=== PATIENT | male | born 1940 | race Caucasian/White ===

== ENCOUNTER 2017-06-03 01:58 | Inpatient (IN) | payer MEDICAID ==
[2017-06-03] VITALS (7 sets, daily range): BP systolic 97–121; BP diastolic 54–89
[~2017-06-03] VITALS: Ht 177.8 cm; Wt 81.6 kg
[2017-06-03] MEDS ORDERED: Albuterol/Ipratropium 3ml neb HHN ONE (02:30)
[2017-06-03] MEDS ORDERED: Acetaminophen 650 MG SUPP RECTAL ONE (02:30)
[2017-06-03 02:33] LABS: HEMATOCRIT 52.6 % (42.0-52.0); HEMOGLOBIN 17.4 G/DL (14.2-18.0); MEAN CORPUSCULAR VOLUME 92 FL (80-99); PLATELET COUNT 257 K/UL (150-450); RED BLOOD COUNT 5.71 M/UL (4.70-6.10); RED CELL DISTRIBUTION WIDTH 12.4 % (11.6-14.8); WHITE BLOOD COUNT 10.4 K/UL (4.8-10.8)
[2017-06-03 02:41] LABS: INR 1.1 (0.9-1.1)
[2017-06-03 02:44] LABS: APPEARANCE,URINE VERY CLOUDY; BILIRUBIN, URINE NEGATIVE (NEGATIVE); COLOR,URINE YELLOW; GLUCOSE, URINE (UA) NEGATIVE (NEGATIVE); KETONES,URINE NEGATIVE (NEGATIVE); LEUKOCYTE ESTERASE ,URINE 3+ (NEGATIVE); NITRITE,URINE POSITIVE (NEGATIVE); PH,URINE 6 (4.5-8.0); PROTEIN,URINE 3+ (NEGATIVE); UROBILINOGEN,URINE NORMAL MG/DL (0.0-1.0)
[2017-06-03] MEDS ORDERED: ATORVASTATIN CA40 MG ORAL (03:08)
[2017-06-03] MEDS ORDERED: VITAMIN C250 MG ORAL (03:08)
[2017-06-03] MEDS ORDERED: COREG6.25 MG ORAL (03:08)
[2017-06-03] MEDS ORDERED: ALTACE5 MG ORAL (03:08)
[2017-06-03] MEDS ORDERED: MULTIVITAMINS1 EAC2 ORAL (03:08)
[2017-06-03] MEDS ORDERED: PLAVIX75 MG ORAL (03:08)
[2017-06-03] MEDS ORDERED: LOVENOX10 MG SUBQ (03:08)
[2017-06-03] MEDS ORDERED: VITAMIN B COMP1 EAC2 ORAL (03:08)
[2017-06-03] MEDS ORDERED: VITAMIN D400 INTLU ORAL (03:08)
[2017-06-03] MEDS ORDERED: ISOSORBIDE MONO30 M1 PO (03:08)
[2017-06-03] MEDS ORDERED: NITROGLYCERIN0.4 MG SL (03:08)
[2017-06-03] MEDS ORDERED: Cefepime HCl 1 GM in D5W 55 ML IVPB ONE (03:15)
[2017-06-03 03:29] LABS: ANION GAP 12 mmol/L (5-15); BLOOD UREA NITROGEN 18 mg/dL (7-18); CALCIUM 7.3 MG/DL (8.5-10.1); CARBON DIOXIDE 27 MMOL/L (21-32); CHLORIDE 105 MMOL/L (98-107); CREATININE 1.1 MG/DL (0.55-1.30); POTASSIUM 3.5 MMOL/L (3.5-5.1); SODIUM 144 MMOL/L (136-145)
[2017-06-03 03:43] LABS: ALANINE AMINOTRANSFERASE 112 U/L (12-78); ALBUMIN 2.8 G/DL (3.4-5.0); ALBUMIN/GLOBULIN RATIO 0.9 (1.0-2.7); ALKALINE PHOSPHATASE 168 U/L (46-116); ASPARTATE AMINO TRANSFERASE 115 U/L (15-37); BILIRUBIN,TOTAL 1.3 MG/DL (0.2-1.0); CKMB 1.8 NG/ML (0.0-3.6); CREATINE KINASE 59 U/L (26-308)
[2017-06-03 03:46] LABS: BILIRUBIN,DIRECT 0.8 MG/DL (0.0-0.3)
[2017-06-03] MEDS ORDERED: Cefepime 1gm vial ONE (03:47)
--- NOTE | 2017-06-03 04:28 | Emergency Room Report ---
History of Present Illness General Chief Complaint: Dyspnea/Respdistress Source: Medical Record, EMS Present Illness HPI This is a 76-year-old male who lives in a retirement. Has history of COPD and PE in the past. He present with chief complaint of altered mental status and fever. Onset today. No nausea vomiting. He is weaker his usual baseline. No cough or congestion. Allergies: Coded Allergies: No Known Allergies (Unverified , 06/03/17) Patient History Past Medical History: see triage record, old chart reviewed Past Surgical History: other Pertinent Family History: none Social History: Denies: drug use Immunizations: other Reviewed Nursing Documentation: PMH: Agreed, PSxH: Agreed Review of Systems Constitutional: Reports: fever, weakness Eye: Denies: eye pain, blurred vision ENT: Denies: ear pain, nose congestion, throat swelling Respiratory: Denies: cough, shortness of breath Cardiovascular: Denies: chest pain, palpitations Gastrointestinal: Denies: abdominal pain, diarrhea, nausea, vomiting Musculoskeletal: Denies: back pain, joint pain Skin: Denies: rash Neurological: Denies: headache, numbness Endocrine: Denies: increased thirst, increased urine Hematologic/Lymphatic: Denies: easy bruising All Other Systems: negative except mentioned in HPI Physical Exam Vital Signs Date Time Temp Pulse Resp B/P (MAP) Pulse Ox O2 Delivery O2 Flow Rate FiO2 06/03/17 01:58 101.5 150 28 114/81 94 Nasal Cannula 4.0 06/03/17 02:25 36 vitals with fever and tachycardia Sp02 EP Interpretation: abnormal General Appearance: moderate distress, lethargic Head: normocephalic, atraumatic Eyes: bilateral eye PERRL, bilateral eye EOMI ENT: hearing grossly normal, dry mucus membranes Neck: full range of motion, supple, no meningismus Respiratory: chest non-tender, rhonchi, wheezing Cardiovascular #1: regular rate, rhythm, no murmur, tachycardia Gastrointestinal: normal bowel sounds, non tender, no mass, no organomegaly, no bruit, non-distended Musculoskeletal: back normal, normal range of motion Neurologic: grossly normal Skin: warm/dry Procedures Critical Care Time Critical Care Time Critical care is mandated in this patient who presented with sepsis from UTI. Patient require my urgent intervention to attenuate the risks of lobar collapse which may lead to cardiovascular collapse and . Critical care time is 35 minutes excluding any reportable procedure. Critical care time included evaluation, multiple reevaluation, looking at old charts, interpreting laboratory and diagnostic data, discussing case with patient and family and consultants, and charting. Medical Decision Making Diagnostic Impression: Primary Impression: Sepsis Qualified Codes: A41.9 - Sepsis, unspecified organism Additional Impressions: UTI (urinary tract infection) Qualified Codes: N30.00 - Acute cystitis without hematuria COPD exacerbation ACS (acute coronary syndrome) Proteinuria Qualified Codes: R80.9 - Proteinuria, unspecified Abnormal LFTs ER Course Patient presents with severe sepsis secondary to UTI. Antibiotics and IV fluid given. He is feeling better. Mental status improved. Sepsis reevaluation: Time: 4:39 AM Vitals: Temperature 98, heart rate 103, respiration 18, blood pressure 136/69, pulse ox 96% Mental status: Improved Cardiovascular: Regular Rhythm Lungs: Good air movement Abdomen: Soft Skin: Not mottled Laboratory Tests Test 06/03/17 02:20 06/03/17 04:31 White Blood Count 10.4 K/UL (4.8-10.8) Red Blood Count 5.71 M/UL (4.70-6.10) Hemoglobin 17.4 G/DL (14.2-18.0) Hematocrit 52.6 % (42.0-52.0) H Mean Corpuscular Volume 92 FL (80-99) Mean Corpuscular Hemoglobin 30.6 PG (27.0-31.0) Mean Corpuscular Hemoglobin Concent 33.2 G/DL (32.0-36.0) Red Cell Distribution Width 12.4 % (11.6-14.8) Platelet Count 257 K/UL (150-450) Mean Platelet Volume 5.8 FL (6.5-10.1) L Neutrophils (%) (Auto) % (45.0-75.0) Lymphocytes (%) (Auto) % (20.0-45.0) Monocytes (%) (Auto) % (1.0-10.0) Eosinophils (%) (Auto) % (0.0-3.0) Basophils (%) (Auto) % (0.0-2.0) Neutrophils % (Manual) Pending Lymphocytes % (Manual) Pending Platelet Estimate Pending Platelet Morphology Pending Prothrombin Time 11.1 SEC (9.30-11.50) Prothromb Time International Ratio 1.1 (0.9-1.1) Activated Partial Thromboplast Time 25 SEC (23-33) Urine Color Yellow Urine Appearance Very cloudy Urine pH 6 (4.5-8.0) Urine Specific [place] 1.010 (1.005-1.035) Urine Protein 3+ (NEGATIVE) H Urine Glucose (UA) Negative (NEGATIVE) Urine Ketones Negative (NEGATIVE) Urine Occult Blood 5+ (NEGATIVE) H Urine Nitrite Positive (NEGATIVE) H Urine Bilirubin Negative (NEGATIVE) Urine Urobilinogen Normal MG/DL (0.0-1.0) Urine Leukocyte Esterase 3+ (NEGATIVE) H Urine RBC 15-20 /HPF (0 - 0) H Urine WBC Tntc /HPF (0 - 0) H Urine Squamous Epithelial Cells Few /LPF (NONE/OCC) Urine Bacteria Many /HPF (NONE) H Sodium Level 144 MMOL/L (136-145) Potassium Level 3.5 MMOL/L (3.5-5.1) Chloride Level 105 MMOL/L (98-107) Carbon Dioxide Level 27 MMOL/L (21-32) Anion Gap 12 mmol/L (5-15) Blood Urea Nitrogen 18 mg/dL (7-18) Creatinine 1.1 MG/DL (0.55-1.30) Estimat Glomerular Filtration Rate mL/min (>60) Glucose Level 106 MG/DL (74-106) Lactic Acid Level 3.20 mmol/L (0.66-2.22) H Pending Calcium Level 7.3 MG/DL (8.5-10.1) L Total Bilirubin 1.3 MG/DL (0.2-1.0) H Direct Bilirubin 0.8 MG/DL (0.0-0.3) H Aspartate Amino Transf (AST/SGOT) 115 U/L (15-37) H Alanine Aminotransferase (ALT/SGPT) 112 U/L (12-78) H Alkaline Phosphatase 168 U/L (46-116) H Total Creatine Kinase 59 U/L (26-308) Creatine Kinase MB 1.8 NG/ML (0.0-3.6) Creatine Kinase MB Relative Index 3.0 Troponin I 0.858 ng/mL (0.000-0.056) Total Protein 6.0 G/DL (6.4-8.2) L Albumin 2.8 G/DL (3.4-5.0) L Globulin 3.2 g/dL Albumin/Globulin Ratio 0.9 (1.0-2.7) L Lab Results Impression labs with elevated lactate EKG Diagnostic Results Rate: tachycardiac Rhythm: NSR ST Segments: no acute changes ASA given to the pt in ED: Yes Rhythm Strip Diag. Results Rhythm Strip Time: 04:41 EP Interpretation: yes Rate: 105 Rhythm: NSR, no PVC's, no ectopy Chest X-Ray Diagnostic Results Chest X-Ray Diagnostic Results : Chest X-Ray Ordered: Yes # of Views/Limited/Complete: 1 View Indication: Chest Pain EP Interpretation: Yes Interpretation: no consolidation, no effusion, no pneumothorax, no acute cardiopulmonary disease Impression: No acute disease Electronically Signed by: Yves Mendoza MD Last Vital Signs Date Time Temp Pulse Resp B/P (MAP) Pulse Ox O2 Delivery O2 Flow Rate FiO2 06/03/17 04:07 98.9 103 20 119/67 95 Nasal Cannula 4.0 06/03/17 02:40 36 Status: improved Disposition: ADMITTED INPATIENT Condition: Serious YVES MENDOZA M.D. Jun 03, 2017 04:28
--- NOTE | 2017-06-03 10:26 | Diagnostic Imaging Report ---
Indication: Chest pain, dyspnea Technique: XRAY Chest 1v Comparison: 03/21/2011 Findings: Patient rotated and leaning to the right. Heart size and mediastinal contours are stable allowing for differences in patient positioning. Heart again noted to be within the upper limits for normal size. There is no focal consolidation, pneumothorax or pleural effusion. Osseous structures demonstrate no acute abnormality. Impression: No radiographic evidence of acute cardiopulmonary disease. No significant interval change compared to the prior exam.
[2017-06-03 10:52] LABS: HEMATOCRIT 44.3 % (42.0-52.0); HEMOGLOBIN 14.8 G/DL (14.2-18.0); MEAN CORPUSCULAR VOLUME 94 FL (80-99); PLATELET COUNT 270 K/UL (150-450); RED BLOOD COUNT 4.73 M/UL (4.70-6.10); RED CELL DISTRIBUTION WIDTH 12.4 % (11.6-14.8)
[2017-06-03 10:56] LABS: WHITE BLOOD COUNT 27.7 K/UL (4.8-10.8)
[2017-06-03 11:19] LABS: ALANINE AMINOTRANSFERASE 101 U/L (12-78)
[2017-06-03] MEDS: Cefepime 1gm/D5W 55ml IVPB SCH ×2 (16:51)
[2017-06-03 17:53] LABS: HEMATOCRIT 42.1 % (42.0-52.0); HEMOGLOBIN 14.1 G/DL (14.2-18.0); MEAN CORPUSCULAR VOLUME 93 FL (80-99); PLATELET COUNT 254 K/UL (150-450); RED BLOOD COUNT 4.51 M/UL (4.70-6.10); RED CELL DISTRIBUTION WIDTH 12.4 % (11.6-14.8)
[2017-06-03 17:54] LABS: WHITE BLOOD COUNT 24.7 K/UL (4.8-10.8)
[2017-06-03] MEDS: Enoxaparin 80mg Inj SUBQ SCH (18:04)
[2017-06-03] MEDS ORDERED: Cefepime 1gm vial IVPB SCH (21:00)
[2017-06-03] MEDS: Carvedilol 6.25mg Tab ORAL SCH (21:06)
[2017-06-03] MEDS: Atorvastatin 80mg tab ORAL SCH (21:06)
[2017-06-04] VITALS (7 sets, daily range): BP systolic 112–155; BP diastolic 62–88
[2017-06-04] MEDS: Cefepime 1gm/D5W 55ml IVPB SCH ×4 (03:30→16:58)
--- NOTE | 2017-06-04 04:45 | History and Physical Report ---
DATE OF ADMISSION: 06/03/2017 REASON FOR ADMISSION: This is one of several admissions to [facility] of this 76-year-old patient because of sepsis and elevated troponin. HISTORY OF PRESENT ILLNESS: The patient is a resident of an extended care facility where he has been in stable condition over the last several months. He is known to have several chronic medical syndromes that will be detailed in the following paragraph, but has been stable on his current medication. One week prior to the present admission, he developed hypotension and fell. He was seen in the facility. Medication for his blood pressure was changed and the patient remained on ramipril 5 mg daily and he remained stable until the day of admission. He developed fever, tachycardia, hypotension, and was transferred by wellness guide to [facility] ER where he was found to have WBC of 27,000 and pyuria as well as elevated troponin and elevated proBNP and the patient was admitted. PAST MEDICAL HISTORY: He denied any surgical antecedent. Medically, he is known to have acute gallstone pancreatitis more than 10 years ago that resolved without cholecystectomy and without recurrence of his pancreatitis or cholecystitis. 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 He has COPD. 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 He has morbid obesity. ALLERGIES: No known drug allergies. MEDICATIONS: In addition to ramipril, the patient is on albuterol sulfate and ipratropium bromide inhalation therapy every 4 hour. He is on ramipril 5 mg daily, clopidogrel 75 mg daily, aspirin 300 mg daily, Lovenox 70 mg subcutaneous daily. Since admission, he has been on cefepime 1 g q.12 h. and Levaquin 750 mg IV piggyback q.24 h. FAMILY HISTORY: Noncontributory. SOCIAL HISTORY: He is single, born in [place], and has been on SSI for many years. 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 HABITS: The patient had a long history of smoking and alcoholism. He had discontinued when he was admitted to the [facility] care facility nearly 17 years ago. REVIEW OF SYSTEMS: The patient currently is unable to give any information regarding his state of health. He answers by head nod, and developed symptoms that may consider early dementia during the last year. PHYSICAL EXAMINATION: VITAL SIGNS: Blood pressure is 121/66, his pulse is 92, respirations 22, and temperature is 98.9. HEENT: Eyes were normal. Pupils were round, equal, and reacting to light. Sclerae were white. Conjunctivae were pink. Extraocular movements were normal. Temporal arteries were palpable bilaterally. There was no bilateral temporal wasting. Visual kang full to confrontation. Neglect sign could not be assessed because of lack of the patient's cooperation. ENT, mucous membranes were not dehydrated. Auditory canals were clear and tympanic membranes could not be visualized. Nasal cavity was not congested. Nasal septum was intact. Soft palate was free of ulcerations. Pharynx was clear from exudate or tonsillar hypertrophy. Uvula reed to phonation. Tongue was moist, midline, and normally papillated. NECK: Supple. There was no goiter. No mass. No lymphadenopathy. JVD was 6 cm from supraclavicular fossa at 90 degrees. Carotid upstroke was 1+. LUNGS: Clear with some crackles at left lower lobe posteriorly only. HEART: PMI was in fifth left intercostal space in midclavicular line and difficult to locate. There was soft S1 and soft S2. There was no murmur. No arrhythmia. There was No S3. There was possible S4 at pulmonary sulcus. There was no pericardial rub. ABDOMEN: Soft, obese, and nontender without organomegaly. There were no masses palpable. There were normal bowel sounds without bruits. There was no guarding. No rebound tenderness. No ascites. No hernia. No CVA tenderness. Liver span was 8 cm, mostly nontender. EXTREMITIES: No cyanosis, no clubbing, and no edema. Extremities were warm. NEUROLOGICAL EXAMINATION: Reflexes in biceps, triceps, and brachioradialis were symmetric and equal. Patellar retinacula were present. Plantars were in flexion. Cranial nerves from II through XII were symmetric and equal. Cerebellar function, gait, [id number] and rapid alternating movements were not performed by the patient. There was no tremor. No nystagmus. No extrapyramidal rigidity. Sensory exam to pinprick, cotton touch, position, and motor strength could not be assessed because of lack of patient's cooperation, but presumed normal. LABORATORY DATA: Hemoglobin is 14.8, hematocrit was 44.3 with MCV of 94, WBC of 27.7, and platelets are 270,000. His BUN and creatinine is 18 and 1.1 respectively. His sodium is 144, potassium 3.5, chloride 105 and CO2 is 27. His calcium is 7.3. SGOT, SGPT, and alkaline phosphatase are all elevated. Troponin is 0.858. ProBNP is 24,186. His lactic acid in the ER was 3.2 and on admission was 2.4. His current troponin is 0.490. His chest x-ray could not be seen. His chest exam revealed no evidence of cardiopulmonary disease. The previous exam was in March 2011. Urinalysis showed too numerous to count WBCs, 15 to 20 RBCs, urine occult blood positive 5+, ketones negative, glucose negative, nitrite positive, and leukocyte esterase 3+ positive. IMPRESSION: 1. The patient has urosepsis. Abdominal and pelvic ultrasound will be requested. The patient will be started on cefepime 1 g IV piggyback q.12 h. and Levaquin 750 mg IV piggyback q.24 h. Infectious Disease human capital consultant will be called to assist in the management of this case. 2. The patient has congestive heart failure. His ELDER inhibitor has been increased. Loop diuretic Bumex will be given q.12 h. The patient is on long-term nitrate, and a 2D echo will be ordered. 3. The patient has acute myocardial injury. He is now on Lovenox 1 mg/kg q.12 h., aspirin 300 mg daily, clopidogrel 75 mg daily, and Lovenox 1 mg q.12 h. 4. The patient has elevated liver function tests of unknown cause with mildly hepatic congestion secondary to right-sided failure with pelvic ultrasound. Cardiology consult and Infectious Disease consult were called to assist in management of this case. Modesta Mulligan M.D. DR: EVENS JOB#: [id number] CC:
[2017-06-04] MEDS: Bumetanide 2.5mg/10ml Inj IVP SCH (09:47)
[2017-06-04] MEDS: Carvedilol 6.25mg Tab ORAL SCH (09:48)
[2017-06-04] MEDS: Imdur 30mg tab ORAL SCH (09:48)
[2017-06-04] MEDS: Enoxaparin 80mg Inj SUBQ SCH ×2 (09:49→21:48)
[2017-06-04] MEDS: Vitamin D 1000 IU Tab ORAL SCH (10:11)
[2017-06-04 15:30] LABS: HEMATOCRIT 37.6 % (42.0-52.0); HEMOGLOBIN 12.4 G/DL (14.2-18.0); MEAN CORPUSCULAR VOLUME 95 FL (80-99); PLATELET COUNT 260 K/UL (150-450); RED BLOOD COUNT 3.97 M/UL (4.70-6.10); RED CELL DISTRIBUTION WIDTH 12.9 % (11.6-14.8); WHITE BLOOD COUNT 18.5 K/UL (4.8-10.8)
[2017-06-04 15:34] LABS: ANION GAP 6 mmol/L (5-15); BLOOD UREA NITROGEN 26 mg/dL (7-18); CARBON DIOXIDE 31 MMOL/L (21-32); CHLORIDE 107 MMOL/L (98-107); POTASSIUM 3.3 MMOL/L (3.5-5.1); SODIUM 144 MMOL/L (136-145)
[2017-06-04] MEDS: Atorvastatin 80mg tab ORAL SCH (21:46)
[2017-06-04] MEDS: Carvedilol 12.5mg tab ORAL SCH (21:46)
--- NOTE | 2017-06-05 01:30 | Progress Note ---
DATE: 06/04/2017 SUBJECTIVE: The patient is awake, alert and afebrile with intermittent cardiac arrhythmia with multiple PVCs or APCs. PHYSICAL EXAMINATION: VITAL SIGNS: Blood pressure is 155/62, his pulse is 98, respirations are 18, and temperature 97.1. HEENT: Eyes were normal. ENT, mucous membranes were moist and intact. NECK: Supple with no JVD without lymph nodes. LUNGS: Clear. HEART: Normal sounds with regular beats, however, from [id number] with an irregular heart beat with and without delay. ABDOMEN: Soft, obese, and nontender with normal bowel sounds. EXTREMITIES: Warm without cyanosis, clubbing, or edema. LABORATORY DATA: Hemoglobin is 12.4, hematocrit 37.6, MCV of 95, WBC 18.5 and platelets is 260. His BUN and creatinine are 26 and 1.0 respectively. His sodium is 144, potassium 3.3, chloride 107, and CO2 is 33. Urine culture showed no growth. positive for gram-negative rods. IMPRESSION: The patient has gram-negative septicemia, however, he does not have tachycardia, malaise, or fever. His leukocytosis declined from 27.7 to 18.5. The patient currently is on 750 mg IV piggyback q.24 hours and cefepime 1 g IV piggyback q.12 hours. He is afebrile without tachycardia, without malaise, and with normal appetite. We will await for the result of the blood culture. Repeat laboratory tests will be done in the morning, however, now he is better controlled. The patient's arrhythmia mostly is secondary to his congestive heart failure. Carvedilol will be increased from 6.25 mg to 12.5 mg q.12 hours. Repeat laboratory tests will be done in the morning. Modesta Mulligan M.D. DR: EVENS JOB#: [id number] CC:
[2017-06-05] MEDS: Cefepime 1gm/D5W 55ml IVPB SCH ×4 (03:57→16:43)
[2017-06-05 03:59] VITALS: BP_SYST 127; BP_SYST 153; BP_DIAS 67; BP_DIAS 70
[2017-06-05 08:00] VITALS: BP 132/72
[2017-06-05 08:52] LABS: HEMATOCRIT 40.1 % (42.0-52.0); MEAN CORPUSCULAR VOLUME 95 FL (80-99); PLATELET COUNT 251 K/UL (150-450); RED BLOOD COUNT 4.23 M/UL (4.70-6.10); RED CELL DISTRIBUTION WIDTH 12.7 % (11.6-14.8); WHITE BLOOD COUNT 11.5 K/UL (4.8-10.8)
[2017-06-05 09:14] LABS: ANION GAP 0 mmol/L (5-15); BLOOD UREA NITROGEN 27 mg/dL (7-18); CALCIUM 7.5 MG/DL (8.5-10.1); CARBON DIOXIDE 28 MMOL/L (21-32); CHLORIDE 109 MMOL/L (98-107); CREATININE 0.7 MG/DL (0.55-1.30); POTASSIUM 3.4 MMOL/L (3.5-5.1); SODIUM 136 MMOL/L (136-145)
[2017-06-05] MEDS: Vitamin D 1000 IU Tab ORAL SCH (10:44)
[2017-06-05] MEDS: Imdur 30mg tab ORAL SCH (10:44)
[2017-06-05] MEDS: Bumetanide 2.5mg/10ml Inj IVP SCH (10:45)
[2017-06-05] MEDS: Carvedilol 12.5mg tab ORAL SCH ×2 (10:45→21:14)
[2017-06-05] MEDS: Enoxaparin 80mg Inj SUBQ SCH ×2 (10:47→21:15)
[2017-06-05 12:00] VITALS: BP 147/78
[2017-06-05 16:00] VITALS: BP 133/77
[2017-06-05 20:00] VITALS: BP 143/65
[2017-06-05] MEDS: Atorvastatin 80mg tab ORAL SCH (21:14)
[2017-06-05] MEDS ORDERED: Tubing IV Secondary IV ONE (22:26)
[2017-06-06] VITALS: BP 117/52
[2017-06-06] MEDS ORDERED: Potassium Chloride 20 MEQ in NS 275 ML IVPB ONE (00:30)
[2017-06-06] MEDS ORDERED: Potassium Chloride 10 MEQ in NS 110 ML IVPB SCH (01:00)
[2017-06-06 04:00] VITALS: BP 122/55
[2017-06-06] MEDS: Cefepime 1gm/D5W 55ml IVPB SCH ×4 (04:49→15:09)
[2017-06-06] MEDS ORDERED: Cefepime 1gm vial ONE (05:26)
--- NOTE | 2017-06-06 05:30 | Progress Note ---
DATE: 06/05/2017 SUBJECTIVE: The patient is awake, alert, afebrile, hemodynamically stable, and properly responsive. OBJECTIVE: VITAL SIGNS: Blood pressure is 143/65, pulse is 90, respirations 19, and temperature 98.2 degrees. HEENT: Eyes were normal. ENT, mucous membranes were moist and intact. NECK: Supple with no JVD, without lymph nodes. LUNGS: Clear. HEART: Normal sounds with regular heart beats. There is no tachycardia at rest. PVC and APC . ABDOMEN: Soft and nontender with normal bowel sounds. Abdomen is obese. EXTREMITIES: Warm without cyanosis, clubbing, or edema. LABORATORY DATA: His hemoglobin is 13.0, hematocrit 40.1 with MCV of 95, WBC of 11.5, and platelet was 251. WBC was 27,700 on 06/03/2017 and was 24,000 on the same day, declined to 18.5 yesterday and today 11.5. His BUN and creatinine 27 and 0.7 respectively. His sodium was 136, potassium 3.4, chloride 109, and CO2 is 28. His glucose is 89. His calcium is 7.5. His magnesium is 2.1. His proBNP was 23,641 on 06/03/2017, it is 3155 today. IMPRESSION: The patient has ischemic cardiomyopathy associated with cardiac arrhythmia of APC and PVC, and elevated proBNP of nearly 24,000 and WBC dropped from 27 to 11 within 48 hours. The BNP dropped from 24,000 to 3000 within 48 hours. The patient hemodynamically remained stable. We will continue with the same treatment. Repeat laboratory tests will be done in the morning. The patient was found to have gram-negative bacilli in four out of four tube of blood cultures. His WBC on admission was too numerous to count. Repeat laboratory and urinalysis will be done in the morning. Modesta Mulligan M.D. DR: Valeriano JOB#: [id number] CC:
[2017-06-06 06:17] LABS: ANION GAP 3 mmol/L (5-15); BLOOD UREA NITROGEN 20 mg/dL (7-18); CALCIUM 7.1 MG/DL (8.5-10.1); CARBON DIOXIDE 31 MMOL/L (21-32); CHLORIDE 105 MMOL/L (98-107); CREATININE 0.6 MG/DL (0.55-1.30); POTASSIUM 3.4 MMOL/L (3.5-5.1); SODIUM 139 MMOL/L (136-145)
[2017-06-06 06:22] LABS: HEMATOCRIT 36.3 % (42.0-52.0); HEMOGLOBIN 11.8 G/DL (14.2-18.0); MEAN CORPUSCULAR VOLUME 94 FL (80-99); PLATELET COUNT 229 K/UL (150-450); RED BLOOD COUNT 3.86 M/UL (4.70-6.10); RED CELL DISTRIBUTION WIDTH 12.3 % (11.6-14.8); WHITE BLOOD COUNT 8.1 K/UL (4.8-10.8)
[2017-06-06 06:32] LABS: APPEARANCE,URINE CLEAR; BILIRUBIN, URINE NEGATIVE (NEGATIVE); GLUCOSE, URINE (UA) NEGATIVE (NEGATIVE); KETONES,URINE NEGATIVE (NEGATIVE); LEUKOCYTE ESTERASE ,URINE 1+ (NEGATIVE); NITRITE,URINE NEGATIVE (NEGATIVE); PH,URINE 5 (4.5-8.0); PROTEIN,URINE 1+ (NEGATIVE); UROBILINOGEN,URINE NORMAL MG/DL (0.0-1.0)
[2017-06-06 06:59] LABS: COLOR,URINE YELLOW
[2017-06-06 08:00] VITALS: BP 93/51
[2017-06-06] MEDS: Carvedilol 12.5mg tab ORAL SCH ×2 (09:00→21:01)
[2017-06-06] MEDS: Imdur 30mg tab ORAL SCH (09:00)
[2017-06-06] MEDS: Bumetanide 2.5mg/10ml Inj IVP SCH (09:00)
[2017-06-06] MEDS: Vitamin D 1000 IU Tab ORAL SCH (10:45)
[2017-06-06] MEDS: Enoxaparin 80mg Inj SUBQ SCH ×2 (10:51→21:02)
--- NOTE | 2017-06-06 10:55 | Diagnostic Imaging Report ---
Indication: Pain Technique: Giraldo-scale and duplex images of the upper abdomen were obtained Comparison: none Findings: Gallbladder demonstrates gallstones. No gallbladder wall thickening or pericholecystic fluid Sonographic Taylor's sign is negative. Common bile duct measures 5 mm in diameter. No intrahepatic biliary ductal dilatation. Liver demonstrates normal echogenicity, no focal abnormality. Portal vein and hepatic veins are patent. Pancreas is unremarkable. Spleen is unremarkable. Left kidney measures 11.3 cm in length. Right kidney measures 11 cm length. Both kidneys demonstrate normal echogenicity. There is no hydronephrosis. No focal abnormality . Non-aneurysmal abdominal aorta . Impression: Cholelithiasis. Negative for dilated ducts No other acute or significant abnormality demonstrated
--- NOTE | 2017-06-06 10:57 | Diagnostic Imaging Report ---
Indication: Pain Technique: Grayscale and duplex images of the bladder and prostate Comparison: none Findings: Bladder is nondistended, unremarkable. Bilateral ureteral jets are demonstrated. Prostate volume is 15 mL Impression: Negative
[2017-06-06 12:00] VITALS: BP 120/79
--- NOTE | 2017-06-06 18:51 | Cardiology Report ---
APPROVED REPORT EXAM: Two-dimensional and M-mode echocardiogram with Doppler and color Doppler. INDICATION Abnormal cardiac function study M-Mode DIMENSIONS IVSd1.1 (0.7-1.1cm)Left Atrium (MM)3.8 (1.6-4.0cm) LVDd5.4 (3.5-5.6cm)Aortic Root3.0 (2.0-3.7cm) PWd0.9 (0.7-1.1cm)Aortic Cusp Exc.2.0 (1.5-2.0cm) LVDs3.9 (2.5-4.0cm) PWs1.2 cm Technically difficult study due to poor acoustical windows. Normal left ventricular chamber size, systolic function and wall motion. Left ventricular ejection fraction estimated to be 60-65%. No evidence of left ventricular hypertrophy. No evidence of pericardial or pleural effusion. Right cardiac chamber sizes are within normal limits. Moderate left atrial enlargement by 2D. Focal aortic valve sclerosis with adequate cusp excursion. Thickened mitral valve leaflets with normal excursion. Normal mitral annulus and aortic root. Pulmonic valve not well visualized. Normal tricuspid valve structure. IVC is normal in size and collapsible with respiration. A color flow and spectral Doppler study was performed and revealed: Trace aortic regurgitation. No mitral regurgitation. Mitral diastolic velocities suggest reduced left ventricular relaxation c/w diastolic dysfunction grade 1. No tricuspid regurgitation. Pulmonic regurgitation present.
--- NOTE | 2017-06-06 19:25 | Cardiology Report ---
APPROVED REPORT EKG Measurement Heart [id number] NM 192P [id number] Atrial fibrillation Right bundle branch block Inferior infarct, age undetermined Anterolateral infarct, age undetermined Abnormal ECG
[2017-06-06 20:00] VITALS: BP 151/62
[2017-06-06] MEDS: Atorvastatin 80mg tab ORAL SCH (21:00)
[2017-06-07] VITALS: BP 140/71
[2017-06-07 04:00] VITALS: BP 114/68
[2017-06-07] MEDS: Cefepime 1gm/D5W 55ml IVPB SCH ×2 (04:00)
[2017-06-07] MEDS ORDERED: Cefepime 1gm vial ONE (04:36)
[2017-06-07 06:51] LABS: BASOPHILS % (AUTO) 0.2 % (0.0-2.0); EOSINOPHILS % (AUTO) 1.3 % (0.0-3.0); HEMATOCRIT 37.6 % (42.0-52.0); HEMOGLOBIN 12.8 G/DL (14.2-18.0); LYMPHOCYTES % (AUTO) 18.3 % (20.0-45.0); MEAN CORPUSCULAR VOLUME 94 FL (80-99); MONOCYTES % (AUTO) 6.3 % (1.0-10.0); NEUTROPHILS % (AUTO) 73.9 % (45.0-75.0); PLATELET COUNT 217 K/UL (150-450); RED BLOOD COUNT 4.02 M/UL (4.70-6.10); RED CELL DISTRIBUTION WIDTH 11.9 % (11.6-14.8); WHITE BLOOD COUNT 6.7 K/UL (4.8-10.8)
[2017-06-07 08:00] VITALS: BP 110/69
[2017-06-07 08:11] LABS: ANION GAP 6 mmol/L (5-15); BLOOD UREA NITROGEN 16 mg/dL (7-18); CALCIUM 7.3 MG/DL (8.5-10.1); CARBON DIOXIDE 30 MMOL/L (21-32); CHLORIDE 105 MMOL/L (98-107); CREATININE 0.6 MG/DL (0.55-1.30); POTASSIUM 3.6 MMOL/L (3.5-5.1); SODIUM 141 MMOL/L (136-145)
[2017-06-07] MEDS: Carvedilol 12.5mg tab ORAL SCH (08:17)
[2017-06-07] MEDS: Vitamin D 1000 IU Tab ORAL SCH (08:17)
[2017-06-07] MEDS: Imdur 30mg tab ORAL SCH (08:17)
[2017-06-07] MEDS: Bumetanide 2.5mg/10ml Inj IVP SCH (08:19)
[2017-06-07] MEDS: Enoxaparin 80mg Inj SUBQ SCH (09:06)
--- NOTE | 2017-06-07 10:15 | Progress Note ---
DATE: 06/06/2017 NOTE: POOR AUDIO SUBJECTIVE: The patient is awake, alert, afebrile, and hemodynamically stable. He denied any chest pain, shortness of breath, palpitations, or dizziness. PHYSICAL EXAMINATION: VITAL SIGNS: Blood pressure 161/62, his pulse is 82, respirations 16, temperature 97.9 degrees, this morning was 93/61. HEENT: Eyes were normal. ENT, mucous membranes were moist and intact. NECK: Supple with no JVD, without lymph nodes. LUNGS: Clear. HEART: Normal sounds with regular beats. There is no S3, S4, or pericardial rub. ABDOMEN: Soft and nontender with normal bowel sounds. EXTREMITIES: Warm without cyanosis, clubbing, or edema. LABORATORY DATA: Hemoglobin is 11.8, hematocrit 36.3 with MCV of 94, WBC of 8.1, and platelets of 229,000. WBC was 11.5 yesterday and 27.7 on 05/28/2017. His BUN and creatinine are 20 and 0.6, respectively. His sodium is 139, potassium 3.4, chloride 105, and CO2 is 31. His glucose is 97 and his calcium is 7.1. The patient has gram-negative bacilli and positive blood culture in 4/4 tubes. was negative. MRSA is negative influenza A and B. negative as well. Urine culture was negative. Urinalysis shows WBC, which was too numerous to count on 05/28/2017 of 5 to 10. Today, protein is only 1+, occult blood is negative, urine nitrite is negative, and urine leukocyte esterase is 1+ today. IMPRESSION AND PLAN: Nearly completely resolved gram-negative septicemia. Congestive heart failure, clinically and markedly improved. Repeat laboratory tests will be done in the morning. Modesta Mulligan M.D. DR: Mariana JOB#: [id number] CC:
[2017-06-07 12:00] VITALS: BP 102/59
[2017-06-07] MEDS ORDERED: LEVOFLOXAC750 MG/150 IVPB (13:04)
[2017-06-07] MEDS ORDERED: CEFEPIME-D1 GM/50 ML IVPB (13:06)
[2017-06-07] MEDS ORDERED: Tubing IV Secondary IV ONE (14:04)
--- NOTE | 2017-06-08 14:47 | Discharge Summary ---
Discharge Summary Hospital Course Date of Admission Jun 03, 2017 at 13:39 Date of Discharge Jun 07, 2017 at 14:05 Admitting Diagnosis sepsis, uti, copd HPI Chris Harden is a 76 year old male who was admitted on Jun 03, 2017 at 13:39 for Sepsis,Urinary Tract Infection, Hospital Course [id number] Discharge Discharge Disposition Patient was discharged to SNF/Subacute Facility(03) Discharge Diagnoses: Iveth Drew NP Jun 08, 2017 14:47
--- NOTE | 2017-06-08 21:30 | Discharge Summary 2 SIG ---
DATE OF ADMISSION: 06/03/2017 DATE OF DISCHARGE: 06/07/2017 BRIEF HOSPITAL COURSE: The patient is a 76-year-old male, who is a resident of an extended care facility where he has been in stable condition over the last several months. He is known to have several chronic medical conditions. A week prior to admission, he developed hypotension and fell. Medication for blood pressure was changed. He developed fever, tachycardia, hypotension and was transferred by paramedics to [facility] ER where he was found to have WBC of 27,000 and pyuria as well as elevated troponin and elevated ProBNP. He was then admitted for urine infection and was started on cefepime and Levaquin. ELDER inhibitor was increased and was given loop diuretic Bumex. Troponin was 0.858. The patient has acute myocardial injury and was given Lovenox, aspirin, and Plavix. Leukocytosis improved. He was continued on antibiotics. Carvedilol was increased. The patient had arrhythmia most likely secondary to his congestive heart failure and cardiomyopathy. He remained hemodynamically stable. C. diff was negative. Influenza A and B screen was negative. Urine culture did not isolate any growth. He was eventually discharged back to [facility]. FINAL DIAGNOSES: 1. Gram-negative septicemia, resolved. 2. Acute on chronic diastolic congestive heart failure. 3. Ischemic cardiomyopathy. 4. Acute myocardial injury. 5. Elevated liver transaminases. DISPOSITION: The patient was discharged back to [facility]. Modesta Mulligan M.D. I have been assigned to dictate discharge summary on this account and I was not involved in the patient's management. Iveth Drew N.P. DR: CARINE JOB#: [id number] CC:
== END 2017-06-07 14:05 | DRG 720 ==
LOC: EDBD 01:58 → EMR 03:00 → EDBEDREQ 13:17 → 2E 13:39
DX: A41.50 Gram-negative sepsis, unspecified (principal); I50.33 Acute on chronic diastolic (congestive) heart failure; I24.9 Acute ischemic heart disease, unspecified; J44.1 Chronic obstructive pulmonary disease with (acute) exacerbation; E66.01 Morbid (severe) obesity due to excess calories; N39.0 Urinary tract infection, site not specified; I25.5 Ischemic cardiomyopathy; R74.0 Nonspecific elevation of levels of transaminase and lactic acid dehydrogenase [LDH]; Z68.25 Body mass index [BMI] 25.0-25.9, adult; Z87.891 Personal history of nicotine dependence; Z79.82 Long term (current) use of aspirin; Z91.81 History of falling
CPT/HCPCS: 36415; 71010; 76700; 76856; 76857; 80048; 80053; 81001; 81003; 82248; 82550; 82553; 83605; 83735; 83880; 84450; 84460; 84484; 85007; 85025; 85610; 85730; 86710; 87040; 87081; 87086; 87181; 87324; 93005; 93306; 94640; 94664; 99291; J7620; J8499

== ENCOUNTER 2019-07-21 10:37 | Inpatient (IN) | payer MEDICAID ==
[~2019-07-21] VITALS: Ht 165.1 cm; Wt 94.3 kg
[~2019-07-21 10:37] MED LIST: ALTACE5 MG ORAL; ATORVASTATIN CA40 MG ORAL; CEFEPIME-D1 GM/50 ML IVPB; COREG6.25 MG ORAL; ISOSORBIDE MONO30 M1 PO; LEVOFLOXAC750 MG/150 IVPB; LOVENOX10 MG SUBQ; MULTIVITAMINS1 EAC2 ORAL; NITROGLYCERIN0.4 MG SL; PLAVIX75 MG ORAL; VITAMIN B COMP1 EAC2 ORAL; VITAMIN C250 MG ORAL; VITAMIN D400 INTLU ORAL
[2019-07-21 10:51] VITALS: BP 148/87
--- NOTE | 2019-07-21 11:07 | Emergency Room Report ---
History of Present Illness General Chief Complaint: Upper Respiratory Illness Source: EMS Present Illness HPI Patient presents with complaints of shortness of breath and cough Patient himself is a poor historian history is limited from his standpoint however nursing facility Reports increased cough congestion possible low-grade fever There was no reports of vomiting or diarrhea There was no reports of any recent travel as the patient had was having more congestion He was sent to the emergency room Allergies: Coded Allergies: No Known Allergies (Unverified , 06/03/17) Patient History Limited by: medical condition Past Medical History: see triage record Reviewed Nursing Documentation: PMH: Agreed; PSxH: Agreed Nursing Documentation-PMH Hx Cardiac Problems: Yes - heart failure, [place] Hx Hypertension: Yes Hx COPD: Yes Hx Cancer: No Hx Gastrointestinal Problems: No Review of Systems All Other Systems: limited - Other than the ones mentioned in the history of present illness all others are reviewed however they do stay limited due to the patient's mental status Physical Exam Vital Signs Date Time Temp Pulse Resp B/P (MAP) Pulse Ox O2 Delivery O2 Flow Rate FiO2 07/21/19 10:25 97.9 87 24 188/92 (124) 94 Room Air Sp02 EP Interpretation: reviewed, normal General Appearance: no apparent distress Head: normocephalic, atraumatic Eyes: bilateral eye PERRL, bilateral eye EOMI ENT: EOM grossly intact, normal pharynx Neck: supple Respiratory: no retraction, no accessory muscle use, crackles - bilaterally Cardiovascular #1: regular rate, rhythm Gastrointestinal: non tender, soft Musculoskeletal: normal inspection Neurologic: alert, other - Some underlying confusion Skin: no rash Lymphatic: no adenopathy Medical Decision Making Diagnostic Impression: Primary Impression: UTI (urinary tract infection) Additional Impression: Dyspnea ER Course Patient is a fairly complex patient with multiple differential to consideration including but not limited to cardiac cardiopulmonary and vascular emergencies Patient's blood work reveals mildly elevated BNP levels x-ray does not show any obvious acute process Flu symptoms also still need to be considered patient has further hydration initiated Urine sample also shows evidence of UTI and patient admitted for further care Labs Test 07/21/19 11:10 07/21/19 11:40 07/22/19 05:35 07/23/19 05:38 White Blood Count 5.9 K/UL (4.8-10.8) 6.5 K/UL (4.8-10.8) 7.3 K/UL (4.8-10.8) Red Blood Count 4.91 M/UL (4.70-6.10) 5.20 M/UL (4.70-6.10) 4.92 M/UL (4.70-6.10) Hemoglobin 15.6 G/DL (14.2-18.0) 16.3 G/DL (14.2-18.0) 15.2 G/DL (14.2-18.0) Hematocrit 45.6 % (42.0-52.0) 48.4 % (42.0-52.0) 46.7 % (42.0-52.0) Mean Corpuscular Volume 93 FL (80-99) 93 FL (80-99) 95 FL (80-99) Mean Corpuscular Hemoglobin 31.8 PG (27.0-31.0) 31.2 PG (27.0-31.0) 30.9 PG (27.0-31.0) Mean Corpuscular Hemoglobin Concent 34.3 G/DL (32.0-36.0) 33.6 G/DL (32.0-36.0) 32.5 G/DL (32.0-36.0) Red Cell Distribution Width 12.2 % (11.6-14.8) 12.2 % (11.6-14.8) 12.4 % (11.6-14.8) Platelet Count 227 K/UL (150-450) 244 K/UL (150-450) 234 K/UL (150-450) Mean Platelet Volume 6.0 FL (6.5-10.1) 5.6 FL (6.5-10.1) 5.3 FL (6.5-10.1) Neutrophils (%) (Auto) 57.7 % (45.0-75.0) 61.3 % (45.0-75.0) 75.6 % (45.0-75.0) Lymphocytes (%) (Auto) 23.5 % (20.0-45.0) 21.0 % (20.0-45.0) 15.2 % (20.0-45.0) Monocytes (%) (Auto) 11.4 % (1.0-10.0) 12.6 % (1.0-10.0) 8.2 % (1.0-10.0) Eosinophils (%) (Auto) 6.1 % (0.0-3.0) 4.3 % (0.0-3.0) 0.1 % (0.0-3.0) Basophils (%) (Auto) 1.3 % (0.0-2.0) 0.9 % (0.0-2.0) 1.0 % (0.0-2.0) Sodium Level 146 MMOL/L (136-145) 147 MMOL/L (136-145) 145 MMOL/L (136-145) Potassium Level 4.1 MMOL/L (3.5-5.1) 3.8 MMOL/L (3.5-5.1) 4.2 MMOL/L (3.5-5.1) Chloride Level 108 MMOL/L (98-107) 109 MMOL/L (98-107) 108 MMOL/L (98-107) Carbon Dioxide Level 31 MMOL/L (21-32) 28 MMOL/L (21-32) 33 MMOL/L (21-32) Anion Gap 7 mmol/L (5-15) 10 mmol/L (5-15) 4 mmol/L (5-15) Blood Urea Nitrogen 21 mg/dL (7-18) 20 mg/dL (7-18) 28 mg/dL (7-18) Creatinine 0.7 MG/DL (0.55-1.30) 0.7 MG/DL (0.55-1.30) 1.1 MG/DL (0.55-1.30) Estimat Glomerular Filtration Rate > 60 mL/min (>60) > 60 mL/min (>60) > 60 mL/min (>60) Glucose Level 122 MG/DL (74-106) 98 MG/DL (74-106) 151 MG/DL (74-106) Lactic Acid Level 1.00 mmol/L (0.4-2.0) Calcium Level 8.6 MG/DL (8.5-10.1) 9.1 MG/DL (8.5-10.1) 8.5 MG/DL (8.5-10.1) Total Bilirubin 0.6 MG/DL (0.2-1.0) 0.6 MG/DL (0.2-1.0) Aspartate Amino Transf (AST/SGOT) 25 U/L (15-37) 25 U/L (15-37) Alanine Aminotransferase (ALT/SGPT) 22 U/L (12-78) 21 U/L (12-78) Alkaline Phosphatase 65 U/L (46-116) 67 U/L (46-116) Total Creatine Kinase 149 U/L (26-308) Creatine Kinase MB 2.6 NG/ML (0.0-3.6) Creatine Kinase MB Relative Index 1.7 Troponin I 0.109 ng/mL (0.000-0.056) 0.153 ng/mL (0.000-0.056) 0.242 ng/mL (0.000-0.056) Pro-B-Type Natriuretic Peptide 2063 pg/mL (0-125) 5551 pg/mL (0-125) Total Protein 6.2 G/DL (6.4-8.2) 6.6 G/DL (6.4-8.2) Albumin 3.2 G/DL (3.4-5.0) 3.4 G/DL (3.4-5.0) Globulin 3.0 g/dL Albumin/Globulin Ratio 1.1 (1.0-2.7) Urine Color Yellow Urine Appearance Slightly cloudy Urine pH 5 (4.5-8.0) Urine Specific Todd 1.025 (1.005-1.035) Urine Protein 2+ (NEGATIVE) Urine Glucose (UA) Negative (NEGATIVE) Urine Ketones 1+ (NEGATIVE) Urine Blood 2+ (NEGATIVE) Urine Nitrite Positive (NEGATIVE) Urine Bilirubin Negative (NEGATIVE) Urine Urobilinogen Normal MG/DL (0.0-1.0) Urine Leukocyte Esterase 1+ (NEGATIVE) Urine RBC 2-4 /HPF (0 - 0) Urine WBC 15-20 /HPF (0 - 0) Urine Squamous Epithelial Cells Occasional /LPF Urine Bacteria Many /HPF (NONE) Direct Bilirubin < 0.1 MG/DL (0.0-0.3) Magnesium Level 2.1 MG/DL (1.8-2.4) Amylase Level 29 U/L (25-115) Lipase 107 U/L (73-393) Test 07/24/19 03:40 Sodium Level 142 MMOL/L (136-145) Potassium Level 5.1 MMOL/L (3.5-5.1) Chloride Level 105 MMOL/L (98-107) Carbon Dioxide Level 31 MMOL/L (21-32) Anion Gap 6 mmol/L (5-15) Blood Urea Nitrogen 36 mg/dL (7-18) Creatinine 1.1 MG/DL (0.55-1.30) Estimat Glomerular Filtration Rate > 60 mL/min (>60) Glucose Level 128 MG/DL (74-106) Calcium Level 8.7 MG/DL (8.5-10.1) Total Bilirubin 0.3 MG/DL (0.2-1.0) Aspartate Amino Transf (AST/SGOT) 22 U/L (15-37) Alanine Aminotransferase (ALT/SGPT) 27 U/L (12-78) Alkaline Phosphatase 60 U/L (46-116) Troponin I 0.133 ng/mL (0.000-0.056) Total Protein 6.5 G/DL (6.4-8.2) Albumin 3.1 G/DL (3.4-5.0) Globulin 3.4 g/dL Albumin/Globulin Ratio 0.9 (1.0-2.7) Triglycerides Level 69 MG/DL (30-150) Cholesterol Level 112 MG/DL (< 200) LDL Cholesterol 61 mg/dL (<100) HDL Cholesterol 44 MG/DL (40-60) Cholesterol/HDL Ratio 2.5 (3.3-4.4) Rhythm Strip Diag. Results EP Interpretation: yes Rate: 77 Rhythm: NSR, no PVC's, no ectopy Last Vital Signs Date Time Temp Pulse Resp B/P (MAP) Pulse Ox O2 Delivery O2 Flow Rate FiO2 07/21/19 10:51 97.9 80 24 148/87 94 Room Air Status: improved Disposition: ADMITTED INPATIENT Condition: Serious Shanthi Plascencia DO Jul 21, 2019 11:07
[2019-07-21 11:43] LABS: BASOPHILS % (AUTO) 1.3 % (0.0-2.0); EOSINOPHILS % (AUTO) 6.1 % (0.0-3.0); HEMATOCRIT 45.6 % (42.0-52.0); HEMOGLOBIN 15.6 G/DL (14.2-18.0); LYMPHOCYTES % (AUTO) 23.5 % (20.0-45.0); MEAN CORPUSCULAR VOLUME 93 FL (80-99); MONOCYTES % (AUTO) 11.4 % (1.0-10.0); NEUTROPHILS % (AUTO) 57.7 % (45.0-75.0); PLATELET COUNT 227 K/UL (150-450); RED BLOOD COUNT 4.91 M/UL (4.70-6.10); RED CELL DISTRIBUTION WIDTH 12.2 % (11.6-14.8); WHITE BLOOD COUNT 5.9 K/UL (4.8-10.8)
[2019-07-21 11:51] LABS: ANION GAP 7 mmol/L (5-15); BLOOD UREA NITROGEN 21 mg/dL (7-18); CALCIUM 8.6 MG/DL (8.5-10.1); CARBON DIOXIDE 31 MMOL/L (21-32); CHLORIDE 108 MMOL/L (98-107); CREATININE 0.7 MG/DL (0.55-1.30); POTASSIUM 4.1 MMOL/L (3.5-5.1); SODIUM 146 MMOL/L (136-145)
--- NOTE | 2019-07-21 12:02 | Diagnostic Imaging Report ---
. Indication: Chest pain, cough Technique: One view of the chest Comparison: 06/03/2017 Findings: No acute infiltrates, effusions, or congestion. Tortuous calcified aorta. Normal heart size. Upper mediastinum unremarkable. No significant interim change Impression: No acute process.
[2019-07-21 12:03] LABS: ALANINE AMINOTRANSFERASE 22 U/L (12-78); ALBUMIN 3.2 G/DL (3.4-5.0); ALBUMIN/GLOBULIN RATIO 1.1 (1.0-2.7); ALKALINE PHOSPHATASE 65 U/L (46-116); ASPARTATE AMINO TRANSFERASE 25 U/L (15-37); BILIRUBIN,TOTAL 0.6 MG/DL (0.2-1.0); CKMB 2.6 NG/ML (0.0-3.6); CREATINE KINASE 149 U/L (26-308)
[2019-07-21 12:10] VITALS: BP 145/84
[2019-07-21 13:00] LABS: APPEARANCE,URINE SLIGHTLY CLOUDY; BILIRUBIN, URINE NEGATIVE (NEGATIVE); GLUCOSE, URINE (UA) NEGATIVE (NEGATIVE); KETONES,URINE 1+ (NEGATIVE); LEUKOCYTE ESTERASE ,URINE 1+ (NEGATIVE); NITRITE,URINE POSITIVE (NEGATIVE); PH,URINE 5 (4.5-8.0); PROTEIN,URINE 2+ (NEGATIVE); UROBILINOGEN,URINE NORMAL MG/DL (0.0-1.0)
[2019-07-21 13:04] LABS: COLOR,URINE YELLOW
[2019-07-21] MEDS ORDERED: cefTRIAXone 1 GM in NS 55 ML IVPB ONE (13:15)
[2019-07-21 14:18] VITALS: BP 162/58
[2019-07-21 15:00] VITALS: BP 147/60
[2019-07-21 16:20] VITALS: BP 163/102
[2019-07-21] MEDS ORDERED: PROTONIX40 MG ORAL (16:53)
[2019-07-21] MEDS ORDERED: ALTACE1.25 MG ORAL (16:53)
[2019-07-21] MEDS ORDERED: LACTULOSE20 GM/301 ORAL (16:53)
[2019-07-21] MEDS ORDERED: VITAMIN D34000 UNIT PO (16:53)
[2019-07-21] MEDS ORDERED: VITAMIN C500 M1 ORAL ×2 (16:53→17:46)
[2019-07-21] MEDS ORDERED: ACETAMINOPHEN500 M5 ORAL (16:53)
[2019-07-21] MEDS ORDERED: HYDRALAZINE HCL25 M1 ORAL (16:53)
[2019-07-21] MEDS ORDERED: ACETAMINOPHEN325 M1 ORAL (17:46)
[2019-07-21] MEDS ORDERED: VITAMIN B-1100 MG ORAL (17:46)
[2019-07-21] MEDS ORDERED: Ramipril 2.5mg cap ORAL SCH (17:52)
[2019-07-21] MEDS ORDERED: Nitroglycerin Subl 0.4mg tab SL PRN (18:00)
[2019-07-21] MEDS ORDERED: HydrALAZINE 25mg tab ORAL SCH (18:00)
[2019-07-21] MEDS ORDERED: Acetaminophen 500mg (ES) tab ORAL PRN (18:00)
[2019-07-21] MEDS ORDERED: HydrALAZINE 25mg tab ORAL PRN (18:15)
[2019-07-21 20:00] VITALS: BP 151/94
[2019-07-21] MEDS: Lactulose 20gm/30ml UDC ORAL SCH (21:26)
[2019-07-21] MEDS: Atorvastatin 20mg tab ORAL SCH (21:27)
[2019-07-21] MEDS: Carvedilol 6.25mg Tab ORAL SCH (21:27)
[2019-07-21] MEDS: Heparin 5000 units/ml inj SUBQ SCH (21:29)
[2019-07-22] VITALS: BP 135/81
[2019-07-22 04:00] VITALS: BP 157/82
[2019-07-22 07:34] LABS: BASOPHILS % (AUTO) 0.9 % (0.0-2.0); EOSINOPHILS % (AUTO) 4.3 % (0.0-3.0); HEMATOCRIT 48.4 % (42.0-52.0); HEMOGLOBIN 16.3 G/DL (14.2-18.0); MEAN CORPUSCULAR VOLUME 93 FL (80-99); MONOCYTES % (AUTO) 12.6 % (1.0-10.0); NEUTROPHILS % (AUTO) 61.3 % (45.0-75.0); PLATELET COUNT 244 K/UL (150-450); RED CELL DISTRIBUTION WIDTH 12.2 % (11.6-14.8); WHITE BLOOD COUNT 6.5 K/UL (4.8-10.8)
[2019-07-22 08:00] VITALS: BP 140/89
[2019-07-22 08:06] LABS: ALANINE AMINOTRANSFERASE 21 U/L (12-78); ALBUMIN 3.4 G/DL (3.4-5.0); ALKALINE PHOSPHATASE 67 U/L (46-116); ANION GAP 10 mmol/L (5-15); ASPARTATE AMINO TRANSFERASE 25 U/L (15-37); BILIRUBIN,DIRECT < 0.1 MG/DL (0.0-0.3); BILIRUBIN,TOTAL 0.6 MG/DL (0.2-1.0); BLOOD UREA NITROGEN 20 mg/dL (7-18); CALCIUM 9.1 MG/DL (8.5-10.1); CARBON DIOXIDE 28 MMOL/L (21-32); CHLORIDE 109 MMOL/L (98-107); CREATININE 0.7 MG/DL (0.55-1.30); POTASSIUM 3.8 MMOL/L (3.5-5.1); SODIUM 147 MMOL/L (136-145)
[2019-07-22] MEDS: Lactulose 20gm/30ml UDC ORAL SCH ×2 (09:00→21:00)
[2019-07-22] MEDS: Vitamin D 1000 IU Tab ORAL SCH (09:31)
[2019-07-22] MEDS: Heparin 5000 units/ml inj SUBQ SCH ×2 (09:31→21:33)
[2019-07-22] MEDS: Imdur 30mg tab ORAL SCH (09:32)
[2019-07-22] MEDS: Carvedilol 6.25mg Tab ORAL SCH ×2 (09:32→21:32)
[2019-07-22] MEDS: Ascorbic Acid 500mg tab ORAL SCH (09:32)
[2019-07-22] MEDS: Thiamine 100mg tab ORAL SCH (09:32)
[2019-07-22] MEDS: Ramipril 2.5mg cap ORAL SCH (09:32)
--- NOTE | 2019-07-22 11:45 | History and Physical Report ---
DATE OF ADMISSION: 07/21/2019 This is one of several admissions to [facility] of this 79-year-old patient because of bronchitis, and generalized malaise. HISTORY OF PRESENT ILLNESS: The patient is a resident of an extended care facility where he has been in stable condition over the last 4 years. He is known to have several chronic medical syndrome, but has been stable on his current medication. Several days prior to the present admission, he was noted to be progressively weak, unable to complete his meals the patient did not complain. Today the patient complained of shortness of breath and dysuria. He was transferred to [facility] ER. bronchitis and cystitis. Because of the patient's lethargy, his sudden change in motor performance, the patient was admitted. PAST MEDICAL HISTORY: The patient is known to have high blood pressure, hyperlipidemia, COPD, . 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 ALLERGIES: No known drug allergies. MEDICATIONS: The patient is on pantoprazole 40 mg daily, ascorbic acid mg daily, 75 mg daily, mg daily, multivitamin 1 tablet daily, thiamine 1 mg daily, vitamin D 5000 units daily, mg daily, atorvastatin 40 mg daily, carvedilol 6.25 mg b.i.d., lactulose 20 g daily, 25 mg q.6 h. FAMILY HISTORY: Noncontributory. The patient is single and has no children. He was born in [place] . 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 HABITS: The patient did smoke 1 pack a day. However, over the last 10 years, the patient did not smoke, drink, or use illicit drugs. REVIEW OF SYSTEMS: CARDIOVASCULAR: The patient denied any chest pain, shortness of breath, palpitations, or dizziness. PULMONARY: The patient denied any cough, wheezing, or expectoration. GASTROINTESTINAL: Appetite is moderate. Weight is stable. He has no dysphagia or dyspepsia. No bowel movement disorder. GENITOURINARY: The patient denies any dysuria, frequency, incontinence, or nocturia. JOINTS: The patient denies any pain, swelling, stiffness, cold extremities, photosensitivity, dry eyes or alopecia. 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 He . He has no numbness, tingling, or seizure disorder, and has no headache. PHYSICAL EXAMINATION: VITAL SIGNS: His blood pressure is 163/102, his pulse is 93, his respirations are 19, and temperature is 98.4. HEENT: Eyes were normal. Pupils were round, equal, and reactive to light. Sclerae were white. Conjunctivae were pink. Extraocular movements were normal. Temporal arteries were palpable bilaterally. There was no bilateral temporal wasting. Visual kang to confrontation was normal. Neglect sign was negative. Mucous membranes were not dehydrated. Auditory canals were clear. Tympanic membranes could not be visualized. Nasal cavity was not congested. Nasal septum was intact. Soft palate was free of ulcerations. Pharynx was clear from exudate or tonsillar hypertrophy. Uvula reed to phonation. Tongue was moist, midline, and normally papillated. NECK: Supple. There was no goiter. No mass. No lymphadenopathy. There was no JVD. No bruits. Carotid upstroke was 2+. LUNGS: Clear. HEART: PMI was in the fifth left intercostal space in midclavicular line. Normal S1 and normal S2. There was no murmur. No arrhythmia. No S3. No S4. No pericardial rub. ABDOMEN: Soft and nontender without organomegaly. There are no bowel sounds without bruits. There was no guarding. No rebound tenderness. No ascites. No hernia. No CVA tenderness. EXTREMITIES: Warm without cyanosis, no clubbing, and no edema. NEUROLOGICAL: Reflexes in biceps, triceps, and brachioradialis were present. Patellar retinaculum present. Plantar were in flexion. Cranial nerves II through XII were symmetric and equal. Cerebellar function, there was no tremor. No nystagmus. No extrapyramidal rigidity. Sensory exam to pinprick, cotton touch, and position were grossly normal. Motor strength was 5/5 against resistance in upper and lower extremities in proximal and distal muscles and better than the average age. LABORATORY DATA: His hemoglobin 15.6, hematocrit 45.2 with MCV of 93, WBC of 5.9, and platelets are 227,000. His BUN and creatinine are 21 and 0.7 respectively. Sodium is 143, potassium 4.1, chloride 108, and CO2 is 32. His troponin was 0.109. His proBNP is 2063. Albumin is 3.2. Total protein is 6.2. Urinalysis shows 2+ blood, positive for nitrite. Urine contained 2 to 4 RBC per high-power field and 15-20 WBC per high-power field. PLAN: The patient will be started on ceftriaxone 1 g IV piggyback q.24 h. CBC, BMP, LFTs, UA, TSH, T4, ESR, and vitamin D will be requested. Repeat laboratory tests will be done in a.m. Abdominal pelvic ultrasound was ordered as well as 2D echo and cardiology consult. Modesta Mulligan M.D. DR: Malathi JOB#: [id number] CC:
[2019-07-22 12:00] VITALS: BP 143/57
[2019-07-22] MEDS: cefTRIAXone 1 GM in D5W 55 ML IVPB SCH (13:06)
[2019-07-22 16:00] VITALS: BP 144/67
[2019-07-22] MEDS ORDERED: D5NS 1,000 ML IV SCH (18:27)
[2019-07-22 20:00] VITALS: BP 151/70
[2019-07-22] MEDS: Atorvastatin 20mg tab ORAL SCH (21:32)
[2019-07-22] MEDS ORDERED: Metoprolol Tartrate 5mg/5ml Inj IVPB SCH (23:00)
[2019-07-23] VITALS: BP 122/73
--- NOTE | 2019-07-23 00:15 | Consultation ---
DATE OF CONSULTATION: 07/22/2019 CARDIOLOGY CONSULTATION CONSULTING PHYSICIAN: Saeed Sim M.D. REFERRING PHYSICIAN: Modesta Mluligan M.D. REASON FOR CONSULTATION: Elevated troponin level and rapid atrial fibrillation. HISTORY OF PRESENT ILLNESS: This 79-year-old male who resides at a [facility] facility and has been stable for several years. He presented to the emergency room yesterday with several days of progressive weakness, anorexia, and general malaise. He also developed dysuria and shortness of breath. He was transferred to the emergency room where cystitis and acute bronchitis was diagnosed. He has been started on antimicrobials and IV fluids. Today, he was noted to have an elevated troponin level that slightly increased today and he developed rapid atrial fibrillation. He has not had any specific complaints, however, denying any chest pain, and not being aware of any change in his heart rate. PAST MEDICAL HISTORY: Includes COPD, hyperlipidemia, hypertension, hypogammaglobulinemia, and vitamin D deficiency. ALLERGIES: None. MEDICATIONS: Reviewed and reconciled. FAMILY HISTORY: Noncontributory. SOCIAL HISTORY: One pack of cigarettes daily for 50+ years, quit about 10 years ago. No alcohol or substance abuse. REVIEW OF SYSTEMS: No fevers. He has been coughing. No diarrhea. He has had dysuria. No history of diabetes. He is on anti-lipid drugs. He does have dementia. PHYSICAL EXAMINATION: VITAL SIGNS: Blood pressure 152/73, pulse 128, respirations 18, and temperature 98.1. Room air oxygen saturation 95%. NECK: Jugular venous pressure normal. LUNGS: Clear. CARDIAC: Irregularly irregular rhythm. Normal S1, S2. A 1/6 systolic murmur at base. ABDOMEN: Soft, nontender. No CVA tenderness. EXTREMITIES: Without edema. Distal pulses palpable. LABORATORY DATA: Urinalysis, 15 to 20 white cells. White count 6.5, hemoglobin 16.3. Sodium 147, potassium 3.8, bicarb 28, BUN 20, creatinine 0.7. Troponin #1 0.109, troponin #2 0.153. Pro-natriuretic peptide yesterday was 3. Lactic acid 1. EKG on admission revealed sinus rhythm with nonspecific ST change. Chest x-ray on admission revealed no acute process. IMPRESSION: 1. Acute bronchitis. 2. Acute cystitis. 3. Dehydration. 4. Hypernatremia. 5. Acute myocardial ischemia and possible non-ST elevation myocardial infarction. 6. History of hyperlipidemia. 7. Paroxysmal atrial fibrillation with rapid ventricular response. PLAN: 1. Cardiac monitoring. 2. IV beta-todd and maintenance oral dosing to be titrated. 3. Hypotonic IV fluids. 4. Serial troponin levels. 5. No role for diuresis presently. 6. Advance anti-failure regimen based on clinical parameters. 7. We will follow closely with you during this hospital course. 8. Reassess him for anticoagulation for cardioembolic prophylaxis. Saeed Sim M.D. DR: RAUL JOB#: [id number] CC:
--- NOTE | 2019-07-23 00:45 | Progress Note ---
DATE: 07/22/2019 SUBJECTIVE: The patient developed periumbilical abdominal pain and nausea. He became restless that appeared to be associated with shortness of breath. PHYSICAL EXAMINATION: VITAL SIGNS: Blood pressure is 144/67, pulse 95, respirations 18, temperature 98.1. HEENT: Eyes were normal. ENT, mucous membranes were moist and intact. NECK: Supple with no JVD without lymph nodes. LUNGS: Clear with decreased breath sounds in both bases. HEART: Normal sounds with irregular beats. There is no tachycardia at rest. PMI was difficult to locate. ABDOMEN: Soft, obese, with mid epigastric and periumbilical tenderness. Bowel sounds are hypoactive, but there is no guarding, no rebound tenderness. EXTREMITIES: Warm without cyanosis, clubbing, or edema. LABORATORY AND DIAGNOSTIC DATA: Hemoglobin is 16.3, hematocrit 48.4 with MCV of 93, WBC of 6.5, and platelets 244. His BUN and creatinine are 20 and 0.7 respectively. Sodium 147, potassium 3.8, chloride 109, CO2 is 28. Troponin was 0.153 which increased since yesterday. His ProBNP is 2062. His urine culture grew gram-negative bacilli. . Echocardiogram was done, but report is unavailable. Chest x-ray was done yesterday, but abdomen and pelvic ultrasound was not done. IMPRESSION: The patient has congestive heart failure associated with elevated troponin. A 2D echo is pending. The patient is on clopidogrel, isosorbide, and heparin. The patient will be placed on Carvedilol 3.125 b.i.d. and Lasix 40 mg daily. network security consultant was called to assist in the management of this case. Abdomen and pelvic ultrasound is requested and repeat laboratory tests including amylase and lipase will be done in the morning as the patient has a history of pancreatitis in the past. Modesta Mulligan M.D. DR: Sravani JOB#: [id number] CC:
[2019-07-23] MEDS: D5 1/2NS w/KCl 20mEq 1,000 ML IV SCH ×2 (00:57→10:00)
[2019-07-23] MEDS: Albuterol/Ipratropium 3ml neb HHN PRN (03:05)
[2019-07-23 04:00] VITALS: BP 117/54
[2019-07-23 07:30] LABS: EOSINOPHILS % (AUTO) 0.1 % (0.0-3.0); HEMATOCRIT 46.7 % (42.0-52.0); HEMOGLOBIN 15.2 G/DL (14.2-18.0); LYMPHOCYTES % (AUTO) 15.2 % (20.0-45.0); MEAN CORPUSCULAR VOLUME 95 FL (80-99); MONOCYTES % (AUTO) 8.2 % (1.0-10.0); NEUTROPHILS % (AUTO) 75.6 % (45.0-75.0); PLATELET COUNT 234 K/UL (150-450); RED BLOOD COUNT 4.92 M/UL (4.70-6.10); RED CELL DISTRIBUTION WIDTH 12.4 % (11.6-14.8); WHITE BLOOD COUNT 7.3 K/UL (4.8-10.8)
[2019-07-23 08:00] VITALS: BP 122/69
[2019-07-23 08:08] LABS: AMYLASE 29 U/L (25-115); ANION GAP 4 mmol/L (5-15); BLOOD UREA NITROGEN 28 mg/dL (7-18); CALCIUM 8.5 MG/DL (8.5-10.1); CARBON DIOXIDE 33 MMOL/L (21-32); CHLORIDE 108 MMOL/L (98-107); CREATININE 1.1 MG/DL (0.55-1.30); POTASSIUM 4.2 MMOL/L (3.5-5.1); SODIUM 145 MMOL/L (136-145)
[2019-07-23] MEDS: Lactulose 20gm/30ml UDC ORAL SCH ×2 (09:00→21:47)
[2019-07-23] MEDS: Ramipril 2.5mg cap ORAL SCH (09:13)
[2019-07-23] MEDS: Vitamin D 1000 IU Tab ORAL SCH (09:13)
[2019-07-23] MEDS: Thiamine 100mg tab ORAL SCH (09:14)
[2019-07-23] MEDS: Imdur 30mg tab ORAL SCH (09:14)
[2019-07-23] MEDS: Ascorbic Acid 500mg tab ORAL SCH (09:14)
[2019-07-23] MEDS: Heparin 5000 units/ml inj SUBQ SCH ×2 (09:20→21:50)
--- NOTE | 2019-07-23 10:31 | Diagnostic Imaging Report ---
Indication: Abdominal pain, abnormal renal function tests Technique: Giraldo-scale and duplex images of the upper abdomen were obtained Comparison: Findings: Exam is somewhat limited by body habitus and overlying bowel gas Gallbladder demonstrates multiple gallstones. Sonographic Tyalor's sign is negative. Common bile duct measures I mm in diameter. No intrahepatic biliary ductal dilatation. Liver demonstrates normal echogenicity, no focal abnormality. Portal vein and hepatic veins are patent. Pancreas is incompletely visualized due to overlying bowel gas, visualized portions are unremarkable. Spleen is unremarkable. Left kidney measures 10.4 cm in length. Right kidney measures 9 cm length. Both kidneys demonstrate normal echogenicity. There is no hydronephrosis. No focal abnormality . Abdominal aorta is obscured by bowel gas . Impression: Cholelithiasis. Negative for dilated bile ducts Limited exam, with poor visualization of the pancreas, nonvisualization of the abdominal aorta
[2019-07-23 11:58] VITALS: BP 105/53
[2019-07-23] MEDS: cefTRIAXone 1 GM in D5W 55 ML IVPB SCH (12:52)
[2019-07-23 16:00] VITALS: BP 119/57
[2019-07-23] MEDS ORDERED: PROCHLORPERAZIN10 MG PO (17:43)
[2019-07-23] MEDS ORDERED: MULTIVITAMINS1 EAC8 ORAL (17:43)
[2019-07-23 20:00] VITALS: BP 120/64
[2019-07-23] MEDS: Atorvastatin 20mg tab ORAL SCH (21:48)
[2019-07-24] VITALS: BP 134/94
[2019-07-24 04:00] VITALS: BP 141/61
--- NOTE | 2019-07-24 04:15 | Progress Note ---
DATE: 07/23/2019 CARDIOLOGY PROGRESS NOTE SUBJECTIVE: The patient is converted to sinus rhythm with atrial ectopics. No shortness of breath or chest pain. On nasal cannula. Tolerating diet. OBJECTIVE: VITAL SIGNS: Blood pressure 120/64, pulse 83, and respiratory rate 20. LUNGS: With few rhonchi. CARDIAC: Regular rhythm and rate fourth heart sound. ABDOMEN: Soft. EXTREMITIES: No edema. LABORATORY DATA: White count 7 and hemoglobin 15. Troponin up to 0.242. Pro-natriuretic peptide 5500. Magnesium 2.1 and potassium 4.2. IMPRESSION: 1. Acute myocardial infarction. 2. Paroxysmal atrial fibrillation. 3. Acute diastolic congestive heart failure. 4. Toxic and metabolic encephalopathies. PLAN: 1. Continue and titrate beta-todd. 2. Diuresis. 3. Antimicrobials. 4. Discontinue intravenous fluids. 5. Cautious diuresis. 6. Continue anti-platelet therapy and beta blockade. Saeed Sim M.D. DR: MARCIA JOB#: [id number] CC:
[2019-07-24 05:18] LABS: ALANINE AMINOTRANSFERASE 27 U/L (12-78); ALBUMIN 3.1 G/DL (3.4-5.0); ALBUMIN/GLOBULIN RATIO 0.9 (1.0-2.7); ALKALINE PHOSPHATASE 60 U/L (46-116); ANION GAP 6 mmol/L (5-15); ASPARTATE AMINO TRANSFERASE 22 U/L (15-37); BILIRUBIN,TOTAL 0.3 MG/DL (0.2-1.0); BLOOD UREA NITROGEN 36 mg/dL (7-18); CALCIUM 8.7 MG/DL (8.5-10.1); CARBON DIOXIDE 31 MMOL/L (21-32); CHLORIDE 105 MMOL/L (98-107); CHOLESTEROL 112 MG/DL (< 200); CREATININE 1.1 MG/DL (0.55-1.30); HDL CHOLESTEROL 44 MG/DL (40-60); POTASSIUM 5.1 MMOL/L (3.5-5.1); SODIUM 142 MMOL/L (136-145); TRIGLYCERIDES 69 MG/DL (30-150)
--- NOTE | 2019-07-24 05:45 | Progress Note ---
DATE: 07/23/2019 SUBJECTIVE: The patient is awake, alert, afebrile, and hemodynamically stable. PHYSICAL EXAMINATION: VITAL SIGNS: Blood pressure 119/57, pulse is 77, respirations 21, and temperature 97.7. HEENT: Eyes were normal. ENT, mucous membranes were moist and intact. NECK: Supple with no JVD without lymph nodes. LUNGS: Clear. HEART: Normal sounds with regular beats. ABDOMEN: Soft, nontender with normal bowel sounds. . LABORATORY AND DIAGNOSTIC DATA: His hemoglobin is 15.2, hematocrit with MCV of 95, WBC of 7.3, and platelets are 234,000. BUN and creatinine are 28 and 1.1 respectively. His sodium is 145, potassium 4.2, chloride 108, CO2 33. His troponin increased from 0.15 to 0.24. His proBNP was . The patient in the ICU. He is congested. IMPRESSION AND PLAN: The patient will receive Lasix 40 mg IV push q.24 h. The patient's carvedilol will be increased to 6.25. Repeat laboratory tests will be done in a.m. Modesta Mulligan M.D. DR: Jim JOB#: [id number] CC:
[2019-07-24 08:00] VITALS: BP 148/78
[2019-07-24] MEDS: Vitamin D 1000 IU Tab ORAL SCH (09:52)
[2019-07-24] MEDS: Lactulose 20gm/30ml UDC ORAL SCH ×2 (09:52→20:52)
[2019-07-24] MEDS: Thiamine 100mg tab ORAL SCH (09:54)
[2019-07-24] MEDS: Ascorbic Acid 500mg tab ORAL SCH (09:55)
[2019-07-24] MEDS: Imdur 30mg tab ORAL SCH (09:56)
[2019-07-24] MEDS: Ramipril 2.5mg cap ORAL SCH (09:57)
[2019-07-24] MEDS: Heparin 5000 units/ml inj SUBQ SCH ×2 (09:58→20:53)
[2019-07-24 12:00] VITALS: BP 144/67
--- NOTE | 2019-07-24 15:00 | Diagnostic Imaging Report ---
Indication: Shortness of breath Technique: One view of the chest Comparison: 07/21/2019 Findings: Interim development of linear and hazy opacities in the right mid and lower lung periphery. The heart is mildly enlarged. The left lung and bilateral pleural spaces remain clear Impression: Right mid and lower lung linear and hazy opacities, suspect pneumonia. Focal pulmonary edema also possible Mild cardiomegaly
[2019-07-24 16:00] VITALS: BP 124/52
[2019-07-24] MEDS: cefTRIAXone 1 GM in D5W 55 ML IVPB SCH (17:30)
[2019-07-24 20:00] VITALS: BP 139/70
[2019-07-24] MEDS: Atorvastatin 20mg tab ORAL SCH (20:52)
[2019-07-25] VITALS: BP 128/63
--- NOTE | 2019-07-25 00:30 | Progress Note ---
DATE: 07/24/2019 CARDIOLOGY PROGRESS NOTE SUBJECTIVE: The patient has congestion but overall is less short of breath. Monitored rhythm sinus with paroxysms of atrial fibrillation that are rate controlled. OBJECTIVE: VITAL SIGNS: Blood pressure 124/52 to 144/67, heart rate 68 to 94, respiratory rate 20, afebrile. LUNGS: Diminished breath sounds. Scattered rhonchi. HEART: Irregularly irregular rhythm. Normal S1, S2. A 1/6 systolic murmur at apex. ABDOMEN: Soft. EXTREMITIES: Trace dependent edema. DIAGNOSTIC DATA: Echocardiogram with regional wall motion abnormalities and ejection fraction of 40% with mild mitral and aortic insufficiency. Chest x-ray with right mid and lower lung opacities and focal edema. Troponin down to 0.133. BUN 36, creatinine 1.1. Potassium 5.1. LDL cholesterol 61. IMPRESSION: 1. Non ST-elevation myocardial infarction. 2. Aspiration pneumonia. 3. Sepsis. 4. Ischemic cardiomyopathy. 5. Acute on chronic systolic and diastolic congestive heart failure. 6. Paroxysmal atrial fibrillation. PLAN: 1. Diuresis. 2. Aspiration precautions. 3. Antimicrobial. 4. Maximize anti-failure and antihypertensive regimen. 5. Anti-platelet therapy. 6. DVT prophylaxis. 7. No plan for anticoagulation at this time but we will consider cardioembolic prophylaxis based on risk to benefit ratio. Saeed Sim M.D. DR: Bruno JOB#: [id number] CC:
[2019-07-25 03:49] VITALS: BP 122/75
[2019-07-25 05:43] LABS: BASOPHILS % (AUTO) 0.6 % (0.0-2.0); EOSINOPHILS % (AUTO) 0.4 % (0.0-3.0); HEMATOCRIT 44.3 % (42.0-52.0); HEMOGLOBIN 14.7 G/DL (14.2-18.0); LYMPHOCYTES % (AUTO) 16.6 % (20.0-45.0); MEAN CORPUSCULAR VOLUME 96 FL (80-99); MONOCYTES % (AUTO) 10.2 % (1.0-10.0); NEUTROPHILS % (AUTO) 72.1 % (45.0-75.0); PLATELET COUNT 225 K/UL (150-450); RED BLOOD COUNT 4.62 M/UL (4.70-6.10); RED CELL DISTRIBUTION WIDTH 12.7 % (11.6-14.8); WHITE BLOOD COUNT 8.8 K/UL (4.8-10.8)
[2019-07-25 06:26] LABS: ALANINE AMINOTRANSFERASE 25 U/L (12-78); ALBUMIN 2.9 G/DL (3.4-5.0); ALBUMIN/GLOBULIN RATIO 0.9 (1.0-2.7); ALKALINE PHOSPHATASE 62 U/L (46-116); ANION GAP 6 mmol/L (5-15); ASPARTATE AMINO TRANSFERASE 21 U/L (15-37); BILIRUBIN,TOTAL 0.3 MG/DL (0.2-1.0); BLOOD UREA NITROGEN 36 mg/dL (7-18); CALCIUM 8.6 MG/DL (8.5-10.1); CARBON DIOXIDE 31 MMOL/L (21-32); CHLORIDE 107 MMOL/L (98-107); CREATININE 0.9 MG/DL (0.55-1.30); SODIUM 144 MMOL/L (136-145)
[2019-07-25 08:00] VITALS: BP 143/72
[2019-07-25] MEDS: Albuterol/Ipratropium 3ml neb HHN PRN ×2 (08:25→22:49)
[2019-07-25] MEDS: Ascorbic Acid 500mg tab ORAL SCH (09:00)
[2019-07-25] MEDS ORDERED: Amiodarone 200mg tab ORAL SCH (09:00)
[2019-07-25] MEDS: Thiamine 100mg tab ORAL SCH (09:33)
[2019-07-25] MEDS: Lactulose 20gm/30ml UDC ORAL SCH ×2 (09:33→21:11)
[2019-07-25] MEDS: Imdur 30mg tab ORAL SCH (09:33)
[2019-07-25] MEDS: Vitamin D 1000 IU Tab ORAL SCH (09:33)
[2019-07-25] MEDS: Ramipril 2.5mg cap ORAL SCH (09:35)
[2019-07-25] MEDS: Heparin 5000 units/ml inj SUBQ SCH ×2 (09:37→21:13)
[2019-07-25 12:00] VITALS: BP 113/54
[2019-07-25] MEDS: cefTRIAXone 1 GM in D5W 55 ML IVPB SCH (13:00)
[2019-07-25 16:43] VITALS: BP 148/51
[2019-07-25 20:00] VITALS: BP 166/72
[2019-07-25] MEDS: Atorvastatin 20mg tab ORAL SCH (21:12)
[2019-07-26] VITALS: BP 129/54
--- NOTE | 2019-07-26 01:15 | Progress Note ---
DATE: 07/25/2019 CARDIOLOGY PROGRESS NOTE SUBJECTIVE: The patient still with cough and congestion. Episodic agitation. No complaints of chest pain. No apparent shortness of breath. OBJECTIVE: VITAL SIGNS: Blood pressure 166/72, pulse 89, respiratory rate 20. Monitored rhythm sinus with rare atrial ectopics. LUNGS: Coarse breath sounds. Rhonchi. CARDIAC: Regular rhythm and rate. Normal S1 and S2. ABDOMEN: Soft. EXTREMITIES: Trace edema. IMPRESSION: 1. Aspiration pneumonia. 2. Sepsis. 3. Acute myocardial infarction. 4. Hypertensive heart disease. 5. Labile blood pressure. 6. Paroxysmal atrial fibrillation. PLAN: 1. Titrate antihypertensives. 2. Maintenance dose amiodarone. 3. Maintenance dose diuretic. 4. Antianginal and anti-platelet therapy. 5. Antimicrobials and respiratory hygiene. Saeed Sim M.D. DR: MARCIA JOB#: [id number] CC:
[2019-07-26 04:00] VITALS: BP 123/85
[2019-07-26 07:46] LABS: ANION GAP 9 mmol/L (5-15); BLOOD UREA NITROGEN 35 mg/dL (7-18); CALCIUM 9.3 MG/DL (8.5-10.1); CARBON DIOXIDE 28 MMOL/L (21-32); CHLORIDE 106 MMOL/L (98-107); CREATININE 0.7 MG/DL (0.55-1.30); POTASSIUM 5.5 MMOL/L (3.5-5.1); SODIUM 143 MMOL/L (136-145)
[2019-07-26] MEDS: Albuterol/Ipratropium 3ml neb HHN PRN (07:55)
[2019-07-26 08:00] VITALS: BP 186/96
[2019-07-26] MEDS: Lactulose 20gm/30ml UDC ORAL SCH ×2 (09:00→21:00)
[2019-07-26] MEDS: Ramipril 2.5mg cap ORAL SCH (09:13)
[2019-07-26] MEDS: Amiodarone 200mg tab ORAL SCH (09:13)
[2019-07-26] MEDS: Vitamin D 1000 IU Tab ORAL SCH (09:13)
[2019-07-26] MEDS: Ascorbic Acid 500mg tab ORAL SCH (09:14)
[2019-07-26] MEDS: Thiamine 100mg tab ORAL SCH (09:14)
[2019-07-26] MEDS: Imdur 30mg tab ORAL SCH (09:14)
[2019-07-26] MEDS: Furosemide 40mg tab ORAL SCH (09:14)
[2019-07-26] MEDS: Heparin 5000 units/ml inj SUBQ SCH ×2 (09:18→21:53)
[2019-07-26 10:39] LABS: HEMATOCRIT 49.8 % (42.0-52.0); HEMOGLOBIN 16.8 G/DL (14.2-18.0); MEAN CORPUSCULAR VOLUME 94 FL (80-99); PLATELET COUNT 246 K/UL (150-450); RED BLOOD COUNT 5.29 M/UL (4.70-6.10); RED CELL DISTRIBUTION WIDTH 12.3 % (11.6-14.8); WHITE BLOOD COUNT 13.3 K/UL (4.8-10.8)
--- NOTE | 2019-07-26 11:33 | Pulmonology Progress Note ---
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 resident admitted with shortness of breath , fever and cough Patient himself is a poor historian history is limited from his standpoint however nursing facility Noted to have CHF, Pneumonia, UTI There was no reports of vomiting or diarrhea There was no reports of any recent travel Allergies: No Known Allergies Past Medical History: Hypertension, Congestive Heart Failure, Chronic Obstructive Pulmonary Disease All Other Systems: limited - due to the patient's mental status Physical Exam Vital Signs Noted General Appearance: no apparent distress, obese Head: normocephalic, atraumatic Eyes: bilateral eye PERRL, bilateral eye EOMI ENT: EOM grossly intact, normal pharynx Neck: supple Respiratory: no retraction, no accessory muscle use, crackles - bilaterally Cardiovascular #1: regular rate, rhythm Gastrointestinal: non tender, soft Musculoskeletal: normal inspection Neurologic: Confusion, knows name Skin: no rash, mild edema Impression: Congestive Heart Failure Intermittent atrial flutter Elevated Troponin Pneumonia Urinary tract infection Hypertension Chronic Obstructive Pulmonary Disease Plan Diurese PRN IV AB HHN O2 PRN [facility] [employer] medications PPX Monitor labs Labs Test 07/21/19 11:10 07/21/19 11:40 07/22/19 05:35 07/23/19 05:38 White Blood Count 5.9 K/UL (4.8-10.8) 6.5 K/UL (4.8-10.8) 7.3 K/UL (4.8-10.8) Red Blood Count 4.91 M/UL (4.70-6.10) 5.20 M/UL (4.70-6.10) 4.92 M/UL (4.70-6.10) Hemoglobin 15.6 G/DL (14.2-18.0) 16.3 G/DL (14.2-18.0) 15.2 G/DL (14.2-18.0) Hematocrit 45.6 % (42.0-52.0) 48.4 % (42.0-52.0) 46.7 % (42.0-52.0) Mean Corpuscular Volume 93 FL (80-99) 93 FL (80-99) 95 FL (80-99) Mean Corpuscular Hemoglobin 31.8 PG (27.0-31.0) 31.2 PG (27.0-31.0) 30.9 PG (27.0-31.0) Mean Corpuscular Hemoglobin Concent 34.3 G/DL (32.0-36.0) 33.6 G/DL (32.0-36.0) 32.5 G/DL (32.0-36.0) Red Cell Distribution Width 12.2 % (11.6-14.8) 12.2 % (11.6-14.8) 12.4 % (11.6-14.8) Platelet Count 227 K/UL (150-450) 244 K/UL (150-450) 234 K/UL (150-450) Mean Platelet Volume 6.0 FL (6.5-10.1) 5.6 FL (6.5-10.1) 5.3 FL (6.5-10.1) Neutrophils (%) (Auto) 57.7 % (45.0-75.0) 61.3 % (45.0-75.0) 75.6 % (45.0-75.0) Lymphocytes (%) (Auto) 23.5 % (20.0-45.0) 21.0 % (20.0-45.0) 15.2 % (20.0-45.0) Monocytes (%) (Auto) 11.4 % (1.0-10.0) 12.6 % (1.0-10.0) 8.2 % (1.0-10.0) Eosinophils (%) (Auto) 6.1 % (0.0-3.0) 4.3 % (0.0-3.0) 0.1 % (0.0-3.0) Basophils (%) (Auto) 1.3 % (0.0-2.0) 0.9 % (0.0-2.0) 1.0 % (0.0-2.0) Sodium Level 146 MMOL/L (136-145) 147 MMOL/L (136-145) 145 MMOL/L (136-145) Potassium Level 4.1 MMOL/L (3.5-5.1) 3.8 MMOL/L (3.5-5.1) 4.2 MMOL/L (3.5-5.1) Chloride Level 108 MMOL/L (98-107) 109 MMOL/L (98-107) 108 MMOL/L (98-107) Carbon Dioxide Level 31 MMOL/L (21-32) 28 MMOL/L (21-32) 33 MMOL/L (21-32) Anion Gap 7 mmol/L (5-15) 10 mmol/L (5-15) 4 mmol/L (5-15) Blood Urea Nitrogen 21 mg/dL (7-18) 20 mg/dL (7-18) 28 mg/dL (7-18) Creatinine 0.7 MG/DL (0.55-1.30) 0.7 MG/DL (0.55-1.30) 1.1 MG/DL (0.55-1.30) Estimat Glomerular Filtration Rate > 60 mL/min (>60) > 60 mL/min (>60) > 60 mL/min (>60) Glucose Level 122 MG/DL (74-106) 98 MG/DL (74-106) 151 MG/DL (74-106) Lactic Acid Level 1.00 mmol/L (0.4-2.0) Calcium Level 8.6 MG/DL (8.5-10.1) 9.1 MG/DL (8.5-10.1) 8.5 MG/DL (8.5-10.1) Total Bilirubin 0.6 MG/DL (0.2-1.0) 0.6 MG/DL (0.2-1.0) Aspartate Amino Transf (AST/SGOT) 25 U/L (15-37) 25 U/L (15-37) Alanine Aminotransferase (ALT/SGPT) 22 U/L (12-78) 21 U/L (12-78) Alkaline Phosphatase 65 U/L (46-116) 67 U/L (46-116) Total Creatine Kinase 149 U/L (26-308) Creatine Kinase MB 2.6 NG/ML (0.0-3.6) Creatine Kinase MB Relative Index 1.7 Troponin I 0.109 ng/mL (0.000-0.056) 0.153 ng/mL (0.000-0.056) 0.242 ng/mL (0.000-0.056) Pro-B-Type Natriuretic Peptide 2063 pg/mL (0-125) 5551 pg/mL (0-125) Total Protein 6.2 G/DL (6.4-8.2) 6.6 G/DL (6.4-8.2) Albumin 3.2 G/DL (3.4-5.0) 3.4 G/DL (3.4-5.0) Globulin 3.0 g/dL Albumin/Globulin Ratio 1.1 (1.0-2.7) Urine Color Yellow Urine Appearance Slightly cloudy Urine pH 5 (4.5-8.0) Urine Specific [place] 1.025 (1.005-1.035) Urine Protein 2+ (NEGATIVE) Urine Glucose (UA) Negative (NEGATIVE) Urine Ketones 1+ (NEGATIVE) Urine Blood 2+ (NEGATIVE) Urine Nitrite Positive (NEGATIVE) Urine Bilirubin Negative (NEGATIVE) Urine Urobilinogen Normal MG/DL (0.0-1.0) Urine Leukocyte Esterase 1+ (NEGATIVE) Urine RBC 2-4 /HPF (0 - 0) Urine WBC 15-20 /HPF (0 - 0) Urine Squamous Epithelial Cells Occasional /LPF Urine Bacteria Many /HPF (NONE) Direct Bilirubin < 0.1 MG/DL (0.0-0.3) Magnesium Level 2.1 MG/DL (1.8-2.4) Amylase Level 29 U/L (25-115) Lipase 107 U/L (73-393) Test 07/24/19 03:40 Sodium Level 142 MMOL/L (136-145) Potassium Level 5.1 MMOL/L (3.5-5.1) Chloride Level 105 MMOL/L (98-107) Carbon Dioxide Level 31 MMOL/L (21-32) Anion Gap 6 mmol/L (5-15) Blood Urea Nitrogen 36 mg/dL (7-18) Creatinine 1.1 MG/DL (0.55-1.30) Estimat Glomerular Filtration Rate > 60 mL/min (>60) Glucose Level 128 MG/DL (74-106) Calcium Level 8.7 MG/DL (8.5-10.1) Total Bilirubin 0.3 MG/DL (0.2-1.0) Aspartate Amino Transf (AST/SGOT) 22 U/L (15-37) Alanine Aminotransferase (ALT/SGPT) 27 U/L (12-78) Alkaline Phosphatase 60 U/L (46-116) Troponin I 0.133 ng/mL (0.000-0.056) Total Protein 6.5 G/DL (6.4-8.2) Albumin 3.1 G/DL (3.4-5.0) Globulin 3.4 g/dL Albumin/Globulin Ratio 0.9 (1.0-2.7) Triglycerides Level 69 MG/DL (30-150) Cholesterol Level 112 MG/DL (< 200) LDL Cholesterol 61 mg/dL (<100) HDL Cholesterol 44 MG/DL (40-60) Cholesterol/HDL Ratio 2.5 (3.3-4.4) EKG: Rate: SR 77 Rhythm: NSR, no PVC's, no ectopy Subjective ROS Limited/Unobtainable: No Allergies: Coded Allergies: No Known Allergies (Unverified , 06/03/17) Objective Last 24 Hour Vital Signs Date Time Temp Pulse Resp B/P (MAP) Pulse Ox O2 Delivery O2 Flow Rate FiO2 07/26/19 09:14 88 186/96 07/26/19 09:14 186/96 07/26/19 09:13 186/96 07/26/19 09:00 Nasal Cannula 4.0 07/26/19 08:00 4.0 07/26/19 08:00 97.5 88 17 186/96 (126) 94 07/26/19 08:00 86 07/26/19 07:57 92 28 96 Nasal Cannula 4.0 36 91 28 93 07/26/19 07:56 94 Nasal Cannula 4.0 36 07/26/19 04:00 96.3 74 20 123/85 (98) 97 07/26/19 04:00 4.0 07/26/19 03:56 67 07/26/19 00:00 96.3 93 20 129/54 (79) 97 07/26/19 00:00 104 07/26/19 00:00 4.0 07/25/19 22:48 92 Nasal Cannula 4.0 36 07/25/19 22:40 107 24 98 Nasal Cannula 4.0 36 102 24 92 07/25/19 21:11 89 166/72 07/25/19 21:00 Nasal Cannula 4.0 07/25/19 20:00 88 07/25/19 20:00 4.0 07/25/19 20:00 97.9 89 20 166/72 (103) 97 07/25/19 16:43 98.2 62 18 148/51 (83) 97 07/25/19 16:00 2.0 07/25/19 16:00 77 07/25/19 12:00 2.0 07/25/19 12:00 63 07/25/19 12:00 99.1 65 18 113/54 (73) 99 Intake and Output 07/25/19 07/26/19 19:00 07:00 Intake Total 500 ml Balance 500 ml Other 500 ml # Voids 3 3 # Bowel Movements 4 1 Laboratory Tests 07/26/19 05:25: Sodium Level 143, Potassium Level 5.5H, Chloride Level 106, Carbon Dioxide Level 28, Anion Gap 9, Blood Urea Nitrogen 35H, Creatinine 0.7, Estimat Glomerular Filtration Rate > 60, Glucose Level 113H, Calcium Level 9.3, Magnesium Level 2.2, Thyroid Stimulating Hormone (TSH) 0.362 07/26/19 09:45: White Blood Count 13.3#H, Red Blood Count 5.29, Hemoglobin 16.8, Hematocrit 49.8 , Mean Corpuscular Volume 94, Mean Corpuscular Hemoglobin 31.7H, Mean Corpuscular Hemoglobin Concent 33.7, Red Cell Distribution Width 12.3, Platelet Count 246, Mean Platelet Volume 5.5L, Neutrophils (%) (Auto) , Lymphocytes (%) ( Auto) , Monocytes (%) (Auto) , Eosinophils (%) (Auto) , Basophils (%) (Auto) , Neutrophils % (Manual) [Pending], Lymphocytes % (Manual) [Pending], Platelet Estimate [Pending], Platelet Morphology [Pending] Current Medications Medications (Trade) Dose Ordered Sig/A[facility] Route PRN Reason Start Time Stop Time Status Last Admin Dose Admin Acetaminophen (Tylenol) 650 mg Q4H PRN ORAL Mild Pain/Temp > 100.5 07/21/19 18:00 08/20/19 17:59 Acetaminophen (Tylenol) 1,000 mg Q6H PRN ORAL Moderate Pain (Pain Scale 4-6) 07/21/19 18:00 08/20/19 17:59 Albuterol/ Ipratropium (Albuterol/ Ipratropium) 3 ml Q4HRT PRN HHN Shortness of Breath 07/23/19 02:30 2/24/20 02:29 07/26/19 07:55 Amiodarone HCl (Cordarone) 200 mg DAILY ORAL 07/26/19 09:00 08/25/19 08:59 07/26/19 09:13 Ascorbic Acid (Vitamin C) 500 mg DAILY ORAL 07/22/19 09:00 08/21/19 08:59 07/26/19 09:14 Atorvastatin Calcium (Lipitor) 40 mg BEDTIME ORAL 07/21/19 21:00 08/20/19 20:59 07/25/19 21:12 Ceftriaxone Sodium 1 gm/ Dextrose 55 ml @ 110 mls/hr Q24H IVPB 07/22/19 13:00 07/29/19 12:59 07/25/19 13:00 Clopidogrel Bisulfate (Plavix) 75 mg DAILY ORAL 07/22/19 09:00 08/21/19 08:59 07/26/19 09:13 Furosemide (Lasix) 40 mg DAILY ORAL 07/26/19 09:00 08/25/19 08:59 07/26/19 09:14 Heparin Sodium (Porcine) (Heparin 5000 units/ml) 5,000 units EVERY 12 HOURS SUBQ 07/21/19 21:00 08/20/19 20:59 07/26/19 09:18 Hydralazine HCl (Apresoline) 25 mg Q6H PRN ORAL For High Blood Pressure 07/21/19 18:15 08/20/19 18:14 Isosorbide Mononitrate (Imdur) 30 mg DAILY ORAL 07/22/19 09:00 08/21/19 08:59 07/26/19 09:14 Lactulose (Cephulac) 20 gm Q12HR ORAL 07/21/19 21:00 08/20/19 20:59 07/25/19 21:11 Metoprolol Tartrate (Lopressor) 25 mg Q12HR ORAL 07/22/19 23:00 08/21/19 22:59 07/26/19 09:14 Multivitamins (Multivitamins) 1 tab DAILY ORAL 07/22/19 09:00 08/21/19 08:59 07/26/19 09:14 Nitroglycerin (Ntg) 0.4 mg Q5M PRN SL chest pain 07/21/19 18:00 08/20/19 17:59 Ondansetron HCl (Zofran) 4 mg Q4H PRN IVP Nausea & Vomiting 07/22/19 18:30 08/21/19 18:29 07/22/19 18:36 Pantoprazole (Protonix) 40 mg DAILY ORAL 07/22/19 09:00 08/21/19 08:59 07/26/19 09:14 Ramipril (Altace) 10 mg DAILY ORAL 07/26/19 09:00 08/25/19 08:59 07/26/19 09:13 Thiamine HCl (Vitamin B1) 100 mg DAILY ORAL 07/22/19 09:00 08/21/19 08:59 07/26/19 09:14 Vitamin D (Vitamin D) 5,000 intlu DAILY ORAL 07/22/19 09:00 08/21/19 08:59 07/26/19 09:13 Saeed Pierre MD Jul 26, 2019 11:33
[2019-07-26 11:54] VITALS: BP 155/89
[2019-07-26] MEDS ORDERED: Sodium Polystyrene Sulfonate Enema RECTAL SCH (13:00)
[2019-07-26] MEDS: Doxycycline Hyclate 100 MG in D5W 110 ML IV SCH ×2 (13:22→13:23)
[2019-07-26] MEDS: cefTRIAXone 1 GM in D5W 55 ML IVPB SCH (13:53)
[2019-07-26] MEDS ORDERED: D5 1/2NS 1000ml IV ONE (15:08)
[2019-07-26 16:00] VITALS: BP 163/77
[2019-07-26] MEDS ORDERED: D5NS 1000ml IV ONE (16:41)
[2019-07-26] MEDS ORDERED: NS 275ml ONE (16:41)
[2019-07-26] MEDS ORDERED: Tubing IV Blood Pump IV ONE (16:41)
[2019-07-26 20:00] VITALS: BP 163/81
[2019-07-26] MEDS: Atorvastatin 20mg tab ORAL SCH (21:00)
--- NOTE | 2019-07-26 21:00 | Progress Note ---
DATE: 07/26/2019 CARDIOLOGY PROGRESS NOTE SUBJECTIVE: The patient still has cough and congestion. Monitored rhythm, sinus. Atrial ectopics. No recurring atrial fibrillation. PHYSICAL EXAMINATION: LUNGS: Bilateral breath sounds. Rhonchi. CARDIAC: Regular rhythm and rate. Normal S1 and S2. ABDOMEN: Soft. EXTREMITIES: Trace edema. LABORATORY DATA: White count 13 and hemoglobin 16. Potassium 5.5, BUN 35, and creatinine 0.7. Magnesium 2.2. IMPRESSION: 1. Aspiration pneumonia. 2. Klebsiella urinary tract infection. 3. Sepsis. 4. Paroxysmal atrial fibrillation. 5. Acute on chronic diastolic congestive heart failure, now compensated. 6. Non ST-elevation myocardial infarction, uncomplicated. 7. Mild hyperkalemia. PLAN: 1. Antimicrobials. 2. Respiratory hygiene. 3. Continue amiodarone for arrhythmia suppression. 4. Cautious diuresis. 5. Monitor cardiorenal function and electrolyte reassess. 6. Ramipril therapy if potassium continues to increase. Saeed Sim M.D. DR: MARCIA JOB#: [id number] CC:
[2019-07-27] VITALS (7 sets, daily range): BP systolic 153–180; BP diastolic 73–115
[2019-07-27] MEDS: Albuterol/Ipratropium 3ml neb HHN PRN ×2 (00:41→17:01)
[2019-07-27] MEDS: Doxycycline Hyclate 100 MG in D5W 110 ML IV SCH ×3 (00:44→22:55)
[2019-07-27] MEDS ORDERED: Metoprolol Tartrate 5mg/5ml Inj IVPB SCH (01:15)
[2019-07-27 06:06] LABS: BASOPHILS % (AUTO) 0.5 % (0.0-2.0); EOSINOPHILS % (AUTO) 0.1 % (0.0-3.0); HEMATOCRIT 49.9 % (42.0-52.0); HEMOGLOBIN 16.9 G/DL (14.2-18.0); LYMPHOCYTES % (AUTO) 7.7 % (20.0-45.0); MEAN CORPUSCULAR VOLUME 94 FL (80-99); MONOCYTES % (AUTO) 7.7 % (1.0-10.0); NEUTROPHILS % (AUTO) 84.1 % (45.0-75.0); PLATELET COUNT 283 K/UL (150-450); RED BLOOD COUNT 5.33 M/UL (4.70-6.10); RED CELL DISTRIBUTION WIDTH 12.1 % (11.6-14.8); WHITE BLOOD COUNT 11.9 K/UL (4.8-10.8)
[2019-07-27 07:35] LABS: ALANINE AMINOTRANSFERASE 29 U/L (12-78); ALBUMIN/GLOBULIN RATIO 0.8 (1.0-2.7); ALKALINE PHOSPHATASE 74 U/L (46-116); ANION GAP 6 mmol/L (5-15); ASPARTATE AMINO TRANSFERASE 24 U/L (15-37); BILIRUBIN,TOTAL 0.5 MG/DL (0.2-1.0); BLOOD UREA NITROGEN 32 mg/dL (7-18); CALCIUM 9.6 MG/DL (8.5-10.1); CARBON DIOXIDE 38 MMOL/L (21-32); CHLORIDE 106 MMOL/L (98-107); CREATININE 0.6 MG/DL (0.55-1.30); POTASSIUM 3.8 MMOL/L (3.5-5.1); SODIUM 150 MMOL/L (136-145)
[2019-07-27] MEDS: Lactulose 20gm/30ml UDC ORAL SCH ×2 (09:00→19:58)
[2019-07-27] MEDS: Imdur 30mg tab ORAL SCH (09:06)
[2019-07-27] MEDS: Ascorbic Acid 500mg tab ORAL SCH (09:06)
[2019-07-27] MEDS: Metoprolol Tartrate 50mg tab ORAL SCH ×2 (09:07→19:58)
[2019-07-27] MEDS: Amiodarone 200mg tab ORAL SCH (09:07)
[2019-07-27] MEDS: Furosemide 40mg tab ORAL SCH (09:07)
[2019-07-27] MEDS: Thiamine 100mg tab ORAL SCH (09:08)
[2019-07-27] MEDS: Ramipril 2.5mg cap ORAL SCH (09:08)
[2019-07-27] MEDS: Vitamin D 1000 IU Tab ORAL SCH (09:09)
[2019-07-27] MEDS: Heparin 5000 units/ml inj SUBQ SCH ×2 (09:10→19:57)
[2019-07-27] MEDS: cefTRIAXone 1 GM in D5W 55 ML IVPB SCH (13:30)
[2019-07-27] MEDS ORDERED: NS 500ML ONE (14:29)
--- NOTE | 2019-07-27 15:05 | Pulmonology Progress Note ---
Assessment/Plan Assessment/Plan Pulmonary Progress Note HPI Patient is a 79 year old [facility] resident admitted with shortness of breath , fever and cough Patient himself is a poor historian history is limited from his standpoint however nursing facility Noted to have CHF, Pneumonia, UTI Less SOB Allergies: No Known Allergies Past Medical History: Hypertension, Congestive Heart Failure, Chronic Obstructive Pulmonary Disease All Other Systems: limited - due to the patient's mental status Physical Exam Vital Signs Noted General Appearance: no apparent distress, obese Head: normocephalic, atraumatic Eyes: bilateral eye PERRL, bilateral eye EOMI ENT: EOM grossly intact, normal pharynx Neck: supple Respiratory: no retraction, no accessory muscle use, CTA bilaterally Cardiovascular #1: regular rate, rhythm Gastrointestinal: non tender, soft Musculoskeletal: normal inspection Neurologic: Confusion, knows name Skin: no rash, mild edema Impression: Congestive Heart Failure Intermittent atrial flutter Elevated Troponin Pneumonia Urinary tract infection Hypertension Chronic Obstructive Pulmonary Disease Plan Diurese PRN IV AB HHN O2 PRN [employer] medications PPX Monitor labs Labs noted EKG: Rate: SR 77 Rhythm: NSR, no PVC's, no ectopy Subjective ROS Limited/Unobtainable: No Allergies: Coded Allergies: No Known Allergies (Unverified , 06/03/17) Objective Last 24 Hour Vital Signs Date Time Temp Pulse Resp B/P (MAP) Pulse Ox O2 Delivery O2 Flow Rate FiO2 07/27/19 12:00 97.5 76 22 170/73 (105) 94 07/27/19 12:00 3.0 07/27/19 11:43 85 07/27/19 09:08 178/101 07/27/19 09:07 106 178/101 07/27/19 09:06 178/101 07/27/19 09:00 Nasal Cannula 3.0 07/27/19 08:00 3.0 07/27/19 08:00 98.0 106 22 178/101 (126) 98 07/27/19 07:52 100 07/27/19 06:50 89 20 94 Nasal Cannula 2.0 28 07/27/19 06:50 94 Nasal Cannula 2.0 28 07/27/19 04:00 3.0 07/27/19 04:00 97.7 100 22 157/115 (129) 100 07/27/19 03:41 99 07/27/19 01:44 130 159/99 07/27/19 01:04 115 24 97 Nasal Cannula 3.0 32 110 24 94 07/27/19 00:00 97.7 100 22 156/107 (123) 100 07/27/19 00:00 4.0 07/26/19 23:49 99 07/26/19 23:49 99 07/26/19 22:05 163/81 07/26/19 21:00 Nasal Cannula 4.0 07/26/19 20:32 94 Nasal Cannula 4.0 36 07/26/19 20:00 97.5 99 22 163/81 (108) 99 07/26/19 20:00 4.0 07/26/19 19:26 86 07/26/19 16:18 163/77 07/26/19 16:00 86 07/26/19 16:00 97.5 82 19 163/77 (105) 94 07/26/19 16:00 4.0 Intake and Output 07/26/19 07/27/19 18:59 06:59 Intake Total 700 ml 110 ml Output Total 450 ml Balance 700 ml -340 ml Intake Oral 700 ml 0 ml IV Total 110 ml Output Urine Total 450 ml # Voids 5 2 # Bowel Movements 2 Laboratory Tests 07/27/19 03:50: White Blood Count 11.9H, Red Blood Count 5.33, Hemoglobin 16.9, Hematocrit 49.9 , Mean Corpuscular Volume 94, Mean Corpuscular Hemoglobin 31.7H, Mean Corpuscular Hemoglobin Concent 33.8, Red Cell Distribution Width 12.1, Platelet Count 283, Mean Platelet Volume 5.5L, Neutrophils (%) (Auto) 84.1H, Lymphocytes (%) (Auto) 7.7L, Monocytes (%) (Auto) 7.7, Eosinophils (%) (Auto) 0.1, Basophils (%) (Auto) 0.5, Sodium Level 150H, Potassium Level 3.8, Chloride Level 106, Carbon Dioxide Level 38H, Anion Gap 6, Blood Urea Nitrogen 32H, Creatinine 0.6, Estimat Glomerular Filtration Rate > 60, Glucose Level 153H, Calcium Level 9.6, Magnesium Level 2.4, Total Bilirubin 0.5, Aspartate Amino Transf (AST/SGOT) 24, Alanine Aminotransferase (ALT/SGPT) 29, Alkaline Phosphatase 74, Pro-B-Type Natriuretic Peptide 30956S, Total Protein 6.9, Albumin 3.0L, Globulin 3.9, Albumin/Globulin Ratio 0.8L Current Medications Medications (Trade) Dose Ordered Sig/Amaris Route PRN Reason Start Time Stop Time Status Last Admin Dose Admin Acetaminophen (Tylenol) 650 mg Q4H PRN ORAL Mild Pain/Temp > 100.5 07/21/19 18:00 08/20/19 17:59 Acetaminophen (Tylenol) 1,000 mg Q6H PRN ORAL Moderate Pain (Pain Scale 4-6) 07/21/19 18:00 08/20/19 17:59 Albuterol/ Ipratropium (Albuterol/ Ipratropium) 3 ml Q4HRT PRN HHN Shortness of Breath 07/23/19 02:30 07/28/19 02:29 07/27/19 00:41 Amiodarone HCl (Cordarone) 200 mg DAILY ORAL 07/26/19 09:00 08/25/19 08:59 07/27/19 09:07 Ascorbic Acid (Vitamin C) 500 mg DAILY ORAL 07/22/19 09:00 08/21/19 08:59 07/27/19 09:06 Atorvastatin Calcium (Lipitor) 40 mg BEDTIME ORAL 07/21/19 21:00 08/20/19 20:59 07/25/19 21:12 Ceftriaxone Sodium 1 gm/ Dextrose 55 ml @ 110 mls/hr Q24H IVPB 07/22/19 13:00 07/29/19 12:59 07/27/19 13:30 Clopidogrel Bisulfate (Plavix) 75 mg DAILY ORAL 07/22/19 09:00 08/21/19 08:59 07/27/19 09:07 Dextrose 1,000 ml @ 100 mls/hr Q10H IV 07/27/19 13:45 08/26/19 13:44 07/27/19 13:47 Doxycycline Hyclate 100 mg/ Dextrose 110 ml @ 110 mls/hr Q12H IV 07/26/19 12:00 08/02/19 11:59 07/27/19 11:46 Heparin Sodium (Porcine) (Heparin 5000 units/ml) 5,000 units EVERY 12 HOURS SUBQ 07/21/19 21:00 08/20/19 20:59 07/27/19 09:10 Hydralazine HCl (Apresoline) 10 mg Q6H PRN IV For High Blood Pressure 07/26/19 12:15 08/25/19 12:14 07/26/19 22:05 Hydralazine HCl (Apresoline) 25 mg Q6H PRN ORAL For High Blood Pressure 07/21/19 18:15 08/20/19 18:14 Isosorbide Mononitrate (Imdur) 30 mg DAILY ORAL 07/22/19 09:00 08/21/19 08:59 07/27/19 09:06 Lactulose (Cephulac) 20 gm Q12HR ORAL 07/21/19 21:00 08/20/19 20:59 07/25/19 21:11 Metoprolol Tartrate (Lopressor) 50 mg Q12HR ORAL 07/27/19 09:00 08/26/19 08:59 07/27/19 09:07 Multivitamins (Multivitamins) 1 tab DAILY ORAL 07/22/19 09:00 08/21/19 08:59 07/27/19 09:07 Nitroglycerin (Ntg) 0.4 mg Q5M PRN SL chest pain 07/21/19 18:00 08/20/19 17:59 Ondansetron HCl (Zofran) 4 mg Q4H PRN IVP Nausea & Vomiting 07/22/19 18:30 08/21/19 18:29 07/22/19 18:36 Pantoprazole (Protonix) 40 mg DAILY ORAL 07/22/19 09:00 08/21/19 08:59 07/27/19 09:08 Ramipril (Altace) 10 mg DAILY ORAL 07/26/19 09:00 08/25/19 08:59 07/27/19 09:08 Thiamine HCl (Vitamin B1) 100 mg DAILY ORAL 07/22/19 09:00 08/21/19 08:59 07/27/19 09:08 Vitamin D (Vitamin D) 5,000 intlu DAILY ORAL 07/22/19 09:00 08/21/19 08:59 07/27/19 09:09 Saeed Pierre MD Jul 27, 2019 15:05
[2019-07-27] MEDS: Atorvastatin 20mg tab ORAL SCH (19:58)
[2019-07-28] VITALS: BP 153/68
--- NOTE | 2019-07-28 02:15 | Progress Note ---
DATE: 07/27/2019 CARDIOLOGY PROGRESS NOTE SUBJECTIVE: The patient has difficulty eating. He needs one-to-one assist. He has congestion, but is less short of breath. Monitored rhythm, atrial fibrillation. PHYSICAL EXAMINATION: VITAL SIGNS: Blood pressure 153/80, heart rate 89, and respiratory rate 23. LUNGS: Bilateral breath sounds and rhonchi. CARDIAC: Irregularly irregular rhythm. Normal S1 and S2. ABDOMEN: Soft. EXTREMITIES: Trace edema. LABORATORY DATA: White count 11.9 and hemoglobin 16.9. Sodium 150, potassium 3.8, bicarbonate 38, BUN 32, and creatinine 0.6. Pro-natriuretic peptide 13,000. Albumin 3. IMPRESSION: 1. Dehydration. 2. Hypernatremia. 3. Prerenal azotemia. 4. Contraction alkalosis. 5. Acute and chronic diastolic congestive heart failure. 6. Acute myocardial ischemia. 7. Aspiration pneumonia. 8. Status post non-ST elevation myocardial infarction. 9. Mild to moderate protein-calorie malnutrition. PLAN: 1. Amiodarone to maintain sinus rhythm, loading dosing now. 2. Hypotonic IV fluids. 3. Aspiration precautions. 4. One-to-one feeding. 5. Hold diuretics. 6. Bronchodilators and respiratory hygiene. 7. Reassess for long-term anticoagulation based on risk to benefit ratio. Saeed Sim M.D. DR: LIZETTE JOB#: [id number] CC:
[2019-07-28 04:00] VITALS: BP 133/88
[2019-07-28 04:32] LABS: BASOPHILS % (AUTO) 0.8 % (0.0-2.0); HEMATOCRIT 47.6 % (42.0-52.0); HEMOGLOBIN 15.8 G/DL (14.2-18.0); LYMPHOCYTES % (AUTO) 9.6 % (20.0-45.0); MEAN CORPUSCULAR VOLUME 94 FL (80-99); MONOCYTES % (AUTO) 7.8 % (1.0-10.0); NEUTROPHILS % (AUTO) 81.9 % (45.0-75.0); PLATELET COUNT 260 K/UL (150-450); RED BLOOD COUNT 5.08 M/UL (4.70-6.10); RED CELL DISTRIBUTION WIDTH 12.3 % (11.6-14.8); WHITE BLOOD COUNT 10.6 K/UL (4.8-10.8)
[2019-07-28 05:01] LABS: ALANINE AMINOTRANSFERASE 24 U/L (12-78); ALBUMIN 2.7 G/DL (3.4-5.0); ALBUMIN/GLOBULIN RATIO 0.7 (1.0-2.7); ALKALINE PHOSPHATASE 60 U/L (46-116); ANION GAP -1 mmol/L (5-15); ASPARTATE AMINO TRANSFERASE 23 U/L (15-37); BILIRUBIN,TOTAL 0.4 MG/DL (0.2-1.0); BLOOD UREA NITROGEN 31 mg/dL (7-18); CHLORIDE 105 MMOL/L (98-107); CREATININE 0.6 MG/DL (0.55-1.30); POTASSIUM 3.7 MMOL/L (3.5-5.1); SODIUM 146 MMOL/L (136-145)
[2019-07-28 05:04] LABS: CARBON DIOXIDE 43 MMOL/L (21-32)
[2019-07-28 08:00] VITALS: BP 157/83
[2019-07-28] MEDS: Ascorbic Acid 500mg tab ORAL SCH (09:13)
[2019-07-28] MEDS: Lactulose 20gm/30ml UDC ORAL SCH ×2 (09:13→21:53)
[2019-07-28] MEDS: Imdur 30mg tab ORAL SCH (09:14)
[2019-07-28] MEDS: Vitamin D 1000 IU Tab ORAL SCH (09:14)
[2019-07-28] MEDS: Amiodarone 200mg tab ORAL SCH ×2 (09:16→17:20)
[2019-07-28] MEDS: Ramipril 2.5mg cap ORAL SCH (09:21)
[2019-07-28] MEDS: Thiamine 100mg tab ORAL SCH (09:21)
[2019-07-28] MEDS: Metoprolol Tartrate 50mg tab ORAL SCH ×2 (09:24→21:54)
[2019-07-28] MEDS: Heparin 5000 units/ml inj SUBQ SCH ×2 (09:24→21:58)
[2019-07-28] MEDS: Doxycycline Hyclate 100 MG in D5W 110 ML IV SCH (11:13)
[2019-07-28 12:00] VITALS: BP 147/77
[2019-07-28] MEDS: cefTRIAXone 1 GM in D5W 55 ML IVPB SCH (12:41)
[2019-07-28 16:00] VITALS: BP 160/78
[2019-07-28 20:00] VITALS: BP 160/78
[2019-07-28] MEDS: Atorvastatin 20mg tab ORAL SCH (21:56)
--- NOTE | 2019-07-28 23:00 | Progress Note ---
DATE: 07/28/2019 SUBJECTIVE: The patient still has some congestion, episodes of shortness of breath. He remains on free water replacement. Diuretics on hold. Monitored sinus with paroxysmal atrial fibrillation. Remains on amiodarone loading. OBJECTIVE: LUNGS: Bilateral breath sounds. Few rhonchi. CARDIAC: Irregularly irregular rhythm. Normal S1 and S2. ABDOMEN: Soft. EXTREMITIES: Trace edema. LABORATORY DATA: Sodium 146, potassium 3.7, bicarb 23, BUN 31, and creatinine 0.6. Pro-natriuretic peptide 15,000. ABG - 7.34, 81, 76. White count 10, hemoglobin 16. IMPRESSION: 1. Acute non-ST elevation myocardial infarction. 2. Chronic obstructive pulmonary disease exacerbation. 3. Acute on chronic respiratory acidosis. 4. Compensatory metabolic alkalosis. 5. Dehydration. 6. Hypernatremia. 7. Moderate protein-calorie malnutrition. 8. Aspiration with pneumonia. PLAN: 1. Antimicrobials. 2. Bronchodilators. 3. Respiratory hygiene. 4. Free water replacement. 5. Monitor acid-base parameters. 6. DVT prophylaxis. 7. Continue amiodarone loading. 8. Hold all diuretics for now. 9. Aspiration precaution. Saeed Sim M.D. DR: RAUL JOB#: [id number] CC:
[2019-07-29] VITALS: BP 137/72
[2019-07-29] MEDS: Doxycycline Hyclate 100 MG in D5W 110 ML IV SCH ×2 (00:20→12:40)
[2019-07-29 04:00] VITALS: BP 126/61
[2019-07-29 04:46] LABS: BASOPHILS % (AUTO) 0.6 % (0.0-2.0); EOSINOPHILS % (AUTO) 0.6 % (0.0-3.0); HEMATOCRIT 47.7 % (42.0-52.0); HEMOGLOBIN 15.1 G/DL (14.2-18.0); LYMPHOCYTES % (AUTO) 12.2 % (20.0-45.0); MEAN CORPUSCULAR VOLUME 95 FL (80-99); MONOCYTES % (AUTO) 7.1 % (1.0-10.0); NEUTROPHILS % (AUTO) 79.5 % (45.0-75.0); PLATELET COUNT 267 K/UL (150-450); RED BLOOD COUNT 5.05 M/UL (4.70-6.10); RED CELL DISTRIBUTION WIDTH 13.9 % (11.6-14.8); WHITE BLOOD COUNT 8.5 K/UL (4.8-10.8)
[2019-07-29 05:21] LABS: ALANINE AMINOTRANSFERASE 25 U/L (12-78); ALBUMIN 2.5 G/DL (3.4-5.0); ALBUMIN/GLOBULIN RATIO 0.8 (1.0-2.7); ALKALINE PHOSPHATASE 56 U/L (46-116); ANION GAP 3 mmol/L (5-15); ASPARTATE AMINO TRANSFERASE 17 U/L (15-37); BILIRUBIN,TOTAL 0.5 MG/DL (0.2-1.0); BLOOD UREA NITROGEN 26 mg/dL (7-18); CALCIUM 8.4 MG/DL (8.5-10.1); CARBON DIOXIDE 33 MMOL/L (21-32); CHLORIDE 101 MMOL/L (98-107); CHOLESTEROL 104 MG/DL (< 200); CREATINE KINASE 32 U/L (26-308); CREATININE 0.8 MG/DL (0.55-1.30); HDL CHOLESTEROL 37 MG/DL (40-60); POTASSIUM 3.3 MMOL/L (3.5-5.1); SODIUM 144 MMOL/L (136-145); TRIGLYCERIDES 65 MG/DL (30-150)
[2019-07-29 08:00] VITALS: BP 148/71
[2019-07-29] MEDS ORDERED: NS 275ml ONE (08:55)
[2019-07-29] MEDS: Vitamin D 1000 IU Tab ORAL SCH ×2 (09:00→09:27)
[2019-07-29] MEDS: Amiodarone 200mg tab ORAL SCH ×3 (09:00→17:13)
[2019-07-29] MEDS: Ramipril 2.5mg cap ORAL SCH ×2 (09:00→09:26)
[2019-07-29] MEDS: Ascorbic Acid 500mg tab ORAL SCH ×2 (09:00→09:25)
[2019-07-29] MEDS: Thiamine 100mg tab ORAL SCH ×2 (09:00→09:26)
[2019-07-29] MEDS: Metoprolol Tartrate 50mg tab ORAL SCH ×3 (09:00→21:57)
[2019-07-29] MEDS: Imdur 30mg tab ORAL SCH ×2 (09:00→09:25)
[2019-07-29] MEDS: Heparin 5000 units/ml inj SUBQ SCH ×2 (09:27→21:55)
--- NOTE | 2019-07-29 11:25 | Pulmonology Progress Note ---
Assessment/Plan Problems: (1) Nosocomial pneumonia (2) Acute respiratory failure (3) COPD (chronic obstructive pulmonary disease) (4) Atrial fibrillation (5) UTI (urinary tract infection) (6) CAD (coronary artery disease) (7) History of hypertension (8) Dementia with behavioral disturbance Assessment/Plan respiratory treatment titrate fio2 Echo reviewed, EF of 40% continue abx, ID will see the patient heart rate is controlled repeat CXR dc iv fluids, Na is better speech note reviewed, Agree with video swallow, since pts sometimes and hypoxemia don't correlate with minimal findings on CXr. repeat CXR today. BNP noticed, repeat BNP in am again chronic anticoagulation as per cardiology Subjective ROS Limited/Unobtainable: No Interval Events: awake, on face mask Allergies: Coded Allergies: No Known Allergies (Unverified , 06/03/17) Objective Last 24 Hour Vital Signs Date Time Temp Pulse Resp B/P (MAP) Pulse Ox O2 Delivery O2 Flow Rate FiO2 07/29/19 09:00 Bi-pap 07/29/19 08:51 63 14 95 30 07/29/19 08:00 78 07/29/19 08:00 30 07/29/19 08:00 97.6 78 24 148/71 (96) 99 07/29/19 07:00 71 26 96 30 07/29/19 07:00 96 Bi-Pap 30 07/29/19 05:15 77 17 98 30 07/29/19 04:00 97.5 60 18 126/61 (82) 95 07/29/19 04:00 30 07/29/19 03:00 80 19 98 30 07/29/19 01:06 80 21 97 30 07/29/19 00:00 98.6 77 21 137/72 (93) 97 07/29/19 00:00 30 07/28/19 23:27 67 07/28/19 23:22 82 21 96 30 07/28/19 21:54 87 160/78 07/28/19 21:05 80 22 97 30 07/28/19 21:00 Bi-pap 07/28/19 20:00 97.8 87 16 160/78 (105) 96 07/28/19 20:00 30 07/28/19 19:15 99 07/28/19 19:00 95 Bi-Pap 30 07/28/19 19:00 89 22 95 30 07/28/19 17:06 90 24 96 30 07/28/19 16:00 97.4 92 24 160/78 (105) 95 07/28/19 16:00 30 07/28/19 16:00 85 07/28/19 14:59 60 16 95 30 07/28/19 13:30 63 22 96 30 07/28/19 12:00 30 07/28/19 12:00 74 07/28/19 12:00 97.6 82 24 147/77 (100) 95 Intake and Output 07/28/19 07/29/19 19:00 07:00 Intake Total 920 ml 600 ml Output Total 200 ml Balance 920 ml 400 ml Intake Oral 0 ml IV Total 920 ml 600 ml Output Urine Total 200 ml # Voids 2 2 General Appearance: WD/WN HEENT: normocephalic, atraumatic Respiratory/Chest: crackles/rales Cardiovascular: normal peripheral pulses, normal rate Abdomen: normal bowel sounds, soft, non tender Genitourinary: normal external genitalia Extremities: no clubbing 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/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 II-XII grossly normal Lymphatic: no neck adenopathy Laboratory Tests 07/29/19 02:40: White Blood Count 8.5, Red Blood Count 5.05, Hemoglobin 15.1, Hematocrit 47.7, Mean Corpuscular Volume 95, Mean Corpuscular Hemoglobin 29.9, Mean Corpuscular Hemoglobin Concent 31.6L, Red Cell Distribution Width 13.9, Platelet Count 267, Mean Platelet Volume 7.4, Neutrophils (%) (Auto) 79.5H, Lymphocytes (%) (Auto) 12.2L, Monocytes (%) (Auto) 7.1, Eosinophils (%) (Auto) 0.6, Basophils (%) (Auto ) 0.6, Sodium Level 144, Potassium Level 3.3L, Chloride Level 101, Carbon Dioxide Level 33H, Anion Gap 3L, Blood Urea Nitrogen 26H, Creatinine 0.8, Estimat Glomerular Filtration Rate > 60, Glucose Level 167H, Calcium Level 8.4L , Total Bilirubin 0.5, Aspartate Amino Transf (AST/SGOT) 17, Alanine Aminotransferase (ALT/SGPT) 25, Alkaline Phosphatase 56, Total Creatine Kinase 32, Pro-B-Type Natriuretic Peptide 7713H, Total Protein 5.7L, Albumin 2.5L, Globulin 3.2, Albumin/Globulin Ratio 0.8L, Triglycerides Level 65, Cholesterol Level 104, LDL Cholesterol 54, HDL Cholesterol 37L, Cholesterol/HDL Ratio 2.8L 07/29/19 10:29: Arterial Blood pH 7.468H, Arterial Blood Partial Pressure CO2 58.7*H, Arterial Blood Partial Pressure O2 74.6L, Arterial Blood HCO3 41.6*H, Arterial Blood Oxygen Saturation 95.5, Arterial Blood Base Excess 14.6*H, Joe Test Positive Current Medications Medications (Trade) Dose Ordered Sig/Amaris Route PRN Reason Start Time Stop Time Status Last Admin Dose Admin Acetaminophen (Tylenol) 650 mg Q4H PRN ORAL Mild Pain/Temp > 100.5 07/21/19 18:00 08/20/19 17:59 Acetaminophen (Tylenol) 1,000 mg Q6H PRN ORAL Moderate Pain (Pain Scale 4-6) 07/21/19 18:00 08/20/19 17:59 Amiodarone HCl (Cordarone) 200 mg BID ORAL 07/28/19 09:00 08/27/19 08:59 07/28/19 09:16 Atorvastatin Calcium (Lipitor) 40 mg BEDTIME ORAL 07/21/19 21:00 08/20/19 20:59 07/28/19 21:56 Ceftriaxone Sodium 1 gm/ Dextrose 55 ml @ 110 mls/hr Q24H IVPB 07/22/19 13:00 07/29/19 12:59 07/28/19 12:41 Clopidogrel Bisulfate (Plavix) 75 mg DAILY ORAL 07/22/19 09:00 08/21/19 08:59 07/28/19 09:13 Doxycycline Hyclate 100 mg/ Dextrose 110 ml @ 110 mls/hr Q12H IV 07/26/19 12:00 08/02/19 11:59 07/29/19 00:20 Heparin Sodium (Porcine) (Heparin 5000 units/ml) 5,000 units EVERY 12 HOURS SUBQ 07/21/19 21:00 08/20/19 20:59 07/29/19 09:27 Hydralazine HCl (Apresoline) 10 mg Q6H PRN IV For High Blood Pressure 07/26/19 12:15 08/25/19 12:14 07/27/19 19:59 Hydralazine HCl (Apresoline) 25 mg Q6H PRN ORAL For High Blood Pressure 07/21/19 18:15 08/20/19 18:14 Isosorbide Mononitrate (Imdur) 30 mg DAILY ORAL 07/22/19 09:00 08/21/19 08:59 07/28/19 09:14 Metoprolol Tartrate (Lopressor) 50 mg Q12HR ORAL 07/27/19 09:00 08/26/19 08:59 07/28/19 21:54 Ondansetron HCl (Zofran) 4 mg Q4H PRN IVP Nausea & Vomiting 07/22/19 18:30 08/21/19 18:29 07/22/19 18:36 Pantoprazole (Protonix) 40 mg DAILY ORAL 07/22/19 09:00 08/21/19 08:59 07/28/19 09:22 Ramipril (Altace) 10 mg DAILY ORAL 07/26/19 09:00 08/25/19 08:59 07/28/19 09:21 Thiamine HCl (Vitamin B1) 100 mg DAILY ORAL 07/22/19 09:00 08/21/19 08:59 07/28/19 09:21 Vitamin D (Vitamin D) 5,000 intlu DAILY ORAL 07/22/19 09:00 08/21/19 08:59 07/28/19 09:14 Nicole Graves MD Jul 29, 2019 11:25
--- NOTE | 2019-07-29 14:44 | Diagnostic Imaging Report ---
Indication: Dyspnea Comparison: 07/24/2019 A single view chest radiograph was obtained. Findings: Patchy right basilar infiltrate may be present. Heart is enlarged. IMPRESSION: Suspected infiltrate right lung base
[2019-07-29 16:00] VITALS: BP 141/91
--- NOTE | 2019-07-29 18:03 | Infectious Diseases Prog Note ---
Subjective Allergies: Coded Allergies: No Known Allergies (Unverified , 06/03/17) Subjective # [id number] Objective Vital Signs Last 24 Hour Vital Signs Date Time Temp Pulse Resp B/P (MAP) Pulse Ox O2 Delivery O2 Flow Rate FiO2 07/29/19 16:27 83 07/29/19 16:00 97.8 99 23 141/91 (108) 94 07/29/19 16:00 30 07/29/19 12:00 30 07/29/19 09:00 Bi-pap 07/29/19 08:51 63 14 95 30 07/29/19 08:00 78 07/29/19 08:00 30 07/29/19 08:00 97.6 78 24 148/71 (96) 99 07/29/19 07:00 71 26 96 30 07/29/19 07:00 96 Bi-Pap 30 07/29/19 05:15 77 17 98 30 07/29/19 04:00 97.5 60 18 126/61 (82) 95 07/29/19 04:00 30 07/29/19 03:00 80 19 98 30 07/29/19 01:06 80 21 97 30 07/29/19 00:00 98.6 77 21 137/72 (93) 97 07/29/19 00:00 30 07/28/19 23:27 67 07/28/19 23:22 82 21 96 30 07/28/19 21:54 87 160/78 07/28/19 21:05 80 22 97 30 07/28/19 21:00 Bi-pap 07/28/19 20:00 97.8 87 16 160/78 (105) 96 07/28/19 20:00 30 07/28/19 19:15 99 07/28/19 19:00 95 Bi-Pap 30 07/28/19 19:00 89 22 95 30 Height (Feet): 5 Height (Inches): 6.00 Weight (Pounds): 206 Laboratory Tests Test 07/29/19 02:40 07/29/19 10:29 White Blood Count 8.5 K/UL (4.8-10.8) Red Blood Count 5.05 M/UL (4.70-6.10) Hemoglobin 15.1 G/DL (14.2-18.0) Hematocrit 47.7 % (42.0-52.0) Mean Corpuscular Volume 95 FL (80-99) Mean Corpuscular Hemoglobin 29.9 PG (27.0-31.0) Mean Corpuscular Hemoglobin Concent 31.6 G/DL (32.0-36.0) L Red Cell Distribution Width 13.9 % (11.6-14.8) Platelet Count 267 K/UL (150-450) Mean Platelet Volume 7.4 FL (6.5-10.1) Neutrophils (%) (Auto) 79.5 % (45.0-75.0) H Lymphocytes (%) (Auto) 12.2 % (20.0-45.0) L Monocytes (%) (Auto) 7.1 % (1.0-10.0) Eosinophils (%) (Auto) 0.6 % (0.0-3.0) Basophils (%) (Auto) 0.6 % (0.0-2.0) Sodium Level 144 MMOL/L (136-145) Potassium Level 3.3 MMOL/L (3.5-5.1) L Chloride Level 101 MMOL/L (98-107) Carbon Dioxide Level 33 MMOL/L (21-32) H Anion Gap 3 mmol/L (5-15) L Blood Urea Nitrogen 26 mg/dL (7-18) H Creatinine 0.8 MG/DL (0.55-1.30) Estimat Glomerular Filtration Rate > 60 mL/min (>60) Glucose Level 167 MG/DL (74-106) H Calcium Level 8.4 MG/DL (8.5-10.1) L Total Bilirubin 0.5 MG/DL (0.2-1.0) Aspartate Amino Transf (AST/SGOT) 17 U/L (15-37) Alanine Aminotransferase (ALT/SGPT) 25 U/L (12-78) Alkaline Phosphatase 56 U/L (46-116) Total Creatine Kinase 32 U/L (26-308) Pro-B-Type Natriuretic Peptide 7713 pg/mL (0-125) H Total Protein 5.7 G/DL (6.4-8.2) L Albumin 2.5 G/DL (3.4-5.0) L Globulin 3.2 g/dL Albumin/Globulin Ratio 0.8 (1.0-2.7) L Triglycerides Level 65 MG/DL (30-150) Cholesterol Level 104 MG/DL (< 200) LDL Cholesterol 54 mg/dL (<100) HDL Cholesterol 37 MG/DL (40-60) L Cholesterol/HDL Ratio 2.8 (3.3-4.4) L HIV (1&2) Antibody Rapid Negative (NEGATIVE) Arterial Blood pH 7.468 (7.350-7.450) Arterial Blood Partial Pressure CO2 58.7 mmHg (35.0-45.0) *H Arterial Blood Partial Pressure O2 74.6 mmHg (75.0-100.0) L Arterial Blood HCO3 41.6 mmol/L (22.0-26.0) *H Arterial Blood Oxygen Saturation 95.5 % (95-100) Arterial Blood Base Excess 14.6 (-2-2) *H Joe Test Positive Current Medications Medications (Trade) Dose Ordered Sig/Amaris Route PRN Reason Start Time Stop Time Status Last Admin Dose Admin Acetaminophen (Tylenol) 650 mg Q4H PRN ORAL Mild Pain/Temp > 100.5 07/21/19 18:00 08/20/19 17:59 Acetaminophen (Tylenol) 1,000 mg Q6H PRN ORAL Moderate Pain (Pain Scale 4-6) 07/21/19 18:00 08/20/19 17:59 Amiodarone HCl (Cordarone) 200 mg BID ORAL 07/28/19 09:00 08/27/19 08:59 07/29/19 17:13 Atorvastatin Calcium (Lipitor) 40 mg BEDTIME ORAL 07/21/19 21:00 08/20/19 20:59 07/28/19 21:56 Clopidogrel Bisulfate (Plavix) 75 mg DAILY ORAL 07/22/19 09:00 08/21/19 08:59 07/28/19 09:13 Doxycycline Hyclate 100 mg/ Dextrose 110 ml @ 110 mls/hr Q12H IV 07/26/19 12:00 08/02/19 11:59 07/29/19 12:40 Heparin Sodium (Porcine) (Heparin 5000 units/ml) 5,000 units EVERY 12 HOURS SUBQ 07/21/19 21:00 08/20/19 20:59 07/29/19 09:27 Hydralazine HCl (Apresoline) 10 mg Q6H PRN IV For High Blood Pressure 07/26/19 12:15 08/25/19 12:14 07/27/19 19:59 Hydralazine HCl (Apresoline) 25 mg Q6H PRN ORAL For High Blood Pressure 07/21/19 18:15 08/20/19 18:14 Isosorbide Mononitrate (Imdur) 30 mg DAILY ORAL 07/22/19 09:00 08/21/19 08:59 07/28/19 09:14 Metoprolol Tartrate (Lopressor) 50 mg Q12HR ORAL 07/27/19 09:00 08/26/19 08:59 07/28/19 21:54 Ondansetron HCl (Zofran) 4 mg Q4H PRN IVP Nausea & Vomiting 07/22/19 18:30 08/21/19 18:29 07/22/19 18:36 Pantoprazole (Protonix) 40 mg DAILY ORAL 07/22/19 09:00 08/21/19 08:59 07/28/19 09:22 Ramipril (Altace) 10 mg DAILY ORAL 07/26/19 09:00 08/25/19 08:59 07/28/19 09:21 Thiamine HCl (Vitamin B1) 100 mg DAILY ORAL 07/22/19 09:00 08/21/19 08:59 07/28/19 09:21 Vitamin D (Vitamin D) 5,000 intlu DAILY ORAL 07/22/19 09:00 08/21/19 08:59 07/28/19 09:14 Angel Rudolph MD Jul 29, 2019 18:03
[2019-07-29 20:00] VITALS: BP 155/99
[2019-07-29] MEDS: cefTRIAXone 2 GM in D5W 110 ML IVPB SCH (21:56)
[2019-07-29] MEDS: Atorvastatin 20mg tab ORAL SCH (21:56)
[2019-07-29] MEDS ORDERED: Haloperidol 5mg/ml Inj IM PRN (23:30)
[2019-07-30] VITALS: BP 155/74
--- NOTE | 2019-07-30 | Consultation ---
DATE OF CONSULTATION: 07/29/2019 INFECTIOUS DISEASE CONSULTATION CONSULTING PHYSICIAN: Angel Rudolph M.D REFERRING PHYSICIAN: Nicole Graves M.D. REASON FOR CONSULTATION: Evaluation of the patient for UTI, pneumonia, antibiotic management. HISTORY OF PRESENT ILLNESS: The patient is a 79-year-old male with multiple medical problems, as listed below, who was admitted to this medical center about a week ago for weakness. The patient was admitted with impression of pneumonia, urinary tract infection. Infectious Disease consultation has been requested for further evaluation of the patient's antibiotic management. The patient is a poor historian. Much of the information is gathered through the chart and speaking to staff. PAST MEDICAL HISTORY: 1. Hyperlipidemia. 2. COPD. 3. History of GERD. 4. History of encephalopathy. 5. History of CAD/NC. 6. History of cardiomyopathy. 7. Hypertension. ALLERGIES: No known drug allergies. SOCIAL HISTORY: The patient has history of alcohol abuse. FAMILY HISTORY: Noncontributory. REVIEW OF SYSTEMS: Unobtainable. MEDICATION: Rocephin day #7. PHYSICAL EXAMINATION: VITAL SIGNS: Temperature 97.8, pulse 86, respiratory rate 18, blood pressure 141/91. HEENT: No pale conjunctivae. No icterus. NECK: No lymphadenopathy. CHEST: Coarse breathing sounds. HEART: S1-S2. ABDOMEN: Soft, nontender. EXTREMITIES: No cyanosis at this time. NEUROLOGIC: Nonverbal. The patient is awake. LABORATORY AND DIAGNOSTIC DATA: White blood cells 8.5, hemoglobin 15, platelets 267. UA 15 to 20 white blood cells. HIV serology negative. BUN 26, creatinine 0.8. ALT, AST, alkaline phosphatase unremarkable. BNP 7000. Urine cultures growing Klebsiella. Chest x-ray, right lung base infiltrate. ASSESSMENT: The patient is a 79-year-old male with: 1. Status post sepsis. 2. Pneumonia. 3. Urinary tract infection. 4. Afebrile. PLAN: 1. We will continue the patient on Rocephin day #12/11/13. 2. Monitor CBC. 3. Monitor BMP. 4. Monitor chest x-ray. 5. Monitor the patient's clinical course and laboratories and based on those, we will do further recommendations. Thank you, Dr. Graves, for allowing me to participate in the care of this patient. I will follow the patient with you during this hospitalization. Angel Rudolph M.D. DR: PORFIRIO JOB#: [id number] CC:
[2019-07-30] MEDS: Doxycycline Hyclate 100 MG in D5W 110 ML IV SCH ×3 (00:28→23:42)
--- NOTE | 2019-07-30 02:15 | Progress Note ---
DATE: 07/29/2019 CARDIOLOGY PROGRESS NOTE SUBJECTIVE: Still with congestion. Difficulty with oral intake due to aspiration. Monitored rhythm, atrial fibrillation with episodes of sinus. On BiPAP support. OBJECTIVE: VITAL SIGNS: Blood pressure 141/91, pulse 99, respirations 23, afebrile. LUNGS: Coarse breath sounds. Rhonchi. CARDIAC: Irregularly irregular rhythm. Normal S1, S2. ABDOMEN: Soft. EXTREMITIES: Trace edema. IMPRESSION: 1. Sepsis. 2. Pneumonia, aspiration. 3. Acute on chronic diastolic congestive heart failure. 4. Cug-WO-cnsmpvqav myocardial infarction. 5. Hypertensive heart disease. 6. Dehydration. 7. Hypernatremia, corrected. 8. Paroxysmal atrial fibrillation. PLAN: 1. Antiplatelet therapy. 2. Reassess for full anticoagulation, however, bleeding risk remain a concern. 3. Amiodarone loading. 4. Discontinue IV fluids. 5. Antimicrobials. 6. Respiratory hygiene. 7. Aspiration precautions. 8. May need G-tube. Saeed Sim M.D. DR: ELEANOR JOB#: [id number] CC:
[2019-07-30 04:00] VITALS: BP 161/74
--- NOTE | 2019-07-30 04:15 | Consultation ---
DATE OF CONSULTATION: CONSULTING PHYSICIAN: Duarte Vizcarra M.D. HISTORY OF PRESENT ILLNESS: The patient is a 79-year-old male with a history of pneumonia, COPD, AFib, dementia, UTI, CAD, who has been admitted to the hospital for medical stabilization. The patient is alert, although is confused, not able to be engaged and answer the questions. The patient has been refusing medications and treatment. The patient is unable to understand, process, communicate rationally. The patient is having poor cognition. PAST PSYCHIATRIC HISTORY: Significant for dementia with behavior disturbance. The patient is unable to provide any history reconciliation. She was not positive for any drugs. PAST MEDICAL HISTORY: Significant for COPD, CAD, AFib, UTI. ALLERGIES: No known drug allergies. SUBSTANCE ABUSE HISTORY: No known history of illicit drug use or alcohol. MENTAL STATUS EXAMINATION: The patient is alert, confused, disoriented. Mood is neutral. Affect is flat. Thought process, there is a paucity of thought content. No suicidal or homicidal ideation. Cognition is impaired. Insight and judgment impaired. ASSESSMENT: [place] I Dementia with behavior disturbance. [place] II Deferred. [place] III As above. [place] IV Low. [place] V 20. PLAN: 1. The patient lacks capacity to make decisions. The patient's medication should be given to him against his will in food. 2. The patient's kin should make all the decision. 3. Dario borrego . Duarte Vizcarra M.D. DR: TIKI JOB#: [id number] CC:
[2019-07-30 07:48] LABS: BASOPHILS % (AUTO) 0.6 % (0.0-2.0); EOSINOPHILS % (AUTO) 0.6 % (0.0-3.0); HEMATOCRIT 47.9 % (42.0-52.0); HEMOGLOBIN 15.8 G/DL (14.2-18.0); LYMPHOCYTES % (AUTO) 15.1 % (20.0-45.0); MEAN CORPUSCULAR VOLUME 93 FL (80-99); MONOCYTES % (AUTO) 7.9 % (1.0-10.0); NEUTROPHILS % (AUTO) 75.7 % (45.0-75.0); PLATELET COUNT 284 K/UL (150-450); RED BLOOD COUNT 5.14 M/UL (4.70-6.10); RED CELL DISTRIBUTION WIDTH 12.2 % (11.6-14.8)
[2019-07-30 07:55] LABS: ALANINE AMINOTRANSFERASE 28 U/L (12-78); ALBUMIN 2.6 G/DL (3.4-5.0); ALBUMIN/GLOBULIN RATIO 0.7 (1.0-2.7); ALKALINE PHOSPHATASE 67 U/L (46-116); ANION GAP 7 mmol/L (5-15); ASPARTATE AMINO TRANSFERASE 25 U/L (15-37); BILIRUBIN,TOTAL 0.6 MG/DL (0.2-1.0); BLOOD UREA NITROGEN 20 mg/dL (7-18); CALCIUM 8.7 MG/DL (8.5-10.1); CARBON DIOXIDE 35 MMOL/L (21-32); CHLORIDE 106 MMOL/L (98-107); CREATININE 0.7 MG/DL (0.55-1.30); POTASSIUM 3.3 MMOL/L (3.5-5.1); SODIUM 148 MMOL/L (136-145)
[2019-07-30 08:00] VITALS: BP 177/96
[2019-07-30] MEDS: Thiamine 100mg tab ORAL SCH (08:25)
[2019-07-30] MEDS: Imdur 30mg tab ORAL SCH (08:25)
[2019-07-30] MEDS: Ramipril 2.5mg cap ORAL SCH (08:26)
[2019-07-30] MEDS: Metoprolol Tartrate 50mg tab ORAL SCH ×2 (08:26→21:04)
[2019-07-30] MEDS: Amiodarone 200mg tab ORAL SCH ×2 (08:27→17:22)
[2019-07-30] MEDS: Vitamin D 1000 IU Tab ORAL SCH (08:27)
[2019-07-30] MEDS: Heparin 5000 units/ml inj SUBQ SCH ×2 (08:28→21:06)
--- NOTE | 2019-07-30 09:30 | Infectious Diseases Prog Note ---
Assessment/Plan Assessment/Plan ASSESSMENT: The patient is a 79-year-old male with: Status post sepsis Pneumonia. Urinary tract infection. Afebrile. Hyperlipidemia. COPD. History of GERD. History of encephalopathy. History of CAD/ID. History of cardiomyopathy. 7. Hypertension. PLAN: continue the patient on Rocephin day # 01/11/14 , Dox # 5/5 Monitor CBC. Monitor BMP. Monitor chest x-ray. Subjective Allergies: Coded Allergies: No Known Allergies (Unverified , 06/03/17) Subjective afebrile Objective Vital Signs Last 24 Hour Vital Signs Date Time Temp Pulse Resp B/P (MAP) Pulse Ox O2 Delivery O2 Flow Rate FiO2 07/30/19 08:26 76 177/96 07/30/19 08:26 177/96 07/30/19 08:25 177/96 07/30/19 08:00 98.1 76 19 177/96 (123) 96 07/30/19 06:51 161/74 07/30/19 04:00 76 07/30/19 04:00 6.0 07/30/19 04:00 97.7 74 20 161/74 (103) 96 07/30/19 01:05 70 14 96 30 07/30/19 00:00 70 07/30/19 00:00 96.6 70 20 155/74 (101) 98 07/30/19 00:00 6.0 07/29/19 21:57 108 155/99 07/29/19 21:00 Venturi Mask 07/29/19 20:00 114 07/29/19 20:00 6.0 07/29/19 20:00 98.1 108 20 155/99 (117) 93 07/29/19 19:02 93 Venturi Mask 10.0 40 07/29/19 16:27 83 07/29/19 16:00 97.8 99 23 141/91 (108) 94 07/29/19 16:00 30 07/29/19 12:00 30 Height (Feet): 5 Height (Inches): 6.00 Weight (Pounds): 200 Respiratory/Chest: lungs clear Cardiovascular: regular rhythm Abdomen: soft, non tender Laboratory Tests Test 07/29/19 10:29 07/30/19 06:04 Arterial Blood pH 7.468 (7.350-7.450) Arterial Blood Partial Pressure CO2 58.7 mmHg (35.0-45.0) *H Arterial Blood Partial Pressure O2 74.6 mmHg (75.0-100.0) L Arterial Blood HCO3 41.6 mmol/L (22.0-26.0) *H Arterial Blood Oxygen Saturation 95.5 % (95-100) Arterial Blood Base Excess 14.6 (-2-2) *H Joe Test Positive White Blood Count 7.0 K/UL (4.8-10.8) Red Blood Count 5.14 M/UL (4.70-6.10) Hemoglobin 15.8 G/DL (14.2-18.0) Hematocrit 47.9 % (42.0-52.0) Mean Corpuscular Volume 93 FL (80-99) Mean Corpuscular Hemoglobin 30.7 PG (27.0-31.0) Mean Corpuscular Hemoglobin Concent 32.9 G/DL (32.0-36.0) Red Cell Distribution Width 12.2 % (11.6-14.8) Platelet Count 284 K/UL (150-450) Mean Platelet Volume 6.1 FL (6.5-10.1) L Neutrophils (%) (Auto) 75.7 % (45.0-75.0) H Lymphocytes (%) (Auto) 15.1 % (20.0-45.0) L Monocytes (%) (Auto) 7.9 % (1.0-10.0) Eosinophils (%) (Auto) 0.6 % (0.0-3.0) Basophils (%) (Auto) 0.6 % (0.0-2.0) Sodium Level 148 MMOL/L (136-145) H Potassium Level 3.3 MMOL/L (3.5-5.1) L Chloride Level 106 MMOL/L (98-107) Carbon Dioxide Level 35 MMOL/L (21-32) H Anion Gap 7 mmol/L (5-15) Blood Urea Nitrogen 20 mg/dL (7-18) H Creatinine 0.7 MG/DL (0.55-1.30) Estimat Glomerular Filtration Rate > 60 mL/min (>60) Glucose Level 106 MG/DL (74-106) Calcium Level 8.7 MG/DL (8.5-10.1) Total Bilirubin 0.6 MG/DL (0.2-1.0) Aspartate Amino Transf (AST/SGOT) 25 U/L (15-37) Alanine Aminotransferase (ALT/SGPT) 28 U/L (12-78) Alkaline Phosphatase 67 U/L (46-116) Pro-B-Type Natriuretic Peptide 4978 pg/mL (0-125) H Total Protein 6.1 G/DL (6.4-8.2) L Albumin 2.6 G/DL (3.4-5.0) L Globulin 3.5 g/dL Albumin/Globulin Ratio 0.7 (1.0-2.7) L Current Medications Medications (Trade) Dose Ordered Sig/Amaris Route PRN Reason Start Time Stop Time Status Last Admin Dose Admin Acetaminophen (Tylenol) 650 mg Q4H PRN ORAL Mild Pain/Temp > 100.5 07/21/19 18:00 08/20/19 17:59 Acetaminophen (Tylenol) 1,000 mg Q6H PRN ORAL Moderate Pain (Pain Scale 4-6) 07/21/19 18:00 08/20/19 17:59 Amiodarone HCl (Cordarone) 200 mg BID ORAL 07/28/19 09:00 08/27/19 08:59 07/30/19 08:27 Atorvastatin Calcium (Lipitor) 40 mg BEDTIME ORAL 07/21/19 21:00 08/20/19 20:59 07/29/19 21:56 Ceftriaxone Sodium 2 gm/ Dextrose 110 ml @ 220 mls/hr Q24H IVPB 07/29/19 21:00 08/05/19 20:59 07/29/19 21:56 Clopidogrel Bisulfate (Plavix) 75 mg DAILY ORAL 07/22/19 09:00 08/21/19 08:59 07/30/19 08:25 Doxycycline Hyclate 100 mg/ Dextrose 110 ml @ 110 mls/hr Q12H IV 07/26/19 12:00 08/02/19 11:59 07/30/19 00:28 Haloperidol Lactate (Haldol) 5 mg Q6H PRN IM Agitation 07/29/19 23:30 08/28/19 23:29 Heparin Sodium (Porcine) (Heparin 5000 units/ml) 5,000 units EVERY 12 HOURS SUBQ 07/21/19 21:00 08/20/19 20:59 07/30/19 08:28 Hydralazine HCl (Apresoline) 10 mg Q6H PRN IV For High Blood Pressure 07/26/19 12:15 08/25/19 12:14 07/30/19 06:51 Hydralazine HCl (Apresoline) 25 mg Q6H PRN ORAL For High Blood Pressure 07/21/19 18:15 08/20/19 18:14 Isosorbide Mononitrate (Imdur) 30 mg DAILY ORAL 07/22/19 09:00 08/21/19 08:59 07/30/19 08:25 Metoprolol Tartrate (Lopressor) 50 mg Q12HR ORAL 07/27/19 09:00 08/26/19 08:59 07/30/19 08:26 Ondansetron HCl (Zofran) 4 mg Q4H PRN IVP Nausea & Vomiting 07/22/19 18:30 08/21/19 18:29 07/22/19 18:36 Pantoprazole (Protonix) 40 mg DAILY ORAL 07/22/19 09:00 08/21/19 08:59 07/30/19 08:25 Potassium Chloride (K-Dur) 20 meq ONCE ORAL 07/30/19 08:00 07/30/19 10:00 07/30/19 08:27 Ramipril (Altace) 10 mg DAILY ORAL 07/26/19 09:00 08/25/19 08:59 07/30/19 08:26 Thiamine HCl (Vitamin B1) 100 mg DAILY ORAL 07/22/19 09:00 08/21/19 08:59 07/30/19 08:25 Vitamin D (Vitamin D) 5,000 intlu DAILY ORAL 07/22/19 09:00 08/21/19 08:59 07/30/19 08:27 Angel Rudolph MD Jul 30, 2019 09:30
[2019-07-30 12:00] VITALS: BP 148/74
--- NOTE | 2019-07-30 12:10 | Pulmonology Progress Note ---
Assessment/Plan Problems: (1) Nosocomial pneumonia (2) Acute respiratory failure (3) COPD (chronic obstructive pulmonary disease) (4) Atrial fibrillation (5) UTI (urinary tract infection) (6) CAD (coronary artery disease) (7) History of hypertension (8) Dementia with behavioral disturbance Assessment/Plan respiratory treatment titrate fio2 Echo reviewed, EF of 40% continue abx, ID will see the patient heart rate is controlled off iv fluids, K supplement speech note reviewed, Agree with video swallow, Repeat CXR shows new RLL infiltrate, was not present on admission. chronic anticoagulation as per cardiology, on hold because of high risk and need for Gtube Subjective Constitutional: Reports: no symptoms HEENT: Repors: no symptoms Respiratory: Reports: no symptoms Allergies: Coded Allergies: No Known Allergies (Unverified , 06/03/17) Objective Last 24 Hour Vital Signs Date Time Temp Pulse Resp B/P (MAP) Pulse Ox O2 Delivery O2 Flow Rate FiO2 07/30/19 09:00 Venturi Mask 07/30/19 08:26 76 177/96 07/30/19 08:26 177/96 07/30/19 08:25 177/96 07/30/19 08:00 3.0 07/30/19 08:00 98.1 76 19 177/96 (123) 96 07/30/19 08:00 97 07/30/19 06:51 161/74 07/30/19 04:00 76 07/30/19 04:00 6.0 07/30/19 04:00 97.7 74 20 161/74 (103) 96 07/30/19 01:05 70 14 96 30 07/30/19 00:00 70 07/30/19 00:00 96.6 70 20 155/74 (101) 98 07/30/19 00:00 6.0 07/29/19 21:57 108 155/99 07/29/19 21:00 Venturi Mask 07/29/19 20:00 114 07/29/19 20:00 6.0 07/29/19 20:00 98.1 108 20 155/99 (117) 93 07/29/19 19:02 93 Venturi Mask 10.0 40 07/29/19 16:27 83 07/29/19 16:00 97.8 99 23 141/91 (108) 94 07/29/19 16:00 30 Intake and Output 07/29/19 07/30/19 19:00 07:00 Intake Total 750 ml Output Total 220 ml Balance 530 ml Intake Oral 240 ml IV Total 510 ml Output Urine Total 220 ml # Voids 3 General Appearance: WD/WN HEENT: normocephalic, atraumatic Respiratory/Chest: chest wall non-tender, lungs clear Cardiovascular: normal peripheral pulses, normal rate Abdomen: normal bowel sounds, soft, non tender Neurologic/Psychiatric: rehabilitation coordinator II-XII grossly normal Lymphatic: no neck adenopathy Laboratory Tests 07/30/19 06:04: White Blood Count 7.0, Red Blood Count 5.14, Hemoglobin 15.8, Hematocrit 47.9, Mean Corpuscular Volume 93, Mean Corpuscular Hemoglobin 30.7, Mean Corpuscular Hemoglobin Concent 32.9, Red Cell Distribution Width 12.2, Platelet Count 284, Mean Platelet Volume 6.1L, Neutrophils (%) (Auto) 75.7H, Lymphocytes (%) (Auto) 15.1L, Monocytes (%) (Auto) 7.9, Eosinophils (%) (Auto) 0.6, Basophils (%) (Auto ) 0.6, Sodium Level 148H, Potassium Level 3.3L, Chloride Level 106, Carbon Dioxide Level 35H, Anion Gap 7, Blood Urea Nitrogen 20H, Creatinine 0.7, Estimat Glomerular Filtration Rate > 60, Glucose Level 106, Calcium Level 8.7, Total Bilirubin 0.6, Aspartate Amino Transf (AST/SGOT) 25, Alanine Aminotransferase (ALT/SGPT) 28, Alkaline Phosphatase 67, Pro-B-Type Natriuretic Peptide 4978H, Total Protein 6.1L, Albumin 2.6L, Globulin 3.5, Albumin/Globulin Ratio 0.7L, Hepatitis B Surface Antibody, Quant [Pending], Hepatitis C Antibody [Pending] Current Medications Medications (Trade) Dose Ordered Sig/Amaris Route PRN Reason Start Time Stop Time Status Last Admin Dose Admin Acetaminophen (Tylenol) 650 mg Q4H PRN ORAL Mild Pain/Temp > 100.5 07/21/19 18:00 08/20/19 17:59 Acetaminophen (Tylenol) 1,000 mg Q6H PRN ORAL Moderate Pain (Pain Scale 4-6) 07/21/19 18:00 08/20/19 17:59 Amiodarone HCl (Cordarone) 200 mg BID ORAL 07/28/19 09:00 08/27/19 08:59 07/30/19 08:27 Atorvastatin Calcium (Lipitor) 40 mg BEDTIME ORAL 07/21/19 21:00 08/20/19 20:59 07/29/19 21:56 Ceftriaxone Sodium 2 gm/ Dextrose 110 ml @ 220 mls/hr Q24H IVPB 07/29/19 21:00 08/05/19 20:59 07/29/19 21:56 Clopidogrel Bisulfate (Plavix) 75 mg DAILY ORAL 07/22/19 09:00 08/21/19 08:59 07/30/19 08:25 Doxycycline Hyclate 100 mg/ Dextrose 110 ml @ 110 mls/hr Q12H IV 07/26/19 12:00 08/02/19 11:59 07/30/19 11:08 Haloperidol Lactate (Haldol) 5 mg Q6H PRN IM Agitation 07/29/19 23:30 08/28/19 23:29 Heparin Sodium (Porcine) (Heparin 5000 units/ml) 5,000 units EVERY 12 HOURS SUBQ 07/21/19 21:00 08/20/19 20:59 07/30/19 08:28 Hydralazine HCl (Apresoline) 10 mg Q6H PRN IV For High Blood Pressure 07/26/19 12:15 08/25/19 12:14 07/30/19 06:51 Hydralazine HCl (Apresoline) 25 mg Q6H PRN ORAL For High Blood Pressure 07/21/19 18:15 08/20/19 18:14 Isosorbide Mononitrate (Imdur) 30 mg DAILY ORAL 07/22/19 09:00 08/21/19 08:59 07/30/19 08:25 Metoprolol Tartrate (Lopressor) 50 mg Q12HR ORAL 07/27/19 09:00 08/26/19 08:59 07/30/19 08:26 Ondansetron HCl (Zofran) 4 mg Q4H PRN IVP Nausea & Vomiting 07/22/19 18:30 08/21/19 18:29 07/22/19 18:36 Pantoprazole (Protonix) 40 mg DAILY ORAL 07/22/19 09:00 08/21/19 08:59 07/30/19 08:25 Ramipril (Altace) 10 mg DAILY ORAL 07/26/19 09:00 08/25/19 08:59 07/30/19 08:26 Thiamine HCl (Vitamin B1) 100 mg DAILY ORAL 07/22/19 09:00 08/21/19 08:59 07/30/19 08:25 Vitamin D (Vitamin D) 5,000 intlu DAILY ORAL 07/22/19 09:00 08/21/19 08:59 07/30/19 08:27 Nicole Graves MD Jul 30, 2019 12:10
[2019-07-30 16:00] VITALS: BP 137/79
[2019-07-30 20:00] VITALS: BP 152/68
[2019-07-30] MEDS: Atorvastatin 20mg tab ORAL SCH (21:03)
[2019-07-30] MEDS: cefTRIAXone 2 GM in D5W 110 ML IVPB SCH (21:04)
--- NOTE | 2019-07-30 23:00 | Progress Note ---
DATE: 07/30/2019 CARDIOLOGY PROGRESS NOTE SUBJECTIVE: Still with cough and congestion. Withdrawn. Occasionally lethargic. Monitor sinus with paroxysms of atrial fibrillation. OBJECTIVE: VITAL SIGNS: Blood pressure 177/96, pulse 76, and respiratory rate 19. LUNGS: Bilateral breath sounds. Rhonchi. HEART: Irregularly irregular rhythm. Normal S1, S2. ABDOMEN: Soft. EXTREMITIES: Trace edema. LABORATORY DATA: Sodium 148, potassium 3.3, bicarb 35, BUN 20, and creatinine 0.7. Pro-natriuretic peptide down to 4900. White count 7 and hemoglobin 15.8. IMPRESSION: 1. Status post acute myocardial infarction. 2. Aspiration pneumonia with sepsis. 3. Hypoxia. 4. Paroxysmal atrial fibrillation. 5. Dehydration. 6. Hypernatremia. 7. Hypokalemia. PLAN: 1. Resume hypotonic IV fluids. 2. Replace potassium. 3. Check magnesium. 4. Continue statin drug and anti-platelet therapy. 5. Amiodarone loading for arrhythmia suppression. 6. Avoid anticoagulation as may need G-tube. 7. Additional antihypertensives p.r.n. Saeed Sim M.D. DR: YESENIA JOB#: [id number] CC:
[2019-07-30] MEDS: 1/2NS w/KCl 20mEq 1000ml 1,000 ML IV SCH (23:33)
[2019-07-31] VITALS (16 sets, daily range): BP systolic 47–150; BP diastolic 23–88
--- NOTE | 2019-07-31 01:30 | Progress Note ---
DATE: 07/30/2019 SUBJECTIVE: The patient is stable, resting comfortably. No behavior issues noted. The patient was more cooperative today. No agitation. MENTAL STATUS EXAMINATION: The patient is alert, disoriented. Mood is neutral. Affect is flat. Thought process, there is a paucity of thought content. Thought content, no suicidal or homicidal ideation. Cognition is impaired. Insight and judgment impaired. ASSESSMENT: 1. Dementia. 2. Acute encephalopathy. PLAN: 1. We will continue current medications. 2. Provide the patient with reality orientation. Duarte Vizcarra M.D. DR: SILVIANO JOB#: [id number] CC:
--- NOTE | 2019-07-31 02:45 | Progress Note ---
DATE: 07/30/2019 SUBJECTIVE: The patient's chart reviewed and case has been discussed with the treatment team. The patient is awake, alert, afebrile, and short of breath. He has eye contact, but no verbal response. PHYSICAL EXAMINATION: VITAL SIGNS: Blood pressure 152/68, his pulse is 81, respirations are 19, and temperature of 98. HEENT: Eyes were normal. ENT, mucous membranes were moist and intact. NECK: Supple with JVD of 4 cm above supraclavicular fossa at 60 degrees. LUNGS: Bilateral decreased breath sounds in both lung kang and bilateral rhonchi in both bases, right more than left. HEART: Normal sounds with regular beats. There is no tachycardia at rest. ABDOMEN: Soft, obese, and nontender with normal bowel sounds. EXTREMITIES: Warm without cyanosis, clubbing, or edema. LABORATORY AND DIAGNOSTIC DATA: His hemoglobin is 15.8, hematocrit 47.9 with MCV of 93, WBC of 7.0, and platelets of 284,000. His BUN and creatinine are 20 and 0.7 respectively. His sodium is 148, potassium 3.3, chloride is 106, and CO2 is 25. His ProBNP is 4900. His albumin is 2.6. Total protein is 6.1. HIV antibody is negative. Chest x-ray showed right lower lobe pneumonia and cardiomegaly. IMPRESSION: The patient failed swallowing evaluation, currently requiring gastrostomy. His behavior today is deferred and he is able to not be handled in the last few days. Repeat laboratory tests will be done in a.m. The patient has been seen by a psychiatrist further as the patient lacks capacity to make decision. Blood toxicity was done on the patient and it was negative. Modesta Mulligan M.D. DR: SOFIA JOB#: [id number] CC:
[2019-07-31 07:28] LABS: ALANINE AMINOTRANSFERASE 31 U/L (12-78); ALBUMIN 2.7 G/DL (3.4-5.0); ALBUMIN/GLOBULIN RATIO 0.8 (1.0-2.7); ALKALINE PHOSPHATASE 66 U/L (46-116); ANION GAP 4 mmol/L (5-15); ASPARTATE AMINO TRANSFERASE 26 U/L (15-37); BILIRUBIN,TOTAL 0.4 MG/DL (0.2-1.0); BLOOD UREA NITROGEN 27 mg/dL (7-18); CALCIUM 8.9 MG/DL (8.5-10.1); CARBON DIOXIDE 37 MMOL/L (21-32); CHLORIDE 104 MMOL/L (98-107); CREATININE 0.6 MG/DL (0.55-1.30); POTASSIUM 4.1 MMOL/L (3.5-5.1); SODIUM 145 MMOL/L (136-145)
[2019-07-31 07:40] LABS: HEMATOCRIT 47.6 % (42.0-52.0); HEMOGLOBIN 15.5 G/DL (14.2-18.0); MEAN CORPUSCULAR VOLUME 95 FL (80-99); PLATELET COUNT 267 K/UL (150-450); RED BLOOD COUNT 5.03 M/UL (4.70-6.10); RED CELL DISTRIBUTION WIDTH 12.6 % (11.6-14.8); WHITE BLOOD COUNT 13.8 K/UL (4.8-10.8)
[2019-07-31] MEDS: Thiamine 100mg tab ORAL SCH (08:30)
[2019-07-31] MEDS: Imdur 30mg tab ORAL SCH (08:30)
[2019-07-31] MEDS: Amiodarone 200mg tab ORAL SCH ×2 (08:30→16:33)
[2019-07-31] MEDS: Ramipril 2.5mg cap ORAL SCH (08:30)
[2019-07-31] MEDS: Vitamin D 1000 IU Tab ORAL SCH (08:30)
[2019-07-31] MEDS: Metoprolol Tartrate 50mg tab ORAL SCH ×2 (08:31→21:00)
[2019-07-31] MEDS: Heparin 5000 units/ml inj SUBQ SCH ×2 (08:32→21:00)
--- NOTE | 2019-07-31 12:57 | Pulmonology Progress Note ---
Assessment/Plan Problems: (1) Nosocomial pneumonia (2) Acute respiratory failure (3) COPD (chronic obstructive pulmonary disease) (4) Atrial fibrillation (5) UTI (urinary tract infection) (6) CAD (coronary artery disease) (7) History of hypertension (8) Dementia with behavioral disturbance Assessment/Plan respiratory treatment titrate fio2 Echo reviewed, EF of 40% continue abx, heart rate is controlled Subjective ROS Limited/Unobtainable: No Interval Events: on face mask, sinus rhythm with PAC's and PVC's Constitutional: Reports: no symptoms HEENT: Repors: no symptoms Respiratory: Reports: no symptoms Allergies: Coded Allergies: No Known Allergies (Unverified , 06/03/17) Objective Last 24 Hour Vital Signs Date Time Temp Pulse Resp B/P (MAP) Pulse Ox O2 Delivery O2 Flow Rate FiO2 07/31/19 09:57 94 Venturi Mask 10.0 45 07/31/19 09:00 Venturi Mask 07/31/19 08:31 77 144/88 07/31/19 08:30 144/88 07/31/19 08:30 144/88 07/31/19 08:00 98.3 77 19 144/88 (106) 95 07/31/19 08:00 3.0 07/31/19 08:00 84 07/31/19 04:00 75 07/31/19 04:00 97.5 73 20 150/71 (97) 95 07/31/19 04:00 3.0 07/31/19 03:05 76 23 93 45 07/31/19 01:16 83 28 94 45 07/31/19 00:00 90 07/31/19 00:00 3.0 07/31/19 00:00 97.3 78 20 146/75 (98) 95 07/30/19 23:00 67 35 92 45 07/30/19 21:04 88 152/68 07/30/19 21:00 Venturi Mask 07/30/19 20:00 101 07/30/19 20:00 98.1 88 20 152/68 (96) 95 07/30/19 19:39 94 Venturi Mask 10.0 45 07/30/19 16:00 98.0 81 19 137/79 (98) 95 07/30/19 16:00 3.0 07/30/19 16:00 73 Intake and Output 07/30/19 07/31/19 19:00 07:00 Intake Total 800 ml Output Total 0 ml Balance 800 ml Other 800 ml Stool Total 0 ml # Voids 3 General Appearance: WD/WN HEENT: normocephalic Respiratory/Chest: chest wall non-tender, normal breath sounds Cardiovascular: normal peripheral pulses, normal rate Abdomen: soft, non tender, no organomegaly Laboratory Tests 07/31/19 05:25: White Blood Count 13.8#H, Red Blood Count 5.03, Hemoglobin 15.5, Hematocrit 47.6 , Mean Corpuscular Volume 95, Mean Corpuscular Hemoglobin 30.9, Mean Corpuscular Hemoglobin Concent 32.6, Red Cell Distribution Width 12.6, Platelet Count 267, Mean Platelet Volume 6.0L, Neutrophils (%) (Auto) , Lymphocytes (%) ( Auto) , Monocytes (%) (Auto) , Eosinophils (%) (Auto) , Basophils (%) (Auto) , Differential Total Cells Counted 100, Neutrophils % (Manual) 88H, Lymphocytes % (Manual) 6L, Monocytes % (Manual) 6, Eosinophils % (Manual) 0, Basophils % ( Manual) 0, Band Neutrophils 0, Platelet Estimate Adequate, Platelet Morphology Normal, Red Blood Cell Morphology Normal, Sodium Level 145, Potassium Level 4.1 , Chloride Level 104, Carbon Dioxide Level 37H, Anion Gap 4L, Blood Urea Nitrogen 27H, Creatinine 0.6, Estimat Glomerular Filtration Rate > 60, Glucose Level 133H, Calcium Level 8.9, Magnesium Level 2.2, Total Bilirubin 0.4, Aspartate Amino Transf (AST/SGOT) 26, Alanine Aminotransferase (ALT/SGPT) 31, Alkaline Phosphatase 66, Total Protein 6.2L, Albumin 2.7L, Globulin 3.5, Albumin /Globulin Ratio 0.8L Current Medications Medications (Trade) Dose Ordered Sig/Amarsi Route PRN Reason Start Time Stop Time Status Last Admin Dose Admin Acetaminophen (Tylenol) 650 mg Q4H PRN ORAL Mild Pain/Temp > 100.5 07/21/19 18:00 08/20/19 17:59 Acetaminophen (Tylenol) 1,000 mg Q6H PRN ORAL Moderate Pain (Pain Scale 4-6) 07/21/19 18:00 08/20/19 17:59 Amiodarone HCl (Cordarone) 200 mg BID ORAL 2/24/20 09:00 08/27/19 08:59 07/31/19 08:30 Atorvastatin Calcium (Lipitor) 40 mg BEDTIME ORAL 07/21/19 21:00 08/20/19 20:59 07/30/19 21:03 Ceftriaxone Sodium 2 gm/ Dextrose 110 ml @ 220 mls/hr Q24H IVPB 07/29/19 21:00 08/05/19 20:59 07/30/19 21:04 Clopidogrel Bisulfate (Plavix) 75 mg DAILY ORAL 07/22/19 09:00 08/21/19 08:59 07/31/19 08:30 Doxycycline Hyclate 100 mg/ Dextrose 110 ml @ 110 mls/hr Q12H IV 07/26/19 12:00 08/02/19 11:59 07/30/19 23:42 Haloperidol Lactate (Haldol) 5 mg Q6H PRN IM Agitation 07/29/19 23:30 08/28/19 23:29 Heparin Sodium (Porcine) (Heparin 5000 units/ml) 5,000 units EVERY 12 HOURS SUBQ 07/21/19 21:00 08/20/19 20:59 07/31/19 08:32 Hydralazine HCl (Apresoline) 10 mg Q6H PRN IV For High Blood Pressure 07/26/19 12:15 08/25/19 12:14 07/30/19 06:51 Hydralazine HCl (Apresoline) 25 mg Q6H PRN ORAL For High Blood Pressure 07/21/19 18:15 08/20/19 18:14 Isosorbide Mononitrate (Imdur) 30 mg DAILY ORAL 07/22/19 09:00 08/21/19 08:59 07/31/19 08:30 Metoprolol Tartrate (Lopressor) 50 mg Q12HR ORAL 07/27/19 09:00 08/26/19 08:59 07/31/19 08:31 Ondansetron HCl (Zofran) 4 mg Q4H PRN IVP Nausea & Vomiting 07/22/19 18:30 08/21/19 18:29 07/22/19 18:36 Pantoprazole (Protonix) 40 mg DAILY ORAL 07/22/19 09:00 08/21/19 08:59 07/31/19 08:30 Ramipril (Altace) 10 mg DAILY ORAL 07/26/19 09:00 08/25/19 08:59 07/31/19 08:30 Sodium 1,000 ml @ 75 mls/hr [id number] IV 07/30/19 23:00 08/29/19 22:59 07/30/19 23:33 Thiamine HCl (Vitamin B1) 100 mg DAILY ORAL 07/22/19 09:00 08/21/19 08:59 07/31/19 08:30 Vitamin D (Vitamin D) 5,000 intlu DAILY ORAL 07/22/19 09:00 08/21/19 08:59 07/31/19 08:30 Nicole Graves MD Jul 31, 2019 12:57
[2019-07-31] MEDS: Doxycycline Hyclate 100 MG in D5W 110 ML IV SCH (13:02)
[2019-07-31] MEDS: 1/2NS w/KCl 20mEq 1000ml 1,000 ML IV SCH ×2 (13:02→22:59)
--- NOTE | 2019-07-31 15:32 | Infectious Diseases Prog Note ---
Assessment/Plan Assessment/Plan ASSESSMENT: The patient is a 79-year-old male with: mild leukocytosis Status post sepsis Pneumonia. Urinary tract infection. Afebrile. Hyperlipidemia. COPD. History of GERD. History of encephalopathy. History of CAD/MN. History of cardiomyopathy. 7. Hypertension. PLAN: continue the patient on Rocephin day # 9/10- 14 , DC Dox # 6 Monitor CBC. Monitor BMP. Monitor chest x-ray. Subjective Allergies: Coded Allergies: No Known Allergies (Unverified , 06/03/17) Subjective leukocytosis afebrile Objective Vital Signs Last 24 Hour Vital Signs Date Time Temp Pulse Resp B/P (MAP) Pulse Ox O2 Delivery O2 Flow Rate FiO2 07/31/19 12:00 96.6 64 24 117/53 (74) 100 07/31/19 12:00 64 07/31/19 12:00 3.0 07/31/19 09:57 94 Venturi Mask 10.0 45 07/31/19 09:00 Venturi Mask 07/31/19 08:31 77 144/88 07/31/19 08:30 144/88 07/31/19 08:30 144/88 07/31/19 08:00 98.3 77 19 144/88 (106) 95 07/31/19 08:00 3.0 07/31/19 08:00 84 07/31/19 04:00 75 07/31/19 04:00 97.5 73 20 150/71 (97) 95 07/31/19 04:00 3.0 07/31/19 03:05 76 23 93 45 07/31/19 01:16 83 28 94 45 07/31/19 00:00 90 07/31/19 00:00 3.0 07/31/19 00:00 97.3 78 20 146/75 (98) 95 07/30/19 23:00 67 35 92 45 07/30/19 21:04 88 152/68 07/30/19 21:00 Venturi Mask 07/30/19 20:00 101 07/30/19 20:00 98.1 88 20 152/68 (96) 95 07/30/19 19:39 94 Venturi Mask 10.0 45 07/30/19 16:00 98.0 81 19 137/79 (98) 95 07/30/19 16:00 3.0 07/30/19 16:00 73 Height (Feet): 5 Height (Inches): 6.00 Weight (Pounds): 200 HEENT: anicteric Respiratory/Chest: normal breath sounds Cardiovascular: regularly irregular Abdomen: no organomegaly Laboratory Tests Test 07/31/19 05:25 White Blood Count 13.8 K/UL (4.8-10.8) #H Red Blood Count 5.03 M/UL (4.70-6.10) Hemoglobin 15.5 G/DL (14.2-18.0) Hematocrit 47.6 % (42.0-52.0) Mean Corpuscular Volume 95 FL (80-99) Mean Corpuscular Hemoglobin 30.9 PG (27.0-31.0) Mean Corpuscular Hemoglobin Concent 32.6 G/DL (32.0-36.0) Red Cell Distribution Width 12.6 % (11.6-14.8) Platelet Count 267 K/UL (150-450) Mean Platelet Volume 6.0 FL (6.5-10.1) L Neutrophils (%) (Auto) % (45.0-75.0) Lymphocytes (%) (Auto) % (20.0-45.0) Monocytes (%) (Auto) % (1.0-10.0) Eosinophils (%) (Auto) % (0.0-3.0) Basophils (%) (Auto) % (0.0-2.0) Differential Total Cells Counted 100 Neutrophils % (Manual) 88 % (45-75) H Lymphocytes % (Manual) 6 % (20-45) L Monocytes % (Manual) 6 % (1-10) Eosinophils % (Manual) 0 % (0-3) Basophils % (Manual) 0 % (0-2) Band Neutrophils 0 % (0-8) Platelet Estimate Adequate Platelet Morphology Normal Red Blood Cell Morphology Normal Sodium Level 145 MMOL/L (136-145) Potassium Level 4.1 MMOL/L (3.5-5.1) Chloride Level 104 MMOL/L (98-107) Carbon Dioxide Level 37 MMOL/L (21-32) H Anion Gap 4 mmol/L (5-15) L Blood Urea Nitrogen 27 mg/dL (7-18) H Creatinine 0.6 MG/DL (0.55-1.30) Estimat Glomerular Filtration Rate > 60 mL/min (>60) Glucose Level 133 MG/DL (74-106) H Calcium Level 8.9 MG/DL (8.5-10.1) Magnesium Level 2.2 MG/DL (1.8-2.4) Total Bilirubin 0.4 MG/DL (0.2-1.0) Aspartate Amino Transf (AST/SGOT) 26 U/L (15-37) Alanine Aminotransferase (ALT/SGPT) 31 U/L (12-78) Alkaline Phosphatase 66 U/L (46-116) Total Protein 6.2 G/DL (6.4-8.2) L Albumin 2.7 G/DL (3.4-5.0) L Globulin 3.5 g/dL Albumin/Globulin Ratio 0.8 (1.0-2.7) L Current Medications Medications (Trade) Dose Ordered Sig/Amaris Route PRN Reason Start Time Stop Time Status Last Admin Dose Admin Acetaminophen (Tylenol) 650 mg Q4H PRN ORAL Mild Pain/Temp > 100.5 07/21/19 18:00 08/20/19 17:59 Acetaminophen (Tylenol) 1,000 mg Q6H PRN ORAL Moderate Pain (Pain Scale 4-6) 07/21/19 18:00 08/20/19 17:59 Amiodarone HCl (Cordarone) 200 mg BID ORAL 07/28/19 09:00 08/27/19 08:59 07/31/19 08:30 Atorvastatin Calcium (Lipitor) 40 mg BEDTIME ORAL 07/21/19 21:00 08/20/19 20:59 07/30/19 21:03 Ceftriaxone Sodium 2 gm/ Dextrose 110 ml @ 220 mls/hr Q24H IVPB 07/29/19 21:00 08/05/19 20:59 07/30/19 21:04 Clopidogrel Bisulfate (Plavix) 75 mg DAILY ORAL 07/22/19 09:00 08/21/19 08:59 07/31/19 08:30 Doxycycline Hyclate 100 mg/ Dextrose 110 ml @ 110 mls/hr Q12H IV 07/26/19 12:00 08/02/19 11:59 07/31/19 13:02 Haloperidol Lactate (Haldol) 5 mg Q6H PRN IM Agitation 07/29/19 23:30 08/28/19 23:29 Heparin Sodium (Porcine) (Heparin 5000 units/ml) 5,000 units EVERY 12 HOURS SUBQ 07/21/19 21:00 08/20/19 20:59 07/31/19 08:32 Hydralazine HCl (Apresoline) 10 mg Q6H PRN IV For High Blood Pressure 07/26/19 12:15 08/25/19 12:14 07/30/19 06:51 Hydralazine HCl (Apresoline) 25 mg Q6H PRN ORAL For High Blood Pressure 07/21/19 18:15 08/20/19 18:14 Isosorbide Mononitrate (Imdur) 30 mg DAILY ORAL 07/22/19 09:00 08/21/19 08:59 07/31/19 08:30 Metoprolol Tartrate (Lopressor) 50 mg Q12HR ORAL 07/27/19 09:00 08/26/19 08:59 07/31/19 08:31 Olanzapine (ZyPREXA) 5 mg BID ORAL 07/31/19 14:24 08/30/19 14:23 Ondansetron HCl (Zofran) 4 mg Q4H PRN IVP Nausea & Vomiting 07/22/19 18:30 08/21/19 18:29 07/22/19 18:36 Pantoprazole (Protonix) 40 mg DAILY ORAL 07/22/19 09:00 08/21/19 08:59 07/31/19 08:30 Ramipril (Altace) 10 mg DAILY ORAL 07/26/19 09:00 08/25/19 08:59 07/31/19 08:30 Sodium 1,000 ml @ 75 mls/hr [id number] IV 07/30/19 23:00 08/29/19 22:59 07/31/19 13:02 Thiamine HCl (Vitamin B1) 100 mg DAILY ORAL 07/22/19 09:00 08/21/19 08:59 07/31/19 08:30 Vitamin D (Vitamin D) 5,000 intlu DAILY ORAL 07/22/19 09:00 08/21/19 08:59 07/31/19 08:30 Angel Rudolph MD Jul 31, 2019 15:32
--- NOTE | 2019-07-31 19:15 | Progress Note ---
DATE: 07/31/2019 SUBJECTIVE: The patient pulled out his IV access. He is still agitated, confused. The patient is delusional, unable to be engaged and answers the questions and easily agitated. MENTAL STATUS EXAMINATION: The patient is alert, oriented times self. Mood is anxious. Affect is flat. Thought process is disorganized. Thought content, no suicidal or homicidal ideation. Cognition is impaired. Insight and judgment is impaired. ASSESSMENT: Dementia with behavior disturbance. PLAN: 1. We will start the patient on Zyprexa 5 mg b.i.d. 2. Dario awadn. Duarte Vizcarra M.D. DR: AARTI JOB#: [id number] CC:
[2019-07-31] MEDS: Atorvastatin 20mg tab ORAL SCH (21:00)
--- NOTE | 2019-07-31 21:19 | Diagnostic Imaging Report ---
Indication: Shortness of breath, post intubation Technique: One view of the chest Comparison: 07/29/2019 Findings: Interim endotracheal intubation, endotracheal tube tip in good position, tip projecting approximate 4 cm above the maya infiltrate and atelectasis in the right mid to lower lung is slightly increased. No new infiltrates. Left lung and pleural space remain clear. Impression: Satisfactory endotracheal intubation Slightly increased right basilar consolidation This agrees with the preliminary interpretation provided overnight by [facility] teleradiology service.
[2019-07-31] MEDS ORDERED: Levophed 4mg/4mL Inj IV ONE (21:22)
--- NOTE | 2019-07-31 23:18 | Emergency Room Report ---
History of Present Illness General Chief Complaint: Upper Respiratory Illness Source: Patient, Medical Record, EMS Present Illness HPI A CODE BLUE was called overhead. I responded to the CODE BLUE. On arrival, I was informed this patient has had a respiratory illness and then became bradycardic and coded. CPR was in progress on my arrival and the patient was being bagged. Allergies: Coded Allergies: No Known Allergies (Unverified , 06/03/17) Patient History Past Medical History: see triage record Nursing Documentation-[facility] Hx Cardiac Problems: No - heart failure, OR, ISCHEMIC CARDIOMYOPATHY Hx Hypertension: Yes Hx COPD: Yes Hx Cancer: No Hx Gastrointestinal Problems: No Hx Dementia: Yes Hx Weakness: Yes Physical Exam Vital Signs Date Time Temp Pulse Resp B/P (MAP) Pulse Ox O2 Delivery O2 Flow Rate FiO2 07/27/19 07:52 100 07/27/19 08:00 98.0 22 178/101 (126) 98 07/27/19 08:00 3.0 07/27/19 09:00 Nasal Cannula 07/27/19 17:05 36 Procedures Intubation Intubation : Consent: Emergent Intubation Method: orotracheal Tube Size (cm): 7.5 Breath Sounds after Intubation: equal Intubation Complications: no complications Post Intubation Xray: Yes Progress/Xray Impression: Appropriate tube placement Attempts: One Patient Tolerated: Well Complications: None Medical Decision Making Diagnostic Impression: Primary Impression: Respiratory failure Additional Impression: Cardiopulmonary arrest ER Course This patient was in respiratory failure and in cardiopulmonary arrest on my arrival to the bedside. Dr. Sim was bedside and running the code. I intubated the patient by rapid sequence intubation. The patient did recover a pulse after several rounds of ACLS per standard protocol. Please see Dr. Sim 's Code note and RN code sheet. I provided the emergency intubation. Chest X-Ray Diagnostic Results Chest X-Ray Diagnostic Results : Chest X-Ray Ordered: Yes # of Views/Limited/Complete: 1 View Indication: Other EP Interpretation: Yes Interpretation: other - Appropriate tube placement Impression: Other - See above Electronically Signed by: Vy Hernandez DO Last Vital Signs Date Time Temp Pulse Resp B/P (MAP) Pulse Ox O2 Delivery O2 Flow Rate FiO2 07/31/19 22:43 74 18 90 07/31/19 22:00 83/22 07/31/19 21:09 98 Mechanical Ventilator 07/31/19 20:00 97.7 07/31/19 20:00 3.0 Disposition: ADMITTED INPATIENT Condition: Critical Referrals: Modesta Mulligan MD (PCP) Vy Hernandez DO Jul 31, 2019 23:18
[2019-07-31] MEDS ORDERED: Lidocaine 1% 10mg/ml/Epi 0.005mg/ml 30ml vial INJ ONE (23:51)
[2019-08-01] VITALS (99 sets, daily range): BP systolic 60–155; BP diastolic 32–136
[2019-08-01] MEDS ORDERED: Acetaminophen 500mg (ES) tab ORAL PRN
--- NOTE | 2019-08-01 00:07 | Emergency Room Report ---
History of Present Illness General Chief Complaint: Upper Respiratory Illness Source: Patient, Medical Record, EMS Present Illness HPI This is a 79-year-old male admitted to ICU after CODE BLUE and was intubated. Patient blood pressure became hypotensive and I was asked to place a central line. Unable to get any other history from this patient. Triple-lumen. Good blood flow. No complication. This was done under sterile condition. Allergies: Coded Allergies: No Known Allergies (Unverified , 06/03/17) Nursing Documentation-H Hx Cardiac Problems: No - heart failure, SD, ISCHEMIC CARDIOMYOPATHY Hx Hypertension: Yes Hx COPD: Yes Hx Cancer: No Hx Gastrointestinal Problems: No Hx Dementia: Yes Hx Weakness: Yes Physical Exam Vital Signs Date Time Temp Pulse Resp B/P (MAP) Pulse Ox O2 Delivery O2 Flow Rate FiO2 07/28/19 07:55 93 Nasal Cannula 3.0 32 07/28/19 08:00 66 21 07/28/19 08:00 98.0 157/83 (107) Procedures Central Line Central Line : Consent: Emergent Central Line Lumen: triple Maximal Sterile Barrier Tech: yes cap, yes mask, yes sterile gown, yes sterile gloves, yes large sterile sheet, yes hand hygiene, yes chlorhexidine prep Central Line Postion: femoral (R) Anesthesia: Lidocaine cc's of anesthesia: 10 Complications: none Central Line Post Position: sutured Attempts: One Patient Tolerated: Well Complications: None Medical Decision Making Diagnostic Impression: Primary Impression: Respiratory failure Additional Impression: Cardiopulmonary arrest Last Vital Signs Date Time Temp Pulse Resp B/P (MAP) Pulse Ox O2 Delivery O2 Flow Rate FiO2 08/01/19 00:03 Mechanical Ventilator 07/31/19 22:43 74 18 90 07/31/19 22:00 83/22 07/31/19 21:09 98 07/31/19 20:00 97.7 07/31/19 20:00 3.0 Disposition: ADMITTED INPATIENT Condition: Critical Referrals: Modesta Mulligan MD (PCP) Yves Mendoza MD Aug 01, 2019 00:07
[2019-08-01] MEDS ORDERED: HydrALAZINE 25mg tab ORAL PRN (00:15)
--- NOTE | 2019-08-01 01:01 | Progress Note ---
DATE: 07/31/2019 SUBJECTIVE: The patient is awake, alert, afebrile, hemodynamically stable impression yesterday. The patient is able to swallow pureed diet and chopped food without any difficulty and as such swallowed the breakfast, lunch, and dinner without any cough or regurgitation. PHYSICAL EXAMINATION: VITAL SIGNS: Blood pressure is 132/70, pulse is 71, respirations 18, temperature 96.4. HEENT: Eyes were normal. ENT, mucous membranes were moist and intact. NECK: Supple with no JVD without lymph nodes. LUNGS: Clear. HEART: Normal sounds with regular beats. There is no tachycardia at rest. ABDOMEN: Soft, nontender, with normal bowel sounds. Gastrostomy site is clean. EXTREMITIES: Warm without cyanosis, clubbing, or edema. LABORATORY AND DIAGNOSTIC DATA: Hemoglobin is 15.5, hematocrit 47.3 with MCV of 85, WBC of 13.8 and platelets of 267,000. His BUN and creatinine are 27 and 0.6 respectively. Sodium is 145, potassium 4.1, chloride 104, CO2 is 37. His albumin is 2.7. Total protein is 6.2. No new imaging study available at the time of this dictation. Chest x-ray from the revealed new right lower lobe pneumonia. IMPRESSION: The patient clinically appeared to be ready to be discharged new onset of right lower lobe pneumonia and sudden increase in leukocytosis. Repeat laboratory tests will be done in the a.m. and decision regarding the patient's be done after the data will be collected. Modesta Mulligan M.D. DR: Malathi JOB#: [id number] CC:
[2019-08-01] MEDS ORDERED: Lidocaine 1% Plain 30 ml INJ SCH (03:00)
[2019-08-01] MEDS ORDERED: Levophed 4mg/4mL Inj IV ONE (03:42)
[2019-08-01] MEDS: Haloperidol 5mg/ml Inj IM PRN ×2 (04:43→22:50)
--- NOTE | 2019-08-01 05:00 | Progress Note ---
DATE: 07/31/2019 CARDIOLOGY PROGRESS NOTE SUBJECTIVE: The patient's condition deteriorated. During my visit, he became bradycardic and subsequently asystolic. A Code Blue was called. Please see Code Blue detail in report sheet. The Code was run by me. Ultimately, the patient has regained heart rate and pulse. He was intubated by the emergency room physician and placed on mechanical ventilator and transferred to the intensive care unit. Blood pressure parameters dropped. OBJECTIVE: GENERAL: Orally intubated. LUNGS: Bilateral breath sounds with rhonchi. CARDIAC: Regular rhythm and rate. Normal S1, S2. ABDOMEN: Distended, but soft. EXTREMITIES: Trace dependent edema. IMPRESSION: 1. Status post arrest. 2. Respiratory failure. 3. Acute on chronic respiratory acidosis. 4. Aspiration pneumonia. 5. Status post acute myocardial infarction. 6. Critical and guarded. PLAN: 1. ICU [id number] updated. 2. Central venous access will be obtained. 3. Orders reviewed with ICU staff. Critical care time 80 minutes. Saeed Sim M.D. DR: RADHA JOB#: [id number] CC:
[2019-08-01 05:56] LABS: HEMATOCRIT 42.2 % (42.0-52.0); HEMOGLOBIN 14.1 G/DL (14.2-18.0); MEAN CORPUSCULAR VOLUME 95 FL (80-99); PLATELET COUNT 287 K/UL (150-450); RED BLOOD COUNT 4.46 M/UL (4.70-6.10); RED CELL DISTRIBUTION WIDTH 12.5 % (11.6-14.8)
[2019-08-01] MEDS ORDERED: cefTRIAXone 2 GM in D5W 110 ML IVPB SCH ×2 (06:00→21:00)
[2019-08-01 06:40] LABS: WHITE BLOOD COUNT 24.8 K/UL (4.8-10.8)
[2019-08-01 06:43] LABS: ALANINE AMINOTRANSFERASE 49 U/L (12-78); ALBUMIN 2.4 G/DL (3.4-5.0); ALBUMIN/GLOBULIN RATIO 0.8 (1.0-2.7); ALKALINE PHOSPHATASE 61 U/L (46-116); ANION GAP 9 mmol/L (5-15); ASPARTATE AMINO TRANSFERASE 35 U/L (15-37); BILIRUBIN,TOTAL 0.6 MG/DL (0.2-1.0); BLOOD UREA NITROGEN 41 mg/dL (7-18); CALCIUM 8.7 MG/DL (8.5-10.1); CARBON DIOXIDE 31 MMOL/L (21-32); CHLORIDE 106 MMOL/L (98-107); POTASSIUM 4.7 MMOL/L (3.5-5.1); SODIUM 146 MMOL/L (136-145)
--- NOTE | 2019-08-01 08:44 | Diagnostic Imaging Report ---
Indication: Dyspnea Technique: One view of the chest Comparison: 9 hours earlier Findings: Consolidation and atelectasis in the right perihilar region persists, there appeared somewhat improved. Stable satisfactory position of endotracheal tube. Interim placement of a nasogastric tube, tip well visualized, probably but not definitively in satisfactory position. The heart remains borderline enlarged. Impression: Slightly improved right perihilar consolidation and atelectasis Interim nasogastric tube placement position indeterminate on these images-see separate abdomen radiograph report
[2019-08-01] MEDS ORDERED: Ramipril 2.5mg cap ORAL SCH (09:00)
[2019-08-01] MEDS: Metoprolol Tartrate 50mg tab ORAL SCH ×2 (09:00→21:00)
[2019-08-01] MEDS: Amiodarone 200mg tab ORAL SCH ×2 (09:00→17:53)
[2019-08-01] MEDS ORDERED: Imdur 30mg tab ORAL SCH (09:00)
[2019-08-01] MEDS: Vitamin D 1000 IU Tab ORAL SCH (09:33)
[2019-08-01] MEDS: Thiamine 100mg tab ORAL SCH (09:34)
[2019-08-01] MEDS: Pantoprazole Inj IVP SCH (09:34)
[2019-08-01] MEDS: Heparin 5000 units/ml inj SUBQ SCH ×2 (09:35→21:03)
--- NOTE | 2019-08-01 09:55 | Diagnostic Imaging Report ---
Indication: Post nasogastric tube placement Technique: Supine view of the abdomen Comparison: 03/21/2011 Findings: Interim placement of nasogastric tube, tip of which projects at the level gastric fundus, proximal port difficult to visualize, suspect at the level of the gastroesophageal junction There is a right groin central venous catheter. Small bowel loops are somewhat prominent Impression: Slightly high position of nasogastric tube. Advancement recommended. Right groin central venous catheter appears satisfactory. Nonspecific prominent small bowel loops
--- NOTE | 2019-08-01 11:37 | Pulmonolgy Critical Care Note ---
Critical Care - Asmt/Plan Problems: (1) Cardiopulmonary arrest (2) Nosocomial pneumonia (3) Acute respiratory failure (4) COPD (chronic obstructive pulmonary disease) (5) Atrial fibrillation (6) Dementia with behavioral disturbance (7) CAD (coronary artery disease) Respiratory: monitor respiratory rate, adjust FIO2, CXR Cardiac: continue to monitor HR/BP Renal: F/U I&O, keep IV fluid Infectious Disease: check cultures Gastrointestinal: continue feedings/current rate Endocrine: monitor blood sugar Hematologic: monitor H/H, transfuse if hgb<8.5 Neurologic: PRN Ativan, PRN Morphine, keep patient comfortable Affect: PRN ativan Prophylaxis: Protonix, Heparin Time Spent (Minutes): 40 Notes 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, 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 Discussed with: nurses, consultants Critical Care - Objective Last 24 Hour Vital Signs Date Time Temp Pulse Resp B/P (MAP) Pulse Ox O2 Delivery O2 Flow Rate FiO2 08/01/19 10:25 59 18 40 08/01/19 10:00 140/57 08/01/19 09:00 119/54 08/01/19 09:00 64 126/53 08/01/19 09:00 126/53 08/01/19 09:00 126/53 08/01/19 08:45 66 16 144/64 (90) 97 08/01/19 08:30 64 18 126/60 (82) 98 08/01/19 08:29 64 18 50 08/01/19 08:27 50 08/01/19 08:15 60 18 136/69 (91) 97 08/01/19 08:02 60/32 08/01/19 08:00 99.8 66 19 108/55 (72) 96 08/01/19 08:00 60 08/01/19 08:00 Mechanical Ventilator 08/01/19 07:45 63 18 60/32 (41) 97 08/01/19 07:30 58 18 102/53 (69) 97 08/01/19 07:15 63 18 97/54 (68) 97 08/01/19 07:02 61 18 60 08/01/19 07:00 64 18 120/50 (73) 98 08/01/19 07:00 102/53 08/01/19 06:45 60 18 126/45 (72) 97 08/01/19 06:30 58 18 104/43 (63) 97 08/01/19 06:30 63 20 08/01/19 06:15 60 18 105/47 (66) 97 08/01/19 06:00 107/37 08/01/19 06:00 59 18 107/37 (60) 96 08/01/19 05:45 61 18 90/40 (57) 96 08/01/19 05:38 64 16 111/45 (67) 100 08/01/19 05:30 84 18 155/112 (126) 100 08/01/19 05:15 68 18 111/41 (64) 98 08/01/19 05:11 64 18 60 08/01/19 05:00 70 20 119/59 (79) 98 08/01/19 05:00 111/41 08/01/19 04:45 77 17 118/46 (70) 99 08/01/19 04:30 75 23 152/136 (141) 99 08/01/19 04:15 75 16 137/60 (85) 95 08/01/19 04:00 61 08/01/19 04:00 137/60 08/01/19 04:00 Mechanical Ventilator 08/01/19 04:00 100 08/01/19 04:00 97.8 62 18 116/58 (77) 97 08/01/19 03:53 118/50 08/01/19 03:52 118/52 08/01/19 03:45 63 18 118/50 (72) 98 08/01/19 03:34 67 18 60 08/01/19 03:30 68 17 120/50 (73) 99 08/01/19 03:15 70 19 108/48 (68) 99 08/01/19 03:00 71 18 117/58 (77) 99 08/01/19 03:00 108/48 08/01/19 02:45 73 17 123/53 (76) 99 08/01/19 02:30 65 19 95/51 (66) 99 08/01/19 02:15 63 18 102/43 (62) 99 08/01/19 02:00 102/43 08/01/19 02:00 68 17 106/77 (87) 100 08/01/19 01:45 65 18 99/53 (68) 100 08/01/19 01:30 65 18 106/46 (66) 100 08/01/19 01:25 62 18 70 08/01/19 01:15 65 18 105/53 (70) 100 08/01/19 01:00 105/53 08/01/19 01:00 64 18 99/47 (64) 100 08/01/19 00:56 66 17 112/48 (69) 100 08/01/19 00:55 79/38 08/01/19 00:45 63 18 147/51 (83) 100 08/01/19 00:36 65 15 101/64 (76) 99 08/01/19 00:30 63 18 79/38 (52) 100 08/01/19 00:10 80 08/01/19 00:03 Mechanical Ventilator 08/01/19 00:00 97.5 72 18 95/56 (69) 100 08/01/19 00:00 100 07/31/19 23:30 70 18 69/40 (50) 95 07/31/19 23:00 81/42 07/31/19 23:00 75 18 81/42 (55) 91 07/31/19 22:43 74 18 90 07/31/19 22:30 78 18 86/63 (71) 96 07/31/19 22:15 79 18 85/40 (55) 95 07/31/19 22:00 85 18 52/38 (43) 90 07/31/19 22:00 83/22 07/31/19 21:45 90 18 75/43 (54) 90 07/31/19 21:30 105 18 64/39 (47) 92 07/31/19 21:15 111 18 47/23 (31) 90 07/31/19 21:09 116 18 98 Mechanical Ventilator 100 07/31/19 21:08 98 Mechanical Ventilator 100 07/31/19 21:00 122 18 63/43 (50) 95 07/31/19 21:00 120 59/22 07/31/19 20:58 122 18 100 07/31/19 20:50 Mechanical Ventilator 07/31/19 20:45 95.2 123 18 110/61 (77) 100 07/31/19 20:45 100 07/31/19 20:45 123 07/31/19 20:00 97.7 86 17 110/53 (72) 96 07/31/19 20:00 3.0 07/31/19 16:43 96.4 71 18 132/70 (90) 98 07/31/19 16:00 84 07/31/19 16:00 3.0 07/31/19 12:00 96.6 64 24 117/53 (74) 100 07/31/19 12:00 64 07/31/19 12:00 3.0 Status: sedated Condition: critical Neck: full ROM Lungs: chest wall tender Heart: HR/BP unstable Abdomen: soft, active bowel sounds Extremities: edema Critical Care - Subjective ROS Limited/Unobtainable: Yes Interval Events: Pt had a cardiac arrest while the counter maker was in the room, who ran the code and revived him. Pt is transferred to ICU afterwards. FI02: 40 Vent Support Breath Rate: 18 Vent Support Mode: AC Vent Tidal Volume: 650 Sputum Amount: Small PEEP: 5.0 PIP: 38 I&O: Intake and Output 07/31/19 08/01/19 19:00 07:00 Intake Total 940 ml 1240.0 ml Balance 940 ml 1240.0 ml Intake Oral 940 ml IV Total 1240.0 ml # Voids 8 # Bowel Movements 1 2 CXR: ET in a good position ET-Tube: 7.5 ET Position: 23 Labs: Laboratory Tests Test 07/31/19 22:20 08/01/19 05:00 Arterial Blood pH 7.299 (7.350-7.450) Arterial Blood Partial Pressure CO2 72.6 mmHg (35.0-45.0) *H Arterial Blood Partial Pressure O2 304.2 mmHg (75.0-100.0) H Arterial Blood HCO3 34.8 mmol/L (22.0-26.0) H Arterial Blood Oxygen Saturation 99.3 % (95-100) Arterial Blood Base Excess 5.7 (-2-2) H Joe Test Positive White Blood Count 24.8 K/UL (4.8-10.8) #*H Red Blood Count 4.46 M/UL (4.70-6.10) L Hemoglobin 14.1 G/DL (14.2-18.0) L Hematocrit 42.2 % (42.0-52.0) Mean Corpuscular Volume 95 FL (80-99) Mean Corpuscular Hemoglobin 31.6 PG (27.0-31.0) H Mean Corpuscular Hemoglobin Concent 33.4 G/DL (32.0-36.0) Red Cell Distribution Width 12.5 % (11.6-14.8) Platelet Count 287 K/UL (150-450) Mean Platelet Volume 6.1 FL (6.5-10.1) L Neutrophils (%) (Auto) % (45.0-75.0) Lymphocytes (%) (Auto) % (20.0-45.0) Monocytes (%) (Auto) % (1.0-10.0) Eosinophils (%) (Auto) % (0.0-3.0) Basophils (%) (Auto) % (0.0-2.0) Differential Total Cells Counted 100 Neutrophils % (Manual) 82 % (45-75) H Lymphocytes % (Manual) 10 % (20-45) L Monocytes % (Manual) 8 % (1-10) Eosinophils % (Manual) 0 % (0-3) Basophils % (Manual) 0 % (0-2) Band Neutrophils 0 % (0-8) Platelet Estimate Adequate Platelet Morphology Normal Red Blood Cell Morphology Normal Sodium Level 146 MMOL/L (136-145) H Potassium Level 4.7 MMOL/L (3.5-5.1) Chloride Level 106 MMOL/L (98-107) Carbon Dioxide Level 31 MMOL/L (21-32) Anion Gap 9 mmol/L (5-15) Blood Urea Nitrogen 41 mg/dL (7-18) H Creatinine 2.0 MG/DL (0.55-1.30) #H Estimat Glomerular Filtration Rate 32.5 mL/min (>60) Glucose Level 183 MG/DL (74-106) H Calcium Level 8.7 MG/DL (8.5-10.1) Total Bilirubin 0.6 MG/DL (0.2-1.0) Aspartate Amino Transf (AST/SGOT) 35 U/L (15-37) Alanine Aminotransferase (ALT/SGPT) 49 U/L (12-78) Alkaline Phosphatase 61 U/L (46-116) Pro-B-Type Natriuretic Peptide 9787 pg/mL (0-125) H Total Protein 5.5 G/DL (6.4-8.2) L Albumin 2.4 G/DL (3.4-5.0) L Globulin 3.1 g/dL Albumin/Globulin Ratio 0.8 (1.0-2.7) L Nicole Graves MD Aug 01, 2019 11:37
[2019-08-01] MEDS: Norepinephrine Bitartrate 8 MG in D5W 500ml 492 ML IV SCH (12:16)
[2019-08-01] MEDS: 1/2NS w/KCl 20mEq 1000ml 1,000 ML IV SCH (12:19)
--- NOTE | 2019-08-01 15:22 | Infectious Diseases Prog Note ---
Assessment/Plan Assessment/Plan ASSESSMENT: The patient is a 79-year-old male with: Leukocytosis Status post sepsis Pneumonia ( probable asp) Urinary tract infection, SP Rx Afebrile. Ro bacteremia 07/31 Sp Code blue and intubation Hyperlipidemia. COPD. History of GERD. History of encephalopathy. History of CAD/MD. History of cardiomyopathy. 7. Hypertension. PLAN: continue the patient on Zosyn and IV Vanco # 1 and DC Rocephin day # 03/13- 14 - 07/31 sp sp Dox # 6 Monitor CBC. Monitor BMP. Monitor chest x-ray Cx ( B, U,S ) Rsp Support . Subjective Allergies: Coded Allergies: No Known Allergies (Unverified , 06/03/17) Subjective leukocytosis SP Code blue and intubation low grade fever Objective Vital Signs Last 24 Hour Vital Signs Date Time Temp Pulse Resp B/P (MAP) Pulse Ox O2 Delivery O2 Flow Rate FiO2 08/01/19 14:41 63 18 40 08/01/19 13:00 143/45 08/01/19 12:27 63 18 40 08/01/19 12:16 112/54 08/01/19 12:00 99.9 63 18 112/54 (73) 100 08/01/19 12:00 112/54 08/01/19 12:00 Mechanical Ventilator 08/01/19 11:58 68 08/01/19 11:45 65 18 113/48 (69) 100 08/01/19 11:30 73 20 127/52 (77) 97 08/01/19 11:15 133/50 08/01/19 11:15 65 18 133/50 (77) 100 08/01/19 11:00 117/57 08/01/19 11:00 68 19 117/57 (77) 100 08/01/19 10:45 146/62 08/01/19 10:45 69 21 146/62 (90) 99 08/01/19 10:30 65 18 135/60 (85) 100 08/01/19 10:25 59 18 40 08/01/19 10:15 66 18 140/57 (84) 100 08/01/19 10:00 140/57 08/01/19 10:00 65 18 134/57 (82) 100 08/01/19 09:45 63 18 130/64 (86) 100 2/28/20 09:30 65 18 132/54 (80) 08/01/19 09:15 62 126/53 (77) 98 08/01/19 09:00 61 08/01/19 09:00 63 18 124/53 (76) 96 08/01/19 09:00 119/54 08/01/19 09:00 64 126/53 08/01/19 09:00 126/53 08/01/19 09:00 126/53 08/01/19 08:45 66 16 144/64 (90) 97 08/01/19 08:30 64 18 126/60 (82) 98 08/01/19 08:29 64 18 50 08/01/19 08:27 50 08/01/19 08:15 60 18 136/69 (91) 97 08/01/19 08:02 60/32 08/01/19 08:00 99.8 66 19 108/55 (72) 96 08/01/19 08:00 60 08/01/19 08:00 Mechanical Ventilator 08/01/19 07:45 63 18 60/32 (41) 97 08/01/19 07:30 58 18 102/53 (69) 97 08/01/19 07:15 63 18 97/54 (68) 97 08/01/19 07:02 61 18 60 08/01/19 07:00 64 18 120/50 (73) 98 08/01/19 07:00 102/53 08/01/19 06:45 60 18 126/45 (72) 97 08/01/19 06:30 58 18 104/43 (63) 97 08/01/19 06:30 63 20 08/01/19 06:15 60 18 105/47 (66) 97 08/01/19 06:00 107/37 08/01/19 06:00 59 18 107/37 (60) 96 08/01/19 05:45 61 18 90/40 (57) 96 08/01/19 05:38 64 16 111/45 (67) 100 08/01/19 05:30 84 18 155/112 (126) 100 08/01/19 05:15 68 18 111/41 (64) 98 08/01/19 05:11 64 18 60 08/01/19 05:00 70 20 119/59 (79) 98 2/28/20 05:00 111/41 08/01/19 04:45 77 17 118/46 (70) 99 08/01/19 04:30 75 23 152/136 (141) 99 08/01/19 04:15 75 16 137/60 (85) 95 08/01/19 04:00 61 08/01/19 04:00 137/60 08/01/19 04:00 Mechanical Ventilator 08/01/19 04:00 100 08/01/19 04:00 97.8 62 18 116/58 (77) 97 08/01/19 03:53 118/50 08/01/19 03:52 118/52 08/01/19 03:45 63 18 118/50 (72) 98 08/01/19 03:34 67 18 60 08/01/19 03:30 68 17 120/50 (73) 99 08/01/19 03:15 70 19 108/48 (68) 99 08/01/19 03:00 71 18 117/58 (77) 99 08/01/19 03:00 108/48 08/01/19 02:45 73 17 123/53 (76) 99 08/01/19 02:30 65 19 95/51 (66) 99 08/01/19 02:15 63 18 102/43 (62) 99 08/01/19 02:00 102/43 08/01/19 02:00 68 17 106/77 (87) 100 08/01/19 01:45 65 18 99/53 (68) 100 08/01/19 01:30 65 18 106/46 (66) 100 08/01/19 01:25 62 18 70 08/01/19 01:15 65 18 105/53 (70) 100 08/01/19 01:00 105/53 08/01/19 01:00 64 18 99/47 (64) 100 08/01/19 00:56 66 17 112/48 (69) 100 08/01/19 00:55 79/38 08/01/19 00:45 63 18 147/51 (83) 100 08/01/19 00:36 65 15 101/64 (76) 99 08/01/19 00:30 63 18 79/38 (52) 100 08/01/19 00:10 80 08/01/19 00:03 Mechanical Ventilator 2/28/20 00:00 97.5 72 18 95/56 (69) 100 08/01/19 00:00 100 07/31/19 23:30 70 18 69/40 (50) 95 07/31/19 23:00 81/42 07/31/19 23:00 75 18 81/42 (55) 91 07/31/19 22:43 74 18 90 07/31/19 22:30 78 18 86/63 (71) 96 07/31/19 22:15 79 18 85/40 (55) 95 07/31/19 22:00 85 18 52/38 (43) 90 07/31/19 22:00 83/22 07/31/19 21:45 90 18 75/43 (54) 90 07/31/19 21:30 105 18 64/39 (47) 92 07/31/19 21:15 111 18 47/23 (31) 90 07/31/19 21:09 116 18 98 Mechanical Ventilator 100 07/31/19 21:08 98 Mechanical Ventilator 100 07/31/19 21:00 122 18 63/43 (50) 95 07/31/19 21:00 120 59/22 07/31/19 20:58 122 18 100 07/31/19 20:50 Mechanical Ventilator 07/31/19 20:45 95.2 123 18 110/61 (77) 100 07/31/19 20:45 100 07/31/19 20:45 123 07/31/19 20:00 97.7 86 17 110/53 (72) 96 07/31/19 20:00 3.0 07/31/19 16:43 96.4 71 18 132/70 (90) 98 07/31/19 16:00 84 07/31/19 16:00 3.0 Height (Feet): 5 Height (Inches): 6.00 Weight (Pounds): 211 HEENT: atraumatic Respiratory/Chest: decreased breath sounds, accessory muscle use Cardiovascular: normal rate Abdomen: no organomegaly Laboratory Tests Test 07/31/19 22:20 08/01/19 05:00 Arterial Blood pH 7.299 (7.350-7.450) Arterial Blood Partial Pressure CO2 72.6 mmHg (35.0-45.0) *H Arterial Blood Partial Pressure O2 304.2 mmHg (75.0-100.0) H Arterial Blood HCO3 34.8 mmol/L (22.0-26.0) H Arterial Blood Oxygen Saturation 99.3 % (95-100) Arterial Blood Base Excess 5.7 (-2-2) H Joe Test Positive White Blood Count 24.8 K/UL (4.8-10.8) #*H Red Blood Count 4.46 M/UL (4.70-6.10) L Hemoglobin 14.1 G/DL (14.2-18.0) L Hematocrit 42.2 % (42.0-52.0) Mean Corpuscular Volume 95 FL (80-99) Mean Corpuscular Hemoglobin 31.6 PG (27.0-31.0) H Mean Corpuscular Hemoglobin Concent 33.4 G/DL (32.0-36.0) Red Cell Distribution Width 12.5 % (11.6-14.8) Platelet Count 287 K/UL (150-450) Mean Platelet Volume 6.1 FL (6.5-10.1) L Neutrophils (%) (Auto) % (45.0-75.0) Lymphocytes (%) (Auto) % (20.0-45.0) Monocytes (%) (Auto) % (1.0-10.0) Eosinophils (%) (Auto) % (0.0-3.0) Basophils (%) (Auto) % (0.0-2.0) Differential Total Cells Counted 100 Neutrophils % (Manual) 82 % (45-75) H Lymphocytes % (Manual) 10 % (20-45) L Monocytes % (Manual) 8 % (1-10) Eosinophils % (Manual) 0 % (0-3) Basophils % (Manual) 0 % (0-2) Band Neutrophils 0 % (0-8) Platelet Estimate Adequate Platelet Morphology Normal Red Blood Cell Morphology Normal Sodium Level 146 MMOL/L (136-145) H Potassium Level 4.7 MMOL/L (3.5-5.1) Chloride Level 106 MMOL/L (98-107) Carbon Dioxide Level 31 MMOL/L (21-32) Anion Gap 9 mmol/L (5-15) Blood Urea Nitrogen 41 mg/dL (7-18) H Creatinine 2.0 MG/DL (0.55-1.30) #H Estimat Glomerular Filtration Rate 32.5 mL/min (>60) Glucose Level 183 MG/DL (74-106) H Calcium Level 8.7 MG/DL (8.5-10.1) Total Bilirubin 0.6 MG/DL (0.2-1.0) Aspartate Amino Transf (AST/SGOT) 35 U/L (15-37) Alanine Aminotransferase (ALT/SGPT) 49 U/L (12-78) Alkaline Phosphatase 61 U/L (46-116) Pro-B-Type Natriuretic Peptide 9787 pg/mL (0-125) H Total Protein 5.5 G/DL (6.4-8.2) L Albumin 2.4 G/DL (3.4-5.0) L Globulin 3.1 g/dL Albumin/Globulin Ratio 0.8 (1.0-2.7) L Current Medications Medications (Trade) Dose Ordered Sig/[facility] Route PRN Reason Start Time Stop Time Status Last Admin Dose Admin Acetaminophen (Tylenol) 650 mg Q4H PRN ORAL Mild Pain/Temp > 100.5 08/01/19 02:00 08/20/19 17:59 Acetaminophen (Tylenol) 1,000 mg Q6H PRN ORAL Moderate Pain (Pain Scale 4-6) 08/01/19 00:00 08/20/19 17:59 Amiodarone HCl (Cordarone) 200 mg BID ORAL 08/01/19 09:00 08/27/19 08:59 Atorvastatin Calcium (Lipitor) 40 mg BEDTIME ORAL 08/01/19 21:00 08/20/19 20:59 Ceftriaxone Sodium 2 gm/ Dextrose 110 ml @ 220 mls/hr Q24H IVPB 08/01/19 06:00 08/05/19 20:59 08/01/19 06:58 Chlorhexidine Gluconate (Kamila-Hex 2%) 1 applic DAILY@2000 TOPIC 08/01/19 20:00 08/31/19 19:59 Clopidogrel Bisulfate (Plavix) 75 mg DAILY ORAL 08/01/19 09:00 08/21/19 08:59 08/01/19 09:34 Haloperidol Lactate (Haldol) 5 mg Q6H PRN IM Agitation 07/31/19 23:30 08/28/19 23:29 08/01/19 04:43 Heparin Sodium (Porcine) (Heparin 5000 units/ml) 5,000 units EVERY 12 HOURS SUBQ 08/01/19 09:00 08/20/19 20:59 08/01/19 09:35 Hydralazine HCl (Apresoline) 10 mg Q6H PRN IV For High Blood Pressure 08/01/19 00:15 08/25/19 12:14 Hydralazine HCl (Apresoline) 25 mg Q6H PRN ORAL For High Blood Pressure 08/01/19 00:15 08/20/19 18:14 Isosorbide Mononitrate (Imdur) 30 mg DAILY ORAL 08/01/19 09:00 08/21/19 08:59 Metoprolol Tartrate (Lopressor) 50 mg Q12HR ORAL 08/01/19 09:00 08/26/19 08:59 Norepinephrine Bitartrate 8 mg/ Dextrose 500 ml @ 0 mls/hr Q24H IV 08/01/19 12:00 08/31/19 11:59 08/01/19 12:16 Olanzapine (ZyPREXA) 5 mg BID ORAL 08/01/19 09:00 08/30/19 14:23 08/01/19 09:34 Ondansetron HCl (Zofran) 4 mg Q4H PRN IVP Nausea & Vomiting 08/01/19 02:30 08/21/19 18:29 Pantoprazole (Protonix) 40 mg DAILY IVP 08/01/19 09:00 08/31/19 08:59 08/01/19 09:34 Ramipril (Altace) 10 mg DAILY ORAL 08/01/19 09:00 08/25/19 08:59 Sodium 1,000 ml @ 75 mls/hr [id number] IV 07/31/19 22:30 08/29/19 22:59 08/01/19 12:19 Thiamine HCl (Vitamin B1) 100 mg DAILY ORAL 08/01/19 09:00 08/21/19 08:59 08/01/19 09:34 Vitamin D (Vitamin D) 5,000 intlu DAILY ORAL 08/01/19 09:00 08/21/19 08:59 08/01/19 09:33 Angel Rudolph MD Aug 01, 2019 15:22
--- NOTE | 2019-08-01 15:47 | Diagnostic Imaging Report ---
Indication: Status post repositioning of orogastric tube Technique: Supine view of the upper abdomen Comparison: 08/01/2019 Findings: Interim advancement of the orogastric tube, tip now projected at the level of the gastric body. Stable mild gaseous distention of small bowel loops. Impression: Satisfactory repositioning of orogastric tube. Other findings as noted
[2019-08-01] MEDS: Piperacillin/Tazobactam 3.375 GM in NS 110 ML IVPB SCH (17:54)
[2019-08-01] MEDS ORDERED: Vancomycin 1.5gm/NS Premix q24h IVPB SCH (18:00)
[2019-08-01] MEDS ORDERED: Dyna-Hex 2% Top Sol 2oz TOPIC SCH (20:00)
[2019-08-01] MEDS: Dyna-Hex 2% Top Sol 2oz TOPIC SCH (20:05)
[2019-08-01] MEDS: Atorvastatin 20mg tab ORAL SCH (21:02)
[2019-08-02] VITALS (56 sets, daily range): BP systolic 83–143; BP diastolic 43–84
[2019-08-02] MEDS: Piperacillin/Tazobactam 3.375 GM in NS 110 ML IVPB SCH ×3 (01:03→16:54)
[2019-08-02] MEDS: LORazepam Inj 2mg/ml 1ml IV PRN ×2 (01:20→22:48)
--- NOTE | 2019-08-02 01:30 | Progress Note ---
DATE: 08/01/2019 CARDIOLOGY PROGRESS NOTE SUBJECTIVE: The patient had a Code Blue yesterday and was resuscitated by me. He remains on ventilator support. Blood pressure parameters are tenuous. He has been on pressors. PHYSICAL EXAMINATION: VITAL SIGNS: Blood pressure earlier 60/32 and now 125/47, heart rate 62, and respiratory rate 18. HEENT: Thin trach secretions. LUNGS: Bilateral breath sounds with rhonchi. CARDIAC: Regular rhythm and rate. Normal S1 and S2. ABDOMEN: Soft. EXTREMITIES: Trace edema. LABORATORY AND DIAGNOSTIC DATA: Chest x-ray reveals right perihilar consolidation. White count 24.8 and hemoglobin 14.1. Sodium 146, BUN 41, and creatinine 2. Pro-natriuretic peptide 9700. IMPRESSION: 1. Status post Code Blue arrest. 2. Acute renal failure. 3. Dehydration. 4. Hypernatremia. 5. Acute on chronic diastolic congestive heart failure. 6. Acute myocardial ischemia. 7. Respiratory failure, on ventilator support. 8. Shock due to sepsis. 9. Critical and guarded. PLAN: 1. Volume support. 2. Taper pressors. 3. Antimicrobials. 4. Ventilator support. 5. Respiratory hygiene. 6. Hold antihypertensives. 7. Free water supplementation and nutritional support by feeding tube. Saeed Sim M.D. DR: LIZETTE JOB#: [id number] CC:
[2019-08-02] MEDS: 1/2NS w/KCl 20mEq 1000ml 1,000 ML IV SCH ×2 (01:50→15:00)
--- NOTE | 2019-08-02 02:45 | Progress Note ---
DATE: 08/02/2019 SUBJECTIVE: The patient is transferred to ICU after he had cardiac arrest, status post Code Blue. The patient is severely agitated. The patient is on Zyprexa 5 mg b.i.d. as well as Haldol p.r.n. MENTAL STATUS EXAMINATION: The patient is confused and disoriented, not able to be engaged. Mood is agitated. Affect is flat. Thought process, unable to assess. ASSESSMENT: Dementia with behavior disturbance. PLAN: 1. On Zyprexa 5 mg b.i.d. 2. Haldol p.r.n. Duarte Vizcarra M.D. DR: LIBRA JOB#: [id number] CC:
[2019-08-02 05:46] LABS: BASOPHILS % (AUTO) 0.5 % (0.0-2.0); EOSINOPHILS % (AUTO) 0.9 % (0.0-3.0); HEMATOCRIT 35.8 % (42.0-52.0); HEMOGLOBIN 12.1 G/DL (14.2-18.0); LYMPHOCYTES % (AUTO) 9.6 % (20.0-45.0); MEAN CORPUSCULAR VOLUME 93 FL (80-99); MONOCYTES % (AUTO) 7.6 % (1.0-10.0); NEUTROPHILS % (AUTO) 81.5 % (45.0-75.0); PLATELET COUNT 199 K/UL (150-450); RED BLOOD COUNT 3.87 M/UL (4.70-6.10); RED CELL DISTRIBUTION WIDTH 12.2 % (11.6-14.8); WHITE BLOOD COUNT 12.6 K/UL (4.8-10.8)
[2019-08-02 06:25] LABS: ALANINE AMINOTRANSFERASE 35 U/L (12-78); ALBUMIN/GLOBULIN RATIO 0.7 (1.0-2.7); ALKALINE PHOSPHATASE 49 U/L (46-116); ANION GAP 6 mmol/L (5-15); ASPARTATE AMINO TRANSFERASE 34 U/L (15-37); BILIRUBIN,TOTAL 0.7 MG/DL (0.2-1.0); BLOOD UREA NITROGEN 56 mg/dL (7-18); CALCIUM 8.2 MG/DL (8.5-10.1); CARBON DIOXIDE 31 MMOL/L (21-32); CHLORIDE 104 MMOL/L (98-107); CREATININE 2.1 MG/DL (0.55-1.30); POTASSIUM 3.8 MMOL/L (3.5-5.1); SODIUM 141 MMOL/L (136-145)
[2019-08-02] MEDS: Pantoprazole Inj IVP SCH (09:00)
[2019-08-02] MEDS: Amiodarone 200mg tab ORAL SCH ×2 (09:00→18:00)
[2019-08-02] MEDS: Metoprolol Tartrate 50mg tab ORAL SCH ×2 (09:01→21:16)
[2019-08-02] MEDS: Vitamin D 1000 IU Tab ORAL SCH (09:01)
[2019-08-02] MEDS: Thiamine 100mg tab ORAL SCH (09:01)
[2019-08-02] MEDS: Heparin 5000 units/ml inj SUBQ SCH ×2 (09:02→21:18)
[2019-08-02] MEDS ORDERED: Vancomycin 1.5gm/NS Premix IVPB ONE (10:00)
--- NOTE | 2019-08-02 10:18 | Diagnostic Imaging Report ---
EXAM: XR Chest, 1 View CLINICAL HISTORY: DYSPNEA TECHNIQUE: Frontal view of the chest. COMPARISON: Chest radiograph on 08/01/2019 FINDINGS: Hardware: Endotracheal tube terminates in the region of the mid thoracic trachea. Enteric tube terminates in the region of the gastric antrum. Lungs/pleura: Streaky opacities in the right lower lung may represent atelectasis versus scarring. Left basilar opacity may represent atelectasis. Component of pneumonia is not excluded. Pulmonary vasculature congestion. No pleural effusion or pneumothorax. Heart/mediastinum: Mild enlargement of the cardiomediastinal silhouette. Soft tissues: Unremarkable. Bones: No acute fracture. Upper abdomen: Normal. IMPRESSION: 1. Streaky opacities in the right lower lung may represent atelectasis versus scarring. Left basilar opacity may represent atelectasis. Component of pneumonia is not excluded. Pulmonary vasculature congestion. 2. Endotracheal tube terminates in the region of the mid thoracic trachea. Enteric tube terminates in the region of the gastric antrum.
[2019-08-02] MEDS: Norepinephrine Bitartrate 8 MG in D5W 500ml 492 ML IV SCH (12:00)
[2019-08-02] MEDS ORDERED: Tubing IV Secondary IV ONE (12:18)
[2019-08-02] MEDS ORDERED: Sterile Water Irrig 1000ml IRRIG ONE (12:18)
[2019-08-02] MEDS ORDERED: NS 275ml ONE (12:18)
[2019-08-02] MEDS ORDERED: D5W 275ml ONE (12:19)
--- NOTE | 2019-08-02 13:42 | Infectious Diseases Prog Note ---
Assessment/Plan Assessment/Plan ASSESSMENT: The patient is a 79-year-old male with: Leukocytosis; improving Status post sepsis Pneumonia ( probable asp) - CXR: 1. Streaky opacities in the right lower lung may represent atelectasis versus scarring. Left basilar opacity may represent atelectasis. Component of pneumonia is not excluded. Pulmonary vasculature congestion. -08/01 ucx NTD sp cx p Bcx p Urinary tract infection, SP Rx Afebrile. Ro bacteremia 07/31 Sp Code blue and intubation Hyperlipidemia. COPD. History of GERD. History of encephalopathy. History of CAD/MS. History of cardiomyopathy. 7. Hypertension. PLAN: continue the patient on Zosyn and IV Vanco #2 -08/01 SP Rocephin day # 10 - 07/31 sp sp Dox # 6 Monitor CBC. Monitor BMP. Monitor chest x-ray f/u Cx ( B, U,S ) Rsp Support . Subjective Allergies: Coded Allergies: No Known Allergies (Unverified , 06/03/17) Subjective Tm 100.3 wbc improved off levophed Objective Vital Signs Last 24 Hour Vital Signs Date Time Temp Pulse Resp B/P (MAP) Pulse Ox O2 Delivery O2 Flow Rate FiO2 08/02/19 13:25 52 18 45 08/02/19 13:00 56 17 99/46 (63) 100 08/02/19 12:45 105/55 08/02/19 12:30 57 18 99/43 (61) 100 08/02/19 12:13 59 08/02/19 12:00 Mechanical Ventilator 08/02/19 12:00 45 08/02/19 12:00 98.7 57 17 104/52 (69) 100 08/02/19 12:00 104/52 08/02/19 11:45 141/51 08/02/19 11:30 53 18 125/49 (74) 100 08/02/19 11:00 53 18 123/56 (78) 100 08/02/19 10:40 51 18 45 08/02/19 10:30 55 18 122/52 (75) 100 08/02/19 10:00 57 17 117/55 (75) 98 08/02/19 10:00 64 18 99 Mechanical Ventilator 45 08/02/19 09:30 57 18 102/53 (69) 100 08/02/19 09:01 64 150/60 08/02/19 09:00 65 18 133/67 (89) 100 08/02/19 08:59 64 18 45 08/02/19 08:30 61 18 125/51 (75) 98 08/02/19 08:09 45 08/02/19 08:09 59 08/02/19 08:00 40 08/02/19 08:00 98.7 58 18 115/52 (73) 100 08/02/19 08:00 Mechanical Ventilator 08/02/19 07:30 60 18 133/60 (84) 100 08/02/19 07:02 59 18 60 08/02/19 07:00 125/56 08/02/19 07:00 60 18 124/56 (78) 100 08/02/19 06:45 60 18 126/52 (76) 100 08/02/19 06:30 62 18 08/02/19 06:30 62 18 118/50 (72) 99 08/02/19 06:15 65 17 122/60 (80) 100 08/02/19 06:00 64 18 119/60 (79) 100 08/02/19 06:00 119/60 08/02/19 05:45 60 08/02/19 05:45 67 18 109/70 (83) 100 08/02/19 05:30 65 20 122/56 (78) 99 08/02/19 05:15 68 19 96/55 (69) 100 08/02/19 05:10 66 18 110/52 (71) 100 08/02/19 05:05 68 18 100 08/02/19 05:00 83/47 08/02/19 05:00 67 18 83/47 (59) 100 08/02/19 04:45 67 18 107/46 (66) 100 08/02/19 04:30 65 18 123/63 (83) 100 08/02/19 04:15 110/65 08/02/19 04:15 74 23 110/65 (80) 98 08/02/19 04:00 99.1 69 20 143/52 (82) 100 08/02/19 04:00 143/52 08/02/19 04:00 40 08/02/19 04:00 64 08/02/19 04:00 Mechanical Ventilator 08/02/19 03:45 64 18 121/54 (76) 100 08/02/19 03:30 65 18 99/57 (71) 100 08/02/19 03:15 66 20 104/62 (76) 100 08/02/19 03:00 66 17 113/54 (73) 100 08/02/19 03:00 113/54 08/02/19 02:59 63 18 100 08/02/19 02:45 65 18 127/46 (73) 100 08/02/19 02:30 64 18 113/52 (72) 100 08/02/19 02:15 72 20 116/76 (89) 92 08/02/19 02:00 99/51 08/02/19 02:00 67 21 99/51 (67) 98 08/02/19 01:45 69 20 102/47 (65) 96 08/02/19 01:30 87/48 08/02/19 01:30 64 17 87/48 (61) 99 08/02/19 01:26 66 24 40 08/02/19 01:20 70 18 120/52 (74) 100 08/02/19 01:15 73 17 125/58 (80) 99 08/02/19 01:15 125/58 08/02/19 01:00 111/48 08/02/19 01:00 66 20 111/48 (69) 98 08/02/19 00:45 65 18 118/52 (74) 98 08/02/19 00:30 65 18 110/47 (68) 97 08/02/19 00:15 68 18 99/47 (64) 96 08/02/19 00:00 40 08/02/19 00:00 117/52 08/02/19 00:00 Mechanical Ventilator 08/02/19 00:00 98.9 70 17 136/59 (84) 97 08/02/19 00:00 68 08/01/19 23:30 68 20 111/50 (70) 97 08/01/19 23:15 70 18 110/44 (66) 97 08/01/19 23:00 126/100 08/01/19 23:00 74 18 126/100 (109) 96 08/01/19 22:57 74 24 40 08/01/19 22:45 75 23 111/65 (80) 97 08/01/19 22:30 64 18 117/49 (71) 100 2/28/20 22:15 62 18 110/56 (74) 100 08/01/19 22:05 64 18 114/73 (87) 100 08/01/19 22:00 67 20 114/59 (77) 100 08/01/19 22:00 114/59 08/01/19 21:45 65 18 130/48 (75) 100 08/01/19 21:30 66 18 130/50 (76) 100 08/01/19 21:15 60 18 111/61 (78) 100 08/01/19 21:00 100.0 64 17 121/58 (79) 100 08/01/19 21:00 121/58 08/01/19 21:00 68 121/58 08/01/19 20:58 67 18 40 08/01/19 20:45 63 18 113/49 (70) 100 08/01/19 20:30 63 18 125/50 (75) 100 08/01/19 20:15 62 18 113/40 (64) 100 08/01/19 20:05 63 18 117/45 (69) 100 08/01/19 20:00 Mechanical Ventilator 08/01/19 20:00 59 08/01/19 20:00 100.3 62 18 129/49 (75) 100 08/01/19 20:00 40 08/01/19 20:00 129/49 08/01/19 19:45 66 15 128/54 (78) 100 08/01/19 19:30 64 18 131/54 (79) 100 08/01/19 19:15 61 18 120/49 (72) 100 08/01/19 19:00 120/49 08/01/19 19:00 68 18 133/47 (75) 100 08/01/19 18:54 66 18 40 08/01/19 18:45 69 19 109/63 (78) 100 08/01/19 18:30 76 20 121/75 (90) 100 08/01/19 18:15 64 18 117/49 (71) 100 08/01/19 18:00 63 18 117/53 (74) 100 08/01/19 18:00 117/49 08/01/19 17:45 65 20 118/38 (64) 99 08/01/19 17:30 65 18 130/53 (78) 99 08/01/19 17:15 69 18 117/45 (69) 100 08/01/19 17:00 117/45 08/01/19 17:00 72 21 116/56 (76) 100 08/01/19 16:55 71 18 40 08/01/19 16:45 68 19 74/35 (48) 99 08/01/19 16:30 66 18 121/47 (71) 100 08/01/19 16:15 64 18 111/48 (69) 99 08/01/19 16:00 Mechanical Ventilator 08/01/19 16:00 40 08/01/19 16:00 64 08/01/19 16:00 124/48 08/01/19 16:00 99.4 65 18 124/48 (73) 99 08/01/19 15:45 64 18 134/53 (80) 100 08/01/19 15:45 134/53 08/01/19 15:30 62 18 134/49 (77) 100 08/01/19 15:15 64 18 127/52 (77) 100 08/01/19 15:00 65 18 133/51 (78) 100 08/01/19 15:00 133/51 08/01/19 14:45 73 18 143/54 (83) 100 08/01/19 14:45 143/54 08/01/19 14:41 63 18 40 08/01/19 14:30 64 18 124/49 (74) 100 08/01/19 14:15 66 18 109/43 (65) 100 08/01/19 14:00 106/49 08/01/19 14:00 65 18 106/49 (68) 100 08/01/19 13:45 71 20 145/47 (79) 100 Height (Feet): 5 Height (Inches): 6.00 Weight (Pounds): 212 Objective HEENT: Thin trach secretions. LUNGS: Bilateral breath sounds with rhonchi. CARDIAC: Regular rhythm and rate. Normal S1 and S2. ABDOMEN: Soft. EXTREMITIES: Trace edema. Microbiology Date/Time Source Procedure Growth Status 08/01/19 16:55 Sputum Gram Stain - Preliminary Resulted 08/01/19 16:55 Sputum Sputum Culture Pending Resulted 08/01/19 16:55 Urine,Clean Catch Urine Culture - Preliminary NO GROWTH Resulted Laboratory Tests Test 08/02/19 04:48 08/02/19 07:38 White Blood Count 12.6 K/UL (4.8-10.8) H Red Blood Count 3.87 M/UL (4.70-6.10) L Hemoglobin 12.1 G/DL (14.2-18.0) L Hematocrit 35.8 % (42.0-52.0) L Mean Corpuscular Volume 93 FL (80-99) Mean Corpuscular Hemoglobin 31.2 PG (27.0-31.0) H Mean Corpuscular Hemoglobin Concent 33.7 G/DL (32.0-36.0) Red Cell Distribution Width 12.2 % (11.6-14.8) Platelet Count 199 K/UL (150-450) Mean Platelet Volume 6.0 FL (6.5-10.1) L Neutrophils (%) (Auto) 81.5 % (45.0-75.0) H Lymphocytes (%) (Auto) 9.6 % (20.0-45.0) L Monocytes (%) (Auto) 7.6 % (1.0-10.0) Eosinophils (%) (Auto) 0.9 % (0.0-3.0) Basophils (%) (Auto) 0.5 % (0.0-2.0) Sodium Level 141 MMOL/L (136-145) Potassium Level 3.8 MMOL/L (3.5-5.1) Chloride Level 104 MMOL/L (98-107) Carbon Dioxide Level 31 MMOL/L (21-32) Anion Gap 6 mmol/L (5-15) Blood Urea Nitrogen 56 mg/dL (7-18) H Creatinine 2.1 MG/DL (0.55-1.30) H Estimat Glomerular Filtration Rate 30.7 mL/min (>60) Glucose Level 145 MG/DL (74-106) H Calcium Level 8.2 MG/DL (8.5-10.1) L Phosphorus Level 3.0 MG/DL (2.5-4.9) Magnesium Level 1.9 MG/DL (1.8-2.4) Total Bilirubin 0.7 MG/DL (0.2-1.0) Aspartate Amino Transf (AST/SGOT) 34 U/L (15-37) Alanine Aminotransferase (ALT/SGPT) 35 U/L (12-78) Alkaline Phosphatase 49 U/L (46-116) Troponin I 0.169 ng/mL (0.000-0.056) Total Protein 4.8 G/DL (6.4-8.2) L Albumin 2.0 G/DL (3.4-5.0) L Globulin 2.8 g/dL Albumin/Globulin Ratio 0.7 (1.0-2.7) L Random Vancomycin Level 14.5 ug/mL Arterial Blood pH 7.536 (7.350-7.450) Arterial Blood Partial Pressure CO2 33.5 mmHg (35.0-45.0) L Arterial Blood Partial Pressure O2 193.8 mmHg (75.0-100.0) H Arterial Blood HCO3 27.7 mmol/L (22.0-26.0) H Arterial Blood Oxygen Saturation 98.6 % (95-100) Arterial Blood Base Excess 5.3 (-2-2) H Joe Test Positive Current Medications Medications (Trade) Dose Ordered Sig/Amaris Route PRN Reason Start Time Stop Time Status Last Admin Dose Admin Acetaminophen (Tylenol) 650 mg Q4H PRN ORAL Mild Pain/Temp > 100.5 08/01/19 02:00 08/20/19 17:59 Acetaminophen (Tylenol) 1,000 mg Q6H PRN ORAL Moderate Pain (Pain Scale 4-6) 08/01/19 00:00 08/20/19 17:59 Amiodarone HCl (Cordarone) 200 mg BID ORAL 08/01/19 09:00 08/27/19 08:59 08/02/19 09:00 Atorvastatin Calcium (Lipitor) 40 mg BEDTIME ORAL 08/01/19 21:00 08/20/19 20:59 08/01/19 21:02 Chlorhexidine Gluconate (Kamila-Hex 2%) 1 applic DAILY@1999 TOPIC 08/01/19 20:00 08/31/19 19:59 08/01/19 20:05 Clopidogrel Bisulfate (Plavix) 75 mg DAILY ORAL 08/01/19 09:00 08/21/19 08:59 08/02/19 09:00 Haloperidol Lactate (Haldol) 5 mg Q6H PRN IM Agitation 07/31/19 23:30 08/28/19 23:29 2/28/20 22:50 Heparin Sodium (Porcine) (Heparin 5000 units/ml) 5,000 units EVERY 12 HOURS SUBQ 08/01/19 09:00 08/20/19 20:59 08/02/19 09:02 Hydralazine HCl (Apresoline) 10 mg Q6H PRN IV For High Blood Pressure 08/01/19 00:15 08/25/19 12:14 Lorazepam (Ativan 2mg/ml 1ml) 1 mg Q6H PRN IV For Anxiety 08/02/19 01:15 08/09/19 01:14 08/02/19 01:20 Metoprolol Tartrate (Lopressor) 50 mg Q12HR ORAL 08/01/19 09:00 08/26/19 08:59 08/02/19 09:01 Norepinephrine Bitartrate 8 mg/ Dextrose 500 ml @ 0 mls/hr Q24H IV 08/01/19 12:00 08/31/19 11:59 08/01/19 12:16 Olanzapine (ZyPREXA) 5 mg BID ORAL 08/01/19 09:00 08/30/19 14:23 08/02/19 09:01 Ondansetron HCl (Zofran) 4 mg Q4H PRN IVP Nausea & Vomiting 08/01/19 02:30 08/21/19 18:29 Pantoprazole (Protonix) 40 mg DAILY IVP 08/01/19 09:00 08/31/19 08:59 08/02/19 09:00 Piperacillin Sod/ Tazobactam Sod 3.375 gm/Sodium Chloride 110 ml @ 27.5 mls/hr Q8H IVPB 08/01/19 17:00 08/08/19 16:59 08/02/19 09:00 Sodium 1,000 ml @ 75 mls/hr [id number] IV 07/31/19 22:30 08/29/19 22:59 08/02/19 01:50 Thiamine HCl (Vitamin B1) 100 mg DAILY ORAL 08/01/19 09:00 08/21/19 08:59 08/02/19 09:01 Vancomycin HCl (Vanco rx to dose) 1 ea DAILY PRN MISC Per rx protocol 08/01/19 15:45 08/31/19 15:44 Vitamin D (Vitamin D) 5,000 intlu DAILY ORAL 08/01/19 09:00 08/21/19 08:59 08/02/19 09:01 Ritu Lozano M.D. Aug 02, 2019 13:42
[2019-08-02] MEDS: Dyna-Hex 2% Top Sol 2oz TOPIC SCH (21:14)
[2019-08-02] MEDS: Atorvastatin 20mg tab ORAL SCH (21:15)
[2019-08-03] VITALS (24 sets, daily range): BP systolic 61–148; BP diastolic 23–94
[2019-08-03] MEDS: Piperacillin/Tazobactam 3.375 GM in NS 110 ML IVPB SCH ×3 (01:19→16:37)
--- NOTE | 2019-08-03 01:45 | Progress Note ---
DATE: 08/02/2019 CARDIOLOGY PROGRESS NOTE SUBJECTIVE: Condition remains critical. Prognosis guarded. The patient in the intensive care unit. Orally intubated. Mechanically ventilated. Sedated, still requiring volume support. Pressors tapering off, but still required. OBJECTIVE: LUNGS: Bilateral breath sounds. Rhonchi. CARDIAC: Regular rhythm and rate. Normal S1, S2. ABDOMEN: Soft. EXTREMITIES: 1+ dependent edema. Monitor sinus with paroxysms of atrial fibrillation. VITAL SIGNS: Vitals reviewed, blood pressure 102/47, pulse 59, respirations 18, temperature 99.1. IMPRESSION: 1. Status post full arrest. 2. Respiratory failure. 3. Acute myocardial ischemia. 4. Acute on chronic diastolic congestive heart failure. 5. Possible non-ST elevation infarction. 6. Acute on chronic renal failure. 7. Severe protein-calorie malnutrition. 8. Bradycardia. 9. Paroxysmal atrial fibrillation. PLAN: 1. Continue hydration. 2. Taper pressors. 3. Ventilator support. 4. Antibiotic adjustment based on cultures. 5. Nutrition by feeding tube with protein supplement. 6. DVT prophylaxis. 7. Amiodarone loading. 8. Decrease beta-todd dosing. Saeed Sim M.D. DR: ASHLEY JOB#: [id number] CC:
[2019-08-03] MEDS: 1/2NS w/KCl 20mEq 1000ml 1,000 ML IV SCH ×2 (03:50→16:36)
--- NOTE | 2019-08-03 06:00 | Progress Note ---
DATE: 08/02/2019 SUBJECTIVE: The patient's condition progressively improved. He is awake, alert, afebrile, and hemodynamically stable. He is now off Levophed drip and his amiodarone was discontinued. PHYSICAL EXAMINATION: VITAL SIGNS: Blood pressure 134/51, his pulse is 64, respirations of 20, and temperature 98.8. HEENT: Eyes were normal. ENT, mucous membranes were moist and intact. NECK: Supple with no JVD without lymph nodes. LUNGS: Clear. HEART: Normal sounds with regular beats. There is no tachycardia at rest. ABDOMEN: Soft and nontender with normal bowel sounds. EXTREMITIES: Warm without cyanosis, clubbing, or edema. LABORATORY AND DIAGNOSTIC DATA: His hemoglobin is 12.1, hematocrit 35.8 with MCV of 93, WBC of 12.6, and platelets are 199,000. His WBC was 24.8 yesterday. His BUN and creatinine are 56 and 2.1 respectively. His sodium is 141, potassium 3.8, chloride 104, CO2 is 31, and his glucose is 145. SGOT, SGPT, and alkaline phosphatase are normal. Troponin was 0.169. ProBNP is 9787. His arterial blood gas, his pH is 7.56, pCO2 is 33, pO2 is 193, bicarb was 27, and O2 saturation of 98. His chest x-ray revealed bilateral atelectasis at both bases and left lower lobe pneumonia. IMPRESSION: The patient's condition is markedly improved. Repeat laboratory tests will be done in the a.m. be weaned in the a.m. The case will be discussed with his prestidigitator and report writer. Modesta Mulligan M.D. DR: ELIS JOB#: [id number] CC:
[2019-08-03] MEDS: Pantoprazole Inj IVP SCH ×2 (09:07→20:36)
[2019-08-03] MEDS: Vitamin D 1000 IU Tab ORAL SCH (09:08)
[2019-08-03] MEDS: Amiodarone 200mg tab ORAL SCH ×2 (09:08→18:26)
[2019-08-03] MEDS: Thiamine 100mg tab ORAL SCH (09:08)
[2019-08-03] MEDS: Heparin 5000 units/ml inj SUBQ SCH ×2 (09:09→20:37)
[2019-08-03] MEDS ORDERED: NS 275ml ONE (09:20)
--- NOTE | 2019-08-03 10:41 | Consultation ---
Consult Note Consult Note Asked to eval the patient for rising Cr Day 13 of hospitalization On July2019 admitted through ER Patient presents with complaints of shortness of breath and cough Patient himself is a poor historian history is limited from his standpoint however nursing facility Reports increased cough congestion possible low-grade fever There was no reports of vomiting or diarrhea Admitting diagnosis at that time was for UTI and dyspnea Patient had a cardiorespiratory arrest on July 31 Transferred to ICU. Intubated on ventilator. Serum creatinine has been rising for the past 2 days. Patient awake and responsive. Has been off pressors. Weaning is in process. Has a Abraham catheter. Being fed through OG tube. Examined and discussed with CARROL Ramos. . Assessment/Plan Acute Renal Failure : AUREA Most likely due to cardiorespiratory arrest and episode of hypotension. Patient also has cardiomyopathy with Ej Fx of 40 % on admission Obese : BMI 34.4 ? DM Other Dx (1) Cardiopulmonary arrest (2) Nosocomial pneumonia (3) Acute respiratory failure (4) COPD (chronic obstructive pulmonary disease) (5) Atrial fibrillation (6) Dementia with behavioral disturbance (7) CAD (coronary artery disease) Plan: Monitor renal parameters. Monitor urine output. Avoid nephrotoxics. Weaning as possible. Correct electrolyte imbalances. Yunior Sexton MD Aug 03, 2019 10:41
[2019-08-03 10:57] LABS: ALANINE AMINOTRANSFERASE 43 U/L (12-78); ALBUMIN/GLOBULIN RATIO 0.6 (1.0-2.7); ALKALINE PHOSPHATASE 51 U/L (46-116); ASPARTATE AMINO TRANSFERASE 26 U/L (15-37); BILIRUBIN,TOTAL 0.6 MG/DL (0.2-1.0); BLOOD UREA NITROGEN 44 mg/dL (7-18); CALCIUM 8.3 MG/DL (8.5-10.1); CARBON DIOXIDE 29 MMOL/L (21-32); CREATININE 1.5 MG/DL (0.55-1.30); PHOSPHORUS 3.1 MG/DL (2.5-4.9)
[2019-08-03 11:06] LABS: POTASSIUM 4.1 MMOL/L (3.5-5.1); SODIUM 146 MMOL/L (136-145)
[2019-08-03 11:07] LABS: ANION GAP 10 mmol/L (5-15); CHLORIDE 107 MMOL/L (98-107)
[2019-08-03] MEDS: Norepinephrine Bitartrate 8 MG in D5W 500ml 492 ML IV SCH (11:25)
[2019-08-03 13:38] LABS: BILIRUBIN, URINE NEGATIVE (NEGATIVE); GLUCOSE, URINE (UA) NEGATIVE (NEGATIVE); KETONES,URINE NEGATIVE (NEGATIVE); LEUKOCYTE ESTERASE ,URINE 1+ (NEGATIVE); NITRITE,URINE NEGATIVE (NEGATIVE); PH,URINE 6.5 (4.5-8.0); PROTEIN,URINE 2+ (NEGATIVE); UROBILINOGEN,URINE NORMAL MG/DL (0.0-1.0)
[2019-08-03 13:39] LABS: APPEARANCE,URINE SLIGHTLY CLOUDY; COLOR,URINE YELLOW
[2019-08-03] MEDS: Dyna-Hex 2% Top Sol 2oz TOPIC SCH (19:57)
[2019-08-03] MEDS: Atorvastatin 20mg tab ORAL SCH (20:36)
[2019-08-03] MEDS: LORazepam Inj 2mg/ml 1ml IV PRN (21:22)
--- NOTE | 2019-08-03 21:45 | Progress Note ---
DATE: 08/03/2019 CARDIOLOGY PROGRESS NOTE SUBJECTIVE: The patient's remains in the intensive care unit, condition has improved. Blood pressure parameters stable. Pressors discontinued. He remains on ventilator support. OBJECTIVE: VITAL SIGNS: Blood pressure 129/52, pulse 68, respiratory rate 18, afebrile. LUNGS: Coarse breath sounds. Rhonchi. HEART: Regular rhythm and rate. Normal S1, S2. ABDOMEN: Soft. EXTREMITIES: Trace edema. Monitored sinus with short episodes of atrial fibrillation. LABORATORY DATA: White count 12.6, hemoglobin 12.1. ABG 7.39, 50, 82. Sodium 146. Troponin 0.131. BUN 44 and creatinine 1.5. Sodium 146, potassium 4.1, bicarb 29, albumin 2. IMPRESSION: 1. Status post Code Blue. 2. Respiratory failure. 3. Paroxysmal atrial fibrillation. 4. [id number] myocardial infarction. 5. Recovered shock. 6. Healthcare-associated pneumonia. 7. Urinary tract infection. 8. Sepsis. PLAN: 1. Antimicrobials. 2. Respiratory hygiene. 3. Volume support. 4. Continue anti-arrhythmic therapy. 5. Monitor volume status. 6. Reassess for diuresis. 7. Weaning efforts. Saeed Sim M.D. DR: Bruno JOB#: [id number] CC:
[2019-08-04] VITALS (24 sets, daily range): BP systolic 111–149; BP diastolic 46–107
[2019-08-04] MEDS: Piperacillin/Tazobactam 3.375 GM in NS 110 ML IVPB SCH ×3 (00:39→18:24)
[2019-08-04] MEDS: Haloperidol 5mg/ml Inj IM PRN (01:18)
--- NOTE | 2019-08-04 03:45 | Progress Note ---
DATE: 08/03/2019 SUBJECTIVE: The patient is awake, alert, afebrile, and hemodynamically stable. Denied any chest pain, shortness of breath, palpitations, or dizziness. PHYSICAL EXAMINATION: VITAL SIGNS: Blood pressure 118/43, his pulse is 72, respirations are 16, and temperature 98.8. HEENT: Eyes were normal. ENT, mucous membranes were moist and intact. NECK: Supple. Trachea less pulsatile with no JVD without lymph nodes. LUNGS: Clear. HEART: Normal sounds with regular beats. ABDOMEN: Soft and nontender with normal bowel sounds. EXTREMITIES: Warm without cyanosis, clubbing, or edema. LABORATORY DATA: Hemoglobin is 12.9, hematocrit 35.8 with MCV of 93, WBC of 12.6, and platelets 199,000. His BUN and creatinine are 44 and 1.5 respectively. His sodium is 146, potassium 4.1, chloride 107, and CO2 is 29. His calcium is 8.3. SGOT, SGPT, and alkaline phosphatase are normal. His troponin was 1.69 and it is now 0.131. His ABG, pH was 7.39, pCO2 was 50, pO2 was 82, bicarb was 30, and O2 sat was 95%. IMPRESSION: The patient's condition has markedly improved. He is going to be decannulated. Decannulation was being done in a.m. Repeat laboratory tests will be done in a.m. Modesta Mulligan M.D. DR: JESUS JOB#: [id number] CC:
[2019-08-04 05:38] LABS: BASOPHILS % (AUTO) 0.5 % (0.0-2.0); EOSINOPHILS % (AUTO) 3.6 % (0.0-3.0); HEMATOCRIT 33.7 % (42.0-52.0); HEMOGLOBIN 11.3 G/DL (14.2-18.0); LYMPHOCYTES % (AUTO) 11.5 % (20.0-45.0); MEAN CORPUSCULAR VOLUME 93 FL (80-99); MONOCYTES % (AUTO) 9.3 % (1.0-10.0); NEUTROPHILS % (AUTO) 75.1 % (45.0-75.0); PLATELET COUNT 196 K/UL (150-450); RED BLOOD COUNT 3.62 M/UL (4.70-6.10); RED CELL DISTRIBUTION WIDTH 12.4 % (11.6-14.8); WHITE BLOOD COUNT 8.5 K/UL (4.8-10.8)
[2019-08-04 05:55] LABS: ALANINE AMINOTRANSFERASE 16 U/L (12-78); ALBUMIN/GLOBULIN RATIO 0.6 (1.0-2.7); ALKALINE PHOSPHATASE 53 U/L (46-116); ANION GAP 6 mmol/L (5-15); ASPARTATE AMINO TRANSFERASE 18 U/L (15-37); BILIRUBIN,TOTAL 0.5 MG/DL (0.2-1.0); BLOOD UREA NITROGEN 32 mg/dL (7-18); CALCIUM 8.3 MG/DL (8.5-10.1); CARBON DIOXIDE 30 MMOL/L (21-32); CHLORIDE 108 MMOL/L (98-107); CREATININE 1.1 MG/DL (0.55-1.30); POTASSIUM 4.1 MMOL/L (3.5-5.1); SODIUM 144 MMOL/L (136-145)
[2019-08-04 06:06] LABS: CREATINE KINASE 135 U/L (26-308); GAMMA GLUTAMYL TRANSPEPTIDASE 25 U/L (5-85); PHOSPHORUS 3.7 MG/DL (2.5-4.9)
[2019-08-04] MEDS: 1/2NS w/KCl 20mEq 1000ml 1,000 ML IV SCH (06:20)
--- NOTE | 2019-08-04 07:30 | Progress Note ---
DATE: 08/01/2019 SUBJECTIVE: Last night after the visit, the patient developed acute respiratory arrest and hypotension. He had to be intubated and placed on mechanical ventilation and transferred to the ICU. In the ICU, he was placed on Levophed drip was given by federal appellate clerk. Today, he is awake and alert. Afebrile and hemodynamically stable, on 2 mcg of Levophed drip. OBJECTIVE: VITAL SIGNS: Blood pressure is 114/73, his pulse is 64, respirations are 18, and temperature is 100. HEENT: Eyes were normal. ENT, mucous membranes were moist and intact. NECK: Supple with no JVD without lymph nodes. LUNGS: Clear. HEART: Normal sounds with regular beats. There is no tachycardia at rest. ABDOMEN: Soft and nontender with normal bowel sounds. Gastrostomy site is clean. EXTREMITIES: Warm without cyanosis, clubbing, or edema. LABORATORY AND DIAGNOSTIC DATA: Hemoglobin is 14.1, hematocrit 42.2 with MCV of 95, WBC of 24.8, and platelets 287,000. His BUN and creatinine are 41 and 2.0. They wee 27 and 0.8 yesterday. His sodium is 146, potassium 4.7, chloride 106, and CO2 is 31. His proBNP is 9787. His albumin is 2.4. His total protein is 5.5. Chest x-ray from today revealed improved right perihilar consolidation and atelectasis. A KUB revealed orogastric tube. In addition, there was . IMPRESSION: The patient had septic shock mostly due to myocardial injury, now on Levophed. The Levophed . participated in the care of this patient. The patient is now on piperacillin and tazobactam 3.375 g IV piggyback q.6 h. and vancomycin 250 mg G-tube. The patient is and heparin. not reviewed. We suspect aspiration pneumonia. the medication, Zosyn. Repeat laboratory tests will be done in the a.m. Modesta Mulligan M.D. DR: ELIS JOB#: [id number] CC:
[2019-08-04] MEDS: Amiodarone 200mg tab ORAL SCH ×2 (09:00→18:00)
[2019-08-04] MEDS: Vitamin D 1000 IU Tab ORAL SCH (09:35)
[2019-08-04] MEDS: Thiamine 100mg tab ORAL SCH (09:36)
[2019-08-04] MEDS: Pantoprazole Inj IVP SCH ×2 (09:36→20:44)
[2019-08-04] MEDS: Vancomycin 750mg/NS 275ml IVPB SCH ×4 (09:37→20:45)
[2019-08-04] MEDS: Heparin 5000 units/ml inj SUBQ SCH ×2 (09:38→20:46)
--- NOTE | 2019-08-04 10:11 | Nephrology Progress Note ---
Assessment/Plan Problem List: (1) AUREA (acute kidney injury) (2) Cardiopulmonary arrest (3) Respiratory failure (4) Cardiomyopathy (5) Obesity (BMI 30.0-34.9) (6) DMII (diabetes mellitus, type 2) Assessment Acute Renal Failure : AUREA Most likely due to cardiorespiratory arrest and episode of hypotension. Patient also has cardiomyopathy with Ej Fx of 40 % on admission Obese : BMI 34.4 ? DM Other Dx (1) Cardiopulmonary arrest (2) Nosocomial pneumonia (3) Acute respiratory failure (4) COPD (chronic obstructive pulmonary disease) (5) Atrial fibrillation (6) Dementia with behavioral disturbance (7) CAD (coronary artery disease) Plan Monitor renal parameters. Serum creatinine improved Monitor urine output. Urine output improved. Avoid nephrotoxics. Weaning as possible. Remains intubated at this time. Correct electrolyte imbalances. Change tube feeding to Glucerna. Subjective ROS Limited/Unobtainable: Yes Objective Objective Last 24 Hour Vital Signs Date Time Temp Pulse Resp B/P (MAP) Pulse Ox O2 Delivery O2 Flow Rate FiO2 08/04/19 09:00 59 18 119/74 (89) 99 08/04/19 09:00 59 119/74 08/04/19 09:00 59 18 45 08/04/19 08:00 60 08/04/19 08:00 40 08/04/19 08:00 98.0 58 21 125/56 (79) 99 08/04/19 07:06 100 08/04/19 07:04 71 18 45 08/04/19 07:00 70 18 114/51 (72) 98 08/04/19 06:30 71 20 08/04/19 06:00 71 16 135/61 (85) 94 08/04/19 05:00 75 21 138/78 (98) 100 08/04/19 04:51 72 19 45 08/04/19 04:00 40 08/04/19 04:00 99.0 69 19 127/57 (80) 100 08/04/19 04:00 79 08/04/19 04:00 Mechanical Ventilator 08/04/19 03:00 77 20 45 08/04/19 03:00 64 20 115/51 (72) 100 08/04/19 02:00 74 19 133/90 (104) 100 08/04/19 01:30 78 21 45 08/04/19 01:00 76 17 135/53 (80) 100 08/04/19 00:00 70 08/04/19 00:00 40 08/04/19 00:00 Mechanical Ventilator 08/04/19 00:00 99.0 66 18 139/94 (109) 98 08/03/19 23:23 80 20 45 08/03/19 23:00 72 19 118/43 (68) 98 08/03/19 22:00 72 14 130/55 (80) 97 08/03/19 21:14 76 20 45 08/03/19 21:00 75 19 130/73 (92) 100 08/03/19 20:41 89 129/52 08/03/19 20:00 70 08/03/19 20:00 40 08/03/19 20:00 98.8 68 18 129/52 (77) 98 08/03/19 20:00 Mechanical Ventilator 08/03/19 19:05 73 21 148/76 (100) 87 08/03/19 19:03 74 18 45 08/03/19 18:00 69 21 138/61 (86) 98 08/03/19 17:26 79 18 45 08/03/19 17:00 77 16 140/64 (89) 97 08/03/19 16:00 Mechanical Ventilator 08/03/19 16:00 98.9 81 21 140/61 (87) 100 08/03/19 16:00 40 08/03/19 15:56 70 19 45 08/03/19 15:56 72 08/03/19 15:29 78 18 08/03/19 15:00 79 20 140/69 (92) 100 08/03/19 15:00 79 20 100 08/03/19 14:00 77 18 133/94 (107) 99 08/03/19 13:48 100 08/03/19 13:48 70 18 08/03/19 13:05 70 18 45 08/03/19 13:00 69 17 129/56 (80) 99 08/03/19 12:00 45 08/03/19 12:00 Mechanical Ventilator 08/03/19 12:00 76 18 138/52 (80) 100 08/03/19 11:54 72 08/03/19 11:25 101/84 08/03/19 11:00 99.0 65 16 101/84 (90) 100 Intake and Output 08/03/19 08/04/19 19:00 07:00 Intake Total 1385.01885 ml 1684.46 ml Output Total 680 ml 805 ml Balance 705.46773 ml 879.46 ml Free Water 100 ml IV Total 955.34050 ml 1024.46 ml Tube Feeding 330 ml 660 ml Output Urine Total 680 ml 805 ml # Bowel Movements 2 2 Laboratory Tests 08/03/19 11:01: Urine Color Yellow, Urine Appearance Slightly cloudy, Urine pH 6.5, Urine Specific [place] 1.010, Urine Protein 2+H, Urine Glucose (UA) Negative, Urine Ketones Negative, Urine Blood 4+H, Urine Nitrite Negative, Urine Bilirubin Negative, Urine Urobilinogen Normal, Urine Leukocyte Esterase 1+H, Urine RBC 20- 30H, Urine WBC 0-2, Urine Squamous Epithelial Cells Occasional, Urine Bacteria Occasional, Urine Opiates Screen Negative, Urine Barbiturates Screen Negative, Phencyclidine (PCP) Screen Negative, Urine Amphetamines Screen Negative, Urine Benzodiazepines Screen Negative, Urine Cocaine Screen Negative, Urine Marijuana (THC) Screen Negative 08/03/19 15:04: Arterial Blood pH 7.396, Arterial Blood Partial Pressure CO2 50.5H, Arterial Blood Partial Pressure O2 82.0, Arterial Blood HCO3 30.3H, Arterial Blood Oxygen Saturation 95.0, Arterial Blood Base Excess 4.5H, Joe Test Positive 08/04/19 04:30: White Blood Count 8.5, Red Blood Count 3.62L, Hemoglobin 11.3L, Hematocrit 33.7L , Mean Corpuscular Volume 93, Mean Corpuscular Hemoglobin 31.3H, Mean Corpuscular Hemoglobin Concent 33.6, Red Cell Distribution Width 12.4, Platelet Count 196, Mean Platelet Volume 6.6, Neutrophils (%) (Auto) 75.1H, Lymphocytes ( %) (Auto) 11.5L, Monocytes (%) (Auto) 9.3, Eosinophils (%) (Auto) 3.6H, Basophils (%) (Auto) 0.5, Sodium Level 144, Potassium Level 4.1, Chloride Level 108H, Carbon Dioxide Level 30, Anion Gap 6, Blood Urea Nitrogen 32H, Creatinine 1.1, Estimat Glomerular Filtration Rate > 60, Glucose Level 101, Hemoglobin A1c 6.4H, Uric Acid 3.2, Calcium Level 8.3L, Phosphorus Level 3.7, Magnesium Level 2.0, Total Bilirubin 0.5, Gamma Glutamyl Transpeptidase 25, Aspartate Amino Transf (AST/SGOT) 18, Alanine Aminotransferase (ALT/SGPT) 16, Alkaline Phosphatase 53, Total Creatine Kinase 135, C-Reactive Protein, Quantitative 6.0H , Pro-B-Type Natriuretic Peptide 2522H, Total Protein 5.1L, Albumin 2.0L, Globulin 3.1, Albumin/Globulin Ratio 0.6L, Random Vancomycin Level 7.3 Height (Feet): 5 Height (Inches): 6.00 Weight (Pounds): 214 General Appearance: no apparent distress EENT: other - vented Cardiovascular: normal rate Respiratory/Chest: decreased breath sounds Abdomen: soft Yunior Sexton MD Aug 04, 2019 10:11
--- NOTE | 2019-08-04 10:22 | Pulmonolgy Critical Care Note ---
Critical Care - Asmt/Plan Problems: (1) Cardiopulmonary arrest (2) Nosocomial pneumonia (3) Acute respiratory failure (4) COPD (chronic obstructive pulmonary disease) (5) Atrial fibrillation (6) Dementia with behavioral disturbance (7) CAD (coronary artery disease) Respiratory: monitor respiratory rate, adjust FIO2, CXR Cardiac: continue to monitor HR/BP Renal: F/U I&O, check electrolytes Infectious Disease: check cultures, continue antibiotics Gastrointestinal: continue feedings/current rate Endocrine: monitor blood sugar Hematologic: monitor H/H, transfuse if hgb<8.5 Neurologic: PRN Ativan, PRN Morphine, keep patient comfortable Prophylaxis: Protonix, Heparin Notes 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, 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, consultants, field nurse case managershopper marketing manager - Objective Last 24 Hour Vital Signs Date Time Temp Pulse Resp B/P (MAP) Pulse Ox O2 Delivery O2 Flow Rate FiO2 08/04/19 09:00 59 18 119/74 (89) 99 08/04/19 09:00 59 119/74 08/04/19 09:00 59 18 45 08/04/19 08:00 60 08/04/19 08:00 40 08/04/19 08:00 98.0 58 21 125/56 (79) 99 08/04/19 07:06 100 08/04/19 07:04 71 18 45 08/04/19 07:00 70 18 114/51 (72) 98 08/04/19 06:30 71 20 08/04/19 06:00 71 16 135/61 (85) 94 08/04/19 05:00 75 21 138/78 (98) 100 08/04/19 04:51 72 19 45 08/04/19 04:00 40 08/04/19 04:00 99.0 69 19 127/57 (80) 100 08/04/19 04:00 79 08/04/19 04:00 Mechanical Ventilator 08/04/19 03:00 77 20 45 08/04/19 03:00 64 20 115/51 (72) 100 08/04/19 02:00 74 19 133/90 (104) 100 08/04/19 01:30 78 21 45 08/04/19 01:00 76 17 135/53 (80) 100 08/04/19 00:00 70 08/04/19 00:00 40 08/04/19 00:00 Mechanical Ventilator 08/04/19 00:00 99.0 66 18 139/94 (109) 98 08/03/19 23:23 80 20 45 08/03/19 23:00 72 19 118/43 (68) 98 08/03/19 22:00 72 14 130/55 (80) 97 08/03/19 21:14 76 20 45 08/03/19 21:00 75 19 130/73 (92) 100 08/03/19 20:41 89 129/52 08/03/19 20:00 70 08/03/19 20:00 40 08/03/19 20:00 98.8 68 18 129/52 (77) 98 08/03/19 20:00 Mechanical Ventilator 08/03/19 19:05 73 21 148/76 (100) 87 08/03/19 19:03 74 18 45 08/03/19 18:00 69 21 138/61 (86) 98 08/03/19 17:26 79 18 45 08/03/19 17:00 77 16 140/64 (89) 97 08/03/19 16:00 Mechanical Ventilator 08/03/19 16:00 98.9 81 21 140/61 (87) 100 08/03/19 16:00 40 08/03/19 15:56 70 19 45 08/03/19 15:56 72 08/03/19 15:29 78 18 08/03/19 15:00 79 20 140/69 (92) 100 08/03/19 15:00 79 20 100 08/03/19 14:00 77 18 133/94 (107) 99 08/03/19 13:48 100 08/03/19 13:48 70 18 08/03/19 13:05 70 18 45 08/03/19 13:00 69 17 129/56 (80) 99 08/03/19 12:00 45 08/03/19 12:00 Mechanical Ventilator 08/03/19 12:00 76 18 138/52 (80) 100 08/03/19 11:54 72 08/03/19 11:25 101/84 08/03/19 11:00 99.0 65 16 101/84 (90) 100 Status: awake Condition: critical Neck: full ROM Lungs: clear Heart: HR/BP stable Abdomen: soft, active bowel sounds Extremities: no C/C/E Micro: Microbiology Date/Time Source Procedure Growth Status 08/01/19 16:55 Blood Blood Culture - Preliminary NO GROWTH AFTER 48 HOURS Resulted 08/01/19 16:45 Blood Blood Culture - Preliminary NO GROWTH AFTER 48 HOURS Resulted 08/01/19 16:55 Sputum Gram Stain - Final Complete 08/01/19 16:55 Sputum Sputum Culture - Final NORMAL UPPER RESPIRATORY TOMASA PRESENT Complete 08/01/19 16:55 Urine,Clean Catch Urine Culture - Final Gram Positive Cocci Complete Critical Care - Subjective ROS Limited/Unobtainable: Yes Interval Events: didn't tolerate weaning today Condition: critical EKG Rhythm: Sinus Rhythm FI02: 45 Vent Support Breath Rate: 18 Vent Support Mode: AC Vent Tidal Volume: 650 Sputum Amount: Small PEEP: 5.0 PIP: 35 Tube Feeding Amount: 55 I&O: Intake and Output 08/03/19 08/04/19 19:00 07:00 Intake Total 1385.92442 ml 1684.46 ml Output Total 680 ml 805 ml Balance 705.89013 ml 879.46 ml Free Water 100 ml IV Total 955.87615 ml 1024.46 ml Tube Feeding 330 ml 660 ml Output Urine Total 680 ml 805 ml # Bowel Movements 2 2 ET-Tube: 7.5 ET Position: 23 Labs: Laboratory Tests Test 08/03/19 11:01 08/03/19 15:04 08/04/19 04:30 Urine Color Yellow Urine Appearance Slightly cloudy Urine pH 6.5 (4.5-8.0) Urine Specific [place] 1.010 (1.005-1.035) Urine Protein 2+ (NEGATIVE) H Urine Glucose (UA) Negative (NEGATIVE) Urine Ketones Negative (NEGATIVE) Urine Blood 4+ (NEGATIVE) H Urine Nitrite Negative (NEGATIVE) Urine Bilirubin Negative (NEGATIVE) Urine Urobilinogen Normal MG/DL (0.0-1.0) Urine Leukocyte Esterase 1+ (NEGATIVE) H Urine RBC 20-30 /HPF (0 - 0) H Urine WBC 0-2 /HPF (0 - 0) Urine Squamous Epithelial Cells Occasional /LPF Urine Bacteria Occasional /HPF (NONE) Urine Opiates Screen Negative (NEGATIVE) Urine Barbiturates Screen Negative (NEGATIVE) Phencyclidine (PCP) Screen Negative (NEGATIVE) Urine Amphetamines Screen Negative (NEGATIVE) Urine Benzodiazepines Screen Negative (NEGATIVE) Urine Cocaine Screen Negative (NEGATIVE) Urine Marijuana (THC) Screen Negative (NEGATIVE) Arterial Blood pH 7.396 (7.350-7.450) Arterial Blood Partial Pressure CO2 50.5 mmHg (35.0-45.0) H Arterial Blood Partial Pressure O2 82.0 mmHg (75.0-100.0) Arterial Blood HCO3 30.3 mmol/L (22.0-26.0) H Arterial Blood Oxygen Saturation 95.0 % (95-100) Arterial Blood Base Excess 4.5 (-2-2) H Joe Test Positive White Blood Count 8.5 K/UL (4.8-10.8) Red Blood Count 3.62 M/UL (4.70-6.10) L Hemoglobin 11.3 G/DL (14.2-18.0) L Hematocrit 33.7 % (42.0-52.0) L Mean Corpuscular Volume 93 FL (80-99) Mean Corpuscular Hemoglobin 31.3 PG (27.0-31.0) H Mean Corpuscular Hemoglobin Concent 33.6 G/DL (32.0-36.0) Red Cell Distribution Width 12.4 % (11.6-14.8) Platelet Count 196 K/UL (150-450) Mean Platelet Volume 6.6 FL (6.5-10.1) Neutrophils (%) (Auto) 75.1 % (45.0-75.0) H Lymphocytes (%) (Auto) 11.5 % (20.0-45.0) L Monocytes (%) (Auto) 9.3 % (1.0-10.0) Eosinophils (%) (Auto) 3.6 % (0.0-3.0) H Basophils (%) (Auto) 0.5 % (0.0-2.0) Sodium Level 144 MMOL/L (136-145) Potassium Level 4.1 MMOL/L (3.5-5.1) Chloride Level 108 MMOL/L (98-107) H Carbon Dioxide Level 30 MMOL/L (21-32) Anion Gap 6 mmol/L (5-15) Blood Urea Nitrogen 32 mg/dL (7-18) H Creatinine 1.1 MG/DL (0.55-1.30) Estimat Glomerular Filtration Rate > 60 mL/min (>60) Glucose Level 101 MG/DL (74-106) Hemoglobin A1c 6.4 % (4.3-6.0) H Uric Acid 3.2 MG/DL (2.6-7.2) Calcium Level 8.3 MG/DL (8.5-10.1) L Phosphorus Level 3.7 MG/DL (2.5-4.9) Magnesium Level 2.0 MG/DL (1.8-2.4) Total Bilirubin 0.5 MG/DL (0.2-1.0) Gamma Glutamyl Transpeptidase 25 U/L (5-85) Aspartate Amino Transf (AST/SGOT) 18 U/L (15-37) Alanine Aminotransferase (ALT/SGPT) 16 U/L (12-78) Alkaline Phosphatase 53 U/L (46-116) Total Creatine Kinase 135 U/L (26-308) C-Reactive Protein, Quantitative 6.0 mg/dL (0.00-0.90) H Pro-B-Type Natriuretic Peptide 2522 pg/mL (0-125) H Total Protein 5.1 G/DL (6.4-8.2) L Albumin 2.0 G/DL (3.4-5.0) L Globulin 3.1 g/dL Albumin/Globulin Ratio 0.6 (1.0-2.7) L Random Vancomycin Level 7.3 ug/mL Nicole Graves MD Aug 04, 2019 10:22
[2019-08-04] MEDS: Norepinephrine Bitartrate 8 MG in D5W 500ml 492 ML IV SCH (12:00)
--- NOTE | 2019-08-04 13:00 | Infectious Diseases Prog Note ---
Assessment/Plan Assessment/Plan ASSESSMENT: The patient is a 79-year-old male with: Leukocytosis;SP Status post sepsis Pneumonia ( probable asp) - CXR: 1. Streaky opacities in the right lower lung may represent atelectasis versus scarring. Left basilar opacity may represent atelectasis. Component of pneumonia is not excluded. Pulmonary vasculature congestion. -08/01 ucx NTD sp cx p Bcx p Urinary tract infection, SP Rx Afebrile. Ro bacteremia 07/31 Sp Code blue and intubation Hyperlipidemia. COPD. History of GERD. History of encephalopathy. History of CAD/NM. History of cardiomyopathy. 7. Hypertension. PLAN: continue the patient on Zosyn and IV Vanco # 4 -08/01 SP Rocephin day # 10 - 07/31 sp sp Dox # 6 Monitor CBC. Monitor BMP. Monitor chest x-ray f/u Cx ( B, U,S ) Rsp Support . Subjective Allergies: Coded Allergies: No Known Allergies (Unverified , 06/03/17) Subjective leukocytosis Resolved Objective Vital Signs Last 24 Hour Vital Signs Date Time Temp Pulse Resp B/P (MAP) Pulse Ox O2 Delivery O2 Flow Rate FiO2 08/04/19 12:52 86 18 45 08/04/19 12:00 130/58 08/04/19 12:00 98.1 60 18 130/56 (80) 99 08/04/19 11:20 72 18 45 08/04/19 11:00 61 18 126/70 (88) 98 08/04/19 10:00 59 18 139/64 (89) 98 08/04/19 09:00 59 18 119/74 (89) 99 08/04/19 09:00 59 119/74 08/04/19 09:00 59 18 45 08/04/19 08:00 60 08/04/19 08:00 40 08/04/19 08:00 98.0 58 21 125/56 (79) 99 08/04/19 08:00 Mechanical Ventilator 08/04/19 07:06 100 08/04/19 07:04 71 18 45 08/04/19 07:00 70 18 114/51 (72) 98 08/04/19 06:30 71 20 08/04/19 06:00 71 16 135/61 (85) 94 08/04/19 05:00 75 21 138/78 (98) 100 08/04/19 04:51 72 19 45 08/04/19 04:00 40 08/04/19 04:00 99.0 69 19 127/57 (80) 100 08/04/19 04:00 79 08/04/19 04:00 Mechanical Ventilator 08/04/19 03:00 77 20 45 08/04/19 03:00 64 20 115/51 (72) 100 08/04/19 02:00 74 19 133/90 (104) 100 08/04/19 01:30 78 21 45 08/04/19 01:00 76 17 135/53 (80) 100 08/04/19 00:00 70 08/04/19 00:00 40 08/04/19 00:00 Mechanical Ventilator 08/04/19 00:00 99.0 66 18 139/94 (109) 98 08/03/19 23:23 80 20 45 08/03/19 23:00 72 19 118/43 (68) 98 08/03/19 22:00 72 14 130/55 (80) 97 08/03/19 21:14 76 20 45 08/03/19 21:00 75 19 130/73 (92) 100 08/03/19 20:41 89 129/52 08/03/19 20:00 70 08/03/19 20:00 40 08/03/19 20:00 98.8 68 18 129/52 (77) 98 08/03/19 20:00 Mechanical Ventilator 08/03/19 19:05 73 21 148/76 (100) 87 08/03/19 19:03 74 18 45 08/03/19 18:00 69 21 138/61 (86) 98 08/03/19 17:26 79 18 45 08/03/19 17:00 77 16 140/64 (89) 97 08/03/19 16:00 Mechanical Ventilator 08/03/19 16:00 98.9 81 21 140/61 (87) 100 08/03/19 16:00 40 08/03/19 15:56 70 19 45 08/03/19 15:56 72 08/03/19 15:29 78 18 08/03/19 15:00 79 20 140/69 (92) 100 08/03/19 15:00 79 20 100 08/03/19 14:00 77 18 133/94 (107) 99 08/03/19 13:48 100 08/03/19 13:48 70 18 08/03/19 13:05 70 18 45 08/03/19 13:00 69 17 129/56 (80) 99 Height (Feet): 5 Height (Inches): 6.00 Weight (Pounds): 214 HEENT: mucous membranes moist Respiratory/Chest: no accessory muscle use Cardiovascular: no gallop/murmur Abdomen: non distended Microbiology Date/Time Source Procedure Growth Status 08/01/19 16:55 Blood Blood Culture - Preliminary NO GROWTH AFTER 48 HOURS Resulted 08/01/19 16:45 Blood Blood Culture - Preliminary NO GROWTH AFTER 48 HOURS Resulted 08/01/19 16:55 Sputum Gram Stain - Final Complete 08/01/19 16:55 Sputum Sputum Culture - Final NORMAL UPPER RESPIRATORY TOMASA PRESENT Complete 08/01/19 16:55 Urine,Clean Catch Urine Culture - Final Gram Positive Cocci Complete Laboratory Tests Test 08/03/19 15:04 08/04/19 04:30 Arterial Blood pH 7.396 (7.350-7.450) Arterial Blood Partial Pressure CO2 50.5 mmHg (35.0-45.0) H Arterial Blood Partial Pressure O2 82.0 mmHg (75.0-100.0) Arterial Blood HCO3 30.3 mmol/L (22.0-26.0) H Arterial Blood Oxygen Saturation 95.0 % (95-100) Arterial Blood Base Excess 4.5 (-2-2) H Joe Test Positive White Blood Count 8.5 K/UL (4.8-10.8) Red Blood Count 3.62 M/UL (4.70-6.10) L Hemoglobin 11.3 G/DL (14.2-18.0) L Hematocrit 33.7 % (42.0-52.0) L Mean Corpuscular Volume 93 FL (80-99) Mean Corpuscular Hemoglobin 31.3 PG (27.0-31.0) H Mean Corpuscular Hemoglobin Concent 33.6 G/DL (32.0-36.0) Red Cell Distribution Width 12.4 % (11.6-14.8) Platelet Count 196 K/UL (150-450) Mean Platelet Volume 6.6 FL (6.5-10.1) Neutrophils (%) (Auto) 75.1 % (45.0-75.0) H Lymphocytes (%) (Auto) 11.5 % (20.0-45.0) L Monocytes (%) (Auto) 9.3 % (1.0-10.0) Eosinophils (%) (Auto) 3.6 % (0.0-3.0) H Basophils (%) (Auto) 0.5 % (0.0-2.0) Sodium Level 144 MMOL/L (136-145) Potassium Level 4.1 MMOL/L (3.5-5.1) Chloride Level 108 MMOL/L (98-107) H Carbon Dioxide Level 30 MMOL/L (21-32) Anion Gap 6 mmol/L (5-15) Blood Urea Nitrogen 32 mg/dL (7-18) H Creatinine 1.1 MG/DL (0.55-1.30) Estimat Glomerular Filtration Rate > 60 mL/min (>60) Glucose Level 101 MG/DL (74-106) Hemoglobin A1c 6.4 % (4.3-6.0) H Uric Acid 3.2 MG/DL (2.6-7.2) Calcium Level 8.3 MG/DL (8.5-10.1) L Phosphorus Level 3.7 MG/DL (2.5-4.9) Magnesium Level 2.0 MG/DL (1.8-2.4) Total Bilirubin 0.5 MG/DL (0.2-1.0) Gamma Glutamyl Transpeptidase 25 U/L (5-85) Aspartate Amino Transf (AST/SGOT) 18 U/L (15-37) Alanine Aminotransferase (ALT/SGPT) 16 U/L (12-78) Alkaline Phosphatase 53 U/L (46-116) Total Creatine Kinase 135 U/L (26-308) C-Reactive Protein, Quantitative 6.0 mg/dL (0.00-0.90) H Pro-B-Type Natriuretic Peptide 2522 pg/mL (0-125) H Total Protein 5.1 G/DL (6.4-8.2) L Albumin 2.0 G/DL (3.4-5.0) L Globulin 3.1 g/dL Albumin/Globulin Ratio 0.6 (1.0-2.7) L Random Vancomycin Level 7.3 ug/mL Current Medications Medications (Trade) Dose Ordered Sig/[facility] Route PRN Reason Start Time Stop Time Status Last Admin Dose Admin Acetaminophen (Tylenol) 650 mg Q4H PRN ORAL Mild Pain/Temp > 100.5 08/01/19 02:00 08/20/19 17:59 Acetaminophen (Tylenol) 1,000 mg Q6H PRN ORAL Moderate Pain (Pain Scale 4-6) 08/01/19 00:00 08/20/19 17:59 08/03/19 10:34 Amiodarone HCl (Cordarone) 200 mg BID ORAL 08/01/19 09:00 08/27/19 08:59 08/03/19 18:26 Atorvastatin Calcium (Lipitor) 40 mg BEDTIME ORAL 08/01/19 21:00 08/20/19 20:59 08/03/19 20:36 Chlorhexidine Gluconate (Kamila-Hex 2%) 1 applic DAILY@2000 TOPIC 08/01/19 20:00 08/31/19 19:59 08/03/19 19:57 Clopidogrel Bisulfate (Plavix) 75 mg DAILY ORAL 08/01/19 09:00 08/21/19 08:59 08/04/19 09:38 Haloperidol Lactate (Haldol) 5 mg Q6H PRN IM Agitation 07/31/19 23:30 08/28/19 23:29 08/04/19 01:18 Heparin Sodium (Porcine) (Heparin 5000 units/ml) 5,000 units EVERY 12 HOURS SUBQ 08/01/19 09:00 08/20/19 20:59 08/04/19 09:38 Hydralazine HCl (Apresoline) 10 mg Q6H PRN IV For High Blood Pressure 08/01/19 00:15 08/25/19 12:14 Lorazepam (Ativan 2mg/ml 1ml) 1 mg Q6H PRN IV For Anxiety 08/02/19 01:15 08/09/19 01:14 08/03/19 21:22 Metoprolol Tartrate (Lopressor) 25 mg Q12H ORAL 08/03/19 09:00 09/02/19 08:59 08/03/19 20:41 Norepinephrine Bitartrate 8 mg/ Dextrose 500 ml @ 0 mls/hr Q24H IV 08/01/19 12:00 08/31/19 11:59 08/01/19 12:16 Olanzapine (ZyPREXA) 5 mg BID ORAL 08/01/19 09:00 08/30/19 14:23 08/04/19 09:36 Ondansetron HCl (Zofran) 4 mg Q4H PRN IVP Nausea & Vomiting 08/01/19 02:30 08/21/19 18:29 Pantoprazole (Protonix) 40 mg Q12HR IVP 08/03/19 21:00 08/31/19 08:59 08/04/19 09:36 Piperacillin Sod/ Tazobactam Sod 3.375 gm/Sodium Chloride 110 ml @ 27.5 mls/hr Q8H IVPB 08/01/19 17:00 08/08/19 16:59 08/04/19 09:36 Thiamine HCl (Vitamin B1) 100 mg DAILY ORAL 08/01/19 09:00 08/21/19 08:59 08/04/19 09:36 Vancomycin HCl (Vanco rx to dose) 1 ea DAILY PRN MISC Per rx protocol 08/01/19 15:45 08/31/19 15:44 Vancomycin HCl 750 mg/Sodium Chloride 275 ml @ 183.333 mls/hr Q12H IVPB 08/04/19 09:00 08/09/19 08:59 08/04/19 09:37 Vitamin D (Vitamin D) 5,000 intlu DAILY ORAL 08/01/19 09:00 08/21/19 08:59 08/04/19 09:35 Angel Rudolph MD Aug 04, 2019 13:00
[2019-08-04] MEDS: LORazepam Inj 2mg/ml 1ml IV PRN (13:26)
[2019-08-04] MEDS: Dyna-Hex 2% Top Sol 2oz TOPIC SCH (19:55)
[2019-08-04] MEDS: Atorvastatin 20mg tab ORAL SCH (20:45)
[2019-08-05] VITALS (24 sets, daily range): BP systolic 111–148; BP diastolic 46–84
[2019-08-05] MEDS: Piperacillin/Tazobactam 3.375 GM in NS 110 ML IVPB SCH ×3 (00:37→17:30)
--- NOTE | 2019-08-05 05:30 | Progress Note ---
DATE: 08/04/2019 SUBJECTIVE: The patient now is in ICU on . The patient is stable, confused, and agitated. Continues to require psychotropic medications. MENTAL STATUS EXAMINATION: The patient is having waxing and waning consciousness, confused, and disoriented. Mood is agitated. Affect is flat. Thought process is disorganized. Thought content, no suicidal or homicidal ideation. Cognition is impaired. Insight and judgment nonexistent. ASSESSMENT: 1. Dementia. 2. Acute encephalopathy. PLAN: We will continue current medications. Duarte Vizcarra M.D. DR: FREDERIC JOB#: [id number] CC:
--- NOTE | 2019-08-05 05:30 | Progress Note ---
DATE: 08/04/2019 CARDIOLOGY PROGRESS NOTE SUBJECTIVE: The patient remains on ventilator support, weaning is ongoing. Blood pressure parameters does remain stable, off pressors. Monitored sinus and sinus bradycardia with paroxysms of atrial fibrillation. PHYSICAL EXAMINATION: LUNGS: Bilateral breath sounds with rhonchi. CARDIAC: Irregularly irregular rhythm. Normal S1, S2. ABDOMEN: Soft. EXTREMITIES: Trace edema. LABORATORY DATA: Cultures are reviewed. White count is 8.5, hemoglobin is 11.3. Potassium 4.1, BUN 32, creatinine 1.1. Pro-natriuretic peptide 2522. IMPRESSION: 1. Acute on chronic diastolic and systolic congestive heart failure, improved. 2. Status post cardiopulmonary arrest. 3. Respiratory failure. 4. Acute non ST-elevation myocardial infarction. 5. Sepsis with shock, recovered. 6. Health-care associated pneumonia. 7. Paroxysmal atrial fibrillation. PLAN: 1. Amiodarone, slow loading. 2. Respiratory hygiene. 3. Bronchodilators. 4. Weaning off ventilator. 5. Antiplatelet therapy. 6. Diuresis based on clinical parameters. 7. DVT and stress ulcer prophylaxis. 8. Avoiding full anticoagulation due to bleeding risks in this patient. Saeed Sim M.D. DR: RADHA JOB#: [id number] CC:
[2019-08-05 05:54] LABS: EOSINOPHILS % (AUTO) 4.3 % (0.0-3.0); HEMATOCRIT 32.3 % (42.0-52.0); LYMPHOCYTES % (AUTO) 12.1 % (20.0-45.0); MEAN CORPUSCULAR VOLUME 93 FL (80-99); MONOCYTES % (AUTO) 8.9 % (1.0-10.0); NEUTROPHILS % (AUTO) 73.6 % (45.0-75.0); PLATELET COUNT 187 K/UL (150-450); RED BLOOD COUNT 3.47 M/UL (4.70-6.10); RED CELL DISTRIBUTION WIDTH 12.5 % (11.6-14.8); WHITE BLOOD COUNT 6.6 K/UL (4.8-10.8)
[2019-08-05 06:06] LABS: ALANINE AMINOTRANSFERASE 33 U/L (12-78); ALBUMIN 1.7 G/DL (3.4-5.0); ALBUMIN/GLOBULIN RATIO 0.5 (1.0-2.7); ALKALINE PHOSPHATASE 62 U/L (46-116); ANION GAP 9 mmol/L (5-15); ASPARTATE AMINO TRANSFERASE 28 U/L (15-37); BILIRUBIN,TOTAL 0.4 MG/DL (0.2-1.0); BLOOD UREA NITROGEN 30 mg/dL (7-18); CALCIUM 8.1 MG/DL (8.5-10.1); CARBON DIOXIDE 26 MMOL/L (21-32); CHLORIDE 111 MMOL/L (98-107); PHOSPHORUS 2.7 MG/DL (2.5-4.9); POTASSIUM 3.9 MMOL/L (3.5-5.1); SODIUM 146 MMOL/L (136-145)
[2019-08-05] MEDS: Pantoprazole Inj IVP SCH ×2 (09:02→21:15)
[2019-08-05] MEDS: Vitamin D 1000 IU Tab ORAL SCH (09:03)
[2019-08-05] MEDS: Amiodarone 200mg tab ORAL SCH ×2 (09:03→17:30)
[2019-08-05] MEDS: Vancomycin 750mg/NS 275ml IVPB SCH ×2 (09:03)
[2019-08-05] MEDS: Thiamine 100mg tab ORAL SCH (09:04)
[2019-08-05] MEDS: LORazepam Inj 2mg/ml 1ml IV PRN (09:04)
[2019-08-05] MEDS: Heparin 5000 units/ml inj SUBQ SCH ×2 (09:05→21:32)
[2019-08-05] MEDS ORDERED: Tubing IV Secondary IV ONE (09:06)
[2019-08-05] MEDS ORDERED: NS 275ml ONE (09:06)
--- NOTE | 2019-08-05 10:21 | Nephrology Progress Note ---
Assessment/Plan Problem List: (1) AUREA (acute kidney injury) (2) Cardiopulmonary arrest (3) Respiratory failure (4) Cardiomyopathy (5) Obesity (BMI 30.0-34.9) (6) DMII (diabetes mellitus, type 2) Assessment Acute Renal Failure : AUREA Most likely due to cardiorespiratory arrest and episode of hypotension. Patient also has cardiomyopathy with Ej Fx of 40 % on admission Obese : BMI 34.4 ? DM Other Dx (1) Cardiopulmonary arrest (2) Nosocomial pneumonia (3) Acute respiratory failure (4) COPD (chronic obstructive pulmonary disease) (5) Atrial fibrillation (6) Dementia with behavioral disturbance (7) CAD (coronary artery disease) Plan Stable from Renal stand now- Monitor renal parameters. Serum creatinine improved Monitor urine output. Urine output improved. Avoid nephrotoxics. Weaning as possible. Remains intubated at this time. Correct electrolyte imbalances. Change tube feeding to Glucerna. Subjective ROS Limited/Unobtainable: Yes Objective Objective Last 24 Hour Vital Signs Date Time Temp Pulse Resp B/P (MAP) Pulse Ox O2 Delivery O2 Flow Rate FiO2 08/05/19 10:00 61 16 113/46 (68) 100 08/05/19 09:30 35 08/05/19 09:11 83 135/56 08/05/19 09:00 69 18 135/56 (82) 98 08/05/19 08:30 67 18 35 08/05/19 08:00 Mechanical Ventilator 08/05/19 08:00 45 08/05/19 08:00 73 08/05/19 08:00 97.9 70 18 148/61 (90) 100 08/05/19 07:00 67 19 143/61 (88) 100 08/05/19 07:00 67 19 143/61 (88) 100 08/05/19 06:52 68 18 45 08/05/19 06:30 64 20 08/05/19 06:30 64 20 08/05/19 06:00 66 18 133/84 (100) 100 08/05/19 05:17 61 18 45 08/05/19 05:00 61 18 147/67 (93) 100 08/05/19 04:00 98.5 61 18 147/62 (90) 100 08/05/19 04:00 76 08/05/19 04:00 Mechanical Ventilator 08/05/19 04:00 45 08/05/19 03:26 60 18 45 08/05/19 03:00 60 18 138/58 (84) 100 08/05/19 02:00 62 18 138/65 (89) 100 08/05/19 01:38 62 18 45 08/05/19 01:00 58 18 130/54 (79) 100 08/05/19 00:00 Mechanical Ventilator 08/05/19 00:00 97.9 60 18 133/57 (82) 100 08/05/19 00:00 59 08/05/19 00:00 45 08/04/19 23:49 67 18 45 08/04/19 23:00 63 18 133/56 (81) 100 08/04/19 22:00 68 18 149/59 (89) 100 08/04/19 21:13 59 18 45 08/04/19 21:00 60 18 132/62 (85) 100 08/04/19 21:00 59 132/60 08/04/19 20:00 Mechanical Ventilator 08/04/19 20:00 98.3 63 18 134/60 (84) 100 08/04/19 20:00 62 08/04/19 20:00 45 08/04/19 19:37 61 18 45 08/04/19 19:00 67 18 128/55 (79) 95 08/04/19 18:00 58 18 134/59 (84) 95 08/04/19 17:29 56 18 45 08/04/19 17:00 60 18 122/56 (78) 94 08/04/19 16:00 Mechanical Ventilator 08/04/19 16:00 45 08/04/19 16:00 97.3 59 18 141/65 (90) 96 08/04/19 16:00 57 08/04/19 15:00 60 18 111/52 (71) 98 08/04/19 14:55 69 18 45 08/04/19 14:00 67 18 121/46 (71) 98 08/04/19 13:00 70 18 131/107 (115) 100 08/04/19 12:52 86 18 45 08/04/19 12:00 62 08/04/19 12:00 45 08/04/19 12:00 130/58 08/04/19 12:00 Mechanical Ventilator 08/04/19 12:00 98.1 60 18 130/56 (80) 99 08/04/19 11:20 72 18 45 08/04/19 11:00 61 18 126/70 (88) 98 Intake and Output 08/04/19 08/05/19 19:00 07:00 Intake Total 1325.333 ml 1155.000 ml Output Total 485 ml 415 ml Balance 840.333 ml 740.000 ml IV Total 610.333 ml 495.000 ml Tube Feeding 715 ml 660 ml Output Urine Total 485 ml 415 ml # Bowel Movements 2 2 Current Medications Medications (Trade) Dose Ordered Sig/Amaris Route PRN Reason Start Time Stop Time Status Last Admin Dose Admin Acetaminophen (Tylenol) 650 mg Q4H PRN ORAL Mild Pain/Temp > 100.5 08/01/19 02:00 08/20/19 17:59 Acetaminophen (Tylenol) 1,000 mg Q6H PRN ORAL Moderate Pain (Pain Scale 4-6) 08/01/19 00:00 08/20/19 17:59 08/03/19 10:34 Amiodarone HCl (Cordarone) 200 mg BID ORAL 08/01/19 09:00 08/27/19 08:59 08/05/19 09:03 Atorvastatin Calcium (Lipitor) 40 mg BEDTIME ORAL 08/01/19 21:00 08/20/19 20:59 08/04/19 20:45 Chlorhexidine Gluconate (Kamila-Hex 2%) 1 applic DAILY@2000 TOPIC 08/01/19 20:00 08/31/19 19:59 08/04/19 19:55 Clopidogrel Bisulfate (Plavix) 75 mg DAILY ORAL 08/01/19 09:00 08/21/19 08:59 08/05/19 09:03 Haloperidol Lactate (Haldol) 5 mg Q6H PRN IM Agitation 07/31/19 23:30 08/28/19 23:29 08/04/19 01:18 Heparin Sodium (Porcine) (Heparin 5000 units/ml) 5,000 units EVERY 12 HOURS SUBQ 08/01/19 09:00 08/20/19 20:59 08/05/19 09:05 Hydralazine HCl (Apresoline) 10 mg Q6H PRN IV For High Blood Pressure 08/01/19 00:15 08/25/19 12:14 Lorazepam (Ativan 2mg/ml 1ml) 1 mg Q6H PRN IV For Anxiety 08/02/19 01:15 08/09/19 01:14 08/05/19 09:04 Metoprolol Tartrate (Lopressor) 25 mg Q12H ORAL 08/03/19 09:00 09/02/19 08:59 08/05/19 09:11 Norepinephrine Bitartrate 8 mg/ Dextrose 500 ml @ 0 mls/hr Q24H IV 08/01/19 12:00 08/31/19 11:59 08/01/19 12:16 Olanzapine (ZyPREXA) 5 mg BID ORAL 08/01/19 09:00 08/30/19 14:23 08/05/19 09:03 Ondansetron HCl (Zofran) 4 mg Q4H PRN IVP Nausea & Vomiting 08/01/19 02:30 08/21/19 18:29 Pantoprazole (Protonix) 40 mg Q12HR IVP 08/03/19 21:00 08/31/19 08:59 08/05/19 09:02 Piperacillin Sod/ Tazobactam Sod 3.375 gm/Sodium Chloride 110 ml @ 27.5 mls/hr Q8H IVPB 08/01/19 17:00 08/08/19 16:59 08/05/19 09:03 Thiamine HCl (Vitamin B1) 100 mg DAILY ORAL 08/01/19 09:00 08/21/19 08:59 08/05/19 09:04 Vancomycin HCl (Vanco rx to dose) 1 ea DAILY PRN MISC Per rx protocol 08/01/19 15:45 08/31/19 15:44 Vancomycin HCl 750 mg/Sodium Chloride 275 ml @ 183.333 mls/hr Q12H IVPB 08/04/19 09:00 08/09/19 08:59 08/05/19 09:03 Vitamin D (Vitamin D) 5,000 intlu DAILY ORAL 08/01/19 09:00 08/21/19 08:59 08/05/19 09:03 Laboratory Tests 08/05/19 03:45: White Blood Count 6.6, Red Blood Count 3.47L, Hemoglobin 11.0L, Hematocrit 32.3L , Mean Corpuscular Volume 93, Mean Corpuscular Hemoglobin 31.6H, Mean Corpuscular Hemoglobin Concent 34.1, Red Cell Distribution Width 12.5, Platelet Count 187, Mean Platelet Volume 6.3L, Neutrophils (%) (Auto) 73.6, Lymphocytes ( %) (Auto) 12.1L, Monocytes (%) (Auto) 8.9, Eosinophils (%) (Auto) 4.3H, Basophils (%) (Auto) 1.0, Sodium Level 146H, Potassium Level 3.9, Chloride Level 111H, Carbon Dioxide Level 26, Anion Gap 9, Blood Urea Nitrogen 30H, Creatinine 1.0, Estimat Glomerular Filtration Rate > 60, Glucose Level 115H, Calcium Level 8.1L, Phosphorus Level 2.7, Magnesium Level 2.0, Total Bilirubin 0.4, Aspartate Amino Transf (AST/SGOT) 28, Alanine Aminotransferase (ALT/SGPT) 33, Alkaline Phosphatase 62, Total Protein 4.8L, Albumin 1.7L, Globulin 3.1, Albumin/Globulin Ratio 0.5L 08/05/19 08:10: Arterial Blood pH 7.358, Arterial Blood Partial Pressure CO2 50.9H, Arterial Blood Partial Pressure O2 254.6H, Arterial Blood HCO3 28.0H, Arterial Blood Oxygen Saturation 99.2, Arterial Blood Base Excess 1.8, Joe Test Positive Height (Feet): 5 Height (Inches): 6.00 Weight (Pounds): 213 EENT: other - vented Cardiovascular: normal rate Respiratory/Chest: decreased breath sounds Abdomen: distended Objective no change Yuniro Sexton MD Aug 05, 2019 10:21
--- NOTE | 2019-08-05 10:24 | Pulmonolgy Critical Care Note ---
Critical Care - Asmt/Plan Problems: (1) Cardiopulmonary arrest (2) Nosocomial pneumonia (3) Acute respiratory failure (4) COPD (chronic obstructive pulmonary disease) (5) Atrial fibrillation (6) Dementia with behavioral disturbance (7) CAD (coronary artery disease) Respiratory: monitor respiratory rate, adjust FIO2, CXR Cardiac: continue to monitor HR/BP Renal: F/U I&O, keep IV fluid, check electrolytes Infectious Disease: check cultures, continue antibiotics Gastrointestinal: continue feedings/current rate Endocrine: monitor blood sugar Hematologic: monitor H/H, transfuse if hgb<8.5 Neurologic: PRN Ativan, keep patient comfortable Affect: PRN ativan Disposition: keep in ICU Notes Reviewed: test technician, 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, consultants, disability case managerdata architect manager - Objective Last 24 Hour Vital Signs Date Time Temp Pulse Resp B/P (MAP) Pulse Ox O2 Delivery O2 Flow Rate FiO2 08/05/19 10:00 61 16 113/46 (68) 100 08/05/19 09:30 35 08/05/19 09:11 83 135/56 08/05/19 09:00 69 18 135/56 (82) 98 08/05/19 08:30 67 18 35 08/05/19 08:00 Mechanical Ventilator 08/05/19 08:00 45 08/05/19 08:00 73 08/05/19 08:00 97.9 70 18 148/61 (90) 100 08/05/19 07:00 67 19 143/61 (88) 100 08/05/19 07:00 67 19 143/61 (88) 100 08/05/19 06:52 68 18 45 08/05/19 06:30 64 20 08/05/19 06:30 64 20 08/05/19 06:00 66 18 133/84 (100) 100 08/05/19 05:17 61 18 45 08/05/19 05:00 61 18 147/67 (93) 100 08/05/19 04:00 98.5 61 18 147/62 (90) 100 08/05/19 04:00 76 08/05/19 04:00 Mechanical Ventilator 08/05/19 04:00 45 08/05/19 03:26 60 18 45 08/05/19 03:00 60 18 138/58 (84) 100 08/05/19 02:00 62 18 138/65 (89) 100 08/05/19 01:38 62 18 45 08/05/19 01:00 58 18 130/54 (79) 100 08/05/19 00:00 Mechanical Ventilator 08/05/19 00:00 97.9 60 18 133/57 (82) 100 08/05/19 00:00 59 08/05/19 00:00 45 08/04/19 23:49 67 18 45 08/04/19 23:00 63 18 133/56 (81) 100 08/04/19 22:00 68 18 149/59 (89) 100 08/04/19 21:13 59 18 45 08/04/19 21:00 60 18 132/62 (85) 100 08/04/19 21:00 59 132/60 08/04/19 20:00 Mechanical Ventilator 08/04/19 20:00 98.3 63 18 134/60 (84) 100 08/04/19 20:00 62 08/04/19 20:00 45 08/04/19 19:37 61 18 45 08/04/19 19:00 67 18 128/55 (79) 95 08/04/19 18:00 58 18 134/59 (84) 95 08/04/19 17:29 56 18 45 08/04/19 17:00 60 18 122/56 (78) 94 08/04/19 16:00 Mechanical Ventilator 08/04/19 16:00 45 08/04/19 16:00 97.3 59 18 141/65 (90) 96 08/04/19 16:00 57 08/04/19 15:00 60 18 111/52 (71) 98 08/04/19 14:55 69 18 45 08/04/19 14:00 67 18 121/46 (71) 98 08/04/19 13:00 70 18 131/107 (115) 100 08/04/19 12:52 86 18 45 08/04/19 12:00 62 08/04/19 12:00 45 08/04/19 12:00 130/58 08/04/19 12:00 Mechanical Ventilator 08/04/19 12:00 98.1 60 18 130/56 (80) 99 08/04/19 11:20 72 18 45 08/04/19 11:00 61 18 126/70 (88) 98 Status: awake Condition: critical HEENT: atraumatic, normocephalic Neck: full ROM Heart: HR/BP stable, regular Abdomen: soft, active bowel sounds Extremities: no C/C/E, edema Decubiti: location Critical Care - Subjective Interval Events: tolerated weaning for 5 minutes Condition: critical FI02: 35 Vent Support Breath Rate: 18 Vent Support Mode: AC Vent Tidal Volume: 650 Sputum Amount: Moderate PEEP: 5.0 PIP: 35 Tube Feeding Amount: 55 I&O: Intake and Output 08/04/19 08/05/19 19:00 07:00 Intake Total 1325.333 ml 1155.000 ml Output Total 485 ml 415 ml Balance 840.333 ml 740.000 ml IV Total 610.333 ml 495.000 ml Tube Feeding 715 ml 660 ml Output Urine Total 485 ml 415 ml # Bowel Movements 2 2 ET-Tube: 7.5 ET Position: 23 Labs: Laboratory Tests Test 08/05/19 03:45 08/05/19 08:10 White Blood Count 6.6 K/UL (4.8-10.8) Red Blood Count 3.47 M/UL (4.70-6.10) L Hemoglobin 11.0 G/DL (14.2-18.0) L Hematocrit 32.3 % (42.0-52.0) L Mean Corpuscular Volume 93 FL (80-99) Mean Corpuscular Hemoglobin 31.6 PG (27.0-31.0) H Mean Corpuscular Hemoglobin Concent 34.1 G/DL (32.0-36.0) Red Cell Distribution Width 12.5 % (11.6-14.8) Platelet Count 187 K/UL (150-450) Mean Platelet Volume 6.3 FL (6.5-10.1) L Neutrophils (%) (Auto) 73.6 % (45.0-75.0) Lymphocytes (%) (Auto) 12.1 % (20.0-45.0) L Monocytes (%) (Auto) 8.9 % (1.0-10.0) Eosinophils (%) (Auto) 4.3 % (0.0-3.0) H Basophils (%) (Auto) 1.0 % (0.0-2.0) Sodium Level 146 MMOL/L (136-145) H Potassium Level 3.9 MMOL/L (3.5-5.1) Chloride Level 111 MMOL/L (98-107) H Carbon Dioxide Level 26 MMOL/L (21-32) Anion Gap 9 mmol/L (5-15) Blood Urea Nitrogen 30 mg/dL (7-18) H Creatinine 1.0 MG/DL (0.55-1.30) Estimat Glomerular Filtration Rate > 60 mL/min (>60) Glucose Level 115 MG/DL (74-106) H Calcium Level 8.1 MG/DL (8.5-10.1) L Phosphorus Level 2.7 MG/DL (2.5-4.9) Magnesium Level 2.0 MG/DL (1.8-2.4) Total Bilirubin 0.4 MG/DL (0.2-1.0) Aspartate Amino Transf (AST/SGOT) 28 U/L (15-37) Alanine Aminotransferase (ALT/SGPT) 33 U/L (12-78) Alkaline Phosphatase 62 U/L (46-116) Total Protein 4.8 G/DL (6.4-8.2) L Albumin 1.7 G/DL (3.4-5.0) L Globulin 3.1 g/dL Albumin/Globulin Ratio 0.5 (1.0-2.7) L Arterial Blood pH 7.358 (7.350-7.450) Arterial Blood Partial Pressure CO2 50.9 mmHg (35.0-45.0) H Arterial Blood Partial Pressure O2 254.6 mmHg (75.0-100.0) H Arterial Blood HCO3 28.0 mmol/L (22.0-26.0) H Arterial Blood Oxygen Saturation 99.2 % (95-100) Arterial Blood Base Excess 1.8 (-2-2) Joe Test Positive Nicole Graves MD Aug 05, 2019 10:24
[2019-08-05] MEDS: Norepinephrine Bitartrate 8 MG in D5W 500ml 492 ML IV SCH (12:00)
--- NOTE | 2019-08-05 12:50 | Diagnostic Imaging Report ---
Indication: Dyspnea Comparison: 08/02/2019 A single view chest radiograph was obtained. Findings: There is soft tissue attenuation probably accounting for hazy opacity over the left side of the chest. There is suggestion of interstitial edema bilaterally. The heart is enlarged. Endotracheal tube nasogastric tubes appear in good position. IMPRESSION: Suspected mild CHF/interstitial edema. Soft tissue attenuation likely accounting for increased density over the left-sided chest.
--- NOTE | 2019-08-05 18:30 | Progress Note ---
DATE: 08/05/2019 SUBJECTIVE: The patient is awake, alert, afebrile, hemodynamically stable, but remained tachypneic. PHYSICAL EXAMINATION: VITAL SIGNS: Blood pressure is 111/69, his pulse is 63, respirations are 27, temperature 98.3. HEENT: Eyes were normal. ENT, mucous membranes were moist and intact. NECK: Supple with no JVD without lymph nodes. LUNGS: Clear with equal breath sounds. There is tachypnea at rest. HEART: Normal sounds with regular beats. There is no tachycardia at rest. ABDOMEN: Soft, nontender with normal bowel sounds. EXTREMITIES: Warm without cyanosis, clubbing, or edema. LABORATORY AND DIAGNOSTIC DATA: Hemoglobin is 11.0, hematocrit 32.3 with MCV of 93, WBC of 6.6, and platelets is 187. His BUN and creatinine is 30 and 1.0 respectively. His sodium is 146, potassium 3.9, chloride 111, CO2 is 26. SGOT, SGPT, and alkaline phosphatase are normal. His albumin is 1.7. Total protein is 4.8. Chest x-ray done today suggestive of interstitial edema bilaterally. There is cardiomegaly and no infiltrate. IMPRESSION: The patient has respiratory failure. Remained tachypneic since yesterday. Attempts to extubate the patient failed. The patient will be placed on Solu-Medrol 30 mg IV piggyback q.8 and to be assessed. CBC, BMP, and ABG will be taken in the a.m. Modesta Mulligan M.D. DR: ZACHARY JOB#: [id number] CC:
--- NOTE | 2019-08-05 18:46 | Infectious Diseases Prog Note ---
Assessment/Plan Assessment/Plan ASSESSMENT: The patient is a 79-year-old male with: Leukocytosis;SP Status post sepsis Pneumonia ( probable asp) - CXR: 1. Streaky opacities in the right lower lung may represent atelectasis versus scarring. Left basilar opacity may represent atelectasis. Component of pneumonia is not excluded. Pulmonary vasculature congestion. -08/01 ucx NTD sp cx p Bcx p Urinary tract infection, SP Rx Afebrile. Ro bacteremia 07/31 Sp Code blue and intubation Hyperlipidemia. COPD. History of GERD. History of encephalopathy. History of CAD/DC. History of cardiomyopathy. 7. Hypertension. PLAN: continue the patient on Zosyn and IV Vanco # 5 -08/01 SP Rocephin day # 10 - 07/31 sp sp Dox # 6 Monitor CBC. Monitor BMP. Monitor chest x-ray f/u Cx ( B, U,S ) Rsp Support . Subjective Allergies: Coded Allergies: No Known Allergies (Unverified , 06/03/17) Subjective pt in ICU no acute event Objective Vital Signs Last 24 Hour Vital Signs Date Time Temp Pulse Resp B/P (MAP) Pulse Ox O2 Delivery O2 Flow Rate FiO2 08/05/19 18:17 98.3 08/05/19 18:00 63 18 135/56 (82) 95 08/05/19 17:03 60 18 30 08/05/19 17:00 63 14 111/69 (83) 97 08/05/19 16:00 98.3 61 18 130/58 (82) 97 08/05/19 16:00 68 08/05/19 16:00 Mechanical Ventilator 08/05/19 16:00 30 08/05/19 15:00 59 18 124/64 (84) 10 08/05/19 14:56 60 18 30 08/05/19 14:00 60 17 122/54 (76) 100 08/05/19 13:00 58 17 119/53 (75) 100 08/05/19 12:48 58 18 30 08/05/19 12:00 58 08/05/19 12:00 Mechanical Ventilator 08/05/19 12:00 115/50 08/05/19 12:00 97.1 58 18 114/54 (74) 99 08/05/19 11:00 57 18 115/50 (71) 98 08/05/19 10:53 59 18 35 08/05/19 10:00 61 16 113/46 (68) 100 08/05/19 09:30 35 08/05/19 09:11 83 135/56 08/05/19 09:00 69 18 135/56 (82) 98 08/05/19 08:30 67 18 35 08/05/19 08:00 Mechanical Ventilator 08/05/19 08:00 45 08/05/19 08:00 73 08/05/19 08:00 97.9 70 18 148/61 (90) 100 08/05/19 07:00 67 19 143/61 (88) 100 08/05/19 07:00 67 19 143/61 (88) 100 08/05/19 06:52 68 18 45 08/05/19 06:30 64 20 08/05/19 06:30 64 20 08/05/19 06:00 66 18 133/84 (100) 100 08/05/19 05:17 61 18 45 08/05/19 05:00 61 18 147/67 (93) 100 08/05/19 04:00 98.5 61 18 147/62 (90) 100 08/05/19 04:00 76 08/05/19 04:00 Mechanical Ventilator 08/05/19 04:00 45 08/05/19 03:26 60 18 45 08/05/19 03:00 60 18 138/58 (84) 100 08/05/19 02:00 62 18 138/65 (89) 100 08/05/19 01:38 62 18 45 08/05/19 01:00 58 18 130/54 (79) 100 08/05/19 00:00 Mechanical Ventilator 08/05/19 00:00 97.9 60 18 133/57 (82) 100 08/05/19 00:00 59 08/05/19 00:00 45 08/04/19 23:49 67 18 45 08/04/19 23:00 63 18 133/56 (81) 100 08/04/19 22:00 68 18 149/59 (89) 100 08/04/19 21:13 59 18 45 08/04/19 21:00 60 18 132/62 (85) 100 08/04/19 21:00 59 132/60 08/04/19 20:00 Mechanical Ventilator 08/04/19 20:00 98.3 63 18 134/60 (84) 100 08/04/19 20:00 62 08/04/19 20:00 45 08/04/19 19:37 61 18 45 08/04/19 19:00 67 18 128/55 (79) 95 Height (Feet): 5 Height (Inches): 6.00 Weight (Pounds): 213 HEENT: mucous membranes moist Respiratory/Chest: no accessory muscle use Cardiovascular: no gallop/murmur Abdomen: no organomegaly Laboratory Tests Test 08/05/19 03:45 08/05/19 08:10 White Blood Count 6.6 K/UL (4.8-10.8) Red Blood Count 3.47 M/UL (4.70-6.10) L Hemoglobin 11.0 G/DL (14.2-18.0) L Hematocrit 32.3 % (42.0-52.0) L Mean Corpuscular Volume 93 FL (80-99) Mean Corpuscular Hemoglobin 31.6 PG (27.0-31.0) H Mean Corpuscular Hemoglobin Concent 34.1 G/DL (32.0-36.0) Red Cell Distribution Width 12.5 % (11.6-14.8) Platelet Count 187 K/UL (150-450) Mean Platelet Volume 6.3 FL (6.5-10.1) L Neutrophils (%) (Auto) 73.6 % (45.0-75.0) Lymphocytes (%) (Auto) 12.1 % (20.0-45.0) L Monocytes (%) (Auto) 8.9 % (1.0-10.0) Eosinophils (%) (Auto) 4.3 % (0.0-3.0) H Basophils (%) (Auto) 1.0 % (0.0-2.0) Sodium Level 146 MMOL/L (136-145) H Potassium Level 3.9 MMOL/L (3.5-5.1) Chloride Level 111 MMOL/L (98-107) H Carbon Dioxide Level 26 MMOL/L (21-32) Anion Gap 9 mmol/L (5-15) Blood Urea Nitrogen 30 mg/dL (7-18) H Creatinine 1.0 MG/DL (0.55-1.30) Estimat Glomerular Filtration Rate > 60 mL/min (>60) Glucose Level 115 MG/DL (74-106) H Calcium Level 8.1 MG/DL (8.5-10.1) L Phosphorus Level 2.7 MG/DL (2.5-4.9) Magnesium Level 2.0 MG/DL (1.8-2.4) Total Bilirubin 0.4 MG/DL (0.2-1.0) Aspartate Amino Transf (AST/SGOT) 28 U/L (15-37) Alanine Aminotransferase (ALT/SGPT) 33 U/L (12-78) Alkaline Phosphatase 62 U/L (46-116) Total Protein 4.8 G/DL (6.4-8.2) L Albumin 1.7 G/DL (3.4-5.0) L Globulin 3.1 g/dL Albumin/Globulin Ratio 0.5 (1.0-2.7) L Arterial Blood pH 7.358 (7.350-7.450) Arterial Blood Partial Pressure CO2 50.9 mmHg (35.0-45.0) H Arterial Blood Partial Pressure O2 254.6 mmHg (75.0-100.0) H Arterial Blood HCO3 28.0 mmol/L (22.0-26.0) H Arterial Blood Oxygen Saturation 99.2 % (95-100) Arterial Blood Base Excess 1.8 (-2-2) Joe Test Positive Current Medications Medications (Trade) Dose Ordered Sig/Amaris Route PRN Reason Start Time Stop Time Status Last Admin Dose Admin Acetaminophen (Tylenol) 650 mg Q4H PRN ORAL Mild Pain/Temp > 100.5 08/01/19 02:00 08/20/19 17:59 08/05/19 17:37 Acetaminophen (Tylenol) 1,000 mg Q6H PRN ORAL Moderate Pain (Pain Scale 4-6) 08/01/19 00:00 08/20/19 17:59 08/03/19 10:34 Amiodarone HCl (Cordarone) 200 mg BID ORAL 08/01/19 09:00 08/27/19 08:59 08/05/19 17:30 Atorvastatin Calcium (Lipitor) 40 mg BEDTIME ORAL 08/01/19 21:00 08/20/19 20:59 08/04/19 20:45 Chlorhexidine Gluconate (Kamila-Hex 2%) 1 applic DAILY@2000 TOPIC 08/01/19 20:00 08/31/19 19:59 08/04/19 19:55 Clopidogrel Bisulfate (Plavix) 75 mg DAILY ORAL 08/01/19 09:00 08/21/19 08:59 08/05/19 09:03 Haloperidol Lactate (Haldol) 5 mg Q6H PRN IM Agitation 07/31/19 23:30 08/28/19 23:29 08/04/19 01:18 Heparin Sodium (Porcine) (Heparin 5000 units/ml) 5,000 units EVERY 12 HOURS SUBQ 08/01/19 09:00 08/20/19 20:59 08/05/19 09:05 Hydralazine HCl (Apresoline) 10 mg Q6H PRN IV For High Blood Pressure 08/01/19 00:15 08/25/19 12:14 Lorazepam (Ativan 2mg/ml 1ml) 1 mg Q6H PRN IV For Anxiety 08/02/19 01:15 08/09/19 01:14 08/05/19 09:04 Methylprednisolone Sodium Succinate (Solu-MEDROL) 30 mg EVERY 8 HOURS IVP 08/05/19 22:00 09/04/19 21:59 Metoprolol Tartrate (Lopressor) 25 mg Q12H ORAL 08/03/19 09:00 09/02/19 08:59 08/05/19 09:11 Norepinephrine Bitartrate 8 mg/ Dextrose 500 ml @ 0 mls/hr Q24H IV 08/01/19 12:00 08/31/19 11:59 08/01/19 12:16 Olanzapine (ZyPREXA) 5 mg BID ORAL 08/01/19 09:00 08/30/19 14:23 08/05/19 17:30 Ondansetron HCl (Zofran) 4 mg Q4H PRN IVP Nausea & Vomiting 08/01/19 02:30 08/21/19 18:29 Pantoprazole (Protonix) 40 mg Q12HR IVP 08/03/19 21:00 08/31/19 08:59 08/05/19 09:02 Piperacillin Sod/ Tazobactam Sod 3.375 gm/Sodium Chloride 110 ml @ 27.5 mls/hr Q8H IVPB 08/01/19 17:00 08/08/19 16:59 08/05/19 17:30 Thiamine HCl (Vitamin B1) 100 mg DAILY ORAL 08/01/19 09:00 08/21/19 08:59 08/05/19 09:04 Vancomycin HCl (Vanco rx to dose) 1 ea DAILY PRN MISC Per rx protocol 08/01/19 15:45 08/31/19 15:44 Vancomycin HCl 750 mg/Sodium Chloride 275 ml @ 183.333 mls/hr Q12H IVPB 08/04/19 09:00 08/09/19 08:59 08/05/19 09:03 Vitamin D (Vitamin D) 5,000 intlu DAILY ORAL 08/01/19 09:00 08/21/19 08:59 08/05/19 09:03 Angel Rudolph MD Aug 05, 2019 18:46
[2019-08-05] MEDS: Dyna-Hex 2% Top Sol 2oz TOPIC SCH (19:52)
[2019-08-05] MEDS: Vancomycin 1gm/D5W 275ml IVPB SCH ×2 (21:16)
[2019-08-05] MEDS: Atorvastatin 20mg tab ORAL SCH (21:16)
[2019-08-05] MEDS: Solu-MEDROL 40mg Inj IVP SCH (22:10)
[2019-08-06] VITALS (24 sets, daily range): BP systolic 117–167; BP diastolic 49–101
[2019-08-06] MEDS: LORazepam Inj 2mg/ml 1ml IV PRN ×3 (00:14→15:15)
[2019-08-06] MEDS: Piperacillin/Tazobactam 3.375 GM in NS 110 ML IVPB SCH ×3 (00:31→17:24)
--- NOTE | 2019-08-06 02:00 | Progress Note ---
DATE: 08/05/2019 SUBJECTIVE: The patient is in ICU. intubator. On soft restraint. Able to understand and follow commands. MENTAL STATUS EXAMINATION: The patient is alert and oriented times self and place. Mood is neutral to anxious. Affect is flat. Thought process, there is a paucity of thought content. Thought content, no suicidal or homicidal ideation. Cognition is impaired. Insight and judgment are impaired. ASSESSMENT: Stable. PLAN: 1. Ativan p.r.n. 2. Olanzapine 5 b.i.d. Duarte Vizcarra M.D. DR: CECE JOB#: [id number] CC: IMANI
[2019-08-06 04:47] LABS: MEAN CORPUSCULAR VOLUME 93 FL (80-99); PLATELET COUNT 207 K/UL (150-450); RED BLOOD COUNT 3.87 M/UL (4.70-6.10); RED CELL DISTRIBUTION WIDTH 12.2 % (11.6-14.8); WHITE BLOOD COUNT 8.4 K/UL (4.8-10.8)
[2019-08-06 05:21] LABS: ALANINE AMINOTRANSFERASE 55 U/L (12-78); ALBUMIN 2.1 G/DL (3.4-5.0); ALBUMIN/GLOBULIN RATIO 0.6 (1.0-2.7); ALKALINE PHOSPHATASE 73 U/L (46-116); ANION GAP 6 mmol/L (5-15); ASPARTATE AMINO TRANSFERASE 37 U/L (15-37); BILIRUBIN,TOTAL 0.4 MG/DL (0.2-1.0); BLOOD UREA NITROGEN 34 mg/dL (7-18); CALCIUM 8.5 MG/DL (8.5-10.1); CARBON DIOXIDE 28 MMOL/L (21-32); CHLORIDE 109 MMOL/L (98-107); PHOSPHORUS 3.3 MG/DL (2.5-4.9); POTASSIUM 4.4 MMOL/L (3.5-5.1); SODIUM 143 MMOL/L (136-145)
--- NOTE | 2019-08-06 05:45 | Progress Note ---
DATE: 08/05/2019 CARDIOLOGY PROGRESS NOTE SUBJECTIVE: The patient is remaining on ventilator support. Weaning efforts are ongoing. Tachypnea has been an issue in the weaning trials. PHYSICAL EXAMINATION: VITAL SIGNS: Blood pressure 111/69, pulse 63, respirations 27, and no fevers. HEENT: Thin trach secretions. LUNGS: Bilateral breath sounds. Scattered rhonchi. No wheezing. CARDIAC: Regular rhythm and rate. Normal S1 and S2. Monitored sinus and paroxysmal atrial fibrillation. ABDOMEN: Soft. EXTREMITIES: No edema. LABORATORY DATA: White count is 6.6 and hemoglobin 11. ABG - 7.36, 51, and 254. Sodium 146, potassium 3.9, bicarb 26, BUN 30, and creatinine 1. Albumin 1.7. Magnesium 2. IMPRESSION: 1. Respiratory failure. 2. Acute on chronic respiratory acidosis. 3. Status post cardiopulmonary arrest. 4. Paroxysmal atrial fibrillation. 5. Status post [id number] myocardial infarction. 6. Recovered severe sepsis with shock. 7. Healthcare-associated pneumonia. 8. Severe protein-calorie malnutrition. 9. Acute on chronic diastolic congestive heart failure. 10. Dehydration. 11. Hypernatremia. PLAN: 1. Weaning efforts. 2. Diuresis. 3. Free water repletion. 4. Antimicrobials. 5. Respiratory hygiene. 6. DVT prophylaxis. Saeed Sim M.D. DR: Omid JOB#: [id number] CC:
[2019-08-06] MEDS: Solu-MEDROL 40mg Inj IVP SCH (05:46)
[2019-08-06] MEDS: Pantoprazole Inj IVP SCH ×2 (08:14→20:25)
[2019-08-06] MEDS: Amiodarone 200mg tab ORAL SCH ×2 (08:15→17:25)
[2019-08-06] MEDS: Vitamin D 1000 IU Tab ORAL SCH (08:15)
[2019-08-06] MEDS: Thiamine 100mg tab ORAL SCH (08:15)
[2019-08-06] MEDS: Heparin 5000 units/ml inj SUBQ SCH ×2 (08:17→20:24)
[2019-08-06] MEDS: Vancomycin 1gm/D5W 275ml IVPB SCH ×4 (08:18→20:25)
--- NOTE | 2019-08-06 10:29 | Pulmonolgy Critical Care Note ---
Critical Care - Asmt/Plan Problems: (1) Cardiopulmonary arrest (2) Nosocomial pneumonia (3) Acute respiratory failure (4) COPD (chronic obstructive pulmonary disease) (5) Atrial fibrillation (6) Dementia with behavioral disturbance (7) CAD (coronary artery disease) Respiratory: monitor respiratory rate, adjust FIO2, CXR Cardiac: continue pressors, continue to monitor HR/BP Renal: F/U I&O, keep IV fluid, check electrolytes Infectious Disease: check cultures, continue antibiotics Gastrointestinal: continue feedings/current rate Endocrine: monitor blood sugar, continue sliding scale insulin Hematologic: monitor H/H, transfuse if hgb<8.5 Neurologic: PRN Ativan, PRN Morphine, keep patient comfortable Affect: PRN ativan Time Spent (Minutes): 40 Notes 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, 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 Discussed with: nurses, consultants, director of caseworkprocess manager - Objective Last 24 Hour Vital Signs Date Time Temp Pulse Resp B/P (MAP) Pulse Ox O2 Delivery O2 Flow Rate FiO2 08/06/19 10:00 64 18 147/61 (89) 99 08/06/19 09:22 61 18 30 08/06/19 09:00 61 19 142/63 (89) 99 08/06/19 08:24 66 133/62 08/06/19 08:00 Mechanical Ventilator 08/06/19 08:00 30 08/06/19 08:00 98.5 64 18 133/62 (85) 98 08/06/19 07:36 66 08/06/19 07:05 66 18 30 08/06/19 07:00 70 18 141/60 (87) 100 08/06/19 06:30 66 18 08/06/19 06:30 66 18 08/06/19 06:00 65 18 151/62 (91) 98 08/06/19 05:10 66 18 30 08/06/19 05:00 71 20 152/67 (95) 95 08/06/19 04:00 62 08/06/19 04:00 98.8 66 15 143/62 (89) 97 08/06/19 04:00 Mechanical Ventilator 08/06/19 04:00 30 08/06/19 03:00 64 18 141/59 (86) 98 08/06/19 02:49 72 19 30 08/06/19 02:00 59 18 132/62 (85) 97 08/06/19 01:05 58 18 30 08/06/19 01:00 60 18 126/58 (80) 97 08/06/19 00:00 99.2 59 18 125/52 (76) 96 08/06/19 00:00 30 08/06/19 00:00 Mechanical Ventilator 08/05/19 23:15 61 19 30 08/05/19 23:00 59 17 124/56 (78) 97 08/05/19 22:00 67 13 136/53 (80) 57 08/05/19 21:23 62 132/58 08/05/19 21:11 62 20 98 Mechanical Ventilator 30 08/05/19 21:11 62 20 30 08/05/19 21:00 61 19 132/58 (82) 92 08/05/19 20:00 Mechanical Ventilator 08/05/19 20:00 30 08/05/19 20:00 59 08/05/19 20:00 99.0 60 18 137/56 (83) 95 08/05/19 19:17 62 18 30 08/05/19 19:00 62 18 124/59 (80) 95 08/05/19 18:17 98.3 08/05/19 18:00 63 18 135/56 (82) 95 08/05/19 17:03 60 18 30 08/05/19 17:00 63 14 111/69 (83) 97 08/05/19 16:00 98.3 61 18 130/58 (82) 97 08/05/19 16:00 68 08/05/19 16:00 Mechanical Ventilator 08/05/19 16:00 30 08/05/19 15:00 59 18 124/64 (84) 10 08/05/19 14:56 60 18 30 08/05/19 14:00 60 17 122/54 (76) 100 08/05/19 13:00 58 17 119/53 (75) 100 08/05/19 12:48 58 18 30 08/05/19 12:00 58 08/05/19 12:00 Mechanical Ventilator 08/05/19 12:00 115/50 08/05/19 12:00 97.1 58 18 114/54 (74) 99 08/05/19 11:00 57 18 115/50 (71) 98 08/05/19 10:53 59 18 35 Status: awake Condition: grave HEENT: atraumatic, normocephalic Neck: full ROM Lungs: clear Heart: HR/BP stable Abdomen: soft, active bowel sounds Extremities: no C/C/E, edema Critical Care - Subjective ROS Limited/Unobtainable: Yes Interval Events: not tolerating weaning Condition: critical EKG Rhythm: Sinus Bradycardia FI02: 30 Vent Support Breath Rate: 18 Vent Support Mode: AC Vent Tidal Volume: 650 Sputum Amount: Moderate PEEP: 5.0 PIP: 38 Tube Feeding Amount: 55 I&O: Intake and Output 08/05/19 08/06/19 18:59 06:59 Intake Total 1122.500 ml 1111.0 ml Output Total 260 ml 390 ml Balance 862.500 ml 721.0 ml Free Water 30 ml IV Total 412.500 ml 476.0 ml Tube Feeding 660 ml 605 ml Other 50 ml Output Urine Total 260 ml 390 ml # Bowel Movements 1 5 ET-Tube: 7.5 ET Position: 23 Labs: Laboratory Tests Test 08/05/19 19:30 08/06/19 04:00 08/06/19 09:31 Vancomycin Level Trough 13.4 ug/mL (5.0-12.0) H White Blood Count 8.4 K/UL (4.8-10.8) Red Blood Count 3.87 M/UL (4.70-6.10) L Hemoglobin 12.0 G/DL (14.2-18.0) L Hematocrit 36.0 % (42.0-52.0) L Mean Corpuscular Volume 93 FL (80-99) Mean Corpuscular Hemoglobin 31.0 PG (27.0-31.0) Mean Corpuscular Hemoglobin Concent 33.3 G/DL (32.0-36.0) Red Cell Distribution Width 12.2 % (11.6-14.8) Platelet Count 207 K/UL (150-450) Mean Platelet Volume 6.8 FL (6.5-10.1) Neutrophils (%) (Auto) % (45.0-75.0) Lymphocytes (%) (Auto) % (20.0-45.0) Monocytes (%) (Auto) % (1.0-10.0) Eosinophils (%) (Auto) % (0.0-3.0) Basophils (%) (Auto) % (0.0-2.0) Sodium Level 143 MMOL/L (136-145) Potassium Level 4.4 MMOL/L (3.5-5.1) Chloride Level 109 MMOL/L (98-107) H Carbon Dioxide Level 28 MMOL/L (21-32) Anion Gap 6 mmol/L (5-15) Blood Urea Nitrogen 34 mg/dL (7-18) H Creatinine 1.0 MG/DL (0.55-1.30) Estimat Glomerular Filtration Rate > 60 mL/min (>60) Glucose Level 164 MG/DL (74-106) H Calcium Level 8.5 MG/DL (8.5-10.1) Phosphorus Level 3.3 MG/DL (2.5-4.9) Magnesium Level 2.1 MG/DL (1.8-2.4) Total Bilirubin 0.4 MG/DL (0.2-1.0) Aspartate Amino Transf (AST/SGOT) 37 U/L (15-37) Alanine Aminotransferase (ALT/SGPT) 55 U/L (12-78) Alkaline Phosphatase 73 U/L (46-116) Total Protein 5.5 G/DL (6.4-8.2) L Albumin 2.1 G/DL (3.4-5.0) L Globulin 3.4 g/dL Albumin/Globulin Ratio 0.6 (1.0-2.7) L Arterial Blood pH 7.501 (7.350-7.450) Arterial Blood Partial Pressure CO2 33.6 mmHg (35.0-45.0) L Arterial Blood Partial Pressure O2 249.1 mmHg (75.0-100.0) H Arterial Blood HCO3 25.7 mmol/L (22.0-26.0) Arterial Blood Oxygen Saturation 99.0 % (95-100) Arterial Blood Base Excess 2.8 (-2-2) H Joe Test Positive Nicole Graves MD Aug 06, 2019 10:29
--- NOTE | 2019-08-06 11:04 | Infectious Diseases Prog Note ---
Assessment/Plan Assessment/Plan ASSESSMENT: The patient is a 79-year-old male with: Leukocytosis;SP Status post sepsis Pneumonia ( probable asp) - CXR: 1. Streaky opacities in the right lower lung may represent atelectasis versus scarring. Left basilar opacity may represent atelectasis. Component of pneumonia is not excluded. Pulmonary vasculature congestion. -08/01 ucx NTD sp cx: nl anastacio Urinary tract infection, SP Rx Afebrile. Ro bacteremia 07/31 Sp Code blue and intubation Hyperlipidemia. COPD. History of GERD. History of encephalopathy. History of CAD/DC. History of cardiomyopathy. 7. Hypertension. PLAN: continue the patient on Zosyn and IV Vanco # 6/7 -08/01 SP Rocephin day # 10 - 07/31 sp sp Dox # 6 Monitor CBC. Monitor BMP. Monitor chest x-ray f/u Cx ( B, ) Rsp Support . Subjective Allergies: Coded Allergies: No Known Allergies (Unverified , 06/03/17) Subjective on vent no acute event Objective Vital Signs Last 24 Hour Vital Signs Date Time Temp Pulse Resp B/P (MAP) Pulse Ox O2 Delivery O2 Flow Rate FiO2 08/06/19 10:00 64 18 147/61 (89) 99 08/06/19 09:22 61 18 30 08/06/19 09:00 61 19 142/63 (89) 99 08/06/19 08:24 66 133/62 08/06/19 08:00 Mechanical Ventilator 08/06/19 08:00 30 08/06/19 08:00 98.5 64 18 133/62 (85) 98 08/06/19 07:36 66 08/06/19 07:05 66 18 30 08/06/19 07:00 70 18 141/60 (87) 100 08/06/19 06:30 66 18 08/06/19 06:30 66 18 08/06/19 06:00 65 18 151/62 (91) 98 08/06/19 05:10 66 18 30 08/06/19 05:00 71 20 152/67 (95) 95 08/06/19 04:00 62 08/06/19 04:00 98.8 66 15 143/62 (89) 97 08/06/19 04:00 Mechanical Ventilator 08/06/19 04:00 30 08/06/19 03:00 64 18 141/59 (86) 98 08/06/19 02:49 72 19 30 08/06/19 02:00 59 18 132/62 (85) 97 08/06/19 01:05 58 18 30 08/06/19 01:00 60 18 126/58 (80) 97 08/06/19 00:00 99.2 59 18 125/52 (76) 96 08/06/19 00:00 30 08/06/19 00:00 Mechanical Ventilator 08/05/19 23:15 61 19 30 08/05/19 23:00 59 17 124/56 (78) 97 08/05/19 22:00 67 13 136/53 (80) 57 08/05/19 21:23 62 132/58 08/05/19 21:11 62 20 98 Mechanical Ventilator 30 08/05/19 21:11 62 20 30 08/05/19 21:00 61 19 132/58 (82) 92 08/05/19 20:00 Mechanical Ventilator 08/05/19 20:00 30 08/05/19 20:00 59 08/05/19 20:00 99.0 60 18 137/56 (83) 95 08/05/19 19:17 62 18 30 08/05/19 19:00 62 18 124/59 (80) 95 08/05/19 18:17 98.3 08/05/19 18:00 63 18 135/56 (82) 95 08/05/19 17:03 60 18 30 08/05/19 17:00 63 14 111/69 (83) 97 08/05/19 16:00 98.3 61 18 130/58 (82) 97 08/05/19 16:00 68 08/05/19 16:00 Mechanical Ventilator 08/05/19 16:00 30 08/05/19 15:00 59 18 124/64 (84) 10 08/05/19 14:56 60 18 30 08/05/19 14:00 60 17 122/54 (76) 100 08/05/19 13:00 58 17 119/53 (75) 100 08/05/19 12:48 58 18 30 08/05/19 12:00 58 08/05/19 12:00 Mechanical Ventilator 08/05/19 12:00 115/50 08/05/19 12:00 97.1 58 18 114/54 (74) 99 Height (Feet): 5 Height (Inches): 6.00 Weight (Pounds): 218 Respiratory/Chest: no accessory muscle use Cardiovascular: regularly irregular Abdomen: no organomegaly Extremities: no cyanosis Laboratory Tests Test 08/05/19 19:30 08/06/19 04:00 08/06/19 09:31 Vancomycin Level Trough 13.4 ug/mL (5.0-12.0) H White Blood Count 8.4 K/UL (4.8-10.8) Red Blood Count 3.87 M/UL (4.70-6.10) L Hemoglobin 12.0 G/DL (14.2-18.0) L Hematocrit 36.0 % (42.0-52.0) L Mean Corpuscular Volume 93 FL (80-99) Mean Corpuscular Hemoglobin 31.0 PG (27.0-31.0) Mean Corpuscular Hemoglobin Concent 33.3 G/DL (32.0-36.0) Red Cell Distribution Width 12.2 % (11.6-14.8) Platelet Count 207 K/UL (150-450) Mean Platelet Volume 6.8 FL (6.5-10.1) Neutrophils (%) (Auto) % (45.0-75.0) Lymphocytes (%) (Auto) % (20.0-45.0) Monocytes (%) (Auto) % (1.0-10.0) Eosinophils (%) (Auto) % (0.0-3.0) Basophils (%) (Auto) % (0.0-2.0) Sodium Level 143 MMOL/L (136-145) Potassium Level 4.4 MMOL/L (3.5-5.1) Chloride Level 109 MMOL/L (98-107) H Carbon Dioxide Level 28 MMOL/L (21-32) Anion Gap 6 mmol/L (5-15) Blood Urea Nitrogen 34 mg/dL (7-18) H Creatinine 1.0 MG/DL (0.55-1.30) Estimat Glomerular Filtration Rate > 60 mL/min (>60) Glucose Level 164 MG/DL (74-106) H Calcium Level 8.5 MG/DL (8.5-10.1) Phosphorus Level 3.3 MG/DL (2.5-4.9) Magnesium Level 2.1 MG/DL (1.8-2.4) Total Bilirubin 0.4 MG/DL (0.2-1.0) Aspartate Amino Transf (AST/SGOT) 37 U/L (15-37) Alanine Aminotransferase (ALT/SGPT) 55 U/L (12-78) Alkaline Phosphatase 73 U/L (46-116) Total Protein 5.5 G/DL (6.4-8.2) L Albumin 2.1 G/DL (3.4-5.0) L Globulin 3.4 g/dL Albumin/Globulin Ratio 0.6 (1.0-2.7) L Arterial Blood pH 7.501 (7.350-7.450) Arterial Blood Partial Pressure CO2 33.6 mmHg (35.0-45.0) L Arterial Blood Partial Pressure O2 249.1 mmHg (75.0-100.0) H Arterial Blood HCO3 25.7 mmol/L (22.0-26.0) Arterial Blood Oxygen Saturation 99.0 % (95-100) Arterial Blood Base Excess 2.8 (-2-2) H Joe Test Positive Current Medications Medications (Trade) Dose Ordered Sig/Amaris Route PRN Reason Start Time Stop Time Status Last Admin Dose Admin Acetaminophen (Tylenol) 650 mg Q4H PRN ORAL Mild Pain/Temp > 100.5 08/01/19 02:00 08/20/19 17:59 08/05/19 17:37 Acetaminophen (Tylenol) 1,000 mg Q6H PRN ORAL Moderate Pain (Pain Scale 4-6) 08/01/19 00:00 08/20/19 17:59 08/03/19 10:34 Amiodarone HCl (Cordarone) 200 mg BID ORAL 08/01/19 09:00 08/27/19 08:59 08/06/19 08:15 Atorvastatin Calcium (Lipitor) 40 mg BEDTIME ORAL 08/01/19 21:00 08/20/19 20:59 08/05/19 21:16 Chlorhexidine Gluconate (Kamila-Hex 2%) 1 applic DAILY@1999 TOPIC 08/01/19 20:00 08/31/19 19:59 08/05/19 19:52 Clopidogrel Bisulfate (Plavix) 75 mg DAILY ORAL 08/01/19 09:00 08/21/19 08:59 08/06/19 08:15 Haloperidol Lactate (Haldol) 5 mg Q6H PRN IM Agitation 07/31/19 23:30 08/28/19 23:29 08/04/19 01:18 Heparin Sodium (Porcine) (Heparin 5000 units/ml) 5,000 units EVERY 12 HOURS SUBQ 08/01/19 09:00 08/20/19 20:59 08/06/19 08:17 Hydralazine HCl (Apresoline) 10 mg Q6H PRN IV For High Blood Pressure 08/01/19 00:15 08/25/19 12:14 Lorazepam (Ativan 2mg/ml 1ml) 1 mg Q6H PRN IV For Anxiety 08/02/19 01:15 08/09/19 01:14 08/06/19 08:14 Methylprednisolone Sodium Succinate (Solu-MEDROL) 20 mg DAILY IVP 08/07/19 09:00 09/04/19 21:59 Metoprolol Tartrate (Lopressor) 25 mg Q12H ORAL 08/03/19 09:00 09/02/19 08:59 08/06/19 08:24 Olanzapine (ZyPREXA) 5 mg BID ORAL 08/01/19 09:00 08/30/19 14:23 08/06/19 08:15 Ondansetron HCl (Zofran) 4 mg Q4H PRN IVP Nausea & Vomiting 08/01/19 02:30 08/21/19 18:29 Pantoprazole (Protonix) 40 mg Q12HR IVP 08/03/19 21:00 08/31/19 08:59 08/06/19 08:14 Piperacillin Sod/ Tazobactam Sod 3.375 gm/Sodium Chloride 110 ml @ 27.5 mls/hr Q8H IVPB 08/01/19 17:00 08/08/19 16:59 08/06/19 08:17 Thiamine HCl (Vitamin B1) 100 mg DAILY ORAL 08/01/19 09:00 08/21/19 08:59 08/06/19 08:15 Vancomycin HCl (Vanco rx to dose) 1 ea DAILY PRN MISC Per rx protocol 08/01/19 15:45 08/31/19 15:44 Vancomycin HCl 1 gm/Dextrose 275 ml @ 183.708 mls/hr Q12H IVPB 08/05/19 21:00 08/10/19 20:59 08/06/19 08:18 Vitamin D (Vitamin D) 5,000 intlu DAILY ORAL 08/01/19 09:00 08/21/19 08:59 08/06/19 08:15 Angel Rudolph MD Aug 06, 2019 11:04
--- NOTE | 2019-08-06 14:58 | Nephrology Progress Note ---
Assessment/Plan Problem List: (1) AUREA (acute kidney injury) (2) Cardiopulmonary arrest (3) Respiratory failure (4) Cardiomyopathy (5) Obesity (BMI 30.0-34.9) (6) DMII (diabetes mellitus, type 2) Assessment Acute Renal Failure : AUREA Most likely due to cardiorespiratory arrest and episode of hypotension. Patient also has cardiomyopathy with Ej Fx of 40 % on admission Obese : BMI 34.4 ? DM Other Dx (1) Cardiopulmonary arrest (2) Nosocomial pneumonia (3) Acute respiratory failure (4) COPD (chronic obstructive pulmonary disease) (5) Atrial fibrillation (6) Dementia with behavioral disturbance (7) CAD (coronary artery disease) Plan Stable from Renal stand now- Monitor renal parameters. Serum creatinine improved Monitor urine output. Urine output improved. Avoid nephrotoxics. Weaning as possible. Remains intubated at this time. Correct electrolyte imbalances. Change tube feeding to Glucerna. Subjective ROS Limited/Unobtainable: Yes Objective Objective Last 24 Hour Vital Signs Date Time Temp Pulse Resp B/P (MAP) Pulse Ox O2 Delivery O2 Flow Rate FiO2 08/06/19 14:00 71 18 117/52 (73) 98 08/06/19 13:02 71 18 30 08/06/19 13:00 74 19 146/64 (91) 92 08/06/19 12:00 30 08/06/19 12:00 98.7 66 18 167/66 (99) 100 08/06/19 12:00 Mechanical Ventilator 08/06/19 11:45 66 08/06/19 11:07 60 18 30 08/06/19 11:00 61 18 132/57 (82) 100 08/06/19 10:00 64 18 147/61 (89) 99 08/06/19 09:22 61 18 30 08/06/19 09:00 61 19 142/63 (89) 99 08/06/19 08:24 66 133/62 08/06/19 08:00 Mechanical Ventilator 08/06/19 08:00 30 08/06/19 08:00 98.5 64 18 133/62 (85) 98 08/06/19 07:36 66 08/06/19 07:05 66 18 30 08/06/19 07:00 70 18 141/60 (87) 100 08/06/19 06:30 66 18 08/06/19 06:30 66 18 08/06/19 06:00 65 18 151/62 (91) 98 08/06/19 05:10 66 18 30 08/06/19 05:00 71 20 152/67 (95) 95 08/06/19 04:00 62 08/06/19 04:00 98.8 66 15 143/62 (89) 97 08/06/19 04:00 Mechanical Ventilator 08/06/19 04:00 30 08/06/19 03:00 64 18 141/59 (86) 98 08/06/19 02:49 72 19 30 08/06/19 02:00 59 18 132/62 (85) 97 08/06/19 01:05 58 18 30 08/06/19 01:00 60 18 126/58 (80) 97 08/06/19 00:00 99.2 59 18 125/52 (76) 96 08/06/19 00:00 30 08/06/19 00:00 Mechanical Ventilator 08/05/19 23:15 61 19 30 08/05/19 23:00 59 17 124/56 (78) 97 08/05/19 22:00 67 13 136/53 (80) 57 08/05/19 21:23 62 132/58 08/05/19 21:11 62 20 98 Mechanical Ventilator 30 08/05/19 21:11 62 20 30 08/05/19 21:00 61 19 132/58 (82) 92 08/05/19 20:00 Mechanical Ventilator 08/05/19 20:00 30 08/05/19 20:00 59 08/05/19 20:00 99.0 60 18 137/56 (83) 95 08/05/19 19:17 62 18 30 08/05/19 19:00 62 18 124/59 (80) 95 08/05/19 18:17 98.3 08/05/19 18:00 63 18 135/56 (82) 95 08/05/19 17:03 60 18 30 08/05/19 17:00 63 14 111/69 (83) 97 08/05/19 16:00 98.3 61 18 130/58 (82) 97 08/05/19 16:00 68 08/05/19 16:00 Mechanical Ventilator 08/05/19 16:00 30 08/05/19 15:00 59 18 124/64 (84) 10 Intake and Output 08/05/19 08/06/19 19:00 07:00 Intake Total 1067.500 ml 1166.0 ml Output Total 230 ml 430 ml Balance 837.500 ml 736.0 ml Free Water 30 ml IV Total 412.500 ml 476.0 ml Tube Feeding 605 ml 660 ml Other 50 ml Output Urine Total 230 ml 430 ml # Bowel Movements 1 5 Current Medications Medications (Trade) Dose Ordered Sig/Amaris Route PRN Reason Start Time Stop Time Status Last Admin Dose Admin Acetaminophen (Tylenol) 650 mg Q4H PRN ORAL Mild Pain/Temp > 100.5 08/01/19 02:00 08/20/19 17:59 08/05/19 17:37 Acetaminophen (Tylenol) 1,000 mg Q6H PRN ORAL Moderate Pain (Pain Scale 4-6) 08/01/19 00:00 08/20/19 17:59 08/03/19 10:34 Amiodarone HCl (Cordarone) 200 mg BID ORAL 08/01/19 09:00 08/27/19 08:59 08/06/19 08:15 Atorvastatin Calcium (Lipitor) 40 mg BEDTIME ORAL 08/01/19 21:00 08/20/19 20:59 08/05/19 21:16 Chlorhexidine Gluconate (Kamila-Hex 2%) 1 applic DAILY@1999 TOPIC 08/01/19 20:00 08/31/19 19:59 08/05/19 19:52 Clopidogrel Bisulfate (Plavix) 75 mg DAILY ORAL 08/01/19 09:00 08/21/19 08:59 08/06/19 08:15 Haloperidol Lactate (Haldol) 5 mg Q6H PRN IM Agitation 07/31/19 23:30 08/28/19 23:29 08/04/19 01:18 Heparin Sodium (Porcine) (Heparin 5000 units/ml) 5,000 units EVERY 12 HOURS SUBQ 08/01/19 09:00 08/20/19 20:59 08/06/19 08:17 Hydralazine HCl (Apresoline) 10 mg Q6H PRN IV For High Blood Pressure 08/01/19 00:15 08/25/19 12:14 Lorazepam (Ativan 2mg/ml 1ml) 1 mg Q6H PRN IV For Anxiety 08/02/19 01:15 08/09/19 01:14 08/06/19 08:14 Methylprednisolone Sodium Succinate (Solu-MEDROL) 20 mg DAILY IVP 08/07/19 09:00 09/04/19 21:59 Metoprolol Tartrate (Lopressor) 25 mg Q12H ORAL 08/03/19 09:00 09/02/19 08:59 08/06/19 08:24 Olanzapine (ZyPREXA) 5 mg BID ORAL 08/01/19 09:00 08/30/19 14:23 08/06/19 08:15 Ondansetron HCl (Zofran) 4 mg Q4H PRN IVP Nausea & Vomiting 08/01/19 02:30 08/21/19 18:29 Pantoprazole (Protonix) 40 mg Q12HR IVP 08/03/19 21:00 08/31/19 08:59 08/06/19 08:14 Piperacillin Sod/ Tazobactam Sod 3.375 gm/Sodium Chloride 110 ml @ 27.5 mls/hr Q8H IVPB 08/01/19 17:00 08/08/19 16:59 08/06/19 08:17 Thiamine HCl (Vitamin B1) 100 mg DAILY ORAL 08/01/19 09:00 08/21/19 08:59 08/06/19 08:15 Vancomycin HCl (Vanco rx to dose) 1 ea DAILY PRN MISC Per rx protocol 08/01/19 15:45 08/31/19 15:44 Vancomycin HCl 1 gm/Dextrose 275 ml @ 183.708 mls/hr Q12H IVPB 08/05/19 21:00 08/10/19 20:59 08/06/19 08:18 Vitamin D (Vitamin D) 5,000 intlu DAILY ORAL 08/01/19 09:00 08/21/19 08:59 08/06/19 08:15 Laboratory Tests 08/05/19 19:30: Vancomycin Level Trough 13.4H 08/06/19 04:00: White Blood Count 8.4, Red Blood Count 3.87L, Hemoglobin 12.0L, Hematocrit 36.0L , Mean Corpuscular Volume 93, Mean Corpuscular Hemoglobin 31.0, Mean Corpuscular Hemoglobin Concent 33.3, Red Cell Distribution Width 12.2, Platelet Count 207, Mean Platelet Volume 6.8, Neutrophils (%) (Auto) , Lymphocytes (%) ( Auto) , Monocytes (%) (Auto) , Eosinophils (%) (Auto) , Basophils (%) (Auto) , Sodium Level 143, Potassium Level 4.4, Chloride Level 109H, Carbon Dioxide Level 28, Anion Gap 6, Blood Urea Nitrogen 34H, Creatinine 1.0, Estimat Glomerular Filtration Rate > 60, Glucose Level 164H, Calcium Level 8.5, Phosphorus Level 3.3, Magnesium Level 2.1, Total Bilirubin 0.4, Aspartate Amino Transf (AST/SGOT) 37, Alanine Aminotransferase (ALT/SGPT) 55, Alkaline Phosphatase 73, Total Protein 5.5L, Albumin 2.1L, Globulin 3.4, Albumin/ Globulin Ratio 0.6L 08/06/19 09:31: Arterial Blood pH 7.501H, Arterial Blood Partial Pressure CO2 33.6L, Arterial Blood Partial Pressure O2 249.1H, Arterial Blood HCO3 25.7, Arterial Blood Oxygen Saturation 99.0, Arterial Blood Base Excess 2.8H, Joe Test Positive Height (Feet): 5 Height (Inches): 6.00 Weight (Pounds): 218 General Appearance: no apparent distress EENT: other - vented Cardiovascular: normal rate Respiratory/Chest: decreased breath sounds Abdomen: distended Objective no change Yunior Sexton MD Aug 06, 2019 14:57
[2019-08-06] MEDS: Haloperidol 5mg/ml Inj IM PRN (15:32)
--- NOTE | 2019-08-06 16:35 | Diagnostic Imaging Report ---
Indication: Dyspnea Comparison: 08/05/2019 A single view chest radiograph was obtained. Findings: Pulmonary vascular congestion again demonstrated. Tubes and lines are satisfactory. Cardiomegaly is again noted. IMPRESSION: No change from the prior day
[2019-08-06] MEDS: Atorvastatin 20mg tab ORAL SCH (20:26)
[2019-08-07] VITALS (24 sets, daily range): BP systolic 109–151; BP diastolic 44–94
[2019-08-07] MEDS: Piperacillin/Tazobactam 3.375 GM in NS 110 ML IVPB SCH ×3 (01:03→18:24)
--- NOTE | 2019-08-07 02:15 | Progress Note ---
DATE: 08/06/2019 INCOMPLETE DICTATION CARDIOLOGY PROGRESS NOTE SUBJECTIVE: The patient remains on ventilator support. Weaning efforts in progress. Thin secretions. Tolerating feedings by G-tube. OBJECTIVE: VITAL SIGNS: Blood pressure 147/61, pulse 64, respiratory rate 18, and afebrile. HEENT: Oral endotracheal tube. LUNGS: Bilateral rhonchi. HEART: Regular rhythm and rate. Normal S1, S2. There is a fourth heart sound. ABDOMEN: Soft. EXTREMITIES: Trace edema. LABORATORY DATA: Urine culture with gram-positive cocci. White count 8.4 and hemoglobin 12. Sodium 143, potassium 4.4, bicarb 28, BUN 34, and creatinine 1. Albumin 2.1. ABG, pH 7.50, pCO2 34, and pO2 249. IMPRESSION: 1. Respiratory failure. 2. Status post cardiopulmonary arrest. 3. Paroxysmal atrial fibrillation. 4. Respiratory alkalosis. 5. Resolving hypoxia. 6. Healthcare-associated aspiration pneumonia. 7. Severe protein-calorie malnutrition. 8. Status post non ST-elevation myocardial infarction. 9. Sepsis with recovered shock. PLAN: . Saeed Sim M.D. DR: YESENIA JOB#: [id number] CC:
--- NOTE | 2019-08-07 02:45 | Progress Note ---
DATE: 08/06/2019 SUBJECTIVE: The patient is awake, alert, afebrile, and hemodynamically stable. However, his respiratory rate is persistently between 25 to 30. PHYSICAL EXAMINATION: VITAL SIGNS: Blood pressure 118/67, pulse is 61, respirations now 27, and temperature 98.4. HEENT: Eyes were normal. ENT, mucous membranes were moist and intact. NECK: Supple with no JVD without lymph nodes. LUNGS: Clear. HEART: Normal sounds with regular beats. There is no tachycardia at rest. ABDOMEN: Soft, obese, and nontender with normal bowel sounds. EXTREMITIES: Warm without cyanosis, clubbing, or edema. LABORATORY AND DIAGNOSTIC DATA: Hemoglobin is 12.0, hematocrit 36.0 with MCV of 93, WBC of 8.4, and platelets of 207,000. His BUN and creatinine are 34 and 1.0 respectively. His sodium is 143, potassium 4.4, chloride 109, CO2 is 28. His phosphorus is 3.3 and magnesium is 2.1. His SGOT, SGPT, and alkaline phosphatase are normal. His albumin is 2.1. Total protein is 5.5. His chest x-ray done today showed no change from previous study. It showed pulmonary vascular congestion with no infiltrate. IMPRESSION: The patient was weaned today from the respirator, but could tolerate it only for a few minutes before we had to be contacted again. The patient did not have any effect. Repeat laboratory tests and ABG will be done in a.m. Modesta Mulligan M.D. DR: Malathi JOB#: [id number] CC:
[2019-08-07] MEDS ORDERED: Solu-MEDROL 40mg Inj IVP SCH (09:00)
[2019-08-07] MEDS: Vancomycin 1gm/D5W 275ml IVPB SCH ×6 (09:00→21:06)
[2019-08-07 09:21] LABS: BASOPHILS % (AUTO) 0.5 % (0.0-2.0); EOSINOPHILS % (AUTO) 1.6 % (0.0-3.0); HEMATOCRIT 34.4 % (42.0-52.0); HEMOGLOBIN 11.6 G/DL (14.2-18.0); LYMPHOCYTES % (AUTO) 12.5 % (20.0-45.0); MEAN CORPUSCULAR VOLUME 93 FL (80-99); NEUTROPHILS % (AUTO) 78.4 % (45.0-75.0); PLATELET COUNT 234 K/UL (150-450); RED CELL DISTRIBUTION WIDTH 12.4 % (11.6-14.8); WHITE BLOOD COUNT 9.1 K/UL (4.8-10.8)
[2019-08-07] MEDS: Thiamine 100mg tab ORAL SCH (09:28)
[2019-08-07] MEDS: Amiodarone 200mg tab ORAL SCH (09:28)
[2019-08-07] MEDS: Vitamin D 1000 IU Tab ORAL SCH (09:28)
[2019-08-07] MEDS: Pantoprazole Inj IVP SCH ×2 (09:29→20:50)
--- NOTE | 2019-08-07 09:30 | Progress Note ---
DATE: 08/04/2019 SUBJECTIVE: The patient is awake alert, afebrile, and hemodynamically stable. Easily irritable. This morning, the patient was extubated. The patient was disconnected from the ventilator only few minutes, but the patient began severe tachypnea and shortness of breath and had to be reconnected through the respirator. PHYSICAL EXAMINATION: VITAL SIGNS: Blood pressure 133/57, his pulse is 60, respirations are 18, temperature is 97.9. HEENT: Eyes are normal. ENT, mucous membranes were moist and intact. NECK: Supple with no JVD without lymph nodes. LUNGS: Clear. HEART: Normal sounds with irregular beats. There is no tachycardia at rest. ABDOMEN: Soft, obese, and nontender with normal bowel sounds. Gastrostomy site is clean. EXTREMITIES: Warm without cyanosis, clubbing or edema. LABORATORY AND DIAGNOSTIC DATA: Hemoglobin is 11.2, hematocrit 33.7, MCV of 93, WBC of 8.5 and platelets 196,000. His BUN and creatinine are 72 and 1.1 respectively. His sodium is 144, potassium 4.1, chloride 108, CO2 is 30. HbA1c is 6.4. His uric acid is 2.2, phosphorus is 3.7, and magnesium is 2.0. SGOT and SGPT are normal. Total CK is 135, CRP is 6, and proBNP is 2500. Urine culture grew gram-negative cocci with the count of less than 10,000 colony-forming unit. No imaging study is available at the time of this dictation. Repeat laboratory tests will be done in the a.m. Modesta Mulligan M.D. DR: Malathi JOB#: [id number] CC:
[2019-08-07] MEDS: Heparin 5000 units/ml inj SUBQ SCH ×2 (09:36→20:51)
[2019-08-07 09:42] LABS: ALANINE AMINOTRANSFERASE 80 U/L (12-78); ALBUMIN 1.9 G/DL (3.4-5.0); ALBUMIN/GLOBULIN RATIO 0.6 (1.0-2.7); ALKALINE PHOSPHATASE 67 U/L (46-116); ANION GAP 7 mmol/L (5-15); ASPARTATE AMINO TRANSFERASE 60 U/L (15-37); BILIRUBIN,TOTAL 0.3 MG/DL (0.2-1.0); BLOOD UREA NITROGEN 37 mg/dL (7-18); CALCIUM 8.6 MG/DL (8.5-10.1); CARBON DIOXIDE 26 MMOL/L (21-32); CHLORIDE 111 MMOL/L (98-107); CREATININE 1.1 MG/DL (0.55-1.30); POTASSIUM 4.1 MMOL/L (3.5-5.1); SODIUM 144 MMOL/L (136-145)
--- NOTE | 2019-08-07 10:33 | Diagnostic Imaging Report ---
Indication: Dyspnea Comparison: 08/06/2019 A single view chest radiograph was obtained. Findings: Endotracheal tube and nasogastric tubes are in good position unchanged. The heart is borderline enlarged. Mild pulmonary vascular congestion is present. IMPRESSION: No change from the prior day
--- NOTE | 2019-08-07 11:27 | Pulmonolgy Critical Care Note ---
Critical Care - Asmt/Plan Problems: (1) Cardiopulmonary arrest (2) Nosocomial pneumonia (3) Acute respiratory failure (4) COPD (chronic obstructive pulmonary disease) (5) Atrial fibrillation (6) Dementia with behavioral disturbance (7) CAD (coronary artery disease) Respiratory: monitor respiratory rate, adjust FIO2, CXR Cardiac: continue pressors, continue to monitor HR/BP Renal: F/U I&O, check electrolytes Infectious Disease: check cultures Gastrointestinal: continue feedings/current rate Endocrine: monitor blood sugar Hematologic: transfuse if hgb<8.5 Neurologic: PRN Ativan, keep patient comfortable Prophylaxis: Protonix, Heparin Notes Reviewed: cardio, renal Discussed with: consultants, housing case managerwater resource manager - Objective Last 24 Hour Vital Signs Date Time Temp Pulse Resp B/P (MAP) Pulse Ox O2 Delivery O2 Flow Rate FiO2 08/07/19 10:56 60 18 30 08/07/19 10:00 97.8 58 18 137/61 (86) 100 08/07/19 09:53 55 18 95 Mechanical Ventilator 30 08/07/19 09:19 55 18 30 08/07/19 09:00 54 08/07/19 09:00 56 18 134/63 (86) 93 08/07/19 08:00 58 08/07/19 08:00 56 18 128/53 (78) 90 08/07/19 07:05 58 18 30 08/07/19 07:00 58 18 121/50 (73) 86 08/07/19 06:30 58 27 08/07/19 06:30 58 27 08/07/19 06:00 66 18 134/60 (84) 97 08/07/19 05:28 68 18 30 08/07/19 05:00 66 20 142/59 (86) 08/07/19 04:00 30 08/07/19 04:00 Mechanical Ventilator 08/07/19 04:00 98.0 67 18 148/63 (91) 97 08/07/19 03:06 66 18 30 08/07/19 03:03 55 08/07/19 03:00 57 15 111/44 (66) 08/07/19 02:00 61 17 115/59 (77) 98 08/07/19 01:30 64 18 30 08/07/19 01:00 56 17 130/65 (86) 99 08/07/19 00:00 Mechanical Ventilator 08/07/19 00:00 30 08/07/19 00:00 97.7 59 10 126/56 (79) 100 08/06/19 23:30 60 18 30 08/06/19 23:28 55 08/06/19 23:00 60 18 118/67 (84) 08/06/19 22:00 61 18 129/58 (81) 95 08/06/19 21:00 65 19 150/60 (90) 93 08/06/19 21:00 60 18 30 08/06/19 20:12 56 08/06/19 20:11 56 122/49 08/06/19 20:00 Mechanical Ventilator 08/06/19 20:00 30 08/06/19 20:00 98.4 57 18 122/49 (73) 99 08/06/19 19:25 59 18 30 08/06/19 19:00 56 18 128/58 (81) 99 08/06/19 18:00 58 18 129/49 (75) 97 08/06/19 17:02 59 18 30 08/06/19 17:00 60 18 132/52 (78) 100 08/06/19 16:00 Mechanical Ventilator 08/06/19 16:00 30 08/06/19 16:00 98.7 64 20 135/57 (83) 99 08/06/19 15:55 62 08/06/19 15:22 67 18 30 08/06/19 15:00 72 17 157/101 (119) 100 08/06/19 14:00 71 18 117/52 (73) 98 08/06/19 13:02 71 18 30 08/06/19 13:00 74 19 146/64 (91) 92 08/06/19 12:00 30 08/06/19 12:00 98.7 66 18 167/66 (99) 100 08/06/19 12:00 Mechanical Ventilator 08/06/19 11:45 66 Status: awake Condition: grave HEENT: atraumatic Lungs: rales, rhonchi Heart: HR/BP stable Abdomen: soft, active bowel sounds Extremities: no C/C/E Critical Care - Subjective ROS Limited/Unobtainable: Yes Condition: critical EKG Rhythm: Sinus Rhythm FI02: 30 Vent Support Breath Rate: 18 Vent Support Mode: AC Vent Tidal Volume: 650 Sputum Amount: Moderate PEEP: 5.0 PIP: 40 Tube Feeding Amount: 55 I&O: Intake and Output 08/06/19 08/07/19 19:00 07:00 Intake Total 1190.00 ml 1105.000 ml Output Total 490 ml 345 ml Balance 700.00 ml 760.000 ml IV Total 385.00 ml 385.000 ml Tube Feeding 605 ml 660 ml Other 200 ml 60 ml Output Urine Total 490 ml 345 ml # Bowel Movements 2 2 CXR: ET in good position, mild congestion ET-Tube: 7.5 ET Position: 20 Labs: Laboratory Tests Test 08/07/19 08:55 08/07/19 09:22 White Blood Count 9.1 K/UL (4.8-10.8) Red Blood Count 3.70 M/UL (4.70-6.10) L Hemoglobin 11.6 G/DL (14.2-18.0) L Hematocrit 34.4 % (42.0-52.0) L Mean Corpuscular Volume 93 FL (80-99) Mean Corpuscular Hemoglobin 31.4 PG (27.0-31.0) H Mean Corpuscular Hemoglobin Concent 33.8 G/DL (32.0-36.0) Red Cell Distribution Width 12.4 % (11.6-14.8) Platelet Count 234 K/UL (150-450) Mean Platelet Volume 6.5 FL (6.5-10.1) Neutrophils (%) (Auto) 78.4 % (45.0-75.0) H Lymphocytes (%) (Auto) 12.5 % (20.0-45.0) L Monocytes (%) (Auto) 7.0 % (1.0-10.0) Eosinophils (%) (Auto) 1.6 % (0.0-3.0) Basophils (%) (Auto) 0.5 % (0.0-2.0) Sodium Level 144 MMOL/L (136-145) Potassium Level 4.1 MMOL/L (3.5-5.1) Chloride Level 111 MMOL/L (98-107) H Carbon Dioxide Level 26 MMOL/L (21-32) Anion Gap 7 mmol/L (5-15) Blood Urea Nitrogen 37 mg/dL (7-18) H Creatinine 1.1 MG/DL (0.55-1.30) Estimat Glomerular Filtration Rate > 60 mL/min (>60) Glucose Level 121 MG/DL (74-106) H Calcium Level 8.6 MG/DL (8.5-10.1) Total Bilirubin 0.3 MG/DL (0.2-1.0) Aspartate Amino Transf (AST/SGOT) 60 U/L (15-37) H Alanine Aminotransferase (ALT/SGPT) 80 U/L (12-78) H Alkaline Phosphatase 67 U/L (46-116) Total Protein 4.9 G/DL (6.4-8.2) L Albumin 1.9 G/DL (3.4-5.0) L Globulin 3.0 g/dL Albumin/Globulin Ratio 0.6 (1.0-2.7) L Vancomycin Level Trough 18.1 ug/mL (5.0-12.0) H Arterial Blood pH 7.474 (7.350-7.450) Arterial Blood Partial Pressure CO2 33.5 mmHg (35.0-45.0) L Arterial Blood Partial Pressure O2 106.8 mmHg (75.0-100.0) H Arterial Blood HCO3 24.1 mmol/L (22.0-26.0) Arterial Blood Oxygen Saturation 97.5 % (95-100) Arterial Blood Base Excess 0.9 (-2-2) Joe Test Positive Nicole Graves MD Aug 07, 2019 11:27
[2019-08-07] MEDS ORDERED: Haloperidol 5mg/ml Inj IVPB PRN (11:30)
[2019-08-07] MEDS ORDERED: Haloperidol Lactate 5 MG in D5W 55 ML IVPB PRN (12:07)
--- NOTE | 2019-08-07 12:58 | Nephrology Progress Note ---
Assessment/Plan Problem List: (1) AUREA (acute kidney injury) (2) Cardiopulmonary arrest (3) Respiratory failure (4) Cardiomyopathy (5) Obesity (BMI 30.0-34.9) (6) DMII (diabetes mellitus, type 2) Assessment Acute Renal Failure : AUREA Most likely due to cardiorespiratory arrest and episode of hypotension. Patient also has cardiomyopathy with Ej Fx of 40 % on admission Obese : BMI 34.4 ? DM Other Dx (1) Cardiopulmonary arrest (2) Nosocomial pneumonia (3) Acute respiratory failure (4) COPD (chronic obstructive pulmonary disease) (5) Atrial fibrillation (6) Dementia with behavioral disturbance (7) CAD (coronary artery disease) Plan Stable from Renal stand now- Monitor renal parameters. Serum creatinine improved Monitor urine output. Urine output improved. Avoid nephrotoxics. Weaning as possible. Remains intubated at this time. Correct electrolyte imbalances. Change tube feeding to Glucerna. Subjective ROS Limited/Unobtainable: Yes Objective Objective Last 24 Hour Vital Signs Date Time Temp Pulse Resp B/P (MAP) Pulse Ox O2 Delivery O2 Flow Rate FiO2 08/07/19 12:00 61 18 145/62 (89) 95 08/07/19 12:00 30 08/07/19 12:00 Mechanical Ventilator 08/07/19 12:00 63 08/07/19 11:00 62 18 141/63 (89) 93 08/07/19 10:56 60 18 30 08/07/19 10:00 97.8 58 18 137/61 (86) 100 08/07/19 09:53 55 18 95 Mechanical Ventilator 30 08/07/19 09:19 55 18 30 08/07/19 09:00 54 08/07/19 09:00 56 18 134/63 (86) 93 08/07/19 08:00 58 08/07/19 08:00 Mechanical Ventilator 08/07/19 08:00 56 18 128/53 (78) 90 08/07/19 08:00 30 08/07/19 07:05 58 18 30 08/07/19 07:00 58 18 121/50 (73) 86 08/07/19 06:30 58 27 08/07/19 06:30 58 27 08/07/19 06:00 66 18 134/60 (84) 97 08/07/19 05:28 68 18 30 08/07/19 05:00 66 20 142/59 (86) 08/07/19 04:00 30 08/07/19 04:00 Mechanical Ventilator 08/07/19 04:00 98.0 67 18 148/63 (91) 97 08/07/19 03:06 66 18 30 08/07/19 03:03 55 08/07/19 03:00 57 15 111/44 (66) 08/07/19 02:00 61 17 115/59 (77) 98 08/07/19 01:30 64 18 30 08/07/19 01:00 56 17 130/65 (86) 99 08/07/19 00:00 Mechanical Ventilator 08/07/19 00:00 30 08/07/19 00:00 97.7 59 10 126/56 (79) 100 08/06/19 23:30 60 18 30 08/06/19 23:28 55 08/06/19 23:00 60 18 118/67 (84) 08/06/19 22:00 61 18 129/58 (81) 95 08/06/19 21:00 65 19 150/60 (90) 93 08/06/19 21:00 60 18 30 08/06/19 20:12 56 08/06/19 20:11 56 122/49 08/06/19 20:00 Mechanical Ventilator 08/06/19 20:00 30 08/06/19 20:00 98.4 57 18 122/49 (73) 99 08/06/19 19:25 59 18 30 08/06/19 19:00 56 18 128/58 (81) 99 08/06/19 18:00 58 18 129/49 (75) 97 08/06/19 17:02 59 18 30 08/06/19 17:00 60 18 132/52 (78) 100 08/06/19 16:00 Mechanical Ventilator 08/06/19 16:00 30 08/06/19 16:00 98.7 64 20 135/57 (83) 99 08/06/19 15:55 62 08/06/19 15:22 67 18 30 08/06/19 15:00 72 17 157/101 (119) 100 08/06/19 14:00 71 18 117/52 (73) 98 08/06/19 13:02 71 18 30 08/06/19 13:00 74 19 146/64 (91) 92 Intake and Output 08/06/19 08/07/19 19:00 07:00 Intake Total 1190.00 ml 1105.000 ml Output Total 490 ml 345 ml Balance 700.00 ml 760.000 ml IV Total 385.00 ml 385.000 ml Tube Feeding 605 ml 660 ml Other 200 ml 60 ml Output Urine Total 490 ml 345 ml # Bowel Movements 2 2 Current Medications Medications (Trade) Dose Ordered Sig/Amaris Route PRN Reason Start Time Stop Time Status Last Admin Dose Admin Acetaminophen (Tylenol) 650 mg Q4H PRN ORAL Mild Pain/Temp > 100.5 08/01/19 02:00 08/20/19 17:59 08/05/19 17:37 Acetaminophen (Tylenol) 1,000 mg Q6H PRN ORAL Moderate Pain (Pain Scale 4-6) 08/01/19 00:00 08/20/19 17:59 08/03/19 10:34 Amiodarone HCl (Cordarone) 200 mg BID ORAL 08/01/19 09:00 08/27/19 08:59 08/07/19 09:28 Atorvastatin Calcium (Lipitor) 40 mg BEDTIME ORAL 08/01/19 21:00 08/20/19 20:59 08/06/19 20:26 Clopidogrel Bisulfate (Plavix) 75 mg DAILY ORAL 08/01/19 09:00 08/21/19 08:59 08/07/19 09:28 Haloperidol Lactate 5 mg/ Dextrose 56 ml @ 224 mls/hr Q2H PRN IVPB AGITATION 08/07/19 12:07 08/09/19 23:59 Heparin Sodium (Porcine) (Heparin 5000 units/ml) 5,000 units EVERY 12 HOURS SUBQ 08/01/19 09:00 08/20/19 20:59 08/07/19 09:36 Hydralazine HCl (Apresoline) 10 mg Q6H PRN IV For High Blood Pressure 08/01/19 00:15 08/25/19 12:14 Lorazepam (Ativan 2mg/ml 1ml) 0.5 mg Q2H PRN IV For Anxiety 08/07/19 11:30 08/14/19 11:29 Metoprolol Tartrate (Lopressor) 25 mg Q12H ORAL 08/03/19 09:00 09/02/19 08:59 08/06/19 08:24 Olanzapine (ZyPREXA) 5 mg BID ORAL 08/01/19 09:00 08/30/19 14:23 08/07/19 09:27 Ondansetron HCl (Zofran) 4 mg Q4H PRN IVP Nausea & Vomiting 08/01/19 02:30 08/21/19 18:29 Pantoprazole (Protonix) 40 mg Q12HR IVP 08/03/19 21:00 08/31/19 08:59 08/07/19 09:29 Piperacillin Sod/ Tazobactam Sod 3.375 gm/Sodium Chloride 110 ml @ 27.5 mls/hr Q8H IVPB 08/01/19 17:00 08/08/19 16:59 08/07/19 09:27 Thiamine HCl (Vitamin B1) 100 mg DAILY ORAL 08/01/19 09:00 08/21/19 08:59 08/07/19 09:28 Vancomycin HCl (Vanco rx to dose) 1 ea DAILY PRN MISC Per rx protocol 08/01/19 15:45 08/31/19 15:44 Vancomycin HCl 1 gm/Dextrose 275 ml @ 183.708 mls/hr Q12H IVPB 08/05/19 21:00 08/10/19 20:59 08/06/19 20:25 Vitamin D (Vitamin D) 5,000 intlu DAILY ORAL 08/01/19 09:00 08/21/19 08:59 08/07/19 09:28 Laboratory Tests 08/07/19 08:55: White Blood Count 9.1, Red Blood Count 3.70L, Hemoglobin 11.6L, Hematocrit 34.4L , Mean Corpuscular Volume 93, Mean Corpuscular Hemoglobin 31.4H, Mean Corpuscular Hemoglobin Concent 33.8, Red Cell Distribution Width 12.4, Platelet Count 234, Mean Platelet Volume 6.5, Neutrophils (%) (Auto) 78.4H, Lymphocytes ( %) (Auto) 12.5L, Monocytes (%) (Auto) 7.0, Eosinophils (%) (Auto) 1.6, Basophils (%) (Auto) 0.5, Sodium Level 144, Potassium Level 4.1, Chloride Level 111H, Carbon Dioxide Level 26, Anion Gap 7, Blood Urea Nitrogen 37H, Creatinine 1.1, Estimat Glomerular Filtration Rate > 60, Glucose Level 121H, Calcium Level 8.6, Total Bilirubin 0.3, Aspartate Amino Transf (AST/SGOT) 60H, Alanine Aminotransferase (ALT/SGPT) 80H, Alkaline Phosphatase 67, Total Protein 4.9L, Albumin 1.9L, Globulin 3.0, Albumin/Globulin Ratio 0.6L, Vancomycin Level Trough 18.1H 08/07/19 09:22: Arterial Blood pH 7.474H, Arterial Blood Partial Pressure CO2 33.5L, Arterial Blood Partial Pressure O2 106.8H, Arterial Blood HCO3 24.1, Arterial Blood Oxygen Saturation 97.5, Arterial Blood Base Excess 0.9, Joe Test Positive Height (Feet): 5 Height (Inches): 6.00 Weight (Pounds): 216 General Appearance: no apparent distress Objective no change Yunior Sexton MD Aug 07, 2019 12:58
--- NOTE | 2019-08-07 18:59 | Infectious Diseases Prog Note ---
Assessment/Plan Assessment/Plan ASSESSMENT: The patient is a 79-year-old male with: Leukocytosis;SP Status post sepsis Pneumonia ( probable asp) - CXR: 1. Streaky opacities in the right lower lung may represent atelectasis versus scarring. Left basilar opacity may represent atelectasis. Component of pneumonia is not excluded. Pulmonary vasculature congestion. -08/01 ucx NTD sp cx: nl anastacio Urinary tract infection, SP Rx Afebrile. Ro bacteremia 07/31 Sp Code blue and intubation Hyperlipidemia. COPD. History of GERD. History of encephalopathy. History of CAD/ME. History of cardiomyopathy. 7. Hypertension. PLAN: continue the patient on Zosyn and IV Vanco # 12/08 , will DC AB rx in AM -08/01 SP Rocephin day # 10 - 07/31 sp sp Dox # 6 Monitor CBC. Monitor BMP. Monitor chest x-ray f/u Cx (B) Rsp Support . Subjective Allergies: Coded Allergies: No Known Allergies (Unverified , 06/03/17) Subjective on vent t Objective Vital Signs Last 24 Hour Vital Signs Date Time Temp Pulse Resp B/P (MAP) Pulse Ox O2 Delivery O2 Flow Rate FiO2 08/07/19 18:06 53 18 122/56 (78) 100 08/07/19 17:00 67 18 145/79 (101) 100 08/07/19 16:54 56 18 30 08/07/19 16:00 97.8 61 17 132/57 (82) 100 08/07/19 16:00 30 08/07/19 16:00 58 08/07/19 16:00 Mechanical Ventilator 08/07/19 15:01 72 18 30 08/07/19 15:00 74 19 109/94 (99) 100 08/07/19 14:00 60 18 135/58 (83) 99 08/07/19 13:17 56 18 30 08/07/19 13:00 55 18 129/59 (82) 99 08/07/19 12:00 61 18 145/62 (89) 95 08/07/19 12:00 30 08/07/19 12:00 Mechanical Ventilator 08/07/19 12:00 63 08/07/19 11:00 62 18 141/63 (89) 93 08/07/19 10:56 60 18 30 08/07/19 10:00 97.8 58 18 137/61 (86) 100 08/07/19 09:53 55 18 95 Mechanical Ventilator 30 08/07/19 09:19 55 18 30 08/07/19 09:00 54 08/07/19 09:00 56 18 134/63 (86) 93 08/07/19 08:00 58 08/07/19 08:00 Mechanical Ventilator 08/07/19 08:00 56 18 128/53 (78) 90 08/07/19 08:00 30 08/07/19 07:05 58 18 30 08/07/19 07:00 58 18 121/50 (73) 86 08/07/19 06:30 58 27 08/07/19 06:30 58 27 08/07/19 06:00 66 18 134/60 (84) 97 08/07/19 05:28 68 18 30 08/07/19 05:00 66 20 142/59 (86) 08/07/19 04:00 30 08/07/19 04:00 Mechanical Ventilator 08/07/19 04:00 98.0 67 18 148/63 (91) 97 08/07/19 03:06 66 18 30 08/07/19 03:03 55 08/07/19 03:00 57 15 111/44 (66) 08/07/19 02:00 61 17 115/59 (77) 98 08/07/19 01:30 64 18 30 08/07/19 01:00 56 17 130/65 (86) 99 08/07/19 00:00 Mechanical Ventilator 08/07/19 00:00 30 08/07/19 00:00 97.7 59 10 126/56 (79) 100 08/06/19 23:30 60 18 30 08/06/19 23:28 55 08/06/19 23:00 60 18 118/67 (84) 08/06/19 22:00 61 18 129/58 (81) 95 08/06/19 21:00 65 19 150/60 (90) 93 08/06/19 21:00 60 18 30 08/06/19 20:12 56 08/06/19 20:11 56 122/49 08/06/19 20:00 Mechanical Ventilator 08/06/19 20:00 30 08/06/19 20:00 98.4 57 18 122/49 (73) 99 08/06/19 19:25 59 18 30 08/06/19 19:00 56 18 128/58 (81) 99 Height (Feet): 5 Height (Inches): 6.00 Weight (Pounds): 216 HEENT: anicteric Respiratory/Chest: normal breath sounds Cardiovascular: regularly irregular Abdomen: non distended Laboratory Tests Test 08/07/19 08:55 08/07/19 09:22 White Blood Count 9.1 K/UL (4.8-10.8) Red Blood Count 3.70 M/UL (4.70-6.10) L Hemoglobin 11.6 G/DL (14.2-18.0) L Hematocrit 34.4 % (42.0-52.0) L Mean Corpuscular Volume 93 FL (80-99) Mean Corpuscular Hemoglobin 31.4 PG (27.0-31.0) H Mean Corpuscular Hemoglobin Concent 33.8 G/DL (32.0-36.0) Red Cell Distribution Width 12.4 % (11.6-14.8) Platelet Count 234 K/UL (150-450) Mean Platelet Volume 6.5 FL (6.5-10.1) Neutrophils (%) (Auto) 78.4 % (45.0-75.0) H Lymphocytes (%) (Auto) 12.5 % (20.0-45.0) L Monocytes (%) (Auto) 7.0 % (1.0-10.0) Eosinophils (%) (Auto) 1.6 % (0.0-3.0) Basophils (%) (Auto) 0.5 % (0.0-2.0) Sodium Level 144 MMOL/L (136-145) Potassium Level 4.1 MMOL/L (3.5-5.1) Chloride Level 111 MMOL/L (98-107) H Carbon Dioxide Level 26 MMOL/L (21-32) Anion Gap 7 mmol/L (5-15) Blood Urea Nitrogen 37 mg/dL (7-18) H Creatinine 1.1 MG/DL (0.55-1.30) Estimat Glomerular Filtration Rate > 60 mL/min (>60) Glucose Level 121 MG/DL (74-106) H Calcium Level 8.6 MG/DL (8.5-10.1) Total Bilirubin 0.3 MG/DL (0.2-1.0) Aspartate Amino Transf (AST/SGOT) 60 U/L (15-37) H Alanine Aminotransferase (ALT/SGPT) 80 U/L (12-78) H Alkaline Phosphatase 67 U/L (46-116) Total Protein 4.9 G/DL (6.4-8.2) L Albumin 1.9 G/DL (3.4-5.0) L Globulin 3.0 g/dL Albumin/Globulin Ratio 0.6 (1.0-2.7) L Vancomycin Level Trough 18.1 ug/mL (5.0-12.0) H Arterial Blood pH 7.474 (7.350-7.450) Arterial Blood Partial Pressure CO2 33.5 mmHg (35.0-45.0) L Arterial Blood Partial Pressure O2 106.8 mmHg (75.0-100.0) H Arterial Blood HCO3 24.1 mmol/L (22.0-26.0) Arterial Blood Oxygen Saturation 97.5 % (95-100) Arterial Blood Base Excess 0.9 (-2-2) Joe Test Positive Current Medications Medications (Trade) Dose Ordered Sig/Amaris Route PRN Reason Start Time Stop Time Status Last Admin Dose Admin Acetaminophen (Tylenol) 650 mg Q4H PRN ORAL Mild Pain/Temp > 100.5 08/01/19 02:00 08/20/19 17:59 08/05/19 17:37 Acetaminophen (Tylenol) 1,000 mg Q6H PRN ORAL Moderate Pain (Pain Scale 4-6) 08/01/19 00:00 08/20/19 17:59 08/03/19 10:34 Amiodarone HCl (Cordarone) 200 mg DAILY ORAL 08/08/19 09:00 09/07/19 08:59 Atorvastatin Calcium (Lipitor) 40 mg BEDTIME ORAL 08/01/19 21:00 08/20/19 20:59 08/06/19 20:26 Clopidogrel Bisulfate (Plavix) 75 mg DAILY ORAL 08/01/19 09:00 08/21/19 08:59 08/07/19 09:28 Haloperidol Lactate 5 mg/ Dextrose 56 ml @ 224 mls/hr Q2H PRN IVPB AGITATION 08/07/19 12:07 08/09/19 23:59 Heparin Sodium (Porcine) (Heparin 5000 units/ml) 5,000 units EVERY 12 HOURS SUBQ 08/01/19 09:00 08/20/19 20:59 08/07/19 09:36 Hydralazine HCl (Apresoline) 10 mg Q6H PRN IV For High Blood Pressure 08/01/19 00:15 08/25/19 12:14 Lorazepam (Ativan 2mg/ml 1ml) 0.5 mg Q2H PRN IV For Anxiety 08/07/19 11:30 08/14/19 11:29 Metoprolol Tartrate (Lopressor) 12.5 mg Q12H ORAL 08/07/19 21:00 09/06/19 20:59 Olanzapine (ZyPREXA) 5 mg BID ORAL 08/01/19 09:00 08/30/19 14:23 08/07/19 18:28 Ondansetron HCl (Zofran) 4 mg Q4H PRN IVP Nausea & Vomiting 08/01/19 02:30 08/21/19 18:29 Pantoprazole (Protonix) 40 mg Q12HR IVP 08/03/19 21:00 08/31/19 08:59 08/07/19 09:29 Piperacillin Sod/ Tazobactam Sod 3.375 gm/Sodium Chloride 110 ml @ 27.5 mls/hr Q8H IVPB 08/01/19 17:00 08/08/19 16:59 08/07/19 18:24 Thiamine HCl (Vitamin B1) 100 mg DAILY ORAL 08/01/19 09:00 08/21/19 08:59 08/07/19 09:28 Vancomycin HCl (Vanco rx to dose) 1 ea DAILY PRN MISC Per rx protocol 08/01/19 15:45 08/31/19 15:44 Vancomycin HCl 1 gm/Dextrose 275 ml @ 183.708 mls/hr Q12H IVPB 08/05/19 21:00 08/10/19 20:59 08/07/19 14:33 Vitamin D (Vitamin D) 5,000 intlu DAILY ORAL 08/01/19 09:00 08/21/19 08:59 08/07/19 09:28 Angel Rudolph MD Aug 07, 2019 18:59
[2019-08-07] MEDS: Atorvastatin 20mg tab ORAL SCH (20:50)
[2019-08-07] MEDS: Metoprolol Tartrate 12.5mg TAB ORAL SCH (21:00)
--- NOTE | 2019-08-07 21:09 | Diagnostic Imaging Report ---
Indication: Post intubation Technique: One view of the chest Comparison: 11 hours earlier Findings: There is an endotracheal tube in place, tip of which projects approximately 4 cm above the maya, in good position. There is a nasogastric tube in place, tip projected beyond the edge of the image and probably in the gastric antrum. There is increasing atelectasis and possibly patchy consolidation at the right lung base. The heart is enlarged. Impression: Satisfactory endotracheal and nasogastric tube positions. Developing right basilar infiltrate This agrees with the preliminary interpretation provided overnight by [facility] teleradiology service.
[2019-08-08] VITALS (24 sets, daily range): BP systolic 112–150; BP diastolic 54–75
--- NOTE | 2019-08-08 00:15 | Progress Note ---
DATE: 08/07/2019 CARDIOLOGY PROGRESS NOTE SUBJECTIVE: The patient remains on ventilator support. Weaning efforts in progress. Monitored rhythm, sinus and sinus bradycardia. OBJECTIVE: VITAL SIGNS: Blood pressure 145/62, heart rate 61, and respiratory rate 18. NECK: Thin trach secretions. LUNGS: Bilateral rhonchi. CARDIAC: Regular rhythm and rate. Normal S1, paradoxically split S2. ABDOMEN: Soft. EXTREMITIES: Trace edema. LABORATORY DATA: White count 9.1, hemoglobin 11.6. Sodium 144, potassium 4.1, bicarb 26, BUN 37, and creatinine 1.1. Albumin 1.9. IMPRESSION: 1. Status post full arrest. 2. Acute on chronic diastolic and systolic congestive heart failure. 3. Respiratory failure. 4. Chronic obstructive pulmonary disease. 5. Healthcare-acquired pneumonia. 6. Severe protein-calorie malnutrition. 7. Paroxysmal atrial fibrillation. 8. Conduction system disease with bundle-branch block. PLAN: 1. Decrease beta-todd dose. 2. Maintenance dose amiodarone now at 200 mg daily. 3. No plans for anticoagulation due to bleeding risk. 4. Weaning efforts. 5. Nutrition by feeding tube. 6. Diuresis based on clinical parameters. Saeed Sim M.D. DR: RAUL JOB#: [id number] CC:
[2019-08-08] MEDS: Piperacillin/Tazobactam 3.375 GM in NS 110 ML IVPB SCH ×2 (00:55→10:00)
--- NOTE | 2019-08-08 02:45 | Progress Note ---
DATE: 08/07/2019 SUBJECTIVE: The patient is awake, alert, afebrile, hemodynamically stable with eye contact and attempt to talk. PHYSICAL EXAMINATION: VITAL SIGNS: Blood pressure 122/58, his pulse is 63, respirations are 18, and temperature is 97.8. HEENT: Eyes were normal. ENT, mucous membranes were moist and intact. NECK: Supple with no JVD without lymph nodes. LUNGS: Clear. HEART: Normal sounds with regular beats. There is bradycardia at rest. ABDOMEN: Soft, nontender, with normal bowel sounds. EXTREMITIES: Warm without cyanosis, clubbing, or edema. LABORATORY AND DIAGNOSTIC DATA: Hemoglobin is 11.6, hematocrit 34.4 with MCV of 93, WBC of 9.1, and platelets are 234. His BUN and creatinine are 37 and 1.1 respectively. Sodium is 144, potassium 4.1, chloride 111, CO2 was 26. His calcium is 8.6. SGOT and SGPT are 60 and 60. Albumin is 1.9 and total protein is 4.9. ABG today, pH was 7.47, pCO2 was 33, pO2 was 106, bicarb was 24, and O2 saturation was 97. In spite of the appropriate ABG attempted to wean the patient today again and the patient became rapidly short of breath and somnolent. Ativan that was given every two hours to the patient is now spaced to every 4 hours. Chest x-ray today revealed no change from previous x-rays, which is mild pulmonary vascular congestion. IMPRESSION: The patient has now achieved arterial blood gasses, but still unable to tolerate weaning. I will discuss with the dermatological surgeon of possibility to increase the tidal volume from 660 to 700 and the patient to maintain machine free. Repeat laboratory tests will be done in the morning. Modesta Mulligan M.D. DR: SOFIA JOB#: [id number] CC:
[2019-08-08 05:32] LABS: BASOPHILS % (AUTO) 0.3 % (0.0-2.0); EOSINOPHILS % (AUTO) 0.4 % (0.0-3.0); HEMATOCRIT 32.2 % (42.0-52.0); HEMOGLOBIN 11.1 G/DL (14.2-18.0); LYMPHOCYTES % (AUTO) 9.9 % (20.0-45.0); MEAN CORPUSCULAR VOLUME 92 FL (80-99); MONOCYTES % (AUTO) 5.9 % (1.0-10.0); NEUTROPHILS % (AUTO) 83.4 % (45.0-75.0); PLATELET COUNT 259 K/UL (150-450); RED BLOOD COUNT 3.49 M/UL (4.70-6.10); RED CELL DISTRIBUTION WIDTH 12.5 % (11.6-14.8); WHITE BLOOD COUNT 8.8 K/UL (4.8-10.8)
[2019-08-08 05:54] LABS: ALANINE AMINOTRANSFERASE 102 U/L (12-78); ALBUMIN 1.9 G/DL (3.4-5.0); ALBUMIN/GLOBULIN RATIO 0.6 (1.0-2.7); ALKALINE PHOSPHATASE 67 U/L (46-116); ANION GAP 11 mmol/L (5-15); ASPARTATE AMINO TRANSFERASE 52 U/L (15-37); BILIRUBIN,TOTAL 0.4 MG/DL (0.2-1.0); BLOOD UREA NITROGEN 40 mg/dL (7-18); CALCIUM 8.1 MG/DL (8.5-10.1); CARBON DIOXIDE 25 MMOL/L (21-32); CHLORIDE 109 MMOL/L (98-107); CREATININE 1.1 MG/DL (0.55-1.30); POTASSIUM 3.9 MMOL/L (3.5-5.1); SODIUM 145 MMOL/L (136-145)
--- NOTE | 2019-08-08 08:47 | Nephrology Progress Note ---
Assessment/Plan Problem List: (1) AUREA (acute kidney injury) (2) Cardiopulmonary arrest (3) Respiratory failure (4) Cardiomyopathy (5) Obesity (BMI 30.0-34.9) (6) DMII (diabetes mellitus, type 2) Assessment Acute Renal Failure : AUREA Most likely due to cardiorespiratory arrest and episode of hypotension. Patient also has cardiomyopathy with Ej Fx of 40 % on admission Obese : BMI 34.4 ? DM Other Dx (1) Cardiopulmonary arrest (2) Nosocomial pneumonia (3) Acute respiratory failure (4) COPD (chronic obstructive pulmonary disease) (5) Atrial fibrillation (6) Dementia with behavioral disturbance (7) CAD (coronary artery disease) Plan Stable from Renal stand now- Aim to wean from ventilator Monitor renal parameters. Serum creatinine improved Monitor urine output. Urine output improved. Avoid nephrotoxics. Weaning as possible. Remains intubated at this time. Correct electrolyte imbalances. Change tube feeding to Glucerna. Subjective ROS Limited/Unobtainable: Yes Interval Events/Complaints Remains intubated on ventilator Objective Objective Last 24 Hour Vital Signs Date Time Temp Pulse Resp B/P (MAP) Pulse Ox O2 Delivery O2 Flow Rate FiO2 08/08/19 08:00 30 08/08/19 08:00 98.3 57 18 127/55 (79) 95 08/08/19 07:02 60 18 30 08/08/19 07:00 57 18 135/66 (89) 98 08/08/19 06:30 62 18 08/08/19 06:30 62 18 08/08/19 06:00 63 18 136/57 (83) 98 08/08/19 05:00 65 16 137/58 (84) 99 08/08/19 04:59 64 18 30 08/08/19 04:00 97.9 62 18 135/67 (89) 98 08/08/19 04:00 30 08/08/19 04:00 Mechanical Ventilator 08/08/19 03:03 64 18 30 08/08/19 03:00 61 18 134/60 (84) 98 08/08/19 02:00 61 18 143/56 (85) 99 08/08/19 01:05 63 18 30 08/08/19 01:00 62 18 141/56 (84) 99 08/08/19 00:00 30 08/08/19 00:00 98.3 63 18 140/59 (86) 99 08/08/19 00:00 Mechanical Ventilator 08/08/19 00:00 58 08/07/19 23:00 56 18 30 08/07/19 23:00 56 18 125/55 (78) 97 08/07/19 22:00 63 19 151/65 (93) 96 08/07/19 21:00 57 18 30 08/07/19 21:00 58 143/59 08/07/19 21:00 58 18 143/59 (87) 100 08/07/19 20:00 97.9 67 17 151/63 (92) 100 08/07/19 20:00 61 08/07/19 20:00 30 08/07/19 20:00 Mechanical Ventilator 08/07/19 19:04 60 18 30 08/07/19 19:00 59 18 131/82 (98) 100 08/07/19 18:06 53 18 122/56 (78) 100 08/07/19 17:00 67 18 145/79 (101) 100 08/07/19 16:54 56 18 30 08/07/19 16:00 97.8 61 17 132/57 (82) 100 08/07/19 16:00 30 08/07/19 16:00 58 08/07/19 16:00 Mechanical Ventilator 08/07/19 15:01 72 18 30 08/07/19 15:00 74 19 109/94 (99) 100 08/07/19 14:00 60 18 135/58 (83) 99 08/07/19 13:17 56 18 30 08/07/19 13:00 55 18 129/59 (82) 99 08/07/19 12:00 61 18 145/62 (89) 95 08/07/19 12:00 30 08/07/19 12:00 Mechanical Ventilator 08/07/19 12:00 63 08/07/19 11:00 62 18 141/63 (89) 93 08/07/19 10:56 60 18 30 08/07/19 10:00 97.8 58 18 137/61 (86) 100 08/07/19 09:53 55 18 95 Mechanical Ventilator 30 08/07/19 09:19 55 18 30 08/07/19 09:00 54 08/07/19 09:00 56 18 134/63 (86) 93 Intake and Output 08/07/19 08/08/19 19:00 07:00 Intake Total 1167.416 ml 1247.416 ml Output Total 355 ml 1250 ml Balance 812.416 ml -2.584 ml IV Total 477.416 ml 587.416 ml Tube Feeding 660 ml 660 ml Other 30 ml Output Urine Total 355 ml 1250 ml # Bowel Movements 4 4 Laboratory Tests 08/07/19 08:55: White Blood Count 9.1, Red Blood Count 3.70L, Hemoglobin 11.6L, Hematocrit 34.4L , Mean Corpuscular Volume 93, Mean Corpuscular Hemoglobin 31.4H, Mean Corpuscular Hemoglobin Concent 33.8, Red Cell Distribution Width 12.4, Platelet Count 234, Mean Platelet Volume 6.5, Neutrophils (%) (Auto) 78.4H, Lymphocytes ( %) (Auto) 12.5L, Monocytes (%) (Auto) 7.0, Eosinophils (%) (Auto) 1.6, Basophils (%) (Auto) 0.5, Sodium Level 144, Potassium Level 4.1, Chloride Level 111H, Carbon Dioxide Level 26, Anion Gap 7, Blood Urea Nitrogen 37H, Creatinine 1.1, Estimat Glomerular Filtration Rate > 60, Glucose Level 121H, Calcium Level 8.6, Total Bilirubin 0.3, Aspartate Amino Transf (AST/SGOT) 60H, Alanine Aminotransferase (ALT/SGPT) 80H, Alkaline Phosphatase 67, Total Protein 4.9L, Albumin 1.9L, Globulin 3.0, Albumin/Globulin Ratio 0.6L, Vancomycin Level Trough 18.1H 08/07/19 09:22: Arterial Blood pH 7.474H, Arterial Blood Partial Pressure CO2 33.5L, Arterial Blood Partial Pressure O2 106.8H, Arterial Blood HCO3 24.1, Arterial Blood Oxygen Saturation 97.5, Arterial Blood Base Excess 0.9, Joe Test Positive 08/08/19 03:35: White Blood Count 8.8, Red Blood Count 3.49L, Hemoglobin 11.1L, Hematocrit 32.2L , Mean Corpuscular Volume 92, Mean Corpuscular Hemoglobin 31.7H, Mean Corpuscular Hemoglobin Concent 34.3, Red Cell Distribution Width 12.5, Platelet Count 259, Mean Platelet Volume 6.1L, Neutrophils (%) (Auto) 83.4H, Lymphocytes (%) (Auto) 9.9L, Monocytes (%) (Auto) 5.9, Eosinophils (%) (Auto) 0.4, Basophils (%) (Auto) 0.3, Sodium Level 145, Potassium Level 3.9, Chloride Level 109H, Carbon Dioxide Level 25, Anion Gap 11, Blood Urea Nitrogen 40H, Creatinine 1.1, Estimat Glomerular Filtration Rate > 60, Glucose Level 127H, Calcium Level 8.1L, Total Bilirubin 0.4, Aspartate Amino Transf (AST/SGOT) 52H, Alanine Aminotransferase (ALT/SGPT) 102H, Alkaline Phosphatase 67, Total Protein 4.9L, Albumin 1.9L, Globulin 3.0, Albumin/Globulin Ratio 0.6L, Pro-B- Type Natriuretic Peptide 4313H Height (Feet): 5 Height (Inches): 6.00 Weight (Pounds): 218 General Appearance: no apparent distress EENT: other - Vented Cardiovascular: normal rate Respiratory/Chest: decreased breath sounds Abdomen: distended Objective no change Yunior Sexton MD Aug 08, 2019 08:47
[2019-08-08] MEDS: Metoprolol Tartrate 12.5mg TAB ORAL SCH ×2 (09:00→21:05)
[2019-08-08] MEDS: Pantoprazole Inj IVP SCH ×2 (09:46→20:30)
[2019-08-08] MEDS: Vitamin D 1000 IU Tab ORAL SCH (09:46)
[2019-08-08] MEDS: Amiodarone 200mg tab ORAL SCH (09:47)
[2019-08-08] MEDS: Thiamine 100mg tab ORAL SCH (09:47)
[2019-08-08] MEDS: Heparin 5000 units/ml inj SUBQ SCH ×2 (09:59→20:31)
[2019-08-08] MEDS: Vancomycin 1gm/D5W 275ml IVPB SCH ×2 (10:00)
--- NOTE | 2019-08-08 10:23 | Pulmonolgy Critical Care Note ---
Critical Care - Asmt/Plan Problems: (1) Cardiopulmonary arrest (2) Nosocomial pneumonia (3) Acute respiratory failure (4) COPD (chronic obstructive pulmonary disease) (5) Atrial fibrillation (6) Dementia with behavioral disturbance (7) CAD (coronary artery disease) Respiratory: monitor respiratory rate, adjust FIO2, CXR Cardiac: continue pressors, continue to monitor HR/BP Renal: F/U I&O, keep IV fluid Infectious Disease: check cultures Gastrointestinal: continue feedings/current rate Endocrine: monitor blood sugar, check TSH Affect: PRN ativan Prophylaxis: Protonix, Heparin Notes Reviewed: reconciliation clerk, 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, consultants, field nurse case managerassistant manager bilingual - Objective Last 24 Hour Vital Signs Date Time Temp Pulse Resp B/P (MAP) Pulse Ox O2 Delivery O2 Flow Rate FiO2 08/08/19 09:00 58 08/08/19 08:47 63 18 30 30 08/08/19 08:46 100 08/08/19 08:00 Mechanical Ventilator 08/08/19 08:00 30 08/08/19 08:00 98.3 57 18 127/55 (79) 95 08/08/19 07:02 60 18 30 08/08/19 07:00 57 18 135/66 (89) 98 08/08/19 06:30 62 18 08/08/19 06:30 62 18 08/08/19 06:00 63 18 136/57 (83) 98 08/08/19 05:00 65 16 137/58 (84) 99 08/08/19 04:59 64 18 30 08/08/19 04:00 97.9 62 18 135/67 (89) 98 08/08/19 04:00 30 08/08/19 04:00 Mechanical Ventilator 08/08/19 03:03 64 18 30 08/08/19 03:00 61 18 134/60 (84) 98 08/08/19 02:00 61 18 143/56 (85) 99 08/08/19 01:05 63 18 30 08/08/19 01:00 62 18 141/56 (84) 99 08/08/19 00:00 30 08/08/19 00:00 98.3 63 18 140/59 (86) 99 08/08/19 00:00 Mechanical Ventilator 08/08/19 00:00 58 08/07/19 23:00 56 18 30 08/07/19 23:00 56 18 125/55 (78) 97 08/07/19 22:00 63 19 151/65 (93) 96 08/07/19 21:00 57 18 30 08/07/19 21:00 58 143/59 08/07/19 21:00 58 18 143/59 (87) 100 08/07/19 20:00 97.9 67 17 151/63 (92) 100 08/07/19 20:00 61 08/07/19 20:00 30 08/07/19 20:00 Mechanical Ventilator 08/07/19 19:04 60 18 30 08/07/19 19:00 59 18 131/82 (98) 100 08/07/19 18:06 53 18 122/56 (78) 100 08/07/19 17:00 67 18 145/79 (101) 100 08/07/19 16:54 56 18 30 08/07/19 16:00 97.8 61 17 132/57 (82) 100 08/07/19 16:00 30 08/07/19 16:00 58 08/07/19 16:00 Mechanical Ventilator 08/07/19 15:01 72 18 30 08/07/19 15:00 74 19 109/94 (99) 100 08/07/19 14:00 60 18 135/58 (83) 99 08/07/19 13:17 56 18 30 08/07/19 13:00 55 18 129/59 (82) 99 08/07/19 12:00 61 18 145/62 (89) 95 08/07/19 12:00 30 08/07/19 12:00 Mechanical Ventilator 08/07/19 12:00 63 08/07/19 11:00 62 18 141/63 (89) 93 08/07/19 10:56 60 18 30 Status: awake Condition: critical HEENT: atraumatic Neck: full ROM Lungs: chest wall tender Heart: HR/BP stable Abdomen: soft, non-tender Critical Care - Subjective ROS Limited/Unobtainable: Yes Condition: critical EKG Rhythm: Sinus Rhythm FI02: 30 Vent Support Breath Rate: 18 Vent Support Mode: AC Vent Tidal Volume: 650 Sputum Amount: Small PEEP: 5.0 PIP: 45 Tube Feeding Amount: 55 I&O: Intake and Output 08/07/19 08/08/19 19:00 07:00 Intake Total 1167.416 ml 1247.416 ml Output Total 355 ml 1250 ml Balance 812.416 ml -2.584 ml IV Total 477.416 ml 587.416 ml Tube Feeding 660 ml 660 ml Other 30 ml Output Urine Total 355 ml 1250 ml # Bowel Movements 4 4 CXR: no change ET-Tube: 7.5 ET Position: 23 Labs: Laboratory Tests Test 08/08/19 03:35 White Blood Count 8.8 K/UL (4.8-10.8) Red Blood Count 3.49 M/UL (4.70-6.10) L Hemoglobin 11.1 G/DL (14.2-18.0) L Hematocrit 32.2 % (42.0-52.0) L Mean Corpuscular Volume 92 FL (80-99) Mean Corpuscular Hemoglobin 31.7 PG (27.0-31.0) H Mean Corpuscular Hemoglobin Concent 34.3 G/DL (32.0-36.0) Red Cell Distribution Width 12.5 % (11.6-14.8) Platelet Count 259 K/UL (150-450) Mean Platelet Volume 6.1 FL (6.5-10.1) L Neutrophils (%) (Auto) 83.4 % (45.0-75.0) H Lymphocytes (%) (Auto) 9.9 % (20.0-45.0) L Monocytes (%) (Auto) 5.9 % (1.0-10.0) Eosinophils (%) (Auto) 0.4 % (0.0-3.0) Basophils (%) (Auto) 0.3 % (0.0-2.0) Sodium Level 145 MMOL/L (136-145) Potassium Level 3.9 MMOL/L (3.5-5.1) Chloride Level 109 MMOL/L (98-107) H Carbon Dioxide Level 25 MMOL/L (21-32) Anion Gap 11 mmol/L (5-15) Blood Urea Nitrogen 40 mg/dL (7-18) H Creatinine 1.1 MG/DL (0.55-1.30) Estimat Glomerular Filtration Rate > 60 mL/min (>60) Glucose Level 127 MG/DL (74-106) H Calcium Level 8.1 MG/DL (8.5-10.1) L Total Bilirubin 0.4 MG/DL (0.2-1.0) Aspartate Amino Transf (AST/SGOT) 52 U/L (15-37) H Alanine Aminotransferase (ALT/SGPT) 102 U/L (12-78) H Alkaline Phosphatase 67 U/L (46-116) Pro-B-Type Natriuretic Peptide 4313 pg/mL (0-125) H Total Protein 4.9 G/DL (6.4-8.2) L Albumin 1.9 G/DL (3.4-5.0) L Globulin 3.0 g/dL Albumin/Globulin Ratio 0.6 (1.0-2.7) L Nicole Graves MD Aug 08, 2019 10:23
[2019-08-08] MEDS: LORazepam Inj 2mg/ml 1ml IV PRN ×2 (14:42→21:56)
--- NOTE | 2019-08-08 14:57 | Infectious Diseases Prog Note ---
Assessment/Plan Assessment/Plan ASSESSMENT: The patient is a 79-year-old male with: Leukocytosis;SP Status post sepsis Pneumonia ( probable asp) - CXR: 1. Streaky opacities in the right lower lung may represent atelectasis versus scarring. Left basilar opacity may represent atelectasis. Component of pneumonia is not excluded. Pulmonary vasculature congestion. -08/01 ucx NTD sp cx: nl anastacio Urinary tract infection, SP Rx Afebrile. Ro bacteremia 07/31 Sp Code blue and intubation Hyperlipidemia. COPD. History of GERD. History of encephalopathy. History of CAD/VA. History of cardiomyopathy. 7. Hypertension. PLAN: DC Zosyn and IV Vanco # 7/ , -08/01 SP Rocephin day # 10 - 07/31 sp sp Dox # 6 Monitor CBC. Monitor BMP. Monitor chest x-ray f/u Cx (B) Rsp Support . Subjective Allergies: Coded Allergies: No Known Allergies (Unverified , 06/03/17) Subjective on vent afebrile Objective Vital Signs Last 24 Hour Vital Signs Date Time Temp Pulse Resp B/P (MAP) Pulse Ox O2 Delivery O2 Flow Rate FiO2 08/08/19 14:46 67 18 30 08/08/19 14:00 65 18 132/60 (84) 96 08/08/19 13:00 68 17 112/75 (87) 96 08/08/19 12:49 69 18 30 30 08/08/19 12:00 Mechanical Ventilator 08/08/19 12:00 98.9 61 18 134/56 (82) 96 08/08/19 12:00 30 08/08/19 12:00 61 08/08/19 11:18 56 18 30 30 08/08/19 11:00 54 18 125/56 (79) 96 08/08/19 10:00 59 18 136/60 (85) 85 08/08/19 09:00 60 18 134/54 (80) 93 08/08/19 09:00 58 08/08/19 08:47 63 18 30 30 08/08/19 08:46 100 08/08/19 08:00 Mechanical Ventilator 08/08/19 08:00 61 08/08/19 08:00 30 08/08/19 08:00 98.3 57 18 127/55 (79) 95 08/08/19 07:02 60 18 30 08/08/19 07:00 57 18 135/66 (89) 98 08/08/19 06:30 62 18 08/08/19 06:30 62 18 08/08/19 06:00 63 18 136/57 (83) 98 08/08/19 05:00 65 16 137/58 (84) 99 08/08/19 04:59 64 18 30 08/08/19 04:00 97.9 62 18 135/67 (89) 98 08/08/19 04:00 30 08/08/19 04:00 Mechanical Ventilator 08/08/19 03:03 64 18 30 08/08/19 03:00 61 18 134/60 (84) 98 08/08/19 02:00 61 18 143/56 (85) 99 08/08/19 01:05 63 18 30 08/08/19 01:00 62 18 141/56 (84) 99 08/08/19 00:00 30 08/08/19 00:00 98.3 63 18 140/59 (86) 99 08/08/19 00:00 Mechanical Ventilator 08/08/19 00:00 58 08/07/19 23:00 56 18 30 08/07/19 23:00 56 18 125/55 (78) 97 08/07/19 22:00 63 19 151/65 (93) 96 08/07/19 21:00 57 18 30 08/07/19 21:00 58 143/59 08/07/19 21:00 58 18 143/59 (87) 100 08/07/19 20:00 97.9 67 17 151/63 (92) 100 08/07/19 20:00 61 08/07/19 20:00 30 08/07/19 20:00 Mechanical Ventilator 08/07/19 19:04 60 18 30 08/07/19 19:00 59 18 131/82 (98) 100 08/07/19 18:06 53 18 122/56 (78) 100 08/07/19 17:00 67 18 145/79 (101) 100 08/07/19 16:54 56 18 30 08/07/19 16:00 97.8 61 17 132/57 (82) 100 08/07/19 16:00 30 08/07/19 16:00 58 3/5/20 16:00 Mechanical Ventilator 08/07/19 15:01 72 18 30 08/07/19 15:00 74 19 109/94 (99) 100 Height (Feet): 5 Height (Inches): 6.00 Weight (Pounds): 218 HEENT: anicteric Respiratory/Chest: normal breath sounds Cardiovascular: regularly irregular Abdomen: no organomegaly Laboratory Tests Test 08/08/19 03:35 White Blood Count 8.8 K/UL (4.8-10.8) Red Blood Count 3.49 M/UL (4.70-6.10) L Hemoglobin 11.1 G/DL (14.2-18.0) L Hematocrit 32.2 % (42.0-52.0) L Mean Corpuscular Volume 92 FL (80-99) Mean Corpuscular Hemoglobin 31.7 PG (27.0-31.0) H Mean Corpuscular Hemoglobin Concent 34.3 G/DL (32.0-36.0) Red Cell Distribution Width 12.5 % (11.6-14.8) Platelet Count 259 K/UL (150-450) Mean Platelet Volume 6.1 FL (6.5-10.1) L Neutrophils (%) (Auto) 83.4 % (45.0-75.0) H Lymphocytes (%) (Auto) 9.9 % (20.0-45.0) L Monocytes (%) (Auto) 5.9 % (1.0-10.0) Eosinophils (%) (Auto) 0.4 % (0.0-3.0) Basophils (%) (Auto) 0.3 % (0.0-2.0) Sodium Level 145 MMOL/L (136-145) Potassium Level 3.9 MMOL/L (3.5-5.1) Chloride Level 109 MMOL/L (98-107) H Carbon Dioxide Level 25 MMOL/L (21-32) Anion Gap 11 mmol/L (5-15) Blood Urea Nitrogen 40 mg/dL (7-18) H Creatinine 1.1 MG/DL (0.55-1.30) Estimat Glomerular Filtration Rate > 60 mL/min (>60) Glucose Level 127 MG/DL (74-106) H Calcium Level 8.1 MG/DL (8.5-10.1) L Total Bilirubin 0.4 MG/DL (0.2-1.0) Aspartate Amino Transf (AST/SGOT) 52 U/L (15-37) H Alanine Aminotransferase (ALT/SGPT) 102 U/L (12-78) H Alkaline Phosphatase 67 U/L (46-116) Pro-B-Type Natriuretic Peptide 4313 pg/mL (0-125) H Total Protein 4.9 G/DL (6.4-8.2) L Albumin 1.9 G/DL (3.4-5.0) L Globulin 3.0 g/dL Albumin/Globulin Ratio 0.6 (1.0-2.7) L Current Medications Medications (Trade) Dose Ordered Sig/[facility] Route PRN Reason Start Time Stop Time Status Last Admin Dose Admin Acetaminophen (Tylenol) 650 mg Q4H PRN ORAL Mild Pain/Temp > 100.5 08/01/19 02:00 08/20/19 17:59 08/05/19 17:37 Acetaminophen (Tylenol) 1,000 mg Q6H PRN ORAL Moderate Pain (Pain Scale 4-6) 08/01/19 00:00 08/20/19 17:59 08/03/19 10:34 Amiodarone HCl (Cordarone) 200 mg DAILY ORAL 08/08/19 09:00 09/07/19 08:59 08/08/19 09:47 Atorvastatin Calcium (Lipitor) 40 mg BEDTIME ORAL 08/01/19 21:00 08/20/19 20:59 08/07/19 20:50 Clopidogrel Bisulfate (Plavix) 75 mg DAILY ORAL 08/01/19 09:00 08/21/19 08:59 08/08/19 09:47 Haloperidol Lactate 5 mg/ Dextrose 56 ml @ 224 mls/hr Q2H PRN IVPB AGITATION 08/07/19 12:07 08/09/19 23:59 Heparin Sodium (Porcine) (Heparin 5000 units/ml) 5,000 units EVERY 12 HOURS SUBQ 08/01/19 09:00 08/20/19 20:59 08/08/19 09:59 Hydralazine HCl (Apresoline) 10 mg Q6H PRN IV For High Blood Pressure 08/01/19 00:15 08/25/19 12:14 Lorazepam (Ativan 2mg/ml 1ml) 0.5 mg Q2H PRN IV For Anxiety 08/07/19 11:30 08/14/19 11:29 08/08/19 14:42 Metoprolol Tartrate (Lopressor) 12.5 mg Q12H ORAL 08/07/19 21:00 09/06/19 20:59 Olanzapine (ZyPREXA) 5 mg BID ORAL 08/01/19 09:00 08/30/19 14:23 08/08/19 09:47 Ondansetron HCl (Zofran) 4 mg Q4H PRN IVP Nausea & Vomiting 08/01/19 02:30 08/21/19 18:29 Pantoprazole (Protonix) 40 mg Q12HR IVP 08/03/19 21:00 08/31/19 08:59 08/08/19 09:46 Piperacillin Sod/ Tazobactam Sod 3.375 gm/Sodium Chloride 110 ml @ 27.5 mls/hr Q8H IVPB 08/01/19 17:00 08/08/19 16:59 08/08/19 10:00 Thiamine HCl (Vitamin B1) 100 mg DAILY ORAL 08/01/19 09:00 08/21/19 08:59 08/08/19 09:47 Vancomycin HCl (Vanco rx to dose) 1 ea DAILY PRN MISC Per rx protocol 08/01/19 15:45 08/31/19 15:44 Vancomycin HCl 1 gm/Dextrose 275 ml @ 183.708 mls/hr Q12H IVPB 08/05/19 21:00 08/10/19 20:59 08/08/19 10:00 Vitamin D (Vitamin D) 5,000 intlu DAILY ORAL 08/01/19 09:00 08/21/19 08:59 08/08/19 09:46 Angel Rudolph MD Aug 08, 2019 14:57
[2019-08-08] MEDS ORDERED: NS 275ml ONE ×2 (15:45→15:53)
[2019-08-08] MEDS: Atorvastatin 20mg tab ORAL SCH (20:30)
--- NOTE | 2019-08-08 22:30 | Progress Note ---
DATE: 08/08/2019 SUBJECTIVE: The patient is awake, alert, afebrile, hemodynamically stable. He underwent two attempts to wean the patient that could not be and pressor support. PHYSICAL EXAMINATION: VITAL SIGNS: Blood pressure 133/57, his pulse is 67, respirations of 17, temperature 98.4. HEENT: Eyes were normal. ENT, mucous membranes were moist and intact. NECK: Supple with no JVD without lymph nodes. LUNGS: Clear. HEART: Normal sounds with irregular beats. There is bradycardia at rest. ABDOMEN: Soft, nontender, with normal bowel sounds. EXTREMITIES: Warm without cyanosis, clubbing, or edema. LABORATORY AND DIAGNOSTIC DATA: His hemoglobin is 11.1, hematocrit 32.2 with MCV of 92, WBC of 8.8, and platelets is 259,000. His BUN and creatinine is 40 and 1.1 respectively. It was 30 and 1.0 on August 05, 2019. His sodium is 145, potassium 3.9, chloride 109, and CO2 is 25. His calcium is 8.1. SGOT is 62, SGPT is 102 with alkaline phosphatase is 67. His proBNP increased to 4300. His chest x-ray showed right lower lobe infiltrate which is new and well placed tracheostomy tube. IMPRESSION AND PLAN: The patient has radiological evidence of pneumonia without fever, tachycardia, . The patient currently is on vancomycin and piperacillin discontinued and he is on metoprolol and amiodarone. The patient has been followed by program development specialist and by signaling project engineer. The case will be discussed with the signaling project engineer and medical claims examiner. Repeat laboratory tests will be done in the a.m. Modesta Mulligan M.D. DR: DARIA JOB#: [id number] CC:
[2019-08-09] VITALS (24 sets, daily range): BP systolic 120–161; BP diastolic 52–69
[2019-08-09] MEDS: LORazepam Inj 2mg/ml 1ml IV PRN (00:47)
--- NOTE | 2019-08-09 04:30 | Progress Note ---
DATE: 08/08/2019 CARDIOLOGY PROGRESS NOTE SUBJECTIVE: The patient remains in the intensive care unit. Efforts to wean off the ventilator has been unsuccessful thus far. The patient's monitored rhythm is sinus, sinus bradycardia, bundle-branch block. PHYSICAL EXAMINATION: VITAL SIGNS: Blood pressure 127/55, heart rate 57, respiratory rate 18. Afebrile. LUNGS: Coarse breath sounds, scattered rhonchi. Thin trach secretions. CARDIAC: Regular rhythm and rate. Normal S1, paradoxically split S2. ABDOMEN: Soft. EXTREMITIES: With trace edema. LABORATORY DATA: White count 8.8, hemoglobin 11.1. Sodium 145, potassium 3.9, bicarb 25, BUN 40, creatinine 1.1. Pro-natriuretic peptide 4300. Chest x-ray reveals right basilar infiltrate. IMPRESSION: 1. Status post cardiopulmonary arrest. 2. Respiratory failure. 3. Bradyarrhythmia. 4. Paroxysmal atrial fibrillation. 5. Acute myocardial infarction. 6. Acute on chronic systolic and diastolic congestive heart failure. 7. Prerenal azotemia. PLAN: 1. Maintain adequate hydration. 2. Discontinue beta-todd. 3. Protein supplements and nutrition by feeding tube. 4. Weaning efforts. 5. Antimicrobials. 6. Respiratory hygiene. 7. Continue amiodarone for suppression of atrial arrhythmias. Saeed Sim M.D. DR: Omid JOB#: [id number] CC:
[2019-08-09 06:49] LABS: BASOPHILS % (AUTO) 0.9 % (0.0-2.0); EOSINOPHILS % (AUTO) 4.6 % (0.0-3.0); HEMOGLOBIN 12.3 G/DL (14.2-18.0); LYMPHOCYTES % (AUTO) 15.1 % (20.0-45.0); MEAN CORPUSCULAR VOLUME 94 FL (80-99); MONOCYTES % (AUTO) 6.7 % (1.0-10.0); NEUTROPHILS % (AUTO) 72.8 % (45.0-75.0); PLATELET COUNT 284 K/UL (150-450); RED BLOOD COUNT 3.95 M/UL (4.70-6.10); RED CELL DISTRIBUTION WIDTH 12.7 % (11.6-14.8); WHITE BLOOD COUNT 8.6 K/UL (4.8-10.8)
[2019-08-09 07:03] LABS: ANION GAP 9 mmol/L (5-15); BLOOD UREA NITROGEN 42 mg/dL (7-18); CALCIUM 8.5 MG/DL (8.5-10.1); CARBON DIOXIDE 27 MMOL/L (21-32); CHLORIDE 110 MMOL/L (98-107); CREATININE 1.1 MG/DL (0.55-1.30); POTASSIUM 4.1 MMOL/L (3.5-5.1); SODIUM 146 MMOL/L (136-145)
[2019-08-09] MEDS: Pantoprazole Inj IVP SCH ×2 (08:14→20:36)
[2019-08-09] MEDS: Vitamin D 1000 IU Tab ORAL SCH (08:14)
[2019-08-09] MEDS: Thiamine 100mg tab ORAL SCH (08:15)
[2019-08-09] MEDS: Amiodarone 200mg tab ORAL SCH (08:15)
[2019-08-09] MEDS: Heparin 5000 units/ml inj SUBQ SCH ×2 (09:00→20:37)
--- NOTE | 2019-08-09 10:28 | Infectious Diseases Prog Note ---
Assessment/Plan Assessment/Plan ASSESSMENT: The patient is a 79-year-old male with: Leukocytosis;SP Status post sepsis Pneumonia ( probable asp) - CXR: 1. Streaky opacities in the right lower lung may represent atelectasis versus scarring. Left basilar opacity may represent atelectasis. Component of pneumonia is not excluded. Pulmonary vasculature congestion. -08/01 ucx NTD sp cx: nl anastacio Urinary tract infection, SP Rx Afebrile. Ro bacteremia 07/31 Sp Code blue and intubation Hyperlipidemia. COPD. History of GERD. History of encephalopathy. History of CAD/TX. History of cardiomyopathy. 7. Hypertension. PLAN: will monitor pt off of AB Rx 08/07 SP Zosyn and IV Vanco # 12/08 , -08/01 SP Rocephin day # 10 - 07/31 sp sp Dox # 6 Monitor CBC. Monitor BMP. Monitor chest x-ray Rsp Support . Subjective Allergies: Coded Allergies: No Known Allergies (Unverified , 06/03/17) Subjective on vent no acute event Objective Vital Signs Last 24 Hour Vital Signs Date Time Temp Pulse Resp B/P (MAP) Pulse Ox O2 Delivery O2 Flow Rate FiO2 08/09/19 09:15 59 18 30 08/09/19 09:00 61 18 126/55 (78) 96 08/09/19 08:00 30 08/09/19 08:00 Mechanical Ventilator 08/09/19 08:00 98.0 63 18 133/56 (81) 95 08/09/19 07:01 69 18 30 08/09/19 07:00 66 18 138/60 (86) 96 08/09/19 06:31 66 18 08/09/19 06:30 68 18 08/09/19 06:00 69 18 131/53 (79) 97 08/09/19 05:26 79 19 30 08/09/19 05:00 98.2 78 22 155/65 (95) 91 08/09/19 04:00 Mechanical Ventilator 08/09/19 04:00 65 18 138/62 (87) 98 08/09/19 04:00 30 08/09/19 04:00 65 08/09/19 03:26 56 18 30 08/09/19 03:00 61 18 120/52 (74) 98 08/09/19 02:00 61 18 127/62 (83) 95 08/09/19 01:51 62 18 30 08/09/19 01:00 58 17 128/64 (85) 98 08/09/19 00:00 Mechanical Ventilator 08/09/19 00:00 30 08/09/19 00:00 57 08/09/19 00:00 98.1 57 18 125/53 (77) 96 08/09/19 00:00 30 08/08/19 23:26 66 18 30 08/08/19 23:00 58 18 126/57 (80) 96 08/08/19 22:00 60 15 135/67 (89) 96 08/08/19 21:05 65 134/60 08/08/19 21:00 64 18 134/60 (84) 95 08/08/19 20:51 64 19 30 08/08/19 20:00 Mechanical Ventilator 08/08/19 20:00 98.3 59 18 134/55 (81) 95 08/08/19 20:00 59 08/08/19 20:00 30 08/08/19 19:30 57 18 30 08/08/19 19:00 55 17 124/55 (78) 95 08/08/19 18:00 57 17 133/57 (82) 96 08/08/19 17:00 59 14 132/62 (85) 97 08/08/19 16:58 56 18 30 08/08/19 16:00 Mechanical Ventilator 08/08/19 16:00 56 08/08/19 16:00 30 08/08/19 16:00 98.4 56 18 128/66 (86) 96 08/08/19 15:00 72 20 150/62 (91) 99 08/08/19 14:46 67 18 30 08/08/19 14:00 65 18 132/60 (84) 96 08/08/19 13:00 68 17 112/75 (87) 96 08/08/19 12:49 69 18 30 08/08/19 12:00 Mechanical Ventilator 08/08/19 12:00 98.9 61 18 134/56 (82) 96 08/08/19 12:00 30 08/08/19 12:00 61 08/08/19 11:18 56 18 30 08/08/19 11:00 54 18 125/56 (79) 96 Height (Feet): 5 Height (Inches): 6.00 Weight (Pounds): 206 HEENT: anicteric Respiratory/Chest: lungs clear Cardiovascular: regular rhythm Abdomen: no organomegaly Laboratory Tests Test 08/09/19 05:20 White Blood Count 8.6 K/UL (4.8-10.8) Red Blood Count 3.95 M/UL (4.70-6.10) L Hemoglobin 12.3 G/DL (14.2-18.0) L Hematocrit 37.0 % (42.0-52.0) L Mean Corpuscular Volume 94 FL (80-99) Mean Corpuscular Hemoglobin 31.1 PG (27.0-31.0) H Mean Corpuscular Hemoglobin Concent 33.2 G/DL (32.0-36.0) Red Cell Distribution Width 12.7 % (11.6-14.8) Platelet Count 284 K/UL (150-450) Mean Platelet Volume 6.1 FL (6.5-10.1) L Neutrophils (%) (Auto) 72.8 % (45.0-75.0) Lymphocytes (%) (Auto) 15.1 % (20.0-45.0) L Monocytes (%) (Auto) 6.7 % (1.0-10.0) Eosinophils (%) (Auto) 4.6 % (0.0-3.0) H Basophils (%) (Auto) 0.9 % (0.0-2.0) Sodium Level 146 MMOL/L (136-145) H Potassium Level 4.1 MMOL/L (3.5-5.1) Chloride Level 110 MMOL/L (98-107) H Carbon Dioxide Level 27 MMOL/L (21-32) Anion Gap 9 mmol/L (5-15) Blood Urea Nitrogen 42 mg/dL (7-18) H Creatinine 1.1 MG/DL (0.55-1.30) Estimat Glomerular Filtration Rate > 60 mL/min (>60) Glucose Level 90 MG/DL (74-106) Calcium Level 8.5 MG/DL (8.5-10.1) Current Medications Medications (Trade) Dose Ordered Sig/[facility] Route PRN Reason Start Time Stop Time Status Last Admin Dose Admin Acetaminophen (Tylenol) 650 mg Q4H PRN ORAL Mild Pain/Temp > 100.5 08/01/19 02:00 08/20/19 17:59 08/05/19 17:37 Acetaminophen (Tylenol) 1,000 mg Q6H PRN ORAL Moderate Pain (Pain Scale 4-6) 08/01/19 00:00 08/20/19 17:59 08/03/19 10:34 Amiodarone HCl (Cordarone) 200 mg DAILY ORAL 08/08/19 09:00 09/07/19 08:59 08/09/19 08:15 Atorvastatin Calcium (Lipitor) 40 mg BEDTIME ORAL 08/01/19 21:00 08/20/19 20:59 08/08/19 20:30 Clopidogrel Bisulfate (Plavix) 75 mg DAILY ORAL 08/01/19 09:00 08/21/19 08:59 08/09/19 08:14 Haloperidol Lactate 5 mg/ Dextrose 56 ml @ 224 mls/hr Q2H PRN IVPB AGITATION 08/07/19 12:07 08/09/19 23:59 08/09/19 00:00 Heparin Sodium (Porcine) (Heparin 5000 units/ml) 5,000 units EVERY 12 HOURS SUBQ 08/01/19 09:00 08/20/19 20:59 08/08/19 20:31 Hydralazine HCl (Apresoline) 10 mg Q6H PRN IV For High Blood Pressure 08/01/19 00:15 08/25/19 12:14 Lorazepam (Ativan 2mg/ml 1ml) 0.5 mg Q2H PRN IV For Anxiety 08/07/19 11:30 08/14/19 11:29 08/09/19 00:47 Olanzapine (ZyPREXA) 5 mg BID ORAL 08/01/19 09:00 08/30/19 14:23 08/09/19 08:14 Ondansetron HCl (Zofran) 4 mg Q4H PRN IVP Nausea & Vomiting 08/01/19 02:30 08/21/19 18:29 Pantoprazole (Protonix) 40 mg Q12HR IVP 08/03/19 21:00 08/31/19 08:59 08/09/19 08:14 Thiamine HCl (Vitamin B1) 100 mg DAILY ORAL 08/01/19 09:00 08/21/19 08:59 08/09/19 08:15 Vitamin D (Vitamin D) 5,000 intlu DAILY ORAL 08/01/19 09:00 08/21/19 08:59 08/09/19 08:14 Angel Rudolph MD Aug 09, 2019 10:28
--- NOTE | 2019-08-09 13:18 | Nephrology Progress Note ---
Assessment/Plan Problem List: (1) AUREA (acute kidney injury) (2) Cardiopulmonary arrest (3) Respiratory failure (4) Cardiomyopathy (5) Obesity (BMI 30.0-34.9) (6) DMII (diabetes mellitus, type 2) Assessment Acute Renal Failure : AUREA Most likely due to cardiorespiratory arrest and episode of hypotension. Patient also has cardiomyopathy with Ej Fx of 40 % on admission Obese : BMI 34.4 ? DM Other Dx (1) Cardiopulmonary arrest (2) Nosocomial pneumonia (3) Acute respiratory failure (4) COPD (chronic obstructive pulmonary disease) (5) Atrial fibrillation (6) Dementia with behavioral disturbance (7) CAD (coronary artery disease) Plan Stable from Renal stand now- Aim to wean from ventilator Monitor renal parameters. Serum creatinine improved Monitor urine output. Urine output improved. Avoid nephrotoxics. Weaning as possible. Remains intubated at this time. Correct electrolyte imbalances. Change tube feeding to Glucerna. Subjective ROS Limited/Unobtainable: Yes Objective Objective Last 24 Hour Vital Signs Date Time Temp Pulse Resp B/P (MAP) Pulse Ox O2 Delivery O2 Flow Rate FiO2 08/09/19 13:05 63 18 30 08/09/19 12:00 Mechanical Ventilator 08/09/19 12:00 30 08/09/19 11:47 77 08/09/19 11:10 69 18 30 08/09/19 11:00 70 18 144/67 (92) 95 08/09/19 10:00 62 18 153/69 (97) 96 08/09/19 09:15 59 18 30 08/09/19 09:00 61 18 126/55 (78) 96 08/09/19 08:00 30 08/09/19 08:00 68 08/09/19 08:00 Mechanical Ventilator 08/09/19 08:00 98.0 63 18 133/56 (81) 95 08/09/19 07:01 69 18 30 08/09/19 07:00 66 18 138/60 (86) 96 08/09/19 06:31 66 18 08/09/19 06:30 68 18 08/09/19 06:00 69 18 131/53 (79) 97 08/09/19 05:26 79 19 30 08/09/19 05:00 98.2 78 22 155/65 (95) 91 08/09/19 04:00 Mechanical Ventilator 08/09/19 04:00 65 18 138/62 (87) 98 08/09/19 04:00 30 08/09/19 04:00 65 08/09/19 03:26 56 18 30 08/09/19 03:00 61 18 120/52 (74) 98 08/09/19 02:00 61 18 127/62 (83) 95 08/09/19 01:51 62 18 30 08/09/19 01:00 58 17 128/64 (85) 98 08/09/19 00:00 Mechanical Ventilator 08/09/19 00:00 30 08/09/19 00:00 57 08/09/19 00:00 98.1 57 18 125/53 (77) 96 08/09/19 00:00 30 08/08/19 23:26 66 18 30 08/08/19 23:00 58 18 126/57 (80) 96 08/08/19 22:00 60 15 135/67 (89) 96 08/08/19 21:05 65 134/60 08/08/19 21:00 64 18 134/60 (84) 95 08/08/19 20:51 64 19 30 08/08/19 20:00 Mechanical Ventilator 08/08/19 20:00 98.3 59 18 134/55 (81) 95 08/08/19 20:00 59 08/08/19 20:00 30 08/08/19 19:30 57 18 30 08/08/19 19:00 55 17 124/55 (78) 95 08/08/19 18:00 57 17 133/57 (82) 96 08/08/19 17:00 59 14 132/62 (85) 97 08/08/19 16:58 56 18 30 08/08/19 16:00 Mechanical Ventilator 08/08/19 16:00 56 08/08/19 16:00 30 08/08/19 16:00 98.4 56 18 128/66 (86) 96 08/08/19 15:00 72 20 150/62 (91) 99 08/08/19 14:46 67 18 30 08/08/19 14:00 65 18 132/60 (84) 96 Intake and Output 08/08/19 08/09/19 19:00 07:00 Intake Total 1137.416 ml 746 ml Output Total 420 ml 440 ml Balance 717.416 ml 306 ml Free Water 30 ml IV Total 477.416 ml 56 ml Tube Feeding 660 ml 660 ml Output Urine Total 420 ml 440 ml # Bowel Movements 4 2 Laboratory Tests 08/09/19 05:20: White Blood Count 8.6, Red Blood Count 3.95L, Hemoglobin 12.3L, Hematocrit 37.0L , Mean Corpuscular Volume 94, Mean Corpuscular Hemoglobin 31.1H, Mean Corpuscular Hemoglobin Concent 33.2, Red Cell Distribution Width 12.7, Platelet Count 284, Mean Platelet Volume 6.1L, Neutrophils (%) (Auto) 72.8, Lymphocytes ( %) (Auto) 15.1L, Monocytes (%) (Auto) 6.7, Eosinophils (%) (Auto) 4.6H, Basophils (%) (Auto) 0.9, Sodium Level 146H, Potassium Level 4.1, Chloride Level 110H, Carbon Dioxide Level 27, Anion Gap 9, Blood Urea Nitrogen 42H, Creatinine 1.1, Estimat Glomerular Filtration Rate > 60, Glucose Level 90, Calcium Level 8.5 Height (Feet): 5 Height (Inches): 6.00 Weight (Pounds): 206 General Appearance: no apparent distress EENT: other - On ventilator Cardiovascular: normal rate Respiratory/Chest: decreased breath sounds Abdomen: distended Objective no change Yunior Sexton MD Aug 09, 2019 13:18
[2019-08-09] MEDS ORDERED: Tubing IV Secondary IV ONE (13:37)
[2019-08-09] MEDS ORDERED: Sterile Water Irrig 1000ml IRRIG ONE (13:37)
[2019-08-09] MEDS ORDERED: NS 275ml ONE (13:37)
--- NOTE | 2019-08-09 16:10 | Pulmonolgy Critical Care Note ---
Critical Care - Asmt/Plan Assessment/Plan: Pulmonary CCM Progress Note Critical Care - Asmt/Plan Problems: (1) Cardiopulmonary arrest (2) Nosocomial pneumonia (3) Acute respiratory failure on MV (4) COPD (chronic obstructive pulmonary disease) (5) Atrial fibrillation (6) Dementia with behavioral disturbance (7) CAD (coronary artery disease) Respiratory: monitor respiratory rate, adjust FIO2, CXR Cardiac: continue pressors, continue to monitor HR/BP Renal: F/U I&O, keep IV fluid Infectious Disease: check cultures Gastrointestinal: continue feedings/current rate Endocrine: monitor blood sugar, check TSH Affect: PRN ativan Prophylaxis: Protonix, Heparin 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, 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 Critical Care - Objective Vital Signs Noted Status: awake Condition: critical HEENT: atraumatic Neck: full ROM Lungs: chest wall tender Heart: HR/BP stable Abdomen: soft, non-tender Critical Care - Subjective ROS Limited/Unobtainable: Yes Condition: critical EKG Rhythm: Sinus Rhythm FI02: 30 Vent Support Breath Rate: 18 Vent Support Mode: AC Vent Tidal Volume: 650 Sputum Amount: Small PEEP: 5.0 PIP: 45 Tube Feeding Amount: 55 CXR: no change ET-Tube: 7.5 ET Position: 23 Labs: Laboratory Tests Test 08/08/19 03:35 White Blood Count 8.8 K/UL (4.8-10.8) Red Blood Count 3.49 M/UL (4.70-6.10) L Hemoglobin 11.1 G/DL (14.2-18.0) L Hematocrit 32.2 % (42.0-52.0) L Mean Corpuscular Volume 92 FL (80-99) Mean Corpuscular Hemoglobin 31.7 PG (27.0-31.0) H Mean Corpuscular Hemoglobin Concent 34.3 G/DL (32.0-36.0) Red Cell Distribution Width 12.5 % (11.6-14.8) Platelet Count 259 K/UL (150-450) Mean Platelet Volume 6.1 FL (6.5-10.1) L Neutrophils (%) (Auto) 83.4 % (45.0-75.0) H Lymphocytes (%) (Auto) 9.9 % (20.0-45.0) L Monocytes (%) (Auto) 5.9 % (1.0-10.0) Eosinophils (%) (Auto) 0.4 % (0.0-3.0) Basophils (%) (Auto) 0.3 % (0.0-2.0) Sodium Level 145 MMOL/L (136-145) Potassium Level 3.9 MMOL/L (3.5-5.1) Chloride Level 109 MMOL/L (98-107) H Carbon Dioxide Level 25 MMOL/L (21-32) Anion Gap 11 mmol/L (5-15) Blood Urea Nitrogen 40 mg/dL (7-18) H Creatinine 1.1 MG/DL (0.55-1.30) Estimat Glomerular Filtration Rate > 60 mL/min (>60) Glucose Level 127 MG/DL (74-106) H Calcium Level 8.1 MG/DL (8.5-10.1) L Total Bilirubin 0.4 MG/DL (0.2-1.0) Aspartate Amino Transf (AST/SGOT) 52 U/L (15-37) H Alanine Aminotransferase (ALT/SGPT) 102 U/L (12-78) H Alkaline Phosphatase 67 U/L (46-116) Pro-B-Type Natriuretic Peptide 4313 pg/mL (0-125) H Total Protein 4.9 G/DL (6.4-8.2) L Albumin 1.9 G/DL (3.4-5.0) L Globulin 3.0 g/dL Albumin/Globulin Ratio 0.6 (1.0-2.7) L Critical Care - Objective Last 24 Hour Vital Signs Date Time Temp Pulse Resp B/P (MAP) Pulse Ox O2 Delivery O2 Flow Rate FiO2 08/09/19 15:20 66 18 30 08/09/19 15:00 66 18 134/55 (81) 98 08/09/19 14:00 64 17 131/53 (79) 97 08/09/19 13:05 63 18 30 08/09/19 13:00 72 17 153/68 (96) 96 08/09/19 12:00 98.0 65 17 133/56 (81) 96 08/09/19 12:00 Mechanical Ventilator 08/09/19 12:00 30 08/09/19 11:47 77 08/09/19 11:10 69 18 30 08/09/19 11:00 70 18 144/67 (92) 95 3/7/20 10:00 62 18 153/69 (97) 96 08/09/19 09:15 59 18 30 08/09/19 09:00 61 18 126/55 (78) 96 08/09/19 08:00 30 08/09/19 08:00 68 08/09/19 08:00 Mechanical Ventilator 08/09/19 08:00 98.0 63 18 133/56 (81) 95 08/09/19 07:01 69 18 30 08/09/19 07:00 66 18 138/60 (86) 96 08/09/19 06:31 66 18 08/09/19 06:30 68 18 08/09/19 06:00 69 18 131/53 (79) 97 08/09/19 05:26 79 19 30 08/09/19 05:00 98.2 78 22 155/65 (95) 91 08/09/19 04:00 Mechanical Ventilator 08/09/19 04:00 65 18 138/62 (87) 98 08/09/19 04:00 30 08/09/19 04:00 65 08/09/19 03:26 56 18 30 08/09/19 03:00 61 18 120/52 (74) 98 08/09/19 02:00 61 18 127/62 (83) 95 08/09/19 01:51 62 18 30 08/09/19 01:00 58 17 128/64 (85) 98 08/09/19 00:00 Mechanical Ventilator 08/09/19 00:00 30 08/09/19 00:00 57 08/09/19 00:00 98.1 57 18 125/53 (77) 96 08/09/19 00:00 30 08/08/19 23:26 66 18 30 08/08/19 23:00 58 18 126/57 (80) 96 08/08/19 22:00 60 15 135/67 (89) 96 08/08/19 21:05 65 134/60 08/08/19 21:00 64 18 134/60 (84) 95 08/08/19 20:51 64 19 30 08/08/19 20:00 Mechanical Ventilator 08/08/19 20:00 98.3 59 18 134/55 (81) 95 08/08/19 20:00 59 08/08/19 20:00 30 08/08/19 19:30 57 18 30 08/08/19 19:00 55 17 124/55 (78) 95 08/08/19 18:00 57 17 133/57 (82) 96 08/08/19 17:00 59 14 132/62 (85) 97 08/08/19 16:58 56 18 30 Critical Care - Subjective ROS Limited/Unobtainable: No FI02: 30 Vent Support Breath Rate: 18 Vent Support Mode: AC Vent Tidal Volume: 650 Sputum Amount: Scant PEEP: 5.0 PIP: 31 Tube Feeding Amount: 55 I&O: Intake and Output 08/08/19 08/09/19 19:00 07:00 Intake Total 1137.416 ml 746 ml Output Total 420 ml 440 ml Balance 717.416 ml 306 ml Free Water 30 ml IV Total 477.416 ml 56 ml Tube Feeding 660 ml 660 ml Output Urine Total 420 ml 440 ml # Bowel Movements 4 2 ET-Tube: 7.5 ET Position: 23 Saeed Pierre MD Aug 09, 2019 16:10
[2019-08-09] MEDS: Atorvastatin 20mg tab ORAL SCH (20:36)
--- NOTE | 2019-08-09 23:15 | Progress Note ---
DATE: 08/09/2019 CARDIOLOGY PROGRESS NOTE SUBJECTIVE: The patient remains on ventilator support in the intensive care unit. Condition remains critical. Prognosis still guarded. Monitored rhythm sinus and sinus bradycardia with bundle-branch block. OBJECTIVE: VITAL SIGNS: Blood pressure 134/55, pulse 66, and respirations 18. HEENT: Thin secretions from endotracheal tube. LUNGS: Bilateral breath sounds. Rhonchi. HEART: Regular rhythm and rate. Normal S1, S2. ABDOMEN: Soft. EXTREMITIES: Trace edema. LABORATORY DATA: White count 8.6 and hemoglobin 12.3. Sodium 146, potassium 4.1, bicarb 27, BUN 42, and creatinine 1.1. IMPRESSION: 1. Respiratory failure, status post cardiopulmonary arrest. 2. Prerenal azotemia. 3. Dehydration. 4. Hypernatremia. 5. Acute on chronic diastolic congestive heart failure. 6. Severe protein-calorie malnutrition. 7. Sinus bradycardia improved off beta-todd. 8. Paroxysmal atrial fibrillation suppressed with amiodarone. PLAN: 1. Free water replacement. 2. No diuretic therapy for now. 3. Off beta-todd. 4. Continue maintenance dose amiodarone. 5. Continue cardiac monitoring. 6. Reassess Seroquel. 7. Follow up laboratory studies. Saeed Sim M.D. DR: YESENIA JOB#: [id number] CC:
[2019-08-10] VITALS (24 sets, daily range): BP systolic 112–166; BP diastolic 46–110
--- NOTE | 2019-08-10 00:45 | Progress Note ---
DATE: 08/09/2019 SUBJECTIVE: The patient is awake, alert, afebrile, hemodynamically stable. The patient is very anxious. According to the , she slept last night and unable to tolerate any weaning. He thought it could be precipitated by anxiety attack and could not be aborted by previous attempt of Ativan. PHYSICAL EXAMINATION: VITAL SIGNS: Blood pressure 124/55, pulse 65, respirations are 18, and temperature is 98. HEENT: Eyes were normal. ENT, mucous membranes were moist and intact. NECK: Supple with no JVD. No lymph nodes. LUNGS: Clear. HEART: Normal sounds with regular beats. There is no tachycardia at rest. ABDOMEN: Soft and nontender with normal bowel sounds. EXTREMITIES: Warm without cyanosis, clubbing, or edema. LABORATORY AND DIAGNOSTIC DATA: Hemoglobin 12.3, hematocrit 37.0 with MCV of 94, WBC of 8.6, and platelets 284,000. His BUN and creatinine is 42 and 1.1 respectively. His sodium is 143, potassium 4.1, chloride 110, CO2 27. The patient's BUN progressively increased from August 05, 2019 to August 09, 2019 from 30 to 42. Creatinine remained unchanged. PLAN: The patient received Seroquel 50 mg at bedtime today in an attempt to induce his anxiety and psychosis. The patient is known to have chronic psychosis for a long time that does not really require medication and it was not involving aggressive agitation. Repeat laboratory tests will be done in the a.m. Modesta Mulligan M.D. DR: ANKUR JOB#: [id number] CC:
[2019-08-10 07:20] LABS: BASOPHILS % (AUTO) 0.5 % (0.0-2.0); EOSINOPHILS % (AUTO) 2.8 % (0.0-3.0); HEMATOCRIT 33.6 % (42.0-52.0); HEMOGLOBIN 11.4 G/DL (14.2-18.0); LYMPHOCYTES % (AUTO) 10.2 % (20.0-45.0); MEAN CORPUSCULAR VOLUME 92 FL (80-99); MONOCYTES % (AUTO) 6.6 % (1.0-10.0); NEUTROPHILS % (AUTO) 79.9 % (45.0-75.0); PLATELET COUNT 286 K/UL (150-450); RED BLOOD COUNT 3.64 M/UL (4.70-6.10); RED CELL DISTRIBUTION WIDTH 12.4 % (11.6-14.8); WHITE BLOOD COUNT 7.2 K/UL (4.8-10.8)
[2019-08-10] MEDS: Vitamin D 1000 IU Tab ORAL SCH (08:37)
[2019-08-10] MEDS: Pantoprazole Inj IVP SCH ×2 (08:37→20:30)
[2019-08-10] MEDS: Thiamine 100mg tab ORAL SCH (08:37)
[2019-08-10] MEDS: Amiodarone 200mg tab ORAL SCH (08:38)
[2019-08-10 08:40] LABS: ALANINE AMINOTRANSFERASE 94 U/L (12-78); ALBUMIN 2.1 G/DL (3.4-5.0); ALBUMIN/GLOBULIN RATIO 0.7 (1.0-2.7); ALKALINE PHOSPHATASE 76 U/L (46-116); ANION GAP 8 mmol/L (5-15); ASPARTATE AMINO TRANSFERASE 32 U/L (15-37); BILIRUBIN,TOTAL 0.4 MG/DL (0.2-1.0); BLOOD UREA NITROGEN 33 mg/dL (7-18); CALCIUM 8.3 MG/DL (8.5-10.1); CARBON DIOXIDE 27 MMOL/L (21-32); CHLORIDE 109 MMOL/L (98-107); POTASSIUM 3.9 MMOL/L (3.5-5.1); SODIUM 144 MMOL/L (136-145)
[2019-08-10] MEDS: Heparin 5000 units/ml inj SUBQ SCH ×2 (08:41→20:32)
--- NOTE | 2019-08-10 14:54 | Nephrology Progress Note ---
Assessment/Plan Problem List: (1) AUREA (acute kidney injury) (2) Cardiopulmonary arrest (3) Respiratory failure (4) Cardiomyopathy (5) Obesity (BMI 30.0-34.9) (6) DMII (diabetes mellitus, type 2) Assessment Acute Renal Failure : AUREA Most likely due to cardiorespiratory arrest and episode of hypotension. Patient also has cardiomyopathy with Ej Fx of 40 % on admission Obese : BMI 34.4 ? DM Other Dx (1) Cardiopulmonary arrest (2) Nosocomial pneumonia (3) Acute respiratory failure (4) COPD (chronic obstructive pulmonary disease) (5) Atrial fibrillation (6) Dementia with behavioral disturbance (7) CAD (coronary artery disease) Plan Stable from Renal stand now- Aim to wean from ventilator Monitor renal parameters. Serum creatinine improved Monitor urine output. Urine output improved. Avoid nephrotoxics. Weaning as possible. Remains intubated at this time. Correct electrolyte imbalances. Change tube feeding to Glucerna. Subjective ROS Limited/Unobtainable: Yes Objective Objective Last 24 Hour Vital Signs Date Time Temp Pulse Resp B/P (MAP) Pulse Ox O2 Delivery O2 Flow Rate FiO2 08/10/19 14:38 62 18 30 08/10/19 13:00 86 18 136/57 (83) 100 08/10/19 12:58 30 08/10/19 12:47 89 23 08/10/19 12:00 90 08/10/19 12:00 Mechanical Ventilator 08/10/19 12:00 99.3 90 20 155/67 (96) 98 08/10/19 11:00 87 19 141/61 (87) 98 08/10/19 10:48 88 20 30 08/10/19 10:47 30 08/10/19 10:00 89 19 145/64 (91) 98 08/10/19 09:00 80 18 166/69 (101) 96 08/10/19 09:00 30 08/10/19 08:56 95 08/10/19 08:56 78 16 30 08/10/19 08:00 67 08/10/19 08:00 Mechanical Ventilator 08/10/19 08:00 99.2 65 18 136/71 (92) 97 08/10/19 07:00 76 18 140/95 (110) 99 08/10/19 06:56 71 18 30 08/10/19 06:33 69 18 08/10/19 06:31 68 18 08/10/19 06:00 74 18 147/60 (89) 98 08/10/19 05:21 68 18 30 08/10/19 05:00 75 18 139/57 (84) 96 08/10/19 04:00 30 08/10/19 04:00 99.7 84 22 154/65 (94) 99 08/10/19 04:00 84 08/10/19 04:00 Mechanical Ventilator 08/10/19 03:17 79 20 30 08/10/19 03:00 79 17 150/66 (94) 97 08/10/19 02:00 72 18 150/66 (94) 98 08/10/19 01:00 78 18 162/78 (106) 99 08/10/19 01:00 82 18 30 08/10/19 00:00 Mechanical Ventilator 08/10/19 00:00 98.8 66 18 135/55 (81) 96 08/10/19 00:00 30 08/10/19 00:00 73 08/09/19 23:30 70 18 30 08/09/19 23:00 76 16 161/64 (96) 98 08/09/19 22:00 64 18 148/61 (90) 98 08/09/19 21:40 62 18 30 08/09/19 21:00 64 17 142/58 (86) 98 08/09/19 20:00 Mechanical Ventilator 08/09/19 20:00 98.0 64 17 148/63 (91) 97 08/09/19 20:00 30 08/09/19 20:00 66 08/09/19 19:29 63 18 30 08/09/19 19:00 67 18 142/60 (87) 96 08/09/19 18:00 62 17 146/60 (88) 98 08/09/19 17:13 60 18 30 08/09/19 17:00 58 18 145/69 (94) 97 08/09/19 16:00 97.6 61 18 137/59 (85) 97 08/09/19 16:00 64 08/09/19 16:00 Mechanical Ventilator 08/09/19 16:00 30 08/09/19 15:20 66 18 30 08/09/19 15:00 66 18 134/55 (81) 98 Intake and Output 08/09/19 08/10/19 19:00 07:00 Intake Total 902 ml 1920 ml Output Total 775 ml 1805 ml Balance 127 ml 115 ml Free Water 150 ml 60 ml IV Total 92 ml 1200 ml Tube Feeding 660 ml 660 ml Output Urine Total 775 ml 1805 ml # Bowel Movements 2 Laboratory Tests 08/10/19 05:45: White Blood Count 7.2, Red Blood Count 3.64L, Hemoglobin 11.4L, Hematocrit 33.6L , Mean Corpuscular Volume 92, Mean Corpuscular Hemoglobin 31.4H, Mean Corpuscular Hemoglobin Concent 34.1, Red Cell Distribution Width 12.4, Platelet Count 286, Mean Platelet Volume 6.0L, Neutrophils (%) (Auto) 79.9H, Lymphocytes (%) (Auto) 10.2L, Monocytes (%) (Auto) 6.6, Eosinophils (%) (Auto) 2.8, Basophils (%) (Auto) 0.5, Sodium Level 144, Potassium Level 3.9, Chloride Level 109H, Carbon Dioxide Level 27, Anion Gap 8, Blood Urea Nitrogen 33H, Creatinine 1.0, Estimat Glomerular Filtration Rate > 60, Glucose Level 114H, Calcium Level 8.3L, Total Bilirubin 0.4, Aspartate Amino Transf (AST/SGOT) 32, Alanine Aminotransferase (ALT/SGPT) 94H, Alkaline Phosphatase 76, Total Protein 5.0L, Albumin 2.1L, Globulin 2.9, Albumin/Globulin Ratio 0.7L 08/10/19 10:40: Arterial Blood pH 7.429, Arterial Blood Partial Pressure CO2 38.4, Arterial Blood Partial Pressure O2 85.3, Arterial Blood HCO3 24.9, Arterial Blood Oxygen Saturation 95.7, Arterial Blood Base Excess 0.6, Joe Test Positive Height (Feet): 5 Height (Inches): 6.00 Weight (Pounds): 217 General Appearance: no apparent distress EENT: other - Remains intubated on ventilator Cardiovascular: normal rate Respiratory/Chest: decreased breath sounds Abdomen: soft Objective no change Yunoir Sexton MD Aug 10, 2019 14:54
--- NOTE | 2019-08-10 18:24 | Pulmonolgy Critical Care Note ---
Critical Care - Asmt/Plan Assessment/Plan: Pulmonary CCM Progress Note Critical Care - Asmt/Plan Problems: (1) Cardiopulmonary arrest (2) Nosocomial pneumonia (3) Acute respiratory failure on MV (4) COPD (chronic obstructive pulmonary disease) (5) Atrial fibrillation (6) Dementia with behavioral disturbance (7) CAD (coronary artery disease) Respiratory: monitor respiratory rate, adjust FIO2, CXR weaned fro 3 hours today Cardiac: off pressors, continue to monitor HR/BP Renal: F/U I&O, keep IV fluid Infectious Disease: check cultures Gastrointestinal: continue feedings/current rate Endocrine: monitor blood sugar, check TSH Affect: PRN ativan Prophylaxis: Protonix, Heparin Notes Reviewed: toe pounder, 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 Critical Care - Objective Vital Signs Noted Status: awake Condition: critical HEENT: atraumatic Neck: full ROM Lungs: CTAB Heart: HR/BP stable Abdomen: soft, non-tender Critical Care - Subjective ROS Limited/Unobtainable: Yes Condition: critical EKG Rhythm: Sinus Rhythm FI02: 30 Vent Support Breath Rate: 18 Vent Support Mode: AC Vent Tidal Volume: 650 Sputum Amount: Small PEEP: 5.0 PIP: 45 Tube Feeding Amount: 55 CXR: no change ET-Tube: 7.5 ET Position: 23 Labs: Laboratory Tests Test 08/08/19 03:35 White Blood Count 8.8 K/UL (4.8-10.8) Red Blood Count 3.49 M/UL (4.70-6.10) L Hemoglobin 11.1 G/DL (14.2-18.0) L Hematocrit 32.2 % (42.0-52.0) L Mean Corpuscular Volume 92 FL (80-99) Mean Corpuscular Hemoglobin 31.7 PG (27.0-31.0) H Mean Corpuscular Hemoglobin Concent 34.3 G/DL (32.0-36.0) Red Cell Distribution Width 12.5 % (11.6-14.8) Platelet Count 259 K/UL (150-450) Mean Platelet Volume 6.1 FL (6.5-10.1) L Neutrophils (%) (Auto) 83.4 % (45.0-75.0) H Lymphocytes (%) (Auto) 9.9 % (20.0-45.0) L Monocytes (%) (Auto) 5.9 % (1.0-10.0) Eosinophils (%) (Auto) 0.4 % (0.0-3.0) Basophils (%) (Auto) 0.3 % (0.0-2.0) Sodium Level 145 MMOL/L (136-145) Potassium Level 3.9 MMOL/L (3.5-5.1) Chloride Level 109 MMOL/L (98-107) H Carbon Dioxide Level 25 MMOL/L (21-32) Anion Gap 11 mmol/L (5-15) Blood Urea Nitrogen 40 mg/dL (7-18) H Creatinine 1.1 MG/DL (0.55-1.30) Estimat Glomerular Filtration Rate > 60 mL/min (>60) Glucose Level 127 MG/DL (74-106) H Calcium Level 8.1 MG/DL (8.5-10.1) L Total Bilirubin 0.4 MG/DL (0.2-1.0) Aspartate Amino Transf (AST/SGOT) 52 U/L (15-37) H Alanine Aminotransferase (ALT/SGPT) 102 U/L (12-78) H Alkaline Phosphatase 67 U/L (46-116) Pro-B-Type Natriuretic Peptide 4313 pg/mL (0-125) H Total Protein 4.9 G/DL (6.4-8.2) L Albumin 1.9 G/DL (3.4-5.0) L Globulin 3.0 g/dL Albumin/Globulin Ratio 0.6 (1.0-2.7) L Critical Care - Objective Last 24 Hour Vital Signs Date Time Temp Pulse Resp B/P (MAP) Pulse Ox O2 Delivery O2 Flow Rate FiO2 08/10/19 18:00 61 18 113/50 (71) 97 08/10/19 17:00 59 18 115/53 (73) 98 08/10/19 16:50 60 18 30 08/10/19 16:00 98.9 58 18 116/54 (74) 98 08/10/19 16:00 Mechanical Ventilator 08/10/19 15:00 62 18 117/47 (70) 98 08/10/19 14:38 62 18 30 08/10/19 14:00 77 20 130/63 (85) 95 08/10/19 13:00 86 18 136/57 (83) 100 08/10/19 12:58 30 08/10/19 12:47 89 23 08/10/19 12:00 90 08/10/19 12:00 Mechanical Ventilator 08/10/19 12:00 99.3 90 20 155/67 (96) 98 08/10/19 11:00 87 19 141/61 (87) 98 08/10/19 10:48 88 20 30 08/10/19 10:47 30 08/10/19 10:00 89 19 145/64 (91) 98 08/10/19 09:00 80 18 166/69 (101) 96 08/10/19 09:00 30 08/10/19 08:56 95 08/10/19 08:56 78 16 30 08/10/19 08:00 67 08/10/19 08:00 Mechanical Ventilator 08/10/19 08:00 99.2 65 18 136/71 (92) 97 08/10/19 07:00 76 18 140/95 (110) 99 08/10/19 06:56 71 18 30 08/10/19 06:33 69 18 08/10/19 06:31 68 18 08/10/19 06:00 74 18 147/60 (89) 98 08/10/19 05:21 68 18 30 08/10/19 05:00 75 18 139/57 (84) 96 08/10/19 04:00 30 08/10/19 04:00 99.7 84 22 154/65 (94) 99 08/10/19 04:00 84 08/10/19 04:00 Mechanical Ventilator 08/10/19 03:17 79 20 30 08/10/19 03:00 79 17 150/66 (94) 97 08/10/19 02:00 72 18 150/66 (94) 98 08/10/19 01:00 78 18 162/78 (106) 99 08/10/19 01:00 82 18 30 08/10/19 00:00 Mechanical Ventilator 08/10/19 00:00 98.8 66 18 135/55 (81) 96 08/10/19 00:00 30 08/10/19 00:00 73 08/09/19 23:30 70 18 30 08/09/19 23:00 76 16 161/64 (96) 98 08/09/19 22:00 64 18 148/61 (90) 98 08/09/19 21:40 62 18 30 08/09/19 21:00 64 17 142/58 (86) 98 08/09/19 20:00 Mechanical Ventilator 08/09/19 20:00 98.0 64 17 148/63 (91) 97 08/09/19 20:00 30 08/09/19 20:00 66 08/09/19 19:29 63 18 30 08/09/19 19:00 67 18 142/60 (87) 96 Critical Care - Subjective ROS Limited/Unobtainable: No Condition: improving FI02: 30 Vent Support Breath Rate: 18 Vent Support Mode: AC Vent Tidal Volume: 650 Sputum Amount: Scant PEEP: 5.0 PIP: 38 Tube Feeding Amount: 55 I&O: Intake and Output 08/09/19 08/10/19 19:00 07:00 Intake Total 902 ml 1920 ml Output Total 775 ml 1805 ml Balance 127 ml 115 ml Free Water 150 ml 60 ml IV Total 92 ml 1200 ml Tube Feeding 660 ml 660 ml Output Urine Total 775 ml 1805 ml # Bowel Movements 2 ET-Tube: 7.5 ET Position: 23 Saeed Pierre MD Aug 10, 2019 18:24
[2019-08-10] MEDS: Atorvastatin 20mg tab ORAL SCH (20:30)
[2019-08-11] VITALS (24 sets, daily range): BP systolic 121–173; BP diastolic 54–96
[2019-08-11 05:40] LABS: BASOPHILS % (AUTO) 0.5 % (0.0-2.0); EOSINOPHILS % (AUTO) 3.6 % (0.0-3.0); HEMATOCRIT 34.2 % (42.0-52.0); HEMOGLOBIN 11.9 G/DL (14.2-18.0); LYMPHOCYTES % (AUTO) 15.6 % (20.0-45.0); MEAN CORPUSCULAR VOLUME 92 FL (80-99); MONOCYTES % (AUTO) 6.1 % (1.0-10.0); NEUTROPHILS % (AUTO) 74.2 % (45.0-75.0); PLATELET COUNT 249 K/UL (150-450); RED BLOOD COUNT 3.73 M/UL (4.70-6.10); RED CELL DISTRIBUTION WIDTH 12.6 % (11.6-14.8); WHITE BLOOD COUNT 7.1 K/UL (4.8-10.8)
[2019-08-11 06:14] LABS: ANION GAP 10 mmol/L (5-15); BLOOD UREA NITROGEN 27 mg/dL (7-18); CARBON DIOXIDE 23 MMOL/L (21-32); CHLORIDE 104 MMOL/L (98-107); POTASSIUM 3.7 MMOL/L (3.5-5.1); SODIUM 137 MMOL/L (136-145)
--- NOTE | 2019-08-11 07:30 | Progress Note ---
DATE: 08/10/2019 CARDIOLOGY PROGRESS NOTE SUBJECTIVE: Remains on ventilator support. Ongoing weaning efforts. Thin secretions. Monitored rhythm, sinus bradycardia with bundle-branch block. PHYSICAL EXAMINATION: VITAL SIGNS: Blood pressure 122/46, heart rate 62, and respiratory rate 18. LUNGS: Bilateral breath sounds. Few rhonchi. CARDIAC: Regular rhythm and rate. Normal S1 and paradoxically split S2. ABDOMEN: Soft. EXTREMITIES: No edema. LABORATORY DATA: White count 7.2 and hemoglobin 11.4. ABG - 7.42, 38, and 85. Potassium 3.9, BUN 33, and creatinine 1. Albumin 2.1. IMPRESSION: 1. Overall improved, cardiovascular parameters status post cardiopulmonary arrest. 2. Paroxysmal atrial fibrillation, now maintaining sinus rhythm. 3. Bradycardia, resolved, off beta-todd. PLAN: 1. Weaning efforts. 2. Maintain current cardiovascular regimen. 3. Diuresis to be assessed on a daily basis per cardiorenal function and volume status by clinical parameters. Saeed Sim M.D. DR: LIZETTE JOB#: [id number] CC:
--- NOTE | 2019-08-11 08:30 | Progress Note ---
DATE: 08/10/2019 SUBJECTIVE: The patient is awake, alert, afebrile, and hemodynamically stable. He has successful day today and he was able to be weaned for three hours off the respirator. PHYSICAL EXAMINATION: VITAL SIGNS: Blood pressure 121/50, his pulse is 59, respirations are 18, and temperature is 98.7. HEENT: Eyes were normal. ENT, mucous membranes were moist and intact. NECK: Supple with no JVD without lymph nodes. LUNGS: Clear. HEART: Normal sounds with regular beats. ABDOMEN: Soft and nontender with normal bowel sounds. EXTREMITIES: Warm without cyanosis, clubbing, or edema. LABORATORY AND DIAGNOSTIC DATA: His hemoglobin is 11.4, hematocrit 33.3 with MCV of 92, WBC of 7.2, and platelets are 286,000. His BUN and creatinine are 33 and 1.0 respectively. His sodium is 144, potassium 3.9, chloride 109, CO2 is 27. His proBNP was not done today. IMPRESSION: The patient is substantially less anxious than previously. Yesterday, he was given Lasix 40 mg IV push and was placed on Seroquel 50 mg daily and it was noticeable today in regard to be able anxiousness that was to be weaned. Repeat laboratory tests will be done in the a.m. Modesta Mulligan M.D. DR: ELIS JOB#: [id number] CC:
[2019-08-11] MEDS: Pantoprazole Inj IVP SCH ×2 (08:56→20:40)
[2019-08-11] MEDS: Thiamine 100mg tab ORAL SCH (08:56)
[2019-08-11] MEDS: Amiodarone 200mg tab ORAL SCH (08:56)
[2019-08-11] MEDS: Vitamin D 1000 IU Tab ORAL SCH (08:56)
[2019-08-11] MEDS: Heparin 5000 units/ml inj SUBQ SCH ×2 (08:58→20:42)
--- NOTE | 2019-08-11 10:20 | Pulmonolgy Critical Care Note ---
Critical Care - Asmt/Plan Problems: (1) Cardiopulmonary arrest (2) Nosocomial pneumonia (3) Acute respiratory failure (4) COPD (chronic obstructive pulmonary disease) (5) Atrial fibrillation (6) Dementia with behavioral disturbance (7) CAD (coronary artery disease) Respiratory: monitor respiratory rate, adjust FIO2, CXR, other - didn't tolerate weaning Cardiac: continue to monitor HR/BP Renal: F/U I&O, keep IV fluid Infectious Disease: check cultures, continue antibiotics, other Gastrointestinal: continue feedings/current rate Endocrine: monitor blood sugar Hematologic: monitor H/H, transfuse if hgb<8.5 Neurologic: PRN Morphine, keep patient comfortable Affect: PRN ativan Prophylaxis: Protonix Time Spent (Minutes): 40 Notes Reviewed: technical solutions director, 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, consultants, wrapper casermanager document - Objective Last 24 Hour Vital Signs Date Time Temp Pulse Resp B/P (MAP) Pulse Ox O2 Delivery O2 Flow Rate FiO2 08/11/19 09:00 86 27 146/96 (113) 97 08/11/19 08:51 80 27 30 08/11/19 08:00 30 08/11/19 08:00 Mechanical Ventilator 08/11/19 08:00 99.6 60 18 126/58 (80) 97 08/11/19 07:07 65 18 30 08/11/19 07:00 64 18 140/63 (88) 100 08/11/19 06:27 68 18 08/11/19 06:27 68 18 08/11/19 06:00 67 18 134/60 (84) 100 08/11/19 05:20 67 18 30 08/11/19 05:00 72 18 140/57 (84) 100 08/11/19 04:00 71 08/11/19 04:00 98.9 64 16 149/65 (93) 98 08/11/19 04:00 30 08/11/19 04:00 Mechanical Ventilator 08/11/19 03:00 60 18 121/57 (78) 98 08/11/19 02:51 59 18 30 08/11/19 02:00 61 18 128/57 (80) 99 08/11/19 01:00 65 17 141/60 (87) 97 08/11/19 00:48 63 18 30 08/11/19 00:08 59 3/9/20 00:00 98.8 59 17 123/59 (80) 96 08/11/19 00:00 30 08/11/19 00:00 Mechanical Ventilator 08/10/19 23:16 62 18 30 08/10/19 23:00 59 18 121/50 (73) 98 08/10/19 22:00 61 18 112/53 (72) 97 08/10/19 21:00 62 18 122/46 (71) 97 08/10/19 20:51 62 20 98 Mechanical Ventilator 30 08/10/19 20:51 62 18 30 08/10/19 20:00 98.7 63 18 126/110 (115) 99 08/10/19 20:00 30 08/10/19 20:00 66 08/10/19 20:00 Mechanical Ventilator 08/10/19 19:00 66 18 138/67 (90) 100 08/10/19 19:00 61 18 113/50 (71) 97 08/10/19 18:36 60 18 30 08/10/19 18:00 61 18 113/50 (71) 97 08/10/19 17:00 59 18 115/53 (73) 98 08/10/19 16:50 60 18 30 08/10/19 16:00 98.9 58 18 116/54 (74) 98 08/10/19 16:00 68 08/10/19 16:00 Mechanical Ventilator 08/10/19 15:00 62 18 117/47 (70) 98 08/10/19 14:38 62 18 30 08/10/19 14:00 77 20 130/63 (85) 95 08/10/19 13:00 86 18 136/57 (83) 100 08/10/19 12:58 30 08/10/19 12:47 89 23 08/10/19 12:00 90 08/10/19 12:00 Mechanical Ventilator 08/10/19 12:00 99.3 90 20 155/67 (96) 98 08/10/19 11:00 87 19 141/61 (87) 98 08/10/19 10:48 88 20 30 08/10/19 10:47 30 Status: awake Condition: critical HEENT: atraumatic Neck: full ROM Lungs: chest wall tender Heart: HR/BP stable, regular Abdomen: non-tender Extremities: no C/C/E Critical Care - Subjective ROS Limited/Unobtainable: Yes Interval Events: not tolerating weaning EKG Rhythm: Sinus Rhythm FI02: 30 Vent Support Breath Rate: 18 Vent Support Mode: AC Vent Tidal Volume: 650 Sputum Amount: Scant PEEP: 5.0 PIP: 42 Tube Feeding Amount: 0 I&O: Intake and Output 08/10/19 08/11/19 19:00 07:00 Intake Total 1795 ml 1600 ml Output Total 900 ml 965 ml Balance 895 ml 635 ml Free Water 100 ml 60 ml IV Total 1200 ml 1100 ml Tube Feeding 495 ml 440 ml Output Urine Total 900 ml 965 ml # Bowel Movements 2 1 ET-Tube: 7.5 ET Position: 23 Labs: Laboratory Tests Test 08/10/19 10:40 08/11/19 03:30 Arterial Blood pH 7.429 (7.350-7.450) Arterial Blood Partial Pressure CO2 38.4 mmHg (35.0-45.0) Arterial Blood Partial Pressure O2 85.3 mmHg (75.0-100.0) Arterial Blood HCO3 24.9 mmol/L (22.0-26.0) Arterial Blood Oxygen Saturation 95.7 % (95-100) Arterial Blood Base Excess 0.6 (-2-2) Joe Test Positive White Blood Count 7.1 K/UL (4.8-10.8) Red Blood Count 3.73 M/UL (4.70-6.10) L Hemoglobin 11.9 G/DL (14.2-18.0) L Hematocrit 34.2 % (42.0-52.0) L Mean Corpuscular Volume 92 FL (80-99) Mean Corpuscular Hemoglobin 31.9 PG (27.0-31.0) H Mean Corpuscular Hemoglobin Concent 34.7 G/DL (32.0-36.0) Red Cell Distribution Width 12.6 % (11.6-14.8) Platelet Count 249 K/UL (150-450) Mean Platelet Volume 5.9 FL (6.5-10.1) L Neutrophils (%) (Auto) 74.2 % (45.0-75.0) Lymphocytes (%) (Auto) 15.6 % (20.0-45.0) L Monocytes (%) (Auto) 6.1 % (1.0-10.0) Eosinophils (%) (Auto) 3.6 % (0.0-3.0) H Basophils (%) (Auto) 0.5 % (0.0-2.0) Sodium Level 137 MMOL/L (136-145) Potassium Level 3.7 MMOL/L (3.5-5.1) Chloride Level 104 MMOL/L (98-107) Carbon Dioxide Level 23 MMOL/L (21-32) Anion Gap 10 mmol/L (5-15) Blood Urea Nitrogen 27 mg/dL (7-18) H Creatinine 1.0 MG/DL (0.55-1.30) Estimat Glomerular Filtration Rate > 60 mL/min (>60) Glucose Level 116 MG/DL (74-106) H Calcium Level 8.0 MG/DL (8.5-10.1) L Phosphorus Level Pending Magnesium Level Pending Total Bilirubin Pending Direct Bilirubin Pending Aspartate Amino Transf (AST/SGOT) Pending Alanine Aminotransferase (ALT/SGPT) Pending Alkaline Phosphatase Pending Pro-B-Type Natriuretic Peptide 4047 pg/mL (0-125) H Total Protein Pending Albumin Pending Nicole Graves MD Aug 11, 2019 10:20
[2019-08-11 10:39] LABS: ALANINE AMINOTRANSFERASE 82 U/L (12-78); ALKALINE PHOSPHATASE 78 U/L (46-116); ASPARTATE AMINO TRANSFERASE 31 U/L (15-37); BILIRUBIN,TOTAL 0.4 MG/DL (0.2-1.0); PHOSPHORUS 3.3 MG/DL (2.5-4.9)
[2019-08-11 10:48] LABS: BILIRUBIN,DIRECT < 0.1 MG/DL (0.0-0.3)
--- NOTE | 2019-08-11 12:23 | Nephrology Progress Note ---
Assessment/Plan Problem List: (1) AUREA (acute kidney injury) (2) Cardiopulmonary arrest (3) Respiratory failure (4) Cardiomyopathy (5) Obesity (BMI 30.0-34.9) (6) DMII (diabetes mellitus, type 2) Assessment Acute Renal Failure : AUREA Most likely due to cardiorespiratory arrest and episode of hypotension. Patient also has cardiomyopathy with Ej Fx of 40 % on admission Obese : BMI 34.4 ? DM Other Dx (1) Cardiopulmonary arrest (2) Nosocomial pneumonia (3) Acute respiratory failure (4) COPD (chronic obstructive pulmonary disease) (5) Atrial fibrillation (6) Dementia with behavioral disturbance (7) CAD (coronary artery disease) Plan Stable from Renal stand now- Aim to wean from ventilator Monitor renal parameters. Serum creatinine improved Monitor urine output. Urine output improved. Avoid nephrotoxics. Weaning as possible. Remains intubated at this time. Correct electrolyte imbalances. Change tube feeding to Glucerna. Subjective ROS Limited/Unobtainable: No Objective Objective Last 24 Hour Vital Signs Date Time Temp Pulse Resp B/P (MAP) Pulse Ox O2 Delivery O2 Flow Rate FiO2 08/11/19 12:00 30 08/11/19 12:00 99.4 81 18 136/60 (85) 98 08/11/19 12:00 Mechanical Ventilator 08/11/19 12:00 81 18 136/60 (85) 08/11/19 11:20 100 18 30 08/11/19 11:00 98 21 132/54 (80) 96 08/11/19 10:05 107 24 30 08/11/19 10:00 110 26 173/63 (99) 99 08/11/19 09:00 86 27 146/96 (113) 97 08/11/19 08:55 98 08/11/19 08:55 84 24 30 08/11/19 08:51 80 27 30 08/11/19 08:00 30 08/11/19 08:00 Mechanical Ventilator 08/11/19 08:00 99.6 60 18 126/58 (80) 97 08/11/19 07:45 64 08/11/19 07:07 65 18 30 08/11/19 07:00 64 18 140/63 (88) 100 08/11/19 06:27 68 18 08/11/19 06:27 68 18 08/11/19 06:00 67 18 134/60 (84) 100 08/11/19 05:20 67 18 30 08/11/19 05:00 72 18 140/57 (84) 100 08/11/19 04:00 71 08/11/19 04:00 98.9 64 16 149/65 (93) 98 08/11/19 04:00 30 08/11/19 04:00 Mechanical Ventilator 08/11/19 03:00 60 18 121/57 (78) 98 08/11/19 02:51 59 18 30 08/11/19 02:00 61 18 128/57 (80) 99 08/11/19 01:00 65 17 141/60 (87) 97 08/11/19 00:48 63 18 30 08/11/19 00:08 59 08/11/19 00:00 98.8 59 17 123/59 (80) 96 08/11/19 00:00 30 08/11/19 00:00 Mechanical Ventilator 08/10/19 23:16 62 18 30 08/10/19 23:00 59 18 121/50 (73) 98 08/10/19 22:00 61 18 112/53 (72) 97 08/10/19 21:00 62 18 122/46 (71) 97 08/10/19 20:51 62 20 98 Mechanical Ventilator 30 08/10/19 20:51 62 18 30 08/10/19 20:00 98.7 63 18 126/110 (115) 99 08/10/19 20:00 30 08/10/19 20:00 66 08/10/19 20:00 Mechanical Ventilator 08/10/19 19:00 66 18 138/67 (90) 100 08/10/19 19:00 61 18 113/50 (71) 97 08/10/19 18:36 60 18 30 08/10/19 18:00 61 18 113/50 (71) 97 08/10/19 17:00 59 18 115/53 (73) 98 08/10/19 16:50 60 18 30 08/10/19 16:00 98.9 58 18 116/54 (74) 98 08/10/19 16:00 68 08/10/19 16:00 Mechanical Ventilator 08/10/19 15:00 62 18 117/47 (70) 98 08/10/19 14:38 62 18 30 08/10/19 14:00 77 20 130/63 (85) 95 08/10/19 13:00 86 18 136/57 (83) 100 08/10/19 12:58 30 08/10/19 12:47 89 23 Intake and Output 08/10/19 08/11/19 19:00 07:00 Intake Total 1795 ml 1600 ml Output Total 900 ml 965 ml Balance 895 ml 635 ml Free Water 100 ml 60 ml IV Total 1200 ml 1100 ml Tube Feeding 495 ml 440 ml Output Urine Total 900 ml 965 ml # Bowel Movements 2 1 Laboratory Tests 08/11/19 03:30: White Blood Count 7.1, Red Blood Count 3.73L, Hemoglobin 11.9L, Hematocrit 34.2L , Mean Corpuscular Volume 92, Mean Corpuscular Hemoglobin 31.9H, Mean Corpuscular Hemoglobin Concent 34.7, Red Cell Distribution Width 12.6, Platelet Count 249, Mean Platelet Volume 5.9L, Neutrophils (%) (Auto) 74.2, Lymphocytes ( %) (Auto) 15.6L, Monocytes (%) (Auto) 6.1, Eosinophils (%) (Auto) 3.6H, Basophils (%) (Auto) 0.5, Sodium Level 137, Potassium Level 3.7, Chloride Level 104, Carbon Dioxide Level 23, Anion Gap 10, Blood Urea Nitrogen 27H, Creatinine 1.0, Estimat Glomerular Filtration Rate > 60, Glucose Level 116H, Calcium Level 8.0L, Phosphorus Level 3.3, Magnesium Level 2.0, Total Bilirubin 0.4, Direct Bilirubin < 0.1, Aspartate Amino Transf (AST/SGOT) 31, Alanine Aminotransferase (ALT/SGPT) 82H, Alkaline Phosphatase 78, Pro-B-Type Natriuretic Peptide 4047H, Total Protein 4.9L, Albumin 2.0L Height (Feet): 5 Height (Inches): 6.00 Weight (Pounds): 219 General Appearance: no apparent distress EENT: other - Intubated on ventilator Cardiovascular: tachycardia Respiratory/Chest: decreased breath sounds Objective no change Yunior Sexton MD Aug 11, 2019 12:23
--- NOTE | 2019-08-11 13:09 | Diagnostic Imaging Report ---
Indication: Abdominal pain Comparison: 08/01/2019 Single view of the abdomen obtained Findings: The NG tube is projected over the stomach and is in good position. Both proximal and distal ports are within the stomach lumen. Bowel gas pattern is nonspecific. No mass, ectopic calcifications, or abnormal gas collections are identified. The bones are unremarkable. Impression: No acute findings
--- NOTE | 2019-08-11 13:39 | Diagnostic Imaging Report ---
Indication: Dyspnea Comparison: 08/07/2019 A single view chest radiograph was obtained. Findings: Mild pulmonary vascular congestion present. Endotracheal tube remains satisfactory. NG tube is in good position. IMPRESSION: No change from the previous examination. Suspected mild pulmonary vascular congestion
--- NOTE | 2019-08-11 13:58 | Infectious Diseases Prog Note ---
Assessment/Plan Assessment/Plan ASSESSMENT: The patient is a 79-year-old male with: Leukocytosis;SP sepsis, Sp Pneumonia ( probable asp), Sp RX - CXR: 1. Streaky opacities in the right lower lung may represent atelectasis versus scarring. Left basilar opacity may represent atelectasis. Component of pneumonia is not excluded. Pulmonary vasculature congestion. -08/01 ucx NTD sp cx: nl anastacio Urinary tract infection, SP Rx Afebrile. 07/31 Sp Code blue and intubation Hyperlipidemia. COPD. History of GERD. History of encephalopathy. History of CAD/NM. History of cardiomyopathy. 7. Hypertension. PLAN: will monitor pt off of AB Rx 08/07 SP Zosyn and IV Vanco # / , -08/01 SP Rocephin day # 10 - 07/31 sp sp Dox # 6 Monitor CBC. Monitor BMP. Monitor chest x-ray cont ICU Support . Subjective Allergies: Coded Allergies: No Known Allergies (Unverified , 06/03/17) Subjective no pressors Objective Vital Signs Last 24 Hour Vital Signs Date Time Temp Pulse Resp B/P (MAP) Pulse Ox O2 Delivery O2 Flow Rate FiO2 08/11/19 13:00 71 18 141/61 (87) 08/11/19 12:44 74 18 30 08/11/19 12:00 30 08/11/19 12:00 99.4 81 18 136/60 (85) 98 08/11/19 12:00 Mechanical Ventilator 08/11/19 12:00 81 18 136/60 (85) 08/11/19 11:20 100 18 30 08/11/19 11:00 98 21 132/54 (80) 96 08/11/19 10:05 107 24 30 08/11/19 10:00 110 26 173/63 (99) 99 08/11/19 09:00 86 27 146/96 (113) 97 08/11/19 08:55 98 08/11/19 08:55 84 24 30 08/11/19 08:51 80 27 30 08/11/19 08:00 30 08/11/19 08:00 Mechanical Ventilator 08/11/19 08:00 99.6 60 18 126/58 (80) 97 08/11/19 07:45 64 08/11/19 07:07 65 18 30 08/11/19 07:00 64 18 140/63 (88) 100 08/11/19 06:27 68 18 08/11/19 06:27 68 18 08/11/19 06:00 67 18 134/60 (84) 100 08/11/19 05:20 67 18 30 08/11/19 05:00 72 18 140/57 (84) 100 08/11/19 04:00 71 08/11/19 04:00 98.9 64 16 149/65 (93) 98 08/11/19 04:00 30 08/11/19 04:00 Mechanical Ventilator 08/11/19 03:00 60 18 121/57 (78) 98 08/11/19 02:51 59 18 30 08/11/19 02:00 61 18 128/57 (80) 99 08/11/19 01:00 65 17 141/60 (87) 97 08/11/19 00:48 63 18 30 08/11/19 00:08 59 08/11/19 00:00 98.8 59 17 123/59 (80) 96 08/11/19 00:00 30 08/11/19 00:00 Mechanical Ventilator 08/10/19 23:16 62 18 30 08/10/19 23:00 59 18 121/50 (73) 98 08/10/19 22:00 61 18 112/53 (72) 97 08/10/19 21:00 62 18 122/46 (71) 97 08/10/19 20:51 62 20 98 Mechanical Ventilator 30 08/10/19 20:51 62 18 30 08/10/19 20:00 98.7 63 18 126/110 (115) 99 08/10/19 20:00 30 08/10/19 20:00 66 08/10/19 20:00 Mechanical Ventilator 08/10/19 19:00 66 18 138/67 (90) 100 08/10/19 19:00 61 18 113/50 (71) 97 08/10/19 18:36 60 18 30 08/10/19 18:00 61 18 113/50 (71) 97 08/10/19 17:00 59 18 115/53 (73) 98 08/10/19 16:50 60 18 30 08/10/19 16:00 98.9 58 18 116/54 (74) 98 3/8/20 16:00 68 08/10/19 16:00 Mechanical Ventilator 08/10/19 15:00 62 18 117/47 (70) 98 08/10/19 14:38 62 18 30 08/10/19 14:00 77 20 130/63 (85) 95 Height (Feet): 5 Height (Inches): 6.00 Weight (Pounds): 219 Respiratory/Chest: lungs clear Cardiovascular: regularly irregular Abdomen: non distended Extremities: no cyanosis Laboratory Tests Test 08/11/19 03:30 White Blood Count 7.1 K/UL (4.8-10.8) Red Blood Count 3.73 M/UL (4.70-6.10) L Hemoglobin 11.9 G/DL (14.2-18.0) L Hematocrit 34.2 % (42.0-52.0) L Mean Corpuscular Volume 92 FL (80-99) Mean Corpuscular Hemoglobin 31.9 PG (27.0-31.0) H Mean Corpuscular Hemoglobin Concent 34.7 G/DL (32.0-36.0) Red Cell Distribution Width 12.6 % (11.6-14.8) Platelet Count 249 K/UL (150-450) Mean Platelet Volume 5.9 FL (6.5-10.1) L Neutrophils (%) (Auto) 74.2 % (45.0-75.0) Lymphocytes (%) (Auto) 15.6 % (20.0-45.0) L Monocytes (%) (Auto) 6.1 % (1.0-10.0) Eosinophils (%) (Auto) 3.6 % (0.0-3.0) H Basophils (%) (Auto) 0.5 % (0.0-2.0) Sodium Level 137 MMOL/L (136-145) Potassium Level 3.7 MMOL/L (3.5-5.1) Chloride Level 104 MMOL/L (98-107) Carbon Dioxide Level 23 MMOL/L (21-32) Anion Gap 10 mmol/L (5-15) Blood Urea Nitrogen 27 mg/dL (7-18) H Creatinine 1.0 MG/DL (0.55-1.30) Estimat Glomerular Filtration Rate > 60 mL/min (>60) Glucose Level 116 MG/DL (74-106) H Calcium Level 8.0 MG/DL (8.5-10.1) L Phosphorus Level 3.3 MG/DL (2.5-4.9) Magnesium Level 2.0 MG/DL (1.8-2.4) Total Bilirubin 0.4 MG/DL (0.2-1.0) Direct Bilirubin < 0.1 MG/DL (0.0-0.3) Aspartate Amino Transf (AST/SGOT) 31 U/L (15-37) Alanine Aminotransferase (ALT/SGPT) 82 U/L (12-78) H Alkaline Phosphatase 78 U/L (46-116) Pro-B-Type Natriuretic Peptide 4047 pg/mL (0-125) H Total Protein 4.9 G/DL (6.4-8.2) L Albumin 2.0 G/DL (3.4-5.0) L Current Medications Medications (Trade) Dose Ordered Sig/[facility] Route PRN Reason Start Time Stop Time Status Last Admin Dose Admin Acetaminophen (Tylenol) 650 mg Q4H PRN ORAL Mild Pain/Temp > 100.5 08/01/19 02:00 08/20/19 17:59 08/05/19 17:37 Acetaminophen (Tylenol) 1,000 mg Q6H PRN ORAL Moderate Pain (Pain Scale 4-6) 08/01/19 00:00 08/20/19 17:59 08/03/19 10:34 Amiodarone HCl (Cordarone) 200 mg DAILY ORAL 08/08/19 09:00 09/07/19 08:59 08/11/19 08:56 Atorvastatin Calcium (Lipitor) 40 mg BEDTIME ORAL 08/01/19 21:00 08/20/19 20:59 08/10/19 20:30 Clopidogrel Bisulfate (Plavix) 75 mg DAILY ORAL 08/01/19 09:00 08/21/19 08:59 08/11/19 08:56 Dextrose 1,000 ml @ 100 mls/hr Q10H IV 08/09/19 18:02 09/08/19 18:01 08/11/19 10:01 Heparin Sodium (Porcine) (Heparin 5000 units/ml) 5,000 units EVERY 12 HOURS SUBQ 08/01/19 09:00 08/20/19 20:59 08/11/19 08:58 Hydralazine HCl (Apresoline) 10 mg Q6H PRN IV For High Blood Pressure 08/01/19 00:15 08/25/19 12:14 Lorazepam (Ativan 2mg/ml 1ml) 0.5 mg Q2H PRN IV For Anxiety 08/07/19 11:30 08/14/19 11:29 08/09/19 00:47 Olanzapine (ZyPREXA) 5 mg BID ORAL 08/01/19 09:00 08/30/19 14:23 08/11/19 08:56 Ondansetron HCl (Zofran) 4 mg Q4H PRN IVP Nausea & Vomiting 08/01/19 02:30 08/21/19 18:29 Pantoprazole (Protonix) 40 mg Q12HR IVP 08/03/19 21:00 08/31/19 08:59 08/11/19 08:56 Quetiapine Fumarate (SEROqueL) 50 mg QHS ORAL 08/09/19 21:00 09/08/19 20:59 08/09/19 20:36 Thiamine HCl (Vitamin B1) 100 mg DAILY ORAL 08/01/19 09:00 08/21/19 08:59 08/11/19 08:56 Vitamin D (Vitamin D) 5,000 intlu DAILY ORAL 08/01/19 09:00 08/21/19 08:59 08/11/19 08:56 Angel Rudolph MD Aug 11, 2019 13:58
[2019-08-11] MEDS: Atorvastatin 20mg tab ORAL SCH (20:40)
--- NOTE | 2019-08-11 23:00 | Progress Note ---
DATE: 08/11/2019 SUBJECTIVE: The patient is awake, alert, afebrile, hemodynamically stable. He has been on vent. Again, we attempted weaning today; however, he was able to be ventilator free only for 1 hour. After 1 hour, he developed tachycardia to 150 and the weaning aborted. PHYSICAL EXAMINATION: VITAL SIGNS: Blood pressure is 163/78, his pulse is 80, respirations are 19, temperature 99.4. HEENT: Eyes were normal. ENT, mucous membranes were moist and intact. NECK: Supple with no JVD without lymph nodes. LUNGS: Clear. HEART: Normal sounds with regular beat. ABDOMEN: Soft and nontender with normal bowel sounds. EXTREMITIES: Warm without cyanosis, clubbing, or edema. LABORATORY AND DIAGNOSTIC DATA: His hemoglobin is 11.9, hematocrit 34.2 with MCV of 92, WBC 7.1, and platelets are 249. His BUN and creatinine is 27 and 1.0 respectively. Sodium is 137, potassium 3.7, chloride 104, CO2 is 23. His calcium is 8.0, his phosphorus is 3.0, and magnesium is 2.0. Chest x-ray verified. No acute findings. but intact. Repeat laboratory tests will be done in the a.m. Modesta Mulligan M.D. DR: ZACHARY JOB#: [id number] CC:
[2019-08-12] VITALS (25 sets, daily range): BP systolic 101–154; BP diastolic 55–87
--- NOTE | 2019-08-12 04:59 | Progress Note ---
DATE: 08/11/2019 SUBJECTIVE: The patient is doing better, more alert and engaged. He is weaning off from the ventilator. The patient is having of agitation, cognitive impairment. MENTAL STATUS EXAMINATION: The patient is alert, responsive, answering the questions. He is oriented to date. The patient still on bilateral soft restraints. Mood is anxious. Affect is flat. Thought process, there is a paucity of thought content. Thought content, no suicidal or homicidal ideation. Cognition is impaired. Insight and judgment is impaired. ASSESSMENT: Stabilizing. PLAN: 1. Zyprexa 5 mg b.i.d. 2. Discontinue the Seroquel at bedtime. 3. Ativan as needed. 4. We will continue follow and readjust the medications. Duarte Vizcarra M.D. DR: Claus JOB#: [id number] CC: IMANI
--- NOTE | 2019-08-12 05:00 | Progress Note ---
DATE: 08/11/2019 CARDIOLOGY PROGRESS NOTE SUBJECTIVE: The patient is on ventilator support. Weaning efforts in progress. PHYSICAL EXAMINATION: VITAL SIGNS: Blood pressure 146/96, heart rate 86, respiratory rate 27, and temperature 99.6. LUNGS: Coarse breath sounds and rhonchi. Thin secretions. CARDIAC: Regular rhythm and rate. Normal S1 and paradoxically split S2. No new murmur. Monitored rhythm, sinus with bundle-branch block and occasional PVCs and sinus bradycardia. ABDOMEN: Soft. G-tube intact. EXTREMITIES: Trace dependent edema. LABORATORY AND DIAGNOSTIC DATA: White count 7 and hemoglobin 11.9. Magnesium 2. Albumin 2. Pro-natriuretic peptide 4000. BUN 27, creatinine 1, and potassium 3.7. Chest x-ray, no interval change. Mild pulmonary vascular congestion. IMPRESSION: Remains critical and guarded. Condition relatively unchanged. PLAN: 1. Diuresis added. 2. Other cardiovascular regimen as is. 3. Weaning efforts. 4. We will continue with negative fluid balance. 5. Maintenance dose amiodarone for arrhythmia suppression and no need for beta-blockers. 6. Decrease neuroleptics as able. Saeed Sim M.D. DR: Eugenio JOB#: [id number] CC:
[2019-08-12 05:21] LABS: BASOPHILS % (AUTO) 0.5 % (0.0-2.0); EOSINOPHILS % (AUTO) 1.7 % (0.0-3.0); HEMOGLOBIN 12.7 G/DL (14.2-18.0); LYMPHOCYTES % (AUTO) 10.2 % (20.0-45.0); MEAN CORPUSCULAR VOLUME 92 FL (80-99); NEUTROPHILS % (AUTO) 81.7 % (45.0-75.0); PLATELET COUNT 277 K/UL (150-450); RED BLOOD COUNT 4.02 M/UL (4.70-6.10); RED CELL DISTRIBUTION WIDTH 12.6 % (11.6-14.8); WHITE BLOOD COUNT 11.4 K/UL (4.8-10.8)
[2019-08-12 05:52] LABS: ANION GAP 7 mmol/L (5-15); BLOOD UREA NITROGEN 19 mg/dL (7-18); CALCIUM 8.3 MG/DL (8.5-10.1); CARBON DIOXIDE 27 MMOL/L (21-32); CHLORIDE 102 MMOL/L (98-107); CREATININE 0.9 MG/DL (0.55-1.30); POTASSIUM 3.8 MMOL/L (3.5-5.1); SODIUM 136 MMOL/L (136-145)
[2019-08-12] MEDS: Vitamin D 1000 IU Tab ORAL SCH (10:07)
[2019-08-12] MEDS: Amiodarone 200mg tab ORAL SCH (10:08)
[2019-08-12] MEDS: Pantoprazole Inj IVP SCH ×2 (10:08→21:04)
[2019-08-12] MEDS: Thiamine 100mg tab ORAL SCH (10:10)
[2019-08-12] MEDS: Heparin 5000 units/ml inj SUBQ SCH ×2 (10:13→21:05)
--- NOTE | 2019-08-12 11:08 | Pulmonolgy Critical Care Note ---
Critical Care - Asmt/Plan Problems: (1) Acute respiratory failure (2) Cardiopulmonary arrest (3) Cardiac LV ejection fraction 40% (4) Nosocomial pneumonia (5) Atrial fibrillation (6) Pulmonary edema (7) COPD (chronic obstructive pulmonary disease) (8) CAD (coronary artery disease) (9) Dementia with behavioral disturbance Respiratory: monitor respiratory rate, adjust FIO2, CXR Cardiac: continue pressors, continue to monitor HR/BP Renal: F/U I&O Infectious Disease: continue antibiotics Gastrointestinal: continue feedings/current rate Endocrine: monitor blood sugar Hematologic: monitor H/H, transfuse if hgb<8.5 Neurologic: PRN Ativan, PRN Morphine 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, 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, consultants Critical Care - Objective Last 24 Hour Vital Signs Date Time Temp Pulse Resp B/P (MAP) Pulse Ox O2 Delivery O2 Flow Rate FiO2 08/12/19 09:25 100 08/12/19 09:24 88 18 30 08/12/19 07:10 89 26 30 08/12/19 07:00 87 18 146/65 (92) 100 08/12/19 06:30 68 18 08/12/19 06:30 92 18 08/12/19 06:00 84 18 150/87 (108) 100 08/12/19 05:20 86 21 30 08/12/19 05:00 78 18 149/66 (93) 100 08/12/19 04:00 Mechanical Ventilator 08/12/19 04:00 98.4 84 19 137/61 (86) 100 08/12/19 04:00 81 08/12/19 04:00 30 08/12/19 03:48 88 21 30 08/12/19 03:00 88 20 150/65 (93) 97 08/12/19 02:00 30 08/12/19 02:00 88 20 154/68 (96) 98 08/12/19 01:40 78 17 30 08/12/19 01:00 72 18 140/60 (86) 98 08/12/19 00:00 30 08/12/19 00:00 98.8 71 18 149/66 (93) 97 08/12/19 00:00 71 08/12/19 00:00 Mechanical Ventilator 08/11/19 23:30 74 18 30 08/11/19 23:00 70 18 142/66 (91) 99 08/11/19 22:00 74 18 150/68 (95) 99 08/11/19 21:05 77 18 30 08/11/19 21:00 72 18 155/67 (96) 100 08/11/19 20:00 Mechanical Ventilator 08/11/19 20:00 73 18 154/75 (101) 100 08/11/19 20:00 72 08/11/19 19:20 77 18 30 08/11/19 19:00 80 19 163/78 (106) 97 08/11/19 18:00 76 18 154/66 (95) 97 08/11/19 17:11 70 18 30 08/11/19 17:00 75 18 142/61 (88) 98 08/11/19 16:00 30 08/11/19 16:00 99.4 70 18 132/64 (86) 97 08/11/19 16:00 Mechanical Ventilator 08/11/19 15:42 70 08/11/19 15:00 72 19 136/78 (97) 97 08/11/19 14:41 79 19 30 08/11/19 14:00 70 19 158/75 (102) 97 08/11/19 13:00 71 18 141/61 (87) 08/11/19 12:44 74 18 30 08/11/19 12:00 30 08/11/19 12:00 99.4 81 18 136/60 (85) 98 08/11/19 12:00 Mechanical Ventilator 08/11/19 12:00 81 18 136/60 (85) 08/11/19 11:41 83 08/11/19 11:20 100 18 30 Status: awake, obtunded Condition: critical HEENT: atraumatic, normocephalic Neck: full ROM Lungs: chest wall tender Heart: HR/BP stable Abdomen: non-tender Extremities: no C/C/E Critical Care - Subjective ROS Limited/Unobtainable: No Condition: critical EKG Rhythm: Sinus Rhythm FI02: 30 Vent Support Breath Rate: 18 Vent Support Mode: AC Vent Tidal Volume: 650 Sputum Amount: Moderate PEEP: 5.0 PIP: 39 Tube Feeding Amount: 55 I&O: Intake and Output 08/11/19 08/12/19 19:00 07:00 Intake Total 1385 ml 1070 ml Output Total 1310 ml 3070 ml Balance 75 ml -2000 ml Free Water 110 ml IV Total 1000 ml 300 ml Tube Feeding 385 ml 660 ml Output Urine Total 1310 ml 3070 ml # Bowel Movements 1 2 CXR: pulmonary congestion ET-Tube: 7.5 ET Position: 23 Labs: Laboratory Tests Test 08/12/19 04:35 White Blood Count 11.4 K/UL (4.8-10.8) #H Red Blood Count 4.02 M/UL (4.70-6.10) L Hemoglobin 12.7 G/DL (14.2-18.0) L Hematocrit 37.0 % (42.0-52.0) L Mean Corpuscular Volume 92 FL (80-99) Mean Corpuscular Hemoglobin 31.5 PG (27.0-31.0) H Mean Corpuscular Hemoglobin Concent 34.2 G/DL (32.0-36.0) Red Cell Distribution Width 12.6 % (11.6-14.8) Platelet Count 277 K/UL (150-450) Mean Platelet Volume 5.8 FL (6.5-10.1) L Neutrophils (%) (Auto) 81.7 % (45.0-75.0) H Lymphocytes (%) (Auto) 10.2 % (20.0-45.0) L Monocytes (%) (Auto) 6.0 % (1.0-10.0) Eosinophils (%) (Auto) 1.7 % (0.0-3.0) Basophils (%) (Auto) 0.5 % (0.0-2.0) Sodium Level 136 MMOL/L (136-145) Potassium Level 3.8 MMOL/L (3.5-5.1) Chloride Level 102 MMOL/L (98-107) Carbon Dioxide Level 27 MMOL/L (21-32) Anion Gap 7 mmol/L (5-15) Blood Urea Nitrogen 19 mg/dL (7-18) H Creatinine 0.9 MG/DL (0.55-1.30) Estimat Glomerular Filtration Rate > 60 mL/min (>60) Glucose Level 123 MG/DL (74-106) H Calcium Level 8.3 MG/DL (8.5-10.1) L Nicole Graves MD Aug 12, 2019 11:08
--- NOTE | 2019-08-12 12:21 | Nephrology Progress Note ---
Assessment/Plan Problem List: (1) AUREA (acute kidney injury) (2) Cardiopulmonary arrest (3) Respiratory failure (4) Cardiomyopathy (5) Obesity (BMI 30.0-34.9) (6) DMII (diabetes mellitus, type 2) Assessment Acute Renal Failure : AUREA Most likely due to cardiorespiratory arrest and episode of hypotension. Patient also has cardiomyopathy with Ej Fx of 40 % on admission Obese : BMI 34.4 ? DM Other Dx (1) Cardiopulmonary arrest (2) Nosocomial pneumonia (3) Acute respiratory failure (4) COPD (chronic obstructive pulmonary disease) (5) Atrial fibrillation (6) Dementia with behavioral disturbance (7) CAD (coronary artery disease) Plan Stable from Renal stand now- Aim to wean from ventilator Monitor renal parameters. Serum creatinine improved Monitor urine output. Urine output improved. Avoid nephrotoxics. Weaning as possible. Remains intubated at this time. Correct electrolyte imbalances. Change tube feeding to Glucerna. Subjective ROS Limited/Unobtainable: Yes Objective Objective Last 24 Hour Vital Signs Date Time Temp Pulse Resp B/P (MAP) Pulse Ox O2 Delivery O2 Flow Rate FiO2 08/12/19 12:00 99.0 109 24 101/66 (78) 99 08/12/19 12:00 114 08/12/19 11:23 100.4 08/12/19 11:00 109 24 133/79 (97) 100 08/12/19 10:00 102.6 99 25 148/74 (98) 100 08/12/19 09:25 100 08/12/19 09:24 88 18 30 08/12/19 09:00 101.6 91 18 134/65 (88) 100 08/12/19 08:00 90 08/12/19 08:00 90 20 145/72 (96) 100 08/12/19 07:10 89 26 30 08/12/19 07:00 87 18 146/65 (92) 100 08/12/19 06:30 68 18 08/12/19 06:30 92 18 08/12/19 06:00 84 18 150/87 (108) 100 08/12/19 05:20 86 21 30 08/12/19 05:00 78 18 149/66 (93) 100 08/12/19 04:00 Mechanical Ventilator 08/12/19 04:00 98.4 84 19 137/61 (86) 100 08/12/19 04:00 81 3/10/20 04:00 30 08/12/19 03:48 88 21 30 08/12/19 03:00 88 20 150/65 (93) 97 08/12/19 02:00 30 08/12/19 02:00 88 20 154/68 (96) 98 08/12/19 01:40 78 17 30 08/12/19 01:00 72 18 140/60 (86) 98 08/12/19 00:00 30 08/12/19 00:00 98.8 71 18 149/66 (93) 97 08/12/19 00:00 71 08/12/19 00:00 Mechanical Ventilator 08/11/19 23:30 74 18 30 08/11/19 23:00 70 18 142/66 (91) 99 08/11/19 22:00 74 18 150/68 (95) 99 08/11/19 21:05 77 18 30 08/11/19 21:00 72 18 155/67 (96) 100 08/11/19 20:00 Mechanical Ventilator 08/11/19 20:00 73 18 154/75 (101) 100 08/11/19 20:00 72 08/11/19 19:20 77 18 30 08/11/19 19:00 80 19 163/78 (106) 97 08/11/19 18:00 76 18 154/66 (95) 97 08/11/19 17:11 70 18 30 08/11/19 17:00 75 18 142/61 (88) 98 08/11/19 16:00 30 08/11/19 16:00 99.4 70 18 132/64 (86) 97 08/11/19 16:00 Mechanical Ventilator 08/11/19 15:42 70 08/11/19 15:00 72 19 136/78 (97) 97 08/11/19 14:41 79 19 30 08/11/19 14:00 70 19 158/75 (102) 97 08/11/19 13:00 71 18 141/61 (87) 08/11/19 12:44 74 18 30 Intake and Output 08/11/19 08/12/19 19:00 07:00 Intake Total 1385 ml 1070 ml Output Total 1310 ml 3070 ml Balance 75 ml -2000 ml Free Water 110 ml IV Total 1000 ml 300 ml Tube Feeding 385 ml 660 ml Output Urine Total 1310 ml 3070 ml # Bowel Movements 1 2 Laboratory Tests 08/12/19 04:35: White Blood Count 11.4#H, Red Blood Count 4.02L, Hemoglobin 12.7L, Hematocrit 37.0L, Mean Corpuscular Volume 92, Mean Corpuscular Hemoglobin 31.5H, Mean Corpuscular Hemoglobin Concent 34.2, Red Cell Distribution Width 12.6, Platelet Count 277, Mean Platelet Volume 5.8L, Neutrophils (%) (Auto) 81.7H, Lymphocytes (%) (Auto) 10.2L, Monocytes (%) (Auto) 6.0, Eosinophils (%) (Auto) 1.7, Basophils (%) (Auto) 0.5, Sodium Level 136, Potassium Level 3.8, Chloride Level 102, Carbon Dioxide Level 27, Anion Gap 7, Blood Urea Nitrogen 19H, Creatinine 0.9, Estimat Glomerular Filtration Rate > 60, Glucose Level 123H, Calcium Level 8.3L Height (Feet): 5 Height (Inches): 6.00 Weight (Pounds): 215 General Appearance: no apparent distress Cardiovascular: tachycardia Abdomen: soft Objective no change Yunior Sexton MD Aug 12, 2019 12:21
--- NOTE | 2019-08-12 14:32 | Infectious Diseases Prog Note ---
Assessment/Plan Assessment/Plan ASSESSMENT: The patient is a 79-year-old male with: Leukocytosis; mild Fever Sepsis, Sp Pneumonia ( probable asp), Sp RX - CXR: 1. Streaky opacities in the right lower lung may represent atelectasis versus scarring. Left basilar opacity may represent atelectasis. Component of pneumonia is not excluded. Pulmonary vasculature congestion. -08/01 ucx NTD sp cx: nl anastacio Urinary tract infection, SP Rx 07/31 Sp Code blue and intubation Hyperlipidemia. COPD. History of GERD. History of encephalopathy. History of CAD/CO. History of cardiomyopathy. Hypertension. PLAN: start on Merrem and IV Vanco # ! 3/ SP Zosyn and IV Vanco # 7/7 , -08/01 SP Rocephin day # 10 - 07/31 sp sp Dox # 6 Monitor CBC. Monitor BMP. Monitor chest x-ray cont ICU Support Rpt Cx (B,U,S) . ANGELLA RN Subjective Allergies: Coded Allergies: No Known Allergies (Unverified , 06/03/17) Subjective febrile and mild increase of WBC Objective Vital Signs Last 24 Hour Vital Signs Date Time Temp Pulse Resp B/P (MAP) Pulse Ox O2 Delivery O2 Flow Rate FiO2 08/12/19 12:00 30 08/12/19 12:00 99.0 109 24 101/66 (78) 99 08/12/19 12:00 Mechanical Ventilator 08/12/19 12:00 114 08/12/19 11:23 100.4 08/12/19 11:00 109 24 133/79 (97) 100 08/12/19 10:00 102.6 99 25 148/74 (98) 100 08/12/19 09:25 100 08/12/19 09:24 88 18 30 08/12/19 09:00 101.6 91 18 134/65 (88) 100 08/12/19 08:00 30 08/12/19 08:00 90 08/12/19 08:00 Mechanical Ventilator 08/12/19 08:00 90 20 145/72 (96) 100 08/12/19 07:10 89 26 30 08/12/19 07:00 87 18 146/65 (92) 100 08/12/19 06:30 68 18 08/12/19 06:30 92 18 08/12/19 06:00 84 18 150/87 (108) 100 08/12/19 05:20 86 21 30 08/12/19 05:00 78 18 149/66 (93) 100 08/12/19 04:00 Mechanical Ventilator 08/12/19 04:00 98.4 84 19 137/61 (86) 100 08/12/19 04:00 81 08/12/19 04:00 30 08/12/19 03:48 88 21 30 08/12/19 03:00 88 20 150/65 (93) 97 08/12/19 02:00 30 08/12/19 02:00 88 20 154/68 (96) 98 08/12/19 01:40 78 17 30 08/12/19 01:00 72 18 140/60 (86) 98 08/12/19 00:00 30 08/12/19 00:00 98.8 71 18 149/66 (93) 97 08/12/19 00:00 71 08/12/19 00:00 Mechanical Ventilator 08/11/19 23:30 74 18 30 08/11/19 23:00 70 18 142/66 (91) 99 08/11/19 22:00 74 18 150/68 (95) 99 08/11/19 21:05 77 18 30 08/11/19 21:00 72 18 155/67 (96) 100 08/11/19 20:00 Mechanical Ventilator 08/11/19 20:00 73 18 154/75 (101) 100 08/11/19 20:00 72 08/11/19 19:20 77 18 30 08/11/19 19:00 80 19 163/78 (106) 97 08/11/19 18:00 76 18 154/66 (95) 97 08/11/19 17:11 70 18 30 08/11/19 17:00 75 18 142/61 (88) 98 08/11/19 16:00 30 08/11/19 16:00 99.4 70 18 132/64 (86) 97 08/11/19 16:00 Mechanical Ventilator 08/11/19 15:42 70 08/11/19 15:00 72 19 136/78 (97) 97 08/11/19 14:41 79 19 30 Height (Feet): 5 Height (Inches): 6.00 Weight (Pounds): 215 HEENT: anicteric Respiratory/Chest: no respiratory distress Cardiovascular: normal rate Abdomen: no organomegaly Laboratory Tests Test 08/12/19 04:35 White Blood Count 11.4 K/UL (4.8-10.8) #H Red Blood Count 4.02 M/UL (4.70-6.10) L Hemoglobin 12.7 G/DL (14.2-18.0) L Hematocrit 37.0 % (42.0-52.0) L Mean Corpuscular Volume 92 FL (80-99) Mean Corpuscular Hemoglobin 31.5 PG (27.0-31.0) H Mean Corpuscular Hemoglobin Concent 34.2 G/DL (32.0-36.0) Red Cell Distribution Width 12.6 % (11.6-14.8) Platelet Count 277 K/UL (150-450) Mean Platelet Volume 5.8 FL (6.5-10.1) L Neutrophils (%) (Auto) 81.7 % (45.0-75.0) H Lymphocytes (%) (Auto) 10.2 % (20.0-45.0) L Monocytes (%) (Auto) 6.0 % (1.0-10.0) Eosinophils (%) (Auto) 1.7 % (0.0-3.0) Basophils (%) (Auto) 0.5 % (0.0-2.0) Sodium Level 136 MMOL/L (136-145) Potassium Level 3.8 MMOL/L (3.5-5.1) Chloride Level 102 MMOL/L (98-107) Carbon Dioxide Level 27 MMOL/L (21-32) Anion Gap 7 mmol/L (5-15) Blood Urea Nitrogen 19 mg/dL (7-18) H Creatinine 0.9 MG/DL (0.55-1.30) Estimat Glomerular Filtration Rate > 60 mL/min (>60) Glucose Level 123 MG/DL (74-106) H Calcium Level 8.3 MG/DL (8.5-10.1) L Current Medications Medications (Trade) Dose Ordered Sig/[facility] Route PRN Reason Start Time Stop Time Status Last Admin Dose Admin Acetaminophen (Tylenol) 650 mg Q4H PRN ORAL Mild Pain/Temp > 100.5 08/01/19 02:00 08/20/19 17:59 08/12/19 10:53 Acetaminophen (Tylenol) 1,000 mg Q6H PRN ORAL Moderate Pain (Pain Scale 4-6) 08/01/19 00:00 08/20/19 17:59 08/03/19 10:34 Amiodarone HCl (Cordarone) 200 mg DAILY ORAL 08/08/19 09:00 09/07/19 08:59 08/12/19 10:08 Atorvastatin Calcium (Lipitor) 40 mg BEDTIME ORAL 08/01/19 21:00 08/20/19 20:59 08/11/19 20:40 Clopidogrel Bisulfate (Plavix) 75 mg DAILY ORAL 08/01/19 09:00 08/21/19 08:59 08/12/19 10:08 Heparin Sodium (Porcine) (Heparin 5000 units/ml) 5,000 units EVERY 12 HOURS SUBQ 08/01/19 09:00 08/20/19 20:59 08/12/19 10:13 Hydralazine HCl (Apresoline) 10 mg Q6H PRN IV For High Blood Pressure 08/01/19 00:15 08/25/19 12:14 Lorazepam (Ativan 2mg/ml 1ml) 0.5 mg Q2H PRN IV For Anxiety 08/07/19 11:30 08/14/19 11:29 08/09/19 00:47 Olanzapine (ZyPREXA) 5 mg BID ORAL 08/01/19 09:00 08/30/19 14:23 08/12/19 10:08 Ondansetron HCl (Zofran) 4 mg Q4H PRN IVP Nausea & Vomiting 08/01/19 02:30 08/21/19 18:29 Pantoprazole (Protonix) 40 mg Q12HR IVP 08/03/19 21:00 08/31/19 08:59 08/12/19 10:08 Thiamine HCl (Vitamin B1) 100 mg DAILY ORAL 08/01/19 09:00 08/21/19 08:59 08/12/19 10:10 Vitamin D (Vitamin D) 5,000 intlu DAILY ORAL 08/01/19 09:00 08/21/19 08:59 08/12/19 10:07 Angel Rudolph MD Aug 12, 2019 14:32
[2019-08-12] MEDS: Vancomycin 1 GM in NS 275 ML IVPB SCH (17:41)
[2019-08-12] MEDS: Meropenem 1 GM in NS 55 ML IVPB SCH ×2 (17:41→23:44)
--- NOTE | 2019-08-12 17:46 | Diagnostic Imaging Report ---
Indication: Post nasogastric tube placement Technique: Supine view of the upper abdomen Comparison: 08/11/2019 Findings: There is again demonstrated nasogastric tube, tip which projects at the level of the gastric antrum in good position. Considerable gas is seen within small enlarged bowel. Impression: Satisfactory nasogastric tube placement This agrees with the preliminary interpretation provided overnight by [facility] teleradiology service.
[2019-08-12] MEDS ORDERED: Enalapril 5mg tab ORAL SCH (21:00)
[2019-08-12] MEDS: Atorvastatin 20mg tab ORAL SCH (21:03)
[2019-08-12] MEDS: LORazepam Inj 2mg/ml 1ml IV PRN (21:35)
--- NOTE | 2019-08-12 22:44 | Progress Note ---
DATE: 08/12/2019 SUBJECTIVE: The patient is in no acute distress. The patient is status post extubation, doing well. The patient was confused. He was restless all over the night. During the evaluation, he was calm and in a comfortable position. MENTAL STATUS EXAMINATION: Alert and oriented times self and place. Mood is anxious. Affect is flat. Thought process, there is a paucity of thought content. Thought content, no suicidal or homicidal ideation. Cognition is impaired. Insight and judgment are impaired. ASSESSMENT: 1. Dementia. 2. Acute encephalopathy. PLAN: 1. Continue the olanzapine 10 mg b.i.d. 2. Ativan p.r.n. 3. Discussed with the staff. Duarte Vizcarra M.D. DR: RACHEL JOB#: [id number] CC:
[2019-08-13] VITALS (24 sets, daily range): BP systolic 114–170; BP diastolic 59–101
[2019-08-13] MEDS: Vancomycin 1 GM in NS 275 ML IVPB SCH ×2 (05:19→18:38)
[2019-08-13 07:10] LABS: HEMATOCRIT 39.6 % (42.0-52.0); HEMOGLOBIN 13.4 G/DL (14.2-18.0); MEAN CORPUSCULAR VOLUME 93 FL (80-99); PLATELET COUNT 291 K/UL (150-450); RED BLOOD COUNT 4.27 M/UL (4.70-6.10); RED CELL DISTRIBUTION WIDTH 12.6 % (11.6-14.8); WHITE BLOOD COUNT 13.6 K/UL (4.8-10.8)
[2019-08-13 07:18] LABS: ANION GAP 6 mmol/L (5-15); BLOOD UREA NITROGEN 17 mg/dL (7-18); CALCIUM 8.7 MG/DL (8.5-10.1); CARBON DIOXIDE 31 MMOL/L (21-32); CHLORIDE 111 MMOL/L (98-107); CREATININE 0.7 MG/DL (0.55-1.30); SODIUM 148 MMOL/L (136-145)
[2019-08-13] MEDS: LORazepam Inj 2mg/ml 1ml IV PRN ×3 (09:01→22:54)
[2019-08-13] MEDS ORDERED: Haloperidol Lactate 5 MG in D5W 55 ML IVPB PRN (09:45)
--- NOTE | 2019-08-13 09:46 | Pulmonolgy Critical Care Note ---
Critical Care - Asmt/Plan Problems: (1) Acute respiratory failure (2) Cardiopulmonary arrest (3) Cardiac LV ejection fraction 40% (4) Nosocomial pneumonia (5) Atrial fibrillation (6) Pulmonary edema (7) COPD (chronic obstructive pulmonary disease) (8) CAD (coronary artery disease) (9) Dementia with behavioral disturbance Assessment/Plan: patient pulled his NG tube 6 times. I don't want him to be sedated, since his respiratory status is very borderline. I will dc NG tube and dc all oral medications for now. We will use Haldol IV for agitation. continue Lasix IV for now. 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 - Objective Last 24 Hour Vital Signs Date Time Temp Pulse Resp B/P (MAP) Pulse Ox O2 Delivery O2 Flow Rate FiO2 08/13/19 07:20 96 Cool Aerosol 10.0 35 08/13/19 07:00 110 26 145/79 (101) 97 08/13/19 06:30 110 22 08/13/19 06:30 110 26 08/13/19 06:00 96 26 145/79 (101) 97 08/13/19 05:00 101 26 134/87 (103) 95 08/13/19 04:00 98.2 104 25 114/101 (105) 96 08/13/19 04:00 Simple Mask 10.0 08/13/19 04:00 104 08/13/19 03:00 101 23 150/76 (100) 95 08/13/19 02:00 100 24 151/76 (101) 95 08/13/19 01:02 95 Cool Aerosol 10.0 35 08/13/19 01:00 100 24 149/65 (93) 95 08/13/19 00:00 100 08/13/19 00:00 Venturi Mask 08/13/19 00:00 98.6 100 22 140/65 (90) 93 08/12/19 23:00 94 22 135/61 (85) 93 08/12/19 22:00 101 24 118/76 (90) 92 08/12/19 21:30 107 22 128/80 (96) 91 08/12/19 21:03 130/84 08/12/19 21:00 107 24 130/84 (99) 94 08/12/19 20:00 98.8 107 25 113/79 (90) 96 08/12/19 20:00 107 08/12/19 20:00 Venturi Mask 08/12/19 19:45 100 Cool Aerosol 10.0 35 08/12/19 19:00 103 25 104/55 (71) 99 08/12/19 18:00 114 25 142/85 (104) 97 08/12/19 17:00 112 26 143/87 (105) 96 08/12/19 16:00 Mechanical Ventilator 08/12/19 16:00 10.0 30 08/12/19 16:00 99.0 112 25 129/80 (96) 92 08/12/19 16:00 113 27 129/80 (96) 98 08/12/19 16:00 113 08/12/19 15:00 109 23 122/83 (96) 99 08/12/19 14:00 106 23 111/59 (76) 96 08/12/19 13:50 98 Cool Aerosol 8.0 30 08/12/19 13:50 Simple Mask 10.0 30 08/12/19 13:00 103 23 137/81 (99) 100 08/12/19 12:00 30 08/12/19 12:00 99.0 109 24 101/66 (78) 99 08/12/19 12:00 Mechanical Ventilator 08/12/19 12:00 114 08/12/19 11:23 100.4 08/12/19 11:00 109 24 133/79 (97) 100 08/12/19 10:00 102.6 99 25 148/74 (98) 100 08/12/19 09:43 88 18 100 Mechanical Ventilator 30 Status: awake Condition: critical HEENT: atraumatic, normocephalic Neck: full ROM Lungs: chest wall tender Heart: HR/BP stable Abdomen: soft Extremities: no C/C/E, edema Micro: Microbiology Date/Time Source Procedure Growth Status 08/12/19 20:30 Urine,Clean Catch Urine Culture - Preliminary NO GROWTH Resulted Critical Care - Subjective ROS Limited/Unobtainable: Yes FI02: 35 Vent Support Breath Rate: 18 Vent Support Mode: CPAP Vent Tidal Volume: 650 Sputum Amount: None PEEP: 5.0 PIP: 39 Tube Feeding Amount: 55 I&O: Intake and Output 08/12/19 08/13/19 19:00 07:00 Intake Total 745.000 ml 440 ml Output Total 3700 ml 2280 ml Balance -2955.000 ml -1840 ml Free Water 30 ml IV Total 330.000 ml Tube Feeding 385 ml 440 ml Output Urine Total 3700 ml 2280 ml # Bowel Movements 2 3 ET-Tube: 7.5 ET Position: 23 Labs: Laboratory Tests Test 08/12/19 19:13 08/13/19 06:20 Arterial Blood pH 7.397 (7.350-7.450) Arterial Blood Partial Pressure CO2 49.4 mmHg (35.0-45.0) H Arterial Blood Partial Pressure O2 72.8 mmHg (75.0-100.0) L Arterial Blood HCO3 29.7 mmol/L (22.0-26.0) H Arterial Blood Oxygen Saturation 94.5 % (95-100) L Arterial Blood Base Excess 3.9 (-2-2) H Joe Test Positive White Blood Count 13.6 K/UL (4.8-10.8) H Red Blood Count 4.27 M/UL (4.70-6.10) L Hemoglobin 13.4 G/DL (14.2-18.0) L Hematocrit 39.6 % (42.0-52.0) L Mean Corpuscular Volume 93 FL (80-99) Mean Corpuscular Hemoglobin 31.5 PG (27.0-31.0) H Mean Corpuscular Hemoglobin Concent 33.9 G/DL (32.0-36.0) Red Cell Distribution Width 12.6 % (11.6-14.8) Platelet Count 291 K/UL (150-450) Mean Platelet Volume 5.8 FL (6.5-10.1) L Neutrophils (%) (Auto) % (45.0-75.0) Lymphocytes (%) (Auto) % (20.0-45.0) Monocytes (%) (Auto) % (1.0-10.0) Eosinophils (%) (Auto) % (0.0-3.0) Basophils (%) (Auto) % (0.0-2.0) Neutrophils % (Manual) Pending Lymphocytes % (Manual) Pending Platelet Estimate Pending Platelet Morphology Pending Sodium Level 148 MMOL/L (136-145) H Potassium Level 4.0 MMOL/L (3.5-5.1) Chloride Level 111 MMOL/L (98-107) H Carbon Dioxide Level 31 MMOL/L (21-32) Anion Gap 6 mmol/L (5-15) Blood Urea Nitrogen 17 mg/dL (7-18) Creatinine 0.7 MG/DL (0.55-1.30) Estimat Glomerular Filtration Rate > 60 mL/min (>60) Glucose Level 118 MG/DL (74-106) H Calcium Level 8.7 MG/DL (8.5-10.1) Magnesium Level 2.2 MG/DL (1.8-2.4) Pro-B-Type Natriuretic Peptide Pending Nicole Graves MD Aug 13, 2019 09:46
[2019-08-13] MEDS: Pantoprazole Inj IVP SCH ×2 (09:54→20:48)
[2019-08-13] MEDS: Heparin 5000 units/ml inj SUBQ SCH ×2 (09:55→20:45)
--- NOTE | 2019-08-13 09:59 | Diagnostic Imaging Report ---
Indication: Status post nasogastric tube repositioning Technique: One view of the upper abdomen Comparison: 08/12/2019 Findings: Nasogastric tube tip now projects at or just beyond the level of the gastroesophageal junction, may be slightly further in that it appears as the tip appears to be seen end on. Bowel gas appears less prominent than previously. Impression: Somewhat high position of nasogastric tube. Further advancement recommended Findings discussed by phone with charge nurse Abbi in the ICU previously
[2019-08-13] MEDS: Meropenem 1 GM in NS 55 ML IVPB SCH ×2 (10:04→18:38)
[2019-08-13] MEDS: Haloperidol 5mg/ml Inj IM PRN ×2 (10:24→20:46)
--- NOTE | 2019-08-13 10:47 | Infectious Diseases Prog Note ---
Assessment/Plan Assessment/Plan ASSESSMENT: The patient is a 79-year-old male with: Leukocytosis; mild Fever Sepsis, Sp Pneumonia ( probable asp), Sp RX - CXR: 1. Streaky opacities in the right lower lung may represent atelectasis versus scarring. Left basilar opacity may represent atelectasis. Component of pneumonia is not excluded. Pulmonary vasculature congestion. -08/01 ucx NTD sp cx: nl anastacio Urinary tract infection, SP Rx 07/31 Sp Code blue and intubation , sp extubation 08/12 Hyperlipidemia. COPD. History of GERD. History of encephalopathy. History of CAD/MD. History of cardiomyopathy. Hypertension. PLAN: cont on Merrem and IV Vanco # 2 3/ SP Zosyn and IV Vanco # 7/7 , -08/01 SP Rocephin day # 10 - 07/31 sp sp Dox # 6 Monitor CBC. Monitor BMP. Monitor chest x-ray cont ICU Support Rpt Cx (B,U,S) . ANGELLA RN Subjective Allergies: Coded Allergies: No Known Allergies (Unverified , 06/03/17) Subjective extubated Objective Vital Signs Last 24 Hour Vital Signs Date Time Temp Pulse Resp B/P (MAP) Pulse Ox O2 Delivery O2 Flow Rate FiO2 08/13/19 10:00 94 25 142/78 (99) 93 08/13/19 09:00 94 23 144/70 (94) 95 08/13/19 08:00 98.7 102 26 120/64 (82) 95 08/13/19 08:00 Simple Mask 10.0 08/13/19 07:20 96 Cool Aerosol 10.0 35 08/13/19 07:00 110 26 145/79 (101) 97 08/13/19 06:30 110 22 08/13/19 06:30 110 26 08/13/19 06:00 96 26 145/79 (101) 97 08/13/19 05:00 101 26 134/87 (103) 95 08/13/19 04:00 98.2 104 25 114/101 (105) 96 08/13/19 04:00 Simple Mask 10.0 08/13/19 04:00 104 08/13/19 03:00 101 23 150/76 (100) 95 08/13/19 02:00 100 24 151/76 (101) 95 08/13/19 01:02 95 Cool Aerosol 10.0 35 08/13/19 01:00 100 24 149/65 (93) 95 08/13/19 00:00 100 08/13/19 00:00 Venturi Mask 08/13/19 00:00 98.6 100 22 140/65 (90) 93 08/12/19 23:00 94 22 135/61 (85) 93 08/12/19 22:00 101 24 118/76 (90) 92 08/12/19 21:30 107 22 128/80 (96) 91 08/12/19 21:03 130/84 08/12/19 21:00 107 24 130/84 (99) 94 08/12/19 20:00 98.8 107 25 113/79 (90) 96 08/12/19 20:00 107 08/12/19 20:00 Venturi Mask 08/12/19 19:45 100 Cool Aerosol 10.0 35 08/12/19 19:00 103 25 104/55 (71) 99 08/12/19 18:00 114 25 142/85 (104) 97 08/12/19 17:00 112 26 143/87 (105) 96 08/12/19 16:00 Mechanical Ventilator 08/12/19 16:00 10.0 30 08/12/19 16:00 99.0 112 25 129/80 (96) 92 08/12/19 16:00 113 27 129/80 (96) 98 08/12/19 16:00 113 08/12/19 15:00 109 23 122/83 (96) 99 08/12/19 14:00 106 23 111/59 (76) 96 08/12/19 13:50 98 Cool Aerosol 8.0 30 08/12/19 13:50 Simple Mask 10.0 30 08/12/19 13:00 103 23 137/81 (99) 100 08/12/19 12:00 30 08/12/19 12:00 99.0 109 24 101/66 (78) 99 08/12/19 12:00 Mechanical Ventilator 08/12/19 12:00 114 08/12/19 11:23 100.4 08/12/19 11:00 109 24 133/79 (97) 100 Height (Feet): 5 Height (Inches): 6.00 Weight (Pounds): 212 HEENT: anicteric Respiratory/Chest: no respiratory distress Cardiovascular: regular rhythm Abdomen: soft, non tender Microbiology Date/Time Source Procedure Growth Status 08/12/19 20:30 Urine,Clean Catch Urine Culture - Preliminary NO GROWTH Resulted Laboratory Tests Test 08/12/19 19:13 08/13/19 06:20 Arterial Blood pH 7.397 (7.350-7.450) Arterial Blood Partial Pressure CO2 49.4 mmHg (35.0-45.0) H Arterial Blood Partial Pressure O2 72.8 mmHg (75.0-100.0) L Arterial Blood HCO3 29.7 mmol/L (22.0-26.0) H Arterial Blood Oxygen Saturation 94.5 % (95-100) L Arterial Blood Base Excess 3.9 (-2-2) H Joe Test Positive White Blood Count 13.6 K/UL (4.8-10.8) H Red Blood Count 4.27 M/UL (4.70-6.10) L Hemoglobin 13.4 G/DL (14.2-18.0) L Hematocrit 39.6 % (42.0-52.0) L Mean Corpuscular Volume 93 FL (80-99) Mean Corpuscular Hemoglobin 31.5 PG (27.0-31.0) H Mean Corpuscular Hemoglobin Concent 33.9 G/DL (32.0-36.0) Red Cell Distribution Width 12.6 % (11.6-14.8) Platelet Count 291 K/UL (150-450) Mean Platelet Volume 5.8 FL (6.5-10.1) L Neutrophils (%) (Auto) % (45.0-75.0) Lymphocytes (%) (Auto) % (20.0-45.0) Monocytes (%) (Auto) % (1.0-10.0) Eosinophils (%) (Auto) % (0.0-3.0) Basophils (%) (Auto) % (0.0-2.0) Differential Total Cells Counted 100 Neutrophils % (Manual) 90 % (45-75) H Lymphocytes % (Manual) 5 % (20-45) L Monocytes % (Manual) 4 % (1-10) Eosinophils % (Manual) 1 % (0-3) Basophils % (Manual) 0 % (0-2) Band Neutrophils 0 % (0-8) Platelet Estimate Adequate Platelet Morphology Normal Red Blood Cell Morphology Normal Sodium Level 148 MMOL/L (136-145) H Potassium Level 4.0 MMOL/L (3.5-5.1) Chloride Level 111 MMOL/L (98-107) H Carbon Dioxide Level 31 MMOL/L (21-32) Anion Gap 6 mmol/L (5-15) Blood Urea Nitrogen 17 mg/dL (7-18) Creatinine 0.7 MG/DL (0.55-1.30) Estimat Glomerular Filtration Rate > 60 mL/min (>60) Glucose Level 118 MG/DL (74-106) H Calcium Level 8.7 MG/DL (8.5-10.1) Magnesium Level 2.2 MG/DL (1.8-2.4) Pro-B-Type Natriuretic Peptide Pending Current Medications Medications (Trade) Dose Ordered Sig/Amaris Route PRN Reason Start Time Stop Time Status Last Admin Dose Admin Amiodarone HCl 100 ml @ 600 mls/hr ONCE IV 08/13/19 09:42 08/13/19 11:00 08/13/19 10:24 Furosemide (Lasix) 20 mg EVERY 12 HOURS IV 08/12/19 21:00 09/11/19 20:59 08/13/19 09:54 Haloperidol Lactate (Haldol) 5 mg Q6H PRN IM Agitation 08/13/19 10:15 09/27/19 10:14 08/13/19 10:24 Heparin Sodium (Porcine) (Heparin 5000 units/ml) 5,000 units EVERY 12 HOURS SUBQ 08/01/19 09:00 08/20/19 20:59 08/13/19 09:55 Hydralazine HCl (Apresoline) 10 mg Q6H PRN IV For High Blood Pressure 08/01/19 00:15 08/25/19 12:14 Lorazepam (Ativan 2mg/ml 1ml) 0.5 mg Q2H PRN IV For Anxiety 08/07/19 11:30 08/14/19 11:29 08/13/19 09:01 Meropenem 1 gm/ Sodium Chloride 55 ml @ 110 mls/hr Q8H IVPB 08/12/19 16:00 08/17/19 15:59 08/13/19 10:04 Ondansetron HCl (Zofran) 4 mg Q4H PRN IVP Nausea & Vomiting 08/01/19 02:30 08/21/19 18:29 Pantoprazole (Protonix) 40 mg Q12HR IVP 08/03/19 21:00 08/31/19 08:59 08/13/19 09:54 Vancomycin HCl (Vanco rx to dose) 1 ea DAILY PRN MISC Per rx protocol 08/12/19 14:45 09/11/19 14:44 Vancomycin HCl 1 gm/Sodium Chloride 275 ml @ 183.708 mls/hr Q12HR@0500,1700 IVPB 08/12/19 17:00 08/17/19 16:59 08/13/19 05:19 Angel Rudolph MD Aug 13, 2019 10:47
--- NOTE | 2019-08-13 11:55 | Nephrology Progress Note ---
Assessment/Plan Problem List: (1) AUREA (acute kidney injury) (2) Cardiopulmonary arrest (3) Respiratory failure (4) Cardiomyopathy (5) Obesity (BMI 30.0-34.9) (6) DMII (diabetes mellitus, type 2) Assessment Acute Renal Failure : AUREA Most likely due to cardiorespiratory arrest and episode of hypotension. Patient also has cardiomyopathy with Ej Fx of 40 % on admission Obese : BMI 34.4 ? DM Other Dx (1) Cardiopulmonary arrest (2) Nosocomial pneumonia (3) Acute respiratory failure (4) COPD (chronic obstructive pulmonary disease) (5) Atrial fibrillation (6) Dementia with behavioral disturbance (7) CAD (coronary artery disease) Plan Patient was extubated yesterday Stable from Renal stand now- Continue pulmonary toilet Monitor renal parameters. Serum creatinine improved Monitor urine output. Urine output improved. Avoid nephrotoxics. Weaning as possible. Remains intubated at this time. Correct electrolyte imbalances. Change tube feeding to Glucerna. Subjective ROS Limited/Unobtainable: No Constitutional: Reports: malaise, weakness Objective Objective Last 24 Hour Vital Signs Date Time Temp Pulse Resp B/P (MAP) Pulse Ox O2 Delivery O2 Flow Rate FiO2 08/13/19 10:00 94 25 142/78 (99) 93 08/13/19 09:00 94 23 144/70 (94) 95 08/13/19 08:00 98.7 102 26 120/64 (82) 95 08/13/19 08:00 Simple Mask 10.0 08/13/19 07:20 96 Cool Aerosol 10.0 35 08/13/19 07:00 110 26 145/79 (101) 97 08/13/19 06:30 110 22 08/13/19 06:30 110 26 08/13/19 06:00 96 26 145/79 (101) 97 08/13/19 05:00 101 26 134/87 (103) 95 08/13/19 04:00 98.2 104 25 114/101 (105) 96 08/13/19 04:00 Simple Mask 10.0 08/13/19 04:00 104 08/13/19 03:00 101 23 150/76 (100) 95 08/13/19 02:00 100 24 151/76 (101) 95 08/13/19 01:02 95 Cool Aerosol 10.0 35 08/13/19 01:00 100 24 149/65 (93) 95 08/13/19 00:00 100 08/13/19 00:00 Venturi Mask 08/13/19 00:00 98.6 100 22 140/65 (90) 93 08/12/19 23:00 94 22 135/61 (85) 93 08/12/19 22:00 101 24 118/76 (90) 92 08/12/19 21:30 107 22 128/80 (96) 91 08/12/19 21:03 130/84 08/12/19 21:00 107 24 130/84 (99) 94 08/12/19 20:00 98.8 107 25 113/79 (90) 96 08/12/19 20:00 107 08/12/19 20:00 Venturi Mask 08/12/19 19:45 100 Cool Aerosol 10.0 35 08/12/19 19:00 103 25 104/55 (71) 99 08/12/19 18:00 114 25 142/85 (104) 97 08/12/19 17:00 112 26 143/87 (105) 96 08/12/19 16:00 Mechanical Ventilator 08/12/19 16:00 10.0 30 08/12/19 16:00 99.0 112 25 129/80 (96) 92 08/12/19 16:00 113 27 129/80 (96) 98 08/12/19 16:00 113 08/12/19 15:00 109 23 122/83 (96) 99 08/12/19 14:00 106 23 111/59 (76) 96 08/12/19 13:50 98 Cool Aerosol 8.0 30 08/12/19 13:50 Simple Mask 10.0 30 08/12/19 13:00 103 23 137/81 (99) 100 08/12/19 12:00 30 08/12/19 12:00 99.0 109 24 101/66 (78) 99 08/12/19 12:00 Mechanical Ventilator 08/12/19 12:00 114 Intake and Output 08/12/19 08/13/19 19:00 07:00 Intake Total 745.000 ml 440 ml Output Total 3700 ml 2280 ml Balance -2955.000 ml -1840 ml Free Water 30 ml IV Total 330.000 ml Tube Feeding 385 ml 440 ml Output Urine Total 3700 ml 2280 ml # Bowel Movements 2 3 Laboratory Tests 08/12/19 19:13: Arterial Blood pH 7.397, Arterial Blood Partial Pressure CO2 49.4H, Arterial Blood Partial Pressure O2 72.8L, Arterial Blood HCO3 29.7H, Arterial Blood Oxygen Saturation 94.5L, Arterial Blood Base Excess 3.9H, Joe Test Positive 08/13/19 06:20: White Blood Count 13.6H, Red Blood Count 4.27L, Hemoglobin 13.4L, Hematocrit 39.6L, Mean Corpuscular Volume 93, Mean Corpuscular Hemoglobin 31.5H, Mean Corpuscular Hemoglobin Concent 33.9, Red Cell Distribution Width 12.6, Platelet Count 291, Mean Platelet Volume 5.8L, Neutrophils (%) (Auto) , Lymphocytes (%) ( Auto) , Monocytes (%) (Auto) , Eosinophils (%) (Auto) , Basophils (%) (Auto) , Differential Total Cells Counted 100, Neutrophils % (Manual) 90H, Lymphocytes % (Manual) 5L, Monocytes % (Manual) 4, Eosinophils % (Manual) 1, Basophils % ( Manual) 0, Band Neutrophils 0, Platelet Estimate Adequate, Platelet Morphology Normal, Red Blood Cell Morphology Normal, Sodium Level 148H, Potassium Level 4.0 , Chloride Level 111H, Carbon Dioxide Level 31, Anion Gap 6, Blood Urea Nitrogen 17, Creatinine 0.7, Estimat Glomerular Filtration Rate > 60, Glucose Level 118H, Calcium Level 8.7, Magnesium Level 2.2, Pro-B-Type Natriuretic Peptide [Pending] Height (Feet): 5 Height (Inches): 6.00 Weight (Pounds): 212 General Appearance: mild distress EENT: other - On oxygen mask Cardiovascular: tachycardia Respiratory/Chest: decreased breath sounds Abdomen: soft Objective no change Yunior Sexton MD Aug 13, 2019 11:55
--- NOTE | 2019-08-13 14:56 | Diagnostic Imaging Report ---
Indication: Shortness of breath Technique: One view of the chest Comparison: 08/11/2019 Findings: Again demonstrated is bilateral interstitial congestion. Again demonstrated is bilateral hazy parenchymal opacity, with patchy parenchymal opacities increasing in the right mid and lower lung. There is also pleural fluid on the left. The heart size is upper limits normal. Previously demonstrated endotracheal tube is been removed. Nasogastric tube is in place, tip position obscured Impression: Bilateral interstitial and airspace disease, with increasing patchy parenchymal opacities on the right. Persistent left pleural effusion Interim endotracheal extubation
[2019-08-14] VITALS (26 sets, daily range): BP systolic 92–176; BP diastolic 57–103
--- NOTE | 2019-08-14 00:45 | Progress Note ---
DATE: 08/13/2019 CARDIOLOGY PROGRESS NOTE SUBJECTIVE: The patient remains in the critical care [facility]. He was extubated yesterday. He remains on aggressive respiratory hygiene. He continues to need aggressive suctioning. Monitored rhythm is sinus with bundle-branch block and paroxysms of atrial fibrillation. OBJECTIVE: VITAL SIGNS: Blood pressure 142/78, pulse 94, and respirations 25. LUNGS: Coarse breath sounds, rhonchi. CARDIAC: Irregularly irregular rhythm. Normal S1, paradoxically split S2. ABDOMEN: Soft. EXTREMITIES: Trace dependent edema. LABORATORY DATA: White count is 13.6, hemoglobin 13.4. Sodium 148, potassium 4, bicarb 31, BUN 17, creatinine 0.7. ABG 7.40, 49, 73. IMPRESSION: 1. Status post cardiopulmonary arrest. 2. Yaz-JC-kbijydjgd myocardial infarction. 3. Status post respiratory failure. 4. Healthcare-associated pneumonia. 5. Paroxysmal atrial fibrillation. 6. Recovering sepsis with shock. 7. Dehydration and hypernatremia. PLAN: 1. Hypotonic IV fluids. 2. Continue amiodarone for arrhythmia suppression. 3. Hold diuretic therapy. 4. Limit sedation with psych drugs. 5. Titrate anti-failure and antihypertensive regimen. 6. Respiratory hygiene. Saeed Sim M.D. DR: RAUL JOB#: [id number] CC:
[2019-08-14] MEDS: Meropenem 1 GM in NS 55 ML IVPB SCH ×3 (01:51→15:32)
--- NOTE | 2019-08-14 05:30 | Progress Note ---
DATE: 08/13/2019 SUBJECTIVE: The patient remains afebrile. Hemodynamically stable, but became more agitated and tachypneic. PHYSICAL EXAMINATION: VITAL SIGNS: Blood pressure 127/74, his pulse is 99, respirations of 26, and temperature 98.6. HEENT: Eyes were normal. ENT, mucous membranes were moist and intact. NECK: Supple with no JVD without lymph nodes. LUNGS: Clear. HEART: Normal sounds with regular beats. ABDOMEN: Soft and nontender with normal bowel sounds. EXTREMITIES: Warm without cyanosis, clubbing, or edema. LABORATORY AND DIAGNOSTIC DATA: His hemoglobin is 13.4, hematocrit 39.3 with MCV of 93, WBC of 13.6, and platelets 291. His BUN and creatinine are 17 and 0.7 respectively. His sodium is 148, potassium 4.0, chloride 111, CO2 is 31. His calcium is 8.7 and magnesium is 2.2. His proBNP is pending. His arterial blood gases, pH is 7.39, his pCO2 is 49, his O2 saturation is 72, it was 85 yesterday, and his bicarb is 29.7. Chest x-ray today showed bilateral interstitial congestion hazy parenchymal opacities that increase in both lungs and left pleural effusion and cardiomegaly. KUB was done as well. KUB revealed that nasogastric tube should be placed forward into gastric cavity patient received multiple injections without any clinical effect. He did receive Haldol effect 05:17 the patient is now on IV medication only. Repeat laboratory tests will be done in a.m. Modesta Mulligan M.D. DR: ZACHARY JOB#: [id number] CC:
[2019-08-14] MEDS: Vancomycin 1 GM in NS 275 ML IVPB SCH (05:33)
[2019-08-14] MEDS: LORazepam Inj 2mg/ml 1ml IV PRN ×3 (07:45→20:20)
[2019-08-14] MEDS: Amiodarone 200mg tab NG SCH (08:39)
[2019-08-14] MEDS: Pantoprazole Inj IVP SCH ×2 (08:39→20:17)
--- NOTE | 2019-08-14 08:45 | Progress Note ---
DATE: 08/12/2019 SUBJECTIVE: This is a followup from August 12, 2019. The patient was successfully extubated today and maintained O2 saturation above 92 following the extubation. He is alert, afebrile, but remained in tachycardia. PHYSICAL EXAMINATION: VITAL SIGNS: Blood pressure 122/83, pulse is 109, respirations 23, temperature is 99. EYES: Normal. ENT: Mucous membranes were moist and intact. NECK: Supple. JVD 4 cm at 45 degrees. LUNGS: Clear with decreased breath sounds in the left lower lobe. HEART: Normal sounds with irregular beats. There is tachycardia at rest. Sinus tachycardia on monitor. ABDOMEN: Soft, obese, and nontender with normal bowel sounds. EXTREMITIES: Warm without cyanosis, clubbing, or edema. LABORATORY AND DIAGNOSTIC DATA: His hemoglobin is 12.7, hematocrit 37 with MCV of 92, WBC of 11.4, and platelets are 277. His BUN and creatinine is 19 and 0.9 respectively. Sodium is 136, potassium 3.8, chloride 102, CO2 is 27. His glucose is 123. His calcium is 8.3. His abdomen today NG tube is in the right place. In addition, a prominent was identified and as before elevated right diaphragm. IMPRESSION: The patient is with congestive heart failure and cardiac arrhythmia, managed by amiodarone 200 mg daily. He is still on clopidogrel 75 mg daily. Enalapril 5 mg b.i.d. will be added. will be increased to 20 mg q.12 h. CBC, BMP, BNP will be done in the a.m. Modesta Mulligan M.D. DR: EVENS JOB#: [id number] CC:
[2019-08-14] MEDS: Enalapril 5mg tab NG SCH ×2 (08:49→20:18)
[2019-08-14] MEDS: Heparin 5000 units/ml inj SUBQ SCH ×2 (08:50→20:43)
--- NOTE | 2019-08-14 11:18 | Pulmonolgy Critical Care Note ---
Critical Care - Asmt/Plan Problems: (1) Acute respiratory failure (2) Cardiopulmonary arrest (3) Cardiac LV ejection fraction 40% (4) Nosocomial pneumonia (5) Atrial fibrillation (6) Pulmonary edema (7) COPD (chronic obstructive pulmonary disease) (8) CAD (coronary artery disease) (9) Dementia with behavioral disturbance Respiratory: monitor respiratory rate, adjust FIO2, CXR Cardiac: continue to monitor HR/BP Renal: F/U I&O, check electrolytes Infectious Disease: check cultures Gastrointestinal: continue feedings/current rate Hematologic: monitor H/H, transfuse if hgb<8.5 Neurologic: PRN Ativan, keep patient comfortable Prophylaxis: Protonix Time Spent (Minutes): 40 Notes Reviewed: cardio, renal Discussed with: consultants, high risk case managerrd manager - Objective Last 24 Hour Vital Signs Date Time Temp Pulse Resp B/P (MAP) Pulse Ox O2 Delivery O2 Flow Rate FiO2 08/14/19 10:00 111 23 160/65 (96) 97 08/14/19 09:00 105 26 166/79 (108) 97 08/14/19 08:49 166/79 08/14/19 08:00 98.2 107 27 92/61 (71) 97 08/14/19 08:00 108 08/14/19 08:00 Simple Mask 10.0 08/14/19 07:44 97 Cool Aerosol 10.0 35 08/14/19 07:00 102 23 153/75 (101) 98 08/14/19 06:00 102 23 153/75 (101) 98 08/14/19 05:00 98 25 143/76 (98) 98 08/14/19 04:00 98.6 98 24 150/84 (106) 97 08/14/19 04:00 Simple Mask 10.0 08/14/19 04:00 99 08/14/19 03:00 100 25 149/72 (97) 98 08/14/19 02:00 99 28 138/90 (106) 98 08/14/19 01:00 97 25 133/59 (83) 98 08/14/19 00:51 98 Cool Aerosol 10.0 35 08/14/19 00:00 98.8 98 24 146/70 (95) 94 08/14/19 00:00 Simple Mask 10.0 08/14/19 00:00 98 08/13/19 23:00 99 26 130/86 (101) 97 08/13/19 22:00 99 26 127/74 (91) 97 08/13/19 21:00 99 26 140/88 (105) 97 08/13/19 20:00 88 08/13/19 20:00 Simple Mask 10.0 08/13/19 20:00 98.6 88 23 132/77 (95) 96 08/13/19 20:00 97 Cool Aerosol 10.0 35 08/13/19 19:00 98.7 82 22 160/64 (96) 96 08/13/19 18:00 88 21 124/95 (105) 95 08/13/19 17:00 85 21 135/71 (92) 95 08/13/19 16:00 89 08/13/19 16:00 89 24 170/92 (118) 95 08/13/19 16:00 Simple Mask 10.0 08/13/19 15:00 83 26 147/75 (99) 95 08/13/19 14:00 83 26 136/89 (105) 95 08/13/19 13:00 82 27 132/59 (83) 96 08/13/19 12:33 96 Cool Aerosol 10.0 35 08/13/19 12:00 88 08/13/19 12:00 98.6 88 22 131/63 (85) 98 08/13/19 12:00 Simple Mask 10.0 Status: sedated Condition: critical HEENT: normocephalic Lungs: wheezing Heart: HR/BP stable Abdomen: soft, non-tender, feeding tube Micro: Microbiology Date/Time Source Procedure Growth Status 08/12/19 16:50 Blood Blood Culture - Preliminary NO GROWTH AFTER 24 HOURS Resulted 08/12/19 16:35 Blood Blood Culture - Preliminary NO GROWTH AFTER 24 HOURS Resulted 08/12/19 20:30 Sputum Gram Stain - Final Resulted 08/12/19 20:30 Sputum Culture - Preliminary Gram Negative Bacillus 1 Resulted 08/12/19 20:30 Urine,Clean Catch Urine Culture - Final NO GROWTH AFTER 48 HOURS Complete Critical Care - Subjective ROS Limited/Unobtainable: Yes Condition: critical EKG Rhythm: Sinus Rhythm FI02: 35 Vent Support Breath Rate: 18 Vent Support Mode: CPAP Vent Tidal Volume: 650 Sputum Amount: None PEEP: 5.0 PIP: 39 Tube Feeding Amount: 55 I&O: Intake and Output 08/13/19 08/14/19 19:00 07:00 Intake Total 1076.124 ml 951.292 ml Output Total 1350 ml 1890 ml Balance -273.876 ml -938.708 ml Free Water 30 ml 90 ml IV Total 771.124 ml 201.292 ml Tube Feeding 275 ml 660 ml Output Urine Total 1350 ml 1890 ml # Bowel Movements 3 3 ET-Tube: 7.5 ET Position: 23 Labs: Laboratory Tests Test 08/14/19 03:50 Vancomycin Level Trough 12.6 ug/mL (5.0-12.0) H Nicole Graves MD Aug 14, 2019 11:18
--- NOTE | 2019-08-14 14:27 | Infectious Diseases Prog Note ---
Assessment/Plan Assessment/Plan ASSESSMENT: The patient is a 79-year-old male with: Leukocytosis; mild Fever , sp Sepsis, Sp Pneumonia ( probable asp), Sp RX -08/13 Scx: GNR - CXR: 1. Streaky opacities in the right lower lung may represent atelectasis versus scarring. Left basilar opacity may represent atelectasis. Component of pneumonia is not excluded. Pulmonary vasculature congestion. -08/01 ucx NTD - sp cx: nl anastacio Urinary tract infection, SP Rx 07/31 Sp Code blue and intubation , sp extubation 08/12 Hyperlipidemia. COPD. History of GERD. History of encephalopathy. History of CAD/[place]. History of cardiomyopathy. Hypertension. PLAN: cont on Merrem and IV Vanco # 3 3/ SP Zosyn and IV Vanco # 7/7 , -08/01 SP Rocephin day # 10 - 07/31 sp sp Dox # 6 Monitor CBC. Monitor BMP. Monitor chest x-ray cont ICU Support Rpt Cx (B,U,S) . ANGELLA RN Subjective Allergies: Coded Allergies: No Known Allergies (Unverified , 06/03/17) Subjective afebrile Objective Vital Signs Last 24 Hour Vital Signs Date Time Temp Pulse Resp B/P (MAP) Pulse Ox O2 Delivery O2 Flow Rate FiO2 08/14/19 12:55 97 Cool Aerosol 10.0 35 08/14/19 12:00 98.2 102 26 146/72 (96) 97 08/14/19 12:00 101 08/14/19 12:00 Simple Mask 10.0 08/14/19 11:00 102 24 142/65 (90) 98 08/14/19 10:00 111 23 160/65 (96) 97 08/14/19 09:00 105 26 166/79 (108) 97 08/14/19 08:49 166/79 08/14/19 08:00 98.2 107 27 92/61 (71) 97 08/14/19 08:00 108 08/14/19 08:00 Simple Mask 10.0 08/14/19 07:44 97 Cool Aerosol 10.0 35 08/14/19 07:00 102 23 153/75 (101) 98 08/14/19 06:00 102 23 153/75 (101) 98 08/14/19 05:00 98 25 143/76 (98) 98 08/14/19 04:00 98.6 98 24 150/84 (106) 97 08/14/19 04:00 Simple Mask 10.0 08/14/19 04:00 99 08/14/19 03:00 100 25 149/72 (97) 98 08/14/19 02:00 99 28 138/90 (106) 98 08/14/19 01:00 97 25 133/59 (83) 98 08/14/19 00:51 98 Cool Aerosol 10.0 35 08/14/19 00:00 98.8 98 24 146/70 (95) 94 08/14/19 00:00 Simple Mask 10.0 08/14/19 00:00 98 08/13/19 23:00 99 26 130/86 (101) 97 08/13/19 22:00 99 26 127/74 (91) 97 08/13/19 21:00 99 26 140/88 (105) 97 08/13/19 20:00 88 08/13/19 20:00 Simple Mask 10.0 08/13/19 20:00 98.6 88 23 132/77 (95) 96 08/13/19 20:00 97 Cool Aerosol 10.0 35 08/13/19 19:00 98.7 82 22 160/64 (96) 96 08/13/19 18:00 88 21 124/95 (105) 95 08/13/19 17:00 85 21 135/71 (92) 95 08/13/19 16:00 89 08/13/19 16:00 89 24 170/92 (118) 95 08/13/19 16:00 Simple Mask 10.0 08/13/19 15:00 83 26 147/75 (99) 95 Height (Feet): 5 Height (Inches): 6.00 Weight (Pounds): 200 HEENT: mucous membranes moist Respiratory/Chest: no respiratory distress Cardiovascular: regularly irregular Abdomen: no organomegaly Microbiology Date/Time Source Procedure Growth Status 08/12/19 16:50 Blood Blood Culture - Preliminary NO GROWTH AFTER 24 HOURS Resulted 08/12/19 16:35 Blood Blood Culture - Preliminary NO GROWTH AFTER 24 HOURS Resulted 08/12/19 20:30 Sputum Gram Stain - Final Resulted 08/12/19 20:30 Sputum Culture - Preliminary Gram Negative Bacillus 1 Resulted 08/12/19 20:30 Urine,Clean Catch Urine Culture - Final NO GROWTH AFTER 48 HOURS Complete Laboratory Tests Test 08/14/19 03:50 Vancomycin Level Trough 12.6 ug/mL (5.0-12.0) H Current Medications Medications (Trade) Dose Ordered Sig/Amaris Route PRN Reason Start Time Stop Time Status Last Admin Dose Admin Acetaminophen (Tylenol) 650 mg Q4H PRN ORAL Mild Pain/Temp > 100.5 08/14/19 00:15 09/13/19 00:14 Amiodarone HCl (Cordarone) 200 mg DAILY NG 08/14/19 09:00 09/13/19 08:59 08/14/19 08:39 Atorvastatin Calcium (Lipitor) 40 mg BEDTIME NG 08/14/19 21:00 09/13/19 20:59 Clopidogrel Bisulfate (Plavix) 75 mg DAILY NG 08/14/19 09:00 09/13/19 08:59 08/14/19 08:39 Enalapril Maleate (Vasotec) 5 mg EVERY 12 HOURS NG 08/14/19 09:00 09/13/19 08:59 08/14/19 08:49 Furosemide (Lasix) 20 mg EVERY 12 HOURS IV 08/12/19 21:00 09/11/19 20:59 08/14/19 08:49 Haloperidol Lactate (Haldol) 5 mg Q6H PRN IM Agitation 08/13/19 10:15 09/27/19 10:14 08/13/19 20:46 Heparin Sodium (Porcine) (Heparin 5000 units/ml) 5,000 units EVERY 12 HOURS SUBQ 08/01/19 09:00 08/20/19 20:59 08/14/19 08:50 Hydralazine HCl (Apresoline) 10 mg Q6H PRN IV For High Blood Pressure 08/01/19 00:15 08/25/19 12:14 Meropenem 1 gm/ Sodium Chloride 55 ml @ 110 mls/hr Q8H IVPB 08/12/19 16:00 08/17/19 15:59 08/14/19 08:39 Ondansetron HCl (Zofran) 4 mg Q4H PRN IVP Nausea & Vomiting 08/01/19 02:30 08/21/19 18:29 Pantoprazole (Protonix) 40 mg Q12HR IVP 08/03/19 21:00 08/31/19 08:59 08/14/19 08:39 Vancomycin HCl (Vanco rx to dose) 1 ea DAILY PRN MISC Per rx protocol 08/12/19 14:45 09/11/19 14:44 Vancomycin/Sodium Chloride 275 ml @ 183.333 mls/hr Q12H IVPB 08/14/19 17:00 08/19/19 16:59 Angel Rudolph MD Aug 14, 2019 14:27
[2019-08-14] MEDS: Haloperidol 5mg/ml Inj IM PRN (14:37)
--- NOTE | 2019-08-14 14:42 | Nephrology Progress Note ---
Assessment/Plan Problem List: (1) AUREA (acute kidney injury) (2) Cardiopulmonary arrest (3) Respiratory failure (4) Cardiomyopathy (5) Obesity (BMI 30.0-34.9) (6) DMII (diabetes mellitus, type 2) Assessment Acute Renal Failure : AUREA Most likely due to cardiorespiratory arrest and episode of hypotension. Patient also has cardiomyopathy with Ej Fx of 40 % on admission Obese : BMI 34.4 ? DM Other Dx (1) Cardiopulmonary arrest (2) Nosocomial pneumonia (3) Acute respiratory failure (4) COPD (chronic obstructive pulmonary disease) (5) Atrial fibrillation (6) Dementia with behavioral disturbance (7) CAD (coronary artery disease) Plan We will order chemistries for tomorrow Patient was extubated yesterday Stable from Renal stand now- Continue pulmonary toilet Monitor renal parameters. Serum creatinine improved Monitor urine output. Urine output improved. Avoid nephrotoxics. Weaning as possible. Remains intubated at this time. Correct electrolyte imbalances. Change tube feeding to Glucerna. Subjective ROS Limited/Unobtainable: No Constitutional: Reports: malaise, weakness Objective Objective Last 24 Hour Vital Signs Date Time Temp Pulse Resp B/P (MAP) Pulse Ox O2 Delivery O2 Flow Rate FiO2 08/14/19 12:55 97 Cool Aerosol 10.0 35 08/14/19 12:00 98.2 102 26 146/72 (96) 97 08/14/19 12:00 101 08/14/19 12:00 Simple Mask 10.0 08/14/19 11:00 102 24 142/65 (90) 98 08/14/19 10:00 111 23 160/65 (96) 97 08/14/19 09:00 105 26 166/79 (108) 97 08/14/19 08:49 166/79 08/14/19 08:00 98.2 107 27 92/61 (71) 97 08/14/19 08:00 108 08/14/19 08:00 Simple Mask 10.0 08/14/19 07:44 97 Cool Aerosol 10.0 35 08/14/19 07:00 102 23 153/75 (101) 98 08/14/19 06:00 102 23 153/75 (101) 98 08/14/19 05:00 98 25 143/76 (98) 98 08/14/19 04:00 98.6 98 24 150/84 (106) 97 08/14/19 04:00 Simple Mask 10.0 08/14/19 04:00 99 08/14/19 03:00 100 25 149/72 (97) 98 08/14/19 02:00 99 28 138/90 (106) 98 08/14/19 01:00 97 25 133/59 (83) 98 08/14/19 00:51 98 Cool Aerosol 10.0 35 08/14/19 00:00 98.8 98 24 146/70 (95) 94 08/14/19 00:00 Simple Mask 10.0 08/14/19 00:00 98 08/13/19 23:00 99 26 130/86 (101) 97 08/13/19 22:00 99 26 127/74 (91) 97 08/13/19 21:00 99 26 140/88 (105) 97 08/13/19 20:00 88 08/13/19 20:00 Simple Mask 10.0 08/13/19 20:00 98.6 88 23 132/77 (95) 96 08/13/19 20:00 97 Cool Aerosol 10.0 35 08/13/19 19:00 98.7 82 22 160/64 (96) 96 08/13/19 18:00 88 21 124/95 (105) 95 08/13/19 17:00 85 21 135/71 (92) 95 08/13/19 16:00 89 08/13/19 16:00 89 24 170/92 (118) 95 08/13/19 16:00 Simple Mask 10.0 08/13/19 15:00 83 26 147/75 (99) 95 Intake and Output 08/13/19 08/14/19 19:00 07:00 Intake Total 1076.124 ml 951.292 ml Output Total 1350 ml 1890 ml Balance -273.876 ml -938.708 ml Free Water 30 ml 90 ml IV Total 771.124 ml 201.292 ml Tube Feeding 275 ml 660 ml Output Urine Total 1350 ml 1890 ml # Bowel Movements 3 3 Laboratory Tests 08/14/19 03:50: Vancomycin Level Trough 12.6H Height (Feet): 5 Height (Inches): 6.00 Weight (Pounds): 200 General Appearance: lethargic EENT: other - Remains extubated on O2 mask Cardiovascular: tachycardia Respiratory/Chest: decreased breath sounds Abdomen: distended Objective no change Yunior Sexton MD Aug 14, 2019 14:42
[2019-08-14] MEDS ORDERED: NS 275ml ONE ×2 (15:37)
[2019-08-14] MEDS ORDERED: Tubing IV Secondary IV ONE (15:37)
[2019-08-14] MEDS: Vancomycin 1.25gm/NS Premix q24h IVPB SCH (16:25)
--- NOTE | 2019-08-14 22:45 | Progress Note ---
DATE: 08/14/2019 SUBJECTIVE: Condition remains critical. Prognosis guarded. The patient remains in the intensive care unit. She is off ventilator support. Monitored rhythm, sinus with bundle-branch block. Frequent atrial ectopy and short runs of atrial fibrillation. OBJECTIVE: VITAL SIGNS: Blood pressure up to 165/69 earlier, now 146/65, heart rate 94, respiratory rate 24. LUNGS: Bilateral breath sounds. Few rhonchi. HEART: Regular rhythm and rate. Normal S1, paradoxically split S2. ABDOMEN: Soft. EXTREMITIES: No edema. LABORATORY DATA: No new laboratories today. IMPRESSION: 1. Status post cardiopulmonary arrest. 2. Status post respiratory failure. 3. Acute on chronic diastolic and systolic congestive heart failure. 4. Status post acute myocardial infarction. 5. Sepsis with shock. 6. Dehydration. 7. Hypernatremia. 8. Hyperchloremia. PLAN: 1. Antimicrobials. 2. Respiratory hygiene. 3. Hypotonic IV fluids. 4. Maintenance dose amiodarone. 5. Cautious diuresis. 6. Recheck laboratory studies. 7. May need to adjust diuretic dosing and increase free water supplementation. Saeed Sim M.D. DR: YESENIA JOB#: [id number] CC:
--- NOTE | 2019-08-14 23:37 | Psych Consult Progress Note ---
Psychiatry Progress Note Psychiatry Progress Note Medications Current Medications Medications (Trade) Dose Ordered Sig/Amaris Route PRN Reason Start Time Stop Time Status Last Admin Dose Admin Acetaminophen (Tylenol) 650 mg Q4H PRN ORAL Mild Pain/Temp > 100.5 08/14/19 00:15 09/13/19 00:14 Amiodarone HCl (Cordarone) 200 mg DAILY NG 08/14/19 09:00 09/13/19 08:59 08/14/19 08:39 Atorvastatin Calcium (Lipitor) 40 mg BEDTIME NG 08/14/19 21:00 09/13/19 20:59 08/14/19 20:18 Clopidogrel Bisulfate (Plavix) 75 mg DAILY NG 08/14/19 09:00 09/13/19 08:59 08/14/19 08:39 Enalapril Maleate (Vasotec) 5 mg EVERY 12 HOURS NG 08/14/19 09:00 09/13/19 08:59 08/14/19 20:18 Furosemide (Lasix) 20 mg EVERY 12 HOURS IV 08/12/19 21:00 09/11/19 20:59 08/14/19 20:25 Haloperidol Lactate (Haldol) 5 mg Q6H PRN IM Agitation 08/13/19 10:15 09/27/19 10:14 08/14/19 14:37 Heparin Sodium (Porcine) (Heparin 5000 units/ml) 5,000 units EVERY 12 HOURS SUBQ 08/01/19 09:00 08/20/19 20:59 08/14/19 20:43 Hydralazine HCl (Apresoline) 10 mg Q6H PRN IV For High Blood Pressure 08/01/19 00:15 08/25/19 12:14 08/14/19 21:44 Lorazepam (Ativan 2mg/ml 1ml) 0.5 mg Q2H PRN IV For Anxiety 08/14/19 15:41 08/21/19 15:40 08/14/19 20:20 Meropenem 1 gm/ Sodium Chloride 55 ml @ 110 mls/hr Q8H IVPB 08/12/19 16:00 08/17/19 15:59 08/14/19 15:32 Ondansetron HCl (Zofran) 4 mg Q4H PRN IVP Nausea & Vomiting 08/01/19 02:30 08/21/19 18:29 Pantoprazole (Protonix) 40 mg Q12HR IVP 08/03/19 21:00 08/31/19 08:59 08/14/19 20:17 Vancomycin HCl (Vanco rx to dose) 1 ea DAILY PRN MISC Per rx protocol 08/12/19 14:45 09/11/19 14:44 Vancomycin/Sodium Chloride 275 ml @ 183.333 mls/hr Q12H IVPB 08/14/19 17:00 08/19/19 16:59 08/14/19 16:25 Neurological/Psychiatric: Reports: anxiety Allergies: Coded Allergies: No Known Allergies (Unverified , 06/03/17) Objective Data Height (Feet): 5 Height (Inches): 6.00 Weight (Pounds): 200 General Appearance: no apparent distress, alert, confused, agitated Behavior Mannerisms: poor eye contact Speech: slurred Mental Status Exam - Suicidal: not present Additional Comments: Alert and oriented times self and place. Mood is anxious. Affect is flat. Thought process, there is a paucity of thought content. Thought content, no suicidal or homicidal ideation. Cognition is impaired. Insight and judgment are impaired. ASSESSMENT: 1. Dementia. 2. Acute encephalopathy. PLAN: 1. Continue the olanzapine 10 mg b.i.d. 2. Ativan p.r.n. 3. Discussed with the staff. Duarte Vizcarra MD Aug 14, 2019 23:37
[2019-08-15] VITALS (27 sets, daily range): BP systolic 101–197; BP diastolic 54–104
[2019-08-15] MEDS: Meropenem 1 GM in NS 55 ML IVPB SCH ×3 (00:50→16:33)
[2019-08-15] MEDS: Vancomycin 1.25gm/NS Premix q24h IVPB SCH (05:43)
[2019-08-15 07:26] LABS: BASOPHILS % (AUTO) 0.6 % (0.0-2.0); EOSINOPHILS % (AUTO) 4.8 % (0.0-3.0); HEMATOCRIT 43.8 % (42.0-52.0); HEMOGLOBIN 14.6 G/DL (14.2-18.0); LYMPHOCYTES % (AUTO) 15.4 % (20.0-45.0); MEAN CORPUSCULAR VOLUME 95 FL (80-99); MONOCYTES % (AUTO) 9.2 % (1.0-10.0); NEUTROPHILS % (AUTO) 70.1 % (45.0-75.0); PLATELET COUNT 344 K/UL (150-450); RED CELL DISTRIBUTION WIDTH 12.8 % (11.6-14.8); WHITE BLOOD COUNT 10.1 K/UL (4.8-10.8)
--- NOTE | 2019-08-15 07:55 | Nephrology Progress Note ---
Assessment/Plan Problem List: (1) AUREA (acute kidney injury) (2) Cardiopulmonary arrest (3) Respiratory failure (4) Cardiomyopathy (5) Obesity (BMI 30.0-34.9) (6) DMII (diabetes mellitus, type 2) Assessment Acute Renal Failure : AUREA Most likely due to cardiorespiratory arrest and episode of hypotension. Patient also has cardiomyopathy with Ej Fx of 40 % on admission Obese : BMI 34.4 ? DM Other Dx (1) Cardiopulmonary arrest (2) Nosocomial pneumonia (3) Acute respiratory failure (4) COPD (chronic obstructive pulmonary disease) (5) Atrial fibrillation (6) Dementia with behavioral disturbance (7) CAD (coronary artery disease) Plan Today's labs pending Patient was extubated yesterday Stable from Renal stand now- Continue pulmonary toilet Monitor renal parameters. Serum creatinine improved Monitor urine output. Urine output improved. Avoid nephrotoxics. Weaning as possible. Remains intubated at this time. Correct electrolyte imbalances. Change tube feeding to Glucerna. Subjective ROS Limited/Unobtainable: No Constitutional: Reports: malaise, weakness Objective Objective Last 24 Hour Vital Signs Date Time Temp Pulse Resp B/P (MAP) Pulse Ox O2 Delivery O2 Flow Rate FiO2 08/15/19 07:00 95 18 147/104 (118) 97 08/15/19 06:58 96 Nasal Cannula 3.0 32 08/15/19 06:00 100 18 130/101 (111) 98 08/15/19 05:20 84 13 100 30 08/15/19 05:00 88 18 101/54 (70) 98 08/15/19 04:27 Bi-pap 08/15/19 04:00 86 08/15/19 04:00 98.9 86 22 116/59 (78) 98 08/15/19 03:00 90 18 114/54 (74) 96 08/15/19 03:00 83 16 97 30 08/15/19 02:00 88 20 110/57 (74) 96 08/15/19 01:26 92 16 99 30 08/15/19 01:00 84 18 120/64 (82) 98 08/15/19 00:00 Nasal Cannula 4.0 08/15/19 00:00 100 08/15/19 00:00 98.2 90 22 120/66 (84) 97 08/14/19 23:32 102 20 96 30 08/14/19 23:00 95 24 134/69 (90) 99 08/14/19 22:00 98 24 135/61 (85) 99 08/14/19 21:44 165/82 08/14/19 21:36 99 22 165/82 (109) 95 08/14/19 21:08 97 25 168/70 (102) 96 08/14/19 21:00 96 23 170/68 (102) 95 08/14/19 20:59 108 21 95 30 08/14/19 20:57 Bi-Pap 30 08/14/19 20:18 132/103 08/14/19 20:00 Nasal Cannula 4.0 08/14/19 20:00 102 08/14/19 20:00 98.4 105 25 132/103 (113) 91 08/14/19 19:00 98 23 154/57 (89) 98 08/14/19 18:00 104 24 162/94 (116) 98 08/14/19 17:00 99 23 176/78 (110) 99 08/14/19 16:00 94 24 146/65 (92) 92 08/14/19 16:00 99 08/14/19 16:00 Nasal Cannula 4.0 08/14/19 16:00 98.2 94 24 146/65 (92) 92 08/14/19 15:00 95 24 150/65 (93) 97 08/14/19 14:00 98 25 163/70 (101) 98 08/14/19 13:00 105 23 165/69 (101) 97 08/14/19 12:55 97 Cool Aerosol 10.0 35 08/14/19 12:00 98.2 102 26 146/72 (96) 97 08/14/19 12:00 101 08/14/19 12:00 Simple Mask 10.0 08/14/19 11:00 102 24 142/65 (90) 98 08/14/19 10:00 111 23 160/65 (96) 97 08/14/19 09:00 105 26 166/79 (108) 97 08/14/19 08:49 166/79 08/14/19 08:00 98.2 107 27 92/61 (71) 97 08/14/19 08:00 108 08/14/19 08:00 Simple Mask 10.0 Intake and Output 08/14/19 08/15/19 19:00 07:00 Intake Total 820 ml 1250 ml Output Total 1090 ml 810 ml Balance -270 ml 440 ml Free Water 50 ml 200 ml IV Total 110 ml 330 ml Tube Feeding 660 ml 660 ml Other 60 ml Output Urine Total 1090 ml 810 ml Laboratory Tests 08/15/19 06:38: White Blood Count 10.1, Red Blood Count 4.60L, Hemoglobin 14.6, Hematocrit 43.8 , Mean Corpuscular Volume 95, Mean Corpuscular Hemoglobin 31.7H, Mean Corpuscular Hemoglobin Concent 33.3, Red Cell Distribution Width 12.8, Platelet Count 344, Mean Platelet Volume 5.3L, Neutrophils (%) (Auto) 70.1, Lymphocytes ( %) (Auto) 15.4L, Monocytes (%) (Auto) 9.2, Eosinophils (%) (Auto) 4.8H, Basophils (%) (Auto) 0.6, Sodium Level [Pending], Potassium Level [Pending], Chloride Level [Pending], Carbon Dioxide Level [Pending], Blood Urea Nitrogen [ Pending], Creatinine [Pending], Estimat Glomerular Filtration Rate [Pending], Glucose Level [Pending], Uric Acid [Pending], Calcium Level [Pending], Phosphorus Level [Pending], Magnesium Level [Pending], Total Bilirubin [Pending] , Aspartate Amino Transf (AST/SGOT) [Pending], Alanine Aminotransferase (ALT/ SGPT) [Pending], Alkaline Phosphatase [Pending], Pro-B-Type Natriuretic Peptide [Pending], Total Protein [Pending], Albumin [Pending], Globulin [Pending] Height (Feet): 5 Height (Inches): 6.00 Weight (Pounds): 209 General Appearance: lethargic, confused Cardiovascular: tachycardia Respiratory/Chest: decreased breath sounds Abdomen: distended Objective no change Yunior Sexton MD Aug 15, 2019 07:55
[2019-08-15 08:09] LABS: ALANINE AMINOTRANSFERASE 51 U/L (12-78); ALBUMIN 2.5 G/DL (3.4-5.0); ALBUMIN/GLOBULIN RATIO 0.7 (1.0-2.7); ALKALINE PHOSPHATASE 133 U/L (46-116); ANION GAP 4 mmol/L (5-15); ASPARTATE AMINO TRANSFERASE 28 U/L (15-37); BILIRUBIN,TOTAL 0.4 MG/DL (0.2-1.0); BLOOD UREA NITROGEN 29 mg/dL (7-18); CALCIUM 8.8 MG/DL (8.5-10.1); CARBON DIOXIDE 35 MMOL/L (21-32); CHLORIDE 110 MMOL/L (98-107); CREATININE 0.9 MG/DL (0.55-1.30); POTASSIUM 4.1 MMOL/L (3.5-5.1); SODIUM 149 MMOL/L (136-145)
[2019-08-15] MEDS: Enalapril 5mg tab NG SCH (08:25)
[2019-08-15] MEDS: Pantoprazole Inj IVP SCH ×2 (08:25→20:30)
[2019-08-15] MEDS: Amiodarone 200mg tab NG SCH (08:26)
[2019-08-15] MEDS: Heparin 5000 units/ml inj SUBQ SCH ×2 (08:27→20:30)
[2019-08-15 08:28] LABS: PHOSPHORUS 2.1 MG/DL (2.5-4.9)
--- NOTE | 2019-08-15 10:06 | Infectious Diseases Prog Note ---
Assessment/Plan Assessment/Plan ASSESSMENT: The patient is a 79-year-old male with: Leukocytosis; mild Fever , sp Sepsis, Sp Pneumonia ( probable asp), Sp RX -08/13 Scx: MDR-ACB (Tygacil LANI: 4) - CXR: 1. Streaky opacities in the right lower lung may represent atelectasis versus scarring. Left basilar opacity may represent atelectasis. Component of pneumonia is not excluded. Pulmonary vasculature congestion. -08/01 ucx NTD - sp cx: nl anastacio Urinary tract infection, SP Rx 07/31 Sp Code blue and intubation , sp extubation 08/12 Hyperlipidemia. COPD. History of GERD. History of encephalopathy. History of CAD/[place]. History of cardiomyopathy. Hypertension. PLAN: cont on Merrem 09/08 ( will cont as pt fever and WBC improved), add Colsitn INH (MDR-ACB) , DC IV Vanco # 4 3/ SP Zosyn and IV Vanco # 7/7 , -08/01 SP Rocephin day # 10 - 07/31 sp sp Dox # 6 Monitor CBC. Monitor BMP. Monitor chest x-ray cont ICU Support Rpt Cx (B,U,S) DW micro , Colistin and Doxy :P for ACB Subjective Allergies: Coded Allergies: No Known Allergies (Unverified , 06/03/17) Subjective Comfortable Objective Vital Signs Last 24 Hour Vital Signs Date Time Temp Pulse Resp B/P (MAP) Pulse Ox O2 Delivery O2 Flow Rate FiO2 08/15/19 08:25 163/85 08/15/19 08:00 98.7 106 27 163/85 (111) 96 08/15/19 08:00 Nasal Cannula 4.0 08/15/19 07:00 95 18 147/104 (118) 97 08/15/19 06:58 96 Nasal Cannula 3.0 32 08/15/19 06:00 100 18 130/101 (111) 98 08/15/19 05:20 84 13 100 30 08/15/19 05:00 88 18 101/54 (70) 98 08/15/19 04:27 Bi-pap 08/15/19 04:00 86 08/15/19 04:00 98.9 86 22 116/59 (78) 98 08/15/19 03:00 90 18 114/54 (74) 96 08/15/19 03:00 83 16 97 30 08/15/19 02:00 88 20 110/57 (74) 96 08/15/19 01:26 92 16 99 30 08/15/19 01:00 84 18 120/64 (82) 98 08/15/19 00:00 Nasal Cannula 4.0 08/15/19 00:00 100 08/15/19 00:00 98.2 90 22 120/66 (84) 97 08/14/19 23:32 102 20 96 30 08/14/19 23:00 95 24 134/69 (90) 99 08/14/19 22:00 98 24 135/61 (85) 99 08/14/19 21:44 165/82 08/14/19 21:36 99 22 165/82 (109) 95 08/14/19 21:08 97 25 168/70 (102) 96 08/14/19 21:00 96 23 170/68 (102) 95 08/14/19 20:59 108 21 95 30 08/14/19 20:57 Bi-Pap 30 08/14/19 20:18 132/103 08/14/19 20:00 Nasal Cannula 4.0 08/14/19 20:00 102 08/14/19 20:00 98.4 105 25 132/103 (113) 91 08/14/19 19:00 98 23 154/57 (89) 98 08/14/19 18:00 104 24 162/94 (116) 98 08/14/19 17:00 99 23 176/78 (110) 99 08/14/19 16:00 94 24 146/65 (92) 92 08/14/19 16:00 99 08/14/19 16:00 Nasal Cannula 4.0 08/14/19 16:00 98.2 94 24 146/65 (92) 92 08/14/19 15:00 95 24 150/65 (93) 97 08/14/19 14:00 98 25 163/70 (101) 98 08/14/19 13:00 105 23 165/69 (101) 97 08/14/19 12:55 97 Cool Aerosol 10.0 35 08/14/19 12:00 98.2 102 26 146/72 (96) 97 08/14/19 12:00 101 08/14/19 12:00 Simple Mask 10.0 08/14/19 11:00 102 24 142/65 (90) 98 Height (Feet): 5 Height (Inches): 6.00 Weight (Pounds): 209 HEENT: anicteric Respiratory/Chest: no respiratory distress Cardiovascular: regularly irregular Abdomen: no organomegaly Microbiology Date/Time Source Procedure Growth Status 08/12/19 16:50 Blood Blood Culture - Preliminary NO GROWTH AFTER 48 HOURS Resulted 08/12/19 16:35 Blood Blood Culture - Preliminary NO GROWTH AFTER 48 HOURS Resulted 08/12/19 20:30 Sputum Gram Stain - Final Resulted 08/12/19 20:30 Sputum Culture - Preliminary A.baumanii Complx - Mdr Resulted 08/12/19 20:30 Urine,Clean Catch Urine Culture - Final NO GROWTH AFTER 48 HOURS Complete Laboratory Tests Test 08/15/19 06:38 White Blood Count 10.1 K/UL (4.8-10.8) Red Blood Count 4.60 M/UL (4.70-6.10) L Hemoglobin 14.6 G/DL (14.2-18.0) Hematocrit 43.8 % (42.0-52.0) Mean Corpuscular Volume 95 FL (80-99) Mean Corpuscular Hemoglobin 31.7 PG (27.0-31.0) H Mean Corpuscular Hemoglobin Concent 33.3 G/DL (32.0-36.0) Red Cell Distribution Width 12.8 % (11.6-14.8) Platelet Count 344 K/UL (150-450) Mean Platelet Volume 5.3 FL (6.5-10.1) L Neutrophils (%) (Auto) 70.1 % (45.0-75.0) Lymphocytes (%) (Auto) 15.4 % (20.0-45.0) L Monocytes (%) (Auto) 9.2 % (1.0-10.0) Eosinophils (%) (Auto) 4.8 % (0.0-3.0) H Basophils (%) (Auto) 0.6 % (0.0-2.0) Sodium Level 149 MMOL/L (136-145) H Potassium Level 4.1 MMOL/L (3.5-5.1) Chloride Level 110 MMOL/L (98-107) H Carbon Dioxide Level 35 MMOL/L (21-32) H Anion Gap 4 mmol/L (5-15) L Blood Urea Nitrogen 29 mg/dL (7-18) H Creatinine 0.9 MG/DL (0.55-1.30) Estimat Glomerular Filtration Rate > 60 mL/min (>60) Glucose Level 132 MG/DL (74-106) H Uric Acid 3.6 MG/DL (2.6-7.2) Calcium Level 8.8 MG/DL (8.5-10.1) Phosphorus Level 2.1 MG/DL (2.5-4.9) L Magnesium Level 2.4 MG/DL (1.8-2.4) Total Bilirubin 0.4 MG/DL (0.2-1.0) Aspartate Amino Transf (AST/SGOT) 28 U/L (15-37) Alanine Aminotransferase (ALT/SGPT) 51 U/L (12-78) Alkaline Phosphatase 133 U/L (46-116) H Pro-B-Type Natriuretic Peptide 7742 pg/mL (0-125) H Total Protein 6.3 G/DL (6.4-8.2) L Albumin 2.5 G/DL (3.4-5.0) L Globulin 3.8 g/dL Albumin/Globulin Ratio 0.7 (1.0-2.7) L Current Medications Medications (Trade) Dose Ordered Sig/Amaris Route PRN Reason Start Time Stop Time Status Last Admin Dose Admin Acetaminophen (Tylenol) 650 mg Q4H PRN ORAL Mild Pain/Temp > 100.5 08/14/19 00:15 09/13/19 00:14 Amiodarone HCl (Cordarone) 200 mg DAILY NG 08/14/19 09:00 09/13/19 08:59 08/15/19 08:26 Atorvastatin Calcium (Lipitor) 40 mg BEDTIME NG 08/14/19 21:00 09/13/19 20:59 08/14/19 20:18 Clopidogrel Bisulfate (Plavix) 75 mg DAILY NG 08/14/19 09:00 09/13/19 08:59 08/15/19 08:25 Enalapril Maleate (Vasotec) 5 mg EVERY 12 HOURS NG 08/14/19 09:00 09/13/19 08:59 08/15/19 08:25 Furosemide (Lasix) 20 mg EVERY 12 HOURS IV 08/12/19 21:00 09/11/19 20:59 08/15/19 08:25 Haloperidol Lactate (Haldol) 5 mg Q6H PRN IM Agitation 08/13/19 10:15 09/27/19 10:14 08/14/19 14:37 Heparin Sodium (Porcine) (Heparin 5000 units/ml) 5,000 units EVERY 12 HOURS SUBQ 08/01/19 09:00 08/20/19 20:59 08/15/19 08:27 Hydralazine HCl (Apresoline) 10 mg Q6H PRN IV For High Blood Pressure 08/01/19 00:15 08/25/19 12:14 08/14/19 21:44 Lorazepam (Ativan 2mg/ml 1ml) 0.5 mg Q2H PRN IV For Anxiety 08/14/19 15:41 08/21/19 15:40 08/14/19 20:20 Meropenem 1 gm/ Sodium Chloride 55 ml @ 110 mls/hr Q8H IVPB 08/12/19 16:00 08/17/19 15:59 08/15/19 07:53 Ondansetron HCl (Zofran) 4 mg Q4H PRN IVP Nausea & Vomiting 08/01/19 02:30 08/21/19 18:29 Pantoprazole (Protonix) 40 mg Q12HR IVP 08/03/19 21:00 08/31/19 08:59 08/15/19 08:25 Vancomycin HCl (Vanco rx to dose) 1 ea DAILY PRN MISC Per rx protocol 08/12/19 14:45 09/11/19 14:44 Vancomycin/Sodium Chloride 275 ml @ 183.333 mls/hr Q12H IVPB 08/14/19 17:00 08/19/19 16:59 08/15/19 05:43 Angel Rudolph MD Aug 15, 2019 10:06
--- NOTE | 2019-08-15 10:27 | Pulmonolgy Critical Care Note ---
Critical Care - Asmt/Plan Problems: (1) Acute respiratory failure Assessment & Plan: resolving (2) Cardiopulmonary arrest (3) Cardiac LV ejection fraction 40% (4) Nosocomial pneumonia (5) Atrial fibrillation Assessment & Plan: controlled (6) Pulmonary edema Assessment & Plan: unchanged on CXR (7) COPD (chronic obstructive pulmonary disease) (8) CAD (coronary artery disease) (9) Dementia with behavioral disturbance Respiratory: monitor respiratory rate, adjust FIO2, CXR Cardiac: continue to monitor HR/BP Renal: F/U I&O, check electrolytes Infectious Disease: check cultures Gastrointestinal: continue feedings/current rate, abdominal imaging Endocrine: monitor blood sugar, check HgA1C Hematologic: monitor H/H Neurologic: PRN Ativan Notes Reviewed: cone [place], 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, consultants, insurance case managersupermarket manager - Objective Last 24 Hour Vital Signs Date Time Temp Pulse Resp B/P (MAP) Pulse Ox O2 Delivery O2 Flow Rate FiO2 08/15/19 08:25 163/85 08/15/19 08:00 98.7 106 27 163/85 (111) 96 08/15/19 08:00 Nasal Cannula 4.0 08/15/19 07:00 95 18 147/104 (118) 97 08/15/19 06:58 96 Nasal Cannula 3.0 32 08/15/19 06:00 100 18 130/101 (111) 98 08/15/19 05:20 84 13 100 30 08/15/19 05:00 88 18 101/54 (70) 98 08/15/19 04:27 Bi-pap 08/15/19 04:00 86 08/15/19 04:00 98.9 86 22 116/59 (78) 98 08/15/19 03:00 90 18 114/54 (74) 96 08/15/19 03:00 83 16 97 30 08/15/19 02:00 88 20 110/57 (74) 96 08/15/19 01:26 92 16 99 30 08/15/19 01:00 84 18 120/64 (82) 98 08/15/19 00:00 Nasal Cannula 4.0 08/15/19 00:00 100 08/15/19 00:00 98.2 90 22 120/66 (84) 97 08/14/19 23:32 102 20 96 30 08/14/19 23:00 95 24 134/69 (90) 99 3/12/20 22:00 98 24 135/61 (85) 99 08/14/19 21:44 165/82 08/14/19 21:36 99 22 165/82 (109) 95 08/14/19 21:08 97 25 168/70 (102) 96 08/14/19 21:00 96 23 170/68 (102) 95 08/14/19 20:59 108 21 95 30 08/14/19 20:57 Bi-Pap 30 08/14/19 20:18 132/103 08/14/19 20:00 Nasal Cannula 4.0 08/14/19 20:00 102 08/14/19 20:00 98.4 105 25 132/103 (113) 91 08/14/19 19:00 98 23 154/57 (89) 98 08/14/19 18:00 104 24 162/94 (116) 98 08/14/19 17:00 99 23 176/78 (110) 99 08/14/19 16:00 94 24 146/65 (92) 92 08/14/19 16:00 99 08/14/19 16:00 Nasal Cannula 4.0 08/14/19 16:00 98.2 94 24 146/65 (92) 92 08/14/19 15:00 95 24 150/65 (93) 97 08/14/19 14:00 98 25 163/70 (101) 98 08/14/19 13:00 105 23 165/69 (101) 97 08/14/19 12:55 97 Cool Aerosol 10.0 35 08/14/19 12:00 98.2 102 26 146/72 (96) 97 08/14/19 12:00 101 08/14/19 12:00 Simple Mask 10.0 08/14/19 11:00 102 24 142/65 (90) 98 Status: sedated HEENT: atraumatic Neck: full ROM Heart: HR/BP stable Abdomen: soft Extremities: no C/C/E Decubiti: location Micro: Microbiology Date/Time Source Procedure Growth Status 08/12/19 16:50 Blood Blood Culture - Preliminary NO GROWTH AFTER 48 HOURS Resulted 08/12/19 16:35 Blood Blood Culture - Preliminary NO GROWTH AFTER 48 HOURS Resulted 08/12/19 20:30 Sputum Gram Stain - Final Resulted 08/12/19 20:30 Sputum Culture - Preliminary A.baumanii Complx - Mdr Resulted 08/12/19 20:30 Urine,Clean Catch Urine Culture - Final NO GROWTH AFTER 48 HOURS Complete Critical Care - Subjective ROS Limited/Unobtainable: Yes Condition: critical EKG Rhythm: Sinus Rhythm FI02: 32 Vent Support Breath Rate: 18 Vent Support Mode: CPAP Vent Tidal Volume: 650 Sputum Amount: None PEEP: 5.0 PIP: 39 Tube Feeding Amount: 55 I&O: Intake and Output 08/14/19 08/15/19 19:00 07:00 Intake Total 820 ml 1250 ml Output Total 1090 ml 810 ml Balance -270 ml 440 ml Free Water 50 ml 200 ml IV Total 110 ml 330 ml Tube Feeding 660 ml 660 ml Other 60 ml Output Urine Total 1090 ml 810 ml CXR: no change ET-Tube: 7.5 ET Position: 23 Labs: Laboratory Tests Test 08/15/19 06:38 White Blood Count 10.1 K/UL (4.8-10.8) Red Blood Count 4.60 M/UL (4.70-6.10) L Hemoglobin 14.6 G/DL (14.2-18.0) Hematocrit 43.8 % (42.0-52.0) Mean Corpuscular Volume 95 FL (80-99) Mean Corpuscular Hemoglobin 31.7 PG (27.0-31.0) H Mean Corpuscular Hemoglobin Concent 33.3 G/DL (32.0-36.0) Red Cell Distribution Width 12.8 % (11.6-14.8) Platelet Count 344 K/UL (150-450) Mean Platelet Volume 5.3 FL (6.5-10.1) L Neutrophils (%) (Auto) 70.1 % (45.0-75.0) Lymphocytes (%) (Auto) 15.4 % (20.0-45.0) L Monocytes (%) (Auto) 9.2 % (1.0-10.0) Eosinophils (%) (Auto) 4.8 % (0.0-3.0) H Basophils (%) (Auto) 0.6 % (0.0-2.0) Sodium Level 149 MMOL/L (136-145) H Potassium Level 4.1 MMOL/L (3.5-5.1) Chloride Level 110 MMOL/L (98-107) H Carbon Dioxide Level 35 MMOL/L (21-32) H Anion Gap 4 mmol/L (5-15) L Blood Urea Nitrogen 29 mg/dL (7-18) H Creatinine 0.9 MG/DL (0.55-1.30) Estimat Glomerular Filtration Rate > 60 mL/min (>60) Glucose Level 132 MG/DL (74-106) H Uric Acid 3.6 MG/DL (2.6-7.2) Calcium Level 8.8 MG/DL (8.5-10.1) Phosphorus Level 2.1 MG/DL (2.5-4.9) L Magnesium Level 2.4 MG/DL (1.8-2.4) Total Bilirubin 0.4 MG/DL (0.2-1.0) Aspartate Amino Transf (AST/SGOT) 28 U/L (15-37) Alanine Aminotransferase (ALT/SGPT) 51 U/L (12-78) Alkaline Phosphatase 133 U/L (46-116) H Pro-B-Type Natriuretic Peptide 7742 pg/mL (0-125) H Total Protein 6.3 G/DL (6.4-8.2) L Albumin 2.5 G/DL (3.4-5.0) L Globulin 3.8 g/dL Albumin/Globulin Ratio 0.7 (1.0-2.7) L Nicole Graves MD Aug 15, 2019 10:27
--- NOTE | 2019-08-15 10:30 | Progress Note ---
DATE: 08/14/2019 SUBJECTIVE: The patient has spiked fever, tachycardia, but remained relatively stable. PHYSICAL EXAMINATION: VITAL SIGNS: Blood pressure 134/69, his pulse 95, respirations 24, and temperature is 98.4. HEENT: Eyes were normal. ENT, mucous membranes were moist and intact. NECK: Tracheostomy site is clean. The patient's neck was supple with no JVD without lymph node enlargement. LUNGS: Clear. HEART: Normal sounds with regular beats. There is tachycardia at rest. Sinus tachycardia on monitor. ABDOMEN: Soft, nontender, with normal bowel sounds. Gastrostomy site is clean. EXTREMITIES: Warm without cyanosis, clubbing, or edema. LABORATORY AND DIAGNOSTIC DATA: Hemoglobin is 13.4, hematocrit 39.3 with MCV of 93, WBC of 13.6, and platelets 291,000. BUN and creatinine 17 and 0.7 respectively. His sodium is 148, potassium 4.0, chloride 111, and CO2 is 31. IMPRESSION: The patient is in stable condition. . Repeat laboratory tests will be done in a.m.. Modesta Mulligan M.D. DR: Chaparro JOB#: [id number] CC:
--- NOTE | 2019-08-15 12:26 | Diagnostic Imaging Report ---
Indication: Dyspnea Comparison: 08/13/2019 A single view chest radiograph was obtained. Findings: Interstitial edema is present. Heart is enlarged. NG tube is in good position. Bones are osteopenic. IMPRESSION: No change from the prior study. Suspected mild CHF
[2019-08-15] MEDS: ZyPREXA Zydis 5mg tab ORAL SCH (12:55)
--- NOTE | 2019-08-15 15:45 | Progress Note ---
DATE: 08/15/2019 SUBJECTIVE: The patient is awake, alert, afebrile, hemodynamically stable. He does not use anymore CPAP. He is lying flat on his back. Appeared comfortable, but his respiratory rate is 26 to 30. PHYSICAL EXAMINATION: VITAL SIGNS: Blood pressure is 172/82, his pulse is 109, respirations are 27, temperature is 98.7. HEENT: Eyes were normal. ENT, mucous membranes were moist and intact. NECK: Supple with no JVD without lymph nodes. LUNGS: Clear. HEART: Normal sounds with regular beats. There is mild tachycardia at rest. ABDOMEN: Soft, nontender with normal bowel sounds. EXTREMITIES: Warm without cyanosis, clubbing, or edema. The patient is clearly irritated because of his NG tube. LABORATORY DATA: Hemoglobin is 14.6, hematocrit 43.8 with MCV of 95, WBC of 10.1, and platelets is 344. His BUN and creatinine is 29 and 0.9 respectively. His sodium is 149, potassium 4.1, chloride 110, CO2 is 35. His BNP increased to 7742. IMPRESSION: The patient has congestive heart failure. We will add carvedilol 3.25 mg via NG tube b.i.d. and we will increase enalapril to 10 mg b.i.d. Repeat laboratory tests will be done in the a.m. The patient was receiving Zyprexa orally to reduce his agitation. Modesta Mulligan M.D. DR: ZACHARY JOB#: [id number] CC:
[2019-08-15] MEDS: Haloperidol 5mg/ml Inj IM PRN ×2 (16:45→23:01)
--- NOTE | 2019-08-15 16:45 | Progress Note ---
DATE: 08/15/2019 CARDIOLOGY PROGRESS NOTE SUBJECTIVE: The patient remains on respiratory treatments, suctioning around the clock on nasal cannula with no distress. Low-grade temperature. PHYSICAL EXAMINATION: VITAL SIGNS: Blood pressure rising up to 193/87, heart rate 115, respiratory rate 26. LUNGS: Bilateral breath sounds. Rhonchi. Regular rhythm. Rapid rate. Normal S1, S2. ABDOMEN: Soft. EXTREMITIES: Trace edema. Monitored sinus with paroxysms of atrial fibrillation. LABORATORY AND DIAGNOSTIC DATA: Chest x-ray reveals interstitial edema. White count 10, hemoglobin 14.6. Sodium 149, potassium 4.1, chloride 110, bicarb 35, BUN 29, creatinine 0.9. Phosphorus 2.1. Pro-natriuretic peptide 7700. IMPRESSION: 1. Status post cardiopulmonary arrest. 2. Status post respiratory failure. 3. Paroxysmal atrial fibrillation. 4. Dehydration. 5. Hypernatremia. 6. Labile hypertension/hypertensive urgency. 7. Contraction alkalosis. PLAN: 1. Check ABG. 2. Cautious use of beta-todd. 3. Free water replacement. 4. Hold diuresis for now, pending correction of free water deficits. Saeed Sim M.D. DR: Bruno JOB#: [id number] CC:
[2019-08-15] MEDS: D5W IV SCH (16:46)
[2019-08-15] MEDS: POTASSIUM PHOSPHATE IV SCH (16:46)
[2019-08-15] MEDS: Atorvastatin 20mg tab NG SCH (20:30)
[2019-08-15] MEDS: Colistin for inhalation INH SCH (22:00)
[2019-08-16] VITALS (22 sets, daily range): BP systolic 113–175; BP diastolic 47–83
[2019-08-16] MEDS: Meropenem 1 GM in NS 55 ML IVPB SCH ×4 (00:57→23:34)
--- NOTE | 2019-08-16 01:45 | Progress Note ---
DATE: 08/15/2019 SUBJECTIVE: The patient is still in ICU. Continues to be restless and episodes of agitation. Needs frequent redirection. The patient has IM Haldol and Ativan on board. The patient has cognitive impairment. MENTAL STATUS EXAMINATION: Alert and oriented times self and place. Mood is anxious. Affect is flat. Thought process, there is a paucity of thought content. Thought content, no suicidal or homicidal ideation. Cognition is impaired. Insight and judgment are impaired. ASSESSMENT: Acute toxic encephalopathy. PLAN: 1. We will continue current medications. 2. Provide the patient with reality orientation. Duarte Vizcarra M.D. DR: CECE JOB#: [id number] CC:
[2019-08-16] MEDS: POTASSIUM PHOSPHATE IV SCH ×3 (03:30→22:48)
[2019-08-16] MEDS: D5W IV SCH ×3 (03:30→22:48)
[2019-08-16 06:46] LABS: BASOPHILS % (AUTO) 0.6 % (0.0-2.0); EOSINOPHILS % (AUTO) 3.6 % (0.0-3.0); HEMATOCRIT 41.4 % (42.0-52.0); HEMOGLOBIN 13.9 G/DL (14.2-18.0); LYMPHOCYTES % (AUTO) 12.5 % (20.0-45.0); MEAN CORPUSCULAR VOLUME 94 FL (80-99); MONOCYTES % (AUTO) 8.6 % (1.0-10.0); NEUTROPHILS % (AUTO) 74.7 % (45.0-75.0); PLATELET COUNT 321 K/UL (150-450); RED CELL DISTRIBUTION WIDTH 12.6 % (11.6-14.8)
[2019-08-16 07:11] LABS: ANION GAP 3 mmol/L (5-15); BLOOD UREA NITROGEN 29 mg/dL (7-18); CALCIUM 8.9 MG/DL (8.5-10.1); CARBON DIOXIDE 34 MMOL/L (21-32); CHLORIDE 109 MMOL/L (98-107); CREATININE 0.6 MG/DL (0.55-1.30); POTASSIUM 3.7 MMOL/L (3.5-5.1); SODIUM 146 MMOL/L (136-145)
--- NOTE | 2019-08-16 07:38 | Infectious Diseases Prog Note ---
Assessment/Plan Assessment/Plan ASSESSMENT: The patient is a 79-year-old male with: Leukocytosis; mild Fever , sp Sepsis, Sp Pneumonia ( probable asp), Sp RX -08/13 Scx: MDR-ACB (Tygacil LANI: 4) - CXR: 1. Streaky opacities in the right lower lung may represent atelectasis versus scarring. Left basilar opacity may represent atelectasis. Component of pneumonia is not excluded. Pulmonary vasculature congestion. -08/01 ucx NTD - sp cx: nl anastacio Urinary tract infection, SP Rx 07/31 Sp Code blue and intubation , sp extubation 08/12 Hyperlipidemia. COPD. History of GERD. History of encephalopathy. History of CAD/NE. History of cardiomyopathy. Hypertension. PLAN: cont on Merrem 10/08 ( will cont as pt fever and WBC improved), add Colsitn INH (MDR-ACB) #2 08/14 SP IV Vanco # 4 3/ SP Zosyn and IV Vanco # 12/08 , -08/01 SP Rocephin day # 10 - 07/31 sp sp Dox # 6 Monitor CBC. Monitor BMP. Monitor chest x-ray cont ICU Support Rpt Cx (B,U,S) discussed with RN Subjective Allergies: Coded Allergies: No Known Allergies (Unverified , 06/03/17) Subjective Afebrile. No leukocytosis. FiO2 30% pt removed naasl canula overnight so back on bipap and restraints agitated Objective Vital Signs Last 24 Hour Vital Signs Date Time Temp Pulse Resp B/P (MAP) Pulse Ox O2 Delivery O2 Flow Rate FiO2 08/16/19 07:00 87 25 157/73 (101) 96 08/16/19 06:00 81 21 166/75 (105) 98 08/16/19 05:14 88 15 100 30 08/16/19 05:00 80 20 144/67 (92) 96 08/16/19 04:00 98.4 80 17 158/73 (101) 95 08/16/19 04:00 Bi-pap 08/16/19 04:00 80 08/16/19 03:19 91 16 99 30 08/16/19 03:00 74 20 113/47 (69) 94 08/16/19 02:00 84 13 128/61 (83) 92 08/16/19 01:00 70 13 138/74 (95) 94 08/16/19 00:53 84 23 142/52 (82) 94 08/16/19 00:00 Bi-pap 08/16/19 00:00 98.0 93 24 164/74 (104) 95 08/16/19 00:00 95 08/15/19 23:51 95 22 169/73 (105) 97 08/15/19 23:21 92 28 98 Nasal Cannula 3.0 32 08/15/19 23:18 94 24 98 Nasal Cannula 3.0 32 83 28 95 08/15/19 23:11 87 28 171/71 (104) 96 08/15/19 23:01 180/92 08/15/19 23:00 90 28 194/102 (132) 93 08/15/19 22:00 85 34 170/97 (121) 08/15/19 21:29 82 20 100 Mechanical Ventilator 3.0 32 08/15/19 21:00 94 23 157/64 (95) 93 08/15/19 20:30 170/85 08/15/19 20:29 110 170/85 08/15/19 20:00 Nasal Cannula 4.0 08/15/19 20:00 111 08/15/19 20:00 98.8 115 29 170/85 (113) 99 08/15/19 19:09 96 Nasal Cannula 3.0 32 08/15/19 19:00 108 24 155/72 (99) 100 08/15/19 18:00 102 22 174/92 (119) 100 08/15/19 17:14 115 27 158/89 (112) 98 08/15/19 17:00 116 30 186/94 (124) 99 08/15/19 16:00 98.5 118 29 191/86 (121) 97 08/15/19 16:00 117 08/15/19 16:00 Nasal Cannula 4.0 08/15/19 15:24 196/94 08/15/19 15:00 115 26 193/87 (122) 97 08/15/19 14:00 105 29 178/63 (101) 95 08/15/19 13:00 110 32 197/95 (129) 95 08/15/19 12:01 102 08/15/19 12:00 Nasal Cannula 4.0 08/15/19 12:00 98.8 105 25 168/68 (101) 98 08/15/19 11:00 99 27 180/71 (107) 98 08/15/19 10:00 109 27 172/82 (112) 97 08/15/19 09:00 114 31 159/78 (105) 94 08/15/19 08:25 163/85 08/15/19 08:00 98.7 106 27 163/85 (111) 96 08/15/19 08:00 Nasal Cannula 4.0 Height (Feet): 5 Height (Inches): 6.00 Weight (Pounds): 210 General Appearance: no acute distress HEENT: normocephalic Respiratory/Chest: no respiratory distress, no accessory muscle use Cardiovascular: normal rate, regular rhythm Abdomen: soft, non tender, no mass Laboratory Tests Test 08/15/19 15:42 08/16/19 05:51 Arterial Blood pH 7.468 (7.350-7.450) Arterial Blood Partial Pressure CO2 48.2 mmHg (35.0-45.0) H Arterial Blood Partial Pressure O2 85.5 mmHg (75.0-100.0) Arterial Blood HCO3 34.1 mmol/L (22.0-26.0) H Arterial Blood Oxygen Saturation 96.9 % (95-100) Arterial Blood Base Excess 9 (-2-2) H Joe Test Positive White Blood Count 8.0 K/UL (4.8-10.8) Red Blood Count 4.40 M/UL (4.70-6.10) L Hemoglobin 13.9 G/DL (14.2-18.0) L Hematocrit 41.4 % (42.0-52.0) L Mean Corpuscular Volume 94 FL (80-99) Mean Corpuscular Hemoglobin 31.6 PG (27.0-31.0) H Mean Corpuscular Hemoglobin Concent 33.6 G/DL (32.0-36.0) Red Cell Distribution Width 12.6 % (11.6-14.8) Platelet Count 321 K/UL (150-450) Mean Platelet Volume 5.3 FL (6.5-10.1) L Neutrophils (%) (Auto) 74.7 % (45.0-75.0) Lymphocytes (%) (Auto) 12.5 % (20.0-45.0) L Monocytes (%) (Auto) 8.6 % (1.0-10.0) Eosinophils (%) (Auto) 3.6 % (0.0-3.0) H Basophils (%) (Auto) 0.6 % (0.0-2.0) Sodium Level 146 MMOL/L (136-145) H Potassium Level 3.7 MMOL/L (3.5-5.1) Chloride Level 109 MMOL/L (98-107) H Carbon Dioxide Level 34 MMOL/L (21-32) H Anion Gap 3 mmol/L (5-15) L Blood Urea Nitrogen 29 mg/dL (7-18) H Creatinine 0.6 MG/DL (0.55-1.30) Estimat Glomerular Filtration Rate > 60 mL/min (>60) Glucose Level 150 MG/DL (74-106) H Calcium Level 8.9 MG/DL (8.5-10.1) Magnesium Level 2.2 MG/DL (1.8-2.4) Pro-B-Type Natriuretic Peptide 7535 pg/mL (0-125) H Current Medications Medications (Trade) Dose Ordered Sig/Amaris Route PRN Reason Start Time Stop Time Status Last Admin Dose Admin Acetaminophen (Tylenol) 650 mg Q4H PRN ORAL Mild Pain/Temp > 100.5 08/14/19 00:15 09/13/19 00:14 Amiodarone HCl (Cordarone) 200 mg DAILY NG 08/14/19 09:00 09/13/19 08:59 08/15/19 08:26 Atorvastatin Calcium (Lipitor) 40 mg BEDTIME NG 08/15/19 21:00 09/13/19 20:59 08/15/19 20:30 Carvedilol (Coreg) 3.125 mg EVERY 12 HOURS ORAL 08/15/19 21:00 09/14/19 20:59 08/15/19 20:29 Clopidogrel Bisulfate (Plavix) 75 mg DAILY NG 08/14/19 09:00 09/13/19 08:59 08/15/19 08:25 Colistimethate Sodium (Colistin *inhalation use only*) 75 mg Q12HR@10,22 INH 08/15/19 22:00 08/22/19 21:59 08/15/19 22:00 Enalapril Maleate (Vasotec) 10 mg EVERY 12 HOURS ORAL 08/15/19 21:00 09/14/19 20:59 08/15/19 20:30 Haloperidol Lactate (Haldol) 5 mg Q6H PRN IM Agitation 08/13/19 10:15 09/27/19 10:14 08/15/19 23:01 Heparin Sodium (Porcine) (Heparin 5000 units/ml) 5,000 units EVERY 12 HOURS SUBQ 08/01/19 09:00 08/20/19 20:59 08/15/19 08:27 Hydralazine HCl (Apresoline) 10 mg Q6H PRN IV For High Blood Pressure 08/01/19 00:15 08/25/19 12:14 08/15/19 23:01 Meropenem 1 gm/ Sodium Chloride 55 ml @ 110 mls/hr Q8H IVPB 08/12/19 16:00 08/17/19 15:59 08/16/19 00:57 Olanzapine (ZyPREXA Zydis) 5 mg DAILY ORAL 08/15/19 12:00 09/29/19 11:59 08/15/19 12:55 Ondansetron HCl (Zofran) 4 mg Q4H PRN IVP Nausea & Vomiting 08/01/19 02:30 08/21/19 18:29 Pantoprazole (Protonix) 40 mg Q12HR IVP 08/03/19 21:00 08/31/19 08:59 08/15/19 20:30 Potassium Phosphate 20 meq/ Dextrose 1,004.5455 ml @ 100 mls/hr Q10H3M IV 08/15/19 17:00 09/14/19 16:59 08/16/19 03:30 Prednisone (predniSONE) 20 mg DAILY NG 08/16/19 09:00 09/15/19 08:59 Rafy Page MD Aug 16, 2019 07:38
[2019-08-16 08:33] LABS: ALANINE AMINOTRANSFERASE 36 U/L (12-78); ALBUMIN 2.2 G/DL (3.4-5.0); ALKALINE PHOSPHATASE 126 U/L (46-116); ASPARTATE AMINO TRANSFERASE 28 U/L (15-37); BILIRUBIN,TOTAL 0.4 MG/DL (0.2-1.0); PHOSPHORUS 2.6 MG/DL (2.5-4.9)
[2019-08-16] MEDS: Amiodarone 200mg tab NG SCH (08:49)
[2019-08-16] MEDS: Pantoprazole Inj IVP SCH ×2 (08:49→20:47)
[2019-08-16] MEDS: Heparin 5000 units/ml inj SUBQ SCH ×2 (08:56→20:47)
[2019-08-16 08:58] LABS: BILIRUBIN,DIRECT < 0.1 MG/DL (0.0-0.3)
[2019-08-16] MEDS: ZyPREXA Zydis 5mg tab ORAL SCH (08:58)
[2019-08-16] MEDS ORDERED: Tubing IV Secondary IV ONE (09:40)
[2019-08-16] MEDS ORDERED: NS 275ml ONE ×2 (09:40→09:50)
--- NOTE | 2019-08-16 09:46 | Nephrology Progress Note ---
Assessment/Plan Problem List: (1) AUREA (acute kidney injury) (2) Cardiopulmonary arrest (3) Respiratory failure (4) Cardiomyopathy (5) Obesity (BMI 30.0-34.9) (6) DMII (diabetes mellitus, type 2) Assessment Acute Renal Failure : AUREA Most likely due to cardiorespiratory arrest and episode of hypotension. Patient also has cardiomyopathy with Ej Fx of 40 % on admission Obese : BMI 34.4 ? DM Other Dx (1) Cardiopulmonary arrest (2) Nosocomial pneumonia (3) Acute respiratory failure (4) COPD (chronic obstructive pulmonary disease) (5) Atrial fibrillation (6) Dementia with behavioral disturbance (7) CAD (coronary artery disease) Plan Patient is extubated now Stable from Renal stand now- Continue pulmonary toilet Monitor renal parameters. Serum creatinine improved Monitor urine output. Urine output improved. Avoid nephrotoxics. Weaning as possible. Remains intubated at this time. Correct electrolyte imbalances. Change tube feeding to Glucerna. Subjective ROS Limited/Unobtainable: No Constitutional: Reports: malaise, weakness Objective Objective Last 24 Hour Vital Signs Date Time Temp Pulse Resp B/P (MAP) Pulse Ox O2 Delivery O2 Flow Rate FiO2 08/16/19 08:51 174/80 08/16/19 08:50 97 174/80 08/16/19 07:54 98 Bi-Pap 30 08/16/19 07:54 92 25 96 30 08/16/19 07:00 87 25 157/73 (101) 96 08/16/19 06:00 81 21 166/75 (105) 98 08/16/19 05:14 88 15 100 30 08/16/19 05:00 80 20 144/67 (92) 96 08/16/19 04:00 98.4 80 17 158/73 (101) 95 08/16/19 04:00 Bi-pap 08/16/19 04:00 80 08/16/19 03:19 91 16 99 30 08/16/19 03:00 74 20 113/47 (69) 94 08/16/19 02:00 84 13 128/61 (83) 92 08/16/19 01:00 70 13 138/74 (95) 94 08/16/19 00:53 84 23 142/52 (82) 94 08/16/19 00:00 Bi-pap 08/16/19 00:00 98.0 93 24 164/74 (104) 95 08/16/19 00:00 95 08/15/19 23:51 95 22 169/73 (105) 97 08/15/19 23:21 92 28 98 Nasal Cannula 3.0 32 08/15/19 23:18 94 24 98 Nasal Cannula 3.0 32 83 28 95 08/15/19 23:11 87 28 171/71 (104) 96 08/15/19 23:01 180/92 08/15/19 23:00 90 28 194/102 (132) 93 08/15/19 22:00 85 34 170/97 (121) 08/15/19 21:29 82 20 100 Mechanical Ventilator 3.0 32 08/15/19 21:00 94 23 157/64 (95) 93 08/15/19 20:30 170/85 08/15/19 20:29 110 170/85 08/15/19 20:00 Nasal Cannula 4.0 08/15/19 20:00 111 08/15/19 20:00 98.8 115 29 170/85 (113) 99 08/15/19 19:09 96 Nasal Cannula 3.0 32 08/15/19 19:00 108 24 155/72 (99) 100 08/15/19 18:00 102 22 174/92 (119) 100 08/15/19 17:14 115 27 158/89 (112) 98 08/15/19 17:00 116 30 186/94 (124) 99 08/15/19 16:00 98.5 118 29 191/86 (121) 97 08/15/19 16:00 117 08/15/19 16:00 Nasal Cannula 4.0 08/15/19 15:24 196/94 08/15/19 15:00 115 26 193/87 (122) 97 08/15/19 14:00 105 29 178/63 (101) 95 08/15/19 13:00 110 32 197/95 (129) 95 08/15/19 12:01 102 08/15/19 12:00 Nasal Cannula 4.0 08/15/19 12:00 98.8 105 25 168/68 (101) 98 08/15/19 11:00 99 27 180/71 (107) 98 08/15/19 10:00 109 27 172/82 (112) 97 Intake and Output 08/15/19 08/16/19 19:00 07:00 Intake Total 1093.09846 ml 2125 ml Output Total 875 ml 535 ml Balance 218.98597 ml 1590 ml Free Water 100 ml 200 ml IV Total 333.52091 ml 1205 ml Tube Feeding 660 ml 660 ml Other 60 ml Output Urine Total 875 ml 535 ml # Bowel Movements 3 2 Laboratory Tests 08/15/19 15:42: Arterial Blood pH 7.468H, Arterial Blood Partial Pressure CO2 48.2H, Arterial Blood Partial Pressure O2 85.5, Arterial Blood HCO3 34.1H, Arterial Blood Oxygen Saturation 96.9, Arterial Blood Base Excess 9H, Joe Test Positive 08/16/19 05:51: White Blood Count 8.0, Red Blood Count 4.40L, Hemoglobin 13.9L, Hematocrit 41.4L , Mean Corpuscular Volume 94, Mean Corpuscular Hemoglobin 31.6H, Mean Corpuscular Hemoglobin Concent 33.6, Red Cell Distribution Width 12.6, Platelet Count 321, Mean Platelet Volume 5.3L, Neutrophils (%) (Auto) 74.7, Lymphocytes ( %) (Auto) 12.5L, Monocytes (%) (Auto) 8.6, Eosinophils (%) (Auto) 3.6H, Basophils (%) (Auto) 0.6, Sodium Level 146H, Potassium Level 3.7, Chloride Level 109H, Carbon Dioxide Level 34H, Anion Gap 3L, Blood Urea Nitrogen 29H, Creatinine 0.6, Estimat Glomerular Filtration Rate > 60, Glucose Level 150H, Calcium Level 8.9, Phosphorus Level 2.6, Magnesium Level 2.2, Total Bilirubin 0.4, Direct Bilirubin < 0.1, Aspartate Amino Transf (AST/SGOT) 28, Alanine Aminotransferase (ALT/SGPT) 36, Alkaline Phosphatase 126H, Pro-B-Type Natriuretic Peptide 7535H, Total Protein 5.6L, Albumin 2.2L Height (Feet): 5 Height (Inches): 6.00 Weight (Pounds): 210 General Appearance: no apparent distress EENT: other - On BiPAP alternate with oxygen by cannula Cardiovascular: tachycardia Respiratory/Chest: decreased breath sounds Abdomen: distended Objective no change Yunior Sexton MD Aug 16, 2019 09:46
[2019-08-16] MEDS: Colistin for inhalation INH SCH ×2 (10:14→22:24)
--- NOTE | 2019-08-16 11:31 | Diagnostic Imaging Report ---
EXAM: XR Chest, 1 View CLINICAL HISTORY: S/P INTUB TECHNIQUE: Frontal view of the chest. COMPARISON: Chest radiograph on 08/15/2019 FINDINGS: Hardware: Enteric tube terminates in the region of the gastric antrum. Lungs/pleura: Bilateral pleural effusions with associated atelectasis versus pneumonia. Pulmonary vasculature congestion. Heart/mediastinum: Mild enlargement of the cardiac silhouette. Soft tissues: Unremarkable. Bones: No acute fracture. Upper abdomen: Normal. IMPRESSION: Bilateral pleural effusions with associated atelectasis versus pneumonia. Pulmonary vasculature congestion.
[2019-08-16] MEDS ORDERED: Albuterol/Ipratropium 3ml neb HHN PRN ×2 (13:45→22:00)
--- NOTE | 2019-08-16 13:54 | Pulmonolgy Critical Care Note ---
Critical Care - Asmt/Plan Assessment/Plan: ASSESSMENT s/p cardiopulmonary arrest Acute hypoxemic respiratory failure requiring intubation, status post extubation 08/12 Sepsis Pneumonia , likely aspiration pneumonia, with ACB-MDR UTI with Klebsiella, status post treatment Elevated troponin, likely NSTEMI Shock- resolved Acute kidney injury -resolved Cardiomyopathy with EF 40% Paroxysmal atrial fibrillation CAD COPD Pulmonary edema Hypertensive urgency Dehydration Hypernatremia Dementia with behavioral disturbances PLAN OF CARE s/p extubation 08/12 was on BiPAP 15/5/ FiO2 30%, was able to wean to 4L O2 via NC this am pulm toilet fup with CXR po steroids and taper DVT and GI prophylaxis ECHO woth EF 40% elevated troponin, likely NSTEMI a/PLT therapy, BB, statin cardio on board s/p diuresis , monitor volumes BP management and optimize further as needed - as per cardio continue Amiodarone, remains in SR with BBB AUREA resolved per nephro likely due to shock and sepsis avoid nephrotoxics, replace lytes as needed received some fluids, consider dc soon supportive care transfer to tele case discussed and evaluated by supervising physician Critical Care - Objective Last 24 Hour Vital Signs Date Time Temp Pulse Resp B/P (MAP) Pulse Ox O2 Delivery O2 Flow Rate FiO2 08/16/19 13:18 171/75 08/16/19 12:00 98.5 88 20 163/79 (107) 96 08/16/19 12:00 Nasal Cannula 4.0 08/16/19 11:00 84 20 155/59 (91) 98 08/16/19 10:14 94 24 98 Nasal Cannula 4.0 36 82 21 98 08/16/19 10:00 85 20 175/58 (97) 98 08/16/19 09:00 86 22 157/83 (107) 98 08/16/19 08:51 174/80 08/16/19 08:50 97 174/80 08/16/19 08:00 98.0 87 20 166/73 (104) 96 08/16/19 08:00 Bi-pap 08/16/19 08:00 84 08/16/19 07:54 98 Bi-Pap 30 08/16/19 07:54 92 25 96 30 08/16/19 07:00 87 25 157/73 (101) 96 08/16/19 06:00 81 21 166/75 (105) 98 08/16/19 05:14 88 15 100 30 08/16/19 05:00 80 20 144/67 (92) 96 08/16/19 04:00 98.4 80 17 158/73 (101) 95 08/16/19 04:00 Bi-pap 08/16/19 04:00 80 08/16/19 03:19 91 16 99 30 08/16/19 03:00 74 20 113/47 (69) 94 08/16/19 02:00 84 13 128/61 (83) 92 08/16/19 01:00 70 13 138/74 (95) 94 08/16/19 00:53 84 23 142/52 (82) 94 08/16/19 00:00 Bi-pap 08/16/19 00:00 98.0 93 24 164/74 (104) 95 08/16/19 00:00 95 08/15/19 23:51 95 22 169/73 (105) 97 08/15/19 23:21 92 28 98 Nasal Cannula 3.0 32 08/15/19 23:18 94 24 98 Nasal Cannula 3.0 32 83 28 95 08/15/19 23:11 87 28 171/71 (104) 96 08/15/19 23:01 180/92 08/15/19 23:00 90 28 194/102 (132) 93 08/15/19 22:00 85 34 170/97 (121) 08/15/19 21:29 82 20 100 Mechanical Ventilator 3.0 32 08/15/19 21:00 94 23 157/64 (95) 93 08/15/19 20:30 170/85 08/15/19 20:29 110 170/85 08/15/19 20:00 Nasal Cannula 4.0 08/15/19 20:00 111 08/15/19 20:00 98.8 115 29 170/85 (113) 99 08/15/19 19:09 96 Nasal Cannula 3.0 32 08/15/19 19:00 108 24 155/72 (99) 100 08/15/19 18:00 102 22 174/92 (119) 100 08/15/19 17:14 115 27 158/89 (112) 98 08/15/19 17:00 116 30 186/94 (124) 99 08/15/19 16:00 98.5 118 29 191/86 (121) 97 08/15/19 16:00 117 08/15/19 16:00 Nasal Cannula 4.0 08/15/19 15:24 196/94 08/15/19 15:00 115 26 193/87 (122) 97 08/15/19 14:00 105 29 178/63 (101) 95 Status: awake Condition: improving HEENT: atraumatic, normocephalic, other - on O2 via NC Neck: full ROM, other Lungs: rhonchi - few isolated rhonchi, Heart: HR/BP stable Abdomen: soft, non-tender, active bowel sounds Extremities: no C/C/E Critical Care - Subjective Interval Events: leuk resolved no fevers since 08/11 weaned from BiPAP to NC Condition: improving EKG Rhythm: Sinus Rhythm - with BBB Vent Support Mode: CPAP Sputum Amount: Small Tube Feeding Amount: 55 I&O: Intake and Output 08/15/19 08/16/19 19:00 07:00 Intake Total 1093.67224 ml 2125 ml Output Total 875 ml 535 ml Balance 218.50564 ml 1590 ml Free Water 100 ml 200 ml IV Total 333.02131 ml 1205 ml Tube Feeding 660 ml 660 ml Other 60 ml Output Urine Total 875 ml 535 ml # Bowel Movements 3 2 CXR: \CXR 08/15 Bilateral pleural effusions with associated atelectasis versus pneumonia. Pulmonary vasculature congestion. Laura Cantu NP Aug 16, 2019 13:54
[2019-08-16] MEDS ORDERED: Spironolactone 25mg tab NG SCH (18:00)
[2019-08-16] MEDS: Atorvastatin 20mg tab NG SCH (20:47)
--- NOTE | 2019-08-16 21:15 | Progress Note ---
DATE: 08/16/2019 HISTORY OF PRESENT ILLNESS: The patient is afebrile, hemodynamically stable. He remained tachypneic, but maintained his saturations without need to intubate him. PHYSICAL EXAMINATION: VITAL SIGNS: Blood pressure is 135/61, his pulse is 75, respirations of 24, and temperature 98.3. HEENT: Eyes were normal. ENT, mucous membranes were moist and intact. NECK: Supple with no JVD. LUNGS: Clear. HEART: Normal sounds with regular beats. ABDOMEN: Soft and nontender with normal bowel sounds. EXTREMITIES: Warm without cyanosis, clubbing, or edema. LABORATORY AND DIAGNOSTIC DATA: Hemoglobin is 13.9, hematocrit 41.4 with MCV of 94, WBC of 8, and platelet is 321,000. His BUN and creatinine is 29 and 0.6 respectively. Sodium is 136, potassium 3.7, chloride 99, CO2 is 34. His calcium is 8.9. His phosphorus is 2.6. His uric acid is 3.6. SGOT, SGPT, and alkaline phosphatase are normal. Albumin is 2.2 and total protein is 5.6. BNP was not done as yet. His chest x-ray showed bilateral pleural effusion with associated atelectasis with pulmonary vascular congestion and moderate cardiomegaly. IMPRESSION: The patient has bilateral atelectasis. In addition, the patient has diastolic congestive heart failure for which he is on enalapril 10 mg b.i.d., carvedilol 3.125 b.i.d., from 100-110 yesterday to 80-90 today. We will add spironolactone 25 mg daily. Repeat laboratory tests will be done in the morning. Modesta Mulligan M.D. DR: Curtis JOB#: [id number] CC:
[2019-08-16] MEDS ORDERED: Haloperidol 5mg/ml Inj IM PRN (22:15)
--- NOTE | 2019-08-16 23:15 | Progress Note ---
DATE: 08/16/2019 CARDIOLOGY PROGRESS NOTE SUBJECTIVE: This patient's condition is slightly improved. Still with congestion. On low flow oxygen, saturating 91% to 98%. Episodes of sinus tachycardia noted. PHYSICAL EXAMINATION: VITAL SIGNS: Blood pressure 159/62, heart rate 70, respiratory rate 20, and afebrile. LUNGS: Diminished breath sounds with rhonchi. CARDIAC: Regular rhythm and rate. Normal S1 and S2. Monitored sinus with paroxysmal atrial fibrillation. ABDOMEN: Soft. EXTREMITIES: No edema. LABORATORY DATA: White count 8 and hemoglobin 13.9. Sodium 146, potassium 3.7, bicarb 34, BUN 29, and creatinine 0.6. Pro-natriuretic peptide 7500. Albumin 2.2. ABG - 7.47, 48, and 85. IMPRESSION: 1. Dehydration. 2. Hypernatremia and free water deficit, improved with hypotonic IV fluids. 3. Hypertensive heart disease. 4. Acute on chronic diastolic and systolic congestive heart failure. 5. Paroxysmal atrial fibrillation. 6. Ischemic cardiomyopathy, status post non-ST elevation myocardial infarction. 7. Pleural effusions. PLAN: 1. Resume diuresis. 2. Continue free water replacement. 3. Titrate anti-failure drugs. 4. Maintain amiodarone for suppression of atrial arrhythmias. 5. Respiratory hygiene. Saeed Sim M.D. DR: LIZETTE JOB#: [id number] CC:
[2019-08-17] VITALS (7 sets, daily range): BP systolic 138–163; BP diastolic 64–83
[2019-08-17 06:28] LABS: BASOPHILS % (AUTO) 0.6 % (0.0-2.0); EOSINOPHILS % (AUTO) 2.4 % (0.0-3.0); HEMATOCRIT 43.3 % (42.0-52.0); HEMOGLOBIN 14.4 G/DL (14.2-18.0); MEAN CORPUSCULAR VOLUME 94 FL (80-99); MONOCYTES % (AUTO) 9.5 % (1.0-10.0); NEUTROPHILS % (AUTO) 72.5 % (45.0-75.0); PLATELET COUNT 316 K/UL (150-450); RED BLOOD COUNT 4.63 M/UL (4.70-6.10); RED CELL DISTRIBUTION WIDTH 12.7 % (11.6-14.8); WHITE BLOOD COUNT 9.4 K/UL (4.8-10.8)
[2019-08-17 06:54] LABS: ANION GAP 5 mmol/L (5-15); BLOOD UREA NITROGEN 25 mg/dL (7-18); CARBON DIOXIDE 34 MMOL/L (21-32); CHLORIDE 105 MMOL/L (98-107); CREATININE 0.7 MG/DL (0.55-1.30); POTASSIUM 4.3 MMOL/L (3.5-5.1); SODIUM 144 MMOL/L (136-145)
--- NOTE | 2019-08-17 08:15 | Pulmonology Progress Note ---
Assessment/Plan Assessment/Plan ASSESSMENT s/p cardiopulmonary arrest Acute hypoxemic respiratory failure requiring intubation, status post extubation 08/12 Sepsis Pneumonia , likely aspiration pneumonia, with ACB-MDR UTI with Klebsiella, status post treatment Elevated troponin, likely NSTEMI Shock- resolved Acute kidney injury -resolved Cardiomyopathy with EF 40% Paroxysmal atrial fibrillation CAD COPD Pulmonary edema Hypertensive urgency Dehydration Hypernatremia Dementia with behavioral disturbances PLAN OF CARE in [facility] s/p extubation 08/12 was on BiPAP 15/5/ FiO2 30%, was able to wean to 4L O2 via NC this am pulm toilet fup with CXR po steroids and taper DVT and GI prophylaxis ECHO with EF 40% elevated troponin, likely NSTEMI a/PLT therapy, BB, statin cardio on board s/p diuresis , monitor volumes BP management and optimize further as needed - as per cardio continue Amiodarone, remains in SR with BBB AUREA resolved per nephro likely due to shock and sepsis avoid nephrotoxics, replace lytes as needed received some fluids, consider dc soon supportive care case discussed and evaluated by supervising physician Subjective Allergies: Coded Allergies: No Known Allergies (Unverified , 06/03/17) Subjective transferred to [facility] no fevers no signs of res distress on O2 via NC ( weaned from BiPAP) Objective Last 24 Hour Vital Signs Date Time Temp Pulse Resp B/P (MAP) Pulse Ox O2 Delivery O2 Flow Rate FiO2 08/17/19 04:28 161/82 08/17/19 04:00 97.7 79 18 161/82 (108) 96 08/17/19 04:00 Bi-pap 08/17/19 04:00 79 08/17/19 01:02 88 24 98 30 08/17/19 00:12 30 08/17/19 00:00 69 08/17/19 00:00 97.3 98 18 144/83 (103) 96 08/17/19 00:00 Bi-pap 08/16/19 23:33 87 16 97 30 08/16/19 22:26 82 17 98 Nasal Cannula 3.0 32 80 18 96 08/16/19 20:46 107 147/66 08/16/19 20:45 147/66 08/16/19 20:00 94 Nasal Cannula 3.0 32 08/16/19 20:00 97.0 103 20 147/66 (93) 91 08/16/19 19:00 70 20 159/62 (94) 98 08/16/19 18:00 81 20 152/61 (91) 97 08/16/19 17:00 86 20 151/62 (91) 98 08/16/19 16:00 85 08/16/19 16:00 Nasal Cannula 4.0 08/16/19 16:00 98.3 75 20 135/61 (85) 96 08/16/19 15:00 95 20 158/57 (90) 98 08/16/19 14:00 85 20 168/71 (103) 98 08/16/19 13:54 08/16/19 13:18 171/75 08/16/19 13:00 75 20 171/75 (107) 97 08/16/19 12:00 98.5 88 20 163/79 (107) 96 08/16/19 12:00 90 08/16/19 12:00 Nasal Cannula 4.0 08/16/19 11:00 84 20 155/59 (91) 98 08/16/19 10:14 94 24 98 Nasal Cannula 4.0 36 82 21 98 08/16/19 10:00 85 20 175/58 (97) 98 08/16/19 09:00 86 22 157/83 (107) 98 08/16/19 08:51 174/80 08/16/19 08:50 97 174/80 Intake and Output 08/16/19 08/17/19 19:00 07:00 Intake Total 650 ml 1305 ml Output Total 375 ml 1950 ml Balance 275 ml -645 ml Free Water 100 ml 100 ml IV Total 875 ml Tube Feeding 550 ml 330 ml Output Urine Total 375 ml 1950 ml # Bowel Movements 1 4 Objective Gen: obese, in NAD male HEENT: atraumatic, normocephalic, on O2 via NC Neck: full ROM, other Lungs: few isolated rhonchi, Heart: HR/BP stable Abdomen: soft, non-tender, active bowel sounds Extremities: no C/C/E Laboratory Tests 08/17/19 03:51: White Blood Count 9.4, Red Blood Count 4.63L, Hemoglobin 14.4, Hematocrit 43.3, Mean Corpuscular Volume 94, Mean Corpuscular Hemoglobin 31.2H, Mean Corpuscular Hemoglobin Concent 33.3, Red Cell Distribution Width 12.7, Platelet Count 316, Mean Platelet Volume 5.3L, Neutrophils (%) (Auto) 72.5, Lymphocytes (%) (Auto) 15.0L, Monocytes (%) (Auto) 9.5, Eosinophils (%) (Auto) 2.4, Basophils (%) (Auto ) 0.6, Sodium Level 144, Potassium Level 4.3, Chloride Level 105, Carbon Dioxide Level 34H, Anion Gap 5, Blood Urea Nitrogen 25H, Creatinine 0.7, Estimat Glomerular Filtration Rate > 60, Glucose Level 117H, Calcium Level 9.0, Pro-B-Type Natriuretic Peptide 5459H Current Medications Medications (Trade) Dose Ordered Sig/[facility] Route PRN Reason Start Time Stop Time Status Last Admin Dose Admin Acetaminophen (Tylenol) 650 mg Q4H PRN ORAL Mild Pain/Temp > 100.5 08/16/19 22:00 09/15/19 21:59 Albuterol/ Ipratropium (Albuterol/ Ipratropium) 3 ml Q4H PRN HHN Shortness of Breath 08/16/19 22:00 08/21/19 21:59 Amiodarone HCl (Cordarone) 200 mg DAILY NG 08/17/19 09:00 09/13/19 08:59 Atorvastatin Calcium (Lipitor) 40 mg BEDTIME NG 08/17/19 21:00 09/13/19 20:59 Carvedilol (Coreg) 3.125 mg EVERY 12 HOURS ORAL 08/17/19 09:00 09/14/19 20:59 Clopidogrel Bisulfate (Plavix) 75 mg DAILY NG 08/17/19 09:00 09/13/19 08:59 Colistimethate Sodium (Colistin *inhalation use only*) 75 mg Q12HR@10,22 INH 08/16/19 22:00 08/22/19 21:59 08/16/19 22:24 Enalapril Maleate (Vasotec) 10 mg EVERY 12 HOURS ORAL 08/17/19 09:00 09/14/19 20:59 Furosemide (Lasix) 40 mg DAILY IV 08/17/19 09:00 09/16/19 08:59 Haloperidol Lactate (Haldol) 5 mg Q6H PRN IM Agitation 08/16/19 22:15 09/27/19 10:14 Heparin Sodium (Porcine) (Heparin 5000 units/ml) 5,000 units EVERY 12 HOURS SUBQ 08/17/19 09:00 08/20/19 20:59 Hydralazine HCl (Apresoline) 10 mg Q6H PRN IV For High Blood Pressure 08/16/19 22:00 09/15/19 21:59 08/17/19 04:28 Meropenem 1 gm/ Sodium Chloride 55 ml @ 110 mls/hr Q8H IVPB 08/17/19 00:00 08/18/19 23:59 08/16/19 23:34 Olanzapine (ZyPREXA Zydis) 5 mg DAILY ORAL 08/17/19 09:00 09/29/19 11:59 Ondansetron HCl (Zofran) 4 mg Q4H PRN IVP Nausea & Vomiting 08/16/19 22:00 08/21/19 21:59 Pantoprazole (Protonix) 40 mg Q12HR IVP 08/17/19 09:00 08/31/19 08:59 Potassium Phosphate 20 meq/ Dextrose 1,004.5455 ml @ 100 mls/hr Q10H3M IV 08/16/19 23:00 09/14/19 22:59 08/16/19 22:48 Prednisone (predniSONE) 20 mg DAILY NG 08/17/19 09:00 09/15/19 08:59 Spironolactone (Aldactone) 25 mg DAILY NG 08/17/19 09:00 09/15/19 17:59 Laura Cantu [employer] Aug 17, 2019 08:15
[2019-08-17] MEDS: Meropenem 1 GM in NS 55 ML IVPB SCH ×3 (08:42→23:46)
[2019-08-17] MEDS: Pantoprazole Inj IVP SCH ×2 (08:43→20:25)
[2019-08-17] MEDS: Heparin 5000 units/ml inj SUBQ SCH ×2 (08:48→20:25)
[2019-08-17] MEDS ORDERED: ZyPREXA Zydis 5mg tab ORAL SCH (09:00)
[2019-08-17] MEDS ORDERED: Spironolactone 25mg tab NG SCH (09:00)
[2019-08-17] MEDS ORDERED: Amiodarone 200mg tab NG SCH (09:00)
[2019-08-17] MEDS: POTASSIUM PHOSPHATE IV SCH ×2 (09:23→20:24)
[2019-08-17] MEDS: D5W IV SCH ×2 (09:23→20:24)
[2019-08-17] MEDS: Colistin for inhalation INH SCH ×2 (09:54→22:53)
--- NOTE | 2019-08-17 10:14 | Nephrology Progress Note ---
Assessment/Plan Problem List: (1) AUREA (acute kidney injury) (2) Cardiopulmonary arrest (3) Respiratory failure (4) Cardiomyopathy (5) Obesity (BMI 30.0-34.9) (6) DMII (diabetes mellitus, type 2) Assessment Acute Renal Failure : AUREA Most likely due to cardiorespiratory arrest and episode of hypotension. Patient also has cardiomyopathy with Ej Fx of 40 % on admission Obese : BMI 34.4 ? DM Other Dx (1) Cardiopulmonary arrest (2) Nosocomial pneumonia (3) Acute respiratory failure (4) COPD (chronic obstructive pulmonary disease) (5) Atrial fibrillation (6) Dementia with behavioral disturbance (7) CAD (coronary artery disease) Plan Patient is extubated now Stable from Renal stand now- Continue pulmonary toilet Monitor renal parameters. Serum creatinine improved Monitor urine output. Urine output improved. Avoid nephrotoxics. Weaning as possible. Remains intubated at this time. Correct electrolyte imbalances. Change tube feeding to Glucerna. Subjective ROS Limited/Unobtainable: No Constitutional: Reports: malaise, weakness Objective Objective Last 24 Hour Vital Signs Date Time Temp Pulse Resp B/P (MAP) Pulse Ox O2 Delivery O2 Flow Rate FiO2 08/17/19 10:04 90 18 100 Nasal Cannula 4.0 36 86 18 98 08/17/19 09:54 86 18 98 Nasal Cannula 4.0 36 08/17/19 09:54 98 Nasal Cannula 4.0 36 08/17/19 08:44 102 138/70 08/17/19 08:43 138/70 08/17/19 08:00 98.1 102 18 138/70 (92) 97 08/17/19 08:00 Nasal Cannula 4.0 08/17/19 08:00 97 08/17/19 04:28 161/82 08/17/19 04:00 97.7 79 18 161/82 (108) 96 08/17/19 04:00 Bi-pap 08/17/19 04:00 79 08/17/19 01:02 88 24 98 30 08/17/19 00:12 30 08/17/19 00:00 69 08/17/19 00:00 97.3 98 18 144/83 (103) 96 08/17/19 00:00 Bi-pap 08/16/19 23:33 87 16 97 30 08/16/19 22:26 82 17 98 Nasal Cannula 3.0 32 80 18 96 08/16/19 20:46 107 147/66 08/16/19 20:45 147/66 08/16/19 20:00 94 Nasal Cannula 3.0 32 08/16/19 20:00 97.0 103 20 147/66 (93) 91 08/16/19 19:00 70 20 159/62 (94) 98 08/16/19 18:00 81 20 152/61 (91) 97 08/16/19 17:00 86 20 151/62 (91) 98 08/16/19 16:00 85 08/16/19 16:00 Nasal Cannula 4.0 08/16/19 16:00 98.3 75 20 135/61 (85) 96 08/16/19 15:00 95 20 158/57 (90) 98 08/16/19 14:00 85 20 168/71 (103) 98 08/16/19 13:54 08/16/19 13:18 171/75 08/16/19 13:00 75 20 171/75 (107) 97 08/16/19 12:00 98.5 88 20 163/79 (107) 96 08/16/19 12:00 90 08/16/19 12:00 Nasal Cannula 4.0 08/16/19 11:00 84 20 155/59 (91) 98 Intake and Output 08/16/19 08/17/19 19:00 07:00 Intake Total 650 ml 1305 ml Output Total 375 ml 1950 ml Balance 275 ml -645 ml Free Water 100 ml 100 ml IV Total 875 ml Tube Feeding 550 ml 330 ml Output Urine Total 375 ml 1950 ml # Bowel Movements 1 4 Laboratory Tests 08/17/19 03:51: White Blood Count 9.4, Red Blood Count 4.63L, Hemoglobin 14.4, Hematocrit 43.3, Mean Corpuscular Volume 94, Mean Corpuscular Hemoglobin 31.2H, Mean Corpuscular Hemoglobin Concent 33.3, Red Cell Distribution Width 12.7, Platelet Count 316, Mean Platelet Volume 5.3L, Neutrophils (%) (Auto) 72.5, Lymphocytes (%) (Auto) 15.0L, Monocytes (%) (Auto) 9.5, Eosinophils (%) (Auto) 2.4, Basophils (%) (Auto ) 0.6, Sodium Level 144, Potassium Level 4.3, Chloride Level 105, Carbon Dioxide Level 34H, Anion Gap 5, Blood Urea Nitrogen 25H, Creatinine 0.7, Estimat Glomerular Filtration Rate > 60, Glucose Level 117H, Calcium Level 9.0, Pro-B-Type Natriuretic Peptide 5459H Height (Feet): 5 Height (Inches): 6.00 Weight (Pounds): 214 General Appearance: confused, mild distress Cardiovascular: tachycardia Respiratory/Chest: decreased breath sounds Abdomen: distended Objective no change Yunior Sexton MD Aug 17, 2019 10:14
[2019-08-17 10:41] LABS: ALANINE AMINOTRANSFERASE 44 U/L (12-78); ALBUMIN 2.2 G/DL (3.4-5.0); ALKALINE PHOSPHATASE 149 U/L (46-116); ASPARTATE AMINO TRANSFERASE 43 U/L (15-37); BILIRUBIN,DIRECT < 0.1 MG/DL (0.0-0.3); BILIRUBIN,TOTAL 0.3 MG/DL (0.2-1.0); PHOSPHORUS 3.4 MG/DL (2.5-4.9)
[2019-08-17] MEDS ORDERED: NS 275ml ONE (13:57)
[2019-08-17] MEDS ORDERED: Carvedilol 6.25mg Tab ORAL SCH (21:00)
[2019-08-17] MEDS ORDERED: Atorvastatin 20mg tab NG SCH (21:00)
--- NOTE | 2019-08-17 21:00 | Progress Note ---
DATE: 08/17/2019 SUBJECTIVE: The patient is awake alert, afebrile, hemodynamically stable. He is substantially more calm than yesterday and his respiratory rate is substantially lower. PHYSICAL EXAMINATION: VITAL SIGNS: Blood pressure is 138/70, his pulse is 102, respirations 20 to 22, and temperature is 98.1. HEENT: Eyes were normal. ENT, mucous membranes are moist. NECK: Supple with no JVD without lymph nodes. LUNGS: Clear. HEART: Normal sounds with irregular beats. ABDOMEN: Soft and nontender with normal bowel sounds. EXTREMITIES: Warm without cyanosis, clubbing, or edema. LABORATORY AND DIAGNOSTIC DATA: Hemoglobin is 14.4, hematocrit 43.3 with MCV of 94, WBC of 9.4, and platelets of 316. His BUN and creatinine is 25 and 0.7 respectively. Sodium is 144, potassium 4.3, chloride 105, CO2 is 34, his phosphorus is 3.4, his magnesium is 2. His proBNP declined from 7500 to 5400. IMPRESSION AND PLAN: The patient's respiratory rate and congestive heart failure are improving. Repeat laboratory tests will be done in the a.m. Carvedilol will be raised from 3.125 to 6.25 mg. Modesta Mulligan M.D. DR: MELY JOB#: [id number] CC:
[2019-08-18] VITALS (63 sets, daily range): BP systolic 51–137; BP diastolic 19–96
--- NOTE | 2019-08-18 03:00 | Progress Note ---
DATE: 08/17/2019 CARDIOLOGY PROGRESS NOTE SUBJECTIVE: The patient is status post cardiopulmonary arrest. He was extubated several days ago. He continues to require aggressive respiratory hygiene. Monitored rhythm, sinus with paroxysms of atrial fibrillation and nonsustained ventricular tachycardia. OBJECTIVE: LUNGS: Bilateral breath sounds. Rhonchi. HEART: Regular rhythm and rate. Normal S1, paradoxically split S2. ABDOMEN: Soft. EXTREMITIES: Trace edema. LABORATORY DATA: White count 8.4 and hemoglobin 14. Sodium 144, potassium 4.3, bicarbonate 34, BUN 25, and creatinine 0.7. Pro-natriuretic peptide down to 5459. Albumin 2.2. IMPRESSIONS: 1. Paroxysmal atrial and ventricular arrhythmias. 2. Acute on chronic diastolic and systolic congestive heart failure. 3. Status post cardiopulmonary arrest. 4. Status post non ST-elevation myocardial infarction. 5. Ischemic cardiomyopathy. 6. Status post respiratory failure. 7. Severe protein-calorie malnutrition. 8. Dehydration and hypernatremia, corrected. PLANS: 1. Additional diuresis. 2. Discontinue IV fluids. 3. Titrate anti-failure regimen. 4. Maintain amiodarone for suppression of atrial and ventricular arrhythmias. 5. Steroid taper per enginehouse brakeman. Saeed Sim M.D. DR: MARCIA JOB#: [id number] CC:
--- NOTE | 2019-08-18 05:06 | Diagnostic Imaging Report ---
Indication: Post gastric tube placement Technique: Supine view of the abdomen Comparison: 08/13/2019 Findings: Enteric tube tip projects at the level gastric fundus or body, proximal port beyond the gastroesophageal junction. Nonspecific prominent gas-filled small bowel loops are noted. Impression: Satisfactory position of enteric tube This agrees with the preliminary interpretation provided overnight by [facility] teleradiology service.
[2019-08-18 05:54] LABS: ANION GAP 6 mmol/L (5-15); BLOOD UREA NITROGEN 28 mg/dL (7-18); CALCIUM 8.7 MG/DL (8.5-10.1); CARBON DIOXIDE 32 MMOL/L (21-32); CHLORIDE 104 MMOL/L (98-107); CREATININE 0.7 MG/DL (0.55-1.30); POTASSIUM 4.6 MMOL/L (3.5-5.1); SODIUM 142 MMOL/L (136-145)
[2019-08-18 06:07] LABS: BASOPHILS % (AUTO) 0.5 % (0.0-2.0); EOSINOPHILS % (AUTO) 1.4 % (0.0-3.0); HEMATOCRIT 43.4 % (42.0-52.0); HEMOGLOBIN 14.3 G/DL (14.2-18.0); MEAN CORPUSCULAR VOLUME 95 FL (80-99); NEUTROPHILS % (AUTO) 78.1 % (45.0-75.0); PLATELET COUNT 380 K/UL (150-450); RED BLOOD COUNT 4.57 M/UL (4.70-6.10); RED CELL DISTRIBUTION WIDTH 12.9 % (11.6-14.8); WHITE BLOOD COUNT 10.2 K/UL (4.8-10.8)
--- NOTE | 2019-08-18 08:16 | Diagnostic Imaging Report ---
Indication: Shortness of breath Technique: One view of the chest Comparison: 08/16/2019 Findings: There is again demonstrated pleural fluid at the left lung base. There is increasing basilar consolidation and/or pleural fluid on the right. There is background interstitial congestion, stable or slightly increased. Impression: Stable or slightly increased bilateral interstitial congestion and right pleural effusion. Persistent left pleural effusion, over 2 days
--- NOTE | 2019-08-18 09:28 | Emergency Room Report ---
Physical Exam Vital Signs Date Time Temp Pulse Resp B/P (MAP) Pulse Ox O2 Delivery O2 Flow Rate FiO2 08/14/19 07:00 102 23 153/75 (101) 98 08/14/19 07:44 Cool Aerosol 10.0 35 08/14/19 08:00 98.2 Sp02 EP Interpretation: reviewed, abnormal General Appearance: Stupor Head: normocephalic, atraumatic Eyes: bilateral eye normal inspection, bilateral eye PERRL ENT: normal pharynx, no angioedema Neck: full range of motion, supple/symm/no masses Respiratory: decreased breath sounds, other - Slow respirations about 6 to 8/ min Cardiovascular #1: regular rate, rhythm, no edema Gastrointestinal: normal bowel sounds, non tender, soft, non-distended, no guarding, no rebound Rectal: deferred Neurologic: other - Patient nonverbal GCS of 3 Psychiatric: other - Will to assess Lymphatic: no adenopathy Medical Decision Making Diagnostic Impression: Primary Impression: Respiratory failure Additional Impression: Cardiopulmonary arrest ER Course I was called to a CODE BLUE for patient who had agonal breathing was hypoxic, hypotensive and altered code was initiated at 8:06 AM when I arrived to the room patient had assisted ventilations with an Ambu bag patient remained in sinus rhythm throughout the code before intubation I was notified the patient's pH was 6.95 with a PCO2 of 182 and a PaO2 of 82 patient was given 2 A of sodium bicarbonate. Patient's pulses were thready and patient was hypotensive I gave 1 amp of epi. Afterwards patient's blood pressure 186/77 with a heart rate of 103. Patient was also given 500 cc normal saline bolus. Patient was intubated for respiratory failure patient was premedicated with 40 mg of etomidate and preoxygenated. This was a oral airway 7.5 ET tube 2 attempts 24 at the lip. Verification of placement with direct visualization, misting in the tube, CO2 and breath sounds were auscultated. NG tube had previously been placed. Patient remains in critical condition and was being moved to the ICU Last Vital Signs Date Time Temp Pulse Resp B/P (MAP) Pulse Ox O2 Delivery O2 Flow Rate FiO2 08/18/19 08:35 107 30 100 08/18/19 07:42 96 08/18/19 07:41 Bi-Pap 08/18/19 04:00 4.0 08/18/19 04:00 97.3 119/69 (86) Disposition: ADMITTED INPATIENT Condition: Critical Referrals: Modesta Mulligan MD (PCP) Charlene Parker M.D. Aug 18, 2019 09:28
[2019-08-18] MEDS ORDERED: Acetaminophen 650mg/20.3ml ORAL PRN (09:30)
[2019-08-18] MEDS: Colistin for inhalation INH SCH ×2 (09:31→21:16)
[2019-08-18] MEDS ORDERED: Albuterol/Ipratropium 3ml neb HHN PRN (10:00)
--- NOTE | 2019-08-18 12:57 | Pulmonolgy Critical Care Note ---
Critical Care - Asmt/Plan Problems: (1) Acute respiratory failure (2) Cardiopulmonary arrest (3) Cardiac LV ejection fraction 40% (4) Nosocomial pneumonia (5) Atrial fibrillation Assessment & Plan: controlled (6) Pulmonary edema (7) COPD (chronic obstructive pulmonary disease) (8) CAD (coronary artery disease) (9) Dementia with behavioral disturbance Respiratory: monitor respiratory rate, adjust FIO2, CXR Cardiac: continue to monitor HR/BP Renal: F/U I&O, keep IV fluid Infectious Disease: check cultures, continue antibiotics Gastrointestinal: continue feedings/current rate Endocrine: continue sliding scale insulin Hematologic: monitor H/H, transfuse if hgb<8.5 Affect: PRN ativan Disposition: keep in ICU Notes Reviewed: renal Discussed with: nurses, consultants, pillowcase cutterglobal regulatory affairs manager - Objective Last 24 Hour Vital Signs Date Time Temp Pulse Resp B/P (MAP) Pulse Ox O2 Delivery O2 Flow Rate FiO2 08/18/19 12:48 74 30 100 08/18/19 10:36 86 30 100 08/18/19 08:35 107 30 100 08/18/19 08:00 102 22 85 08/18/19 08:00 Bi-pap 08/18/19 07:55 105 24 80/50 (60) 85 08/18/19 07:50 97.0 66 22 105/47 (66) 93 08/18/19 07:45 116 08/18/19 07:42 66 14 96 70 08/18/19 07:41 96 Bi-Pap 70 08/18/19 04:52 90 16 92 100 08/18/19 04:49 100 08/18/19 04:00 89 08/18/19 04:00 Nasal Cannula 4.0 08/18/19 04:00 97.3 84 20 119/69 (86) 95 08/18/19 00:00 97.8 79 20 137/67 (90) 97 08/18/19 00:00 4.0 08/18/19 00:00 Nasal Cannula 4.0 08/17/19 23:28 91 08/17/19 23:08 83 18 99 Nasal Cannula 4.0 36 08/17/19 22:53 78 18 99 Nasal Cannula 4.0 36 08/17/19 21:30 83 141/69 (93) 08/17/19 20:27 163/77 08/17/19 20:26 83 163/77 08/17/19 20:00 Nasal Cannula 4.0 08/17/19 20:00 98.2 87 20 163/77 (105) 98 08/17/19 20:00 4.0 08/17/19 19:24 94 08/17/19 19:13 95 Nasal Cannula 4.0 36 08/17/19 16:20 99 18 98 Nasal Cannula 4.0 36 91 18 90 08/17/19 16:00 97.9 87 22 147/64 (91) 97 08/17/19 16:00 Nasal Cannula 4.0 08/17/19 16:00 87 Status: obtunded Condition: critical HEENT: atraumatic Lungs: rales, rhonchi Heart: HR/BP stable Abdomen: soft, active bowel sounds Accucheck: 153 Critical Care - Subjective Interval Events: was hypotensive and dyspnic earlier today. Got intubated and transferred to ICU. FI02: 100 Vent Support Breath Rate: 30 Vent Support Mode: AC Vent Tidal Volume: 600 Sputum Amount: Scant PEEP: 5.0 PIP: 43 Tube Feeding Amount: 45 I&O: Intake and Output 08/17/19 08/18/19 19:00 07:00 Intake Total 1854.5455 ml 1121 ml Output Total 2000 ml 450 ml Balance -145.4545 ml 671 ml Free Water 200 ml 50 ml IV Total 1039.5455 ml 711 ml Tube Feeding 615 ml 360 ml Output Urine Total 2000 ml 450 ml # Bowel Movements 1 2 CXR: mildly increased congestin. Labs: Laboratory Tests Test 08/18/19 03:15 08/18/19 07:56 White Blood Count 10.2 K/UL (4.8-10.8) Red Blood Count 4.57 M/UL (4.70-6.10) L Hemoglobin 14.3 G/DL (14.2-18.0) Hematocrit 43.4 % (42.0-52.0) Mean Corpuscular Volume 95 FL (80-99) Mean Corpuscular Hemoglobin 31.2 PG (27.0-31.0) H Mean Corpuscular Hemoglobin Concent 32.9 G/DL (32.0-36.0) Red Cell Distribution Width 12.9 % (11.6-14.8) Platelet Count 380 K/UL (150-450) Mean Platelet Volume 5.1 FL (6.5-10.1) L Neutrophils (%) (Auto) 78.1 % (45.0-75.0) H Lymphocytes (%) (Auto) 11.0 % (20.0-45.0) L Monocytes (%) (Auto) 9.0 % (1.0-10.0) Eosinophils (%) (Auto) 1.4 % (0.0-3.0) Basophils (%) (Auto) 0.5 % (0.0-2.0) Sodium Level 142 MMOL/L (136-145) Potassium Level 4.6 MMOL/L (3.5-5.1) Chloride Level 104 MMOL/L (98-107) Carbon Dioxide Level 32 MMOL/L (21-32) Anion Gap 6 mmol/L (5-15) Blood Urea Nitrogen 28 mg/dL (7-18) H Creatinine 0.7 MG/DL (0.55-1.30) Estimat Glomerular Filtration Rate > 60 mL/min (>60) Glucose Level 132 MG/DL (74-106) H Calcium Level 8.7 MG/DL (8.5-10.1) Arterial Blood pH Pending Arterial Blood Partial Pressure CO2 Pending Arterial Blood Partial Pressure O2 Pending Arterial Blood HCO3 Pending Arterial Blood Oxygen Saturation Pending Arterial Blood Base Excess Pending Joe Test Pending Nicole Graves MD Aug 18, 2019 12:57
--- NOTE | 2019-08-18 13:36 | Nephrology Progress Note ---
Assessment/Plan Problem List: (1) AUREA (acute kidney injury) (2) Cardiopulmonary arrest (3) Respiratory failure (4) Cardiomyopathy (5) Obesity (BMI 30.0-34.9) (6) DMII (diabetes mellitus, type 2) Assessment Acute Renal Failure : AUREA Most likely due to cardiorespiratory arrest and episode of hypotension. Patient also has cardiomyopathy with Ej Fx of 40 % on admission Obese : BMI 34.4 ? DM Other Dx (1) Cardiopulmonary arrest (2) Nosocomial pneumonia (3) Acute respiratory failure (4) COPD (chronic obstructive pulmonary disease) (5) Atrial fibrillation (6) Dementia with behavioral disturbance (7) CAD (coronary artery disease) Plan Patient's condition deteriorated He is back in ICU He is intubated ventilator He is hypotensive Doing poorly Waiting for a central line .Pressure support with pressors Hold blood pressure medications Stress dose of steroids Previously Monitor renal parameters. Serum creatinine improved Monitor urine output. Urine output improved. Avoid nephrotoxics. Weaning as possible. Remains intubated at this time. Correct electrolyte imbalances. Change tube feeding to Glucerna. Subjective ROS Limited/Unobtainable: Yes Objective Objective Last 24 Hour Vital Signs Date Time Temp Pulse Resp B/P (MAP) Pulse Ox O2 Delivery O2 Flow Rate FiO2 08/18/19 13:28 101/47 08/18/19 12:48 74 30 100 08/18/19 10:36 86 30 100 08/18/19 08:35 107 30 100 08/18/19 08:00 102 22 85 08/18/19 08:00 Bi-pap 08/18/19 07:55 105 24 80/50 (60) 85 08/18/19 07:50 97.0 66 22 105/47 (66) 93 08/18/19 07:45 116 08/18/19 07:42 66 14 96 70 08/18/19 07:41 96 Bi-Pap 70 08/18/19 04:52 90 16 92 100 08/18/19 04:49 100 08/18/19 04:00 89 08/18/19 04:00 Nasal Cannula 4.0 08/18/19 04:00 97.3 84 20 119/69 (86) 95 08/18/19 00:00 97.8 79 20 137/67 (90) 97 08/18/19 00:00 4.0 3/16/20 00:00 Nasal Cannula 4.0 08/17/19 23:28 91 08/17/19 23:08 83 18 99 Nasal Cannula 4.0 36 08/17/19 22:53 78 18 99 Nasal Cannula 4.0 36 08/17/19 21:30 83 141/69 (93) 08/17/19 20:27 163/77 08/17/19 20:26 83 163/77 08/17/19 20:00 Nasal Cannula 4.0 08/17/19 20:00 98.2 87 20 163/77 (105) 98 08/17/19 20:00 4.0 08/17/19 19:24 94 08/17/19 19:13 95 Nasal Cannula 4.0 36 08/17/19 16:20 99 18 98 Nasal Cannula 4.0 36 91 18 90 08/17/19 16:00 97.9 87 22 147/64 (91) 97 08/17/19 16:00 Nasal Cannula 4.0 08/17/19 16:00 87 Intake and Output 08/17/19 08/18/19 19:00 07:00 Intake Total 1854.5455 ml 1121 ml Output Total 2000 ml 450 ml Balance -145.4545 ml 671 ml Free Water 200 ml 50 ml IV Total 1039.5455 ml 711 ml Tube Feeding 615 ml 360 ml Output Urine Total 2000 ml 450 ml # Bowel Movements 1 2 Laboratory Tests 08/18/19 03:15: White Blood Count 10.2, Red Blood Count 4.57L, Hemoglobin 14.3, Hematocrit 43.4 , Mean Corpuscular Volume 95, Mean Corpuscular Hemoglobin 31.2H, Mean Corpuscular Hemoglobin Concent 32.9, Red Cell Distribution Width 12.9, Platelet Count 380, Mean Platelet Volume 5.1L, Neutrophils (%) (Auto) 78.1H, Lymphocytes (%) (Auto) 11.0L, Monocytes (%) (Auto) 9.0, Eosinophils (%) (Auto) 1.4, Basophils (%) (Auto) 0.5, Sodium Level 142, Potassium Level 4.6, Chloride Level 104, Carbon Dioxide Level 32, Anion Gap 6, Blood Urea Nitrogen 28H, Creatinine 0.7, Estimat Glomerular Filtration Rate > 60, Glucose Level 132H, Calcium Level 8.7 08/18/19 07:56: Arterial Blood pH [Pending], Arterial Blood Partial Pressure CO2 [Pending], Arterial Blood Partial Pressure O2 [Pending], Arterial Blood HCO3 [Pending], Arterial Blood Oxygen Saturation [Pending], Arterial Blood Base Excess [Pending] , Joe Test [Pending] Height (Feet): 5 Height (Inches): 6.00 Weight (Pounds): 213 General Appearance: lethargic EENT: other Cardiovascular: tachycardia Respiratory/Chest: decreased breath sounds Abdomen: distended Objective no change Yunior Sexton MD Aug 18, 2019 13:36
--- NOTE | 2019-08-18 13:44 | Infectious Diseases Prog Note ---
Assessment/Plan Assessment/Plan ASSESSMENT: The patient is a 79-year-old male with: Leukocytosis; mild Fever , sp Sepsis, Sp Pneumonia ( probable asp), Sp RX -08/13 Scx: MDR-ACB (Tygacil LANI: 4) - CXR: 1. Streaky opacities in the right lower lung may represent atelectasis versus scarring. Left basilar opacity may represent atelectasis. Component of pneumonia is not excluded. Pulmonary vasculature congestion. -08/01 ucx NTD - sp cx: nl anastacio Urinary tract infection, SP Rx 08/17 Sp code blue and intubation 07/31 Sp Code blue and intubation , sp extubation 08/12 , Hyperlipidemia. COPD. History of GERD. History of encephalopathy. History of CAD/VT. History of cardiomyopathy. Hypertension. PLAN: cont on Merrem 12/08-10 ( will cont as pt fever and WBC improved), add Colsitn INH (MDR-ACB) #4 08/14 SP IV Vanco # 4 3/ SP Zosyn and IV Vanco # 12/08 , -08/01 SP Rocephin day # 10 - 07/31 sp sp Dox # 6 Monitor CBC. Monitor BMP. Monitor chest x-ray cont ICU Support Rpt Cx (B,U,S) discussed with RN Subjective Allergies: Coded Allergies: No Known Allergies (Unverified , 06/03/17) Subjective coded today and intubated and transferred to ICU afebrile Objective Vital Signs Last 24 Hour Vital Signs Date Time Temp Pulse Resp B/P (MAP) Pulse Ox O2 Delivery O2 Flow Rate FiO2 08/18/19 13:28 101/47 08/18/19 12:48 74 30 100 08/18/19 10:36 86 30 100 08/18/19 08:35 107 30 100 08/18/19 08:00 102 22 85 08/18/19 08:00 Bi-pap 08/18/19 07:55 105 24 80/50 (60) 85 08/18/19 07:50 97.0 66 22 105/47 (66) 93 08/18/19 07:45 116 08/18/19 07:42 66 14 96 70 08/18/19 07:41 96 Bi-Pap 70 08/18/19 04:52 90 16 92 100 08/18/19 04:49 100 08/18/19 04:00 89 08/18/19 04:00 Nasal Cannula 4.0 08/18/19 04:00 97.3 84 20 119/69 (86) 95 08/18/19 00:00 97.8 79 20 137/67 (90) 97 08/18/19 00:00 4.0 08/18/19 00:00 Nasal Cannula 4.0 08/17/19 23:28 91 08/17/19 23:08 83 18 99 Nasal Cannula 4.0 36 08/17/19 22:53 78 18 99 Nasal Cannula 4.0 36 08/17/19 21:30 83 141/69 (93) 08/17/19 20:27 163/77 08/17/19 20:26 83 163/77 08/17/19 20:00 Nasal Cannula 4.0 08/17/19 20:00 98.2 87 20 163/77 (105) 98 08/17/19 20:00 4.0 08/17/19 19:24 94 08/17/19 19:13 95 Nasal Cannula 4.0 36 08/17/19 16:20 99 18 98 Nasal Cannula 4.0 36 91 18 90 08/17/19 16:00 97.9 87 22 147/64 (91) 97 08/17/19 16:00 Nasal Cannula 4.0 08/17/19 16:00 87 Height (Feet): 5 Height (Inches): 6.00 Weight (Pounds): 213 HEENT: mucous membranes moist Respiratory/Chest: no respiratory distress Cardiovascular: regular rhythm Abdomen: no organomegaly Laboratory Tests Test 08/18/19 03:15 08/18/19 07:56 White Blood Count 10.2 K/UL (4.8-10.8) Red Blood Count 4.57 M/UL (4.70-6.10) L Hemoglobin 14.3 G/DL (14.2-18.0) Hematocrit 43.4 % (42.0-52.0) Mean Corpuscular Volume 95 FL (80-99) Mean Corpuscular Hemoglobin 31.2 PG (27.0-31.0) H Mean Corpuscular Hemoglobin Concent 32.9 G/DL (32.0-36.0) Red Cell Distribution Width 12.9 % (11.6-14.8) Platelet Count 380 K/UL (150-450) Mean Platelet Volume 5.1 FL (6.5-10.1) L Neutrophils (%) (Auto) 78.1 % (45.0-75.0) H Lymphocytes (%) (Auto) 11.0 % (20.0-45.0) L Monocytes (%) (Auto) 9.0 % (1.0-10.0) Eosinophils (%) (Auto) 1.4 % (0.0-3.0) Basophils (%) (Auto) 0.5 % (0.0-2.0) Sodium Level 142 MMOL/L (136-145) Potassium Level 4.6 MMOL/L (3.5-5.1) Chloride Level 104 MMOL/L (98-107) Carbon Dioxide Level 32 MMOL/L (21-32) Anion Gap 6 mmol/L (5-15) Blood Urea Nitrogen 28 mg/dL (7-18) H Creatinine 0.7 MG/DL (0.55-1.30) Estimat Glomerular Filtration Rate > 60 mL/min (>60) Glucose Level 132 MG/DL (74-106) H Calcium Level 8.7 MG/DL (8.5-10.1) Arterial Blood pH Pending Arterial Blood Partial Pressure CO2 Pending Arterial Blood Partial Pressure O2 Pending Arterial Blood HCO3 Pending Arterial Blood Oxygen Saturation Pending Arterial Blood Base Excess Pending Joe Test Pending Current Medications Medications (Trade) Dose Ordered Sig/Amaris Route PRN Reason Start Time Stop Time Status Last Admin Dose Admin Acetaminophen (Tylenol) 650 mg Q4H PRN NG Mild Pain/Temp > 100.5 08/18/19 09:30 09/15/19 09:29 Albuterol/ Ipratropium (Albuterol/ Ipratropium) 3 ml Q4H PRN HHN Shortness of Breath 08/18/19 10:00 08/21/19 21:59 Atorvastatin Calcium (Lipitor) 40 mg BEDTIME NG 08/18/19 21:00 09/13/19 20:59 Clopidogrel Bisulfate (Plavix) 75 mg DAILY NG 08/19/19 09:00 09/13/19 08:59 Colistimethate Sodium (Colistin *inhalation use only*) 75 mg Q12HR@10,22 INH 08/18/19 10:00 08/22/19 21:59 Dextrose/Sodium Chloride 1,000 ml @ 50 mls/hr Q20H IV 08/18/19 13:45 09/17/19 13:44 UNV Heparin Sodium (Porcine) (Heparin 5000 units/ml) 5,000 units EVERY 12 HOURS SUBQ 08/18/19 21:00 08/20/19 20:59 Hydralazine HCl (Apresoline) 10 mg Q6H PRN IV For High Blood Pressure 08/18/19 10:00 09/15/19 21:59 Hydrocortisone (Solu-CORTEF) 100 mg EVERY 8 HOURS IV 08/18/19 14:00 09/17/19 13:59 UNV Meropenem 1 gm/ Sodium Chloride 55 ml @ 110 mls/hr Q8H IVPB 08/18/19 16:00 08/18/19 23:59 Norepinephrine Bitartrate 4 mg/ Dextrose 250 ml @ 0 mls/hr Q24H IV 08/18/19 13:00 09/17/19 12:59 08/18/19 13:28 Olanzapine (ZyPREXA Zydis) 5 mg DAILY NG 08/19/19 09:00 09/29/19 11:59 Angel Rudolph MD Aug 18, 2019 13:44
[2019-08-18] MEDS: Hydrocortisone 100mg Inj IV SCH ×2 (14:30→22:32)
[2019-08-18] MEDS: D5 1/2NS 1,000 ML IV SCH (14:31)
--- NOTE | 2019-08-18 15:54 | Operative Note - PDOC ---
Operative Note Operative Note Date of Operation/Procedure: Aug 18, 2019 Pre-op Diagnosis: Sepsis, hypotension, tachycardia, critically ill Procedure: Right femoral triple-lumen central venous catheter insertion Post-op Diagnosis: same as pre-op Surgeon: Prosper Hummel MD Anesthesia: other Specimen: none Complications: none Condition: unstable Estimated Blood Loss: minimal Drains: none Implant(s) used?: No Indications for Procedure 79 male septic critically ill intubated intensive care unit hypotensive systolics in the 60s tachycardic emergency central venous catheter insertion recommend indicated for fluid challenges as well as vasopressors and cardiogenic medications Description of Procedure Patient currently intubated unresponsive in intensive care unit hypotensive tachycardic and ill-appearing. Emergency line placement necessary indicated and medically appropriate. Patient made supine. Right femoral region prepped in the same surgical fashion. On first stick the right femoral vein was cannulated without complication. Good venous blood noted. Guidewire present needle removed. Small skin incision was made and dilator was used. Triple- lumen catheter inserted without complication. Guidewire removed and discarded. Line sutured in place. All 3 ports functional. Dressings applied. Patient tolerated well. Immediately start pressors and fluid challenge. Thank you Prosper Hummel Aug 18, 2019 15:54
--- NOTE | 2019-08-18 15:57 | Consultation ---
History of Present Illness General Date patient seen: Aug 18, 2019 Chief Complaint: Upper Respiratory Illness Present Illness HPI 79-year-old male currently in the intensive care unit critically ill and septic respiratory distress intubated hypotensive requiring pressors. Surgery called to evaluate and assist with care. Patient was present in the hospital for near 28 days now and has initially improved but now deteriorated rapidly intensive care unit requiring intubation. Given extreme extremitas urgent line indicated and recommended. Further evaluation for possible surgical etiology necessary and full examination performed. Patient unresponsive in the intensive care unit on ventilator support. Allergies: Coded Allergies: No Known Allergies (Unverified , 06/03/17) Medication History Scheduled Ascorbic Acid* (Vitamin C*), 500 MG ORAL DAILY, (Reported) Atorvastatin Calcium* (Atorvastatin Calcium*), 40 MG ORAL BEDTIME, (Reported) Carvedilol (Coreg), 6.25 MG ORAL BID, (Reported) Clopidogrel Bisulfate* (Plavix*), 75 MG ORAL DAILY, (Reported) Isosorbide Mononitrate (Isosorbide Mononitrate Er), 30 MG PO DAILY, (Reported) Lactulose (Lactulose*), 30 ML ORAL BID, (Reported) Multivitamin With Minerals (Multivitamins With Minerals*), 1 TAB ORAL DAILY, ( Reported) Pantoprazole* (Protonix*), 40 MG ORAL ACBREAKFAST, (Reported) Ramipril* (Altace*), 5 MG ORAL DAILY, (Reported) Thiamine Hcl* (Vitamin B-1*), Unknown Dose ORAL DAILY, (Reported) Vitamin D (Vitamin D3), 5,000 UNITS ORAL DAILY, (Reported) Scheduled PRN Acetaminophen (Acetaminophen), 1,000 MG ORAL Q6HR PRN for Moderate Pain (Pain Scale 4-6), (Reported) Acetaminophen* (Acetaminophen 325MG Tablet*), 650 MG ORAL Q4H PRN for Mild Pain/ Temp > 100.5, (Reported) Hydralazine Hcl* (Hydralazine Hcl*), 25 MG ORAL Q6HR PRN for SBP>140, (Reported) Nitroglycerin (Nitroglycerin), 0.4 MG SL EVERY 5 MINUTES PRN for CHEST PAIN, ( Reported) Prochlorperazine Maleate (Prochlorperazine Maleate), 10 MG PO Q8HR PRN for Nausea & Vomiting, (Reported) Patient History Limited by: medical condition History Provided By: EMS, PMD Healthcare decision maker Resuscitation status Full Code Advanced Directive on File Past Medical/Surgical History Past Medical/Surgical History: (1) Nosocomial pneumonia (2) AUREA (acute kidney injury) (3) Cardiomyopathy (4) Obesity (BMI 30.0-34.9) (5) DMII (diabetes mellitus, type 2) (6) Cardiac LV ejection fraction 40% (7) Pulmonary edema (8) Cardiopulmonary arrest (9) Respiratory failure (10) History of hypertension (11) COPD (chronic obstructive pulmonary disease) (12) CAD (coronary artery disease) (13) Atrial fibrillation (14) Dementia with behavioral disturbance (15) Upper respiratory infection (16) Acute respiratory failure (17) Dyspnea (18) UTI (urinary tract infection) Review of Systems ROS Narrative Cannot obtain given patient's current medical condition Physical Exam General Appearance: severe distress Lines, tubes and drains: peripheral, central line HEENT: mucous membranes moist Neck: normal inspection Respiratory/Chest: decreased breath sounds Cardiovascular/Chest: tachycardia Abdomen: soft, absent bowel sounds, distended Genitourinary/Rectal: other Extremities: inflammation, slow capillary refill, pitting Skin Exam: warm/dry Neurologic: unresponsiveness Last 24 Hour Vital Signs Date Time Temp Pulse Resp B/P (MAP) Pulse Ox O2 Delivery O2 Flow Rate FiO2 08/18/19 15:15 73 28 101/49 (66) 100 08/18/19 15:00 80 08/18/19 15:00 102/46 08/18/19 15:00 79 25 102/46 (64) 99 08/18/19 14:58 68 30 80 08/18/19 14:40 71 30 89/42 (58) 100 08/18/19 14:40 89/42 08/18/19 14:35 88/41 08/18/19 14:35 69 29 88/41 (57) 100 08/18/19 14:30 68 30 89/47 (61) 100 08/18/19 14:30 89/47 08/18/19 14:15 73 30 96/41 (59) 100 08/18/19 14:00 100/43 08/18/19 14:00 71 30 100/43 (62) 100 08/18/19 13:45 68 30 116/50 (72) 99 08/18/19 13:30 73 29 117/63 (81) 96 08/18/19 13:28 101/47 08/18/19 13:20 78 29 101/47 (65) 89 08/18/19 13:15 75 24 93/45 (61) 84 08/18/19 13:08 85 28 51/30 (37) 97 08/18/19 13:06 75 30 52/30 (37) 97 08/18/19 13:00 73 30 60/35 (43) 93 08/18/19 12:48 74 30 100 08/18/19 12:00 81 08/18/19 12:00 Mechanical Ventilator Mechanical Ventilator 08/18/19 12:00 100 08/18/19 12:00 97.8 83 30 103/50 (67) 97 08/18/19 11:30 82 28 93/45 (61) 99 08/18/19 11:00 91 29 112/49 (70) 89 08/18/19 10:50 91 29 90/53 (65) 92 08/18/19 10:40 88 28 77/57 (64) 92 08/18/19 10:36 86 30 100 08/18/19 10:30 88 28 65/44 (51) 97 08/18/19 10:20 100 19 75/47 (56) 83 08/18/19 10:10 93 19 86/19 (41) 83 08/18/19 10:00 93 20 72/47 (55) 93 08/18/19 09:20 106 20 107/95 (99) 93 08/18/19 09:00 106 13 113/96 (102) 81 08/18/19 08:35 107 30 100 08/18/19 08:00 102 22 85 08/18/19 08:00 97.2 98 27 120/65 (83) 90 08/18/19 08:00 Bi-pap 08/18/19 08:00 Mechanical Ventilator Mechanical Ventilator 08/18/19 08:00 100 08/18/19 07:55 105 24 80/50 (60) 85 08/18/19 07:50 97.0 66 22 105/47 (66) 93 08/18/19 07:45 116 08/18/19 07:42 66 14 96 70 08/18/19 07:41 96 Bi-Pap 70 08/18/19 04:52 90 16 92 100 08/18/19 04:49 100 08/18/19 04:00 89 08/18/19 04:00 Nasal Cannula 4.0 08/18/19 04:00 97.3 84 20 119/69 (86) 95 08/18/19 00:00 97.8 79 20 137/67 (90) 97 08/18/19 00:00 4.0 08/18/19 00:00 Nasal Cannula 4.0 08/17/19 23:28 91 08/17/19 23:08 83 18 99 Nasal Cannula 4.0 36 08/17/19 22:53 78 18 99 Nasal Cannula 4.0 36 08/17/19 21:30 83 141/69 (93) 08/17/19 20:27 163/77 08/17/19 20:26 83 163/77 08/17/19 20:00 Nasal Cannula 4.0 08/17/19 20:00 98.2 87 20 163/77 (105) 98 08/17/19 20:00 4.0 08/17/19 19:24 94 08/17/19 19:13 95 Nasal Cannula 4.0 36 08/17/19 16:20 99 18 98 Nasal Cannula 4.0 36 91 18 90 08/17/19 16:00 97.9 87 22 147/64 (91) 97 08/17/19 16:00 Nasal Cannula 4.0 08/17/19 16:00 87 Intake and Output 08/17/19 08/18/19 19:00 07:00 Intake Total 1854.5455 ml 1121 ml Output Total 2000 ml 450 ml Balance -145.4545 ml 671 ml Free Water 200 ml 50 ml IV Total 1039.5455 ml 711 ml Tube Feeding 615 ml 360 ml Output Urine Total 2000 ml 450 ml # Bowel Movements 1 2 Laboratory Tests Test 08/18/19 03:15 08/18/19 07:56 White Blood Count 10.2 K/UL (4.8-10.8) Red Blood Count 4.57 M/UL (4.70-6.10) L Hemoglobin 14.3 G/DL (14.2-18.0) Hematocrit 43.4 % (42.0-52.0) Mean Corpuscular Volume 95 FL (80-99) Mean Corpuscular Hemoglobin 31.2 PG (27.0-31.0) H Mean Corpuscular Hemoglobin Concent 32.9 G/DL (32.0-36.0) Red Cell Distribution Width 12.9 % (11.6-14.8) Platelet Count 380 K/UL (150-450) Mean Platelet Volume 5.1 FL (6.5-10.1) L Neutrophils (%) (Auto) 78.1 % (45.0-75.0) H Lymphocytes (%) (Auto) 11.0 % (20.0-45.0) L Monocytes (%) (Auto) 9.0 % (1.0-10.0) Eosinophils (%) (Auto) 1.4 % (0.0-3.0) Basophils (%) (Auto) 0.5 % (0.0-2.0) Sodium Level 142 MMOL/L (136-145) Potassium Level 4.6 MMOL/L (3.5-5.1) Chloride Level 104 MMOL/L (98-107) Carbon Dioxide Level 32 MMOL/L (21-32) Anion Gap 6 mmol/L (5-15) Blood Urea Nitrogen 28 mg/dL (7-18) H Creatinine 0.7 MG/DL (0.55-1.30) Estimat Glomerular Filtration Rate > 60 mL/min (>60) Glucose Level 132 MG/DL (74-106) H Calcium Level 8.7 MG/DL (8.5-10.1) Arterial Blood pH Pending Arterial Blood Partial Pressure CO2 Pending Arterial Blood Partial Pressure O2 Pending Arterial Blood HCO3 Pending Arterial Blood Oxygen Saturation Pending Arterial Blood Base Excess Pending Joe Test Pending Height (Feet): 5 Height (Inches): 6.00 Weight (Pounds): 213 Medications Current Medications Medications (Trade) Dose Ordered Sig/Amaris Route PRN Reason Start Time Stop Time Status Last Admin Dose Admin Acetaminophen (Tylenol) 650 mg Q4H PRN NG Mild Pain/Temp > 100.5 08/18/19 09:30 09/15/19 09:29 Albuterol/ Ipratropium (Albuterol/ Ipratropium) 3 ml Q4H PRN HHN Shortness of Breath 08/18/19 10:00 08/21/19 21:59 Atorvastatin Calcium (Lipitor) 40 mg BEDTIME NG 08/18/19 21:00 09/13/19 20:59 Chlorhexidine Gluconate (Kamila-Hex 2%) 1 applic DAILY@2000 TOPIC 08/18/19 20:00 09/17/19 19:59 Clopidogrel Bisulfate (Plavix) 75 mg DAILY NG 08/19/19 09:00 09/13/19 08:59 Colistimethate Sodium (Colistin *inhalation use only*) 75 mg Q12HR@10,22 INH 08/18/19 10:00 08/22/19 21:59 Dextrose/Sodium Chloride 1,000 ml @ 50 mls/hr Q20H IV 08/18/19 14:00 09/17/19 13:59 08/18/19 14:31 Heparin Sodium (Porcine) (Heparin 5000 units/ml) 5,000 units EVERY 12 HOURS SUBQ 08/18/19 21:00 08/20/19 20:59 Hydralazine HCl (Apresoline) 10 mg Q6H PRN IV For High Blood Pressure 08/18/19 10:00 09/15/19 21:59 Hydrocortisone (Solu-CORTEF) 100 mg EVERY 8 HOURS IV 08/18/19 14:00 09/17/19 13:59 08/18/19 14:30 Meropenem 1 gm/ Sodium Chloride 55 ml @ 110 mls/hr Q8H IVPB 08/18/19 16:00 08/22/19 15:59 Norepinephrine Bitartrate 4 mg/ Dextrose 250 ml @ 0 mls/hr Q24H IV 08/18/19 13:00 09/17/19 12:59 08/18/19 13:28 Olanzapine (ZyPREXA Zydis) 5 mg DAILY NG 08/19/19 09:00 09/29/19 11:59 Assessment/Plan Problem List: (1) Nosocomial pneumonia ICD Codes: J18.9 - Pneumonia, unspecified organism; Y95 - Nosocomial condition SNOMED: 937105009 (2) AUREA (acute kidney injury) ICD Codes: N17.9 - Acute kidney failure, unspecified SNOMED: 3805933, 73620667 (3) Cardiomyopathy ICD Codes: I42.9 - Cardiomyopathy, unspecified SNOMED: 69523977 (4) Obesity (BMI 30.0-34.9) ICD Codes: E66.9 - Obesity, unspecified SNOMED: 978717404153584 (5) DMII (diabetes mellitus, type 2) ICD Codes: E11.9 - Type 2 diabetes mellitus without complications SNOMED: 22525289 (6) Cardiac LV ejection fraction 40% (7) Pulmonary edema ICD Codes: J81.1 - Chronic pulmonary edema SNOMED: 74981492 (8) Cardiopulmonary arrest Assessment & Plan: Cardiopulmonary arrest septic requiring urgent emergency line placement for pressors and fluids and meds Please see procedure report Full examination performed no other surgical issues found at this time etiology unknown likely surgical in nature Antibiotics fluids Pressors Vent ICD Codes: I46.9 - Cardiac arrest, cause unspecified SNOMED: 598512666 (9) Respiratory failure ICD Codes: J96.90 - Respiratory failure, unspecified, unspecified whether with hypoxia or hypercapnia SNOMED: 260865376 (10) History of hypertension ICD Codes: Z86.79 - Personal history of other diseases of the circulatory system SNOMED: 670378390 (11) COPD (chronic obstructive pulmonary disease) ICD Codes: J44.9 - Chronic obstructive pulmonary disease, unspecified SNOMED: 68590012 (12) CAD (coronary artery disease) ICD Codes: I25.10 - Atherosclerotic heart disease of [place] coronary artery without angina pectoris SNOMED: 06791469 (13) Atrial fibrillation ICD Codes: I48.91 - Unspecified atrial fibrillation SNOMED: 49350804 (14) Dementia with behavioral disturbance ICD Codes: F03.91 - Unspecified dementia with behavioral disturbance SNOMED: 9352210874577 (15) Upper respiratory infection ICD Codes: J06.9 - Acute upper respiratory infection, unspecified SNOMED: 86538875 (16) Acute respiratory failure ICD Codes: J96.00 - Acute respiratory failure, unspecified whether with hypoxia or hypercapnia SNOMED: 02253052 (17) Dyspnea ICD Codes: R06.00 - Dyspnea, unspecified SNOMED: 880207725 (18) UTI (urinary tract infection) ICD Codes: N39.0 - Urinary tract infection, site not specified SNOMED: 70624994 Prosper Hummel Aug 18, 2019 15:57
[2019-08-18] MEDS: Meropenem 1 GM in NS 55 ML IVPB SCH (16:27)
[2019-08-18] MEDS: Dyna-Hex 2% Top Sol 2oz TOPIC SCH (19:58)
[2019-08-18] MEDS: Atorvastatin 20mg tab NG SCH (20:43)
[2019-08-18] MEDS: Heparin 5000 units/ml inj SUBQ SCH (20:45)
[2019-08-18] MEDS ORDERED: Carvedilol 6.25mg Tab NG SCH (21:00)
--- NOTE | 2019-08-18 23:00 | Progress Note ---
DATE: 08/18/2019 SUBJECTIVE: The patient today and developed severe shortness of breath with blood gases of pH 6.9, pCO2 was 182, PO2 82, bicarb 39, O2 saturation 91. He was transferred to the intensive care unit and was intubated. PHYSICAL EXAMINATION: VITAL SIGNS: His blood pressure on admission was severely hypotensive. The patient was placed on Levophed drip. He is currently on 4 mcg per minute. Blood pressure is low at 132/45 with pulse 72, respirations of 30, and temperature is 98.7. HEENT: Eyes were normal. ENT, mucous membranes were moist and intact. NECK: Supple with no JVD without lymph nodes. LUNGS: Clear. HEART: Normal sounds with regular beats. ABDOMEN: Soft and nontender with normal bowel sounds. EXTREMITIES: Warm without cyanosis, clubbing, or edema. LABORATORY AND DIAGNOSTIC DATA: Hemoglobin is 14.3, hematocrit 43.4 with MCV of 95, WBC of 10.2, and platelets is 280. His BUN and creatinine is 28 and 0.7 respectively. His sodium is 142, potassium 4.3, chloride 104, CO2 is 37. His calcium is 8.7. Chest x-ray done today, increased congestive heart failure and right pleural effusion as well as left pleural effusion. The abdominal ultrasound revealed in the gastric fundus and beyond the gastroesophageal junction. The patient has been seen today by Infectious Diseases specialist, endodontics dentist, customer acquisition specialist. The patient is now hemodynamically stable, intubated. His respiratory rate was 25 to 30. Repeat laboratory tests will be done in the a.m. The patient will be reassessed today by the client server programmer as well. Modesta Mulligan M.D. DR: ZACHARY JOB#: [id number] CC:
[2019-08-19] VITALS (35 sets, daily range): BP systolic 90–140; BP diastolic 41–68
[2019-08-19] MEDS: Meropenem 1 GM in NS 55 ML IVPB SCH ×2 (00:57→09:22)
--- NOTE | 2019-08-19 04:00 | Progress Note ---
DATE: 08/18/2019 CARDIOLOGY PROGRESS NOTE Critical care, one hour. SUBJECTIVE: Condition has deteriorated. Once again, the patient was found to be bradycardic with acute respiratory failure and subsequent hypotension. He has required reintubation and placed back on mechanical ventilation. Volume resuscitation was inadequate and pressor support resumed. ABG was 6.95, 182, and 82. PHYSICAL EXAMINATION: GENERAL: Obtunded. LUNGS: Bilateral breath sounds and rhonchi. CARDIAC: Regular rhythm and rate. Normal S1 and S2. ABDOMEN: Soft. EXTREMITIES: No edema. LABORATORY DATA: Sodium 142, potassium 4.6, bicarb 32, BUN 28, and creatinine 0.7. White count 10 and hemoglobin 14. IMPRESSION: 1. Bradyarrhythmia due to severe respiratory acidosis and acute respiratory failure. 2. Shock due to above. 3. COPD. 4. Acute on chronic respiratory acidosis. 5. Remains critical and guarded. PLAN: 1. Ventilator support. 2. Central venous access. 3. Volume support. 4. Pressors as needed, taper as able. 5. Monitor volume status and cardiorenal function. 6. Acid-base parameters. 7. DVT and stress ulcer prophylaxis. 8. Hold amiodarone and beta-blockers until hemodynamically stabilized. Saeed Sim M.D. DR: LIZETTE JOB#: [id number] CC:
[2019-08-19 05:28] LABS: HEMATOCRIT 35.1 % (42.0-52.0); HEMOGLOBIN 11.8 G/DL (14.2-18.0); MEAN CORPUSCULAR VOLUME 93 FL (80-99); PLATELET COUNT 336 K/UL (150-450); RED BLOOD COUNT 3.76 M/UL (4.70-6.10); RED CELL DISTRIBUTION WIDTH 12.7 % (11.6-14.8); WHITE BLOOD COUNT 12.4 K/UL (4.8-10.8)
[2019-08-19 05:47] LABS: ALANINE AMINOTRANSFERASE 49 U/L (12-78); ALBUMIN 2.3 G/DL (3.4-5.0); ALBUMIN/GLOBULIN RATIO 0.9 (1.0-2.7); ALKALINE PHOSPHATASE 127 U/L (46-116); ASPARTATE AMINO TRANSFERASE 28 U/L (15-37); BILIRUBIN,TOTAL 0.5 MG/DL (0.2-1.0); BLOOD UREA NITROGEN 43 mg/dL (7-18); CALCIUM 7.7 MG/DL (8.5-10.1); CARBON DIOXIDE 29 MMOL/L (21-32); CREATININE 1.6 MG/DL (0.55-1.30); PHOSPHORUS 2.4 MG/DL (2.5-4.9)
[2019-08-19] MEDS: Hydrocortisone 100mg Inj IV SCH ×3 (05:53→22:30)
[2019-08-19 05:57] LABS: CHLORIDE 109 MMOL/L (98-107); SODIUM 145 MMOL/L (136-145)
[2019-08-19 06:05] LABS: ANION GAP 7 mmol/L (5-15)
[2019-08-19] MEDS: D5 1/2NS 1,000 ML IV SCH (06:11)
[2019-08-19] MEDS: ZyPREXA Zydis 5mg tab NG SCH (08:21)
[2019-08-19] MEDS: Heparin 5000 units/ml inj SUBQ SCH ×2 (08:22→20:50)
[2019-08-19] MEDS ORDERED: Spironolactone 25mg tab NG SCH (09:00)
[2019-08-19] MEDS: Colistin for inhalation INH SCH ×2 (09:17→21:24)
--- NOTE | 2019-08-19 09:56 | Diagnostic Imaging Report ---
. Indication: Dyspnea Technique: One view of the chest Comparison: none Findings: Stable satisfactory position of endotracheal tube. Nasogastric tube is obscured. Bilateral interstitial and airspace infiltrates versus edema appears somewhat improved. There appears to be decreased or resolved left pleural effusion The heart size is upper limits of normal. Impression: Improving bilateral parenchymal disease, over one day. Decreased left pleural fluid
--- NOTE | 2019-08-19 12:30 | Pulmonolgy Critical Care Note ---
Critical Care - Asmt/Plan Problems: (1) Acute respiratory failure (2) Cardiopulmonary arrest (3) Cardiac LV ejection fraction 40% (4) Nosocomial pneumonia (5) Atrial fibrillation Assessment & Plan: controlled (6) Pulmonary edema (7) COPD (chronic obstructive pulmonary disease) (8) CAD (coronary artery disease) (9) Dementia with behavioral disturbance Respiratory: monitor respiratory rate - decrease to 16, abg too alkalotic, adjust FIO2 Cardiac: stop pressors, continue to monitor HR/BP Renal: F/U I&O Infectious Disease: check cultures, continue antibiotics Gastrointestinal: continue feedings/current rate Endocrine: monitor blood sugar, continue sliding scale insulin Hematologic: transfuse if hgb<8.5 Neurologic: PRN Ativan, keep patient comfortable Prophylaxis: Protonix, Heparin Disposition: keep in ICU Notes Reviewed: congregational care pastor, renal Discussed with: nurses, consultants, disease case managerretention manager - Objective Last 24 Hour Vital Signs Date Time Temp Pulse Resp B/P (MAP) Pulse Ox O2 Delivery O2 Flow Rate FiO2 08/19/19 12:00 Mechanical Ventilator Mechanical Ventilator 08/19/19 10:46 83 30 40 08/19/19 09:13 71 30 100 Mechanical Ventilator 40 75 30 40 08/19/19 09:00 76 29 130/54 (79) 100 08/19/19 08:30 76 25 137/58 (84) 100 08/19/19 08:00 Mechanical Ventilator Mechanical Ventilator 08/19/19 08:00 40 08/19/19 08:00 99.8 69 29 124/41 (68) 100 08/19/19 07:30 77 27 127/51 (76) 100 08/19/19 07:00 73 18 115/56 (75) 100 08/19/19 06:50 72 30 40 08/19/19 06:24 116/56 (76) 08/19/19 06:00 76 18 115/48 (70) 99 08/19/19 05:30 74 18 126/50 (75) 99 08/19/19 05:08 81 30 40 08/19/19 05:00 72 12 136/56 (82) 99 08/19/19 04:30 103 13 122/53 (76) 99 08/19/19 04:00 74 08/19/19 04:00 Mechanical Ventilator Mechanical Ventilator 08/19/19 04:00 40 08/19/19 04:00 99.1 79 18 126/52 (76) 99 08/19/19 03:30 75 24 108/47 (67) 100 08/19/19 03:13 76 30 40 08/19/19 03:00 78 16 112/68 (83) 94 08/19/19 02:30 73 30 118/54 (75) 99 08/19/19 02:00 74 27 114/45 (68) 98 08/19/19 01:30 75 15 90/44 (59) 98 08/19/19 01:11 78 30 40 08/19/19 01:00 77 3 99/43 (61) 100 08/19/19 00:58 118/61 08/19/19 00:30 76 9 114/51 (72) 100 08/19/19 00:15 73 0 114/52 (72) 100 08/19/19 00:00 98.4 74 0 115/43 (67) 99 08/19/19 00:00 72 08/19/19 00:00 Mechanical Ventilator Mechanical Ventilator 08/19/19 00:00 50 08/18/19 23:30 74 20 101/42 (61) 100 08/18/19 23:00 71 18 90/35 (53) 100 73 08/18/19 23:00 78 30 50 08/18/19 22:30 74 17 103/42 (62) 100 72 08/18/19 22:00 73 28 110/49 (69) 100 71 08/18/19 21:31 73 30 100 Mechanical Ventilator 50 08/18/19 21:30 72 30 105/45 (65) 100 76 08/18/19 21:16 74 30 Mechanical Ventilator 50 50 08/18/19 21:00 72 30 101/42 (61) 100 73 08/18/19 21:00 99/41 08/18/19 20:30 70 30 102/40 (60) 100 08/18/19 20:15 72 30 105/42 (63) 99 08/18/19 20:00 50 08/18/19 20:00 145/70 08/18/19 20:00 Mechanical Ventilator Mechanical Ventilator 08/18/19 20:00 98.0 76 30 111/49 (69) 99 08/18/19 20:00 73 08/18/19 19:30 72 30 132/45 (74) 100 3/16/20 19:05 69 30 50 08/18/19 19:05 100 Mechanical Ventilator 50 08/18/19 19:00 65 30 103/43 (63) 100 08/18/19 19:00 103/43 08/18/19 18:45 66 29 104/45 (64) 100 08/18/19 18:30 81 21 100/43 (62) 100 08/18/19 18:15 73 28 104/43 (63) 100 08/18/19 18:00 106/44 08/18/19 18:00 72 29 106/44 (64) 100 08/18/19 17:30 72 19 137/56 (83) 100 08/18/19 17:15 73 23 104/46 (65) 100 08/18/19 17:00 101/51 08/18/19 17:00 73 21 130/52 (78) 100 08/18/19 17:00 78 23 101/51 (68) 99 08/18/19 16:58 72 30 60 08/18/19 16:45 72 29 122/45 (70) 100 08/18/19 16:30 74 21 129/50 (76) 100 08/18/19 16:15 73 27 118/48 (71) 100 08/18/19 16:00 Mechanical Ventilator Mechanical Ventilator 08/18/19 16:00 73 08/18/19 16:00 98.7 71 22 96/52 (67) 99 08/18/19 16:00 96/52 08/18/19 15:45 76 30 118/51 (73) 100 08/18/19 15:30 72 30 106/44 (64) 100 08/18/19 15:15 73 28 101/49 (66) 100 08/18/19 15:00 80 08/18/19 15:00 102/46 08/18/19 15:00 79 25 102/46 (64) 99 08/18/19 14:58 68 30 80 08/18/19 14:40 71 30 89/42 (58) 100 08/18/19 14:40 89/42 08/18/19 14:35 88/41 08/18/19 14:35 69 29 88/41 (57) 100 08/18/19 14:30 68 30 89/47 (61) 100 08/18/19 14:30 89/47 08/18/19 14:15 73 30 96/41 (59) 100 08/18/19 14:00 100/43 08/18/19 14:00 71 30 100/43 (62) 100 08/18/19 13:45 68 30 116/50 (72) 99 08/18/19 13:30 73 29 117/63 (81) 96 08/18/19 13:28 101/47 08/18/19 13:20 78 29 101/47 (65) 89 08/18/19 13:15 75 24 93/45 (61) 84 08/18/19 13:08 85 28 51/30 (37) 97 08/18/19 13:06 75 30 52/30 (37) 97 08/18/19 13:00 73 30 60/35 (43) 93 08/18/19 12:49 78 27 62/36 (45) 97 08/18/19 12:48 74 30 100 Status: sedated Condition: critical Neck: full ROM Heart: HR/BP stable Abdomen: soft, active bowel sounds Extremities: edema Accucheck: 153 Critical Care - Subjective ROS Limited/Unobtainable: Yes Condition: critical FI02: 40 Vent Support Breath Rate: 30 Vent Support Mode: AC Vent Tidal Volume: 600 Sputum Amount: Scant PEEP: 5.0 PIP: 44 Tube Feeding Amount: 45 I&O: Intake and Output 08/18/19 08/19/19 19:00 07:00 Intake Total 2633.375 ml 805.0 ml Output Total 65 ml 70 ml Balance 2568.375 ml 735.0 ml IV Total 2633.375 ml 805.0 ml Output Urine Total 65 ml 70 ml # Bowel Movements 2 5 CXR: ET in good position ET-Tube: 8.0 ET Position: 26 Labs: Laboratory Tests Test 08/18/19 17:00 08/19/19 03:20 08/19/19 12:10 Arterial Blood pH 7.542 (7.350-7.450) 7.632 (7.350-7.450) Arterial Blood Partial Pressure CO2 37.1 mmHg (35.0-45.0) 27.1 mmHg (35.0-45.0) L Arterial Blood Partial Pressure O2 141.8 mmHg (75.0-100.0) H 83.8 mmHg (75.0-100.0) Arterial Blood HCO3 31.2 mmol/L (22.0-26.0) H 28.0 mmol/L (22.0-26.0) H Arterial Blood Oxygen Saturation 98.8 % (95-100) 96.9 % (95-100) Arterial Blood Base Excess 8.2 (-2-2) H 7.3 (-2-2) H Joe Test Positive Positive White Blood Count 12.4 K/UL (4.8-10.8) H Red Blood Count 3.76 M/UL (4.70-6.10) L Hemoglobin 11.8 G/DL (14.2-18.0) L Hematocrit 35.1 % (42.0-52.0) L Mean Corpuscular Volume 93 FL (80-99) Mean Corpuscular Hemoglobin 31.4 PG (27.0-31.0) H Mean Corpuscular Hemoglobin Concent 33.7 G/DL (32.0-36.0) Red Cell Distribution Width 12.7 % (11.6-14.8) Platelet Count 336 K/UL (150-450) Mean Platelet Volume 5.1 FL (6.5-10.1) L Neutrophils (%) (Auto) % (45.0-75.0) Lymphocytes (%) (Auto) % (20.0-45.0) Monocytes (%) (Auto) % (1.0-10.0) Eosinophils (%) (Auto) % (0.0-3.0) Basophils (%) (Auto) % (0.0-2.0) Sodium Level 145 MMOL/L (136-145) Potassium Level 4.0 MMOL/L (3.5-5.1) Chloride Level 109 MMOL/L (98-107) H Carbon Dioxide Level 29 MMOL/L (21-32) Anion Gap 7 mmol/L (5-15) Blood Urea Nitrogen 43 mg/dL (7-18) H Creatinine 1.6 MG/DL (0.55-1.30) #H Estimat Glomerular Filtration Rate 42.0 mL/min (>60) Glucose Level 171 MG/DL (74-106) H Calcium Level 7.7 MG/DL (8.5-10.1) L Phosphorus Level 2.4 MG/DL (2.5-4.9) L Magnesium Level 2.1 MG/DL (1.8-2.4) Total Bilirubin 0.5 MG/DL (0.2-1.0) Aspartate Amino Transf (AST/SGOT) 28 U/L (15-37) Alanine Aminotransferase (ALT/SGPT) 49 U/L (12-78) Alkaline Phosphatase 127 U/L (46-116) H Troponin I 0.088 ng/mL (0.000-0.056) C-Reactive Protein, Quantitative 5.7 mg/dL (0.00-0.90) H Pro-B-Type Natriuretic Peptide 3383 pg/mL (0-125) H Total Protein 5.0 G/DL (6.4-8.2) L Albumin 2.3 G/DL (3.4-5.0) L Globulin 2.7 g/dL Albumin/Globulin Ratio 0.9 (1.0-2.7) L Nicole Graves MD Aug 19, 2019 12:30
--- NOTE | 2019-08-19 12:34 | Surgery Progress Note ---
Surgery Progress Note Subjective Procedure Performed Right femoral triple-lumen central venous catheter insertion Additional Comments HD improved off pressors now Objective Last 24 Hour Vital Signs Date Time Temp Pulse Resp B/P (MAP) Pulse Ox O2 Delivery O2 Flow Rate FiO2 08/19/19 12:29 40 08/19/19 12:00 Mechanical Ventilator Mechanical Ventilator 08/19/19 10:46 83 30 40 08/19/19 09:13 71 30 100 Mechanical Ventilator 40 75 30 40 08/19/19 09:00 76 29 130/54 (79) 100 08/19/19 08:30 76 25 137/58 (84) 100 08/19/19 08:00 Mechanical Ventilator Mechanical Ventilator 08/19/19 08:00 40 08/19/19 08:00 99.8 69 29 124/41 (68) 100 08/19/19 07:30 77 27 127/51 (76) 100 08/19/19 07:00 73 18 115/56 (75) 100 08/19/19 06:50 72 30 40 08/19/19 06:24 116/56 (76) 08/19/19 06:00 76 18 115/48 (70) 99 08/19/19 05:30 74 18 126/50 (75) 99 08/19/19 05:08 81 30 40 08/19/19 05:00 72 12 136/56 (82) 99 08/19/19 04:30 103 13 122/53 (76) 99 08/19/19 04:00 74 08/19/19 04:00 Mechanical Ventilator Mechanical Ventilator 08/19/19 04:00 40 08/19/19 04:00 99.1 79 18 126/52 (76) 99 08/19/19 03:30 75 24 108/47 (67) 100 08/19/19 03:13 76 30 40 08/19/19 03:00 78 16 112/68 (83) 94 08/19/19 02:30 73 30 118/54 (75) 99 08/19/19 02:00 74 27 114/45 (68) 98 08/19/19 01:30 75 15 90/44 (59) 98 08/19/19 01:11 78 30 40 08/19/19 01:00 77 3 99/43 (61) 100 08/19/19 00:58 118/61 3/17/20 00:30 76 9 114/51 (72) 100 08/19/19 00:15 73 0 114/52 (72) 100 08/19/19 00:00 98.4 74 0 115/43 (67) 99 08/19/19 00:00 72 08/19/19 00:00 Mechanical Ventilator Mechanical Ventilator 08/19/19 00:00 50 08/18/19 23:30 74 20 101/42 (61) 100 08/18/19 23:00 71 18 90/35 (53) 100 73 08/18/19 23:00 78 30 50 08/18/19 22:30 74 17 103/42 (62) 100 72 08/18/19 22:00 73 28 110/49 (69) 100 71 08/18/19 21:31 73 30 100 Mechanical Ventilator 50 08/18/19 21:30 72 30 105/45 (65) 100 76 08/18/19 21:16 74 30 Mechanical Ventilator 50 50 08/18/19 21:00 72 30 101/42 (61) 100 73 08/18/19 21:00 99/41 08/18/19 20:30 70 30 102/40 (60) 100 08/18/19 20:15 72 30 105/42 (63) 99 08/18/19 20:00 50 08/18/19 20:00 145/70 08/18/19 20:00 Mechanical Ventilator Mechanical Ventilator 08/18/19 20:00 98.0 76 30 111/49 (69) 99 08/18/19 20:00 73 08/18/19 19:30 72 30 132/45 (74) 100 08/18/19 19:05 69 30 50 08/18/19 19:05 100 Mechanical Ventilator 50 08/18/19 19:00 65 30 103/43 (63) 100 08/18/19 19:00 103/43 08/18/19 18:45 66 29 104/45 (64) 100 08/18/19 18:30 81 21 100/43 (62) 100 08/18/19 18:15 73 28 104/43 (63) 100 08/18/19 18:00 106/44 08/18/19 18:00 72 29 106/44 (64) 100 08/18/19 17:30 72 19 137/56 (83) 100 3/16/20 17:15 73 23 104/46 (65) 100 08/18/19 17:00 101/51 08/18/19 17:00 73 21 130/52 (78) 100 08/18/19 17:00 78 23 101/51 (68) 99 08/18/19 16:58 72 30 60 08/18/19 16:45 72 29 122/45 (70) 100 08/18/19 16:30 74 21 129/50 (76) 100 08/18/19 16:15 73 27 118/48 (71) 100 08/18/19 16:00 Mechanical Ventilator Mechanical Ventilator 08/18/19 16:00 73 08/18/19 16:00 98.7 71 22 96/52 (67) 99 08/18/19 16:00 96/52 08/18/19 15:45 76 30 118/51 (73) 100 08/18/19 15:30 72 30 106/44 (64) 100 08/18/19 15:15 73 28 101/49 (66) 100 08/18/19 15:00 80 08/18/19 15:00 102/46 08/18/19 15:00 79 25 102/46 (64) 99 08/18/19 14:58 68 30 80 08/18/19 14:40 71 30 89/42 (58) 100 08/18/19 14:40 89/42 08/18/19 14:35 88/41 08/18/19 14:35 69 29 88/41 (57) 100 08/18/19 14:30 68 30 89/47 (61) 100 08/18/19 14:30 89/47 08/18/19 14:15 73 30 96/41 (59) 100 08/18/19 14:00 100/43 08/18/19 14:00 71 30 100/43 (62) 100 08/18/19 13:45 68 30 116/50 (72) 99 08/18/19 13:30 73 29 117/63 (81) 96 08/18/19 13:28 101/47 08/18/19 13:20 78 29 101/47 (65) 89 08/18/19 13:15 75 24 93/45 (61) 84 08/18/19 13:08 85 28 51/30 (37) 97 3/16/20 13:06 75 30 52/30 (37) 97 08/18/19 13:00 73 30 60/35 (43) 93 08/18/19 12:49 78 27 62/36 (45) 97 08/18/19 12:48 74 30 100 I&O Intake and Output 08/18/19 08/19/19 19:00 07:00 Intake Total 2633.375 ml 805.0 ml Output Total 65 ml 70 ml Balance 2568.375 ml 735.0 ml IV Total 2633.375 ml 805.0 ml Output Urine Total 65 ml 70 ml # Bowel Movements 2 5 Dressing: other Wound: other Cardiovascular: RSR Respiratory: decreased breath sounds Abdomen: soft, non-tender, present bowel sounds Extremities: no cyanosis Laboratory Tests Test 08/18/19 17:00 08/19/19 03:20 08/19/19 12:10 Arterial Blood pH 7.542 (7.350-7.450) 7.632 (7.350-7.450) Arterial Blood Partial Pressure CO2 37.1 mmHg (35.0-45.0) 27.1 mmHg (35.0-45.0) L Arterial Blood Partial Pressure O2 141.8 mmHg (75.0-100.0) H 83.8 mmHg (75.0-100.0) Arterial Blood HCO3 31.2 mmol/L (22.0-26.0) H 28.0 mmol/L (22.0-26.0) H Arterial Blood Oxygen Saturation 98.8 % (95-100) 96.9 % (95-100) Arterial Blood Base Excess 8.2 (-2-2) H 7.3 (-2-2) H Joe Test Positive Positive White Blood Count 12.4 K/UL (4.8-10.8) H Red Blood Count 3.76 M/UL (4.70-6.10) L Hemoglobin 11.8 G/DL (14.2-18.0) L Hematocrit 35.1 % (42.0-52.0) L Mean Corpuscular Volume 93 FL (80-99) Mean Corpuscular Hemoglobin 31.4 PG (27.0-31.0) H Mean Corpuscular Hemoglobin Concent 33.7 G/DL (32.0-36.0) Red Cell Distribution Width 12.7 % (11.6-14.8) Platelet Count 336 K/UL (150-450) Mean Platelet Volume 5.1 FL (6.5-10.1) L Neutrophils (%) (Auto) % (45.0-75.0) Lymphocytes (%) (Auto) % (20.0-45.0) Monocytes (%) (Auto) % (1.0-10.0) Eosinophils (%) (Auto) % (0.0-3.0) Basophils (%) (Auto) % (0.0-2.0) Sodium Level 145 MMOL/L (136-145) Potassium Level 4.0 MMOL/L (3.5-5.1) Chloride Level 109 MMOL/L (98-107) H Carbon Dioxide Level 29 MMOL/L (21-32) Anion Gap 7 mmol/L (5-15) Blood Urea Nitrogen 43 mg/dL (7-18) H Creatinine 1.6 MG/DL (0.55-1.30) #H Estimat Glomerular Filtration Rate 42.0 mL/min (>60) Glucose Level 171 MG/DL (74-106) H Calcium Level 7.7 MG/DL (8.5-10.1) L Phosphorus Level 2.4 MG/DL (2.5-4.9) L Magnesium Level 2.1 MG/DL (1.8-2.4) Total Bilirubin 0.5 MG/DL (0.2-1.0) Aspartate Amino Transf (AST/SGOT) 28 U/L (15-37) Alanine Aminotransferase (ALT/SGPT) 49 U/L (12-78) Alkaline Phosphatase 127 U/L (46-116) H Troponin I 0.088 ng/mL (0.000-0.056) C-Reactive Protein, Quantitative 5.7 mg/dL (0.00-0.90) H Pro-B-Type Natriuretic Peptide 3383 pg/mL (0-125) H Total Protein 5.0 G/DL (6.4-8.2) L Albumin 2.3 G/DL (3.4-5.0) L Globulin 2.7 g/dL Albumin/Globulin Ratio 0.9 (1.0-2.7) L Plan Problems: (1) Nosocomial pneumonia (2) AUREA (acute kidney injury) (3) Cardiomyopathy (4) Obesity (BMI 30.0-34.9) (5) DMII (diabetes mellitus, type 2) (6) Cardiac LV ejection fraction 40% (7) Pulmonary edema (8) Cardiopulmonary arrest Assessment & Plan: Cardiopulmonary arrest septic requiring urgent emergency line placement for pressors and fluids and meds Please see procedure report Full examination performed no other surgical issues found at this time etiology unknown likely surgical in nature Antibiotics fluids Pressors Vent off pressors line okay labs reviewed (9) Respiratory failure (10) History of hypertension (11) COPD (chronic obstructive pulmonary disease) (12) CAD (coronary artery disease) (13) Atrial fibrillation (14) Dementia with behavioral disturbance (15) Upper respiratory infection (16) Acute respiratory failure (17) Dyspnea (18) UTI (urinary tract infection) Prosper Hummel Aug 19, 2019 12:34
--- NOTE | 2019-08-19 15:18 | Infectious Diseases Prog Note ---
Assessment/Plan Assessment/Plan ASSESSMENT: The patient is a 79-year-old male with: Leukocytosis; mild Fever , sp Sepsis, Sp Pneumonia ( probable asp), Sp RX -08/13 Scx: MDR-ACB (Tygacil LANI: 4) - CXR: 1. Streaky opacities in the right lower lung may represent atelectasis versus scarring. Left basilar opacity may represent atelectasis. Component of pneumonia is not excluded. Pulmonary vasculature congestion. -08/01 ucx NTD - sp cx: nl anastacio Urinary tract infection, SP Rx 08/17 Sp code blue and intubation 07/31 Sp Code blue and intubation , sp extubation 08/12 , Hyperlipidemia. COPD. History of GERD. History of encephalopathy. History of CAD/[place]. History of cardiomyopathy. Hypertension. PLAN: cont on Merrem 01/08- ( will cont as pt fever and WBC improved), add Colsitn INH (MDR-ACB) #5 08/14 SP IV Vanco # 4 3/ SP Zosyn and IV Vanco # / , -08/01 SP Rocephin day # 10 - 07/31 sp sp Dox # 6 Monitor CBC. Monitor BMP. Monitor chest x-ray cont ICU Support Rpt Cx (B,U,S) discussed with RN Subjective Allergies: Coded Allergies: No Known Allergies (Unverified , 06/03/17) Subjective oin vent in ICU off of pressorsafebrile Objective Vital Signs Last 24 Hour Vital Signs Date Time Temp Pulse Resp B/P (MAP) Pulse Ox O2 Delivery O2 Flow Rate FiO2 08/19/19 12:31 69 16 40 08/19/19 12:30 70 11 121/49 (73) 99 08/19/19 12:29 40 08/19/19 12:00 Mechanical Ventilator Mechanical Ventilator 08/19/19 12:00 99.6 73 30 104/47 (66) 98 08/19/19 12:00 71 08/19/19 11:00 83 24 104/57 (73) 98 08/19/19 11:00 105/46 08/19/19 10:46 83 30 40 08/19/19 10:30 84 28 95/51 (66) 98 08/19/19 10:00 100/42 08/19/19 10:00 81 30 140/51 (80) 99 08/19/19 09:13 71 30 100 Mechanical Ventilator 40 75 30 40 08/19/19 09:00 140/57 08/19/19 09:00 76 29 130/54 (79) 100 08/19/19 08:30 76 25 137/58 (84) 100 08/19/19 08:00 Mechanical Ventilator Mechanical Ventilator 08/19/19 08:00 40 08/19/19 08:00 73 08/19/19 08:00 130/57 08/19/19 08:00 99.8 69 29 124/41 (68) 100 08/19/19 07:30 77 27 127/51 (76) 100 08/19/19 07:00 73 18 115/56 (75) 100 08/19/19 07:00 115/46 08/19/19 06:50 72 30 40 08/19/19 06:24 116/56 (76) 08/19/19 06:00 76 18 115/48 (70) 99 08/19/19 05:30 74 18 126/50 (75) 99 08/19/19 05:08 81 30 40 08/19/19 05:00 72 12 136/56 (82) 99 08/19/19 04:30 103 13 122/53 (76) 99 08/19/19 04:00 74 08/19/19 04:00 Mechanical Ventilator Mechanical Ventilator 08/19/19 04:00 40 08/19/19 04:00 99.1 79 18 126/52 (76) 99 08/19/19 03:30 75 24 108/47 (67) 100 08/19/19 03:13 76 30 40 08/19/19 03:00 78 16 112/68 (83) 94 08/19/19 02:30 73 30 118/54 (75) 99 08/19/19 02:00 74 27 114/45 (68) 98 08/19/19 01:30 75 15 90/44 (59) 98 08/19/19 01:11 78 30 40 08/19/19 01:00 77 3 99/43 (61) 100 08/19/19 00:58 118/61 08/19/19 00:30 76 9 114/51 (72) 100 08/19/19 00:15 73 0 114/52 (72) 100 08/19/19 00:00 98.4 74 0 115/43 (67) 99 08/19/19 00:00 72 08/19/19 00:00 Mechanical Ventilator Mechanical Ventilator 08/19/19 00:00 50 08/18/19 23:30 74 20 101/42 (61) 100 08/18/19 23:00 71 18 90/35 (53) 100 73 08/18/19 23:00 78 30 50 08/18/19 22:30 74 17 103/42 (62) 100 72 08/18/19 22:00 73 28 110/49 (69) 100 71 08/18/19 21:31 73 30 100 Mechanical Ventilator 50 08/18/19 21:30 72 30 105/45 (65) 100 76 08/18/19 21:16 74 30 Mechanical Ventilator 50 50 08/18/19 21:00 72 30 101/42 (61) 100 73 08/18/19 21:00 99/41 08/18/19 20:30 70 30 102/40 (60) 100 08/18/19 20:15 72 30 105/42 (63) 99 08/18/19 20:00 50 08/18/19 20:00 145/70 08/18/19 20:00 Mechanical Ventilator Mechanical Ventilator 08/18/19 20:00 98.0 76 30 111/49 (69) 99 08/18/19 20:00 73 08/18/19 19:30 72 30 132/45 (74) 100 08/18/19 19:05 69 30 50 08/18/19 19:05 100 Mechanical Ventilator 50 08/18/19 19:00 65 30 103/43 (63) 100 08/18/19 19:00 103/43 08/18/19 18:45 66 29 104/45 (64) 100 08/18/19 18:30 81 21 100/43 (62) 100 08/18/19 18:15 73 28 104/43 (63) 100 08/18/19 18:00 106/44 08/18/19 18:00 72 29 106/44 (64) 100 08/18/19 17:30 72 19 137/56 (83) 100 08/18/19 17:15 73 23 104/46 (65) 100 08/18/19 17:00 101/51 08/18/19 17:00 73 21 130/52 (78) 100 08/18/19 17:00 78 23 101/51 (68) 99 08/18/19 16:58 72 30 60 08/18/19 16:45 72 29 122/45 (70) 100 08/18/19 16:30 74 21 129/50 (76) 100 08/18/19 16:15 73 27 118/48 (71) 100 08/18/19 16:00 Mechanical Ventilator Mechanical Ventilator 08/18/19 16:00 73 08/18/19 16:00 98.7 71 22 96/52 (67) 99 08/18/19 16:00 96/52 08/18/19 15:45 76 30 118/51 (73) 100 08/18/19 15:30 72 30 106/44 (64) 100 Height (Feet): 5 Height (Inches): 6.00 Weight (Pounds): 206 HEENT: mucous membranes moist Respiratory/Chest: normal breath sounds Cardiovascular: regular rhythm Abdomen: no organomegaly Laboratory Tests Test 08/18/19 17:00 08/19/19 03:20 08/19/19 12:10 Arterial Blood pH 7.542 (7.350-7.450) 7.632 (7.350-7.450) Arterial Blood Partial Pressure CO2 37.1 mmHg (35.0-45.0) 27.1 mmHg (35.0-45.0) L Arterial Blood Partial Pressure O2 141.8 mmHg (75.0-100.0) H 83.8 mmHg (75.0-100.0) Arterial Blood HCO3 31.2 mmol/L (22.0-26.0) H 28.0 mmol/L (22.0-26.0) H Arterial Blood Oxygen Saturation 98.8 % (95-100) 96.9 % (95-100) Arterial Blood Base Excess 8.2 (-2-2) H 7.3 (-2-2) H Joe Test Positive Positive White Blood Count 12.4 K/UL (4.8-10.8) H Red Blood Count 3.76 M/UL (4.70-6.10) L Hemoglobin 11.8 G/DL (14.2-18.0) L Hematocrit 35.1 % (42.0-52.0) L Mean Corpuscular Volume 93 FL (80-99) Mean Corpuscular Hemoglobin 31.4 PG (27.0-31.0) H Mean Corpuscular Hemoglobin Concent 33.7 G/DL (32.0-36.0) Red Cell Distribution Width 12.7 % (11.6-14.8) Platelet Count 336 K/UL (150-450) Mean Platelet Volume 5.1 FL (6.5-10.1) L Neutrophils (%) (Auto) % (45.0-75.0) Lymphocytes (%) (Auto) % (20.0-45.0) Monocytes (%) (Auto) % (1.0-10.0) Eosinophils (%) (Auto) % (0.0-3.0) Basophils (%) (Auto) % (0.0-2.0) Sodium Level 145 MMOL/L (136-145) Potassium Level 4.0 MMOL/L (3.5-5.1) Chloride Level 109 MMOL/L (98-107) H Carbon Dioxide Level 29 MMOL/L (21-32) Anion Gap 7 mmol/L (5-15) Blood Urea Nitrogen 43 mg/dL (7-18) H Creatinine 1.6 MG/DL (0.55-1.30) #H Estimat Glomerular Filtration Rate 42.0 mL/min (>60) Glucose Level 171 MG/DL (74-106) H Calcium Level 7.7 MG/DL (8.5-10.1) L Phosphorus Level 2.4 MG/DL (2.5-4.9) L Magnesium Level 2.1 MG/DL (1.8-2.4) Total Bilirubin 0.5 MG/DL (0.2-1.0) Aspartate Amino Transf (AST/SGOT) 28 U/L (15-37) Alanine Aminotransferase (ALT/SGPT) 49 U/L (12-78) Alkaline Phosphatase 127 U/L (46-116) H Troponin I 0.088 ng/mL (0.000-0.056) C-Reactive Protein, Quantitative 5.7 mg/dL (0.00-0.90) H Pro-B-Type Natriuretic Peptide 3383 pg/mL (0-125) H Total Protein 5.0 G/DL (6.4-8.2) L Albumin 2.3 G/DL (3.4-5.0) L Globulin 2.7 g/dL Albumin/Globulin Ratio 0.9 (1.0-2.7) L Current Medications Medications (Trade) Dose Ordered Sig/Amaris Route PRN Reason Start Time Stop Time Status Last Admin Dose Admin Acetaminophen (Tylenol) 650 mg Q4H PRN NG Mild Pain/Temp > 100.5 08/18/19 09:30 09/15/19 09:29 Albuterol/ Ipratropium (Albuterol/ Ipratropium) 3 ml Q4H PRN HHN Shortness of Breath 08/18/19 10:00 08/21/19 21:59 Atorvastatin Calcium (Lipitor) 40 mg BEDTIME NG 08/18/19 21:00 09/13/19 20:59 08/18/19 20:43 Chlorhexidine Gluconate (Kamila-Hex 2%) 1 applic DAILY@2000 TOPIC 08/18/19 20:00 09/17/19 19:59 08/18/19 19:58 Clopidogrel Bisulfate (Plavix) 75 mg DAILY NG 08/19/19 09:00 09/13/19 08:59 08/19/19 08:21 Colistimethate Sodium (Colistin *inhalation use only*) 75 mg Q12HR@10,22 INH 08/18/19 10:00 08/22/19 21:59 08/19/19 09:17 Dextrose/Sodium Chloride 1,000 ml @ 50 mls/hr Q20H IV 08/18/19 14:00 09/17/19 13:59 08/19/19 06:11 Heparin Sodium (Porcine) (Heparin 5000 units/ml) 5,000 units EVERY 12 HOURS SUBQ 08/18/19 21:00 08/20/19 20:59 08/19/19 08:22 Hydralazine HCl (Apresoline) 10 mg Q6H PRN IV For High Blood Pressure 08/18/19 10:00 09/15/19 21:59 Hydrocortisone (Solu-CORTEF) 100 mg EVERY 8 HOURS IV 08/18/19 14:00 09/17/19 13:59 08/19/19 13:23 Meropenem 1 gm/ Sodium Chloride 55 ml @ 110 mls/hr Q12HR IVPB 08/19/19 21:00 08/22/19 23:59 Norepinephrine Bitartrate 4 mg/ Dextrose 250 ml @ 0 mls/hr Q24H IV 08/18/19 13:00 09/17/19 12:59 08/19/19 00:58 Olanzapine (ZyPREXA Zydis) 5 mg DAILY NG 08/19/19 09:00 09/29/19 11:59 08/19/19 08:21 Angel Rudolph MD Aug 19, 2019 15:18
--- NOTE | 2019-08-19 17:34 | Nephrology Progress Note ---
Assessment/Plan Problem List: (1) AUREA (acute kidney injury) Assessment: Serum creatinine rising (2) Cardiopulmonary arrest (3) Respiratory failure (4) Cardiomyopathy (5) Obesity (BMI 30.0-34.9) (6) DMII (diabetes mellitus, type 2) Assessment Acute Renal Failure : AUREA Most likely due to cardiorespiratory arrest and episode of hypotension. Patient also has cardiomyopathy with Ej Fx of 40 % on admission Obese : BMI 34.4 ? DM Other Dx (1) Cardiopulmonary arrest (2) Nosocomial pneumonia (3) Acute respiratory failure (4) COPD (chronic obstructive pulmonary disease) (5) Atrial fibrillation (6) Dementia with behavioral disturbance (7) CAD (coronary artery disease) Plan Pressors are off now patient's condition somewhat more stable In ICU He is intubated ventilator His blood pressure is more stable Overall he is still doing poorly Adjust blood pressure medications Stress dose of steroids Previously Monitor renal parameters. Serum creatinine improved Monitor urine output. Urine output improved. Avoid nephrotoxics. Weaning as possible. Remains intubated at this time. Correct electrolyte imbalances. Change tube feeding to Glucerna. Subjective ROS Limited/Unobtainable: Yes Objective Objective Last 24 Hour Vital Signs Date Time Temp Pulse Resp B/P (MAP) Pulse Ox O2 Delivery O2 Flow Rate FiO2 08/19/19 17:00 73 16 136/53 (80) 96 08/19/19 16:00 99.5 73 16 114/48 (70) 96 08/19/19 16:00 86 08/19/19 16:00 Mechanical Ventilator Mechanical Ventilator 08/19/19 15:13 84 17 40 08/19/19 15:00 86 21 138/53 (81) 99 08/19/19 14:00 74 16 119/45 (69) 97 08/19/19 13:00 75 15 137/50 (79) 98 08/19/19 12:31 69 16 40 08/19/19 12:30 70 11 121/49 (73) 99 08/19/19 12:29 40 08/19/19 12:00 Mechanical Ventilator Mechanical Ventilator 08/19/19 12:00 99.6 73 30 104/47 (66) 98 08/19/19 12:00 71 08/19/19 11:00 83 24 104/57 (73) 98 08/19/19 11:00 105/46 08/19/19 10:46 83 30 40 08/19/19 10:30 84 28 95/51 (66) 98 08/19/19 10:00 100/42 08/19/19 10:00 81 30 140/51 (80) 99 08/19/19 09:13 71 30 100 Mechanical Ventilator 40 75 30 40 08/19/19 09:00 140/57 08/19/19 09:00 76 29 130/54 (79) 100 08/19/19 08:30 76 25 137/58 (84) 100 08/19/19 08:00 Mechanical Ventilator Mechanical Ventilator 08/19/19 08:00 40 08/19/19 08:00 73 08/19/19 08:00 130/57 08/19/19 08:00 99.8 69 29 124/41 (68) 100 08/19/19 07:30 77 27 127/51 (76) 100 08/19/19 07:00 73 18 115/56 (75) 100 08/19/19 07:00 115/46 08/19/19 06:50 72 30 40 08/19/19 06:24 116/56 (76) 08/19/19 06:00 76 18 115/48 (70) 99 08/19/19 05:30 74 18 126/50 (75) 99 08/19/19 05:08 81 30 40 08/19/19 05:00 72 12 136/56 (82) 99 08/19/19 04:30 103 13 122/53 (76) 99 08/19/19 04:00 74 08/19/19 04:00 Mechanical Ventilator Mechanical Ventilator 08/19/19 04:00 40 08/19/19 04:00 99.1 79 18 126/52 (76) 99 08/19/19 03:30 75 24 108/47 (67) 100 08/19/19 03:13 76 30 40 08/19/19 03:00 78 16 112/68 (83) 94 08/19/19 02:30 73 30 118/54 (75) 99 08/19/19 02:00 74 27 114/45 (68) 98 08/19/19 01:30 75 15 90/44 (59) 98 08/19/19 01:11 78 30 40 08/19/19 01:00 77 3 99/43 (61) 100 3/17/20 00:58 118/61 3/17/20 00:30 76 9 114/51 (72) 100 08/19/19 00:15 73 0 114/52 (72) 100 08/19/19 00:00 98.4 74 0 115/43 (67) 99 08/19/19 00:00 72 08/19/19 00:00 Mechanical Ventilator Mechanical Ventilator 08/19/19 00:00 50 08/18/19 23:30 74 20 101/42 (61) 100 08/18/19 23:00 71 18 90/35 (53) 100 73 08/18/19 23:00 78 30 50 08/18/19 22:30 74 17 103/42 (62) 100 72 08/18/19 22:00 73 28 110/49 (69) 100 71 08/18/19 21:31 73 30 100 Mechanical Ventilator 50 08/18/19 21:30 72 30 105/45 (65) 100 76 08/18/19 21:16 74 30 Mechanical Ventilator 50 50 08/18/19 21:00 72 30 101/42 (61) 100 73 08/18/19 21:00 99/41 08/18/19 20:30 70 30 102/40 (60) 100 08/18/19 20:15 72 30 105/42 (63) 99 08/18/19 20:00 50 08/18/19 20:00 145/70 08/18/19 20:00 Mechanical Ventilator Mechanical Ventilator 08/18/19 20:00 98.0 76 30 111/49 (69) 99 08/18/19 20:00 73 08/18/19 19:30 72 30 132/45 (74) 100 08/18/19 19:05 69 30 50 08/18/19 19:05 100 Mechanical Ventilator 50 08/18/19 19:00 65 30 103/43 (63) 100 08/18/19 19:00 103/43 08/18/19 18:45 66 29 104/45 (64) 100 08/18/19 18:30 81 21 100/43 (62) 100 08/18/19 18:15 73 28 104/43 (63) 100 08/18/19 18:00 106/44 08/18/19 18:00 72 29 106/44 (64) 100 Intake and Output 08/18/19 08/19/19 19:00 07:00 Intake Total 2633.375 ml 862.5 ml Output Total 65 ml 70 ml Balance 2568.375 ml 792.5 ml IV Total 2633.375 ml 862.5 ml Output Urine Total 65 ml 70 ml # Bowel Movements 2 5 Current Medications Medications (Trade) Dose Ordered Sig/Amaris Route PRN Reason Start Time Stop Time Status Last Admin Dose Admin Acetaminophen (Tylenol) 650 mg Q4H PRN NG Mild Pain/Temp > 100.5 08/18/19 09:30 09/15/19 09:29 Albuterol/ Ipratropium (Albuterol/ Ipratropium) 3 ml Q4H PRN HHN Shortness of Breath 08/18/19 10:00 08/21/19 21:59 Atorvastatin Calcium (Lipitor) 40 mg BEDTIME NG 08/18/19 21:00 09/13/19 20:59 08/18/19 20:43 Chlorhexidine Gluconate (Kamila-Hex 2%) 1 applic DAILY@2000 TOPIC 08/18/19 20:00 09/17/19 19:59 08/18/19 19:58 Clopidogrel Bisulfate (Plavix) 75 mg DAILY NG 08/19/19 09:00 09/13/19 08:59 08/19/19 08:21 Colistimethate Sodium (Colistin *inhalation use only*) 75 mg Q12HR@10,22 INH 08/18/19 10:00 08/22/19 21:59 08/19/19 09:17 Dextrose/Sodium Chloride 1,000 ml @ 50 mls/hr Q20H IV 08/18/19 14:00 09/17/19 13:59 08/19/19 06:11 Heparin Sodium (Porcine) (Heparin 5000 units/ml) 5,000 units EVERY 12 HOURS SUBQ 08/18/19 21:00 08/20/19 20:59 08/19/19 08:22 Hydralazine HCl (Apresoline) 10 mg Q6H PRN IV For High Blood Pressure 08/18/19 10:00 09/15/19 21:59 Hydrocortisone (Solu-CORTEF) 100 mg EVERY 8 HOURS IV 08/18/19 14:00 09/17/19 13:59 08/19/19 13:23 Meropenem 1 gm/ Sodium Chloride 55 ml @ 110 mls/hr Q12HR IVPB 08/19/19 21:00 08/22/19 23:59 Norepinephrine Bitartrate 4 mg/ Dextrose 250 ml @ 0 mls/hr Q24H IV 08/18/19 13:00 09/17/19 12:59 08/19/19 00:58 Olanzapine (ZyPREXA Zydis) 5 mg DAILY NG 08/19/19 09:00 09/29/19 11:59 08/19/19 08:21 Laboratory Tests 08/19/19 03:20: White Blood Count 12.4H, Red Blood Count 3.76L, Hemoglobin 11.8L, Hematocrit 35.1L, Mean Corpuscular Volume 93, Mean Corpuscular Hemoglobin 31.4H, Mean Corpuscular Hemoglobin Concent 33.7, Red Cell Distribution Width 12.7, Platelet Count 336, Mean Platelet Volume 5.1L, Neutrophils (%) (Auto) , Lymphocytes (%) ( Auto) , Monocytes (%) (Auto) , Eosinophils (%) (Auto) , Basophils (%) (Auto) , Sodium Level 145, Potassium Level 4.0, Chloride Level 109H, Carbon Dioxide Level 29, Anion Gap 7, Blood Urea Nitrogen 43H, Creatinine 1.6#H, Estimat Glomerular Filtration Rate 42.0, Glucose Level 171H, Calcium Level 7.7L, Phosphorus Level 2.4L, Magnesium Level 2.1, Total Bilirubin 0.5, Aspartate Amino Transf (AST/SGOT) 28, Alanine Aminotransferase (ALT/SGPT) 49, Alkaline Phosphatase 127H, Troponin I 0.088H, C-Reactive Protein, Quantitative 5.7H, Pro- B-Type Natriuretic Peptide 3383H, Total Protein 5.0L, Albumin 2.3L, Globulin 2.7 , Albumin/Globulin Ratio 0.9L 08/19/19 12:10: Arterial Blood pH 7.632*H, Arterial Blood Partial Pressure CO2 27.1L, Arterial Blood Partial Pressure O2 83.8, Arterial Blood HCO3 28.0H, Arterial Blood Oxygen Saturation 96.9, Arterial Blood Base Excess 7.3H, Joe Test Positive Height (Feet): 5 Height (Inches): 6.00 Weight (Pounds): 206 General Appearance: no apparent distress, lethargic EENT: other - Intubated on ventilator Cardiovascular: tachycardia Respiratory/Chest: decreased breath sounds Abdomen: distended Objective no change Yunior Sexton MD Aug 19, 2019 17:34
[2019-08-19] MEDS: Dyna-Hex 2% Top Sol 2oz TOPIC SCH (20:46)
[2019-08-19] MEDS: Atorvastatin 20mg tab NG SCH (20:48)
[2019-08-19] MEDS ORDERED: Meropenem 1 GM in NS 55 ML IVPB SCH (21:00)
[2019-08-20] VITALS (25 sets, daily range): BP systolic 126–156; BP diastolic 45–68
--- NOTE | 2019-08-20 04:30 | Progress Note ---
DATE: 08/19/2019 CARDIOLOGY PROGRESS NOTE SUBJECTIVE: Remains critical and guarded. Remains on pressor support. Remains on ventilator support. Blood pressure parameters improving. Respiratory parameters tenuous. Continues to have respiratory failure due to development of respiratory acidosis. PHYSICAL EXAMINATION: VITAL SIGNS: Blood pressure 114/48, heart rate 73, respirations 16, temperature 99.5. LUNGS: Bilateral breath sounds. Rhonchi. Few wheezes. CARDIAC: Regular rhythm and rate. Normal S1, S2 with no new murmur. ABDOMEN: Soft. EXTREMITIES: There is no edema. IMPRESSION: 1. Status post respiratory failure. 2. Prior cardiopulmonary arrest. 3. Bradyarrhythmia due to above. 4. Acute kidney injury. 5. Respiratory failure. 6. Acute on chronic respiratory acidosis. 7. Acute myocardial infarction. 8. Ischemic cardiomyopathy. 9. Acute on chronic diastolic and systolic congestive heart failure. 10. Remains critical and guarded. PLAN: 1. Weaning efforts. 2. Antimicrobials. 3. Respiratory hygiene. 4. Taper off pressors. 5. Adjust IV fluids. 6. Hold beta-todd. 7. Continue amiodarone. 8. Replace electrolytes as needed. Saeed Sim M.D. DR: DARYA JOB#: [id number] CC:
--- NOTE | 2019-08-20 04:30 | Progress Note ---
DATE: 08/19/2019 SUBJECTIVE: The patient was successfully weaned from the Levophed drip today. He remained intubated with tachypnea with normal blood pressure and normal heart rate. PHYSICAL EXAMINATION: VITAL SIGNS: Blood pressure 134/47, his pulse is 78, respirations 20 to 25, and temperature 98.6. HEENT: Eyes were normal. ENT, mucous membranes were moist and intact. NECK: Supple with no JVD without lymph nodes. Tracheostomy site is clean. LUNGS: Clear without rhonchi, rales, or wheezing. HEART: Normal sounds with regular beats. There is no tachycardia at rest. ABDOMEN: Soft, nontender, with normal bowel sounds. EXTREMITIES: Warm without cyanosis, clubbing, or edema. LABORATORY AND DIAGNOSTIC DATA: Hemoglobin 11.8, hematocrit 35.9 with MCV of 93, WBC of 12.4, and platelets of 336,000. His BUN and creatinine are 43 and 1.6 respectively. It was 20 and 0.7 yesterday. His sodium is 145, potassium 4.0, chloride 109, and CO2 is 29. His troponin was positive with 0.088. His CRP is 5.7. His proBNP is . His albumin is 2.3. His total protein is 5.0. Urine culture from August 12, 2019, was negative. His last blood culture grew Acinetobacter baumannii on August 12, 2019. Chest x-ray shows bilateral improvement in infiltrate and decreased left pleural effusion. IMPRESSION: The patient from pressor support. He is now intubated and ventilator-dependent. His heart rate is normal. Respiratory rate is high. Repeat laboratory tests will be done in a.m. Further advice in weaning will be started in a.m. as well. Modesta Mulligan M.D. DR: ANKUR JOB#: [id number] CC:
[2019-08-20 05:41] LABS: BASOPHILS % (AUTO) 0.1 % (0.0-2.0); EOSINOPHILS % (AUTO) 0.1 % (0.0-3.0); HEMATOCRIT 31.8 % (42.0-52.0); HEMOGLOBIN 10.9 G/DL (14.2-18.0); LYMPHOCYTES % (AUTO) 10.3 % (20.0-45.0); MEAN CORPUSCULAR VOLUME 92 FL (80-99); NEUTROPHILS % (AUTO) 83.5 % (45.0-75.0); PLATELET COUNT 260 K/UL (150-450); RED BLOOD COUNT 3.45 M/UL (4.70-6.10); RED CELL DISTRIBUTION WIDTH 12.6 % (11.6-14.8); WHITE BLOOD COUNT 8.5 K/UL (4.8-10.8)
[2019-08-20 05:59] LABS: ALANINE AMINOTRANSFERASE 36 U/L (12-78); ALBUMIN 2.2 G/DL (3.4-5.0); ALBUMIN/GLOBULIN RATIO 0.8 (1.0-2.7); ALKALINE PHOSPHATASE 119 U/L (46-116); ANION GAP 7 mmol/L (5-15); ASPARTATE AMINO TRANSFERASE 31 U/L (15-37); BILIRUBIN,TOTAL 0.3 MG/DL (0.2-1.0); BLOOD UREA NITROGEN 56 mg/dL (7-18); CALCIUM 8.8 MG/DL (8.5-10.1); CARBON DIOXIDE 32 MMOL/L (21-32); CHLORIDE 114 MMOL/L (98-107); CHOLESTEROL 84 MG/DL (< 200); CREATININE 1.1 MG/DL (0.55-1.30); HDL CHOLESTEROL 32 MG/DL (40-60); PHOSPHORUS 3.2 MG/DL (2.5-4.9); SODIUM 153 MMOL/L (136-145); TRIGLYCERIDES 76 MG/DL (30-150)
[2019-08-20] MEDS: Hydrocortisone 100mg Inj IV SCH ×3 (06:11→21:08)
[2019-08-20] MEDS: D5 1/2NS 1,000 ML IV SCH (06:11)
[2019-08-20] MEDS: Meropenem 1 GM in NS 55 ML IVPB SCH ×2 (08:48→16:56)
[2019-08-20] MEDS: Amiodarone 200mg tab NG SCH (08:48)
[2019-08-20] MEDS: Spironolactone 25mg tab ORAL SCH (08:48)
[2019-08-20] MEDS: ZyPREXA Zydis 5mg tab NG SCH (08:48)
[2019-08-20] MEDS: Heparin 5000 units/ml inj SUBQ SCH (08:49)
[2019-08-20] MEDS: Colistin for inhalation INH SCH ×2 (10:15→20:55)
--- NOTE | 2019-08-20 12:28 | Pulmonolgy Critical Care Note ---
Critical Care - Asmt/Plan Problems: (1) Acute respiratory failure (2) Cardiopulmonary arrest (3) Cardiac LV ejection fraction 40% (4) Nosocomial pneumonia (5) Atrial fibrillation Assessment & Plan: controlled (6) Pulmonary edema (7) COPD (chronic obstructive pulmonary disease) (8) CAD (coronary artery disease) (9) Dementia with behavioral disturbance Respiratory: monitor respiratory rate, adjust FIO2, CXR Cardiac: continue to monitor HR/BP Renal: F/U I&O Infectious Disease: check cultures, continue antibiotics Gastrointestinal: continue feedings/current rate Endocrine: monitor blood sugar Hematologic: monitor H/H Neurologic: PRN Ativan, PRN Morphine Time Spent (Minutes): 40 Notes Reviewed: cardio, renal Discussed with: nurses, consultants, 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 - Objective Last 24 Hour Vital Signs Date Time Temp Pulse Resp B/P (MAP) Pulse Ox O2 Delivery O2 Flow Rate FiO2 08/20/19 12:00 98.4 65 16 142/65 (90) 99 08/20/19 12:00 Mechanical Ventilator Mechanical Ventilator 08/20/19 11:00 62 16 132/61 (84) 100 08/20/19 10:53 60 16 100 Mechanical Ventilator 40 65 16 08/20/19 10:00 70 18 147/57 (87) 97 08/20/19 09:25 69 16 40 08/20/19 09:00 71 14 133/55 (81) 98 08/20/19 08:00 72 08/20/19 08:00 98.5 75 16 138/53 (81) 97 08/20/19 08:00 40 08/20/19 08:00 Mechanical Ventilator Mechanical Ventilator 08/20/19 07:30 76 18 139/55 (83) 98 08/20/19 07:10 74 16 40 08/20/19 07:00 70 16 146/55 (85) 97 08/20/19 06:00 98.6 71 17 135/58 (83) 97 08/20/19 05:17 74 16 40 08/20/19 05:00 69 16 139/53 (81) 95 08/20/19 04:00 Mechanical Ventilator Mechanical Ventilator 08/20/19 04:00 77 16 133/58 (83) 96 08/20/19 04:00 76 08/20/19 04:00 40 08/20/19 03:13 72 16 40 08/20/19 03:00 73 21 128/54 (78) 96 08/20/19 02:00 75 13 135/51 (79) 94 08/20/19 01:17 86 16 40 08/20/19 01:00 83 14 127/51 (76) 94 08/20/19 00:00 98.4 86 16 130/56 (80) 96 08/20/19 00:00 40 08/20/19 00:00 85 08/20/19 00:00 Mechanical Ventilator Mechanical Ventilator 08/19/19 23:00 85 17 142/53 (82) 100 08/19/19 22:45 84 18 40 08/19/19 22:00 68 16 120/48 (72) 99 08/19/19 22:00 73 16 134/47 (76) 97 08/19/19 21:25 78 17 99 Mechanical Ventilator 40 78 18 40 08/19/19 21:00 73 16 134/47 (76) 97 08/19/19 20:00 40 08/19/19 20:00 Mechanical Ventilator Mechanical Ventilator 08/19/19 20:00 98.6 87 20 127/58 (81) 99 08/19/19 20:00 70 08/19/19 19:33 82 20 40 08/19/19 19:00 70 16 127/48 (74) 95 08/19/19 18:00 71 16 124/48 (73) 96 08/19/19 17:29 70 16 40 08/19/19 17:00 73 16 136/53 (80) 96 08/19/19 16:00 99.5 73 16 114/48 (70) 96 08/19/19 16:00 40 08/19/19 16:00 86 08/19/19 16:00 Mechanical Ventilator Mechanical Ventilator 08/19/19 15:13 84 17 40 08/19/19 15:00 86 21 138/53 (81) 99 08/19/19 14:00 74 16 119/45 (69) 97 08/19/19 13:00 75 15 137/50 (79) 98 08/19/19 12:31 69 16 40 08/19/19 12:30 70 11 121/49 (73) 99 08/19/19 12:29 40 Status: sedated Condition: critical HEENT: atraumatic Neck: full ROM Heart: HR/BP stable, HR/BP unstable Abdomen: soft, non-tender Extremities: no C/C/E, edema Accucheck: 153 Critical Care - Subjective ROS Limited/Unobtainable: Yes Condition: critical EKG Rhythm: Sinus Rhythm FI02: 40 Vent Support Breath Rate: 16 Vent Support Mode: AC Vent Tidal Volume: 600 Sputum Amount: Small PEEP: 5.0 PIP: 31 Tube Feeding Amount: 55 I&O: Intake and Output 08/19/19 08/20/19 19:00 07:00 Intake Total 920.0 ml 1030 ml Output Total 255 ml 345 ml Balance 665.0 ml 685 ml Free Water 50 ml 20 ml IV Total 630.0 ml 455 ml Tube Feeding 240 ml 465 ml Blood Product 90 ml Output Urine Total 255 ml 345 ml # Bowel Movements 1 ET-Tube: 8.0 ET Position: 26 Labs: Laboratory Tests Test 08/20/19 04:00 08/20/19 10:14 White Blood Count 8.5 K/UL (4.8-10.8) Red Blood Count 3.45 M/UL (4.70-6.10) L Hemoglobin 10.9 G/DL (14.2-18.0) L Hematocrit 31.8 % (42.0-52.0) L Mean Corpuscular Volume 92 FL (80-99) Mean Corpuscular Hemoglobin 31.4 PG (27.0-31.0) H Mean Corpuscular Hemoglobin Concent 34.1 G/DL (32.0-36.0) Red Cell Distribution Width 12.6 % (11.6-14.8) Platelet Count 260 K/UL (150-450) Mean Platelet Volume 5.2 FL (6.5-10.1) L Neutrophils (%) (Auto) 83.5 % (45.0-75.0) H Lymphocytes (%) (Auto) 10.3 % (20.0-45.0) L Monocytes (%) (Auto) 6.0 % (1.0-10.0) Eosinophils (%) (Auto) 0.1 % (0.0-3.0) Basophils (%) (Auto) 0.1 % (0.0-2.0) Sodium Level 153 MMOL/L (136-145) H Potassium Level 4.0 MMOL/L (3.5-5.1) Chloride Level 114 MMOL/L (98-107) H Carbon Dioxide Level 32 MMOL/L (21-32) Anion Gap 7 mmol/L (5-15) Blood Urea Nitrogen 56 mg/dL (7-18) H Creatinine 1.1 MG/DL (0.55-1.30) Estimat Glomerular Filtration Rate > 60 mL/min (>60) Glucose Level 188 MG/DL (74-106) H Lactic Acid Level 1.50 mmol/L (0.4-2.0) Uric Acid 4.5 MG/DL (2.6-7.2) Calcium Level 8.8 MG/DL (8.5-10.1) Phosphorus Level 3.2 MG/DL (2.5-4.9) Magnesium Level 2.3 MG/DL (1.8-2.4) Total Bilirubin 0.3 MG/DL (0.2-1.0) Gamma Glutamyl Transpeptidase 27 U/L (5-85) Aspartate Amino Transf (AST/SGOT) 31 U/L (15-37) Alanine Aminotransferase (ALT/SGPT) 36 U/L (12-78) Alkaline Phosphatase 119 U/L (46-116) H Troponin I 0.105 ng/mL (0.000-0.056) C-Reactive Protein, Quantitative 3.9 mg/dL (0.00-0.90) H Pro-B-Type Natriuretic Peptide 3057 pg/mL (0-125) H Total Protein 5.0 G/DL (6.4-8.2) L Albumin 2.2 G/DL (3.4-5.0) L Globulin 2.8 g/dL Albumin/Globulin Ratio 0.8 (1.0-2.7) L Triglycerides Level 76 MG/DL (30-150) Cholesterol Level 84 MG/DL (< 200) LDL Cholesterol 42 mg/dL (<100) HDL Cholesterol 32 MG/DL (40-60) L Cholesterol/HDL Ratio 2.6 (3.3-4.4) L Arterial Blood pH 7.462 (7.350-7.450) Arterial Blood Partial Pressure CO2 43.2 mmHg (35.0-45.0) Arterial Blood Partial Pressure O2 96.8 mmHg (75.0-100.0) Arterial Blood HCO3 30.2 mmol/L (22.0-26.0) H Arterial Blood Oxygen Saturation 97.1 % (95-100) Arterial Blood Base Excess 5.8 (-2-2) H Joe Test Positive Nicole Graves MD Aug 20, 2019 12:28
--- NOTE | 2019-08-20 12:41 | Diagnostic Imaging Report ---
Indication: Abdominal pain Comparison: 08/18/2019 Single view of the abdomen obtained Findings: Image of the upper abdomen demonstrating the NG tube in good position within the stomach. IMPRESSION: NG tube in good position
--- NOTE | 2019-08-20 12:46 | Infectious Diseases Prog Note ---
Assessment/Plan Assessment/Plan ASSESSMENT: The patient is a 79-year-old male with: Leukocytosis; Sp Fever , sp Sepsis, Sp Pneumonia ( probable asp), Sp RX -08/13 Scx: MDR-ACB (Tygacil LANI: 4) - CXR: 1. Streaky opacities in the right lower lung may represent atelectasis versus scarring. Left basilar opacity may represent atelectasis. Component of pneumonia is not excluded. Pulmonary vasculature congestion. -08/01 ucx NTD - sp cx: nl anastacio Urinary tract infection, SP Rx 08/17 Sp code blue and intubation 07/31 Sp Code blue and intubation , sp extubation 08/12 , Hyperlipidemia. COPD. History of GERD. History of encephalopathy. History of CAD/AL. History of cardiomyopathy. Hypertension. PLAN: cont on Merrem 02/08- ( will cont as pt fever and WBC improved), add Colsitn INH (MDR-ACB) #6 08/14 SP IV Vanco # 4 3 SP Zosyn and IV Vanco # / , -08/01 SP Rocephin day # 10 - 07/31 sp sp Dox # 6 Monitor CBC. Monitor BMP. Monitor chest x-ray cont ICU Support Rpt Cx (B,U,S) discussed with RN Subjective Allergies: Coded Allergies: No Known Allergies (Unverified , 06/03/17) Subjective afebrile in ICU Objective Vital Signs Last 24 Hour Vital Signs Date Time Temp Pulse Resp B/P (MAP) Pulse Ox O2 Delivery O2 Flow Rate FiO2 08/20/19 12:00 98.4 65 16 142/65 (90) 99 08/20/19 12:00 40 08/20/19 12:00 Mechanical Ventilator Mechanical Ventilator 08/20/19 11:00 62 16 132/61 (84) 100 08/20/19 10:53 60 16 100 Mechanical Ventilator 40 65 16 08/20/19 10:00 70 18 147/57 (87) 97 08/20/19 09:25 69 16 40 08/20/19 09:00 71 14 133/55 (81) 98 08/20/19 08:00 72 08/20/19 08:00 98.5 75 16 138/53 (81) 97 08/20/19 08:00 40 08/20/19 08:00 Mechanical Ventilator Mechanical Ventilator 08/20/19 07:30 76 18 139/55 (83) 98 08/20/19 07:10 74 16 40 08/20/19 07:00 70 16 146/55 (85) 97 08/20/19 06:00 98.6 71 17 135/58 (83) 97 08/20/19 05:17 74 16 40 08/20/19 05:00 69 16 139/53 (81) 95 08/20/19 04:00 Mechanical Ventilator Mechanical Ventilator 08/20/19 04:00 77 16 133/58 (83) 96 08/20/19 04:00 76 08/20/19 04:00 40 08/20/19 03:13 72 16 40 08/20/19 03:00 73 21 128/54 (78) 96 08/20/19 02:00 75 13 135/51 (79) 94 08/20/19 01:17 86 16 40 08/20/19 01:00 83 14 127/51 (76) 94 08/20/19 00:00 98.4 86 16 130/56 (80) 96 08/20/19 00:00 40 08/20/19 00:00 85 08/20/19 00:00 Mechanical Ventilator Mechanical Ventilator 08/19/19 23:00 85 17 142/53 (82) 100 08/19/19 22:45 84 18 40 08/19/19 22:00 68 16 120/48 (72) 99 08/19/19 22:00 73 16 134/47 (76) 97 08/19/19 21:25 78 17 99 Mechanical Ventilator 40 78 18 40 08/19/19 21:00 73 16 134/47 (76) 97 08/19/19 20:00 40 08/19/19 20:00 Mechanical Ventilator Mechanical Ventilator 08/19/19 20:00 98.6 87 20 127/58 (81) 99 08/19/19 20:00 70 08/19/19 19:33 82 20 40 08/19/19 19:00 70 16 127/48 (74) 95 08/19/19 18:00 71 16 124/48 (73) 96 08/19/19 17:29 70 16 40 08/19/19 17:00 73 16 136/53 (80) 96 08/19/19 16:00 99.5 73 16 114/48 (70) 96 08/19/19 16:00 40 08/19/19 16:00 86 08/19/19 16:00 Mechanical Ventilator Mechanical Ventilator 08/19/19 15:13 84 17 40 08/19/19 15:00 86 21 138/53 (81) 99 08/19/19 14:00 74 16 119/45 (69) 97 08/19/19 13:00 75 15 137/50 (79) 98 Height (Feet): 5 Height (Inches): 6.00 Weight (Pounds): 200 HEENT: anicteric Respiratory/Chest: normal breath sounds Cardiovascular: regularly irregular Abdomen: no organomegaly Extremities: no clubbing Laboratory Tests Test 08/20/19 04:00 08/20/19 10:14 White Blood Count 8.5 K/UL (4.8-10.8) Red Blood Count 3.45 M/UL (4.70-6.10) L Hemoglobin 10.9 G/DL (14.2-18.0) L Hematocrit 31.8 % (42.0-52.0) L Mean Corpuscular Volume 92 FL (80-99) Mean Corpuscular Hemoglobin 31.4 PG (27.0-31.0) H Mean Corpuscular Hemoglobin Concent 34.1 G/DL (32.0-36.0) Red Cell Distribution Width 12.6 % (11.6-14.8) Platelet Count 260 K/UL (150-450) Mean Platelet Volume 5.2 FL (6.5-10.1) L Neutrophils (%) (Auto) 83.5 % (45.0-75.0) H Lymphocytes (%) (Auto) 10.3 % (20.0-45.0) L Monocytes (%) (Auto) 6.0 % (1.0-10.0) Eosinophils (%) (Auto) 0.1 % (0.0-3.0) Basophils (%) (Auto) 0.1 % (0.0-2.0) Sodium Level 153 MMOL/L (136-145) H Potassium Level 4.0 MMOL/L (3.5-5.1) Chloride Level 114 MMOL/L (98-107) H Carbon Dioxide Level 32 MMOL/L (21-32) Anion Gap 7 mmol/L (5-15) Blood Urea Nitrogen 56 mg/dL (7-18) H Creatinine 1.1 MG/DL (0.55-1.30) Estimat Glomerular Filtration Rate > 60 mL/min (>60) Glucose Level 188 MG/DL (74-106) H Lactic Acid Level 1.50 mmol/L (0.4-2.0) Uric Acid 4.5 MG/DL (2.6-7.2) Calcium Level 8.8 MG/DL (8.5-10.1) Phosphorus Level 3.2 MG/DL (2.5-4.9) Magnesium Level 2.3 MG/DL (1.8-2.4) Total Bilirubin 0.3 MG/DL (0.2-1.0) Gamma Glutamyl Transpeptidase 27 U/L (5-85) Aspartate Amino Transf (AST/SGOT) 31 U/L (15-37) Alanine Aminotransferase (ALT/SGPT) 36 U/L (12-78) Alkaline Phosphatase 119 U/L (46-116) H Troponin I 0.105 ng/mL (0.000-0.056) C-Reactive Protein, Quantitative 3.9 mg/dL (0.00-0.90) H Pro-B-Type Natriuretic Peptide 3057 pg/mL (0-125) H Total Protein 5.0 G/DL (6.4-8.2) L Albumin 2.2 G/DL (3.4-5.0) L Globulin 2.8 g/dL Albumin/Globulin Ratio 0.8 (1.0-2.7) L Triglycerides Level 76 MG/DL (30-150) Cholesterol Level 84 MG/DL (< 200) LDL Cholesterol 42 mg/dL (<100) HDL Cholesterol 32 MG/DL (40-60) L Cholesterol/HDL Ratio 2.6 (3.3-4.4) L Arterial Blood pH 7.462 (7.350-7.450) Arterial Blood Partial Pressure CO2 43.2 mmHg (35.0-45.0) Arterial Blood Partial Pressure O2 96.8 mmHg (75.0-100.0) Arterial Blood HCO3 30.2 mmol/L (22.0-26.0) H Arterial Blood Oxygen Saturation 97.1 % (95-100) Arterial Blood Base Excess 5.8 (-2-2) H Joe Test Positive Current Medications Medications (Trade) Dose Ordered Sig/Amaris Route PRN Reason Start Time Stop Time Status Last Admin Dose Admin Acetaminophen (Tylenol) 650 mg Q4H PRN NG Mild Pain/Temp > 100.5 08/18/19 09:30 09/15/19 09:29 Albuterol/ Ipratropium (Albuterol/ Ipratropium) 3 ml Q4H PRN HHN Shortness of Breath 08/18/19 10:00 08/21/19 21:59 Amiodarone HCl (Cordarone) 200 mg DAILY NG 08/20/19 09:00 11/18/19 08:59 08/20/19 08:48 Atorvastatin Calcium (Lipitor) 40 mg BEDTIME NG 08/18/19 21:00 09/13/19 20:59 08/19/19 20:48 Chlorhexidine Gluconate (Kamila-Hex 2%) 1 applic DAILY@2000 TOPIC 08/18/19 20:00 09/17/19 19:59 08/19/19 20:46 Clopidogrel Bisulfate (Plavix) 75 mg DAILY NG 08/19/19 09:00 09/13/19 08:59 08/20/19 08:48 Colistimethate Sodium (Colistin *inhalation use only*) 75 mg Q12HR@10,22 INH 08/18/19 10:00 08/22/19 21:59 08/20/19 10:15 Dextrose 1,000 ml @ 75 mls/hr [id number] IV 08/20/19 08:08 09/19/19 08:07 08/20/19 08:47 Heparin Sodium (Porcine) (Heparin 5000 units/ml) 5,000 units EVERY 12 HOURS SUBQ 08/18/19 21:00 08/20/19 20:59 08/20/19 08:49 Hydralazine HCl (Apresoline) 10 mg Q6H PRN IV For High Blood Pressure 08/18/19 10:00 09/15/19 21:59 Hydrocortisone (Solu-CORTEF) 100 mg EVERY 8 HOURS IV 08/18/19 14:00 09/17/19 13:59 08/20/19 06:11 Meropenem 1 gm/ Sodium Chloride 55 ml @ 110 mls/hr Q8H IVPB 08/20/19 09:00 08/22/19 08:59 08/20/19 08:48 Olanzapine (ZyPREXA Zydis) 5 mg DAILY NG 08/19/19 09:00 09/29/19 11:59 08/20/19 08:48 Spironolactone (Aldactone) 25 mg DAILY ORAL 08/20/19 09:00 09/19/19 08:59 08/20/19 08:48 Angel Rudolph MD Aug 20, 2019 12:46
[2019-08-20] MEDS ORDERED: NS 275ml ONE (12:48)
[2019-08-20] MEDS ORDERED: Sterile Water Irrig 1000ml IRRIG ONE (12:48)
--- NOTE | 2019-08-20 12:54 | Surgery Progress Note ---
Surgery Progress Note Subjective Procedure Performed Right femoral triple-lumen central venous catheter insertion Additional Comments tolerating tube feeds on vent support min responsive off pressors ivf Objective Last 24 Hour Vital Signs Date Time Temp Pulse Resp B/P (MAP) Pulse Ox O2 Delivery O2 Flow Rate FiO2 08/20/19 12:00 62 08/20/19 12:00 98.4 65 16 142/65 (90) 99 08/20/19 12:00 40 08/20/19 12:00 Mechanical Ventilator Mechanical Ventilator 08/20/19 11:00 62 16 132/61 (84) 100 08/20/19 10:53 60 16 100 Mechanical Ventilator 40 65 16 08/20/19 10:00 70 18 147/57 (87) 97 08/20/19 09:25 69 16 40 08/20/19 09:00 71 14 133/55 (81) 98 08/20/19 08:00 72 08/20/19 08:00 98.5 75 16 138/53 (81) 97 08/20/19 08:00 40 08/20/19 08:00 Mechanical Ventilator Mechanical Ventilator 08/20/19 07:30 76 18 139/55 (83) 98 08/20/19 07:10 74 16 40 08/20/19 07:00 70 16 146/55 (85) 97 08/20/19 06:00 98.6 71 17 135/58 (83) 97 08/20/19 05:17 74 16 40 08/20/19 05:00 69 16 139/53 (81) 95 08/20/19 04:00 Mechanical Ventilator Mechanical Ventilator 08/20/19 04:00 77 16 133/58 (83) 96 08/20/19 04:00 76 08/20/19 04:00 40 08/20/19 03:13 72 16 40 08/20/19 03:00 73 21 128/54 (78) 96 08/20/19 02:00 75 13 135/51 (79) 94 08/20/19 01:17 86 16 40 08/20/19 01:00 83 14 127/51 (76) 94 08/20/19 00:00 98.4 86 16 130/56 (80) 96 08/20/19 00:00 40 08/20/19 00:00 85 08/20/19 00:00 Mechanical Ventilator Mechanical Ventilator 08/19/19 23:00 85 17 142/53 (82) 100 08/19/19 22:45 84 18 40 08/19/19 22:00 68 16 120/48 (72) 99 08/19/19 22:00 73 16 134/47 (76) 97 08/19/19 21:25 78 17 99 Mechanical Ventilator 40 78 18 40 08/19/19 21:00 73 16 134/47 (76) 97 08/19/19 20:00 40 08/19/19 20:00 Mechanical Ventilator Mechanical Ventilator 08/19/19 20:00 98.6 87 20 127/58 (81) 99 08/19/19 20:00 70 08/19/19 19:33 82 20 40 08/19/19 19:00 70 16 127/48 (74) 95 08/19/19 18:00 71 16 124/48 (73) 96 08/19/19 17:29 70 16 40 08/19/19 17:00 73 16 136/53 (80) 96 08/19/19 16:00 99.5 73 16 114/48 (70) 96 08/19/19 16:00 40 08/19/19 16:00 86 08/19/19 16:00 Mechanical Ventilator Mechanical Ventilator 08/19/19 15:13 84 17 40 08/19/19 15:00 86 21 138/53 (81) 99 08/19/19 14:00 74 16 119/45 (69) 97 08/19/19 13:00 75 15 137/50 (79) 98 I&O Intake and Output 08/19/19 08/20/19 19:00 07:00 Intake Total 920.0 ml 1030 ml Output Total 255 ml 345 ml Balance 665.0 ml 685 ml Free Water 50 ml 20 ml IV Total 630.0 ml 455 ml Tube Feeding 240 ml 465 ml Blood Product 90 ml Output Urine Total 255 ml 345 ml # Bowel Movements 1 Dressing: other Wound: other Drains: other Cardiovascular: RSR Respiratory: decreased breath sounds Abdomen: soft, non-tender, present bowel sounds Extremities: no tenderness, no cyanosis, other Laboratory Tests Test 08/20/19 04:00 08/20/19 10:14 White Blood Count 8.5 K/UL (4.8-10.8) Red Blood Count 3.45 M/UL (4.70-6.10) L Hemoglobin 10.9 G/DL (14.2-18.0) L Hematocrit 31.8 % (42.0-52.0) L Mean Corpuscular Volume 92 FL (80-99) Mean Corpuscular Hemoglobin 31.4 PG (27.0-31.0) H Mean Corpuscular Hemoglobin Concent 34.1 G/DL (32.0-36.0) Red Cell Distribution Width 12.6 % (11.6-14.8) Platelet Count 260 K/UL (150-450) Mean Platelet Volume 5.2 FL (6.5-10.1) L Neutrophils (%) (Auto) 83.5 % (45.0-75.0) H Lymphocytes (%) (Auto) 10.3 % (20.0-45.0) L Monocytes (%) (Auto) 6.0 % (1.0-10.0) Eosinophils (%) (Auto) 0.1 % (0.0-3.0) Basophils (%) (Auto) 0.1 % (0.0-2.0) Sodium Level 153 MMOL/L (136-145) H Potassium Level 4.0 MMOL/L (3.5-5.1) Chloride Level 114 MMOL/L (98-107) H Carbon Dioxide Level 32 MMOL/L (21-32) Anion Gap 7 mmol/L (5-15) Blood Urea Nitrogen 56 mg/dL (7-18) H Creatinine 1.1 MG/DL (0.55-1.30) Estimat Glomerular Filtration Rate > 60 mL/min (>60) Glucose Level 188 MG/DL (74-106) H Lactic Acid Level 1.50 mmol/L (0.4-2.0) Uric Acid 4.5 MG/DL (2.6-7.2) Calcium Level 8.8 MG/DL (8.5-10.1) Phosphorus Level 3.2 MG/DL (2.5-4.9) Magnesium Level 2.3 MG/DL (1.8-2.4) Total Bilirubin 0.3 MG/DL (0.2-1.0) Gamma Glutamyl Transpeptidase 27 U/L (5-85) Aspartate Amino Transf (AST/SGOT) 31 U/L (15-37) Alanine Aminotransferase (ALT/SGPT) 36 U/L (12-78) Alkaline Phosphatase 119 U/L (46-116) H Troponin I 0.105 ng/mL (0.000-0.056) C-Reactive Protein, Quantitative 3.9 mg/dL (0.00-0.90) H Pro-B-Type Natriuretic Peptide 3057 pg/mL (0-125) H Total Protein 5.0 G/DL (6.4-8.2) L Albumin 2.2 G/DL (3.4-5.0) L Globulin 2.8 g/dL Albumin/Globulin Ratio 0.8 (1.0-2.7) L Triglycerides Level 76 MG/DL (30-150) Cholesterol Level 84 MG/DL (< 200) LDL Cholesterol 42 mg/dL (<100) HDL Cholesterol 32 MG/DL (40-60) L Cholesterol/HDL Ratio 2.6 (3.3-4.4) L Arterial Blood pH 7.462 (7.350-7.450) Arterial Blood Partial Pressure CO2 43.2 mmHg (35.0-45.0) Arterial Blood Partial Pressure O2 96.8 mmHg (75.0-100.0) Arterial Blood HCO3 30.2 mmol/L (22.0-26.0) H Arterial Blood Oxygen Saturation 97.1 % (95-100) Arterial Blood Base Excess 5.8 (-2-2) H Joe Test Positive Plan Problems: (1) Nosocomial pneumonia (2) AUREA (acute kidney injury) (3) Cardiomyopathy (4) Obesity (BMI 30.0-34.9) (5) DMII (diabetes mellitus, type 2) (6) Cardiac LV ejection fraction 40% (7) Pulmonary edema (8) Cardiopulmonary arrest Assessment & Plan: Cardiopulmonary arrest septic requiring urgent emergency line placement for pressors and fluids and meds Please see procedure report Full examination performed no other surgical issues found at this time etiology unknown likely surgical in nature Antibiotics fluids Pressors Vent off pressors line okay labs reviewed cont tube feeds wean ivf leave line obtain peripheral and will plan d/c line soon (9) Respiratory failure (10) History of hypertension (11) COPD (chronic obstructive pulmonary disease) (12) CAD (coronary artery disease) (13) Atrial fibrillation (14) Dementia with behavioral disturbance (15) Upper respiratory infection (16) Acute respiratory failure (17) Dyspnea (18) UTI (urinary tract infection) Prosper Hummel Aug 20, 2019 12:54
--- NOTE | 2019-08-20 13:02 | Nephrology Progress Note ---
Assessment/Plan Problem List: (1) AUREA (acute kidney injury) Assessment: Serum creatinine rising (2) Cardiopulmonary arrest (3) Respiratory failure (4) Cardiomyopathy (5) Obesity (BMI 30.0-34.9) (6) DMII (diabetes mellitus, type 2) Assessment Acute Renal Failure : AUREA Most likely due to cardiorespiratory arrest and episode of hypotension. Patient also has cardiomyopathy with Ej Fx of 40 % on admission Obese : BMI 34.4 ? DM Other Dx (1) Cardiopulmonary arrest (2) Nosocomial pneumonia (3) Acute respiratory failure (4) COPD (chronic obstructive pulmonary disease) (5) Atrial fibrillation (6) Dementia with behavioral disturbance (7) CAD (coronary artery disease) Plan Pressors are off now patient's condition somewhat more stable In ICU He is intubated ventilator His blood pressure is more stable Overall he is still doing poorly Adjust blood pressure medications Stress dose of steroids which we will start tapering today Previously Monitor renal parameters. Serum creatinine improved Monitor urine output. Urine output improved. Avoid nephrotoxics. Weaning as possible. Remains intubated at this time. Correct electrolyte imbalances. Change tube feeding to Glucerna. Subjective ROS Limited/Unobtainable: Yes Objective Objective Last 24 Hour Vital Signs Date Time Temp Pulse Resp B/P (MAP) Pulse Ox O2 Delivery O2 Flow Rate FiO2 08/20/19 12:00 62 08/20/19 12:00 98.4 65 16 142/65 (90) 99 08/20/19 12:00 40 08/20/19 12:00 Mechanical Ventilator Mechanical Ventilator 08/20/19 11:00 62 16 132/61 (84) 100 08/20/19 10:53 60 16 100 Mechanical Ventilator 40 65 16 08/20/19 10:00 70 18 147/57 (87) 97 08/20/19 09:25 69 16 40 08/20/19 09:00 71 14 133/55 (81) 98 08/20/19 08:00 72 08/20/19 08:00 98.5 75 16 138/53 (81) 97 08/20/19 08:00 40 08/20/19 08:00 Mechanical Ventilator Mechanical Ventilator 08/20/19 07:30 76 18 139/55 (83) 98 08/20/19 07:10 74 16 40 08/20/19 07:00 70 16 146/55 (85) 97 08/20/19 06:00 98.6 71 17 135/58 (83) 97 08/20/19 05:17 74 16 40 08/20/19 05:00 69 16 139/53 (81) 95 08/20/19 04:00 Mechanical Ventilator Mechanical Ventilator 08/20/19 04:00 77 16 133/58 (83) 96 08/20/19 04:00 76 08/20/19 04:00 40 08/20/19 03:13 72 16 40 08/20/19 03:00 73 21 128/54 (78) 96 08/20/19 02:00 75 13 135/51 (79) 94 08/20/19 01:17 86 16 40 08/20/19 01:00 83 14 127/51 (76) 94 08/20/19 00:00 98.4 86 16 130/56 (80) 96 08/20/19 00:00 40 08/20/19 00:00 85 08/20/19 00:00 Mechanical Ventilator Mechanical Ventilator 08/19/19 23:00 85 17 142/53 (82) 100 08/19/19 22:45 84 18 40 08/19/19 22:00 68 16 120/48 (72) 99 08/19/19 22:00 73 16 134/47 (76) 97 08/19/19 21:25 78 17 99 Mechanical Ventilator 40 78 18 40 08/19/19 21:00 73 16 134/47 (76) 97 08/19/19 20:00 40 08/19/19 20:00 Mechanical Ventilator Mechanical Ventilator 08/19/19 20:00 98.6 87 20 127/58 (81) 99 08/19/19 20:00 70 08/19/19 19:33 82 20 40 08/19/19 19:00 70 16 127/48 (74) 95 08/19/19 18:00 71 16 124/48 (73) 96 08/19/19 17:29 70 16 40 08/19/19 17:00 73 16 136/53 (80) 96 08/19/19 16:00 99.5 73 16 114/48 (70) 96 08/19/19 16:00 40 08/19/19 16:00 86 08/19/19 16:00 Mechanical Ventilator Mechanical Ventilator 08/19/19 15:13 84 17 40 08/19/19 15:00 86 21 138/53 (81) 99 08/19/19 14:00 74 16 119/45 (69) 97 Intake and Output 08/19/19 08/20/19 19:00 07:00 Intake Total 920.0 ml 1030 ml Output Total 255 ml 345 ml Balance 665.0 ml 685 ml Free Water 50 ml 20 ml IV Total 630.0 ml 455 ml Tube Feeding 240 ml 465 ml Blood Product 90 ml Output Urine Total 255 ml 345 ml # Bowel Movements 1 Laboratory Tests 08/20/19 04:00: White Blood Count 8.5, Red Blood Count 3.45L, Hemoglobin 10.9L, Hematocrit 31.8L , Mean Corpuscular Volume 92, Mean Corpuscular Hemoglobin 31.4H, Mean Corpuscular Hemoglobin Concent 34.1, Red Cell Distribution Width 12.6, Platelet Count 260, Mean Platelet Volume 5.2L, Neutrophils (%) (Auto) 83.5H, Lymphocytes (%) (Auto) 10.3L, Monocytes (%) (Auto) 6.0, Eosinophils (%) (Auto) 0.1, Basophils (%) (Auto) 0.1, Sodium Level 153H, Potassium Level 4.0, Chloride Level 114H, Carbon Dioxide Level 32, Anion Gap 7, Blood Urea Nitrogen 56H, Creatinine 1.1, Estimat Glomerular Filtration Rate > 60, Glucose Level 188H, Lactic Acid Level 1.50, Uric Acid 4.5, Calcium Level 8.8, Phosphorus Level 3.2, Magnesium Level 2.3, Total Bilirubin 0.3, Gamma Glutamyl Transpeptidase 27, Aspartate Amino Transf (AST/SGOT) 31, Alanine Aminotransferase (ALT/SGPT) 36, Alkaline Phosphatase 119H, Troponin I 0.105H, C-Reactive Protein, Quantitative 3.9H, Pro-B-Type Natriuretic Peptide 3057H, Total Protein 5.0L, Albumin 2.2L, Globulin 2.8, Albumin/Globulin Ratio 0.8L, Triglycerides Level 76, Cholesterol Level 84, LDL Cholesterol 42, HDL Cholesterol 32L, Cholesterol/HDL Ratio 2.6L 08/20/19 10:14: Arterial Blood pH 7.462H, Arterial Blood Partial Pressure CO2 43.2, Arterial Blood Partial Pressure O2 96.8, Arterial Blood HCO3 30.2H, Arterial Blood Oxygen Saturation 97.1, Arterial Blood Base Excess 5.8H, Joe Test Positive Height (Feet): 5 Height (Inches): 6.00 Weight (Pounds): 200 General Appearance: no apparent distress EENT: other - Remains intubated Cardiovascular: normal rate Respiratory/Chest: decreased breath sounds Abdomen: distended Objective no change Yunior Sexton MD Aug 20, 2019 13:02
--- NOTE | 2019-08-20 15:10 | Diagnostic Imaging Report ---
Indication: Dyspnea Comparison: 08/19/2019 A single view chest radiograph was obtained. Findings: Interstitial edema demonstrated with cardiomegaly. Endotracheal tube is in good position. There is an apparent NG tube projected over the upper esophagus. Correlate clinically. This should be removed if the tube is in the esophagus. IMPRESSION: CHF. Query position of the nasogastric tube which is projected over the upper part of the chest.
[2019-08-20] MEDS: Atorvastatin 20mg tab NG SCH (21:08)
[2019-08-20] MEDS: Dyna-Hex 2% Top Sol 2oz TOPIC SCH (21:08)
[2019-08-21] VITALS (24 sets, daily range): BP systolic 123–163; BP diastolic 47–67
--- NOTE | 2019-08-21 | Progress Note ---
DATE: 08/20/2019 SUBJECTIVE: The patient is having waxing and waning consciousness. The patient is on bilateral soft restraints. Continues to have episodes of agitation. MENTAL STATUS EXAMINATION: The patient opens eyes with verbal stimuli and cooperative. Mood is less anxious. Affect is flat. Thought process is unable to assess. Cognition is impaired. ASSESSMENT: 1. Acute encephalopathy. 2. Agitation. PLAN: 1. Olanzapine 5 mg by mouth at bedtime. 2. Continue to follow and readjust the medications. Duarte Vizcarra M.D. DR: SILVIANO JOB#: [id number] CC: IMANI
[2019-08-21] MEDS: Meropenem 1 GM in NS 55 ML IVPB SCH ×2 (00:52→09:33)
--- NOTE | 2019-08-21 01:15 | Progress Note ---
DATE: 08/20/2019 SUBJECTIVE: The patient is afebrile and hemodynamically stable; however, his respiratory rate is 20 to 30. PHYSICAL EXAMINATION: VITAL SIGNS: Blood pressure 141/55, his pulse is 72, respirations of 20, temperature is 98.6. HEENT: Eyes were normal. ENT, mucous membranes were moist and intact. NECK: Supple with JVD, 4 to 5 cm at 30 degrees. LUNGS: Clear in upper lobes with bilateral rhonchi in both bases. HEART: Normal sounds with irregular beats. There is no tachycardia at rest. ABDOMEN: Soft, obese, and nontender with normal bowel sounds. EXTREMITIES: Warm without cyanosis, clubbing, or edema. LABORATORY AND DIAGNOSTIC DATA: His hemoglobin is 10.9, hematocrit 31.8 with MCV of 92, WBC of 8.5, and platelets are 260,000. BUN and creatinine are 56 and 1.1 respectively. His sodium is 153, potassium 4.0, chloride 114, CO2 is 32. His troponin is low at 0.105. His ProBNP declined only by 10% from 3383 to 1757. His chest x-ray show cardiomegaly and interstitial edema. His endotracheal tube and NG tube were in good position. The patient is still intubated and tachypneic. He is doing well on vent. His ABG is acceptable. His pH was 7.46, pCO2 43, pO2 196.8, bicarb is 30, and O2 saturation is 92%. IMPRESSION AND PLAN: The patient has respiratory failure congestive heart failure. We will need to fix his congestive heart failure prior to extubation. Currently, the patient is on spironolactone and other medications and improved heart function. The case will be discussed with the fruit loader machine operator. Repeat laboratory tests will be done in the a.m. Modesta Mulligan M.D. DR: ELIS JOB#: [id number] CC:
--- NOTE | 2019-08-21 03:00 | Progress Note ---
DATE: 08/20/2019 CARDIOLOGY PROGRESS NOTE SUBJECTIVE: The patient remains on ventilator support. ICU logs reviewed. Discussed with ICU staff. Monitored rhythm, sinus with paroxysms of atrial fibrillation and bundle-branch block. OBJECTIVE: VITAL SIGNS: Blood pressure 142/65, pulse 66, and respiratory rate 18. LUNGS: Thin secretions. Coarse breath sounds. Rhonchi. CARDIAC: Regular rhythm and rate. Normal S1, paradoxically split S2. ABDOMEN: Soft. EXTREMITIES: She has trace edema. IMAGING DATA: Chest x-ray reveals congestive heart failure. LABORATORY DATA: White count 8.5 and hemoglobin 10.9. ABG, 7.46, 43, and 97. Lactic acid is normal. Sodium 153, potassium 4, bicarb 32, BUN 56, and creatinine 1.1. Pro-natriuretic peptide 3000. IMPRESSION: 1. Remains critically ill. 2. Status post respiratory arrest. 3. Prior cardiopulmonary arrest. 4. Acute myocardial infarction. 5. Acute on chronic systolic and diastolic congestive heart failure. 6. Dehydration. 7. Hyponatremia. 8. Prerenal azotemia. 9. Severe protein-calorie malnutrition. 10. Acute on chronic respiratory acidosis, recovering. 11. Paroxysmal atrial fibrillation. PLAN: 1. ICU care. 2. Central venous access. 3. Limited use of anxiolytics. 4. Steroids with the stress dose steroids. 5. Free water replacement. 6. Amiodarone for arrhythmia suppression. 7. Hold diuresis for now. Saeed Sim M.D. DR: SELENA JOB#: [id number] CC:
[2019-08-21 05:13] LABS: BASOPHILS % (AUTO) 0.2 % (0.0-2.0); EOSINOPHILS % (AUTO) 0.5 % (0.0-3.0); HEMATOCRIT 30.5 % (42.0-52.0); HEMOGLOBIN 10.3 G/DL (14.2-18.0); LYMPHOCYTES % (AUTO) 10.6 % (20.0-45.0); MEAN CORPUSCULAR VOLUME 93 FL (80-99); MONOCYTES % (AUTO) 5.1 % (1.0-10.0); NEUTROPHILS % (AUTO) 83.5 % (45.0-75.0); PLATELET COUNT 260 K/UL (150-450); RED CELL DISTRIBUTION WIDTH 12.6 % (11.6-14.8); WHITE BLOOD COUNT 6.5 K/UL (4.8-10.8)
[2019-08-21] MEDS: Hydrocortisone 100mg Inj IV SCH ×3 (05:16→21:09)
[2019-08-21 06:05] LABS: ALANINE AMINOTRANSFERASE 40 U/L (12-78); ALBUMIN/GLOBULIN RATIO 0.7 (1.0-2.7); ALKALINE PHOSPHATASE 111 U/L (46-116); ANION GAP 5 mmol/L (5-15); ASPARTATE AMINO TRANSFERASE 26 U/L (15-37); BILIRUBIN,TOTAL 0.3 MG/DL (0.2-1.0); BLOOD UREA NITROGEN 46 mg/dL (7-18); CALCIUM 8.2 MG/DL (8.5-10.1); CARBON DIOXIDE 33 MMOL/L (21-32); CHLORIDE 112 MMOL/L (98-107); CREATININE 0.9 MG/DL (0.55-1.30); POTASSIUM 4.2 MMOL/L (3.5-5.1); SODIUM 150 MMOL/L (136-145)
[2019-08-21] MEDS: Pantoprazole Inj IVP SCH ×2 (09:30→20:41)
[2019-08-21] MEDS: Spironolactone 25mg tab ORAL SCH (09:30)
[2019-08-21] MEDS: Amiodarone 200mg tab NG SCH (09:30)
[2019-08-21] MEDS: Heparin 5000 units/ml inj SUBQ SCH ×2 (09:33→20:42)
--- NOTE | 2019-08-21 10:09 | Pulmonolgy Critical Care Note ---
Critical Care - Asmt/Plan Problems: (1) Acute respiratory failure (2) Cardiopulmonary arrest (3) Cardiac LV ejection fraction 40% (4) Nosocomial pneumonia (5) Atrial fibrillation Assessment & Plan: controlled (6) Pulmonary edema (7) COPD (chronic obstructive pulmonary disease) (8) CAD (coronary artery disease) (9) Dementia with behavioral disturbance Respiratory: monitor respiratory rate, adjust FIO2, CXR Cardiac: continue to monitor HR/BP Renal: F/U I&O, check electrolytes Infectious Disease: check cultures, continue antibiotics Gastrointestinal: continue feedings/current rate Endocrine: monitor blood sugar Hematologic: monitor H/H, transfuse if hgb<8.5 Neurologic: PRN Ativan, keep patient comfortable Prophylaxis: Protonix, Heparin Time Spent (Minutes): 40 Notes 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, 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, 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 Discussed with: nurses, consultants, 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 crisis - Objective Last 24 Hour Vital Signs Date Time Temp Pulse Resp B/P (MAP) Pulse Ox O2 Delivery O2 Flow Rate FiO2 08/21/19 08:32 73 18 40 08/21/19 07:30 72 18 40 08/21/19 07:00 76 19 163/64 (97) 98 08/21/19 06:00 64 15 142/51 (81) 97 08/21/19 05:00 74 18 153/56 (88) 99 08/21/19 04:44 79 18 40 08/21/19 04:00 Mechanical Ventilator Mechanical Ventilator 08/21/19 04:00 99.2 72 18 160/64 (96) 99 08/21/19 04:00 40 08/21/19 03:15 67 08/21/19 03:00 62 16 138/57 (84) 97 08/21/19 02:31 72 16 40 08/21/19 02:00 70 17 148/67 (94) 97 08/21/19 01:00 66 16 148/55 (86) 97 08/21/19 00:43 77 17 40 08/21/19 00:00 Mechanical Ventilator Mechanical Ventilator 08/21/19 00:00 98.4 65 16 136/66 (89) 97 08/20/19 23:03 79 08/20/19 23:00 79 21 156/64 (94) 98 08/20/19 22:40 68 16 40 08/20/19 22:00 64 16 140/52 (81) 97 08/20/19 21:00 68 21 135/55 (81) 99 08/20/19 20:55 70 18 100 Mechanical Ventilator 40 71 18 08/20/19 20:00 40 08/20/19 20:00 Mechanical Ventilator Mechanical Ventilator 08/20/19 20:00 98.5 70 16 140/59 (86) 99 08/20/19 19:29 66 08/20/19 19:11 71 16 40 08/20/19 19:00 72 16 141/55 (83) 97 08/20/19 18:00 74 16 149/53 (85) 97 08/20/19 17:05 65 16 40 08/20/19 17:00 73 12 135/51 (79) 99 08/20/19 16:00 Mechanical Ventilator Mechanical Ventilator 08/20/19 16:00 66 08/20/19 16:00 40 08/20/19 16:00 98.6 66 25 127/53 (77) 97 08/20/19 15:02 64 16 40 08/20/19 15:00 68 10 154/53 (86) 99 08/20/19 14:00 63 16 151/45 (80) 98 08/20/19 13:05 62 16 40 08/20/19 13:00 67 15 126/68 (87) 97 08/20/19 12:00 62 08/20/19 12:00 98.4 65 16 142/65 (90) 99 08/20/19 12:00 40 08/20/19 12:00 Mechanical Ventilator Mechanical Ventilator 08/20/19 11:00 62 16 132/61 (84) 100 08/20/19 10:53 60 16 100 Mechanical Ventilator 40 65 16 Status: sedated Condition: critical Neck: full ROM Heart: HR/BP stable Abdomen: soft Extremities: no C/C/E Accucheck: 153 Critical Care - Subjective ROS Limited/Unobtainable: No Condition: critical EKG Rhythm: Sinus Rhythm FI02: 40 Vent Support Breath Rate: 16 Vent Support Mode: AC Vent Tidal Volume: 600 Sputum Amount: Small PEEP: 5.0 PIP: 39 Tube Feeding Amount: 55 I&O: Intake and Output 08/20/19 08/21/19 19:00 07:00 Intake Total 1561.25 ml 1665 ml Output Total 510 ml 705 ml Balance 1051.25 ml 960 ml Free Water 50 ml IV Total 1016.25 ml 945 ml Tube Feeding 495 ml 660 ml Other 60 ml Output Urine Total 510 ml 705 ml # Bowel Movements 1 2 CXR: ET in good position, bibasilar edema and congestion ET-Tube: 8.0 ET Position: 26 Labs: Laboratory Tests Test 08/20/19 10:14 08/21/19 04:00 Arterial Blood pH 7.462 (7.350-7.450) Arterial Blood Partial Pressure CO2 43.2 mmHg (35.0-45.0) Arterial Blood Partial Pressure O2 96.8 mmHg (75.0-100.0) Arterial Blood HCO3 30.2 mmol/L (22.0-26.0) H Arterial Blood Oxygen Saturation 97.1 % (95-100) Arterial Blood Base Excess 5.8 (-2-2) H Joe Test Positive White Blood Count 6.5 K/UL (4.8-10.8) Red Blood Count 3.30 M/UL (4.70-6.10) L Hemoglobin 10.3 G/DL (14.2-18.0) L Hematocrit 30.5 % (42.0-52.0) L Mean Corpuscular Volume 93 FL (80-99) Mean Corpuscular Hemoglobin 31.2 PG (27.0-31.0) H Mean Corpuscular Hemoglobin Concent 33.6 G/DL (32.0-36.0) Red Cell Distribution Width 12.6 % (11.6-14.8) Platelet Count 260 K/UL (150-450) Mean Platelet Volume 5.2 FL (6.5-10.1) L Neutrophils (%) (Auto) 83.5 % (45.0-75.0) H Lymphocytes (%) (Auto) 10.6 % (20.0-45.0) L Monocytes (%) (Auto) 5.1 % (1.0-10.0) Eosinophils (%) (Auto) 0.5 % (0.0-3.0) Basophils (%) (Auto) 0.2 % (0.0-2.0) Sodium Level 150 MMOL/L (136-145) H Potassium Level 4.2 MMOL/L (3.5-5.1) Chloride Level 112 MMOL/L (98-107) H Carbon Dioxide Level 33 MMOL/L (21-32) H Anion Gap 5 mmol/L (5-15) Blood Urea Nitrogen 46 mg/dL (7-18) H Creatinine 0.9 MG/DL (0.55-1.30) Estimat Glomerular Filtration Rate > 60 mL/min (>60) Glucose Level 196 MG/DL (74-106) H Calcium Level 8.2 MG/DL (8.5-10.1) L Total Bilirubin 0.3 MG/DL (0.2-1.0) Aspartate Amino Transf (AST/SGOT) 26 U/L (15-37) Alanine Aminotransferase (ALT/SGPT) 40 U/L (12-78) Alkaline Phosphatase 111 U/L (46-116) Pro-B-Type Natriuretic Peptide 4206 pg/mL (0-125) H Total Protein 4.7 G/DL (6.4-8.2) L Albumin 2.0 G/DL (3.4-5.0) L Globulin 2.7 g/dL Albumin/Globulin Ratio 0.7 (1.0-2.7) L Nicole Graves MD Aug 21, 2019 10:09
[2019-08-21] MEDS: Colistin for inhalation INH SCH ×2 (10:44→22:59)
--- NOTE | 2019-08-21 10:47 | Surgery Progress Note ---
Surgery Progress Note Subjective Procedure Performed Right femoral triple-lumen central venous catheter insertion Additional Comments ill appearing on vent support responsive to verbal stimulus. opens eyes tolerating tube feeds Objective Last 24 Hour Vital Signs Date Time Temp Pulse Resp B/P (MAP) Pulse Ox O2 Delivery O2 Flow Rate FiO2 08/21/19 08:32 73 18 40 08/21/19 07:30 72 18 40 08/21/19 07:00 76 19 163/64 (97) 98 08/21/19 06:00 64 15 142/51 (81) 97 08/21/19 05:00 74 18 153/56 (88) 99 08/21/19 04:44 79 18 40 08/21/19 04:00 Mechanical Ventilator Mechanical Ventilator 08/21/19 04:00 99.2 72 18 160/64 (96) 99 08/21/19 04:00 40 08/21/19 03:15 67 08/21/19 03:00 62 16 138/57 (84) 97 08/21/19 02:31 72 16 40 08/21/19 02:00 70 17 148/67 (94) 97 08/21/19 01:00 66 16 148/55 (86) 97 08/21/19 00:43 77 17 40 08/21/19 00:00 Mechanical Ventilator Mechanical Ventilator 08/21/19 00:00 98.4 65 16 136/66 (89) 97 08/20/19 23:03 79 08/20/19 23:00 79 21 156/64 (94) 98 08/20/19 22:40 68 16 40 08/20/19 22:00 64 16 140/52 (81) 97 08/20/19 21:00 68 21 135/55 (81) 99 08/20/19 20:55 70 18 100 Mechanical Ventilator 40 71 18 08/20/19 20:00 40 08/20/19 20:00 Mechanical Ventilator Mechanical Ventilator 08/20/19 20:00 98.5 70 16 140/59 (86) 99 08/20/19 19:29 66 08/20/19 19:11 71 16 40 08/20/19 19:00 72 16 141/55 (83) 97 08/20/19 18:00 74 16 149/53 (85) 97 08/20/19 17:05 65 16 40 08/20/19 17:00 73 12 135/51 (79) 99 08/20/19 16:00 Mechanical Ventilator Mechanical Ventilator 08/20/19 16:00 66 08/20/19 16:00 40 08/20/19 16:00 98.6 66 25 127/53 (77) 97 08/20/19 15:02 64 16 40 08/20/19 15:00 68 10 154/53 (86) 99 08/20/19 14:00 63 16 151/45 (80) 98 08/20/19 13:05 62 16 40 08/20/19 13:00 67 15 126/68 (87) 97 08/20/19 12:00 62 08/20/19 12:00 98.4 65 16 142/65 (90) 99 08/20/19 12:00 40 08/20/19 12:00 Mechanical Ventilator Mechanical Ventilator 08/20/19 11:00 62 16 132/61 (84) 100 08/20/19 10:53 60 16 100 Mechanical Ventilator 40 65 16 I&O Intake and Output 08/20/19 08/21/19 19:00 07:00 Intake Total 1561.25 ml 1665 ml Output Total 510 ml 705 ml Balance 1051.25 ml 960 ml Free Water 50 ml IV Total 1016.25 ml 945 ml Tube Feeding 495 ml 660 ml Other 60 ml Output Urine Total 510 ml 705 ml # Bowel Movements 1 2 Dressing: other Wound: other Drains: other Cardiovascular: RSR Respiratory: decreased breath sounds Abdomen: soft, present bowel sounds, non-distended Extremities: no tenderness, no cyanosis, other Laboratory Tests Test 08/21/19 04:00 White Blood Count 6.5 K/UL (4.8-10.8) Red Blood Count 3.30 M/UL (4.70-6.10) L Hemoglobin 10.3 G/DL (14.2-18.0) L Hematocrit 30.5 % (42.0-52.0) L Mean Corpuscular Volume 93 FL (80-99) Mean Corpuscular Hemoglobin 31.2 PG (27.0-31.0) H Mean Corpuscular Hemoglobin Concent 33.6 G/DL (32.0-36.0) Red Cell Distribution Width 12.6 % (11.6-14.8) Platelet Count 260 K/UL (150-450) Mean Platelet Volume 5.2 FL (6.5-10.1) L Neutrophils (%) (Auto) 83.5 % (45.0-75.0) H Lymphocytes (%) (Auto) 10.6 % (20.0-45.0) L Monocytes (%) (Auto) 5.1 % (1.0-10.0) Eosinophils (%) (Auto) 0.5 % (0.0-3.0) Basophils (%) (Auto) 0.2 % (0.0-2.0) Sodium Level 150 MMOL/L (136-145) H Potassium Level 4.2 MMOL/L (3.5-5.1) Chloride Level 112 MMOL/L (98-107) H Carbon Dioxide Level 33 MMOL/L (21-32) H Anion Gap 5 mmol/L (5-15) Blood Urea Nitrogen 46 mg/dL (7-18) H Creatinine 0.9 MG/DL (0.55-1.30) Estimat Glomerular Filtration Rate > 60 mL/min (>60) Glucose Level 196 MG/DL (74-106) H Calcium Level 8.2 MG/DL (8.5-10.1) L Total Bilirubin 0.3 MG/DL (0.2-1.0) Aspartate Amino Transf (AST/SGOT) 26 U/L (15-37) Alanine Aminotransferase (ALT/SGPT) 40 U/L (12-78) Alkaline Phosphatase 111 U/L (46-116) Pro-B-Type Natriuretic Peptide 4206 pg/mL (0-125) H Total Protein 4.7 G/DL (6.4-8.2) L Albumin 2.0 G/DL (3.4-5.0) L Globulin 2.7 g/dL Albumin/Globulin Ratio 0.7 (1.0-2.7) L Plan Problems: (1) Nosocomial pneumonia (2) AUREA (acute kidney injury) (3) Cardiomyopathy (4) Obesity (BMI 30.0-34.9) (5) DMII (diabetes mellitus, type 2) (6) Cardiac LV ejection fraction 40% (7) Pulmonary edema (8) Cardiopulmonary arrest Assessment & Plan: Cardiopulmonary arrest septic requiring urgent emergency line placement for pressors and fluids and meds Please see procedure report Full examination performed no other surgical issues found at this time etiology unknown likely surgical in nature Antibiotics fluids Pressors Vent off pressors line okay labs reviewed cont tube feeds wean ivf leave line obtain peripheral and will plan d/c line soon (9) Respiratory failure (10) History of hypertension (11) COPD (chronic obstructive pulmonary disease) (12) CAD (coronary artery disease) (13) Atrial fibrillation (14) Dementia with behavioral disturbance (15) Upper respiratory infection (16) Acute respiratory failure (17) Dyspnea (18) UTI (urinary tract infection) Prosper Hummel Aug 21, 2019 10:47
--- NOTE | 2019-08-21 10:47 | Nephrology Progress Note ---
Assessment/Plan Problem List: (1) AUREA (acute kidney injury) Assessment: Serum creatinine rising (2) Cardiopulmonary arrest (3) Respiratory failure (4) Cardiomyopathy (5) Obesity (BMI 30.0-34.9) (6) DMII (diabetes mellitus, type 2) Assessment Acute Renal Failure : AUREA Most likely due to cardiorespiratory arrest and episode of hypotension. Patient also has cardiomyopathy with Ej Fx of 40 % on admission Obese : BMI 34.4 ? DM Other Dx (1) Cardiopulmonary arrest (2) Nosocomial pneumonia (3) Acute respiratory failure (4) COPD (chronic obstructive pulmonary disease) (5) Atrial fibrillation (6) Dementia with behavioral disturbance (7) CAD (coronary artery disease) Plan On D5 W IV fluids for hypernatremia pressors are off now patient's condition somewhat more stable In ICU He is intubated ventilator His blood pressure is more stable Overall he is still doing poorly Adjust blood pressure medications Stress dose of steroids which we will start tapering today Previously Monitor renal parameters. Serum creatinine improved Monitor urine output. Urine output improved. Avoid nephrotoxics. Weaning as possible. Remains intubated at this time. Correct electrolyte imbalances. Change tube feeding to Glucerna. Subjective ROS Limited/Unobtainable: Yes Objective Objective Last 24 Hour Vital Signs Date Time Temp Pulse Resp B/P (MAP) Pulse Ox O2 Delivery O2 Flow Rate FiO2 08/21/19 08:32 73 18 40 08/21/19 07:30 72 18 40 08/21/19 07:00 76 19 163/64 (97) 98 08/21/19 06:00 64 15 142/51 (81) 97 08/21/19 05:00 74 18 153/56 (88) 99 08/21/19 04:44 79 18 40 08/21/19 04:00 Mechanical Ventilator Mechanical Ventilator 08/21/19 04:00 99.2 72 18 160/64 (96) 99 08/21/19 04:00 40 08/21/19 03:15 67 08/21/19 03:00 62 16 138/57 (84) 97 08/21/19 02:31 72 16 40 08/21/19 02:00 70 17 148/67 (94) 97 08/21/19 01:00 66 16 148/55 (86) 97 08/21/19 00:43 77 17 40 08/21/19 00:00 Mechanical Ventilator Mechanical Ventilator 08/21/19 00:00 98.4 65 16 136/66 (89) 97 08/20/19 23:03 79 08/20/19 23:00 79 21 156/64 (94) 98 08/20/19 22:40 68 16 40 08/20/19 22:00 64 16 140/52 (81) 97 08/20/19 21:00 68 21 135/55 (81) 99 08/20/19 20:55 70 18 100 Mechanical Ventilator 40 71 18 08/20/19 20:00 40 08/20/19 20:00 Mechanical Ventilator Mechanical Ventilator 08/20/19 20:00 98.5 70 16 140/59 (86) 99 08/20/19 19:29 66 08/20/19 19:11 71 16 40 08/20/19 19:00 72 16 141/55 (83) 97 08/20/19 18:00 74 16 149/53 (85) 97 08/20/19 17:05 65 16 40 08/20/19 17:00 73 12 135/51 (79) 99 08/20/19 16:00 Mechanical Ventilator Mechanical Ventilator 08/20/19 16:00 66 08/20/19 16:00 40 08/20/19 16:00 98.6 66 25 127/53 (77) 97 08/20/19 15:02 64 16 40 08/20/19 15:00 68 10 154/53 (86) 99 08/20/19 14:00 63 16 151/45 (80) 98 08/20/19 13:05 62 16 40 08/20/19 13:00 67 15 126/68 (87) 97 08/20/19 12:00 62 08/20/19 12:00 98.4 65 16 142/65 (90) 99 08/20/19 12:00 40 08/20/19 12:00 Mechanical Ventilator Mechanical Ventilator 08/20/19 11:00 62 16 132/61 (84) 100 08/20/19 10:53 60 16 100 Mechanical Ventilator 40 65 16 Intake and Output 08/20/19 08/21/19 19:00 07:00 Intake Total 1561.25 ml 1665 ml Output Total 510 ml 705 ml Balance 1051.25 ml 960 ml Free Water 50 ml IV Total 1016.25 ml 945 ml Tube Feeding 495 ml 660 ml Other 60 ml Output Urine Total 510 ml 705 ml # Bowel Movements 1 2 Laboratory Tests 08/21/19 04:00: White Blood Count 6.5, Red Blood Count 3.30L, Hemoglobin 10.3L, Hematocrit 30.5L , Mean Corpuscular Volume 93, Mean Corpuscular Hemoglobin 31.2H, Mean Corpuscular Hemoglobin Concent 33.6, Red Cell Distribution Width 12.6, Platelet Count 260, Mean Platelet Volume 5.2L, Neutrophils (%) (Auto) 83.5H, Lymphocytes (%) (Auto) 10.6L, Monocytes (%) (Auto) 5.1, Eosinophils (%) (Auto) 0.5, Basophils (%) (Auto) 0.2, Sodium Level 150H, Potassium Level 4.2, Chloride Level 112H, Carbon Dioxide Level 33H, Anion Gap 5, Blood Urea Nitrogen 46H, Creatinine 0.9, Estimat Glomerular Filtration Rate > 60, Glucose Level 196H, Calcium Level 8.2L, Total Bilirubin 0.3, Aspartate Amino Transf (AST/SGOT) 26, Alanine Aminotransferase (ALT/SGPT) 40, Alkaline Phosphatase 111, Pro-B-Type Natriuretic Peptide 4206H, Total Protein 4.7L, Albumin 2.0L, Globulin 2.7, Albumin/Globulin Ratio 0.7L Height (Feet): 5 Height (Inches): 6.00 Weight (Pounds): 205 General Appearance: no apparent distress EENT: other - On ventilator Cardiovascular: normal rate Respiratory/Chest: decreased breath sounds Abdomen: distended Objective no change Yunior Sexton MD Aug 21, 2019 10:47
--- NOTE | 2019-08-21 14:37 | Infectious Diseases Prog Note ---
Assessment/Plan Assessment/Plan ASSESSMENT: The patient is a 79-year-old male with: Leukocytosis; Sp Fever , sp Sepsis, Sp Pneumonia ( probable asp), Sp RX -08/13 Scx: MDR-ACB (Tygacil LANI: 4) - CXR: 1. Streaky opacities in the right lower lung may represent atelectasis versus scarring. Left basilar opacity may represent atelectasis. Component of pneumonia is not excluded. Pulmonary vasculature congestion. -08/01 ucx NTD - sp cx: nl anastacio Urinary tract infection, SP Rx 08/17 Sp code blue and intubation 07/31 Sp Code blue and intubation , sp extubation 08/12 , Hyperlipidemia. COPD. History of GERD. History of encephalopathy. History of CAD/CO. History of cardiomyopathy. Hypertension. PLAN: C Merrem 03/10- ( will cont as pt fever and WBC improved), cont Colsitn INH (MDR-ACB) #/-14 08/14 SP IV Vanco # 4 3 SP Zosyn and IV Vanco # 12/08 , -08/01 SP Rocephin day # 10 - 07/31 sp sp Dox # 6 Monitor CBC. Monitor BMP. Monitor chest x-ray cont ICU Support Rpt Cx (B,U,S) discussed with RN Subjective Allergies: Coded Allergies: No Known Allergies (Unverified , 06/03/17) Subjective no acute event on vent in ICU Objective Vital Signs Last 24 Hour Vital Signs Date Time Temp Pulse Resp B/P (MAP) Pulse Ox O2 Delivery O2 Flow Rate FiO2 08/21/19 14:00 59 19 125/59 (81) 97 08/21/19 13:00 79 21 150/66 (94) 98 08/21/19 12:40 74 18 40 08/21/19 12:00 Mechanical Ventilator Mechanical Ventilator 08/21/19 12:00 40 08/21/19 12:00 61 16 130/55 (80) 96 08/21/19 11:19 61 08/21/19 11:00 64 16 123/54 (77) 98 08/21/19 10:47 75 16 100 Mechanical Ventilator 40 77 19 08/21/19 10:00 73 18 162/56 (91) 98 08/21/19 09:00 61 16 143/57 (85) 98 08/21/19 08:32 73 18 40 08/21/19 08:00 40 08/21/19 08:00 79 08/21/19 08:00 99.1 62 18 138/55 (82) 96 08/21/19 08:00 Mechanical Ventilator Mechanical Ventilator 08/21/19 07:30 72 18 40 08/21/19 07:00 76 19 163/64 (97) 98 08/21/19 06:00 64 15 142/51 (81) 97 08/21/19 05:00 74 18 153/56 (88) 99 08/21/19 04:44 79 18 40 08/21/19 04:00 Mechanical Ventilator Mechanical Ventilator 08/21/19 04:00 99.2 72 18 160/64 (96) 99 08/21/19 04:00 40 08/21/19 03:15 67 08/21/19 03:00 62 16 138/57 (84) 97 08/21/19 02:31 72 16 40 08/21/19 02:00 70 17 148/67 (94) 97 08/21/19 01:00 66 16 148/55 (86) 97 08/21/19 00:43 77 17 40 08/21/19 00:00 Mechanical Ventilator Mechanical Ventilator 08/21/19 00:00 98.4 65 16 136/66 (89) 97 08/20/19 23:03 79 08/20/19 23:00 79 21 156/64 (94) 98 08/20/19 22:40 68 16 40 08/20/19 22:00 64 16 140/52 (81) 97 08/20/19 21:00 68 21 135/55 (81) 99 08/20/19 20:55 70 18 100 Mechanical Ventilator 40 71 18 08/20/19 20:00 40 08/20/19 20:00 Mechanical Ventilator Mechanical Ventilator 08/20/19 20:00 98.5 70 16 140/59 (86) 99 08/20/19 19:29 66 08/20/19 19:11 71 16 40 08/20/19 19:00 72 16 141/55 (83) 97 08/20/19 18:00 74 16 149/53 (85) 97 08/20/19 17:05 65 16 40 08/20/19 17:00 73 12 135/51 (79) 99 08/20/19 16:00 Mechanical Ventilator Mechanical Ventilator 08/20/19 16:00 66 08/20/19 16:00 40 08/20/19 16:00 98.6 66 25 127/53 (77) 97 08/20/19 15:02 64 16 40 08/20/19 15:00 68 10 154/53 (86) 99 Height (Feet): 5 Height (Inches): 6.00 Weight (Pounds): 205 HEENT: anicteric Respiratory/Chest: normal breath sounds Cardiovascular: normal rate Abdomen: no organomegaly Laboratory Tests Test 08/21/19 04:00 White Blood Count 6.5 K/UL (4.8-10.8) Red Blood Count 3.30 M/UL (4.70-6.10) L Hemoglobin 10.3 G/DL (14.2-18.0) L Hematocrit 30.5 % (42.0-52.0) L Mean Corpuscular Volume 93 FL (80-99) Mean Corpuscular Hemoglobin 31.2 PG (27.0-31.0) H Mean Corpuscular Hemoglobin Concent 33.6 G/DL (32.0-36.0) Red Cell Distribution Width 12.6 % (11.6-14.8) Platelet Count 260 K/UL (150-450) Mean Platelet Volume 5.2 FL (6.5-10.1) L Neutrophils (%) (Auto) 83.5 % (45.0-75.0) H Lymphocytes (%) (Auto) 10.6 % (20.0-45.0) L Monocytes (%) (Auto) 5.1 % (1.0-10.0) Eosinophils (%) (Auto) 0.5 % (0.0-3.0) Basophils (%) (Auto) 0.2 % (0.0-2.0) Sodium Level 150 MMOL/L (136-145) H Potassium Level 4.2 MMOL/L (3.5-5.1) Chloride Level 112 MMOL/L (98-107) H Carbon Dioxide Level 33 MMOL/L (21-32) H Anion Gap 5 mmol/L (5-15) Blood Urea Nitrogen 46 mg/dL (7-18) H Creatinine 0.9 MG/DL (0.55-1.30) Estimat Glomerular Filtration Rate > 60 mL/min (>60) Glucose Level 196 MG/DL (74-106) H Calcium Level 8.2 MG/DL (8.5-10.1) L Total Bilirubin 0.3 MG/DL (0.2-1.0) Aspartate Amino Transf (AST/SGOT) 26 U/L (15-37) Alanine Aminotransferase (ALT/SGPT) 40 U/L (12-78) Alkaline Phosphatase 111 U/L (46-116) Pro-B-Type Natriuretic Peptide 4206 pg/mL (0-125) H Total Protein 4.7 G/DL (6.4-8.2) L Albumin 2.0 G/DL (3.4-5.0) L Globulin 2.7 g/dL Albumin/Globulin Ratio 0.7 (1.0-2.7) L Current Medications Medications (Trade) Dose Ordered Sig/Amaris Route PRN Reason Start Time Stop Time Status Last Admin Dose Admin Acetaminophen (Tylenol) 650 mg Q4H PRN NG Mild Pain/Temp > 100.5 08/18/19 09:30 09/15/19 09:29 Albuterol/ Ipratropium (Albuterol/ Ipratropium) 3 ml Q4H PRN HHN Shortness of Breath 08/18/19 10:00 08/21/19 21:59 Amiodarone HCl (Cordarone) 200 mg DAILY NG 08/20/19 09:00 11/18/19 08:59 08/21/19 09:30 Atorvastatin Calcium (Lipitor) 40 mg BEDTIME NG 08/18/19 21:00 09/13/19 20:59 08/20/19 21:08 Chlorhexidine Gluconate (Kamila-Hex 2%) 1 applic DAILY@1999 TOPIC 08/18/19 20:00 09/17/19 19:59 08/20/19 21:08 Clopidogrel Bisulfate (Plavix) 75 mg DAILY NG 08/19/19 09:00 09/13/19 08:59 08/21/19 09:30 Colistimethate Sodium (Colistin *inhalation use only*) 75 mg Q12HR@10,22 INH 08/18/19 10:00 08/22/19 21:59 08/21/19 10:44 Dextrose 1,000 ml @ 75 mls/hr [id number] IV 08/20/19 08:08 09/19/19 08:07 08/21/19 09:33 Furosemide (Lasix) 40 mg DAILY IV 08/21/19 09:00 09/20/19 08:59 08/21/19 09:30 Heparin Sodium (Porcine) (Heparin 5000 units/ml) 5,000 units EVERY 12 HOURS SUBQ 08/21/19 09:00 10/05/19 08:59 08/21/19 09:33 Hydralazine HCl (Apresoline) 10 mg Q4H PRN IV For High Blood Pressure 08/21/19 10:50 11/19/19 10:49 Hydrocortisone (Solu-CORTEF) 50 mg EVERY 8 HOURS IV 08/20/19 14:00 09/17/19 13:59 08/21/19 05:16 Meropenem 1 gm/ Sodium Chloride 55 ml @ 110 mls/hr Q8H IVPB 08/20/19 09:00 08/22/19 08:59 08/21/19 09:33 Olanzapine (ZyPREXA Zydis) 5 mg BEDTIME NG 08/21/19 21:00 10/05/19 20:59 Pantoprazole (Protonix) 40 mg EVERY 12 HOURS IVP 08/21/19 09:00 09/20/19 08:59 08/21/19 09:30 Spironolactone (Aldactone) 25 mg DAILY ORAL 08/20/19 09:00 09/19/19 08:59 08/21/19 09:30 Angel Rudolph MD Aug 21, 2019 14:37
[2019-08-21] MEDS ORDERED: Sodium Bicarbonate 50ml Carp ONE (14:59)
[2019-08-21] MEDS: Dyna-Hex 2% Top Sol 2oz TOPIC SCH (20:40)
[2019-08-21] MEDS: Atorvastatin 20mg tab NG SCH (20:41)
[2019-08-21] MEDS: ZyPREXA Zydis 5mg tab NG SCH (20:41)
--- NOTE | 2019-08-21 21:45 | Progress Note ---
DATE: 08/21/2019 SUBJECTIVE: The patient is still in ICU. The patient is intubated, NG tube feeding. Because of anxiety and agitation, continues to be on PRNs. MENTAL STATUS EXAMINATION: The patient is alert, restless. Mood is anxious. Affect is flat. Thought process is disorganized. Thought content, no suicidal or homicidal ideation. Cognition is impaired. Insight and judgment impaired. ASSESSMENT: Acute encephalopathy. PLAN: 1. Olanzapine 5 mg at bedtime. 2. Continue to follow and readjust the medications. Duarte Vizcarra M.D. DR: AARTI JOB#: [id number] CC:
[2019-08-22] VITALS (24 sets, daily range): BP systolic 114–156; BP diastolic 46–65
--- NOTE | 2019-08-22 02:30 | Progress Note ---
DATE: 08/21/2019 CARDIOLOGY PROGRESS NOTE SUBJECTIVE: The patient remains on ventilator support. He is status post respiratory arrest that manifested with severe bradycardia several days ago due to acute on chronic respiratory acidosis. Previously, he had a full cardiopulmonary arrest and was eventually weaned off the ventilator. OBJECTIVE: VITAL SIGNS: Blood pressure 163/64, pulse 76, and respirations 19. Monitor, sinus with bundle-branch block and few episodes of paroxysmal atrial fibrillation. Orally intubated. LUNGS: Bilateral breath sounds with rhonchi. HEART: Regular rhythm and rate. Normal S1, paradoxically split S2. ABDOMEN: Soft. Slightly distended. Nontender. EXTREMITIES: Trace dependent edema. LABORATORY DATA: White count 6.5 and hemoglobin 10.3. Sodium 150, potassium 4.2, bicarb 33, BUN 46, and creatinine 0.9. Pro-natriuretic peptide is 4200. Albumin is 2. IMPRESSION: 1. Acute on chronic respiratory acidosis. 2. Paroxysmal atrial fibrillation. 3. Dehydration. 4. Hypernatremia. 5. Free water deficit. 6. Severe protein-calorie malnutrition. 7. Ischemic cardiomyopathy. 8. Acute on chronic systolic and diastolic congestive heart failure. 9. Sepsis. 10. Recovered shock. 11. Hypertensive heart disease with rising blood pressure. 12. Status post acute myocardial infarction. PLAN: 1. Antimicrobials. 2. Ventilator support with weaning efforts. 3. Free water replacement. 4. Hold diuresis pending correction of free water deficit. 5. Anti-platelet therapy. 6. Continue amiodarone for arrhythmia suppression. 7. Taper off steroids. Saeed Sim M.D. DR: YESENIA JOB#: [id number] CC:
--- NOTE | 2019-08-22 04:00 | Progress Note ---
DATE: 08/21/2019 SUBJECTIVE: The patient is awake, probably alert, afebrile, and hemodynamically stable. He does respond sometime appropriately to questions or gestures sent to him, but remained defiant to others. PHYSICAL EXAMINATION: VITAL SIGNS: Blood pressure 134/78, his pulse is 60, respirations of 16, and temperature 98.8. HEENT: Eyes were normal. ENT, mucous membranes are moist and intact. NECK: Supple with no JVD without lymph nodes. LUNGS: Clear. HEART: Normal sounds with regular beats. There is no tachycardia at rest. ABDOMEN: Soft and nontender with normal bowel sounds. EXTREMITIES: Warm without cyanosis, clubbing, or edema. LABORATORY AND DIAGNOSTIC DATA: Hemoglobin is 10.3, hematocrit 30.5 with MCV of 93, WBC of 6.5, and platelets of 260,000. His BUN and creatinine are 26 and 0.9 respectively. It was 56 and 1.1 yesterday. His sodium is 150, potassium 4.2, chloride 112, CO2 23. His sodium was 153 yesterday. His increased from 3000 to 4000. SGOT, SGPT, and alkaline phosphatase are normal. IMPRESSION: The patient failed again weaning attempt today and the animal care specialist does not think that the patient can be weaned anymore and therefore attempt was done to contact the family in regard to tracheostomy; however, the record does not contain any name of any family and was signed by the patient itself. Further attempt to get information from the alf from which the patient will be done in the a.m. Repeat laboratory tests will be done in the a.m. as well. Modesta Mulligan M.D. DR: ANKUR JOB#: [id number] CC:
[2019-08-22 05:14] LABS: BASOPHILS % (AUTO) 0.2 % (0.0-2.0); EOSINOPHILS % (AUTO) 0.1 % (0.0-3.0); HEMATOCRIT 30.2 % (42.0-52.0); HEMOGLOBIN 10.4 G/DL (14.2-18.0); LYMPHOCYTES % (AUTO) 10.4 % (20.0-45.0); MEAN CORPUSCULAR VOLUME 92 FL (80-99); MONOCYTES % (AUTO) 4.9 % (1.0-10.0); NEUTROPHILS % (AUTO) 84.4 % (45.0-75.0); PLATELET COUNT 235 K/UL (150-450); RED BLOOD COUNT 3.28 M/UL (4.70-6.10); RED CELL DISTRIBUTION WIDTH 12.5 % (11.6-14.8); WHITE BLOOD COUNT 6.5 K/UL (4.8-10.8)
[2019-08-22 05:32] LABS: ALANINE AMINOTRANSFERASE 38 U/L (12-78); ALBUMIN/GLOBULIN RATIO 0.8 (1.0-2.7); ALKALINE PHOSPHATASE 108 U/L (46-116); ANION GAP 6 mmol/L (5-15); ASPARTATE AMINO TRANSFERASE 22 U/L (15-37); BILIRUBIN,TOTAL 0.3 MG/DL (0.2-1.0); BLOOD UREA NITROGEN 38 mg/dL (7-18); CALCIUM 8.3 MG/DL (8.5-10.1); CARBON DIOXIDE 33 MMOL/L (21-32); CHLORIDE 108 MMOL/L (98-107); CREATININE 0.7 MG/DL (0.55-1.30); PHOSPHORUS 2.5 MG/DL (2.5-4.9); POTASSIUM 3.9 MMOL/L (3.5-5.1); SODIUM 147 MMOL/L (136-145)
[2019-08-22] MEDS: Pantoprazole Inj IVP SCH ×2 (08:23→21:11)
[2019-08-22] MEDS: Amiodarone 200mg tab NG SCH (08:23)
[2019-08-22] MEDS: Heparin 5000 units/ml inj SUBQ SCH ×2 (08:24→21:13)
[2019-08-22] MEDS ORDERED: Amiodarone 200mg tab NG SCH (09:00)
[2019-08-22] MEDS: Colistin for inhalation INH SCH ×2 (10:15→23:08)
--- NOTE | 2019-08-22 11:13 | Infectious Diseases Prog Note ---
Assessment/Plan Assessment/Plan ASSESSMENT: The patient is a 79-year-old male with: Leukocytosis; Sp Fever , sp Sepsis, Sp Pneumonia ( probable asp), Sp RX -08/13 Scx: MDR-ACB (Tygacil LANI: 4) - CXR: 1. Streaky opacities in the right lower lung may represent atelectasis versus scarring. Left basilar opacity may represent atelectasis. Component of pneumonia is not excluded. Pulmonary vasculature congestion. -08/01 ucx NTD - sp cx: nl anastacio Urinary tract infection, SP Rx 08/17 Sp code blue and intubation 07/31 Sp Code blue and intubation , sp extubation 08/12 , Hyperlipidemia. COPD. History of GERD. History of encephalopathy. History of CAD/GA. History of cardiomyopathy. Hypertension. PLAN: Cont Merrem 03/10- ( will cont as pt fever and WBC improved), cont Colistin INH (MDR-ACB) #12/11-14 - 08/14 SP IV Vanco # 4 -08/07 SP Zosyn and IV Vanco # 12/08 , -08/01 SP Rocephin day # 10 - 07/31 sp sp Dox # 6 Monitor CBC. Monitor BMP. Monitor chest x-ray cont ICU Support Rpt Cx (B,U,S) discussed with RN Subjective Allergies: Coded Allergies: No Known Allergies (Unverified , 06/03/17) Subjective no acute event on vent in ICU Objective Vital Signs Last 24 Hour Vital Signs Date Time Temp Pulse Resp B/P (MAP) Pulse Ox O2 Delivery O2 Flow Rate FiO2 08/22/19 10:30 61 16 97 Mechanical Ventilator 40 61 16 40 08/22/19 10:00 58 16 127/53 (77) 97 08/22/19 09:20 57 16 40 08/22/19 09:20 97 08/22/19 09:20 57 16 97 Mechanical Ventilator 40 08/22/19 09:00 60 17 126/58 (80) 97 08/22/19 08:00 40 08/22/19 08:00 Mechanical Ventilator Mechanical Ventilator 08/22/19 08:00 65 08/22/19 08:00 99.0 65 16 145/61 (89) 96 08/22/19 07:00 59 16 132/46 (74) 98 08/22/19 06:58 60 16 40 08/22/19 06:00 62 16 128/52 (77) 97 08/22/19 05:29 81 21 40 08/22/19 05:00 66 17 137/60 (85) 97 08/22/19 04:08 72 19 40 08/22/19 04:00 40 08/22/19 04:00 Mechanical Ventilator Mechanical Ventilator 08/22/19 04:00 98.0 70 17 141/58 (85) 97 08/22/19 03:04 63 08/22/19 03:00 61 16 135/58 (83) 95 08/22/19 02:00 63 15 136/52 (80) 94 08/22/19 01:05 81 20 40 08/22/19 01:00 69 16 156/65 (95) 97 08/22/19 00:00 98.8 60 16 129/52 (77) 97 08/22/19 00:00 Mechanical Ventilator Mechanical Ventilator 08/21/19 23:54 59 08/21/19 23:00 73 17 135/51 (79) 97 08/21/19 22:59 62 16 100 Mechanical Ventilator 40 69 16 40 08/21/19 22:00 61 16 126/51 (76) 97 08/21/19 21:19 67 17 40 08/21/19 21:00 60 16 133/50 (77) 97 08/21/19 20:00 40 08/21/19 20:00 Mechanical Ventilator Mechanical Ventilator 08/21/19 20:00 98.8 60 16 134/51 (78) 97 08/21/19 19:37 60 08/21/19 19:00 60 16 136/58 (84) 97 08/21/19 19:00 69 16 40 08/21/19 18:00 59 16 131/49 (76) 97 08/21/19 17:00 59 16 137/54 (81) 99 08/21/19 16:55 68 17 40 08/21/19 16:00 40 08/21/19 16:00 98.7 58 14 124/47 (72) 97 08/21/19 16:00 59 08/21/19 16:00 Mechanical Ventilator Mechanical Ventilator 08/21/19 15:17 59 16 40 08/21/19 15:00 70 16 136/47 (76) 95 08/21/19 14:00 59 19 125/59 (81) 97 08/21/19 13:00 79 21 150/66 (94) 98 08/21/19 12:40 74 18 40 08/21/19 12:00 Mechanical Ventilator Mechanical Ventilator 08/21/19 12:00 40 08/21/19 12:00 61 16 130/55 (80) 96 08/21/19 11:19 61 Height (Feet): 5 Height (Inches): 6.00 Weight (Pounds): 205 HEENT: anicteric Respiratory/Chest: no respiratory distress Cardiovascular: regular rhythm Abdomen: soft, non tender Laboratory Tests Test 08/22/19 04:00 08/22/19 10:16 White Blood Count 6.5 K/UL (4.8-10.8) Red Blood Count 3.28 M/UL (4.70-6.10) L Hemoglobin 10.4 G/DL (14.2-18.0) L Hematocrit 30.2 % (42.0-52.0) L Mean Corpuscular Volume 92 FL (80-99) Mean Corpuscular Hemoglobin 31.9 PG (27.0-31.0) H Mean Corpuscular Hemoglobin Concent 34.5 G/DL (32.0-36.0) Red Cell Distribution Width 12.5 % (11.6-14.8) Platelet Count 235 K/UL (150-450) Mean Platelet Volume 5.5 FL (6.5-10.1) L Neutrophils (%) (Auto) 84.4 % (45.0-75.0) H Lymphocytes (%) (Auto) 10.4 % (20.0-45.0) L Monocytes (%) (Auto) 4.9 % (1.0-10.0) Eosinophils (%) (Auto) 0.1 % (0.0-3.0) Basophils (%) (Auto) 0.2 % (0.0-2.0) Sodium Level 147 MMOL/L (136-145) H Potassium Level 3.9 MMOL/L (3.5-5.1) Chloride Level 108 MMOL/L (98-107) H Carbon Dioxide Level 33 MMOL/L (21-32) H Anion Gap 6 mmol/L (5-15) Blood Urea Nitrogen 38 mg/dL (7-18) H Creatinine 0.7 MG/DL (0.55-1.30) Estimat Glomerular Filtration Rate > 60 mL/min (>60) Glucose Level 235 MG/DL (74-106) H Calcium Level 8.3 MG/DL (8.5-10.1) L Phosphorus Level 2.5 MG/DL (2.5-4.9) Magnesium Level 2.1 MG/DL (1.8-2.4) Total Bilirubin 0.3 MG/DL (0.2-1.0) Aspartate Amino Transf (AST/SGOT) 22 U/L (15-37) Alanine Aminotransferase (ALT/SGPT) 38 U/L (12-78) Alkaline Phosphatase 108 U/L (46-116) Total Protein 4.6 G/DL (6.4-8.2) L Albumin 2.0 G/DL (3.4-5.0) L Globulin 2.6 g/dL Albumin/Globulin Ratio 0.8 (1.0-2.7) L Arterial Blood pH 7.513 (7.350-7.450) Arterial Blood Partial Pressure CO2 37.9 mmHg (35.0-45.0) Arterial Blood Partial Pressure O2 190.6 mmHg (75.0-100.0) H Arterial Blood HCO3 29.8 mmol/L (22.0-26.0) H Arterial Blood Oxygen Saturation 97.9 % (95-100) Arterial Blood Base Excess 6.4 (-2-2) H Joe Test Positive Current Medications Medications (Trade) Dose Ordered Sig/Amaris Route PRN Reason Start Time Stop Time Status Last Admin Dose Admin Acetaminophen (Tylenol) 650 mg Q4H PRN NG Mild Pain/Temp > 100.5 08/18/19 09:30 09/15/19 09:29 Amiodarone HCl (Cordarone) 200 mg DAILY NG 08/20/19 09:00 11/18/19 08:59 08/22/19 08:23 Atorvastatin Calcium (Lipitor) 40 mg BEDTIME NG 08/18/19 21:00 09/13/19 20:59 08/21/19 20:41 Chlorhexidine Gluconate (Kamila-Hex 2%) 1 applic DAILY@1999 TOPIC 08/18/19 20:00 09/17/19 19:59 08/21/19 20:40 Clopidogrel Bisulfate (Plavix) 75 mg DAILY NG 08/19/19 09:00 09/13/19 08:59 08/22/19 08:23 Colistimethate Sodium (Colistin *inhalation use only*) 75 mg Q12HR@10,22 INH 08/18/19 10:00 08/28/19 09:59 08/22/19 10:15 Dextrose 1,000 ml @ 75 mls/hr [id number] IV 08/20/19 08:08 09/19/19 08:07 08/21/19 23:10 Heparin Sodium (Porcine) (Heparin 5000 units/ml) 5,000 units EVERY 12 HOURS SUBQ 08/21/19 09:00 10/05/19 08:59 08/22/19 08:24 Hydralazine HCl (Apresoline) 10 mg Q4H PRN IV For High Blood Pressure 08/21/19 10:50 11/19/19 10:49 Hydrocortisone (Solu-CORTEF) 50 mg Q24H IV 08/22/19 22:00 11/20/19 21:59 Olanzapine (ZyPREXA Zydis) 5 mg BEDTIME NG 08/21/19 21:00 10/05/19 20:59 08/21/19 20:41 Pantoprazole (Protonix) 40 mg EVERY 12 HOURS IVP 08/21/19 09:00 09/20/19 08:59 08/22/19 08:23 Angel Rudolph MD Aug 22, 2019 11:13
--- NOTE | 2019-08-22 11:14 | Diagnostic Imaging Report ---
Indication: Reason For Exam: DYSPNEA Technique: One view of the chest Comparison: 08/20/2019 Findings: Interim placement of orogastric tube, tip which projects at the level of the gastric antrum. Stable satisfactory position of endotracheal tube. Mild interstitial edema is unchanged. Atelectatic changes in the right mid and lower lung are unchanged. There appears to be decreased pleural fluid on the left. Impression: Improved left pleural effusion, over 2 days. Stable interstitial congestion Interim orogastric tube placement
--- NOTE | 2019-08-22 11:54 | Pulmonolgy Critical Care Note ---
Critical Care - Asmt/Plan Problems: (1) Acute respiratory failure (2) Cardiopulmonary arrest (3) Cardiac LV ejection fraction 40% (4) Nosocomial pneumonia (5) Atrial fibrillation Assessment & Plan: controlled (6) Pulmonary edema (7) COPD (chronic obstructive pulmonary disease) (8) CAD (coronary artery disease) (9) Dementia with behavioral disturbance Respiratory: monitor respiratory rate, adjust FIO2, CXR Cardiac: continue pressors, continue to monitor HR/BP Renal: F/U I&O Infectious Disease: check cultures Gastrointestinal: continue feedings/current rate Endocrine: check TSH Hematologic: monitor H/H Neurologic: PRN Ativan, PRN Morphine, keep patient comfortable Prophylaxis: Protonix Disposition: keep in ICU Time Spent (Minutes): 40 Notes Reviewed: cardio, renal Discussed with: nurses, consultants, casey saw operatormanager hair - Objective Last 24 Hour Vital Signs Date Time Temp Pulse Resp B/P (MAP) Pulse Ox O2 Delivery O2 Flow Rate FiO2 08/22/19 11:00 59 16 130/50 (76) 96 08/22/19 10:30 61 16 97 Mechanical Ventilator 40 61 16 40 08/22/19 10:00 58 16 127/53 (77) 97 08/22/19 09:20 57 16 40 08/22/19 09:20 97 08/22/19 09:20 57 16 97 Mechanical Ventilator 40 08/22/19 09:00 60 17 126/58 (80) 97 08/22/19 08:00 40 08/22/19 08:00 Mechanical Ventilator Mechanical Ventilator 08/22/19 08:00 65 08/22/19 08:00 99.0 65 16 145/61 (89) 96 08/22/19 07:00 59 16 132/46 (74) 98 08/22/19 06:58 60 16 40 08/22/19 06:00 62 16 128/52 (77) 97 08/22/19 05:29 81 21 40 08/22/19 05:00 66 17 137/60 (85) 97 08/22/19 04:08 72 19 40 08/22/19 04:00 40 08/22/19 04:00 Mechanical Ventilator Mechanical Ventilator 08/22/19 04:00 98.0 70 17 141/58 (85) 97 08/22/19 03:04 63 08/22/19 03:00 61 16 135/58 (83) 95 08/22/19 02:00 63 15 136/52 (80) 94 08/22/19 01:05 81 20 40 08/22/19 01:00 69 16 156/65 (95) 97 08/22/19 00:00 98.8 60 16 129/52 (77) 97 08/22/19 00:00 Mechanical Ventilator Mechanical Ventilator 08/21/19 23:54 59 08/21/19 23:00 73 17 135/51 (79) 97 08/21/19 22:59 62 16 100 Mechanical Ventilator 40 69 16 40 08/21/19 22:00 61 16 126/51 (76) 97 08/21/19 21:19 67 17 40 08/21/19 21:00 60 16 133/50 (77) 97 08/21/19 20:00 40 08/21/19 20:00 Mechanical Ventilator Mechanical Ventilator 08/21/19 20:00 98.8 60 16 134/51 (78) 97 08/21/19 19:37 60 08/21/19 19:00 60 16 136/58 (84) 97 08/21/19 19:00 69 16 40 08/21/19 18:00 59 16 131/49 (76) 97 08/21/19 17:00 59 16 137/54 (81) 99 08/21/19 16:55 68 17 40 08/21/19 16:00 40 08/21/19 16:00 98.7 58 14 124/47 (72) 97 08/21/19 16:00 59 08/21/19 16:00 Mechanical Ventilator Mechanical Ventilator 08/21/19 15:17 59 16 40 08/21/19 15:00 70 16 136/47 (76) 95 08/21/19 14:00 59 19 125/59 (81) 97 08/21/19 13:00 79 21 150/66 (94) 98 08/21/19 12:40 74 18 40 08/21/19 12:00 Mechanical Ventilator Mechanical Ventilator 08/21/19 12:00 40 08/21/19 12:00 61 16 130/55 (80) 96 Status: awake Condition: grave HEENT: atraumatic Abdomen: soft Accucheck: 153 Critical Care - Subjective ROS Limited/Unobtainable: No Condition: critical EKG Rhythm: Sinus Rhythm FI02: 40 Vent Support Breath Rate: 16 Vent Support Mode: AC Vent Tidal Volume: 600 Sputum Amount: Small PEEP: 5.0 PIP: 36 Tube Feeding Amount: 55 I&O: Intake and Output 08/21/19 08/22/19 19:00 07:00 Intake Total 1722.5 ml 1625.0 ml Output Total 430 ml 825 ml Balance 1292.5 ml 800.0 ml Free Water 90 ml 30 ml IV Total 972.5 ml 875.0 ml Tube Feeding 660 ml 660 ml Other 60 ml Output Urine Total 430 ml 825 ml # Bowel Movements 2 1 ET-Tube: 8.0 ET Position: 24 Labs: Laboratory Tests Test 08/22/19 04:00 08/22/19 10:16 White Blood Count 6.5 K/UL (4.8-10.8) Red Blood Count 3.28 M/UL (4.70-6.10) L Hemoglobin 10.4 G/DL (14.2-18.0) L Hematocrit 30.2 % (42.0-52.0) L Mean Corpuscular Volume 92 FL (80-99) Mean Corpuscular Hemoglobin 31.9 PG (27.0-31.0) H Mean Corpuscular Hemoglobin Concent 34.5 G/DL (32.0-36.0) Red Cell Distribution Width 12.5 % (11.6-14.8) Platelet Count 235 K/UL (150-450) Mean Platelet Volume 5.5 FL (6.5-10.1) L Neutrophils (%) (Auto) 84.4 % (45.0-75.0) H Lymphocytes (%) (Auto) 10.4 % (20.0-45.0) L Monocytes (%) (Auto) 4.9 % (1.0-10.0) Eosinophils (%) (Auto) 0.1 % (0.0-3.0) Basophils (%) (Auto) 0.2 % (0.0-2.0) Sodium Level 147 MMOL/L (136-145) H Potassium Level 3.9 MMOL/L (3.5-5.1) Chloride Level 108 MMOL/L (98-107) H Carbon Dioxide Level 33 MMOL/L (21-32) H Anion Gap 6 mmol/L (5-15) Blood Urea Nitrogen 38 mg/dL (7-18) H Creatinine 0.7 MG/DL (0.55-1.30) Estimat Glomerular Filtration Rate > 60 mL/min (>60) Glucose Level 235 MG/DL (74-106) H Calcium Level 8.3 MG/DL (8.5-10.1) L Phosphorus Level 2.5 MG/DL (2.5-4.9) Magnesium Level 2.1 MG/DL (1.8-2.4) Total Bilirubin 0.3 MG/DL (0.2-1.0) Aspartate Amino Transf (AST/SGOT) 22 U/L (15-37) Alanine Aminotransferase (ALT/SGPT) 38 U/L (12-78) Alkaline Phosphatase 108 U/L (46-116) Total Protein 4.6 G/DL (6.4-8.2) L Albumin 2.0 G/DL (3.4-5.0) L Globulin 2.6 g/dL Albumin/Globulin Ratio 0.8 (1.0-2.7) L Arterial Blood pH 7.513 (7.350-7.450) Arterial Blood Partial Pressure CO2 37.9 mmHg (35.0-45.0) Arterial Blood Partial Pressure O2 190.6 mmHg (75.0-100.0) H Arterial Blood HCO3 29.8 mmol/L (22.0-26.0) H Arterial Blood Oxygen Saturation 97.9 % (95-100) Arterial Blood Base Excess 6.4 (-2-2) H Joe Test Positive Nicole Graves MD Aug 22, 2019 11:54
--- NOTE | 2019-08-22 16:08 | Surgery Progress Note ---
Surgery Progress Note Subjective Procedure Performed Right femoral triple-lumen central venous catheter insertion Additional Comments ill appearing exam unchanged labs noted Objective Last 24 Hour Vital Signs Date Time Temp Pulse Resp B/P (MAP) Pulse Ox O2 Delivery O2 Flow Rate FiO2 08/22/19 16:00 Mechanical Ventilator Mechanical Ventilator 08/22/19 16:00 63 08/22/19 16:00 98.3 62 17 130/53 (78) 97 08/22/19 16:00 40 08/22/19 15:00 63 18 135/59 (84) 96 08/22/19 14:59 60 16 40 08/22/19 14:00 57 16 120/50 (73) 96 08/22/19 13:09 61 16 40 08/22/19 13:00 58 16 126/61 (82) 97 08/22/19 12:00 98.5 68 21 151/60 (90) 97 08/22/19 12:00 40 08/22/19 12:00 Mechanical Ventilator Mechanical Ventilator 08/22/19 12:00 68 08/22/19 11:00 59 16 130/50 (76) 96 08/22/19 10:30 61 16 97 Mechanical Ventilator 40 61 16 40 08/22/19 10:00 58 16 127/53 (77) 97 08/22/19 09:20 57 16 40 08/22/19 09:20 97 08/22/19 09:20 57 16 97 Mechanical Ventilator 40 08/22/19 09:00 60 17 126/58 (80) 97 08/22/19 08:00 40 08/22/19 08:00 Mechanical Ventilator Mechanical Ventilator 08/22/19 08:00 65 08/22/19 08:00 99.0 65 16 145/61 (89) 96 08/22/19 07:00 59 16 132/46 (74) 98 08/22/19 06:58 60 16 40 08/22/19 06:00 62 16 128/52 (77) 97 08/22/19 05:29 81 21 40 08/22/19 05:00 66 17 137/60 (85) 97 08/22/19 04:08 72 19 40 08/22/19 04:00 40 08/22/19 04:00 Mechanical Ventilator Mechanical Ventilator 08/22/19 04:00 98.0 70 17 141/58 (85) 97 08/22/19 03:04 63 08/22/19 03:00 61 16 135/58 (83) 95 08/22/19 02:00 63 15 136/52 (80) 94 08/22/19 01:05 81 20 40 08/22/19 01:00 69 16 156/65 (95) 97 08/22/19 00:00 98.8 60 16 129/52 (77) 97 08/22/19 00:00 Mechanical Ventilator Mechanical Ventilator 08/21/19 23:54 59 08/21/19 23:00 73 17 135/51 (79) 97 08/21/19 22:59 62 16 100 Mechanical Ventilator 40 69 16 40 08/21/19 22:00 61 16 126/51 (76) 97 08/21/19 21:19 67 17 40 08/21/19 21:00 60 16 133/50 (77) 97 08/21/19 20:00 40 08/21/19 20:00 Mechanical Ventilator Mechanical Ventilator 08/21/19 20:00 98.8 60 16 134/51 (78) 97 08/21/19 19:37 60 08/21/19 19:00 60 16 136/58 (84) 97 08/21/19 19:00 69 16 40 08/21/19 18:00 59 16 131/49 (76) 97 08/21/19 17:00 59 16 137/54 (81) 99 08/21/19 16:55 68 17 40 I&O Intake and Output 08/21/19 08/22/19 19:00 07:00 Intake Total 1722.5 ml 1625.0 ml Output Total 430 ml 825 ml Balance 1292.5 ml 800.0 ml Free Water 90 ml 30 ml IV Total 972.5 ml 875.0 ml Tube Feeding 660 ml 660 ml Other 60 ml Output Urine Total 430 ml 825 ml # Bowel Movements 2 1 Dressing: other Wound: other Drains: other Cardiovascular: RSR Respiratory: decreased breath sounds Abdomen: soft, non-tender, present bowel sounds Extremities: no cyanosis Laboratory Tests Test 08/22/19 04:00 08/22/19 10:16 White Blood Count 6.5 K/UL (4.8-10.8) Red Blood Count 3.28 M/UL (4.70-6.10) L Hemoglobin 10.4 G/DL (14.2-18.0) L Hematocrit 30.2 % (42.0-52.0) L Mean Corpuscular Volume 92 FL (80-99) Mean Corpuscular Hemoglobin 31.9 PG (27.0-31.0) H Mean Corpuscular Hemoglobin Concent 34.5 G/DL (32.0-36.0) Red Cell Distribution Width 12.5 % (11.6-14.8) Platelet Count 235 K/UL (150-450) Mean Platelet Volume 5.5 FL (6.5-10.1) L Neutrophils (%) (Auto) 84.4 % (45.0-75.0) H Lymphocytes (%) (Auto) 10.4 % (20.0-45.0) L Monocytes (%) (Auto) 4.9 % (1.0-10.0) Eosinophils (%) (Auto) 0.1 % (0.0-3.0) Basophils (%) (Auto) 0.2 % (0.0-2.0) Sodium Level 147 MMOL/L (136-145) H Potassium Level 3.9 MMOL/L (3.5-5.1) Chloride Level 108 MMOL/L (98-107) H Carbon Dioxide Level 33 MMOL/L (21-32) H Anion Gap 6 mmol/L (5-15) Blood Urea Nitrogen 38 mg/dL (7-18) H Creatinine 0.7 MG/DL (0.55-1.30) Estimat Glomerular Filtration Rate > 60 mL/min (>60) Glucose Level 235 MG/DL (74-106) H Calcium Level 8.3 MG/DL (8.5-10.1) L Phosphorus Level 2.5 MG/DL (2.5-4.9) Magnesium Level 2.1 MG/DL (1.8-2.4) Total Bilirubin 0.3 MG/DL (0.2-1.0) Aspartate Amino Transf (AST/SGOT) 22 U/L (15-37) Alanine Aminotransferase (ALT/SGPT) 38 U/L (12-78) Alkaline Phosphatase 108 U/L (46-116) Total Protein 4.6 G/DL (6.4-8.2) L Albumin 2.0 G/DL (3.4-5.0) L Globulin 2.6 g/dL Albumin/Globulin Ratio 0.8 (1.0-2.7) L Arterial Blood pH 7.513 (7.350-7.450) Arterial Blood Partial Pressure CO2 37.9 mmHg (35.0-45.0) Arterial Blood Partial Pressure O2 190.6 mmHg (75.0-100.0) H Arterial Blood HCO3 29.8 mmol/L (22.0-26.0) H Arterial Blood Oxygen Saturation 97.9 % (95-100) Arterial Blood Base Excess 6.4 (-2-2) H Joe Test Positive Plan Problems: (1) Nosocomial pneumonia (2) AUREA (acute kidney injury) (3) Cardiomyopathy (4) Obesity (BMI 30.0-34.9) (5) DMII (diabetes mellitus, type 2) (6) Cardiac LV ejection fraction 40% (7) Pulmonary edema (8) Cardiopulmonary arrest Assessment & Plan: Cardiopulmonary arrest septic requiring urgent emergency line placement for pressors and fluids and meds Please see procedure report Full examination performed no other surgical issues found at this time etiology unknown likely surgical in nature Antibiotics fluids Pressors Vent off pressors line okay labs reviewed cont tube feeds wean ivf leave line obtain peripheral and will plan d/c line soon (9) Respiratory failure (10) History of hypertension (11) COPD (chronic obstructive pulmonary disease) (12) CAD (coronary artery disease) (13) Atrial fibrillation (14) Dementia with behavioral disturbance (15) Upper respiratory infection (16) Acute respiratory failure (17) Dyspnea (18) UTI (urinary tract infection) Prosper Hummel Aug 22, 2019 16:08
[2019-08-22] MEDS: Dyna-Hex 2% Top Sol 2oz TOPIC SCH (21:10)
[2019-08-22] MEDS: ZyPREXA Zydis 5mg tab NG SCH (21:11)
[2019-08-22] MEDS: Atorvastatin 20mg tab NG SCH (21:11)
[2019-08-22] MEDS ORDERED: Hydrocortisone 100mg Inj IV SCH (22:00)
--- NOTE | 2019-08-22 22:00 | Progress Note ---
DATE: 08/22/2019 SUBJECTIVE: The patient is in bilateral soft restraints, has episodes of agitation. He continues to be confused. His O2 saturation has improved. No behavior issues noted. Compliant with medication. MENTAL STATUS EXAMINATION: The patient is alert and oriented to self. Mood is anxious. Affect is flat. Thought process is concrete. Thought content, no suicidal or homicidal ideation. Cognition is impaired. Insight and judgment impaired. ASSESSMENT: Acute encephalopathy. PLAN: 1. Continue Zyprexa. 2. Provide the patient with reality orientation. Duarte Vizcarra M.D. DR: GLORIA JOB#: [id number] CC: IMANI
--- NOTE | 2019-08-22 23:45 | Progress Note ---
DATE: 08/22/2019 CARDIOLOGY PROGRESS NOTE SUBJECTIVE: The patient's condition remains critical. Prognosis guarded. He has not responded well to weaning efforts due to apnea. He continues to have sinus rhythm with bradycardic episodes more frequent and bundle-branch block. PHYSICAL EXAMINATION: VITAL SIGNS: Blood pressure 127/51, heart rate 54, respiratory rate 11. GENERAL: Orally intubated. Mechanically ventilated. LUNGS: Bilateral breath sounds. Thin secretions. Rhonchi bilaterally. CARDIAC: Regular rhythm and rate. Normal S1, S2. ABDOMEN: Soft. EXTREMITIES: Trace edema. LABORATORY AND DIAGNOSTIC DATA: Chest x-ray reveals left pleural effusion decreased with interstitial congestion, unchanged. Sodium 147, potassium 3.9, bicarb 33, BUN 38, creatinine 0.7. Magnesium 2.1. Phosphorus 2.5. Albumin 2.0. ABG 7.51, 38, 190. White count 6.5, hemoglobin 10.4. IMPRESSION: 1. Respiratory failure, status post cardiopulmonary arrest and subsequent respiratory arrest. 2. Acute on chronic respiratory acidosis. 3. COPD. 4. Acute myocardial infarction. 5. Dehydration. 6. Hypernatremia. 7. Bradyarrhythmias. 8. Paroxysmal atrial fibrillation. 9. Severe protein-calorie malnutrition. PLAN: 1. May need trach. 2. Discontinue amiodarone for now. 3. Free water replacement. 4. Hold diuresis. 5. Antimicrobials. 6. Taper off stress dose steroids. 7. DVT prophylaxis. Saeed Sim M.D. DR: OMID/JERMAN JOB#: [id number] CC: IMANI
[2019-08-23] VITALS (24 sets, daily range): BP systolic 114–163; BP diastolic 46–106
[2019-08-23 05:15] LABS: BASOPHILS % (AUTO) 0.1 % (0.0-2.0); EOSINOPHILS % (AUTO) 1.7 % (0.0-3.0); HEMATOCRIT 33.8 % (42.0-52.0); HEMOGLOBIN 11.5 G/DL (14.2-18.0); LYMPHOCYTES % (AUTO) 10.5 % (20.0-45.0); MEAN CORPUSCULAR VOLUME 93 FL (80-99); MONOCYTES % (AUTO) 4.4 % (1.0-10.0); NEUTROPHILS % (AUTO) 83.3 % (45.0-75.0); PLATELET COUNT 238 K/UL (150-450); RED BLOOD COUNT 3.64 M/UL (4.70-6.10); WHITE BLOOD COUNT 9.7 K/UL (4.8-10.8)
[2019-08-23 05:34] LABS: ALANINE AMINOTRANSFERASE 47 U/L (12-78); ALBUMIN 2.1 G/DL (3.4-5.0); ALBUMIN/GLOBULIN RATIO 0.7 (1.0-2.7); ALKALINE PHOSPHATASE 123 U/L (46-116); ANION GAP 5 mmol/L (5-15); ASPARTATE AMINO TRANSFERASE 28 U/L (15-37); BILIRUBIN,TOTAL 0.4 MG/DL (0.2-1.0); BLOOD UREA NITROGEN 39 mg/dL (7-18); CALCIUM 9.1 MG/DL (8.5-10.1); CARBON DIOXIDE 33 MMOL/L (21-32); CHLORIDE 108 MMOL/L (98-107); CREATININE 0.7 MG/DL (0.55-1.30); PHOSPHORUS 2.8 MG/DL (2.5-4.9); POTASSIUM 4.1 MMOL/L (3.5-5.1); SODIUM 146 MMOL/L (136-145)
[2019-08-23] MEDS: Pantoprazole Inj IVP SCH ×2 (08:14→20:37)
[2019-08-23] MEDS: Amiodarone 200mg tab NG SCH (08:14)
[2019-08-23] MEDS: Heparin 5000 units/ml inj SUBQ SCH ×2 (08:16→20:39)
--- NOTE | 2019-08-23 08:24 | Diagnostic Imaging Report ---
EXAM: XR Chest, 1 View CLINICAL HISTORY: DYSPNEA TECHNIQUE: Frontal view of the chest. COMPARISON: 1 day prior FINDINGS: Lungs: There is been slight worsening of mild perihilar and lower lobe pulmonary edema. Pleural space: There is an unchanged small right pleural effusion and increasing mild left pleural effusion. No pneumothorax. Heart: Mildly enlarged Mediastinum: Unremarkable. Bones/joints: Unremarkable. Tubes, lines and devices: There is an endotracheal tube and NG tube in unchanged position. IMPRESSION: Slight interval worsening mild perihilar and lower lobe pulmonary edema as well as small left pleural effusion with unchanged small right pleural effusion
[2019-08-23] MEDS ORDERED: D5NS 1000ml IV ONE (09:39)
[2019-08-23] MEDS ORDERED: NS 275ml ONE ×2 (10:08→10:15)
--- NOTE | 2019-08-23 10:35 | Infectious Diseases Prog Note ---
Assessment/Plan Assessment/Plan ASSESSMENT: The patient is a 79-year-old male with: Leukocytosis; Sp Fever , sp Sepsis, Sp Pneumonia ( probable asp), Sp RX -08/13 Scx: MDR-ACB (Tygacil LAIN: 4) - CXR: 1. Streaky opacities in the right lower lung may represent atelectasis versus scarring. Left basilar opacity may represent atelectasis. Component of pneumonia is not excluded. Pulmonary vasculature congestion. -08/01 ucx NTD - sp cx: nl anastacio Urinary tract infection, SP Rx 08/17 Sp code blue and intubation 07/31 Sp Code blue and intubation , sp extubation 08/12 , Hyperlipidemia. COPD. History of GERD. History of encephalopathy. History of CAD/DC. History of cardiomyopathy. Hypertension. PLAN: cont Colistin INH (MDR-ACB) #8/-14 - 08/22/19 SP Merrem 10 - 08/14 SP IV Vanco # 4 -08/07 SP Zosyn and IV Vanco # 7/ , -08/01 SP Rocephin day # 10 - 07/31 sp sp Dox # 6 Monitor CBC. Monitor BMP. Monitor chest x-ray cont ICU Support Rpt Cx (B,U,S) discussed with RN Subjective Allergies: Coded Allergies: No Known Allergies (Unverified , 06/03/17) Subjective Afebrile No Leukocytosis On vent 40% O2 Objective Vital Signs Last 24 Hour Vital Signs Date Time Temp Pulse Resp B/P (MAP) Pulse Ox O2 Delivery O2 Flow Rate FiO2 08/23/19 10:00 70 20 159/66 (97) 96 08/23/19 09:21 65 16 40 08/23/19 09:20 98 08/23/19 09:00 63 12 157/68 (97) 95 08/23/19 08:00 66 08/23/19 08:00 Mechanical Ventilator Mechanical Ventilator 08/23/19 08:00 98.2 63 13 156/69 (98) 95 08/23/19 08:00 40 08/23/19 07:00 62 7 146/63 (90) 75 08/23/19 06:57 63 17 40 08/23/19 06:00 62 5 144/63 (90) 94 08/23/19 05:26 68 16 40 08/23/19 05:00 63 9 142/73 (96) 95 08/23/19 04:00 98.0 65 18 126/100 (109) 93 08/23/19 04:00 40 08/23/19 04:00 Mechanical Ventilator Mechanical Ventilator 08/23/19 03:46 64 17 40 08/23/19 03:14 56 08/23/19 03:00 59 13 134/63 (86) 95 08/23/19 02:00 82 21 146/106 (119) 93 08/23/19 01:39 60 16 40 08/23/19 01:00 64 20 119/58 (78) 95 08/23/19 00:00 Mechanical Ventilator Mechanical Ventilator 08/23/19 00:00 98.1 56 12 114/55 (74) 95 08/22/19 23:10 59 08/22/19 23:08 58 16 98 Mechanical Ventilator 40 60 16 40 08/22/19 23:00 56 12 114/48 (70) 95 08/22/19 22:00 57 18 116/50 (72) 93 08/22/19 21:00 54 11 127/51 (76) 97 08/22/19 20:00 Mechanical Ventilator Mechanical Ventilator 08/22/19 20:00 98.3 58 14 114/48 (70) 95 08/22/19 20:00 40 08/22/19 19:18 62 08/22/19 19:16 58 16 40 08/22/19 19:00 60 16 130/54 (79) 94 08/22/19 18:00 57 16 118/48 (71) 96 08/22/19 17:01 53 16 40 08/22/19 17:00 56 16 118/48 (71) 96 08/22/19 16:00 Mechanical Ventilator Mechanical Ventilator 08/22/19 16:00 63 08/22/19 16:00 98.3 62 17 130/53 (78) 97 08/22/19 16:00 40 08/22/19 15:00 63 18 135/59 (84) 96 08/22/19 14:59 60 16 40 08/22/19 14:00 57 16 120/50 (73) 96 08/22/19 13:09 61 16 40 08/22/19 13:00 58 16 126/61 (82) 97 08/22/19 12:00 98.5 68 21 151/60 (90) 97 08/22/19 12:00 40 08/22/19 12:00 Mechanical Ventilator Mechanical Ventilator 08/22/19 12:00 68 08/22/19 11:00 59 16 130/50 (76) 96 Height (Feet): 5 Height (Inches): 6.00 Weight (Pounds): 205 HEENT: normocephalic, atraumatic Respiratory/Chest: normal breath sounds, no respiratory distress Cardiovascular: normal rate, regular rhythm Abdomen: soft, non tender Laboratory Tests Test 08/22/19 23:00 08/23/19 04:00 08/23/19 07:26 Urine Osmolality 964 mOsm/kg (429-449) H Urine Random Sodium < 20 mmol/L (20-110) L White Blood Count 9.7 K/UL (4.8-10.8) Red Blood Count 3.64 M/UL (4.70-6.10) L Hemoglobin 11.5 G/DL (14.2-18.0) L Hematocrit 33.8 % (42.0-52.0) L Mean Corpuscular Volume 93 FL (80-99) Mean Corpuscular Hemoglobin 31.6 PG (27.0-31.0) H Mean Corpuscular Hemoglobin Concent 34.0 G/DL (32.0-36.0) Red Cell Distribution Width 13.0 % (11.6-14.8) Platelet Count 238 K/UL (150-450) Mean Platelet Volume 5.8 FL (6.5-10.1) L Neutrophils (%) (Auto) 83.3 % (45.0-75.0) H Lymphocytes (%) (Auto) 10.5 % (20.0-45.0) L Monocytes (%) (Auto) 4.4 % (1.0-10.0) Eosinophils (%) (Auto) 1.7 % (0.0-3.0) Basophils (%) (Auto) 0.1 % (0.0-2.0) Sodium Level 146 MMOL/L (136-145) H Potassium Level 4.1 MMOL/L (3.5-5.1) Chloride Level 108 MMOL/L (98-107) H Carbon Dioxide Level 33 MMOL/L (21-32) H Anion Gap 5 mmol/L (5-15) Blood Urea Nitrogen 39 mg/dL (7-18) H Creatinine 0.7 MG/DL (0.55-1.30) Estimat Glomerular Filtration Rate > 60 mL/min (>60) Glucose Level 185 MG/DL (74-106) H Calcium Level 9.1 MG/DL (8.5-10.1) Phosphorus Level 2.8 MG/DL (2.5-4.9) Magnesium Level 2.1 MG/DL (1.8-2.4) Total Bilirubin 0.4 MG/DL (0.2-1.0) Aspartate Amino Transf (AST/SGOT) 28 U/L (15-37) Alanine Aminotransferase (ALT/SGPT) 47 U/L (12-78) Alkaline Phosphatase 123 U/L (46-116) H Pro-B-Type Natriuretic Peptide 4405 pg/mL (0-125) H Total Protein 4.9 G/DL (6.4-8.2) L Albumin 2.1 G/DL (3.4-5.0) L Globulin 2.8 g/dL Albumin/Globulin Ratio 0.7 (1.0-2.7) L Arterial Blood pH 7.475 (7.350-7.450) Arterial Blood Partial Pressure CO2 43.2 mmHg (35.0-45.0) Arterial Blood Partial Pressure O2 105.2 mmHg (75.0-100.0) H Arterial Blood HCO3 31.1 mmol/L (22.0-26.0) H Arterial Blood Oxygen Saturation 97.4 % (95-100) Arterial Blood Base Excess 6.8 (-2-2) H Joe Test Positive Current Medications Medications (Trade) Dose Ordered Sig/Amaris Route PRN Reason Start Time Stop Time Status Last Admin Dose Admin Acetaminophen (Tylenol) 650 mg Q4H PRN NG Mild Pain/Temp > 100.5 08/18/19 09:30 09/15/19 09:29 Amiodarone HCl (Cordarone) 200 mg DAILY NG 08/20/19 09:00 11/18/19 08:59 08/23/19 08:14 Atorvastatin Calcium (Lipitor) 40 mg BEDTIME NG 08/18/19 21:00 09/13/19 20:59 08/22/19 21:11 Chlorhexidine Gluconate (Kamila-Hex 2%) 1 applic DAILY@1999 TOPIC 08/18/19 20:00 09/17/19 19:59 08/22/19 21:10 Clopidogrel Bisulfate (Plavix) 75 mg DAILY NG 08/19/19 09:00 09/13/19 08:59 08/23/19 08:14 Colistimethate Sodium (Colistin *inhalation use only*) 75 mg Q12HR@10,22 INH 08/18/19 10:00 08/28/19 09:59 08/22/19 23:08 Heparin Sodium (Porcine) (Heparin 5000 units/ml) 5,000 units EVERY 12 HOURS SUBQ 08/21/19 09:00 10/05/19 08:59 08/23/19 08:16 Hydralazine HCl (Apresoline) 10 mg Q4H PRN IV For High Blood Pressure 08/21/19 10:50 11/19/19 10:49 Hydrocortisone (Solu-CORTEF) 50 mg Q24H IV 08/22/19 22:00 11/20/19 21:59 08/22/19 21:11 Olanzapine (ZyPREXA Zydis) 5 mg BEDTIME NG 08/21/19 21:00 10/05/19 20:59 08/22/19 21:11 Pantoprazole (Protonix) 40 mg EVERY 12 HOURS IVP 08/21/19 09:00 09/20/19 08:59 08/23/19 08:14 Saeed Goyal MD Aug 23, 2019 10:35
[2019-08-23] MEDS: Colistin for inhalation INH SCH ×2 (11:04→21:23)
--- NOTE | 2019-08-23 11:24 | Nephrology Progress Note ---
Assessment/Plan Problem List: (1) AUREA (acute kidney injury) Assessment: Serum creatinine rising (2) Cardiopulmonary arrest (3) Respiratory failure (4) Cardiomyopathy (5) Obesity (BMI 30.0-34.9) (6) DMII (diabetes mellitus, type 2) Assessment Acute Renal Failure : AUREA Most likely due to cardiorespiratory arrest and episode of hypotension. Patient also has cardiomyopathy with Ej Fx of 40 % on admission Obese : BMI 34.4 ? DM Other Dx (1) Cardiopulmonary arrest (2) Nosocomial pneumonia (3) Acute respiratory failure (4) COPD (chronic obstructive pulmonary disease) (5) Atrial fibrillation (6) Dementia with behavioral disturbance (7) CAD (coronary artery disease) Plan On D5 W IV fluids for hypernatremia pressors are off now patient's condition somewhat more stable In ICU He is intubated ventilator His blood pressure is more stable Overall he is still doing poorly Adjust blood pressure medications Stress dose of steroids which we will start tapering today Previously Monitor renal parameters. Serum creatinine improved Monitor urine output. Urine output improved. Avoid nephrotoxics. Weaning as possible. Remains intubated at this time. Correct electrolyte imbalances. Change tube feeding to Glucerna. Subjective ROS Limited/Unobtainable: No Objective Objective Last 24 Hour Vital Signs Date Time Temp Pulse Resp B/P (MAP) Pulse Ox O2 Delivery O2 Flow Rate FiO2 08/23/19 11:00 64 17 148/64 (92) 94 08/23/19 10:00 70 20 159/66 (97) 96 08/23/19 09:21 65 16 98 Mechanical Ventilator 40 70 16 40 08/23/19 09:20 98 08/23/19 09:00 63 12 157/68 (97) 95 08/23/19 08:00 66 08/23/19 08:00 Mechanical Ventilator Mechanical Ventilator 08/23/19 08:00 98.2 63 13 156/69 (98) 95 08/23/19 08:00 40 08/23/19 07:00 62 7 146/63 (90) 75 08/23/19 06:57 63 17 40 08/23/19 06:00 62 5 144/63 (90) 94 08/23/19 05:26 68 16 40 08/23/19 05:00 63 9 142/73 (96) 95 08/23/19 04:00 98.0 65 18 126/100 (109) 93 08/23/19 04:00 40 08/23/19 04:00 Mechanical Ventilator Mechanical Ventilator 08/23/19 03:46 64 17 40 08/23/19 03:14 56 08/23/19 03:00 59 13 134/63 (86) 95 08/23/19 02:00 82 21 146/106 (119) 93 08/23/19 01:39 60 16 40 08/23/19 01:00 64 20 119/58 (78) 95 08/23/19 00:00 Mechanical Ventilator Mechanical Ventilator 08/23/19 00:00 98.1 56 12 114/55 (74) 95 08/22/19 23:10 59 08/22/19 23:08 58 16 98 Mechanical Ventilator 40 60 16 40 08/22/19 23:00 56 12 114/48 (70) 95 08/22/19 22:00 57 18 116/50 (72) 93 08/22/19 21:00 54 11 127/51 (76) 97 08/22/19 20:00 Mechanical Ventilator Mechanical Ventilator 08/22/19 20:00 98.3 58 14 114/48 (70) 95 08/22/19 20:00 40 08/22/19 19:18 62 08/22/19 19:16 58 16 40 08/22/19 19:00 60 16 130/54 (79) 94 08/22/19 18:00 57 16 118/48 (71) 96 08/22/19 17:01 53 16 40 08/22/19 17:00 56 16 118/48 (71) 96 08/22/19 16:00 Mechanical Ventilator Mechanical Ventilator 08/22/19 16:00 63 08/22/19 16:00 98.3 62 17 130/53 (78) 97 08/22/19 16:00 40 08/22/19 15:00 63 18 135/59 (84) 96 08/22/19 14:59 60 16 40 08/22/19 14:00 57 16 120/50 (73) 96 08/22/19 13:09 61 16 40 08/22/19 13:00 58 16 126/61 (82) 97 08/22/19 12:00 98.5 68 21 151/60 (90) 97 08/22/19 12:00 40 08/22/19 12:00 Mechanical Ventilator Mechanical Ventilator 08/22/19 12:00 68 Intake and Output 08/22/19 08/23/19 19:00 07:00 Intake Total 1217.5 ml 695 ml Output Total 430 ml 505 ml Balance 787.5 ml 190 ml Free Water 30 ml IV Total 437.5 ml Tube Feeding 660 ml 605 ml Other 120 ml 60 ml Output Urine Total 430 ml 505 ml # Bowel Movements 2 Current Medications Medications (Trade) Dose Ordered Sig/Amaris Route PRN Reason Start Time Stop Time Status Last Admin Dose Admin Acetaminophen (Tylenol) 650 mg Q4H PRN NG Mild Pain/Temp > 100.5 08/18/19 09:30 09/15/19 09:29 Amiodarone HCl (Cordarone) 200 mg DAILY NG 08/20/19 09:00 11/18/19 08:59 08/23/19 08:14 Atorvastatin Calcium (Lipitor) 40 mg BEDTIME NG 08/18/19 21:00 09/13/19 20:59 08/22/19 21:11 Chlorhexidine Gluconate (Kamila-Hex 2%) 1 applic DAILY@1999 TOPIC 08/18/19 20:00 09/17/19 19:59 08/22/19 21:10 Clopidogrel Bisulfate (Plavix) 75 mg DAILY NG 08/19/19 09:00 09/13/19 08:59 08/23/19 08:14 Colistimethate Sodium (Colistin *inhalation use only*) 75 mg Q12HR@, INH 08/18/19 10:00 08/28/19 09:59 08/23/19 11:04 Heparin Sodium (Porcine) (Heparin 5000 units/ml) 5,000 units EVERY 12 HOURS SUBQ 08/21/19 09:00 10/05/19 08:59 08/23/19 08:16 Hydralazine HCl (Apresoline) 10 mg Q4H PRN IV For High Blood Pressure 08/21/19 10:50 11/19/19 10:49 Hydrocortisone (Solu-CORTEF) 50 mg Q24H IV 08/22/19 22:00 11/20/19 21:59 08/22/19 21:11 Olanzapine (ZyPREXA Zydis) 5 mg BEDTIME NG 08/21/19 21:00 10/05/19 20:59 08/22/19 21:11 Pantoprazole (Protonix) 40 mg EVERY 12 HOURS IVP 08/21/19 09:00 09/20/19 08:59 08/23/19 08:14 Laboratory Tests 08/22/19 23:00: Urine Osmolality 964H, Urine Random Sodium < 20L 08/23/19 04:00: White Blood Count 9.7, Red Blood Count 3.64L, Hemoglobin 11.5L, Hematocrit 33.8L , Mean Corpuscular Volume 93, Mean Corpuscular Hemoglobin 31.6H, Mean Corpuscular Hemoglobin Concent 34.0, Red Cell Distribution Width 13.0, Platelet Count 238, Mean Platelet Volume 5.8L, Neutrophils (%) (Auto) 83.3H, Lymphocytes (%) (Auto) 10.5L, Monocytes (%) (Auto) 4.4, Eosinophils (%) (Auto) 1.7, Basophils (%) (Auto) 0.1, Sodium Level 146H, Potassium Level 4.1, Chloride Level 108H, Carbon Dioxide Level 33H, Anion Gap 5, Blood Urea Nitrogen 39H, Creatinine 0.7, Estimat Glomerular Filtration Rate > 60, Glucose Level 185H, Calcium Level 9.1, Phosphorus Level 2.8, Magnesium Level 2.1, Total Bilirubin 0.4, Aspartate Amino Transf (AST/SGOT) 28, Alanine Aminotransferase (ALT/SGPT) 47, Alkaline Phosphatase 123H, Pro-B-Type Natriuretic Peptide 4405H, Total Protein 4.9L, Albumin 2.1L, Globulin 2.8, Albumin/Globulin Ratio 0.7L 08/23/19 07:26: Arterial Blood pH 7.475H, Arterial Blood Partial Pressure CO2 43.2, Arterial Blood Partial Pressure O2 105.2H, Arterial Blood HCO3 31.1H, Arterial Blood Oxygen Saturation 97.4, Arterial Blood Base Excess 6.8H, Joe Test Positive Height (Feet): 5 Height (Inches): 6.00 Weight (Pounds): 205 General Appearance: no apparent distress EENT: other - Remains intubated and vented Respiratory/Chest: decreased breath sounds Abdomen: distended Objective no change Yunior Sexton MD Aug 23, 2019 11:24
--- NOTE | 2019-08-23 18:59 | Progress Note ---
DATE: 08/23/2019 CARDIOLOGY PROGRESS NOTE SUBJECTIVE: The patient remains on ventilator support. Status post new respiratory failure several days ago due to acute on chronic respiratory acidosis and secondary bradycardia. Blood pressure parameters have stabilized. He continues to be unweanable due to apnea. He is off pressors, but requires intravenous fluids due to multiple electrolyte disturbances. He remains in the intensive care unit. Condition remains critical and prognosis guarded. OBJECTIVE: VITAL SIGNS: Blood pressure 148/64, pulse 64, and respirations 17. Afebrile. Monitor, sinus bradyarrhythmia with bundle-branch block. No pauses. LUNGS: Coarse breath sounds. Thin secretions from endotracheal tube. CARDIAC: Regular rhythm and rate. Normal S1, paradoxically split S2. No audible murmur. ABDOMEN: Soft, slightly distended. EXTREMITIES: Trace edema. LABORATORY DATA: White count 9.7 and hemoglobin 11.5. Pro-natriuretic peptide around 4400, unchanged. BUN 39 and creatinine 0.7. Potassium 4.1, sodium 146, and bicarb 33. ABG, 7.47, pCO2 43, and pO2 105. Urine osmolality is high. Urine sodium is less than 20. IMPRESSION AND PLAN: 1. Needs additional hydration. 2. No role for diuresis at this moment. 3. Continue weaning efforts. 4. Antimicrobials. 5. Off amiodarone due to bradyarrhythmias. 6. P.r.n. antihypertensives for now using hydralazine. 7. Continue intensive care unit care. Saeed Sim M.D. DR: YESENIA JOB#: [id number] CC:
--- NOTE | 2019-08-23 20:04 | Surgery Progress Note ---
Surgery Progress Note Subjective Procedure Performed Right femoral triple-lumen central venous catheter insertion Additional Comments Patient seen examined bedside. More alert and awake. Opens eyes to command. Does not follow any other commands. Labs noted. Exam stable. Line okay. Tolerating tube feeds at goal. Objective Last 24 Hour Vital Signs Date Time Temp Pulse Resp B/P (MAP) Pulse Ox O2 Delivery O2 Flow Rate FiO2 08/23/19 19:00 61 16 40 08/23/19 19:00 62 16 131/64 (86) 96 08/23/19 18:00 64 15 145/68 (93) 97 08/23/19 17:29 63 16 40 08/23/19 17:00 98.2 63 16 138/57 (84) 96 08/23/19 16:00 64 08/23/19 16:00 64 16 144/61 (88) 95 08/23/19 16:00 Mechanical Ventilator Mechanical Ventilator 08/23/19 16:00 40 08/23/19 15:00 65 16 139/56 (83) 95 08/23/19 14:58 65 18 40 08/23/19 14:00 77 20 163/95 (117) 96 08/23/19 13:16 68 18 40 08/23/19 13:00 65 21 147/67 (93) 95 08/23/19 12:00 65 08/23/19 12:00 Mechanical Ventilator Mechanical Ventilator 08/23/19 12:00 40 08/23/19 12:00 98.1 65 17 149/64 (92) 95 08/23/19 11:26 63 16 40 08/23/19 11:00 64 17 148/64 (92) 94 08/23/19 10:00 70 20 159/66 (97) 96 08/23/19 09:21 65 16 98 Mechanical Ventilator 40 70 16 40 08/23/19 09:20 98 08/23/19 09:00 63 12 157/68 (97) 95 08/23/19 08:00 66 08/23/19 08:00 Mechanical Ventilator Mechanical Ventilator 08/23/19 08:00 98.2 63 13 156/69 (98) 95 08/23/19 08:00 40 08/23/19 07:00 62 7 146/63 (90) 75 08/23/19 06:57 63 17 40 08/23/19 06:00 62 5 144/63 (90) 94 08/23/19 05:26 68 16 40 08/23/19 05:00 63 9 142/73 (96) 95 08/23/19 04:00 98.0 65 18 126/100 (109) 93 08/23/19 04:00 40 08/23/19 04:00 Mechanical Ventilator Mechanical Ventilator 08/23/19 03:46 64 17 40 08/23/19 03:14 56 08/23/19 03:00 59 13 134/63 (86) 95 08/23/19 02:00 82 21 146/106 (119) 93 08/23/19 01:39 60 16 40 08/23/19 01:00 64 20 119/58 (78) 95 08/23/19 00:00 Mechanical Ventilator Mechanical Ventilator 08/23/19 00:00 98.1 56 12 114/55 (74) 95 08/22/19 23:10 59 08/22/19 23:08 58 16 98 Mechanical Ventilator 40 60 16 40 08/22/19 23:00 56 12 114/48 (70) 95 08/22/19 22:00 57 18 116/50 (72) 93 08/22/19 21:00 54 11 127/51 (76) 97 I&O Intake and Output 08/22/19 08/23/19 19:00 07:00 Intake Total 1217.5 ml 695 ml Output Total 430 ml 505 ml Balance 787.5 ml 190 ml Free Water 30 ml IV Total 437.5 ml Tube Feeding 660 ml 605 ml Other 120 ml 60 ml Output Urine Total 430 ml 505 ml # Bowel Movements 2 Dressing: dry Wound: clean Cardiovascular: RSR Respiratory: clear, decreased breath sounds Abdomen: soft, flat, non-tender, present bowel sounds Extremities: no tenderness, no cyanosis Laboratory Tests Test 08/22/19 23:00 08/23/19 04:00 08/23/19 07:26 Urine Osmolality 964 mOsm/kg (429-449) H Urine Random Sodium < 20 mmol/L (20-110) L White Blood Count 9.7 K/UL (4.8-10.8) Red Blood Count 3.64 M/UL (4.70-6.10) L Hemoglobin 11.5 G/DL (14.2-18.0) L Hematocrit 33.8 % (42.0-52.0) L Mean Corpuscular Volume 93 FL (80-99) Mean Corpuscular Hemoglobin 31.6 PG (27.0-31.0) H Mean Corpuscular Hemoglobin Concent 34.0 G/DL (32.0-36.0) Red Cell Distribution Width 13.0 % (11.6-14.8) Platelet Count 238 K/UL (150-450) Mean Platelet Volume 5.8 FL (6.5-10.1) L Neutrophils (%) (Auto) 83.3 % (45.0-75.0) H Lymphocytes (%) (Auto) 10.5 % (20.0-45.0) L Monocytes (%) (Auto) 4.4 % (1.0-10.0) Eosinophils (%) (Auto) 1.7 % (0.0-3.0) Basophils (%) (Auto) 0.1 % (0.0-2.0) Sodium Level 146 MMOL/L (136-145) H Potassium Level 4.1 MMOL/L (3.5-5.1) Chloride Level 108 MMOL/L (98-107) H Carbon Dioxide Level 33 MMOL/L (21-32) H Anion Gap 5 mmol/L (5-15) Blood Urea Nitrogen 39 mg/dL (7-18) H Creatinine 0.7 MG/DL (0.55-1.30) Estimat Glomerular Filtration Rate > 60 mL/min (>60) Glucose Level 185 MG/DL (74-106) H Calcium Level 9.1 MG/DL (8.5-10.1) Phosphorus Level 2.8 MG/DL (2.5-4.9) Magnesium Level 2.1 MG/DL (1.8-2.4) Total Bilirubin 0.4 MG/DL (0.2-1.0) Aspartate Amino Transf (AST/SGOT) 28 U/L (15-37) Alanine Aminotransferase (ALT/SGPT) 47 U/L (12-78) Alkaline Phosphatase 123 U/L (46-116) H Pro-B-Type Natriuretic Peptide 4405 pg/mL (0-125) H Total Protein 4.9 G/DL (6.4-8.2) L Albumin 2.1 G/DL (3.4-5.0) L Globulin 2.8 g/dL Albumin/Globulin Ratio 0.7 (1.0-2.7) L Arterial Blood pH 7.475 (7.350-7.450) Arterial Blood Partial Pressure CO2 43.2 mmHg (35.0-45.0) Arterial Blood Partial Pressure O2 105.2 mmHg (75.0-100.0) H Arterial Blood HCO3 31.1 mmol/L (22.0-26.0) H Arterial Blood Oxygen Saturation 97.4 % (95-100) Arterial Blood Base Excess 6.8 (-2-2) H Joe Test Positive Plan Problems: (1) Nosocomial pneumonia (2) AUREA (acute kidney injury) (3) Cardiomyopathy (4) Obesity (BMI 30.0-34.9) (5) DMII (diabetes mellitus, type 2) (6) Cardiac LV ejection fraction 40% (7) Pulmonary edema (8) Cardiopulmonary arrest Assessment & Plan: Cardiopulmonary arrest septic requiring urgent emergency line placement for pressors and fluids and meds Please see procedure report Full examination performed no other surgical issues found at this time etiology unknown likely surgical in nature Antibiotics fluids Pressors Vent off pressors line okay labs reviewed cont tube feeds wean ivf leave line obtain peripheral and will plan d/c line soon (9) Respiratory failure (10) History of hypertension (11) COPD (chronic obstructive pulmonary disease) (12) CAD (coronary artery disease) (13) Atrial fibrillation (14) Dementia with behavioral disturbance (15) Upper respiratory infection (16) Acute respiratory failure (17) Dyspnea (18) UTI (urinary tract infection) Prosper Hummel Aug 23, 2019 20:04
[2019-08-23] MEDS: Dyna-Hex 2% Top Sol 2oz TOPIC SCH (20:37)
[2019-08-23] MEDS: ZyPREXA Zydis 5mg tab NG SCH (20:38)
[2019-08-23] MEDS: Atorvastatin 20mg tab NG SCH (20:38)
[2019-08-24] VITALS (24 sets, daily range): BP systolic 107–153; BP diastolic 42–85
[2019-08-24 06:09] LABS: BASOPHILS % (AUTO) 0.4 % (0.0-2.0); EOSINOPHILS % (AUTO) 5.4 % (0.0-3.0); HEMATOCRIT 30.8 % (42.0-52.0); HEMOGLOBIN 10.4 G/DL (14.2-18.0); LYMPHOCYTES % (AUTO) 11.1 % (20.0-45.0); MEAN CORPUSCULAR VOLUME 92 FL (80-99); NEUTROPHILS % (AUTO) 76.1 % (45.0-75.0); PLATELET COUNT 193 K/UL (150-450); RED BLOOD COUNT 3.34 M/UL (4.70-6.10); RED CELL DISTRIBUTION WIDTH 12.8 % (11.6-14.8); WHITE BLOOD COUNT 7.8 K/UL (4.8-10.8)
[2019-08-24 06:44] LABS: ANION GAP 5 mmol/L (5-15); BLOOD UREA NITROGEN 38 mg/dL (7-18); CALCIUM 8.2 MG/DL (8.5-10.1); CARBON DIOXIDE 32 MMOL/L (21-32); CHLORIDE 106 MMOL/L (98-107); CREATININE 0.7 MG/DL (0.55-1.30); POTASSIUM 3.4 MMOL/L (3.5-5.1); SODIUM 143 MMOL/L (136-145)
[2019-08-24] MEDS: Amiodarone 200mg tab NG SCH (09:02)
[2019-08-24] MEDS: Pantoprazole Inj IVP SCH ×2 (09:02→20:41)
[2019-08-24] MEDS: Heparin 5000 units/ml inj SUBQ SCH ×2 (09:04→20:42)
[2019-08-24] MEDS ORDERED: Sterile Water Irrig 2000ml IRRIG ONE (09:50)
[2019-08-24] MEDS ORDERED: NS 275ml ONE (09:51)
[2019-08-24] MEDS ORDERED: Tubing IV Secondary IV ONE (09:51)
[2019-08-24] MEDS: Colistin for inhalation INH SCH ×2 (10:19→21:08)
--- NOTE | 2019-08-24 10:33 | Nephrology Progress Note ---
Assessment/Plan Problem List: (1) AUREA (acute kidney injury) Assessment: Serum creatinine rising (2) Cardiopulmonary arrest (3) Respiratory failure (4) Cardiomyopathy (5) Obesity (BMI 30.0-34.9) (6) DMII (diabetes mellitus, type 2) Assessment Acute Renal Failure : AUREA Most likely due to cardiorespiratory arrest and episode of hypotension. Patient also has cardiomyopathy with Ej Fx of 40 % on admission Obese : BMI 34.4 ? DM Other Dx (1) Cardiopulmonary arrest (2) Nosocomial pneumonia (3) Acute respiratory failure (4) COPD (chronic obstructive pulmonary disease) (5) Atrial fibrillation (6) Dementia with behavioral disturbance (7) CAD (coronary artery disease) Plan On D5 W IV fluids for hypernatremia pressors are off now patient's condition somewhat more stable In ICU He is intubated ventilator His blood pressure is more stable Overall he is still doing poorly Adjust blood pressure medications Stress dose of steroids which we will start tapering today Previously Monitor renal parameters. Serum creatinine improved Monitor urine output. Urine output improved. Avoid nephrotoxics. Weaning as possible. Remains intubated at this time. Correct electrolyte imbalances. Change tube feeding to Glucerna. Subjective ROS Limited/Unobtainable: Yes Objective Objective Last 24 Hour Vital Signs Date Time Temp Pulse Resp B/P (MAP) Pulse Ox O2 Delivery O2 Flow Rate FiO2 08/24/19 08:30 98 08/24/19 08:30 67 16 40 40 08/24/19 07:00 71 15 108/50 (69) 97 08/24/19 06:43 71 16 40 08/24/19 06:11 83 18 08/24/19 06:00 72 15 109/42 (64) 98 08/24/19 05:06 67 16 40 08/24/19 05:00 79 22 131/69 (89) 95 08/24/19 04:00 40 08/24/19 04:00 98.3 63 15 119/59 (79) 97 08/24/19 04:00 Mechanical Ventilator Mechanical Ventilator 08/24/19 04:00 67 08/24/19 03:00 79 13 112/60 (77) 99 08/24/19 02:55 78 16 40 08/24/19 02:00 94 20 122/48 (72) 98 08/24/19 01:21 81 16 40 3/22/20 01:00 84 0 109/55 (73) 97 08/24/19 00:00 66 08/24/19 00:00 Mechanical Ventilator Mechanical Ventilator 08/24/19 00:00 40 08/24/19 00:00 98.5 73 20 137/58 (84) 98 08/23/19 23:18 70 16 40 08/23/19 23:00 61 15 127/58 (81) 95 08/23/19 22:00 59 16 118/51 (73) 96 08/23/19 21:38 60 16 97 Mechanical Ventilator 40 08/23/19 21:23 57 16 Mechanical Ventilator 40 40 08/23/19 21:00 59 17 126/46 (72) 97 08/23/19 20:00 Mechanical Ventilator Mechanical Ventilator 08/23/19 20:00 58 08/23/19 20:00 40 08/23/19 20:00 98.2 59 16 129/55 (79) 96 08/23/19 19:00 61 16 40 08/23/19 19:00 62 16 131/64 (86) 96 08/23/19 18:00 64 15 145/68 (93) 97 08/23/19 17:29 63 16 40 08/23/19 17:00 98.2 63 16 138/57 (84) 96 08/23/19 16:00 64 08/23/19 16:00 64 16 144/61 (88) 95 08/23/19 16:00 Mechanical Ventilator Mechanical Ventilator 08/23/19 16:00 40 08/23/19 15:00 65 16 139/56 (83) 95 08/23/19 14:58 65 18 40 08/23/19 14:00 77 20 163/95 (117) 96 08/23/19 13:16 68 18 40 08/23/19 13:00 65 21 147/67 (93) 95 08/23/19 12:00 65 08/23/19 12:00 Mechanical Ventilator Mechanical Ventilator 08/23/19 12:00 40 08/23/19 12:00 98.1 65 17 149/64 (92) 95 08/23/19 11:26 63 16 40 08/23/19 11:00 64 17 148/64 (92) 94 Intake and Output 08/23/19 08/24/19 19:00 07:00 Intake Total 760 ml 1920 ml Output Total 405 ml 245 ml Balance 355 ml 1675 ml IV Total 1200 ml Tube Feeding 660 ml 660 ml Other 100 ml 60 ml Output Urine Total 405 ml 245 ml # Bowel Movements 2 Laboratory Tests 08/24/19 05:00: White Blood Count 7.8, Red Blood Count 3.34L, Hemoglobin 10.4L, Hematocrit 30.8L , Mean Corpuscular Volume 92, Mean Corpuscular Hemoglobin 31.2H, Mean Corpuscular Hemoglobin Concent 33.7, Red Cell Distribution Width 12.8, Platelet Count 193, Mean Platelet Volume 5.7L, Neutrophils (%) (Auto) 76.1H, Lymphocytes (%) (Auto) 11.1L, Monocytes (%) (Auto) 7.0, Eosinophils (%) (Auto) 5.4H, Basophils (%) (Auto) 0.4, Sodium Level 143, Potassium Level 3.4L, Chloride Level 106, Carbon Dioxide Level 32, Anion Gap 5, Blood Urea Nitrogen 38H, Creatinine 0.7, Estimat Glomerular Filtration Rate > 60, Glucose Level 154H, Calcium Level 8.2L 08/24/19 10:00: Arterial Blood pH 7.409, Arterial Blood Partial Pressure CO2 53.0H, Arterial Blood Partial Pressure O2 211.5H, Arterial Blood HCO3 32.8H, Arterial Blood Oxygen Saturation 98.7, Arterial Blood Base Excess 6.9H, Joe Test Positive Height (Feet): 5 Height (Inches): 6.00 Weight (Pounds): 205 General Appearance: no apparent distress Cardiovascular: normal rate Respiratory/Chest: decreased breath sounds Abdomen: distended Objective no change Yunior Sexton MD Aug 24, 2019 10:32
--- NOTE | 2019-08-24 15:06 | Surgery Progress Note ---
Surgery Progress Note Subjective Procedure Performed Right femoral triple-lumen central venous catheter insertion Additional Comments Still ill appearing in the ICU on ventilator support. Labs noted. Imaging reviewed. We will plan for tracheostomy this week. Objective Last 24 Hour Vital Signs Date Time Temp Pulse Resp B/P (MAP) Pulse Ox O2 Delivery O2 Flow Rate FiO2 08/24/19 15:01 74 16 30 08/24/19 12:54 66 16 30 08/24/19 12:00 67 08/24/19 10:30 66 17 100 Mechanical Ventilator 36.0 30 70 18 30 08/24/19 10:00 69 17 146/52 (83) 100 08/24/19 09:00 67 15 132/59 (83) 89 08/24/19 08:30 98 08/24/19 08:30 67 16 40 40 08/24/19 08:00 40 08/24/19 08:00 98.5 74 15 107/47 (67) 97 08/24/19 08:00 67 08/24/19 08:00 Mechanical Ventilator Mechanical Ventilator 08/24/19 07:00 71 15 108/50 (69) 97 08/24/19 06:43 71 16 40 08/24/19 06:11 83 18 08/24/19 06:00 72 15 109/42 (64) 98 08/24/19 05:06 67 16 40 08/24/19 05:00 79 22 131/69 (89) 95 08/24/19 04:00 40 08/24/19 04:00 98.3 63 15 119/59 (79) 97 08/24/19 04:00 Mechanical Ventilator Mechanical Ventilator 08/24/19 04:00 67 08/24/19 03:00 79 13 112/60 (77) 99 08/24/19 02:55 78 16 40 08/24/19 02:00 94 20 122/48 (72) 98 08/24/19 01:21 81 16 40 08/24/19 01:00 84 0 109/55 (73) 97 08/24/19 00:00 66 08/24/19 00:00 Mechanical Ventilator Mechanical Ventilator 08/24/19 00:00 40 08/24/19 00:00 98.5 73 20 137/58 (84) 98 08/23/19 23:18 70 16 40 08/23/19 23:00 61 15 127/58 (81) 95 08/23/19 22:00 59 16 118/51 (73) 96 08/23/19 21:38 60 16 97 Mechanical Ventilator 40 08/23/19 21:23 57 16 Mechanical Ventilator 40 40 08/23/19 21:00 59 17 126/46 (72) 97 08/23/19 20:00 Mechanical Ventilator Mechanical Ventilator 08/23/19 20:00 58 08/23/19 20:00 40 08/23/19 20:00 98.2 59 16 129/55 (79) 96 08/23/19 19:00 61 16 40 08/23/19 19:00 62 16 131/64 (86) 96 08/23/19 18:00 64 15 145/68 (93) 97 08/23/19 17:29 63 16 40 08/23/19 17:00 98.2 63 16 138/57 (84) 96 08/23/19 16:00 64 08/23/19 16:00 64 16 144/61 (88) 95 08/23/19 16:00 Mechanical Ventilator Mechanical Ventilator 08/23/19 16:00 40 I&O Intake and Output 08/23/19 08/24/19 19:00 07:00 Intake Total 760 ml 1920 ml Output Total 405 ml 245 ml Balance 355 ml 1675 ml IV Total 1200 ml Tube Feeding 660 ml 660 ml Other 100 ml 60 ml Output Urine Total 405 ml 245 ml # Bowel Movements 2 Dressing: other Wound: other Drains: other Cardiovascular: RSR Respiratory: decreased breath sounds Abdomen: soft, non-tender, present bowel sounds Extremities: no cyanosis Laboratory Tests Test 08/24/19 05:00 08/24/19 10:00 White Blood Count 7.8 K/UL (4.8-10.8) Red Blood Count 3.34 M/UL (4.70-6.10) L Hemoglobin 10.4 G/DL (14.2-18.0) L Hematocrit 30.8 % (42.0-52.0) L Mean Corpuscular Volume 92 FL (80-99) Mean Corpuscular Hemoglobin 31.2 PG (27.0-31.0) H Mean Corpuscular Hemoglobin Concent 33.7 G/DL (32.0-36.0) Red Cell Distribution Width 12.8 % (11.6-14.8) Platelet Count 193 K/UL (150-450) Mean Platelet Volume 5.7 FL (6.5-10.1) L Neutrophils (%) (Auto) 76.1 % (45.0-75.0) H Lymphocytes (%) (Auto) 11.1 % (20.0-45.0) L Monocytes (%) (Auto) 7.0 % (1.0-10.0) Eosinophils (%) (Auto) 5.4 % (0.0-3.0) H Basophils (%) (Auto) 0.4 % (0.0-2.0) Sodium Level 143 MMOL/L (136-145) Potassium Level 3.4 MMOL/L (3.5-5.1) L Chloride Level 106 MMOL/L (98-107) Carbon Dioxide Level 32 MMOL/L (21-32) Anion Gap 5 mmol/L (5-15) Blood Urea Nitrogen 38 mg/dL (7-18) H Creatinine 0.7 MG/DL (0.55-1.30) Estimat Glomerular Filtration Rate > 60 mL/min (>60) Glucose Level 154 MG/DL (74-106) H Calcium Level 8.2 MG/DL (8.5-10.1) L Arterial Blood pH 7.409 (7.350-7.450) Arterial Blood Partial Pressure CO2 53.0 mmHg (35.0-45.0) H Arterial Blood Partial Pressure O2 211.5 mmHg (75.0-100.0) H Arterial Blood HCO3 32.8 mmol/L (22.0-26.0) H Arterial Blood Oxygen Saturation 98.7 % (95-100) Arterial Blood Base Excess 6.9 (-2-2) H Joe Test Positive Plan Problems: (1) Nosocomial pneumonia (2) AUREA (acute kidney injury) (3) Cardiomyopathy (4) Obesity (BMI 30.0-34.9) (5) DMII (diabetes mellitus, type 2) (6) Cardiac LV ejection fraction 40% (7) Pulmonary edema (8) Cardiopulmonary arrest Assessment & Plan: Cardiopulmonary arrest septic requiring urgent emergency line placement for pressors and fluids and meds Please see procedure report Full examination performed no other surgical issues found at this time etiology unknown likely surgical in nature Antibiotics fluids Pressors Vent off pressors line okay labs reviewed cont tube feeds wean ivf Unable to wean from ventilator. Labs noted ABG noted imaging reviewed We will plan for tracheostomy this week (9) Respiratory failure (10) History of hypertension (11) COPD (chronic obstructive pulmonary disease) (12) CAD (coronary artery disease) (13) Atrial fibrillation (14) Dementia with behavioral disturbance (15) Upper respiratory infection (16) Acute respiratory failure (17) Dyspnea (18) UTI (urinary tract infection) Prosper Hummel Aug 24, 2019 15:06
--- NOTE | 2019-08-24 19:29 | Progress Note ---
DATE: 08/24/2019 SUBJECTIVE: The patient remains on ventilator support. Weaning efforts ongoing. Apnea remains a problem. Monitored rhythm sinus is sinus and bradycardia with bundle-branch block. OBJECTIVE: VITAL SIGNS: Blood pressure 108/50, heart rate 71, respiratory 15. LUNGS: A few rhonchi. CARDIAC: Regular rhythm, rate. Normal S1, paradoxically split S2. No new murmur. ABDOMEN: Soft and nontender. EXTREMITIES: With trace edema. LABORATORY DATA: White count 7.8, hemoglobin to 10.4. ABG, 7.41, 53, 211. Sodium 143, potassium 3.4, bicarbonate 32, BUN 38, creatinine 0.7. IMPRESSION: 1. Respiratory failure. 2. COPD. 3. Status post cardiopulmonary arrest. 4. Hypokalemia. 5. Paroxysmal atrial fibrillation. 6. Sinus bradycardia. 7. Ischemic cardiomyopathy. 8. Acute on chronic systolic and diastolic congestive heart failure. PLAN: 1. Replace potassium. 2. Weaning efforts. 3. Keep on dry side "with and diuretics." 4. Off amiodarone for now because of bradycardia. 5. Consider anticoagulation for sustained recurring atrial fibrillation. Saeed Sim M.D. DR: GIN JOB#: [id number] CC:
[2019-08-24] MEDS ORDERED: Lidocaine 1% Plain 30 ml INJ PRN (19:45)
[2019-08-24] MEDS ORDERED: Heparin1,000 units/500ml Premix(Conc:2 units/ml) IV PRN (19:45)
[2019-08-24] MEDS ORDERED: Dyna-Hex 2% Top Sol 2oz TOPIC SCH (20:00)
[2019-08-24] MEDS: Atorvastatin 20mg tab NG SCH (20:41)
[2019-08-24] MEDS: Dyna-Hex 2% Top Sol 2oz TOPIC SCH (20:41)
[2019-08-24] MEDS: ZyPREXA Zydis 5mg tab NG SCH (20:41)
[2019-08-25] VITALS (24 sets, daily range): BP systolic 120–182; BP diastolic 44–83
--- NOTE | 2019-08-25 00:15 | Progress Note ---
DATE: 08/24/2019 SUBJECTIVE: The patient is afebrile and hemodynamically stable. PHYSICAL EXAMINATION: VITAL SIGNS: Blood pressure 153/54, his pulse is 70, respirations 17, and temperature is 98.5. HEENT: Eyes were normal. ENT, mucous membranes were moist and intact. NECK: Supple with no JVD without lymph nodes. LUNGS: Clear. HEART: Normal sounds with regular beats. ABDOMEN: Soft and nontender with normal bowel sounds. EXTREMITIES: Warm without cyanosis, clubbing, or edema. LABORATORY AND DIAGNOSTIC DATA: His hemoglobin is 10.4, hematocrit is 30.8 with MCV of 92, WBC of 7.8 and platelets are 193,000. His BUN and creatinine are 38 and 0.7 respectively. His sodium is 143, potassium 3.4, chloride 108, CO2 is 32, and his calcium is 8.2. His chest x-ray from yesterday shows worsening of congestive heart failure. IMPRESSION: The patient is hemodynamically stable. Decision regarding his tracheostomy yet. The patient will need central line, which is being now approved. Repeat laboratory tests will be done in the a.m. Modesta Mulligan M.D. DR: ELIS JOB#: [id number] CC:
[2019-08-25 06:10] LABS: BASOPHILS % (AUTO) 0.5 % (0.0-2.0); EOSINOPHILS % (AUTO) 3.8 % (0.0-3.0); HEMATOCRIT 31.3 % (42.0-52.0); HEMOGLOBIN 10.8 G/DL (14.2-18.0); LYMPHOCYTES % (AUTO) 12.6 % (20.0-45.0); MEAN CORPUSCULAR VOLUME 92 FL (80-99); MONOCYTES % (AUTO) 6.5 % (1.0-10.0); NEUTROPHILS % (AUTO) 76.6 % (45.0-75.0); PLATELET COUNT 201 K/UL (150-450); RED BLOOD COUNT 3.39 M/UL (4.70-6.10); RED CELL DISTRIBUTION WIDTH 13.2 % (11.6-14.8); WHITE BLOOD COUNT 10.3 K/UL (4.8-10.8)
[2019-08-25 06:32] LABS: ANION GAP 5 mmol/L (5-15); BLOOD UREA NITROGEN 30 mg/dL (7-18); CALCIUM 8.3 MG/DL (8.5-10.1); CARBON DIOXIDE 33 MMOL/L (21-32); CHLORIDE 103 MMOL/L (98-107); CREATININE 0.7 MG/DL (0.55-1.30); POTASSIUM 3.9 MMOL/L (3.5-5.1); SODIUM 140 MMOL/L (136-145)
[2019-08-25] MEDS: Pantoprazole Inj IVP SCH ×2 (08:13→20:57)
[2019-08-25] MEDS: Amiodarone 200mg tab NG SCH (08:13)
[2019-08-25] MEDS: Heparin 5000 units/ml inj SUBQ SCH ×2 (09:00→21:01)
--- NOTE | 2019-08-25 09:35 | Infectious Diseases Prog Note ---
Assessment/Plan Assessment/Plan ASSESSMENT: The patient is a 79-year-old male with: Leukocytosis; Sp Fever , sp Sepsis, Sp Pneumonia ( probable asp), Sp RX -08/13 Scx: MDR-ACB (Tygacil LANI: 4) - CXR: 1. Streaky opacities in the right lower lung may represent atelectasis versus scarring. Left basilar opacity may represent atelectasis. Component of pneumonia is not excluded. Pulmonary vasculature congestion. -08/01 ucx NTD - sp cx: nl anastacio Urinary tract infection, SP Rx 08/17 Sp code blue and intubation 07/31 Sp Code blue and intubation , sp extubation 08/12 , Hyperlipidemia. COPD. History of GERD. History of encephalopathy. History of CAD/PR. History of cardiomyopathy. Hypertension. PLAN: cont Colistin INH (MDR-ACB) # 03/13-14 - 08/22/19 SP Merrem - 08/14 SP IV Vanco # 4 -08/07 SP Zosyn and IV Vanco # 7/ , -08/01 SP Rocephin day # 10 - 07/31 sp sp Dox # 6 Monitor CBC. Monitor BMP. Monitor chest x-ray cont ICU Support discussed with RN Subjective Allergies: Coded Allergies: No Known Allergies (Unverified , 06/03/17) Subjective afebrile on vent in ICU Objective Vital Signs Last 24 Hour Vital Signs Date Time Temp Pulse Resp B/P (MAP) Pulse Ox O2 Delivery O2 Flow Rate FiO2 08/25/19 09:00 90 23 170/70 (103) 95 08/25/19 08:00 98.8 71 19 172/83 (112) 98 08/25/19 08:00 30 08/25/19 08:00 Mechanical Ventilator Mechanical Ventilator 08/25/19 07:58 98 08/25/19 07:29 69 16 30 30 08/25/19 07:18 68 08/25/19 07:00 70 22 148/57 (87) 98 08/25/19 06:30 72 20 08/25/19 06:00 70 18 139/53 (81) 96 08/25/19 05:10 72 17 30 08/25/19 05:00 66 16 144/55 (84) 97 08/25/19 04:00 Mechanical Ventilator Mechanical Ventilator 08/25/19 04:00 98.5 63 15 120/51 (74) 96 08/25/19 04:00 62 08/25/19 04:00 30 08/25/19 03:20 65 16 30 08/25/19 03:00 63 16 121/47 (71) 95 08/25/19 02:00 70 19 148/60 (89) 96 08/25/19 01:12 70 16 30 08/25/19 01:00 71 15 125/55 (78) 96 08/25/19 00:00 98.3 69 16 132/48 (76) 96 08/25/19 00:00 Mechanical Ventilator Mechanical Ventilator 08/25/19 00:00 70 08/25/19 00:00 30 08/24/19 23:00 70 20 134/52 (79) 96 08/24/19 22:58 70 16 30 08/24/19 22:00 70 17 153/54 (87) 98 08/24/19 21:23 68 19 99 Mechanical Ventilator 30 08/24/19 21:08 68 16 Mechanical Ventilator 30 30 08/24/19 21:00 68 17 135/53 (80) 91 08/24/19 20:00 98.5 67 14 134/46 (75) 96 08/24/19 20:00 73 08/24/19 20:00 Mechanical Ventilator Mechanical Ventilator 08/24/19 20:00 30 08/24/19 19:00 69 16 136/85 (102) 95 08/24/19 18:57 71 16 30 08/24/19 18:00 62 14 144/47 (79) 96 08/24/19 17:00 68 15 126/44 (71) 95 08/24/19 16:49 67 16 30 08/24/19 16:00 30 08/24/19 16:00 98.6 63 16 121/49 (73) 95 08/24/19 16:00 68 08/24/19 16:00 Mechanical Ventilator Mechanical Ventilator 08/24/19 15:01 74 16 30 08/24/19 15:00 71 14 123/47 (72) 96 08/24/19 14:00 60 15 121/47 (71) 97 08/24/19 14:00 30 08/24/19 13:00 65 12 128/57 (80) 96 08/24/19 12:54 66 16 30 08/24/19 12:00 Mechanical Ventilator Mechanical Ventilator 08/24/19 12:00 30 08/24/19 12:00 67 08/24/19 12:00 98.4 65 14 121/55 (77) 97 08/24/19 11:00 66 22 131/57 (81) 97 08/24/19 10:30 66 17 100 Mechanical Ventilator 36.0 30 70 18 30 08/24/19 10:00 69 17 146/52 (83) 100 Height (Feet): 5 Height (Inches): 6.00 Weight (Pounds): 205 HEENT: anicteric Respiratory/Chest: normal breath sounds Cardiovascular: regular rhythm Abdomen: no organomegaly Laboratory Tests Test 08/24/19 10:00 08/25/19 04:00 Arterial Blood pH 7.409 (7.350-7.450) Arterial Blood Partial Pressure CO2 53.0 mmHg (35.0-45.0) H Arterial Blood Partial Pressure O2 211.5 mmHg (75.0-100.0) H Arterial Blood HCO3 32.8 mmol/L (22.0-26.0) H Arterial Blood Oxygen Saturation 98.7 % (95-100) Arterial Blood Base Excess 6.9 (-2-2) H Joe Test Positive White Blood Count 10.3 K/UL (4.8-10.8) Red Blood Count 3.39 M/UL (4.70-6.10) L Hemoglobin 10.8 G/DL (14.2-18.0) L Hematocrit 31.3 % (42.0-52.0) L Mean Corpuscular Volume 92 FL (80-99) Mean Corpuscular Hemoglobin 32.0 PG (27.0-31.0) H Mean Corpuscular Hemoglobin Concent 34.6 G/DL (32.0-36.0) Red Cell Distribution Width 13.2 % (11.6-14.8) Platelet Count 201 K/UL (150-450) Mean Platelet Volume 5.6 FL (6.5-10.1) L Neutrophils (%) (Auto) 76.6 % (45.0-75.0) H Lymphocytes (%) (Auto) 12.6 % (20.0-45.0) L Monocytes (%) (Auto) 6.5 % (1.0-10.0) Eosinophils (%) (Auto) 3.8 % (0.0-3.0) H Basophils (%) (Auto) 0.5 % (0.0-2.0) Sodium Level 140 MMOL/L (136-145) Potassium Level 3.9 MMOL/L (3.5-5.1) Chloride Level 103 MMOL/L (98-107) Carbon Dioxide Level 33 MMOL/L (21-32) H Anion Gap 5 mmol/L (5-15) Blood Urea Nitrogen 30 mg/dL (7-18) H Creatinine 0.7 MG/DL (0.55-1.30) Estimat Glomerular Filtration Rate > 60 mL/min (>60) Glucose Level 124 MG/DL (74-106) H Calcium Level 8.3 MG/DL (8.5-10.1) L Pro-B-Type Natriuretic Peptide 2669 pg/mL (0-125) H Current Medications Medications (Trade) Dose Ordered Sig/Amaris Route PRN Reason Start Time Stop Time Status Last Admin Dose Admin Acetaminophen (Tylenol) 650 mg Q4H PRN NG Mild Pain/Temp > 100.5 08/18/19 09:30 09/15/19 09:29 Amiodarone HCl (Cordarone) 200 mg DAILY NG 08/20/19 09:00 11/18/19 08:59 08/25/19 08:13 Atorvastatin Calcium (Lipitor) 40 mg BEDTIME NG 08/18/19 21:00 09/13/19 20:59 08/24/19 20:41 Chlorhexidine Gluconate (Kamila-Hex 2%) 1 applic DAILY@1999 TOPIC 08/18/19 20:00 09/17/19 19:59 08/24/19 20:41 Clopidogrel Bisulfate (Plavix) 75 mg DAILY NG 08/19/19 09:00 09/13/19 08:59 08/25/19 08:13 Colistimethate Sodium (Colistin *inhalation use only*) 75 mg Q12HR@ INH 08/18/19 10:00 08/28/19 09:59 08/24/19 21:08 Heparin Sodium (Porcine) (Heparin 5000 units/ml) 5,000 units EVERY 12 HOURS SUBQ 08/21/19 09:00 10/05/19 08:59 08/24/19 20:42 Heparin Sodium/ Sodium Chloride (Heparin 1000 units/500ml Premix) 1,000 unit PRN PRN IV Per rx protocol 08/24/19 19:45 08/26/19 19:44 Hydralazine HCl (Apresoline) 10 mg Q4H PRN IV For High Blood Pressure 08/21/19 10:50 11/19/19 10:49 Lidocaine HCl (Xylocaine 1% 30ml) 30 ml NEEDED PRN INJ PICC LINE 08/24/19 19:45 08/26/19 19:44 Olanzapine (ZyPREXA Zydis) 5 mg BEDTIME NG 08/21/19 21:00 10/05/19 20:59 08/24/19 20:41 Pantoprazole (Protonix) 40 mg EVERY 12 HOURS IVP 08/21/19 09:00 09/20/19 08:59 08/25/19 08:13 Angel Rudolph MD Aug 25, 2019 09:35
--- NOTE | 2019-08-25 11:23 | Pulmonolgy Critical Care Note ---
Critical Care - Asmt/Plan Problems: (1) Acute respiratory failure (2) Cardiopulmonary arrest (3) Cardiac LV ejection fraction 40% (4) Nosocomial pneumonia (5) Atrial fibrillation Assessment & Plan: controlled (6) Pulmonary edema (7) COPD (chronic obstructive pulmonary disease) (8) CAD (coronary artery disease) (9) Dementia with behavioral disturbance Respiratory: monitor respiratory rate, adjust FIO2, CXR Cardiac: continue to monitor HR/BP Renal: F/U I&O Infectious Disease: check cultures, continue antibiotics Gastrointestinal: continue feedings/current rate Endocrine: monitor blood sugar Hematologic: monitor H/H, transfuse if hgb<8.5 Neurologic: keep patient comfortable Prophylaxis: Protonix Time Spent (Minutes): 40 Notes Reviewed: art historian, 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, consultants, binder casermanager asset management - Objective Last 24 Hour Vital Signs Date Time Temp Pulse Resp B/P (MAP) Pulse Ox O2 Delivery O2 Flow Rate FiO2 08/25/19 11:00 96 20 160/64 (96) 94 08/25/19 10:00 96 24 168/62 (97) 94 08/25/19 09:28 102 28 30 30 08/25/19 09:00 90 23 170/70 (103) 95 08/25/19 08:00 98.8 71 19 172/83 (112) 98 08/25/19 08:00 30 08/25/19 08:00 Mechanical Ventilator Mechanical Ventilator 08/25/19 07:58 98 08/25/19 07:29 69 16 30 30 08/25/19 07:18 68 08/25/19 07:00 70 22 148/57 (87) 98 08/25/19 06:30 72 20 08/25/19 06:00 70 18 139/53 (81) 96 08/25/19 05:10 72 17 30 08/25/19 05:00 66 16 144/55 (84) 97 08/25/19 04:00 Mechanical Ventilator Mechanical Ventilator 08/25/19 04:00 98.5 63 15 120/51 (74) 96 08/25/19 04:00 62 08/25/19 04:00 30 08/25/19 03:20 65 16 30 08/25/19 03:00 63 16 121/47 (71) 95 08/25/19 02:00 70 19 148/60 (89) 96 08/25/19 01:12 70 16 30 08/25/19 01:00 71 15 125/55 (78) 96 08/25/19 00:00 98.3 69 16 132/48 (76) 96 08/25/19 00:00 Mechanical Ventilator Mechanical Ventilator 08/25/19 00:00 70 08/25/19 00:00 30 08/24/19 23:00 70 20 134/52 (79) 96 08/24/19 22:58 70 16 30 08/24/19 22:00 70 17 153/54 (87) 98 08/24/19 21:23 68 19 99 Mechanical Ventilator 30 08/24/19 21:08 68 16 Mechanical Ventilator 30 30 08/24/19 21:00 68 17 135/53 (80) 91 08/24/19 20:00 98.5 67 14 134/46 (75) 96 08/24/19 20:00 73 08/24/19 20:00 Mechanical Ventilator Mechanical Ventilator 08/24/19 20:00 30 08/24/19 19:00 69 16 136/85 (102) 95 08/24/19 18:57 71 16 30 08/24/19 18:00 62 14 144/47 (79) 96 08/24/19 17:00 68 15 126/44 (71) 95 08/24/19 16:49 67 16 30 08/24/19 16:00 30 08/24/19 16:00 98.6 63 16 121/49 (73) 95 08/24/19 16:00 68 08/24/19 16:00 Mechanical Ventilator Mechanical Ventilator 08/24/19 15:01 74 16 30 08/24/19 15:00 71 14 123/47 (72) 96 08/24/19 14:00 60 15 121/47 (71) 97 08/24/19 14:00 30 08/24/19 13:00 65 12 128/57 (80) 96 08/24/19 12:54 66 16 30 08/24/19 12:00 Mechanical Ventilator Mechanical Ventilator 08/24/19 12:00 30 08/24/19 12:00 67 08/24/19 12:00 98.4 65 14 121/55 (77) 97 Status: awake Condition: improving HEENT: atraumatic Neck: full ROM Heart: HR/BP stable, HR/BP unstable Abdomen: soft, non-tender Extremities: no C/C/E Accucheck: 153 Critical Care - Subjective ROS Limited/Unobtainable: No Interval Events: awake, doing well on BIPAP FI02: 30 Vent Support Breath Rate: 16 Vent Support Mode: CPAP Vent Tidal Volume: 600 Sputum Amount: Small PEEP: 5.0 PIP: 15 Tube Feeding Amount: 55 I&O: Intake and Output 08/24/19 08/25/19 19:00 07:00 Intake Total 1853 ml 775 ml Output Total 460 ml 420 ml Balance 1393 ml 355 ml Free Water 50 ml IV Total 1253 ml Tube Feeding 550 ml 715 ml Other 60 ml Output Urine Total 460 ml 420 ml # Bowel Movements 2 2 ET-Tube: 8.0 ET Position: 24 Labs: Laboratory Tests Test 08/25/19 04:00 White Blood Count 10.3 K/UL (4.8-10.8) Red Blood Count 3.39 M/UL (4.70-6.10) L Hemoglobin 10.8 G/DL (14.2-18.0) L Hematocrit 31.3 % (42.0-52.0) L Mean Corpuscular Volume 92 FL (80-99) Mean Corpuscular Hemoglobin 32.0 PG (27.0-31.0) H Mean Corpuscular Hemoglobin Concent 34.6 G/DL (32.0-36.0) Red Cell Distribution Width 13.2 % (11.6-14.8) Platelet Count 201 K/UL (150-450) Mean Platelet Volume 5.6 FL (6.5-10.1) L Neutrophils (%) (Auto) 76.6 % (45.0-75.0) H Lymphocytes (%) (Auto) 12.6 % (20.0-45.0) L Monocytes (%) (Auto) 6.5 % (1.0-10.0) Eosinophils (%) (Auto) 3.8 % (0.0-3.0) H Basophils (%) (Auto) 0.5 % (0.0-2.0) Sodium Level 140 MMOL/L (136-145) Potassium Level 3.9 MMOL/L (3.5-5.1) Chloride Level 103 MMOL/L (98-107) Carbon Dioxide Level 33 MMOL/L (21-32) H Anion Gap 5 mmol/L (5-15) Blood Urea Nitrogen 30 mg/dL (7-18) H Creatinine 0.7 MG/DL (0.55-1.30) Estimat Glomerular Filtration Rate > 60 mL/min (>60) Glucose Level 124 MG/DL (74-106) H Calcium Level 8.3 MG/DL (8.5-10.1) L Pro-B-Type Natriuretic Peptide 2669 pg/mL (0-125) H Nicole Graves MD Aug 25, 2019 11:23
--- NOTE | 2019-08-25 11:31 | General Progress Note ---
Progress Note Progress Note This note is for Radiology: Pt really needs a PICC line. He doesn't have any family members. He is in ICU and needs lots of meds and fluids etc. Nicole Graves MD Aug 25, 2019 11:31
[2019-08-25] MEDS: Colistin for inhalation INH SCH ×2 (11:46→21:57)
--- NOTE | 2019-08-25 11:48 | Nephrology Progress Note ---
Assessment/Plan Problem List: (1) AUREA (acute kidney injury) Assessment: Serum creatinine rising (2) Cardiopulmonary arrest (3) Respiratory failure (4) Cardiomyopathy (5) Obesity (BMI 30.0-34.9) (6) DMII (diabetes mellitus, type 2) Assessment Acute Renal Failure : AUREA Most likely due to cardiorespiratory arrest and episode of hypotension. Patient also has cardiomyopathy with Ej Fx of 40 % on admission Obese : BMI 34.4 ? DM Other Dx (1) Cardiopulmonary arrest (2) Nosocomial pneumonia (3) Acute respiratory failure (4) COPD (chronic obstructive pulmonary disease) (5) Atrial fibrillation (6) Dementia with behavioral disturbance (7) CAD (coronary artery disease) Plan On D5 W IV fluids for hypernatremia pressors are off now patient's condition somewhat more stable In ICU He is intubated ventilator His blood pressure is more stable Overall he is still doing poorly Adjust blood pressure medications Stress dose of steroids which we will start tapering today Previously Monitor renal parameters. Serum creatinine improved Monitor urine output. Urine output improved. Avoid nephrotoxics. Weaning as possible. Remains intubated at this time. Correct electrolyte imbalances. Change tube feeding to Glucerna. Subjective ROS Limited/Unobtainable: Yes Objective Objective Last 24 Hour Vital Signs Date Time Temp Pulse Resp B/P (MAP) Pulse Ox O2 Delivery O2 Flow Rate FiO2 08/25/19 11:00 96 20 160/64 (96) 94 08/25/19 10:00 96 24 168/62 (97) 94 08/25/19 09:28 102 28 30 30 08/25/19 09:00 90 23 170/70 (103) 95 08/25/19 08:00 98.8 71 19 172/83 (112) 98 08/25/19 08:00 30 08/25/19 08:00 Mechanical Ventilator Mechanical Ventilator 08/25/19 07:58 98 08/25/19 07:29 69 16 30 30 08/25/19 07:18 68 08/25/19 07:00 70 22 148/57 (87) 98 08/25/19 06:30 72 20 08/25/19 06:00 70 18 139/53 (81) 96 08/25/19 05:10 72 17 30 08/25/19 05:00 66 16 144/55 (84) 97 08/25/19 04:00 Mechanical Ventilator Mechanical Ventilator 08/25/19 04:00 98.5 63 15 120/51 (74) 96 08/25/19 04:00 62 08/25/19 04:00 30 08/25/19 03:20 65 16 30 08/25/19 03:00 63 16 121/47 (71) 95 08/25/19 02:00 70 19 148/60 (89) 96 08/25/19 01:12 70 16 30 08/25/19 01:00 71 15 125/55 (78) 96 08/25/19 00:00 98.3 69 16 132/48 (76) 96 08/25/19 00:00 Mechanical Ventilator Mechanical Ventilator 08/25/19 00:00 70 08/25/19 00:00 30 08/24/19 23:00 70 20 134/52 (79) 96 08/24/19 22:58 70 16 30 08/24/19 22:00 70 17 153/54 (87) 98 08/24/19 21:23 68 19 99 Mechanical Ventilator 30 08/24/19 21:08 68 16 Mechanical Ventilator 30 30 08/24/19 21:00 68 17 135/53 (80) 91 08/24/19 20:00 98.5 67 14 134/46 (75) 96 08/24/19 20:00 73 08/24/19 20:00 Mechanical Ventilator Mechanical Ventilator 08/24/19 20:00 30 08/24/19 19:00 69 16 136/85 (102) 95 08/24/19 18:57 71 16 30 08/24/19 18:00 62 14 144/47 (79) 96 08/24/19 17:00 68 15 126/44 (71) 95 08/24/19 16:49 67 16 30 08/24/19 16:00 30 08/24/19 16:00 98.6 63 16 121/49 (73) 95 08/24/19 16:00 68 08/24/19 16:00 Mechanical Ventilator Mechanical Ventilator 08/24/19 15:01 74 16 30 08/24/19 15:00 71 14 123/47 (72) 96 08/24/19 14:00 60 15 121/47 (71) 97 08/24/19 14:00 30 08/24/19 13:00 65 12 128/57 (80) 96 08/24/19 12:54 66 16 30 08/24/19 12:00 Mechanical Ventilator Mechanical Ventilator 08/24/19 12:00 30 08/24/19 12:00 67 08/24/19 12:00 98.4 65 14 121/55 (77) 97 Intake and Output 08/24/19 08/25/19 19:00 07:00 Intake Total 1853 ml 775 ml Output Total 460 ml 420 ml Balance 1393 ml 355 ml Free Water 50 ml IV Total 1253 ml Tube Feeding 550 ml 715 ml Other 60 ml Output Urine Total 460 ml 420 ml # Bowel Movements 2 2 Laboratory Tests 08/25/19 04:00: White Blood Count 10.3, Red Blood Count 3.39L, Hemoglobin 10.8L, Hematocrit 31.3L, Mean Corpuscular Volume 92, Mean Corpuscular Hemoglobin 32.0H, Mean Corpuscular Hemoglobin Concent 34.6, Red Cell Distribution Width 13.2, Platelet Count 201, Mean Platelet Volume 5.6L, Neutrophils (%) (Auto) 76.6H, Lymphocytes (%) (Auto) 12.6L, Monocytes (%) (Auto) 6.5, Eosinophils (%) (Auto) 3.8H, Basophils (%) (Auto) 0.5, Sodium Level 140, Potassium Level 3.9, Chloride Level 103, Carbon Dioxide Level 33H, Anion Gap 5, Blood Urea Nitrogen 30H, Creatinine 0.7, Estimat Glomerular Filtration Rate > 60, Glucose Level 124H, Calcium Level 8.3L, Pro-B-Type Natriuretic Peptide 2669H Height (Feet): 5 Height (Inches): 6.00 Weight (Pounds): 205 General Appearance: no apparent distress EENT: other - Remains intubated on ventilator Cardiovascular: tachycardia Respiratory/Chest: decreased breath sounds Abdomen: distended Objective no change Yunior Sexton MD Aug 25, 2019 11:48
--- NOTE | 2019-08-25 13:00 | Progress Note ---
DATE: 08/22/2019 SUBJECTIVE: The patient is afebrile and hemodynamically stable with persistent bradycardia. PHYSICAL EXAMINATION: VITAL SIGNS: Blood pressure 118/48, his pulse is 57, respirations 18, and temperature 98.3. HEENT: Eyes were normal. ENT, mucous membranes were moist and intact. NECK: Supple with no JVD. LUNGS: Clear. HEART: Normal sounds with irregular beats. There is bradycardia at rest. ABDOMEN: Soft and nontender with normal bowel sounds. EXTREMITIES: Warm without cyanosis, clubbing, or edema. LABORATORY AND DIAGNOSTIC DATA: Hemoglobin is 10.4, hematocrit 30.2, with MCV of 92, WBC 6.5, and platelets are 225,000. His BUN and creatinine are 38 and 0.7 respectively. His sodium is 147, potassium 3.9, chloride 108, CO2 is 32. His calcium is 8.3. His albumin is 2 and total protein is 4.6. His chest x-ray left pleural effusion and congestion. on the left is improved. IMPRESSION: The patient is still awaiting decision regarding tracheostomy and search for family member is taking place. The patient is on colistin 75 mg IV piggyback q.12 h. Repeat laboratory tests will be performed in the a.m. Modesta Mulligan M.D. DR: Malathi JOB#: [id number] CC:
--- NOTE | 2019-08-25 13:15 | Progress Note ---
DATE: 08/24/2019 ADDENDUM Review of yesterday's dictation revealed again that my dictation was not dictated. So, there are dictations I can find from the . Therefore, the 19, 20, and 21 are missing even though they were recorded systematically, and since yesterday it is mentioned in the recording that the dictations are missing. Modesta Mulligan M.D. DR: ELIS JOB#: [id number] CC:
--- NOTE | 2019-08-25 15:51 | Surgery Progress Note ---
Surgery Progress Note Subjective Procedure Performed Right femoral triple-lumen central venous catheter insertion Additional Comments was tolerating weaning well today over 2 hrs possible extubation labs noted eaxm stable cont to wean for extubation Objective Last 24 Hour Vital Signs Date Time Temp Pulse Resp B/P (MAP) Pulse Ox O2 Delivery O2 Flow Rate FiO2 08/25/19 15:14 88 20 30 08/25/19 15:00 89 18 162/61 (94) 94 08/25/19 14:00 90 21 159/55 (89) 92 08/25/19 13:24 104 24 30 30 08/25/19 13:00 97 20 162/60 (94) 94 08/25/19 12:32 182/76 08/25/19 12:00 30 08/25/19 12:00 Mechanical Ventilator Mechanical Ventilator 08/25/19 12:00 98.6 98 24 182/76 (111) 100 08/25/19 11:44 68 08/25/19 11:28 93 21 96 Mechanical Ventilator 30 99 24 30 30 08/25/19 11:00 96 20 160/64 (96) 94 08/25/19 10:00 96 24 168/62 (97) 94 08/25/19 09:28 102 28 30 30 08/25/19 09:00 90 23 170/70 (103) 95 08/25/19 08:00 98.8 71 19 172/83 (112) 98 08/25/19 08:00 30 08/25/19 08:00 Mechanical Ventilator Mechanical Ventilator 08/25/19 07:58 98 08/25/19 07:29 69 16 30 30 08/25/19 07:18 68 08/25/19 07:00 70 22 148/57 (87) 98 08/25/19 06:30 72 20 08/25/19 06:00 70 18 139/53 (81) 96 08/25/19 05:10 72 17 30 08/25/19 05:00 66 16 144/55 (84) 97 08/25/19 04:00 Mechanical Ventilator Mechanical Ventilator 08/25/19 04:00 98.5 63 15 120/51 (74) 96 08/25/19 04:00 62 08/25/19 04:00 30 08/25/19 03:20 65 16 30 08/25/19 03:00 63 16 121/47 (71) 95 08/25/19 02:00 70 19 148/60 (89) 96 08/25/19 01:12 70 16 30 08/25/19 01:00 71 15 125/55 (78) 96 08/25/19 00:00 98.3 69 16 132/48 (76) 96 08/25/19 00:00 Mechanical Ventilator Mechanical Ventilator 08/25/19 00:00 70 08/25/19 00:00 30 08/24/19 23:00 70 20 134/52 (79) 96 08/24/19 22:58 70 16 30 08/24/19 22:00 70 17 153/54 (87) 98 08/24/19 21:23 68 19 99 Mechanical Ventilator 30 08/24/19 21:08 68 16 Mechanical Ventilator 30 30 08/24/19 21:00 68 17 135/53 (80) 91 08/24/19 20:00 98.5 67 14 134/46 (75) 96 08/24/19 20:00 73 08/24/19 20:00 Mechanical Ventilator Mechanical Ventilator 08/24/19 20:00 30 08/24/19 19:00 69 16 136/85 (102) 95 08/24/19 18:57 71 16 30 08/24/19 18:00 62 14 144/47 (79) 96 08/24/19 17:00 68 15 126/44 (71) 95 08/24/19 16:49 67 16 30 08/24/19 16:00 30 08/24/19 16:00 98.6 63 16 121/49 (73) 95 08/24/19 16:00 68 08/24/19 16:00 Mechanical Ventilator Mechanical Ventilator I&O Intake and Output 08/24/19 08/25/19 19:00 07:00 Intake Total 1853 ml 775 ml Output Total 460 ml 420 ml Balance 1393 ml 355 ml Free Water 50 ml IV Total 1253 ml Tube Feeding 550 ml 715 ml Other 60 ml Output Urine Total 460 ml 420 ml # Bowel Movements 2 2 Dressing: dry Wound: clean Cardiovascular: RSR Respiratory: clear Abdomen: soft, non-tender, present bowel sounds Extremities: no tenderness, no cyanosis Laboratory Tests Test 08/25/19 04:00 08/25/19 11:52 White Blood Count 10.3 K/UL (4.8-10.8) Red Blood Count 3.39 M/UL (4.70-6.10) L Hemoglobin 10.8 G/DL (14.2-18.0) L Hematocrit 31.3 % (42.0-52.0) L Mean Corpuscular Volume 92 FL (80-99) Mean Corpuscular Hemoglobin 32.0 PG (27.0-31.0) H Mean Corpuscular Hemoglobin Concent 34.6 G/DL (32.0-36.0) Red Cell Distribution Width 13.2 % (11.6-14.8) Platelet Count 201 K/UL (150-450) Mean Platelet Volume 5.6 FL (6.5-10.1) L Neutrophils (%) (Auto) 76.6 % (45.0-75.0) H Lymphocytes (%) (Auto) 12.6 % (20.0-45.0) L Monocytes (%) (Auto) 6.5 % (1.0-10.0) Eosinophils (%) (Auto) 3.8 % (0.0-3.0) H Basophils (%) (Auto) 0.5 % (0.0-2.0) Sodium Level 140 MMOL/L (136-145) Potassium Level 3.9 MMOL/L (3.5-5.1) Chloride Level 103 MMOL/L (98-107) Carbon Dioxide Level 33 MMOL/L (21-32) H Anion Gap 5 mmol/L (5-15) Blood Urea Nitrogen 30 mg/dL (7-18) H Creatinine 0.7 MG/DL (0.55-1.30) Estimat Glomerular Filtration Rate > 60 mL/min (>60) Glucose Level 124 MG/DL (74-106) H Calcium Level 8.3 MG/DL (8.5-10.1) L Pro-B-Type Natriuretic Peptide 2669 pg/mL (0-125) H Arterial Blood pH 7.434 (7.350-7.450) Arterial Blood Partial Pressure CO2 45.6 mmHg (35.0-45.0) H Arterial Blood Partial Pressure O2 154.5 mmHg (75.0-100.0) H Arterial Blood HCO3 29.9 mmol/L (22.0-26.0) H Arterial Blood Oxygen Saturation 98.3 % (95-100) Arterial Blood Base Excess 4.9 (-2-2) H Joe Test Positive Plan Problems: (1) Nosocomial pneumonia (2) AUREA (acute kidney injury) (3) Cardiomyopathy (4) Obesity (BMI 30.0-34.9) (5) DMII (diabetes mellitus, type 2) (6) Cardiac LV ejection fraction 40% (7) Pulmonary edema (8) Cardiopulmonary arrest Assessment & Plan: Cardiopulmonary arrest septic requiring urgent emergency line placement for pressors and fluids and meds Please see procedure report Full examination performed no other surgical issues found at this time etiology unknown likely surgical in nature Antibiotics fluids Pressors Vent off pressors line okay labs reviewed cont tube feeds wean ivf Unable to wean from ventilator. Labs noted ABG noted imaging reviewed We will plan for tracheostomy this week (9) Respiratory failure (10) History of hypertension (11) COPD (chronic obstructive pulmonary disease) (12) CAD (coronary artery disease) (13) Atrial fibrillation (14) Dementia with behavioral disturbance (15) Upper respiratory infection (16) Acute respiratory failure (17) Dyspnea (18) UTI (urinary tract infection) Prosper Hummel Aug 25, 2019 15:51
[2019-08-25] MEDS: Atorvastatin 20mg tab NG SCH (20:57)
[2019-08-25] MEDS: Dyna-Hex 2% Top Sol 2oz TOPIC SCH (20:57)
[2019-08-25] MEDS: ZyPREXA Zydis 5mg tab NG SCH (20:59)
[2019-08-26] VITALS (24 sets, daily range): BP systolic 114–186; BP diastolic 49–73
--- NOTE | 2019-08-26 02:30 | Progress Note ---
DATE: 08/25/2019 CARDIOLOGY PROGRESS NOTE SUBJECTIVE: The patient is without distress. On ventilator support. Still with weaning efforts unsuccessful. OBJECTIVE: VITAL SIGNS: Blood pressure 160/64, heart rate 96, and respiratory rate 20. Monitor sinus. LUNGS: Bilateral breath sounds. CARDIAC: Regular rhythm and rate. Normal S1 and S2. ABDOMEN: Soft. EXTREMITIES: Trace edema. LABORATORY DATA: White count 10 and hemoglobin 10.8. Sodium 140, potassium 3.9, bicarb 33, BUN 30, and creatinine 0.7. Pro-natriuretic peptide has decreased to 2669. ABG - 7.43, 45, and 154. IMPRESSION: 1. Acute on chronic diastolic congestive heart failure, improved. 2. Paroxysmal atrial fibrillation. 3. Sinus node disease. 4. Calos arrhythmias, requiring discontinuation of amiodarone for now. 5. Respiratory failure. 6. Severe protein-calorie malnutrition. PLAN: 1. Weaning efforts. 2. Periodic diuresis. 3. Consider resumption of amiodarone. 4. Monitor electrolytes, replace accordingly. Saeed Sim M.D. DR: LIZETTE JOB#: [id number] CC:
--- NOTE | 2019-08-26 02:45 | Progress Note ---
DATE: 08/25/2019 SUBJECTIVE: The patient is awake, alert, afebrile, and hemodynamically stable. PHYSICAL EXAMINATION: VITAL SIGNS: Blood pressure is 138/46, pulse is 42, respirations are 16, and temperature is 98.8. HEENT: Eyes were normal. ENT, mucous membranes were moist and intact. NECK: Supple with no JVD without lymph nodes. LUNGS: Clear. HEART: Normal sounds with regular beats. ABDOMEN: Soft and nontender with normal bowel sounds. EXTREMITIES: Warm without cyanosis, clubbing, or edema. The patient required restraints in both arms. He was trying to remove his tracheostomy tube. At the same time, the patient was able to tolerate 6 hours a day of weaning from the respirator. Weaning will continue in a.m. LABORATORY DATA: His hemoglobin is 10.8, hematocrit 31.3 with MCV of 92, WBC of 10.3, and platelets are 201,000. BUN and creatinine are 30 and 0.7 respectively. Sodium is 140, potassium 3.9, chloride 103, CO2 is 33, and calcium is 8.3. His BNP is 2669 from 4400. His ABG at this point pH is 7.43, pCO2 is 45, pO2 is , and bicarb is 29.9 and O2 saturation is 98.3. IMPRESSION: The patient's condition has markedly improved over the last 24 hours. I guess tracheostomy is not a consideration now because the patient has no family to assist in this kind of decision. Repeat laboratory tests will be done in the a.m. Modesta Mulligan M.D. DR: ELIS JOB#: [id number] CC:
[2019-08-26 05:40] LABS: ALANINE AMINOTRANSFERASE 36 U/L (12-78); ALBUMIN 1.8 G/DL (3.4-5.0); ALBUMIN/GLOBULIN RATIO 0.7 (1.0-2.7); ALKALINE PHOSPHATASE 110 U/L (46-116); ANION GAP 6 mmol/L (5-15); ASPARTATE AMINO TRANSFERASE 16 U/L (15-37); BILIRUBIN,TOTAL 0.5 MG/DL (0.2-1.0); BLOOD UREA NITROGEN 27 mg/dL (7-18); CALCIUM 7.8 MG/DL (8.5-10.1); CARBON DIOXIDE 30 MMOL/L (21-32); CHLORIDE 110 MMOL/L (98-107); CREATININE 0.7 MG/DL (0.55-1.30); PHOSPHORUS 3.1 MG/DL (2.5-4.9); POTASSIUM 3.7 MMOL/L (3.5-5.1); SODIUM 146 MMOL/L (136-145)
[2019-08-26 05:44] LABS: BASOPHILS % (AUTO) 0.4 % (0.0-2.0); EOSINOPHILS % (AUTO) 3.2 % (0.0-3.0); HEMATOCRIT 30.7 % (42.0-52.0); HEMOGLOBIN 10.7 G/DL (14.2-18.0); LYMPHOCYTES % (AUTO) 13.5 % (20.0-45.0); MEAN CORPUSCULAR VOLUME 92 FL (80-99); MONOCYTES % (AUTO) 8.7 % (1.0-10.0); NEUTROPHILS % (AUTO) 74.2 % (45.0-75.0); PLATELET COUNT 221 K/UL (150-450); RED BLOOD COUNT 3.33 M/UL (4.70-6.10); RED CELL DISTRIBUTION WIDTH 13.6 % (11.6-14.8); WHITE BLOOD COUNT 7.5 K/UL (4.8-10.8)
[2019-08-26] MEDS: Colistin for inhalation INH SCH ×2 (08:40→22:14)
[2019-08-26] MEDS: Amiodarone 200mg tab NG SCH (09:42)
[2019-08-26] MEDS: Pantoprazole Inj IVP SCH ×2 (09:42→20:57)
[2019-08-26] MEDS: Heparin 5000 units/ml inj SUBQ SCH ×2 (09:48→20:59)
[2019-08-26] MEDS ORDERED: LORazepam Inj 2mg/ml 1ml IV PRN (11:45)
[2019-08-26] MEDS ORDERED: Morphine Sulfate 2mg/ml Inj(IV/IM USE ONLY) IVP PRN (11:45)
--- NOTE | 2019-08-26 11:54 | Surgery Progress Note ---
Surgery Progress Note Subjective Additional Comments eyes open to command tracking tolerated few hours of weaning yesterday Objective Last 24 Hour Vital Signs Date Time Temp Pulse Resp B/P (MAP) Pulse Ox O2 Delivery O2 Flow Rate FiO2 08/26/19 11:10 71 17 30 08/26/19 11:00 75 16 126/55 (78) 96 08/26/19 10:00 74 16 130/52 (78) 94 08/26/19 09:00 84 16 151/67 (95) 96 08/26/19 08:38 89 19 95 Mechanical Ventilator 30 85 16 08/26/19 08:00 99.0 78 16 154/57 (89) 97 08/26/19 08:00 Mechanical Ventilator Mechanical Ventilator 08/26/19 08:00 30 08/26/19 07:10 91 17 30 08/26/19 07:00 68 15 134/57 (82) 97 08/26/19 06:30 71 20 08/26/19 06:00 73 16 143/54 (83) 97 08/26/19 05:14 72 16 30 08/26/19 05:00 79 15 142/55 (84) 93 08/26/19 04:00 98.2 86 22 186/73 (110) 98 08/26/19 04:00 Mechanical Ventilator Mechanical Ventilator 08/26/19 04:00 30 08/26/19 04:00 82 08/26/19 03:05 62 16 30 08/26/19 03:00 64 16 129/49 (75) 96 08/26/19 02:00 66 16 140/59 (86) 99 08/26/19 01:00 98.6 65 16 132/51 (78) 98 08/26/19 00:55 68 20 30 08/26/19 00:00 30 08/26/19 00:00 Mechanical Ventilator Mechanical Ventilator 08/26/19 00:00 62 20 116/51 (72) 97 08/26/19 00:00 65 08/25/19 23:00 70 20 132/59 (83) 96 08/25/19 22:37 64 20 30 08/25/19 22:00 61 16 131/74 (93) 98 08/25/19 21:57 66 16 99 Mechanical Ventilator 30 66 16 08/25/19 21:00 66 16 127/47 (73) 97 08/25/19 20:00 99.5 67 16 122/49 (73) 96 08/25/19 20:00 30 08/25/19 20:00 Mechanical Ventilator Mechanical Ventilator 08/25/19 20:00 71 08/25/19 19:16 70 16 30 08/25/19 19:00 70 16 134/44 (74) 95 08/25/19 18:00 72 16 138/48 (78) 96 08/25/19 17:25 74 17 30 08/25/19 17:00 85 21 143/55 (84) 95 08/25/19 16:45 84 08/25/19 16:00 98.8 84 18 135/54 (81) 95 08/25/19 16:00 30 08/25/19 16:00 Mechanical Ventilator Mechanical Ventilator 08/25/19 15:14 88 20 30 08/25/19 15:00 89 18 162/61 (94) 94 08/25/19 14:00 90 21 159/55 (89) 92 08/25/19 13:24 104 24 30 30 08/25/19 13:00 97 20 162/60 (94) 94 08/25/19 12:32 182/76 08/25/19 12:00 30 08/25/19 12:00 Mechanical Ventilator Mechanical Ventilator 08/25/19 12:00 98.6 98 24 182/76 (111) 100 I&O Intake and Output 08/25/19 08/26/19 19:00 07:00 Intake Total 760 ml 660 ml Output Total 1325 ml 555 ml Balance -565 ml 105 ml Tube Feeding 660 ml 660 ml Other 100 ml Output Urine Total 1325 ml 555 ml # Bowel Movements 2 Dressing: other Wound: other Drains: other Cardiovascular: RSR Respiratory: decreased breath sounds Abdomen: soft, non-tender, present bowel sounds, non-distended Extremities: no cyanosis, other Laboratory Tests Test 08/26/19 04:00 08/26/19 08:57 White Blood Count 7.5 K/UL (4.8-10.8) Red Blood Count 3.33 M/UL (4.70-6.10) L Hemoglobin 10.7 G/DL (14.2-18.0) L Hematocrit 30.7 % (42.0-52.0) L Mean Corpuscular Volume 92 FL (80-99) Mean Corpuscular Hemoglobin 32.1 PG (27.0-31.0) H Mean Corpuscular Hemoglobin Concent 34.8 G/DL (32.0-36.0) Red Cell Distribution Width 13.6 % (11.6-14.8) Platelet Count 221 K/UL (150-450) Mean Platelet Volume 6.1 FL (6.5-10.1) L Neutrophils (%) (Auto) 74.2 % (45.0-75.0) Lymphocytes (%) (Auto) 13.5 % (20.0-45.0) L Monocytes (%) (Auto) 8.7 % (1.0-10.0) Eosinophils (%) (Auto) 3.2 % (0.0-3.0) H Basophils (%) (Auto) 0.4 % (0.0-2.0) Sodium Level 146 MMOL/L (136-145) H Potassium Level 3.7 MMOL/L (3.5-5.1) Chloride Level 110 MMOL/L (98-107) H Carbon Dioxide Level 30 MMOL/L (21-32) Anion Gap 6 mmol/L (5-15) Blood Urea Nitrogen 27 mg/dL (7-18) H Creatinine 0.7 MG/DL (0.55-1.30) Estimat Glomerular Filtration Rate > 60 mL/min (>60) Glucose Level 135 MG/DL (74-106) H Uric Acid 2.7 MG/DL (2.6-7.2) Calcium Level 7.8 MG/DL (8.5-10.1) L Phosphorus Level 3.1 MG/DL (2.5-4.9) Magnesium Level 1.8 MG/DL (1.8-2.4) Total Bilirubin 0.5 MG/DL (0.2-1.0) Aspartate Amino Transf (AST/SGOT) 16 U/L (15-37) Alanine Aminotransferase (ALT/SGPT) 36 U/L (12-78) Alkaline Phosphatase 110 U/L (46-116) C-Reactive Protein, Quantitative 4.2 mg/dL (0.00-0.90) H Pro-B-Type Natriuretic Peptide 5534 pg/mL (0-125) H Total Protein 4.5 G/DL (6.4-8.2) L Albumin 1.8 G/DL (3.4-5.0) L Globulin 2.7 g/dL Albumin/Globulin Ratio 0.7 (1.0-2.7) L Arterial Blood pH 7.444 (7.350-7.450) Arterial Blood Partial Pressure CO2 43.1 mmHg (35.0-45.0) Arterial Blood Partial Pressure O2 75.5 mmHg (75.0-100.0) Arterial Blood HCO3 28.9 mmol/L (22.0-26.0) H Arterial Blood Oxygen Saturation 94.5 % (95-100) L Arterial Blood Base Excess 4.3 (-2-2) H Joe Test Positive Plan Problems: (1) Nosocomial pneumonia (2) AUREA (acute kidney injury) (3) Cardiomyopathy (4) Obesity (BMI 30.0-34.9) (5) DMII (diabetes mellitus, type 2) (6) Cardiac LV ejection fraction 40% (7) Pulmonary edema (8) Cardiopulmonary arrest Assessment & Plan: Cardiopulmonary arrest septic requiring urgent emergency line placement for pressors and fluids and meds Please see procedure report Full examination performed no other surgical issues found at this time etiology unknown likely surgical in nature Antibiotics fluids Pressors Vent weaning trials right groin site okay. no hematoma. no bleeding left arm picc okay off pressors labs reviewed cont tube feeds Unable to wean from ventilator. Labs noted ABG noted imaging reviewed cont weaning. if possible extubate otherwise will consider trach (9) Respiratory failure (10) History of hypertension (11) COPD (chronic obstructive pulmonary disease) (12) CAD (coronary artery disease) (13) Atrial fibrillation (14) Dementia with behavioral disturbance (15) Upper respiratory infection (16) Acute respiratory failure (17) Dyspnea (18) UTI (urinary tract infection) Prosper Hummel Aug 26, 2019 11:54
--- NOTE | 2019-08-26 12:45 | Nephrology Progress Note ---
Assessment/Plan Problem List: (1) AUREA (acute kidney injury) Assessment: Serum creatinine rising (2) Cardiopulmonary arrest (3) Respiratory failure (4) Cardiomyopathy (5) Obesity (BMI 30.0-34.9) (6) DMII (diabetes mellitus, type 2) Assessment Acute Renal Failure : AUREA Most likely due to cardiorespiratory arrest and episode of hypotension. Patient also has cardiomyopathy with Ej Fx of 40 % on admission Obese : BMI 34.4 ? DM Other Dx (1) Cardiopulmonary arrest (2) Nosocomial pneumonia (3) Acute respiratory failure (4) COPD (chronic obstructive pulmonary disease) (5) Atrial fibrillation (6) Dementia with behavioral disturbance (7) CAD (coronary artery disease) Plan On D5 W IV fluids for hypernatremia pressors are off now patient's condition somewhat more stable In ICU He is intubated ventilator His blood pressure is more stable Overall he is still doing poorly Adjust blood pressure medications Stress dose of steroids which we will start tapering today Previously Monitor renal parameters. Serum creatinine improved Monitor urine output. Urine output improved. Avoid nephrotoxics. Weaning as possible. Remains intubated at this time. Correct electrolyte imbalances. Change tube feeding to Glucerna. Subjective ROS Limited/Unobtainable: Yes Objective Objective Last 24 Hour Vital Signs Date Time Temp Pulse Resp B/P (MAP) Pulse Ox O2 Delivery O2 Flow Rate FiO2 08/26/19 12:00 72 08/26/19 11:10 71 17 30 08/26/19 11:00 75 16 126/55 (78) 96 08/26/19 10:00 74 16 130/52 (78) 94 08/26/19 09:00 84 16 151/67 (95) 96 08/26/19 08:38 89 19 95 Mechanical Ventilator 30 85 16 08/26/19 08:00 99.0 78 16 154/57 (89) 97 08/26/19 08:00 91 08/26/19 08:00 Mechanical Ventilator Mechanical Ventilator 08/26/19 08:00 30 08/26/19 07:10 91 17 30 08/26/19 07:00 68 15 134/57 (82) 97 08/26/19 06:30 71 20 08/26/19 06:00 73 16 143/54 (83) 97 08/26/19 05:14 72 16 30 08/26/19 05:00 79 15 142/55 (84) 93 08/26/19 04:00 98.2 86 22 186/73 (110) 98 08/26/19 04:00 Mechanical Ventilator Mechanical Ventilator 08/26/19 04:00 30 08/26/19 04:00 82 08/26/19 03:05 62 16 30 08/26/19 03:00 64 16 129/49 (75) 96 08/26/19 02:00 66 16 140/59 (86) 99 08/26/19 01:00 98.6 65 16 132/51 (78) 98 08/26/19 00:55 68 20 30 08/26/19 00:00 30 08/26/19 00:00 Mechanical Ventilator Mechanical Ventilator 08/26/19 00:00 62 20 116/51 (72) 97 08/26/19 00:00 65 08/25/19 23:00 70 20 132/59 (83) 96 08/25/19 22:37 64 20 30 08/25/19 22:00 61 16 131/74 (93) 98 08/25/19 21:57 66 16 99 Mechanical Ventilator 30 66 16 08/25/19 21:00 66 16 127/47 (73) 97 08/25/19 20:00 99.5 67 16 122/49 (73) 96 08/25/19 20:00 30 08/25/19 20:00 Mechanical Ventilator Mechanical Ventilator 08/25/19 20:00 71 08/25/19 19:16 70 16 30 08/25/19 19:00 70 16 134/44 (74) 95 08/25/19 18:00 72 16 138/48 (78) 96 08/25/19 17:25 74 17 30 08/25/19 17:00 85 21 143/55 (84) 95 08/25/19 16:45 84 08/25/19 16:00 98.8 84 18 135/54 (81) 95 08/25/19 16:00 30 08/25/19 16:00 Mechanical Ventilator Mechanical Ventilator 08/25/19 15:14 88 20 30 08/25/19 15:00 89 18 162/61 (94) 94 08/25/19 14:00 90 21 159/55 (89) 92 08/25/19 13:24 104 24 30 30 08/25/19 13:00 97 20 162/60 (94) 94 Intake and Output 08/25/19 08/26/19 19:00 07:00 Intake Total 760 ml 660 ml Output Total 1325 ml 555 ml Balance -565 ml 105 ml Tube Feeding 660 ml 660 ml Other 100 ml Output Urine Total 1325 ml 555 ml # Bowel Movements 2 Current Medications Medications (Trade) Dose Ordered Sig/Amaris Route PRN Reason Start Time Stop Time Status Last Admin Dose Admin Acetaminophen (Tylenol) 650 mg Q4H PRN NG Mild Pain/Temp > 100.5 08/18/19 09:30 09/15/19 09:29 Amiodarone HCl (Cordarone) 200 mg DAILY NG 08/20/19 09:00 11/18/19 08:59 08/26/19 09:42 Atorvastatin Calcium (Lipitor) 40 mg BEDTIME NG 08/18/19 21:00 09/13/19 20:59 08/25/19 20:57 Chlorhexidine Gluconate (Kamila-Hex 2%) 1 applic DAILY@1999 TOPIC 08/18/19 20:00 09/17/19 19:59 08/25/19 20:57 Clopidogrel Bisulfate (Plavix) 75 mg DAILY NG 08/19/19 09:00 09/13/19 08:59 08/26/19 09:42 Colistimethate Sodium (Colistin *inhalation use only*) 75 mg Q12HR@, INH 08/18/19 10:00 08/29/19 23:59 08/26/19 08:40 Heparin Sodium (Porcine) (Heparin 5000 units/ml) 5,000 units EVERY 12 HOURS SUBQ 08/21/19 09:00 10/05/19 08:59 08/26/19 09:48 Heparin Sodium/ Sodium Chloride (Heparin 1000 units/500ml Premix) 1,000 unit PRN PRN IV Per rx protocol 08/24/19 19:45 08/26/19 19:44 Hydralazine HCl (Apresoline) 10 mg Q4H PRN IV For High Blood Pressure 08/21/19 10:50 11/19/19 10:49 08/25/19 12:32 Lidocaine HCl (Xylocaine 1% 30ml) 30 ml NEEDED PRN INJ PICC LINE 08/24/19 19:45 08/26/19 19:44 Lorazepam (Ativan 2mg/ml 1ml) 2 mg Q4H PRN IV For Anxiety 08/26/19 11:45 09/02/19 11:44 Morphine Sulfate (Morphine Sulfate) 2 mg Q4H PRN IVP For Pain 08/26/19 11:45 09/02/19 11:44 Olanzapine (ZyPREXA Zydis) 5 mg BEDTIME NG 08/21/19 21:00 10/05/19 20:59 08/25/19 20:59 Pantoprazole (Protonix) 40 mg EVERY 12 HOURS IVP 08/21/19 09:00 09/20/19 08:59 08/26/19 09:42 Laboratory Tests 08/26/19 04:00: White Blood Count 7.5, Red Blood Count 3.33L, Hemoglobin 10.7L, Hematocrit 30.7L , Mean Corpuscular Volume 92, Mean Corpuscular Hemoglobin 32.1H, Mean Corpuscular Hemoglobin Concent 34.8, Red Cell Distribution Width 13.6, Platelet Count 221, Mean Platelet Volume 6.1L, Neutrophils (%) (Auto) 74.2, Lymphocytes ( %) (Auto) 13.5L, Monocytes (%) (Auto) 8.7, Eosinophils (%) (Auto) 3.2H, Basophils (%) (Auto) 0.4, Sodium Level 146H, Potassium Level 3.7, Chloride Level 110H, Carbon Dioxide Level 30, Anion Gap 6, Blood Urea Nitrogen 27H, Creatinine 0.7, Estimat Glomerular Filtration Rate > 60, Glucose Level 135H, Uric Acid 2.7, Calcium Level 7.8L, Phosphorus Level 3.1, Magnesium Level 1.8, Total Bilirubin 0.5, Aspartate Amino Transf (AST/SGOT) 16, Alanine Aminotransferase (ALT/SGPT) 36, Alkaline Phosphatase 110, C-Reactive Protein, Quantitative 4.2H, Pro-B-Type Natriuretic Peptide 5534H, Total Protein 4.5L, Albumin 1.8L, Globulin 2.7, Albumin/Globulin Ratio 0.7L 08/26/19 08:57: Arterial Blood pH 7.444, Arterial Blood Partial Pressure CO2 43.1, Arterial Blood Partial Pressure O2 75.5, Arterial Blood HCO3 28.9H, Arterial Blood Oxygen Saturation 94.5L, Arterial Blood Base Excess 4.3H, Joe Test Positive Height (Feet): 5 Height (Inches): 6.00 Weight (Pounds): 205 EENT: other - Remains intubated on ventilator Cardiovascular: normal rate Respiratory/Chest: decreased breath sounds Abdomen: distended Objective no change Yunior Sexton MD Aug 26, 2019 12:44
--- NOTE | 2019-08-26 14:06 | Diagnostic Imaging Report ---
Indication: Abdominal pain Comparison: None Single view of the abdomen obtained Findings: NG tube is present in good position. A partial left lateral decubitus view of the abdomen performed as well as a supine view. The left lateral decubitus view is not adequate as the area of interest which would be the nondependent right side of the abdomen, which is the area of interest was not imaged and is beyond the [id number] of the x-ray. Bowel gas pattern appears nonobstructive on the basis of the partial images obtained. IMPRESSION: Technically suboptimal study. Requires repeat
--- NOTE | 2019-08-26 14:07 | Diagnostic Imaging Report ---
Indication: Dyspnea Comparison: None A single view chest radiograph was obtained. Findings: There is a hazy opacity at the left lung base obscuring the diaphragm. Mild pulmonary vascular congestion present with cardiomegaly. Tubes and lines are stable. IMPRESSION: No change from the prior exam. Suspect a small left pleural effusion CHF
--- NOTE | 2019-08-26 14:11 | Diagnostic Imaging Report ---
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 The left upper extremity was prepped with alcohol. All elements of maximal sterile barrier technique were followed including usage of a cap, mask, sterile gown, sterile gloves, hand hygiene and a large sterile sheet. Sonographic evaluation of the upper extremity was performed demonstrating a patent and compressible basilic vein. Access was obtained under real-time ultrasound guidance (with utilization of sterile gel and sterile probe cover) and digital image was saved and archived. An .018 wire was introduced. Needle exchanged for a 5 Khmer peel-away sheath. Measurements were obtained. A 5 Khmer dual-lumen Power PICC line catheter was cut to 40 cm and introduced over the wire. Peel-away sheath and wire were removed.Catheter was secured to the skin using 2-0 Prolene suture. Both ports aspirate and flush easily. Post procedure chest x-ray demonstrates good position of the PICC line catheter within the SVC. Impression: Successful placement of an upper extremity PICC line catheter
--- NOTE | 2019-08-26 16:00 | Progress Note ---
DATE: 08/22/2019 SUBJECTIVE: The patient is awake, alert, afebrile, and hemodynamically stable. He is alert I discussed with him the issue of tracheostomy. I did explain to him his choices and he notes that he understood the choices. He understands that he does not have to give me any answer now, but I will ask him again on the following day. The of tracheostomy has been discussed with the patient two days ago, but it appeared the patient was under distress and it is unclear whether he understood his option and tonight the patient is still time to think. PHYSICAL EXAMINATION: VITAL SIGNS: Blood pressure is 126/46, pulse is 59, respirations 17, and temperature 98.2. HEENT: Eyes were normal. ENT, mucous membranes were moist and intact. NECK: Supple with no JVD without lymph nodes. Tracheostomy site is clean. LUNGS: Clear without rhonchi, rales, or wheezing. HEART: Normal sounds with regular beats. There is bradycardia at rest. Sinus bradycardia on monitor. ABDOMEN: Soft and nontender with normal bowel sounds. EXTREMITIES: Warm without cyanosis, clubbing, or edema. LABORATORY AND DIAGNOSTIC DATA: Hemoglobin is 11.5, hematocrit 33.8 with MCV of 93, WBC of 9.7, and platelets of 235,000. His BUN and creatinine are 39 and 0.7 respectively. His sodium is 136, potassium 4.1, chloride 108, CO2 is 33. His calcium is 9.1. His phosphorus is 2.8. His magnesium is 2.1. His proBNP is 4405. He is spironolactone and ELDER inhibitor. His renal function improved with ELDER inhibitor. Chest x-ray today revealed that he was in congestive heart failure pulmonary edema. There is an increase in the left pleural effusion with unchanged right pleural effusion. IMPRESSION: Slight interval worsening of the congestive heart failure. He has left lower lobe infiltrate. was discontinued because of bradycardia and ELDER inhibitor discontinued because of hypertension and . The patient appears to be in no current distress today. Repeat laboratory tests will be done in the morning. Modesta Mulligan M.D. DR: ANKUR JOB#: [id number] CC:
--- NOTE | 2019-08-26 16:02 | Infectious Diseases Prog Note ---
Assessment/Plan Assessment/Plan ASSESSMENT: The patient is a 79-year-old male with: Leukocytosis; Sp Fever , sp Sepsis, Sp Pneumonia ( probable asp), Sp RX -08/13 Scx: MDR-ACB (Tygacil LANI: 4) - CXR: 1. Streaky opacities in the right lower lung may represent atelectasis versus scarring. Left basilar opacity may represent atelectasis. Component of pneumonia is not excluded. Pulmonary vasculature congestion. -08/01 ucx NTD - sp cx: nl anastacio Urinary tract infection, SP Rx 08/17 Sp code blue and intubation 07/31 Sp Code blue and intubation , sp extubation 08/12 , Hyperlipidemia. COPD. History of GERD. History of encephalopathy. History of CAD/TX. History of cardiomyopathy. Hypertension. PLAN: cont Colistin INH (MDR-ACB) # 11/-14 - 08/22/19 SP Merrem 10 - 08/14 SP IV Vanco # 4 -08/07 SP Zosyn and IV Vanco # 7/ , -08/01 SP Rocephin day # 10 - 07/31 sp sp Dox # 6 Monitor CBC. Monitor BMP. Monitor chest x-ray cont ICU Support discussed with RN Subjective Allergies: Coded Allergies: No Known Allergies (Unverified , 06/03/17) Subjective afebrile on vent in ICU Objective Vital Signs Last 24 Hour Vital Signs Date Time Temp Pulse Resp B/P (MAP) Pulse Ox O2 Delivery O2 Flow Rate FiO2 08/26/19 15:00 79 17 138/54 (82) 97 08/26/19 14:00 82 20 138/56 (83) 97 08/26/19 13:30 75 18 30 08/26/19 13:00 73 16 126/54 (78) 97 08/26/19 12:00 72 08/26/19 12:00 Mechanical Ventilator Mechanical Ventilator 08/26/19 12:00 30 08/26/19 12:00 80 16 142/58 (86) 97 08/26/19 11:10 71 17 30 08/26/19 11:00 75 16 126/55 (78) 96 08/26/19 10:00 74 16 130/52 (78) 94 08/26/19 09:00 84 16 151/67 (95) 96 08/26/19 08:38 89 19 95 Mechanical Ventilator 30 85 16 3/24/20 08:00 99.0 78 16 154/57 (89) 97 08/26/19 08:00 91 08/26/19 08:00 Mechanical Ventilator Mechanical Ventilator 08/26/19 08:00 30 08/26/19 07:10 91 17 30 08/26/19 07:00 68 15 134/57 (82) 97 08/26/19 06:30 71 20 08/26/19 06:00 73 16 143/54 (83) 97 08/26/19 05:14 72 16 30 08/26/19 05:00 79 15 142/55 (84) 93 08/26/19 04:00 98.2 86 22 186/73 (110) 98 08/26/19 04:00 Mechanical Ventilator Mechanical Ventilator 08/26/19 04:00 30 08/26/19 04:00 82 08/26/19 03:05 62 16 30 08/26/19 03:00 64 16 129/49 (75) 96 08/26/19 02:00 66 16 140/59 (86) 99 08/26/19 01:00 98.6 65 16 132/51 (78) 98 08/26/19 00:55 68 20 30 08/26/19 00:00 30 08/26/19 00:00 Mechanical Ventilator Mechanical Ventilator 08/26/19 00:00 62 20 116/51 (72) 97 08/26/19 00:00 65 08/25/19 23:00 70 20 132/59 (83) 96 08/25/19 22:37 64 20 30 08/25/19 22:00 61 16 131/74 (93) 98 08/25/19 21:57 66 16 99 Mechanical Ventilator 30 66 16 08/25/19 21:00 66 16 127/47 (73) 97 08/25/19 20:00 99.5 67 16 122/49 (73) 96 08/25/19 20:00 30 08/25/19 20:00 Mechanical Ventilator Mechanical Ventilator 08/25/19 20:00 71 08/25/19 19:16 70 16 30 08/25/19 19:00 70 16 134/44 (74) 95 08/25/19 18:00 72 16 138/48 (78) 96 08/25/19 17:25 74 17 30 08/25/19 17:00 85 21 143/55 (84) 95 08/25/19 16:45 84 Height (Feet): 5 Height (Inches): 6.00 Weight (Pounds): 205 HEENT: anicteric Respiratory/Chest: no respiratory distress Cardiovascular: no gallop/murmur Abdomen: non distended Laboratory Tests Test 08/26/19 04:00 08/26/19 08:57 White Blood Count 7.5 K/UL (4.8-10.8) Red Blood Count 3.33 M/UL (4.70-6.10) L Hemoglobin 10.7 G/DL (14.2-18.0) L Hematocrit 30.7 % (42.0-52.0) L Mean Corpuscular Volume 92 FL (80-99) Mean Corpuscular Hemoglobin 32.1 PG (27.0-31.0) H Mean Corpuscular Hemoglobin Concent 34.8 G/DL (32.0-36.0) Red Cell Distribution Width 13.6 % (11.6-14.8) Platelet Count 221 K/UL (150-450) Mean Platelet Volume 6.1 FL (6.5-10.1) L Neutrophils (%) (Auto) 74.2 % (45.0-75.0) Lymphocytes (%) (Auto) 13.5 % (20.0-45.0) L Monocytes (%) (Auto) 8.7 % (1.0-10.0) Eosinophils (%) (Auto) 3.2 % (0.0-3.0) H Basophils (%) (Auto) 0.4 % (0.0-2.0) Sodium Level 146 MMOL/L (136-145) H Potassium Level 3.7 MMOL/L (3.5-5.1) Chloride Level 110 MMOL/L (98-107) H Carbon Dioxide Level 30 MMOL/L (21-32) Anion Gap 6 mmol/L (5-15) Blood Urea Nitrogen 27 mg/dL (7-18) H Creatinine 0.7 MG/DL (0.55-1.30) Estimat Glomerular Filtration Rate > 60 mL/min (>60) Glucose Level 135 MG/DL (74-106) H Uric Acid 2.7 MG/DL (2.6-7.2) Calcium Level 7.8 MG/DL (8.5-10.1) L Phosphorus Level 3.1 MG/DL (2.5-4.9) Magnesium Level 1.8 MG/DL (1.8-2.4) Total Bilirubin 0.5 MG/DL (0.2-1.0) Aspartate Amino Transf (AST/SGOT) 16 U/L (15-37) Alanine Aminotransferase (ALT/SGPT) 36 U/L (12-78) Alkaline Phosphatase 110 U/L (46-116) C-Reactive Protein, Quantitative 4.2 mg/dL (0.00-0.90) H Pro-B-Type Natriuretic Peptide 5534 pg/mL (0-125) H Total Protein 4.5 G/DL (6.4-8.2) L Albumin 1.8 G/DL (3.4-5.0) L Globulin 2.7 g/dL Albumin/Globulin Ratio 0.7 (1.0-2.7) L Arterial Blood pH 7.444 (7.350-7.450) Arterial Blood Partial Pressure CO2 43.1 mmHg (35.0-45.0) Arterial Blood Partial Pressure O2 75.5 mmHg (75.0-100.0) Arterial Blood HCO3 28.9 mmol/L (22.0-26.0) H Arterial Blood Oxygen Saturation 94.5 % (95-100) L Arterial Blood Base Excess 4.3 (-2-2) H Joe Test Positive Current Medications Medications (Trade) Dose Ordered Sig/Amaris Route PRN Reason Start Time Stop Time Status Last Admin Dose Admin Acetaminophen (Tylenol) 650 mg Q4H PRN NG Mild Pain/Temp > 100.5 08/18/19 09:30 09/15/19 09:29 Amiodarone HCl (Cordarone) 200 mg DAILY NG 08/20/19 09:00 11/18/19 08:59 08/26/19 09:42 Atorvastatin Calcium (Lipitor) 40 mg BEDTIME NG 08/18/19 21:00 09/13/19 20:59 08/25/19 20:57 Chlorhexidine Gluconate (Kamila-Hex 2%) 1 applic DAILY@2000 TOPIC 08/18/19 20:00 09/17/19 19:59 08/25/19 20:57 Clopidogrel Bisulfate (Plavix) 75 mg DAILY NG 08/19/19 09:00 09/13/19 08:59 08/26/19 09:42 Colistimethate Sodium (Colistin *inhalation use only*) 75 mg Q12HR@10,22 INH 08/18/19 10:00 08/29/19 23:59 08/26/19 08:40 Heparin Sodium (Porcine) (Heparin 5000 units/ml) 5,000 units EVERY 12 HOURS SUBQ 08/21/19 09:00 10/05/19 08:59 08/26/19 09:48 Heparin Sodium/ Sodium Chloride (Heparin 1000 units/500ml Premix) 1,000 unit PRN PRN IV Per rx protocol 08/24/19 19:45 08/26/19 19:44 Hydralazine HCl (Apresoline) 10 mg Q4H PRN IV For High Blood Pressure 08/21/19 10:50 11/19/19 10:49 08/25/19 12:32 Lidocaine HCl (Xylocaine 1% 30ml) 30 ml NEEDED PRN INJ PICC LINE 08/24/19 19:45 08/26/19 19:44 Lorazepam (Ativan 2mg/ml 1ml) 2 mg Q4H PRN IV For Anxiety 08/26/19 11:45 09/02/19 11:44 Morphine Sulfate (Morphine Sulfate) 2 mg Q4H PRN IVP For Pain 08/26/19 11:45 09/02/19 11:44 Olanzapine (ZyPREXA Zydis) 5 mg BEDTIME NG 08/21/19 21:00 10/05/19 20:59 08/25/19 20:59 Pantoprazole (Protonix) 40 mg EVERY 12 HOURS IVP 08/21/19 09:00 09/20/19 08:59 08/26/19 09:42 Angel Rudolph MD Aug 26, 2019 16:02
[2019-08-26] MEDS: Dyna-Hex 2% Top Sol 2oz TOPIC SCH (19:46)
[2019-08-26] MEDS: Atorvastatin 20mg tab NG SCH (20:58)
[2019-08-26] MEDS: ZyPREXA Zydis 5mg tab NG SCH (20:58)
[2019-08-27] VITALS (24 sets, daily range): BP systolic 104–152; BP diastolic 47–69
--- NOTE | 2019-08-27 03:30 | Progress Note ---
DATE: 08/26/2019 CARDIOLOGY PROGRESS NOTE SUBJECTIVE: Weaning trials ongoing. The patient remains on ventilator support. Monitored rhythm sinus with bundle-branch block. No bradycardic episodes noted. OBJECTIVE: VITAL SIGNS: Blood pressure 123/52, heart rate 72, and respiratory rate 16. LUNGS: Thin secretions. Bilateral rhonchi. CARDIAC: Regular rhythm and rate. Normal S1 and S2. ABDOMEN: Soft. EXTREMITIES: Trace edema. LABORATORY DATA: Chest x-ray reveals small left pleural effusion, left basilar opacity, mild pulmonary venous congestion. White count 7.5 and hemoglobin 10.7. Sodium 146, potassium 3.7, BUN 27, and creatinine 0.7. Pro-natriuretic peptide 5500. ABG 7.44, 43, 75. IMPRESSION: 1. Respiratory failure. 2. Acute on chronic systolic and diastolic congestive heart failure. 3. Acute myocardial infarction, status post cardiopulmonary arrest with subsequent respiratory failure and associated bradyarrhythmia. 4. Paroxysmal atrial fibrillation. 5. Ischemic cardiomyopathy. 6. Dehydration. 7. Hypernatremia. PLAN: 1. Free water replacement. 2. Cautious diuresis. 3. Ventilator support with weaning. 4. Titrate anti-failure regimen. 5. Off amiodarone for now due to secondary bradyarrhythmias. We will need to reassess arrhythmia management long-term. 6. anti-platelet therapy. Saeed Sim M.D. DR: MARCIA JOB#: [id number] CC:
[2019-08-27] MEDS: Amiodarone 200mg tab NG SCH (08:04)
[2019-08-27] MEDS: Pantoprazole Inj IVP SCH ×2 (08:04→20:51)
[2019-08-27] MEDS: Heparin 5000 units/ml inj SUBQ SCH ×2 (08:05→20:52)
[2019-08-27] MEDS: Colistin for inhalation INH SCH ×2 (09:29→21:31)
--- NOTE | 2019-08-27 10:45 | Progress Note ---
DATE: 08/26/2019 SUBJECTIVE: The patient is afebrile and hemodynamically stable. PHYSICAL EXAMINATION: VITAL SIGNS: Blood pressure 125/56, pulse is 67, respirations are 16, and temperature 98.8 degrees. HEENT: Eyes were normal. ENT, mucous membranes were moist and intact. NECK: Supple with no JVD without lymph nodes. Tracheostomy site is clean. LUNGS: Clear without rhonchi, rales, or wheezing. HEART: Normal sounds with regular beat. ABDOMEN: Soft and nontender with normal bowel sounds. EXTREMITIES: Warm without cyanosis, clubbing, or edema. LABORATORY AND DIAGNOSTIC DATA: Hemoglobin is 10.7, hematocrit is 30.7, MCV of 92, WBC of 7.5, and platelets are 221,000. His BUN and creatinine are 37 and 0.7 respectively. His sodium is 143, potassium 3.7, chloride 110, and CO2 is 30. His CRP is 4.2. His proBNP is 5500. His abdominal x-ray of the previous or present study of KUB and chest x-ray noted from present exam showed presence of small left pleural fluid. IMPRESSION: The patient is afebrile and hemodynamically stable than previously. Repeat laboratory tests will be done in a.m. Modesta Mulligan M.D. DR: IRMA JOB#: [id number] CC:
--- NOTE | 2019-08-27 10:51 | Pulmonolgy Critical Care Note ---
Critical Care - Asmt/Plan Problems: (1) Acute respiratory failure (2) Cardiopulmonary arrest (3) Cardiac LV ejection fraction 40% (4) Nosocomial pneumonia (5) Atrial fibrillation Assessment & Plan: controlled (6) Pulmonary edema (7) COPD (chronic obstructive pulmonary disease) (8) CAD (coronary artery disease) (9) Dementia with behavioral disturbance Respiratory: monitor respiratory rate, adjust FIO2, CXR Cardiac: continue to monitor HR/BP Renal: F/U I&O Infectious Disease: check cultures Gastrointestinal: continue feedings/current rate Endocrine: monitor blood sugar Hematologic: monitor H/H, transfuse if hgb<8.5 Neurologic: PRN Ativan, keep patient comfortable Disposition: keep in ICU Notes Reviewed: cardio, renal Discussed with: nurses, 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, 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 - Objective Last 24 Hour Vital Signs Date Time Temp Pulse Resp B/P (MAP) Pulse Ox O2 Delivery O2 Flow Rate FiO2 08/27/19 10:00 86 19 149/69 (95) 99 08/27/19 09:29 75 19 30 30 08/27/19 09:22 95 08/27/19 09:00 68 16 120/53 (75) 96 08/27/19 08:00 Mechanical Ventilator Mechanical Ventilator 08/27/19 08:00 74 08/27/19 08:00 30 08/27/19 08:00 99.3 74 16 137/63 (87) 96 08/27/19 07:00 73 16 30 08/27/19 07:00 73 16 136/65 (88) 97 08/27/19 06:24 73 16 08/27/19 06:00 73 16 127/53 (77) 94 08/27/19 05:00 97.5 71 17 122/52 (75) 96 08/27/19 04:48 71 18 30 08/27/19 04:00 Mechanical Ventilator Mechanical Ventilator 08/27/19 04:00 30 08/27/19 04:00 78 20 151/56 (87) 97 08/27/19 03:12 71 08/27/19 03:00 77 21 140/52 (81) 100 08/27/19 02:30 73 16 30 08/27/19 02:00 75 16 121/52 (75) 98 08/27/19 01:00 74 16 125/54 (77) 99 3/25/20 00:31 76 17 30 08/27/19 00:00 30 08/27/19 00:00 98.8 78 17 128/60 (82) 99 08/27/19 00:00 Mechanical Ventilator Mechanical Ventilator 08/26/19 23:08 70 08/26/19 23:00 72 16 123/52 (75) 98 08/26/19 22:16 74 16 100 Mechanical Ventilator 30 77 18 30 08/26/19 22:00 69 16 125/53 (77) 100 08/26/19 21:29 67 16 30 08/26/19 21:00 98.8 72 16 131/57 (81) 100 08/26/19 20:00 30 08/26/19 20:00 73 16 114/50 (71) 99 08/26/19 20:00 Mechanical Ventilator Mechanical Ventilator 08/26/19 19:53 88 08/26/19 19:01 88 16 30 08/26/19 19:00 87 16 123/54 (77) 99 08/26/19 18:00 94 16 150/66 (94) 100 08/26/19 17:51 98 08/26/19 17:44 106 20 30 08/26/19 17:07 77 19 30 30 08/26/19 17:00 98.2 77 18 176/66 (102) 96 08/26/19 16:56 77 18 30 08/26/19 16:00 82 08/26/19 16:00 80 16 151/62 (91) 97 08/26/19 16:00 Mechanical Ventilator Mechanical Ventilator 08/26/19 16:00 30 08/26/19 15:16 85 19 30 08/26/19 15:00 79 17 138/54 (82) 97 08/26/19 14:00 82 20 138/56 (83) 97 08/26/19 13:30 75 18 30 08/26/19 13:00 73 16 126/54 (78) 97 08/26/19 12:00 72 08/26/19 12:00 Mechanical Ventilator Mechanical Ventilator 08/26/19 12:00 30 08/26/19 12:00 80 16 142/58 (86) 97 08/26/19 11:10 71 17 30 08/26/19 11:00 75 16 126/55 (78) 96 Status: awake Condition: critical HEENT: atraumatic Neck: full ROM Lungs: clear Heart: HR/BP stable Abdomen: soft Extremities: no C/C/E Accucheck: 153 Critical Care - Subjective ROS Limited/Unobtainable: No Condition: critical EKG Rhythm: Sinus Rhythm FI02: 30 Vent Support Breath Rate: 16 Vent Support Mode: CPAP Vent Tidal Volume: 600 Sputum Amount: Small PEEP: 5.0 PIP: 14 Tube Feeding Amount: 0 I&O: Intake and Output 08/26/19 08/27/19 19:00 07:00 Intake Total 790 ml 755 ml Output Total 750 ml 1650 ml Balance 40 ml -895 ml Free Water 100 ml Tube Feeding 660 ml 605 ml Other 30 ml 150 ml Output Urine Total 750 ml 1650 ml # Bowel Movements 2 ET-Tube: 8.0 ET Position: 24 Nicole Graves MD Aug 27, 2019 10:51
--- NOTE | 2019-08-27 11:35 | Nephrology Progress Note ---
Assessment/Plan Problem List: (1) AUREA (acute kidney injury) Assessment: Serum creatinine rising (2) Cardiopulmonary arrest (3) Respiratory failure (4) Cardiomyopathy (5) Obesity (BMI 30.0-34.9) (6) DMII (diabetes mellitus, type 2) Assessment Acute Renal Failure : AUREA Most likely due to cardiorespiratory arrest and episode of hypotension. Patient also has cardiomyopathy with Ej Fx of 40 % on admission Obese : BMI 34.4 ? DM Other Dx (1) Cardiopulmonary arrest (2) Nosocomial pneumonia (3) Acute respiratory failure (4) COPD (chronic obstructive pulmonary disease) (5) Atrial fibrillation (6) Dementia with behavioral disturbance (7) CAD (coronary artery disease) Plan No lab work for today, will check labs for tomorrow D5 W IV fluids for hypernatremia as needed pressors are off now patient's condition somewhat more stable In ICU He is intubated ventilator, weaning is being tried His blood pressure is more stable Overall he is still doing poorly Adjust blood pressure medications Stress dose of steroids which we will start tapering today Previously Monitor renal parameters. Serum creatinine improved Monitor urine output. Urine output improved. Avoid nephrotoxics. Weaning as possible. Remains intubated at this time. Correct electrolyte imbalances. Change tube feeding to Glucerna. Subjective ROS Limited/Unobtainable: Yes Objective Objective Last 24 Hour Vital Signs Date Time Temp Pulse Resp B/P (MAP) Pulse Ox O2 Delivery O2 Flow Rate FiO2 08/27/19 11:14 100 20 30 08/27/19 11:13 101 21 94 Mechanical Ventilator 40 08/27/19 11:00 106 23 152/55 (87) 95 08/27/19 10:00 86 19 149/69 (95) 99 08/27/19 09:29 75 19 30 30 08/27/19 09:22 95 08/27/19 09:00 68 16 120/53 (75) 96 08/27/19 08:00 Mechanical Ventilator Mechanical Ventilator 08/27/19 08:00 74 08/27/19 08:00 30 08/27/19 08:00 99.3 74 16 137/63 (87) 96 08/27/19 07:00 73 16 30 08/27/19 07:00 73 16 136/65 (88) 97 08/27/19 06:24 73 16 08/27/19 06:00 73 16 127/53 (77) 94 08/27/19 05:00 97.5 71 17 122/52 (75) 96 08/27/19 04:48 71 18 30 08/27/19 04:00 Mechanical Ventilator Mechanical Ventilator 08/27/19 04:00 30 08/27/19 04:00 78 20 151/56 (87) 97 08/27/19 03:12 71 08/27/19 03:00 77 21 140/52 (81) 100 08/27/19 02:30 73 16 30 08/27/19 02:00 75 16 121/52 (75) 98 08/27/19 01:00 74 16 125/54 (77) 99 08/27/19 00:31 76 17 30 08/27/19 00:00 30 08/27/19 00:00 98.8 78 17 128/60 (82) 99 08/27/19 00:00 Mechanical Ventilator Mechanical Ventilator 08/26/19 23:08 70 08/26/19 23:00 72 16 123/52 (75) 98 08/26/19 22:16 74 16 100 Mechanical Ventilator 30 77 18 30 08/26/19 22:00 69 16 125/53 (77) 100 08/26/19 21:29 67 16 30 08/26/19 21:00 98.8 72 16 131/57 (81) 100 08/26/19 20:00 30 08/26/19 20:00 73 16 114/50 (71) 99 08/26/19 20:00 Mechanical Ventilator Mechanical Ventilator 08/26/19 19:53 88 08/26/19 19:01 88 16 30 08/26/19 19:00 87 16 123/54 (77) 99 08/26/19 18:00 94 16 150/66 (94) 100 08/26/19 17:51 98 08/26/19 17:44 106 20 30 08/26/19 17:07 77 19 30 30 08/26/19 17:00 98.2 77 18 176/66 (102) 96 08/26/19 16:56 77 18 30 08/26/19 16:00 82 08/26/19 16:00 80 16 151/62 (91) 97 08/26/19 16:00 Mechanical Ventilator Mechanical Ventilator 08/26/19 16:00 30 08/26/19 15:16 85 19 30 08/26/19 15:00 79 17 138/54 (82) 97 08/26/19 14:00 82 20 138/56 (83) 97 08/26/19 13:30 75 18 30 08/26/19 13:00 73 16 126/54 (78) 97 08/26/19 12:00 72 08/26/19 12:00 Mechanical Ventilator Mechanical Ventilator 08/26/19 12:00 30 08/26/19 12:00 80 16 142/58 (86) 97 Intake and Output 08/26/19 08/27/19 19:00 07:00 Intake Total 790 ml 755 ml Output Total 750 ml 1650 ml Balance 40 ml -895 ml Free Water 100 ml Tube Feeding 660 ml 605 ml Other 30 ml 150 ml Output Urine Total 750 ml 1650 ml # Bowel Movements 2 Height (Feet): 5 Height (Inches): 6.00 Weight (Pounds): 218 General Appearance: no apparent distress EENT: other - Remains intubated on ventilator Cardiovascular: tachycardia, other - Variable rate Respiratory/Chest: decreased breath sounds Abdomen: distended Objective no change Yunior Sexton MD Aug 27, 2019 11:35
--- NOTE | 2019-08-27 12:17 | Surgery Progress Note ---
Surgery Progress Note Subjective Additional Comments weaning again today tolerating so far some responsiveness but not appropriate fully kub noted Objective Last 24 Hour Vital Signs Date Time Temp Pulse Resp B/P (MAP) Pulse Ox O2 Delivery O2 Flow Rate FiO2 08/27/19 12:00 30 08/27/19 11:14 100 20 30 08/27/19 11:13 101 21 94 Mechanical Ventilator 40 08/27/19 11:00 106 23 152/55 (87) 95 08/27/19 10:00 86 19 149/69 (95) 99 08/27/19 09:29 75 19 30 30 08/27/19 09:22 95 08/27/19 09:00 68 16 120/53 (75) 96 08/27/19 08:00 Mechanical Ventilator Mechanical Ventilator 08/27/19 08:00 74 08/27/19 08:00 30 08/27/19 08:00 99.3 74 16 137/63 (87) 96 08/27/19 07:00 73 16 30 08/27/19 07:00 73 16 136/65 (88) 97 08/27/19 06:24 73 16 08/27/19 06:00 73 16 127/53 (77) 94 08/27/19 05:00 97.5 71 17 122/52 (75) 96 08/27/19 04:48 71 18 30 08/27/19 04:00 Mechanical Ventilator Mechanical Ventilator 08/27/19 04:00 30 08/27/19 04:00 78 20 151/56 (87) 97 08/27/19 03:12 71 08/27/19 03:00 77 21 140/52 (81) 100 08/27/19 02:30 73 16 30 08/27/19 02:00 75 16 121/52 (75) 98 08/27/19 01:00 74 16 125/54 (77) 99 08/27/19 00:31 76 17 30 08/27/19 00:00 30 08/27/19 00:00 98.8 78 17 128/60 (82) 99 08/27/19 00:00 Mechanical Ventilator Mechanical Ventilator 08/26/19 23:08 70 08/26/19 23:00 72 16 123/52 (75) 98 08/26/19 22:16 74 16 100 Mechanical Ventilator 30 77 18 30 08/26/19 22:00 69 16 125/53 (77) 100 08/26/19 21:29 67 16 30 08/26/19 21:00 98.8 72 16 131/57 (81) 100 08/26/19 20:00 30 08/26/19 20:00 73 16 114/50 (71) 99 08/26/19 20:00 Mechanical Ventilator Mechanical Ventilator 08/26/19 19:53 88 08/26/19 19:01 88 16 30 08/26/19 19:00 87 16 123/54 (77) 99 08/26/19 18:00 94 16 150/66 (94) 100 08/26/19 17:51 98 08/26/19 17:44 106 20 30 08/26/19 17:07 77 19 30 30 08/26/19 17:00 98.2 77 18 176/66 (102) 96 08/26/19 16:56 77 18 30 08/26/19 16:00 82 08/26/19 16:00 80 16 151/62 (91) 97 08/26/19 16:00 Mechanical Ventilator Mechanical Ventilator 08/26/19 16:00 30 08/26/19 15:16 85 19 30 08/26/19 15:00 79 17 138/54 (82) 97 08/26/19 14:00 82 20 138/56 (83) 97 08/26/19 13:30 75 18 30 08/26/19 13:00 73 16 126/54 (78) 97 I&O Intake and Output 08/26/19 08/27/19 19:00 07:00 Intake Total 790 ml 755 ml Output Total 750 ml 1650 ml Balance 40 ml -895 ml Free Water 100 ml Tube Feeding 660 ml 605 ml Other 30 ml 150 ml Output Urine Total 750 ml 1650 ml # Bowel Movements 2 Dressing: other Wound: other Drains: other Cardiovascular: RSR Respiratory: decreased breath sounds Abdomen: soft, non-tender, present bowel sounds Extremities: no edema, no cyanosis Plan Problems: (1) Nosocomial pneumonia (2) AUREA (acute kidney injury) (3) Cardiomyopathy (4) Obesity (BMI 30.0-34.9) (5) DMII (diabetes mellitus, type 2) (6) Cardiac LV ejection fraction 40% (7) Pulmonary edema (8) Cardiopulmonary arrest Assessment & Plan: Cardiopulmonary arrest septic requiring urgent emergency line placement for pressors and fluids and meds Please see procedure report Full examination performed no other surgical issues found at this time etiology unknown likely surgical in nature Antibiotics fluids Pressors Vent weaning trials right groin site okay. no hematoma. no bleeding left arm picc okay NG tube is present in good position. A partial left lateral decubitus view of the abdomen performed as well as a supine view. The left lateral decubitus view is not adequate as the area of interest which would be the nondependent right side of the abdomen, which is the area of interest was not imaged and is beyond the field-of -view of the x-ray. Bowel gas pattern appears nonobstructive on the basis of the partial images obtained. off pressors labs reviewed cont tube feeds Unable to wean from ventilator. Labs noted ABG noted imaging reviewed cont weaning. if possible extubate otherwise will consider trach (9) Respiratory failure (10) History of hypertension (11) COPD (chronic obstructive pulmonary disease) (12) CAD (coronary artery disease) (13) Atrial fibrillation (14) Dementia with behavioral disturbance (15) Upper respiratory infection (16) Acute respiratory failure (17) Dyspnea (18) UTI (urinary tract infection) Prosper Hummel Aug 27, 2019 12:17
[2019-08-27] MEDS: Dyna-Hex 2% Top Sol 2oz TOPIC SCH (19:40)
[2019-08-27] MEDS: Atorvastatin 20mg tab NG SCH (20:51)
[2019-08-27] MEDS: ZyPREXA Zydis 5mg tab NG SCH (20:51)
[2019-08-28] VITALS (24 sets, daily range): BP systolic 111–181; BP diastolic 53–74
--- NOTE | 2019-08-28 01:45 | Progress Note ---
DATE: 08/27/2019 SUBJECTIVE: The patient is arousable. Afebrile and hemodynamically stable. PHYSICAL EXAMINATION: VITAL SIGNS: Blood pressure is 120/54, his pulse is 65, respirations of 16, and temperature is 98.3. HEENT: Eyes were normal. ENT, mucous membranes were moist and intact. NECK: Supple with no JVD. LUNGS: Clear. HEART: Normal sounds with regular beats. ABDOMEN: Soft and nontender with normal bowel sounds. EXTREMITIES: Warm without cyanosis, clubbing, or edema. LABORATORY AND DIAGNOSTIC DATA: Hemoglobin is 10.7, hematocrit 30.7, MCV of 92, WBC of 7.5, and platelets are 221,000. His BUN and creatinine are 27 and 0.7 respectively. His sodium is 146, potassium 3.7, chloride 110, and CO2 is 30. His last chest x-ray from 08/26/2019 revealed suboptimal studies. IMPRESSION: The patient was taken off today from the ventilator assistance and was able to remain machine independent for 1 hour and 15 minutes. It was the impression of the records management technician that the patient can be extubated in a.m. In addition, yesterday the patient has low urine output. Lasix IV was given, and 1300 mL of urine was obtained as a result of this medication. Today's urine output was 550. The patient is in stable condition. He is expected to be weaned in a.m. from the ventilator. Modesta Mulligan M.D. DR: ELIS JOB#: [id number] CC:
--- NOTE | 2019-08-28 01:45 | Progress Note ---
DATE: 08/27/2019 CARDIOLOGY PROGRESS NOTE SUBJECTIVE: The patient is on ventilator support. Weaning efforts are ongoing. Trach is being considered. PHYSICAL EXAMINATION: VITAL SIGNS: Blood pressure 120/54, heart rate 65, respiratory rate 16, and afebrile. LUNGS: Coarse breath sounds. Rhonchi. CARDIAC: Regular rhythm and rate. Normal S1 and S2. Monitor reveals sinus rhythm and sinus bradycardia with bundle-branch block. ABDOMEN: Soft. EXTREMITIES: No edema. IMPRESSION: 1. Acute on chronic systolic and diastolic congestive heart failure. 2. Dehydration and hypernatremia. 3. Respiratory failure. 4. Severe protein-calorie malnutrition. 5. Acute non-ST elevation myocardial infarction. 6. Status post cardiopulmonary arrest. 7. Bradyarrhythmia associated with acute respiratory failure. 8. Underlying conduction system disease of the heart. PLAN: 1. . 2. Recheck lab studies. 3. Trend natriuretic peptide assay. 4. Diuresis based on clinical parameters. 5. Weaning efforts. 6. Consideration for trach. 7. Free water replacement as needed. 8. Maximize anti-failure regimen. 9. Off amiodarone due to bradycardic potential. Saeed Sim M.D. DR: LIZETTE JOB#: [id number] CC:
[2019-08-28 04:35] LABS: BASOPHILS % (AUTO) 0.5 % (0.0-2.0); EOSINOPHILS % (AUTO) 2.8 % (0.0-3.0); HEMATOCRIT 29.4 % (42.0-52.0); LYMPHOCYTES % (AUTO) 11.1 % (20.0-45.0); MEAN CORPUSCULAR VOLUME 93 FL (80-99); MONOCYTES % (AUTO) 8.4 % (1.0-10.0); NEUTROPHILS % (AUTO) 77.2 % (45.0-75.0); PLATELET COUNT 240 K/UL (150-450); RED BLOOD COUNT 3.15 M/UL (4.70-6.10); RED CELL DISTRIBUTION WIDTH 13.5 % (11.6-14.8); WHITE BLOOD COUNT 8.6 K/UL (4.8-10.8)
[2019-08-28 05:14] LABS: ALANINE AMINOTRANSFERASE 20 U/L (12-78); ALBUMIN 1.9 G/DL (3.4-5.0); ALBUMIN/GLOBULIN RATIO 0.7 (1.0-2.7); ALKALINE PHOSPHATASE 89 U/L (46-116); ANION GAP 3 mmol/L (5-15); ASPARTATE AMINO TRANSFERASE 15 U/L (15-37); BILIRUBIN,TOTAL 0.7 MG/DL (0.2-1.0); BLOOD UREA NITROGEN 39 mg/dL (7-18); CALCIUM 8.7 MG/DL (8.5-10.1); CARBON DIOXIDE 32 MMOL/L (21-32); CHLORIDE 108 MMOL/L (98-107); CREATININE 0.7 MG/DL (0.55-1.30); PHOSPHORUS 3.3 MG/DL (2.5-4.9); POTASSIUM 3.8 MMOL/L (3.5-5.1); SODIUM 143 MMOL/L (136-145)
[2019-08-28] MEDS: Amiodarone 200mg tab NG SCH (08:49)
[2019-08-28] MEDS: Pantoprazole Inj IVP SCH ×2 (08:49→20:40)
[2019-08-28] MEDS: Heparin 5000 units/ml inj SUBQ SCH ×2 (08:50→20:41)
--- NOTE | 2019-08-28 10:27 | Diagnostic Imaging Report ---
Indication: Dyspnea Comparison: 08/26/2019 A single view chest radiograph was obtained. Findings: The heart is mildly enlarged. There is suggestion of basilar atelectasis versus scarring. No infiltrate is seen. NG tube and endotracheal tube appear in good position. The bones are osteopenic. IMPRESSION: Basilar scarring versus atelectasis.
--- NOTE | 2019-08-28 11:12 | Pulmonolgy Critical Care Note ---
Critical Care - Asmt/Plan Problems: (1) Acute respiratory failure (2) Cardiopulmonary arrest (3) Cardiac LV ejection fraction 40% (4) Nosocomial pneumonia (5) Atrial fibrillation Assessment & Plan: controlled (6) Pulmonary edema (7) COPD (chronic obstructive pulmonary disease) (8) CAD (coronary artery disease) (9) Dementia with behavioral disturbance Respiratory: monitor respiratory rate, adjust FIO2, CXR, weaning trial, other - extubate now, cxr is the best has been and pt has tolerated weaning very well. Cardiac: continue to monitor HR/BP Renal: F/U I&O, keep IV fluid Infectious Disease: check cultures, continue antibiotics Gastrointestinal: continue feedings/current rate Endocrine: check TSH Hematologic: monitor H/H, transfuse if hgb<8.5 Neurologic: PRN Ativan, keep patient comfortable Affect: PRN ativan Prophylaxis: Protonix Notes Reviewed: assembler flexible leads, renal Discussed with: consultants Critical Care - Objective Last 24 Hour Vital Signs Date Time Temp Pulse Resp B/P (MAP) Pulse Ox O2 Delivery O2 Flow Rate FiO2 08/28/19 10:00 30 08/28/19 10:00 86 20 147/71 (96) 95 08/28/19 09:02 97 08/28/19 09:00 30 08/28/19 09:00 86 19 181/71 (107) 94 08/28/19 08:40 67 18 30 08/28/19 08:00 62 08/28/19 08:00 Mechanical Ventilator Mechanical Ventilator 08/28/19 08:00 30 08/28/19 08:00 98.6 63 16 132/56 (81) 97 08/28/19 07:29 64 16 30 08/28/19 07:00 64 16 134/53 (80) 98 08/28/19 06:33 65 16 08/28/19 06:00 65 16 128/57 (80) 97 08/28/19 05:05 65 16 30 08/28/19 05:00 65 16 118/56 (76) 98 08/28/19 04:00 Mechanical Ventilator Mechanical Ventilator 08/28/19 04:00 98.7 74 16 149/57 (87) 99 08/28/19 04:00 30 08/28/19 03:05 74 16 30 08/28/19 03:02 80 08/28/19 03:00 70 16 111/70 (84) 97 08/28/19 02:00 82 16 152/63 (92) 98 08/28/19 01:13 75 16 30 08/28/19 01:00 67 16 126/53 (77) 98 08/28/19 00:00 Mechanical Ventilator Mechanical Ventilator 08/28/19 00:00 75 08/28/19 00:00 97.8 75 21 135/55 (81) 97 08/28/19 00:00 30 08/27/19 23:05 67 16 30 08/27/19 23:00 65 16 120/54 (76) 96 08/27/19 22:00 65 16 107/50 (69) 95 08/27/19 21:45 69 16 99 Mechanical Ventilator 30 08/27/19 21:30 68 16 Mechanical Ventilator 30 30 08/27/19 21:00 69 16 123/51 (75) 96 08/27/19 20:00 Mechanical Ventilator Mechanical Ventilator 08/27/19 20:00 30 08/27/19 20:00 98.3 67 16 119/49 (72) 95 08/27/19 19:38 71 08/27/19 19:08 72 16 30 08/27/19 19:00 66 16 118/53 (74) 97 08/27/19 18:00 74 16 121/56 (77) 96 08/27/19 17:00 73 16 136/53 (80) 98 08/27/19 16:57 72 16 30 08/27/19 16:00 98.6 74 17 118/47 (70) 97 08/27/19 16:00 30 08/27/19 16:00 72 08/27/19 16:00 Mechanical Ventilator Mechanical Ventilator 08/27/19 15:00 81 18 134/53 (80) 97 08/27/19 14:31 71 16 30 08/27/19 14:00 98.1 72 16 107/47 (67) 97 08/27/19 13:05 70 16 30 08/27/19 13:00 77 17 127/59 (81) 98 08/27/19 12:00 Mechanical Ventilator Mechanical Ventilator 08/27/19 12:00 100.0 83 16 104/56 (72) 94 08/27/19 12:00 73 08/27/19 12:00 30 3/25/20 11:14 100 20 30 08/27/19 11:13 101 21 94 Mechanical Ventilator 40 Condition: improving HEENT: atraumatic Neck: full ROM Lungs: clear Heart: HR/BP stable Abdomen: soft Extremities: no C/C/E Accucheck: 153 Critical Care - Subjective ROS Limited/Unobtainable: Yes Condition: critical EKG Rhythm: Sinus Rhythm FI02: 30 Vent Support Breath Rate: 16 Vent Support Mode: AC Vent Tidal Volume: 600 Sputum Amount: Small PEEP: 5.0 PIP: 42 Tube Feeding Amount: 0 I&O: Intake and Output 08/27/19 08/28/19 19:00 07:00 Intake Total 540 ml 595 ml Output Total 515 ml 185 ml Balance 25 ml 410 ml Tube Feeding 440 ml 495 ml Other 100 ml 100 ml Output Urine Total 515 ml 185 ml # Bowel Movements 2 2 ET-Tube: 8.0 ET Position: 24 Labs: Laboratory Tests Test 08/28/19 03:30 08/28/19 08:38 White Blood Count 8.6 K/UL (4.8-10.8) Red Blood Count 3.15 M/UL (4.70-6.10) L Hemoglobin 10.0 G/DL (14.2-18.0) L Hematocrit 29.4 % (42.0-52.0) L Mean Corpuscular Volume 93 FL (80-99) Mean Corpuscular Hemoglobin 31.7 PG (27.0-31.0) H Mean Corpuscular Hemoglobin Concent 34.0 G/DL (32.0-36.0) Red Cell Distribution Width 13.5 % (11.6-14.8) Platelet Count 240 K/UL (150-450) Mean Platelet Volume 5.6 FL (6.5-10.1) L Neutrophils (%) (Auto) 77.2 % (45.0-75.0) H Lymphocytes (%) (Auto) 11.1 % (20.0-45.0) L Monocytes (%) (Auto) 8.4 % (1.0-10.0) Eosinophils (%) (Auto) 2.8 % (0.0-3.0) Basophils (%) (Auto) 0.5 % (0.0-2.0) Prothrombin Time 10.9 SEC (9.30-11.50) Prothromb Time International Ratio 1.0 (0.9-1.1) Activated Partial Thromboplast Time 31 SEC (23-33) Sodium Level 143 MMOL/L (136-145) Potassium Level 3.8 MMOL/L (3.5-5.1) Chloride Level 108 MMOL/L (98-107) H Carbon Dioxide Level 32 MMOL/L (21-32) Anion Gap 3 mmol/L (5-15) L Blood Urea Nitrogen 39 mg/dL (7-18) H Creatinine 0.7 MG/DL (0.55-1.30) Estimat Glomerular Filtration Rate > 60 mL/min (>60) Glucose Level 132 MG/DL (74-106) H Uric Acid 2.9 MG/DL (2.6-7.2) Calcium Level 8.7 MG/DL (8.5-10.1) Phosphorus Level 3.3 MG/DL (2.5-4.9) Magnesium Level 2.0 MG/DL (1.8-2.4) Total Bilirubin 0.7 MG/DL (0.2-1.0) Aspartate Amino Transf (AST/SGOT) 15 U/L (15-37) Alanine Aminotransferase (ALT/SGPT) 20 U/L (12-78) Alkaline Phosphatase 89 U/L (46-116) C-Reactive Protein, Quantitative 8.7 mg/dL (0.00-0.90) H Pro-B-Type Natriuretic Peptide 2541 pg/mL (0-125) H Total Protein 4.7 G/DL (6.4-8.2) L Albumin 1.9 G/DL (3.4-5.0) L Globulin 2.8 g/dL Albumin/Globulin Ratio 0.7 (1.0-2.7) L Arterial Blood pH 7.454 (7.350-7.450) Arterial Blood Partial Pressure CO2 43.2 mmHg (35.0-45.0) Arterial Blood Partial Pressure O2 101.6 mmHg (75.0-100.0) H Arterial Blood HCO3 29.6 mmol/L (22.0-26.0) H Arterial Blood Oxygen Saturation 97.1 % (95-100) Arterial Blood Base Excess 5.2 (-2-2) H Joe Test Positive Nicole Graves MD Aug 28, 2019 11:12
[2019-08-28] MEDS: Colistin for inhalation INH SCH ×2 (11:23→21:44)
--- NOTE | 2019-08-28 12:30 | Surgery Progress Note ---
Surgery Progress Note Subjective Additional Comments continue to wean as tolerating labs noted cxr reviewed exam stable some meaningful movements Objective Last 24 Hour Vital Signs Date Time Temp Pulse Resp B/P (MAP) Pulse Ox O2 Delivery O2 Flow Rate FiO2 08/28/19 12:00 91 08/28/19 11:10 72 18 100 Mechanical Ventilator 6.0 30 75 18 30 08/28/19 11:00 82 18 153/74 (100) 99 08/28/19 10:00 30 08/28/19 10:00 86 20 147/71 (96) 95 08/28/19 09:02 97 08/28/19 09:00 30 08/28/19 09:00 86 19 181/71 (107) 94 08/28/19 08:40 67 18 30 08/28/19 08:00 62 08/28/19 08:00 Mechanical Ventilator Mechanical Ventilator 08/28/19 08:00 30 08/28/19 08:00 98.6 63 16 132/56 (81) 97 08/28/19 07:29 64 16 30 08/28/19 07:00 64 16 134/53 (80) 98 08/28/19 06:33 65 16 08/28/19 06:00 65 16 128/57 (80) 97 08/28/19 05:05 65 16 30 08/28/19 05:00 65 16 118/56 (76) 98 08/28/19 04:00 Mechanical Ventilator Mechanical Ventilator 08/28/19 04:00 98.7 74 16 149/57 (87) 99 08/28/19 04:00 30 08/28/19 03:05 74 16 30 08/28/19 03:02 80 08/28/19 03:00 70 16 111/70 (84) 97 08/28/19 02:00 82 16 152/63 (92) 98 08/28/19 01:13 75 16 30 08/28/19 01:00 67 16 126/53 (77) 98 08/28/19 00:00 Mechanical Ventilator Mechanical Ventilator 08/28/19 00:00 75 08/28/19 00:00 97.8 75 21 135/55 (81) 97 08/28/19 00:00 30 08/27/19 23:05 67 16 30 08/27/19 23:00 65 16 120/54 (76) 96 08/27/19 22:00 65 16 107/50 (69) 95 08/27/19 21:45 69 16 99 Mechanical Ventilator 30 08/27/19 21:30 68 16 Mechanical Ventilator 30 30 08/27/19 21:00 69 16 123/51 (75) 96 08/27/19 20:00 Mechanical Ventilator Mechanical Ventilator 08/27/19 20:00 30 08/27/19 20:00 98.3 67 16 119/49 (72) 95 08/27/19 19:38 71 08/27/19 19:08 72 16 30 08/27/19 19:00 66 16 118/53 (74) 97 08/27/19 18:00 74 16 121/56 (77) 96 08/27/19 17:00 73 16 136/53 (80) 98 08/27/19 16:57 72 16 30 08/27/19 16:00 98.6 74 17 118/47 (70) 97 08/27/19 16:00 30 08/27/19 16:00 72 08/27/19 16:00 Mechanical Ventilator Mechanical Ventilator 08/27/19 15:00 81 18 134/53 (80) 97 08/27/19 14:31 71 16 30 08/27/19 14:00 98.1 72 16 107/47 (67) 97 08/27/19 13:05 70 16 30 08/27/19 13:00 77 17 127/59 (81) 98 I&O Intake and Output 08/27/19 08/28/19 19:00 07:00 Intake Total 540 ml 595 ml Output Total 515 ml 185 ml Balance 25 ml 410 ml Tube Feeding 440 ml 495 ml Other 100 ml 100 ml Output Urine Total 515 ml 185 ml # Bowel Movements 2 2 Dressing: dry Wound: clean Cardiovascular: RSR Respiratory: clear, decreased breath sounds Abdomen: soft, non-tender, present bowel sounds Extremities: no tenderness, no cyanosis Laboratory Tests Test 08/28/19 03:30 08/28/19 08:38 White Blood Count 8.6 K/UL (4.8-10.8) Red Blood Count 3.15 M/UL (4.70-6.10) L Hemoglobin 10.0 G/DL (14.2-18.0) L Hematocrit 29.4 % (42.0-52.0) L Mean Corpuscular Volume 93 FL (80-99) Mean Corpuscular Hemoglobin 31.7 PG (27.0-31.0) H Mean Corpuscular Hemoglobin Concent 34.0 G/DL (32.0-36.0) Red Cell Distribution Width 13.5 % (11.6-14.8) Platelet Count 240 K/UL (150-450) Mean Platelet Volume 5.6 FL (6.5-10.1) L Neutrophils (%) (Auto) 77.2 % (45.0-75.0) H Lymphocytes (%) (Auto) 11.1 % (20.0-45.0) L Monocytes (%) (Auto) 8.4 % (1.0-10.0) Eosinophils (%) (Auto) 2.8 % (0.0-3.0) Basophils (%) (Auto) 0.5 % (0.0-2.0) Prothrombin Time 10.9 SEC (9.30-11.50) Prothromb Time International Ratio 1.0 (0.9-1.1) Activated Partial Thromboplast Time 31 SEC (23-33) Sodium Level 143 MMOL/L (136-145) Potassium Level 3.8 MMOL/L (3.5-5.1) Chloride Level 108 MMOL/L (98-107) H Carbon Dioxide Level 32 MMOL/L (21-32) Anion Gap 3 mmol/L (5-15) L Blood Urea Nitrogen 39 mg/dL (7-18) H Creatinine 0.7 MG/DL (0.55-1.30) Estimat Glomerular Filtration Rate > 60 mL/min (>60) Glucose Level 132 MG/DL (74-106) H Uric Acid 2.9 MG/DL (2.6-7.2) Calcium Level 8.7 MG/DL (8.5-10.1) Phosphorus Level 3.3 MG/DL (2.5-4.9) Magnesium Level 2.0 MG/DL (1.8-2.4) Total Bilirubin 0.7 MG/DL (0.2-1.0) Aspartate Amino Transf (AST/SGOT) 15 U/L (15-37) Alanine Aminotransferase (ALT/SGPT) 20 U/L (12-78) Alkaline Phosphatase 89 U/L (46-116) C-Reactive Protein, Quantitative 8.7 mg/dL (0.00-0.90) H Pro-B-Type Natriuretic Peptide 2541 pg/mL (0-125) H Total Protein 4.7 G/DL (6.4-8.2) L Albumin 1.9 G/DL (3.4-5.0) L Globulin 2.8 g/dL Albumin/Globulin Ratio 0.7 (1.0-2.7) L Arterial Blood pH 7.454 (7.350-7.450) Arterial Blood Partial Pressure CO2 43.2 mmHg (35.0-45.0) Arterial Blood Partial Pressure O2 101.6 mmHg (75.0-100.0) H Arterial Blood HCO3 29.6 mmol/L (22.0-26.0) H Arterial Blood Oxygen Saturation 97.1 % (95-100) Arterial Blood Base Excess 5.2 (-2-2) H Joe Test Positive Plan Problems: (1) Nosocomial pneumonia (2) AUREA (acute kidney injury) (3) Cardiomyopathy (4) Obesity (BMI 30.0-34.9) (5) DMII (diabetes mellitus, type 2) (6) Cardiac LV ejection fraction 40% (7) Pulmonary edema (8) Cardiopulmonary arrest Assessment & Plan: Cardiopulmonary arrest septic requiring urgent emergency line placement for pressors and fluids and meds Please see procedure report Full examination performed no other surgical issues found at this time etiology unknown likely surgical in nature Antibiotics fluids Pressors Vent weaning trials right groin site okay. no hematoma. no bleeding left arm picc okay NG tube is present in good position. A partial left lateral decubitus view of the abdomen performed as well as a supine view. The left lateral decubitus view is not adequate as the area of interest which would be the nondependent right side of the abdomen, which is the area of interest was not imaged and is beyond the field-of -view of the x-ray. Bowel gas pattern appears nonobstructive on the basis of the partial images obtained. off pressors labs reviewed cont tube feeds Unable to wean from ventilator. Labs noted ABG noted imaging reviewed cont weaning. if possible extubate otherwise will consider trach (9) Respiratory failure (10) History of hypertension (11) COPD (chronic obstructive pulmonary disease) (12) CAD (coronary artery disease) (13) Atrial fibrillation (14) Dementia with behavioral disturbance (15) Upper respiratory infection (16) Acute respiratory failure (17) Dyspnea (18) UTI (urinary tract infection) Prosper Hummel Aug 28, 2019 12:30
--- NOTE | 2019-08-28 13:34 | Nephrology Progress Note ---
Assessment/Plan Problem List: (1) AUREA (acute kidney injury) Assessment: Serum creatinine rising (2) Cardiopulmonary arrest (3) Respiratory failure (4) Cardiomyopathy (5) Obesity (BMI 30.0-34.9) (6) DMII (diabetes mellitus, type 2) Assessment Acute Renal Failure : AUREA Most likely due to cardiorespiratory arrest and episode of hypotension. Patient also has cardiomyopathy with Ej Fx of 40 % on admission Obese : BMI 34.4 ? DM Other Dx (1) Cardiopulmonary arrest (2) Nosocomial pneumonia (3) Acute respiratory failure (4) COPD (chronic obstructive pulmonary disease) (5) Atrial fibrillation (6) Dementia with behavioral disturbance (7) CAD (coronary artery disease) Plan Today's labs reviewed D5 W IV fluids for hypernatremia as needed pressors are off now patient's condition somewhat more stable In ICU He is intubated ventilator, weaning is being tried His blood pressure is more stable Overall he is still doing poorly Adjust blood pressure medications Stress dose of steroids which we will start tapering today Previously Monitor renal parameters. Serum creatinine improved Monitor urine output. Urine output improved. Avoid nephrotoxics. Weaning as possible. Remains intubated at this time. Correct electrolyte imbalances. Change tube feeding to Glucerna. Subjective ROS Limited/Unobtainable: Yes Objective Objective Last 24 Hour Vital Signs Date Time Temp Pulse Resp B/P (MAP) Pulse Ox O2 Delivery O2 Flow Rate FiO2 08/28/19 12:00 98.7 88 20 159/64 (95) 100 08/28/19 12:00 Mechanical Ventilator Mechanical Ventilator 08/28/19 12:00 91 08/28/19 11:10 72 18 100 Mechanical Ventilator 6.0 30 75 18 30 08/28/19 11:00 82 18 153/74 (100) 99 08/28/19 10:00 30 08/28/19 10:00 86 20 147/71 (96) 95 08/28/19 09:02 97 08/28/19 09:00 30 08/28/19 09:00 86 19 181/71 (107) 94 08/28/19 08:40 67 18 30 08/28/19 08:00 62 08/28/19 08:00 Mechanical Ventilator Mechanical Ventilator 08/28/19 08:00 30 08/28/19 08:00 98.6 63 16 132/56 (81) 97 08/28/19 07:29 64 16 30 08/28/19 07:00 64 16 134/53 (80) 98 08/28/19 06:33 65 16 08/28/19 06:00 65 16 128/57 (80) 97 08/28/19 05:05 65 16 30 08/28/19 05:00 65 16 118/56 (76) 98 08/28/19 04:00 Mechanical Ventilator Mechanical Ventilator 08/28/19 04:00 98.7 74 16 149/57 (87) 99 08/28/19 04:00 30 08/28/19 03:05 74 16 30 08/28/19 03:02 80 08/28/19 03:00 70 16 111/70 (84) 97 08/28/19 02:00 82 16 152/63 (92) 98 08/28/19 01:13 75 16 30 08/28/19 01:00 67 16 126/53 (77) 98 08/28/19 00:00 Mechanical Ventilator Mechanical Ventilator 08/28/19 00:00 75 08/28/19 00:00 97.8 75 21 135/55 (81) 97 08/28/19 00:00 30 08/27/19 23:05 67 16 30 08/27/19 23:00 65 16 120/54 (76) 96 08/27/19 22:00 65 16 107/50 (69) 95 08/27/19 21:45 69 16 99 Mechanical Ventilator 30 08/27/19 21:30 68 16 Mechanical Ventilator 30 30 08/27/19 21:00 69 16 123/51 (75) 96 08/27/19 20:00 Mechanical Ventilator Mechanical Ventilator 08/27/19 20:00 30 08/27/19 20:00 98.3 67 16 119/49 (72) 95 08/27/19 19:38 71 08/27/19 19:08 72 16 30 08/27/19 19:00 66 16 118/53 (74) 97 08/27/19 18:00 74 16 121/56 (77) 96 08/27/19 17:00 73 16 136/53 (80) 98 08/27/19 16:57 72 16 30 08/27/19 16:00 98.6 74 17 118/47 (70) 97 08/27/19 16:00 30 08/27/19 16:00 72 08/27/19 16:00 Mechanical Ventilator Mechanical Ventilator 08/27/19 15:00 81 18 134/53 (80) 97 08/27/19 14:31 71 16 30 08/27/19 14:00 98.1 72 16 107/47 (67) 97 Intake and Output 08/27/19 08/28/19 19:00 07:00 Intake Total 540 ml 595 ml Output Total 515 ml 185 ml Balance 25 ml 410 ml Tube Feeding 440 ml 495 ml Other 100 ml 100 ml Output Urine Total 515 ml 185 ml # Bowel Movements 2 2 Laboratory Tests 08/28/19 03:30: White Blood Count 8.6, Red Blood Count 3.15L, Hemoglobin 10.0L, Hematocrit 29.4L , Mean Corpuscular Volume 93, Mean Corpuscular Hemoglobin 31.7H, Mean Corpuscular Hemoglobin Concent 34.0, Red Cell Distribution Width 13.5, Platelet Count 240, Mean Platelet Volume 5.6L, Neutrophils (%) (Auto) 77.2H, Lymphocytes (%) (Auto) 11.1L, Monocytes (%) (Auto) 8.4, Eosinophils (%) (Auto) 2.8, Basophils (%) (Auto) 0.5, Prothrombin Time 10.9, Prothromb Time International Ratio 1.0, Activated Partial Thromboplast Time 31, Sodium Level 143, Potassium Level 3.8, Chloride Level 108H, Carbon Dioxide Level 32, Anion Gap 3L, Blood Urea Nitrogen 39H, Creatinine 0.7, Estimat Glomerular Filtration Rate > 60, Glucose Level 132H, Uric Acid 2.9, Calcium Level 8.7, Phosphorus Level 3.3, Magnesium Level 2.0, Total Bilirubin 0.7, Aspartate Amino Transf (AST/SGOT) 15, Alanine Aminotransferase (ALT/SGPT) 20, Alkaline Phosphatase 89, C-Reactive Protein, Quantitative 8.7H, Pro-B-Type Natriuretic Peptide 2541H, Total Protein 4.7L, Albumin 1.9L, Globulin 2.8, Albumin/Globulin Ratio 0.7L 08/28/19 08:38: Arterial Blood pH 7.454H, Arterial Blood Partial Pressure CO2 43.2, Arterial Blood Partial Pressure O2 101.6H, Arterial Blood HCO3 29.6H, Arterial Blood Oxygen Saturation 97.1, Arterial Blood Base Excess 5.2H, Joe Test Positive Height (Feet): 5 Height (Inches): 6.00 Weight (Pounds): 218 General Appearance: no apparent distress EENT: other Cardiovascular: normal rate - Heart rate between 80-90 Respiratory/Chest: decreased breath sounds Abdomen: distended Objective no change Yunior Sexton MD Aug 28, 2019 13:34
--- NOTE | 2019-08-28 14:38 | Infectious Diseases Prog Note ---
Assessment/Plan Assessment/Plan ASSESSMENT: The patient is a 79-year-old male with: Leukocytosis; Sp Fever , sp Sepsis, Sp Pneumonia ( probable asp), Sp RX -08/13 Scx: MDR-ACB (Tygacil LANI: 4) - CXR: 1. Streaky opacities in the right lower lung may represent atelectasis versus scarring. Left basilar opacity may represent atelectasis. Component of pneumonia is not excluded. Pulmonary vasculature congestion. -08/01 ucx NTD - sp cx: nl anastacio Urinary tract infection, SP Rx 08/17 Sp code blue and intubation , extubated 08/27 07/31 Sp Code blue and intubation , sp extubation 08/12 , Hyperlipidemia. COPD. History of GERD. History of encephalopathy. History of CAD/SC. History of cardiomyopathy. Hypertension. PLAN: cont Colistin INH (MDR-ACB) # 13/-14 - 08/22/19 SP Merrem 10 - 08/14 SP IV Vanco # 4 -08/07 SP Zosyn and IV Vanco # 7/ , -08/01 SP Rocephin day # 10 - 07/31 sp sp Dox # 6 Monitor CBC. Monitor BMP. Monitor chest x-ray cont ICU Support Subjective Allergies: Coded Allergies: No Known Allergies (Unverified , 06/03/17) Subjective SP Fever extubated in ICU Objective Vital Signs Last 24 Hour Vital Signs Date Time Temp Pulse Resp B/P (MAP) Pulse Ox O2 Delivery O2 Flow Rate FiO2 08/28/19 14:18 Simple Mask 10.0 35 08/28/19 14:00 10.0 35 08/28/19 14:00 92 19 160/71 (100) 95 08/28/19 13:00 89 23 158/74 (102) 97 08/28/19 13:00 80 18 30 08/28/19 13:00 95 21 158/73 (101) 94 08/28/19 12:00 98.7 88 20 159/64 (95) 100 08/28/19 12:00 Mechanical Ventilator Mechanical Ventilator 08/28/19 12:00 91 08/28/19 11:10 72 18 100 Mechanical Ventilator 6.0 30 75 18 30 08/28/19 11:00 82 18 153/74 (100) 99 08/28/19 10:00 30 08/28/19 10:00 86 20 147/71 (96) 95 08/28/19 09:02 97 08/28/19 09:00 30 08/28/19 09:00 86 19 181/71 (107) 94 08/28/19 08:40 67 18 30 08/28/19 08:00 62 08/28/19 08:00 Mechanical Ventilator Mechanical Ventilator 08/28/19 08:00 30 08/28/19 08:00 98.6 63 16 132/56 (81) 97 08/28/19 07:29 64 16 30 08/28/19 07:00 64 16 134/53 (80) 98 08/28/19 06:33 65 16 08/28/19 06:00 65 16 128/57 (80) 97 08/28/19 05:05 65 16 30 08/28/19 05:00 65 16 118/56 (76) 98 08/28/19 04:00 Mechanical Ventilator Mechanical Ventilator 08/28/19 04:00 98.7 74 16 149/57 (87) 99 08/28/19 04:00 30 08/28/19 03:05 74 16 30 08/28/19 03:02 80 08/28/19 03:00 70 16 111/70 (84) 97 08/28/19 02:00 82 16 152/63 (92) 98 08/28/19 01:13 75 16 30 08/28/19 01:00 67 16 126/53 (77) 98 08/28/19 00:00 Mechanical Ventilator Mechanical Ventilator 08/28/19 00:00 75 08/28/19 00:00 97.8 75 21 135/55 (81) 97 08/28/19 00:00 30 08/27/19 23:05 67 16 30 08/27/19 23:00 65 16 120/54 (76) 96 08/27/19 22:00 65 16 107/50 (69) 95 08/27/19 21:45 69 16 99 Mechanical Ventilator 30 08/27/19 21:30 68 16 Mechanical Ventilator 30 30 08/27/19 21:00 69 16 123/51 (75) 96 08/27/19 20:00 Mechanical Ventilator Mechanical Ventilator 08/27/19 20:00 30 08/27/19 20:00 98.3 67 16 119/49 (72) 95 08/27/19 19:38 71 08/27/19 19:08 72 16 30 08/27/19 19:00 66 16 118/53 (74) 97 08/27/19 18:00 74 16 121/56 (77) 96 08/27/19 17:00 73 16 136/53 (80) 98 08/27/19 16:57 72 16 30 08/27/19 16:00 98.6 74 17 118/47 (70) 97 08/27/19 16:00 30 08/27/19 16:00 72 08/27/19 16:00 Mechanical Ventilator Mechanical Ventilator 08/27/19 15:00 81 18 134/53 (80) 97 Height (Feet): 5 Height (Inches): 6.00 Weight (Pounds): 218 HEENT: anicteric Respiratory/Chest: normal breath sounds Cardiovascular: regular rhythm Abdomen: no organomegaly Laboratory Tests Test 08/28/19 03:30 08/28/19 08:38 White Blood Count 8.6 K/UL (4.8-10.8) Red Blood Count 3.15 M/UL (4.70-6.10) L Hemoglobin 10.0 G/DL (14.2-18.0) L Hematocrit 29.4 % (42.0-52.0) L Mean Corpuscular Volume 93 FL (80-99) Mean Corpuscular Hemoglobin 31.7 PG (27.0-31.0) H Mean Corpuscular Hemoglobin Concent 34.0 G/DL (32.0-36.0) Red Cell Distribution Width 13.5 % (11.6-14.8) Platelet Count 240 K/UL (150-450) Mean Platelet Volume 5.6 FL (6.5-10.1) L Neutrophils (%) (Auto) 77.2 % (45.0-75.0) H Lymphocytes (%) (Auto) 11.1 % (20.0-45.0) L Monocytes (%) (Auto) 8.4 % (1.0-10.0) Eosinophils (%) (Auto) 2.8 % (0.0-3.0) Basophils (%) (Auto) 0.5 % (0.0-2.0) Prothrombin Time 10.9 SEC (9.30-11.50) Prothromb Time International Ratio 1.0 (0.9-1.1) Activated Partial Thromboplast Time 31 SEC (23-33) Sodium Level 143 MMOL/L (136-145) Potassium Level 3.8 MMOL/L (3.5-5.1) Chloride Level 108 MMOL/L (98-107) H Carbon Dioxide Level 32 MMOL/L (21-32) Anion Gap 3 mmol/L (5-15) L Blood Urea Nitrogen 39 mg/dL (7-18) H Creatinine 0.7 MG/DL (0.55-1.30) Estimat Glomerular Filtration Rate > 60 mL/min (>60) Glucose Level 132 MG/DL (74-106) H Uric Acid 2.9 MG/DL (2.6-7.2) Calcium Level 8.7 MG/DL (8.5-10.1) Phosphorus Level 3.3 MG/DL (2.5-4.9) Magnesium Level 2.0 MG/DL (1.8-2.4) Total Bilirubin 0.7 MG/DL (0.2-1.0) Aspartate Amino Transf (AST/SGOT) 15 U/L (15-37) Alanine Aminotransferase (ALT/SGPT) 20 U/L (12-78) Alkaline Phosphatase 89 U/L (46-116) C-Reactive Protein, Quantitative 8.7 mg/dL (0.00-0.90) H Pro-B-Type Natriuretic Peptide 2541 pg/mL (0-125) H Total Protein 4.7 G/DL (6.4-8.2) L Albumin 1.9 G/DL (3.4-5.0) L Globulin 2.8 g/dL Albumin/Globulin Ratio 0.7 (1.0-2.7) L Arterial Blood pH 7.454 (7.350-7.450) Arterial Blood Partial Pressure CO2 43.2 mmHg (35.0-45.0) Arterial Blood Partial Pressure O2 101.6 mmHg (75.0-100.0) H Arterial Blood HCO3 29.6 mmol/L (22.0-26.0) H Arterial Blood Oxygen Saturation 97.1 % (95-100) Arterial Blood Base Excess 5.2 (-2-2) H Joe Test Positive Current Medications Medications (Trade) Dose Ordered Sig/Amaris Route PRN Reason Start Time Stop Time Status Last Admin Dose Admin Acetaminophen (Tylenol) 650 mg Q4H PRN NG Mild Pain/Temp > 100.5 08/18/19 09:30 09/15/19 09:29 Amiodarone HCl (Cordarone) 200 mg DAILY NG 08/20/19 09:00 11/18/19 08:59 08/28/19 08:49 Atorvastatin Calcium (Lipitor) 40 mg BEDTIME NG 08/18/19 21:00 09/13/19 20:59 08/27/19 20:51 Chlorhexidine Gluconate (Kamila-Hex 2%) 1 applic DAILY@1999 TOPIC 08/18/19 20:00 09/17/19 19:59 08/27/19 19:40 Clopidogrel Bisulfate (Plavix) 75 mg DAILY NG 08/19/19 09:00 09/13/19 08:59 08/28/19 08:49 Colistimethate Sodium (Colistin *inhalation use only*) 75 mg Q12HR@ INH 08/18/19 10:00 08/30/19 23:59 08/28/19 11:23 Heparin Sodium (Porcine) (Heparin 5000 units/ml) 5,000 units EVERY 12 HOURS SUBQ 08/21/19 09:00 10/05/19 08:59 08/28/19 08:50 Hydralazine HCl (Apresoline) 10 mg Q4H PRN IV For High Blood Pressure 08/21/19 10:50 11/19/19 10:49 08/25/19 12:32 Lorazepam (Ativan 2mg/ml 1ml) 2 mg Q4H PRN IV For Anxiety 08/26/19 11:45 09/02/19 11:44 08/26/19 17:45 Morphine Sulfate (Morphine Sulfate) 2 mg Q4H PRN IVP For Pain 08/26/19 11:45 09/02/19 11:44 Olanzapine (ZyPREXA Zydis) 5 mg BEDTIME NG 08/21/19 21:00 10/05/19 20:59 08/27/19 20:51 Pantoprazole (Protonix) 40 mg EVERY 12 HOURS IVP 08/21/19 09:00 09/20/19 08:59 08/28/19 08:49 Angel Rudolph MD Aug 28, 2019 14:38
[2019-08-28] MEDS: Dyna-Hex 2% Top Sol 2oz TOPIC SCH (19:59)
[2019-08-28] MEDS: Atorvastatin 20mg tab NG SCH (20:40)
[2019-08-28] MEDS: ZyPREXA Zydis 5mg tab NG SCH (20:41)
[2019-08-28] MEDS ORDERED: NS 275ml ONE (20:42)
--- NOTE | 2019-08-28 22:30 | Progress Note ---
DATE: 08/28/2019 CARDIOLOGY PROGRESS NOTE SUBJECTIVE: The patient has been extubated. He is now on a face mask. No respiratory distress noted. PHYSICAL EXAMINATION: VITAL SIGNS: Blood pressure 131/56, heart rate 90, respirations 24. Monitored rhythm is sinus arrhythmia with bundle-branch block. HEENT: Thin secretions. LUNGS: Bilateral rhonchi. CARDIAC: Regular rhythm and rate. Normal S1. Paradoxically split S2. ABDOMEN: Soft. EXTREMITIES: Trace edema. LABORATORY DATA: White count 8.6, hemoglobin 10. ABG 7.45, 43, 101. Sodium 143, potassium 3.8, bicarb 32, BUN 39, creatinine 0.7, glucose 132. Pro-natriuretic peptide has decreased to 2500. IMPRESSION: 1. Status post respiratory failure, now extubated. 2. Acute on chronic respiratory acidosis, status post cardiopulmonary arrest. 3. Eoq-[id number] myocardial infarction. 4. Aspiration pneumonia. 5. Healthcare-acquired pneumonia. 6. Very high risk for re-intubation. 7. Acute on chronic diastolic congestive heart failure, improved. 8. Severe protein-calorie malnutrition. 9. Paroxysmal atrial fibrillation. PLAN: 1. Monitor acid-base parameters closely. 2. Monitor respiratory parameters closely. 3. Periodic diuresis based on clinical parameters. 4. Respiratory hygiene. 5. Protein supplement. 6. Aspiration precautions. 7. DVT prophylaxis. 8. Off amiodarone due to secondary bradycardia. 9. Observe for recurring atrial arrhythmias. 10. No anticoagulation recommended at this time. Saeed Sim M.D. DR: DARYA JOB#: [id number] CC:
[2019-08-29] VITALS (25 sets, daily range): BP systolic 116–177; BP diastolic 50–99
[2019-08-29 06:44] LABS: BASOPHILS % (AUTO) 0.4 % (0.0-2.0); EOSINOPHILS % (AUTO) 2.2 % (0.0-3.0); HEMATOCRIT 31.9 % (42.0-52.0); HEMOGLOBIN 10.9 G/DL (14.2-18.0); MEAN CORPUSCULAR VOLUME 93 FL (80-99); MONOCYTES % (AUTO) 8.1 % (1.0-10.0); NEUTROPHILS % (AUTO) 80.3 % (45.0-75.0); PLATELET COUNT 275 K/UL (150-450); RED BLOOD COUNT 3.42 M/UL (4.70-6.10); RED CELL DISTRIBUTION WIDTH 13.1 % (11.6-14.8); WHITE BLOOD COUNT 7.9 K/UL (4.8-10.8)
[2019-08-29 06:56] LABS: ANION GAP 4 mmol/L (5-15); BLOOD UREA NITROGEN 34 mg/dL (7-18); CALCIUM 8.3 MG/DL (8.5-10.1); CARBON DIOXIDE 33 MMOL/L (21-32); CHLORIDE 107 MMOL/L (98-107); CREATININE 0.7 MG/DL (0.55-1.30); POTASSIUM 3.8 MMOL/L (3.5-5.1); SODIUM 144 MMOL/L (136-145)
[2019-08-29] MEDS: Pantoprazole Inj IVP SCH ×2 (08:07→20:43)
[2019-08-29] MEDS: Amiodarone 200mg tab NG SCH (08:08)
[2019-08-29] MEDS: Heparin 5000 units/ml inj SUBQ SCH ×2 (08:09→20:44)
--- NOTE | 2019-08-29 08:15 | Progress Note ---
DATE: 08/28/2019 SUBJECTIVE: The computer is down and data is not available; however, a brief summary can be dictated. The patient was extubated today successfully. He is now several hours following the extubation. PHYSICAL EXAMINATION: VITAL SIGNS: His blood pressure is 98/64, his pulse is 104, respirations are 23, and temperature 98.7. HEENT: Eyes were normal. ENT, mucous membranes were moist and intact. NECK: Supple with no JVD without lymph nodes. LUNGS: Clear. HEART: Normal sounds with regular beats. ABDOMEN: Soft and nontender with normal bowel sounds. EXTREMITIES: Warm without cyanosis, clubbing, or edema. LABORATORY DATA: His hemoglobin is 10.4, hematocrit is 29.4 with MCV of 93, WBC of 8.6, and platelets are 240. His BUN and creatinine are 24 and 0.7 respectively. Sodium is 143, potassium 3.9, chloride 108, and CO2 is 20. IMPRESSION: The patient is status post extubation and tolerated extubation well. Repeat laboratory tests that include CBC, BMP, ABG, chest x-ray, will be taken in the a.m. Modesta Mulligan M.D. DR: SOFIA JOB#: [id number] CC:
[2019-08-29] MEDS: Colistin for inhalation INH SCH (10:02)
--- NOTE | 2019-08-29 11:49 | Pulmonolgy Critical Care Note ---
Critical Care - Asmt/Plan Problems: (1) Acute respiratory failure Assessment & Plan: extubated again, tolerating well. (2) Cardiac LV ejection fraction 40% (3) Cardiopulmonary arrest (4) Nosocomial pneumonia (5) Atrial fibrillation Assessment & Plan: controlled (6) Pulmonary edema Assessment & Plan: prn lasix. (7) COPD (chronic obstructive pulmonary disease) (8) CAD (coronary artery disease) (9) Dementia with behavioral disturbance Respiratory: monitor respiratory rate, adjust FIO2 Cardiac: continue to monitor HR/BP Renal: F/U I&O Infectious Disease: check cultures Endocrine: monitor blood sugar Hematologic: monitor H/H Prophylaxis: Protonix Disposition: keep in ICU Time Spent (Minutes): 40 Notes Reviewed: facilities management executive, cardio, ID Discussed with: nurses, consultants, classification case managercondominium association manager - Objective Last 24 Hour Vital Signs Date Time Temp Pulse Resp B/P (MAP) Pulse Ox O2 Delivery O2 Flow Rate FiO2 08/29/19 11:00 91 22 159/64 (95) 94 08/29/19 10:13 97 19 100 Cool Aerosol 10.0 35 96 19 98 08/29/19 10:00 97 22 166/71 (102) 97 08/29/19 09:00 98 21 174/68 (103) 97 08/29/19 08:00 10.0 35 08/29/19 08:00 98.9 99 25 165/66 (99) 96 08/29/19 08:00 86 08/29/19 08:00 Venturi Mask 10.0 Venturi Mask 10.0 Venturi Mask 10.0 08/29/19 07:31 96 Cool Aerosol 10.0 35 08/29/19 07:00 95 22 160/99 (119) 96 08/29/19 06:00 102 22 165/62 (96) 97 08/29/19 05:00 98 22 160/67 (98) 97 08/29/19 04:00 10.0 35 08/29/19 04:00 Simple Mask 10.0 Simple Mask 10.0 Simple Mask 10.0 08/29/19 04:00 86 08/29/19 04:00 87 22 161/67 (98) 97 08/29/19 03:50 172/65 08/29/19 03:45 85 22 172/65 (100) 97 08/29/19 03:00 92 22 159/68 (98) 98 08/29/19 02:00 88 22 148/70 (96) 96 08/29/19 01:00 84 24 140/65 (90) 96 08/29/19 00:42 95 Cool Aerosol 10.0 35 08/29/19 00:00 Simple Mask 10.0 Simple Mask 10.0 Simple Mask 10.0 08/29/19 00:00 10.0 35 08/29/19 00:00 98.9 100 25 146/67 (93) 95 08/29/19 00:00 95 08/28/19 23:00 97 24 149/67 (94) 96 08/28/19 22:00 95 22 139/66 (90) 97 08/28/19 21:44 101 18 100 Cool Aerosol 10.0 30 97 18 97 08/28/19 21:00 90 24 131/56 (81) 98 08/28/19 20:00 Simple Mask 10.0 Simple Mask 10.0 Simple Mask 10.0 08/28/19 20:00 10.0 35 08/28/19 20:00 98.9 91 23 139/59 (85) 98 08/28/19 20:00 94 08/28/19 19:36 99 Cool Aerosol 10.0 35 08/28/19 19:00 92 24 132/57 (82) 97 08/28/19 18:00 92 25 157/72 (100) 97 08/28/19 17:00 95 23 136/60 (85) 95 08/28/19 16:00 Simple Mask 10.0 Simple Mask 10.0 Simple Mask 10.0 08/28/19 16:00 10.0 35 08/28/19 16:00 98.6 96 20 147/61 (89) 95 08/28/19 16:00 94 08/28/19 15:00 98 23 140/62 (88) 95 08/28/19 14:18 Simple Mask 10.0 35 08/28/19 14:00 10.0 35 08/28/19 14:00 92 19 160/71 (100) 95 08/28/19 13:00 89 23 158/74 (102) 97 08/28/19 13:00 80 18 30 08/28/19 13:00 95 21 158/73 (101) 94 08/28/19 12:00 98.7 88 20 159/64 (95) 100 08/28/19 12:00 Mechanical Ventilator Mechanical Ventilator 08/28/19 12:00 91 Status: awake Condition: critical, improving HEENT: atraumatic Heart: HR/BP stable Abdomen: soft Extremities: no C/C/E Accucheck: 153 Critical Care - Subjective Interval Events: tolerating extubation FI02: 35 Vent Support Breath Rate: 16 Vent Support Mode: AC Vent Tidal Volume: 600 Sputum Amount: None PEEP: 5.0 PIP: 30 Tube Feeding Amount: 55 I&O: Intake and Output 08/28/19 08/29/19 19:00 07:00 Intake Total 595 ml 760 ml Output Total 480 ml 3825 ml Balance 115 ml -3065 ml Free Water 100 ml 100 ml Tube Feeding 495 ml 660 ml Output Urine Total 480 ml 3825 ml # Bowel Movements 2 2 ET-Tube: 8.0 ET Position: 24 Labs: Laboratory Tests Test 08/29/19 04:00 08/29/19 08:12 White Blood Count 7.9 K/UL (4.8-10.8) Red Blood Count 3.42 M/UL (4.70-6.10) L Hemoglobin 10.9 G/DL (14.2-18.0) L Hematocrit 31.9 % (42.0-52.0) L Mean Corpuscular Volume 93 FL (80-99) Mean Corpuscular Hemoglobin 31.8 PG (27.0-31.0) H Mean Corpuscular Hemoglobin Concent 34.1 G/DL (32.0-36.0) Red Cell Distribution Width 13.1 % (11.6-14.8) Platelet Count 275 K/UL (150-450) Mean Platelet Volume 5.0 FL (6.5-10.1) L Neutrophils (%) (Auto) 80.3 % (45.0-75.0) H Lymphocytes (%) (Auto) 9.0 % (20.0-45.0) L Monocytes (%) (Auto) 8.1 % (1.0-10.0) Eosinophils (%) (Auto) 2.2 % (0.0-3.0) Basophils (%) (Auto) 0.4 % (0.0-2.0) Sodium Level 144 MMOL/L (136-145) Potassium Level 3.8 MMOL/L (3.5-5.1) Chloride Level 107 MMOL/L (98-107) Carbon Dioxide Level 33 MMOL/L (21-32) H Anion Gap 4 mmol/L (5-15) L Blood Urea Nitrogen 34 mg/dL (7-18) H Creatinine 0.7 MG/DL (0.55-1.30) Estimat Glomerular Filtration Rate > 60 mL/min (>60) Glucose Level 127 MG/DL (74-106) H Calcium Level 8.3 MG/DL (8.5-10.1) L Arterial Blood pH 7.439 (7.350-7.450) Arterial Blood Partial Pressure CO2 49.7 mmHg (35.0-45.0) H Arterial Blood Partial Pressure O2 85.7 mmHg (75.0-100.0) Arterial Blood HCO3 32.7 mmol/L (22.0-26.0) H Arterial Blood Oxygen Saturation 95.7 % (95-100) Arterial Blood Base Excess 7.4 (-2-2) H Joe Test Positive Nicole Graves MD Aug 29, 2019 11:49
--- NOTE | 2019-08-29 12:10 | Nephrology Progress Note ---
Assessment/Plan Problem List: (1) AUREA (acute kidney injury) Assessment: Serum creatinine rising (2) Cardiopulmonary arrest (3) Respiratory failure (4) Cardiomyopathy (5) Obesity (BMI 30.0-34.9) (6) DMII (diabetes mellitus, type 2) Assessment Acute Renal Failure : AUREA Most likely due to cardiorespiratory arrest and episode of hypotension. Patient also has cardiomyopathy with Ej Fx of 40 % on admission Obese : BMI 34.4 ? DM Other Dx (1) Cardiopulmonary arrest (2) Nosocomial pneumonia (3) Acute respiratory failure (4) COPD (chronic obstructive pulmonary disease) (5) Atrial fibrillation (6) Dementia with behavioral disturbance (7) CAD (coronary artery disease) Plan Patient was extubated yesterday on oxygen mask today Today's labs reviewed D5 W IV fluids for hypernatremia as needed pressors are off now patient's condition somewhat more stable In ICU He is intubated ventilator, weaning is being tried His blood pressure is more stable Overall he is still doing poorly Adjust blood pressure medications Stress dose of steroids which we will start tapering today Previously Monitor renal parameters. Serum creatinine improved Monitor urine output. Urine output improved. Avoid nephrotoxics. Weaning as possible. Remains intubated at this time. Correct electrolyte imbalances. Change tube feeding to Glucerna. Subjective ROS Limited/Unobtainable: No Interval Events/Complaints Patient was extubated yesterday Constitutional: Reports: malaise Objective Objective Last 24 Hour Vital Signs Date Time Temp Pulse Resp B/P (MAP) Pulse Ox O2 Delivery O2 Flow Rate FiO2 08/29/19 11:00 91 22 159/64 (95) 94 08/29/19 10:13 97 19 100 Cool Aerosol 10.0 35 96 19 98 08/29/19 10:00 97 22 166/71 (102) 97 08/29/19 09:00 98 21 174/68 (103) 97 08/29/19 08:00 10.0 35 08/29/19 08:00 98.9 99 25 165/66 (99) 96 08/29/19 08:00 86 08/29/19 08:00 Venturi Mask 10.0 Venturi Mask 10.0 Venturi Mask 10.0 08/29/19 07:31 96 Cool Aerosol 10.0 35 08/29/19 07:00 95 22 160/99 (119) 96 08/29/19 06:00 102 22 165/62 (96) 97 08/29/19 05:00 98 22 160/67 (98) 97 08/29/19 04:00 10.0 35 08/29/19 04:00 Simple Mask 10.0 Simple Mask 10.0 Simple Mask 10.0 08/29/19 04:00 86 08/29/19 04:00 87 22 161/67 (98) 97 08/29/19 03:50 172/65 08/29/19 03:45 85 22 172/65 (100) 97 08/29/19 03:00 92 22 159/68 (98) 98 08/29/19 02:00 88 22 148/70 (96) 96 08/29/19 01:00 84 24 140/65 (90) 96 08/29/19 00:42 95 Cool Aerosol 10.0 35 08/29/19 00:00 Simple Mask 10.0 Simple Mask 10.0 Simple Mask 10.0 08/29/19 00:00 10.0 35 08/29/19 00:00 98.9 100 25 146/67 (93) 95 08/29/19 00:00 95 08/28/19 23:00 97 24 149/67 (94) 96 08/28/19 22:00 95 22 139/66 (90) 97 08/28/19 21:44 101 18 100 Cool Aerosol 10.0 30 97 18 97 08/28/19 21:00 90 24 131/56 (81) 98 08/28/19 20:00 Simple Mask 10.0 Simple Mask 10.0 Simple Mask 10.0 08/28/19 20:00 10.0 35 08/28/19 20:00 98.9 91 23 139/59 (85) 98 08/28/19 20:00 94 08/28/19 19:36 99 Cool Aerosol 10.0 35 08/28/19 19:00 92 24 132/57 (82) 97 08/28/19 18:00 92 25 157/72 (100) 97 08/28/19 17:00 95 23 136/60 (85) 95 08/28/19 16:00 Simple Mask 10.0 Simple Mask 10.0 Simple Mask 10.0 08/28/19 16:00 10.0 35 08/28/19 16:00 98.6 96 20 147/61 (89) 95 08/28/19 16:00 94 08/28/19 15:00 98 23 140/62 (88) 95 08/28/19 14:18 Simple Mask 10.0 35 08/28/19 14:00 10.0 35 08/28/19 14:00 92 19 160/71 (100) 95 08/28/19 13:00 89 23 158/74 (102) 97 08/28/19 13:00 80 18 30 08/28/19 13:00 95 21 158/73 (101) 94 Intake and Output 08/28/19 08/29/19 19:00 07:00 Intake Total 595 ml 760 ml Output Total 480 ml 3825 ml Balance 115 ml -3065 ml Free Water 100 ml 100 ml Tube Feeding 495 ml 660 ml Output Urine Total 480 ml 3825 ml # Bowel Movements 2 2 Laboratory Tests 08/29/19 04:00: White Blood Count 7.9, Red Blood Count 3.42L, Hemoglobin 10.9L, Hematocrit 31.9L , Mean Corpuscular Volume 93, Mean Corpuscular Hemoglobin 31.8H, Mean Corpuscular Hemoglobin Concent 34.1, Red Cell Distribution Width 13.1, Platelet Count 275, Mean Platelet Volume 5.0L, Neutrophils (%) (Auto) 80.3H, Lymphocytes (%) (Auto) 9.0L, Monocytes (%) (Auto) 8.1, Eosinophils (%) (Auto) 2.2, Basophils (%) (Auto) 0.4, Sodium Level 144, Potassium Level 3.8, Chloride Level 107, Carbon Dioxide Level 33H, Anion Gap 4L, Blood Urea Nitrogen 34H, Creatinine 0.7, Estimat Glomerular Filtration Rate > 60, Glucose Level 127H, Calcium Level 8.3L 08/29/19 08:12: Arterial Blood pH 7.439, Arterial Blood Partial Pressure CO2 49.7H, Arterial Blood Partial Pressure O2 85.7, Arterial Blood HCO3 32.7H, Arterial Blood Oxygen Saturation 95.7, Arterial Blood Base Excess 7.4H, Joe Test Positive Height (Feet): 5 Height (Inches): 6.00 Weight (Pounds): 219 General Appearance: no apparent distress Cardiovascular: tachycardia Respiratory/Chest: decreased breath sounds Abdomen: soft Objective no change Yunior Sexton MD Aug 29, 2019 12:10
--- NOTE | 2019-08-29 13:09 | Surgery Progress Note ---
Surgery Progress Note Subjective Additional Comments extubated blood gas noted stable monitor with face mask labs stable Objective Last 24 Hour Vital Signs Date Time Temp Pulse Resp B/P (MAP) Pulse Ox O2 Delivery O2 Flow Rate FiO2 08/29/19 12:48 96 Cool Aerosol 10.0 35 08/29/19 12:00 98.6 95 25 177/73 (107) 95 08/29/19 12:00 Venturi Mask 10.0 Venturi Mask 10.0 Venturi Mask 10.0 08/29/19 12:00 95 08/29/19 12:00 10.0 35 08/29/19 11:00 91 22 159/64 (95) 94 08/29/19 10:13 97 19 100 Cool Aerosol 10.0 35 96 19 98 08/29/19 10:00 97 22 166/71 (102) 97 08/29/19 09:00 98 21 174/68 (103) 97 08/29/19 08:00 10.0 35 08/29/19 08:00 98.9 99 25 165/66 (99) 96 08/29/19 08:00 86 08/29/19 08:00 Venturi Mask 10.0 Venturi Mask 10.0 Venturi Mask 10.0 08/29/19 07:31 96 Cool Aerosol 10.0 35 08/29/19 07:00 95 22 160/99 (119) 96 08/29/19 06:00 102 22 165/62 (96) 97 08/29/19 05:00 98 22 160/67 (98) 97 08/29/19 04:00 10.0 35 08/29/19 04:00 Simple Mask 10.0 Simple Mask 10.0 Simple Mask 10.0 08/29/19 04:00 86 08/29/19 04:00 87 22 161/67 (98) 97 08/29/19 03:50 172/65 08/29/19 03:45 85 22 172/65 (100) 97 08/29/19 03:00 92 22 159/68 (98) 98 08/29/19 02:00 88 22 148/70 (96) 96 08/29/19 01:00 84 24 140/65 (90) 96 08/29/19 00:42 95 Cool Aerosol 10.0 35 08/29/19 00:00 Simple Mask 10.0 Simple Mask 10.0 Simple Mask 10.0 08/29/19 00:00 10.0 35 08/29/19 00:00 98.9 100 25 146/67 (93) 95 08/29/19 00:00 95 08/28/19 23:00 97 24 149/67 (94) 96 08/28/19 22:00 95 22 139/66 (90) 97 08/28/19 21:44 101 18 100 Cool Aerosol 10.0 30 97 18 97 08/28/19 21:00 90 24 131/56 (81) 98 08/28/19 20:00 Simple Mask 10.0 Simple Mask 10.0 Simple Mask 10.0 08/28/19 20:00 10.0 35 08/28/19 20:00 98.9 91 23 139/59 (85) 98 08/28/19 20:00 94 08/28/19 19:36 99 Cool Aerosol 10.0 35 08/28/19 19:00 92 24 132/57 (82) 97 08/28/19 18:00 92 25 157/72 (100) 97 08/28/19 17:00 95 23 136/60 (85) 95 08/28/19 16:00 Simple Mask 10.0 Simple Mask 10.0 Simple Mask 10.0 08/28/19 16:00 10.0 35 08/28/19 16:00 98.6 96 20 147/61 (89) 95 08/28/19 16:00 94 08/28/19 15:00 98 23 140/62 (88) 95 08/28/19 14:18 Simple Mask 10.0 35 08/28/19 14:00 10.0 35 08/28/19 14:00 92 19 160/71 (100) 95 I&O Intake and Output 08/28/19 08/29/19 19:00 07:00 Intake Total 595 ml 760 ml Output Total 480 ml 3825 ml Balance 115 ml -3065 ml Free Water 100 ml 100 ml Tube Feeding 495 ml 660 ml Output Urine Total 480 ml 3825 ml # Bowel Movements 2 2 Dressing: other Wound: other Drains: other Cardiovascular: RSR Respiratory: decreased breath sounds Abdomen: soft, non-tender, present bowel sounds Extremities: no cyanosis Laboratory Tests Test 08/29/19 04:00 08/29/19 08:12 White Blood Count 7.9 K/UL (4.8-10.8) Red Blood Count 3.42 M/UL (4.70-6.10) L Hemoglobin 10.9 G/DL (14.2-18.0) L Hematocrit 31.9 % (42.0-52.0) L Mean Corpuscular Volume 93 FL (80-99) Mean Corpuscular Hemoglobin 31.8 PG (27.0-31.0) H Mean Corpuscular Hemoglobin Concent 34.1 G/DL (32.0-36.0) Red Cell Distribution Width 13.1 % (11.6-14.8) Platelet Count 275 K/UL (150-450) Mean Platelet Volume 5.0 FL (6.5-10.1) L Neutrophils (%) (Auto) 80.3 % (45.0-75.0) H Lymphocytes (%) (Auto) 9.0 % (20.0-45.0) L Monocytes (%) (Auto) 8.1 % (1.0-10.0) Eosinophils (%) (Auto) 2.2 % (0.0-3.0) Basophils (%) (Auto) 0.4 % (0.0-2.0) Sodium Level 144 MMOL/L (136-145) Potassium Level 3.8 MMOL/L (3.5-5.1) Chloride Level 107 MMOL/L (98-107) Carbon Dioxide Level 33 MMOL/L (21-32) H Anion Gap 4 mmol/L (5-15) L Blood Urea Nitrogen 34 mg/dL (7-18) H Creatinine 0.7 MG/DL (0.55-1.30) Estimat Glomerular Filtration Rate > 60 mL/min (>60) Glucose Level 127 MG/DL (74-106) H Calcium Level 8.3 MG/DL (8.5-10.1) L Arterial Blood pH 7.439 (7.350-7.450) Arterial Blood Partial Pressure CO2 49.7 mmHg (35.0-45.0) H Arterial Blood Partial Pressure O2 85.7 mmHg (75.0-100.0) Arterial Blood HCO3 32.7 mmol/L (22.0-26.0) H Arterial Blood Oxygen Saturation 95.7 % (95-100) Arterial Blood Base Excess 7.4 (-2-2) H Joe Test Positive Plan Problems: (1) Nosocomial pneumonia (2) AUREA (acute kidney injury) (3) Cardiomyopathy (4) Obesity (BMI 30.0-34.9) (5) DMII (diabetes mellitus, type 2) (6) Cardiac LV ejection fraction 40% (7) Pulmonary edema (8) Cardiopulmonary arrest Assessment & Plan: Cardiopulmonary arrest septic requiring urgent emergency line placement for pressors and fluids and meds Please see procedure report Full examination performed no other surgical issues found at this time etiology unknown likely surgical in nature Antibiotics fluids Pressors Vent weaning trials right groin site okay. no hematoma. no bleeding left arm picc okay NG tube is present in good position. A partial left lateral decubitus view of the abdomen performed as well as a supine view. The left lateral decubitus view is not adequate as the area of interest which would be the nondependent right side of the abdomen, which is the area of interest was not imaged and is beyond the field-of -view of the x-ray. Bowel gas pattern appears nonobstructive on the basis of the partial images obtained. off pressors labs reviewed cont tube feeds Unable to wean from ventilator. Labs noted ABG noted imaging reviewed cont weaning. if possible extubate otherwise will consider trach extubated improving monitor in ICU for now (9) Respiratory failure (10) History of hypertension (11) COPD (chronic obstructive pulmonary disease) (12) CAD (coronary artery disease) (13) Atrial fibrillation (14) Dementia with behavioral disturbance (15) Upper respiratory infection (16) Acute respiratory failure (17) Dyspnea (18) UTI (urinary tract infection) Prosper Hummel Aug 29, 2019 13:09
--- NOTE | 2019-08-29 13:52 | Infectious Diseases Prog Note ---
Assessment/Plan Assessment/Plan ASSESSMENT: The patient is a 79-year-old male with: Leukocytosis; Sp Fever , sp Sepsis, Sp Pneumonia ( probable asp), Sp RX -08/13 Scx: MDR-ACB (Tygacil LANI: 4) - CXR: 1. Streaky opacities in the right lower lung may represent atelectasis versus scarring. Left basilar opacity may represent atelectasis. Component of pneumonia is not excluded. Pulmonary vasculature congestion. -08/01 ucx NTD - sp cx: nl anastacio Urinary tract infection, SP Rx 08/17 Sp code blue and intubation , extubated 08/27 07/31 Sp Code blue and intubation , sp extubation 08/12 , Hyperlipidemia. COPD. History of GERD. History of encephalopathy. History of CAD/SC. History of cardiomyopathy. Hypertension. PLAN: DC Colistin INH (MDR-ACB) # 14/-14 - 08/22/19 SP Merrem 10 - 08/14 SP IV Vanco # 4 -08/07 SP Zosyn and IV Vanco # 7/7 , -08/01 SP Rocephin day # 10 - 07/31 sp sp Dox # 6 Monitor CBC. Monitor BMP. Monitor chest x-ray cont ICU Support Subjective Allergies: Coded Allergies: No Known Allergies (Unverified , 06/03/17) Subjective no acute event in ICU Objective Vital Signs Last 24 Hour Vital Signs Date Time Temp Pulse Resp B/P (MAP) Pulse Ox O2 Delivery O2 Flow Rate FiO2 08/29/19 13:12 170/73 08/29/19 13:00 97 22 170/73 (105) 96 08/29/19 12:48 96 Cool Aerosol 10.0 35 08/29/19 12:00 98.6 95 25 177/73 (107) 95 08/29/19 12:00 Venturi Mask 10.0 Venturi Mask 10.0 Venturi Mask 10.0 08/29/19 12:00 95 08/29/19 12:00 10.0 35 08/29/19 11:00 91 22 159/64 (95) 94 08/29/19 10:13 97 19 100 Cool Aerosol 10.0 35 96 19 98 08/29/19 10:00 97 22 166/71 (102) 97 08/29/19 09:00 98 21 174/68 (103) 97 08/29/19 08:00 10.0 35 08/29/19 08:00 98.9 99 25 165/66 (99) 96 08/29/19 08:00 86 08/29/19 08:00 Venturi Mask 10.0 Venturi Mask 10.0 Venturi Mask 10.0 08/29/19 07:31 96 Cool Aerosol 10.0 35 08/29/19 07:00 95 22 160/99 (119) 96 08/29/19 06:00 102 22 165/62 (96) 97 08/29/19 05:00 98 22 160/67 (98) 97 08/29/19 04:00 10.0 35 08/29/19 04:00 Simple Mask 10.0 Simple Mask 10.0 Simple Mask 10.0 08/29/19 04:00 86 08/29/19 04:00 87 22 161/67 (98) 97 08/29/19 03:50 172/65 08/29/19 03:45 85 22 172/65 (100) 97 08/29/19 03:00 92 22 159/68 (98) 98 08/29/19 02:00 88 22 148/70 (96) 96 08/29/19 01:00 84 24 140/65 (90) 96 08/29/19 00:42 95 Cool Aerosol 10.0 35 08/29/19 00:00 Simple Mask 10.0 Simple Mask 10.0 Simple Mask 10.0 08/29/19 00:00 10.0 35 08/29/19 00:00 98.9 100 25 146/67 (93) 95 08/29/19 00:00 95 08/28/19 23:00 97 24 149/67 (94) 96 08/28/19 22:00 95 22 139/66 (90) 97 08/28/19 21:44 101 18 100 Cool Aerosol 10.0 30 97 18 97 08/28/19 21:00 90 24 131/56 (81) 98 08/28/19 20:00 Simple Mask 10.0 Simple Mask 10.0 Simple Mask 10.0 08/28/19 20:00 10.0 35 08/28/19 20:00 98.9 91 23 139/59 (85) 98 08/28/19 20:00 94 08/28/19 19:36 99 Cool Aerosol 10.0 35 08/28/19 19:00 92 24 132/57 (82) 97 08/28/19 18:00 92 25 157/72 (100) 97 08/28/19 17:00 95 23 136/60 (85) 95 08/28/19 16:00 Simple Mask 10.0 Simple Mask 10.0 Simple Mask 10.0 08/28/19 16:00 10.0 35 08/28/19 16:00 98.6 96 20 147/61 (89) 95 08/28/19 16:00 94 08/28/19 15:00 98 23 140/62 (88) 95 08/28/19 14:18 Simple Mask 10.0 35 08/28/19 14:00 10.0 35 08/28/19 14:00 92 19 160/71 (100) 95 Height (Feet): 5 Height (Inches): 6.00 Weight (Pounds): 219 HEENT: anicteric Respiratory/Chest: no accessory muscle use Cardiovascular: regularly irregular Abdomen: non distended Laboratory Tests Test 08/29/19 04:00 08/29/19 08:12 White Blood Count 7.9 K/UL (4.8-10.8) Red Blood Count 3.42 M/UL (4.70-6.10) L Hemoglobin 10.9 G/DL (14.2-18.0) L Hematocrit 31.9 % (42.0-52.0) L Mean Corpuscular Volume 93 FL (80-99) Mean Corpuscular Hemoglobin 31.8 PG (27.0-31.0) H Mean Corpuscular Hemoglobin Concent 34.1 G/DL (32.0-36.0) Red Cell Distribution Width 13.1 % (11.6-14.8) Platelet Count 275 K/UL (150-450) Mean Platelet Volume 5.0 FL (6.5-10.1) L Neutrophils (%) (Auto) 80.3 % (45.0-75.0) H Lymphocytes (%) (Auto) 9.0 % (20.0-45.0) L Monocytes (%) (Auto) 8.1 % (1.0-10.0) Eosinophils (%) (Auto) 2.2 % (0.0-3.0) Basophils (%) (Auto) 0.4 % (0.0-2.0) Sodium Level 144 MMOL/L (136-145) Potassium Level 3.8 MMOL/L (3.5-5.1) Chloride Level 107 MMOL/L (98-107) Carbon Dioxide Level 33 MMOL/L (21-32) H Anion Gap 4 mmol/L (5-15) L Blood Urea Nitrogen 34 mg/dL (7-18) H Creatinine 0.7 MG/DL (0.55-1.30) Estimat Glomerular Filtration Rate > 60 mL/min (>60) Glucose Level 127 MG/DL (74-106) H Calcium Level 8.3 MG/DL (8.5-10.1) L Arterial Blood pH 7.439 (7.350-7.450) Arterial Blood Partial Pressure CO2 49.7 mmHg (35.0-45.0) H Arterial Blood Partial Pressure O2 85.7 mmHg (75.0-100.0) Arterial Blood HCO3 32.7 mmol/L (22.0-26.0) H Arterial Blood Oxygen Saturation 95.7 % (95-100) Arterial Blood Base Excess 7.4 (-2-2) H Joe Test Positive Current Medications Medications (Trade) Dose Ordered Sig/Amaris Route PRN Reason Start Time Stop Time Status Last Admin Dose Admin Acetaminophen (Tylenol) 650 mg Q4H PRN NG Mild Pain/Temp > 100.5 08/18/19 09:30 09/15/19 09:29 Amiodarone HCl (Cordarone) 200 mg DAILY NG 08/20/19 09:00 11/18/19 08:59 08/29/19 08:08 Atorvastatin Calcium (Lipitor) 40 mg BEDTIME NG 08/18/19 21:00 09/13/19 20:59 08/28/19 20:40 Chlorhexidine Gluconate (Kamila-Hex 2%) 1 applic DAILY@1999 TOPIC 08/18/19 20:00 09/17/19 19:59 08/28/19 19:59 Clopidogrel Bisulfate (Plavix) 75 mg DAILY NG 08/19/19 09:00 09/13/19 08:59 08/29/19 08:08 Colistimethate Sodium (Colistin *inhalation use only*) 75 mg Q12HR@,22 INH 08/18/19 10:00 08/29/19 23:59 08/29/19 10:02 Heparin Sodium (Porcine) (Heparin 5000 units/ml) 5,000 units EVERY 12 HOURS SUBQ 08/21/19 09:00 10/05/19 08:59 08/29/19 08:09 Hydralazine HCl (Apresoline) 10 mg Q4H PRN IV For High Blood Pressure 08/21/19 10:50 11/19/19 10:49 08/29/19 13:12 Lorazepam (Ativan 2mg/ml 1ml) 2 mg Q4H PRN IV For Anxiety 08/26/19 11:45 09/02/19 11:44 08/26/19 17:45 Morphine Sulfate (Morphine Sulfate) 2 mg Q4H PRN IVP For Pain 08/26/19 11:45 09/02/19 11:44 Olanzapine (ZyPREXA Zydis) 5 mg BEDTIME NG 08/21/19 21:00 10/05/19 20:59 08/28/19 20:41 Pantoprazole (Protonix) 40 mg EVERY 12 HOURS IVP 08/21/19 09:00 09/20/19 08:59 08/29/19 08:07 Angel Rudolph MD Aug 29, 2019 13:52
--- NOTE | 2019-08-29 15:14 | Diagnostic Imaging Report ---
Indication: Shortness of breath Technique: XRAY Chest 1v Comparison: 08/28/2019 Findings: Endotracheal tube has been removed. Enteric tube remains in place. Left arm PICC line also remains in place. Heart size and mediastinal contours are stable. There is worsening aeration with increasing hazy opacities of the bilateral lung bases. No evidence of pneumothorax. Pulmonary vascularity is also more hazy and indistinct. Osseous structures are stable. Impression: * Interval removal of endotracheal tube. NG tube and left arm PICC line remain in place. * Apparent worsening of aeration with increasing hazy opacities in the bilateral lower lungs which may in part be related to artifact from patient positioning however layering bilateral pleural effusions and bilateral airspace disease not excluded. Follow-up recommended.
[2019-08-29] MEDS: Acetaminophen 650mg/20.3ml NG PRN (17:35)
[2019-08-29] MEDS: Dyna-Hex 2% Top Sol 2oz TOPIC SCH (20:00)
[2019-08-29] MEDS: ZyPREXA Zydis 5mg tab NG SCH (20:43)
[2019-08-29] MEDS: Atorvastatin 20mg tab NG SCH (20:43)
--- NOTE | 2019-08-29 22:00 | Progress Note ---
DATE: 08/29/2019 CARDIOLOGY PROGRESS NOTE SUBJECTIVE: The patient was extubated yesterday, remains with stable respiratory parameters. No distress. PHYSICAL EXAMINATION: VITAL SIGNS: Blood pressure 147/66, pulse 104, respirations 21. Afebrile. Oxygen saturation 95% on a Venturi mask. LUNGS: Bilateral breath sounds. CARDIAC: Regular rhythm and rate. Normal S1, S2. ABDOMEN: Soft. EXTREMITIES: No edema. LABORATORY AND DIAGNOSTIC DATA: Chest x-ray reveals worsening aeration, increasing bilateral opacities in the lower lobes, layering pleural effusion. White count 7.9, hemoglobin 10.9. Sodium 144, potassium 3.8, bicarb 33, BUN 34, and creatinine 0.7. ABG, 7.43, 49, and 85. IMPRESSION: 1. Respiratory failure, status post cardiopulmonary arrest. 2. Status post respiratory arrest. 3. Paroxysmal atrial fibrillation. 4. Hypertensive heart disease. 5. Acute on chronic systolic and diastolic congestive heart failure. PLAN: 1. Additional diuresis. 2. Titrate anti-failure regimen. 3. Restart amiodarone. 4. Monitor acid-base parameters closely. 5. Consider thoracentesis. Saeed Sim M.D. DR: RAUL JOB#: [id number] CC:
[2019-08-30] VITALS (24 sets, daily range): BP systolic 137–170; BP diastolic 56–82
[2019-08-30 04:24] LABS: BASOPHILS % (AUTO) 0.8 % (0.0-2.0); EOSINOPHILS % (AUTO) 1.1 % (0.0-3.0); HEMATOCRIT 36.8 % (42.0-52.0); HEMOGLOBIN 12.4 G/DL (14.2-18.0); LYMPHOCYTES % (AUTO) 9.5 % (20.0-45.0); MEAN CORPUSCULAR VOLUME 92 FL (80-99); MONOCYTES % (AUTO) 7.6 % (1.0-10.0); NEUTROPHILS % (AUTO) 81.2 % (45.0-75.0); PLATELET COUNT 330 K/UL (150-450); RED BLOOD COUNT 3.98 M/UL (4.70-6.10); RED CELL DISTRIBUTION WIDTH 13.1 % (11.6-14.8); WHITE BLOOD COUNT 8.8 K/UL (4.8-10.8)
[2019-08-30 04:46] LABS: ALANINE AMINOTRANSFERASE 24 U/L (12-78); ALBUMIN 2.2 G/DL (3.4-5.0); ALBUMIN/GLOBULIN RATIO 0.6 (1.0-2.7); ALKALINE PHOSPHATASE 111 U/L (46-116); ANION GAP 5 mmol/L (5-15); ASPARTATE AMINO TRANSFERASE 22 U/L (15-37); BILIRUBIN,TOTAL 0.8 MG/DL (0.2-1.0); BLOOD UREA NITROGEN 24 mg/dL (7-18); CALCIUM 8.4 MG/DL (8.5-10.1); CARBON DIOXIDE 33 MMOL/L (21-32); CHLORIDE 105 MMOL/L (98-107); CREATININE 0.6 MG/DL (0.55-1.30); PHOSPHORUS 3.2 MG/DL (2.5-4.9); POTASSIUM 3.6 MMOL/L (3.5-5.1); SODIUM 143 MMOL/L (136-145)
[2019-08-30] MEDS: Acetaminophen 650mg/20.3ml NG PRN (04:52)
--- NOTE | 2019-08-30 08:27 | Pulmonolgy Critical Care Note ---
Critical Care - Asmt/Plan Problems: (1) Acute respiratory failure Assessment & Plan: extubated again, tolerating well. (2) Cardiac LV ejection fraction 40% (3) Cardiopulmonary arrest (4) Nosocomial pneumonia (5) Atrial fibrillation Assessment & Plan: controlled (6) Pulmonary edema Assessment & Plan: prn lasix. (7) COPD (chronic obstructive pulmonary disease) (8) CAD (coronary artery disease) (9) Dementia with behavioral disturbance Respiratory: monitor respiratory rate, adjust FIO2, CXR Cardiac: continue to monitor HR/BP Renal: F/U I&O, keep IV fluid Infectious Disease: check cultures Gastrointestinal: continue feedings/current rate Endocrine: monitor blood sugar Hematologic: monitor H/H, transfuse if hgb<8.5 Neurologic: PRN Morphine, keep patient comfortable Affect: PRN ativan Prophylaxis: Heparin Time Spent (Minutes): 40 Notes Reviewed: cardio, renal Discussed with: nurses, consultants, case assemblermanager of administration - Objective Last 24 Hour Vital Signs Date Time Temp Pulse Resp B/P (MAP) Pulse Ox O2 Delivery O2 Flow Rate FiO2 08/30/19 08:00 98.8 95 23 150/65 (93) 94 08/30/19 07:30 96 Cool Aerosol 10.0 35 08/30/19 07:00 101 20 164/71 (102) 96 08/30/19 06:00 108 20 154/63 (93) 95 08/30/19 05:00 108 20 159/73 (101) 96 08/30/19 04:00 Venturi Mask 10.0 Venturi Mask 10.0 Venturi Mask 10.0 08/30/19 04:00 10.0 35 08/30/19 04:00 99 08/30/19 04:00 98.0 107 20 162/82 (108) 96 08/30/19 03:00 104 20 164/74 (104) 95 08/30/19 02:20 161/64 08/30/19 02:00 99 22 161/64 (96) 95 08/30/19 01:08 94 Cool Aerosol 10.0 35 08/30/19 01:00 96 20 157/66 (96) 95 08/30/19 00:00 10.0 35 08/30/19 00:00 Venturi Mask 10.0 Venturi Mask 10.0 Venturi Mask 10.0 08/30/19 00:00 94 08/30/19 00:00 98.6 94 22 149/61 (90) 96 08/29/19 23:00 93 22 158/62 (94) 95 08/29/19 22:00 91 20 136/61 (86) 97 08/29/19 21:00 99 19 143/64 (90) 95 08/29/19 20:00 10.0 35 08/29/19 20:00 97 08/29/19 20:00 98.9 98 25 159/61 (93) 95 08/29/19 20:00 Venturi Mask 10.0 Venturi Mask 10.0 Venturi Mask 10.0 08/29/19 19:14 94 Cool Aerosol 10.0 35 08/29/19 19:00 93 21 143/58 (86) 94 08/29/19 18:00 104 21 147/66 (93) 95 08/29/19 17:00 108 20 171/68 (102) 95 08/29/19 16:00 Venturi Mask 10.0 Venturi Mask 10.0 Venturi Mask 10.0 08/29/19 16:00 10.0 35 08/29/19 16:00 98.9 110 22 125/53 (77) 95 08/29/19 16:00 106 08/29/19 15:00 106 25 116/50 (72) 94 08/29/19 14:00 112 25 151/65 (93) 94 08/29/19 13:12 170/73 08/29/19 13:00 97 22 170/73 (105) 96 08/29/19 12:48 96 Cool Aerosol 10.0 35 08/29/19 12:00 98.6 95 25 177/73 (107) 95 08/29/19 12:00 Venturi Mask 10.0 Venturi Mask 10.0 Venturi Mask 10.0 08/29/19 12:00 95 08/29/19 12:00 10.0 35 08/29/19 11:00 91 22 159/64 (95) 94 08/29/19 10:13 97 19 100 Cool Aerosol 10.0 35 96 19 98 08/29/19 10:00 97 22 166/71 (102) 97 08/29/19 09:00 98 21 174/68 (103) 97 Status: sedated Condition: critical HEENT: atraumatic, normocephalic Lungs: clear Heart: HR/BP stable Abdomen: soft, non-tender, feeding tube Extremities: no C/C/E Accucheck: 153 Critical Care - Subjective ROS Limited/Unobtainable: No Condition: critical EKG Rhythm: Sinus Rhythm FI02: 35 Vent Support Breath Rate: 16 Vent Support Mode: AC Vent Tidal Volume: 600 Sputum Amount: Moderate PEEP: 5.0 PIP: 30 Tube Feeding Amount: 55 I&O: Intake and Output 08/29/19 08/30/19 19:00 07:00 Intake Total 760 ml 710 ml Output Total 2890 ml 1475 ml Balance -2130 ml -765 ml Free Water 100 ml 50 ml Tube Feeding 660 ml 660 ml Output Urine Total 2890 ml 1475 ml # Bowel Movements 1 ET-Tube: 8.0 ET Position: 24 Labs: Laboratory Tests Test 08/30/19 02:50 White Blood Count 8.8 K/UL (4.8-10.8) Red Blood Count 3.98 M/UL (4.70-6.10) L Hemoglobin 12.4 G/DL (14.2-18.0) L Hematocrit 36.8 % (42.0-52.0) L Mean Corpuscular Volume 92 FL (80-99) Mean Corpuscular Hemoglobin 31.1 PG (27.0-31.0) H Mean Corpuscular Hemoglobin Concent 33.6 G/DL (32.0-36.0) Red Cell Distribution Width 13.1 % (11.6-14.8) Platelet Count 330 K/UL (150-450) Mean Platelet Volume 4.9 FL (6.5-10.1) L Neutrophils (%) (Auto) 81.2 % (45.0-75.0) H Lymphocytes (%) (Auto) 9.5 % (20.0-45.0) L Monocytes (%) (Auto) 7.6 % (1.0-10.0) Eosinophils (%) (Auto) 1.1 % (0.0-3.0) Basophils (%) (Auto) 0.8 % (0.0-2.0) Sodium Level 143 MMOL/L (136-145) Potassium Level 3.6 MMOL/L (3.5-5.1) Chloride Level 105 MMOL/L (98-107) Carbon Dioxide Level 33 MMOL/L (21-32) H Anion Gap 5 mmol/L (5-15) Blood Urea Nitrogen 24 mg/dL (7-18) H Creatinine 0.6 MG/DL (0.55-1.30) Estimat Glomerular Filtration Rate > 60 mL/min (>60) Glucose Level 138 MG/DL (74-106) H Calcium Level 8.4 MG/DL (8.5-10.1) L Phosphorus Level 3.2 MG/DL (2.5-4.9) Magnesium Level 1.8 MG/DL (1.8-2.4) Total Bilirubin 0.8 MG/DL (0.2-1.0) Aspartate Amino Transf (AST/SGOT) 22 U/L (15-37) Alanine Aminotransferase (ALT/SGPT) 24 U/L (12-78) Alkaline Phosphatase 111 U/L (46-116) C-Reactive Protein, Quantitative 8.4 mg/dL (0.00-0.90) H Pro-B-Type Natriuretic Peptide 39321 pg/mL (0-125) H Total Protein 5.7 G/DL (6.4-8.2) L Albumin 2.2 G/DL (3.4-5.0) L Globulin 3.5 g/dL Albumin/Globulin Ratio 0.6 (1.0-2.7) L Nicole Graves MD Aug 30, 2019 08:27
[2019-08-30] MEDS: Amiodarone 200mg tab NG SCH (09:05)
[2019-08-30] MEDS: Pantoprazole Inj IVP SCH ×2 (09:05→20:53)
[2019-08-30] MEDS: Heparin 5000 units/ml inj SUBQ SCH ×2 (09:07→20:55)
--- NOTE | 2019-08-30 11:43 | Nephrology Progress Note ---
Assessment/Plan Problem List: (1) AUREA (acute kidney injury) Assessment: Serum creatinine rising (2) Cardiopulmonary arrest (3) Respiratory failure (4) Cardiomyopathy (5) Obesity (BMI 30.0-34.9) (6) DMII (diabetes mellitus, type 2) Assessment Acute Renal Failure : AUREA Most likely due to cardiorespiratory arrest and episode of hypotension. Patient also has cardiomyopathy with Ej Fx of 40 % on admission Obese : BMI 34.4 ? DM Other Dx (1) Cardiopulmonary arrest (2) Nosocomial pneumonia (3) Acute respiratory failure (4) COPD (chronic obstructive pulmonary disease) (5) Atrial fibrillation (6) Dementia with behavioral disturbance (7) CAD (coronary artery disease) Plan Patient was extubated August 27 remains on oxygen mask Today's labs reviewed D5 W IV fluids for hypernatremia as needed pressors are off now patient's condition somewhat more stable In ICU He is intubated ventilator, weaning is being tried His blood pressure is more stable Overall he is still doing poorly Adjust blood pressure medications Stress dose of steroids which we will start tapering today Previously Monitor renal parameters. Serum creatinine improved Monitor urine output. Urine output improved. Avoid nephrotoxics. Weaning as possible. Remains intubated at this time. Correct electrolyte imbalances. Change tube feeding to Glucerna. Subjective ROS Limited/Unobtainable: No Constitutional: Reports: malaise, weakness Objective Objective Last 24 Hour Vital Signs Date Time Temp Pulse Resp B/P (MAP) Pulse Ox O2 Delivery O2 Flow Rate FiO2 08/30/19 10:00 95 22 160/69 (99) 96 08/30/19 09:00 96 22 153/63 (93) 96 08/30/19 08:00 Venturi Mask 10.0 Venturi Mask 10.0 Venturi Mask 10.0 08/30/19 08:00 98.8 95 23 150/65 (93) 94 08/30/19 08:00 10.0 35 08/30/19 08:00 96 08/30/19 07:30 96 Cool Aerosol 10.0 35 08/30/19 07:00 101 20 164/71 (102) 96 08/30/19 06:00 108 20 154/63 (93) 95 08/30/19 05:00 108 20 159/73 (101) 96 08/30/19 04:00 Venturi Mask 10.0 Venturi Mask 10.0 Venturi Mask 10.0 08/30/19 04:00 10.0 35 08/30/19 04:00 99 08/30/19 04:00 98.0 107 20 162/82 (108) 96 08/30/19 03:00 104 20 164/74 (104) 95 08/30/19 02:20 161/64 08/30/19 02:00 99 22 161/64 (96) 95 08/30/19 01:08 94 Cool Aerosol 10.0 35 08/30/19 01:00 96 20 157/66 (96) 95 08/30/19 00:00 10.0 35 08/30/19 00:00 Venturi Mask 10.0 Venturi Mask 10.0 Venturi Mask 10.0 08/30/19 00:00 94 08/30/19 00:00 98.6 94 22 149/61 (90) 96 08/29/19 23:00 93 22 158/62 (94) 95 08/29/19 22:00 91 20 136/61 (86) 97 08/29/19 21:00 99 19 143/64 (90) 95 08/29/19 20:00 10.0 35 08/29/19 20:00 97 08/29/19 20:00 98.9 98 25 159/61 (93) 95 08/29/19 20:00 Venturi Mask 10.0 Venturi Mask 10.0 Venturi Mask 10.0 08/29/19 19:14 94 Cool Aerosol 10.0 35 08/29/19 19:00 93 21 143/58 (86) 94 08/29/19 18:00 104 21 147/66 (93) 95 08/29/19 17:00 108 20 171/68 (102) 95 08/29/19 16:00 Venturi Mask 10.0 Venturi Mask 10.0 Venturi Mask 10.0 08/29/19 16:00 10.0 35 08/29/19 16:00 98.9 110 22 125/53 (77) 95 08/29/19 16:00 106 08/29/19 15:00 106 25 116/50 (72) 94 08/29/19 14:00 112 25 151/65 (93) 94 08/29/19 13:12 170/73 08/29/19 13:00 97 22 170/73 (105) 96 08/29/19 12:48 96 Cool Aerosol 10.0 35 08/29/19 12:00 98.6 95 25 177/73 (107) 95 08/29/19 12:00 Venturi Mask 10.0 Venturi Mask 10.0 Venturi Mask 10.0 08/29/19 12:00 95 08/29/19 12:00 10.0 35 Intake and Output 08/29/19 08/30/19 19:00 07:00 Intake Total 760 ml 710 ml Output Total 2890 ml 1475 ml Balance -2130 ml -765 ml Free Water 100 ml 50 ml Tube Feeding 660 ml 660 ml Output Urine Total 2890 ml 1475 ml # Bowel Movements 1 Current Medications Medications (Trade) Dose Ordered Sig/Amaris Route PRN Reason Start Time Stop Time Status Last Admin Dose Admin Acetaminophen (Tylenol) 650 mg Q4H PRN NG Mild Pain/Temp > 100.5 08/18/19 09:30 09/15/19 09:29 08/30/19 04:52 Amiodarone HCl (Cordarone) 200 mg DAILY NG 08/30/19 09:00 11/28/19 08:59 08/30/19 09:05 Atorvastatin Calcium (Lipitor) 40 mg BEDTIME NG 08/18/19 21:00 09/13/19 20:59 08/29/19 20:43 Chlorhexidine Gluconate (Kamila-Hex 2%) 1 applic DAILY@1999 TOPIC 08/18/19 20:00 09/17/19 19:59 08/29/19 20:00 Clopidogrel Bisulfate (Plavix) 75 mg DAILY NG 08/19/19 09:00 09/13/19 08:59 08/30/19 09:05 Heparin Sodium (Porcine) (Heparin 5000 units/ml) 5,000 units EVERY 12 HOURS SUBQ 08/21/19 09:00 10/05/19 08:59 08/30/19 09:07 Hydralazine HCl (Apresoline) 10 mg Q4H PRN IV For High Blood Pressure 08/21/19 10:50 11/19/19 10:49 08/30/19 02:20 Lorazepam (Ativan 2mg/ml 1ml) 2 mg Q4H PRN IV For Anxiety 08/26/19 11:45 09/02/19 11:44 08/26/19 17:45 Morphine Sulfate (Morphine Sulfate) 2 mg Q4H PRN IVP For Pain 08/26/19 11:45 09/02/19 11:44 Olanzapine (ZyPREXA Zydis) 5 mg BEDTIME NG 08/21/19 21:00 10/05/19 20:59 08/29/19 20:43 Pantoprazole (Protonix) 40 mg EVERY 12 HOURS IVP 08/21/19 09:00 09/20/19 08:59 08/30/19 09:05 Laboratory Tests 08/30/19 02:50: White Blood Count 8.8, Red Blood Count 3.98L, Hemoglobin 12.4L, Hematocrit 36.8L , Mean Corpuscular Volume 92, Mean Corpuscular Hemoglobin 31.1H, Mean Corpuscular Hemoglobin Concent 33.6, Red Cell Distribution Width 13.1, Platelet Count 330, Mean Platelet Volume 4.9L, Neutrophils (%) (Auto) 81.2H, Lymphocytes (%) (Auto) 9.5L, Monocytes (%) (Auto) 7.6, Eosinophils (%) (Auto) 1.1, Basophils (%) (Auto) 0.8, Sodium Level 143, Potassium Level 3.6, Chloride Level 105, Carbon Dioxide Level 33H, Anion Gap 5, Blood Urea Nitrogen 24H, Creatinine 0.6, Estimat Glomerular Filtration Rate > 60, Glucose Level 138H, Calcium Level 8.4L, Phosphorus Level 3.2, Magnesium Level 1.8, Total Bilirubin 0.8, Aspartate Amino Transf (AST/SGOT) 22, Alanine Aminotransferase (ALT/SGPT) 24, Alkaline Phosphatase 111, C-Reactive Protein, Quantitative 8.4H, Pro-B-Type Natriuretic Peptide 06935U, Total Protein 5.7L, Albumin 2.2L, Globulin 3.5, Albumin/ Globulin Ratio 0.6L Height (Feet): 5 Height (Inches): 6.00 Weight (Pounds): 220 General Appearance: no apparent distress EENT: other - Remains extubated on oxygen mask Cardiovascular: tachycardia Respiratory/Chest: decreased breath sounds Abdomen: distended Objective no change Yunior Sexton MD Aug 30, 2019 11:43
--- NOTE | 2019-08-30 14:19 | Surgery Progress Note ---
Surgery Progress Note Subjective Additional Comments Doing well since extubation. On facemask doing well. More alert awake Objective Last 24 Hour Vital Signs Date Time Temp Pulse Resp B/P (MAP) Pulse Ox O2 Delivery O2 Flow Rate FiO2 08/30/19 14:00 95 24 143/68 (93) 96 08/30/19 13:39 95 Cool Aerosol 10.0 35 08/30/19 13:00 94 23 170/62 (98) 96 08/30/19 12:00 98.3 95 24 160/68 (98) 95 08/30/19 12:00 10.0 35 08/30/19 12:00 Venturi Mask 10.0 Venturi Mask 10.0 Venturi Mask 10.0 08/30/19 11:00 94 23 147/56 (86) 96 08/30/19 10:00 95 22 160/69 (99) 96 08/30/19 09:00 96 22 153/63 (93) 96 08/30/19 08:00 Venturi Mask 10.0 Venturi Mask 10.0 Venturi Mask 10.0 08/30/19 08:00 98.8 95 23 150/65 (93) 94 08/30/19 08:00 10.0 35 08/30/19 08:00 96 08/30/19 07:30 96 Cool Aerosol 10.0 35 08/30/19 07:00 101 20 164/71 (102) 96 08/30/19 06:00 108 20 154/63 (93) 95 08/30/19 05:00 108 20 159/73 (101) 96 08/30/19 04:00 Venturi Mask 10.0 Venturi Mask 10.0 Venturi Mask 10.0 08/30/19 04:00 10.0 35 08/30/19 04:00 99 08/30/19 04:00 98.0 107 20 162/82 (108) 96 08/30/19 03:00 104 20 164/74 (104) 95 08/30/19 02:20 161/64 08/30/19 02:00 99 22 161/64 (96) 95 08/30/19 01:08 94 Cool Aerosol 10.0 35 08/30/19 01:00 96 20 157/66 (96) 95 08/30/19 00:00 10.0 35 08/30/19 00:00 Venturi Mask 10.0 Venturi Mask 10.0 Venturi Mask 10.0 08/30/19 00:00 94 08/30/19 00:00 98.6 94 22 149/61 (90) 96 08/29/19 23:00 93 22 158/62 (94) 95 08/29/19 22:00 91 20 136/61 (86) 97 08/29/19 21:00 99 19 143/64 (90) 95 08/29/19 20:00 10.0 35 08/29/19 20:00 97 08/29/19 20:00 98.9 98 25 159/61 (93) 95 08/29/19 20:00 Venturi Mask 10.0 Venturi Mask 10.0 Venturi Mask 10.0 08/29/19 19:14 94 Cool Aerosol 10.0 35 08/29/19 19:00 93 21 143/58 (86) 94 08/29/19 18:00 104 21 147/66 (93) 95 08/29/19 17:00 108 20 171/68 (102) 95 08/29/19 16:00 Venturi Mask 10.0 Venturi Mask 10.0 Venturi Mask 10.0 08/29/19 16:00 10.0 35 08/29/19 16:00 98.9 110 22 125/53 (77) 95 08/29/19 16:00 106 08/29/19 15:00 106 25 116/50 (72) 94 I&O Intake and Output 08/29/19 08/30/19 19:00 07:00 Intake Total 760 ml 710 ml Output Total 2890 ml 1475 ml Balance -2130 ml -765 ml Free Water 100 ml 50 ml Tube Feeding 660 ml 660 ml Output Urine Total 2890 ml 1475 ml # Bowel Movements 1 Dressing: saturated Wound: other Drains: other Cardiovascular: RSR Respiratory: decreased breath sounds Abdomen: soft, non-tender, present bowel sounds Extremities: no edema Laboratory Tests Test 08/30/19 02:50 White Blood Count 8.8 K/UL (4.8-10.8) Red Blood Count 3.98 M/UL (4.70-6.10) L Hemoglobin 12.4 G/DL (14.2-18.0) L Hematocrit 36.8 % (42.0-52.0) L Mean Corpuscular Volume 92 FL (80-99) Mean Corpuscular Hemoglobin 31.1 PG (27.0-31.0) H Mean Corpuscular Hemoglobin Concent 33.6 G/DL (32.0-36.0) Red Cell Distribution Width 13.1 % (11.6-14.8) Platelet Count 330 K/UL (150-450) Mean Platelet Volume 4.9 FL (6.5-10.1) L Neutrophils (%) (Auto) 81.2 % (45.0-75.0) H Lymphocytes (%) (Auto) 9.5 % (20.0-45.0) L Monocytes (%) (Auto) 7.6 % (1.0-10.0) Eosinophils (%) (Auto) 1.1 % (0.0-3.0) Basophils (%) (Auto) 0.8 % (0.0-2.0) Sodium Level 143 MMOL/L (136-145) Potassium Level 3.6 MMOL/L (3.5-5.1) Chloride Level 105 MMOL/L (98-107) Carbon Dioxide Level 33 MMOL/L (21-32) H Anion Gap 5 mmol/L (5-15) Blood Urea Nitrogen 24 mg/dL (7-18) H Creatinine 0.6 MG/DL (0.55-1.30) Estimat Glomerular Filtration Rate > 60 mL/min (>60) Glucose Level 138 MG/DL (74-106) H Calcium Level 8.4 MG/DL (8.5-10.1) L Phosphorus Level 3.2 MG/DL (2.5-4.9) Magnesium Level 1.8 MG/DL (1.8-2.4) Total Bilirubin 0.8 MG/DL (0.2-1.0) Aspartate Amino Transf (AST/SGOT) 22 U/L (15-37) Alanine Aminotransferase (ALT/SGPT) 24 U/L (12-78) Alkaline Phosphatase 111 U/L (46-116) C-Reactive Protein, Quantitative 8.4 mg/dL (0.00-0.90) H Pro-B-Type Natriuretic Peptide 29700 pg/mL (0-125) H Total Protein 5.7 G/DL (6.4-8.2) L Albumin 2.2 G/DL (3.4-5.0) L Globulin 3.5 g/dL Albumin/Globulin Ratio 0.6 (1.0-2.7) L Plan Problems: (1) Nosocomial pneumonia (2) AUREA (acute kidney injury) (3) Cardiomyopathy (4) Obesity (BMI 30.0-34.9) (5) DMII (diabetes mellitus, type 2) (6) Cardiac LV ejection fraction 40% (7) Pulmonary edema (8) Cardiopulmonary arrest Assessment & Plan: Cardiopulmonary arrest septic requiring urgent emergency line placement for pressors and fluids and meds Please see procedure report Full examination performed no other surgical issues found at this time etiology unknown likely surgical in nature Antibiotics fluids Pressors Vent weaning trials right groin site okay. no hematoma. no bleeding left arm picc okay NG tube is present in good position. A partial left lateral decubitus view of the abdomen performed as well as a supine view. The left lateral decubitus view is not adequate as the area of interest which would be the nondependent right side of the abdomen, which is the area of interest was not imaged and is beyond the field-of -view of the x-ray. Bowel gas pattern appears nonobstructive on the basis of the partial images obtained. off pressors labs reviewed cont tube feeds Unable to wean from ventilator. Labs noted ABG noted imaging reviewed cont weaning. if possible extubate otherwise will consider trach extubated improving monitor in ICU for now (9) Respiratory failure (10) History of hypertension (11) COPD (chronic obstructive pulmonary disease) (12) CAD (coronary artery disease) (13) Atrial fibrillation (14) Dementia with behavioral disturbance (15) Upper respiratory infection (16) Acute respiratory failure (17) Dyspnea (18) UTI (urinary tract infection) Prosper Hummel Aug 30, 2019 14:19
--- NOTE | 2019-08-30 14:53 | Infectious Diseases Prog Note ---
Assessment/Plan Assessment/Plan ASSESSMENT: The patient is a 79-year-old male with: Leukocytosis; Sp Fever , sp Sepsis, Sp Pneumonia ( probable asp), Sp RX -08/28 CXR: Interval removal of endotracheal tube. NG tube and left arm PICC line remain in place. Apparent worsening of aeration with increasing hazy opacities in the bilateral lower lungs which may in part be related to artifact from patient positioning however layering bilateral pleural effusions and bilateral airspace disease not excluded. -08/13 Scx: MDR-ACB (Tygacil LANI: 4) - CXR: 1. Streaky opacities in the right lower lung may represent atelectasis versus scarring. Left basilar opacity may represent atelectasis. Component of pneumonia is not excluded. Pulmonary vasculature congestion. -08/01 ucx NTD - sp cx: nl anastacio Urinary tract infection, SP Rx 08/17 Sp code blue and intubation , extubated 08/27 07/31 Sp Code blue and intubation , sp extubation 08/12 , Hyperlipidemia. COPD. History of GERD. History of encephalopathy. History of CAD/HI. History of cardiomyopathy. Hypertension. PLAN: Continue to monitor off abx -08/28 SP Colistin INH (MDR-ACB) # 14 - 08/22/19 SP Merrem 10 - 08/14 SP IV Vanco # 4 -08/07 SP Zosyn and IV Vanco # 7/7 , -08/01 SP Rocephin day # 10 - 07/31 sp sp Dox # 6 Monitor CBC. Monitor BMP. Monitor chest x-ray cont ICU Support Subjective Allergies: Coded Allergies: No Known Allergies (Unverified , 06/03/17) Subjective afebrile >72hrs no leukocytosis on venturi mask Objective Vital Signs Last 24 Hour Vital Signs Date Time Temp Pulse Resp B/P (MAP) Pulse Ox O2 Delivery O2 Flow Rate FiO2 08/30/19 14:00 95 24 143/68 (93) 96 08/30/19 13:39 95 Cool Aerosol 10.0 35 08/30/19 13:00 94 23 170/62 (98) 96 08/30/19 12:00 98.3 95 24 160/68 (98) 95 08/30/19 12:00 93 08/30/19 12:00 10.0 35 08/30/19 12:00 Venturi Mask 10.0 Venturi Mask 10.0 Venturi Mask 10.0 08/30/19 11:00 94 23 147/56 (86) 96 08/30/19 10:00 95 22 160/69 (99) 96 08/30/19 09:00 96 22 153/63 (93) 96 08/30/19 08:00 Venturi Mask 10.0 Venturi Mask 10.0 Venturi Mask 10.0 08/30/19 08:00 98.8 95 23 150/65 (93) 94 08/30/19 08:00 10.0 35 08/30/19 08:00 96 08/30/19 07:30 96 Cool Aerosol 10.0 35 08/30/19 07:00 101 20 164/71 (102) 96 08/30/19 06:00 108 20 154/63 (93) 95 08/30/19 05:00 108 20 159/73 (101) 96 08/30/19 04:00 Venturi Mask 10.0 Venturi Mask 10.0 Venturi Mask 10.0 08/30/19 04:00 10.0 35 08/30/19 04:00 99 08/30/19 04:00 98.0 107 20 162/82 (108) 96 08/30/19 03:00 104 20 164/74 (104) 95 08/30/19 02:20 161/64 08/30/19 02:00 99 22 161/64 (96) 95 08/30/19 01:08 94 Cool Aerosol 10.0 35 08/30/19 01:00 96 20 157/66 (96) 95 08/30/19 00:00 10.0 35 08/30/19 00:00 Venturi Mask 10.0 Venturi Mask 10.0 Venturi Mask 10.0 08/30/19 00:00 94 08/30/19 00:00 98.6 94 22 149/61 (90) 96 08/29/19 23:00 93 22 158/62 (94) 95 08/29/19 22:00 91 20 136/61 (86) 97 08/29/19 21:00 99 19 143/64 (90) 95 08/29/19 20:00 10.0 35 08/29/19 20:00 97 08/29/19 20:00 98.9 98 25 159/61 (93) 95 08/29/19 20:00 Venturi Mask 10.0 Venturi Mask 10.0 Venturi Mask 10.0 08/29/19 19:14 94 Cool Aerosol 10.0 35 08/29/19 19:00 93 21 143/58 (86) 94 08/29/19 18:00 104 21 147/66 (93) 95 08/29/19 17:00 108 20 171/68 (102) 95 08/29/19 16:00 Venturi Mask 10.0 Venturi Mask 10.0 Venturi Mask 10.0 08/29/19 16:00 10.0 35 08/29/19 16:00 98.9 110 22 125/53 (77) 95 08/29/19 16:00 106 08/29/19 15:00 106 25 116/50 (72) 94 Height (Feet): 5 Height (Inches): 6.00 Weight (Pounds): 220 Objective HEENT: Thin trach secretions. LUNGS: Bilateral breath sounds with rhonchi. CARDIAC: Regular rhythm and rate. Normal S1 and S2. ABDOMEN: Soft. EXTREMITIES: Trace edema. Laboratory Tests Test 08/30/19 02:50 White Blood Count 8.8 K/UL (4.8-10.8) Red Blood Count 3.98 M/UL (4.70-6.10) L Hemoglobin 12.4 G/DL (14.2-18.0) L Hematocrit 36.8 % (42.0-52.0) L Mean Corpuscular Volume 92 FL (80-99) Mean Corpuscular Hemoglobin 31.1 PG (27.0-31.0) H Mean Corpuscular Hemoglobin Concent 33.6 G/DL (32.0-36.0) Red Cell Distribution Width 13.1 % (11.6-14.8) Platelet Count 330 K/UL (150-450) Mean Platelet Volume 4.9 FL (6.5-10.1) L Neutrophils (%) (Auto) 81.2 % (45.0-75.0) H Lymphocytes (%) (Auto) 9.5 % (20.0-45.0) L Monocytes (%) (Auto) 7.6 % (1.0-10.0) Eosinophils (%) (Auto) 1.1 % (0.0-3.0) Basophils (%) (Auto) 0.8 % (0.0-2.0) Sodium Level 143 MMOL/L (136-145) Potassium Level 3.6 MMOL/L (3.5-5.1) Chloride Level 105 MMOL/L (98-107) Carbon Dioxide Level 33 MMOL/L (21-32) H Anion Gap 5 mmol/L (5-15) Blood Urea Nitrogen 24 mg/dL (7-18) H Creatinine 0.6 MG/DL (0.55-1.30) Estimat Glomerular Filtration Rate > 60 mL/min (>60) Glucose Level 138 MG/DL (74-106) H Calcium Level 8.4 MG/DL (8.5-10.1) L Phosphorus Level 3.2 MG/DL (2.5-4.9) Magnesium Level 1.8 MG/DL (1.8-2.4) Total Bilirubin 0.8 MG/DL (0.2-1.0) Aspartate Amino Transf (AST/SGOT) 22 U/L (15-37) Alanine Aminotransferase (ALT/SGPT) 24 U/L (12-78) Alkaline Phosphatase 111 U/L (46-116) C-Reactive Protein, Quantitative 8.4 mg/dL (0.00-0.90) H Pro-B-Type Natriuretic Peptide 28770 pg/mL (0-125) H Total Protein 5.7 G/DL (6.4-8.2) L Albumin 2.2 G/DL (3.4-5.0) L Globulin 3.5 g/dL Albumin/Globulin Ratio 0.6 (1.0-2.7) L Current Medications Medications (Trade) Dose Ordered Sig/Amaris Route PRN Reason Start Time Stop Time Status Last Admin Dose Admin Acetaminophen (Tylenol) 650 mg Q4H PRN NG Mild Pain/Temp > 100.5 08/18/19 09:30 09/15/19 09:29 08/30/19 04:52 Amiodarone HCl (Cordarone) 200 mg DAILY NG 08/30/19 09:00 11/28/19 08:59 08/30/19 09:05 Atorvastatin Calcium (Lipitor) 40 mg BEDTIME NG 08/18/19 21:00 09/13/19 20:59 08/29/19 20:43 Chlorhexidine Gluconate (Kamila-Hex 2%) 1 applic DAILY@2000 TOPIC 08/18/19 20:00 09/17/19 19:59 08/29/19 20:00 Clopidogrel Bisulfate (Plavix) 75 mg DAILY NG 08/19/19 09:00 09/13/19 08:59 08/30/19 09:05 Heparin Sodium (Porcine) (Heparin 5000 units/ml) 5,000 units EVERY 12 HOURS SUBQ 08/21/19 09:00 10/05/19 08:59 08/30/19 09:07 Hydralazine HCl (Apresoline) 10 mg Q4H PRN IV For High Blood Pressure 08/21/19 10:50 11/19/19 10:49 08/30/19 02:20 Lorazepam (Ativan 2mg/ml 1ml) 2 mg Q4H PRN IV For Anxiety 08/26/19 11:45 09/02/19 11:44 08/26/19 17:45 Morphine Sulfate (Morphine Sulfate) 2 mg Q4H PRN IVP For Pain 08/26/19 11:45 09/02/19 11:44 Olanzapine (ZyPREXA Zydis) 5 mg BEDTIME NG 08/21/19 21:00 10/05/19 20:59 08/29/19 20:43 Pantoprazole (Protonix) 40 mg EVERY 12 HOURS IVP 08/21/19 09:00 09/20/19 08:59 08/30/19 09:05 Ritu Lozano M.D. Aug 30, 2019 14:53
[2019-08-30] MEDS: Dyna-Hex 2% Top Sol 2oz TOPIC SCH (19:49)
[2019-08-30] MEDS: ZyPREXA Zydis 5mg tab NG SCH (20:54)
[2019-08-30] MEDS: Atorvastatin 20mg tab NG SCH (20:54)
[2019-08-31] VITALS (20 sets, daily range): BP systolic 118–173; BP diastolic 52–81
--- NOTE | 2019-08-31 00:30 | Progress Note ---
DATE: 08/30/2019 CARDIOLOGY PROGRESS NOTE SUBJECTIVE: The patient remains on Venturi mask. Blood pressure parameters rising. Monitor, sinus tachycardia and paroxysms of atrial fibrillation. OBJECTIVE: LUNGS: Bilateral rhonchi. CARDIAC: Irregularly irregular rhythm. Normal S1, paradoxically split S2. ABDOMEN: Soft. EXTREMITIES: No edema. LABORATORY AND DIAGNOSTIC DATA: Chest x-ray reveals worsening aeration with opacities in the lower lung kang and pleural effusions. White count 8.8, hemoglobin 12.4. Potassium 3.6, BUN 24, creatinine 0.6. Pro-natriuretic peptide has increased to 11,000. IMPRESSION: 1. Acute on chronic diastolic and systolic congestive heart failure. 2. Ischemic cardiomyopathy, status post cardiopulmonary arrest. 3. Respiratory failure x2. 4. Recovered sepsis with shock. 5. Chronic respiratory acidosis. PLAN: 1. Diuresis. 2. Close monitoring of acid-base parameters. 3. Replace electrolytes as needed. 4. Respiratory hygiene. 5. DVT prophylaxis. Saeed Sim M.D. DR: ASHLEY JOB#: [id number] CC:
--- NOTE | 2019-08-31 04:14 | Progress Note ---
DATE: 08/30/2019 SUBJECTIVE: The patient is awake, alert, afebrile, hemodynamically stable, and intermittently agitated. PHYSICAL EXAMINATION: VITAL SIGNS: His respiratory rate remained between 20 to 25 which is slightly slower than yesterday. His pulse is 100, blood pressure is 155/72, and temperature is 98.3. The patient's O2 saturation 94. pCO2 is between 31 to 33. HEENT: Eyes were normal. ENT, mucous membranes were moist and intact. NECK: Supple with no JVD without lymph nodes. LUNGS: Clear. HEART: Normal sounds with regular heart beats. There is tachycardia at rest. Sinus tachycardia on monitor. ABDOMEN: Soft and nontender with normal bowel sounds. EXTREMITIES: Warm without cyanosis, clubbing, or edema. LABORATORY DATA: His hemoglobin is 12.4, hematocrit 36.8, MCV of 92, WBC of 8.8, and platelets 330. His BUN and creatinine are 24 and 0.6 respectively. His sodium is 143, potassium 3.6, chloride 105, CO2 is 33. His glucose is 138. His calcium is 8.4. Magnesium is 1.8 and phosphorus is 3.2. SGOT, SGPT, and alkaline phosphatase are normal. His proBNP is now 11,000. His latest chest x-ray from yesterday showing increasing hazy opacity in bilateral lower lungs congestive heart failure. PLAN: The patient will Lasix 40 mg IV push daily. Repeat laboratory test will be done in the a.m. Modesta Mulligan M.D. DR: Chaparro JOB#: [id number] CC:
[2019-08-31 04:56] LABS: BASOPHILS % (AUTO) 0.9 % (0.0-2.0); EOSINOPHILS % (AUTO) 1.9 % (0.0-3.0); HEMATOCRIT 36.1 % (42.0-52.0); HEMOGLOBIN 12.3 G/DL (14.2-18.0); LYMPHOCYTES % (AUTO) 12.7 % (20.0-45.0); MEAN CORPUSCULAR VOLUME 92 FL (80-99); MONOCYTES % (AUTO) 8.6 % (1.0-10.0); PLATELET COUNT 355 K/UL (150-450); RED BLOOD COUNT 3.91 M/UL (4.70-6.10); WHITE BLOOD COUNT 7.6 K/UL (4.8-10.8)
[2019-08-31 05:18] LABS: ANION GAP 3 mmol/L (5-15); BLOOD UREA NITROGEN 22 mg/dL (7-18); CALCIUM 8.6 MG/DL (8.5-10.1); CARBON DIOXIDE 34 MMOL/L (21-32); CHLORIDE 106 MMOL/L (98-107); CREATININE 0.6 MG/DL (0.55-1.30); POTASSIUM 3.7 MMOL/L (3.5-5.1); SODIUM 143 MMOL/L (136-145)
[2019-08-31] MEDS: Amiodarone 200mg tab NG SCH (08:17)
[2019-08-31] MEDS: Pantoprazole Inj IVP SCH (08:17)
[2019-08-31] MEDS: Heparin 5000 units/ml inj SUBQ SCH (08:18)
--- NOTE | 2019-08-31 10:00 | Nephrology Progress Note ---
Assessment/Plan Problem List: (1) AUREA (acute kidney injury) Assessment: Serum creatinine rising (2) Cardiopulmonary arrest (3) Respiratory failure (4) Cardiomyopathy (5) Obesity (BMI 30.0-34.9) (6) DMII (diabetes mellitus, type 2) Assessment Acute Renal Failure : AUREA Most likely due to cardiorespiratory arrest and episode of hypotension. Patient also has cardiomyopathy with Ej Fx of 40 % on admission Obese : BMI 34.4 ? DM Other Dx (1) Cardiopulmonary arrest (2) Nosocomial pneumonia (3) Acute respiratory failure (4) COPD (chronic obstructive pulmonary disease) (5) Atrial fibrillation (6) Dementia with behavioral disturbance (7) CAD (coronary artery disease) Plan Patient was extubated August 27 remains on oxygen mask Today's labs reviewed D5 W IV fluids for hypernatremia as needed pressors are off now patient's condition somewhat more stable In ICU He is intubated ventilator, weaning is being tried His blood pressure is more stable Overall he is still doing poorly Adjust blood pressure medications Stress dose of steroids which we will start tapering today Previously Monitor renal parameters. Serum creatinine improved Monitor urine output. Urine output improved. Avoid nephrotoxics. Weaning as possible. Remains intubated at this time. Correct electrolyte imbalances. Change tube feeding to Glucerna. Subjective ROS Limited/Unobtainable: No Constitutional: Reports: malaise, weakness Objective Objective Last 24 Hour Vital Signs Date Time Temp Pulse Resp B/P (MAP) Pulse Ox O2 Delivery O2 Flow Rate FiO2 08/31/19 09:00 98.2 95 24 146/73 (97) 95 08/31/19 08:00 10.0 35 08/31/19 08:00 Venturi Mask 10.0 Venturi Mask 10.0 Venturi Mask 10.0 08/31/19 08:00 93 29 158/63 (94) 96 08/31/19 07:46 99 Cool Aerosol 10.0 35 08/31/19 07:00 92 25 144/59 (87) 95 08/31/19 06:00 99 23 119/68 (85) 94 08/31/19 05:00 99 25 135/61 (85) 94 08/31/19 04:00 10.0 35 08/31/19 04:00 Venturi Mask 10.0 Venturi Mask 10.0 Venturi Mask 10.0 3/29/20 04:00 98.9 101 24 128/73 (91) 98 08/31/19 04:00 101 08/31/19 03:00 100 22 128/55 (79) 97 08/31/19 02:00 98 22 119/52 (74) 96 08/31/19 01:26 97 Cool Aerosol 10.0 35 08/31/19 01:00 96 24 120/56 (77) 96 08/31/19 00:42 96 25 100 Cool Aerosol 10.0 35 101 24 98 08/31/19 00:00 97.8 99 23 118/66 (83) 95 08/31/19 00:00 Venturi Mask 10.0 Venturi Mask 10.0 Venturi Mask 10.0 08/31/19 00:00 10.0 35 08/30/19 23:02 96 08/30/19 23:00 102 23 143/65 (91) 95 08/30/19 22:00 100 21 155/72 (99) 98 08/30/19 21:00 95 25 137/68 (91) 98 08/30/19 20:00 Venturi Mask 10.0 Venturi Mask 10.0 Venturi Mask 10.0 08/30/19 20:00 10.0 35 08/30/19 20:00 98.3 101 25 163/70 (101) 97 08/30/19 19:54 164/79 08/30/19 19:08 96 08/30/19 19:00 98 25 164/79 (107) 97 08/30/19 18:50 96 Cool Aerosol 10.0 35 08/30/19 18:00 93 23 161/66 (97) 95 08/30/19 17:00 96 23 159/61 (93) 96 08/30/19 16:00 Venturi Mask 10.0 Venturi Mask 10.0 Venturi Mask 10.0 08/30/19 16:00 104 08/30/19 16:00 10.0 35 08/30/19 16:00 98.0 96 25 151/66 (94) 95 08/30/19 15:00 97 24 160/67 (98) 96 08/30/19 14:00 95 24 143/68 (93) 96 08/30/19 13:39 95 Cool Aerosol 10.0 35 08/30/19 13:00 94 23 170/62 (98) 96 08/30/19 12:00 98.3 95 24 160/68 (98) 95 08/30/19 12:00 93 08/30/19 12:00 10.0 35 08/30/19 12:00 Venturi Mask 10.0 Venturi Mask 10.0 Venturi Mask 10.0 08/30/19 11:00 94 23 147/56 (86) 96 Intake and Output 08/30/19 08/31/19 19:00 07:00 Intake Total 980 ml 820 ml Output Total 935 ml 2320 ml Balance 45 ml -1500 ml Free Water 200 ml Tube Feeding 660 ml 660 ml Other 120 ml 160 ml Output Urine Total 935 ml 2320 ml # Voids 50 # Bowel Movements 3 Laboratory Tests 08/31/19 03:50: White Blood Count 7.6, Red Blood Count 3.91L, Hemoglobin 12.3L, Hematocrit 36.1L , Mean Corpuscular Volume 92, Mean Corpuscular Hemoglobin 31.3H, Mean Corpuscular Hemoglobin Concent 33.9, Red Cell Distribution Width 13.0, Platelet Count 355, Mean Platelet Volume 4.8L, Neutrophils (%) (Auto) 76.0H, Lymphocytes (%) (Auto) 12.7L, Monocytes (%) (Auto) 8.6, Eosinophils (%) (Auto) 1.9, Basophils (%) (Auto) 0.9, Sodium Level 143, Potassium Level 3.7, Chloride Level 106, Carbon Dioxide Level 34H, Anion Gap 3L, Blood Urea Nitrogen 22H, Creatinine 0.6, Estimat Glomerular Filtration Rate > 60, Glucose Level 141H, Calcium Level 8.6 Height (Feet): 5 Height (Inches): 6.00 Weight (Pounds): 213 General Appearance: no apparent distress, lethargic EENT: other - On Ventimask Cardiovascular: tachycardia Respiratory/Chest: decreased breath sounds Abdomen: distended Objective no change Yunior Sexton MD Aug 31, 2019 10:00
--- NOTE | 2019-08-31 17:17 | Surgery Progress Note ---
Surgery Progress Note Subjective Additional Comments no acute events cxr ntoed Objective Last 24 Hour Vital Signs Date Time Temp Pulse Resp B/P (MAP) Pulse Ox O2 Delivery O2 Flow Rate FiO2 08/31/19 16:00 Venturi Mask 10.0 Venturi Mask 10.0 Venturi Mask 10.0 08/31/19 16:00 10.0 35 08/31/19 15:00 101 24 157/77 (103) 97 08/31/19 14:00 99 23 163/59 (93) 97 08/31/19 13:00 104 24 150/69 (96) 95 08/31/19 12:40 99 Cool Aerosol 10.0 35 08/31/19 12:18 170/88 08/31/19 12:00 99.1 97 22 173/71 (105) 97 08/31/19 12:00 10.0 35 08/31/19 12:00 Venturi Mask 10.0 Venturi Mask 10.0 Venturi Mask 10.0 08/31/19 11:28 99 08/31/19 11:00 95 25 158/67 (97) 96 08/31/19 10:00 95 24 149/75 (99) 94 08/31/19 09:00 98.2 95 24 146/73 (97) 95 08/31/19 08:00 10.0 35 08/31/19 08:00 Venturi Mask 10.0 Venturi Mask 10.0 Venturi Mask 10.0 08/31/19 08:00 93 29 158/63 (94) 96 08/31/19 07:46 99 Cool Aerosol 10.0 35 08/31/19 07:21 91 08/31/19 07:00 92 25 144/59 (87) 95 08/31/19 06:00 99 23 119/68 (85) 94 08/31/19 05:00 99 25 135/61 (85) 94 08/31/19 04:00 10.0 35 08/31/19 04:00 Venturi Mask 10.0 Venturi Mask 10.0 Venturi Mask 10.0 08/31/19 04:00 98.9 101 24 128/73 (91) 98 08/31/19 04:00 101 08/31/19 03:00 100 22 128/55 (79) 97 08/31/19 02:00 98 22 119/52 (74) 96 08/31/19 01:26 97 Cool Aerosol 10.0 35 08/31/19 01:00 96 24 120/56 (77) 96 08/31/19 00:42 96 25 100 Cool Aerosol 10.0 35 101 24 98 08/31/19 00:00 97.8 99 23 118/66 (83) 95 08/31/19 00:00 Venturi Mask 10.0 Venturi Mask 10.0 Venturi Mask 10.0 08/31/19 00:00 10.0 35 08/30/19 23:02 96 08/30/19 23:00 102 23 143/65 (91) 95 08/30/19 22:00 100 21 155/72 (99) 98 08/30/19 21:00 95 25 137/68 (91) 98 08/30/19 20:00 Venturi Mask 10.0 Venturi Mask 10.0 Venturi Mask 10.0 08/30/19 20:00 10.0 35 08/30/19 20:00 98.3 101 25 163/70 (101) 97 08/30/19 19:54 164/79 08/30/19 19:08 96 08/30/19 19:00 98 25 164/79 (107) 97 08/30/19 18:50 96 Cool Aerosol 10.0 35 08/30/19 18:00 93 23 161/66 (97) 95 I&O Intake and Output 08/30/19 08/31/19 19:00 07:00 Intake Total 980 ml 820 ml Output Total 935 ml 2320 ml Balance 45 ml -1500 ml Free Water 200 ml Tube Feeding 660 ml 660 ml Other 120 ml 160 ml Output Urine Total 935 ml 2320 ml # Voids 50 # Bowel Movements 3 Dressing: other Wound: other Drains: other Cardiovascular: RSR Respiratory: decreased breath sounds Abdomen: soft, non-tender, present bowel sounds Extremities: no cyanosis Laboratory Tests Test 08/31/19 03:50 White Blood Count 7.6 K/UL (4.8-10.8) Red Blood Count 3.91 M/UL (4.70-6.10) L Hemoglobin 12.3 G/DL (14.2-18.0) L Hematocrit 36.1 % (42.0-52.0) L Mean Corpuscular Volume 92 FL (80-99) Mean Corpuscular Hemoglobin 31.3 PG (27.0-31.0) H Mean Corpuscular Hemoglobin Concent 33.9 G/DL (32.0-36.0) Red Cell Distribution Width 13.0 % (11.6-14.8) Platelet Count 355 K/UL (150-450) Mean Platelet Volume 4.8 FL (6.5-10.1) L Neutrophils (%) (Auto) 76.0 % (45.0-75.0) H Lymphocytes (%) (Auto) 12.7 % (20.0-45.0) L Monocytes (%) (Auto) 8.6 % (1.0-10.0) Eosinophils (%) (Auto) 1.9 % (0.0-3.0) Basophils (%) (Auto) 0.9 % (0.0-2.0) Sodium Level 143 MMOL/L (136-145) Potassium Level 3.7 MMOL/L (3.5-5.1) Chloride Level 106 MMOL/L (98-107) Carbon Dioxide Level 34 MMOL/L (21-32) H Anion Gap 3 mmol/L (5-15) L Blood Urea Nitrogen 22 mg/dL (7-18) H Creatinine 0.6 MG/DL (0.55-1.30) Estimat Glomerular Filtration Rate > 60 mL/min (>60) Glucose Level 141 MG/DL (74-106) H Calcium Level 8.6 MG/DL (8.5-10.1) Plan Problems: (1) Nosocomial pneumonia (2) AUREA (acute kidney injury) (3) Cardiomyopathy (4) Obesity (BMI 30.0-34.9) (5) DMII (diabetes mellitus, type 2) (6) Cardiac LV ejection fraction 40% (7) Pulmonary edema (8) Cardiopulmonary arrest Assessment & Plan: Cardiopulmonary arrest septic requiring urgent emergency line placement for pressors and fluids and meds Please see procedure report Full examination performed no other surgical issues found at this time etiology unknown likely surgical in nature Antibiotics fluids Pressors Vent weaning trials right groin site okay. no hematoma. no bleeding left arm picc okay NG tube is present in good position. A partial left lateral decubitus view of the abdomen performed as well as a supine view. The left lateral decubitus view is not adequate as the area of interest which would be the nondependent right side of the abdomen, which is the area of interest was not imaged and is beyond the field-of -view of the x-ray. Bowel gas pattern appears nonobstructive on the basis of the partial images obtained. off pressors labs reviewed cont tube feeds Unable to wean from ventilator. Labs noted ABG noted imaging reviewed cont weaning. if possible extubate otherwise will consider trach extubated improving monitor in ICU for now downgrade * Interval removal of endotracheal tube. NG tube and left arm PICC line remain in place. * Apparent worsening of aeration with increasing hazy opacities in the bilateral lower lungs which may in part be related to artifact from patient positioning however layering bilateral pleural effusions and bilateral airspace disease not excluded. Follow-up recommended. (9) Respiratory failure (10) History of hypertension (11) COPD (chronic obstructive pulmonary disease) (12) CAD (coronary artery disease) (13) Atrial fibrillation (14) Dementia with behavioral disturbance (15) Upper respiratory infection (16) Acute respiratory failure (17) Dyspnea (18) UTI (urinary tract infection) Prosper Hummel Aug 31, 2019 17:17
[2019-08-31] MEDS ORDERED: Acetaminophen 650mg/20.3ml NG PRN (19:30)
[2019-08-31] MEDS ORDERED: LORazepam Inj 2mg/ml 1ml IV PRN (19:45)
[2019-08-31] MEDS ORDERED: Morphine Sulfate 2mg/ml Inj(IV/IM USE ONLY) IVP PRN (19:45)
[2019-08-31] MEDS ORDERED: Albuterol/Ipratropium 3ml neb HHN PRN ×2 (20:00)
[2019-08-31] MEDS ORDERED: Dyna-Hex 2% Top Sol 2oz TOPIC SCH (20:00)
[2019-08-31] MEDS ORDERED: Heparin 5000 units/ml inj SUBQ SCH (21:00)
[2019-08-31] MEDS ORDERED: Atorvastatin 20mg tab NG SCH (21:00)
[2019-08-31] MEDS ORDERED: Pantoprazole Inj IVP SCH (21:00)
[2019-08-31] MEDS ORDERED: ZyPREXA Zydis 5mg tab NG SCH (21:00)
--- NOTE | 2019-08-31 23:30 | Progress Note ---
DATE: 08/31/2019 CARDIOLOGY PROGRESS NOTE SUBJECTIVE: The patient remains off ventilator support. No respiratory distress. Heart rate elevations at times. Monitored rhythm, sinus with paroxysms of AFib. PHYSICAL EXAMINATION: HEENT: Thin secretions. CARDIAC: Regular rhythm and rate. Normal S1, S2. ABDOMEN: Soft. EXTREMITIES: No edema. LABORATORY DATA: White count 7.6, hemoglobin 12.3. Sodium 143, potassium 3.7, bicarb 34, BUN 22, creatinine 0.6. IMPRESSION: 1. Status post respiratory failure, status post cardiopulmonary arrest. 2. Acute on chronic diastolic and systolic congestive heart failure. 3. COPD. 4. Paroxysmal atrial fibrillation. 5. Chronic respiratory acidosis. PLAN: 1. Maintenance amiodarone dosing. 2. Diuresis with caution. 3. Close monitoring of acid-base parameters. Saeed Sim M.D. DR: DARYA JOB#: [id number] CC:
[2019-09-01] VITALS (39 sets, daily range): BP systolic 68–150; BP diastolic 37–76
[2019-09-01] MEDS ORDERED: dilTIAZem HCl 90mg tab NG SCH (00:15)
[2019-09-01] MEDS ORDERED: dilTIAZem HCl 90mg tab ORAL SCH (01:00)
--- NOTE | 2019-09-01 02:00 | Progress Note ---
DATE: 08/31/2019 SUBJECTIVE: The patient was from the ICU to the [facility] unit. He is awake, alert, afebrile, but has tachycardia with arrhythmia insufficiently controlled without pressure. In addition, he attempted to move his right hand to remove his oxygen mask. PHYSICAL EXAMINATION: VITAL SIGNS: Blood pressure is 166/70, his pulse is 110, respirations 22, and temperature is 98.5. HEENT: Eyes were normal. ENT, mucous membranes were moist and intact. NECK: Supple with no JVD without lymph nodes. LUNGS: Clear. HEART: Has normal sounds with irregular beats. There is tachycardia at rest. There is sinus arrhythmia with first and second-degree end AV block intermittently. ABDOMEN: Soft, nontender, with normal bowel sounds. EXTREMITIES: Warm without cyanosis or clubbing with 1+ edema. LABORATORY AND DIAGNOSTIC DATA: Hemoglobin is 12.3, hematocrit 36.1 with MCV of 92, WBC of 7.6, and platelets is 355,000. His BUN and creatinine is 22 and 0.6 respectively. His sodium is 143, potassium 3.7, chloride 106. CO2 is 34. His calcium is 8.6. ProBNP was not done today. Yesterday, it was 11,388. No chest x-ray was done today. IMPRESSION: The patient is successfully extubated from the ventilator now for more than 3 days, is now in [facility]. He does have cardiac arrhythmia and uncontrolled high blood pressure. PLAN: The patient is on amiodarone 200 mg daily, he is also on clopidogrel 75 mg daily. He is on 10 mg p.r.n. and furosemide has been discontinued, diltiazem 90 mg b.i.d. will be given. Repeat laboratory tests will be done in the a.m. Modesta Mulligan M.D. DR: ANJEL JOB#: [id number] CC:
[2019-09-01 05:09] LABS: HEMATOCRIT 38.4 % (42.0-52.0); MEAN CORPUSCULAR VOLUME 93 FL (80-99); PLATELET COUNT 374 K/UL (150-450); RED BLOOD COUNT 4.13 M/UL (4.70-6.10); RED CELL DISTRIBUTION WIDTH 13.2 % (11.6-14.8); WHITE BLOOD COUNT 9.5 K/UL (4.8-10.8)
[2019-09-01 05:21] LABS: ALANINE AMINOTRANSFERASE 50 U/L (12-78); ALBUMIN 2.3 G/DL (3.4-5.0); ALBUMIN/GLOBULIN RATIO 0.7 (1.0-2.7); ALKALINE PHOSPHATASE 101 U/L (46-116); ANION GAP 10 mmol/L (5-15); ASPARTATE AMINO TRANSFERASE 42 U/L (15-37); BILIRUBIN,TOTAL 0.6 MG/DL (0.2-1.0); BLOOD UREA NITROGEN 28 mg/dL (7-18); CALCIUM 8.8 MG/DL (8.5-10.1); CARBON DIOXIDE 29 MMOL/L (21-32); CHLORIDE 108 MMOL/L (98-107); CREATININE 0.7 MG/DL (0.55-1.30); POTASSIUM 3.8 MMOL/L (3.5-5.1); SODIUM 147 MMOL/L (136-145)
--- NOTE | 2019-09-01 08:25 | Emergency Room Report ---
Physical Exam Vital Signs Date Time Temp Pulse Resp B/P (MAP) Pulse Ox O2 Delivery O2 Flow Rate FiO2 08/28/19 07:00 64 16 134/53 (80) 98 08/28/19 07:29 30 08/28/19 08:00 98.6 08/28/19 08:00 Mechanical Ventilator Mechanical Ventilator 08/28/19 11:10 6.0 Medical Decision Making Diagnostic Impression: Primary Impression: Respiratory failure Additional Impression: Cardiopulmonary arrest ER Course Called to the patient's room after a rapid response for intubation. Patient admitted for COPD with multiple intubations recently extubated. Worsening blood gas desaturations and labored breathing. Patient was intubated using 7.5 endotracheal tube under glide scope visualization on first attempt with no complications. Bilateral breath sounds after the procedure. Chest x-ray shows endotracheal tube is projecting slightly over the right mainstem bronchus and will be retracted 2 cm. Remainder of care per ICU team. Recall as needed. Chest X-Ray Diagnostic Results Chest X-Ray Diagnostic Results : Chest X-Ray Ordered: Yes # of Views/Limited/Complete: 1 View Indication: Other - Intubation EP Interpretation: Yes Interpretation: other - Possible left lower lobe infiltrate. Endotracheal tube in trachea at level of maya Impression: Other - Endotracheal tube at the maya Electronically Signed by: Electronically signed by Dr. Sergio Aburto Last Vital Signs Date Time Temp Pulse Resp B/P (MAP) Pulse Ox O2 Delivery O2 Flow Rate FiO2 09/01/19 07:16 93 Cool Aerosol 10.0 35 09/01/19 04:00 98.0 109 24 131/60 (83) Disposition: ADMITTED INPATIENT Condition: Critical Referrals: Modesta Mulligan MD (PCP) Procedures Intubation Intubation : Consent: Emergent Intubation Method: orotracheal Tube Size (cm): 7.5 Medications: Etomidate - 20 mg, Rocuronium - 100 mg Breath Sounds after Intubation: equal Intubation Complications: no complications Post Intubation Xray: Yes Attempts: One Patient Tolerated: Well Complications: None Sergio Aburto MD Sep 01, 2019 08:25
--- NOTE | 2019-09-01 08:45 | Progress Note ---
DATE: 08/29/2019 SUBJECTIVE: Patient is awake, alert, afebrile, hemodynamically stable. He is extubated now for more than 36 hours. Repeat 00:26 28 hours. PHYSICAL EXAMINATION: VITAL SIGNS: Blood pressure 125/57, his pulse is 110, respirations 22, temperature 98.9. HEENT: Eyes were normal. ENT, mucous membranes were moist and intact. NECK: Supple with no JVD without lymph nodes. LUNGS: Clear. HEART: Normal sounds with regular heart beats. There is tachycardia at rest. ABDOMEN: Soft and nontender with normal bowel sounds. EXTREMITIES: Warm without cyanosis, clubbing, or edema. LABORATORY DATA: Hemoglobin is 10.9, hematocrit 31.9 with MCV of 93, WBC of 7.9, and platelets of 275,000. His BUN and creatinine are 34 and 0.7 respectively. His sodium is 144, potassium 3.8, chloride 107, and CO2 is 33. His calcium is 8.3. His BNP declined from 5500 to 2900. His chest x-ray 02:12 with increased haziness in bilateral lower lobes 02:29 position dependent and bilateral pleural effusions. IMPRESSION: The patient 02:49 at a rate between 25 to 30 often and 20 to 25 intermittently. In both cases, oxygen saturation remained 94 indicating the developing tachypnea 03:17 rather than 03:22 respiratory needs. PLAN: We will continue to observe the patient in the ICU for the next 18 to 24 hours. Repeat laboratory tests will be done in a.m. Modesta Mulligan M.D. DR: Valeriano JOB#: [id number] CC:
[2019-09-01] MEDS ORDERED: Amiodarone 200mg tab NG SCH (09:00)
--- NOTE | 2019-09-01 09:42 | Pulmonolgy Critical Care Note ---
Critical Care - Asmt/Plan Problems: (1) Acute respiratory failure Assessment & Plan: got reintubated (2) Cardiac LV ejection fraction 40% (3) Cardiopulmonary arrest (4) Nosocomial pneumonia (5) Atrial fibrillation Assessment & Plan: controlled (6) Pulmonary edema (7) COPD (chronic obstructive pulmonary disease) (8) CAD (coronary artery disease) (9) Dementia with behavioral disturbance Respiratory: monitor respiratory rate, adjust FIO2, CXR, other Cardiac: start pressors, continue pressors Infectious Disease: continue antibiotics Gastrointestinal: continue feedings/current rate Hematologic: transfuse if hgb<8.5 Neurologic: PRN Ativan, PRN Morphine, keep patient comfortable Affect: PRN ativan Time Spent (Minutes): 40 Notes Reviewed: cardio, renal Discussed with: nurses, consultants, pillowcase cleaner, other - Pt doesn't have any family member to conset to tracheostomy. We are between a rock and a hard place. Tracheostomy is not really an emergent, life saving procedure. Therefore we can't do by conset of two physicians. Critical Care - Objective Last 24 Hour Vital Signs Date Time Temp Pulse Resp B/P (MAP) Pulse Ox O2 Delivery O2 Flow Rate FiO2 09/01/19 08:46 84 09/01/19 08:30 111 14 100 09/01/19 08:00 98.0 79 119/55 (76) 84 09/01/19 08:00 Bi-pap Bi-pap Bi-pap 09/01/19 07:16 93 Cool Aerosol 10.0 35 09/01/19 04:00 98.0 109 24 131/60 (83) 97 09/01/19 04:00 10.0 35 09/01/19 04:00 Venturi Mask 10.0 Venturi Mask 10.0 Venturi Mask 10.0 09/01/19 03:38 71 09/01/19 01:53 98 Cool Aerosol 10.0 35 09/01/19 00:54 110 155/74 09/01/19 00:00 97.9 110 22 150/65 (93) 97 08/31/19 23:31 109 08/31/19 22:51 166/70 08/31/19 20:00 Venturi Mask 10.0 Venturi Mask 10.0 Venturi Mask 10.0 08/31/19 20:00 10.0 35 3/29/20 20:00 98.5 110 22 166/70 (102) 95 08/31/19 19:34 105 08/31/19 18:45 99 Cool Aerosol 10.0 35 08/31/19 18:00 102 23 158/65 (96) 97 08/31/19 17:00 102 22 155/61 (92) 96 08/31/19 16:00 Venturi Mask 10.0 Venturi Mask 10.0 Venturi Mask 10.0 08/31/19 16:00 99.1 103 24 156/81 (106) 95 08/31/19 16:00 10.0 35 08/31/19 15:17 98 08/31/19 15:00 101 24 157/77 (103) 97 08/31/19 14:00 99 23 163/59 (93) 97 08/31/19 13:00 104 24 150/69 (96) 95 08/31/19 12:40 99 Cool Aerosol 10.0 35 08/31/19 12:18 170/88 08/31/19 12:00 99.1 97 22 173/71 (105) 97 08/31/19 12:00 10.0 35 08/31/19 12:00 Venturi Mask 10.0 Venturi Mask 10.0 Venturi Mask 10.0 08/31/19 11:28 99 08/31/19 11:00 95 25 158/67 (97) 96 08/31/19 10:00 95 24 149/75 (99) 94 Status: awake Condition: grave HEENT: atraumatic Lungs: clear Heart: HR/BP stable Extremities: no C/C/E Decubiti: location Accucheck: 150 Critical Care - Subjective ROS Limited/Unobtainable: No Condition: critical EKG Rhythm: Sinus Rhythm FI02: 100 Vent Support Breath Rate: 14 Vent Support Mode: AC Vent Tidal Volume: 500 Sputum Amount: Small PEEP: 5.0 PIP: 28 Tube Feeding Amount: 55 I&O: Intake and Output 08/31/19 09/01/19 19:00 07:00 Intake Total 660 ml 705 ml Output Total 2045 ml 450 ml Balance -1385 ml 255 ml Free Water 100 ml Tube Feeding 660 ml 605 ml Output Urine Total 2045 ml 450 ml # Bowel Movements 2 1 CXR: cxr post intubation is clear ET-Tube: 8.0 ET Position: 24 Labs: Laboratory Tests Test 09/01/19 03:40 09/01/19 04:00 White Blood Count 9.5 K/UL (4.8-10.8) Red Blood Count 4.13 M/UL (4.70-6.10) L Hemoglobin 13.0 G/DL (14.2-18.0) L Hematocrit 38.4 % (42.0-52.0) L Mean Corpuscular Volume 93 FL (80-99) Mean Corpuscular Hemoglobin 31.4 PG (27.0-31.0) H Mean Corpuscular Hemoglobin Concent 33.9 G/DL (32.0-36.0) Red Cell Distribution Width 13.2 % (11.6-14.8) Platelet Count 374 K/UL (150-450) Mean Platelet Volume 4.8 FL (6.5-10.1) L Neutrophils (%) (Auto) % (45.0-75.0) Lymphocytes (%) (Auto) % (20.0-45.0) Monocytes (%) (Auto) % (1.0-10.0) Eosinophils (%) (Auto) % (0.0-3.0) Basophils (%) (Auto) % (0.0-2.0) Sodium Level 147 MMOL/L (136-145) H Potassium Level 3.8 MMOL/L (3.5-5.1) Chloride Level 108 MMOL/L (98-107) H Carbon Dioxide Level 29 MMOL/L (21-32) Anion Gap 10 mmol/L (5-15) Blood Urea Nitrogen 28 mg/dL (7-18) H Creatinine 0.7 MG/DL (0.55-1.30) Estimat Glomerular Filtration Rate > 60 mL/min (>60) Glucose Level 152 MG/DL (74-106) H Calcium Level 8.8 MG/DL (8.5-10.1) Total Bilirubin 0.6 MG/DL (0.2-1.0) Aspartate Amino Transf (AST/SGOT) 42 U/L (15-37) H Alanine Aminotransferase (ALT/SGPT) 50 U/L (12-78) Alkaline Phosphatase 101 U/L (46-116) Pro-B-Type Natriuretic Peptide 7176 pg/mL (0-125) H Total Protein 5.8 G/DL (6.4-8.2) L Albumin 2.3 G/DL (3.4-5.0) L Globulin 3.5 g/dL Albumin/Globulin Ratio 0.7 (1.0-2.7) L Arterial Blood pH 7.225 (7.350-7.450) Arterial Blood Partial Pressure CO2 95.5 mmHg (35.0-45.0) *H Arterial Blood Partial Pressure O2 91.0 mmHg (75.0-100.0) Arterial Blood HCO3 38.6 mmol/L (22.0-26.0) H Arterial Blood Oxygen Saturation 95.0 % (95-100) Arterial Blood Base Excess 7.3 (-2-2) H Joe Test Positive Nicloe Graves MD Sep 01, 2019 09:42
[2019-09-01] MEDS ORDERED: Acetaminophen 650mg/20.3ml NG PRN (10:20)
[2019-09-01] MEDS ORDERED: LORazepam Inj 2mg/ml 1ml IV PRN (10:20)
[2019-09-01] MEDS ORDERED: Albuterol/Ipratropium 3ml neb HHN PRN (10:20)
[2019-09-01] MEDS ORDERED: Morphine Sulfate 2mg/ml Inj(IV/IM USE ONLY) IVP PRN (10:21)
[2019-09-01] MEDS: dilTIAZem HCl 90mg tab NG SCH ×2 (10:23→20:31)
[2019-09-01] MEDS: Pantoprazole Inj IVP SCH ×2 (10:28→20:31)
[2019-09-01] MEDS: Heparin 5000 units/ml inj SUBQ SCH ×2 (10:30→20:33)
[2019-09-01] MEDS: Amiodarone 200mg tab NG SCH (10:37)
--- NOTE | 2019-09-01 10:51 | Nephrology Progress Note ---
Assessment/Plan Problem List: (1) AUREA (acute kidney injury) Assessment: Serum creatinine rising (2) Cardiopulmonary arrest (3) Respiratory failure (4) Cardiomyopathy (5) Obesity (BMI 30.0-34.9) (6) DMII (diabetes mellitus, type 2) Assessment Acute Renal Failure : AUREA Most likely due to cardiorespiratory arrest and episode of hypotension. Patient also has cardiomyopathy with Ej Fx of 40 % on admission Obese : BMI 34.4 ? DM Other Dx (1) Cardiopulmonary arrest (2) Nosocomial pneumonia (3) Acute respiratory failure (4) COPD (chronic obstructive pulmonary disease) (5) Atrial fibrillation (6) Dementia with behavioral disturbance (7) CAD (coronary artery disease) Plan Patient is now reintubated and back in ICU Today's labs reviewed D5 W IV fluids for hypernatremia as needed pressors are off now patient's condition somewhat more stable In ICU He is intubated ventilator, weaning is being tried His blood pressure is more stable Overall he is still doing poorly Adjust blood pressure medications Stress dose of steroids which we will start tapering today Previously Monitor renal parameters. Serum creatinine improved Monitor urine output. Urine output improved. Avoid nephrotoxics. Weaning as possible. Remains intubated at this time. Correct electrolyte imbalances. Change tube feeding to Glucerna. Subjective ROS Limited/Unobtainable: Yes Objective Objective Last 24 Hour Vital Signs Date Time Temp Pulse Resp B/P (MAP) Pulse Ox O2 Delivery O2 Flow Rate FiO2 09/01/19 09:36 100 09/01/19 08:46 84 09/01/19 08:30 111 14 100 09/01/19 08:00 98.0 79 119/55 (76) 84 09/01/19 08:00 Bi-pap Bi-pap Bi-pap 09/01/19 07:51 87 09/01/19 07:16 93 Cool Aerosol 10.0 35 09/01/19 04:00 98.0 109 24 131/60 (83) 97 09/01/19 04:00 10.0 35 09/01/19 04:00 Venturi Mask 10.0 Venturi Mask 10.0 Venturi Mask 10.0 09/01/19 03:38 71 09/01/19 01:53 98 Cool Aerosol 10.0 35 09/01/19 00:54 110 155/74 09/01/19 00:00 97.9 110 22 150/65 (93) 97 3/29/20 23:31 109 08/31/19 22:51 166/70 08/31/19 20:00 Venturi Mask 10.0 Venturi Mask 10.0 Venturi Mask 10.0 08/31/19 20:00 10.0 35 08/31/19 20:00 98.5 110 22 166/70 (102) 95 08/31/19 19:34 105 08/31/19 18:45 99 Cool Aerosol 10.0 35 08/31/19 18:00 102 23 158/65 (96) 97 08/31/19 17:00 102 22 155/61 (92) 96 08/31/19 16:00 Venturi Mask 10.0 Venturi Mask 10.0 Venturi Mask 10.0 08/31/19 16:00 99.1 103 24 156/81 (106) 95 08/31/19 16:00 10.0 35 08/31/19 15:17 98 08/31/19 15:00 101 24 157/77 (103) 97 08/31/19 14:00 99 23 163/59 (93) 97 08/31/19 13:00 104 24 150/69 (96) 95 08/31/19 12:40 99 Cool Aerosol 10.0 35 08/31/19 12:18 170/88 08/31/19 12:00 99.1 97 22 173/71 (105) 97 08/31/19 12:00 10.0 35 08/31/19 12:00 Venturi Mask 10.0 Venturi Mask 10.0 Venturi Mask 10.0 08/31/19 11:28 99 08/31/19 11:00 95 25 158/67 (97) 96 Intake and Output 08/31/19 09/01/19 19:00 07:00 Intake Total 660 ml 705 ml Output Total 2045 ml 450 ml Balance -1385 ml 255 ml Free Water 100 ml Tube Feeding 660 ml 605 ml Output Urine Total 2045 ml 450 ml # Bowel Movements 2 1 Laboratory Tests 09/01/19 03:40: White Blood Count 9.5, Red Blood Count 4.13L, Hemoglobin 13.0L, Hematocrit 38.4L , Mean Corpuscular Volume 93, Mean Corpuscular Hemoglobin 31.4H, Mean Corpuscular Hemoglobin Concent 33.9, Red Cell Distribution Width 13.2, Platelet Count 374, Mean Platelet Volume 4.8L, Neutrophils (%) (Auto) , Lymphocytes (%) ( Auto) , Monocytes (%) (Auto) , Eosinophils (%) (Auto) , Basophils (%) (Auto) , Sodium Level 147H, Potassium Level 3.8, Chloride Level 108H, Carbon Dioxide Level 29, Anion Gap 10, Blood Urea Nitrogen 28H, Creatinine 0.7, Estimat Glomerular Filtration Rate > 60, Glucose Level 152H, Calcium Level 8.8, Total Bilirubin 0.6, Aspartate Amino Transf (AST/SGOT) 42H, Alanine Aminotransferase ( ALT/SGPT) 50, Alkaline Phosphatase 101, Pro-B-Type Natriuretic Peptide 7176H, Total Protein 5.8L, Albumin 2.3L, Globulin 3.5, Albumin/Globulin Ratio 0.7L 09/01/19 04:00: Arterial Blood pH 7.225*L, Arterial Blood Partial Pressure CO2 95.5*H, Arterial Blood Partial Pressure O2 91.0, Arterial Blood HCO3 38.6H, Arterial Blood Oxygen Saturation 95.0, Arterial Blood Base Excess 7.3H, Joe Test Positive Height (Feet): 5 Height (Inches): 6.00 Weight (Pounds): 215 General Appearance: no apparent distress EENT: other Cardiovascular: tachycardia - Patient was reintubated and is back in ICU Respiratory/Chest: decreased breath sounds Abdomen: distended Objective no change Yunior Sexton MD Sep 01, 2019 10:51
--- NOTE | 2019-09-01 11:01 | Diagnostic Imaging Report ---
Indication: Dyspnea Comparison: 09/01/2019 at 8:57 A single view chest radiograph was obtained. Findings: Endotracheal tube and nasogastric tubes are in good position. There is a hazy opacity at the left lung base again noted unchanged. Mild linear densities are seen in the right midlung which may be atelectasis or scarring. Bones are osteopenic. IMPRESSION: No change compared to the earlier film. Small left pleural effusion. Atelectasis versus scarring in the right midlung
[2019-09-01] MEDS ORDERED: Levophed 4mg/4mL Inj IV ONE (11:53)
--- NOTE | 2019-09-01 11:55 | Diagnostic Imaging Report ---
Indication: Intubation Comparison: 08/29/2019 A single view chest radiograph was obtained. Findings: Endotracheal tube is in the right mainstem bronchus. Heart size is stable. Left pleural effusion suspected. IMPRESSION: Right mainstem intubation
--- NOTE | 2019-09-01 13:13 | Surgery Progress Note ---
Surgery Progress Note Subjective Additional Comments respiratory distress intubated in ICU on vent support pressors Objective Last 24 Hour Vital Signs Date Time Temp Pulse Resp B/P (MAP) Pulse Ox O2 Delivery O2 Flow Rate FiO2 09/01/19 13:00 75 14 95/43 (60) 98 09/01/19 13:00 75 14 95/43 (60) 98 09/01/19 12:50 35 09/01/19 12:49 68 14 35 09/01/19 12:45 69 14 87/43 (58) 100 09/01/19 12:30 66 14 87/43 (58) 100 09/01/19 12:08 69/44 09/01/19 12:00 100 09/01/19 12:00 69 14 69/44 (52) 100 09/01/19 11:08 72 15 100 09/01/19 11:07 72 14 100 Mechanical Ventilator 100 09/01/19 11:00 97.5 72 15 68/39 (49) 100 09/01/19 10:46 74 14 71/39 (50) 100 09/01/19 10:30 75 13 72/37 (49) 100 09/01/19 10:15 78 15 70/45 (53) 100 09/01/19 10:00 75 14 100/47 (64) 100 09/01/19 09:36 100 09/01/19 09:30 82 14 98/61 (73) 100 09/01/19 09:00 97.4 91 12 84/56 (65) 100 09/01/19 08:46 84 09/01/19 08:30 111 14 100 09/01/19 08:00 98.0 79 119/55 (76) 84 09/01/19 08:00 Bi-pap Bi-pap Bi-pap 09/01/19 07:51 87 09/01/19 07:16 93 Cool Aerosol 10.0 35 09/01/19 04:00 98.0 109 24 131/60 (83) 97 09/01/19 04:00 10.0 35 09/01/19 04:00 Venturi Mask 10.0 Venturi Mask 10.0 Venturi Mask 10.0 09/01/19 03:38 71 09/01/19 01:53 98 Cool Aerosol 10.0 35 09/01/19 00:54 110 155/74 09/01/19 00:00 97.9 110 22 150/65 (93) 97 08/31/19 23:31 109 08/31/19 22:51 166/70 08/31/19 20:00 Venturi Mask 10.0 Venturi Mask 10.0 Venturi Mask 10.0 08/31/19 20:00 10.0 35 08/31/19 20:00 98.5 110 22 166/70 (102) 95 08/31/19 19:34 105 08/31/19 18:45 99 Cool Aerosol 10.0 35 08/31/19 18:00 102 23 158/65 (96) 97 08/31/19 17:00 102 22 155/61 (92) 96 08/31/19 16:00 Venturi Mask 10.0 Venturi Mask 10.0 Venturi Mask 10.0 08/31/19 16:00 99.1 103 24 156/81 (106) 95 08/31/19 16:00 10.0 35 08/31/19 15:17 98 08/31/19 15:00 101 24 157/77 (103) 97 08/31/19 14:00 99 23 163/59 (93) 97 I&O Intake and Output 08/31/19 09/01/19 19:00 07:00 Intake Total 660 ml 705 ml Output Total 2045 ml 450 ml Balance -1385 ml 255 ml Free Water 100 ml Tube Feeding 660 ml 605 ml Output Urine Total 2045 ml 450 ml # Bowel Movements 2 1 Dressing: other Wound: other Drains: other Cardiovascular: RSR Respiratory: decreased breath sounds Abdomen: soft, non-tender, present bowel sounds Extremities: no cyanosis Laboratory Tests Test 09/01/19 03:40 09/01/19 04:00 09/01/19 11:00 White Blood Count 9.5 K/UL (4.8-10.8) Red Blood Count 4.13 M/UL (4.70-6.10) L Hemoglobin 13.0 G/DL (14.2-18.0) L Hematocrit 38.4 % (42.0-52.0) L Mean Corpuscular Volume 93 FL (80-99) Mean Corpuscular Hemoglobin 31.4 PG (27.0-31.0) H Mean Corpuscular Hemoglobin Concent 33.9 G/DL (32.0-36.0) Red Cell Distribution Width 13.2 % (11.6-14.8) Platelet Count 374 K/UL (150-450) Mean Platelet Volume 4.8 FL (6.5-10.1) L Neutrophils (%) (Auto) % (45.0-75.0) Lymphocytes (%) (Auto) % (20.0-45.0) Monocytes (%) (Auto) % (1.0-10.0) Eosinophils (%) (Auto) % (0.0-3.0) Basophils (%) (Auto) % (0.0-2.0) Sodium Level 147 MMOL/L (136-145) H Potassium Level 3.8 MMOL/L (3.5-5.1) Chloride Level 108 MMOL/L (98-107) H Carbon Dioxide Level 29 MMOL/L (21-32) Anion Gap 10 mmol/L (5-15) Blood Urea Nitrogen 28 mg/dL (7-18) H Creatinine 0.7 MG/DL (0.55-1.30) Estimat Glomerular Filtration Rate > 60 mL/min (>60) Glucose Level 152 MG/DL (74-106) H Calcium Level 8.8 MG/DL (8.5-10.1) Total Bilirubin 0.6 MG/DL (0.2-1.0) Aspartate Amino Transf (AST/SGOT) 42 U/L (15-37) H Alanine Aminotransferase (ALT/SGPT) 50 U/L (12-78) Alkaline Phosphatase 101 U/L (46-116) Pro-B-Type Natriuretic Peptide 7176 pg/mL (0-125) H Total Protein 5.8 G/DL (6.4-8.2) L Albumin 2.3 G/DL (3.4-5.0) L Globulin 3.5 g/dL Albumin/Globulin Ratio 0.7 (1.0-2.7) L Arterial Blood pH 7.225 (7.350-7.450) 7.416 (7.350-7.450) Arterial Blood Partial Pressure CO2 95.5 mmHg (35.0-45.0) *H 53.3 mmHg (35.0-45.0) H Arterial Blood Partial Pressure O2 91.0 mmHg (75.0-100.0) 436.2 mmHg (75.0-100.0) H Arterial Blood HCO3 38.6 mmol/L (22.0-26.0) H 33.5 mmol/L (22.0-26.0) H Arterial Blood Oxygen Saturation 95.0 % (95-100) 99.4 % (95-100) Arterial Blood Base Excess 7.3 (-2-2) H 7.6 (-2-2) H Joe Test Positive Positive Plan Problems: (1) Nosocomial pneumonia (2) AUREA (acute kidney injury) (3) Cardiomyopathy (4) Obesity (BMI 30.0-34.9) (5) DMII (diabetes mellitus, type 2) (6) Cardiac LV ejection fraction 40% (7) Pulmonary edema (8) Cardiopulmonary arrest Assessment & Plan: Cardiopulmonary arrest septic requiring urgent emergency line placement for pressors and fluids and meds Please see procedure report Full examination performed no other surgical issues found at this time etiology unknown likely surgical in nature Antibiotics fluids Pressors Vent weaning trials right groin site okay. no hematoma. no bleeding left arm picc okay NG tube is present in good position. A partial left lateral decubitus view of the abdomen performed as well as a supine view. The left lateral decubitus view is not adequate as the area of interest which would be the nondependent right side of the abdomen, which is the area of interest was not imaged and is beyond the field-of -view of the x-ray. Bowel gas pattern appears nonobstructive on the basis of the partial images obtained. off pressors labs reviewed cont tube feeds Unable to wean from ventilator. Labs noted ABG noted imaging reviewed cont weaning. if possible extubate otherwise will consider trach extubated improving monitor in ICU for now downgrade re-intubated on vent support on pressors wean pressors no family to consent for trach as will likely be needed vs comfort care / change of code status trach not emergency at this time will monitor * Interval removal of endotracheal tube. NG tube and left arm PICC line remain in place. * Apparent worsening of aeration with increasing hazy opacities in the bilateral lower lungs which may in part be related to artifact from patient positioning however layering bilateral pleural effusions and bilateral airspace disease not excluded. Follow-up recommended. (9) Respiratory failure (10) History of hypertension (11) COPD (chronic obstructive pulmonary disease) (12) CAD (coronary artery disease) (13) Atrial fibrillation (14) Dementia with behavioral disturbance (15) Upper respiratory infection (16) Acute respiratory failure (17) Dyspnea (18) UTI (urinary tract infection) Prosper Hummel Sep 01, 2019 13:13
--- NOTE | 2019-09-01 15:04 | Infectious Diseases Prog Note ---
Assessment/Plan Assessment/Plan ASSESSMENT: The patient is a 79-year-old male with: Leukocytosis; Sp Fever , sp Sepsis, Sp Pneumonia ( probable asp), Sp RX -08/28 CXR: Interval removal of endotracheal tube. NG tube and left arm PICC line remain in place. Apparent worsening of aeration with increasing hazy opacities in the bilateral lower lungs which may in part be related to artifact from patient positioning however layering bilateral pleural effusions and bilateral airspace disease not excluded. -08/13 Scx: MDR-ACB (Tygacil LANI: 4) - CXR: 1. Streaky opacities in the right lower lung may represent atelectasis versus scarring. Left basilar opacity may represent atelectasis. Component of pneumonia is not excluded. Pulmonary vasculature congestion. -08/01 ucx NTD - sp cx: nl anastacio Urinary tract infection, SP Rx 08/31 SP rapid response and reintubation 08/17 Sp code blue and intubation , extubated 08/27 07/31 Sp Code blue and intubation , sp extubation 08/12 , Hyperlipidemia. COPD. History of GERD. History of encephalopathy. History of CAD/CO. History of cardiomyopathy. Hypertension. PLAN: Continue to monitor off abx -08/28 SP Colistin INH (MDR-ACB) # 14 - 08/22/19 SP Merrem 10 - 08/14 SP IV Vanco # 4 -3 SP Zosyn and IV Vanco # 7/7 , -08/01 SP Rocephin day # 10 - 07/31 sp sp Dox # 6 Monitor CBC. Monitor BMP. Monitor chest x-ray cont ICU Support ANGELLA RN Subjective Allergies: Coded Allergies: No Known Allergies (Unverified , 06/03/17) Subjective Afebrile. rapid response for desaturation. Reintubated. No leukocytosis. Levohed @4 Fio2 35% Objective Vital Signs Last 24 Hour Vital Signs Date Time Temp Pulse Resp B/P (MAP) Pulse Ox O2 Delivery O2 Flow Rate FiO2 09/01/19 14:45 74 14 35 09/01/19 14:36 97 Mechanical Ventilator 35 09/01/19 14:00 114/50 09/01/19 14:00 76 14 114/50 (71) 98 09/01/19 13:30 74 14 108/49 (68) 99 09/01/19 13:15 72 14 107/50 (69) 98 09/01/19 13:00 75 14 95/43 (60) 98 09/01/19 13:00 75 14 95/43 (60) 98 09/01/19 13:00 107/50 09/01/19 12:50 35 09/01/19 12:49 68 14 35 09/01/19 12:45 69 14 87/43 (58) 100 09/01/19 12:30 66 14 87/43 (58) 100 09/01/19 12:08 69/44 09/01/19 12:00 100 09/01/19 12:00 69 14 69/44 (52) 100 09/01/19 11:08 72 15 100 09/01/19 11:07 72 14 100 Mechanical Ventilator 100 09/01/19 11:00 97.5 72 15 68/39 (49) 100 09/01/19 10:46 74 14 71/39 (50) 100 09/01/19 10:30 75 13 72/37 (49) 100 09/01/19 10:15 78 15 70/45 (53) 100 09/01/19 10:00 75 14 100/47 (64) 100 09/01/19 09:36 100 09/01/19 09:30 82 14 98/61 (73) 100 09/01/19 09:00 97.4 91 12 84/56 (65) 100 09/01/19 08:46 84 09/01/19 08:30 Mechanical Ventilator Mechanical Ventilator Mechanical Ventilator 09/01/19 08:30 111 14 100 09/01/19 08:00 98.0 79 119/55 (76) 84 09/01/19 08:00 Bi-pap Bi-pap Bi-pap 09/01/19 07:51 87 09/01/19 07:16 93 Cool Aerosol 10.0 35 09/01/19 04:00 98.0 109 24 131/60 (83) 97 09/01/19 04:00 10.0 35 09/01/19 04:00 Venturi Mask 10.0 Venturi Mask 10.0 Venturi Mask 10.0 09/01/19 03:38 71 09/01/19 01:53 98 Cool Aerosol 10.0 35 09/01/19 00:54 110 155/74 09/01/19 00:00 97.9 110 22 150/65 (93) 97 08/31/19 23:31 109 08/31/19 22:51 166/70 08/31/19 20:00 Venturi Mask 10.0 Venturi Mask 10.0 Venturi Mask 10.0 08/31/19 20:00 10.0 35 08/31/19 20:00 98.5 110 22 166/70 (102) 95 08/31/19 19:34 105 08/31/19 18:45 99 Cool Aerosol 10.0 35 08/31/19 18:00 102 23 158/65 (96) 97 08/31/19 17:00 102 22 155/61 (92) 96 08/31/19 16:00 Venturi Mask 10.0 Venturi Mask 10.0 Venturi Mask 10.0 08/31/19 16:00 99.1 103 24 156/81 (106) 95 08/31/19 16:00 10.0 35 08/31/19 15:17 98 Height (Feet): 5 Height (Inches): 6.00 Weight (Pounds): 215 Objective Gen: NAD HEENT: ETT CV: RRR. no rubs Resp: RRR. equal chest rise. unlabored. coarse Abd: nondistended. no palpable masses Neuro: not following commands Laboratory Tests Test 09/01/19 03:40 09/01/19 04:00 09/01/19 11:00 White Blood Count 9.5 K/UL (4.8-10.8) Red Blood Count 4.13 M/UL (4.70-6.10) L Hemoglobin 13.0 G/DL (14.2-18.0) L Hematocrit 38.4 % (42.0-52.0) L Mean Corpuscular Volume 93 FL (80-99) Mean Corpuscular Hemoglobin 31.4 PG (27.0-31.0) H Mean Corpuscular Hemoglobin Concent 33.9 G/DL (32.0-36.0) Red Cell Distribution Width 13.2 % (11.6-14.8) Platelet Count 374 K/UL (150-450) Mean Platelet Volume 4.8 FL (6.5-10.1) L Neutrophils (%) (Auto) % (45.0-75.0) Lymphocytes (%) (Auto) % (20.0-45.0) Monocytes (%) (Auto) % (1.0-10.0) Eosinophils (%) (Auto) % (0.0-3.0) Basophils (%) (Auto) % (0.0-2.0) Sodium Level 147 MMOL/L (136-145) H Potassium Level 3.8 MMOL/L (3.5-5.1) Chloride Level 108 MMOL/L (98-107) H Carbon Dioxide Level 29 MMOL/L (21-32) Anion Gap 10 mmol/L (5-15) Blood Urea Nitrogen 28 mg/dL (7-18) H Creatinine 0.7 MG/DL (0.55-1.30) Estimat Glomerular Filtration Rate > 60 mL/min (>60) Glucose Level 152 MG/DL (74-106) H Calcium Level 8.8 MG/DL (8.5-10.1) Total Bilirubin 0.6 MG/DL (0.2-1.0) Aspartate Amino Transf (AST/SGOT) 42 U/L (15-37) H Alanine Aminotransferase (ALT/SGPT) 50 U/L (12-78) Alkaline Phosphatase 101 U/L (46-116) Pro-B-Type Natriuretic Peptide 7176 pg/mL (0-125) H Total Protein 5.8 G/DL (6.4-8.2) L Albumin 2.3 G/DL (3.4-5.0) L Globulin 3.5 g/dL Albumin/Globulin Ratio 0.7 (1.0-2.7) L Arterial Blood pH 7.225 (7.350-7.450) 7.416 (7.350-7.450) Arterial Blood Partial Pressure CO2 95.5 mmHg (35.0-45.0) *H 53.3 mmHg (35.0-45.0) H Arterial Blood Partial Pressure O2 91.0 mmHg (75.0-100.0) 436.2 mmHg (75.0-100.0) H Arterial Blood HCO3 38.6 mmol/L (22.0-26.0) H 33.5 mmol/L (22.0-26.0) H Arterial Blood Oxygen Saturation 95.0 % (95-100) 99.4 % (95-100) Arterial Blood Base Excess 7.3 (-2-2) H 7.6 (-2-2) H Joe Test Positive Positive Current Medications Medications (Trade) Dose Ordered Sig/Amaris Route PRN Reason Start Time Stop Time Status Last Admin Dose Admin Acetaminophen (Tylenol) 650 mg Q4H PRN NG Mild Pain/Temp > 100.5 09/01/19 10:20 10/01/19 10:19 Albuterol/ Ipratropium (Albuterol/ Ipratropium) 3 ml Q4H PRN HHN Shortness of Breath 09/01/19 10:20 09/06/19 10:19 Amiodarone HCl (Cordarone) 200 mg DAILY NG 09/01/19 10:22 11/30/19 10:21 09/01/19 10:37 Atorvastatin Calcium (Lipitor) 40 mg BEDTIME NG 09/01/19 21:00 09/13/19 20:59 Chlorhexidine Gluconate (Kamila-Hex 2%) 1 applic DAILY@2000 TOPIC 09/01/19 20:00 09/17/19 19:59 Clopidogrel Bisulfate (Plavix) 75 mg DAILY NG 09/01/19 10:22 10/01/19 10:21 09/01/19 10:31 Diltiazem HCl (Cardizem) 90 mg Q12HR NG 09/01/19 10:23 10/01/19 10:22 Heparin Sodium (Porcine) (Heparin 5000 units/ml) 5,000 units EVERY 12 HOURS SUBQ 09/01/19 10:23 10/16/19 10:22 09/01/19 10:30 Hydralazine HCl (Apresoline) 10 mg Q4H PRN IV For High Blood Pressure 09/01/19 10:20 11/30/19 10:19 Lorazepam (Ativan 2mg/ml 1ml) 2 mg Q4H PRN IV For Anxiety 09/01/19 10:20 09/08/19 10:19 Morphine Sulfate (Morphine Sulfate) 2 mg Q4H PRN IVP For Pain 09/01/19 10:21 09/08/19 10:20 Norepinephrine Bitartrate 4 mg/ Dextrose 250 ml @ 0 mls/hr Q24H IV 09/01/19 11:48 10/01/19 11:47 09/01/19 12:08 Olanzapine (ZyPREXA Zydis) 5 mg BEDTIME NG 09/01/19 21:00 10/05/19 20:59 Pantoprazole (Protonix) 40 mg EVERY 12 HOURS IVP 09/01/19 10:23 10/01/19 10:22 09/01/19 10:28 Rafy Page MD Sep 01, 2019 15:04
[2019-09-01] MEDS: Dyna-Hex 2% Top Sol 2oz TOPIC SCH (20:31)
[2019-09-01] MEDS: Atorvastatin 20mg tab NG SCH (20:32)
[2019-09-01] MEDS ORDERED: ZyPREXA Zydis 5mg tab NG SCH (21:00)
[2019-09-02] VITALS (37 sets, daily range): BP systolic 111–161; BP diastolic 36–96
--- NOTE | 2019-09-02 00:14 | Progress Note ---
DATE: 09/01/2019 SUBJECTIVE: This morning the patient went again into respiratory failure. A code was called and the patient had to be intubated again as he developed hypotension, respiratory failure, bradycardia, and cardiac arrest. Following intubation, he required Levophed 4 mcg/min to maintain stable hemodynamics. PHYSICAL EXAMINATION: VITAL SIGNS: Now his blood pressure 123/52, his pulse is 74, respirations 14, and temperature is 97.5. HEENT: Eyes were normal. ENT, mucous membranes were moist and intact. NECK: Supple with no JVD without lymph nodes. Tracheostomy site is clean. LUNGS: Clear without rhonchi, rales, or wheezing. HEART: Normal sounds with beat. There is no tachycardia at rest. Sinus rhythm on monitor. ABDOMEN: Soft and nontender with normal bowel sounds. EXTREMITIES: Warm without cyanosis, clubbing, or edema. LABORATORY AND DIAGNOSTIC DATA: Hemoglobin is 13.0, hematocrit 38.4 with MCV of 93, WBC of 9.5, and platelets is 374. His BUN and creatinine is 28 and 0.7 respectively. Sodium 147, potassium 3.8, chloride 108, CO2 is 29. His calcium is 8.8. SGOT, SGPT, and alkaline phosphatase are normal. His ProBNP is 7176. The patient received two doses of Lasix, one last night and one today. His albumin is 2.3 and his total protein is 5.8. Chest x-ray today revealed endotracheal tube and nasogastric tube in the right position, there is haziness in the left lung and pleural effusion. There is evidence of scar in the right lower lobe. Blood gases prior to intubation, pH was 7.22, pCO2 was 95, pO2 was 91, bicarbonate was 38, O2 sat was 95, and base excess was 7.3. Following intubation, pH 7.4, pCO2 was 63, pO2 was 436, bicarb was 33, and saturation was 99. IMPRESSION: The patient re-intubated now time. He definitely will need tracheostomy now. creative consultant will be called to assist in the management of this case. Modesta Mulligan M.D. DR: Sravani JOB#: [id number] CC:
[2019-09-02] MEDS ORDERED: HydrALAZINE 25mg tab NG PRN (01:45)
--- NOTE | 2019-09-02 02:30 | Progress Note ---
DATE: 09/01/2019 CARDIOLOGY PROGRESS NOTE SUBJECTIVE: The patient is back on ventilator support following re-intubation. OBJECTIVE: VITAL SIGNS: Blood pressure 119/55, pulse 79, respirations 14, afebrile. Monitored rhythm sinus and sinus tachycardia with episodes of atrial fibrillation. LUNGS: Bilateral breath sounds. Rhonchi. CARDIAC: Irregularly irregular rhythm. Normal S1 and S2. ABDOMEN: Soft. EXTREMITIES: Trace edema. LABORATORY DATA: Chest x-ray reveals small left pleural effusion with atelectasis. White count 9.5 and hemoglobin 13. Sodium 147, potassium 3.8, bicarbonate 29, BUN 28, and creatinine 0.7. ABG prior to intubation 7.22, 95, 91. IMPRESSION: 1. Acute on chronic respiratory acidosis. 2. Recurring respiratory failure. 3. Severe chronic obstructive pulmonary disease. 4. Ischemic cardiomyopathy, status post cardiopulmonary arrest. 5. Paroxysmal atrial fibrillation. 6. Acute on chronic systolic and diastolic congestive heart failure. 7. Dehydration. 8. Hypernatremia. PLAN: 1. Will need trach. 2. Cannot remain on endotracheal tube indefinitely due to risk of infection and abscess. 3. Continue hypotonic IV fluids. 4. Hold diuretics. 5. Maintain amiodarone for arrhythmia suppression. Saeed Sim M.D. DR: MARCIA JOB#: [id number] CC:
--- NOTE | 2019-09-02 08:47 | Infectious Diseases Prog Note ---
Assessment/Plan Assessment/Plan ASSESSMENT: The patient is a 79-year-old male with: Multiple reintubations, likely cannot maintain airway 08/31 CXR: There is a hazy opacity at the left lung base again noted unchanged. Mild linear densities are seen in the right midlung which may be atelectasis or scarring. Leukocytosis; Sp Fever , sp Sepsis, Sp Pneumonia ( probable asp), Sp RX -08/28 CXR: Interval removal of endotracheal tube. NG tube and left arm PICC line remain in place. Apparent worsening of aeration with increasing hazy opacities in the bilateral lower lungs which may in part be related to artifact from patient positioning however layering bilateral pleural effusions and bilateral airspace disease not excluded. -08/13 Scx: MDR-ACB (Tygacil LANI: 4) - CXR: 1. Streaky opacities in the right lower lung may represent atelectasis versus scarring. Left basilar opacity may represent atelectasis. Component of pneumonia is not excluded. Pulmonary vasculature congestion. -08/01 ucx NTD - sp cx: nl anastacio Urinary tract infection, SP Rx 08/31 SP rapid response and reintubation 08/17 Sp code blue and intubation , extubated 08/27 07/31 Sp Code blue and intubation , sp extubation 08/12 , Hyperlipidemia. COPD. History of GERD. History of encephalopathy. History of CAD/AL. History of cardiomyopathy. Hypertension. PLAN: Continue to monitor off abx -08/28 SP Colistin INH (MDR-ACB) # 14 - 08/22/19 SP Merrem 10 - 08/14 SP IV Vanco # 4 -08/07 SP Zosyn and IV Vanco # 7/7 , -08/01 SP Rocephin day # 10 - 07/31 sp sp Dox # 6 Monitor CBC. Monitor BMP. Monitor chest x-ray cont ICU Support DW RN Subjective Allergies: Coded Allergies: No Known Allergies (Unverified , 06/03/17) Subjective Afebrile. SP reintubation yesterday FiO2 35% minimal secretion no pressors Objective Vital Signs Last 24 Hour Vital Signs Date Time Temp Pulse Resp B/P (MAP) Pulse Ox O2 Delivery O2 Flow Rate FiO2 09/02/19 07:12 100 21 35 09/02/19 07:00 101 23 136/90 (105) 93 09/02/19 06:30 125/76 09/02/19 06:30 97 18 125/76 (92) 94 09/02/19 06:00 138/60 09/02/19 06:00 95 18 138/60 (86) 94 09/02/19 05:30 84 18 141/69 (93) 92 09/02/19 05:22 86 15 35 09/02/19 05:00 90 18 132/62 (85) 91 09/02/19 05:00 132/62 09/02/19 04:45 92 15 148/96 (113) 96 09/02/19 04:30 89 15 140/61 (87) 97 09/02/19 04:15 93 15 130/57 (81) 93 09/02/19 04:00 99.1 89 19 139/62 (87) 92 09/02/19 04:00 Mechanical Ventilator Mechanical Ventilator 09/02/19 04:00 94 09/02/19 04:00 139/62 09/02/19 04:00 35 09/02/19 03:38 93 17 35 09/02/19 03:30 92 19 129/62 (84) 92 09/02/19 03:00 141/60 09/02/19 03:00 88 14 141/60 (87) 98 09/02/19 02:30 94 23 130/52 (78) 94 09/02/19 02:00 83 18 128/56 (80) 93 09/02/19 02:00 128/56 09/02/19 01:34 87 15 35 09/02/19 01:30 81 17 122/36 (64) 92 09/02/19 01:00 92 24 149/61 (90) 95 09/02/19 01:00 149/61 09/02/19 00:45 84 17 130/52 (78) 96 09/02/19 00:30 80 14 132/53 (79) 97 09/02/19 00:15 80 17 117/46 (69) 93 09/02/19 00:00 Mechanical Ventilator Mechanical Ventilator 09/02/19 00:00 35 09/02/19 00:00 130/46 09/02/19 00:00 99.4 80 18 111/49 (69) 95 09/02/19 00:00 78 09/01/19 23:52 85 17 35 09/01/19 23:30 76 19 138/56 (83) 95 09/01/19 23:00 125/44 09/01/19 23:00 67 14 125/44 (71) 97 09/01/19 22:30 68 17 115/50 (71) 97 09/01/19 22:00 65 16 105/45 (65) 96 09/01/19 21:44 66 15 35 09/01/19 21:30 66 16 105/41 (62) 95 09/01/19 21:00 119/43 09/01/19 21:00 70 14 119/43 (68) 97 09/01/19 20:31 75 116/48 09/01/19 20:30 76 15 120/48 (72) 97 09/01/19 20:00 Mechanical Ventilator Mechanical Ventilator 09/01/19 20:00 99.2 76 14 125/53 (77) 97 09/01/19 20:00 76 09/01/19 20:00 125/53 09/01/19 20:00 35 09/01/19 19:48 75 14 35 09/01/19 19:30 75 14 139/49 (79) 99 09/01/19 19:00 122/49 09/01/19 19:00 78 15 122/49 (73) 97 09/01/19 18:30 75 15 108/49 (68) 98 09/01/19 18:00 123/76 09/01/19 18:00 82 16 123/76 (92) 98 09/01/19 17:30 76 14 113/54 (73) 98 09/01/19 17:00 76 14 127/46 (73) 98 09/01/19 17:00 127/46 09/01/19 16:33 73 14 35 09/01/19 16:30 74 14 132/52 (78) 98 09/01/19 16:00 98.2 75 14 117/49 (71) 98 09/01/19 16:00 117/49 09/01/19 16:00 Mechanical Ventilator Mechanical Ventilator 09/01/19 15:30 77 15 123/52 (75) 98 09/01/19 15:00 74 14 132/57 (82) 97 09/01/19 15:00 131/55 09/01/19 14:45 74 14 35 09/01/19 14:36 97 Mechanical Ventilator 35 09/01/19 14:30 74 14 110/50 (70) 98 09/01/19 14:00 114/50 09/01/19 14:00 76 14 114/50 (71) 98 09/01/19 13:30 74 14 108/49 (68) 99 09/01/19 13:15 72 14 107/50 (69) 98 09/01/19 13:00 75 14 95/43 (60) 98 09/01/19 13:00 75 14 95/43 (60) 98 09/01/19 13:00 107/50 09/01/19 12:50 35 09/01/19 12:49 68 14 35 09/01/19 12:45 69 14 87/43 (58) 100 09/01/19 12:30 66 14 87/43 (58) 100 09/01/19 12:11 68 09/01/19 12:08 69/44 09/01/19 12:00 Mechanical Ventilator Mechanical Ventilator 09/01/19 12:00 100 09/01/19 12:00 69 14 69/44 (52) 100 09/01/19 11:08 72 15 100 09/01/19 11:07 72 14 100 Mechanical Ventilator 100 09/01/19 11:00 97.5 72 15 68/39 (49) 100 09/01/19 10:46 74 14 71/39 (50) 100 09/01/19 10:30 75 13 72/37 (49) 100 09/01/19 10:15 78 15 70/45 (53) 100 09/01/19 10:00 75 14 100/47 (64) 100 09/01/19 09:36 100 09/01/19 09:30 82 14 98/61 (73) 100 09/01/19 09:00 97.4 91 12 84/56 (65) 100 09/01/19 08:46 84 Height (Feet): 5 Height (Inches): 6.00 Weight (Pounds): 213 Objective Gen: NAD HEENT: ETT CV: RRR. no rubs Resp: RRR. equal chest rise. unlabored. coarse Abd: nondistended. no palpable masses Neuro: not following commands Laboratory Tests Test 09/01/19 11:00 Arterial Blood pH 7.416 (7.350-7.450) Arterial Blood Partial Pressure CO2 53.3 mmHg (35.0-45.0) H Arterial Blood Partial Pressure O2 436.2 mmHg (75.0-100.0) H Arterial Blood HCO3 33.5 mmol/L (22.0-26.0) H Arterial Blood Oxygen Saturation 99.4 % (95-100) Arterial Blood Base Excess 7.6 (-2-2) H Joe Test Positive Current Medications Medications (Trade) Dose Ordered Sig/Amaris Route PRN Reason Start Time Stop Time Status Last Admin Dose Admin Acetaminophen (Tylenol) 650 mg Q4H PRN NG Mild Pain/Temp > 100.5 09/01/19 10:20 10/01/19 10:19 Albuterol/ Ipratropium (Albuterol/ Ipratropium) 3 ml Q4H PRN HHN Shortness of Breath 09/01/19 10:20 09/06/19 10:19 Amiodarone HCl (Cordarone) 200 mg DAILY NG 09/01/19 10:22 11/30/19 10:21 09/01/19 10:37 Atorvastatin Calcium (Lipitor) 40 mg BEDTIME NG 09/01/19 21:00 09/13/19 20:59 09/01/19 20:32 Chlorhexidine Gluconate (Kamila-Hex 2%) 1 applic DAILY@1999 TOPIC 09/01/19 20:00 09/17/19 19:59 09/01/19 20:31 Clopidogrel Bisulfate (Plavix) 75 mg DAILY NG 09/01/19 10:22 10/01/19 10:21 09/01/19 10:31 Heparin Sodium (Porcine) (Heparin 5000 units/ml) 5,000 units EVERY 12 HOURS SUBQ 09/01/19 10:23 10/16/19 10:22 09/01/19 20:33 Hydralazine HCl (Apresoline) 25 mg Q6HR PRN NG SBP above 160 09/02/19 01:45 12/01/19 01:44 Lorazepam (Ativan 2mg/ml 1ml) 2 mg Q4H PRN IV For Anxiety 09/01/19 10:20 09/08/19 10:19 09/02/19 03:18 Morphine Sulfate (Morphine Sulfate) 2 mg Q4H PRN IVP For Pain 09/01/19 10:21 09/08/19 10:20 Norepinephrine Bitartrate 4 mg/ Dextrose 250 ml @ 0 mls/hr Q24H IV 09/01/19 11:48 10/01/19 11:47 09/01/19 12:08 Pantoprazole (Protonix) 40 mg EVERY 12 HOURS IVP 09/01/19 10:23 10/01/19 10:22 09/01/19 20:31 Rafy Page MD Sep 02, 2019 08:47
[2019-09-02] MEDS: Pantoprazole Inj IVP SCH ×2 (09:14→21:00)
[2019-09-02] MEDS: Heparin 5000 units/ml inj SUBQ SCH ×2 (09:14→21:00)
[2019-09-02] MEDS: Amiodarone 200mg tab NG SCH (09:14)
--- NOTE | 2019-09-02 09:58 | Pulmonolgy Critical Care Note ---
Critical Care - Asmt/Plan Problems: (1) Acute respiratory failure Assessment & Plan: got reintubated (2) Cardiac LV ejection fraction 40% (3) Cardiopulmonary arrest (4) Nosocomial pneumonia (5) Atrial fibrillation Assessment & Plan: controlled (6) Pulmonary edema (7) COPD (chronic obstructive pulmonary disease) (8) CAD (coronary artery disease) (9) Dementia with behavioral disturbance Respiratory: monitor respiratory rate, adjust FIO2, CXR, weaning trial Cardiac: continue pressors Renal: F/U I&O, keep IV fluid Infectious Disease: check cultures Gastrointestinal: continue feedings/current rate Endocrine: monitor blood sugar Hematologic: monitor H/H Neurologic: PRN Morphine Prophylaxis: Protonix, Heparin Notes Reviewed: campus dean, 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, consultants, 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 case 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 system 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 - Objective Last 24 Hour Vital Signs Date Time Temp Pulse Resp B/P (MAP) Pulse Ox O2 Delivery O2 Flow Rate FiO2 09/02/19 09:00 90 17 134/61 (85) 93 09/02/19 08:46 87 17 35 09/02/19 08:00 97 20 137/79 (98) 94 09/02/19 07:30 99.5 102 20 134/60 (84) 97 09/02/19 07:12 100 21 35 09/02/19 07:00 101 23 136/90 (105) 93 09/02/19 06:30 125/76 09/02/19 06:30 97 18 125/76 (92) 94 09/02/19 06:00 138/60 09/02/19 06:00 95 18 138/60 (86) 94 09/02/19 05:30 84 18 141/69 (93) 92 09/02/19 05:22 86 15 35 09/02/19 05:00 90 18 132/62 (85) 91 09/02/19 05:00 132/62 09/02/19 04:45 92 15 148/96 (113) 96 09/02/19 04:30 89 15 140/61 (87) 97 09/02/19 04:15 93 15 130/57 (81) 93 09/02/19 04:00 99.1 89 19 139/62 (87) 92 09/02/19 04:00 Mechanical Ventilator Mechanical Ventilator 09/02/19 04:00 94 09/02/19 04:00 139/62 09/02/19 04:00 35 09/02/19 03:38 93 17 35 09/02/19 03:30 92 19 129/62 (84) 92 09/02/19 03:00 141/60 09/02/19 03:00 88 14 141/60 (87) 98 09/02/19 02:30 94 23 130/52 (78) 94 09/02/19 02:00 83 18 128/56 (80) 93 09/02/19 02:00 128/56 09/02/19 01:34 87 15 35 09/02/19 01:30 81 17 122/36 (64) 92 09/02/19 01:00 92 24 149/61 (90) 95 09/02/19 01:00 149/61 09/02/19 00:45 84 17 130/52 (78) 96 09/02/19 00:30 80 14 132/53 (79) 97 09/02/19 00:15 80 17 117/46 (69) 93 09/02/19 00:00 Mechanical Ventilator Mechanical Ventilator 09/02/19 00:00 35 09/02/19 00:00 130/46 09/02/19 00:00 99.4 80 18 111/49 (69) 95 09/02/19 00:00 78 09/01/19 23:52 85 17 35 09/01/19 23:30 76 19 138/56 (83) 95 09/01/19 23:00 125/44 09/01/19 23:00 67 14 125/44 (71) 97 09/01/19 22:30 68 17 115/50 (71) 97 09/01/19 22:00 65 16 105/45 (65) 96 09/01/19 21:44 66 15 35 09/01/19 21:30 66 16 105/41 (62) 95 09/01/19 21:00 119/43 09/01/19 21:00 70 14 119/43 (68) 97 09/01/19 20:31 75 116/48 09/01/19 20:30 76 15 120/48 (72) 97 09/01/19 20:00 Mechanical Ventilator Mechanical Ventilator 09/01/19 20:00 99.2 76 14 125/53 (77) 97 09/01/19 20:00 76 3/30/20 20:00 125/53 09/01/19 20:00 35 09/01/19 19:48 75 14 35 09/01/19 19:30 75 14 139/49 (79) 99 09/01/19 19:00 122/49 09/01/19 19:00 78 15 122/49 (73) 97 09/01/19 18:30 75 15 108/49 (68) 98 09/01/19 18:00 123/76 09/01/19 18:00 82 16 123/76 (92) 98 09/01/19 17:30 76 14 113/54 (73) 98 09/01/19 17:00 76 14 127/46 (73) 98 09/01/19 17:00 127/46 09/01/19 16:33 73 14 35 09/01/19 16:30 74 14 132/52 (78) 98 09/01/19 16:00 98.2 75 14 117/49 (71) 98 09/01/19 16:00 117/49 09/01/19 16:00 Mechanical Ventilator Mechanical Ventilator 09/01/19 15:30 77 15 123/52 (75) 98 09/01/19 15:00 74 14 132/57 (82) 97 09/01/19 15:00 131/55 09/01/19 14:45 74 14 35 09/01/19 14:36 97 Mechanical Ventilator 35 09/01/19 14:30 74 14 110/50 (70) 98 09/01/19 14:00 114/50 09/01/19 14:00 76 14 114/50 (71) 98 09/01/19 13:30 74 14 108/49 (68) 99 09/01/19 13:15 72 14 107/50 (69) 98 09/01/19 13:00 75 14 95/43 (60) 98 09/01/19 13:00 75 14 95/43 (60) 98 09/01/19 13:00 107/50 09/01/19 12:50 35 09/01/19 12:49 68 14 35 09/01/19 12:45 69 14 87/43 (58) 100 09/01/19 12:30 66 14 87/43 (58) 100 09/01/19 12:11 68 09/01/19 12:08 69/44 09/01/19 12:00 Mechanical Ventilator Mechanical Ventilator 09/01/19 12:00 100 09/01/19 12:00 69 14 69/44 (52) 100 09/01/19 11:08 72 15 100 09/01/19 11:07 72 14 100 Mechanical Ventilator 100 09/01/19 11:00 97.5 72 15 68/39 (49) 100 09/01/19 10:46 74 14 71/39 (50) 100 09/01/19 10:30 75 13 72/37 (49) 100 09/01/19 10:15 78 15 70/45 (53) 100 09/01/19 10:00 75 14 100/47 (64) 100 Status: sedated Condition: critical Neck: full ROM Heart: HR/BP stable Abdomen: soft, active bowel sounds Extremities: no C/C/E Accucheck: 150 Critical Care - Subjective ROS Limited/Unobtainable: Yes Condition: critical EKG Rhythm: Sinus Rhythm FI02: 35 Vent Support Breath Rate: 14 Vent Support Mode: AC Vent Tidal Volume: 500 Sputum Amount: Small PEEP: 5.0 PIP: 24 Tube Feeding Amount: 25 I&O: Intake and Output 09/01/19 09/02/19 19:00 07:00 Intake Total 45.5 ml 112.625 ml Output Total 90 ml 105 ml Balance -44.5 ml 7.625 ml IV Total 45.5 ml 62.625 ml Tube Feeding 50 ml Output Urine Total 90 ml 105 ml ET-Tube: 7.5 ET Position: 23 Labs: Laboratory Tests Test 09/01/19 11:00 Arterial Blood pH 7.416 (7.350-7.450) Arterial Blood Partial Pressure CO2 53.3 mmHg (35.0-45.0) H Arterial Blood Partial Pressure O2 436.2 mmHg (75.0-100.0) H Arterial Blood HCO3 33.5 mmol/L (22.0-26.0) H Arterial Blood Oxygen Saturation 99.4 % (95-100) Arterial Blood Base Excess 7.6 (-2-2) H Joe Test Positive Nicole Graves MD Sep 02, 2019 09:58
--- NOTE | 2019-09-02 10:30 | Nephrology Progress Note ---
Assessment/Plan Problem List: (1) AUREA (acute kidney injury) Assessment: Serum creatinine rising (2) Cardiopulmonary arrest (3) Respiratory failure (4) Cardiomyopathy (5) Obesity (BMI 30.0-34.9) (6) DMII (diabetes mellitus, type 2) Assessment Acute Renal Failure : AUREA Most likely due to cardiorespiratory arrest and episode of hypotension. Patient also has cardiomyopathy with Ej Fx of 40 % on admission Obese : BMI 34.4 ? DM Other Dx (1) Cardiopulmonary arrest (2) Nosocomial pneumonia (3) Acute respiratory failure (4) COPD (chronic obstructive pulmonary disease) (5) Atrial fibrillation (6) Dementia with behavioral disturbance (7) CAD (coronary artery disease) Plan Patient is now reintubated and back in ICU Today's labs reviewed D5 W IV fluids for hypernatremia as needed pressors are off now patient's condition somewhat more stable In ICU He is intubated ventilator, weaning is being tried His blood pressure is more stable Overall he is still doing poorly Adjust blood pressure medications Stress dose of steroids which we will start tapering today Previously Monitor renal parameters. Serum creatinine improved Monitor urine output. Urine output improved. Avoid nephrotoxics. Weaning as possible. Remains intubated at this time. Correct electrolyte imbalances. Change tube feeding to Glucerna. Subjective ROS Limited/Unobtainable: Yes Objective Objective Last 24 Hour Vital Signs Date Time Temp Pulse Resp B/P (MAP) Pulse Ox O2 Delivery O2 Flow Rate FiO2 09/02/19 09:00 90 17 134/61 (85) 93 09/02/19 08:46 87 17 35 09/02/19 08:00 97 20 137/79 (98) 94 09/02/19 07:30 99.5 102 20 134/60 (84) 97 09/02/19 07:12 100 21 35 09/02/19 07:00 101 23 136/90 (105) 93 09/02/19 06:30 125/76 09/02/19 06:30 97 18 125/76 (92) 94 09/02/19 06:00 138/60 09/02/19 06:00 95 18 138/60 (86) 94 09/02/19 05:30 84 18 141/69 (93) 92 09/02/19 05:22 86 15 35 09/02/19 05:00 90 18 132/62 (85) 91 09/02/19 05:00 132/62 09/02/19 04:45 92 15 148/96 (113) 96 09/02/19 04:30 89 15 140/61 (87) 97 09/02/19 04:15 93 15 130/57 (81) 93 09/02/19 04:00 99.1 89 19 139/62 (87) 92 09/02/19 04:00 Mechanical Ventilator Mechanical Ventilator 09/02/19 04:00 94 09/02/19 04:00 139/62 09/02/19 04:00 35 09/02/19 03:38 93 17 35 09/02/19 03:30 92 19 129/62 (84) 92 09/02/19 03:00 141/60 09/02/19 03:00 88 14 141/60 (87) 98 09/02/19 02:30 94 23 130/52 (78) 94 09/02/19 02:00 83 18 128/56 (80) 93 09/02/19 02:00 128/56 09/02/19 01:34 87 15 35 09/02/19 01:30 81 17 122/36 (64) 92 09/02/19 01:00 92 24 149/61 (90) 95 09/02/19 01:00 149/61 09/02/19 00:45 84 17 130/52 (78) 96 09/02/19 00:30 80 14 132/53 (79) 97 09/02/19 00:15 80 17 117/46 (69) 93 09/02/19 00:00 Mechanical Ventilator Mechanical Ventilator 09/02/19 00:00 35 09/02/19 00:00 130/46 09/02/19 00:00 99.4 80 18 111/49 (69) 95 09/02/19 00:00 78 09/01/19 23:52 85 17 35 09/01/19 23:30 76 19 138/56 (83) 95 09/01/19 23:00 125/44 09/01/19 23:00 67 14 125/44 (71) 97 09/01/19 22:30 68 17 115/50 (71) 97 09/01/19 22:00 65 16 105/45 (65) 96 09/01/19 21:44 66 15 35 09/01/19 21:30 66 16 105/41 (62) 95 09/01/19 21:00 119/43 09/01/19 21:00 70 14 119/43 (68) 97 09/01/19 20:31 75 116/48 09/01/19 20:30 76 15 120/48 (72) 97 09/01/19 20:00 Mechanical Ventilator Mechanical Ventilator 09/01/19 20:00 99.2 76 14 125/53 (77) 97 09/01/19 20:00 76 09/01/19 20:00 125/53 09/01/19 20:00 35 09/01/19 19:48 75 14 35 09/01/19 19:30 75 14 139/49 (79) 99 09/01/19 19:00 122/49 09/01/19 19:00 78 15 122/49 (73) 97 09/01/19 18:30 75 15 108/49 (68) 98 09/01/19 18:00 123/76 09/01/19 18:00 82 16 123/76 (92) 98 09/01/19 17:30 76 14 113/54 (73) 98 09/01/19 17:00 76 14 127/46 (73) 98 09/01/19 17:00 127/46 09/01/19 16:33 73 14 35 09/01/19 16:30 74 14 132/52 (78) 98 09/01/19 16:00 98.2 75 14 117/49 (71) 98 09/01/19 16:00 117/49 09/01/19 16:00 Mechanical Ventilator Mechanical Ventilator 09/01/19 15:30 77 15 123/52 (75) 98 09/01/19 15:00 74 14 132/57 (82) 97 09/01/19 15:00 131/55 09/01/19 14:45 74 14 35 09/01/19 14:36 97 Mechanical Ventilator 35 09/01/19 14:30 74 14 110/50 (70) 98 09/01/19 14:00 114/50 09/01/19 14:00 76 14 114/50 (71) 98 09/01/19 13:30 74 14 108/49 (68) 99 09/01/19 13:15 72 14 107/50 (69) 98 09/01/19 13:00 75 14 95/43 (60) 98 3/30/20 13:00 75 14 95/43 (60) 98 09/01/19 13:00 107/50 09/01/19 12:50 35 09/01/19 12:49 68 14 35 09/01/19 12:45 69 14 87/43 (58) 100 09/01/19 12:30 66 14 87/43 (58) 100 09/01/19 12:11 68 09/01/19 12:08 69/44 09/01/19 12:00 Mechanical Ventilator Mechanical Ventilator 09/01/19 12:00 100 09/01/19 12:00 69 14 69/44 (52) 100 09/01/19 11:08 72 15 100 09/01/19 11:07 72 14 100 Mechanical Ventilator 100 09/01/19 11:00 97.5 72 15 68/39 (49) 100 09/01/19 10:46 74 14 71/39 (50) 100 09/01/19 10:30 75 13 72/37 (49) 100 Intake and Output 09/01/19 09/02/19 19:00 07:00 Intake Total 45.5 ml 112.625 ml Output Total 90 ml 105 ml Balance -44.5 ml 7.625 ml IV Total 45.5 ml 62.625 ml Tube Feeding 50 ml Output Urine Total 90 ml 105 ml Laboratory Tests 09/01/19 11:00: Arterial Blood pH 7.416, Arterial Blood Partial Pressure CO2 53.3H, Arterial Blood Partial Pressure O2 436.2H, Arterial Blood HCO3 33.5H, Arterial Blood Oxygen Saturation 99.4, Arterial Blood Base Excess 7.6H, Joe Test Positive Height (Feet): 5 Height (Inches): 6.00 Weight (Pounds): 213 General Appearance: no apparent distress EENT: other - Intubated and vented Cardiovascular: tachycardia Respiratory/Chest: decreased breath sounds Abdomen: distended Objective no change Yunior Sexton MD Sep 02, 2019 10:30
--- NOTE | 2019-09-02 17:09 | Surgery Progress Note ---
Surgery Progress Note Subjective Additional Comments ill appearing does open eyes and some movements Objective Last 24 Hour Vital Signs Date Time Temp Pulse Resp B/P (MAP) Pulse Ox O2 Delivery O2 Flow Rate FiO2 09/02/19 16:00 Mechanical Ventilator Mechanical Ventilator Mechanical Ventilator 09/02/19 16:00 90 09/02/19 16:00 35 09/02/19 16:00 86 17 155/58 (90) 96 09/02/19 15:11 87 20 35 09/02/19 15:00 99.3 83 17 161/58 (92) 98 09/02/19 14:00 83 18 139/63 (88) 95 09/02/19 13:00 92 18 156/67 (96) 93 09/02/19 12:37 88 21 35 09/02/19 12:00 94 17 156/64 (94) 95 09/02/19 12:00 Mechanical Ventilator Mechanical Ventilator Mechanical Ventilator 09/02/19 12:00 35 09/02/19 11:02 97 09/02/19 11:00 95 17 154/65 (94) 94 09/02/19 10:51 90 21 35 09/02/19 10:00 89 17 145/83 (103) 96 09/02/19 09:00 90 17 134/61 (85) 93 09/02/19 08:46 87 17 35 09/02/19 08:00 Mechanical Ventilator Mechanical Ventilator Mechanical Ventilator 09/02/19 08:00 93 09/02/19 08:00 35 09/02/19 08:00 97 20 137/79 (98) 94 09/02/19 07:30 99.5 102 20 134/60 (84) 97 09/02/19 07:12 100 21 35 09/02/19 07:00 101 23 136/90 (105) 93 09/02/19 06:30 125/76 09/02/19 06:30 97 18 125/76 (92) 94 09/02/19 06:00 138/60 09/02/19 06:00 95 18 138/60 (86) 94 09/02/19 05:30 84 18 141/69 (93) 92 09/02/19 05:22 86 15 35 09/02/19 05:00 90 18 132/62 (85) 91 09/02/19 05:00 132/62 3/31/20 04:45 92 15 148/96 (113) 96 09/02/19 04:30 89 15 140/61 (87) 97 09/02/19 04:15 93 15 130/57 (81) 93 09/02/19 04:00 99.1 89 19 139/62 (87) 92 09/02/19 04:00 Mechanical Ventilator Mechanical Ventilator 09/02/19 04:00 94 09/02/19 04:00 139/62 09/02/19 04:00 35 09/02/19 03:38 93 17 35 09/02/19 03:30 92 19 129/62 (84) 92 09/02/19 03:00 141/60 09/02/19 03:00 88 14 141/60 (87) 98 09/02/19 02:30 94 23 130/52 (78) 94 09/02/19 02:00 83 18 128/56 (80) 93 09/02/19 02:00 128/56 09/02/19 01:34 87 15 35 09/02/19 01:30 81 17 122/36 (64) 92 09/02/19 01:00 92 24 149/61 (90) 95 09/02/19 01:00 149/61 09/02/19 00:45 84 17 130/52 (78) 96 09/02/19 00:30 80 14 132/53 (79) 97 09/02/19 00:15 80 17 117/46 (69) 93 09/02/19 00:00 Mechanical Ventilator Mechanical Ventilator 09/02/19 00:00 35 09/02/19 00:00 130/46 09/02/19 00:00 99.4 80 18 111/49 (69) 95 09/02/19 00:00 78 09/01/19 23:52 85 17 35 09/01/19 23:30 76 19 138/56 (83) 95 09/01/19 23:00 125/44 09/01/19 23:00 67 14 125/44 (71) 97 09/01/19 22:30 68 17 115/50 (71) 97 09/01/19 22:00 65 16 105/45 (65) 96 09/01/19 21:44 66 15 35 09/01/19 21:30 66 16 105/41 (62) 95 09/01/19 21:00 119/43 09/01/19 21:00 70 14 119/43 (68) 97 09/01/19 20:31 75 116/48 09/01/19 20:30 76 15 120/48 (72) 97 09/01/19 20:00 Mechanical Ventilator Mechanical Ventilator 09/01/19 20:00 99.2 76 14 125/53 (77) 97 09/01/19 20:00 76 09/01/19 20:00 125/53 09/01/19 20:00 35 09/01/19 19:48 75 14 35 09/01/19 19:30 75 14 139/49 (79) 99 09/01/19 19:00 122/49 09/01/19 19:00 78 15 122/49 (73) 97 09/01/19 18:30 75 15 108/49 (68) 98 09/01/19 18:00 123/76 09/01/19 18:00 82 16 123/76 (92) 98 09/01/19 17:30 76 14 113/54 (73) 98 I&O Intake and Output 09/01/19 09/02/19 19:00 07:00 Intake Total 45.5 ml 112.625 ml Output Total 90 ml 105 ml Balance -44.5 ml 7.625 ml IV Total 45.5 ml 62.625 ml Tube Feeding 50 ml Output Urine Total 90 ml 105 ml Dressing: other Wound: other Drains: other Cardiovascular: RSR Respiratory: decreased breath sounds Abdomen: soft, non-tender, present bowel sounds Extremities: no cyanosis Plan Problems: (1) Nosocomial pneumonia (2) AUREA (acute kidney injury) (3) Cardiomyopathy (4) Obesity (BMI 30.0-34.9) (5) DMII (diabetes mellitus, type 2) (6) Cardiac LV ejection fraction 40% (7) Pulmonary edema (8) Cardiopulmonary arrest Assessment & Plan: Cardiopulmonary arrest septic requiring urgent emergency line placement for pressors and fluids and meds Please see procedure report Full examination performed no other surgical issues found at this time etiology unknown likely surgical in nature Antibiotics fluids Pressors Vent weaning trials right groin site okay. no hematoma. no bleeding left arm picc okay NG tube is present in good position. A partial left lateral decubitus view of the abdomen performed as well as a supine view. The left lateral decubitus view is not adequate as the area of interest which would be the nondependent right side of the abdomen, which is the area of interest was not imaged and is beyond the field-of -view of the x-ray. Bowel gas pattern appears nonobstructive on the basis of the partial images obtained. off pressors labs reviewed cont tube feeds Unable to wean from ventilator. Labs noted ABG noted imaging reviewed cont weaning. if possible extubate otherwise will consider trach extubated improving monitor in ICU for now downgrade re-intubated on vent support on pressors wean pressors no family to consent for trach as will likely be needed vs comfort care / change of code status trach not emergency at this time will monitor * Interval removal of endotracheal tube. NG tube and left arm PICC line remain in place. * Apparent worsening of aeration with increasing hazy opacities in the bilateral lower lungs which may in part be related to artifact from patient positioning however layering bilateral pleural effusions and bilateral airspace disease not excluded. Follow-up recommended. (9) Respiratory failure (10) History of hypertension (11) COPD (chronic obstructive pulmonary disease) (12) CAD (coronary artery disease) (13) Atrial fibrillation (14) Dementia with behavioral disturbance (15) Upper respiratory infection (16) Acute respiratory failure (17) Dyspnea (18) UTI (urinary tract infection) Prosper Hummel Sep 02, 2019 17:09
[2019-09-02] MEDS: Dyna-Hex 2% Top Sol 2oz TOPIC SCH (20:00)
[2019-09-02] MEDS: Atorvastatin 20mg tab NG SCH (21:00)
[2019-09-03] VITALS (27 sets, daily range): BP systolic 103–172; BP diastolic 43–66
--- NOTE | 2019-09-03 01:00 | Progress Note ---
DATE: 09/02/2019 CARDIOLOGY PROGRESS NOTE SUBJECTIVE: The patient remains on ventilator support via endotracheal tube. Blood pressure trend increased. Monitored rhythm, sinus with paroxysmal atrial fibrillation, now better rate controlled. OBJECTIVE: VITAL SIGNS: T-max 99.5, blood pressure 161/58, heart rate 82, and respiratory rate 17. HEENT: Thin trach secretions. LUNGS: Bilateral breath sounds. CARDIAC: . Normal S1 and paradoxically split S2. ABDOMEN: Soft. EXTREMITIES: No edema. LABORATORY DATA: No new labs today. IMPRESSION: 1. Recurring respiratory failure, status post cardiopulmonary arrest. 2. COPD. 3. Acute on chronic respiratory acidosis. 4. Acute myocardial infarction. 5. Acute on chronic systolic and diastolic congestive heart failure. 6. Paroxysmal atrial fibrillation. 7. Conduction system disease of the heart. PLAN: 1. The patient needs tracheostomy for life-sustaining measures. 2. Cardiovascular regimen should continue without change. 3. Free water replacement ongoing. 4. Recheck lab studies. 5. Avoid diuretic right now, but titration of anti-failure and antianginal regimen should be addressed on a daily basis. 6. Nutrition by feeding tube. Saeed Sim M.D. DR: LIZETTE JOB#: [id number] CC:
--- NOTE | 2019-09-03 02:14 | Progress Note ---
DATE: 09/02/2019 SUBJECTIVE: The patient has low-grade fever without tachycardia. PHYSICAL EXAMINATION: VITAL SIGNS: Blood pressure 118/66, pulse is 76, respirations are 15, and temperature 99.5. HEENT: Eyes were normal. ENT, mucous membranes were moist and intact. NECK: Supple with no JVD without lymph nodes. LUNGS: Clear. HEART: Normal sounds with regular beats. There is no tachycardia at rest. ABDOMEN: Soft and nontender with normal bowel sounds. EXTREMITIES: Warm without cyanosis, clubbing, or edema. LABORATORY AND DIAGNOSTIC DATA: His hemoglobin is 13.0, hematocrit 38.4 with MCV of 93, WBC of 9.5, and platelets are 374. His BUN and creatinine is 28 and 0.7 respectively. His sodium is 147, potassium 3.8, chloride 108, CO2 is 29. SGOT, SGPT, and alkaline phosphatase are normal. Calcium is 8.8. Albumin is 2.3. Total protein is 5.8. ProBNP 7100. Chest x-ray obtained today shows atelectasis in the right mid lung and a small left pleural effusion. IMPRESSION: The patient has been three times weaned and every time required re-intubation. The case has been discussed with the assurance specialist. However, final decision regarding the management has not been yet. Repeat laboratory tests will be done in morning. Modesta Mulligan M.D. DR: Sravani JOB#: [id number] CC:
[2019-09-03 05:34] LABS: BASOPHILS % (AUTO) 0.5 % (0.0-2.0); EOSINOPHILS % (AUTO) 0.8 % (0.0-3.0); HEMOGLOBIN 10.8 G/DL (14.2-18.0); LYMPHOCYTES % (AUTO) 14.3 % (20.0-45.0); MEAN CORPUSCULAR VOLUME 92 FL (80-99); MONOCYTES % (AUTO) 6.8 % (1.0-10.0); NEUTROPHILS % (AUTO) 77.6 % (45.0-75.0); PLATELET COUNT 300 K/UL (150-450); RED BLOOD COUNT 3.46 M/UL (4.70-6.10); RED CELL DISTRIBUTION WIDTH 13.2 % (11.6-14.8); WHITE BLOOD COUNT 9.7 K/UL (4.8-10.8)
[2019-09-03 06:00] LABS: ALANINE AMINOTRANSFERASE 100 U/L (12-78); ALBUMIN 2.1 G/DL (3.4-5.0); ALBUMIN/GLOBULIN RATIO 0.7 (1.0-2.7); ALKALINE PHOSPHATASE 84 U/L (46-116); ANION GAP 6 mmol/L (5-15); ASPARTATE AMINO TRANSFERASE 63 U/L (15-37); BILIRUBIN,TOTAL 0.6 MG/DL (0.2-1.0); BLOOD UREA NITROGEN 50 mg/dL (7-18); CALCIUM 8.7 MG/DL (8.5-10.1); CARBON DIOXIDE 32 MMOL/L (21-32); CHLORIDE 109 MMOL/L (98-107); CREATININE 0.8 MG/DL (0.55-1.30); PHOSPHORUS 3.2 MG/DL (2.5-4.9); POTASSIUM 3.5 MMOL/L (3.5-5.1); SODIUM 147 MMOL/L (136-145)
[2019-09-03] MEDS: Amiodarone 200mg tab NG SCH (08:41)
[2019-09-03] MEDS: Pantoprazole Inj IVP SCH ×2 (08:42→20:49)
[2019-09-03] MEDS: Heparin 5000 units/ml inj SUBQ SCH ×2 (08:43→20:51)
--- NOTE | 2019-09-03 09:46 | Diagnostic Imaging Report ---
Indication: Dyspnea Technique: One view of the chest Comparison: 09/01/2019 Findings: Stable satisfactory positions of endotracheal and nasogastric tubes. Symmetric hazy basilar opacities most likely represent overlying soft tissue, but component of infiltrate also possible. Appearance probably unchanged allowing for differences in degree of rotation. The heart size is upper limits of normal. Impression: Hazy basilar opacities, most likely due to overlying soft tissue shadows but hazy infiltrates also possible. If the latter, stable on the left, new or increased on the right Stable and satisfactory tube positions
--- NOTE | 2019-09-03 10:16 | Pulmonolgy Critical Care Note ---
Critical Care - Asmt/Plan Problems: (1) Acute respiratory failure Assessment & Plan: got reintubated (2) Cardiac LV ejection fraction 40% (3) Cardiopulmonary arrest (4) Nosocomial pneumonia (5) Atrial fibrillation Assessment & Plan: controlled (6) Pulmonary edema (7) COPD (chronic obstructive pulmonary disease) (8) CAD (coronary artery disease) (9) Dementia with behavioral disturbance Respiratory: monitor respiratory rate, adjust FIO2, CXR Cardiac: continue pressors, continue to monitor HR/BP Renal: F/U I&O, check electrolytes Infectious Disease: check cultures Gastrointestinal: continue feedings/current rate Endocrine: monitor blood sugar Hematologic: transfuse if hgb<8.5 Neurologic: PRN Ativan, keep patient comfortable Prophylaxis: Protonix Time Spent (Minutes): 40 Notes Reviewed: cardio, renal Discussed with: nurses, consultants, human services case managerpatient accounts manager - Objective Last 24 Hour Vital Signs Date Time Temp Pulse Resp B/P (MAP) Pulse Ox O2 Delivery O2 Flow Rate FiO2 09/03/19 07:47 96 09/03/19 07:20 80 20 35 35 09/03/19 06:00 80 16 156/52 (86) 92 09/03/19 05:30 85 21 35 09/03/19 05:00 82 16 92 09/03/19 04:00 82 09/03/19 04:00 35 09/03/19 04:00 79 16 145/48 (80) 96 09/03/19 04:00 81 09/03/19 04:00 Mechanical Ventilator Mechanical Ventilator Mechanical Ventilator 09/03/19 03:30 84 20 35 09/03/19 03:00 79 15 127/46 (73) 96 09/03/19 02:00 79 16 103/60 (74) 96 09/03/19 01:00 81 17 131/43 (72) 96 09/03/19 00:44 86 20 35 09/03/19 00:00 99.0 77 14 116/45 (68) 96 09/03/19 00:00 Mechanical Ventilator Mechanical Ventilator Mechanical Ventilator 09/03/19 00:00 35 09/03/19 00:00 80 09/02/19 23:30 81 17 35 09/02/19 23:00 85 16 140/46 (77) 97 09/02/19 22:00 82 17 128/45 (72) 95 09/02/19 21:30 87 20 35 09/02/19 21:00 99.5 76 15 118/41 (66) 95 09/02/19 20:00 Mechanical Ventilator Mechanical Ventilator Mechanical Ventilator 09/02/19 20:00 82 17 138/45 (76) 94 09/02/19 20:00 35 09/02/19 20:00 87 09/02/19 19:30 83 17 35 09/02/19 19:00 80 17 138/48 (78) 95 09/02/19 18:00 86 20 128/57 (80) 95 09/02/19 17:00 99.8 86 18 132/73 (92) 97 09/02/19 16:36 84 16 35 09/02/19 16:00 Mechanical Ventilator Mechanical Ventilator Mechanical Ventilator 09/02/19 16:00 90 09/02/19 16:00 35 09/02/19 16:00 86 17 155/58 (90) 96 09/02/19 15:11 87 20 35 09/02/19 15:00 99.3 83 17 161/58 (92) 98 09/02/19 14:00 83 18 139/63 (88) 95 09/02/19 13:00 92 18 156/67 (96) 93 09/02/19 12:37 88 21 35 09/02/19 12:00 94 17 156/64 (94) 95 09/02/19 12:00 Mechanical Ventilator Mechanical Ventilator Mechanical Ventilator 09/02/19 12:00 35 09/02/19 11:02 97 09/02/19 11:00 95 17 154/65 (94) 94 09/02/19 10:51 90 21 35 Status: sedated Condition: grave HEENT: atraumatic Neck: full ROM Lungs: clear Heart: HR/BP stable Abdomen: soft, active bowel sounds Extremities: no C/C/E Accucheck: 150 Critical Care - Subjective ROS Limited/Unobtainable: Yes Condition: critical FI02: 35 Vent Support Breath Rate: 14 Vent Support Mode: AC Vent Tidal Volume: 500 Sputum Amount: Moderate PEEP: 5.0 PIP: 26 Tube Feeding Amount: 55 I&O: Intake and Output 09/02/19 09/03/19 18:59 06:59 Intake Total 490 ml 710 ml Output Total 280 ml 450 ml Balance 210 ml 260 ml Free Water 90 ml 90 ml Tube Feeding 370 ml 620 ml Other 30 ml Output Urine Total 280 ml 450 ml # Bowel Movements 1 ET-Tube: 7.5 ET Position: 23 Labs: Laboratory Tests Test 09/03/19 04:20 White Blood Count 9.7 K/UL (4.8-10.8) Red Blood Count 3.46 M/UL (4.70-6.10) L Hemoglobin 10.8 G/DL (14.2-18.0) L Hematocrit 32.0 % (42.0-52.0) L Mean Corpuscular Volume 92 FL (80-99) Mean Corpuscular Hemoglobin 31.3 PG (27.0-31.0) H Mean Corpuscular Hemoglobin Concent 33.9 G/DL (32.0-36.0) Red Cell Distribution Width 13.2 % (11.6-14.8) Platelet Count 300 K/UL (150-450) Mean Platelet Volume 4.8 FL (6.5-10.1) L Neutrophils (%) (Auto) 77.6 % (45.0-75.0) H Lymphocytes (%) (Auto) 14.3 % (20.0-45.0) L Monocytes (%) (Auto) 6.8 % (1.0-10.0) Eosinophils (%) (Auto) 0.8 % (0.0-3.0) Basophils (%) (Auto) 0.5 % (0.0-2.0) Sodium Level 147 MMOL/L (136-145) H Potassium Level 3.5 MMOL/L (3.5-5.1) Chloride Level 109 MMOL/L (98-107) H Carbon Dioxide Level 32 MMOL/L (21-32) Anion Gap 6 mmol/L (5-15) Blood Urea Nitrogen 50 mg/dL (7-18) H Creatinine 0.8 MG/DL (0.55-1.30) Estimat Glomerular Filtration Rate > 60 mL/min (>60) Glucose Level 132 MG/DL (74-106) H Calcium Level 8.7 MG/DL (8.5-10.1) Phosphorus Level 3.2 MG/DL (2.5-4.9) Magnesium Level 2.2 MG/DL (1.8-2.4) Total Bilirubin 0.6 MG/DL (0.2-1.0) Aspartate Amino Transf (AST/SGOT) 63 U/L (15-37) H Alanine Aminotransferase (ALT/SGPT) 100 U/L (12-78) H Alkaline Phosphatase 84 U/L (46-116) Total Protein 5.2 G/DL (6.4-8.2) L Albumin 2.1 G/DL (3.4-5.0) L Globulin 3.1 g/dL Albumin/Globulin Ratio 0.7 (1.0-2.7) L Nicole Graves MD Sep 03, 2019 10:16
--- NOTE | 2019-09-03 11:33 | Surgery Progress Note ---
Surgery Progress Note Subjective Additional Comments weaning vent more responsive tody Objective Last 24 Hour Vital Signs Date Time Temp Pulse Resp B/P (MAP) Pulse Ox O2 Delivery O2 Flow Rate FiO2 09/03/19 11:18 187/95 09/03/19 10:30 83 20 35 35 09/03/19 09:02 82 18 35 35 09/03/19 07:47 96 09/03/19 07:20 80 20 35 35 09/03/19 06:00 80 16 156/52 (86) 92 09/03/19 05:30 85 21 35 09/03/19 05:00 82 16 92 09/03/19 04:00 82 09/03/19 04:00 35 09/03/19 04:00 79 16 145/48 (80) 96 09/03/19 04:00 81 09/03/19 04:00 Mechanical Ventilator Mechanical Ventilator Mechanical Ventilator 09/03/19 03:30 84 20 35 09/03/19 03:00 79 15 127/46 (73) 96 09/03/19 02:00 79 16 103/60 (74) 96 09/03/19 01:00 81 17 131/43 (72) 96 09/03/19 00:44 86 20 35 09/03/19 00:00 99.0 77 14 116/45 (68) 96 09/03/19 00:00 Mechanical Ventilator Mechanical Ventilator Mechanical Ventilator 09/03/19 00:00 35 09/03/19 00:00 80 09/02/19 23:30 81 17 35 09/02/19 23:00 85 16 140/46 (77) 97 09/02/19 22:00 82 17 128/45 (72) 95 09/02/19 21:30 87 20 35 09/02/19 21:00 99.5 76 15 118/41 (66) 95 09/02/19 20:00 Mechanical Ventilator Mechanical Ventilator Mechanical Ventilator 09/02/19 20:00 82 17 138/45 (76) 94 09/02/19 20:00 35 09/02/19 20:00 87 09/02/19 19:30 83 17 35 09/02/19 19:00 80 17 138/48 (78) 95 09/02/19 18:00 86 20 128/57 (80) 95 09/02/19 17:00 99.8 86 18 132/73 (92) 97 09/02/19 16:36 84 16 35 09/02/19 16:00 Mechanical Ventilator Mechanical Ventilator Mechanical Ventilator 09/02/19 16:00 90 09/02/19 16:00 35 09/02/19 16:00 86 17 155/58 (90) 96 09/02/19 15:11 87 20 35 09/02/19 15:00 99.3 83 17 161/58 (92) 98 09/02/19 14:00 83 18 139/63 (88) 95 09/02/19 13:00 92 18 156/67 (96) 93 09/02/19 12:37 88 21 35 09/02/19 12:00 94 17 156/64 (94) 95 09/02/19 12:00 Mechanical Ventilator Mechanical Ventilator Mechanical Ventilator 09/02/19 12:00 35 I&O Intake and Output 09/02/19 09/03/19 19:00 07:00 Intake Total 510 ml 665 ml Output Total 285 ml 440 ml Balance 225 ml 225 ml Free Water 90 ml 90 ml Tube Feeding 390 ml 575 ml Other 30 ml Output Urine Total 285 ml 440 ml # Bowel Movements 1 Dressing: other Wound: other Drains: other Cardiovascular: RSR Respiratory: decreased breath sounds Abdomen: soft, non-tender, present bowel sounds Extremities: no cyanosis Laboratory Tests Test 09/03/19 04:20 White Blood Count 9.7 K/UL (4.8-10.8) Red Blood Count 3.46 M/UL (4.70-6.10) L Hemoglobin 10.8 G/DL (14.2-18.0) L Hematocrit 32.0 % (42.0-52.0) L Mean Corpuscular Volume 92 FL (80-99) Mean Corpuscular Hemoglobin 31.3 PG (27.0-31.0) H Mean Corpuscular Hemoglobin Concent 33.9 G/DL (32.0-36.0) Red Cell Distribution Width 13.2 % (11.6-14.8) Platelet Count 300 K/UL (150-450) Mean Platelet Volume 4.8 FL (6.5-10.1) L Neutrophils (%) (Auto) 77.6 % (45.0-75.0) H Lymphocytes (%) (Auto) 14.3 % (20.0-45.0) L Monocytes (%) (Auto) 6.8 % (1.0-10.0) Eosinophils (%) (Auto) 0.8 % (0.0-3.0) Basophils (%) (Auto) 0.5 % (0.0-2.0) Sodium Level 147 MMOL/L (136-145) H Potassium Level 3.5 MMOL/L (3.5-5.1) Chloride Level 109 MMOL/L (98-107) H Carbon Dioxide Level 32 MMOL/L (21-32) Anion Gap 6 mmol/L (5-15) Blood Urea Nitrogen 50 mg/dL (7-18) H Creatinine 0.8 MG/DL (0.55-1.30) Estimat Glomerular Filtration Rate > 60 mL/min (>60) Glucose Level 132 MG/DL (74-106) H Calcium Level 8.7 MG/DL (8.5-10.1) Phosphorus Level 3.2 MG/DL (2.5-4.9) Magnesium Level 2.2 MG/DL (1.8-2.4) Total Bilirubin 0.6 MG/DL (0.2-1.0) Aspartate Amino Transf (AST/SGOT) 63 U/L (15-37) H Alanine Aminotransferase (ALT/SGPT) 100 U/L (12-78) H Alkaline Phosphatase 84 U/L (46-116) Total Protein 5.2 G/DL (6.4-8.2) L Albumin 2.1 G/DL (3.4-5.0) L Globulin 3.1 g/dL Albumin/Globulin Ratio 0.7 (1.0-2.7) L Plan Problems: (1) Nosocomial pneumonia (2) AUREA (acute kidney injury) (3) Cardiomyopathy (4) Obesity (BMI 30.0-34.9) (5) DMII (diabetes mellitus, type 2) (6) Cardiac LV ejection fraction 40% (7) Pulmonary edema (8) Cardiopulmonary arrest Assessment & Plan: Cardiopulmonary arrest septic requiring urgent emergency line placement for pressors and fluids and meds Please see procedure report Full examination performed no other surgical issues found at this time etiology unknown likely surgical in nature Antibiotics fluids Pressors Vent weaning trials right groin site okay. no hematoma. no bleeding left arm picc okay NG tube is present in good position. A partial left lateral decubitus view of the abdomen performed as well as a supine view. The left lateral decubitus view is not adequate as the area of interest which would be the nondependent right side of the abdomen, which is the area of interest was not imaged and is beyond the field-of -view of the x-ray. Bowel gas pattern appears nonobstructive on the basis of the partial images obtained. off pressors labs reviewed cont tube feeds Unable to wean from ventilator. Labs noted ABG noted imaging reviewed cont weaning. if possible extubate otherwise will consider trach extubated improving monitor in ICU for now downgrade re-intubated on vent support on pressors wean pressors no family to consent for trach as will likely be needed vs comfort care / change of code status trach not emergency at this time will monitor * Interval removal of endotracheal tube. NG tube and left arm PICC line remain in place. * Apparent worsening of aeration with increasing hazy opacities in the bilateral lower lungs which may in part be related to artifact from patient positioning however layering bilateral pleural effusions and bilateral airspace disease not excluded. Follow-up recommended. (9) Respiratory failure (10) History of hypertension (11) COPD (chronic obstructive pulmonary disease) (12) CAD (coronary artery disease) (13) Atrial fibrillation (14) Dementia with behavioral disturbance (15) Upper respiratory infection (16) Acute respiratory failure (17) Dyspnea (18) UTI (urinary tract infection) Prosper Hummel Sep 03, 2019 11:33
--- NOTE | 2019-09-03 12:43 | Nephrology Progress Note ---
Assessment/Plan Problem List: (1) AUREA (acute kidney injury) Assessment: Serum creatinine rising (2) Cardiopulmonary arrest (3) Respiratory failure (4) Cardiomyopathy (5) Obesity (BMI 30.0-34.9) (6) DMII (diabetes mellitus, type 2) Assessment Acute Renal Failure : AUREA Most likely due to cardiorespiratory arrest and episode of hypotension. Patient also has cardiomyopathy with Ej Fx of 40 % on admission Obese : BMI 34.4 ? DM Other Dx (1) Cardiopulmonary arrest (2) Nosocomial pneumonia (3) Acute respiratory failure (4) COPD (chronic obstructive pulmonary disease) (5) Atrial fibrillation (6) Dementia with behavioral disturbance (7) CAD (coronary artery disease) Plan Patient is now reintubated and back in ICU Today's labs reviewed D5 W IV fluids for hypernatremia as needed pressors are off now patient's condition somewhat more stable In ICU He is intubated ventilator, weaning is being tried His blood pressure is more stable Overall he is still doing poorly Adjust blood pressure medications Stress dose of steroids which we will start tapering today Previously Monitor renal parameters. Serum creatinine improved Monitor urine output. Urine output improved. Avoid nephrotoxics. Weaning as possible. Remains intubated at this time. Correct electrolyte imbalances. Change tube feeding to Glucerna. Subjective ROS Limited/Unobtainable: Yes Objective Objective Last 24 Hour Vital Signs Date Time Temp Pulse Resp B/P (MAP) Pulse Ox O2 Delivery O2 Flow Rate FiO2 09/03/19 11:18 187/95 09/03/19 10:30 83 20 35 35 09/03/19 09:02 82 18 35 35 09/03/19 07:47 96 09/03/19 07:20 80 20 35 35 09/03/19 06:00 80 16 156/52 (86) 92 09/03/19 05:30 85 21 35 09/03/19 05:00 82 16 92 09/03/19 04:00 82 09/03/19 04:00 35 09/03/19 04:00 79 16 145/48 (80) 96 09/03/19 04:00 81 09/03/19 04:00 Mechanical Ventilator Mechanical Ventilator Mechanical Ventilator 09/03/19 03:30 84 20 35 09/03/19 03:00 79 15 127/46 (73) 96 09/03/19 02:00 79 16 103/60 (74) 96 09/03/19 01:00 81 17 131/43 (72) 96 09/03/19 00:44 86 20 35 09/03/19 00:00 99.0 77 14 116/45 (68) 96 09/03/19 00:00 Mechanical Ventilator Mechanical Ventilator Mechanical Ventilator 09/03/19 00:00 35 09/03/19 00:00 80 09/02/19 23:30 81 17 35 09/02/19 23:00 85 16 140/46 (77) 97 09/02/19 22:00 82 17 128/45 (72) 95 09/02/19 21:30 87 20 35 09/02/19 21:00 99.5 76 15 118/41 (66) 95 09/02/19 20:00 Mechanical Ventilator Mechanical Ventilator Mechanical Ventilator 09/02/19 20:00 82 17 138/45 (76) 94 09/02/19 20:00 35 09/02/19 20:00 87 09/02/19 19:30 83 17 35 09/02/19 19:00 80 17 138/48 (78) 95 09/02/19 18:00 86 20 128/57 (80) 95 09/02/19 17:00 99.8 86 18 132/73 (92) 97 09/02/19 16:36 84 16 35 09/02/19 16:00 Mechanical Ventilator Mechanical Ventilator Mechanical Ventilator 09/02/19 16:00 90 09/02/19 16:00 35 09/02/19 16:00 86 17 155/58 (90) 96 09/02/19 15:11 87 20 35 09/02/19 15:00 99.3 83 17 161/58 (92) 98 09/02/19 14:00 83 18 139/63 (88) 95 09/02/19 13:00 92 18 156/67 (96) 93 Intake and Output 09/02/19 09/03/19 18:59 06:59 Intake Total 490 ml 710 ml Output Total 280 ml 450 ml Balance 210 ml 260 ml Free Water 90 ml 90 ml Tube Feeding 370 ml 620 ml Other 30 ml Output Urine Total 280 ml 450 ml # Bowel Movements 1 Laboratory Tests 09/03/19 04:20: White Blood Count 9.7, Red Blood Count 3.46L, Hemoglobin 10.8L, Hematocrit 32.0L , Mean Corpuscular Volume 92, Mean Corpuscular Hemoglobin 31.3H, Mean Corpuscular Hemoglobin Concent 33.9, Red Cell Distribution Width 13.2, Platelet Count 300, Mean Platelet Volume 4.8L, Neutrophils (%) (Auto) 77.6H, Lymphocytes (%) (Auto) 14.3L, Monocytes (%) (Auto) 6.8, Eosinophils (%) (Auto) 0.8, Basophils (%) (Auto) 0.5, Sodium Level 147H, Potassium Level 3.5, Chloride Level 109H, Carbon Dioxide Level 32, Anion Gap 6, Blood Urea Nitrogen 50H, Creatinine 0.8, Estimat Glomerular Filtration Rate > 60, Glucose Level 132H, Calcium Level 8.7, Phosphorus Level 3.2, Magnesium Level 2.2, Total Bilirubin 0.6, Aspartate Amino Transf (AST/SGOT) 63H, Alanine Aminotransferase (ALT/SGPT) 100H, Alkaline Phosphatase 84, Total Protein 5.2L, Albumin 2.1L, Globulin 3.1, Albumin/Globulin Ratio 0.7L Height (Feet): 5 Height (Inches): 6.00 Weight (Pounds): 210 General Appearance: no apparent distress EENT: other - Intubated and vented Cardiovascular: normal rate Respiratory/Chest: decreased breath sounds Abdomen: soft Objective no change Yunior Sexton MD Sep 03, 2019 12:43
--- NOTE | 2019-09-03 14:16 | Infectious Diseases Prog Note ---
Assessment/Plan Assessment/Plan ASSESSMENT: The patient is a 79-year-old male with: Multiple reintubations, likely cannot maintain airway Afebrile No leukocytosis Less likely pneumonia 08/31 CXR: There is a hazy opacity at the left lung base again noted unchanged. Mild linear densities are seen in the right midlung which may be atelectasis or scarring. 09/02 CXR: Hazy basilar opacities, most likely due to overlying soft tissue shadows but hazy infiltrates also possible. If the latter, stable on the left, new or increased on the right. Stable and satisfactory tube positions Leukocytosis; Sp Fever , sp Sepsis, Sp Pneumonia ( probable asp), Sp RX -08/28 CXR: Interval removal of endotracheal tube. NG tube and left arm PICC line remain in place. Apparent worsening of aeration with increasing hazy opacities in the bilateral lower lungs which may in part be related to artifact from patient positioning however layering bilateral pleural effusions and bilateral airspace disease not excluded. -08/13 Scx: MDR-ACB (Tygacil LANI: 4) - CXR: 1. Streaky opacities in the right lower lung may represent atelectasis versus scarring. Left basilar opacity may represent atelectasis. Component of pneumonia is not excluded. Pulmonary vasculature congestion. -08/01 ucx NTD - sp cx: nl anastacio Urinary tract infection, SP Rx 08/31 SP rapid response and reintubation 08/17 Sp code blue and intubation , extubated 08/27 07/31 Sp Code blue and intubation , sp extubation 08/12 , Hyperlipidemia. COPD. History of GERD. History of encephalopathy. History of CAD/OK. History of cardiomyopathy. Hypertension. PLAN: Continue to monitor off abx -08/28 SP Colistin INH (MDR-ACB) # 14 - 08/22/19 SP Merrem 10 - 08/14 SP IV Vanco # 4 -3 SP Zosyn and IV Vanco # 7/ , -08/01 SP Rocephin day # 10 - 07/31 sp sp Dox # 6 Monitor CBC. Monitor BMP. Monitor chest x-ray cont ICU Support ANGELLA RN Subjective Allergies: Coded Allergies: No Known Allergies (Unverified , 06/03/17) Subjective Afebrile. FiO2 35% Minimal secretion opens eyes slightly to voice Objective Vital Signs Last 24 Hour Vital Signs Date Time Temp Pulse Resp B/P (MAP) Pulse Ox O2 Delivery O2 Flow Rate FiO2 09/03/19 13:29 70 14 35 35 09/03/19 11:18 187/95 09/03/19 10:30 83 20 35 35 09/03/19 09:02 82 18 35 35 09/03/19 07:47 96 09/03/19 07:20 80 20 35 35 09/03/19 06:00 80 16 156/52 (86) 92 09/03/19 05:30 85 21 35 09/03/19 05:00 82 16 92 09/03/19 04:00 82 09/03/19 04:00 35 09/03/19 04:00 79 16 145/48 (80) 96 09/03/19 04:00 81 09/03/19 04:00 Mechanical Ventilator Mechanical Ventilator Mechanical Ventilator 09/03/19 03:30 84 20 35 09/03/19 03:00 79 15 127/46 (73) 96 09/03/19 02:00 79 16 103/60 (74) 96 09/03/19 01:00 81 17 131/43 (72) 96 09/03/19 00:44 86 20 35 09/03/19 00:00 99.0 77 14 116/45 (68) 96 09/03/19 00:00 Mechanical Ventilator Mechanical Ventilator Mechanical Ventilator 09/03/19 00:00 35 09/03/19 00:00 80 09/02/19 23:30 81 17 35 09/02/19 23:00 85 16 140/46 (77) 97 09/02/19 22:00 82 17 128/45 (72) 95 09/02/19 21:30 87 20 35 09/02/19 21:00 99.5 76 15 118/41 (66) 95 09/02/19 20:00 Mechanical Ventilator Mechanical Ventilator Mechanical Ventilator 09/02/19 20:00 82 17 138/45 (76) 94 09/02/19 20:00 35 09/02/19 20:00 87 09/02/19 19:30 83 17 35 09/02/19 19:00 80 17 138/48 (78) 95 09/02/19 18:00 86 20 128/57 (80) 95 09/02/19 17:00 99.8 86 18 132/73 (92) 97 09/02/19 16:36 84 16 35 09/02/19 16:00 Mechanical Ventilator Mechanical Ventilator Mechanical Ventilator 09/02/19 16:00 90 09/02/19 16:00 35 09/02/19 16:00 86 17 155/58 (90) 96 09/02/19 15:11 87 20 35 09/02/19 15:00 99.3 83 17 161/58 (92) 98 Height (Feet): 5 Height (Inches): 6.00 Weight (Pounds): 210 Objective Gen: NAD HEENT: ETT CV: RRR. no rubs Resp: RRR. equal chest rise. no wheezes. Abd: nondistended. no palpable masses Neuro: not following commands Laboratory Tests Test 09/03/19 04:20 White Blood Count 9.7 K/UL (4.8-10.8) Red Blood Count 3.46 M/UL (4.70-6.10) L Hemoglobin 10.8 G/DL (14.2-18.0) L Hematocrit 32.0 % (42.0-52.0) L Mean Corpuscular Volume 92 FL (80-99) Mean Corpuscular Hemoglobin 31.3 PG (27.0-31.0) H Mean Corpuscular Hemoglobin Concent 33.9 G/DL (32.0-36.0) Red Cell Distribution Width 13.2 % (11.6-14.8) Platelet Count 300 K/UL (150-450) Mean Platelet Volume 4.8 FL (6.5-10.1) L Neutrophils (%) (Auto) 77.6 % (45.0-75.0) H Lymphocytes (%) (Auto) 14.3 % (20.0-45.0) L Monocytes (%) (Auto) 6.8 % (1.0-10.0) Eosinophils (%) (Auto) 0.8 % (0.0-3.0) Basophils (%) (Auto) 0.5 % (0.0-2.0) Sodium Level 147 MMOL/L (136-145) H Potassium Level 3.5 MMOL/L (3.5-5.1) Chloride Level 109 MMOL/L (98-107) H Carbon Dioxide Level 32 MMOL/L (21-32) Anion Gap 6 mmol/L (5-15) Blood Urea Nitrogen 50 mg/dL (7-18) H Creatinine 0.8 MG/DL (0.55-1.30) Estimat Glomerular Filtration Rate > 60 mL/min (>60) Glucose Level 132 MG/DL (74-106) H Calcium Level 8.7 MG/DL (8.5-10.1) Phosphorus Level 3.2 MG/DL (2.5-4.9) Magnesium Level 2.2 MG/DL (1.8-2.4) Total Bilirubin 0.6 MG/DL (0.2-1.0) Aspartate Amino Transf (AST/SGOT) 63 U/L (15-37) H Alanine Aminotransferase (ALT/SGPT) 100 U/L (12-78) H Alkaline Phosphatase 84 U/L (46-116) Total Protein 5.2 G/DL (6.4-8.2) L Albumin 2.1 G/DL (3.4-5.0) L Globulin 3.1 g/dL Albumin/Globulin Ratio 0.7 (1.0-2.7) L Current Medications Medications (Trade) Dose Ordered Sig/Amaris Route PRN Reason Start Time Stop Time Status Last Admin Dose Admin Acetaminophen (Tylenol) 650 mg Q4H PRN NG Mild Pain/Temp > 100.5 09/01/19 10:20 10/01/19 10:19 Albuterol/ Ipratropium (Albuterol/ Ipratropium) 3 ml Q4H PRN HHN Shortness of Breath 09/01/19 10:20 09/06/19 10:19 Amiodarone HCl (Cordarone) 200 mg DAILY NG 09/01/19 10:22 11/30/19 10:21 09/03/19 08:41 Atorvastatin Calcium (Lipitor) 40 mg BEDTIME NG 09/01/19 21:00 09/13/19 20:59 09/02/19 21:00 Chlorhexidine Gluconate (Kamila-Hex 2%) 1 applic DAILY@1999 TOPIC 09/01/19 20:00 09/17/19 19:59 09/02/19 20:00 Clopidogrel Bisulfate (Plavix) 75 mg DAILY NG 09/01/19 10:22 10/01/19 10:21 09/03/19 08:42 Heparin Sodium (Porcine) (Heparin 5000 units/ml) 5,000 units EVERY 12 HOURS SUBQ 09/01/19 10:23 10/16/19 10:22 09/03/19 08:43 Hydralazine HCl (Apresoline) 25 mg Q6HR PRN NG SBP above 160 09/02/19 01:45 12/01/19 01:44 Lorazepam (Ativan 2mg/ml 1ml) 2 mg Q4H PRN IV For Anxiety 09/01/19 10:20 09/08/19 10:19 09/02/19 03:18 Morphine Sulfate (Morphine Sulfate) 2 mg Q4H PRN IVP For Pain 09/01/19 10:21 09/08/19 10:20 Norepinephrine Bitartrate 4 mg/ Dextrose 250 ml @ 0 mls/hr Q24H IV 09/01/19 11:48 10/01/19 11:47 09/01/19 12:08 Pantoprazole (Protonix) 40 mg EVERY 12 HOURS IVP 09/01/19 10:23 10/01/19 10:22 09/03/19 08:42 Rafy Page MD Sep 03, 2019 14:16
[2019-09-03] MEDS: Dyna-Hex 2% Top Sol 2oz TOPIC SCH (20:48)
[2019-09-03] MEDS: Atorvastatin 20mg tab NG SCH (20:50)
--- NOTE | 2019-09-03 22:15 | Progress Note ---
DATE: 09/03/2019 CARDIOLOGY PROGRESS NOTE SUBJECTIVE: The patient remains on ventilator support. He has had three episodes of respiratory failure during this hospital stay. Blood pressure parameters labile. Monitored rhythm sinus with paroxysms of atrial fibrillation. PHYSICAL EXAMINATION: VITAL SIGNS: Blood pressure ranging from 145/48 to 187/95. LUNGS: Coarse breath sounds and rhonchi. HEART: Regular rhythm and rate. Normal S1, S2. ABDOMEN: Soft. EXTREMITIES: Trace edema. LABORATORY AND DIAGNOSTIC DATA: White count 9.7, hemoglobin 10.8. Sodium 147, potassium 3.5, bicarb 32, BUN , creatinine 0.8. IMPRESSION: 1. Respiratory failure recurrent status post cardiopulmonary arrest. 2. Paroxysmal atrial fibrillation. 3. Ischemic cardiomyopathy. 4. Non ST-elevation myocardial infarction. 5. Severe protein-calorie malnutrition. 6. Acute on chronic respiratory acidosis. 7. Dehydration. 8. Hypernatremia. 9. Prerenal azotemia. PLAN: 1. The patient will need trach. I feel this is a life-sustaining measure at this time. 2. Free water replacement is indicated. 3. Additional diuresis should be held and will be maintained on amiodarone for arrhythmia suppression as well as anti-lipid therapy, p.r.n. hydralazine has been ordered for blood pressure spikes. Saeed Sim M.D. DR: Bruno JOB#: [id number] CC:
[2019-09-04] VITALS (26 sets, daily range): BP systolic 111–165; BP diastolic 44–76
[2019-09-04 05:44] LABS: BASOPHILS % (AUTO) 0.6 % (0.0-2.0); EOSINOPHILS % (AUTO) 3.5 % (0.0-3.0); HEMATOCRIT 28.8 % (42.0-52.0); HEMOGLOBIN 9.6 G/DL (14.2-18.0); LYMPHOCYTES % (AUTO) 17.8 % (20.0-45.0); MEAN CORPUSCULAR VOLUME 93 FL (80-99); MONOCYTES % (AUTO) 6.2 % (1.0-10.0); NEUTROPHILS % (AUTO) 71.9 % (45.0-75.0); PLATELET COUNT 271 K/UL (150-450); RED CELL DISTRIBUTION WIDTH 13.6 % (11.6-14.8); WHITE BLOOD COUNT 6.1 K/UL (4.8-10.8)
[2019-09-04 06:14] LABS: ANION GAP 3 mmol/L (5-15); BLOOD UREA NITROGEN 44 mg/dL (7-18); CALCIUM 8.4 MG/DL (8.5-10.1); CARBON DIOXIDE 33 MMOL/L (21-32); CHLORIDE 111 MMOL/L (98-107); CREATININE 0.6 MG/DL (0.55-1.30); POTASSIUM 3.3 MMOL/L (3.5-5.1); SODIUM 147 MMOL/L (136-145)
[2019-09-04] MEDS: Amiodarone 200mg tab NG SCH (09:24)
[2019-09-04] MEDS: Pantoprazole Inj IVP SCH ×2 (09:24→21:08)
[2019-09-04] MEDS: Heparin 5000 units/ml inj SUBQ SCH ×2 (09:25→21:11)
--- NOTE | 2019-09-04 10:28 | Pulmonolgy Critical Care Note ---
Critical Care - Asmt/Plan Problems: (1) Acute respiratory failure Assessment & Plan: got reintubated (2) Cardiac LV ejection fraction 40% (3) Cardiopulmonary arrest (4) Nosocomial pneumonia (5) Atrial fibrillation Assessment & Plan: controlled (6) Pulmonary edema (7) COPD (chronic obstructive pulmonary disease) (8) CAD (coronary artery disease) (9) Dementia with behavioral disturbance Respiratory: monitor respiratory rate, adjust FIO2, CXR Cardiac: continue to monitor HR/BP Renal: F/U I&O, keep IV fluid, check electrolytes Infectious Disease: check cultures, continue antibiotics Gastrointestinal: continue feedings/current rate Endocrine: monitor blood sugar Neurologic: PRN Morphine Disposition: keep in ICU Notes Reviewed: guest experience representative, cardio, ID, GI Discussed with: nurses, consultants, porter sample caseportfolio manager - Objective Last 24 Hour Vital Signs Date Time Temp Pulse Resp B/P (MAP) Pulse Ox O2 Delivery O2 Flow Rate FiO2 09/04/19 09:16 81 23 35 35 09/04/19 09:13 81 17 35 09/04/19 09:00 80 20 152/55 (87) 96 09/04/19 08:00 35 09/04/19 08:00 63 09/04/19 08:00 99.4 75 15 149/50 (83) 96 09/04/19 07:05 79 19 35 09/04/19 07:00 72 14 140/50 (80) 95 09/04/19 06:00 81 21 157/76 (103) 09/04/19 05:25 72 15 35 09/04/19 05:00 73 14 150/52 (84) 96 09/04/19 04:00 98.5 78 20 144/57 (86) 96 09/04/19 04:00 74 09/04/19 04:00 35 09/04/19 04:00 Mechanical Ventilator Mechanical Ventilator Mechanical Ventilator 09/04/19 03:20 77 17 35 09/04/19 03:00 72 15 139/50 (79) 96 09/04/19 02:00 71 15 141/45 (77) 96 09/04/19 01:30 74 18 152/52 (85) 99 09/04/19 01:28 76 16 35 09/04/19 01:00 76 17 150/56 (87) 97 09/04/19 00:30 71 15 135/50 (78) 96 09/04/19 00:00 73 15 138/53 (81) 95 09/04/19 00:00 98.8 73 15 138/53 (81) 95 09/04/19 00:00 Mechanical Ventilator Mechanical Ventilator Mechanical Ventilator 09/04/19 00:00 35 09/04/19 00:00 70 09/03/19 23:30 76 09/03/19 23:04 73 15 35 09/03/19 23:00 72 16 138/52 (80) 96 09/03/19 22:30 71 15 140/50 (80) 96 09/03/19 22:00 71 16 137/50 (79) 96 09/03/19 21:30 71 16 143/62 (89) 96 09/03/19 21:30 72 15 35 09/03/19 21:00 75 18 152/53 (86) 97 09/03/19 20:30 70 15 136/50 (78) 96 09/03/19 20:00 35 09/03/19 20:00 70 09/03/19 20:00 Mechanical Ventilator Mechanical Ventilator Mechanical Ventilator 09/03/19 20:00 98.6 73 18 138/52 (80) 97 09/03/19 19:38 73 19 35 09/03/19 19:30 70 14 141/47 (78) 96 09/03/19 19:00 73 18 143/52 (82) 09/03/19 18:00 70 17 135/52 (79) 09/03/19 17:00 74 19 35 09/03/19 17:00 76 15 149/51 (83) 96 09/03/19 16:00 Mechanical Ventilator Mechanical Ventilator Mechanical Ventilator 09/03/19 16:00 65 09/03/19 16:00 98.5 69 15 151/50 (83) 97 09/03/19 16:00 35 09/03/19 15:20 76 19 35 09/03/19 15:00 70 15 148/56 (86) 96 09/03/19 14:00 73 16 165/54 (91) 95 09/03/19 13:29 70 14 35 09/03/19 13:00 75 17 152/54 (86) 95 09/03/19 12:00 98.2 72 15 150/54 (86) 95 09/03/19 12:00 35 09/03/19 12:00 75 09/03/19 12:00 Mechanical Ventilator Mechanical Ventilator Mechanical Ventilator 09/03/19 11:18 187/95 09/03/19 11:00 76 14 151/56 (87) 97 09/03/19 10:30 83 20 35 35 Status: sedated Condition: critical HEENT: atraumatic Neck: full ROM Lungs: chest wall tender Heart: HR/BP unstable Abdomen: non-tender, feeding tube Extremities: edema Decubiti: location Accucheck: 150 Critical Care - Subjective ROS Limited/Unobtainable: Yes FI02: 35 Vent Support Breath Rate: 14 Vent Support Mode: CPAP Vent Tidal Volume: 500 Sputum Amount: Moderate PEEP: 5.0 PIP: 14 Tube Feeding Amount: 55 I&O: Intake and Output 09/03/19 09/04/19 19:00 07:00 Intake Total 690 ml 690 ml Output Total 470 ml 420 ml Balance 220 ml 270 ml Free Water 30 ml 30 ml Tube Feeding 660 ml 660 ml Output Urine Total 470 ml 420 ml ET-Tube: 7.5 ET Position: 23 Labs: Laboratory Tests Test 09/04/19 05:00 White Blood Count 6.1 K/UL (4.8-10.8) Red Blood Count 3.10 M/UL (4.70-6.10) L Hemoglobin 9.6 G/DL (14.2-18.0) L Hematocrit 28.8 % (42.0-52.0) L Mean Corpuscular Volume 93 FL (80-99) Mean Corpuscular Hemoglobin 31.1 PG (27.0-31.0) H Mean Corpuscular Hemoglobin Concent 33.4 G/DL (32.0-36.0) Red Cell Distribution Width 13.6 % (11.6-14.8) Platelet Count 271 K/UL (150-450) Mean Platelet Volume 4.9 FL (6.5-10.1) L Neutrophils (%) (Auto) 71.9 % (45.0-75.0) Lymphocytes (%) (Auto) 17.8 % (20.0-45.0) L Monocytes (%) (Auto) 6.2 % (1.0-10.0) Eosinophils (%) (Auto) 3.5 % (0.0-3.0) H Basophils (%) (Auto) 0.6 % (0.0-2.0) Sodium Level 147 MMOL/L (136-145) H Potassium Level 3.3 MMOL/L (3.5-5.1) L Chloride Level 111 MMOL/L (98-107) H Carbon Dioxide Level 33 MMOL/L (21-32) H Anion Gap 3 mmol/L (5-15) L Blood Urea Nitrogen 44 mg/dL (7-18) H Creatinine 0.6 MG/DL (0.55-1.30) Estimat Glomerular Filtration Rate > 60 mL/min (>60) Glucose Level 122 MG/DL (74-106) H Calcium Level 8.4 MG/DL (8.5-10.1) L Pro-B-Type Natriuretic Peptide 1838 pg/mL (0-125) H Nicole Graves MD Sep 04, 2019 10:28
--- NOTE | 2019-09-04 10:30 | Progress Note ---
DATE: 09/03/2019 SUBJECTIVE: The patient is afebrile and hemodynamically stable. PHYSICAL EXAMINATION: VITAL SIGNS: Blood pressure is 148/56, his pulse is 70, respirations at 15, temperature 98.5. HEENT: Eyes were normal. ENT, mucous membranes were moist and intact. NECK: Supple with no JVD without lymph nodes. LUNGS: Clear. HEART: Normal sounds with irregular beats. There is no tachycardia at rest. ABDOMEN: Soft, nontender, with normal bowel sounds. EXTREMITIES: Warm without cyanosis, clubbing, or edema. LABORATORY AND DIAGNOSTIC DATA: His hemoglobin is 10.8, hematocrit is 32 with MCV of 92, WBC 9.7, and platelets are 300. His BUN and creatinine are 15 and 0.8 respectively. His sodium is 137, potassium 3.5, chloride 109, CO2 is 32. Calcium is 8.7, phosphorus is 3.2, magnesium is 2.2. SGOT and SGPT are elevated. Alkaline phosphatase is normal. Albumin is 2.1 and total protein is 5.2. Chest x-ray showing bilateral pleural effusions, unchanged on the left and increased on the right. 02:39 infiltration is of low probability, but not completely excluded. IMPRESSION: The patient underwent weaning trial today. He was able to maintain three hours without difficulty. This patient has 03:18 congestive heart failure. The patient 03:33 furosemide diuretic. However, until yesterday the patient's BNP was still in the 7000. Repeat laboratory tests will be done in a.m. Modesta Mulligan M.D. DR: Sravani JOB#: [id number] CC:
--- NOTE | 2019-09-04 12:57 | Nephrology Progress Note ---
Assessment/Plan Problem List: (1) AUREA (acute kidney injury) Assessment: Serum creatinine rising (2) Cardiopulmonary arrest (3) Respiratory failure (4) Cardiomyopathy (5) Obesity (BMI 30.0-34.9) (6) DMII (diabetes mellitus, type 2) Assessment Acute Renal Failure : AUREA Most likely due to cardiorespiratory arrest and episode of hypotension. Patient also has cardiomyopathy with Ej Fx of 40 % on admission Obese : BMI 34.4 ? DM Other Dx (1) Cardiopulmonary arrest (2) Nosocomial pneumonia (3) Acute respiratory failure (4) COPD (chronic obstructive pulmonary disease) (5) Atrial fibrillation (6) Dementia with behavioral disturbance (7) CAD (coronary artery disease) Plan Patient is now reintubated and back in ICU Today's labs reviewed D5 W IV fluids for hypernatremia as needed pressors are off now patient's condition somewhat more stable In ICU He is intubated ventilator, weaning is being tried His blood pressure is more stable Overall he is still doing poorly Adjust blood pressure medications Stress dose of steroids which we will start tapering today Previously Monitor renal parameters. Serum creatinine improved Monitor urine output. Urine output improved. Avoid nephrotoxics. Weaning as possible. Remains intubated at this time. Correct electrolyte imbalances. Change tube feeding to Glucerna. Subjective ROS Limited/Unobtainable: Yes Objective Objective Last 24 Hour Vital Signs Date Time Temp Pulse Resp B/P (MAP) Pulse Ox O2 Delivery O2 Flow Rate FiO2 09/04/19 12:00 72 09/04/19 11:00 76 20 141/71 (94) 96 09/04/19 10:51 72 15 35 09/04/19 10:00 76 18 129/55 (79) 97 09/04/19 09:19 98 09/04/19 09:16 81 23 35 35 09/04/19 09:13 81 17 35 09/04/19 09:00 80 20 152/55 (87) 96 09/04/19 08:00 35 09/04/19 08:00 63 09/04/19 08:00 99.4 75 15 149/50 (83) 96 09/04/19 08:00 Mechanical Ventilator Mechanical Ventilator 09/04/19 07:05 79 19 35 09/04/19 07:00 72 14 140/50 (80) 95 09/04/19 06:00 81 21 157/76 (103) 09/04/19 05:25 72 15 35 09/04/19 05:00 73 14 150/52 (84) 96 09/04/19 04:00 98.5 78 20 144/57 (86) 96 09/04/19 04:00 74 09/04/19 04:00 35 09/04/19 04:00 Mechanical Ventilator Mechanical Ventilator Mechanical Ventilator 09/04/19 03:20 77 17 35 09/04/19 03:00 72 15 139/50 (79) 96 09/04/19 02:00 71 15 141/45 (77) 96 09/04/19 01:30 74 18 152/52 (85) 99 09/04/19 01:28 76 16 35 09/04/19 01:00 76 17 150/56 (87) 97 09/04/19 00:30 71 15 135/50 (78) 96 09/04/19 00:00 73 15 138/53 (81) 95 09/04/19 00:00 98.8 73 15 138/53 (81) 95 09/04/19 00:00 Mechanical Ventilator Mechanical Ventilator Mechanical Ventilator 09/04/19 00:00 35 09/04/19 00:00 70 09/03/19 23:30 76 09/03/19 23:04 73 15 35 09/03/19 23:00 72 16 138/52 (80) 96 09/03/19 22:30 71 15 140/50 (80) 96 09/03/19 22:00 71 16 137/50 (79) 96 09/03/19 21:30 71 16 143/62 (89) 96 09/03/19 21:30 72 15 35 09/03/19 21:00 75 18 152/53 (86) 97 09/03/19 20:30 70 15 136/50 (78) 96 09/03/19 20:00 35 09/03/19 20:00 70 09/03/19 20:00 Mechanical Ventilator Mechanical Ventilator Mechanical Ventilator 09/03/19 20:00 98.6 73 18 138/52 (80) 97 09/03/19 19:38 73 19 35 09/03/19 19:30 70 14 141/47 (78) 96 09/03/19 19:00 73 18 143/52 (82) 09/03/19 18:00 70 17 135/52 (79) 09/03/19 17:00 74 19 35 09/03/19 17:00 76 15 149/51 (83) 96 09/03/19 16:00 Mechanical Ventilator Mechanical Ventilator Mechanical Ventilator 09/03/19 16:00 65 09/03/19 16:00 98.5 69 15 151/50 (83) 97 09/03/19 16:00 35 09/03/19 15:20 76 19 35 09/03/19 15:00 70 15 148/56 (86) 96 09/03/19 14:00 73 16 165/54 (91) 95 09/03/19 13:29 70 14 35 09/03/19 13:00 75 17 152/54 (86) 95 Intake and Output 09/03/19 09/04/19 19:00 07:00 Intake Total 690 ml 690 ml Output Total 470 ml 420 ml Balance 220 ml 270 ml Free Water 30 ml 30 ml Tube Feeding 660 ml 660 ml Output Urine Total 470 ml 420 ml Laboratory Tests 09/04/19 05:00: White Blood Count 6.1, Red Blood Count 3.10L, Hemoglobin 9.6L, Hematocrit 28.8L , Mean Corpuscular Volume 93, Mean Corpuscular Hemoglobin 31.1H, Mean Corpuscular Hemoglobin Concent 33.4, Red Cell Distribution Width 13.6, Platelet Count 271, Mean Platelet Volume 4.9L, Neutrophils (%) (Auto) 71.9, Lymphocytes ( %) (Auto) 17.8L, Monocytes (%) (Auto) 6.2, Eosinophils (%) (Auto) 3.5H, Basophils (%) (Auto) 0.6, Sodium Level 147H, Potassium Level 3.3L, Chloride Level 111H, Carbon Dioxide Level 33H, Anion Gap 3L, Blood Urea Nitrogen 44H, Creatinine 0.6, Estimat Glomerular Filtration Rate > 60, Glucose Level 122H, Calcium Level 8.4L, Pro-B-Type Natriuretic Peptide 1838H Height (Feet): 5 Height (Inches): 6.00 Weight (Pounds): 200 EENT: other - Intubated and vented Cardiovascular: normal rate Respiratory/Chest: decreased breath sounds Abdomen: distended Objective no change Yunior Sexton MD Sep 04, 2019 12:57
--- NOTE | 2019-09-04 14:29 | Surgery Progress Note ---
Surgery Progress Note Subjective Additional Comments ill appearing on support labs noted Objective Last 24 Hour Vital Signs Date Time Temp Pulse Resp B/P (MAP) Pulse Ox O2 Delivery O2 Flow Rate FiO2 09/04/19 14:00 71 18 135/57 (83) 96 09/04/19 13:00 74 18 146/51 (82) 94 09/04/19 12:00 72 09/04/19 12:00 35 09/04/19 12:00 98.9 72 16 127/50 (75) 95 09/04/19 11:00 76 20 141/71 (94) 96 09/04/19 10:51 72 15 35 09/04/19 10:00 76 18 129/55 (79) 97 09/04/19 09:19 98 09/04/19 09:16 81 23 35 35 09/04/19 09:13 81 17 35 09/04/19 09:00 80 20 152/55 (87) 96 09/04/19 08:00 35 09/04/19 08:00 63 09/04/19 08:00 99.4 75 15 149/50 (83) 96 09/04/19 08:00 Mechanical Ventilator Mechanical Ventilator 09/04/19 07:05 79 19 35 09/04/19 07:00 72 14 140/50 (80) 95 09/04/19 06:00 81 21 157/76 (103) 09/04/19 05:25 72 15 35 09/04/19 05:00 73 14 150/52 (84) 96 09/04/19 04:00 98.5 78 20 144/57 (86) 96 09/04/19 04:00 74 09/04/19 04:00 35 09/04/19 04:00 Mechanical Ventilator Mechanical Ventilator Mechanical Ventilator 09/04/19 03:20 77 17 35 09/04/19 03:00 72 15 139/50 (79) 96 09/04/19 02:00 71 15 141/45 (77) 96 09/04/19 01:30 74 18 152/52 (85) 99 09/04/19 01:28 76 16 35 09/04/19 01:00 76 17 150/56 (87) 97 09/04/19 00:30 71 15 135/50 (78) 96 09/04/19 00:00 73 15 138/53 (81) 95 09/04/19 00:00 98.8 73 15 138/53 (81) 95 09/04/19 00:00 Mechanical Ventilator Mechanical Ventilator Mechanical Ventilator 09/04/19 00:00 35 09/04/19 00:00 70 09/03/19 23:30 76 09/03/19 23:04 73 15 35 09/03/19 23:00 72 16 138/52 (80) 96 09/03/19 22:30 71 15 140/50 (80) 96 09/03/19 22:00 71 16 137/50 (79) 96 09/03/19 21:30 71 16 143/62 (89) 96 09/03/19 21:30 72 15 35 09/03/19 21:00 75 18 152/53 (86) 97 09/03/19 20:30 70 15 136/50 (78) 96 09/03/19 20:00 35 09/03/19 20:00 70 09/03/19 20:00 Mechanical Ventilator Mechanical Ventilator Mechanical Ventilator 09/03/19 20:00 98.6 73 18 138/52 (80) 97 09/03/19 19:38 73 19 35 09/03/19 19:30 70 14 141/47 (78) 96 09/03/19 19:00 73 18 143/52 (82) 09/03/19 18:00 70 17 135/52 (79) 09/03/19 17:00 74 19 35 09/03/19 17:00 76 15 149/51 (83) 96 09/03/19 16:00 Mechanical Ventilator Mechanical Ventilator Mechanical Ventilator 09/03/19 16:00 65 09/03/19 16:00 98.5 69 15 151/50 (83) 97 09/03/19 16:00 35 09/03/19 15:20 76 19 35 09/03/19 15:00 70 15 148/56 (86) 96 I&O Intake and Output 09/03/19 09/04/19 19:00 07:00 Intake Total 690 ml 690 ml Output Total 470 ml 420 ml Balance 220 ml 270 ml Free Water 30 ml 30 ml Tube Feeding 660 ml 660 ml Output Urine Total 470 ml 420 ml Dressing: other Wound: other Drains: other Cardiovascular: RSR Respiratory: decreased breath sounds Abdomen: soft, non-tender, present bowel sounds Extremities: no cyanosis Laboratory Tests Test 09/04/19 05:00 White Blood Count 6.1 K/UL (4.8-10.8) Red Blood Count 3.10 M/UL (4.70-6.10) L Hemoglobin 9.6 G/DL (14.2-18.0) L Hematocrit 28.8 % (42.0-52.0) L Mean Corpuscular Volume 93 FL (80-99) Mean Corpuscular Hemoglobin 31.1 PG (27.0-31.0) H Mean Corpuscular Hemoglobin Concent 33.4 G/DL (32.0-36.0) Red Cell Distribution Width 13.6 % (11.6-14.8) Platelet Count 271 K/UL (150-450) Mean Platelet Volume 4.9 FL (6.5-10.1) L Neutrophils (%) (Auto) 71.9 % (45.0-75.0) Lymphocytes (%) (Auto) 17.8 % (20.0-45.0) L Monocytes (%) (Auto) 6.2 % (1.0-10.0) Eosinophils (%) (Auto) 3.5 % (0.0-3.0) H Basophils (%) (Auto) 0.6 % (0.0-2.0) Sodium Level 147 MMOL/L (136-145) H Potassium Level 3.3 MMOL/L (3.5-5.1) L Chloride Level 111 MMOL/L (98-107) H Carbon Dioxide Level 33 MMOL/L (21-32) H Anion Gap 3 mmol/L (5-15) L Blood Urea Nitrogen 44 mg/dL (7-18) H Creatinine 0.6 MG/DL (0.55-1.30) Estimat Glomerular Filtration Rate > 60 mL/min (>60) Glucose Level 122 MG/DL (74-106) H Calcium Level 8.4 MG/DL (8.5-10.1) L Pro-B-Type Natriuretic Peptide 1838 pg/mL (0-125) H Plan Problems: (1) Nosocomial pneumonia (2) AUREA (acute kidney injury) (3) Cardiomyopathy (4) Obesity (BMI 30.0-34.9) (5) DMII (diabetes mellitus, type 2) (6) Cardiac LV ejection fraction 40% (7) Pulmonary edema (8) Cardiopulmonary arrest Assessment & Plan: Cardiopulmonary arrest septic requiring urgent emergency line placement for pressors and fluids and meds Please see procedure report Full examination performed no other surgical issues found at this time etiology unknown likely surgical in nature Antibiotics fluids Pressors Vent weaning trials right groin site okay. no hematoma. no bleeding left arm picc okay NG tube is present in good position. A partial left lateral decubitus view of the abdomen performed as well as a supine view. The left lateral decubitus view is not adequate as the area of interest which would be the nondependent right side of the abdomen, which is the area of interest was not imaged and is beyond the field-of -view of the x-ray. Bowel gas pattern appears nonobstructive on the basis of the partial images obtained. off pressors labs reviewed cont tube feeds Unable to wean from ventilator. Labs noted ABG noted imaging reviewed cont weaning. if possible extubate otherwise will consider trach extubated improving monitor in ICU for now downgrade re-intubated on vent support on pressors wean pressors no family to consent for trach as will likely be needed vs comfort care / change of code status trach not emergency at this time will monitor * Interval removal of endotracheal tube. NG tube and left arm PICC line remain in place. * Apparent worsening of aeration with increasing hazy opacities in the bilateral lower lungs which may in part be related to artifact from patient positioning however layering bilateral pleural effusions and bilateral airspace disease not excluded. Follow-up recommended. (9) Respiratory failure (10) History of hypertension (11) COPD (chronic obstructive pulmonary disease) (12) CAD (coronary artery disease) (13) Atrial fibrillation (14) Dementia with behavioral disturbance (15) Upper respiratory infection (16) Acute respiratory failure (17) Dyspnea (18) UTI (urinary tract infection) Prosper Hummel Sep 04, 2019 14:29
[2019-09-04] MEDS ORDERED: NS 275ml ONE ×2 (14:33→14:57)
[2019-09-04] MEDS ORDERED: Tubing IV Secondary IV ONE (14:33)
[2019-09-04] MEDS ORDERED: D5W 275ml ONE (14:57)
[2019-09-04] MEDS ORDERED: Sterile Water Irrig 1000ml IRRIG ONE (14:57)
--- NOTE | 2019-09-04 15:16 | Infectious Diseases Prog Note ---
Assessment/Plan Assessment/Plan ASSESSMENT: The patient is a 79-year-old male with: Multiple reintubations, likely cannot maintain airway Afebrile No leukocytosis Less likely pneumonia 08/31 CXR: There is a hazy opacity at the left lung base again noted unchanged. Mild linear densities are seen in the right midlung which may be atelectasis or scarring. 09/02 CXR: Hazy basilar opacities, most likely due to overlying soft tissue shadows but hazy infiltrates also possible. If the latter, stable on the left, new or increased on the right. Stable and satisfactory tube positions Leukocytosis; Sp Fever , sp Sepsis, Sp Pneumonia ( probable asp), Sp RX -08/28 CXR: Interval removal of endotracheal tube. NG tube and left arm PICC line remain in place. Apparent worsening of aeration with increasing hazy opacities in the bilateral lower lungs which may in part be related to artifact from patient positioning however layering bilateral pleural effusions and bilateral airspace disease not excluded. -08/13 Scx: MDR-ACB (Tygacil LANI: 4) - CXR: 1. Streaky opacities in the right lower lung may represent atelectasis versus scarring. Left basilar opacity may represent atelectasis. Component of pneumonia is not excluded. Pulmonary vasculature congestion. -08/01 ucx NTD - sp cx: nl anastacio Urinary tract infection, SP Rx 08/31 SP rapid response and reintubation 08/17 Sp code blue and intubation , extubated 08/27 07/31 Sp Code blue and intubation , sp extubation 08/12 , Hyperlipidemia. COPD. History of GERD. History of encephalopathy. History of CAD/WA. History of cardiomyopathy. Hypertension. PLAN: Continue to monitor off abx -08/28 SP Colistin INH (MDR-ACB) # 14 - 08/22/19 SP Merrem 10 - 08/14 SP IV Vanco # 4 -3 SP Zosyn and IV Vanco # 7/ , -08/01 SP Rocephin day # 10 - 07/31 sp sp Dox # 6 Monitor CBC. Monitor BMP. monitor temp and VS Monitor chest x-ray cont ICU Support DW RN Subjective Allergies: Coded Allergies: No Known Allergies (Unverified , 06/03/17) Subjective Afebrile. FiO2 35% frothy oral secretions Objective Vital Signs Last 24 Hour Vital Signs Date Time Temp Pulse Resp B/P (MAP) Pulse Ox O2 Delivery O2 Flow Rate FiO2 09/04/19 14:00 71 18 135/57 (83) 96 09/04/19 13:00 74 18 146/51 (82) 94 09/04/19 12:00 72 09/04/19 12:00 35 09/04/19 12:00 98.9 72 16 127/50 (75) 95 09/04/19 12:00 Mechanical Ventilator Mechanical Ventilator 09/04/19 11:00 76 20 141/71 (94) 96 09/04/19 10:51 72 15 35 09/04/19 10:00 76 18 129/55 (79) 97 09/04/19 09:19 98 09/04/19 09:16 81 23 35 35 09/04/19 09:13 81 17 35 09/04/19 09:00 80 20 152/55 (87) 96 09/04/19 08:00 35 09/04/19 08:00 63 09/04/19 08:00 99.4 75 15 149/50 (83) 96 09/04/19 08:00 Mechanical Ventilator Mechanical Ventilator 09/04/19 07:05 79 19 35 09/04/19 07:00 72 14 140/50 (80) 95 09/04/19 06:00 81 21 157/76 (103) 09/04/19 05:25 72 15 35 09/04/19 05:00 73 14 150/52 (84) 96 09/04/19 04:00 98.5 78 20 144/57 (86) 96 09/04/19 04:00 74 09/04/19 04:00 35 09/04/19 04:00 Mechanical Ventilator Mechanical Ventilator Mechanical Ventilator 09/04/19 03:20 77 17 35 09/04/19 03:00 72 15 139/50 (79) 96 09/04/19 02:00 71 15 141/45 (77) 96 09/04/19 01:30 74 18 152/52 (85) 99 09/04/19 01:28 76 16 35 09/04/19 01:00 76 17 150/56 (87) 97 09/04/19 00:30 71 15 135/50 (78) 96 09/04/19 00:00 73 15 138/53 (81) 95 09/04/19 00:00 98.8 73 15 138/53 (81) 95 09/04/19 00:00 Mechanical Ventilator Mechanical Ventilator Mechanical Ventilator 09/04/19 00:00 35 09/04/19 00:00 70 09/03/19 23:30 76 09/03/19 23:04 73 15 35 09/03/19 23:00 72 16 138/52 (80) 96 09/03/19 22:30 71 15 140/50 (80) 96 09/03/19 22:00 71 16 137/50 (79) 96 09/03/19 21:30 71 16 143/62 (89) 96 09/03/19 21:30 72 15 35 09/03/19 21:00 75 18 152/53 (86) 97 09/03/19 20:30 70 15 136/50 (78) 96 09/03/19 20:00 35 09/03/19 20:00 70 09/03/19 20:00 Mechanical Ventilator Mechanical Ventilator Mechanical Ventilator 09/03/19 20:00 98.6 73 18 138/52 (80) 97 09/03/19 19:38 73 19 35 09/03/19 19:30 70 14 141/47 (78) 96 09/03/19 19:00 73 18 143/52 (82) 09/03/19 18:00 70 17 135/52 (79) 09/03/19 17:00 74 19 35 09/03/19 17:00 76 15 149/51 (83) 96 09/03/19 16:00 Mechanical Ventilator Mechanical Ventilator Mechanical Ventilator 09/03/19 16:00 65 09/03/19 16:00 98.5 69 15 151/50 (83) 97 09/03/19 16:00 35 09/03/19 15:20 76 19 35 Height (Feet): 5 Height (Inches): 6.00 Weight (Pounds): 200 Objective Gen: NAD HEENT: ETT CV: RRR. no rubs Resp: RRR. equal chest rise. no wheezes. Abd: nondistended. no palpable masses Neuro: not following commands Laboratory Tests Test 09/04/19 05:00 White Blood Count 6.1 K/UL (4.8-10.8) Red Blood Count 3.10 M/UL (4.70-6.10) L Hemoglobin 9.6 G/DL (14.2-18.0) L Hematocrit 28.8 % (42.0-52.0) L Mean Corpuscular Volume 93 FL (80-99) Mean Corpuscular Hemoglobin 31.1 PG (27.0-31.0) H Mean Corpuscular Hemoglobin Concent 33.4 G/DL (32.0-36.0) Red Cell Distribution Width 13.6 % (11.6-14.8) Platelet Count 271 K/UL (150-450) Mean Platelet Volume 4.9 FL (6.5-10.1) L Neutrophils (%) (Auto) 71.9 % (45.0-75.0) Lymphocytes (%) (Auto) 17.8 % (20.0-45.0) L Monocytes (%) (Auto) 6.2 % (1.0-10.0) Eosinophils (%) (Auto) 3.5 % (0.0-3.0) H Basophils (%) (Auto) 0.6 % (0.0-2.0) Sodium Level 147 MMOL/L (136-145) H Potassium Level 3.3 MMOL/L (3.5-5.1) L Chloride Level 111 MMOL/L (98-107) H Carbon Dioxide Level 33 MMOL/L (21-32) H Anion Gap 3 mmol/L (5-15) L Blood Urea Nitrogen 44 mg/dL (7-18) H Creatinine 0.6 MG/DL (0.55-1.30) Estimat Glomerular Filtration Rate > 60 mL/min (>60) Glucose Level 122 MG/DL (74-106) H Calcium Level 8.4 MG/DL (8.5-10.1) L Pro-B-Type Natriuretic Peptide 1838 pg/mL (0-125) H Current Medications Medications (Trade) Dose Ordered Sig/Amaris Route PRN Reason Start Time Stop Time Status Last Admin Dose Admin Acetaminophen (Tylenol) 650 mg Q4H PRN NG Mild Pain/Temp > 100.5 09/01/19 10:20 10/01/19 10:19 Albuterol/ Ipratropium (Albuterol/ Ipratropium) 3 ml Q4H PRN HHN Shortness of Breath 09/01/19 10:20 09/06/19 10:19 Amiodarone HCl (Cordarone) 200 mg DAILY NG 09/01/19 10:22 11/30/19 10:21 09/04/19 09:24 Atorvastatin Calcium (Lipitor) 40 mg BEDTIME NG 09/01/19 21:00 09/13/19 20:59 09/03/19 20:50 Chlorhexidine Gluconate (Kamila-Hex 2%) 1 applic DAILY@2000 TOPIC 09/01/19 20:00 09/17/19 19:59 09/03/19 20:48 Clopidogrel Bisulfate (Plavix) 75 mg DAILY NG 09/01/19 10:22 10/01/19 10:21 09/04/19 09:25 Heparin Sodium (Porcine) (Heparin 5000 units/ml) 5,000 units EVERY 12 HOURS SUBQ 09/01/19 10:23 10/16/19 10:22 09/04/19 09:25 Hydralazine HCl (Apresoline) 25 mg Q6HR PRN NG SBP above 160 09/02/19 01:45 12/01/19 01:44 Lorazepam (Ativan 2mg/ml 1ml) 2 mg Q4H PRN IV For Anxiety 09/01/19 10:20 09/08/19 10:19 09/02/19 03:18 Morphine Sulfate (Morphine Sulfate) 2 mg Q4H PRN IVP For Pain 09/01/19 10:21 09/08/19 10:20 Pantoprazole (Protonix) 40 mg EVERY 12 HOURS IVP 09/01/19 10:23 10/01/19 10:22 09/04/19 09:24 Rafy Page MD Sep 04, 2019 15:16
--- NOTE | 2019-09-04 17:59 | Progress Note ---
DATE: 09/04/2019 CARDIOLOGY PROGRESS NOTE SUBJECTIVE: The patient remains on ventilator support via endotracheal tube. He has an NG tube in place. There is a PICC line in the left upper extremity. Blood pressure parameters remained stable. Monitor reveals sinus rhythm with paroxysms of atrial fibrillation. PHYSICAL EXAMINATION: LUNGS: Bilateral breath sounds. HEART: Regular rhythm and rate. Normal S1, paradoxically split S2. ABDOMEN: Soft and nontender. EXTREMITIES: Trace edema. LABORATORY AND DIAGNOSTIC DATA: White count 6, hemoglobin 9.6. Sodium 147, potassium 3.3, bicarb 33, BUN 44, creatinine 0.6. Pro-natriuretic peptide 1838. IMPRESSION: 1. Respiratory failure, recurrent. 2. Prerenal azotemia. 3. Dehydration. 4. Hypernatremia. 5. Hypokalemia. 6. Contraction alkalosis. 7. Acute on chronic systolic and diastolic congestive heart failure significantly improved. 8. Severe protein-calorie malnutrition. 9. Paroxysmal atrial fibrillation. 10. Ischemic cardiomyopathy status post non ST-elevation myocardial infarction. PLAN: 1. Free water replacement. 2. Hold diuretics for now. 3. We will need tracheostomy. 4. Titrate antihypertensive. 5. Amiodarone for arrhythmia suppression. Saeed Sim M.D. DR: Bruno JOB#: [id number] CC:
[2019-09-04] MEDS: Dyna-Hex 2% Top Sol 2oz TOPIC SCH (21:08)
[2019-09-04] MEDS: Atorvastatin 20mg tab NG SCH (21:09)
[2019-09-05] VITALS (38 sets, daily range): BP systolic 112–167; BP diastolic 36–95
--- NOTE | 2019-09-05 01:15 | Progress Note ---
DATE: 09/04/2019 SUBJECTIVE: Patient is afebrile and hemodynamically stable. PHYSICAL EXAMINATION: VITAL SIGNS: Blood pressure 147/60, his pulse is 73, respirations are 16, temperature was 98.6. HEENT: Eyes were normal. ENT, mucous membranes were moist and intact. NECK: Supple with no JVD without lymph nodes. LUNGS: Clear HEART: Normal sounds with regular beat. ABDOMEN: Soft and nontender with normal bowel sounds. EXTREMITIES: Warm without cyanosis, clubbing, or edema. LABORATORY AND DIAGNOSTIC DATA: Hemoglobin is 9.6, hematocrit 28.8 with MCV of 93, WBC of 6.1 and platelets 271. His BUN and creatinine are 44 and 0.6 respectively. His sodium is 147, potassium 3.3, chloride 99, and CO2 is 33. His pro-BNP is 1838, it was 7100 on August 31. His chest x-ray from yesterday revealed hazy infiltrate with was stable on the left and increased on the right. Patient could not tolerate weaning today. Repeat laboratory tests will be done in a.m. The patient is on antibiotic. He is not tachycardic and his WBCs are normal. IMPRESSION: He is afebrile. . Repeat laboratory tests will be done in the a.m. Modesta Mulligan M.D. DR: SOFIA JOB#: [id number] CC:
[2019-09-05 05:25] LABS: BASOPHILS % (AUTO) 0.6 % (0.0-2.0); EOSINOPHILS % (AUTO) 3.7 % (0.0-3.0); HEMOGLOBIN 10.3 G/DL (14.2-18.0); LYMPHOCYTES % (AUTO) 17.6 % (20.0-45.0); MEAN CORPUSCULAR VOLUME 93 FL (80-99); MONOCYTES % (AUTO) 6.6 % (1.0-10.0); NEUTROPHILS % (AUTO) 71.4 % (45.0-75.0); PLATELET COUNT 227 K/UL (150-450); RED BLOOD COUNT 3.32 M/UL (4.70-6.10); RED CELL DISTRIBUTION WIDTH 13.5 % (11.6-14.8)
[2019-09-05 05:59] LABS: ALANINE AMINOTRANSFERASE 65 U/L (12-78); ALBUMIN 2.1 G/DL (3.4-5.0); ALBUMIN/GLOBULIN RATIO 0.7 (1.0-2.7); ALKALINE PHOSPHATASE 79 U/L (46-116); ANION GAP 5 mmol/L (5-15); ASPARTATE AMINO TRANSFERASE 28 U/L (15-37); BILIRUBIN,TOTAL 0.6 MG/DL (0.2-1.0); BLOOD UREA NITROGEN 39 mg/dL (7-18); CALCIUM 8.5 MG/DL (8.5-10.1); CARBON DIOXIDE 31 MMOL/L (21-32); CHLORIDE 110 MMOL/L (98-107); CREATININE 0.6 MG/DL (0.55-1.30); PHOSPHORUS 3.5 MG/DL (2.5-4.9); POTASSIUM 3.7 MMOL/L (3.5-5.1); SODIUM 146 MMOL/L (136-145)
[2019-09-05] MEDS: Amiodarone 200mg tab NG SCH (08:46)
[2019-09-05] MEDS: Pantoprazole Inj IVP SCH ×2 (08:48→21:03)
[2019-09-05] MEDS: Heparin 5000 units/ml inj SUBQ SCH ×2 (08:50→21:04)
--- NOTE | 2019-09-05 09:55 | Nephrology Progress Note ---
Assessment/Plan Problem List: (1) AUREA (acute kidney injury) Assessment: Serum creatinine rising (2) Cardiopulmonary arrest (3) Respiratory failure (4) Cardiomyopathy (5) Obesity (BMI 30.0-34.9) (6) DMII (diabetes mellitus, type 2) Assessment Acute Renal Failure : AUREA Most likely due to cardiorespiratory arrest and episode of hypotension. Patient also has cardiomyopathy with Ej Fx of 40 % on admission Obese : BMI 34.4 ? DM Other Dx (1) Cardiopulmonary arrest (2) Nosocomial pneumonia (3) Acute respiratory failure (4) COPD (chronic obstructive pulmonary disease) (5) Atrial fibrillation (6) Dementia with behavioral disturbance (7) CAD (coronary artery disease) Plan Today's labs reviewed D5 W IV fluids for hypernatremia as needed pressors are off now patient's condition somewhat more stable In ICU He is intubated ventilator, weaning is being tried His blood pressure is more stable Overall he is still doing poorly Adjust blood pressure medications Stress dose of steroids which we will start tapering today Previously Monitor renal parameters. Serum creatinine improved Monitor urine output. Urine output improved. Avoid nephrotoxics. Weaning as possible. Remains intubated at this time. Correct electrolyte imbalances. Change tube feeding to Glucerna. Subjective ROS Limited/Unobtainable: Yes Objective Objective Last 24 Hour Vital Signs Date Time Temp Pulse Resp B/P (MAP) Pulse Ox O2 Delivery O2 Flow Rate FiO2 09/05/19 09:30 72 18 35 09/05/19 07:31 69 14 35 09/05/19 06:00 71 14 124/53 (76) 98 09/05/19 06:00 72 16 152/61 (91) 99 09/05/19 05:14 77 18 35 09/05/19 05:00 71 16 130/44 (72) 99 09/05/19 04:30 73 17 121/47 (71) 99 09/05/19 04:15 71 15 115/47 (69) 99 09/05/19 04:00 76 09/05/19 04:00 74 20 123/51 (75) 09/05/19 04:00 35 09/05/19 04:00 98.6 74 20 123/51 (75) 09/05/19 04:00 Mechanical Ventilator Mechanical Ventilator 09/05/19 03:45 70 14 123/50 (74) 98 09/05/19 03:30 69 14 112/36 (61) 98 09/05/19 03:15 75 17 129/59 (82) 09/05/19 03:00 73 16 157/67 (97) 99 09/05/19 03:00 73 16 157/67 (97) 99 09/05/19 02:45 74 17 157/61 (93) 98 09/05/19 02:37 74 18 35 09/05/19 02:30 72 16 155/65 (95) 97 09/05/19 02:15 69 16 139/60 (86) 97 09/05/19 02:00 70 15 151/59 (89) 96 09/05/19 02:00 70 15 151/59 (89) 96 09/05/19 01:45 71 20 143/67 (92) 99 09/05/19 01:30 64 14 113/95 (101) 97 09/05/19 01:15 69 14 133/55 (81) 95 09/05/19 01:00 72 16 130/53 (78) 95 09/05/19 01:00 72 16 130/53 (78) 95 09/05/19 01:00 72 16 130/53 (78) 95 09/05/19 00:45 73 16 128/63 (84) 95 09/05/19 00:36 74 18 35 09/05/19 00:30 74 15 135/54 (81) 96 09/05/19 00:15 72 14 133/52 (79) 95 09/05/19 00:00 72 14 133/56 (81) 96 09/05/19 00:00 Mechanical Ventilator Mechanical Ventilator 09/05/19 00:00 73 09/05/19 00:00 35 09/05/19 00:00 98.4 72 14 133/56 (81) 96 09/04/19 23:15 68 25 35 09/04/19 23:00 77 18 158/63 (94) 98 09/04/19 22:00 73 16 147/60 (89) 95 09/04/19 21:15 73 17 35 09/04/19 21:00 73 14 145/56 (85) 96 09/04/19 20:00 98.6 77 19 165/59 (94) 98 09/04/19 20:00 76 09/04/19 20:00 Mechanical Ventilator Mechanical Ventilator 09/04/19 20:00 35 09/04/19 19:00 72 14 149/56 (87) 95 09/04/19 19:00 72 15 149/56 (87) 96 09/04/19 19:00 71 14 35 09/04/19 18:00 76 18 146/52 (83) 96 09/04/19 17:00 72 18 160/64 (96) 98 09/04/19 16:56 73 16 35 09/04/19 16:00 73 09/04/19 16:00 99.5 76 18 111/44 (66) 98 09/04/19 16:00 35 09/04/19 16:00 Mechanical Ventilator Mechanical Ventilator 09/04/19 15:00 77 18 129/57 (81) 97 09/04/19 14:45 75 14 35 09/04/19 14:00 71 18 135/57 (83) 96 09/04/19 13:00 74 18 146/51 (82) 94 09/04/19 12:52 74 14 35 09/04/19 12:00 72 09/04/19 12:00 35 09/04/19 12:00 98.9 72 16 127/50 (75) 95 09/04/19 12:00 Mechanical Ventilator Mechanical Ventilator 09/04/19 11:00 76 20 141/71 (94) 96 09/04/19 10:51 72 15 35 09/04/19 10:00 76 18 129/55 (79) 97 Intake and Output 09/04/19 09/05/19 19:00 07:00 Intake Total 970 ml 685 ml Output Total 490 ml 500 ml Balance 480 ml 185 ml Free Water 90 ml 80 ml IV Total 200 ml Tube Feeding 660 ml 605 ml Other 20 ml Output Urine Total 490 ml 500 ml # Bowel Movements 1 Laboratory Tests 09/05/19 04:58: White Blood Count 6.0, Red Blood Count 3.32L, Hemoglobin 10.3L, Hematocrit 31.0L , Mean Corpuscular Volume 93, Mean Corpuscular Hemoglobin 31.0, Mean Corpuscular Hemoglobin Concent 33.3, Red Cell Distribution Width 13.5, Platelet Count 227, Mean Platelet Volume 5.3L, Neutrophils (%) (Auto) 71.4, Lymphocytes ( %) (Auto) 17.6L, Monocytes (%) (Auto) 6.6, Eosinophils (%) (Auto) 3.7H, Basophils (%) (Auto) 0.6, Sodium Level 146H, Potassium Level 3.7, Chloride Level 110H, Carbon Dioxide Level 31, Anion Gap 5, Blood Urea Nitrogen 39H, Creatinine 0.6, Estimat Glomerular Filtration Rate > 60, Glucose Level 138H, Calcium Level 8.5, Phosphorus Level 3.5, Magnesium Level 1.9, Total Bilirubin 0.6, Aspartate Amino Transf (AST/SGOT) 28, Alanine Aminotransferase (ALT/SGPT) 65, Alkaline Phosphatase 79, Total Protein 5.0L, Albumin 2.1L, Globulin 2.9, Albumin/Globulin Ratio 0.7L 09/05/19 07:30: Arterial Blood pH 7.437, Arterial Blood Partial Pressure CO2 46.2H, Arterial Blood Partial Pressure O2 86.2, Arterial Blood HCO3 30.5H, Arterial Blood Oxygen Saturation 95.9, Arterial Blood Base Excess 5.5H, Joe Test Positive Height (Feet): 5 Height (Inches): 6.00 Weight (Pounds): 205 General Appearance: no apparent distress EENT: other - Intubated and on ventilator Cardiovascular: normal rate Respiratory/Chest: decreased breath sounds Abdomen: distended Objective no change Yunior Sexton MD Sep 05, 2019 09:55
--- NOTE | 2019-09-05 11:53 | Pulmonolgy Critical Care Note ---
Critical Care - Asmt/Plan Problems: (1) Acute respiratory failure Assessment & Plan: got reintubated (2) Cardiac LV ejection fraction 40% (3) Cardiopulmonary arrest (4) Nosocomial pneumonia (5) Atrial fibrillation Assessment & Plan: controlled (6) Pulmonary edema (7) COPD (chronic obstructive pulmonary disease) (8) CAD (coronary artery disease) (9) Dementia with behavioral disturbance Respiratory: monitor respiratory rate, adjust FIO2, CXR Cardiac: continue pressors, continue to monitor HR/BP Renal: F/U I&O, keep IV fluid, check electrolytes Infectious Disease: check cultures Gastrointestinal: continue feedings/current rate Endocrine: monitor blood sugar Neurologic: PRN Ativan Affect: PRN ativan Disposition: keep in ICU Notes Reviewed: 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, 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, 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 Discussed with: nurses, 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 - Objective Last 24 Hour Vital Signs Date Time Temp Pulse Resp B/P (MAP) Pulse Ox O2 Delivery O2 Flow Rate FiO2 09/05/19 10:22 76 18 35 09/05/19 10:17 96 09/05/19 09:30 72 18 35 09/05/19 08:00 35 09/05/19 07:31 69 14 35 09/05/19 06:00 71 14 124/53 (76) 98 09/05/19 06:00 72 16 152/61 (91) 99 09/05/19 05:14 77 18 35 09/05/19 05:00 71 16 130/44 (72) 99 09/05/19 04:30 73 17 121/47 (71) 99 09/05/19 04:15 71 15 115/47 (69) 99 09/05/19 04:00 76 09/05/19 04:00 74 20 123/51 (75) 09/05/19 04:00 35 09/05/19 04:00 98.6 74 20 123/51 (75) 09/05/19 04:00 Mechanical Ventilator Mechanical Ventilator 09/05/19 03:45 70 14 123/50 (74) 98 09/05/19 03:30 69 14 112/36 (61) 98 09/05/19 03:15 75 17 129/59 (82) 09/05/19 03:00 73 16 157/67 (97) 99 09/05/19 03:00 73 16 157/67 (97) 99 09/05/19 02:45 74 17 157/61 (93) 98 09/05/19 02:37 74 18 35 09/05/19 02:30 72 16 155/65 (95) 97 09/05/19 02:15 69 16 139/60 (86) 97 09/05/19 02:00 70 15 151/59 (89) 96 09/05/19 02:00 70 15 151/59 (89) 96 09/05/19 01:45 71 20 143/67 (92) 99 09/05/19 01:30 64 14 113/95 (101) 97 09/05/19 01:15 69 14 133/55 (81) 95 09/05/19 01:00 72 16 130/53 (78) 95 09/05/19 01:00 72 16 130/53 (78) 95 09/05/19 01:00 72 16 130/53 (78) 95 09/05/19 00:45 73 16 128/63 (84) 95 09/05/19 00:36 74 18 35 09/05/19 00:30 74 15 135/54 (81) 96 09/05/19 00:15 72 14 133/52 (79) 95 09/05/19 00:00 72 14 133/56 (81) 96 09/05/19 00:00 Mechanical Ventilator Mechanical Ventilator 09/05/19 00:00 73 09/05/19 00:00 35 09/05/19 00:00 98.4 72 14 133/56 (81) 96 09/04/19 23:15 68 25 35 09/04/19 23:00 77 18 158/63 (94) 98 09/04/19 22:00 73 16 147/60 (89) 95 09/04/19 21:15 73 17 35 09/04/19 21:00 73 14 145/56 (85) 96 09/04/19 20:00 98.6 77 19 165/59 (94) 98 09/04/19 20:00 76 09/04/19 20:00 Mechanical Ventilator Mechanical Ventilator 09/04/19 20:00 35 09/04/19 19:00 72 14 149/56 (87) 95 09/04/19 19:00 72 15 149/56 (87) 96 09/04/19 19:00 71 14 35 09/04/19 18:00 76 18 146/52 (83) 96 09/04/19 17:00 72 18 160/64 (96) 98 09/04/19 16:56 73 16 35 09/04/19 16:00 73 09/04/19 16:00 99.5 76 18 111/44 (66) 98 09/04/19 16:00 35 09/04/19 16:00 Mechanical Ventilator Mechanical Ventilator 09/04/19 15:00 77 18 129/57 (81) 97 09/04/19 14:45 75 14 35 09/04/19 14:00 71 18 135/57 (83) 96 09/04/19 13:00 74 18 146/51 (82) 94 09/04/19 12:52 74 14 35 09/04/19 12:00 72 09/04/19 12:00 35 09/04/19 12:00 98.9 72 16 127/50 (75) 95 09/04/19 12:00 Mechanical Ventilator Mechanical Ventilator Status: awake Condition: critical HEENT: atraumatic Neck: full ROM Lungs: rales, rhonchi Heart: HR/BP stable Abdomen: soft, non-tender Extremities: no C/C/E Accucheck: 150 Critical Care - Subjective ROS Limited/Unobtainable: No Condition: critical EKG Rhythm: Sinus Rhythm FI02: 35 Vent Support Breath Rate: 14 Vent Support Mode: CPAP Vent Tidal Volume: 500 Sputum Amount: Small PEEP: 5.0 PIP: 14 Tube Feeding Amount: 55 I&O: Intake and Output 09/04/19 09/05/19 19:00 07:00 Intake Total 970 ml 740 ml Output Total 490 ml 535 ml Balance 480 ml 205 ml Free Water 90 ml 80 ml IV Total 200 ml Tube Feeding 660 ml 660 ml Other 20 ml Output Urine Total 490 ml 535 ml # Bowel Movements 1 ET-Tube: 7.5 ET Position: 23 Labs: Laboratory Tests Test 09/05/19 04:58 09/05/19 07:30 White Blood Count 6.0 K/UL (4.8-10.8) Red Blood Count 3.32 M/UL (4.70-6.10) L Hemoglobin 10.3 G/DL (14.2-18.0) L Hematocrit 31.0 % (42.0-52.0) L Mean Corpuscular Volume 93 FL (80-99) Mean Corpuscular Hemoglobin 31.0 PG (27.0-31.0) Mean Corpuscular Hemoglobin Concent 33.3 G/DL (32.0-36.0) Red Cell Distribution Width 13.5 % (11.6-14.8) Platelet Count 227 K/UL (150-450) Mean Platelet Volume 5.3 FL (6.5-10.1) L Neutrophils (%) (Auto) 71.4 % (45.0-75.0) Lymphocytes (%) (Auto) 17.6 % (20.0-45.0) L Monocytes (%) (Auto) 6.6 % (1.0-10.0) Eosinophils (%) (Auto) 3.7 % (0.0-3.0) H Basophils (%) (Auto) 0.6 % (0.0-2.0) Sodium Level 146 MMOL/L (136-145) H Potassium Level 3.7 MMOL/L (3.5-5.1) Chloride Level 110 MMOL/L (98-107) H Carbon Dioxide Level 31 MMOL/L (21-32) Anion Gap 5 mmol/L (5-15) Blood Urea Nitrogen 39 mg/dL (7-18) H Creatinine 0.6 MG/DL (0.55-1.30) Estimat Glomerular Filtration Rate > 60 mL/min (>60) Glucose Level 138 MG/DL (74-106) H Calcium Level 8.5 MG/DL (8.5-10.1) Phosphorus Level 3.5 MG/DL (2.5-4.9) Magnesium Level 1.9 MG/DL (1.8-2.4) Total Bilirubin 0.6 MG/DL (0.2-1.0) Aspartate Amino Transf (AST/SGOT) 28 U/L (15-37) Alanine Aminotransferase (ALT/SGPT) 65 U/L (12-78) Alkaline Phosphatase 79 U/L (46-116) Total Protein 5.0 G/DL (6.4-8.2) L Albumin 2.1 G/DL (3.4-5.0) L Globulin 2.9 g/dL Albumin/Globulin Ratio 0.7 (1.0-2.7) L Arterial Blood pH 7.437 (7.350-7.450) Arterial Blood Partial Pressure CO2 46.2 mmHg (35.0-45.0) H Arterial Blood Partial Pressure O2 86.2 mmHg (75.0-100.0) Arterial Blood HCO3 30.5 mmol/L (22.0-26.0) H Arterial Blood Oxygen Saturation 95.9 % (95-100) Arterial Blood Base Excess 5.5 (-2-2) H Joe Test Positive Nicole Graves MD Sep 05, 2019 11:53
--- NOTE | 2019-09-05 15:10 | Diagnostic Imaging Report ---
Indication: Dyspnea Comparison: 09/03/2019 A single view chest radiograph was obtained. Findings: There is a left basal infiltrate suspected. Heart is borderline enlarged. Endotracheal tube and nasogastric tubes are in good position. Bones are osteopenic. IMPRESSION: Suspected pneumonia at the left lung base
--- NOTE | 2019-09-05 19:40 | Surgery Progress Note ---
Surgery Progress Note Subjective Additional Comments ill appearing no n/v/f/c on vent support weaning Objective Last 24 Hour Vital Signs Date Time Temp Pulse Resp B/P (MAP) Pulse Ox O2 Delivery O2 Flow Rate FiO2 09/05/19 19:28 75 18 30 09/05/19 19:00 71 15 141/59 (86) 95 09/05/19 18:00 72 18 159/61 (93) 96 09/05/19 17:00 75 18 159/67 (97) 96 09/05/19 16:49 72 14 30 09/05/19 16:00 Mechanical Ventilator Mechanical Ventilator 09/05/19 16:00 76 09/05/19 16:00 30 09/05/19 16:00 99.9 74 17 156/58 (90) 97 09/05/19 15:00 73 18 151/59 (89) 97 09/05/19 14:38 71 15 35 09/05/19 14:00 66 14 134/49 (77) 96 09/05/19 13:14 72 16 35 09/05/19 13:00 72 15 141/52 (81) 96 09/05/19 12:00 79 09/05/19 12:00 Mechanical Ventilator Mechanical Ventilator 09/05/19 12:00 99.8 79 21 148/56 (86) 97 09/05/19 11:00 77 20 148/61 (90) 97 09/05/19 10:22 76 18 35 09/05/19 10:17 96 09/05/19 10:00 69 14 145/53 (83) 98 09/05/19 09:30 72 18 35 09/05/19 09:00 71 17 135/52 (79) 96 09/05/19 08:00 35 09/05/19 08:00 70 09/05/19 08:00 98.8 69 14 145/55 (85) 98 09/05/19 08:00 Mechanical Ventilator Mechanical Ventilator 09/05/19 07:31 69 14 35 09/05/19 07:00 77 20 167/58 (94) 97 09/05/19 06:00 71 14 124/53 (76) 98 09/05/19 06:00 72 16 152/61 (91) 99 09/05/19 05:14 77 18 35 09/05/19 05:00 71 16 130/44 (72) 99 09/05/19 04:30 73 17 121/47 (71) 99 09/05/19 04:15 71 15 115/47 (69) 99 09/05/19 04:00 76 09/05/19 04:00 74 20 123/51 (75) 09/05/19 04:00 35 09/05/19 04:00 98.6 74 20 123/51 (75) 09/05/19 04:00 Mechanical Ventilator Mechanical Ventilator 09/05/19 03:45 70 14 123/50 (74) 98 09/05/19 03:30 69 14 112/36 (61) 98 09/05/19 03:15 75 17 129/59 (82) 09/05/19 03:00 73 16 157/67 (97) 99 09/05/19 03:00 73 16 157/67 (97) 99 09/05/19 02:45 74 17 157/61 (93) 98 09/05/19 02:37 74 18 35 09/05/19 02:30 72 16 155/65 (95) 97 09/05/19 02:15 69 16 139/60 (86) 97 09/05/19 02:00 70 15 151/59 (89) 96 09/05/19 02:00 70 15 151/59 (89) 96 09/05/19 01:45 71 20 143/67 (92) 99 09/05/19 01:30 64 14 113/95 (101) 97 09/05/19 01:15 69 14 133/55 (81) 95 09/05/19 01:00 72 16 130/53 (78) 95 09/05/19 01:00 72 16 130/53 (78) 95 09/05/19 01:00 72 16 130/53 (78) 95 09/05/19 00:45 73 16 128/63 (84) 95 09/05/19 00:36 74 18 35 09/05/19 00:30 74 15 135/54 (81) 96 09/05/19 00:15 72 14 133/52 (79) 95 09/05/19 00:00 72 14 133/56 (81) 96 09/05/19 00:00 Mechanical Ventilator Mechanical Ventilator 09/05/19 00:00 73 09/05/19 00:00 35 09/05/19 00:00 98.4 72 14 133/56 (81) 96 09/04/19 23:15 68 25 35 09/04/19 23:00 77 18 158/63 (94) 98 09/04/19 22:00 73 16 147/60 (89) 95 09/04/19 21:15 73 17 35 09/04/19 21:00 73 14 145/56 (85) 96 09/04/19 20:00 98.6 77 19 165/59 (94) 98 09/04/19 20:00 76 09/04/19 20:00 Mechanical Ventilator Mechanical Ventilator 09/04/19 20:00 35 I&O Intake and Output 09/04/19 09/05/19 19:00 07:00 Intake Total 970 ml 740 ml Output Total 490 ml 535 ml Balance 480 ml 205 ml Free Water 90 ml 80 ml IV Total 200 ml Tube Feeding 660 ml 660 ml Other 20 ml Output Urine Total 490 ml 535 ml # Bowel Movements 1 Dressing: other Wound: other Drains: other Cardiovascular: RSR Respiratory: decreased breath sounds Abdomen: soft, non-tender, present bowel sounds Extremities: edema, no cyanosis, other Laboratory Tests Test 09/05/19 04:58 09/05/19 07:30 White Blood Count 6.0 K/UL (4.8-10.8) Red Blood Count 3.32 M/UL (4.70-6.10) L Hemoglobin 10.3 G/DL (14.2-18.0) L Hematocrit 31.0 % (42.0-52.0) L Mean Corpuscular Volume 93 FL (80-99) Mean Corpuscular Hemoglobin 31.0 PG (27.0-31.0) Mean Corpuscular Hemoglobin Concent 33.3 G/DL (32.0-36.0) Red Cell Distribution Width 13.5 % (11.6-14.8) Platelet Count 227 K/UL (150-450) Mean Platelet Volume 5.3 FL (6.5-10.1) L Neutrophils (%) (Auto) 71.4 % (45.0-75.0) Lymphocytes (%) (Auto) 17.6 % (20.0-45.0) L Monocytes (%) (Auto) 6.6 % (1.0-10.0) Eosinophils (%) (Auto) 3.7 % (0.0-3.0) H Basophils (%) (Auto) 0.6 % (0.0-2.0) Sodium Level 146 MMOL/L (136-145) H Potassium Level 3.7 MMOL/L (3.5-5.1) Chloride Level 110 MMOL/L (98-107) H Carbon Dioxide Level 31 MMOL/L (21-32) Anion Gap 5 mmol/L (5-15) Blood Urea Nitrogen 39 mg/dL (7-18) H Creatinine 0.6 MG/DL (0.55-1.30) Estimat Glomerular Filtration Rate > 60 mL/min (>60) Glucose Level 138 MG/DL (74-106) H Calcium Level 8.5 MG/DL (8.5-10.1) Phosphorus Level 3.5 MG/DL (2.5-4.9) Magnesium Level 1.9 MG/DL (1.8-2.4) Total Bilirubin 0.6 MG/DL (0.2-1.0) Aspartate Amino Transf (AST/SGOT) 28 U/L (15-37) Alanine Aminotransferase (ALT/SGPT) 65 U/L (12-78) Alkaline Phosphatase 79 U/L (46-116) Total Protein 5.0 G/DL (6.4-8.2) L Albumin 2.1 G/DL (3.4-5.0) L Globulin 2.9 g/dL Albumin/Globulin Ratio 0.7 (1.0-2.7) L Arterial Blood pH 7.437 (7.350-7.450) Arterial Blood Partial Pressure CO2 46.2 mmHg (35.0-45.0) H Arterial Blood Partial Pressure O2 86.2 mmHg (75.0-100.0) Arterial Blood HCO3 30.5 mmol/L (22.0-26.0) H Arterial Blood Oxygen Saturation 95.9 % (95-100) Arterial Blood Base Excess 5.5 (-2-2) H Joe Test Positive Plan Problems: (1) Nosocomial pneumonia (2) AUREA (acute kidney injury) (3) Cardiomyopathy (4) Obesity (BMI 30.0-34.9) (5) DMII (diabetes mellitus, type 2) (6) Cardiac LV ejection fraction 40% (7) Pulmonary edema (8) Cardiopulmonary arrest Assessment & Plan: Cardiopulmonary arrest septic requiring urgent emergency line placement for pressors and fluids and meds Please see procedure report Full examination performed no other surgical issues found at this time etiology unknown likely surgical in nature Antibiotics fluids Pressors Vent weaning trials right groin site okay. no hematoma. no bleeding left arm picc okay NG tube is present in good position. A partial left lateral decubitus view of the abdomen performed as well as a supine view. The left lateral decubitus view is not adequate as the area of interest which would be the nondependent right side of the abdomen, which is the area of interest was not imaged and is beyond the field-of -view of the x-ray. Bowel gas pattern appears nonobstructive on the basis of the partial images obtained. off pressors labs reviewed cont tube feeds Unable to wean from ventilator. Labs noted ABG noted imaging reviewed cont weaning. if possible extubate otherwise will consider trach extubated improving monitor in ICU for now downgrade re-intubated on vent support on pressors wean pressors no family to consent for trach as will likely be needed vs comfort care / change of code status trach not emergency at this time will monitor * Interval removal of endotracheal tube. NG tube and left arm PICC line remain in place. * Apparent worsening of aeration with increasing hazy opacities in the bilateral lower lungs which may in part be related to artifact from patient positioning however layering bilateral pleural effusions and bilateral airspace disease not excluded. Follow-up recommended. (9) Respiratory failure (10) History of hypertension (11) COPD (chronic obstructive pulmonary disease) (12) CAD (coronary artery disease) (13) Atrial fibrillation (14) Dementia with behavioral disturbance (15) Upper respiratory infection (16) Acute respiratory failure (17) Dyspnea (18) UTI (urinary tract infection) Prosper Hummel Sep 05, 2019 19:40
--- NOTE | 2019-09-05 20:41 | Infectious Diseases Prog Note ---
Assessment/Plan Assessment/Plan ASSESSMENT: The patient is a 79-year-old male with: Multiple reintubations, likely cannot maintain airway Afebrile No leukocytosis Developing PNA 08/31 CXR: There is a hazy opacity at the left lung base again noted unchanged. Mild linear densities are seen in the right midlung which may be atelectasis or scarring. 09/02 CXR: Hazy basilar opacities, most likely due to overlying soft tissue shadows but hazy infiltrates also possible. If the latter, stable on the left, new or increased on the right. Stable and satisfactory tube positions 09/04: Suspected pneumonia at the left lung base Leukocytosis; Sp Fever , sp Sepsis, Sp Pneumonia ( probable asp), Sp RX -08/28 CXR: Interval removal of endotracheal tube. NG tube and left arm PICC line remain in place. Apparent worsening of aeration with increasing hazy opacities in the bilateral lower lungs which may in part be related to artifact from patient positioning however layering bilateral pleural effusions and bilateral airspace disease not excluded. -08/13 Scx: MDR-ACB (Tygacil LANI: 4) - CXR: 1. Streaky opacities in the right lower lung may represent atelectasis versus scarring. Left basilar opacity may represent atelectasis. Component of pneumonia is not excluded. Pulmonary vasculature congestion. -08/01 ucx NTD - sp cx: nl anastacio Urinary tract infection, SP Rx 08/31 SP rapid response and reintubation 08/17 Sp code blue and intubation , extubated 08/27 07/31 Sp Code blue and intubation , sp extubation 08/12 , Hyperlipidemia. COPD. History of GERD. History of encephalopathy. History of CAD/CA. History of cardiomyopathy. Hypertension. PLAN: Restart colistin #1. obtain sp cx -08/28 SP Colistin INH (MDR-ACB) # 14 - 08/21/ SP Merrem 10 - 08/14 SP IV Vanco # 4 -3 SP Zosyn and IV Vanco # 7/ , -08/01 SP Rocephin day # 10 - 07/31 sp sp Dox # 6 Monitor CBC. Monitor BMP. monitor temp and VS Monitor chest x-ray cont ICU Support ANGELLA RN Subjective Allergies: Coded Allergies: No Known Allergies (Unverified , 06/03/17) Subjective Afebrile. FiO2 35% still with frothy oral secretions Objective Vital Signs Last 24 Hour Vital Signs Date Time Temp Pulse Resp B/P (MAP) Pulse Ox O2 Delivery O2 Flow Rate FiO2 09/05/19 19:28 75 18 30 09/05/19 19:00 71 15 141/59 (86) 95 09/05/19 18:00 72 18 159/61 (93) 96 09/05/19 17:00 75 18 159/67 (97) 96 09/05/19 16:49 72 14 30 09/05/19 16:00 Mechanical Ventilator Mechanical Ventilator 09/05/19 16:00 76 09/05/19 16:00 30 09/05/19 16:00 99.9 74 17 156/58 (90) 97 09/05/19 15:00 73 18 151/59 (89) 97 09/05/19 14:38 71 15 35 09/05/19 14:00 66 14 134/49 (77) 96 09/05/19 13:14 72 16 35 09/05/19 13:00 72 15 141/52 (81) 96 09/05/19 12:00 79 09/05/19 12:00 Mechanical Ventilator Mechanical Ventilator 09/05/19 12:00 99.8 79 21 148/56 (86) 97 09/05/19 11:00 77 20 148/61 (90) 97 09/05/19 10:22 76 18 35 09/05/19 10:17 96 09/05/19 10:00 69 14 145/53 (83) 98 09/05/19 09:30 72 18 35 09/05/19 09:00 71 17 135/52 (79) 96 09/05/19 08:00 35 09/05/19 08:00 70 09/05/19 08:00 98.8 69 14 145/55 (85) 98 09/05/19 08:00 Mechanical Ventilator Mechanical Ventilator 09/05/19 07:31 69 14 35 09/05/19 07:00 77 20 167/58 (94) 97 09/05/19 06:00 71 14 124/53 (76) 98 09/05/19 06:00 72 16 152/61 (91) 99 09/05/19 05:14 77 18 35 09/05/19 05:00 71 16 130/44 (72) 99 09/05/19 04:30 73 17 121/47 (71) 99 09/05/19 04:15 71 15 115/47 (69) 99 09/05/19 04:00 76 09/05/19 04:00 74 20 123/51 (75) 09/05/19 04:00 35 09/05/19 04:00 98.6 74 20 123/51 (75) 09/05/19 04:00 Mechanical Ventilator Mechanical Ventilator 09/05/19 03:45 70 14 123/50 (74) 98 09/05/19 03:30 69 14 112/36 (61) 98 09/05/19 03:15 75 17 129/59 (82) 09/05/19 03:00 73 16 157/67 (97) 99 09/05/19 03:00 73 16 157/67 (97) 99 09/05/19 02:45 74 17 157/61 (93) 98 09/05/19 02:37 74 18 35 09/05/19 02:30 72 16 155/65 (95) 97 09/05/19 02:15 69 16 139/60 (86) 97 09/05/19 02:00 70 15 151/59 (89) 96 09/05/19 02:00 70 15 151/59 (89) 96 09/05/19 01:45 71 20 143/67 (92) 99 09/05/19 01:30 64 14 113/95 (101) 97 09/05/19 01:15 69 14 133/55 (81) 95 09/05/19 01:00 72 16 130/53 (78) 95 09/05/19 01:00 72 16 130/53 (78) 95 09/05/19 01:00 72 16 130/53 (78) 95 09/05/19 00:45 73 16 128/63 (84) 95 09/05/19 00:36 74 18 35 09/05/19 00:30 74 15 135/54 (81) 96 09/05/19 00:15 72 14 133/52 (79) 95 09/05/19 00:00 72 14 133/56 (81) 96 09/05/19 00:00 Mechanical Ventilator Mechanical Ventilator 09/05/19 00:00 73 09/05/19 00:00 35 09/05/19 00:00 98.4 72 14 133/56 (81) 96 09/04/19 23:15 68 25 35 09/04/19 23:00 77 18 158/63 (94) 98 09/04/19 22:00 73 16 147/60 (89) 95 09/04/19 21:15 73 17 35 09/04/19 21:00 73 14 145/56 (85) 96 Height (Feet): 5 Height (Inches): 6.00 Weight (Pounds): 205 Objective Gen: NAD HEENT: ETT CV: RRR. no rubs Resp: RRR. equal chest rise. no wheezes. Abd: nondistended. no palpable masses Neuro: not following commands Laboratory Tests Test 09/05/19 04:58 09/05/19 07:30 White Blood Count 6.0 K/UL (4.8-10.8) Red Blood Count 3.32 M/UL (4.70-6.10) L Hemoglobin 10.3 G/DL (14.2-18.0) L Hematocrit 31.0 % (42.0-52.0) L Mean Corpuscular Volume 93 FL (80-99) Mean Corpuscular Hemoglobin 31.0 PG (27.0-31.0) Mean Corpuscular Hemoglobin Concent 33.3 G/DL (32.0-36.0) Red Cell Distribution Width 13.5 % (11.6-14.8) Platelet Count 227 K/UL (150-450) Mean Platelet Volume 5.3 FL (6.5-10.1) L Neutrophils (%) (Auto) 71.4 % (45.0-75.0) Lymphocytes (%) (Auto) 17.6 % (20.0-45.0) L Monocytes (%) (Auto) 6.6 % (1.0-10.0) Eosinophils (%) (Auto) 3.7 % (0.0-3.0) H Basophils (%) (Auto) 0.6 % (0.0-2.0) Sodium Level 146 MMOL/L (136-145) H Potassium Level 3.7 MMOL/L (3.5-5.1) Chloride Level 110 MMOL/L (98-107) H Carbon Dioxide Level 31 MMOL/L (21-32) Anion Gap 5 mmol/L (5-15) Blood Urea Nitrogen 39 mg/dL (7-18) H Creatinine 0.6 MG/DL (0.55-1.30) Estimat Glomerular Filtration Rate > 60 mL/min (>60) Glucose Level 138 MG/DL (74-106) H Calcium Level 8.5 MG/DL (8.5-10.1) Phosphorus Level 3.5 MG/DL (2.5-4.9) Magnesium Level 1.9 MG/DL (1.8-2.4) Total Bilirubin 0.6 MG/DL (0.2-1.0) Aspartate Amino Transf (AST/SGOT) 28 U/L (15-37) Alanine Aminotransferase (ALT/SGPT) 65 U/L (12-78) Alkaline Phosphatase 79 U/L (46-116) Total Protein 5.0 G/DL (6.4-8.2) L Albumin 2.1 G/DL (3.4-5.0) L Globulin 2.9 g/dL Albumin/Globulin Ratio 0.7 (1.0-2.7) L Arterial Blood pH 7.437 (7.350-7.450) Arterial Blood Partial Pressure CO2 46.2 mmHg (35.0-45.0) H Arterial Blood Partial Pressure O2 86.2 mmHg (75.0-100.0) Arterial Blood HCO3 30.5 mmol/L (22.0-26.0) H Arterial Blood Oxygen Saturation 95.9 % (95-100) Arterial Blood Base Excess 5.5 (-2-2) H Joe Test Positive Current Medications Medications (Trade) Dose Ordered Sig/Amaris Route PRN Reason Start Time Stop Time Status Last Admin Dose Admin Acetaminophen (Tylenol) 650 mg Q4H PRN NG Mild Pain/Temp > 100.5 09/01/19 10:20 10/01/19 10:19 Albuterol/ Ipratropium (Albuterol/ Ipratropium) 3 ml Q4H PRN HHN Shortness of Breath 09/01/19 10:20 09/06/19 10:19 Amiodarone HCl (Cordarone) 200 mg DAILY NG 09/01/19 10:22 11/30/19 10:21 09/05/19 08:46 Atorvastatin Calcium (Lipitor) 40 mg BEDTIME NG 09/01/19 21:00 09/13/19 20:59 4/2/20 21:09 Chlorhexidine Gluconate (Kamila-Hex 2%) 1 applic DAILY@1999 TOPIC 09/01/19 20:00 09/17/19 19:59 09/04/19 21:08 Clopidogrel Bisulfate (Plavix) 75 mg DAILY NG 09/01/19 10:22 10/01/19 10:21 09/05/19 08:47 Heparin Sodium (Porcine) (Heparin 5000 units/ml) 5,000 units EVERY 12 HOURS SUBQ 09/01/19 10:23 10/16/19 10:22 09/05/19 08:50 Hydralazine HCl (Apresoline) 25 mg Q6HR PRN NG SBP above 160 09/02/19 01:45 12/01/19 01:44 Lorazepam (Ativan 2mg/ml 1ml) 2 mg Q4H PRN IV For Anxiety 09/01/19 10:20 09/08/19 10:19 09/02/19 03:18 Morphine Sulfate (Morphine Sulfate) 2 mg Q4H PRN IVP For Pain 09/01/19 10:21 09/08/19 10:20 Pantoprazole (Protonix) 40 mg EVERY 12 HOURS IVP 09/01/19 10:23 10/01/19 10:22 09/05/19 08:48 Rafy Page MD Sep 05, 2019 20:41
[2019-09-05] MEDS: Dyna-Hex 2% Top Sol 2oz TOPIC SCH (21:03)
[2019-09-05] MEDS: Atorvastatin 20mg tab NG SCH (21:10)
[2019-09-05] MEDS: Colistin 150mg vial IVP SCH (22:23)
[2019-09-06] VITALS (24 sets, daily range): BP systolic 116–155; BP diastolic 44–65
--- NOTE | 2019-09-06 02:14 | Progress Note ---
DATE: 09/05/2019 CARDIOLOGY PROGRESS NOTE SUBJECTIVE: The patient remains on ventilator support. OBJECTIVE: VITAL SIGNS: Blood pressure 124/53, pulse 71, respirations 14, and afebrile. Monitored rhythm sinus, atrial ectopics, bundle-branch block. LUNGS: Coarse breath sounds. CARDIAC: Regular rate and rhythm. Normal S1 and S2. ABDOMEN: Soft. EXTREMITIES: Trace edema. LABORATORY DATA: White count 6 and hemoglobin 10. Sodium 146, potassium 3.7, bicarb 31, BUN 39, creatinine 0.6, and albumin 3.1. IMPRESSION: 1. Recurring respiratory failure and cardiopulmonary arrest. 2. Chronic obstructive pulmonary disease. 3. Acute on chronic respiratory acidosis 4. Acute on chronic systolic and diastolic congestive heart failure. 5. Ischemic cardiomyopathy. 6. Paroxysmal atrial fibrillation. 7. Aspiration pneumonia, healthcare associated pneumonia. 8. Shock recovered. PLAN: 1. Need trach for long-term care, life-sustaining measures. 2. Continue ventilator support at this time. 3. Free water replacement. 4. Monitor cardiorenal parameters and volume status. 5. Hold diuretics. 6. Amiodarone for suppression of sustained atrial arrhythmias. 7. Remains high risk. Saeed Sim M.D. DR: MARCIA JOB#: [id number] CC:
--- NOTE | 2019-09-06 03:30 | Progress Note ---
DATE: 09/05/2019 SUBJECTIVE: The patient has low-grade fever without tachycardia. PHYSICAL EXAMINATION: VITAL SIGNS: Blood pressure 127/66, pulse is 72, respirations are 16, and temperature 98.4. HEENT: Eyes were normal. ENT, mucous membranes were moist and intact. NECK: Supple with no JVD without lymph nodes. LUNGS: Clear. HEART: Normal sounds with regular beats. ABDOMEN: Soft and nontender with normal bowel sounds. EXTREMITIES: Warm without cyanosis, clubbing, or edema. LABORATORY AND DIAGNOSTIC DATA: Hemoglobin is 10.3, hematocrit 31.2 with MCV of 93, WBC of 6.0 and platelets are 227. His BUN and creatinine are 39 and 0.6. His sodium is 146, potassium 3.7, chloride 110, CO2 is 31, phosphorus is 3.5, calcium is 8.5, and magnesium is 1.9. SGOT and SGPT are normal. Albumin is 2.9 and total protein is 5.0. Chest x-ray taken today revealed pneumonia in the left lower lobe. IMPRESSION: The patient with low-grade fever without tachycardia and without leukocytosis. He is currently on colistin 75 mg IV piggyback q.12h. Pulmonary publicity consultant considered possible. Repeat laboratory tests will be done in a.m. Modesta Mulligan M.D. DR: JENNIFER JOB#: [id number] CC:
--- NOTE | 2019-09-06 06:32 | Pulmonolgy Critical Care Note ---
Critical Care - Asmt/Plan Problems: (1) Acute respiratory failure Assessment & Plan: s/p terminal extubation (2) Cardiopulmonary arrest (3) Cardiac LV ejection fraction 40% (4) Nosocomial pneumonia (5) Atrial fibrillation (6) Pulmonary edema (7) COPD (chronic obstructive pulmonary disease) (8) CAD (coronary artery disease) (9) Dementia with behavioral disturbance Respiratory: adjust FIO2 Cardiac: continue to monitor HR/BP Gastrointestinal: hold feedings Neurologic: PRN Ativan, PRN Morphine - for tachypnea, keep patient comfortable Disposition: transfer to Notes Reviewed: cardio, renal Discussed with: nurses, consultants - Comfortcare, corrections caseworkerdevelopment system efficiency manager - Objective Last 24 Hour Vital Signs Date Time Temp Pulse Resp B/P (MAP) Pulse Ox O2 Delivery O2 Flow Rate FiO2 09/06/19 05:50 74 17 09/06/19 05:06 77 18 30 09/06/19 05:00 74 14 128/55 (79) 96 09/06/19 04:00 98.0 72 14 145/60 (88) 96 09/06/19 04:00 72 09/06/19 04:00 Mechanical Ventilator Mechanical Ventilator 09/06/19 04:00 30 09/06/19 04:00 30 09/06/19 03:27 76 14 30 09/06/19 03:00 74 16 155/65 (95) 96 09/06/19 02:00 71 14 142/59 (86) 95 09/06/19 01:43 70 14 30 09/06/19 01:00 70 14 141/63 (89) 95 09/06/19 00:00 30 09/06/19 00:00 Mechanical Ventilator Mechanical Ventilator 09/06/19 00:00 71 09/06/19 00:00 98.1 71 15 144/62 (89) 95 09/05/19 23:31 72 18 30 09/05/19 23:00 77 19 139/67 (91) 96 09/05/19 22:00 75 19 161/67 (98) 95 09/05/19 21:37 71 16 30 09/05/19 21:00 72 16 147/66 (93) 97 09/05/19 20:00 Mechanical Ventilator Mechanical Ventilator 09/05/19 20:00 72 09/05/19 20:00 30 09/05/19 20:00 98.4 74 17 159/59 (92) 97 09/05/19 19:28 75 18 30 09/05/19 19:00 71 15 141/59 (86) 95 09/05/19 18:00 72 18 159/61 (93) 96 09/05/19 17:00 75 18 159/67 (97) 96 09/05/19 16:49 72 14 30 09/05/19 16:00 Mechanical Ventilator Mechanical Ventilator 09/05/19 16:00 76 09/05/19 16:00 30 09/05/19 16:00 99.9 74 17 156/58 (90) 97 09/05/19 15:00 73 18 151/59 (89) 97 09/05/19 14:38 71 15 35 09/05/19 14:00 66 14 134/49 (77) 96 09/05/19 13:14 72 16 35 09/05/19 13:00 72 15 141/52 (81) 96 09/05/19 12:00 79 09/05/19 12:00 Mechanical Ventilator Mechanical Ventilator 09/05/19 12:00 99.8 79 21 148/56 (86) 97 09/05/19 11:00 77 20 148/61 (90) 97 09/05/19 10:22 76 18 35 09/05/19 10:17 96 09/05/19 10:00 69 14 145/53 (83) 98 09/05/19 09:30 72 18 35 09/05/19 09:00 71 17 135/52 (79) 96 09/05/19 08:00 35 09/05/19 08:00 70 09/05/19 08:00 98.8 69 14 145/55 (85) 98 09/05/19 08:00 Mechanical Ventilator Mechanical Ventilator 09/05/19 07:31 69 14 35 09/05/19 07:00 77 20 167/58 (94) 97 Status: obtunded Condition: critical HEENT: atraumatic, normocephalic Lungs: rales, rhonchi Heart: HR/BP stable Abdomen: soft Extremities: no C/C/E Micro: Microbiology Date/Time Source Procedure Growth Status 09/05/19 17:00 Sputum Gram Stain - Final Resulted 09/05/19 17:00 Sputum Sputum Culture Pending Resulted Accucheck: 150 Critical Care - Subjective ROS Limited/Unobtainable: Yes Condition: critical FI02: 30 Vent Support Breath Rate: 14 Vent Support Mode: AC Vent Tidal Volume: 500 Sputum Amount: Small PEEP: 5.0 PIP: 28 Tube Feeding Amount: 55 I&O: Intake and Output 09/05/19 09/06/19 19:00 07:00 Intake Total 635 ml 610 ml Output Total 425 ml 460 ml Balance 210 ml 150 ml Tube Feeding 605 ml 550 ml Other 30 ml 60 ml Output Urine Total 425 ml 460 ml # Bowel Movements 1 1 ET-Tube: 7.5 ET Position: 23 Labs: Laboratory Tests Test 09/05/19 07:30 Arterial Blood pH 7.437 (7.350-7.450) Arterial Blood Partial Pressure CO2 46.2 mmHg (35.0-45.0) H Arterial Blood Partial Pressure O2 86.2 mmHg (75.0-100.0) Arterial Blood HCO3 30.5 mmol/L (22.0-26.0) H Arterial Blood Oxygen Saturation 95.9 % (95-100) Arterial Blood Base Excess 5.5 (-2-2) H Joe Test Positive Nicole Graves MD Sep 06, 2019 06:32
--- NOTE | 2019-09-06 06:34 | Pulmonolgy Critical Care Note ---
Critical Care - Asmt/Plan Problems: (1) Acute respiratory failure (2) Cardiopulmonary arrest (3) Cardiac LV ejection fraction 40% (4) Nosocomial pneumonia (5) Atrial fibrillation (6) Pulmonary edema (7) COPD (chronic obstructive pulmonary disease) (8) CAD (coronary artery disease) (9) Dementia with behavioral disturbance Respiratory: monitor respiratory rate, adjust FIO2, CXR Cardiac: continue to monitor HR/BP Renal: F/U I&O, keep IV fluid Infectious Disease: check cultures Gastrointestinal: continue feedings/current rate Endocrine: monitor blood sugar Hematologic: monitor H/H, transfuse if hgb<8.5 Neurologic: keep patient comfortable Notes Reviewed: appraiser land, renal Discussed with: nurses, consultants, case fitterclinical statistics manager - Objective Last 24 Hour Vital Signs Date Time Temp Pulse Resp B/P (MAP) Pulse Ox O2 Delivery O2 Flow Rate FiO2 09/06/19 05:50 74 17 09/06/19 05:06 77 18 30 09/06/19 05:00 74 14 128/55 (79) 96 09/06/19 04:00 98.0 72 14 145/60 (88) 96 09/06/19 04:00 72 09/06/19 04:00 Mechanical Ventilator Mechanical Ventilator 09/06/19 04:00 30 09/06/19 04:00 30 09/06/19 03:27 76 14 30 09/06/19 03:00 74 16 155/65 (95) 96 09/06/19 02:00 71 14 142/59 (86) 95 09/06/19 01:43 70 14 30 09/06/19 01:00 70 14 141/63 (89) 95 09/06/19 00:00 30 09/06/19 00:00 Mechanical Ventilator Mechanical Ventilator 09/06/19 00:00 71 09/06/19 00:00 98.1 71 15 144/62 (89) 95 09/05/19 23:31 72 18 30 09/05/19 23:00 77 19 139/67 (91) 96 09/05/19 22:00 75 19 161/67 (98) 95 09/05/19 21:37 71 16 30 09/05/19 21:00 72 16 147/66 (93) 97 09/05/19 20:00 Mechanical Ventilator Mechanical Ventilator 09/05/19 20:00 72 09/05/19 20:00 30 09/05/19 20:00 98.4 74 17 159/59 (92) 97 09/05/19 19:28 75 18 30 09/05/19 19:00 71 15 141/59 (86) 95 09/05/19 18:00 72 18 159/61 (93) 96 09/05/19 17:00 75 18 159/67 (97) 96 09/05/19 16:49 72 14 30 09/05/19 16:00 Mechanical Ventilator Mechanical Ventilator 09/05/19 16:00 76 09/05/19 16:00 30 09/05/19 16:00 99.9 74 17 156/58 (90) 97 09/05/19 15:00 73 18 151/59 (89) 97 09/05/19 14:38 71 15 35 09/05/19 14:00 66 14 134/49 (77) 96 09/05/19 13:14 72 16 35 09/05/19 13:00 72 15 141/52 (81) 96 09/05/19 12:00 79 09/05/19 12:00 Mechanical Ventilator Mechanical Ventilator 09/05/19 12:00 99.8 79 21 148/56 (86) 97 09/05/19 11:00 77 20 148/61 (90) 97 09/05/19 10:22 76 18 35 09/05/19 10:17 96 09/05/19 10:00 69 14 145/53 (83) 98 09/05/19 09:30 72 18 35 09/05/19 09:00 71 17 135/52 (79) 96 09/05/19 08:00 35 09/05/19 08:00 70 09/05/19 08:00 98.8 69 14 145/55 (85) 98 09/05/19 08:00 Mechanical Ventilator Mechanical Ventilator 09/05/19 07:31 69 14 35 09/05/19 07:00 77 20 167/58 (94) 97 Status: awake Condition: critical, improving HEENT: atraumatic Neck: full ROM Lungs: clear Heart: HR/BP stable Abdomen: soft, active bowel sounds Extremities: no C/C/E Micro: Microbiology Date/Time Source Procedure Growth Status 09/05/19 17:00 Sputum Gram Stain - Final Resulted 09/05/19 17:00 Sputum Sputum Culture Pending Resulted Accucheck: 150 Critical Care - Subjective Condition: critical EKG Rhythm: Sinus Rhythm FI02: 30 Vent Support Breath Rate: 14 Vent Support Mode: AC Vent Tidal Volume: 500 Sputum Amount: Small PEEP: 5.0 PIP: 28 Tube Feeding Amount: 55 I&O: Intake and Output 09/05/19 09/06/19 19:00 07:00 Intake Total 635 ml 610 ml Output Total 425 ml 460 ml Balance 210 ml 150 ml Tube Feeding 605 ml 550 ml Other 30 ml 60 ml Output Urine Total 425 ml 460 ml # Bowel Movements 1 1 ET-Tube: 7.5 ET Position: 23 Labs: Laboratory Tests Test 09/05/19 07:30 Arterial Blood pH 7.437 (7.350-7.450) Arterial Blood Partial Pressure CO2 46.2 mmHg (35.0-45.0) H Arterial Blood Partial Pressure O2 86.2 mmHg (75.0-100.0) Arterial Blood HCO3 30.5 mmol/L (22.0-26.0) H Arterial Blood Oxygen Saturation 95.9 % (95-100) Arterial Blood Base Excess 5.5 (-2-2) H Joe Test Positive Nicole Graves MD Sep 06, 2019 06:34
[2019-09-06 07:31] LABS: BASOPHILS % (AUTO) 0.5 % (0.0-2.0); EOSINOPHILS % (AUTO) 4.5 % (0.0-3.0); HEMATOCRIT 29.4 % (42.0-52.0); LYMPHOCYTES % (AUTO) 19.2 % (20.0-45.0); MEAN CORPUSCULAR VOLUME 92 FL (80-99); NEUTROPHILS % (AUTO) 69.7 % (45.0-75.0); PLATELET COUNT 234 K/UL (150-450); RED BLOOD COUNT 3.18 M/UL (4.70-6.10); RED CELL DISTRIBUTION WIDTH 13.2 % (11.6-14.8); WHITE BLOOD COUNT 7.1 K/UL (4.8-10.8)
[2019-09-06 07:40] LABS: ALANINE AMINOTRANSFERASE 53 U/L (12-78); ALBUMIN/GLOBULIN RATIO 0.6 (1.0-2.7); ALKALINE PHOSPHATASE 82 U/L (46-116); ANION GAP 5 mmol/L (5-15); ASPARTATE AMINO TRANSFERASE 26 U/L (15-37); BILIRUBIN,TOTAL 0.6 MG/DL (0.2-1.0); BLOOD UREA NITROGEN 39 mg/dL (7-18); CALCIUM 8.6 MG/DL (8.5-10.1); CARBON DIOXIDE 33 MMOL/L (21-32); CHLORIDE 110 MMOL/L (98-107); CREATININE 0.6 MG/DL (0.55-1.30); POTASSIUM 3.8 MMOL/L (3.5-5.1); SODIUM 147 MMOL/L (136-145)
--- NOTE | 2019-09-06 10:02 | Nephrology Progress Note ---
Assessment/Plan Problem List: (1) AUREA (acute kidney injury) Assessment: Serum creatinine rising (2) Cardiopulmonary arrest (3) Respiratory failure (4) Cardiomyopathy (5) Obesity (BMI 30.0-34.9) (6) DMII (diabetes mellitus, type 2) Assessment Acute Renal Failure : AUREA Most likely due to cardiorespiratory arrest and episode of hypotension. Patient also has cardiomyopathy with Ej Fx of 40 % on admission Obese : BMI 34.4 ? DM Other Dx (1) Cardiopulmonary arrest (2) Nosocomial pneumonia (3) Acute respiratory failure (4) COPD (chronic obstructive pulmonary disease) (5) Atrial fibrillation (6) Dementia with behavioral disturbance (7) CAD (coronary artery disease) Plan Today's labs reviewed D5 W IV fluids for hypernatremia as needed pressors are off now patient's condition somewhat more stable In ICU He is intubated ventilator, weaning is being tried His blood pressure is more stable Overall he is still doing poorly Adjust blood pressure medications Stress dose of steroids which we will start tapering today Previously Monitor renal parameters. Serum creatinine improved Monitor urine output. Urine output improved. Avoid nephrotoxics. Weaning as possible. Remains intubated at this time. Correct electrolyte imbalances. Change tube feeding to Glucerna. Subjective ROS Limited/Unobtainable: Yes Objective Objective Last 24 Hour Vital Signs Date Time Temp Pulse Resp B/P (MAP) Pulse Ox O2 Delivery O2 Flow Rate FiO2 09/06/19 08:51 88 18 30 09/06/19 07:20 76 14 30 09/06/19 06:00 81 14 148/65 (92) 96 09/06/19 05:50 74 17 09/06/19 05:06 77 18 30 09/06/19 05:00 74 14 128/55 (79) 96 09/06/19 04:00 98.0 72 14 145/60 (88) 96 09/06/19 04:00 72 09/06/19 04:00 Mechanical Ventilator Mechanical Ventilator 09/06/19 04:00 30 09/06/19 04:00 30 09/06/19 03:27 76 14 30 09/06/19 03:00 74 16 155/65 (95) 96 09/06/19 02:00 71 14 142/59 (86) 95 09/06/19 01:43 70 14 30 09/06/19 01:00 70 14 141/63 (89) 95 09/06/19 00:00 30 09/06/19 00:00 Mechanical Ventilator Mechanical Ventilator 09/06/19 00:00 71 09/06/19 00:00 98.1 71 15 144/62 (89) 95 09/05/19 23:31 72 18 30 09/05/19 23:00 77 19 139/67 (91) 96 09/05/19 22:00 75 19 161/67 (98) 95 09/05/19 21:37 71 16 30 09/05/19 21:00 72 16 147/66 (93) 97 09/05/19 20:00 Mechanical Ventilator Mechanical Ventilator 09/05/19 20:00 72 09/05/19 20:00 30 09/05/19 20:00 98.4 74 17 159/59 (92) 97 09/05/19 19:28 75 18 30 09/05/19 19:00 71 15 141/59 (86) 95 09/05/19 18:00 72 18 159/61 (93) 96 09/05/19 17:00 75 18 159/67 (97) 96 09/05/19 16:49 72 14 30 09/05/19 16:00 Mechanical Ventilator Mechanical Ventilator 09/05/19 16:00 76 09/05/19 16:00 30 09/05/19 16:00 99.9 74 17 156/58 (90) 97 09/05/19 15:00 73 18 151/59 (89) 97 09/05/19 14:38 71 15 35 09/05/19 14:00 66 14 134/49 (77) 96 09/05/19 13:14 72 16 35 09/05/19 13:00 72 15 141/52 (81) 96 09/05/19 12:00 79 09/05/19 12:00 Mechanical Ventilator Mechanical Ventilator 09/05/19 12:00 99.8 79 21 148/56 (86) 97 09/05/19 11:00 77 20 148/61 (90) 97 09/05/19 10:22 76 18 35 09/05/19 10:17 96 Intake and Output 09/05/19 09/06/19 19:00 07:00 Intake Total 635 ml 665 ml Output Total 425 ml 495 ml Balance 210 ml 170 ml Tube Feeding 605 ml 605 ml Other 30 ml 60 ml Output Urine Total 425 ml 495 ml # Bowel Movements 1 1 Laboratory Tests 09/06/19 06:00: White Blood Count 7.1, Red Blood Count 3.18L, Hemoglobin 10.0L, Hematocrit 29.4L , Mean Corpuscular Volume 92, Mean Corpuscular Hemoglobin 31.3H, Mean Corpuscular Hemoglobin Concent 33.9, Red Cell Distribution Width 13.2, Platelet Count 234, Mean Platelet Volume 5.0L, Neutrophils (%) (Auto) 69.7, Lymphocytes ( %) (Auto) 19.2L, Monocytes (%) (Auto) 6.0, Eosinophils (%) (Auto) 4.5H, Basophils (%) (Auto) 0.5, Sodium Level 147H, Potassium Level 3.8, Chloride Level 110H, Carbon Dioxide Level 33H, Anion Gap 5, Blood Urea Nitrogen 39H, Creatinine 0.6, Estimat Glomerular Filtration Rate > 60, Glucose Level 124H, Calcium Level 8.6, Total Bilirubin 0.6, Aspartate Amino Transf (AST/SGOT) 26, Alanine Aminotransferase (ALT/SGPT) 53, Alkaline Phosphatase 82, Pro-B-Type Natriuretic Peptide 3009H, Total Protein 5.1L, Albumin 2.0L, Globulin 3.1, Albumin/Globulin Ratio 0.6L Height (Feet): 5 Height (Inches): 6.00 Weight (Pounds): 210 General Appearance: no apparent distress EENT: other Cardiovascular: normal rate Respiratory/Chest: decreased breath sounds Abdomen: soft Objective no change Yunior Sexton MD Sep 06, 2019 10:02
--- NOTE | 2019-09-06 10:09 | Diagnostic Imaging Report ---
EXAM: XR Chest, 1 View CLINICAL HISTORY: DYSPNEA TECHNIQUE: Frontal view of the chest. COMPARISON: September 05, 2019 FINDINGS: Distal tip of ET tube is above maya. Distal tip of enteric tube is in the proximal stomach. Cardiac silhouette is within normal limits allowing for portable technique. Central vascular congestion. Low lung volumes. Bilateral lower lobe atelectasis/infiltrates, similar to prior. No large pleural effusions. Osseous structures are unremarkable. Senescent changes. IMPRESSION: Bilateral lower lobe infiltrates/atelectasis, similar to prior.
[2019-09-06] MEDS: Pantoprazole Inj IVP SCH ×2 (11:22→20:18)
[2019-09-06] MEDS: Amiodarone 200mg tab NG SCH (11:22)
[2019-09-06] MEDS: Heparin 5000 units/ml inj SUBQ SCH ×2 (11:24→20:19)
[2019-09-06] MEDS: Colistin 150mg vial IVP SCH ×2 (12:28→21:14)
[2019-09-06] MEDS ORDERED: NS 275ml ONE (12:39)
[2019-09-06] MEDS ORDERED: Tubing IV Secondary IV ONE (12:39)
--- NOTE | 2019-09-06 13:16 | Infectious Diseases Prog Note ---
Assessment/Plan Assessment/Plan ASSESSMENT: The patient is a 79-year-old male with: Multiple reintubations, likely cannot maintain airway Afebrile No leukocytosis Developing PNA 08/31 CXR: There is a hazy opacity at the left lung base again noted unchanged. Mild linear densities are seen in the right midlung which may be atelectasis or scarring. 09/02 CXR: Hazy basilar opacities, most likely due to overlying soft tissue shadows but hazy infiltrates also possible. If the latter, stable on the left, new or increased on the right. Stable and satisfactory tube positions 09/04: Suspected pneumonia at the left lung base Leukocytosis; Sp Fever , sp Sepsis, Sp Pneumonia ( probable asp), Sp RX -08/28 CXR: Interval removal of endotracheal tube. NG tube and left arm PICC line remain in place. Apparent worsening of aeration with increasing hazy opacities in the bilateral lower lungs which may in part be related to artifact from patient positioning however layering bilateral pleural effusions and bilateral airspace disease not excluded. -08/13 Scx: MDR-ACB (Tygacil LANI: 4) - CXR: 1. Streaky opacities in the right lower lung may represent atelectasis versus scarring. Left basilar opacity may represent atelectasis. Component of pneumonia is not excluded. Pulmonary vasculature congestion. -08/01 ucx NTD - sp cx: nl anastacio Urinary tract infection, SP Rx 08/31 SP rapid response and reintubation 08/17 Sp code blue and intubation , extubated 08/27 07/31 Sp Code blue and intubation , sp extubation 08/12 , Hyperlipidemia. COPD. History of GERD. History of encephalopathy. History of CAD/SD. History of cardiomyopathy. Hypertension. PLAN: Restart colistin # 2. obtain sp cx -08/28 SP Colistin INH (MDR-ACB) # 14 - 08/21/ SP Merrem 10 - 08/14 SP IV Vanco # 4 -3 SP Zosyn and IV Vanco # 7/ , -08/01 SP Rocephin day # 10 - 07/31 sp sp Dox # 6 Monitor CBC. Monitor BMP. monitor temp and VS Monitor chest x-ray cont ICU Support ANGELLA RN Subjective Allergies: Coded Allergies: No Known Allergies (Unverified , 06/03/17) Subjective no acute event in ICU Objective Vital Signs Last 24 Hour Vital Signs Date Time Temp Pulse Resp B/P (MAP) Pulse Ox O2 Delivery O2 Flow Rate FiO2 09/06/19 11:22 83 16 30 09/06/19 08:51 88 18 30 09/06/19 07:20 76 14 30 09/06/19 06:00 81 14 148/65 (92) 96 09/06/19 05:50 74 17 09/06/19 05:06 77 18 30 09/06/19 05:00 74 14 128/55 (79) 96 09/06/19 04:00 98.0 72 14 145/60 (88) 96 09/06/19 04:00 72 09/06/19 04:00 Mechanical Ventilator Mechanical Ventilator 09/06/19 04:00 30 09/06/19 04:00 30 09/06/19 03:27 76 14 30 09/06/19 03:00 74 16 155/65 (95) 96 09/06/19 02:00 71 14 142/59 (86) 95 09/06/19 01:43 70 14 30 09/06/19 01:00 70 14 141/63 (89) 95 09/06/19 00:00 30 09/06/19 00:00 Mechanical Ventilator Mechanical Ventilator 09/06/19 00:00 71 09/06/19 00:00 98.1 71 15 144/62 (89) 95 09/05/19 23:31 72 18 30 09/05/19 23:00 77 19 139/67 (91) 96 09/05/19 22:00 75 19 161/67 (98) 95 09/05/19 21:37 71 16 30 09/05/19 21:00 72 16 147/66 (93) 97 09/05/19 20:00 Mechanical Ventilator Mechanical Ventilator 09/05/19 20:00 72 09/05/19 20:00 30 09/05/19 20:00 98.4 74 17 159/59 (92) 97 09/05/19 19:28 75 18 30 09/05/19 19:00 71 15 141/59 (86) 95 09/05/19 18:00 72 18 159/61 (93) 96 09/05/19 17:00 75 18 159/67 (97) 96 09/05/19 16:49 72 14 30 09/05/19 16:00 Mechanical Ventilator Mechanical Ventilator 09/05/19 16:00 76 09/05/19 16:00 30 09/05/19 16:00 99.9 74 17 156/58 (90) 97 09/05/19 15:00 73 18 151/59 (89) 97 09/05/19 14:38 71 15 35 09/05/19 14:00 66 14 134/49 (77) 96 Height (Feet): 5 Height (Inches): 6.00 Weight (Pounds): 210 HEENT: atraumatic Respiratory/Chest: lungs clear Cardiovascular: regular rhythm Abdomen: no organomegaly Microbiology Date/Time Source Procedure Growth Status 09/05/19 17:00 Sputum Gram Stain - Final Resulted 09/05/19 17:00 Sputum Sputum Culture Pending Resulted Laboratory Tests Test 09/06/19 06:00 White Blood Count 7.1 K/UL (4.8-10.8) Red Blood Count 3.18 M/UL (4.70-6.10) L Hemoglobin 10.0 G/DL (14.2-18.0) L Hematocrit 29.4 % (42.0-52.0) L Mean Corpuscular Volume 92 FL (80-99) Mean Corpuscular Hemoglobin 31.3 PG (27.0-31.0) H Mean Corpuscular Hemoglobin Concent 33.9 G/DL (32.0-36.0) Red Cell Distribution Width 13.2 % (11.6-14.8) Platelet Count 234 K/UL (150-450) Mean Platelet Volume 5.0 FL (6.5-10.1) L Neutrophils (%) (Auto) 69.7 % (45.0-75.0) Lymphocytes (%) (Auto) 19.2 % (20.0-45.0) L Monocytes (%) (Auto) 6.0 % (1.0-10.0) Eosinophils (%) (Auto) 4.5 % (0.0-3.0) H Basophils (%) (Auto) 0.5 % (0.0-2.0) Sodium Level 147 MMOL/L (136-145) H Potassium Level 3.8 MMOL/L (3.5-5.1) Chloride Level 110 MMOL/L (98-107) H Carbon Dioxide Level 33 MMOL/L (21-32) H Anion Gap 5 mmol/L (5-15) Blood Urea Nitrogen 39 mg/dL (7-18) H Creatinine 0.6 MG/DL (0.55-1.30) Estimat Glomerular Filtration Rate > 60 mL/min (>60) Glucose Level 124 MG/DL (74-106) H Calcium Level 8.6 MG/DL (8.5-10.1) Total Bilirubin 0.6 MG/DL (0.2-1.0) Aspartate Amino Transf (AST/SGOT) 26 U/L (15-37) Alanine Aminotransferase (ALT/SGPT) 53 U/L (12-78) Alkaline Phosphatase 82 U/L (46-116) Pro-B-Type Natriuretic Peptide 3009 pg/mL (0-125) H Total Protein 5.1 G/DL (6.4-8.2) L Albumin 2.0 G/DL (3.4-5.0) L Globulin 3.1 g/dL Albumin/Globulin Ratio 0.6 (1.0-2.7) L Current Medications Medications (Trade) Dose Ordered Sig/[facility] Route PRN Reason Start Time Stop Time Status Last Admin Dose Admin Acetaminophen (Tylenol) 650 mg Q4H PRN NG Mild Pain/Temp > 100.5 09/01/19 10:20 10/01/19 10:19 Amiodarone HCl (Cordarone) 200 mg DAILY NG 09/01/19 10:22 11/30/19 10:21 09/06/19 11:22 Atorvastatin Calcium (Lipitor) 40 mg BEDTIME NG 09/01/19 21:00 09/13/19 20:59 09/05/19 21:10 Chlorhexidine Gluconate (Kamila-Hex 2%) 1 applic DAILY@1999 TOPIC 09/01/19 20:00 09/17/19 19:59 09/05/19 21:03 Clopidogrel Bisulfate (Plavix) 75 mg DAILY NG 09/01/19 10:22 10/01/19 10:21 09/06/19 11:22 Colistimethate Sodium (Colistin) 75 mg EVERY 12 HOURS IVP 09/05/19 22:00 09/12/19 21:59 09/06/19 12:28 Heparin Sodium (Porcine) (Heparin 5000 units/ml) 5,000 units EVERY 12 HOURS SUBQ 3/30/20 10:23 10/16/19 10:22 09/06/19 11:24 Hydralazine HCl (Apresoline) 25 mg Q6HR PRN NG SBP above 160 09/02/19 01:45 12/01/19 01:44 Lorazepam (Ativan 2mg/ml 1ml) 2 mg Q4H PRN IV For Anxiety 09/01/19 10:20 09/08/19 10:19 09/02/19 03:18 Morphine Sulfate (Morphine Sulfate) 2 mg Q4H PRN IVP For Pain 09/01/19 10:21 09/08/19 10:20 Pantoprazole (Protonix) 40 mg EVERY 12 HOURS IVP 09/01/19 10:23 10/01/19 10:22 09/06/19 11:22 Angel Rudolph MD Sep 06, 2019 13:16
--- NOTE | 2019-09-06 14:41 | Surgery Progress Note ---
Surgery Progress Note Subjective Additional Comments ill appearing pending r/o COVID exam unchanged on vent support Objective Last 24 Hour Vital Signs Date Time Temp Pulse Resp B/P (MAP) Pulse Ox O2 Delivery O2 Flow Rate FiO2 09/06/19 13:20 80 18 30 09/06/19 11:22 83 16 30 09/06/19 08:51 88 18 30 09/06/19 07:20 76 14 30 09/06/19 06:00 81 14 148/65 (92) 96 09/06/19 05:50 74 17 09/06/19 05:06 77 18 30 09/06/19 05:00 74 14 128/55 (79) 96 09/06/19 04:00 98.0 72 14 145/60 (88) 96 09/06/19 04:00 72 09/06/19 04:00 Mechanical Ventilator Mechanical Ventilator 09/06/19 04:00 30 09/06/19 04:00 30 09/06/19 03:27 76 14 30 09/06/19 03:00 74 16 155/65 (95) 96 09/06/19 02:00 71 14 142/59 (86) 95 09/06/19 01:43 70 14 30 09/06/19 01:00 70 14 141/63 (89) 95 09/06/19 00:00 30 09/06/19 00:00 Mechanical Ventilator Mechanical Ventilator 09/06/19 00:00 71 09/06/19 00:00 98.1 71 15 144/62 (89) 95 09/05/19 23:31 72 18 30 09/05/19 23:00 77 19 139/67 (91) 96 09/05/19 22:00 75 19 161/67 (98) 95 09/05/19 21:37 71 16 30 09/05/19 21:00 72 16 147/66 (93) 97 09/05/19 20:00 Mechanical Ventilator Mechanical Ventilator 09/05/19 20:00 72 09/05/19 20:00 30 09/05/19 20:00 98.4 74 17 159/59 (92) 97 09/05/19 19:28 75 18 30 09/05/19 19:00 71 15 141/59 (86) 95 09/05/19 18:00 72 18 159/61 (93) 96 09/05/19 17:00 75 18 159/67 (97) 96 09/05/19 16:49 72 14 30 09/05/19 16:00 Mechanical Ventilator Mechanical Ventilator 09/05/19 16:00 76 09/05/19 16:00 30 09/05/19 16:00 99.9 74 17 156/58 (90) 97 09/05/19 15:00 73 18 151/59 (89) 97 I&O Intake and Output 09/05/19 09/06/19 19:00 07:00 Intake Total 635 ml 665 ml Output Total 425 ml 495 ml Balance 210 ml 170 ml Tube Feeding 605 ml 605 ml Other 30 ml 60 ml Output Urine Total 425 ml 495 ml # Bowel Movements 1 1 Dressing: saturated Wound: other Drains: other Cardiovascular: RSR Respiratory: decreased breath sounds Abdomen: soft, non-tender, present bowel sounds Extremities: no cyanosis Laboratory Tests Test 09/06/19 06:00 White Blood Count 7.1 K/UL (4.8-10.8) Red Blood Count 3.18 M/UL (4.70-6.10) L Hemoglobin 10.0 G/DL (14.2-18.0) L Hematocrit 29.4 % (42.0-52.0) L Mean Corpuscular Volume 92 FL (80-99) Mean Corpuscular Hemoglobin 31.3 PG (27.0-31.0) H Mean Corpuscular Hemoglobin Concent 33.9 G/DL (32.0-36.0) Red Cell Distribution Width 13.2 % (11.6-14.8) Platelet Count 234 K/UL (150-450) Mean Platelet Volume 5.0 FL (6.5-10.1) L Neutrophils (%) (Auto) 69.7 % (45.0-75.0) Lymphocytes (%) (Auto) 19.2 % (20.0-45.0) L Monocytes (%) (Auto) 6.0 % (1.0-10.0) Eosinophils (%) (Auto) 4.5 % (0.0-3.0) H Basophils (%) (Auto) 0.5 % (0.0-2.0) Sodium Level 147 MMOL/L (136-145) H Potassium Level 3.8 MMOL/L (3.5-5.1) Chloride Level 110 MMOL/L (98-107) H Carbon Dioxide Level 33 MMOL/L (21-32) H Anion Gap 5 mmol/L (5-15) Blood Urea Nitrogen 39 mg/dL (7-18) H Creatinine 0.6 MG/DL (0.55-1.30) Estimat Glomerular Filtration Rate > 60 mL/min (>60) Glucose Level 124 MG/DL (74-106) H Calcium Level 8.6 MG/DL (8.5-10.1) Total Bilirubin 0.6 MG/DL (0.2-1.0) Aspartate Amino Transf (AST/SGOT) 26 U/L (15-37) Alanine Aminotransferase (ALT/SGPT) 53 U/L (12-78) Alkaline Phosphatase 82 U/L (46-116) Pro-B-Type Natriuretic Peptide 3009 pg/mL (0-125) H Total Protein 5.1 G/DL (6.4-8.2) L Albumin 2.0 G/DL (3.4-5.0) L Globulin 3.1 g/dL Albumin/Globulin Ratio 0.6 (1.0-2.7) L Plan Problems: (1) Nosocomial pneumonia (2) AUREA (acute kidney injury) (3) Cardiomyopathy (4) Obesity (BMI 30.0-34.9) (5) DMII (diabetes mellitus, type 2) (6) Cardiac LV ejection fraction 40% (7) Pulmonary edema (8) Cardiopulmonary arrest Assessment & Plan: Cardiopulmonary arrest septic requiring urgent emergency line placement for pressors and fluids and meds Please see procedure report Full examination performed no other surgical issues found at this time etiology unknown likely surgical in nature Antibiotics fluids Pressors Vent weaning trials right groin site okay. no hematoma. no bleeding left arm picc okay NG tube is present in good position. A partial left lateral decubitus view of the abdomen performed as well as a supine view. The left lateral decubitus view is not adequate as the area of interest which would be the nondependent right side of the abdomen, which is the area of interest was not imaged and is beyond the field-of -view of the x-ray. Bowel gas pattern appears nonobstructive on the basis of the partial images obtained. off pressors labs reviewed cont tube feeds Unable to wean from ventilator. Labs noted ABG noted imaging reviewed cont weaning. if possible extubate otherwise will consider trach extubated improving monitor in ICU for now downgrade re-intubated on vent support on pressors wean pressors no family to consent for trach as will likely be needed vs comfort care / change of code status trach not emergency at this time will monitor * Interval removal of endotracheal tube. NG tube and left arm PICC line remain in place. * Apparent worsening of aeration with increasing hazy opacities in the bilateral lower lungs which may in part be related to artifact from patient positioning however layering bilateral pleural effusions and bilateral airspace disease not excluded. Follow-up recommended. (9) Respiratory failure (10) History of hypertension (11) COPD (chronic obstructive pulmonary disease) (12) CAD (coronary artery disease) (13) Atrial fibrillation (14) Dementia with behavioral disturbance (15) Upper respiratory infection (16) Acute respiratory failure (17) Dyspnea (18) UTI (urinary tract infection) Prosper Hummel Sep 06, 2019 14:41
--- NOTE | 2019-09-06 20:15 | Progress Note ---
DATE: 09/06/2019 CARDIOLOGY PROGRESS NOTE SUBJECTIVE: The patient remains on ventilator support. Re-intubated x3. OBJECTIVE: VITAL SIGNS: Blood pressure 148/65, heart rate 81, respiratory rate 14. LUNGS: Bilateral breath sounds. CARDIAC: Regular rhythm and rate. Normal S1, S2. ABDOMEN: Soft. EXTREMITIES: Trace edema. LABORATORY DATA: White count 7, hemoglobin 10. Sodium 147, potassium 3.8, bicarb 33, BUN 39, creatinine 0.6. Pro-natriuretic peptide 3000. IMPRESSION: 1. Hypernatremia. 2. Dehydration. 3. Recurring respiratory failure. 4. Acute myocardial infarction. 5. Acute and chronic respiratory acidosis. 6. Paroxysmal atrial fibrillation. 7. Acute on chronic systolic and diastolic congestive heart failure. PLAN: 1. Hold diuresis. 2. Free water replacement. 3. Ventilator support. 4. The patient will need tracheotomy for life-sustaining measures. 5. Continue maintenance-dose amiodarone for suppression of atrial arrhythmia. Saeed Sim M.D. DR: Alexa JOB#: [id number] CC:
[2019-09-06] MEDS: Dyna-Hex 2% Top Sol 2oz TOPIC SCH (20:17)
[2019-09-06] MEDS: Atorvastatin 20mg tab NG SCH (20:18)
[2019-09-07] VITALS (24 sets, daily range): BP systolic 119–152; BP diastolic 48–65
--- NOTE | 2019-09-07 02:30 | Progress Note ---
DATE: 09/06/2019 SUBJECTIVE: The patient is afebrile and hemodynamically stable. He did not undergo any weaning procedure today. PHYSICAL EXAMINATION: VITAL SIGNS: Blood pressure 142/56, pulse is 72, respirations are 16, and temperature is 100. HEENT: Eyes were normal. ENT, mucous membranes moist and intact. NECK: Supple with no JVD without lymph nodes. LUNGS: Clear. HEART: Normal sounds with regular beat. ABDOMEN: Soft and nontender with normal bowel sounds. EXTREMITIES: Warm without cyanosis, clubbing, or edema. LABORATORY AND DIAGNOSTIC DATA: His hemoglobin is 10.0, hematocrit 29.4 with MCV of 92, WBC of 11.1, and platelets 234. His BUN and creatinine are 39 and 0.6 respectively, unchanged since yesterday. His sodium is 147, potassium 3.8, chloride , and CO2 is 39. His magnesium is 1.5. His albumin is 2.0. His total protein is 5.1. His pro-BNP reed from 1800 to 3000. IMPRESSION: The patient has been relatively stable on repeat chest x-ray today, bilateral lower lobe atelectasis, central vascular congestion, and low lung volume. The bilateral atelectasis is unchanged. No pleural effusion. The patient is hemodynamically stable. He does not have tachycardia. some elevation in temperature. Repeat laboratory tests will be done in the a.m. Modesta Mulligan M.D. DR: Sarah JOB#: [id number] CC:
--- NOTE | 2019-09-07 06:29 | Pulmonolgy Critical Care Note ---
Critical Care - Asmt/Plan Problems: (1) Acute respiratory failure (2) Cardiopulmonary arrest (3) Cardiac LV ejection fraction 40% (4) Nosocomial pneumonia (5) Atrial fibrillation (6) Pulmonary edema (7) COPD (chronic obstructive pulmonary disease) (8) CAD (coronary artery disease) (9) Dementia with behavioral disturbance Respiratory: monitor respiratory rate, adjust FIO2, CXR Cardiac: continue pressors, continue to monitor HR/BP Renal: F/U I&O, check electrolytes Infectious Disease: check cultures Gastrointestinal: continue feedings/current rate Endocrine: monitor blood sugar Hematologic: monitor H/H, transfuse if hgb<8.5 Neurologic: PRN Ativan, PRN Morphine, keep patient comfortable Disposition: keep in ICU Notes Reviewed: last puller, 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, consultants Critical Care - Objective Last 24 Hour Vital Signs Date Time Temp Pulse Resp B/P (MAP) Pulse Ox O2 Delivery O2 Flow Rate FiO2 09/07/19 06:00 74 18 128/53 (78) 96 09/07/19 05:18 74 15 09/07/19 05:00 74 17 152/65 (94) 98 09/07/19 04:58 69 14 30 09/07/19 04:00 30 09/07/19 04:00 72 09/07/19 04:00 Mechanical Ventilator Mechanical Ventilator 09/07/19 04:00 99.1 72 14 126/58 (80) 96 09/07/19 03:13 79 18 30 09/07/19 03:00 72 14 133/56 (81) 94 09/07/19 02:00 70 14 125/53 (77) 93 09/07/19 01:00 74 16 134/55 (81) 94 09/07/19 00:55 73 14 30 09/07/19 00:00 Mechanical Ventilator Mechanical Ventilator 09/07/19 00:00 30 09/07/19 00:00 99.3 75 17 145/56 (85) 95 09/07/19 00:00 75 09/06/19 23:00 72 16 142/56 (84) 99 09/06/19 22:53 72 14 30 09/06/19 22:00 78 18 150/63 (92) 98 09/06/19 21:00 72 15 129/51 (77) 96 09/06/19 20:52 84 15 30 09/06/19 20:00 Mechanical Ventilator Mechanical Ventilator 09/06/19 20:00 70 09/06/19 20:00 30 09/06/19 20:00 73 15 116/46 (69) 95 09/06/19 19:12 77 19 30 09/06/19 19:00 100.0 73 15 116/48 (70) 97 09/06/19 18:00 73 15 135/53 (80) 96 09/06/19 17:15 74 16 30 09/06/19 17:00 77 17 116/44 (68) 96 09/06/19 16:43 77 09/06/19 16:00 30 09/06/19 16:00 Mechanical Ventilator Mechanical Ventilator 09/06/19 16:00 97.6 76 17 128/51 (76) 96 09/06/19 15:19 78 18 30 09/06/19 15:00 77 17 124/50 (74) 96 09/06/19 14:00 75 15 126/53 (77) 96 09/06/19 13:20 80 18 30 09/06/19 13:00 74 15 139/63 (88) 96 09/06/19 12:00 82 19 139/63 (88) 96 09/06/19 12:00 Mechanical Ventilator Mechanical Ventilator 09/06/19 12:00 78 09/06/19 12:00 30 09/06/19 11:22 83 16 30 09/06/19 11:00 81 18 117/51 (73) 94 09/06/19 10:00 75 17 130/55 (80) 95 09/06/19 09:00 82 18 150/60 (90) 96 09/06/19 08:51 88 18 30 09/06/19 08:00 Mechanical Ventilator Mechanical Ventilator 09/06/19 08:00 30 09/06/19 08:00 78 17 134/51 (78) 96 09/06/19 08:00 82 09/06/19 07:20 76 14 30 09/06/19 07:00 78 17 148/65 (92) 96 Status: awake Condition: critical HEENT: normocephalic Neck: full ROM Lungs: clear Heart: HR/BP stable Abdomen: soft, non-tender Extremities: no C/C/E Micro: Microbiology Date/Time Source Procedure Growth Status 09/05/19 17:00 Sputum Gram Stain - Final Resulted 09/05/19 17:00 Sputum Culture - Preliminary Gram Negative Abel Resulted Accucheck: 150 Critical Care - Subjective ROS Limited/Unobtainable: No Condition: critical FI02: 30 Vent Support Breath Rate: 14 Vent Support Mode: AC Vent Tidal Volume: 500 Sputum Amount: Small PEEP: 5.0 PIP: 27 Tube Feeding Amount: 55 I&O: Intake and Output 09/06/19 09/07/19 19:00 07:00 Intake Total 710 ml 655 ml Output Total 480 ml 490 ml Balance 230 ml 165 ml Free Water 50 ml Tube Feeding 660 ml 605 ml Other 50 ml Output Urine Total 480 ml 490 ml # Bowel Movements 1 ET-Tube: 7.5 ET Position: 23 Nicole Graves MD Sep 07, 2019 06:29
[2019-09-07 07:11] LABS: BASOPHILS % (AUTO) 0.8 % (0.0-2.0); HEMOGLOBIN 9.9 G/DL (14.2-18.0); LYMPHOCYTES % (AUTO) 28.8 % (20.0-45.0); MEAN CORPUSCULAR VOLUME 93 FL (80-99); MONOCYTES % (AUTO) 6.4 % (1.0-10.0); NEUTROPHILS % (AUTO) 60.1 % (45.0-75.0); PLATELET COUNT 209 K/UL (150-450); RED BLOOD COUNT 3.22 M/UL (4.70-6.10); RED CELL DISTRIBUTION WIDTH 13.2 % (11.6-14.8); WHITE BLOOD COUNT 6.8 K/UL (4.8-10.8)
[2019-09-07 07:31] LABS: ANION GAP 5 mmol/L (5-15); BLOOD UREA NITROGEN 40 mg/dL (7-18); CALCIUM 8.6 MG/DL (8.5-10.1); CARBON DIOXIDE 31 MMOL/L (21-32); CHLORIDE 111 MMOL/L (98-107); CREATININE 0.6 MG/DL (0.55-1.30); POTASSIUM 3.9 MMOL/L (3.5-5.1); SODIUM 147 MMOL/L (136-145)
[2019-09-07] MEDS: Colistin 150mg vial IVP SCH ×2 (09:37→20:54)
[2019-09-07] MEDS: Amiodarone 200mg tab NG SCH (09:37)
[2019-09-07] MEDS: Pantoprazole Inj IVP SCH ×2 (09:37→20:55)
[2019-09-07] MEDS: Heparin 5000 units/ml inj SUBQ SCH ×2 (09:39→21:00)
--- NOTE | 2019-09-07 10:06 | Nephrology Progress Note ---
Assessment/Plan Problem List: (1) AUREA (acute kidney injury) Assessment: Serum creatinine rising (2) Cardiopulmonary arrest (3) Respiratory failure (4) Cardiomyopathy (5) Obesity (BMI 30.0-34.9) (6) DMII (diabetes mellitus, type 2) Assessment Acute Renal Failure : AUREA Most likely due to cardiorespiratory arrest and episode of hypotension. Patient also has cardiomyopathy with Ej Fx of 40 % on admission Obese : BMI 34.4 ? DM Other Dx (1) Cardiopulmonary arrest (2) Nosocomial pneumonia (3) Acute respiratory failure (4) COPD (chronic obstructive pulmonary disease) (5) Atrial fibrillation (6) Dementia with behavioral disturbance (7) CAD (coronary artery disease) Plan Today's labs reviewed D5 W IV fluids for hypernatremia as needed pressors are off now patient's condition somewhat more stable In ICU He is intubated ventilator, weaning is being tried His blood pressure is more stable Overall he is still doing poorly Adjust blood pressure medications Stress dose of steroids which we will start tapering today Previously Monitor renal parameters. Serum creatinine improved Monitor urine output. Urine output improved. Avoid nephrotoxics. Weaning as possible. Remains intubated at this time. Correct electrolyte imbalances. Change tube feeding to Glucerna. Subjective ROS Limited/Unobtainable: Yes Objective Objective Last 24 Hour Vital Signs Date Time Temp Pulse Resp B/P (MAP) Pulse Ox O2 Delivery O2 Flow Rate FiO2 09/07/19 09:00 80 20 30 30 09/07/19 06:57 73 18 30 09/07/19 06:00 74 18 128/53 (78) 96 09/07/19 05:18 74 15 09/07/19 05:00 74 17 152/65 (94) 98 09/07/19 04:58 69 14 30 09/07/19 04:00 30 09/07/19 04:00 72 09/07/19 04:00 Mechanical Ventilator Mechanical Ventilator 09/07/19 04:00 99.1 72 14 126/58 (80) 96 09/07/19 03:13 79 18 30 09/07/19 03:00 72 14 133/56 (81) 94 09/07/19 02:00 70 14 125/53 (77) 93 09/07/19 01:00 74 16 134/55 (81) 94 09/07/19 00:55 73 14 30 09/07/19 00:00 Mechanical Ventilator Mechanical Ventilator 09/07/19 00:00 30 09/07/19 00:00 99.3 75 17 145/56 (85) 95 09/07/19 00:00 75 09/06/19 23:00 72 16 142/56 (84) 99 09/06/19 22:53 72 14 30 09/06/19 22:00 78 18 150/63 (92) 98 09/06/19 21:00 72 15 129/51 (77) 96 09/06/19 20:52 84 15 30 09/06/19 20:00 Mechanical Ventilator Mechanical Ventilator 09/06/19 20:00 70 09/06/19 20:00 30 09/06/19 20:00 73 15 116/46 (69) 95 09/06/19 19:12 77 19 30 09/06/19 19:00 100.0 73 15 116/48 (70) 97 09/06/19 18:00 73 15 135/53 (80) 96 09/06/19 17:15 74 16 30 09/06/19 17:00 77 17 116/44 (68) 96 09/06/19 16:43 77 09/06/19 16:00 30 09/06/19 16:00 Mechanical Ventilator Mechanical Ventilator 09/06/19 16:00 97.6 76 17 128/51 (76) 96 09/06/19 15:19 78 18 30 09/06/19 15:00 77 17 124/50 (74) 96 09/06/19 14:00 75 15 126/53 (77) 96 09/06/19 13:20 80 18 30 09/06/19 13:00 74 15 139/63 (88) 96 09/06/19 12:00 82 19 139/63 (88) 96 09/06/19 12:00 Mechanical Ventilator Mechanical Ventilator 09/06/19 12:00 78 09/06/19 12:00 30 09/06/19 11:22 83 16 30 09/06/19 11:00 81 18 117/51 (73) 94 Intake and Output 09/06/19 09/07/19 19:00 07:00 Intake Total 710 ml 655 ml Output Total 480 ml 490 ml Balance 230 ml 165 ml Free Water 50 ml Tube Feeding 660 ml 605 ml Other 50 ml Output Urine Total 480 ml 490 ml # Bowel Movements 1 Laboratory Tests 09/07/19 05:50: White Blood Count 6.8, Red Blood Count 3.22L, Hemoglobin 9.9L, Hematocrit 30.0L , Mean Corpuscular Volume 93, Mean Corpuscular Hemoglobin 30.8, Mean Corpuscular Hemoglobin Concent 33.0, Red Cell Distribution Width 13.2, Platelet Count 209, Mean Platelet Volume 5.3L, Neutrophils (%) (Auto) 60.1, Lymphocytes ( %) (Auto) 28.8, Monocytes (%) (Auto) 6.4, Eosinophils (%) (Auto) 4.0H, Basophils (%) (Auto) 0.8, Sodium Level 147H, Potassium Level 3.9, Chloride Level 111H, Carbon Dioxide Level 31, Anion Gap 5, Blood Urea Nitrogen 40H, Creatinine 0.6, Estimat Glomerular Filtration Rate > 60, Glucose Level 125H, Calcium Level 8.6, Magnesium Level 1.9 Height (Feet): 5 Height (Inches): 6.00 Weight (Pounds): 209 General Appearance: no apparent distress EENT: other - Intubated and vented Respiratory/Chest: decreased breath sounds Abdomen: soft Objective no change Yunior Sexton MD Sep 07, 2019 10:06
--- NOTE | 2019-09-07 17:15 | Progress Note ---
DATE: 09/07/2019 SUBJECTIVE: The patient remains on ventilator support. Weaning efforts have been unsuccessful. He has had three failures with re-intubation. He has had two cardiopulmonary arrest. Monitored rhythm now sinus with bundle-branch block. PHYSICAL EXAMINATION: VITAL SIGNS: Blood pressure 128/53, pulse 74, respiratory rate 18, temperature T-max 100. LUNGS: Bilateral breath sounds, rhonchi. HEART: Regular rhythm and rate. Normal S1, paradoxically split S2. ABDOMEN: Soft. EXTREMITIES: There is trace dependent edema noted. LABORATORY DATA: White count is 6.8, hemoglobin 9.9. ABG 7.38, 51, 92. Sodium 147, potassium 3.9, bicarb 31, BUN 40, creatinine 0.6. Magnesium 1.9. IMPRESSION: 1. Recurring respiratory failure. 2. Dehydration. 3. Hypernatremia. 4. Ischemic cardiomyopathy. 5. Acute on chronic diastolic and systolic congestive heart failure. 6. Paroxysmal atrial fibrillation. 7. Severe protein-calorie malnutrition. 8. Acute on chronic respiratory acidosis. 9. COPD. PLAN: 1. Continue free water replacement. 2. Hold diuretics. 3. Ventilator support. The patient will need tracheostomy for prolonged weaning. 4. Nutrition by feeding tube. Saeed Sim M.D. DR: Bruno JOB#: [id number] CC:
--- NOTE | 2019-09-07 18:28 | Surgery Progress Note ---
Surgery Progress Note Subjective Symptoms: improved Objective Last 24 Hour Vital Signs Date Time Temp Pulse Resp B/P (MAP) Pulse Ox O2 Delivery O2 Flow Rate FiO2 09/07/19 18:00 98.1 73 16 130/49 (76) 95 09/07/19 17:00 30 09/07/19 17:00 69 15 146/56 (86) 95 09/07/19 16:48 81 18 30 09/07/19 16:00 74 16 134/55 (81) 96 09/07/19 16:00 74 09/07/19 16:00 Mechanical Ventilator Mechanical Ventilator 09/07/19 15:05 76 15 30 30 09/07/19 15:00 76 16 135/55 (81) 96 09/07/19 14:00 80 20 142/59 (86) 97 09/07/19 13:10 82 20 30 30 09/07/19 13:00 81 19 145/65 (91) 96 09/07/19 12:00 82 09/07/19 12:00 98.0 80 16 141/64 (89) 96 09/07/19 12:00 30 09/07/19 12:00 Mechanical Ventilator Mechanical Ventilator 09/07/19 11:23 88 18 30 30 09/07/19 11:00 87 18 132/64 (86) 96 09/07/19 10:00 88 19 134/59 (84) 95 09/07/19 09:00 30 09/07/19 09:00 80 18 147/57 (87) 97 09/07/19 09:00 80 20 30 30 09/07/19 08:00 98.2 78 18 140/57 (84) 97 09/07/19 08:00 30 09/07/19 08:00 78 09/07/19 08:00 Mechanical Ventilator Mechanical Ventilator 09/07/19 07:00 74 15 146/61 (89) 96 09/07/19 06:57 73 18 30 09/07/19 06:00 74 18 128/53 (78) 96 09/07/19 05:18 74 15 09/07/19 05:00 74 17 152/65 (94) 98 09/07/19 04:58 69 14 30 09/07/19 04:00 30 09/07/19 04:00 72 09/07/19 04:00 Mechanical Ventilator Mechanical Ventilator 09/07/19 04:00 99.1 72 14 126/58 (80) 96 09/07/19 03:13 79 18 30 09/07/19 03:00 72 14 133/56 (81) 94 09/07/19 02:00 70 14 125/53 (77) 93 09/07/19 01:00 74 16 134/55 (81) 94 09/07/19 00:55 73 14 30 09/07/19 00:00 Mechanical Ventilator Mechanical Ventilator 09/07/19 00:00 30 09/07/19 00:00 99.3 75 17 145/56 (85) 95 09/07/19 00:00 75 09/06/19 23:00 72 16 142/56 (84) 99 09/06/19 22:53 72 14 30 09/06/19 22:00 78 18 150/63 (92) 98 09/06/19 21:00 72 15 129/51 (77) 96 09/06/19 20:52 84 15 30 09/06/19 20:00 Mechanical Ventilator Mechanical Ventilator 09/06/19 20:00 70 09/06/19 20:00 30 09/06/19 20:00 73 15 116/46 (69) 95 09/06/19 19:12 77 19 30 09/06/19 19:00 100.0 73 15 116/48 (70) 97 I&O Intake and Output 09/06/19 09/07/19 19:00 07:00 Intake Total 710 ml 710 ml Output Total 480 ml 550 ml Balance 230 ml 160 ml Free Water 50 ml Tube Feeding 660 ml 660 ml Other 50 ml Output Urine Total 480 ml 550 ml # Bowel Movements 1 Dressing: other Wound: other Drains: other Cardiovascular: RSR Respiratory: decreased breath sounds Abdomen: soft, non-tender, present bowel sounds Extremities: no tenderness, no cyanosis Laboratory Tests Test 09/07/19 05:50 09/07/19 15:05 White Blood Count 6.8 K/UL (4.8-10.8) Red Blood Count 3.22 M/UL (4.70-6.10) L Hemoglobin 9.9 G/DL (14.2-18.0) L Hematocrit 30.0 % (42.0-52.0) L Mean Corpuscular Volume 93 FL (80-99) Mean Corpuscular Hemoglobin 30.8 PG (27.0-31.0) Mean Corpuscular Hemoglobin Concent 33.0 G/DL (32.0-36.0) Red Cell Distribution Width 13.2 % (11.6-14.8) Platelet Count 209 K/UL (150-450) Mean Platelet Volume 5.3 FL (6.5-10.1) L Neutrophils (%) (Auto) 60.1 % (45.0-75.0) Lymphocytes (%) (Auto) 28.8 % (20.0-45.0) Monocytes (%) (Auto) 6.4 % (1.0-10.0) Eosinophils (%) (Auto) 4.0 % (0.0-3.0) H Basophils (%) (Auto) 0.8 % (0.0-2.0) Sodium Level 147 MMOL/L (136-145) H Potassium Level 3.9 MMOL/L (3.5-5.1) Chloride Level 111 MMOL/L (98-107) H Carbon Dioxide Level 31 MMOL/L (21-32) Anion Gap 5 mmol/L (5-15) Blood Urea Nitrogen 40 mg/dL (7-18) H Creatinine 0.6 MG/DL (0.55-1.30) Estimat Glomerular Filtration Rate > 60 mL/min (>60) Glucose Level 125 MG/DL (74-106) H Calcium Level 8.6 MG/DL (8.5-10.1) Magnesium Level 1.9 MG/DL (1.8-2.4) Arterial Blood pH 7.384 (7.350-7.450) Arterial Blood Partial Pressure CO2 51.4 mmHg (35.0-45.0) H Arterial Blood Partial Pressure O2 91.9 mmHg (75.0-100.0) Arterial Blood HCO3 30.0 mmol/L (22.0-26.0) H Arterial Blood Oxygen Saturation 96.3 % (95-100) Arterial Blood Base Excess 4.1 (-2-2) H Joe Test Positive Plan Problems: (1) Nosocomial pneumonia (2) AUREA (acute kidney injury) (3) Cardiomyopathy (4) Obesity (BMI 30.0-34.9) (5) DMII (diabetes mellitus, type 2) (6) Cardiac LV ejection fraction 40% (7) Pulmonary edema (8) Cardiopulmonary arrest Assessment & Plan: Cardiopulmonary arrest septic requiring urgent emergency line placement for pressors and fluids and meds Please see procedure report Full examination performed no other surgical issues found at this time etiology unknown likely surgical in nature Antibiotics fluids Pressors Vent weaning trials right groin site okay. no hematoma. no bleeding left arm picc okay NG tube is present in good position. A partial left lateral decubitus view of the abdomen performed as well as a supine view. The left lateral decubitus view is not adequate as the area of interest which would be the nondependent right side of the abdomen, which is the area of interest was not imaged and is beyond the field-of -view of the x-ray. Bowel gas pattern appears nonobstructive on the basis of the partial images obtained. off pressors labs reviewed cont tube feeds Unable to wean from ventilator. Labs noted ABG noted imaging reviewed cont weaning. if possible extubate otherwise will consider trach extubated improving monitor in ICU for now downgrade re-intubated on vent support on pressors wean pressors will monitor * Interval removal of endotracheal tube. NG tube and left arm PICC line remain in place. * Apparent worsening of aeration with increasing hazy opacities in the bilateral lower lungs which may in part be related to artifact from patient positioning however layering bilateral pleural effusions and bilateral airspace disease not excluded. Follow-up recommended. will need trach does not seem to be able to wean (9) Respiratory failure (10) History of hypertension (11) COPD (chronic obstructive pulmonary disease) (12) CAD (coronary artery disease) (13) Atrial fibrillation (14) Dementia with behavioral disturbance (15) Upper respiratory infection (16) Acute respiratory failure (17) Dyspnea (18) UTI (urinary tract infection) Prosper Hummel Sep 07, 2019 18:27
[2019-09-07] MEDS: Dyna-Hex 2% Top Sol 2oz TOPIC SCH (20:54)
[2019-09-07] MEDS: Atorvastatin 20mg tab NG SCH (20:55)
[2019-09-08] VITALS (24 sets, daily range): BP systolic 100–145; BP diastolic 45–70
--- NOTE | 2019-09-08 04:14 | Progress Note ---
DATE: 09/07/2019 SUBJECTIVE: Patient is awake, alert, afebrile, hemodynamically stable. He was able to be weaned today for 8 hours. PHYSICAL EXAMINATION: VITAL SIGNS: Blood pressure 119/48, his pulse is 70, respirations are 14, temperature 98.5. HEENT: Eyes were normal. ENT, mucous membranes were moist and intact. NECK: Supple with no JVD without lymph nodes. LUNGS: Clear. HEART: Normal sounds with regular beats. ABDOMEN: Soft and nontender with normal bowel sounds. EXTREMITIES: Warm without cyanosis, clubbing, or edema. LABORATORY AND DIAGNOSTIC DATA: Hemoglobin is 9.9, hematocrit 30.0 with MCV of 93, WBC of 6.8, and platelets of 209. His BUN and creatinine is 40 and 0.6 respectively. Sodium is 137, potassium 3.9, chloride 111, CO2 is 31. Calcium is 8.6. Magnesium is 1.9. IMPRESSION: Patient was able to be weaned for 8 hours today in spite of time of the visit, patient's respiratory rate was between 30 to 35. Repeat laboratory tests will be done in the a.m. Modesta Mulligan M.D. DR: ZACHARY JOB#: [id number] CC:
[2019-09-08 05:49] LABS: BASOPHILS % (AUTO) 0.7 % (0.0-2.0); EOSINOPHILS % (AUTO) 5.7 % (0.0-3.0); HEMATOCRIT 28.8 % (42.0-52.0); HEMOGLOBIN 9.6 G/DL (14.2-18.0); LYMPHOCYTES % (AUTO) 24.3 % (20.0-45.0); MEAN CORPUSCULAR VOLUME 93 FL (80-99); MONOCYTES % (AUTO) 6.7 % (1.0-10.0); NEUTROPHILS % (AUTO) 62.6 % (45.0-75.0); PLATELET COUNT 203 K/UL (150-450); RED BLOOD COUNT 3.11 M/UL (4.70-6.10); RED CELL DISTRIBUTION WIDTH 13.5 % (11.6-14.8); WHITE BLOOD COUNT 6.3 K/UL (4.8-10.8)
[2019-09-08 06:18] LABS: ALANINE AMINOTRANSFERASE 48 U/L (12-78); ALBUMIN/GLOBULIN RATIO 0.7 (1.0-2.7); ALKALINE PHOSPHATASE 82 U/L (46-116); ANION GAP 9 mmol/L (5-15); ASPARTATE AMINO TRANSFERASE 23 U/L (15-37); BILIRUBIN,TOTAL 0.7 MG/DL (0.2-1.0); BLOOD UREA NITROGEN 36 mg/dL (7-18); CALCIUM 8.6 MG/DL (8.5-10.1); CARBON DIOXIDE 26 MMOL/L (21-32); CHLORIDE 108 MMOL/L (98-107); CREATININE 0.6 MG/DL (0.55-1.30); PHOSPHORUS 3.6 MG/DL (2.5-4.9); POTASSIUM 3.9 MMOL/L (3.5-5.1); SODIUM 143 MMOL/L (136-145)
[2019-09-08] MEDS: Pantoprazole Inj IVP SCH ×2 (08:42→21:12)
[2019-09-08] MEDS: Heparin 5000 units/ml inj SUBQ SCH ×2 (08:44→21:15)
[2019-09-08] MEDS: Amiodarone 200mg tab NG SCH (08:45)
--- NOTE | 2019-09-08 10:11 | Pulmonolgy Critical Care Note ---
Critical Care - Asmt/Plan Problems: (1) Acute respiratory failure (2) Cardiopulmonary arrest (3) Cardiac LV ejection fraction 40% (4) Nosocomial pneumonia (5) Atrial fibrillation (6) Pulmonary edema (7) COPD (chronic obstructive pulmonary disease) (8) CAD (coronary artery disease) (9) Dementia with behavioral disturbance Respiratory: monitor respiratory rate, adjust FIO2, CXR Cardiac: continue to monitor HR/BP Renal: F/U I&O, keep IV fluid, check electrolytes Gastrointestinal: continue feedings/current rate Endocrine: monitor blood sugar, continue sliding scale insulin Hematologic: transfuse if hgb<8.5 Neurologic: PRN Morphine, keep patient comfortable Prophylaxis: Protonix Disposition: keep in ICU Time Spent (Minutes): 40 Notes Reviewed: capability lead, cardio, renal Discussed with: nurses, consultants, [facility] enc[employer]erman[employer] local - Objective Last 24 Hour Vital Signs Date Time Temp Pulse Resp B/P (MAP) Pulse Ox O2 Delivery O2 Flow Rate FiO2 09/08/19 08:00 30 09/08/19 07:52 97 09/08/19 07:45 68 21 30 30 09/08/19 06:00 74 16 107/52 (70) 96 09/08/19 05:11 70 15 30 09/08/19 05:00 65 18 137/63 (87) 96 09/08/19 04:00 98.3 68 14 123/56 (78) 94 09/08/19 04:00 68 09/08/19 04:00 30 09/08/19 04:00 Mechanical Ventilator Mechanical Ventilator 09/08/19 03:00 69 16 132/54 (80) 92 09/08/19 02:42 67 15 30 09/08/19 02:06 66 20 100/45 (63) 94 09/08/19 01:00 70 16 123/65 (84) 93 09/08/19 00:38 79 23 30 09/08/19 00:00 65 09/08/19 00:00 Mechanical Ventilator Mechanical Ventilator 09/08/19 00:00 98.1 65 18 132/60 (84) 94 09/08/19 00:00 30 09/07/19 23:07 73 19 30 09/07/19 23:02 70 14 119/48 (71) 95 09/07/19 22:00 72 16 125/59 (81) 95 09/07/19 21:02 75 16 30 09/07/19 21:00 72 16 130/59 (82) 95 09/07/19 20:00 30 09/07/19 20:00 98.5 74 16 139/58 (85) 96 09/07/19 20:00 Mechanical Ventilator Mechanical Ventilator 09/07/19 20:00 74 09/07/19 19:10 72 19 30 09/07/19 19:00 70 14 138/49 (78) 96 09/07/19 18:00 98.1 73 16 130/49 (76) 95 09/07/19 17:00 30 09/07/19 17:00 69 15 146/56 (86) 95 09/07/19 16:48 81 18 30 09/07/19 16:00 74 16 134/55 (81) 96 09/07/19 16:00 74 09/07/19 16:00 Mechanical Ventilator Mechanical Ventilator 09/07/19 15:05 76 15 30 30 09/07/19 15:00 76 16 135/55 (81) 96 09/07/19 14:00 80 20 142/59 (86) 97 09/07/19 13:10 82 20 30 30 09/07/19 13:00 81 19 145/65 (91) 96 09/07/19 12:00 82 09/07/19 12:00 98.0 80 16 141/64 (89) 96 09/07/19 12:00 30 09/07/19 12:00 Mechanical Ventilator Mechanical Ventilator 09/07/19 11:23 88 18 30 30 09/07/19 11:00 87 18 132/64 (86) 96 Status: awake Condition: critical HEENT: atraumatic Neck: full ROM Lungs: rales, rhonchi Heart: HR/BP stable Abdomen: soft, active bowel sounds Extremities: no C/C/E Micro: Microbiology Date/Time Source Procedure Growth Status 09/05/19 17:00 Sputum Gram Stain - Final Resulted 09/05/19 17:00 Sputum Culture - Preliminary Proteus Mirabilis Resulted Accucheck: 150 Critical Care - Subjective ROS Limited/Unobtainable: No Condition: critical EKG Rhythm: Sinus Rhythm FI02: 30 Vent Support Breath Rate: 14 Vent Support Mode: CPAP Vent Tidal Volume: 500 Sputum Amount: Moderate PEEP: 5.0 PIP: 32 Tube Feeding Amount: 55 I&O: Intake and Output 09/07/19 09/08/19 19:00 07:00 Intake Total 660 ml 665 ml Output Total 560 ml 390 ml Balance 100 ml 275 ml Free Water 60 ml Tube Feeding 660 ml 605 ml Output Urine Total 560 ml 390 ml # Bowel Movements 1 CXR: last CXR from 09/05, will get one for tomorrow ET-Tube: 7.5 ET Position: 24 Labs: Laboratory Tests Test 09/07/19 15:05 09/08/19 03:30 Arterial Blood pH 7.384 (7.350-7.450) Arterial Blood Partial Pressure CO2 51.4 mmHg (35.0-45.0) H Arterial Blood Partial Pressure O2 91.9 mmHg (75.0-100.0) Arterial Blood HCO3 30.0 mmol/L (22.0-26.0) H Arterial Blood Oxygen Saturation 96.3 % (95-100) Arterial Blood Base Excess 4.1 (-2-2) H Joe Test Positive White Blood Count 6.3 K/UL (4.8-10.8) Red Blood Count 3.11 M/UL (4.70-6.10) L Hemoglobin 9.6 G/DL (14.2-18.0) L Hematocrit 28.8 % (42.0-52.0) L Mean Corpuscular Volume 93 FL (80-99) Mean Corpuscular Hemoglobin 31.0 PG (27.0-31.0) Mean Corpuscular Hemoglobin Concent 33.5 G/DL (32.0-36.0) Red Cell Distribution Width 13.5 % (11.6-14.8) Platelet Count 203 K/UL (150-450) Mean Platelet Volume 5.3 FL (6.5-10.1) L Neutrophils (%) (Auto) 62.6 % (45.0-75.0) Lymphocytes (%) (Auto) 24.3 % (20.0-45.0) Monocytes (%) (Auto) 6.7 % (1.0-10.0) Eosinophils (%) (Auto) 5.7 % (0.0-3.0) H Basophils (%) (Auto) 0.7 % (0.0-2.0) Sodium Level 143 MMOL/L (136-145) Potassium Level 3.9 MMOL/L (3.5-5.1) Chloride Level 108 MMOL/L (98-107) H Carbon Dioxide Level 26 MMOL/L (21-32) Anion Gap 9 mmol/L (5-15) Blood Urea Nitrogen 36 mg/dL (7-18) H Creatinine 0.6 MG/DL (0.55-1.30) Estimat Glomerular Filtration Rate > 60 mL/min (>60) Glucose Level 107 MG/DL (74-106) H Calcium Level 8.6 MG/DL (8.5-10.1) Phosphorus Level 3.6 MG/DL (2.5-4.9) Magnesium Level 1.8 MG/DL (1.8-2.4) Total Bilirubin 0.7 MG/DL (0.2-1.0) Aspartate Amino Transf (AST/SGOT) 23 U/L (15-37) Alanine Aminotransferase (ALT/SGPT) 48 U/L (12-78) Alkaline Phosphatase 82 U/L (46-116) Total Protein 5.0 G/DL (6.4-8.2) L Albumin 2.0 G/DL (3.4-5.0) L Globulin 3.0 g/dL Albumin/Globulin Ratio 0.7 (1.0-2.7) L Nicole Graves MD Sep 08, 2019 10:11
--- NOTE | 2019-09-08 10:19 | Infectious Diseases Prog Note ---
Assessment/Plan Assessment/Plan ASSESSMENT: The patient is a 79-year-old male with: Multiple reintubations, likely cannot maintain airway Afebrile No leukocytosis Developing PNA 08/31 CXR: There is a hazy opacity at the left lung base again noted unchanged. Mild linear densities are seen in the right midlung which may be atelectasis or scarring. 09/02 CXR: Hazy basilar opacities, most likely due to overlying soft tissue shadows but hazy infiltrates also possible. If the latter, stable on the left, new or increased on the right. Stable and satisfactory tube positions 09/04: Suspected pneumonia at the left lung base 09/05 CXR: Bilateral lower lobe infiltrates/atelectasis, similar to prior. Leukocytosis; Sp Fever , sp Sepsis, Sp Pneumonia ( probable asp), Sp RX -08/28 CXR: Interval removal of endotracheal tube. NG tube and left arm PICC line remain in place. Apparent worsening of aeration with increasing hazy opacities in the bilateral lower lungs which may in part be related to artifact from patient positioning however layering bilateral pleural effusions and bilateral airspace disease not excluded. -08/13 Scx: MDR-ACB (Tygacil LANI: 4) - CXR: 1. Streaky opacities in the right lower lung may represent atelectasis versus scarring. Left basilar opacity may represent atelectasis. Component of pneumonia is not excluded. Pulmonary vasculature congestion. -08/01 ucx NTD - sp cx: nl anastacio Urinary tract infection, SP Rx 08/31 SP rapid response and reintubation 08/17 Sp code blue and intubation , extubated 08/27 07/31 Sp Code blue and intubation , sp extubation 08/12 , Hyperlipidemia. COPD. History of GERD. History of encephalopathy. History of CAD/WV. History of cardiomyopathy. Hypertension. PLAN: DC colistin IV # 4...start cefepime #1 -08/28 SP Colistin INH (MDR-ACB) # 14 - 08/21/ SP Merrem 10 - 08/14 SP IV Vanco # 4 -3/ SP Zosyn and IV Vanco # 7/ , -08/01 SP Rocephin day # 10 - 07/31 sp sp Dox # 6 Monitor CBC. Monitor BMP. monitor temp and VS Monitor chest x-ray cont ICU Support DW RN Subjective Allergies: Coded Allergies: No Known Allergies (Unverified , 06/03/17) Subjective Afebrile. less frothy secretions pending bioethics Objective Vital Signs Last 24 Hour Vital Signs Date Time Temp Pulse Resp B/P (MAP) Pulse Ox O2 Delivery O2 Flow Rate FiO2 09/08/19 08:00 30 09/08/19 07:52 97 09/08/19 07:45 68 21 30 30 09/08/19 06:00 74 16 107/52 (70) 96 09/08/19 05:11 70 15 30 09/08/19 05:00 65 18 137/63 (87) 96 09/08/19 04:00 98.3 68 14 123/56 (78) 94 09/08/19 04:00 68 09/08/19 04:00 30 09/08/19 04:00 Mechanical Ventilator Mechanical Ventilator 09/08/19 03:00 69 16 132/54 (80) 92 09/08/19 02:42 67 15 30 09/08/19 02:06 66 20 100/45 (63) 94 09/08/19 01:00 70 16 123/65 (84) 93 09/08/19 00:38 79 23 30 09/08/19 00:00 65 09/08/19 00:00 Mechanical Ventilator Mechanical Ventilator 09/08/19 00:00 98.1 65 18 132/60 (84) 94 09/08/19 00:00 30 09/07/19 23:07 73 19 30 09/07/19 23:02 70 14 119/48 (71) 95 09/07/19 22:00 72 16 125/59 (81) 95 09/07/19 21:02 75 16 30 09/07/19 21:00 72 16 130/59 (82) 95 09/07/19 20:00 30 09/07/19 20:00 98.5 74 16 139/58 (85) 96 09/07/19 20:00 Mechanical Ventilator Mechanical Ventilator 09/07/19 20:00 74 09/07/19 19:10 72 19 30 09/07/19 19:00 70 14 138/49 (78) 96 09/07/19 18:00 98.1 73 16 130/49 (76) 95 09/07/19 17:00 30 09/07/19 17:00 69 15 146/56 (86) 95 09/07/19 16:48 81 18 30 09/07/19 16:00 74 16 134/55 (81) 96 09/07/19 16:00 74 09/07/19 16:00 Mechanical Ventilator Mechanical Ventilator 09/07/19 15:05 76 15 30 30 09/07/19 15:00 76 16 135/55 (81) 96 09/07/19 14:00 80 20 142/59 (86) 97 09/07/19 13:10 82 20 30 30 09/07/19 13:00 81 19 145/65 (91) 96 09/07/19 12:00 82 09/07/19 12:00 98.0 80 16 141/64 (89) 96 09/07/19 12:00 30 09/07/19 12:00 Mechanical Ventilator Mechanical Ventilator 09/07/19 11:23 88 18 30 30 09/07/19 11:00 87 18 132/64 (86) 96 Height (Feet): 5 Height (Inches): 6.00 Weight (Pounds): 220 Objective Gen: NAD HEENT: ETT CV: RRR. no rubs Resp: RRR. equal chest rise. no wheezes. Abd: nondistended. no palpable masses Neuro: not following commands Microbiology Date/Time Source Procedure Growth Status 09/05/19 17:00 Sputum Gram Stain - Final Resulted 09/05/19 17:00 Sputum Culture - Preliminary Proteus Mirabilis Resulted Laboratory Tests Test 09/07/19 15:05 09/08/19 03:30 Arterial Blood pH 7.384 (7.350-7.450) Arterial Blood Partial Pressure CO2 51.4 mmHg (35.0-45.0) H Arterial Blood Partial Pressure O2 91.9 mmHg (75.0-100.0) Arterial Blood HCO3 30.0 mmol/L (22.0-26.0) H Arterial Blood Oxygen Saturation 96.3 % (95-100) Arterial Blood Base Excess 4.1 (-2-2) H Joe Test Positive White Blood Count 6.3 K/UL (4.8-10.8) Red Blood Count 3.11 M/UL (4.70-6.10) L Hemoglobin 9.6 G/DL (14.2-18.0) L Hematocrit 28.8 % (42.0-52.0) L Mean Corpuscular Volume 93 FL (80-99) Mean Corpuscular Hemoglobin 31.0 PG (27.0-31.0) Mean Corpuscular Hemoglobin Concent 33.5 G/DL (32.0-36.0) Red Cell Distribution Width 13.5 % (11.6-14.8) Platelet Count 203 K/UL (150-450) Mean Platelet Volume 5.3 FL (6.5-10.1) L Neutrophils (%) (Auto) 62.6 % (45.0-75.0) Lymphocytes (%) (Auto) 24.3 % (20.0-45.0) Monocytes (%) (Auto) 6.7 % (1.0-10.0) Eosinophils (%) (Auto) 5.7 % (0.0-3.0) H Basophils (%) (Auto) 0.7 % (0.0-2.0) Sodium Level 143 MMOL/L (136-145) Potassium Level 3.9 MMOL/L (3.5-5.1) Chloride Level 108 MMOL/L (98-107) H Carbon Dioxide Level 26 MMOL/L (21-32) Anion Gap 9 mmol/L (5-15) Blood Urea Nitrogen 36 mg/dL (7-18) H Creatinine 0.6 MG/DL (0.55-1.30) Estimat Glomerular Filtration Rate > 60 mL/min (>60) Glucose Level 107 MG/DL (74-106) H Calcium Level 8.6 MG/DL (8.5-10.1) Phosphorus Level 3.6 MG/DL (2.5-4.9) Magnesium Level 1.8 MG/DL (1.8-2.4) Total Bilirubin 0.7 MG/DL (0.2-1.0) Aspartate Amino Transf (AST/SGOT) 23 U/L (15-37) Alanine Aminotransferase (ALT/SGPT) 48 U/L (12-78) Alkaline Phosphatase 82 U/L (46-116) Total Protein 5.0 G/DL (6.4-8.2) L Albumin 2.0 G/DL (3.4-5.0) L Globulin 3.0 g/dL Albumin/Globulin Ratio 0.7 (1.0-2.7) L Current Medications Medications (Trade) Dose Ordered Sig/Amaris Route PRN Reason Start Time Stop Time Status Last Admin Dose Admin Acetaminophen (Tylenol) 650 mg Q4H PRN NG Mild Pain/Temp > 100.5 09/01/19 10:20 10/01/19 10:19 Amiodarone HCl (Cordarone) 200 mg DAILY NG 09/01/19 10:22 11/30/19 10:21 09/08/19 08:45 Atorvastatin Calcium (Lipitor) 40 mg BEDTIME NG 09/01/19 21:00 09/13/19 20:59 09/07/19 20:55 Chlorhexidine Gluconate (Kamila-Hex 2%) 1 applic DAILY@1999 TOPIC 09/01/19 20:00 09/17/19 19:59 09/07/19 20:54 Clopidogrel Bisulfate (Plavix) 75 mg DAILY NG 09/01/19 10:22 10/01/19 10:21 09/08/19 08:45 Colistimethate Sodium (Colistin) 75 mg EVERY 12 HOURS IVP 09/05/19 22:00 09/12/19 21:59 09/07/19 20:54 Heparin Sodium (Porcine) (Heparin 5000 units/ml) 5,000 units EVERY 12 HOURS SUBQ 09/01/19 10:23 10/16/19 10:22 09/08/19 08:44 Hydralazine HCl (Apresoline) 25 mg Q6HR PRN NG SBP above 160 09/02/19 01:45 12/01/19 01:44 Lorazepam (Ativan 2mg/ml 1ml) 2 mg Q4H PRN IV For Anxiety 09/01/19 10:20 09/08/19 10:19 09/02/19 03:18 Morphine Sulfate (Morphine Sulfate) 2 mg Q4H PRN IVP For Pain 09/01/19 10:21 09/08/19 10:20 Pantoprazole (Protonix) 40 mg EVERY 12 HOURS IVP 09/01/19 10:23 10/01/19 10:22 09/08/19 08:42 Rafy Page MD Sep 08, 2019 10:19
[2019-09-08] MEDS: Colistin 150mg vial IVP SCH ×2 (11:21→22:06)
--- NOTE | 2019-09-08 11:23 | Nephrology Progress Note ---
Assessment/Plan Problem List: (1) AUREA (acute kidney injury) Assessment: Serum creatinine rising (2) Cardiopulmonary arrest (3) Respiratory failure (4) Cardiomyopathy (5) Obesity (BMI 30.0-34.9) (6) DMII (diabetes mellitus, type 2) Assessment Acute Renal Failure : AUREA Most likely due to cardiorespiratory arrest and episode of hypotension. Patient also has cardiomyopathy with Ej Fx of 40 % on admission Obese : BMI 34.4 ? DM Other Dx (1) Cardiopulmonary arrest (2) Nosocomial pneumonia (3) Acute respiratory failure (4) COPD (chronic obstructive pulmonary disease) (5) Atrial fibrillation (6) Dementia with behavioral disturbance (7) CAD (coronary artery disease) Plan Today's labs reviewed D5 W IV fluids for hypernatremia as needed pressors are off now patient's condition somewhat more stable In ICU He is intubated ventilator, weaning is being tried His blood pressure is more stable Overall he is still doing poorly Adjust blood pressure medications Stress dose of steroids which we will start tapering today Previously Monitor renal parameters. Serum creatinine improved Monitor urine output. Urine output improved. Avoid nephrotoxics. Weaning as possible. Remains intubated at this time. Correct electrolyte imbalances. Change tube feeding to Glucerna. Subjective ROS Limited/Unobtainable: Yes Objective Objective Last 24 Hour Vital Signs Date Time Temp Pulse Resp B/P (MAP) Pulse Ox O2 Delivery O2 Flow Rate FiO2 09/08/19 10:00 72 15 125/56 (79) 93 09/08/19 09:00 78 19 118/61 (80) 96 09/08/19 08:00 Mechanical Ventilator Mechanical Ventilator 09/08/19 08:00 30 09/08/19 08:00 74 14 133/58 (83) 95 09/08/19 07:52 97 09/08/19 07:45 68 21 30 30 09/08/19 07:00 98.6 66 16 107/70 (82) 96 09/08/19 06:00 74 16 107/52 (70) 96 09/08/19 05:11 70 15 30 09/08/19 05:00 65 18 137/63 (87) 96 09/08/19 04:00 98.3 68 14 123/56 (78) 94 09/08/19 04:00 68 09/08/19 04:00 30 09/08/19 04:00 Mechanical Ventilator Mechanical Ventilator 09/08/19 03:00 69 16 132/54 (80) 92 09/08/19 02:42 67 15 30 09/08/19 02:06 66 20 100/45 (63) 94 09/08/19 01:00 70 16 123/65 (84) 93 09/08/19 00:38 79 23 30 09/08/19 00:00 65 09/08/19 00:00 Mechanical Ventilator Mechanical Ventilator 09/08/19 00:00 98.1 65 18 132/60 (84) 94 09/08/19 00:00 30 09/07/19 23:07 73 19 30 09/07/19 23:02 70 14 119/48 (71) 95 09/07/19 22:00 72 16 125/59 (81) 95 09/07/19 21:02 75 16 30 09/07/19 21:00 72 16 130/59 (82) 95 09/07/19 20:00 30 09/07/19 20:00 98.5 74 16 139/58 (85) 96 09/07/19 20:00 Mechanical Ventilator Mechanical Ventilator 09/07/19 20:00 74 09/07/19 19:10 72 19 30 09/07/19 19:00 70 14 138/49 (78) 96 09/07/19 18:00 98.1 73 16 130/49 (76) 95 09/07/19 17:00 30 09/07/19 17:00 69 15 146/56 (86) 95 09/07/19 16:48 81 18 30 09/07/19 16:00 74 16 134/55 (81) 96 09/07/19 16:00 74 09/07/19 16:00 Mechanical Ventilator Mechanical Ventilator 09/07/19 15:05 76 15 30 30 09/07/19 15:00 76 16 135/55 (81) 96 09/07/19 14:00 80 20 142/59 (86) 97 09/07/19 13:10 82 20 30 30 09/07/19 13:00 81 19 145/65 (91) 96 09/07/19 12:00 82 09/07/19 12:00 98.0 80 16 141/64 (89) 96 09/07/19 12:00 30 09/07/19 12:00 Mechanical Ventilator Mechanical Ventilator 09/07/19 11:23 88 18 30 30 Intake and Output 09/07/19 09/08/19 19:00 07:00 Intake Total 660 ml 665 ml Output Total 560 ml 425 ml Balance 100 ml 240 ml Free Water 60 ml Tube Feeding 660 ml 605 ml Output Urine Total 560 ml 425 ml # Bowel Movements 1 Laboratory Tests 09/07/19 15:05: Arterial Blood pH 7.384, Arterial Blood Partial Pressure CO2 51.4H, Arterial Blood Partial Pressure O2 91.9, Arterial Blood HCO3 30.0H, Arterial Blood Oxygen Saturation 96.3, Arterial Blood Base Excess 4.1H, Joe Test Positive 09/08/19 03:30: White Blood Count 6.3, Red Blood Count 3.11L, Hemoglobin 9.6L, Hematocrit 28.8L , Mean Corpuscular Volume 93, Mean Corpuscular Hemoglobin 31.0, Mean Corpuscular Hemoglobin Concent 33.5, Red Cell Distribution Width 13.5, Platelet Count 203, Mean Platelet Volume 5.3L, Neutrophils (%) (Auto) 62.6, Lymphocytes ( %) (Auto) 24.3, Monocytes (%) (Auto) 6.7, Eosinophils (%) (Auto) 5.7H, Basophils (%) (Auto) 0.7, Sodium Level 143, Potassium Level 3.9, Chloride Level 108H, Carbon Dioxide Level 26, Anion Gap 9, Blood Urea Nitrogen 36H, Creatinine 0.6, Estimat Glomerular Filtration Rate > 60, Glucose Level 107H, Calcium Level 8.6, Phosphorus Level 3.6, Magnesium Level 1.8, Total Bilirubin 0.7, Aspartate Amino Transf (AST/SGOT) 23, Alanine Aminotransferase (ALT/SGPT) 48, Alkaline Phosphatase 82, Total Protein 5.0L, Albumin 2.0L, Globulin 3.0, Albumin/ Globulin Ratio 0.7L Height (Feet): 5 Height (Inches): 6.00 Weight (Pounds): 220 General Appearance: no apparent distress EENT: other - Remains intubated on vent Cardiovascular: normal rate Respiratory/Chest: decreased breath sounds Abdomen: distended Objective no change Yunior Sexton MD Sep 08, 2019 11:23
[2019-09-08] MEDS ORDERED: NS 275ml ONE ×2 (13:16→14:06)
[2019-09-08] MEDS ORDERED: Tubing IV Secondary IV ONE (13:16)
[2019-09-08] MEDS ORDERED: Sterile Water Irrig 1000ml IRRIG ONE (14:06)
--- NOTE | 2019-09-08 17:50 | Surgery Progress Note ---
Surgery Progress Note Subjective Additional Comments not weaning off vent cxr planned for tomorrow will discuss with pulm for trach consideration now thank you Objective Last 24 Hour Vital Signs Date Time Temp Pulse Resp B/P (MAP) Pulse Ox O2 Delivery O2 Flow Rate FiO2 09/08/19 17:44 Mechanical Ventilator Mechanical Ventilator 09/08/19 17:24 70 17 30 30 09/08/19 17:00 66 14 103/48 (66) 94 09/08/19 16:00 30 09/08/19 16:00 Mechanical Ventilator Mechanical Ventilator 09/08/19 16:00 75 09/08/19 16:00 98.5 75 17 131/55 (80) 98 09/08/19 15:23 75 17 30 30 09/08/19 15:00 73 17 140/55 (83) 98 09/08/19 14:00 68 14 111/51 (71) 95 09/08/19 13:00 68 14 104/55 (71) 96 09/08/19 12:00 99.0 73 15 124/56 (78) 99 09/08/19 12:00 Mechanical Ventilator Mechanical Ventilator 09/08/19 12:00 75 09/08/19 12:00 30 09/08/19 11:55 75 21 30 30 09/08/19 11:00 72 15 131/59 (83) 97 09/08/19 10:00 72 15 125/56 (79) 93 09/08/19 09:00 78 19 118/61 (80) 96 09/08/19 08:00 Mechanical Ventilator Mechanical Ventilator 09/08/19 08:00 67 09/08/19 08:00 30 09/08/19 08:00 74 14 133/58 (83) 95 09/08/19 07:52 97 09/08/19 07:45 68 21 30 30 09/08/19 07:00 98.6 66 16 107/70 (82) 96 09/08/19 06:00 74 16 107/52 (70) 96 09/08/19 05:11 70 15 30 09/08/19 05:00 65 18 137/63 (87) 96 09/08/19 04:00 98.3 68 14 123/56 (78) 94 09/08/19 04:00 68 09/08/19 04:00 30 09/08/19 04:00 Mechanical Ventilator Mechanical Ventilator 09/08/19 03:00 69 16 132/54 (80) 92 09/08/19 02:42 67 15 30 09/08/19 02:06 66 20 100/45 (63) 94 09/08/19 01:00 70 16 123/65 (84) 93 09/08/19 00:38 79 23 30 09/08/19 00:00 65 09/08/19 00:00 Mechanical Ventilator Mechanical Ventilator 09/08/19 00:00 98.1 65 18 132/60 (84) 94 09/08/19 00:00 30 09/07/19 23:07 73 19 30 09/07/19 23:02 70 14 119/48 (71) 95 09/07/19 22:00 72 16 125/59 (81) 95 09/07/19 21:02 75 16 30 09/07/19 21:00 72 16 130/59 (82) 95 09/07/19 20:00 30 09/07/19 20:00 98.5 74 16 139/58 (85) 96 09/07/19 20:00 Mechanical Ventilator Mechanical Ventilator 09/07/19 20:00 74 09/07/19 19:10 72 19 30 09/07/19 19:00 70 14 138/49 (78) 96 09/07/19 18:00 98.1 73 16 130/49 (76) 95 I&O Intake and Output 09/07/19 09/08/19 19:00 07:00 Intake Total 660 ml 665 ml Output Total 560 ml 425 ml Balance 100 ml 240 ml Free Water 60 ml Tube Feeding 660 ml 605 ml Output Urine Total 560 ml 425 ml # Bowel Movements 1 Dressing: saturated Wound: clean Cardiovascular: RSR Respiratory: clear, decreased breath sounds Abdomen: soft, non-tender, present bowel sounds Extremities: no tenderness, no cyanosis Laboratory Tests Test 09/08/19 03:30 White Blood Count 6.3 K/UL (4.8-10.8) Red Blood Count 3.11 M/UL (4.70-6.10) L Hemoglobin 9.6 G/DL (14.2-18.0) L Hematocrit 28.8 % (42.0-52.0) L Mean Corpuscular Volume 93 FL (80-99) Mean Corpuscular Hemoglobin 31.0 PG (27.0-31.0) Mean Corpuscular Hemoglobin Concent 33.5 G/DL (32.0-36.0) Red Cell Distribution Width 13.5 % (11.6-14.8) Platelet Count 203 K/UL (150-450) Mean Platelet Volume 5.3 FL (6.5-10.1) L Neutrophils (%) (Auto) 62.6 % (45.0-75.0) Lymphocytes (%) (Auto) 24.3 % (20.0-45.0) Monocytes (%) (Auto) 6.7 % (1.0-10.0) Eosinophils (%) (Auto) 5.7 % (0.0-3.0) H Basophils (%) (Auto) 0.7 % (0.0-2.0) Sodium Level 143 MMOL/L (136-145) Potassium Level 3.9 MMOL/L (3.5-5.1) Chloride Level 108 MMOL/L (98-107) H Carbon Dioxide Level 26 MMOL/L (21-32) Anion Gap 9 mmol/L (5-15) Blood Urea Nitrogen 36 mg/dL (7-18) H Creatinine 0.6 MG/DL (0.55-1.30) Estimat Glomerular Filtration Rate > 60 mL/min (>60) Glucose Level 107 MG/DL (74-106) H Calcium Level 8.6 MG/DL (8.5-10.1) Phosphorus Level 3.6 MG/DL (2.5-4.9) Magnesium Level 1.8 MG/DL (1.8-2.4) Total Bilirubin 0.7 MG/DL (0.2-1.0) Aspartate Amino Transf (AST/SGOT) 23 U/L (15-37) Alanine Aminotransferase (ALT/SGPT) 48 U/L (12-78) Alkaline Phosphatase 82 U/L (46-116) Total Protein 5.0 G/DL (6.4-8.2) L Albumin 2.0 G/DL (3.4-5.0) L Globulin 3.0 g/dL Albumin/Globulin Ratio 0.7 (1.0-2.7) L Plan Problems: (1) Nosocomial pneumonia (2) AUREA (acute kidney injury) (3) Cardiomyopathy (4) Obesity (BMI 30.0-34.9) (5) DMII (diabetes mellitus, type 2) (6) Cardiac LV ejection fraction 40% (7) Pulmonary edema (8) Cardiopulmonary arrest Assessment & Plan: Cardiopulmonary arrest septic requiring urgent emergency line placement for pressors and fluids and meds Please see procedure report Full examination performed no other surgical issues found at this time etiology unknown likely surgical in nature Antibiotics fluids Pressors Vent weaning trials right groin site okay. no hematoma. no bleeding left arm picc okay NG tube is present in good position. A partial left lateral decubitus view of the abdomen performed as well as a supine view. The left lateral decubitus view is not adequate as the area of interest which would be the nondependent right side of the abdomen, which is the area of interest was not imaged and is beyond the field-of -view of the x-ray. Bowel gas pattern appears nonobstructive on the basis of the partial images obtained. off pressors labs reviewed cont tube feeds Unable to wean from ventilator. Labs noted ABG noted imaging reviewed cont weaning. if possible extubate otherwise will consider trach extubated improving monitor in ICU for now downgrade re-intubated on vent support on pressors wean pressors will monitor * Interval removal of endotracheal tube. NG tube and left arm PICC line remain in place. * Apparent worsening of aeration with increasing hazy opacities in the bilateral lower lungs which may in part be related to artifact from patient positioning however layering bilateral pleural effusions and bilateral airspace disease not excluded. Follow-up recommended. will need trach does not seem to be able to wean (9) Respiratory failure (10) History of hypertension (11) COPD (chronic obstructive pulmonary disease) (12) CAD (coronary artery disease) (13) Atrial fibrillation (14) Dementia with behavioral disturbance (15) Upper respiratory infection (16) Acute respiratory failure (17) Dyspnea (18) UTI (urinary tract infection) Prosper Hummel Sep 08, 2019 17:50
[2019-09-08] MEDS: Dyna-Hex 2% Top Sol 2oz TOPIC SCH (21:11)
[2019-09-08] MEDS: Atorvastatin 20mg tab NG SCH (21:13)
[2019-09-09] VITALS (24 sets, daily range): BP systolic 105–157; BP diastolic 43–70
--- NOTE | 2019-09-09 01:30 | Progress Note ---
DATE: 09/08/2019 CARDIOLOGY PROGRESS NOTE SUBJECTIVE: Patient remains on ventilator support. Weaning off the ventilator remains an issue. Patient continues to fail weaning efforts and has had repeated intubations due to respiratory failure as previously described in my notes. PHYSICAL EXAMINATION: VITAL SIGNS: Blood pressure 131/55, heart rate 75, respirations 17, afebrile. T-max 99. Monitor, AFib with bundle-branch block. LUNGS: Bilateral breath sounds. Rhonchi. CARDIAC: Irregularly irregular rhythm. Normal S1, S2. A 1/6 systolic murmur at apex. ABDOMEN: Soft. NG tube in place. EXTREMITIES: Trace edema. LABORATORY DATA: White count 6, hemoglobin 9.6. Sodium 143, potassium 3.9, bicarb 26, BUN 36, creatinine 0.6. Magnesium 1.8. IMPRESSION: 1. Respiratory failure. 2. Paroxysmal atrial fibrillation. 3. Acute on chronic diastolic congestive heart failure. 4. Ischemic cardiomyopathy. 5. Acute on chronic respiratory acidosis. PLAN: Patient needs tracheostomy for life-sustaining measures. Even if he is weaned off the ventilator, he has demonstrated rapid recurring re-intubations during this hospital stay. Discussions undertaken with consulting staff. Cardiovascular regimen updated. Patient to remain on amiodarone at this time with close monitoring of heart rate. Saeed Sim M.D. DR: DARYA JOB#: [id number] CC:
[2019-09-09 04:15] LABS: BASOPHILS % (AUTO) 0.8 % (0.0-2.0); EOSINOPHILS % (AUTO) 6.8 % (0.0-3.0); HEMATOCRIT 29.2 % (42.0-52.0); HEMOGLOBIN 9.9 G/DL (14.2-18.0); LYMPHOCYTES % (AUTO) 24.4 % (20.0-45.0); MEAN CORPUSCULAR VOLUME 92 FL (80-99); MONOCYTES % (AUTO) 6.7 % (1.0-10.0); NEUTROPHILS % (AUTO) 61.3 % (45.0-75.0); PLATELET COUNT 188 K/UL (150-450); RED BLOOD COUNT 3.17 M/UL (4.70-6.10); RED CELL DISTRIBUTION WIDTH 13.3 % (11.6-14.8); WHITE BLOOD COUNT 5.8 K/UL (4.8-10.8)
[2019-09-09 04:52] LABS: ALANINE AMINOTRANSFERASE 48 U/L (12-78); ALBUMIN 2.1 G/DL (3.4-5.0); ALBUMIN/GLOBULIN RATIO 0.7 (1.0-2.7); ALKALINE PHOSPHATASE 84 U/L (46-116); ANION GAP 9 mmol/L (5-15); ASPARTATE AMINO TRANSFERASE 24 U/L (15-37); BILIRUBIN,TOTAL 0.6 MG/DL (0.2-1.0); BLOOD UREA NITROGEN 38 mg/dL (7-18); CALCIUM 8.7 MG/DL (8.5-10.1); CARBON DIOXIDE 28 MMOL/L (21-32); CHLORIDE 107 MMOL/L (98-107); CREATININE 0.7 MG/DL (0.55-1.30); POTASSIUM 3.8 MMOL/L (3.5-5.1); SODIUM 144 MMOL/L (136-145)
[2019-09-09] MEDS: Pantoprazole Inj IVP SCH ×2 (08:53→21:17)
[2019-09-09] MEDS: Amiodarone 200mg tab NG SCH (08:53)
[2019-09-09] MEDS: Colistin 150mg vial IVP SCH ×2 (08:53→21:24)
[2019-09-09] MEDS: Heparin 5000 units/ml inj SUBQ SCH ×2 (08:54→21:20)
--- NOTE | 2019-09-09 09:31 | Diagnostic Imaging Report ---
Indication: Dyspnea Technique: One view of the chest Comparison: 09/09/2019 Findings: Stable satisfactory positions of endotracheal and nasogastric tubes. Hazy left greater than right basilar opacity and borderline interstitial congestive changes persist. The heart size is upper limits of normal. Left arm PICC is again demonstrated Impression: Unchanged, over 3 days, findings as above.
--- NOTE | 2019-09-09 10:18 | Infectious Diseases Prog Note ---
Assessment/Plan Assessment/Plan ASSESSMENT: The patient is a 79-year-old male with: Multiple reintubations, likely cannot maintain airway Low grade temp, SP No leukocytosis Developing PNA 08/31 CXR: There is a hazy opacity at the left lung base again noted unchanged. Mild linear densities are seen in the right midlung which may be atelectasis or scarring. 09/02 CXR: Hazy basilar opacities, most likely due to overlying soft tissue shadows but hazy infiltrates also possible. If the latter, stable on the left, new or increased on the right. 09/04: Suspected pneumonia at the left lung base 09/05 CXR: Bilateral lower lobe infiltrates/atelectasis, similar to prior. 09/08 CXR: Hazy left greater than right basilar opacity and borderline interstitial congestive changes persist. Leukocytosis; Sp Fever , sp Sepsis, Sp Pneumonia ( probable asp), Sp RX -08/28 CXR: Interval removal of endotracheal tube. NG tube and left arm PICC line remain in place. Apparent worsening of aeration with increasing hazy opacities in the bilateral lower lungs which may in part be related to artifact from patient positioning however layering bilateral pleural effusions and bilateral airspace disease not excluded. -08/13 Scx: MDR-ACB (Tygacil LANI: 4) - CXR: 1. Streaky opacities in the right lower lung may represent atelectasis versus scarring. Left basilar opacity may represent atelectasis. Component of pneumonia is not excluded. Pulmonary vasculature congestion. -08/01 ucx NTD - sp cx: nl anastacio Urinary tract infection, SP Rx 08/31 SP rapid response and reintubation 08/17 Sp code blue and intubation , extubated 08/27 07/31 Sp Code blue and intubation , sp extubation 08/12 , Hyperlipidemia. COPD. History of GERD. History of encephalopathy. History of CAD/MA. History of cardiomyopathy. Hypertension. PLAN: Colistin #5. f/u sp cx -08/28 SP Colistin INH (MDR-ACB) # 14 - 08/22/19 SP Merrem 10 - 08/14 SP IV Vanco # 4 -3/ SP Zosyn and IV Vanco # 7/ , -08/01 SP Rocephin day # - 07/31 sp sp Dox # 6 Monitor CBC. Monitor BMP. monitor temp and VS Monitor chest x-ray cont ICU Support DW RN Subjective Allergies: Coded Allergies: No Known Allergies (Unverified , 06/03/17) Subjective Afebrile. No leukocytosis possible trach tomorrow Objective Vital Signs Last 24 Hour Vital Signs Date Time Temp Pulse Resp B/P (MAP) Pulse Ox O2 Delivery O2 Flow Rate FiO2 09/09/19 09:21 77 19 30 30 09/09/19 08:00 Mechanical Ventilator Mechanical Ventilator 09/09/19 08:00 30 09/09/19 07:00 77 18 118/47 (70) 96 09/09/19 06:51 77 20 30 30 09/09/19 06:29 74 15 09/09/19 06:00 72 16 117/51 (73) 96 09/09/19 05:09 71 15 30 09/09/19 05:00 67 14 114/51 (72) 95 09/09/19 04:00 Mechanical Ventilator Mechanical Ventilator 09/09/19 04:00 72 09/09/19 04:00 30 09/09/19 04:00 98.6 76 24 121/49 (73) 09/09/19 03:05 78 16 30 09/09/19 03:00 76 17 138/70 (92) 96 09/09/19 02:00 74 18 132/60 (84) 96 09/09/19 01:30 73 19 30 09/09/19 01:00 73 15 139/53 (81) 96 09/09/19 00:00 80 09/09/19 00:00 Mechanical Ventilator Mechanical Ventilator 09/09/19 00:00 98.7 76 18 133/59 (83) 95 09/09/19 00:00 30 09/08/19 23:25 71 15 30 09/08/19 23:00 75 17 141/69 (93) 96 09/08/19 22:00 71 19 123/54 (77) 95 09/08/19 21:20 71 18 30 09/08/19 21:00 75 17 145/58 (87) 97 09/08/19 20:00 30 09/08/19 20:00 98.5 73 16 131/62 (85) 96 09/08/19 20:00 Mechanical Ventilator Mechanical Ventilator 09/08/19 20:00 84 09/08/19 19:36 77 16 30 09/08/19 19:00 74 20 134/54 (80) 96 09/08/19 18:00 71 16 136/58 (84) 96 09/08/19 17:44 Mechanical Ventilator Mechanical Ventilator 09/08/19 17:24 70 17 30 30 09/08/19 17:00 66 14 103/48 (66) 94 09/08/19 16:00 30 09/08/19 16:00 Mechanical Ventilator Mechanical Ventilator 09/08/19 16:00 75 09/08/19 16:00 98.5 75 17 131/55 (80) 98 09/08/19 15:23 75 17 30 30 09/08/19 15:00 73 17 140/55 (83) 98 09/08/19 14:00 68 14 111/51 (71) 95 09/08/19 13:00 68 14 104/55 (71) 96 09/08/19 12:00 99.0 73 15 124/56 (78) 99 09/08/19 12:00 Mechanical Ventilator Mechanical Ventilator 09/08/19 12:00 75 09/08/19 12:00 30 09/08/19 11:55 75 21 30 30 09/08/19 11:00 72 15 131/59 (83) 97 Height (Feet): 5 Height (Inches): 6.00 Weight (Pounds): 210 Objective Gen: NAD HEENT: ETT CV: RRR. no rubs Resp: RRR. equal chest rise. no wheezes. Abd: nondistended. no palpable masses Neuro: not following commands Laboratory Tests Test 09/09/19 03:45 White Blood Count 5.8 K/UL (4.8-10.8) Red Blood Count 3.17 M/UL (4.70-6.10) L Hemoglobin 9.9 G/DL (14.2-18.0) L Hematocrit 29.2 % (42.0-52.0) L Mean Corpuscular Volume 92 FL (80-99) Mean Corpuscular Hemoglobin 31.2 PG (27.0-31.0) H Mean Corpuscular Hemoglobin Concent 33.8 G/DL (32.0-36.0) Red Cell Distribution Width 13.3 % (11.6-14.8) Platelet Count 188 K/UL (150-450) Mean Platelet Volume 5.6 FL (6.5-10.1) L Neutrophils (%) (Auto) 61.3 % (45.0-75.0) Lymphocytes (%) (Auto) 24.4 % (20.0-45.0) Monocytes (%) (Auto) 6.7 % (1.0-10.0) Eosinophils (%) (Auto) 6.8 % (0.0-3.0) H Basophils (%) (Auto) 0.8 % (0.0-2.0) Sodium Level 144 MMOL/L (136-145) Potassium Level 3.8 MMOL/L (3.5-5.1) Chloride Level 107 MMOL/L (98-107) Carbon Dioxide Level 28 MMOL/L (21-32) Anion Gap 9 mmol/L (5-15) Blood Urea Nitrogen 38 mg/dL (7-18) H Creatinine 0.7 MG/DL (0.55-1.30) Estimat Glomerular Filtration Rate > 60 mL/min (>60) Glucose Level 119 MG/DL (74-106) H Calcium Level 8.7 MG/DL (8.5-10.1) Total Bilirubin 0.6 MG/DL (0.2-1.0) Aspartate Amino Transf (AST/SGOT) 24 U/L (15-37) Alanine Aminotransferase (ALT/SGPT) 48 U/L (12-78) Alkaline Phosphatase 84 U/L (46-116) Pro-B-Type Natriuretic Peptide 1376 pg/mL (0-125) H Total Protein 5.1 G/DL (6.4-8.2) L Albumin 2.1 G/DL (3.4-5.0) L Globulin 3.0 g/dL Albumin/Globulin Ratio 0.7 (1.0-2.7) L Current Medications Medications (Trade) Dose Ordered Sig/Amaris Route PRN Reason Start Time Stop Time Status Last Admin Dose Admin Acetaminophen (Tylenol) 650 mg Q4H PRN NG Mild Pain/Temp > 100.5 09/01/19 10:20 10/01/19 10:19 Amiodarone HCl (Cordarone) 200 mg DAILY NG 09/01/19 10:22 11/30/19 10:21 09/09/19 08:53 Atorvastatin Calcium (Lipitor) 40 mg BEDTIME NG 09/01/19 21:00 09/13/19 20:59 09/08/19 21:13 Chlorhexidine Gluconate (Kamila-Hex 2%) 1 applic DAILY@1999 TOPIC 09/01/19 20:00 09/17/19 19:59 09/08/19 21:11 Clopidogrel Bisulfate (Plavix) 75 mg DAILY NG 09/01/19 10:22 10/01/19 10:21 09/09/19 08:53 Colistimethate Sodium (Colistin) 75 mg EVERY 12 HOURS IVP 09/05/19 22:00 09/12/19 21:59 09/09/19 08:53 Heparin Sodium (Porcine) (Heparin 5000 units/ml) 5,000 units EVERY 12 HOURS SUBQ 09/01/19 10:23 10/16/19 10:22 09/09/19 08:54 Hydralazine HCl (Apresoline) 25 mg Q6HR PRN NG SBP above 160 09/02/19 01:45 12/01/19 01:44 Pantoprazole (Protonix) 40 mg EVERY 12 HOURS IVP 09/01/19 10:23 10/01/19 10:22 09/09/19 08:53 Rafy Page MD Sep 09, 2019 10:18
--- NOTE | 2019-09-09 11:00 | Pulmonolgy Critical Care Note ---
Critical Care - Asmt/Plan Problems: (1) Acute respiratory failure (2) Cardiopulmonary arrest (3) Cardiac LV ejection fraction 40% (4) Nosocomial pneumonia (5) Atrial fibrillation (6) Pulmonary edema (7) COPD (chronic obstructive pulmonary disease) (8) CAD (coronary artery disease) (9) Dementia with behavioral disturbance Respiratory: monitor respiratory rate, adjust FIO2 Cardiac: continue to monitor HR/BP Renal: F/U I&O, check electrolytes Infectious Disease: check cultures, continue antibiotics Gastrointestinal: continue feedings/current rate Endocrine: monitor blood sugar Hematologic: monitor H/H, transfuse if hgb<8.5 Neurologic: PRN Ativan, keep patient comfortable Prophylaxis: Protonix Time Spent (Minutes): 40 Notes Reviewed: assistant hairstylist Discussed with: nurses Critical Care - Objective Last 24 Hour Vital Signs Date Time Temp Pulse Resp B/P (MAP) Pulse Ox O2 Delivery O2 Flow Rate FiO2 09/09/19 09:21 77 19 30 30 09/09/19 08:00 Mechanical Ventilator Mechanical Ventilator 09/09/19 08:00 30 09/09/19 07:00 77 18 118/47 (70) 96 09/09/19 06:51 77 20 30 30 09/09/19 06:29 74 15 09/09/19 06:00 72 16 117/51 (73) 96 09/09/19 05:09 71 15 30 09/09/19 05:00 67 14 114/51 (72) 95 09/09/19 04:00 Mechanical Ventilator Mechanical Ventilator 09/09/19 04:00 72 09/09/19 04:00 30 09/09/19 04:00 98.6 76 24 121/49 (73) 09/09/19 03:05 78 16 30 09/09/19 03:00 76 17 138/70 (92) 96 09/09/19 02:00 74 18 132/60 (84) 96 09/09/19 01:30 73 19 30 09/09/19 01:00 73 15 139/53 (81) 96 09/09/19 00:00 80 09/09/19 00:00 Mechanical Ventilator Mechanical Ventilator 09/09/19 00:00 98.7 76 18 133/59 (83) 95 09/09/19 00:00 30 09/08/19 23:25 71 15 30 09/08/19 23:00 75 17 141/69 (93) 96 09/08/19 22:00 71 19 123/54 (77) 95 09/08/19 21:20 71 18 30 09/08/19 21:00 75 17 145/58 (87) 97 09/08/19 20:00 30 09/08/19 20:00 98.5 73 16 131/62 (85) 96 09/08/19 20:00 Mechanical Ventilator Mechanical Ventilator 09/08/19 20:00 84 09/08/19 19:36 77 16 30 09/08/19 19:00 74 20 134/54 (80) 96 09/08/19 18:00 71 16 136/58 (84) 96 09/08/19 17:44 Mechanical Ventilator Mechanical Ventilator 09/08/19 17:24 70 17 30 30 09/08/19 17:00 66 14 103/48 (66) 94 09/08/19 16:00 30 09/08/19 16:00 Mechanical Ventilator Mechanical Ventilator 09/08/19 16:00 75 09/08/19 16:00 98.5 75 17 131/55 (80) 98 09/08/19 15:23 75 17 30 30 09/08/19 15:00 73 17 140/55 (83) 98 09/08/19 14:00 68 14 111/51 (71) 95 09/08/19 13:00 68 14 104/55 (71) 96 09/08/19 12:00 99.0 73 15 124/56 (78) 99 09/08/19 12:00 Mechanical Ventilator Mechanical Ventilator 09/08/19 12:00 75 09/08/19 12:00 30 09/08/19 11:55 75 21 30 30 09/08/19 11:00 72 15 131/59 (83) 97 Status: awake Condition: improving HEENT: atraumatic Neck: full ROM Lungs: rales, rhonchi Heart: HR/BP stable Abdomen: soft Extremities: no C/C/E Accucheck: 150 Critical Care - Subjective ROS Limited/Unobtainable: No Condition: critical EKG Rhythm: Sinus Rhythm FI02: 30 Vent Support Breath Rate: 14 Vent Support Mode: CPAP Vent Tidal Volume: 500 Sputum Amount: Small PEEP: 5.0 PIP: 14 Tube Feeding Amount: 55 I&O: Intake and Output 09/08/19 09/09/19 19:00 07:00 Intake Total 495 ml 690 ml Output Total 390 ml 460 ml Balance 105 ml 230 ml Free Water 30 ml Tube Feeding 495 ml 660 ml Output Urine Total 390 ml 460 ml # Bowel Movements 3 4 ET-Tube: 7.5 ET Position: 24 Labs: Laboratory Tests Test 09/09/19 03:45 White Blood Count 5.8 K/UL (4.8-10.8) Red Blood Count 3.17 M/UL (4.70-6.10) L Hemoglobin 9.9 G/DL (14.2-18.0) L Hematocrit 29.2 % (42.0-52.0) L Mean Corpuscular Volume 92 FL (80-99) Mean Corpuscular Hemoglobin 31.2 PG (27.0-31.0) H Mean Corpuscular Hemoglobin Concent 33.8 G/DL (32.0-36.0) Red Cell Distribution Width 13.3 % (11.6-14.8) Platelet Count 188 K/UL (150-450) Mean Platelet Volume 5.6 FL (6.5-10.1) L Neutrophils (%) (Auto) 61.3 % (45.0-75.0) Lymphocytes (%) (Auto) 24.4 % (20.0-45.0) Monocytes (%) (Auto) 6.7 % (1.0-10.0) Eosinophils (%) (Auto) 6.8 % (0.0-3.0) H Basophils (%) (Auto) 0.8 % (0.0-2.0) Sodium Level 144 MMOL/L (136-145) Potassium Level 3.8 MMOL/L (3.5-5.1) Chloride Level 107 MMOL/L (98-107) Carbon Dioxide Level 28 MMOL/L (21-32) Anion Gap 9 mmol/L (5-15) Blood Urea Nitrogen 38 mg/dL (7-18) H Creatinine 0.7 MG/DL (0.55-1.30) Estimat Glomerular Filtration Rate > 60 mL/min (>60) Glucose Level 119 MG/DL (74-106) H Calcium Level 8.7 MG/DL (8.5-10.1) Total Bilirubin 0.6 MG/DL (0.2-1.0) Aspartate Amino Transf (AST/SGOT) 24 U/L (15-37) Alanine Aminotransferase (ALT/SGPT) 48 U/L (12-78) Alkaline Phosphatase 84 U/L (46-116) Pro-B-Type Natriuretic Peptide 1376 pg/mL (0-125) H Total Protein 5.1 G/DL (6.4-8.2) L Albumin 2.1 G/DL (3.4-5.0) L Globulin 3.0 g/dL Albumin/Globulin Ratio 0.7 (1.0-2.7) L Nicole Graves MD Sep 09, 2019 11:00
--- NOTE | 2019-09-09 13:07 | Surgery Progress Note ---
Surgery Progress Note Subjective Additional Comments plan trach tomorrow now following commands now weaning vent well Objective Last 24 Hour Vital Signs Date Time Temp Pulse Resp B/P (MAP) Pulse Ox O2 Delivery O2 Flow Rate FiO2 09/09/19 12:00 30 09/09/19 12:00 Mechanical Ventilator Mechanical Ventilator 09/09/19 12:00 72 09/09/19 11:00 76 17 114/55 (74) 94 09/09/19 10:00 81 21 132/56 (81) 97 09/09/19 09:21 77 19 30 30 09/09/19 09:00 77 19 125/54 (77) 94 09/09/19 08:00 Mechanical Ventilator Mechanical Ventilator 09/09/19 08:00 97.6 74 14 115/51 (72) 95 09/09/19 08:00 30 09/09/19 08:00 74 09/09/19 07:00 77 18 118/47 (70) 96 09/09/19 06:51 77 20 30 30 09/09/19 06:29 74 15 09/09/19 06:00 72 16 117/51 (73) 96 09/09/19 05:09 71 15 30 09/09/19 05:00 67 14 114/51 (72) 95 09/09/19 04:00 Mechanical Ventilator Mechanical Ventilator 09/09/19 04:00 72 09/09/19 04:00 30 09/09/19 04:00 98.6 76 24 121/49 (73) 09/09/19 03:05 78 16 30 09/09/19 03:00 76 17 138/70 (92) 96 09/09/19 02:00 74 18 132/60 (84) 96 09/09/19 01:30 73 19 30 09/09/19 01:00 73 15 139/53 (81) 96 09/09/19 00:00 80 09/09/19 00:00 Mechanical Ventilator Mechanical Ventilator 09/09/19 00:00 98.7 76 18 133/59 (83) 95 09/09/19 00:00 30 09/08/19 23:25 71 15 30 09/08/19 23:00 75 17 141/69 (93) 96 09/08/19 22:00 71 19 123/54 (77) 95 09/08/19 21:20 71 18 30 09/08/19 21:00 75 17 145/58 (87) 97 09/08/19 20:00 30 09/08/19 20:00 98.5 73 16 131/62 (85) 96 09/08/19 20:00 Mechanical Ventilator Mechanical Ventilator 09/08/19 20:00 84 09/08/19 19:36 77 16 30 09/08/19 19:00 74 20 134/54 (80) 96 09/08/19 18:00 71 16 136/58 (84) 96 09/08/19 17:44 Mechanical Ventilator Mechanical Ventilator 09/08/19 17:24 70 17 30 30 09/08/19 17:00 66 14 103/48 (66) 94 09/08/19 16:00 30 09/08/19 16:00 Mechanical Ventilator Mechanical Ventilator 09/08/19 16:00 75 09/08/19 16:00 98.5 75 17 131/55 (80) 98 09/08/19 15:23 75 17 30 30 09/08/19 15:00 73 17 140/55 (83) 98 09/08/19 14:00 68 14 111/51 (71) 95 I&O Intake and Output 09/08/19 09/09/19 19:00 07:00 Intake Total 495 ml 690 ml Output Total 390 ml 460 ml Balance 105 ml 230 ml Free Water 30 ml Tube Feeding 495 ml 660 ml Output Urine Total 390 ml 460 ml # Bowel Movements 3 4 Cardiovascular: RSR Respiratory: decreased breath sounds Abdomen: soft, non-tender, present bowel sounds Extremities: no edema, no cyanosis Laboratory Tests Test 09/09/19 03:45 White Blood Count 5.8 K/UL (4.8-10.8) Red Blood Count 3.17 M/UL (4.70-6.10) L Hemoglobin 9.9 G/DL (14.2-18.0) L Hematocrit 29.2 % (42.0-52.0) L Mean Corpuscular Volume 92 FL (80-99) Mean Corpuscular Hemoglobin 31.2 PG (27.0-31.0) H Mean Corpuscular Hemoglobin Concent 33.8 G/DL (32.0-36.0) Red Cell Distribution Width 13.3 % (11.6-14.8) Platelet Count 188 K/UL (150-450) Mean Platelet Volume 5.6 FL (6.5-10.1) L Neutrophils (%) (Auto) 61.3 % (45.0-75.0) Lymphocytes (%) (Auto) 24.4 % (20.0-45.0) Monocytes (%) (Auto) 6.7 % (1.0-10.0) Eosinophils (%) (Auto) 6.8 % (0.0-3.0) H Basophils (%) (Auto) 0.8 % (0.0-2.0) Sodium Level 144 MMOL/L (136-145) Potassium Level 3.8 MMOL/L (3.5-5.1) Chloride Level 107 MMOL/L (98-107) Carbon Dioxide Level 28 MMOL/L (21-32) Anion Gap 9 mmol/L (5-15) Blood Urea Nitrogen 38 mg/dL (7-18) H Creatinine 0.7 MG/DL (0.55-1.30) Estimat Glomerular Filtration Rate > 60 mL/min (>60) Glucose Level 119 MG/DL (74-106) H Calcium Level 8.7 MG/DL (8.5-10.1) Total Bilirubin 0.6 MG/DL (0.2-1.0) Aspartate Amino Transf (AST/SGOT) 24 U/L (15-37) Alanine Aminotransferase (ALT/SGPT) 48 U/L (12-78) Alkaline Phosphatase 84 U/L (46-116) Pro-B-Type Natriuretic Peptide 1376 pg/mL (0-125) H Total Protein 5.1 G/DL (6.4-8.2) L Albumin 2.1 G/DL (3.4-5.0) L Globulin 3.0 g/dL Albumin/Globulin Ratio 0.7 (1.0-2.7) L Plan Problems: (1) Nosocomial pneumonia (2) AUREA (acute kidney injury) (3) Cardiomyopathy (4) Obesity (BMI 30.0-34.9) (5) DMII (diabetes mellitus, type 2) (6) Cardiac LV ejection fraction 40% (7) Pulmonary edema (8) Cardiopulmonary arrest Assessment & Plan: Cardiopulmonary arrest septic requiring urgent emergency line placement for pressors and fluids and meds Please see procedure report Full examination performed no other surgical issues found at this time etiology unknown likely surgical in nature Antibiotics fluids Pressors Vent weaning trials right groin site okay. no hematoma. no bleeding left arm picc okay NG tube is present in good position. A partial left lateral decubitus view of the abdomen performed as well as a supine view. The left lateral decubitus view is not adequate as the area of interest which would be the nondependent right side of the abdomen, which is the area of interest was not imaged and is beyond the field-of -view of the x-ray. Bowel gas pattern appears nonobstructive on the basis of the partial images obtained. off pressors labs reviewed cont tube feeds Unable to wean from ventilator. Labs noted ABG noted imaging reviewed cont weaning. if possible extubate otherwise will consider trach extubated improving monitor in ICU for now downgrade re-intubated on vent support on pressors wean pressors will monitor * Interval removal of endotracheal tube. NG tube and left arm PICC line remain in place. * Apparent worsening of aeration with increasing hazy opacities in the bilateral lower lungs which may in part be related to artifact from patient positioning however layering bilateral pleural effusions and bilateral airspace disease not excluded. Follow-up recommended. will need trach does not seem to be able to wean (9) Respiratory failure (10) History of hypertension (11) COPD (chronic obstructive pulmonary disease) (12) CAD (coronary artery disease) (13) Atrial fibrillation (14) Dementia with behavioral disturbance (15) Upper respiratory infection (16) Acute respiratory failure (17) Dyspnea (18) UTI (urinary tract infection) Prosper Hummel Sep 09, 2019 13:07
--- NOTE | 2019-09-09 13:22 | Nephrology Progress Note ---
Assessment/Plan Problem List: (1) AUREA (acute kidney injury) Assessment: Serum creatinine rising (2) Cardiopulmonary arrest (3) Respiratory failure (4) Cardiomyopathy (5) Obesity (BMI 30.0-34.9) (6) DMII (diabetes mellitus, type 2) Assessment Acute Renal Failure : AUREA Most likely due to cardiorespiratory arrest and episode of hypotension. Patient also has cardiomyopathy with Ej Fx of 40 % on admission Obese : BMI 34.4 ? DM Other Dx (1) Cardiopulmonary arrest (2) Nosocomial pneumonia (3) Acute respiratory failure (4) COPD (chronic obstructive pulmonary disease) (5) Atrial fibrillation (6) Dementia with behavioral disturbance (7) CAD (coronary artery disease) Plan Today's labs reviewed D5 W IV fluids for hypernatremia as needed pressors are off now patient's condition somewhat more stable In ICU He is intubated ventilator, weaning is being tried His blood pressure is more stable Overall he is still doing poorly Adjust blood pressure medications Stress dose of steroids which we will start tapering today Previously Monitor renal parameters. Serum creatinine improved Monitor urine output. Urine output improved. Avoid nephrotoxics. Weaning as possible. Remains intubated at this time. Correct electrolyte imbalances. Change tube feeding to Glucerna. Subjective ROS Limited/Unobtainable: Yes Objective Objective Last 24 Hour Vital Signs Date Time Temp Pulse Resp B/P (MAP) Pulse Ox O2 Delivery O2 Flow Rate FiO2 09/09/19 12:00 30 09/09/19 12:00 Mechanical Ventilator Mechanical Ventilator 09/09/19 12:00 72 09/09/19 11:00 76 17 114/55 (74) 94 09/09/19 10:00 81 21 132/56 (81) 97 09/09/19 09:21 77 19 30 30 09/09/19 09:00 77 19 125/54 (77) 94 09/09/19 08:00 Mechanical Ventilator Mechanical Ventilator 09/09/19 08:00 97.6 74 14 115/51 (72) 95 09/09/19 08:00 30 09/09/19 08:00 74 09/09/19 07:00 77 18 118/47 (70) 96 09/09/19 06:51 77 20 30 30 09/09/19 06:29 74 15 09/09/19 06:00 72 16 117/51 (73) 96 4/7/20 05:09 71 15 30 09/09/19 05:00 67 14 114/51 (72) 95 09/09/19 04:00 Mechanical Ventilator Mechanical Ventilator 09/09/19 04:00 72 09/09/19 04:00 30 09/09/19 04:00 98.6 76 24 121/49 (73) 09/09/19 03:05 78 16 30 09/09/19 03:00 76 17 138/70 (92) 96 09/09/19 02:00 74 18 132/60 (84) 96 09/09/19 01:30 73 19 30 09/09/19 01:00 73 15 139/53 (81) 96 09/09/19 00:00 80 09/09/19 00:00 Mechanical Ventilator Mechanical Ventilator 09/09/19 00:00 98.7 76 18 133/59 (83) 95 09/09/19 00:00 30 09/08/19 23:25 71 15 30 09/08/19 23:00 75 17 141/69 (93) 96 09/08/19 22:00 71 19 123/54 (77) 95 09/08/19 21:20 71 18 30 09/08/19 21:00 75 17 145/58 (87) 97 09/08/19 20:00 30 09/08/19 20:00 98.5 73 16 131/62 (85) 96 09/08/19 20:00 Mechanical Ventilator Mechanical Ventilator 09/08/19 20:00 84 09/08/19 19:36 77 16 30 09/08/19 19:00 74 20 134/54 (80) 96 09/08/19 18:00 71 16 136/58 (84) 96 09/08/19 17:44 Mechanical Ventilator Mechanical Ventilator 09/08/19 17:24 70 17 30 30 09/08/19 17:00 66 14 103/48 (66) 94 09/08/19 16:00 30 09/08/19 16:00 Mechanical Ventilator Mechanical Ventilator 09/08/19 16:00 75 09/08/19 16:00 98.5 75 17 131/55 (80) 98 09/08/19 15:23 75 17 30 30 09/08/19 15:00 73 17 140/55 (83) 98 09/08/19 14:00 68 14 111/51 (71) 95 Intake and Output 09/08/19 09/09/19 19:00 07:00 Intake Total 495 ml 690 ml Output Total 390 ml 460 ml Balance 105 ml 230 ml Free Water 30 ml Tube Feeding 495 ml 660 ml Output Urine Total 390 ml 460 ml # Bowel Movements 3 4 Current Medications Medications (Trade) Dose Ordered Sig/Amaris Route PRN Reason Start Time Stop Time Status Last Admin Dose Admin Acetaminophen (Tylenol) 650 mg Q4H PRN NG Mild Pain/Temp > 100.5 09/01/19 10:20 10/01/19 10:19 Amiodarone HCl (Cordarone) 200 mg DAILY NG 09/01/19 10:22 11/30/19 10:21 09/09/19 08:53 Atorvastatin Calcium (Lipitor) 40 mg BEDTIME NG 09/01/19 21:00 09/13/19 20:59 09/08/19 21:13 Chlorhexidine Gluconate (Kamila-Hex 2%) 1 applic DAILY@1999 TOPIC 09/01/19 20:00 09/17/19 19:59 09/08/19 21:11 Clopidogrel Bisulfate (Plavix) 75 mg DAILY NG 09/01/19 10:22 10/01/19 10:21 09/09/19 08:53 Colistimethate Sodium (Colistin) 75 mg EVERY 12 HOURS IVP 09/05/19 22:00 09/12/19 21:59 09/09/19 08:53 Heparin Sodium (Porcine) (Heparin 5000 units/ml) 5,000 units EVERY 12 HOURS SUBQ 09/01/19 10:23 10/16/19 10:22 09/09/19 08:54 Hydralazine HCl (Apresoline) 25 mg Q6HR PRN NG SBP above 160 09/02/19 01:45 12/01/19 01:44 Pantoprazole (Protonix) 40 mg EVERY 12 HOURS IVP 09/01/19 10:23 10/01/19 10:22 09/09/19 08:53 Laboratory Tests 09/09/19 03:45: White Blood Count 5.8, Red Blood Count 3.17L, Hemoglobin 9.9L, Hematocrit 29.2L , Mean Corpuscular Volume 92, Mean Corpuscular Hemoglobin 31.2H, Mean Corpuscular Hemoglobin Concent 33.8, Red Cell Distribution Width 13.3, Platelet Count 188, Mean Platelet Volume 5.6L, Neutrophils (%) (Auto) 61.3, Lymphocytes ( %) (Auto) 24.4, Monocytes (%) (Auto) 6.7, Eosinophils (%) (Auto) 6.8H, Basophils (%) (Auto) 0.8, Sodium Level 144, Potassium Level 3.8, Chloride Level 107, Carbon Dioxide Level 28, Anion Gap 9, Blood Urea Nitrogen 38H, Creatinine 0.7, Estimat Glomerular Filtration Rate > 60, Glucose Level 119H, Calcium Level 8.7, Total Bilirubin 0.6, Aspartate Amino Transf (AST/SGOT) 24, Alanine Aminotransferase (ALT/SGPT) 48, Alkaline Phosphatase 84, Pro-B-Type Natriuretic Peptide 1376H, Total Protein 5.1L, Albumin 2.1L, Globulin 3.0, Albumin/Globulin Ratio 0.7L Height (Feet): 5 Height (Inches): 6.00 Weight (Pounds): 210 General Appearance: no apparent distress Cardiovascular: normal rate Respiratory/Chest: decreased breath sounds Abdomen: distended Objective no change Yunior Sexton MD Sep 09, 2019 13:22
--- NOTE | 2019-09-09 19:30 | Progress Note ---
DATE: 09/09/2019 SUBJECTIVE: Patient is afebrile and hemodynamically stable. PHYSICAL EXAMINATION: VITAL SIGNS: Blood pressure 131/52, his pulse is 74, respirations of 20, temperature was 98. HEENT: Eyes were normal. ENT, mucous membranes were moist and intact. NECK: Supple with no JVD without lymph nodes. LUNGS: Clear. HEART: Normal sounds with regular beats. There is no tachycardia at rest. ABDOMEN: Soft, nontender with normal bowel sounds. EXTREMITIES: Warm without cyanosis, clubbing, or edema. LABORATORY AND DIAGNOSTIC DATA: Hemoglobin is 9.9, hematocrit 29.2 with MCV of 92, WBC of 6.8, and platelets is 188. His BUN and creatinine 38 and 0.7 respectively. Sodium is 144, potassium 3.8, chloride 107, CO2 28. SGOT, SGPT, and alkaline phosphatase are normal. His calcium is 8.7. Albumin is 2.1. Total protein is 5.1. Pro-BNP is 1300. Chest x-ray today showed borderline interstitial congestive heart failure. IMPRESSION AND PLAN: Patient appeared to be in stable condition. Whether the patient should be extubated or undergo tracheostomy will now be . Modesta Mulligan M.D. DR: ZACHARY JOB#: [id number] CC:
[2019-09-09] MEDS: Dyna-Hex 2% Top Sol 2oz TOPIC SCH (21:17)
[2019-09-09] MEDS: Atorvastatin 20mg tab NG SCH (21:18)
[2019-09-10] VITALS (24 sets, daily range): BP systolic 102–158; BP diastolic 45–90
--- NOTE | 2019-09-10 01:00 | Progress Note ---
DATE: 09/09/2019 CARDIOLOGY PROGRESS NOTE SUBJECTIVE: The patient remains on ventilator support. Trach is planned. Monitor, atrial fibrillation. OBJECTIVE: VITAL SIGNS: Blood pressure is 114/52 to 157/53, heart rate 72, respiratory rate 18, afebrile. LUNGS: Bilateral breath sounds. CARDIAC: Irregularly irregular rhythm. Normal S1. Paradoxically split S2. ABDOMEN: Soft. EXTREMITIES: No edema. LABORATORY DATA: White count 5.8, hemoglobin 9.9. Potassium 3.8, BUN 38, creatinine 0.7. Pro-natriuretic peptide 1376. IMPRESSION: 1. Acute on chronic diastolic congestive heart failure, mostly compensated. 2. Paroxysmal atrial fibrillation, remaining on amiodarone now. Anticoagulation on hold due to bleeding risk. 3. Ventilator-dependent respiratory failure. Awaiting trach. PLAN: 1. No interim change in cardiovascular medications. 2. Stable for tracheostomy from cardiovascular standpoint. 3. Adjustment of therapy to follow procedure. Saeed Sim M.D. DR: DARYA JOB#: [id number] CC:
[2019-09-10 05:33] LABS: BASOPHILS % (AUTO) 0.8 % (0.0-2.0); EOSINOPHILS % (AUTO) 5.7 % (0.0-3.0); HEMATOCRIT 29.1 % (42.0-52.0); HEMOGLOBIN 9.9 G/DL (14.2-18.0); LYMPHOCYTES % (AUTO) 28.5 % (20.0-45.0); MEAN CORPUSCULAR VOLUME 92 FL (80-99); MONOCYTES % (AUTO) 7.3 % (1.0-10.0); NEUTROPHILS % (AUTO) 57.7 % (45.0-75.0); PLATELET COUNT 211 K/UL (150-450); RED BLOOD COUNT 3.17 M/UL (4.70-6.10); RED CELL DISTRIBUTION WIDTH 13.3 % (11.6-14.8); WHITE BLOOD COUNT 5.6 K/UL (4.8-10.8)
[2019-09-10 06:08] LABS: ALANINE AMINOTRANSFERASE 39 U/L (12-78); ALBUMIN 2.1 G/DL (3.4-5.0); ALBUMIN/GLOBULIN RATIO 0.7 (1.0-2.7); ALKALINE PHOSPHATASE 77 U/L (46-116); ANION GAP 3 mmol/L (5-15); ASPARTATE AMINO TRANSFERASE 26 U/L (15-37); BILIRUBIN,TOTAL 0.7 MG/DL (0.2-1.0); BLOOD UREA NITROGEN 41 mg/dL (7-18); CALCIUM 8.5 MG/DL (8.5-10.1); CARBON DIOXIDE 31 MMOL/L (21-32); CHLORIDE 108 MMOL/L (98-107); CREATININE 0.5 MG/DL (0.55-1.30); PHOSPHORUS 3.5 MG/DL (2.5-4.9); SODIUM 142 MMOL/L (136-145)
[2019-09-10] MEDS: Heparin 5000 units/ml inj SUBQ SCH ×2 (08:37→20:24)
[2019-09-10] MEDS: Colistin 150mg vial IVP SCH (09:00)
--- NOTE | 2019-09-10 09:01 | Infectious Diseases Prog Note ---
Assessment/Plan Assessment/Plan ASSESSMENT: The patient is a 79-year-old male with: Multiple reintubations, likely cannot maintain airway Low grade temp, SP No leukocytosis Developing PNA 08/31 CXR: There is a hazy opacity at the left lung base again noted unchanged. Mild linear densities are seen in the right midlung which may be atelectasis or scarring. 09/02 CXR: Hazy basilar opacities, most likely due to overlying soft tissue shadows but hazy infiltrates also possible. If the latter, stable on the left, new or increased on the right. 09/04: Suspected pneumonia at the left lung base 09/05 CXR: Bilateral lower lobe infiltrates/atelectasis, similar to prior. 09/08 CXR: Hazy left greater than right basilar opacity and borderline interstitial congestive changes persist. Leukocytosis; Sp Fever , sp Sepsis, Sp Pneumonia (probable asp), Sp RX -08/28 CXR: Interval removal of endotracheal tube. NG tube and left arm PICC line remain in place. Apparent worsening of aeration with increasing hazy opacities in the bilateral lower lungs which may in part be related to artifact from patient positioning however layering bilateral pleural effusions and bilateral airspace disease not excluded. -08/13 Scx: MDR-ACB (Tygacil LANI: 4) - CXR: 1. Streaky opacities in the right lower lung may represent atelectasis versus scarring. Left basilar opacity may represent atelectasis. Component of pneumonia is not excluded. Pulmonary vasculature congestion. -08/01 ucx NTD -sp cx: nl anastacio Urinary tract infection, SP Rx 08/31 SP rapid response and reintubation 08/17 Sp code blue and intubation , extubated 08/27 07/31 Sp Code blue and intubation , sp extubation 08/12 , Hyperlipidemia. COPD. History of GERD. History of encephalopathy. History of CAD/NM. History of cardiomyopathy. Hypertension. PLAN: change Colistin IV #6 to INH colistin #1 and add bactrim #1 -08/28 SP Colistin INH (MDR-ACB) # 14 - 08/22/19 SP Merrem 10 - 08/14 SP IV Vanco # 4 -08/07 SP Zosyn and IV Vanco # 12/08 , -08/01 SP Rocephin day # - 07/31 sp sp Dox # 6 Monitor CBC. Monitor BMP. monitor temp and VS Monitor chest x-ray cont ICU Support DW RN Subjective Allergies: Coded Allergies: No Known Allergies (Unverified , 06/03/17) Subjective Afebrile. No leukocytosis trach planned for today opens eyes to voice Objective Vital Signs Last 24 Hour Vital Signs Date Time Temp Pulse Resp B/P (MAP) Pulse Ox O2 Delivery O2 Flow Rate FiO2 09/10/19 08:00 30 09/10/19 07:00 65 15 116/49 (71) 96 09/10/19 06:30 74 15 09/10/19 06:00 68 16 122/56 (78) 94 09/10/19 05:00 68 16 123/61 (81) 94 09/10/19 04:55 79 20 30 09/10/19 04:00 98.4 67 16 108/48 (68) 95 09/10/19 04:00 66 09/10/19 04:00 30 09/10/19 04:00 Mechanical Ventilator Mechanical Ventilator 09/10/19 03:00 66 14 126/61 (82) 09/10/19 02:31 74 18 30 09/10/19 02:00 69 16 117/57 (77) 09/10/19 01:05 72 19 30 09/10/19 01:00 68 15 120/53 (75) 09/10/19 00:00 Mechanical Ventilator Mechanical Ventilator 09/10/19 00:00 69 09/10/19 00:00 98.5 66 16 115/45 (68) 09/10/19 00:00 30 09/09/19 23:02 77 18 30 09/09/19 23:00 68 14 105/50 (68) 09/09/19 22:00 72 18 128/53 (78) 09/09/19 21:00 66 14 111/53 (72) 09/09/19 20:35 72 20 30 09/09/19 20:00 70 09/09/19 20:00 Mechanical Ventilator Mechanical Ventilator 09/09/19 20:00 72 15 135/53 (80) 96 09/09/19 20:00 98.5 74 19 119/43 (68) 09/09/19 20:00 30 09/09/19 19:25 73 15 30 09/09/19 19:00 74 15 135/53 (80) 96 09/09/19 18:00 73 15 157/53 (87) 94 09/09/19 17:00 73 16 114/52 (72) 95 09/09/19 16:42 76 22 30 09/09/19 16:00 98.1 69 21 124/55 (78) 97 09/09/19 16:00 Mechanical Ventilator Mechanical Ventilator 09/09/19 16:00 75 09/09/19 16:00 30 09/09/19 15:00 75 20 149/66 (93) 97 09/09/19 14:00 76 20 131/52 (78) 94 09/09/19 13:24 75 21 30 30 09/09/19 13:00 74 20 129/53 (78) 94 09/09/19 12:00 30 09/09/19 12:00 Mechanical Ventilator Mechanical Ventilator 09/09/19 12:00 98.0 76 20 156/53 (87) 94 09/09/19 12:00 72 09/09/19 11:00 76 17 114/55 (74) 94 09/09/19 10:00 81 21 132/56 (81) 97 09/09/19 09:21 77 19 30 30 09/09/19 09:00 77 19 125/54 (77) 94 Height (Feet): 5 Height (Inches): 6.00 Weight (Pounds): 200 Objective Gen: NAD HEENT: ETT CV: RRR. no rubs Resp: RRR. equal chest rise. no wheezes. Abd: nondistended. no palpable masses Neuro: opens eyes to voice Laboratory Tests Test 09/10/19 03:45 White Blood Count 5.6 K/UL (4.8-10.8) Red Blood Count 3.17 M/UL (4.70-6.10) L Hemoglobin 9.9 G/DL (14.2-18.0) L Hematocrit 29.1 % (42.0-52.0) L Mean Corpuscular Volume 92 FL (80-99) Mean Corpuscular Hemoglobin 31.2 PG (27.0-31.0) H Mean Corpuscular Hemoglobin Concent 33.9 G/DL (32.0-36.0) Red Cell Distribution Width 13.3 % (11.6-14.8) Platelet Count 211 K/UL (150-450) Mean Platelet Volume 5.5 FL (6.5-10.1) L Neutrophils (%) (Auto) 57.7 % (45.0-75.0) Lymphocytes (%) (Auto) 28.5 % (20.0-45.0) Monocytes (%) (Auto) 7.3 % (1.0-10.0) Eosinophils (%) (Auto) 5.7 % (0.0-3.0) H Basophils (%) (Auto) 0.8 % (0.0-2.0) Sodium Level 142 MMOL/L (136-145) Potassium Level 4.0 MMOL/L (3.5-5.1) Chloride Level 108 MMOL/L (98-107) H Carbon Dioxide Level 31 MMOL/L (21-32) Anion Gap 3 mmol/L (5-15) L Blood Urea Nitrogen 41 mg/dL (7-18) H Creatinine 0.5 MG/DL (0.55-1.30) L Estimat Glomerular Filtration Rate > 60 mL/min (>60) Glucose Level 83 MG/DL (74-106) Calcium Level 8.5 MG/DL (8.5-10.1) Phosphorus Level 3.5 MG/DL (2.5-4.9) Magnesium Level 1.7 MG/DL (1.8-2.4) L Total Bilirubin 0.7 MG/DL (0.2-1.0) Aspartate Amino Transf (AST/SGOT) 26 U/L (15-37) Alanine Aminotransferase (ALT/SGPT) 39 U/L (12-78) Alkaline Phosphatase 77 U/L (46-116) Total Protein 5.0 G/DL (6.4-8.2) L Albumin 2.1 G/DL (3.4-5.0) L Globulin 2.9 g/dL Albumin/Globulin Ratio 0.7 (1.0-2.7) L Current Medications Medications (Trade) Dose Ordered Sig/Amaris Route PRN Reason Start Time Stop Time Status Last Admin Dose Admin Acetaminophen (Tylenol) 650 mg Q4H PRN NG Mild Pain/Temp > 100.5 09/01/19 10:20 10/01/19 10:19 Amiodarone HCl (Cordarone) 200 mg DAILY NG 09/01/19 10:22 11/30/19 10:21 09/09/19 08:53 Atorvastatin Calcium (Lipitor) 40 mg BEDTIME NG 09/01/19 21:00 09/13/19 20:59 09/09/19 21:18 Chlorhexidine Gluconate (Kamila-Hex 2%) 1 applic DAILY@1999 TOPIC 09/01/19 20:00 09/17/19 19:59 09/09/19 21:17 Clopidogrel Bisulfate (Plavix) 75 mg DAILY NG 09/01/19 10:22 10/01/19 10:21 09/09/19 08:53 Colistimethate Sodium (Colistin) 75 mg EVERY 12 HOURS IVP 09/05/19 22:00 09/12/19 21:59 09/09/19 21:24 Heparin Sodium (Porcine) (Heparin 5000 units/ml) 5,000 units EVERY 12 HOURS SUBQ 09/01/19 10:23 10/16/19 10:22 09/09/19 21:20 Hydralazine HCl (Apresoline) 25 mg Q6HR PRN NG SBP above 160 09/02/19 01:45 12/01/19 01:44 Magnesium Sulfate 100 ml @ 100 mls/hr Q1H IVPB 09/10/19 09:00 09/10/19 10:59 Pantoprazole (Protonix) 40 mg EVERY 12 HOURS IVP 09/01/19 10:23 10/01/19 10:22 09/09/19 21:17 Rafy Page MD Sep 10, 2019 09:01
[2019-09-10] MEDS: Amiodarone 200mg tab NG SCH (09:08)
[2019-09-10] MEDS: Pantoprazole Inj IVP SCH ×2 (09:09→20:24)
--- NOTE | 2019-09-10 10:12 | Pulmonolgy Critical Care Note ---
Critical Care - Asmt/Plan Problems: (1) Acute respiratory failure (2) Cardiopulmonary arrest (3) Cardiac LV ejection fraction 40% (4) Nosocomial pneumonia (5) Atrial fibrillation (6) Pulmonary edema (7) COPD (chronic obstructive pulmonary disease) (8) CAD (coronary artery disease) (9) Dementia with behavioral disturbance Respiratory: monitor respiratory rate, adjust FIO2, CXR Cardiac: stop pressors, continue to monitor HR/BP Renal: F/U I&O, keep IV fluid Infectious Disease: check cultures, continue antibiotics Gastrointestinal: continue feedings/current rate Endocrine: monitor blood sugar Hematologic: monitor H/H, transfuse if hgb<8.5 Neurologic: PRN Ativan, keep patient comfortable Affect: PRN ativan Prophylaxis: Heparin Time Spent (Minutes): 40 Notes Reviewed: cardio, renal Discussed with: nurses, consultants, case management social workereye clinic manager - Objective Last 24 Hour Vital Signs Date Time Temp Pulse Resp B/P (MAP) Pulse Ox O2 Delivery O2 Flow Rate FiO2 09/10/19 09:30 65 14 30 09/10/19 08:00 30 09/10/19 07:00 65 15 116/49 (71) 96 09/10/19 06:30 74 15 09/10/19 06:00 68 16 122/56 (78) 94 09/10/19 05:00 68 16 123/61 (81) 94 09/10/19 04:55 79 20 30 09/10/19 04:00 98.4 67 16 108/48 (68) 95 09/10/19 04:00 66 09/10/19 04:00 30 09/10/19 04:00 Mechanical Ventilator Mechanical Ventilator 09/10/19 03:00 66 14 126/61 (82) 09/10/19 02:31 74 18 30 09/10/19 02:00 69 16 117/57 (77) 09/10/19 01:05 72 19 30 09/10/19 01:00 68 15 120/53 (75) 09/10/19 00:00 Mechanical Ventilator Mechanical Ventilator 09/10/19 00:00 69 09/10/19 00:00 98.5 66 16 115/45 (68) 09/10/19 00:00 30 09/09/19 23:02 77 18 30 09/09/19 23:00 68 14 105/50 (68) 09/09/19 22:00 72 18 128/53 (78) 09/09/19 21:00 66 14 111/53 (72) 09/09/19 20:35 72 20 30 09/09/19 20:00 70 09/09/19 20:00 Mechanical Ventilator Mechanical Ventilator 09/09/19 20:00 72 15 135/53 (80) 96 09/09/19 20:00 98.5 74 19 119/43 (68) 09/09/19 20:00 30 09/09/19 19:25 73 15 30 09/09/19 19:00 74 15 135/53 (80) 96 09/09/19 18:00 73 15 157/53 (87) 94 09/09/19 17:00 73 16 114/52 (72) 95 09/09/19 16:42 76 22 30 09/09/19 16:00 98.1 69 21 124/55 (78) 97 09/09/19 16:00 Mechanical Ventilator Mechanical Ventilator 09/09/19 16:00 75 09/09/19 16:00 30 09/09/19 15:00 75 20 149/66 (93) 97 09/09/19 14:00 76 20 131/52 (78) 94 09/09/19 13:24 75 21 30 30 09/09/19 13:00 74 20 129/53 (78) 94 09/09/19 12:00 30 09/09/19 12:00 Mechanical Ventilator Mechanical Ventilator 09/09/19 12:00 98.0 76 20 156/53 (87) 94 09/09/19 12:00 72 09/09/19 11:00 76 17 114/55 (74) 94 Status: awake Condition: critical HEENT: atraumatic Neck: full ROM Lungs: clear Heart: HR/BP stable Abdomen: soft, active bowel sounds Extremities: edema Accucheck: 150 Critical Care - Subjective ROS Limited/Unobtainable: Yes Condition: critical EKG Rhythm: Sinus Rhythm FI02: 30 Vent Support Breath Rate: 14 Vent Support Mode: AC Vent Tidal Volume: 500 Sputum Amount: Small PEEP: 5.0 PIP: 28 Tube Feeding Amount: 0 I&O: Intake and Output 09/09/19 09/10/19 19:00 07:00 Intake Total 660 ml 220 ml Output Total 530 ml 505 ml Balance 130 ml -285 ml Tube Feeding 660 ml 220 ml Output Urine Total 530 ml 505 ml # Bowel Movements 1 ET-Tube: 7.5 ET Position: 24 Labs: Laboratory Tests Test 09/10/19 03:45 White Blood Count 5.6 K/UL (4.8-10.8) Red Blood Count 3.17 M/UL (4.70-6.10) L Hemoglobin 9.9 G/DL (14.2-18.0) L Hematocrit 29.1 % (42.0-52.0) L Mean Corpuscular Volume 92 FL (80-99) Mean Corpuscular Hemoglobin 31.2 PG (27.0-31.0) H Mean Corpuscular Hemoglobin Concent 33.9 G/DL (32.0-36.0) Red Cell Distribution Width 13.3 % (11.6-14.8) Platelet Count 211 K/UL (150-450) Mean Platelet Volume 5.5 FL (6.5-10.1) L Neutrophils (%) (Auto) 57.7 % (45.0-75.0) Lymphocytes (%) (Auto) 28.5 % (20.0-45.0) Monocytes (%) (Auto) 7.3 % (1.0-10.0) Eosinophils (%) (Auto) 5.7 % (0.0-3.0) H Basophils (%) (Auto) 0.8 % (0.0-2.0) Sodium Level 142 MMOL/L (136-145) Potassium Level 4.0 MMOL/L (3.5-5.1) Chloride Level 108 MMOL/L (98-107) H Carbon Dioxide Level 31 MMOL/L (21-32) Anion Gap 3 mmol/L (5-15) L Blood Urea Nitrogen 41 mg/dL (7-18) H Creatinine 0.5 MG/DL (0.55-1.30) L Estimat Glomerular Filtration Rate > 60 mL/min (>60) Glucose Level 83 MG/DL (74-106) Calcium Level 8.5 MG/DL (8.5-10.1) Phosphorus Level 3.5 MG/DL (2.5-4.9) Magnesium Level 1.7 MG/DL (1.8-2.4) L Total Bilirubin 0.7 MG/DL (0.2-1.0) Aspartate Amino Transf (AST/SGOT) 26 U/L (15-37) Alanine Aminotransferase (ALT/SGPT) 39 U/L (12-78) Alkaline Phosphatase 77 U/L (46-116) Total Protein 5.0 G/DL (6.4-8.2) L Albumin 2.1 G/DL (3.4-5.0) L Globulin 2.9 g/dL Albumin/Globulin Ratio 0.7 (1.0-2.7) L Nicole Graves MD Sep 10, 2019 10:12
--- NOTE | 2019-09-10 10:15 | General Progress Note ---
Progress Note Progress Note Patient doesn't have any family or next of kin to sign for consents. Pt himself is critically ill and on ventilator, unable either. Pt can't breath on his own any more. He needs to get tracheostomy to keep him alive. Nicole Graves MD Sep 10, 2019 10:15
--- NOTE | 2019-09-10 10:16 | Nephrology Progress Note ---
Assessment/Plan Problem List: (1) AUREA (acute kidney injury) Assessment: Serum creatinine rising (2) Cardiopulmonary arrest (3) Respiratory failure (4) Cardiomyopathy (5) Obesity (BMI 30.0-34.9) (6) DMII (diabetes mellitus, type 2) Assessment Acute Renal Failure : AUREA Most likely due to cardiorespiratory arrest and episode of hypotension. Patient also has cardiomyopathy with Ej Fx of 40 % on admission Obese : BMI 34.4 ? DM Other Dx (1) Cardiopulmonary arrest (2) Nosocomial pneumonia (3) Acute respiratory failure (4) COPD (chronic obstructive pulmonary disease) (5) Atrial fibrillation (6) Dementia with behavioral disturbance (7) CAD (coronary artery disease) Plan Due to tracheostomy today Today's labs reviewed D5 W IV fluids for hypernatremia as needed pressors are off now patient's condition somewhat more stable In ICU He is intubated ventilator, weaning is being tried His blood pressure is more stable Overall he is still doing poorly Adjust blood pressure medications Stress dose of steroids which we will start tapering today Previously Monitor renal parameters. Serum creatinine improved Monitor urine output. Urine output improved. Avoid nephrotoxics. Weaning as possible. Remains intubated at this time. Correct electrolyte imbalances. Change tube feeding to Glucerna. Subjective ROS Limited/Unobtainable: Yes Objective Objective Last 24 Hour Vital Signs Date Time Temp Pulse Resp B/P (MAP) Pulse Ox O2 Delivery O2 Flow Rate FiO2 09/10/19 09:30 65 14 30 09/10/19 08:00 30 09/10/19 07:00 65 15 116/49 (71) 96 09/10/19 06:30 74 15 09/10/19 06:00 68 16 122/56 (78) 94 09/10/19 05:00 68 16 123/61 (81) 94 09/10/19 04:55 79 20 30 09/10/19 04:00 98.4 67 16 108/48 (68) 95 09/10/19 04:00 66 09/10/19 04:00 30 09/10/19 04:00 Mechanical Ventilator Mechanical Ventilator 09/10/19 03:00 66 14 126/61 (82) 09/10/19 02:31 74 18 30 09/10/19 02:00 69 16 117/57 (77) 09/10/19 01:05 72 19 30 09/10/19 01:00 68 15 120/53 (75) 09/10/19 00:00 Mechanical Ventilator Mechanical Ventilator 09/10/19 00:00 69 09/10/19 00:00 98.5 66 16 115/45 (68) 09/10/19 00:00 30 09/09/19 23:02 77 18 30 09/09/19 23:00 68 14 105/50 (68) 09/09/19 22:00 72 18 128/53 (78) 09/09/19 21:00 66 14 111/53 (72) 09/09/19 20:35 72 20 30 09/09/19 20:00 70 09/09/19 20:00 Mechanical Ventilator Mechanical Ventilator 09/09/19 20:00 72 15 135/53 (80) 96 09/09/19 20:00 98.5 74 19 119/43 (68) 09/09/19 20:00 30 09/09/19 19:25 73 15 30 09/09/19 19:00 74 15 135/53 (80) 96 09/09/19 18:00 73 15 157/53 (87) 94 09/09/19 17:00 73 16 114/52 (72) 95 09/09/19 16:42 76 22 30 09/09/19 16:00 98.1 69 21 124/55 (78) 97 09/09/19 16:00 Mechanical Ventilator Mechanical Ventilator 09/09/19 16:00 75 09/09/19 16:00 30 09/09/19 15:00 75 20 149/66 (93) 97 09/09/19 14:00 76 20 131/52 (78) 94 09/09/19 13:24 75 21 30 30 09/09/19 13:00 74 20 129/53 (78) 94 09/09/19 12:00 30 09/09/19 12:00 Mechanical Ventilator Mechanical Ventilator 09/09/19 12:00 98.0 76 20 156/53 (87) 94 09/09/19 12:00 72 09/09/19 11:00 76 17 114/55 (74) 94 Intake and Output 09/09/19 09/10/19 19:00 07:00 Intake Total 660 ml 220 ml Output Total 530 ml 505 ml Balance 130 ml -285 ml Tube Feeding 660 ml 220 ml Output Urine Total 530 ml 505 ml # Bowel Movements 1 Laboratory Tests 09/10/19 03:45: White Blood Count 5.6, Red Blood Count 3.17L, Hemoglobin 9.9L, Hematocrit 29.1L , Mean Corpuscular Volume 92, Mean Corpuscular Hemoglobin 31.2H, Mean Corpuscular Hemoglobin Concent 33.9, Red Cell Distribution Width 13.3, Platelet Count 211, Mean Platelet Volume 5.5L, Neutrophils (%) (Auto) 57.7, Lymphocytes ( %) (Auto) 28.5, Monocytes (%) (Auto) 7.3, Eosinophils (%) (Auto) 5.7H, Basophils (%) (Auto) 0.8, Sodium Level 142, Potassium Level 4.0, Chloride Level 108H, Carbon Dioxide Level 31, Anion Gap 3L, Blood Urea Nitrogen 41H, Creatinine 0.5L, Estimat Glomerular Filtration Rate > 60, Glucose Level 83, Calcium Level 8.5, Phosphorus Level 3.5, Magnesium Level 1.7L, Total Bilirubin 0.7, Aspartate Amino Transf (AST/SGOT) 26, Alanine Aminotransferase (ALT/SGPT) 39, Alkaline Phosphatase 77, Total Protein 5.0L, Albumin 2.1L, Globulin 2.9, Albumin/Globulin Ratio 0.7L Height (Feet): 5 Height (Inches): 6.00 Weight (Pounds): 200 General Appearance: no apparent distress EENT: other - Remains intubated and on ventilator Cardiovascular: normal rate Respiratory/Chest: decreased breath sounds Abdomen: soft Objective no change Yunior Sexton MD Sep 10, 2019 10:16
[2019-09-10] MEDS: Bactrim-DS 1 tab ORAL SCH ×2 (10:25→18:43)
[2019-09-10] MEDS: Colistin for inhalation INH SCH ×2 (10:51→21:40)
[2019-09-10] MEDS ORDERED: Lidocaine 1% 10mg/ml/Epi 0.005mg/ml 30ml vial INJ ONE (12:37)
[2019-09-10] MEDS ORDERED: Rocuronium Bromide 50mg/5ml Inj IV ONE (13:49)
[2019-09-10] MEDS ORDERED: NS Irrig 1000ml ONE (14:00)
[2019-09-10] MEDS ORDERED: Sterile Water Irrig 1000ml IRRIG ONE (14:00)
[2019-09-10] MEDS ORDERED: LR 1000ml ONE (14:00)
--- NOTE | 2019-09-10 14:27 | Anethesia Preoperative Eval ---
Anesthesia Pre-op PMH/ROS General Date of Evaluation: Sep 10, 2019 Time of Evaluation: 13:59 Anesthesiologist: Bong ASA Score: ASA 4 Mallampati Score Class I : Soft palate, uvula, fauces, pillars visible Class II: Soft palate, uvula, fauces visible Class III: Soft palate, base of uvula visible Class IV: Only hard plate visible Mallampati Classification: Class III Surgeon: Shaheed Diagnosis: Ventilatory Failure Surgical Procedure: Tracheostomy Anesthesia History: none Family History: no anesthesia problems Allergies: Coded Allergies: No Known Allergies (Unverified , 06/03/17) Medications: see eMAR Patient NPO?: Yes NPO Date: Sep 10, 2019 NPO Time: 0000 Past Medical History Cardiovascular: Reports: HTN, arrhythmia - Pacemaker, other - CHF Pulmonary: Reports: asthma, COPD Neurologic/Psychiatric: Reports: dementia, CVA Hematology/Immune: Reports: anemia Anesthesia Pre-op Phys. Exam Physician Exam Last Vital Signs Date Time Temp Pulse Resp B/P (MAP) Pulse Ox O2 Delivery O2 Flow Rate FiO2 09/10/19 12:00 Mechanical Ventilator Mechanical Ventilator 09/10/19 12:00 30 09/10/19 12:00 97.6 68 13 124/64 (84) 95 09/01/19 07:16 10.0 Constitutional: NAD Neurologic: CN 2-12 intact Cardiovascular: RRR Respiratory: CTA Gastrointestinal: S/NT/ND Airway Exam Mallampati Score: Class III MO: limited ROM: limited Teeth: missing Anesthesia Pre-op A/P Labs Hematology Test 09/10/19 03:45 White Blood Count 5.6 K/UL (4.8-10.8) Red Blood Count 3.17 M/UL (4.70-6.10) L Hemoglobin 9.9 G/DL (14.2-18.0) L Hematocrit 29.1 % (42.0-52.0) L Mean Corpuscular Volume 92 FL (80-99) Mean Corpuscular Hemoglobin 31.2 PG (27.0-31.0) H Mean Corpuscular Hemoglobin Concent 33.9 G/DL (32.0-36.0) Red Cell Distribution Width 13.3 % (11.6-14.8) Platelet Count 211 K/UL (150-450) Mean Platelet Volume 5.5 FL (6.5-10.1) L Neutrophils (%) (Auto) 57.7 % (45.0-75.0) Lymphocytes (%) (Auto) 28.5 % (20.0-45.0) Monocytes (%) (Auto) 7.3 % (1.0-10.0) Eosinophils (%) (Auto) 5.7 % (0.0-3.0) H Basophils (%) (Auto) 0.8 % (0.0-2.0) Chemistry Test 09/10/19 03:45 Sodium Level 142 MMOL/L (136-145) Potassium Level 4.0 MMOL/L (3.5-5.1) Chloride Level 108 MMOL/L (98-107) H Carbon Dioxide Level 31 MMOL/L (21-32) Anion Gap 3 mmol/L (5-15) L Blood Urea Nitrogen 41 mg/dL (7-18) H Creatinine 0.5 MG/DL (0.55-1.30) L Estimat Glomerular Filtration Rate > 60 mL/min (>60) Glucose Level 83 MG/DL (74-106) Calcium Level 8.5 MG/DL (8.5-10.1) Phosphorus Level 3.5 MG/DL (2.5-4.9) Magnesium Level 1.7 MG/DL (1.8-2.4) L Total Bilirubin 0.7 MG/DL (0.2-1.0) Aspartate Amino Transf (AST/SGOT) 26 U/L (15-37) Alanine Aminotransferase (ALT/SGPT) 39 U/L (12-78) Alkaline Phosphatase 77 U/L (46-116) Total Protein 5.0 G/DL (6.4-8.2) L Albumin 2.1 G/DL (3.4-5.0) L Globulin 2.9 g/dL Albumin/Globulin Ratio 0.7 (1.0-2.7) L Risk Assessment & Plan Assessment: ASA 4 Plan: GA Status Change Before Surgery: No Pre-Antibiotics Drug: on Floor Russell Woody MD Sep 10, 2019 14:26
--- NOTE | 2019-09-10 14:28 | Immediate Post-Op Evaluation ---
Immediate Post-Op Evalulation Immediate Post-Op Evalulation Procedure: Tracheostomy Date of Evaluation: Sep 10, 2019 Time of Evaluation: 15:00 IV Fluids: 100 NS Blood Products: 0 Estimated Blood Loss: 10 Urinary Output: 0 Blood Pressure Systolic: 135 Blood Pressure Diastolic: 69 Pulse Rate: 70 Respiratory Rate: 20 - Mech Vent O2 Sat by Pulse Oximetry: 98 Temperature (Fahrenheit): 98.6 Pain Score (1-10): 0 Nausea: No Vomiting: No Complications 0 Patient Status: no response, patent, ventilated, none Hydration Status: adequate Russell Woody MD Sep 10, 2019 14:28
--- NOTE | 2019-09-10 15:38 | Surgery Progress Note ---
Surgery Progress Note Subjective Additional Comments trach today Objective Last 24 Hour Vital Signs Date Time Temp Pulse Resp B/P (MAP) Pulse Ox O2 Delivery O2 Flow Rate FiO2 09/10/19 15:00 80 15 158/68 (98) 92 09/10/19 14:44 70 20 98 09/10/19 14:40 80 14 120/66 (84) 94 09/10/19 13:00 66 14 117/46 (69) 94 09/10/19 12:00 70 09/10/19 12:00 Mechanical Ventilator Mechanical Ventilator 09/10/19 12:00 30 09/10/19 12:00 97.6 68 13 124/64 (84) 95 09/10/19 11:00 62 13 102/50 (67) 99 09/10/19 10:51 67 19 98 Mechanical Ventilator 30 68 15 30 09/10/19 10:00 68 18 130/58 (82) 100 09/10/19 09:30 65 14 30 09/10/19 09:00 63 15 122/55 (77) 96 09/10/19 08:00 97.5 66 14 117/52 (73) 96 09/10/19 08:00 30 09/10/19 08:00 Mechanical Ventilator Mechanical Ventilator 09/10/19 08:00 66 09/10/19 07:10 63 14 30 09/10/19 07:00 65 15 116/49 (71) 96 09/10/19 06:30 74 15 09/10/19 06:00 68 16 122/56 (78) 94 09/10/19 05:00 68 16 123/61 (81) 94 09/10/19 04:55 79 20 30 09/10/19 04:00 98.4 67 16 108/48 (68) 95 09/10/19 04:00 66 09/10/19 04:00 30 09/10/19 04:00 Mechanical Ventilator Mechanical Ventilator 09/10/19 03:00 66 14 126/61 (82) 09/10/19 02:31 74 18 30 09/10/19 02:00 69 16 117/57 (77) 09/10/19 01:05 72 19 30 09/10/19 01:00 68 15 120/53 (75) 09/10/19 00:00 Mechanical Ventilator Mechanical Ventilator 09/10/19 00:00 69 09/10/19 00:00 98.5 66 16 115/45 (68) 09/10/19 00:00 30 09/09/19 23:02 77 18 30 09/09/19 23:00 68 14 105/50 (68) 09/09/19 22:00 72 18 128/53 (78) 09/09/19 21:00 66 14 111/53 (72) 09/09/19 20:35 72 20 30 09/09/19 20:00 70 09/09/19 20:00 Mechanical Ventilator Mechanical Ventilator 09/09/19 20:00 72 15 135/53 (80) 96 09/09/19 20:00 98.5 74 19 119/43 (68) 09/09/19 20:00 30 09/09/19 19:25 73 15 30 09/09/19 19:00 74 15 135/53 (80) 96 09/09/19 18:00 73 15 157/53 (87) 94 09/09/19 17:00 73 16 114/52 (72) 95 09/09/19 16:42 76 22 30 09/09/19 16:00 98.1 69 21 124/55 (78) 97 09/09/19 16:00 Mechanical Ventilator Mechanical Ventilator 09/09/19 16:00 75 09/09/19 16:00 30 I&O Intake and Output 09/09/19 09/10/19 19:00 07:00 Intake Total 660 ml 220 ml Output Total 530 ml 505 ml Balance 130 ml -285 ml Tube Feeding 660 ml 220 ml Output Urine Total 530 ml 505 ml # Bowel Movements 1 Dressing: other Wound: other Drains: other Cardiovascular: RSR Respiratory: decreased breath sounds Abdomen: soft, present bowel sounds Extremities: no cyanosis Laboratory Tests Test 09/10/19 03:45 White Blood Count 5.6 K/UL (4.8-10.8) Red Blood Count 3.17 M/UL (4.70-6.10) L Hemoglobin 9.9 G/DL (14.2-18.0) L Hematocrit 29.1 % (42.0-52.0) L Mean Corpuscular Volume 92 FL (80-99) Mean Corpuscular Hemoglobin 31.2 PG (27.0-31.0) H Mean Corpuscular Hemoglobin Concent 33.9 G/DL (32.0-36.0) Red Cell Distribution Width 13.3 % (11.6-14.8) Platelet Count 211 K/UL (150-450) Mean Platelet Volume 5.5 FL (6.5-10.1) L Neutrophils (%) (Auto) 57.7 % (45.0-75.0) Lymphocytes (%) (Auto) 28.5 % (20.0-45.0) Monocytes (%) (Auto) 7.3 % (1.0-10.0) Eosinophils (%) (Auto) 5.7 % (0.0-3.0) H Basophils (%) (Auto) 0.8 % (0.0-2.0) Sodium Level 142 MMOL/L (136-145) Potassium Level 4.0 MMOL/L (3.5-5.1) Chloride Level 108 MMOL/L (98-107) H Carbon Dioxide Level 31 MMOL/L (21-32) Anion Gap 3 mmol/L (5-15) L Blood Urea Nitrogen 41 mg/dL (7-18) H Creatinine 0.5 MG/DL (0.55-1.30) L Estimat Glomerular Filtration Rate > 60 mL/min (>60) Glucose Level 83 MG/DL (74-106) Calcium Level 8.5 MG/DL (8.5-10.1) Phosphorus Level 3.5 MG/DL (2.5-4.9) Magnesium Level 1.7 MG/DL (1.8-2.4) L Total Bilirubin 0.7 MG/DL (0.2-1.0) Aspartate Amino Transf (AST/SGOT) 26 U/L (15-37) Alanine Aminotransferase (ALT/SGPT) 39 U/L (12-78) Alkaline Phosphatase 77 U/L (46-116) Total Protein 5.0 G/DL (6.4-8.2) L Albumin 2.1 G/DL (3.4-5.0) L Globulin 2.9 g/dL Albumin/Globulin Ratio 0.7 (1.0-2.7) L Plan Problems: (1) Nosocomial pneumonia (2) AUREA (acute kidney injury) (3) Cardiomyopathy (4) Obesity (BMI 30.0-34.9) (5) DMII (diabetes mellitus, type 2) (6) Cardiac LV ejection fraction 40% (7) Pulmonary edema (8) Cardiopulmonary arrest Assessment & Plan: Cardiopulmonary arrest septic requiring urgent emergency line placement for pressors and fluids and meds Please see procedure report Full examination performed no other surgical issues found at this time etiology unknown likely surgical in nature Antibiotics fluids Pressors Vent weaning trials right groin site okay. no hematoma. no bleeding left arm picc okay NG tube is present in good position. A partial left lateral decubitus view of the abdomen performed as well as a supine view. The left lateral decubitus view is not adequate as the area of interest which would be the nondependent right side of the abdomen, which is the area of interest was not imaged and is beyond the field-of -view of the x-ray. Bowel gas pattern appears nonobstructive on the basis of the partial images obtained. off pressors labs reviewed cont tube feeds Unable to wean from ventilator. Labs noted ABG noted imaging reviewed cont weaning. if possible extubate otherwise will consider trach extubated improving monitor in ICU for now downgrade re-intubated on vent support on pressors wean pressors will monitor * Interval removal of endotracheal tube. NG tube and left arm PICC line remain in place. * Apparent worsening of aeration with increasing hazy opacities in the bilateral lower lungs which may in part be related to artifact from patient positioning however layering bilateral pleural effusions and bilateral airspace disease not excluded. Follow-up recommended. trach today does not seem to be able to wean (9) Respiratory failure (10) History of hypertension (11) COPD (chronic obstructive pulmonary disease) (12) CAD (coronary artery disease) (13) Atrial fibrillation (14) Dementia with behavioral disturbance (15) Upper respiratory infection (16) Acute respiratory failure (17) Dyspnea (18) UTI (urinary tract infection) Prosper Hummel Sep 10, 2019 15:38
--- NOTE | 2019-09-10 15:39 | Brief Operative Note ---
Immediate Post Operative Note Operative Note Pre-op Diagnosis: Sepsis, hypotension, tachycardia, critically ill Respiratory insufficiency requiring prolonged ventilatory support Procedure: Tracheostomy Post-op Diagnosis: same as pre-op Surgeon: Prosper Hummel MD Anesthesia: general, local Specimen: none Complications: none Condition: stable Fluids: See anesthesia records Estimated Blood Loss: minimal Drains: none Implant(s) used?: Prosper Ruiz Sep 10, 2019 15:39
[2019-09-10] MEDS: Dyna-Hex 2% Top Sol 2oz TOPIC SCH (20:23)
[2019-09-10] MEDS: Atorvastatin 20mg tab NG SCH (20:24)
--- NOTE | 2019-09-10 21:30 | Operative Note - Dictated ---
DATE OF OPERATION: 09/10/2019 PREOPERATIVE DIAGNOSIS: Respiratory insufficiency requiring prolonged ventilatory support. POSTOPERATIVE DIAGNOSIS: Respiratory insufficiency requiring prolonged ventilatory support. OPERATION PERFORMED: Tracheostomy. ATTENDING SURGEON: Prosper Hummel M.D. DRYWALL SANDER: None. ANESTHESIOLOGIST: Russell Woody M.D. ANESTHESIA: General PRE K TEACHER plus local. ESTIMATED BLOOD LOSS: Minimal. IV FLUIDS: Please see anesthesia records. COMPLICATIONS: None. DRAINS: None. COUNTS: Sponge and needle count correct x2. IMPLANTS: 8-Japanese Shiley tracheostomy tube. ANTIBIOTICS: The patient on scheduled antibiotics. WOUND CLASSIFICATION: Class 1. INDICATIONS FOR PROCEDURE: This is a 79-year-old male, critically ill in the intensive care unit, who has been extubated twice and required re-intubation given the respiratory insufficiency and failure. Patient is unable to be weaned from the ventilator support safely for appropriate extubation. Given prolonged period of intubation with ventilator support and likely a prolonged period of requiring ventilator support, surgery is indicated and recommended of tracheostomy. I discussed the case in detail with patient's primary care physician, consultants as well as the patient's head mixer. Patient unfortunately unable to consent for himself. No next of kin or power of supervisor spring up at this time. Given his condition, goals of care and plan with good potential recovery indicated, tracheostomy is indicated and recommended and medically necessary. OPERATIVE NOTE: Patient was taken to the operating room and placed on the operating room in supine position with bilateral arms down. All bony prominences were well padded. SCDs placed. Preoperative time-out taken identifying patient, procedure, operative staff, and surgical staff. Prior to entering the operating room, patient was already on scheduled antibiotics. Had a Abraham catheter, G-tube as well as ET tube in place. A shoulder roll was placed. Neck was hyperextended. The neck was prepped and draped in the standard surgical fashion. Anatomical landmarks were identified. Local anesthetic was infiltrated. Skin incision was made 2 fingerbreadths above the sternal notch. Incision was carried down through the subcutaneous tissue, platysma, and down to the trachea. The tracheal notch was identified, palpated, and tracheal hook was placed. The first and second tracheal rings were dissected out until clear. Good hemostasis noted. No complications at this time. An incision was made between the first and second tracheal ring and the trachea was entered. A small window was made and the ET tube was identified. With the assistance of anesthesiologist, the ET tube was slowly withdrawn until above the level of the tracheal window. An 8-Japanese Shiley tracheostomy was inserted under direct visualization without complication. The balloon was insufflated and the patient was ventilated through the tracheostomy with good end-tidal CO2 and volumes. Patient was suctioned clear and 2-0 Monocryl sutures were used to reapproximate the skin incision followed by tracheal tie placement and dressing placement. Patient tolerated the procedure well, was taken directly to the intensive care unit in stable condition. Prosper Hummel M.D. DR: DANIEL JOB#: [id number] CC:
[2019-09-11] VITALS (19 sets, daily range): BP systolic 126–153; BP diastolic 54–70
--- NOTE | 2019-09-11 01:00 | Progress Note ---
DATE: 09/10/2019 SUBJECTIVE: The patient is status post tracheostomy today. No complications noted. Site without any active bleeding on ventilator support. Thin secretions. PHYSICAL EXAMINATION: VITAL SIGNS: Blood pressure 143/67, pulse 71, respiratory rate 15, afebrile. LUNGS: Coarse breath sounds. HEART: Regular rhythm and rate. Normal S1, S2. ABDOMEN: Soft. EXTREMITIES: No edema. LABORATORY DATA: White count 5.6, hemoglobin 10. Potassium 4, BUN 41, creatinine 0.5. Magnesium 1.7. IMPRESSION: 1. Respiratory failure. 2. Recurring respiratory arrest status post tracheostomy. 3. Hypomagnesemia. 4. Paroxysmal atrial fibrillation. 5. Acute on chronic diastolic congestive heart failure mostly clinically compensated. 6. Severe protein-calorie malnutrition. 7. Bundle-branch block and conduction system disease with bradyarrhythmias presently stable and of no hemodynamic significant. PLAN: 1. Trach care. 2. Respiratory hygiene. 3. Weaning efforts. 4. Continue amiodarone. 5. Monitor for clinically significant bradyarrhythmia. 6. Antiplatelet therapy. 7. IV magnesium. 8. Discharge planning to follow. Saeed Sim M.D. DR: Bruno JOB#: [id number] CC:
[2019-09-11 05:51] LABS: BASOPHILS % (AUTO) 0.8 % (0.0-2.0); EOSINOPHILS % (AUTO) 4.4 % (0.0-3.0); HEMATOCRIT 29.8 % (42.0-52.0); HEMOGLOBIN 10.1 G/DL (14.2-18.0); MEAN CORPUSCULAR VOLUME 91 FL (80-99); MONOCYTES % (AUTO) 7.5 % (1.0-10.0); NEUTROPHILS % (AUTO) 67.4 % (45.0-75.0); PLATELET COUNT 250 K/UL (150-450); RED BLOOD COUNT 3.27 M/UL (4.70-6.10); RED CELL DISTRIBUTION WIDTH 13.5 % (11.6-14.8); WHITE BLOOD COUNT 6.4 K/UL (4.8-10.8)
[2019-09-11 06:16] LABS: ALANINE AMINOTRANSFERASE 49 U/L (12-78); ALBUMIN 2.1 G/DL (3.4-5.0); ALBUMIN/GLOBULIN RATIO 0.7 (1.0-2.7); ALKALINE PHOSPHATASE 82 U/L (46-116); ANION GAP 9 mmol/L (5-15); ASPARTATE AMINO TRANSFERASE 34 U/L (15-37); BILIRUBIN,TOTAL 0.6 MG/DL (0.2-1.0); BLOOD UREA NITROGEN 35 mg/dL (7-18); CALCIUM 8.5 MG/DL (8.5-10.1); CARBON DIOXIDE 27 MMOL/L (21-32); CHLORIDE 105 MMOL/L (98-107); CREATININE 0.6 MG/DL (0.55-1.30); PHOSPHORUS 3.7 MG/DL (2.5-4.9); POTASSIUM 3.9 MMOL/L (3.5-5.1); SODIUM 141 MMOL/L (136-145)
--- NOTE | 2019-09-11 08:39 | Infectious Diseases Prog Note ---
Assessment/Plan Assessment/Plan ASSESSMENT: The patient is a 79-year-old male with: Multiple reintubations, likely cannot maintain airway Low grade temp, SP No leukocytosis Developing PNA 08/31 CXR: There is a hazy opacity at the left lung base again noted unchanged. Mild linear densities are seen in the right midlung which may be atelectasis or scarring. 09/02 CXR: Hazy basilar opacities, most likely due to overlying soft tissue shadows but hazy infiltrates also possible. If the latter, stable on the left, new or increased on the right. 09/04: Suspected pneumonia at the left lung base 09/05 CXR: Bilateral lower lobe infiltrates/atelectasis, similar to prior. 09/08 CXR: Hazy left greater than right basilar opacity and borderline interstitial congestive changes persist. Leukocytosis; Sp Fever , sp Sepsis, Sp Pneumonia (probable asp), Sp RX -08/28 CXR: Interval removal of endotracheal tube. NG tube and left arm PICC line remain in place. Apparent worsening of aeration with increasing hazy opacities in the bilateral lower lungs which may in part be related to artifact from patient positioning however layering bilateral pleural effusions and bilateral airspace disease not excluded. -08/13 Scx: MDR-ACB (Tygacil LANI: 4) - CXR: 1. Streaky opacities in the right lower lung may represent atelectasis versus scarring. Left basilar opacity may represent atelectasis. Component of pneumonia is not excluded. Pulmonary vasculature congestion. -08/01 ucx NTD -sp cx: nl anastacio Urinary tract infection, SP Rx 08/31 SP rapid response and reintubation 08/17 Sp code blue and intubation , extubated 08/27 07/31 Sp Code blue and intubation , sp extubation 08/12 , Hyperlipidemia. COPD. History of GERD. History of encephalopathy. History of CAD/MS. History of cardiomyopathy. Hypertension. PLAN: INH colistin #2 and add bactrim #2 09/09 SP colistin IV #6 -08/28 SP Colistin INH (MDR-ACB) # 14 - 08/22/19 SP Merrem 10 - 08/14 SP IV Vanco # 4 -08/07 SP Zosyn and IV Vanco # 7/ , -08/01 SP Rocephin day # 10 - 07/31 sp sp Dox # 6 Monitor CBC. Monitor BMP. monitor temp and VS Monitor chest x-ray cont ICU Support DW RN Subjective Allergies: Coded Allergies: No Known Allergies (Unverified , 06/03/17) Subjective Afebrile. FiO2 30% No leukocytosis SP Trach yesterday Objective Vital Signs Last 24 Hour Vital Signs Date Time Temp Pulse Resp B/P (MAP) Pulse Ox O2 Delivery O2 Flow Rate FiO2 09/11/19 07:30 80 21 30 09/11/19 06:00 74 18 148/63 (91) 97 09/11/19 05:00 74 18 148/63 (91) 97 09/11/19 04:53 73 15 30 09/11/19 04:00 30 09/11/19 04:00 Mechanical Ventilator Mechanical Ventilator 09/11/19 04:00 75 17 138/59 (85) 94 09/11/19 04:00 76 09/11/19 03:00 74 12 150/62 (91) 99 09/11/19 02:57 75 17 30 09/11/19 02:00 74 17 140/68 (92) 95 09/11/19 01:00 74 17 148/68 (94) 95 09/11/19 01:00 74 20 30 09/11/19 00:00 98.0 75 17 137/70 (92) 94 09/11/19 00:00 Mechanical Ventilator Mechanical Ventilator 09/11/19 00:00 73 09/11/19 00:00 30 09/10/19 23:00 74 18 139/65 (89) 94 09/10/19 22:46 74 18 30 09/10/19 22:00 75 17 152/70 (97) 96 09/10/19 21:55 73 16 100 Mechanical Ventilator 30 09/10/19 21:40 74 16 Mechanical Ventilator 30 30 09/10/19 21:00 74 17 154/68 (96) 92 09/10/19 20:00 70 14 153/65 (94) 96 09/10/19 20:00 71 09/10/19 20:00 30 09/10/19 20:00 Mechanical Ventilator Mechanical Ventilator 09/10/19 19:20 79 16 30 09/10/19 19:00 71 15 143/67 (92) 94 09/10/19 18:00 75 16 145/90 (108) 95 09/10/19 17:55 65 20 30 09/10/19 17:00 67 14 140/64 (89) 94 09/10/19 16:16 67 19 30 09/10/19 16:00 30 09/10/19 16:00 Mechanical Ventilator Mechanical Ventilator 09/10/19 16:00 97.5 76 14 151/76 (101) 93 09/10/19 16:00 74 09/10/19 15:00 80 15 158/68 (98) 92 09/10/19 14:44 70 20 98 09/10/19 14:40 80 14 120/66 (84) 94 09/10/19 13:00 66 14 117/46 (69) 94 09/10/19 12:00 70 09/10/19 12:00 Mechanical Ventilator Mechanical Ventilator 09/10/19 12:00 30 09/10/19 12:00 97.6 68 13 124/64 (84) 95 09/10/19 11:00 62 13 102/50 (67) 99 09/10/19 10:51 67 19 98 Mechanical Ventilator 30 68 15 30 09/10/19 10:00 68 18 130/58 (82) 100 09/10/19 09:30 65 14 30 09/10/19 09:00 63 15 122/55 (77) 96 Height (Feet): 5 Height (Inches): 5.00 Weight (Pounds): 190 Objective Gen: NAD. calm. comfortable HEENT: ETT CV: RRR. no rubs Resp: RRR. equal chest rise. no wheezes. Abd: nondistended. no palpable masses Laboratory Tests Test 09/11/19 03:45 White Blood Count 6.4 K/UL (4.8-10.8) Red Blood Count 3.27 M/UL (4.70-6.10) L Hemoglobin 10.1 G/DL (14.2-18.0) L Hematocrit 29.8 % (42.0-52.0) L Mean Corpuscular Volume 91 FL (80-99) Mean Corpuscular Hemoglobin 30.9 PG (27.0-31.0) Mean Corpuscular Hemoglobin Concent 33.9 G/DL (32.0-36.0) Red Cell Distribution Width 13.5 % (11.6-14.8) Platelet Count 250 K/UL (150-450) Mean Platelet Volume 5.2 FL (6.5-10.1) L Neutrophils (%) (Auto) 67.4 % (45.0-75.0) Lymphocytes (%) (Auto) 20.0 % (20.0-45.0) Monocytes (%) (Auto) 7.5 % (1.0-10.0) Eosinophils (%) (Auto) 4.4 % (0.0-3.0) H Basophils (%) (Auto) 0.8 % (0.0-2.0) Sodium Level 141 MMOL/L (136-145) Potassium Level 3.9 MMOL/L (3.5-5.1) Chloride Level 105 MMOL/L (98-107) Carbon Dioxide Level 27 MMOL/L (21-32) Anion Gap 9 mmol/L (5-15) Blood Urea Nitrogen 35 mg/dL (7-18) H Creatinine 0.6 MG/DL (0.55-1.30) Estimat Glomerular Filtration Rate > 60 mL/min (>60) Glucose Level 108 MG/DL (74-106) H Calcium Level 8.5 MG/DL (8.5-10.1) Phosphorus Level 3.7 MG/DL (2.5-4.9) Magnesium Level 2.1 MG/DL (1.8-2.4) Total Bilirubin 0.6 MG/DL (0.2-1.0) Aspartate Amino Transf (AST/SGOT) 34 U/L (15-37) Alanine Aminotransferase (ALT/SGPT) 49 U/L (12-78) Alkaline Phosphatase 82 U/L (46-116) Total Protein 5.2 G/DL (6.4-8.2) L Albumin 2.1 G/DL (3.4-5.0) L Globulin 3.1 g/dL Albumin/Globulin Ratio 0.7 (1.0-2.7) L Current Medications Medications (Trade) Dose Ordered Sig/Amaris Route PRN Reason Start Time Stop Time Status Last Admin Dose Admin Acetaminophen (Tylenol) 650 mg Q4H PRN NG Mild Pain/Temp > 100.5 09/01/19 10:20 10/01/19 10:19 Amiodarone HCl (Cordarone) 200 mg DAILY NG 09/01/19 10:22 11/30/19 10:21 09/10/19 09:08 Atorvastatin Calcium (Lipitor) 40 mg BEDTIME NG 09/01/19 21:00 09/13/19 20:59 09/10/19 20:24 Chlorhexidine Gluconate (Kamila-Hex 2%) 1 applic DAILY@1999 TOPIC 09/01/19 20:00 09/17/19 19:59 09/10/19 20:23 Clopidogrel Bisulfate (Plavix) 75 mg DAILY NG 09/01/19 10:22 10/01/19 10:21 09/10/19 09:08 Colistimethate Sodium (Colistin *inhalation use only*) 75 mg Q12HR@ INH 09/10/19 10:00 09/17/19 09:59 09/10/19 21:40 Heparin Sodium (Porcine) (Heparin 5000 units/ml) 5,000 units EVERY 12 HOURS SUBQ 09/01/19 10:23 10/16/19 10:22 09/09/19 21:20 Hydralazine HCl (Apresoline) 25 mg Q6HR PRN NG SBP above 160 09/02/19 01:45 12/01/19 01:44 Pantoprazole (Protonix) 40 mg EVERY 12 HOURS IVP 09/01/19 10:23 10/01/19 10:22 09/10/19 20:24 Trimethoprim/ Sulfamethoxazole (Bactrim-DS) 1 tab TWICE A DAY ORAL 09/10/19 10:00 09/17/19 09:59 09/10/19 18:43 Rafy Page MD Sep 11, 2019 08:39
[2019-09-11] MEDS: Pantoprazole Inj IVP SCH ×2 (08:43→20:54)
[2019-09-11] MEDS: Bactrim-DS 1 tab ORAL SCH ×2 (08:43→17:48)
[2019-09-11] MEDS: Heparin 5000 units/ml inj SUBQ SCH ×2 (08:43→20:55)
[2019-09-11] MEDS: Amiodarone 200mg tab NG SCH (08:43)
[2019-09-11] MEDS: Colistin for inhalation INH SCH ×2 (09:11→21:56)
--- NOTE | 2019-09-11 09:20 | Diagnostic Imaging Report ---
Indication: Dyspnea Technique: One view of the chest Comparison: 09/09/2019 Findings: Interim replacement of endotracheal tube with a tracheostomy. Left pleural effusion, bilateral interstitial congestion and hazy airspace disease persist, probably unchanged. Impression: Endotracheal tube has been exchanged for tracheostomy Otherwise, essentially unchanged over 2 days, findings as described
--- NOTE | 2019-09-11 10:23 | General Progress Note ---
Assessment/Plan Assessment/Plan: Covering Dr. Mulligan # Anemia of chronic disease due to underlying chronic medical issues, multifactorial v Gi bleed --> Anemia workup has been ordered, rule out gi bleed --> No evidence of hemolysis is noted, peripheral smear has been reviewed. --> Hgb goal >7. Transfuse prn. --> Epogen or iron at this time is not particularly indicated --> Medications have been reviewed --> low threshold for gi evaluation in case has occult + # Respiratory failure is now s/p trach placed 09/10 --> s/p multple intubations and extubations --> as per surg recs # Developing PNA --> s/p rx, on abx colisitn and bactrim # Sepsis s/p Pneumonia (probable asp), Sp RX # Hypomagnesemia. --> replete with mg as per nenal # paroxysmal atrial fibrillation. --> hold off on anticoag # Acute on chronic diastolic congestive heart failure mostly clinically compensated. --> as per cards recs # Severe protein-calorie malnutrition. 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 Subjective Constitutional: Denies: no symptoms, chills, diaphoresis, fever, malaise, weakness, other HEENT: Denies: no symptoms, eye pain, blurred vision, tearing, double vision, ear pain, ear discharge, nose pain, nose congestion, throat pain, throat swelling, mouth pain, mouth swelling, other Cardiovascular: Denies: no symptoms, chest pain, edema, irregular heart rate, lightheadedness, palpitations, syncope, other Respiratory: Denies: no symptoms, cough, orthopnea, shortness of breath, SOB with excertion, SOB at rest, sputum, stridor, wheezing, other Gastrointestinal/Abdominal: Denies: no symptoms, abdomen distended, abdominal pain, black stools, tarry stools, blood in stool, constipated, diarrhea, difficulty swallowing, nausea, poor appetite, poor fluid intake, rectal bleeding , vomiting, other Genitourinary: Denies: no symptoms, burning, discharge, frequency, flank pain, hematuria, incontinence, pain, urgency, other Allergies: Coded Allergies: No Known Allergies (Unverified , 06/03/17) All Systems: reviewed and negative except above Subjective 09/10 no events, is tolerating trach well, labs noted Objective Last 24 Hour Vital Signs Date Time Temp Pulse Resp B/P (MAP) Pulse Ox O2 Delivery O2 Flow Rate FiO2 09/11/19 09:07 79 19 99 Mechanical Ventilator 30 78 19 30 09/11/19 09:00 76 17 138/57 (84) 99 09/11/19 08:00 30 09/11/19 08:00 Mechanical Ventilator Mechanical Ventilator 09/11/19 08:00 97.7 73 15 139/60 (86) 96 09/11/19 07:30 80 21 30 09/11/19 07:00 76 18 141/59 (86) 96 09/11/19 06:00 74 18 148/63 (91) 97 09/11/19 05:00 74 18 148/63 (91) 97 09/11/19 04:53 73 15 30 09/11/19 04:00 30 09/11/19 04:00 Mechanical Ventilator Mechanical Ventilator 09/11/19 04:00 75 17 138/59 (85) 94 09/11/19 04:00 76 09/11/19 03:00 74 12 150/62 (91) 99 09/11/19 02:57 75 17 30 09/11/19 02:00 74 17 140/68 (92) 95 09/11/19 01:00 74 17 148/68 (94) 95 09/11/19 01:00 74 20 30 09/11/19 00:00 98.0 75 17 137/70 (92) 94 09/11/19 00:00 Mechanical Ventilator Mechanical Ventilator 09/11/19 00:00 73 09/11/19 00:00 30 09/10/19 23:00 74 18 139/65 (89) 94 09/10/19 22:46 74 18 30 09/10/19 22:00 75 17 152/70 (97) 96 09/10/19 21:55 73 16 100 Mechanical Ventilator 30 09/10/19 21:40 74 16 Mechanical Ventilator 30 30 09/10/19 21:00 74 17 154/68 (96) 92 09/10/19 20:00 70 14 153/65 (94) 96 09/10/19 20:00 71 09/10/19 20:00 30 09/10/19 20:00 Mechanical Ventilator Mechanical Ventilator 09/10/19 19:20 79 16 30 09/10/19 19:00 71 15 143/67 (92) 94 09/10/19 18:00 75 16 145/90 (108) 95 09/10/19 17:55 65 20 30 09/10/19 17:00 67 14 140/64 (89) 94 09/10/19 16:16 67 19 30 09/10/19 16:00 30 09/10/19 16:00 Mechanical Ventilator Mechanical Ventilator 09/10/19 16:00 97.5 76 14 151/76 (101) 93 09/10/19 16:00 74 09/10/19 15:00 80 15 158/68 (98) 92 09/10/19 14:44 70 20 98 09/10/19 14:40 80 14 120/66 (84) 94 09/10/19 13:00 66 14 117/46 (69) 94 09/10/19 12:00 70 09/10/19 12:00 Mechanical Ventilator Mechanical Ventilator 09/10/19 12:00 30 09/10/19 12:00 97.6 68 13 124/64 (84) 95 09/10/19 11:00 62 13 102/50 (67) 99 09/10/19 10:51 67 19 98 Mechanical Ventilator 30 68 15 30 Intake and Output 09/10/19 09/11/19 19:00 07:00 Intake Total 350 ml 370 ml Output Total 410 ml 250 ml Balance -60 ml 120 ml Free Water 30 ml IV Total 100 ml Tube Feeding 50 ml 340 ml Other 200 ml Output Urine Total 410 ml 250 ml # Bowel Movements 1 3 Laboratory Tests 09/11/19 03:45: White Blood Count 6.4, Red Blood Count 3.27L, Hemoglobin 10.1L, Hematocrit 29.8L , Mean Corpuscular Volume 91, Mean Corpuscular Hemoglobin 30.9, Mean Corpuscular Hemoglobin Concent 33.9, Red Cell Distribution Width 13.5, Platelet Count 250, Mean Platelet Volume 5.2L, Neutrophils (%) (Auto) 67.4, Lymphocytes ( %) (Auto) 20.0, Monocytes (%) (Auto) 7.5, Eosinophils (%) (Auto) 4.4H, Basophils (%) (Auto) 0.8, Sodium Level 141, Potassium Level 3.9, Chloride Level 105, Carbon Dioxide Level 27, Anion Gap 9, Blood Urea Nitrogen 35H, Creatinine 0.6, Estimat Glomerular Filtration Rate > 60, Glucose Level 108H, Calcium Level 8.5, Phosphorus Level 3.7, Magnesium Level 2.1, Total Bilirubin 0.6, Aspartate Amino Transf (AST/SGOT) 34, Alanine Aminotransferase (ALT/SGPT) 49, Alkaline Phosphatase 82, Total Protein 5.2L, Albumin 2.1L, Globulin 3.1, Albumin/ Globulin Ratio 0.7L 09/11/19 08:45: Arterial Blood pH 7.427, Arterial Blood Partial Pressure CO2 43.8, Arterial Blood Partial Pressure O2 82.1, Arterial Blood HCO3 28.2H, Arterial Blood Oxygen Saturation 95.6, Arterial Blood Base Excess 3.4H, Joe Test Positive Height (Feet): 5 Height (Inches): 5.00 Weight (Pounds): 190 Objective General Appearance: no apparent distress EENT: other - Remains intubated and on ventilator ++ trach Cardiovascular: normal rate Respiratory/Chest: decreased breath sounds Abdomen: soft Objective no change [place] Bailey MD Sep 11, 2019 10:23
--- NOTE | 2019-09-11 10:45 | Progress Note ---
DATE: 09/08/2019 SUBJECTIVE: The patient is afebrile and hemodynamically stable. PHYSICAL EXAMINATION: VITAL SIGNS: Blood pressure 123/64, pulse 71, respirations 19, temperature 98.5. HEENT: Eyes were normal. ENT, mucous membranes moist and intact. NECK: Supple with no JVD. LUNGS: Clear. HEART: Normal sounds with regular beat. There is no tachycardia at rest. ABDOMEN: Soft and nontender with normal bowel sounds. EXTREMITIES: Warm without cyanosis, clubbing, or edema. LABORATORY AND DIAGNOSTIC DATA: Hemoglobin is 9.6, hematocrit 28.8 with MCV of 93, WBC of 6.3, and platelets of 203. BUN and creatinine is 36 and 0.6 respectively. His sodium is 143, potassium 3.9, chloride 108, CO2 is 26, calcium is 8.6, phosphorus 3.6, magnesium is 1.8, albumin 2.0, and total protein is 5. IMPRESSION: The patient failed to be extubated now several times and it appears that his case will be decided by been a physician for more than 20 years since he was in in 1997 the time that I know this patient, he wanted to stay several times over the last 20 years. The patient was an alcoholic. 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 Over the last year, he developed dementia and the patient was not hospitalized and the issue had to be brought up. Modesta Mulligan M.D. DR: Sravani JOB#: [id number] CC:
[2019-09-11 10:46] LABS: % IRON SATURATION 21 % (15-50); IRON 37 ug/dL (50-175); TOTAL IRON BINDING CAPACITY 178 ug/dL (250-450)
--- NOTE | 2019-09-11 10:54 | Pulmonolgy Critical Care Note ---
Critical Care - Asmt/Plan Problems: (1) Acute respiratory failure (2) Cardiopulmonary arrest (3) Cardiac LV ejection fraction 40% (4) Nosocomial pneumonia (5) Atrial fibrillation (6) Pulmonary edema (7) COPD (chronic obstructive pulmonary disease) (8) CAD (coronary artery disease) (9) Dementia with behavioral disturbance Respiratory: monitor respiratory rate, adjust FIO2, CXR Cardiac: continue pressors, stop pressors, continue to monitor HR/BP Renal: F/U I&O Infectious Disease: check cultures, continue antibiotics Gastrointestinal: continue feedings/current rate Endocrine: monitor blood sugar Hematologic: monitor H/H, transfuse if hgb<8.5 Neurologic: PRN Ativan, keep patient comfortable Notes Reviewed: cardio, renal Discussed with: nurses, consultants, 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 - Objective Last 24 Hour Vital Signs Date Time Temp Pulse Resp B/P (MAP) Pulse Ox O2 Delivery O2 Flow Rate FiO2 09/11/19 09:07 79 19 99 Mechanical Ventilator 30 78 19 30 09/11/19 09:00 76 17 138/57 (84) 99 09/11/19 08:00 30 09/11/19 08:00 Mechanical Ventilator Mechanical Ventilator 09/11/19 08:00 97.7 73 15 139/60 (86) 96 09/11/19 07:30 80 21 30 09/11/19 07:00 76 18 141/59 (86) 96 09/11/19 06:00 74 18 148/63 (91) 97 09/11/19 05:00 74 18 148/63 (91) 97 09/11/19 04:53 73 15 30 09/11/19 04:00 30 09/11/19 04:00 Mechanical Ventilator Mechanical Ventilator 09/11/19 04:00 75 17 138/59 (85) 94 09/11/19 04:00 76 09/11/19 03:00 74 12 150/62 (91) 99 09/11/19 02:57 75 17 30 09/11/19 02:00 74 17 140/68 (92) 95 09/11/19 01:00 74 17 148/68 (94) 95 09/11/19 01:00 74 20 30 09/11/19 00:00 98.0 75 17 137/70 (92) 94 09/11/19 00:00 Mechanical Ventilator Mechanical Ventilator 09/11/19 00:00 73 09/11/19 00:00 30 09/10/19 23:00 74 18 139/65 (89) 94 09/10/19 22:46 74 18 30 09/10/19 22:00 75 17 152/70 (97) 96 09/10/19 21:55 73 16 100 Mechanical Ventilator 30 09/10/19 21:40 74 16 Mechanical Ventilator 30 30 09/10/19 21:00 74 17 154/68 (96) 92 09/10/19 20:00 70 14 153/65 (94) 96 09/10/19 20:00 71 09/10/19 20:00 30 09/10/19 20:00 Mechanical Ventilator Mechanical Ventilator 09/10/19 19:20 79 16 30 09/10/19 19:00 71 15 143/67 (92) 94 09/10/19 18:00 75 16 145/90 (108) 95 09/10/19 17:55 65 20 30 09/10/19 17:00 67 14 140/64 (89) 94 09/10/19 16:16 67 19 30 09/10/19 16:00 30 09/10/19 16:00 Mechanical Ventilator Mechanical Ventilator 09/10/19 16:00 97.5 76 14 151/76 (101) 93 09/10/19 16:00 74 09/10/19 15:00 80 15 158/68 (98) 92 09/10/19 14:44 70 20 98 09/10/19 14:40 80 14 120/66 (84) 94 09/10/19 13:00 66 14 117/46 (69) 94 09/10/19 12:00 70 09/10/19 12:00 Mechanical Ventilator Mechanical Ventilator 09/10/19 12:00 30 09/10/19 12:00 97.6 68 13 124/64 (84) 95 09/10/19 11:00 62 13 102/50 (67) 99 09/10/19 10:51 67 19 98 Mechanical Ventilator 30 68 15 30 Status: awake Condition: critical HEENT: atraumatic, normocephalic Lungs: rales, rhonchi Heart: HR/BP stable Abdomen: soft, feeding tube Extremities: no C/C/E Accucheck: 150 Critical Care - Subjective ROS Limited/Unobtainable: Yes EKG Rhythm: Sinus Rhythm FI02: 30 Vent Support Breath Rate: 14 Vent Support Mode: AC Vent Tidal Volume: 500 Sputum Amount: Moderate PEEP: 5.0 PIP: 21 Tube Feeding Amount: 40 I&O: Intake and Output 09/10/19 09/11/19 19:00 07:00 Intake Total 350 ml 370 ml Output Total 410 ml 250 ml Balance -60 ml 120 ml Free Water 30 ml IV Total 100 ml Tube Feeding 50 ml 340 ml Other 200 ml Output Urine Total 410 ml 250 ml # Bowel Movements 1 3 CXR: trach in place ET-Tube: 7.5 ET Position: 24 Labs: Laboratory Tests Test 09/11/19 03:45 09/11/19 08:45 White Blood Count 6.4 K/UL (4.8-10.8) Red Blood Count 3.27 M/UL (4.70-6.10) L Hemoglobin 10.1 G/DL (14.2-18.0) L Hematocrit 29.8 % (42.0-52.0) L Mean Corpuscular Volume 91 FL (80-99) Mean Corpuscular Hemoglobin 30.9 PG (27.0-31.0) Mean Corpuscular Hemoglobin Concent 33.9 G/DL (32.0-36.0) Red Cell Distribution Width 13.5 % (11.6-14.8) Platelet Count 250 K/UL (150-450) Mean Platelet Volume 5.2 FL (6.5-10.1) L Neutrophils (%) (Auto) 67.4 % (45.0-75.0) Lymphocytes (%) (Auto) 20.0 % (20.0-45.0) Monocytes (%) (Auto) 7.5 % (1.0-10.0) Eosinophils (%) (Auto) 4.4 % (0.0-3.0) H Basophils (%) (Auto) 0.8 % (0.0-2.0) Sodium Level 141 MMOL/L (136-145) Potassium Level 3.9 MMOL/L (3.5-5.1) Chloride Level 105 MMOL/L (98-107) Carbon Dioxide Level 27 MMOL/L (21-32) Anion Gap 9 mmol/L (5-15) Blood Urea Nitrogen 35 mg/dL (7-18) H Creatinine 0.6 MG/DL (0.55-1.30) Estimat Glomerular Filtration Rate > 60 mL/min (>60) Glucose Level 108 MG/DL (74-106) H Calcium Level 8.5 MG/DL (8.5-10.1) Phosphorus Level 3.7 MG/DL (2.5-4.9) Magnesium Level 2.1 MG/DL (1.8-2.4) Iron Level Pending Unsaturated Iron Binding Pending Ferritin Pending Total Bilirubin 0.6 MG/DL (0.2-1.0) Aspartate Amino Transf (AST/SGOT) 34 U/L (15-37) Alanine Aminotransferase (ALT/SGPT) 49 U/L (12-78) Alkaline Phosphatase 82 U/L (46-116) Total Protein 5.2 G/DL (6.4-8.2) L Albumin 2.1 G/DL (3.4-5.0) L Globulin 3.1 g/dL Albumin/Globulin Ratio 0.7 (1.0-2.7) L Arterial Blood pH 7.427 (7.350-7.450) Arterial Blood Partial Pressure CO2 43.8 mmHg (35.0-45.0) Arterial Blood Partial Pressure O2 82.1 mmHg (75.0-100.0) Arterial Blood HCO3 28.2 mmol/L (22.0-26.0) H Arterial Blood Oxygen Saturation 95.6 % (95-100) Arterial Blood Base Excess 3.4 (-2-2) H Joe Test Positive Nicole Graves MD Sep 11, 2019 10:54
[2019-09-11 11:07] LABS: FERRITIN 922 NG/ML (8-388)
--- NOTE | 2019-09-11 13:05 | Nephrology Progress Note ---
Assessment/Plan Problem List: (1) AUREA (acute kidney injury) Assessment: Serum creatinine rising (2) Cardiopulmonary arrest (3) Respiratory failure (4) Cardiomyopathy (5) Obesity (BMI 30.0-34.9) (6) DMII (diabetes mellitus, type 2) Assessment Acute Renal Failure : AUREA Most likely due to cardiorespiratory arrest and episode of hypotension. Patient also has cardiomyopathy with Ej Fx of 40 % on admission Obese : BMI 34.4 ? DM Other Dx (1) Cardiopulmonary arrest (2) Nosocomial pneumonia (3) Acute respiratory failure (4) COPD (chronic obstructive pulmonary disease) (5) Atrial fibrillation (6) Dementia with behavioral disturbance (7) CAD (coronary artery disease) Plan Had tracheostomy September 09 Today's labs reviewed D5 W IV fluids for hypernatremia as needed pressors are off now patient's condition somewhat more stable In ICU He is intubated ventilator, weaning is being tried His blood pressure is more stable Overall he is still doing poorly Adjust blood pressure medications Stress dose of steroids which we will start tapering today Previously Monitor renal parameters. Serum creatinine improved Monitor urine output. Urine output improved. Avoid nephrotoxics. Weaning as possible. Remains intubated at this time. Correct electrolyte imbalances. Change tube feeding to Glucerna. Subjective ROS Limited/Unobtainable: Yes Objective Objective Last 24 Hour Vital Signs Date Time Temp Pulse Resp B/P (MAP) Pulse Ox O2 Delivery O2 Flow Rate FiO2 09/11/19 12:54 78 20 30 09/11/19 12:00 78 09/11/19 12:00 Mechanical Ventilator Mechanical Ventilator 09/11/19 12:00 30 09/11/19 12:00 97.5 79 19 144/57 (86) 96 09/11/19 11:09 79 21 30 09/11/19 11:00 75 17 140/63 (88) 97 09/11/19 10:00 79 18 143/63 (89) 95 09/11/19 09:07 79 19 99 Mechanical Ventilator 30 78 19 30 09/11/19 09:00 76 17 138/57 (84) 99 09/11/19 08:00 30 09/11/19 08:00 Mechanical Ventilator Mechanical Ventilator 09/11/19 08:00 97.7 73 15 139/60 (86) 96 09/11/19 08:00 78 09/11/19 07:30 80 21 30 09/11/19 07:00 76 18 141/59 (86) 96 09/11/19 06:00 74 18 148/63 (91) 97 09/11/19 05:00 74 18 148/63 (91) 97 09/11/19 04:53 73 15 30 09/11/19 04:00 30 09/11/19 04:00 Mechanical Ventilator Mechanical Ventilator 09/11/19 04:00 75 17 138/59 (85) 94 09/11/19 04:00 76 09/11/19 03:00 74 12 150/62 (91) 99 09/11/19 02:57 75 17 30 09/11/19 02:00 74 17 140/68 (92) 95 09/11/19 01:00 74 17 148/68 (94) 95 09/11/19 01:00 74 20 30 09/11/19 00:00 98.0 75 17 137/70 (92) 94 09/11/19 00:00 Mechanical Ventilator Mechanical Ventilator 09/11/19 00:00 73 09/11/19 00:00 30 09/10/19 23:00 74 18 139/65 (89) 94 09/10/19 22:46 74 18 30 09/10/19 22:00 75 17 152/70 (97) 96 09/10/19 21:55 73 16 100 Mechanical Ventilator 30 09/10/19 21:40 74 16 Mechanical Ventilator 30 30 09/10/19 21:00 74 17 154/68 (96) 92 09/10/19 20:00 70 14 153/65 (94) 96 09/10/19 20:00 71 09/10/19 20:00 30 09/10/19 20:00 Mechanical Ventilator Mechanical Ventilator 09/10/19 19:20 79 16 30 09/10/19 19:00 71 15 143/67 (92) 94 09/10/19 18:00 75 16 145/90 (108) 95 09/10/19 17:55 65 20 30 09/10/19 17:00 67 14 140/64 (89) 94 09/10/19 16:16 67 19 30 09/10/19 16:00 30 09/10/19 16:00 Mechanical Ventilator Mechanical Ventilator 09/10/19 16:00 97.5 76 14 151/76 (101) 93 09/10/19 16:00 74 09/10/19 15:00 80 15 158/68 (98) 92 09/10/19 14:44 70 20 98 09/10/19 14:40 80 14 120/66 (84) 94 Intake and Output 09/10/19 09/11/19 19:00 07:00 Intake Total 350 ml 370 ml Output Total 410 ml 250 ml Balance -60 ml 120 ml Free Water 30 ml IV Total 100 ml Tube Feeding 50 ml 340 ml Other 200 ml Output Urine Total 410 ml 250 ml # Bowel Movements 1 3 Current Medications Medications (Trade) Dose Ordered Sig/Amaris Route PRN Reason Start Time Stop Time Status Last Admin Dose Admin Acetaminophen (Tylenol) 650 mg Q4H PRN NG Mild Pain/Temp > 100.5 09/01/19 10:20 10/01/19 10:19 Amiodarone HCl (Cordarone) 200 mg DAILY NG 09/01/19 10:22 11/30/19 10:21 09/11/19 08:43 Atorvastatin Calcium (Lipitor) 40 mg BEDTIME NG 09/01/19 21:00 09/13/19 20:59 09/10/19 20:24 Chlorhexidine Gluconate (Kamila-Hex 2%) 1 applic DAILY@1999 TOPIC 09/01/19 20:00 09/17/19 19:59 09/10/19 20:23 Clopidogrel Bisulfate (Plavix) 75 mg DAILY NG 09/01/19 10:22 10/01/19 10:21 09/10/19 09:08 Colistimethate Sodium (Colistin *inhalation use only*) 75 mg Q12HR@ INH 09/10/19 10:00 09/17/19 09:59 09/11/19 09:11 Heparin Sodium (Porcine) (Heparin 5000 units/ml) 5,000 units EVERY 12 HOURS SUBQ 09/01/19 10:23 10/16/19 10:22 09/09/19 21:20 Hydralazine HCl (Apresoline) 25 mg Q6HR PRN NG SBP above 160 09/02/19 01:45 12/01/19 01:44 Pantoprazole (Protonix) 40 mg EVERY 12 HOURS IVP 09/01/19 10:23 10/01/19 10:22 09/11/19 08:43 Trimethoprim/ Sulfamethoxazole (Bactrim-DS) 1 tab TWICE A DAY ORAL 09/10/19 10:00 09/17/19 09:59 09/11/19 08:43 Laboratory Tests 09/11/19 03:45: White Blood Count 6.4, Red Blood Count 3.27L, Hemoglobin 10.1L, Hematocrit 29.8L , Mean Corpuscular Volume 91, Mean Corpuscular Hemoglobin 30.9, Mean Corpuscular Hemoglobin Concent 33.9, Red Cell Distribution Width 13.5, Platelet Count 250, Mean Platelet Volume 5.2L, Neutrophils (%) (Auto) 67.4, Lymphocytes ( %) (Auto) 20.0, Monocytes (%) (Auto) 7.5, Eosinophils (%) (Auto) 4.4H, Basophils (%) (Auto) 0.8, Sodium Level 141, Potassium Level 3.9, Chloride Level 105, Carbon Dioxide Level 27, Anion Gap 9, Blood Urea Nitrogen 35H, Creatinine 0.6, Estimat Glomerular Filtration Rate > 60, Glucose Level 108H, Calcium Level 8.5, Phosphorus Level 3.7, Magnesium Level 2.1, Iron Level 37L, Total Iron Binding Capacity 178L, Percent Iron Saturation 21, Unsaturated Iron Binding 141 , Ferritin 922H, Total Bilirubin 0.6, Aspartate Amino Transf (AST/SGOT) 34, Alanine Aminotransferase (ALT/SGPT) 49, Alkaline Phosphatase 82, Total Protein 5.2L, Albumin 2.1L, Globulin 3.1, Albumin/Globulin Ratio 0.7L 09/11/19 08:45: Arterial Blood pH 7.427, Arterial Blood Partial Pressure CO2 43.8, Arterial Blood Partial Pressure O2 82.1, Arterial Blood HCO3 28.2H, Arterial Blood Oxygen Saturation 95.6, Arterial Blood Base Excess 3.4H, Joe Test Positive Height (Feet): 5 Height (Inches): 5.00 Weight (Pounds): 190 General Appearance: no apparent distress EENT: other - Trached yesterday Cardiovascular: normal rate Respiratory/Chest: decreased breath sounds Abdomen: soft Objective no change Yunior Sexton MD Sep 11, 2019 13:05
--- NOTE | 2019-09-11 14:53 | Surgery Progress Note ---
Surgery Progress Note Subjective Procedure Performed Tracheostomy Symptoms: improved Additional Comments tolerating tf more awake more comfortable trach stable Objective Last 24 Hour Vital Signs Date Time Temp Pulse Resp B/P (MAP) Pulse Ox O2 Delivery O2 Flow Rate FiO2 09/11/19 14:00 78 20 131/54 (79) 95 09/11/19 13:00 77 20 146/60 (88) 97 09/11/19 12:54 78 20 30 09/11/19 12:00 78 09/11/19 12:00 Mechanical Ventilator Mechanical Ventilator 09/11/19 12:00 30 09/11/19 12:00 97.5 79 19 144/57 (86) 96 09/11/19 11:09 79 21 30 09/11/19 11:00 75 17 140/63 (88) 97 09/11/19 10:00 79 18 143/63 (89) 95 09/11/19 09:07 79 19 99 Mechanical Ventilator 30 78 19 30 09/11/19 09:00 76 17 138/57 (84) 99 09/11/19 08:00 30 09/11/19 08:00 Mechanical Ventilator Mechanical Ventilator 09/11/19 08:00 97.7 73 15 139/60 (86) 96 09/11/19 08:00 78 09/11/19 07:30 80 21 30 09/11/19 07:00 76 18 141/59 (86) 96 09/11/19 06:00 74 18 148/63 (91) 97 09/11/19 05:00 74 18 148/63 (91) 97 09/11/19 04:53 73 15 30 09/11/19 04:00 30 09/11/19 04:00 Mechanical Ventilator Mechanical Ventilator 09/11/19 04:00 75 17 138/59 (85) 94 09/11/19 04:00 76 09/11/19 03:00 74 12 150/62 (91) 99 09/11/19 02:57 75 17 30 09/11/19 02:00 74 17 140/68 (92) 95 09/11/19 01:00 74 17 148/68 (94) 95 09/11/19 01:00 74 20 30 09/11/19 00:00 98.0 75 17 137/70 (92) 94 09/11/19 00:00 Mechanical Ventilator Mechanical Ventilator 09/11/19 00:00 73 09/11/19 00:00 30 09/10/19 23:00 74 18 139/65 (89) 94 09/10/19 22:46 74 18 30 09/10/19 22:00 75 17 152/70 (97) 96 09/10/19 21:55 73 16 100 Mechanical Ventilator 30 09/10/19 21:40 74 16 Mechanical Ventilator 30 30 09/10/19 21:00 74 17 154/68 (96) 92 09/10/19 20:00 70 14 153/65 (94) 96 09/10/19 20:00 71 09/10/19 20:00 30 09/10/19 20:00 Mechanical Ventilator Mechanical Ventilator 09/10/19 19:20 79 16 30 09/10/19 19:00 71 15 143/67 (92) 94 09/10/19 18:00 75 16 145/90 (108) 95 09/10/19 17:55 65 20 30 09/10/19 17:00 67 14 140/64 (89) 94 09/10/19 16:16 67 19 30 09/10/19 16:00 30 09/10/19 16:00 Mechanical Ventilator Mechanical Ventilator 09/10/19 16:00 97.5 76 14 151/76 (101) 93 09/10/19 16:00 74 09/10/19 15:00 80 15 158/68 (98) 92 I&O Intake and Output 09/10/19 09/11/19 19:00 07:00 Intake Total 350 ml 370 ml Output Total 410 ml 250 ml Balance -60 ml 120 ml Free Water 30 ml IV Total 100 ml Tube Feeding 50 ml 340 ml Other 200 ml Output Urine Total 410 ml 250 ml # Bowel Movements 1 3 Dressing: dry Wound: clean Cardiovascular: RSR Respiratory: decreased breath sounds Abdomen: soft, non-tender, present bowel sounds Extremities: no tenderness, no cyanosis Laboratory Tests Test 09/11/19 03:45 09/11/19 08:45 White Blood Count 6.4 K/UL (4.8-10.8) Red Blood Count 3.27 M/UL (4.70-6.10) L Hemoglobin 10.1 G/DL (14.2-18.0) L Hematocrit 29.8 % (42.0-52.0) L Mean Corpuscular Volume 91 FL (80-99) Mean Corpuscular Hemoglobin 30.9 PG (27.0-31.0) Mean Corpuscular Hemoglobin Concent 33.9 G/DL (32.0-36.0) Red Cell Distribution Width 13.5 % (11.6-14.8) Platelet Count 250 K/UL (150-450) Mean Platelet Volume 5.2 FL (6.5-10.1) L Neutrophils (%) (Auto) 67.4 % (45.0-75.0) Lymphocytes (%) (Auto) 20.0 % (20.0-45.0) Monocytes (%) (Auto) 7.5 % (1.0-10.0) Eosinophils (%) (Auto) 4.4 % (0.0-3.0) H Basophils (%) (Auto) 0.8 % (0.0-2.0) Sodium Level 141 MMOL/L (136-145) Potassium Level 3.9 MMOL/L (3.5-5.1) Chloride Level 105 MMOL/L (98-107) Carbon Dioxide Level 27 MMOL/L (21-32) Anion Gap 9 mmol/L (5-15) Blood Urea Nitrogen 35 mg/dL (7-18) H Creatinine 0.6 MG/DL (0.55-1.30) Estimat Glomerular Filtration Rate > 60 mL/min (>60) Glucose Level 108 MG/DL (74-106) H Calcium Level 8.5 MG/DL (8.5-10.1) Phosphorus Level 3.7 MG/DL (2.5-4.9) Magnesium Level 2.1 MG/DL (1.8-2.4) Iron Level 37 ug/dL (50-175) L Total Iron Binding Capacity 178 ug/dL (250-450) L Percent Iron Saturation 21 % (15-50) Unsaturated Iron Binding 141 ug/dL (112-346) Ferritin 922 NG/ML (8-388) H Total Bilirubin 0.6 MG/DL (0.2-1.0) Aspartate Amino Transf (AST/SGOT) 34 U/L (15-37) Alanine Aminotransferase (ALT/SGPT) 49 U/L (12-78) Alkaline Phosphatase 82 U/L (46-116) Total Protein 5.2 G/DL (6.4-8.2) L Albumin 2.1 G/DL (3.4-5.0) L Globulin 3.1 g/dL Albumin/Globulin Ratio 0.7 (1.0-2.7) L Arterial Blood pH 7.427 (7.350-7.450) Arterial Blood Partial Pressure CO2 43.8 mmHg (35.0-45.0) Arterial Blood Partial Pressure O2 82.1 mmHg (75.0-100.0) Arterial Blood HCO3 28.2 mmol/L (22.0-26.0) H Arterial Blood Oxygen Saturation 95.6 % (95-100) Arterial Blood Base Excess 3.4 (-2-2) H Joe Test Positive Plan Problems: (1) Nosocomial pneumonia (2) AUREA (acute kidney injury) (3) Cardiomyopathy (4) Obesity (BMI 30.0-34.9) (5) DMII (diabetes mellitus, type 2) (6) Cardiac LV ejection fraction 40% (7) Pulmonary edema (8) Cardiopulmonary arrest Assessment & Plan: Cardiopulmonary arrest septic requiring urgent emergency line placement for pressors and fluids and meds Please see procedure report Full examination performed no other surgical issues found at this time etiology unknown likely surgical in nature Antibiotics fluids Pressors Vent weaning trials right groin site okay. no hematoma. no bleeding left arm picc okay NG tube is present in good position. A partial left lateral decubitus view of the abdomen performed as well as a supine view. The left lateral decubitus view is not adequate as the area of interest which would be the nondependent right side of the abdomen, which is the area of interest was not imaged and is beyond the field-of -view of the x-ray. Bowel gas pattern appears nonobstructive on the basis of the partial images obtained. off pressors labs reviewed cont tube feeds Unable to wean from ventilator. Labs noted ABG noted imaging reviewed cont weaning. if possible extubate otherwise will consider trach extubated improving monitor in ICU for now downgrade re-intubated on vent support on pressors wean pressors will monitor * Interval removal of endotracheal tube. NG tube and left arm PICC line remain in place. * Apparent worsening of aeration with increasing hazy opacities in the bilateral lower lungs which may in part be related to artifact from patient positioning however layering bilateral pleural effusions and bilateral airspace disease not excluded. Follow-up recommended. trach today does not seem to be able to wean s/p trach labs noted exam stable looks more comfortable now downgrade (9) Respiratory failure (10) History of hypertension (11) COPD (chronic obstructive pulmonary disease) (12) CAD (coronary artery disease) (13) Atrial fibrillation (14) Dementia with behavioral disturbance (15) Upper respiratory infection (16) Acute respiratory failure (17) Dyspnea (18) UTI (urinary tract infection) Prosper Hummel Sep 11, 2019 14:53
[2019-09-11] MEDS ORDERED: Acetaminophen 650mg/20.3ml NG PRN (17:00)
[2019-09-11] MEDS: Atorvastatin 20mg tab NG SCH (20:54)
[2019-09-11] MEDS: Dyna-Hex 2% Top Sol 2oz TOPIC SCH (20:54)
[2019-09-12] VITALS: BP 138/58
--- NOTE | 2019-09-12 01:00 | Progress Note ---
DATE: 09/11/2019 SUBJECTIVE: The patient is status post tracheostomy, no complications noted, ongoing ventilator support. PHYSICAL EXAMINATION: VITAL SIGNS: Blood pressure 144/57, pulse 79, respiratory rate 19. HEART: sinus rhythm with bundle-branch block and episodes of atrial fibrillation. LUNGS: Bilateral breath sounds, rhonchi. Trach site with no bleeding. CARDIAC: Regular rhythm and rate. Normal S1, paradoxically split S2. ABDOMEN: Soft. EXTREMITIES: No edema. LABORATORY AND DIAGNOSTIC DATA: White count is 6.4, hemoglobin 10. ABG ,7.42, 43, 81. Sodium 141, potassium 3.9, bicarb 27, BUN 35, creatinine 0.6. IMPRESSION: 1. Respiratory failure, status post trach. 2. Acute myocardial infarction. 3. Ischemic cardiomyopathy. 4. Acute on chronic systolic and diastolic congestive heart failure. 5. Severe protein-calorie malnutrition. 6. Status post cardiopulmonary arrest x2. PLAN: 1. Ventilator support with weaning efforts. 2. Continue amiodarone. 3. Monitor electrolytes. 4. Monitor volume status. 5. Diuresis based on clinical parameters. 6. Reassess anti-failure regimen. 7. No plans for anticoagulation due to bleeding risk. Saeed Sim M.D. DR: Bruno JOB#: [id number] CC:
[2019-09-12 04:00] VITALS: BP 141/70
--- NOTE | 2019-09-12 07:41 | Infectious Diseases Prog Note ---
Assessment/Plan Assessment/Plan ASSESSMENT: The patient is a 79-year-old male with: Multiple reintubations, likely cannot maintain airway now SP trach Low grade temp, SP No leukocytosis Developing PNA on rx 08/31 CXR: There is a hazy opacity at the left lung base again noted unchanged. Mild linear densities are seen in the right midlung which may be atelectasis or scarring. 09/02 CXR: Hazy basilar opacities, most likely due to overlying soft tissue shadows but hazy infiltrates also possible. If the latter, stable on the left, new or increased on the right. 09/04: Suspected pneumonia at the left lung base 09/05 CXR: Bilateral lower lobe infiltrates/atelectasis, similar to prior. 09/08 CXR: Hazy left greater than right basilar opacity and borderline interstitial congestive changes persist. Leukocytosis; Sp Fever , sp Sepsis, Sp Pneumonia (probable asp), Sp RX -08/28 CXR: Interval removal of endotracheal tube. NG tube and left arm PICC line remain in place. Apparent worsening of aeration with increasing hazy opacities in the bilateral lower lungs which may in part be related to artifact from patient positioning however layering bilateral pleural effusions and bilateral airspace disease not excluded. -08/13 Scx: MDR-ACB (Tygacil LANI: 4) - CXR: 1. Streaky opacities in the right lower lung may represent atelectasis versus scarring. Left basilar opacity may represent atelectasis. Component of pneumonia is not excluded. Pulmonary vasculature congestion. -08/01 ucx NTD -sp cx: nl anastacio Urinary tract infection, SP Rx 08/31 SP rapid response and reintubation 08/17 Sp code blue and intubation , extubated 08/27 07/31 Sp Code blue and intubation , sp extubation 08/12 , Hyperlipidemia. COPD. History of GERD. History of encephalopathy. History of CAD/ND. History of cardiomyopathy. Hypertension. PLAN: INH colistin and bactrim #08/08-10 09/09 SP colistin IV #6 -08/28 SP Colistin INH (MDR-ACB) # 14 - 08/22/19 SP Merrem 10 - 08/14 SP IV Vanco # 4 -08/07 SP Zosyn and IV Vanco # / , -08/01 SP Rocephin day # 07/31 sp sp Dox # 6 Monitor CBC. Monitor BMP. monitor temp and VS Monitor chest x-ray cont ICU Support DW RN Subjective Allergies: Coded Allergies: No Known Allergies (Unverified , 06/03/17) Subjective Afebrile. FiO2 30% Objective Vital Signs Last 24 Hour Vital Signs Date Time Temp Pulse Resp B/P (MAP) Pulse Ox O2 Delivery O2 Flow Rate FiO2 09/12/19 05:07 71 16 30 09/12/19 04:00 30 09/12/19 04:00 Mechanical Ventilator Mechanical Ventilator 09/12/19 04:00 97.9 76 18 141/70 (93) 94 09/12/19 03:32 79 09/12/19 02:57 75 18 30 09/12/19 01:12 74 17 30 09/12/19 00:00 Mechanical Ventilator Mechanical Ventilator 09/12/19 00:00 98.3 77 18 138/58 (84) 95 09/11/19 23:49 79 09/11/19 23:25 76 17 30 09/11/19 22:11 71 14 99 Mechanical Ventilator 30 09/11/19 21:56 75 17 Mechanical Ventilator 30 30 09/11/19 20:00 Mechanical Ventilator Mechanical Ventilator 09/11/19 20:00 30 09/11/19 19:51 98.8 80 21 153/70 (97) 94 09/11/19 19:29 77 09/11/19 19:05 78 19 30 09/11/19 17:11 79 18 30 09/11/19 17:00 98.8 80 21 153/70 (97) 94 09/11/19 16:00 80 09/11/19 16:00 98.8 76 21 126/55 (78) 93 09/11/19 16:00 Mechanical Ventilator Mechanical Ventilator 09/11/19 16:00 30 09/11/19 15:00 77 20 143/58 (86) 97 09/11/19 14:57 77 19 30 09/11/19 14:00 78 20 131/54 (79) 95 09/11/19 13:00 77 20 146/60 (88) 97 09/11/19 12:54 78 20 30 09/11/19 12:00 78 09/11/19 12:00 Mechanical Ventilator Mechanical Ventilator 09/11/19 12:00 30 09/11/19 12:00 97.5 79 19 144/57 (86) 96 09/11/19 11:09 79 21 30 09/11/19 11:00 75 17 140/63 (88) 97 09/11/19 10:00 79 18 143/63 (89) 95 09/11/19 09:07 79 19 99 Mechanical Ventilator 30 78 19 30 09/11/19 09:00 76 17 138/57 (84) 99 09/11/19 08:00 30 09/11/19 08:00 Mechanical Ventilator Mechanical Ventilator 09/11/19 08:00 97.7 73 15 139/60 (86) 96 09/11/19 08:00 78 Height (Feet): 5 Height (Inches): 5.00 Weight (Pounds): 193 Objective Gen: NAD. calm. comfortable HEENT: ETT CV: RRR. no rubs Resp: RRR. equal chest rise. no wheezes. Abd: nondistended. no palpable masses Laboratory Tests Test 09/11/19 08:45 Arterial Blood pH 7.427 (7.350-7.450) Arterial Blood Partial Pressure CO2 43.8 mmHg (35.0-45.0) Arterial Blood Partial Pressure O2 82.1 mmHg (75.0-100.0) Arterial Blood HCO3 28.2 mmol/L (22.0-26.0) H Arterial Blood Oxygen Saturation 95.6 % (95-100) Arterial Blood Base Excess 3.4 (-2-2) H Joe Test Positive Current Medications Medications (Trade) Dose Ordered Sig/Amaris Route PRN Reason Start Time Stop Time Status Last Admin Dose Admin Acetaminophen (Tylenol) 650 mg Q4H PRN NG MILD PAIN/T>100.4 09/11/19 17:00 10/01/19 16:59 Amiodarone HCl (Cordarone) 200 mg DAILY NG 09/12/19 09:00 11/30/19 10:21 Atorvastatin Calcium (Lipitor) 40 mg BEDTIME NG 09/11/19 21:00 09/13/19 20:59 09/11/19 20:54 Chlorhexidine Gluconate (Kamila-Hex 2%) 1 applic DAILY@2000 TOPIC 09/11/19 20:00 09/17/19 19:59 09/11/19 20:54 Clopidogrel Bisulfate (Plavix) 75 mg DAILY NG 09/12/19 09:00 10/01/19 10:21 Colistimethate Sodium (Colistin *inhalation use only*) 75 mg Q12HR@, INH 09/11/19 22:00 09/17/19 09:59 09/11/19 21:56 Heparin Sodium (Porcine) (Heparin 5000 units/ml) 5,000 units EVERY 12 HOURS SUBQ 09/11/19 21:00 10/16/19 10:22 09/11/19 20:55 Hydralazine HCl (Apresoline) 25 mg Q6H PRN NG SBP above 160 09/11/19 18:00 12/10/19 17:59 Pantoprazole (Protonix) 40 mg EVERY 12 HOURS IVP 09/11/19 21:00 10/01/19 10:22 09/11/19 20:54 Trimethoprim/ Sulfamethoxazole (Bactrim-DS) 1 tab TWICE A DAY ORAL 09/11/19 18:00 09/17/19 09:59 09/11/19 17:48 Rafy Page MD Sep 12, 2019 07:41
[2019-09-12 08:00] VITALS: BP 145/64
[2019-09-12] MEDS: Pantoprazole Inj IVP SCH ×2 (08:38→23:44)
[2019-09-12] MEDS: Heparin 5000 units/ml inj SUBQ SCH ×2 (08:40→23:47)
[2019-09-12] MEDS: Bactrim-DS 1 tab ORAL SCH ×2 (08:40→17:48)
[2019-09-12] MEDS: Amiodarone 200mg tab NG SCH (08:41)
[2019-09-12] MEDS: Colistin for inhalation INH SCH ×2 (09:44→21:35)
[2019-09-12 11:37] VITALS: BP 151/77
--- NOTE | 2019-09-12 12:04 | Nephrology Progress Note ---
Assessment/Plan Problem List: (1) AUREA (acute kidney injury) Assessment: Serum creatinine rising (2) Cardiopulmonary arrest (3) Respiratory failure (4) Cardiomyopathy (5) Obesity (BMI 30.0-34.9) (6) DMII (diabetes mellitus, type 2) Assessment Acute Renal Failure : AUREA Most likely due to cardiorespiratory arrest and episode of hypotension. Patient also has cardiomyopathy with Ej Fx of 40 % on admission Obese : BMI 34.4 ? DM Other Dx (1) Cardiopulmonary arrest (2) Nosocomial pneumonia (3) Acute respiratory failure (4) COPD (chronic obstructive pulmonary disease) (5) Atrial fibrillation (6) Dementia with behavioral disturbance (7) CAD (coronary artery disease) Plan Had tracheostomy September 09 Today's labs reviewed D5 W IV fluids for hypernatremia as needed pressors are off now patient's condition somewhat more stable In ICU He is intubated ventilator, weaning is being tried His blood pressure is more stable Overall he is still doing poorly Adjust blood pressure medications Stress dose of steroids which we will start tapering today Previously Monitor renal parameters. Serum creatinine improved Monitor urine output. Urine output improved. Avoid nephrotoxics. Weaning as possible. Remains intubated at this time. Correct electrolyte imbalances. Change tube feeding to Glucerna. Subjective ROS Limited/Unobtainable: Yes Objective Objective Last 24 Hour Vital Signs Date Time Temp Pulse Resp B/P (MAP) Pulse Ox O2 Delivery O2 Flow Rate FiO2 09/12/19 11:37 98.4 78 19 151/77 (101) 96 09/12/19 10:54 75 20 30 09/12/19 09:46 72 14 99 Mechanical Ventilator 30 71 14 30 09/12/19 08:24 77 18 30 09/12/19 08:00 Mechanical Ventilator Mechanical Ventilator 09/12/19 08:00 98.1 77 19 145/64 (91) 96 09/12/19 05:07 71 16 30 09/12/19 04:00 30 09/12/19 04:00 Mechanical Ventilator Mechanical Ventilator 09/12/19 04:00 97.9 76 18 141/70 (93) 94 09/12/19 03:32 79 09/12/19 02:57 75 18 30 09/12/19 01:12 74 17 30 09/12/19 00:00 Mechanical Ventilator Mechanical Ventilator 09/12/19 00:00 98.3 77 18 138/58 (84) 95 09/11/19 23:49 79 09/11/19 23:25 76 17 30 09/11/19 22:11 71 14 99 Mechanical Ventilator 30 09/11/19 21:56 75 17 Mechanical Ventilator 30 30 09/11/19 20:00 Mechanical Ventilator Mechanical Ventilator 09/11/19 20:00 30 09/11/19 19:51 98.8 80 21 153/70 (97) 94 09/11/19 19:29 77 09/11/19 19:05 78 19 30 09/11/19 17:11 79 18 30 09/11/19 17:00 98.8 80 21 153/70 (97) 94 09/11/19 16:00 80 09/11/19 16:00 98.8 76 21 126/55 (78) 93 09/11/19 16:00 Mechanical Ventilator Mechanical Ventilator 09/11/19 16:00 30 09/11/19 15:00 77 20 143/58 (86) 97 09/11/19 14:57 77 19 30 09/11/19 14:00 78 20 131/54 (79) 95 09/11/19 13:00 77 20 146/60 (88) 97 09/11/19 12:54 78 20 30 Intake and Output 09/11/19 09/12/19 19:00 07:00 Intake Total 560 ml 570 ml Output Total 475 ml 400 ml Balance 85 ml 170 ml Free Water 80 ml 90 ml Tube Feeding 480 ml 480 ml Output Urine Total 475 ml 400 ml No labs drawn today Height (Feet): 5 Height (Inches): 5.00 Weight (Pounds): 193 General Appearance: no apparent distress EENT: other - Trach and vent Cardiovascular: normal rate Respiratory/Chest: decreased breath sounds Abdomen: distended Objective no change Yunior Sexton MD Sep 12, 2019 12:04
--- NOTE | 2019-09-12 12:08 | Pulmonolgy Critical Care Note ---
Critical Care - Asmt/Plan Problems: (1) Acute respiratory failure (2) Cardiopulmonary arrest (3) Cardiac LV ejection fraction 40% (4) Nosocomial pneumonia (5) Atrial fibrillation (6) Pulmonary edema (7) COPD (chronic obstructive pulmonary disease) (8) CAD (coronary artery disease) (9) Dementia with behavioral disturbance Respiratory: monitor respiratory rate, adjust FIO2, CXR Cardiac: continue to monitor HR/BP Renal: F/U I&O, check electrolytes Infectious Disease: check cultures, continue antibiotics Gastrointestinal: continue feedings/current rate Endocrine: monitor blood sugar, check HgA1C Hematologic: transfuse if hgb<8.5 Neurologic: PRN Ativan, keep patient comfortable Prophylaxis: Protonix Time Spent (Minutes): 40 Notes Reviewed: stakeholder manager, 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, case mgrmanager pacu - Objective Last 24 Hour Vital Signs Date Time Temp Pulse Resp B/P (MAP) Pulse Ox O2 Delivery O2 Flow Rate FiO2 09/12/19 11:37 98.4 78 19 151/77 (101) 96 09/12/19 10:54 75 20 30 09/12/19 09:46 72 14 99 Mechanical Ventilator 30 71 14 30 09/12/19 08:24 77 18 30 09/12/19 08:00 Mechanical Ventilator Mechanical Ventilator 09/12/19 08:00 98.1 77 19 145/64 (91) 96 09/12/19 05:07 71 16 30 09/12/19 04:00 30 09/12/19 04:00 Mechanical Ventilator Mechanical Ventilator 09/12/19 04:00 97.9 76 18 141/70 (93) 94 09/12/19 03:32 79 09/12/19 02:57 75 18 30 09/12/19 01:12 74 17 30 09/12/19 00:00 Mechanical Ventilator Mechanical Ventilator 09/12/19 00:00 98.3 77 18 138/58 (84) 95 09/11/19 23:49 79 09/11/19 23:25 76 17 30 09/11/19 22:11 71 14 99 Mechanical Ventilator 30 09/11/19 21:56 75 17 Mechanical Ventilator 30 30 09/11/19 20:00 Mechanical Ventilator Mechanical Ventilator 09/11/19 20:00 30 09/11/19 19:51 98.8 80 21 153/70 (97) 94 09/11/19 19:29 77 09/11/19 19:05 78 19 30 09/11/19 17:11 79 18 30 09/11/19 17:00 98.8 80 21 153/70 (97) 94 09/11/19 16:00 80 09/11/19 16:00 98.8 76 21 126/55 (78) 93 09/11/19 16:00 Mechanical Ventilator Mechanical Ventilator 09/11/19 16:00 30 09/11/19 15:00 77 20 143/58 (86) 97 09/11/19 14:57 77 19 30 09/11/19 14:00 78 20 131/54 (79) 95 09/11/19 13:00 77 20 146/60 (88) 97 09/11/19 12:54 78 20 30 Status: awake Neck: trach Lungs: rales, rhonchi Heart: HR/BP stable Abdomen: soft, non-tender Decubiti: location Accucheck: 150 Critical Care - Subjective FI02: 30 Vent Support Breath Rate: 14 Vent Support Mode: AC Vent Tidal Volume: 500 Sputum Amount: Small PEEP: 5.0 PIP: 28 Tube Feeding Amount: 40 I&O: Intake and Output 09/11/19 09/12/19 19:00 07:00 Intake Total 560 ml 570 ml Output Total 475 ml 400 ml Balance 85 ml 170 ml Free Water 80 ml 90 ml Tube Feeding 480 ml 480 ml Output Urine Total 475 ml 400 ml ET-Tube: 7.5 ET Position: 24 Nicole Graves MD Sep 12, 2019 12:08
[2019-09-12 15:54] VITALS: BP 159/71
--- NOTE | 2019-09-12 16:10 | Surgery Progress Note ---
Surgery Progress Note Subjective Procedure Performed Tracheostomy Additional Comments no acute events exam stable comfortable Objective Last 24 Hour Vital Signs Date Time Temp Pulse Resp B/P (MAP) Pulse Ox O2 Delivery O2 Flow Rate FiO2 09/12/19 16:00 30 09/12/19 15:54 97.0 79 20 159/71 (100) 96 09/12/19 15:06 77 21 30 09/12/19 13:55 75 19 30 09/12/19 12:00 30 09/12/19 12:00 72 09/12/19 11:37 98.4 78 19 151/77 (101) 96 09/12/19 10:54 75 20 30 09/12/19 09:46 72 14 99 Mechanical Ventilator 30 71 14 30 09/12/19 08:24 77 18 30 09/12/19 08:00 76 09/12/19 08:00 Mechanical Ventilator Mechanical Ventilator 09/12/19 08:00 30 09/12/19 08:00 98.1 77 19 145/64 (91) 96 09/12/19 05:07 71 16 30 09/12/19 04:00 30 09/12/19 04:00 Mechanical Ventilator Mechanical Ventilator 09/12/19 04:00 97.9 76 18 141/70 (93) 94 09/12/19 03:32 79 09/12/19 02:57 75 18 30 09/12/19 01:12 74 17 30 09/12/19 00:00 Mechanical Ventilator Mechanical Ventilator 09/12/19 00:00 98.3 77 18 138/58 (84) 95 09/11/19 23:49 79 09/11/19 23:25 76 17 30 09/11/19 22:11 71 14 99 Mechanical Ventilator 30 09/11/19 21:56 75 17 Mechanical Ventilator 30 30 09/11/19 20:00 Mechanical Ventilator Mechanical Ventilator 09/11/19 20:00 30 09/11/19 19:51 98.8 80 21 153/70 (97) 94 09/11/19 19:29 77 09/11/19 19:05 78 19 30 09/11/19 17:11 79 18 30 09/11/19 17:00 98.8 80 21 153/70 (97) 94 I&O Intake and Output 09/11/19 09/12/19 19:00 07:00 Intake Total 560 ml 570 ml Output Total 475 ml 400 ml Balance 85 ml 170 ml Free Water 80 ml 90 ml Tube Feeding 480 ml 480 ml Output Urine Total 475 ml 400 ml Dressing: dry Wound: clean Cardiovascular: RSR Respiratory: clear, decreased breath sounds Abdomen: soft, present bowel sounds Extremities: no cyanosis Plan Problems: (1) Nosocomial pneumonia (2) AUREA (acute kidney injury) (3) Cardiomyopathy (4) Obesity (BMI 30.0-34.9) (5) DMII (diabetes mellitus, type 2) (6) Cardiac LV ejection fraction 40% (7) Pulmonary edema (8) Cardiopulmonary arrest Assessment & Plan: Cardiopulmonary arrest septic requiring urgent emergency line placement for pressors and fluids and meds Please see procedure report Full examination performed no other surgical issues found at this time etiology unknown likely surgical in nature Antibiotics fluids Pressors Vent weaning trials right groin site okay. no hematoma. no bleeding left arm picc okay NG tube is present in good position. A partial left lateral decubitus view of the abdomen performed as well as a supine view. The left lateral decubitus view is not adequate as the area of interest which would be the nondependent right side of the abdomen, which is the area of interest was not imaged and is beyond the field-of -view of the x-ray. Bowel gas pattern appears nonobstructive on the basis of the partial images obtained. off pressors labs reviewed cont tube feeds Unable to wean from ventilator. Labs noted ABG noted imaging reviewed cont weaning. if possible extubate otherwise will consider trach extubated improving monitor in ICU for now downgrade re-intubated on vent support on pressors wean pressors will monitor * Interval removal of endotracheal tube. NG tube and left arm PICC line remain in place. * Apparent worsening of aeration with increasing hazy opacities in the bilateral lower lungs which may in part be related to artifact from patient positioning however layering bilateral pleural effusions and bilateral airspace disease not excluded. Follow-up recommended. trach today does not seem to be able to wean s/p trach labs noted exam stable looks more comfortable now downgrade (9) Respiratory failure (10) History of hypertension (11) COPD (chronic obstructive pulmonary disease) (12) CAD (coronary artery disease) (13) Atrial fibrillation (14) Dementia with behavioral disturbance (15) Upper respiratory infection (16) Acute respiratory failure (17) Dyspnea (18) UTI (urinary tract infection) Prosper Hummel Sep 12, 2019 16:10
[2019-09-12 20:00] VITALS: BP 146/62
[2019-09-12] MEDS: Dyna-Hex 2% Top Sol 2oz TOPIC SCH (23:44)
[2019-09-12] MEDS: Atorvastatin 20mg tab NG SCH (23:45)
[2019-09-12] MEDS: HydrALAZINE 25mg tab NG PRN (23:46)
[2019-09-13] VITALS: BP 138/78
--- NOTE | 2019-09-13 00:30 | Progress Note ---
DATE: 09/12/2019 CARDIOLOGY PROGRESS NOTE SUBJECTIVE: The patient is postop day 2 following tracheostomy. He remains on IV fluids. Blood pressure parameters stable off pressors. He continues to require ventilator support. OBJECTIVE: VITAL SIGNS: Afebrile, blood pressure 151/77, pulse 78, respirations 19 on 30% FiO2. LUNGS: Bilateral breath sounds. Rhonchi. Thin secretions. CARDIAC: Regular rhythm and rate. Normal S1, paradoxically split S2. Monitor sinus rising with bundle-branch block and paroxysms of atrial fibrillation. ABDOMEN: Soft. EXTREMITIES: Trace edema. LABORATORY DATA: Sputum has Proteus, Acinetobacter, and E. coli. IMPRESSION: 1. Respiratory failure. 2. Polymicrobial pneumonia. 3. Respiratory failure. 4. Ischemic cardiomyopathy. 5. Paroxysmal atrial fibrillation. 6. Conduction system disease of the heart. 7. Acute on chronic systolic and diastolic congestive heart failure. 8. Status post cardiopulmonary arrest x2. 9. Intensive care unit. PLAN: 1. Plan of care reviewed, updated, and discussed with staff. 2. Orders in place. 3. Condition remains serious with guarded prognosis. 4. The patient will need prolonged weaning in a subacute facility. Saeed Sim M.D. DR: MARCIA JOB#: [id number] CC:
[2019-09-13 04:00] VITALS: BP 138/78
[2019-09-13 08:00] VITALS: BP 107/73
[2019-09-13] MEDS: Pantoprazole Inj IVP SCH ×2 (08:16→21:52)
[2019-09-13] MEDS: Bactrim-DS 1 tab ORAL SCH ×2 (08:17→18:00)
[2019-09-13] MEDS: Amiodarone 200mg tab NG SCH (08:17)
[2019-09-13] MEDS: Heparin 5000 units/ml inj SUBQ SCH ×2 (08:28→21:56)
[2019-09-13 12:00] VITALS: BP 138/69
[2019-09-13] MEDS: Colistin for inhalation INH SCH ×2 (12:02→23:05)
--- NOTE | 2019-09-13 12:10 | Nephrology Progress Note ---
Assessment/Plan Problem List: (1) AUREA (acute kidney injury) Assessment: Serum creatinine rising (2) Cardiopulmonary arrest (3) Respiratory failure (4) Cardiomyopathy (5) Obesity (BMI 30.0-34.9) (6) DMII (diabetes mellitus, type 2) Assessment Acute Renal Failure : AUREA Most likely due to cardiorespiratory arrest and episode of hypotension. Patient also has cardiomyopathy with Ej Fx of 40 % on admission Obese : BMI 34.4 ? DM Other Dx (1) Cardiopulmonary arrest (2) Nosocomial pneumonia (3) Acute respiratory failure (4) COPD (chronic obstructive pulmonary disease) (5) Atrial fibrillation (6) Dementia with behavioral disturbance (7) CAD (coronary artery disease) Plan Had tracheostomy September 09 Today's labs reviewed D5 W IV fluids for hypernatremia as needed pressors are off now patient's condition somewhat more stable In ICU He is intubated ventilator, weaning is being tried His blood pressure is more stable Overall he is still doing poorly Adjust blood pressure medications Stress dose of steroids which we will start tapering today Previously Monitor renal parameters. Serum creatinine improved Monitor urine output. Urine output improved. Avoid nephrotoxics. Weaning as possible. Remains intubated at this time. Correct electrolyte imbalances. Change tube feeding to Glucerna. Subjective ROS Limited/Unobtainable: Yes Objective Objective Last 24 Hour Vital Signs Date Time Temp Pulse Resp B/P (MAP) Pulse Ox O2 Delivery O2 Flow Rate FiO2 09/13/19 11:00 89 23 30 09/13/19 09:20 78 18 30 09/13/19 08:00 84 09/13/19 08:00 97.2 71 19 107/73 (84) 95 09/13/19 07:00 84 20 30 09/13/19 05:04 80 21 30 09/13/19 04:08 83 09/13/19 04:00 83 09/13/19 04:00 94.7 71 17 138/78 (98) 96 09/13/19 04:00 Mechanical Ventilator Mechanical Ventilator 09/13/19 04:00 30 09/13/19 02:59 80 21 30 09/13/19 00:00 30 09/13/19 00:00 Mechanical Ventilator Mechanical Ventilator 09/13/19 00:00 94.7 71 17 138/78 (98) 96 09/12/19 23:56 74 09/12/19 23:46 161/79 09/12/19 23:00 70 15 30 09/12/19 21:32 72 16 99 Mechanical Ventilator 30 71 14 30 09/12/19 20:00 Mechanical Ventilator Mechanical Ventilator 09/12/19 20:00 30 09/12/19 20:00 97.4 84 20 146/62 (90) 84 09/12/19 20:00 84 09/12/19 19:29 71 09/12/19 19:21 72 17 30 09/12/19 16:00 30 09/12/19 16:00 Mechanical Ventilator Mechanical Ventilator 09/12/19 16:00 73 09/12/19 15:54 97.0 79 20 159/71 (100) 96 09/12/19 15:06 77 21 30 09/12/19 13:55 75 19 30 Intake and Output 09/12/19 09/13/19 19:00 07:00 Intake Total 720 ml 705 ml Output Total 350 ml 300 ml Balance 370 ml 405 ml Free Water 90 ml Tube Feeding 630 ml 605 ml Other 100 ml Output Urine Total 350 ml 300 ml No labs drawn today Height (Feet): 5 Height (Inches): 5.00 Weight (Pounds): 191 General Appearance: no apparent distress EENT: other - Trached and vented Cardiovascular: normal rate Respiratory/Chest: decreased breath sounds Abdomen: soft Objective no change Yunior Sexton MD Sep 13, 2019 12:10
[2019-09-13 16:00] VITALS: BP 145/64
[2019-09-13] MEDS ORDERED: NS 275ml ONE (16:58)
--- NOTE | 2019-09-13 19:37 | Surgery Progress Note ---
Surgery Progress Note Subjective Procedure Performed Tracheostomy Additional Comments no acute events stable Objective Last 24 Hour Vital Signs Date Time Temp Pulse Resp B/P (MAP) Pulse Ox O2 Delivery O2 Flow Rate FiO2 09/13/19 17:20 80 18 30 09/13/19 16:00 Mechanical Ventilator Mechanical Ventilator 09/13/19 16:00 30 09/13/19 16:00 99.7 80 20 145/64 (91) 95 09/13/19 16:00 82 09/13/19 15:15 84 20 30 09/13/19 13:15 87 19 30 09/13/19 12:00 97.0 82 19 138/69 (92) 96 09/13/19 12:00 Mechanical Ventilator Mechanical Ventilator 09/13/19 12:00 30 09/13/19 12:00 82 09/13/19 11:00 89 23 95 Mechanical Ventilator 50.0 30 95 19 30 09/13/19 09:20 78 18 30 09/13/19 08:00 84 09/13/19 08:00 Mechanical Ventilator Mechanical Ventilator 09/13/19 08:00 30 09/13/19 08:00 97.2 71 19 107/73 (84) 95 09/13/19 07:00 84 20 30 09/13/19 05:04 80 21 30 09/13/19 04:08 83 09/13/19 04:00 83 09/13/19 04:00 94.7 71 17 138/78 (98) 96 09/13/19 04:00 Mechanical Ventilator Mechanical Ventilator 09/13/19 04:00 30 09/13/19 02:59 80 21 30 09/13/19 00:00 30 09/13/19 00:00 Mechanical Ventilator Mechanical Ventilator 09/13/19 00:00 94.7 71 17 138/78 (98) 96 09/12/19 23:56 74 09/12/19 23:46 161/79 09/12/19 23:00 70 15 30 09/12/19 21:32 72 16 99 Mechanical Ventilator 30 71 14 30 09/12/19 20:00 Mechanical Ventilator Mechanical Ventilator 09/12/19 20:00 30 09/12/19 20:00 97.4 84 20 146/62 (90) 84 09/12/19 20:00 84 I&O Intake and Output 4/10/20 4/11/20 19:00 07:00 Intake Total 720 ml 760 ml Output Total 350 ml 300 ml Balance 370 ml 460 ml Free Water 90 ml Tube Feeding 630 ml 660 ml Other 100 ml Output Urine Total 350 ml 300 ml Dressing: dry Wound: clean Cardiovascular: RSR Respiratory: decreased breath sounds Abdomen: soft, non-tender, present bowel sounds Extremities: no tenderness, no cyanosis Plan Problems: (1) Nosocomial pneumonia (2) AUREA (acute kidney injury) (3) Cardiomyopathy (4) Obesity (BMI 30.0-34.9) (5) DMII (diabetes mellitus, type 2) (6) Cardiac LV ejection fraction 40% (7) Pulmonary edema (8) Cardiopulmonary arrest Assessment & Plan: Cardiopulmonary arrest septic requiring urgent emergency line placement for pressors and fluids and meds Please see procedure report Full examination performed no other surgical issues found at this time etiology unknown likely surgical in nature Antibiotics fluids Pressors Vent weaning trials right groin site okay. no hematoma. no bleeding left arm picc okay NG tube is present in good position. A partial left lateral decubitus view of the abdomen performed as well as a supine view. The left lateral decubitus view is not adequate as the area of interest which would be the nondependent right side of the abdomen, which is the area of interest was not imaged and is beyond the field-of -view of the x-ray. Bowel gas pattern appears nonobstructive on the basis of the partial images obtained. off pressors labs reviewed cont tube feeds Unable to wean from ventilator. Labs noted ABG noted imaging reviewed cont weaning. if possible extubate otherwise will consider trach extubated improving monitor in ICU for now downgrade re-intubated on vent support on pressors wean pressors will monitor * Interval removal of endotracheal tube. NG tube and left arm PICC line remain in place. * Apparent worsening of aeration with increasing hazy opacities in the bilateral lower lungs which may in part be related to artifact from patient positioning however layering bilateral pleural effusions and bilateral airspace disease not excluded. Follow-up recommended. trach today does not seem to be able to wean s/p trach labs noted exam stable looks more comfortable now downgrade (9) Respiratory failure (10) History of hypertension (11) COPD (chronic obstructive pulmonary disease) (12) CAD (coronary artery disease) (13) Atrial fibrillation (14) Dementia with behavioral disturbance (15) Upper respiratory infection (16) Acute respiratory failure (17) Dyspnea (18) UTI (urinary tract infection) Prosper Hummel Sep 13, 2019 19:37
[2019-09-13 20:00] VITALS: BP 156/75
--- NOTE | 2019-09-13 20:32 | Infectious Diseases Prog Note ---
Assessment/Plan Assessment/Plan ASSESSMENT: The patient is a 79-year-old male with: Multiple reintubations, likely cannot maintain airway now SP trach Low grade temp, SP No leukocytosis Developing PNA on rx 08/31 CXR: There is a hazy opacity at the left lung base again noted unchanged. Mild linear densities are seen in the right midlung which may be atelectasis or scarring. 09/02 CXR: Hazy basilar opacities, most likely due to overlying soft tissue shadows but hazy infiltrates also possible. If the latter, stable on the left, new or increased on the right. 09/04: Suspected pneumonia at the left lung base 09/05 CXR: Bilateral lower lobe infiltrates/atelectasis, similar to prior. 09/08 CXR: Hazy left greater than right basilar opacity and borderline interstitial congestive changes persist. Leukocytosis; Sp Fever , sp Sepsis, Sp Pneumonia (probable asp), Sp RX -08/28 CXR: Interval removal of endotracheal tube. NG tube and left arm PICC line remain in place. Apparent worsening of aeration with increasing hazy opacities in the bilateral lower lungs which may in part be related to artifact from patient positioning however layering bilateral pleural effusions and bilateral airspace disease not excluded. -08/13 Scx: MDR-ACB (Tygacil LANI: 4) - CXR: 1. Streaky opacities in the right lower lung may represent atelectasis versus scarring. Left basilar opacity may represent atelectasis. Component of pneumonia is not excluded. Pulmonary vasculature congestion. -08/01 ucx NTD -sp cx: nl anastacio Urinary tract infection, SP Rx 08/31 SP rapid response and reintubation 08/17 Sp code blue and intubation , extubated 08/27 07/31 Sp Code blue and intubation , sp extubation 08/12 , Hyperlipidemia. COPD. History of GERD. History of encephalopathy. History of CAD/MD. History of cardiomyopathy. Hypertension. PLAN: INH colistin and bactrim #09/08-10 09/09 SP colistin IV #6 -08/28 SP Colistin INH (MDR-ACB) # 14 - 08/22/19 SP Merrem 10 - 08/14 SP IV Vanco # 4 -08/07 SP Zosyn and IV Vanco # / , -08/01 SP Rocephin day # 07/31 sp sp Dox # 6 Monitor CBC. Monitor BMP. monitor temp and VS Monitor chest x-ray cont trach care DW RN Subjective Allergies: Coded Allergies: No Known Allergies (Unverified , 06/03/17) Subjective Afebrile. Objective Vital Signs Last 24 Hour Vital Signs Date Time Temp Pulse Resp B/P (MAP) Pulse Ox O2 Delivery O2 Flow Rate FiO2 09/13/19 17:20 80 18 30 09/13/19 16:00 Mechanical Ventilator Mechanical Ventilator 09/13/19 16:00 30 09/13/19 16:00 99.7 80 20 145/64 (91) 95 09/13/19 16:00 82 09/13/19 15:15 84 20 30 09/13/19 13:15 87 19 30 09/13/19 12:00 97.0 82 19 138/69 (92) 96 09/13/19 12:00 Mechanical Ventilator Mechanical Ventilator 09/13/19 12:00 30 09/13/19 12:00 82 09/13/19 11:00 89 23 95 Mechanical Ventilator 50.0 30 95 19 30 09/13/19 09:20 78 18 30 09/13/19 08:00 84 09/13/19 08:00 Mechanical Ventilator Mechanical Ventilator 09/13/19 08:00 30 09/13/19 08:00 97.2 71 19 107/73 (84) 95 09/13/19 07:00 84 20 30 09/13/19 05:04 80 21 30 09/13/19 04:08 83 09/13/19 04:00 83 09/13/19 04:00 94.7 71 17 138/78 (98) 96 09/13/19 04:00 Mechanical Ventilator Mechanical Ventilator 09/13/19 04:00 30 09/13/19 02:59 80 21 30 09/13/19 00:00 30 09/13/19 00:00 Mechanical Ventilator Mechanical Ventilator 09/13/19 00:00 94.7 71 17 138/78 (98) 96 09/12/19 23:56 74 09/12/19 23:46 161/79 09/12/19 23:00 70 15 30 09/12/19 21:32 72 16 99 Mechanical Ventilator 30 71 14 30 Height (Feet): 5 Height (Inches): 5.00 Weight (Pounds): 191 Objective Gen: NAD. calm. comfortable HEENT: ETT CV: RRR. no rubs Resp: RRR. equal chest rise. no wheezes. Abd: nondistended. no palpable masses Current Medications Medications (Trade) Dose Ordered Sig/Amaris Route PRN Reason Start Time Stop Time Status Last Admin Dose Admin Acetaminophen (Tylenol) 650 mg Q4H PRN NG MILD PAIN/T>100.4 09/11/19 17:00 10/01/19 16:59 Amiodarone HCl (Cordarone) 200 mg DAILY NG 09/12/19 09:00 11/30/19 10:21 09/13/19 08:17 Atorvastatin Calcium (Lipitor) 40 mg BEDTIME NG 09/11/19 21:00 09/13/19 20:59 09/12/19 23:45 Chlorhexidine Gluconate (Kamila-Hex 2%) 1 applic DAILY@1999 TOPIC 09/11/19 20:00 09/17/19 19:59 09/12/19 23:44 Clopidogrel Bisulfate (Plavix) 75 mg DAILY NG 09/12/19 09:00 10/01/19 10:21 09/13/19 08:16 Colistimethate Sodium (Colistin *inhalation use only*) 75 mg Q12HR@ INH 09/11/19 22:00 09/17/19 09:59 09/13/19 12:02 Heparin Sodium (Porcine) (Heparin 5000 units/ml) 5,000 units EVERY 12 HOURS SUBQ 09/11/19 21:00 10/16/19 10:22 09/13/19 08:28 Hydralazine HCl (Apresoline) 25 mg Q6H PRN NG SBP above 160 09/11/19 18:00 12/10/19 17:59 09/12/19 23:46 Pantoprazole (Protonix) 40 mg EVERY 12 HOURS IVP 09/11/19 21:00 10/01/19 10:22 09/13/19 08:16 Trimethoprim/ Sulfamethoxazole (Bactrim-DS) 1 tab TWICE A DAY ORAL 09/11/19 18:00 09/17/19 09:59 09/13/19 08:17 Rafy Page MD Sep 13, 2019 20:32
[2019-09-13] MEDS: Dyna-Hex 2% Top Sol 2oz TOPIC SCH (21:52)
[2019-09-14] VITALS: BP 158/68
--- NOTE | 2019-09-14 00:30 | Progress Note ---
DATE: 09/13/2019 CARDIOLOGY PROGRESS NOTE SUBJECTIVE: The patient is status post tracheostomy, today is postop day #4. Secretions are thin. Weaning efforts ongoing. Blood pressure parameters overall stable. Monitored sinus rhythm. PHYSICAL EXAMINATION: VITAL SIGNS: Blood pressure 145/64, pulse 80, respiratory rate 20. LUNGS: Few rhonchi. HEART: Regular rhythm and rate. Normal S1, S2. ABDOMEN: Soft. G-tube in place. EXTREMITIES: No edema. LABORATORY AND DIAGNOSTIC DATA: Monitor reveals sinus rhythm with paroxysms of atrial fibrillation. No new lab studies today. IMPRESSION: 1. Respiratory failure, status post tracheostomy. 2. Acute on chronic diastolic congestive heart failure. 3. Paroxysmal atrial fibrillation. 4. Conduction system disease of the heart. PLAN: 1. Antimicrobials. 2. Respiratory hygiene. 3. Weaning efforts. 4. Replace electrolytes and magnesium as needed. 5. Monitor volume status. 6. Periodic diuresis based on clinical parameters. 7. Repeat laboratory studies planned. Saeed Sim M.D. DR: Bruno JOB#: [id number] CC:
--- NOTE | 2019-09-14 02:59 | Progress Note ---
DATE: 09/13/2019 SUBJECTIVE: The patient is alert, awake, afebrile, hemodynamically stable, and required restraints. PHYSICAL EXAMINATION: VITAL SIGNS: Blood pressure 156/75, his pulse is 88, respirations of 20, and temperature was 97.1. HEENT: Eyes were normal. ENT, mucous membranes were moist and intact. NECK: Supple with no JVD without lymph nodes. Tracheostomy site is clean. LUNGS: Clear without rhonchi, rales, or wheezing. HEART: Normal sounds with regular beats. There is no tachycardia at rest. ABDOMEN: Soft, nontender, with normal bowel sounds. Gastrostomy site is clean. EXTREMITIES: Warm without cyanosis, clubbing, or edema. LABORATORY DATA: No new laboratory data available at the time of this dictation. The last laboratory tests from 09/11/2019. IMPRESSION: The patient is in stable condition. He is hemodynamically stable, afebrile without tachycardia, not appear today even without distress. Repeat laboratory tests will be done in the a.m. Modesta Mulligan M.D. DR: HUANG JOB#: [id number] CC:
[2019-09-14 04:00] VITALS: BP 137/54
[2019-09-14 07:41] LABS: BASOPHILS % (AUTO) 0.6 % (0.0-2.0); EOSINOPHILS % (AUTO) 4.1 % (0.0-3.0); HEMATOCRIT 28.2 % (42.0-52.0); HEMOGLOBIN 9.4 G/DL (14.2-18.0); LYMPHOCYTES % (AUTO) 21.9 % (20.0-45.0); MEAN CORPUSCULAR VOLUME 92 FL (80-99); NEUTROPHILS % (AUTO) 65.5 % (45.0-75.0); PLATELET COUNT 304 K/UL (150-450); RED BLOOD COUNT 3.08 M/UL (4.70-6.10); RED CELL DISTRIBUTION WIDTH 13.8 % (11.6-14.8); WHITE BLOOD COUNT 7.3 K/UL (4.8-10.8)
[2019-09-14 07:57] LABS: ALANINE AMINOTRANSFERASE 52 U/L (12-78); ALBUMIN 2.1 G/DL (3.4-5.0); ALBUMIN/GLOBULIN RATIO 0.7 (1.0-2.7); ALKALINE PHOSPHATASE 80 U/L (46-116); ANION GAP 6 mmol/L (5-15); ASPARTATE AMINO TRANSFERASE 30 U/L (15-37); BILIRUBIN,TOTAL 0.4 MG/DL (0.2-1.0); BLOOD UREA NITROGEN 31 mg/dL (7-18); CALCIUM 8.6 MG/DL (8.5-10.1); CARBON DIOXIDE 30 MMOL/L (21-32); CHLORIDE 104 MMOL/L (98-107); CREATININE 0.6 MG/DL (0.55-1.30); PHOSPHORUS 3.5 MG/DL (2.5-4.9); POTASSIUM 4.3 MMOL/L (3.5-5.1); SODIUM 140 MMOL/L (136-145)
[2019-09-14 08:00] VITALS: BP 147/71
[2019-09-14] MEDS: Bactrim-DS 1 tab ORAL SCH ×2 (08:31→17:16)
[2019-09-14] MEDS: Amiodarone 200mg tab NG SCH (08:31)
[2019-09-14] MEDS: Pantoprazole Inj IVP SCH ×2 (08:32→20:32)
[2019-09-14] MEDS: Heparin 5000 units/ml inj SUBQ SCH ×2 (08:33→20:35)
[2019-09-14] MEDS: Colistin for inhalation INH SCH ×2 (09:41→21:15)
--- NOTE | 2019-09-14 10:41 | Diagnostic Imaging Report ---
EXAM: XR Chest, 2 Views CLINICAL HISTORY: COPD TECHNIQUE: Frontal and lateral views of the chest. COMPARISON: 09/11/19 FINDINGS: Redemonstrated tracheostomy. This and enteric tubes are again, appropriately positioned. Hazy basilar opacities are stable, likely reflecting a combination of small layering pleural effusions and basilar atelectasis/consolidation. The heart is not grossly enlarged. The aortic knob is calcified. Degenerative changes present. IMPRESSION: No significant interval change in hazy basilar opacities, likely combination of small pleural effusions and atelectasis/consolidation. Appropriately positioned tracheostomy and enteric tubes.
[2019-09-14 12:00] VITALS: BP 154/71
--- NOTE | 2019-09-14 13:14 | Nephrology Progress Note ---
Assessment/Plan Problem List: (1) AUREA (acute kidney injury) Assessment: Serum creatinine rising (2) Cardiopulmonary arrest (3) Respiratory failure (4) Cardiomyopathy (5) Obesity (BMI 30.0-34.9) (6) DMII (diabetes mellitus, type 2) Assessment Acute Renal Failure : AUREA Most likely due to cardiorespiratory arrest and episode of hypotension. Patient also has cardiomyopathy with Ej Fx of 40 % on admission Obese : BMI 34.4 ? DM Other Dx (1) Cardiopulmonary arrest (2) Nosocomial pneumonia (3) Acute respiratory failure (4) COPD (chronic obstructive pulmonary disease) (5) Atrial fibrillation (6) Dementia with behavioral disturbance (7) CAD (coronary artery disease) Plan Had tracheostomy September 09 Today's labs reviewed D5 W IV fluids for hypernatremia as needed pressors are off now patient's condition somewhat more stable In ICU He is intubated ventilator, weaning is being tried His blood pressure is more stable Overall he is still doing poorly Adjust blood pressure medications Stress dose of steroids which we will start tapering today Previously Monitor renal parameters. Serum creatinine improved Monitor urine output. Urine output improved. Avoid nephrotoxics. Weaning as possible. Remains intubated at this time. Correct electrolyte imbalances. Change tube feeding to Glucerna. Subjective ROS Limited/Unobtainable: Yes Objective Objective Last 24 Hour Vital Signs Date Time Temp Pulse Resp B/P (MAP) Pulse Ox O2 Delivery O2 Flow Rate FiO2 09/14/19 12:00 Mechanical Ventilator Mechanical Ventilator Mechanical Ventilator 09/14/19 12:00 97.5 75 16 154/71 (98) 96 09/14/19 12:00 30 09/14/19 11:42 77 09/14/19 09:40 90 18 30 09/14/19 08:00 Mechanical Ventilator Mechanical Ventilator Mechanical Ventilator 09/14/19 08:00 30 09/14/19 08:00 87 09/14/19 08:00 97.5 87 17 147/71 (96) 94 09/14/19 04:59 83 15 30 09/14/19 04:00 30 09/14/19 04:00 77 09/14/19 04:00 Mechanical Ventilator Mechanical Ventilator 09/14/19 04:00 97.0 77 20 137/54 (81) 97 09/14/19 03:25 82 15 30 09/14/19 00:00 89 09/14/19 00:00 96.8 89 20 158/68 (98) 97 09/14/19 00:00 30 09/14/19 00:00 Mechanical Ventilator Mechanical Ventilator 09/13/19 22:30 93 17 97 Mechanical Ventilator 30 95 19 30 09/13/19 20:00 30 09/13/19 20:00 97.1 88 20 156/75 (102) 100 09/13/19 20:00 82 09/13/19 20:00 Mechanical Ventilator Mechanical Ventilator 09/13/19 19:40 81 23 30 09/13/19 17:20 80 18 30 09/13/19 16:00 Mechanical Ventilator Mechanical Ventilator 09/13/19 16:00 30 09/13/19 16:00 99.7 80 20 145/64 (91) 95 09/13/19 16:00 82 09/13/19 15:15 84 20 30 09/13/19 13:15 87 19 30 Intake and Output 09/13/19 09/14/19 19:00 07:00 Intake Total 305 ml 750 ml Output Total 20 ml 550 ml Balance 285 ml 200 ml Free Water 30 ml 200 ml Tube Feeding 275 ml 550 ml Output Urine Total 20 ml 550 ml # Bowel Movements 2 1 Laboratory Tests 09/14/19 06:25: White Blood Count 7.3, Red Blood Count 3.08L, Hemoglobin 9.4L, Hematocrit 28.2L , Mean Corpuscular Volume 92, Mean Corpuscular Hemoglobin 30.6, Mean Corpuscular Hemoglobin Concent 33.5, Red Cell Distribution Width 13.8, Platelet Count 304, Mean Platelet Volume 5.1L, Neutrophils (%) (Auto) 65.5, Lymphocytes ( %) (Auto) 21.9, Monocytes (%) (Auto) 8.0, Eosinophils (%) (Auto) 4.1H, Basophils (%) (Auto) 0.6, Sodium Level 140, Potassium Level 4.3, Chloride Level 104, Carbon Dioxide Level 30, Anion Gap 6, Blood Urea Nitrogen 31H, Creatinine 0.6, Estimat Glomerular Filtration Rate > 60, Glucose Level 101, Uric Acid 2.1L , Calcium Level 8.6, Phosphorus Level 3.5, Magnesium Level 1.9, Total Bilirubin 0.4, Aspartate Amino Transf (AST/SGOT) 30, Alanine Aminotransferase (ALT/SGPT) 52, Alkaline Phosphatase 80, C-Reactive Protein, Quantitative 6.8H, Pro-B-Type Natriuretic Peptide 2376H, Total Protein 5.2L, Albumin 2.1L, Globulin 3.1, Albumin/Globulin Ratio 0.7L Height (Feet): 5 Height (Inches): 5.00 Weight (Pounds): 194 General Appearance: no apparent distress EENT: other - Trach and vent Respiratory/Chest: decreased breath sounds Abdomen: soft Objective no change Yunior Sexton MD Sep 14, 2019 13:14
[2019-09-14] MEDS ORDERED: NS 275ml ONE (14:15)
--- NOTE | 2019-09-14 15:04 | Surgery Progress Note ---
Surgery Progress Note Subjective Procedure Performed Tracheostomy Additional Comments labs noted exam unchanged no acute events Objective Last 24 Hour Vital Signs Date Time Temp Pulse Resp B/P (MAP) Pulse Ox O2 Delivery O2 Flow Rate FiO2 09/14/19 13:09 72 15 30 09/14/19 12:00 Mechanical Ventilator Mechanical Ventilator Mechanical Ventilator 09/14/19 12:00 97.5 75 16 154/71 (98) 96 09/14/19 12:00 30 09/14/19 11:42 77 09/14/19 11:04 70 17 30 09/14/19 09:40 90 18 30 09/14/19 08:00 Mechanical Ventilator Mechanical Ventilator Mechanical Ventilator 09/14/19 08:00 30 09/14/19 08:00 87 09/14/19 08:00 97.5 87 17 147/71 (96) 94 09/14/19 04:59 83 15 30 09/14/19 04:00 30 09/14/19 04:00 77 09/14/19 04:00 Mechanical Ventilator Mechanical Ventilator 09/14/19 04:00 97.0 77 20 137/54 (81) 97 09/14/19 03:25 82 15 30 09/14/19 00:00 89 09/14/19 00:00 96.8 89 20 158/68 (98) 97 09/14/19 00:00 30 09/14/19 00:00 Mechanical Ventilator Mechanical Ventilator 09/13/19 22:30 93 17 97 Mechanical Ventilator 30 95 19 30 09/13/19 20:00 30 09/13/19 20:00 97.1 88 20 156/75 (102) 100 09/13/19 20:00 82 09/13/19 20:00 Mechanical Ventilator Mechanical Ventilator 09/13/19 19:40 81 23 30 09/13/19 17:20 80 18 30 09/13/19 16:00 Mechanical Ventilator Mechanical Ventilator 09/13/19 16:00 30 09/13/19 16:00 99.7 80 20 145/64 (91) 95 09/13/19 16:00 82 09/13/19 15:15 84 20 30 I&O Intake and Output 09/13/19 09/14/19 19:00 07:00 Intake Total 305 ml 750 ml Output Total 20 ml 550 ml Balance 285 ml 200 ml Free Water 30 ml 200 ml Tube Feeding 275 ml 550 ml Output Urine Total 20 ml 550 ml # Bowel Movements 2 1 Dressing: other Wound: other Drains: other Cardiovascular: RSR Respiratory: decreased breath sounds Abdomen: soft, non-tender, present bowel sounds Extremities: no cyanosis Laboratory Tests Test 09/14/19 06:25 White Blood Count 7.3 K/UL (4.8-10.8) Red Blood Count 3.08 M/UL (4.70-6.10) L Hemoglobin 9.4 G/DL (14.2-18.0) L Hematocrit 28.2 % (42.0-52.0) L Mean Corpuscular Volume 92 FL (80-99) Mean Corpuscular Hemoglobin 30.6 PG (27.0-31.0) Mean Corpuscular Hemoglobin Concent 33.5 G/DL (32.0-36.0) Red Cell Distribution Width 13.8 % (11.6-14.8) Platelet Count 304 K/UL (150-450) Mean Platelet Volume 5.1 FL (6.5-10.1) L Neutrophils (%) (Auto) 65.5 % (45.0-75.0) Lymphocytes (%) (Auto) 21.9 % (20.0-45.0) Monocytes (%) (Auto) 8.0 % (1.0-10.0) Eosinophils (%) (Auto) 4.1 % (0.0-3.0) H Basophils (%) (Auto) 0.6 % (0.0-2.0) Sodium Level 140 MMOL/L (136-145) Potassium Level 4.3 MMOL/L (3.5-5.1) Chloride Level 104 MMOL/L (98-107) Carbon Dioxide Level 30 MMOL/L (21-32) Anion Gap 6 mmol/L (5-15) Blood Urea Nitrogen 31 mg/dL (7-18) H Creatinine 0.6 MG/DL (0.55-1.30) Estimat Glomerular Filtration Rate > 60 mL/min (>60) Glucose Level 101 MG/DL (74-106) Uric Acid 2.1 MG/DL (2.6-7.2) L Calcium Level 8.6 MG/DL (8.5-10.1) Phosphorus Level 3.5 MG/DL (2.5-4.9) Magnesium Level 1.9 MG/DL (1.8-2.4) Total Bilirubin 0.4 MG/DL (0.2-1.0) Aspartate Amino Transf (AST/SGOT) 30 U/L (15-37) Alanine Aminotransferase (ALT/SGPT) 52 U/L (12-78) Alkaline Phosphatase 80 U/L (46-116) C-Reactive Protein, Quantitative 6.8 mg/dL (0.00-0.90) H Pro-B-Type Natriuretic Peptide 2376 pg/mL (0-125) H Total Protein 5.2 G/DL (6.4-8.2) L Albumin 2.1 G/DL (3.4-5.0) L Globulin 3.1 g/dL Albumin/Globulin Ratio 0.7 (1.0-2.7) L Plan Problems: (1) Nosocomial pneumonia (2) AUREA (acute kidney injury) (3) Cardiomyopathy (4) Obesity (BMI 30.0-34.9) (5) DMII (diabetes mellitus, type 2) (6) Cardiac LV ejection fraction 40% (7) Pulmonary edema (8) Cardiopulmonary arrest Assessment & Plan: Cardiopulmonary arrest septic requiring urgent emergency line placement for pressors and fluids and meds Please see procedure report Full examination performed no other surgical issues found at this time etiology unknown likely surgical in nature Antibiotics fluids Pressors Vent weaning trials right groin site okay. no hematoma. no bleeding left arm picc okay NG tube is present in good position. A partial left lateral decubitus view of the abdomen performed as well as a supine view. The left lateral decubitus view is not adequate as the area of interest which would be the nondependent right side of the abdomen, which is the area of interest was not imaged and is beyond the field-of -view of the x-ray. Bowel gas pattern appears nonobstructive on the basis of the partial images obtained. off pressors labs reviewed cont tube feeds Unable to wean from ventilator. Labs noted ABG noted imaging reviewed cont weaning. if possible extubate otherwise will consider trach extubated improving monitor in ICU for now downgrade re-intubated on vent support on pressors wean pressors will monitor * Interval removal of endotracheal tube. NG tube and left arm PICC line remain in place. * Apparent worsening of aeration with increasing hazy opacities in the bilateral lower lungs which may in part be related to artifact from patient positioning however layering bilateral pleural effusions and bilateral airspace disease not excluded. Follow-up recommended. trach today does not seem to be able to wean s/p trach labs noted exam stable looks more comfortable now downgrade (9) Respiratory failure (10) History of hypertension (11) COPD (chronic obstructive pulmonary disease) (12) CAD (coronary artery disease) (13) Atrial fibrillation (14) Dementia with behavioral disturbance (15) Upper respiratory infection (16) Acute respiratory failure (17) Dyspnea (18) UTI (urinary tract infection) Prosper Hummel Sep 14, 2019 15:04
[2019-09-14 16:00] VITALS: BP 145/81
[2019-09-14 20:00] VITALS: BP 123/58
[2019-09-14] MEDS: Dyna-Hex 2% Top Sol 2oz TOPIC SCH (20:32)
[2019-09-15] VITALS: BP 104/69
--- NOTE | 2019-09-15 01:45 | Progress Note ---
DATE: 09/14/2019 SUBJECTIVE: Patient is afebrile and hemodynamically stable. PHYSICAL EXAMINATION: VITAL SIGNS: Blood pressure 123/58, his pulse is 75, respirations 16, temperature 98.3. HEENT: Eyes were normal. ENT, mucous membranes were moist and intact. NECK: Supple with no JVD without lymph nodes. Tracheostomy site is clean. LUNGS: Clear without rhonchi, rales, or wheezing. HEART: Normal sounds with regular beat. ABDOMEN: Soft and nontender with normal bowel sounds. EXTREMITIES: Warm without cyanosis, clubbing, or edema. LABORATORY AND DIAGNOSTIC DATA: His hemoglobin is 9.4, hematocrit 28.2 with MCV of 92, WBC of 7.3, and platelets of 304. His BUN and creatinine 31 and 0.6 respectively. His sodium is 140, potassium 4.3, chloride 104, CO2 is 30. His is 2.1. His calcium is 8.6, phosphorus 3.5, and magnesium is 1.9. Chest x-ray revealed no significant change small pleural effusion and atelectasis. Patient is working on swallowing eval. If patient passes, NG-tube can be taken out and patient can be fed orally. If patient fails, gastrostomy tube can being inserted and patient can be discharged. Repeat laboratory tests will be done in the a.m. Modesta Mulligan M.D. DR: ZACHARY JOB#: [id number] CC:
[2019-09-15 04:00] VITALS: BP 146/81
--- NOTE | 2019-09-15 04:00 | Progress Note ---
DATE: 09/14/2019 CARDIOLOGY PROGRESS NOTE SUBJECTIVE: The patient is postop day 4 from tracheostomy. No complications noted. Ongoing weaning efforts. OBJECTIVE: VITAL SIGNS: Blood pressure 123/58, pulse 75, respiratory rate 16, afebrile. Monitor sinus with paroxysmal atrial fibrillation. LUNGS: Coarse breath sounds, rhonchi. CARDIAC: Regular rhythm and rate. Normal S1, S2. ABDOMEN: Soft. EXTREMITIES: Trace edema. DIAGNOSTIC AND LABORATORY DATA: Chest x-ray today reveals no interval change. Bilateral opacities and consolidation with atelectasis, small pleural effusions bilaterally. White count 7, hemoglobin 9.4. Sodium 140, potassium 4.3, bicarb 30, BUN 31, creatinine 0.6, and pro-natriuretic peptide is increased to 2300. IMPRESSION: Status post acute myocardial infarction. PLAN: 1. Diuresis. 2. Weaning efforts. 3. Titrate anti-failure regimen based on clinical parameters. Saeed Sim M.D. DR: RADHA JOB#: [id number] CC:
[2019-09-15 05:40] LABS: BASOPHILS % (AUTO) 0.9 % (0.0-2.0); HEMATOCRIT 29.4 % (42.0-52.0); LYMPHOCYTES % (AUTO) 24.9 % (20.0-45.0); MEAN CORPUSCULAR VOLUME 91 FL (80-99); MONOCYTES % (AUTO) 6.5 % (1.0-10.0); NEUTROPHILS % (AUTO) 61.7 % (45.0-75.0); PLATELET COUNT 327 K/UL (150-450); RED BLOOD COUNT 3.25 M/UL (4.70-6.10); RED CELL DISTRIBUTION WIDTH 13.5 % (11.6-14.8); WHITE BLOOD COUNT 6.6 K/UL (4.8-10.8)
[2019-09-15 06:09] LABS: ANION GAP 5 mmol/L (5-15); BLOOD UREA NITROGEN 28 mg/dL (7-18); CALCIUM 8.6 MG/DL (8.5-10.1); CARBON DIOXIDE 31 MMOL/L (21-32); CHLORIDE 104 MMOL/L (98-107); CREATININE 0.7 MG/DL (0.55-1.30); SODIUM 140 MMOL/L (136-145)
[2019-09-15 08:00] VITALS: BP 158/63
[2019-09-15] MEDS: Bactrim-DS 1 tab ORAL SCH ×2 (08:21→17:00)
[2019-09-15] MEDS: Amiodarone 200mg tab NG SCH (08:23)
[2019-09-15] MEDS: Lisinopril 20mg tab NG SCH (08:23)
[2019-09-15] MEDS: Pantoprazole Inj IVP SCH ×2 (08:23→21:38)
[2019-09-15] MEDS: Heparin 5000 units/ml inj SUBQ SCH ×2 (08:25→21:39)
[2019-09-15] MEDS: Colistin for inhalation INH SCH ×2 (11:19→23:32)
[2019-09-15 12:00] VITALS: BP 136/70
--- NOTE | 2019-09-15 12:47 | Pulmonolgy Critical Care Note ---
Critical Care - Asmt/Plan Problems: (1) Acute respiratory failure (2) Cardiopulmonary arrest (3) Cardiac LV ejection fraction 40% (4) Nosocomial pneumonia (5) Atrial fibrillation (6) Pulmonary edema (7) COPD (chronic obstructive pulmonary disease) (8) CAD (coronary artery disease) (9) Dementia with behavioral disturbance Respiratory: monitor respiratory rate, adjust FIO2, CXR Cardiac: continue to monitor HR/BP Renal: F/U I&O, keep IV fluid Infectious Disease: check cultures Gastrointestinal: continue feedings/current rate Endocrine: monitor blood sugar Hematologic: monitor H/H Neurologic: PRN Ativan, PRN Morphine Affect: PRN ativan Time Spent (Minutes): 40 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, 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, 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 Critical Care - Objective Last 24 Hour Vital Signs Date Time Temp Pulse Resp B/P (MAP) Pulse Ox O2 Delivery O2 Flow Rate FiO2 09/15/19 11:18 76 15 96 Mechanical Ventilator 30 75 16 30 09/15/19 08:30 75 16 30 09/15/19 08:23 158/63 09/15/19 08:00 30 09/15/19 08:00 Mechanical Ventilator Mechanical Ventilator Mechanical Ventilator 09/15/19 08:00 98.1 71 17 158/63 (94) 96 09/15/19 07:54 69 09/15/19 07:18 71 16 30 09/15/19 05:13 77 17 30 09/15/19 04:00 77 09/15/19 04:00 30 09/15/19 04:00 98.1 77 17 146/81 (102) 96 09/15/19 04:00 Mechanical Ventilator Mechanical Ventilator Mechanical Ventilator 09/15/19 02:45 74 16 30 09/15/19 00:00 Mechanical Ventilator Mechanical Ventilator Mechanical Ventilator 09/15/19 00:00 98.0 86 19 104/69 (81) 97 09/14/19 23:01 81 15 30 09/14/19 21:15 86 14 98 Mechanical Ventilator 30 77 14 30 09/14/19 20:00 98.3 75 16 123/58 (79) 97 09/14/19 20:00 30 09/14/19 20:00 Mechanical Ventilator Mechanical Ventilator Mechanical Ventilator 09/14/19 20:00 76 09/14/19 19:26 81 19 30 09/14/19 17:30 84 18 30 09/14/19 16:39 76 09/14/19 16:00 97.5 75 18 145/81 (102) 97 09/14/19 16:00 Mechanical Ventilator Mechanical Ventilator Mechanical Ventilator 09/14/19 16:00 30 09/14/19 15:30 80 19 30 09/14/19 13:09 72 15 30 Status: awake Neck: full ROM, trach Lungs: clear Heart: HR/BP stable, regular Abdomen: non-tender, feeding tube Accucheck: 150 Critical Care - Subjective ROS Limited/Unobtainable: Yes Condition: critical FI02: 30 Vent Support Breath Rate: 14 Vent Support Mode: AC Vent Tidal Volume: 500 Sputum Amount: Small PEEP: 5.0 PIP: 28 Tube Feeding Amount: 55 I&O: Intake and Output 09/14/19 09/15/19 19:00 07:00 Intake Total 805 ml 705 ml Output Total 400 ml 2000 ml Balance 405 ml -1295 ml Free Water 90 ml 100 ml Tube Feeding 715 ml 605 ml Output Urine Total 400 ml 2000 ml # Bowel Movements 4 3 ET-Tube: 7.5 ET Position: 24 Labs: Laboratory Tests Test 09/15/19 04:00 White Blood Count 6.6 K/UL (4.8-10.8) Red Blood Count 3.25 M/UL (4.70-6.10) L Hemoglobin 10.0 G/DL (14.2-18.0) L Hematocrit 29.4 % (42.0-52.0) L Mean Corpuscular Volume 91 FL (80-99) Mean Corpuscular Hemoglobin 30.8 PG (27.0-31.0) Mean Corpuscular Hemoglobin Concent 34.0 G/DL (32.0-36.0) Red Cell Distribution Width 13.5 % (11.6-14.8) Platelet Count 327 K/UL (150-450) Mean Platelet Volume 5.0 FL (6.5-10.1) L Neutrophils (%) (Auto) 61.7 % (45.0-75.0) Lymphocytes (%) (Auto) 24.9 % (20.0-45.0) Monocytes (%) (Auto) 6.5 % (1.0-10.0) Eosinophils (%) (Auto) 6.0 % (0.0-3.0) H Basophils (%) (Auto) 0.9 % (0.0-2.0) Sodium Level 140 MMOL/L (136-145) Potassium Level 4.0 MMOL/L (3.5-5.1) Chloride Level 104 MMOL/L (98-107) Carbon Dioxide Level 31 MMOL/L (21-32) Anion Gap 5 mmol/L (5-15) Blood Urea Nitrogen 28 mg/dL (7-18) H Creatinine 0.7 MG/DL (0.55-1.30) Estimat Glomerular Filtration Rate > 60 mL/min (>60) Glucose Level 110 MG/DL (74-106) H Calcium Level 8.6 MG/DL (8.5-10.1) Nicole Graves MD Sep 15, 2019 12:47
--- NOTE | 2019-09-15 13:23 | Surgery Progress Note ---
Surgery Progress Note Subjective Procedure Performed Tracheostomy Additional Comments no acute events exam stable labs noted Objective Last 24 Hour Vital Signs Date Time Temp Pulse Resp B/P (MAP) Pulse Ox O2 Delivery O2 Flow Rate FiO2 09/15/19 12:00 Mechanical Ventilator Mechanical Ventilator Mechanical Ventilator 09/15/19 12:00 97.6 77 17 136/70 (92) 96 09/15/19 12:00 30 09/15/19 11:44 73 09/15/19 11:18 76 15 96 Mechanical Ventilator 30 75 16 30 09/15/19 08:30 75 16 30 09/15/19 08:23 158/63 09/15/19 08:00 30 09/15/19 08:00 Mechanical Ventilator Mechanical Ventilator Mechanical Ventilator 09/15/19 08:00 98.1 71 17 158/63 (94) 96 09/15/19 07:54 69 09/15/19 07:18 71 16 30 09/15/19 05:13 77 17 30 09/15/19 04:00 77 09/15/19 04:00 30 09/15/19 04:00 98.1 77 17 146/81 (102) 96 09/15/19 04:00 Mechanical Ventilator Mechanical Ventilator Mechanical Ventilator 09/15/19 02:45 74 16 30 09/15/19 00:00 Mechanical Ventilator Mechanical Ventilator Mechanical Ventilator 09/15/19 00:00 98.0 86 19 104/69 (81) 97 09/14/19 23:01 81 15 30 09/14/19 21:15 86 14 98 Mechanical Ventilator 30 77 14 30 09/14/19 20:00 98.3 75 16 123/58 (79) 97 09/14/19 20:00 30 09/14/19 20:00 Mechanical Ventilator Mechanical Ventilator Mechanical Ventilator 09/14/19 20:00 76 09/14/19 19:26 81 19 30 09/14/19 17:30 84 18 30 09/14/19 16:39 76 09/14/19 16:00 97.5 75 18 145/81 (102) 97 09/14/19 16:00 Mechanical Ventilator Mechanical Ventilator Mechanical Ventilator 09/14/19 16:00 30 09/14/19 15:30 80 19 30 I&O Intake and Output 09/14/19 09/15/19 19:00 07:00 Intake Total 805 ml 705 ml Output Total 400 ml 2000 ml Balance 405 ml -1295 ml Free Water 90 ml 100 ml Tube Feeding 715 ml 605 ml Output Urine Total 400 ml 2000 ml # Bowel Movements 4 3 Dressing: other Wound: other Drains: other Cardiovascular: RSR Respiratory: decreased breath sounds Abdomen: soft, non-tender, present bowel sounds Extremities: no cyanosis Laboratory Tests Test 09/15/19 04:00 White Blood Count 6.6 K/UL (4.8-10.8) Red Blood Count 3.25 M/UL (4.70-6.10) L Hemoglobin 10.0 G/DL (14.2-18.0) L Hematocrit 29.4 % (42.0-52.0) L Mean Corpuscular Volume 91 FL (80-99) Mean Corpuscular Hemoglobin 30.8 PG (27.0-31.0) Mean Corpuscular Hemoglobin Concent 34.0 G/DL (32.0-36.0) Red Cell Distribution Width 13.5 % (11.6-14.8) Platelet Count 327 K/UL (150-450) Mean Platelet Volume 5.0 FL (6.5-10.1) L Neutrophils (%) (Auto) 61.7 % (45.0-75.0) Lymphocytes (%) (Auto) 24.9 % (20.0-45.0) Monocytes (%) (Auto) 6.5 % (1.0-10.0) Eosinophils (%) (Auto) 6.0 % (0.0-3.0) H Basophils (%) (Auto) 0.9 % (0.0-2.0) Sodium Level 140 MMOL/L (136-145) Potassium Level 4.0 MMOL/L (3.5-5.1) Chloride Level 104 MMOL/L (98-107) Carbon Dioxide Level 31 MMOL/L (21-32) Anion Gap 5 mmol/L (5-15) Blood Urea Nitrogen 28 mg/dL (7-18) H Creatinine 0.7 MG/DL (0.55-1.30) Estimat Glomerular Filtration Rate > 60 mL/min (>60) Glucose Level 110 MG/DL (74-106) H Calcium Level 8.6 MG/DL (8.5-10.1) Plan Problems: (1) Nosocomial pneumonia (2) AUREA (acute kidney injury) (3) Cardiomyopathy (4) Obesity (BMI 30.0-34.9) (5) DMII (diabetes mellitus, type 2) (6) Cardiac LV ejection fraction 40% (7) Pulmonary edema (8) Cardiopulmonary arrest Assessment & Plan: Cardiopulmonary arrest septic requiring urgent emergency line placement for pressors and fluids and meds Please see procedure report Full examination performed no other surgical issues found at this time etiology unknown likely surgical in nature Antibiotics fluids Pressors Vent weaning trials right groin site okay. no hematoma. no bleeding left arm picc okay NG tube is present in good position. A partial left lateral decubitus view of the abdomen performed as well as a supine view. The left lateral decubitus view is not adequate as the area of interest which would be the nondependent right side of the abdomen, which is the area of interest was not imaged and is beyond the field-of -view of the x-ray. Bowel gas pattern appears nonobstructive on the basis of the partial images obtained. off pressors labs reviewed cont tube feeds Unable to wean from ventilator. Labs noted ABG noted imaging reviewed cont weaning. if possible extubate otherwise will consider trach extubated improving monitor in ICU for now downgrade re-intubated on vent support on pressors wean pressors will monitor * Interval removal of endotracheal tube. NG tube and left arm PICC line remain in place. * Apparent worsening of aeration with increasing hazy opacities in the bilateral lower lungs which may in part be related to artifact from patient positioning however layering bilateral pleural effusions and bilateral airspace disease not excluded. Follow-up recommended. trach today does not seem to be able to wean s/p trach labs noted exam stable looks more comfortable now downgrade (9) Respiratory failure (10) History of hypertension (11) COPD (chronic obstructive pulmonary disease) (12) CAD (coronary artery disease) (13) Atrial fibrillation (14) Dementia with behavioral disturbance (15) Upper respiratory infection (16) Acute respiratory failure (17) Dyspnea (18) UTI (urinary tract infection) Prosper Hummel Sep 15, 2019 13:23
--- NOTE | 2019-09-15 13:32 | General Progress Note ---
Assessment/Plan Problem List: (1) UTI (urinary tract infection) ICD Codes: N39.0 - Urinary tract infection, site not specified SNOMED: 63073866 (2) Acute respiratory failure ICD Codes: J96.00 - Acute respiratory failure, unspecified whether with hypoxia or hypercapnia SNOMED: 98174221 (3) Upper respiratory infection ICD Codes: J06.9 - Acute upper respiratory infection, unspecified SNOMED: 11760066 (4) Dementia with behavioral disturbance ICD Codes: F03.91 - Unspecified dementia with behavioral disturbance SNOMED: 6164322676378 (5) Atrial fibrillation ICD Codes: I48.91 - Unspecified atrial fibrillation SNOMED: 31904059 (6) CAD (coronary artery disease) ICD Codes: I25.10 - Atherosclerotic heart disease of [place] coronary artery without angina pectoris SNOMED: 07819369 (7) COPD (chronic obstructive pulmonary disease) ICD Codes: J44.9 - Chronic obstructive pulmonary disease, unspecified SNOMED: 15924243 (8) History of hypertension ICD Codes: Z86.79 - Personal history of other diseases of the circulatory system SNOMED: 788374510 (9) Respiratory failure ICD Codes: J96.90 - Respiratory failure, unspecified, unspecified whether with hypoxia or hypercapnia SNOMED: 254837949 (10) DMII (diabetes mellitus, type 2) ICD Codes: E11.9 - Type 2 diabetes mellitus without complications SNOMED: 30683120 (11) Obesity (BMI 30.0-34.9) ICD Codes: E66.9 - Obesity, unspecified SNOMED: 154269502190526 (12) Anemia ICD Codes: D64.9 - Anemia, unspecified SNOMED: 403650214 Assessment/Plan: needs PEG d/w cardiology will hold Plavix and plan for Sunday Subjective ROS Limited/Unobtainable: No Allergies: Coded Allergies: No Known Allergies (Unverified , 06/03/17) Objective Last 24 Hour Vital Signs Date Time Temp Pulse Resp B/P (MAP) Pulse Ox O2 Delivery O2 Flow Rate FiO2 09/15/19 12:00 Mechanical Ventilator Mechanical Ventilator Mechanical Ventilator 09/15/19 12:00 97.6 77 17 136/70 (92) 96 09/15/19 12:00 30 09/15/19 11:44 73 09/15/19 11:18 76 15 96 Mechanical Ventilator 30 75 16 30 09/15/19 08:30 75 16 30 09/15/19 08:23 158/63 09/15/19 08:00 30 09/15/19 08:00 Mechanical Ventilator Mechanical Ventilator Mechanical Ventilator 09/15/19 08:00 98.1 71 17 158/63 (94) 96 09/15/19 07:54 69 09/15/19 07:18 71 16 30 09/15/19 05:13 77 17 30 09/15/19 04:00 77 09/15/19 04:00 30 09/15/19 04:00 98.1 77 17 146/81 (102) 96 09/15/19 04:00 Mechanical Ventilator Mechanical Ventilator Mechanical Ventilator 09/15/19 02:45 74 16 30 09/15/19 00:00 Mechanical Ventilator Mechanical Ventilator Mechanical Ventilator 09/15/19 00:00 98.0 86 19 104/69 (81) 97 09/14/19 23:01 81 15 30 09/14/19 21:15 86 14 98 Mechanical Ventilator 30 77 14 30 09/14/19 20:00 98.3 75 16 123/58 (79) 97 09/14/19 20:00 30 09/14/19 20:00 Mechanical Ventilator Mechanical Ventilator Mechanical Ventilator 09/14/19 20:00 76 09/14/19 19:26 81 19 30 09/14/19 17:30 84 18 30 09/14/19 16:39 76 09/14/19 16:00 97.5 75 18 145/81 (102) 97 09/14/19 16:00 Mechanical Ventilator Mechanical Ventilator Mechanical Ventilator 09/14/19 16:00 30 09/14/19 15:30 80 19 30 Intake and Output 09/14/19 09/15/19 19:00 07:00 Intake Total 805 ml 705 ml Output Total 400 ml 2000 ml Balance 405 ml -1295 ml Free Water 90 ml 100 ml Tube Feeding 715 ml 605 ml Output Urine Total 400 ml 2000 ml # Bowel Movements 4 3 Laboratory Tests 09/15/19 04:00: White Blood Count 6.6, Red Blood Count 3.25L, Hemoglobin 10.0L, Hematocrit 29.4L , Mean Corpuscular Volume 91, Mean Corpuscular Hemoglobin 30.8, Mean Corpuscular Hemoglobin Concent 34.0, Red Cell Distribution Width 13.5, Platelet Count 327, Mean Platelet Volume 5.0L, Neutrophils (%) (Auto) 61.7, Lymphocytes ( %) (Auto) 24.9, Monocytes (%) (Auto) 6.5, Eosinophils (%) (Auto) 6.0H, Basophils (%) (Auto) 0.9, Sodium Level 140, Potassium Level 4.0, Chloride Level 104, Carbon Dioxide Level 31, Anion Gap 5, Blood Urea Nitrogen 28H, Creatinine 0.7, Estimat Glomerular Filtration Rate > 60, Glucose Level 110H, Calcium Level 8.6 Height (Feet): 5 Height (Inches): 5.00 Weight (Pounds): 192 General Appearance: lethargic EENT: normal ENT inspection Neck: supple Cardiovascular: normal rate Respiratory/Chest: decreased breath sounds Abdomen: normal bowel sounds, non tender, soft Extremities: non-tender Valente Rosado MD Sep 15, 2019 13:32
--- NOTE | 2019-09-15 13:46 | Hematology/Onc Progress Note ---
Assessment/Plan Assessment/Plan # Anemia of chronic disease due to underlying chronic medical issues, multifactorial v Gi bleed --> Anemia workup has been ordered, rule out gi bleed --> No evidence of hemolysis is noted, peripheral smear has been reviewed. --> Hgb goal >7. Transfuse prn. --> Epogen or iron at this time is not particularly indicated --> Medications have been reviewed --> low threshold for gi evaluation in case has occult + --> hgb trend 9.4-->10 # Respiratory failure is now s/p trach placed 09/10 --> s/p multple intubations and extubations --> as per surg recs # Developing PNA --> s/p rx, on abx colisitn and bactrim # Sepsis s/p Pneumonia (probable asp), Sp RX # Hypomagnesemia. --> replete with mg as per nenal # paroxysmal atrial fibrillation. --> hold off on anticoag # Acute on chronic diastolic congestive heart failure mostly clinically compensated. --> as per cards recs # Severe protein-calorie malnutrition. 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 Appreciate consultation and candida Rn Subjective Allergies: Coded Allergies: No Known Allergies (Unverified , 06/03/17) All Systems: reviewed and negative except above Subjective 09/10 no events, is tolerating trach well, labs noted 09/[address], off plavix, for peg this week/sun, hgb 10 Objective Objective Current Medications Medications (Trade) Dose Ordered Sig/Amaris Route PRN Reason Start Time Stop Time Status Last Admin Dose Admin Acetaminophen (Tylenol) 650 mg Q4H PRN NG MILD PAIN/T>100.4 09/11/19 17:00 10/01/19 16:59 Amiodarone HCl (Cordarone) 200 mg DAILY NG 09/12/19 09:00 11/30/19 10:21 09/15/19 08:23 Chlorhexidine Gluconate (Kamila-Hex 2%) 1 applic DAILY@1999 TOPIC 09/11/19 20:00 09/17/19 19:59 09/14/19 20:32 Colistimethate Sodium (Colistin *inhalation use only*) 75 mg Q12HR@, INH 09/11/19 22:00 09/17/19 09:59 09/15/19 11:19 Heparin Sodium (Porcine) (Heparin 5000 units/ml) 5,000 units EVERY 12 HOURS SUBQ 09/11/19 21:00 10/16/19 10:22 09/15/19 08:25 Hydralazine HCl (Apresoline) 25 mg Q6H PRN NG SBP above 160 09/11/19 18:00 12/10/19 17:59 09/12/19 23:46 Lisinopril (PriniviL) 20 mg DAILY NG 09/15/19 09:00 10/15/19 08:59 09/15/19 08:23 Pantoprazole (Protonix) 40 mg EVERY 12 HOURS IVP 09/11/19 21:00 10/01/19 10:22 09/15/19 08:23 Trimethoprim/ Sulfamethoxazole (Bactrim-DS) 1 tab TWICE A DAY ORAL 09/11/19 18:00 09/17/19 09:59 09/15/19 08:21 Last 24 Hour Vital Signs Date Time Temp Pulse Resp B/P (MAP) Pulse Ox O2 Delivery O2 Flow Rate FiO2 09/15/19 12:00 Mechanical Ventilator Mechanical Ventilator Mechanical Ventilator 09/15/19 12:00 97.6 77 17 136/70 (92) 96 09/15/19 12:00 30 09/15/19 11:44 73 09/15/19 11:18 76 15 96 Mechanical Ventilator 30 75 16 30 09/15/19 08:30 75 16 30 09/15/19 08:23 158/63 09/15/19 08:00 30 09/15/19 08:00 Mechanical Ventilator Mechanical Ventilator Mechanical Ventilator 09/15/19 08:00 98.1 71 17 158/63 (94) 96 09/15/19 07:54 69 09/15/19 07:18 71 16 30 09/15/19 05:13 77 17 30 09/15/19 04:00 77 09/15/19 04:00 30 09/15/19 04:00 98.1 77 17 146/81 (102) 96 09/15/19 04:00 Mechanical Ventilator Mechanical Ventilator Mechanical Ventilator 09/15/19 02:45 74 16 30 09/15/19 00:00 Mechanical Ventilator Mechanical Ventilator Mechanical Ventilator 09/15/19 00:00 98.0 86 19 104/69 (81) 97 09/14/19 23:01 81 15 30 09/14/19 21:15 86 14 98 Mechanical Ventilator 30 77 14 30 09/14/19 20:00 98.3 75 16 123/58 (79) 97 09/14/19 20:00 30 09/14/19 20:00 Mechanical Ventilator Mechanical Ventilator Mechanical Ventilator 09/14/19 20:00 76 09/14/19 19:26 81 19 30 09/14/19 17:30 84 18 30 09/14/19 16:39 76 09/14/19 16:00 97.5 75 18 145/81 (102) 97 09/14/19 16:00 Mechanical Ventilator Mechanical Ventilator Mechanical Ventilator 09/14/19 16:00 30 09/14/19 15:30 80 19 30 09/14/19 13:09 72 15 30 09/14/19 12:00 Mechanical Ventilator Mechanical Ventilator Mechanical Ventilator 09/14/19 12:00 97.5 75 16 154/71 (98) 96 09/14/19 12:00 30 09/14/19 11:42 77 09/14/19 11:04 70 17 30 09/14/19 09:40 90 18 30 09/14/19 08:00 Mechanical Ventilator Mechanical Ventilator Mechanical Ventilator 09/14/19 08:00 30 09/14/19 08:00 87 09/14/19 08:00 97.5 87 17 147/71 (96) 94 09/14/19 04:59 83 15 30 09/14/19 04:00 30 09/14/19 04:00 77 09/14/19 04:00 Mechanical Ventilator Mechanical Ventilator 09/14/19 04:00 97.0 77 20 137/54 (81) 97 09/14/19 03:25 82 15 30 09/14/19 00:00 89 09/14/19 00:00 96.8 89 20 158/68 (98) 97 09/14/19 00:00 30 09/14/19 00:00 Mechanical Ventilator Mechanical Ventilator 09/13/19 22:30 93 17 97 Mechanical Ventilator 30 95 19 30 09/13/19 20:00 30 09/13/19 20:00 97.1 88 20 156/75 (102) 100 09/13/19 20:00 82 09/13/19 20:00 Mechanical Ventilator Mechanical Ventilator 09/13/19 19:40 81 23 30 09/13/19 17:20 80 18 30 09/13/19 16:00 Mechanical Ventilator Mechanical Ventilator 09/13/19 16:00 30 09/13/19 16:00 99.7 80 20 145/64 (91) 95 09/13/19 16:00 82 09/13/19 15:15 84 20 30 Intake and Output 09/14/19 09/15/19 19:00 07:00 Intake Total 805 ml 705 ml Output Total 400 ml 2000 ml Balance 405 ml -1295 ml Free Water 90 ml 100 ml Tube Feeding 715 ml 605 ml Output Urine Total 400 ml 2000 ml # Bowel Movements 4 3 Labs Test 09/14/19 06:25 09/15/19 04:00 White Blood Count 7.3 K/UL (4.8-10.8) 6.6 K/UL (4.8-10.8) Red Blood Count 3.08 M/UL (4.70-6.10) 3.25 M/UL (4.70-6.10) Hemoglobin 9.4 G/DL (14.2-18.0) 10.0 G/DL (14.2-18.0) Hematocrit 28.2 % (42.0-52.0) 29.4 % (42.0-52.0) Mean Corpuscular Volume 92 FL (80-99) 91 FL (80-99) Mean Corpuscular Hemoglobin 30.6 PG (27.0-31.0) 30.8 PG (27.0-31.0) Mean Corpuscular Hemoglobin Concent 33.5 G/DL (32.0-36.0) 34.0 G/DL (32.0-36.0) Red Cell Distribution Width 13.8 % (11.6-14.8) 13.5 % (11.6-14.8) Platelet Count 304 K/UL (150-450) 327 K/UL (150-450) Mean Platelet Volume 5.1 FL (6.5-10.1) 5.0 FL (6.5-10.1) Neutrophils (%) (Auto) 65.5 % (45.0-75.0) 61.7 % (45.0-75.0) Lymphocytes (%) (Auto) 21.9 % (20.0-45.0) 24.9 % (20.0-45.0) Monocytes (%) (Auto) 8.0 % (1.0-10.0) 6.5 % (1.0-10.0) Eosinophils (%) (Auto) 4.1 % (0.0-3.0) 6.0 % (0.0-3.0) Basophils (%) (Auto) 0.6 % (0.0-2.0) 0.9 % (0.0-2.0) Sodium Level 140 MMOL/L (136-145) 140 MMOL/L (136-145) Potassium Level 4.3 MMOL/L (3.5-5.1) 4.0 MMOL/L (3.5-5.1) Chloride Level 104 MMOL/L (98-107) 104 MMOL/L (98-107) Carbon Dioxide Level 30 MMOL/L (21-32) 31 MMOL/L (21-32) Anion Gap 6 mmol/L (5-15) 5 mmol/L (5-15) Blood Urea Nitrogen 31 mg/dL (7-18) 28 mg/dL (7-18) Creatinine 0.6 MG/DL (0.55-1.30) 0.7 MG/DL (0.55-1.30) Estimat Glomerular Filtration Rate > 60 mL/min (>60) > 60 mL/min (>60) Glucose Level 101 MG/DL (74-106) 110 MG/DL (74-106) Uric Acid 2.1 MG/DL (2.6-7.2) Calcium Level 8.6 MG/DL (8.5-10.1) 8.6 MG/DL (8.5-10.1) Phosphorus Level 3.5 MG/DL (2.5-4.9) Magnesium Level 1.9 MG/DL (1.8-2.4) Total Bilirubin 0.4 MG/DL (0.2-1.0) Aspartate Amino Transf (AST/SGOT) 30 U/L (15-37) Alanine Aminotransferase (ALT/SGPT) 52 U/L (12-78) Alkaline Phosphatase 80 U/L (46-116) C-Reactive Protein, Quantitative 6.8 mg/dL (0.00-0.90) Pro-B-Type Natriuretic Peptide 2376 pg/mL (0-125) Total Protein 5.2 G/DL (6.4-8.2) Albumin 2.1 G/DL (3.4-5.0) Globulin 3.1 g/dL Albumin/Globulin Ratio 0.7 (1.0-2.7) Height (Feet): 5 Height (Inches): 5.00 Weight (Pounds): 192 Objective General Appearance: no apparent distress EENT: other - Remains intubated and on ventilator ++ trach Cardiovascular: normal rate Respiratory/Chest: decreased breath sounds Abdomen: soft Objective no change North Bailey MD Sep 15, 2019 13:46
--- NOTE | 2019-09-15 13:53 | Infectious Diseases Prog Note ---
Assessment/Plan Assessment/Plan ASSESSMENT: The patient is a 79-year-old male with: Multiple reintubations, likely cannot maintain airway now SP trach Low grade temp, SP No leukocytosis Developing PNA on rx 09/13 CXR: No significant interval change in hazy basilar opacities , likely combination of small pleural effusions and atelectasis/consolidation. 08/31 CXR: There is a hazy opacity at the left lung base again noted unchanged. Mild linear densities are seen in the right midlung which may be atelectasis or scarring. 09/02 CXR: Hazy basilar opacities, most likely due to overlying soft tissue shadows but hazy infiltrates also possible. If the latter, stable on the left, new or increased on the right. 09/04: Suspected pneumonia at the left lung base 09/05 CXR: Bilateral lower lobe infiltrates/atelectasis, similar to prior. 09/08 CXR: Hazy left greater than right basilar opacity and borderline interstitial congestive changes persist. Leukocytosis; Sp Fever , sp Sepsis, Sp Pneumonia (probable asp), Sp RX -08/28 CXR: Interval removal of endotracheal tube. NG tube and left arm PICC line remain in place. Apparent worsening of aeration with increasing hazy opacities in the bilateral lower lungs which may in part be related to artifact from patient positioning however layering bilateral pleural effusions and bilateral airspace disease not excluded. -08/13 Scx: MDR-ACB (Tygacil LANI: 4) - CXR: 1. Streaky opacities in the right lower lung may represent atelectasis versus scarring. Left basilar opacity may represent atelectasis. Component of pneumonia is not excluded. Pulmonary vasculature congestion. -08/01 ucx NTD -sp cx: nl anastacio Urinary tract infection, SP Rx 08/31 SP rapid response and reintubation 08/17 Sp code blue and intubation , extubated 08/27 07/31 Sp Code blue and intubation , sp extubation 08/12 , Hyperlipidemia. COPD. History of GERD. History of encephalopathy. History of CAD/ID. History of cardiomyopathy. Hypertension. PLAN: INH colistin and bactrim #6/-10 09/09 SP colistin IV # -08/28 SP Colistin INH (MDR-ACB) # 14 - 08/21/ SP Merrem - 08/14 SP IV Vanco # 4 -3/6 SP Zosyn and IV Vanco # 7/7 , -08/01 SP Rocephin day # - 07/31 sp sp Dox # 6 Monitor CBC. Monitor BMP. monitor temp and VS Monitor chest x-ray cont trach care DW RN Subjective Allergies: Coded Allergies: No Known Allergies (Unverified , 06/03/17) Subjective afebrile on FIo2 30% Objective Vital Signs Last 24 Hour Vital Signs Date Time Temp Pulse Resp B/P (MAP) Pulse Ox O2 Delivery O2 Flow Rate FiO2 09/15/19 12:00 Mechanical Ventilator Mechanical Ventilator Mechanical Ventilator 09/15/19 12:00 97.6 77 17 136/70 (92) 96 09/15/19 12:00 30 09/15/19 11:44 73 09/15/19 11:18 76 15 96 Mechanical Ventilator 30 75 16 30 09/15/19 08:30 75 16 30 09/15/19 08:23 158/63 09/15/19 08:00 30 09/15/19 08:00 Mechanical Ventilator Mechanical Ventilator Mechanical Ventilator 09/15/19 08:00 98.1 71 17 158/63 (94) 96 09/15/19 07:54 69 09/15/19 07:18 71 16 30 09/15/19 05:13 77 17 30 09/15/19 04:00 77 09/15/19 04:00 30 09/15/19 04:00 98.1 77 17 146/81 (102) 96 09/15/19 04:00 Mechanical Ventilator Mechanical Ventilator Mechanical Ventilator 09/15/19 02:45 74 16 30 09/15/19 00:00 Mechanical Ventilator Mechanical Ventilator Mechanical Ventilator 09/15/19 00:00 98.0 86 19 104/69 (81) 97 09/14/19 23:01 81 15 30 09/14/19 21:15 86 14 98 Mechanical Ventilator 30 77 14 30 09/14/19 20:00 98.3 75 16 123/58 (79) 97 09/14/19 20:00 30 09/14/19 20:00 Mechanical Ventilator Mechanical Ventilator Mechanical Ventilator 09/14/19 20:00 76 09/14/19 19:26 81 19 30 09/14/19 17:30 84 18 30 09/14/19 16:39 76 09/14/19 16:00 97.5 75 18 145/81 (102) 97 09/14/19 16:00 Mechanical Ventilator Mechanical Ventilator Mechanical Ventilator 09/14/19 16:00 30 09/14/19 15:30 80 19 30 Height (Feet): 5 Height (Inches): 5.00 Weight (Pounds): 192 Objective HEENT: Thin trach secretions. LUNGS: Bilateral breath sounds with rhonchi. CARDIAC: Regular rhythm and rate. Normal S1 and S2. ABDOMEN: Soft. EXTREMITIES: Trace edema. Laboratory Tests Test 09/15/19 04:00 White Blood Count 6.6 K/UL (4.8-10.8) Red Blood Count 3.25 M/UL (4.70-6.10) L Hemoglobin 10.0 G/DL (14.2-18.0) L Hematocrit 29.4 % (42.0-52.0) L Mean Corpuscular Volume 91 FL (80-99) Mean Corpuscular Hemoglobin 30.8 PG (27.0-31.0) Mean Corpuscular Hemoglobin Concent 34.0 G/DL (32.0-36.0) Red Cell Distribution Width 13.5 % (11.6-14.8) Platelet Count 327 K/UL (150-450) Mean Platelet Volume 5.0 FL (6.5-10.1) L Neutrophils (%) (Auto) 61.7 % (45.0-75.0) Lymphocytes (%) (Auto) 24.9 % (20.0-45.0) Monocytes (%) (Auto) 6.5 % (1.0-10.0) Eosinophils (%) (Auto) 6.0 % (0.0-3.0) H Basophils (%) (Auto) 0.9 % (0.0-2.0) Sodium Level 140 MMOL/L (136-145) Potassium Level 4.0 MMOL/L (3.5-5.1) Chloride Level 104 MMOL/L (98-107) Carbon Dioxide Level 31 MMOL/L (21-32) Anion Gap 5 mmol/L (5-15) Blood Urea Nitrogen 28 mg/dL (7-18) H Creatinine 0.7 MG/DL (0.55-1.30) Estimat Glomerular Filtration Rate > 60 mL/min (>60) Glucose Level 110 MG/DL (74-106) H Calcium Level 8.6 MG/DL (8.5-10.1) Current Medications Medications (Trade) Dose Ordered Sig/Amaris Route PRN Reason Start Time Stop Time Status Last Admin Dose Admin Acetaminophen (Tylenol) 650 mg Q4H PRN NG MILD PAIN/T>100.4 09/11/19 17:00 10/01/19 16:59 Amiodarone HCl (Cordarone) 200 mg DAILY NG 09/12/19 09:00 11/30/19 10:21 09/15/19 08:23 Chlorhexidine Gluconate (Kamila-Hex 2%) 1 applic DAILY@1999 TOPIC 09/11/19 20:00 09/17/19 19:59 09/14/19 20:32 Colistimethate Sodium (Colistin *inhalation use only*) 75 mg Q12HR@ INH 09/11/19 22:00 09/17/19 09:59 09/15/19 11:19 Heparin Sodium (Porcine) (Heparin 5000 units/ml) 5,000 units EVERY 12 HOURS SUBQ 09/11/19 21:00 10/16/19 10:22 09/15/19 08:25 Hydralazine HCl (Apresoline) 25 mg Q6H PRN NG SBP above 160 09/11/19 18:00 12/10/19 17:59 09/12/19 23:46 Lisinopril (PriniviL) 20 mg DAILY NG 09/15/19 09:00 10/15/19 08:59 09/15/19 08:23 Pantoprazole (Protonix) 40 mg EVERY 12 HOURS IVP 09/11/19 21:00 10/01/19 10:22 09/15/19 08:23 Trimethoprim/ Sulfamethoxazole (Bactrim-DS) 1 tab TWICE A DAY ORAL 09/11/19 18:00 09/17/19 09:59 09/15/19 08:21 Ritu Lozano M.D. Sep 15, 2019 13:53
--- NOTE | 2019-09-15 14:42 | Nephrology Progress Note ---
Assessment/Plan Problem List: (1) AUREA (acute kidney injury) Assessment: Serum creatinine rising (2) Cardiopulmonary arrest (3) Respiratory failure (4) Cardiomyopathy (5) Obesity (BMI 30.0-34.9) (6) DMII (diabetes mellitus, type 2) Assessment Acute Renal Failure : AUREA Most likely due to cardiorespiratory arrest and episode of hypotension. Patient also has cardiomyopathy with Ej Fx of 40 % on admission Obese : BMI 34.4 ? DM Other Dx (1) Cardiopulmonary arrest (2) Nosocomial pneumonia (3) Acute respiratory failure (4) COPD (chronic obstructive pulmonary disease) (5) Atrial fibrillation (6) Dementia with behavioral disturbance (7) CAD (coronary artery disease) Plan Had tracheostomy September 09 Today's labs reviewed D5 W IV fluids for hypernatremia as needed pressors are off now patient's condition somewhat more stable In ICU He is intubated ventilator, weaning is being tried His blood pressure is more stable Overall he is still doing poorly Adjust blood pressure medications Stress dose of steroids which we will start tapering today Previously Monitor renal parameters. Serum creatinine improved Monitor urine output. Urine output improved. Avoid nephrotoxics. Weaning as possible. Remains intubated at this time. Correct electrolyte imbalances. Change tube feeding to Glucerna. Subjective ROS Limited/Unobtainable: Yes Objective Objective Last 24 Hour Vital Signs Date Time Temp Pulse Resp B/P (MAP) Pulse Ox O2 Delivery O2 Flow Rate FiO2 09/15/19 12:00 Mechanical Ventilator Mechanical Ventilator Mechanical Ventilator 09/15/19 12:00 97.6 77 17 136/70 (92) 96 09/15/19 12:00 30 09/15/19 11:44 73 09/15/19 11:18 76 15 96 Mechanical Ventilator 30 75 16 30 09/15/19 08:30 75 16 30 09/15/19 08:23 158/63 09/15/19 08:00 30 09/15/19 08:00 Mechanical Ventilator Mechanical Ventilator Mechanical Ventilator 09/15/19 08:00 98.1 71 17 158/63 (94) 96 09/15/19 07:54 69 09/15/19 07:18 71 16 30 09/15/19 05:13 77 17 30 09/15/19 04:00 77 09/15/19 04:00 30 09/15/19 04:00 98.1 77 17 146/81 (102) 96 09/15/19 04:00 Mechanical Ventilator Mechanical Ventilator Mechanical Ventilator 09/15/19 02:45 74 16 30 09/15/19 00:00 Mechanical Ventilator Mechanical Ventilator Mechanical Ventilator 09/15/19 00:00 98.0 86 19 104/69 (81) 97 09/14/19 23:01 81 15 30 09/14/19 21:15 86 14 98 Mechanical Ventilator 30 77 14 30 09/14/19 20:00 98.3 75 16 123/58 (79) 97 09/14/19 20:00 30 09/14/19 20:00 Mechanical Ventilator Mechanical Ventilator Mechanical Ventilator 09/14/19 20:00 76 09/14/19 19:26 81 19 30 09/14/19 17:30 84 18 30 09/14/19 16:39 76 09/14/19 16:00 97.5 75 18 145/81 (102) 97 09/14/19 16:00 Mechanical Ventilator Mechanical Ventilator Mechanical Ventilator 09/14/19 16:00 30 09/14/19 15:30 80 19 30 Intake and Output 09/14/19 09/15/19 19:00 07:00 Intake Total 805 ml 705 ml Output Total 400 ml 2000 ml Balance 405 ml -1295 ml Free Water 90 ml 100 ml Tube Feeding 715 ml 605 ml Output Urine Total 400 ml 2000 ml # Bowel Movements 4 3 Current Medications Medications (Trade) Dose Ordered Sig/Amaris Route PRN Reason Start Time Stop Time Status Last Admin Dose Admin Acetaminophen (Tylenol) 650 mg Q4H PRN NG MILD PAIN/T>100.4 09/11/19 17:00 10/01/19 16:59 Amiodarone HCl (Cordarone) 200 mg DAILY NG 09/12/19 09:00 11/30/19 10:21 09/15/19 08:23 Chlorhexidine Gluconate (Kamila-Hex 2%) 1 applic DAILY@2000 TOPIC 09/11/19 20:00 09/17/19 19:59 09/14/19 20:32 Colistimethate Sodium (Colistin *inhalation use only*) 75 mg Q12HR@10,22 INH 09/11/19 22:00 09/17/19 09:59 09/15/19 11:19 Heparin Sodium (Porcine) (Heparin 5000 units/ml) 5,000 units EVERY 12 HOURS SUBQ 09/11/19 21:00 10/16/19 10:22 09/15/19 08:25 Hydralazine HCl (Apresoline) 25 mg Q6H PRN NG SBP above 160 09/11/19 18:00 12/10/19 17:59 09/12/19 23:46 Lisinopril (PriniviL) 20 mg DAILY NG 09/15/19 09:00 10/15/19 08:59 09/15/19 08:23 Pantoprazole (Protonix) 40 mg EVERY 12 HOURS IVP 09/11/19 21:00 10/01/19 10:22 09/15/19 08:23 Trimethoprim/ Sulfamethoxazole (Bactrim-DS) 1 tab TWICE A DAY ORAL 09/11/19 18:00 09/17/19 09:59 09/15/19 08:21 Laboratory Tests 09/15/19 04:00: White Blood Count 6.6, Red Blood Count 3.25L, Hemoglobin 10.0L, Hematocrit 29.4L , Mean Corpuscular Volume 91, Mean Corpuscular Hemoglobin 30.8, Mean Corpuscular Hemoglobin Concent 34.0, Red Cell Distribution Width 13.5, Platelet Count 327, Mean Platelet Volume 5.0L, Neutrophils (%) (Auto) 61.7, Lymphocytes ( %) (Auto) 24.9, Monocytes (%) (Auto) 6.5, Eosinophils (%) (Auto) 6.0H, Basophils (%) (Auto) 0.9, Sodium Level 140, Potassium Level 4.0, Chloride Level 104, Carbon Dioxide Level 31, Anion Gap 5, Blood Urea Nitrogen 28H, Creatinine 0.7, Estimat Glomerular Filtration Rate > 60, Glucose Level 110H, Calcium Level 8.6 Height (Feet): 5 Height (Inches): 5.00 Weight (Pounds): 192 General Appearance: no apparent distress EENT: other - Trached and vented Cardiovascular: normal rate Respiratory/Chest: decreased breath sounds Abdomen: soft Objective no change Yunior Sexton MD Sep 15, 2019 14:42
[2019-09-15 16:00] VITALS: BP 118/54
[2019-09-15 20:00] VITALS: BP 105/63
[2019-09-15] MEDS: Dyna-Hex 2% Top Sol 2oz TOPIC SCH (21:38)
[2019-09-16] VITALS: BP 129/64
--- NOTE | 2019-09-16 02:29 | Progress Note ---
DATE: 09/15/2019 CARDIOLOGY PROGRESS NOTE SUBJECTIVE: The patient is status post tracheostomy last week on 09/10/2019. Plans for gastrostomy tube are pending. Concern has been raised over bleeding risk since he is on Plavix. Monitored rhythm sinus with bundle-branch block and paroxysms of atrial fib. PHYSICAL EXAMINATION: VITAL SIGNS: Blood pressure 136/70, heart rate 77, respirations 17, afebrile. LUNGS: Bilateral breath sounds. Rhonchi. CARDIAC: Regular rhythm and rate. Normal S1. Paradoxically split S2. ABDOMEN: Soft. EXTREMITIES: Trace edema. LABORATORY DATA: White count 6.6, hemoglobin 10. Potassium 4, BUN 28, creatinine 0.7. IMPRESSION: 1. Respiratory failure, status post tracheostomy. 2. Ischemic cardiomyopathy. 3. Acute on chronic systolic and diastolic congestive heart failure. 4. Severe protein-calorie malnutrition. 5. Paroxysmal atrial fibrillation. PLAN: 1. Okay to hold Plavix for 72 hours in anticipation of gastrostomy tube in order to decrease bleeding/complication risk. 2. Continue diuresis based on clinical parameters. 3. Trend natriuretic peptide as they titrate anti-failure regimen. Saeed Sim M.D. DR: DARYA JOB#: [id number] CC:
[2019-09-16 04:00] VITALS: BP 131/64
[2019-09-16 05:36] LABS: BASOPHILS % (AUTO) 0.6 % (0.0-2.0); EOSINOPHILS % (AUTO) 5.3 % (0.0-3.0); HEMATOCRIT 27.9 % (42.0-52.0); HEMOGLOBIN 9.7 G/DL (14.2-18.0); MEAN CORPUSCULAR VOLUME 91 FL (80-99); NEUTROPHILS % (AUTO) 63.1 % (45.0-75.0); PLATELET COUNT 304 K/UL (150-450); RED BLOOD COUNT 3.07 M/UL (4.70-6.10); RED CELL DISTRIBUTION WIDTH 13.7 % (11.6-14.8)
[2019-09-16 06:05] LABS: ANION GAP 6 mmol/L (5-15); BLOOD UREA NITROGEN 35 mg/dL (7-18); CALCIUM 8.7 MG/DL (8.5-10.1); CARBON DIOXIDE 32 MMOL/L (21-32); CHLORIDE 101 MMOL/L (98-107); CREATININE 0.8 MG/DL (0.55-1.30); SODIUM 139 MMOL/L (136-145)
[2019-09-16 08:00] VITALS: BP 116/56
[2019-09-16] MEDS: Lisinopril 20mg tab NG SCH (09:00)
[2019-09-16] MEDS: Colistin for inhalation INH SCH ×2 (09:22→22:21)
[2019-09-16] MEDS: Pantoprazole Inj IVP SCH ×2 (09:26→21:26)
[2019-09-16] MEDS: Amiodarone 200mg tab NG SCH (09:26)
[2019-09-16] MEDS: Bactrim-DS 1 tab ORAL SCH ×2 (09:27→18:06)
[2019-09-16] MEDS: Heparin 5000 units/ml inj SUBQ SCH ×2 (09:30→21:00)
--- NOTE | 2019-09-16 09:38 | General Progress Note ---
Assessment/Plan Problem List: (1) UTI (urinary tract infection) ICD Codes: N39.0 - Urinary tract infection, site not specified SNOMED: 66421373 (2) Acute respiratory failure ICD Codes: J96.00 - Acute respiratory failure, unspecified whether with hypoxia or hypercapnia SNOMED: 52612920 (3) Upper respiratory infection ICD Codes: J06.9 - Acute upper respiratory infection, unspecified SNOMED: 15367298 (4) Dementia with behavioral disturbance ICD Codes: F03.91 - Unspecified dementia with behavioral disturbance SNOMED: 9448569240434 (5) Atrial fibrillation ICD Codes: I48.91 - Unspecified atrial fibrillation SNOMED: 64246752 (6) CAD (coronary artery disease) ICD Codes: I25.10 - Atherosclerotic heart disease of [place] coronary artery without angina pectoris SNOMED: 01933024 (7) COPD (chronic obstructive pulmonary disease) ICD Codes: J44.9 - Chronic obstructive pulmonary disease, unspecified SNOMED: 45144667 (8) History of hypertension ICD Codes: Z86.79 - Personal history of other diseases of the circulatory system SNOMED: 083527214 (9) Respiratory failure ICD Codes: J96.90 - Respiratory failure, unspecified, unspecified whether with hypoxia or hypercapnia SNOMED: 005662844 (10) DMII (diabetes mellitus, type 2) ICD Codes: E11.9 - Type 2 diabetes mellitus without complications SNOMED: 72912104 (11) Obesity (BMI 30.0-34.9) ICD Codes: E66.9 - Obesity, unspecified SNOMED: 813986289069226 (12) Anemia ICD Codes: D64.9 - Anemia, unspecified SNOMED: 363937707 Assessment/Plan: needs PEG d/w cardiology will hold Plavix and plan for Sunday Subjective ROS Limited/Unobtainable: No Allergies: Coded Allergies: No Known Allergies (Unverified , 06/03/17) Objective Last 24 Hour Vital Signs Date Time Temp Pulse Resp B/P (MAP) Pulse Ox O2 Delivery O2 Flow Rate FiO2 09/16/19 09:23 73 15 94 30 71 14 30 09/16/19 09:00 116/51 09/16/19 07:34 74 17 30 09/16/19 05:30 73 19 30 09/16/19 04:00 Mechanical Ventilator Mechanical Ventilator Mechanical Ventilator 09/16/19 04:00 98.7 74 18 131/64 (86) 95 09/16/19 04:00 30 09/16/19 03:39 76 09/16/19 00:00 99.0 77 20 129/64 (85) 95 09/16/19 00:00 30 09/16/19 00:00 Mechanical Ventilator Mechanical Ventilator Mechanical Ventilator 09/15/19 23:35 76 22 96 Mechanical Ventilator 30 78 24 30 09/15/19 23:29 76 09/15/19 20:00 Mechanical Ventilator Mechanical Ventilator Mechanical Ventilator 09/15/19 20:00 30 09/15/19 20:00 98.6 72 19 105/63 (77) 95 09/15/19 19:30 72 18 30 09/15/19 19:11 72 09/15/19 17:05 71 20 30 09/15/19 16:00 30 09/15/19 16:00 Mechanical Ventilator Mechanical Ventilator Mechanical Ventilator 09/15/19 16:00 98.0 77 17 118/54 (75) 96 09/15/19 15:40 75 16 30 09/15/19 15:09 73 09/15/19 13:15 77 15 96 Mechanical Ventilator 30 75 16 30 09/15/19 12:00 Mechanical Ventilator Mechanical Ventilator Mechanical Ventilator 09/15/19 12:00 97.6 77 17 136/70 (92) 96 09/15/19 12:00 30 09/15/19 11:44 73 09/15/19 11:18 76 15 96 Mechanical Ventilator 30 75 16 30 Intake and Output 09/15/19 09/16/19 19:00 07:00 Intake Total 720 ml 805 ml Output Total 800 ml Balance -80 ml 805 ml Free Water 60 ml 200 ml Tube Feeding 660 ml 605 ml Output Urine Total 800 ml # Bowel Movements 3 2 Laboratory Tests 09/16/19 03:10: White Blood Count 7.0, Red Blood Count 3.07L, Hemoglobin 9.7L, Hematocrit 27.9L , Mean Corpuscular Volume 91, Mean Corpuscular Hemoglobin 31.6H, Mean Corpuscular Hemoglobin Concent 34.7, Red Cell Distribution Width 13.7, Platelet Count 304, Mean Platelet Volume 4.7L, Neutrophils (%) (Auto) 63.1, Lymphocytes ( %) (Auto) 24.0, Monocytes (%) (Auto) 7.0, Eosinophils (%) (Auto) 5.3H, Basophils (%) (Auto) 0.6, Sodium Level 139, Potassium Level 4.0, Chloride Level 101, Carbon Dioxide Level 32, Anion Gap 6, Blood Urea Nitrogen 35H, Creatinine 0.8, Estimat Glomerular Filtration Rate > 60, Glucose Level 103, Calcium Level 8.7 Height (Feet): 5 Height (Inches): 5.00 Weight (Pounds): 184 General Appearance: no apparent distress EENT: normal ENT inspection Neck: supple Cardiovascular: normal rate Respiratory/Chest: decreased breath sounds Abdomen: normal bowel sounds, non tender, soft Extremities: non-tender Valente Rosado MD Sep 16, 2019 09:38
[2019-09-16 12:00] VITALS: BP 115/54
--- NOTE | 2019-09-16 12:16 | Pulmonolgy Critical Care Note ---
Critical Care - Asmt/Plan Problems: (1) Acute respiratory failure (2) Cardiopulmonary arrest (3) Cardiac LV ejection fraction 40% (4) Nosocomial pneumonia (5) Atrial fibrillation (6) Pulmonary edema (7) COPD (chronic obstructive pulmonary disease) (8) CAD (coronary artery disease) (9) Dementia with behavioral disturbance Respiratory: monitor respiratory rate, adjust FIO2, CXR Cardiac: continue to monitor HR/BP Renal: F/U I&O, keep IV fluid, check electrolytes Infectious Disease: check cultures Gastrointestinal: continue feedings/current rate Endocrine: monitor blood sugar Hematologic: monitor H/H, transfuse if hgb<8.5 Neurologic: PRN Ativan, keep patient comfortable Affect: PRN ativan Prophylaxis: Protonix Disposition: keep in ICU 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, 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, 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 Discussed with: nurses, consultants, bilingual 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 - Objective Last 24 Hour Vital Signs Date Time Temp Pulse Resp B/P (MAP) Pulse Ox O2 Delivery O2 Flow Rate FiO2 09/16/19 11:03 72 18 30 09/16/19 09:23 73 15 94 30 71 14 30 09/16/19 09:00 116/51 09/16/19 08:00 30 09/16/19 08:00 74 09/16/19 08:00 97.3 72 19 116/56 (76) 96 09/16/19 08:00 Mechanical Ventilator Mechanical Ventilator 09/16/19 07:34 74 17 30 09/16/19 05:30 73 19 30 09/16/19 04:00 Mechanical Ventilator Mechanical Ventilator Mechanical Ventilator 09/16/19 04:00 98.7 74 18 131/64 (86) 95 09/16/19 04:00 30 09/16/19 03:39 76 09/16/19 00:00 99.0 77 20 129/64 (85) 95 09/16/19 00:00 30 09/16/19 00:00 Mechanical Ventilator Mechanical Ventilator Mechanical Ventilator 09/15/19 23:35 76 22 96 Mechanical Ventilator 30 78 24 30 09/15/19 23:29 76 09/15/19 20:00 Mechanical Ventilator Mechanical Ventilator Mechanical Ventilator 09/15/19 20:00 30 09/15/19 20:00 98.6 72 19 105/63 (77) 95 09/15/19 19:30 72 18 30 09/15/19 19:11 72 09/15/19 17:05 71 20 30 09/15/19 16:00 30 09/15/19 16:00 Mechanical Ventilator Mechanical Ventilator Mechanical Ventilator 09/15/19 16:00 98.0 77 17 118/54 (75) 96 09/15/19 15:40 75 16 30 09/15/19 15:09 73 09/15/19 13:15 77 15 96 Mechanical Ventilator 30 75 16 30 Status: awake Condition: critical, improving HEENT: atraumatic Neck: trach Heart: HR/BP stable Abdomen: soft Extremities: no C/C/E Accucheck: 150 Critical Care - Subjective ROS Limited/Unobtainable: Yes Condition: critical EKG Rhythm: Sinus Rhythm FI02: 30 Vent Support Breath Rate: 14 Vent Support Mode: AC Vent Tidal Volume: 500 Sputum Amount: Small PEEP: 5.0 PIP: 25 Tube Feeding Amount: 55 I&O: Intake and Output 09/15/19 09/16/19 19:00 07:00 Intake Total 720 ml 805 ml Output Total 800 ml Balance -80 ml 805 ml Free Water 60 ml 200 ml Tube Feeding 660 ml 605 ml Output Urine Total 800 ml # Bowel Movements 3 2 CXR: hazy basilar opacities, likely combination of small pleural effusions and atelectasis/consolidation. Appropriately positioned tracheostomy and enteric tubes. ET-Tube: 7.5 ET Position: 24 Labs: Laboratory Tests Test 09/16/19 03:10 White Blood Count 7.0 K/UL (4.8-10.8) Red Blood Count 3.07 M/UL (4.70-6.10) L Hemoglobin 9.7 G/DL (14.2-18.0) L Hematocrit 27.9 % (42.0-52.0) L Mean Corpuscular Volume 91 FL (80-99) Mean Corpuscular Hemoglobin 31.6 PG (27.0-31.0) H Mean Corpuscular Hemoglobin Concent 34.7 G/DL (32.0-36.0) Red Cell Distribution Width 13.7 % (11.6-14.8) Platelet Count 304 K/UL (150-450) Mean Platelet Volume 4.7 FL (6.5-10.1) L Neutrophils (%) (Auto) 63.1 % (45.0-75.0) Lymphocytes (%) (Auto) 24.0 % (20.0-45.0) Monocytes (%) (Auto) 7.0 % (1.0-10.0) Eosinophils (%) (Auto) 5.3 % (0.0-3.0) H Basophils (%) (Auto) 0.6 % (0.0-2.0) Sodium Level 139 MMOL/L (136-145) Potassium Level 4.0 MMOL/L (3.5-5.1) Chloride Level 101 MMOL/L (98-107) Carbon Dioxide Level 32 MMOL/L (21-32) Anion Gap 6 mmol/L (5-15) Blood Urea Nitrogen 35 mg/dL (7-18) H Creatinine 0.8 MG/DL (0.55-1.30) Estimat Glomerular Filtration Rate > 60 mL/min (>60) Glucose Level 103 MG/DL (74-106) Calcium Level 8.7 MG/DL (8.5-10.1) Nicole Graves MD Sep 16, 2019 12:16
--- NOTE | 2019-09-16 13:40 | Surgery Progress Note ---
Surgery Progress Note Subjective Procedure Performed Tracheostomy Additional Comments stable no acute events labs reviewed Objective Last 24 Hour Vital Signs Date Time Temp Pulse Resp B/P (MAP) Pulse Ox O2 Delivery O2 Flow Rate FiO2 09/16/19 13:26 72 17 30 09/16/19 11:03 72 18 30 09/16/19 09:23 73 15 94 30 71 14 30 09/16/19 09:00 116/51 09/16/19 08:00 30 09/16/19 08:00 74 09/16/19 08:00 97.3 72 19 116/56 (76) 96 09/16/19 08:00 Mechanical Ventilator Mechanical Ventilator 09/16/19 07:34 74 17 30 09/16/19 05:30 73 19 30 09/16/19 04:00 Mechanical Ventilator Mechanical Ventilator Mechanical Ventilator 09/16/19 04:00 98.7 74 18 131/64 (86) 95 09/16/19 04:00 30 09/16/19 03:39 76 09/16/19 00:00 99.0 77 20 129/64 (85) 95 09/16/19 00:00 30 09/16/19 00:00 Mechanical Ventilator Mechanical Ventilator Mechanical Ventilator 09/15/19 23:35 76 22 96 Mechanical Ventilator 30 78 24 30 09/15/19 23:29 76 09/15/19 20:00 Mechanical Ventilator Mechanical Ventilator Mechanical Ventilator 09/15/19 20:00 30 09/15/19 20:00 98.6 72 19 105/63 (77) 95 09/15/19 19:30 72 18 30 09/15/19 19:11 72 09/15/19 17:05 71 20 30 09/15/19 16:00 30 09/15/19 16:00 Mechanical Ventilator Mechanical Ventilator Mechanical Ventilator 09/15/19 16:00 98.0 77 17 118/54 (75) 96 09/15/19 15:40 75 16 30 09/15/19 15:09 73 I&O Intake and Output 09/15/19 09/16/19 19:00 07:00 Intake Total 720 ml 805 ml Output Total 800 ml Balance -80 ml 805 ml Free Water 60 ml 200 ml Tube Feeding 660 ml 605 ml Output Urine Total 800 ml # Bowel Movements 3 2 Dressing: dry Wound: other Drains: other Cardiovascular: RSR Respiratory: decreased breath sounds Abdomen: soft, non-tender, present bowel sounds Extremities: no cyanosis Laboratory Tests Test 09/16/19 03:10 White Blood Count 7.0 K/UL (4.8-10.8) Red Blood Count 3.07 M/UL (4.70-6.10) L Hemoglobin 9.7 G/DL (14.2-18.0) L Hematocrit 27.9 % (42.0-52.0) L Mean Corpuscular Volume 91 FL (80-99) Mean Corpuscular Hemoglobin 31.6 PG (27.0-31.0) H Mean Corpuscular Hemoglobin Concent 34.7 G/DL (32.0-36.0) Red Cell Distribution Width 13.7 % (11.6-14.8) Platelet Count 304 K/UL (150-450) Mean Platelet Volume 4.7 FL (6.5-10.1) L Neutrophils (%) (Auto) 63.1 % (45.0-75.0) Lymphocytes (%) (Auto) 24.0 % (20.0-45.0) Monocytes (%) (Auto) 7.0 % (1.0-10.0) Eosinophils (%) (Auto) 5.3 % (0.0-3.0) H Basophils (%) (Auto) 0.6 % (0.0-2.0) Sodium Level 139 MMOL/L (136-145) Potassium Level 4.0 MMOL/L (3.5-5.1) Chloride Level 101 MMOL/L (98-107) Carbon Dioxide Level 32 MMOL/L (21-32) Anion Gap 6 mmol/L (5-15) Blood Urea Nitrogen 35 mg/dL (7-18) H Creatinine 0.8 MG/DL (0.55-1.30) Estimat Glomerular Filtration Rate > 60 mL/min (>60) Glucose Level 103 MG/DL (74-106) Calcium Level 8.7 MG/DL (8.5-10.1) Plan Problems: (1) Nosocomial pneumonia (2) AUREA (acute kidney injury) (3) Cardiomyopathy (4) Obesity (BMI 30.0-34.9) (5) DMII (diabetes mellitus, type 2) (6) Cardiac LV ejection fraction 40% (7) Pulmonary edema (8) Cardiopulmonary arrest Assessment & Plan: Cardiopulmonary arrest septic requiring urgent emergency line placement for pressors and fluids and meds Please see procedure report Full examination performed no other surgical issues found at this time etiology unknown likely surgical in nature Antibiotics fluids Pressors Vent weaning trials right groin site okay. no hematoma. no bleeding left arm picc okay NG tube is present in good position. A partial left lateral decubitus view of the abdomen performed as well as a supine view. The left lateral decubitus view is not adequate as the area of interest which would be the nondependent right side of the abdomen, which is the area of interest was not imaged and is beyond the field-of -view of the x-ray. Bowel gas pattern appears nonobstructive on the basis of the partial images obtained. off pressors labs reviewed cont tube feeds Unable to wean from ventilator. Labs noted ABG noted imaging reviewed cont weaning. if possible extubate otherwise will consider trach extubated improving monitor in ICU for now downgrade re-intubated on vent support on pressors wean pressors will monitor * Interval removal of endotracheal tube. NG tube and left arm PICC line remain in place. * Apparent worsening of aeration with increasing hazy opacities in the bilateral lower lungs which may in part be related to artifact from patient positioning however layering bilateral pleural effusions and bilateral airspace disease not excluded. Follow-up recommended. trach today does not seem to be able to wean s/p trach labs noted exam stable looks more comfortable now downgrade (9) Respiratory failure (10) History of hypertension (11) COPD (chronic obstructive pulmonary disease) (12) CAD (coronary artery disease) (13) Atrial fibrillation (14) Dementia with behavioral disturbance (15) Upper respiratory infection (16) Acute respiratory failure (17) Dyspnea (18) UTI (urinary tract infection) Prosper Hummel Sep 16, 2019 13:40
[2019-09-16 16:00] VITALS: BP 131/75
--- NOTE | 2019-09-16 19:24 | Nephrology Progress Note ---
Assessment/Plan Problem List: (1) AUREA (acute kidney injury) Assessment: Serum creatinine rising (2) Cardiopulmonary arrest (3) Respiratory failure (4) Cardiomyopathy (5) Obesity (BMI 30.0-34.9) (6) DMII (diabetes mellitus, type 2) Assessment Acute Renal Failure : AUREA Most likely due to cardiorespiratory arrest and episode of hypotension. Patient also has cardiomyopathy with Ej Fx of 40 % on admission Obese : BMI 34.4 ? DM Other Dx (1) Cardiopulmonary arrest (2) Nosocomial pneumonia (3) Acute respiratory failure (4) COPD (chronic obstructive pulmonary disease) (5) Atrial fibrillation (6) Dementia with behavioral disturbance (7) CAD (coronary artery disease) Plan Had tracheostomy September 09 Today's labs reviewed D5 W IV fluids for hypernatremia as needed pressors are off now patient's condition somewhat more stable In ICU He is intubated ventilator, weaning is being tried His blood pressure is more stable Overall he is still doing poorly Adjust blood pressure medications Stress dose of steroids which we will start tapering today Previously Monitor renal parameters. Serum creatinine improved Monitor urine output. Urine output improved. Avoid nephrotoxics. Weaning as possible. Remains intubated at this time. Correct electrolyte imbalances. Change tube feeding to Glucerna. Subjective ROS Limited/Unobtainable: Yes - A- 84.9 times otolaryngolo Objective Objective Last 24 Hour Vital Signs Date Time Temp Pulse Resp B/P (MAP) Pulse Ox O2 Delivery O2 Flow Rate FiO2 09/16/19 16:57 71 15 30 09/16/19 16:00 Mechanical Ventilator Mechanical Ventilator 09/16/19 16:00 30 09/16/19 16:00 97.0 74 21 131/75 (93) 95 09/16/19 15:42 70 09/16/19 15:10 76 21 30 09/16/19 13:26 72 17 30 09/16/19 12:19 75 09/16/19 12:00 30 09/16/19 12:00 Mechanical Ventilator Mechanical Ventilator 09/16/19 12:00 97.9 74 19 115/54 (74) 95 09/16/19 11:03 72 18 30 09/16/19 09:23 73 15 94 30 71 14 30 09/16/19 09:00 116/51 09/16/19 08:00 30 09/16/19 08:00 74 09/16/19 08:00 97.3 72 19 116/56 (76) 96 09/16/19 08:00 Mechanical Ventilator Mechanical Ventilator 09/16/19 07:34 74 17 30 09/16/19 05:30 73 19 30 09/16/19 04:00 Mechanical Ventilator Mechanical Ventilator Mechanical Ventilator 09/16/19 04:00 98.7 74 18 131/64 (86) 95 09/16/19 04:00 30 09/16/19 03:39 76 09/16/19 00:00 99.0 77 20 129/64 (85) 95 09/16/19 00:00 30 09/16/19 00:00 Mechanical Ventilator Mechanical Ventilator Mechanical Ventilator 09/15/19 23:35 76 22 96 Mechanical Ventilator 30 78 24 30 09/15/19 23:29 76 09/15/19 20:00 Mechanical Ventilator Mechanical Ventilator Mechanical Ventilator 09/15/19 20:00 30 09/15/19 20:00 98.6 72 19 105/63 (77) 95 09/15/19 19:30 72 18 30 Intake and Output 09/15/19 09/16/19 19:00 07:00 Intake Total 720 ml 860 ml Output Total 800 ml Balance -80 ml 860 ml Free Water 60 ml 200 ml Tube Feeding 660 ml 660 ml Output Urine Total 800 ml # Bowel Movements 3 2 Laboratory Tests 09/16/19 03:10: White Blood Count 7.0, Red Blood Count 3.07L, Hemoglobin 9.7L, Hematocrit 27.9L , Mean Corpuscular Volume 91, Mean Corpuscular Hemoglobin 31.6H, Mean Corpuscular Hemoglobin Concent 34.7, Red Cell Distribution Width 13.7, Platelet Count 304, Mean Platelet Volume 4.7L, Neutrophils (%) (Auto) 63.1, Lymphocytes ( %) (Auto) 24.0, Monocytes (%) (Auto) 7.0, Eosinophils (%) (Auto) 5.3H, Basophils (%) (Auto) 0.6, Sodium Level 139, Potassium Level 4.0, Chloride Level 101, Carbon Dioxide Level 32, Anion Gap 6, Blood Urea Nitrogen 35H, Creatinine 0.8, Estimat Glomerular Filtration Rate > 60, Glucose Level 103, Calcium Level 8.7 Height (Feet): 5 Height (Inches): 5.00 Weight (Pounds): 184 General Appearance: no apparent distress Neck: other - Trached and vent Cardiovascular: normal rate Respiratory/Chest: decreased breath sounds Abdomen: soft Objective no change Yunior Sexton MD Sep 16, 2019 19:24
[2019-09-16 20:00] VITALS: BP 135/72
[2019-09-16] MEDS: Dyna-Hex 2% Top Sol 2oz TOPIC SCH (21:26)
[2019-09-17] VITALS: BP 153/73
[2019-09-17 04:00] VITALS: BP 152/83
[2019-09-17] MEDS ORDERED: cefOXitin 1gm Inj ONE (07:06)
[2019-09-17 07:23] LABS: BASOPHILS % (AUTO) 0.7 % (0.0-2.0); EOSINOPHILS % (AUTO) 3.8 % (0.0-3.0); HEMATOCRIT 28.5 % (42.0-52.0); HEMOGLOBIN 9.7 G/DL (14.2-18.0); LYMPHOCYTES % (AUTO) 26.1 % (20.0-45.0); MEAN CORPUSCULAR VOLUME 92 FL (80-99); MONOCYTES % (AUTO) 7.5 % (1.0-10.0); NEUTROPHILS % (AUTO) 61.9 % (45.0-75.0); PLATELET COUNT 270 K/UL (150-450); RED BLOOD COUNT 3.11 M/UL (4.70-6.10); RED CELL DISTRIBUTION WIDTH 13.9 % (11.6-14.8)
--- NOTE | 2019-09-17 07:30 | Progress Note ---
DATE: 09/16/2019 CARDIOLOGY PROGRESS NOTE SUBJECTIVE: The patient is on ventilator support. Tracheostomy was completed on September 10, 2019. The patient is to undergo PEG placement after his clopidogrel is on hold for 72 hours to decrease bleeding risk. Weaning is ongoing. PHYSICAL EXAMINATION: LUNGS: Bilateral breath sounds. HEART: Regular rhythm and rate. Normal S1 and S2. ABDOMEN: Soft. EXTREMITIES: Trace edema. IMPRESSION: Bleeding would be high risk as the patient has been extubated and reintubated three times with two episodes of full arrest. The patient has ischemic cardiomyopathy with reduced ejection fraction. The patient has paroxysmal atrial fibrillation now in sinus rhythm episodes and rate controlled on amiodarone. Hypertension is stable. PLAN: 1. Continue amiodarone. 2. Monitor volume status. 3. Diuresis based on clinical parameters on a daily basis. 4. Continue to hold Plavix/clopidogrel. 5. Await PEG placement. Saeed Sim M.D. DR: Bruno JOB#: [id number] CC:
[2019-09-17 07:52] LABS: ANION GAP 10 mmol/L (5-15); BLOOD UREA NITROGEN 29 mg/dL (7-18); CALCIUM 6.5 MG/DL (8.5-10.1); CARBON DIOXIDE 23 MMOL/L (21-32); CHLORIDE 114 MMOL/L (98-107); CREATININE 0.6 MG/DL (0.55-1.30); POTASSIUM 3.2 MMOL/L (3.5-5.1); SODIUM 147 MMOL/L (136-145)
[2019-09-17 08:00] VITALS: BP 129/63
--- NOTE | 2019-09-17 08:43 | Pre-Procedure Note/Attestation ---
Pre-Procedure Note/Attestation Complete Prior to Procedure Planned Procedure: not applicable Procedure Narrative: egd/peg Indications for Procedure Pre-Operative Diagnosis: dysphagia Attestation I attest that I discussed the nature of the procedure; its benefits; risks and complications; and alternatives (and the risks and benefits of such alternatives ), prior to the procedure, with the patient (or the patient's legal termite control service representative). I attest that, if there was a reasonable possibility of needing a blood transfusion, the patient (or the patient's legal termite control service representative) was given the [facility] standardized written summary, pursuant to the [place] Blood Safety Act ([place] Health and Safety Code # 1645, as amended). I attest that I re-evaluated the patient just prior to the surgery and that there has been no change in the patient's H&P, except as documented below: Valente Rosado MD Sep 17, 2019 08:43
--- NOTE | 2019-09-17 08:45 | General Progress Note ---
Assessment/Plan Problem List: (1) UTI (urinary tract infection) ICD Codes: N39.0 - Urinary tract infection, site not specified SNOMED: 87003098 (2) Acute respiratory failure ICD Codes: J96.00 - Acute respiratory failure, unspecified whether with hypoxia or hypercapnia SNOMED: 69262397 (3) Upper respiratory infection ICD Codes: J06.9 - Acute upper respiratory infection, unspecified SNOMED: 76533652 (4) Dementia with behavioral disturbance ICD Codes: F03.91 - Unspecified dementia with behavioral disturbance SNOMED: 5370462528429 (5) Atrial fibrillation ICD Codes: I48.91 - Unspecified atrial fibrillation SNOMED: 93511134 (6) CAD (coronary artery disease) ICD Codes: I25.10 - Atherosclerotic heart disease of [place] coronary artery without angina pectoris SNOMED: 49835108 (7) COPD (chronic obstructive pulmonary disease) ICD Codes: J44.9 - Chronic obstructive pulmonary disease, unspecified SNOMED: 53919576 (8) History of hypertension ICD Codes: Z86.79 - Personal history of other diseases of the circulatory system SNOMED: 162356823 (9) Respiratory failure ICD Codes: J96.90 - Respiratory failure, unspecified, unspecified whether with hypoxia or hypercapnia SNOMED: 091591281 (10) DMII (diabetes mellitus, type 2) ICD Codes: E11.9 - Type 2 diabetes mellitus without complications SNOMED: 23729529 (11) Obesity (BMI 30.0-34.9) ICD Codes: E66.9 - Obesity, unspecified SNOMED: 593129764600589 (12) Anemia ICD Codes: D64.9 - Anemia, unspecified SNOMED: 738444915 Assessment/Plan: needs PEG d/w cardiology will hold Plavix and plan for Sunday patient needs GT unable to find family patient unable to sign consent primary team agreed with PEG placement Subjective ROS Limited/Unobtainable: No Allergies: Coded Allergies: No Known Allergies (Unverified , 06/03/17) Objective Last 24 Hour Vital Signs Date Time Temp Pulse Resp B/P (MAP) Pulse Ox O2 Delivery O2 Flow Rate FiO2 09/17/19 08:00 97.0 70 24 129/63 (85) 94 09/17/19 05:20 74 15 30 09/17/19 04:00 Mechanical Ventilator Mechanical Ventilator 09/17/19 04:00 97.6 81 24 152/83 (106) 94 09/17/19 04:00 78 09/17/19 04:00 30 09/17/19 03:15 79 18 30 09/17/19 01:22 77 17 30 09/17/19 00:00 Mechanical Ventilator Mechanical Ventilator 09/17/19 00:00 30 09/17/19 00:00 97.9 72 18 153/73 (99) 94 09/16/19 23:55 64 14 30 09/16/19 23:28 70 09/16/19 22:22 14 17 94 Mechanical Ventilator 30 70 14 30 09/16/19 20:49 73 17 30 09/16/19 20:00 Mechanical Ventilator Mechanical Ventilator 09/16/19 20:00 98.1 74 21 135/72 (93) 94 09/16/19 20:00 30 09/16/19 19:33 73 09/16/19 16:57 71 15 30 09/16/19 16:00 Mechanical Ventilator Mechanical Ventilator 09/16/19 16:00 30 09/16/19 16:00 97.0 74 21 131/75 (93) 95 09/16/19 15:42 70 09/16/19 15:10 76 21 30 09/16/19 13:26 72 17 30 09/16/19 12:19 75 09/16/19 12:00 30 09/16/19 12:00 Mechanical Ventilator Mechanical Ventilator 09/16/19 12:00 97.9 74 19 115/54 (74) 95 09/16/19 11:03 72 18 30 09/16/19 09:23 73 15 94 30 71 14 30 09/16/19 09:00 116/51 Intake and Output 09/16/19 09/17/19 19:00 07:00 Intake Total 860 ml 660 ml Output Total 350 ml 400 ml Balance 510 ml 260 ml Tube Feeding 660 ml 660 ml Other 200 ml Output Urine Total 350 ml 400 ml # Voids 1 # Bowel Movements 1 Laboratory Tests 09/17/19 03:30: White Blood Count 7.0, Red Blood Count 3.11L, Hemoglobin 9.7L, Hematocrit 28.5L , Mean Corpuscular Volume 92, Mean Corpuscular Hemoglobin 31.2H, Mean Corpuscular Hemoglobin Concent 34.1, Red Cell Distribution Width 13.9, Platelet Count 270, Mean Platelet Volume 5.3L, Neutrophils (%) (Auto) 61.9, Lymphocytes ( %) (Auto) 26.1, Monocytes (%) (Auto) 7.5, Eosinophils (%) (Auto) 3.8H, Basophils (%) (Auto) 0.7, Sodium Level 147H, Potassium Level 3.2L, Chloride Level 114H, Carbon Dioxide Level 23, Anion Gap 10, Blood Urea Nitrogen 29H, Creatinine 0.6, Estimat Glomerular Filtration Rate > 60, Glucose Level 61L, Calcium Level 6.5#L Height (Feet): 5 Height (Inches): 5.00 Weight (Pounds): 215 General Appearance: lethargic EENT: normal ENT inspection Neck: normal alignment Cardiovascular: normal rate Respiratory/Chest: decreased breath sounds Abdomen: normal bowel sounds, non tender, soft Extremities: non-tender Valente Rosado MD Sep 17, 2019 08:45
[2019-09-17] MEDS: Pantoprazole Inj IVP SCH ×2 (09:00→20:27)
[2019-09-17] MEDS: Heparin 5000 units/ml inj SUBQ SCH ×2 (09:00→20:28)
[2019-09-17] MEDS: Bactrim-DS 1 tab ORAL SCH ×2 (09:00→17:24)
[2019-09-17] MEDS ORDERED: NS 275ml IVLG ONE (09:10)
[2019-09-17] MEDS: Amiodarone 200mg tab NG SCH (09:45)
[2019-09-17] MEDS: Lisinopril 20mg tab NG SCH (09:46)
--- NOTE | 2019-09-17 09:53 | Surgery Progress Note ---
Surgery Progress Note Subjective Procedure Performed Tracheostomy Additional Comments planned peg today eyes open on vent support seemingly comfortable tracking but not responsive to commands Objective Last 24 Hour Vital Signs Date Time Temp Pulse Resp B/P (MAP) Pulse Ox O2 Delivery O2 Flow Rate FiO2 09/17/19 08:00 Mechanical Ventilator Mechanical Ventilator 09/17/19 08:00 30 09/17/19 08:00 97.0 70 24 129/63 (85) 94 09/17/19 07:46 69 09/17/19 07:05 71 14 30 09/17/19 05:20 74 15 30 09/17/19 04:00 Mechanical Ventilator Mechanical Ventilator 09/17/19 04:00 97.6 81 24 152/83 (106) 94 09/17/19 04:00 78 09/17/19 04:00 30 09/17/19 03:15 79 18 30 09/17/19 01:22 77 17 30 09/17/19 00:00 Mechanical Ventilator Mechanical Ventilator 09/17/19 00:00 30 09/17/19 00:00 97.9 72 18 153/73 (99) 94 09/16/19 23:55 64 14 30 09/16/19 23:28 70 09/16/19 22:22 14 17 94 Mechanical Ventilator 30 70 14 30 09/16/19 20:49 73 17 30 09/16/19 20:00 Mechanical Ventilator Mechanical Ventilator 09/16/19 20:00 98.1 74 21 135/72 (93) 94 09/16/19 20:00 30 09/16/19 19:33 73 09/16/19 16:57 71 15 30 09/16/19 16:00 Mechanical Ventilator Mechanical Ventilator 09/16/19 16:00 30 09/16/19 16:00 97.0 74 21 131/75 (93) 95 09/16/19 15:42 70 09/16/19 15:10 76 21 30 09/16/19 13:26 72 17 30 09/16/19 12:19 75 09/16/19 12:00 30 09/16/19 12:00 Mechanical Ventilator Mechanical Ventilator 09/16/19 12:00 97.9 74 19 115/54 (74) 95 09/16/19 11:03 72 18 30 I&O Intake and Output 09/16/19 09/17/19 19:00 07:00 Intake Total 860 ml 660 ml Output Total 350 ml 400 ml Balance 510 ml 260 ml Tube Feeding 660 ml 660 ml Other 200 ml Output Urine Total 350 ml 400 ml # Voids 1 # Bowel Movements 1 Dressing: saturated Wound: clean Drains: other Cardiovascular: RSR Respiratory: decreased breath sounds Abdomen: soft, present bowel sounds Extremities: edema, no tenderness, no cyanosis Laboratory Tests Test 09/17/19 03:30 White Blood Count 7.0 K/UL (4.8-10.8) Red Blood Count 3.11 M/UL (4.70-6.10) L Hemoglobin 9.7 G/DL (14.2-18.0) L Hematocrit 28.5 % (42.0-52.0) L Mean Corpuscular Volume 92 FL (80-99) Mean Corpuscular Hemoglobin 31.2 PG (27.0-31.0) H Mean Corpuscular Hemoglobin Concent 34.1 G/DL (32.0-36.0) Red Cell Distribution Width 13.9 % (11.6-14.8) Platelet Count 270 K/UL (150-450) Mean Platelet Volume 5.3 FL (6.5-10.1) L Neutrophils (%) (Auto) 61.9 % (45.0-75.0) Lymphocytes (%) (Auto) 26.1 % (20.0-45.0) Monocytes (%) (Auto) 7.5 % (1.0-10.0) Eosinophils (%) (Auto) 3.8 % (0.0-3.0) H Basophils (%) (Auto) 0.7 % (0.0-2.0) Sodium Level 147 MMOL/L (136-145) H Potassium Level 3.2 MMOL/L (3.5-5.1) L Chloride Level 114 MMOL/L (98-107) H Carbon Dioxide Level 23 MMOL/L (21-32) Anion Gap 10 mmol/L (5-15) Blood Urea Nitrogen 29 mg/dL (7-18) H Creatinine 0.6 MG/DL (0.55-1.30) Estimat Glomerular Filtration Rate > 60 mL/min (>60) Glucose Level 61 MG/DL (74-106) L Calcium Level 6.5 MG/DL (8.5-10.1) #L Plan Problems: (1) Nosocomial pneumonia (2) AUREA (acute kidney injury) (3) Cardiomyopathy (4) Obesity (BMI 30.0-34.9) (5) DMII (diabetes mellitus, type 2) (6) Cardiac LV ejection fraction 40% (7) Pulmonary edema (8) Cardiopulmonary arrest Assessment & Plan: Cardiopulmonary arrest septic requiring urgent emergency line placement for pressors and fluids and meds Please see procedure report Full examination performed no other surgical issues found at this time etiology unknown likely surgical in nature Antibiotics fluids Pressors Vent weaning trials right groin site okay. no hematoma. no bleeding left arm picc okay NG tube is present in good position. A partial left lateral decubitus view of the abdomen performed as well as a supine view. The left lateral decubitus view is not adequate as the area of interest which would be the nondependent right side of the abdomen, which is the area of interest was not imaged and is beyond the field-of -view of the x-ray. Bowel gas pattern appears nonobstructive on the basis of the partial images obtained. off pressors labs reviewed cont tube feeds Unable to wean from ventilator. Labs noted ABG noted imaging reviewed cont weaning. if possible extubate otherwise will consider trach extubated improving monitor in ICU for now downgrade re-intubated on vent support on pressors wean pressors will monitor * Interval removal of endotracheal tube. NG tube and left arm PICC line remain in place. * Apparent worsening of aeration with increasing hazy opacities in the bilateral lower lungs which may in part be related to artifact from patient positioning however layering bilateral pleural effusions and bilateral airspace disease not excluded. Follow-up recommended. trach today does not seem to be able to wean s/p trach labs noted exam stable looks more comfortable now downgrade PEG planned (9) Respiratory failure (10) History of hypertension (11) COPD (chronic obstructive pulmonary disease) (12) CAD (coronary artery disease) (13) Atrial fibrillation (14) Dementia with behavioral disturbance (15) Upper respiratory infection (16) Acute respiratory failure (17) Dyspnea (18) UTI (urinary tract infection) Prosper Hummel Sep 17, 2019 09:53
[2019-09-17] MEDS ORDERED: cefOXitin 1gm Inj IVP ONE (09:59)
[2019-09-17] MEDS ORDERED: LR 1000ml ONE (10:01)
[2019-09-17] MEDS ORDERED: Lidocaine 1% MPF 10mg/ml 5ml ONE (10:01)
[2019-09-17] MEDS ORDERED: Propofol 200mg/20ml IV ONE (10:01)
--- NOTE | 2019-09-17 10:15 | Endoscopy Procedure Note ---
Endoscopy Procedure Note General Indication for Procedure: dysphagia Procedures Performed: EGD, PEG Operative Findings/Diagnosis: same Specimen: none Pt Tolerated Procedure Well: Yes Estimated Blood Loss: none Anesthesia Anesthesiologist: david Anesthesia: MAC Inserted Devices Implant(s) used?: No GI Core Measures 50 yrs or older w/o bx or poly: Not Applicable 10yrs. F/U recommended: Not Applicable Valente Rosado MD Sep 17, 2019 10:15
--- NOTE | 2019-09-17 10:22 | Immediate Post-Op Evaluation ---
Immediate Post-Op Evalulation Immediate Post-Op Evalulation Procedure: EGD/PEG Date of Evaluation: Sep 17, 2019 Time of Evaluation: 10:38 IV Fluids: 200 LR Blood Products: 0 Estimated Blood Loss: 3 Urinary Output: 0 Blood Pressure Systolic: 123 Blood Pressure Diastolic: 72 Pulse Rate: 71 Respiratory Rate: 20 - Mech Vent O2 Sat by Pulse Oximetry: 98 Temperature (Fahrenheit): 98.4 Pain Score (1-10): 1 Nausea: No Vomiting: No Patient Status: no response, patent, ventilated, none Hydration Status: adequate Dru Gram Ancef IV Given Within 1 Hr of Incision: Yes Time Given: 10:00 Russell Woody MD Sep 17, 2019 10:21
--- NOTE | 2019-09-17 10:23 | 48 Hour Post Anesthesia Eval ---
Post Anesthesia Evaluation Procedure: EGD/PEG Date of Evaluation: Sep 17, 2019 Time of Evaluation: 12:42 Blood Pressure Systolic: 117 0: 52 Pulse Rate: 73 Respiratory Rate: 20 - Mech Vent Temperature (Fahrenheit): 98.4 O2 Sat by Pulse Oximetry: 98 Airway: patent Nausea: No Vomiting: No Pain Intensity: 1 Hydration Status: adequate Cardiopulmonary Status: Stable Mental Status/LOC: patient returned to baseline Follow-up Care/Observations: 0 Post-Anesthesia Complications: 0 Follow-up care needed: N/A Russell Woody MD Sep 17, 2019 10:23
[2019-09-17 12:00] VITALS: BP 153/70
[2019-09-17] MEDS: Colistin for inhalation INH SCH ×2 (12:25→21:12)
--- NOTE | 2019-09-17 12:29 | Nephrology Progress Note ---
Assessment/Plan Problem List: (1) AUREA (acute kidney injury) Assessment: Serum creatinine rising (2) Cardiopulmonary arrest (3) Respiratory failure (4) Cardiomyopathy (5) Obesity (BMI 30.0-34.9) (6) DMII (diabetes mellitus, type 2) Assessment Acute Renal Failure : AUREA Most likely due to cardiorespiratory arrest and episode of hypotension. Patient also has cardiomyopathy with Ej Fx of 40 % on admission Obese : BMI 34.4 ? DM Other Dx (1) Cardiopulmonary arrest (2) Nosocomial pneumonia (3) Acute respiratory failure (4) COPD (chronic obstructive pulmonary disease) (5) Atrial fibrillation (6) Dementia with behavioral disturbance (7) CAD (coronary artery disease) Plan Had tracheostomy September 09 Today's labs reviewed D5 W IV fluids for hypernatremia as needed pressors are off now patient's condition somewhat more stable In ICU He is intubated ventilator, weaning is being tried His blood pressure is more stable Overall he is still doing poorly Adjust blood pressure medications Stress dose of steroids which we will start tapering today Previously Monitor renal parameters. Serum creatinine improved Monitor urine output. Urine output improved. Avoid nephrotoxics. Weaning as possible. Remains intubated at this time. Correct electrolyte imbalances. Change tube feeding to Glucerna. Subjective ROS Limited/Unobtainable: Yes Objective Objective Last 24 Hour Vital Signs Date Time Temp Pulse Resp B/P (MAP) Pulse Ox O2 Delivery O2 Flow Rate FiO2 09/17/19 12:23 87 20 94 Mechanical Ventilator 30 70 14 30 09/17/19 12:00 Mechanical Ventilator Mechanical Ventilator 09/17/19 12:00 30 09/17/19 10:23 73 20 98 09/17/19 10:21 71 20 98 09/17/19 08:00 Mechanical Ventilator Mechanical Ventilator 09/17/19 08:00 30 09/17/19 08:00 97.0 70 24 129/63 (85) 94 09/17/19 07:46 69 09/17/19 07:05 71 14 30 09/17/19 05:20 74 15 30 09/17/19 04:00 Mechanical Ventilator Mechanical Ventilator 09/17/19 04:00 97.6 81 24 152/83 (106) 94 09/17/19 04:00 78 09/17/19 04:00 30 09/17/19 03:15 79 18 30 09/17/19 01:22 77 17 30 09/17/19 00:00 Mechanical Ventilator Mechanical Ventilator 09/17/19 00:00 30 09/17/19 00:00 97.9 72 18 153/73 (99) 94 09/16/19 23:55 64 14 30 09/16/19 23:28 70 09/16/19 22:22 14 17 94 Mechanical Ventilator 30 70 14 30 09/16/19 20:49 73 17 30 09/16/19 20:00 Mechanical Ventilator Mechanical Ventilator 09/16/19 20:00 98.1 74 21 135/72 (93) 94 09/16/19 20:00 30 09/16/19 19:33 73 09/16/19 16:57 71 15 30 09/16/19 16:00 Mechanical Ventilator Mechanical Ventilator 09/16/19 16:00 30 09/16/19 16:00 97.0 74 21 131/75 (93) 95 09/16/19 15:42 70 09/16/19 15:10 76 21 30 09/16/19 13:26 72 17 30 Intake and Output 09/16/19 09/17/19 19:00 07:00 Intake Total 860 ml 660 ml Output Total 350 ml 400 ml Balance 510 ml 260 ml Tube Feeding 660 ml 660 ml Other 200 ml Output Urine Total 350 ml 400 ml # Voids 1 # Bowel Movements 1 Laboratory Tests 09/17/19 03:30: White Blood Count 7.0, Red Blood Count 3.11L, Hemoglobin 9.7L, Hematocrit 28.5L , Mean Corpuscular Volume 92, Mean Corpuscular Hemoglobin 31.2H, Mean Corpuscular Hemoglobin Concent 34.1, Red Cell Distribution Width 13.9, Platelet Count 270, Mean Platelet Volume 5.3L, Neutrophils (%) (Auto) 61.9, Lymphocytes ( %) (Auto) 26.1, Monocytes (%) (Auto) 7.5, Eosinophils (%) (Auto) 3.8H, Basophils (%) (Auto) 0.7, Sodium Level 147H, Potassium Level 3.2L, Chloride Level 114H, Carbon Dioxide Level 23, Anion Gap 10, Blood Urea Nitrogen 29H, Creatinine 0.6, Estimat Glomerular Filtration Rate > 60, Glucose Level 61L, Calcium Level 6.5#L Height (Feet): 5 Height (Inches): 5.00 Weight (Pounds): 215 General Appearance: no apparent distress EENT: other - trached- has NGT Cardiovascular: normal rate Respiratory/Chest: decreased breath sounds Abdomen: soft, distended Objective no change Yunior Sexton MD Sep 17, 2019 12:29
--- NOTE | 2019-09-17 12:30 | Pulmonolgy Critical Care Note ---
Critical Care - Asmt/Plan Problems: (1) Acute respiratory failure Assessment & Plan: got reintubated (2) Dementia with behavioral disturbance (3) Atrial fibrillation Assessment & Plan: controlled (4) COPD (chronic obstructive pulmonary disease) (5) History of hypertension (6) Cardiopulmonary arrest (7) Cardiac LV ejection fraction 40% (8) DMII (diabetes mellitus, type 2) (9) Nosocomial pneumonia Respiratory: monitor respiratory rate, adjust FIO2 Cardiac: start pressors, continue to monitor HR/BP Renal: F/U I&O, check electrolytes Gastrointestinal: continue feedings/current rate Endocrine: monitor blood sugar Hematologic: monitor H/H, transfuse if hgb<8.5 Neurologic: PRN Ativan, PRN Morphine, keep patient comfortable Affect: PRN ativan Notes Reviewed: rate supervisor, cardio, renal Discussed with: nurses, consultants, case specialistblogs manager - Objective Last 24 Hour Vital Signs Date Time Temp Pulse Resp B/P (MAP) Pulse Ox O2 Delivery O2 Flow Rate FiO2 09/17/19 12:23 87 20 94 Mechanical Ventilator 30 70 14 30 09/17/19 12:00 Mechanical Ventilator Mechanical Ventilator 09/17/19 12:00 30 09/17/19 10:23 73 20 98 09/17/19 10:21 71 20 98 09/17/19 08:00 Mechanical Ventilator Mechanical Ventilator 09/17/19 08:00 30 09/17/19 08:00 97.0 70 24 129/63 (85) 94 09/17/19 07:46 69 09/17/19 07:05 71 14 30 09/17/19 05:20 74 15 30 09/17/19 04:00 Mechanical Ventilator Mechanical Ventilator 09/17/19 04:00 97.6 81 24 152/83 (106) 94 09/17/19 04:00 78 09/17/19 04:00 30 09/17/19 03:15 79 18 30 09/17/19 01:22 77 17 30 09/17/19 00:00 Mechanical Ventilator Mechanical Ventilator 09/17/19 00:00 30 09/17/19 00:00 97.9 72 18 153/73 (99) 94 09/16/19 23:55 64 14 30 09/16/19 23:28 70 09/16/19 22:22 14 17 94 Mechanical Ventilator 30 70 14 30 4/14/20 20:49 73 17 30 09/16/19 20:00 Mechanical Ventilator Mechanical Ventilator 09/16/19 20:00 98.1 74 21 135/72 (93) 94 09/16/19 20:00 30 09/16/19 19:33 73 09/16/19 16:57 71 15 30 09/16/19 16:00 Mechanical Ventilator Mechanical Ventilator 09/16/19 16:00 30 09/16/19 16:00 97.0 74 21 131/75 (93) 95 09/16/19 15:42 70 09/16/19 15:10 76 21 30 09/16/19 13:26 72 17 30 Status: awake Condition: critical Neck: trach Lungs: rales Heart: HR/BP stable Abdomen: feeding tube Extremities: no C/C/E Critical Care - Subjective ROS Limited/Unobtainable: Yes I&O: Intake and Output 09/16/19 09/17/19 19:00 07:00 Intake Total 860 ml 660 ml Output Total 350 ml 400 ml Balance 510 ml 260 ml Tube Feeding 660 ml 660 ml Other 200 ml Output Urine Total 350 ml 400 ml # Voids 1 # Bowel Movements 1 Labs: Laboratory Tests Test 09/17/19 03:30 White Blood Count 7.0 K/UL (4.8-10.8) Red Blood Count 3.11 M/UL (4.70-6.10) L Hemoglobin 9.7 G/DL (14.2-18.0) L Hematocrit 28.5 % (42.0-52.0) L Mean Corpuscular Volume 92 FL (80-99) Mean Corpuscular Hemoglobin 31.2 PG (27.0-31.0) H Mean Corpuscular Hemoglobin Concent 34.1 G/DL (32.0-36.0) Red Cell Distribution Width 13.9 % (11.6-14.8) Platelet Count 270 K/UL (150-450) Mean Platelet Volume 5.3 FL (6.5-10.1) L Neutrophils (%) (Auto) 61.9 % (45.0-75.0) Lymphocytes (%) (Auto) 26.1 % (20.0-45.0) Monocytes (%) (Auto) 7.5 % (1.0-10.0) Eosinophils (%) (Auto) 3.8 % (0.0-3.0) H Basophils (%) (Auto) 0.7 % (0.0-2.0) Sodium Level 147 MMOL/L (136-145) H Potassium Level 3.2 MMOL/L (3.5-5.1) L Chloride Level 114 MMOL/L (98-107) H Carbon Dioxide Level 23 MMOL/L (21-32) Anion Gap 10 mmol/L (5-15) Blood Urea Nitrogen 29 mg/dL (7-18) H Creatinine 0.6 MG/DL (0.55-1.30) Estimat Glomerular Filtration Rate > 60 mL/min (>60) Glucose Level 61 MG/DL (74-106) L Calcium Level 6.5 MG/DL (8.5-10.1) #L Nicole Graves MD Sep 17, 2019 12:30
--- NOTE | 2019-09-17 13:55 | Hematology/Onc Progress Note ---
Assessment/Plan Assessment/Plan # Anemia of chronic disease due to underlying chronic medical issues, multifactorial v Gi bleed --> Anemia workup has been ordered, rule out gi bleed --> No evidence of hemolysis is noted, peripheral smear has been reviewed. --> Hgb goal >7. Transfuse prn. --> Epogen or iron at this time is not particularly indicated --> Medications have been reviewed --> low threshold for gi evaluation in case has occult + --> hgb trend 9.4-->10->9.7 # Respiratory failure is now s/p trach placed 09/10 --> s/p multple intubations and extubations --> as per surg recs # Developing PNA --> s/p rx, on abx colisitn and bactrim # Sepsis s/p Pneumonia (probable asp), Sp RX --> id aware # Hypomagnesemia. --> replete with mg as per nenal # paroxysmal atrial fibrillation. --> hold off on anticoag # Acute on chronic diastolic congestive heart failure mostly clinically compensated. --> as per cards recs # Severe protein-calorie malnutrition. 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 --> as per cards Appreciate consultation and candida Rn Subjective Allergies: Coded Allergies: No Known Allergies (Unverified , 06/03/17) All Systems: reviewed and negative except above Subjective 09/10 no events, is tolerating trach well, labs noted 09/[address], off plavix, for peg this /sun, hgb 10 09/16 for egd with peg as per gi, labs noted Objective Objective Current Medications Medications (Trade) Dose Ordered Sig/Amaris Route PRN Reason Start Time Stop Time Status Last Admin Dose Admin Acetaminophen (Tylenol) 650 mg Q4H PRN NG MILD PAIN/T>100.4 09/11/19 17:00 10/01/19 16:59 Amiodarone HCl (Cordarone) 200 mg DAILY NG 09/12/19 09:00 11/30/19 10:21 09/16/19 09:26 Chlorhexidine Gluconate (Kamila-Hex 2%) 1 applic DAILY@1999 TOPIC 09/11/19 20:00 09/17/19 19:59 4/14/20 21:26 Colistimethate Sodium (Colistin *inhalation use only*) 75 mg Q12HR@10,22 INH 09/11/19 22:00 09/19/19 23:59 09/17/19 12:25 Heparin Sodium (Porcine) (Heparin 5000 units/ml) 5,000 units EVERY 12 HOURS SUBQ 09/11/19 21:00 10/16/19 10:22 09/16/19 09:30 Hydralazine HCl (Apresoline) 25 mg Q6H PRN NG SBP above 160 09/11/19 18:00 12/10/19 17:59 09/12/19 23:46 Lisinopril (PriniviL) 20 mg DAILY NG 09/15/19 09:00 10/15/19 08:59 09/15/19 08:23 Pantoprazole (Protonix) 40 mg EVERY 12 HOURS IVP 09/11/19 21:00 10/01/19 10:22 09/17/19 09:00 Potassium Chloride 100 ml @ 50 mls/hr Q2H IVPB 09/17/19 12:45 09/17/19 16:44 09/17/19 12:43 Trimethoprim/ Sulfamethoxazole (Bactrim-DS) 1 tab TWICE A DAY ORAL 09/11/19 18:00 09/19/19 23:59 09/17/19 09:00 Last 24 Hour Vital Signs Date Time Temp Pulse Resp B/P (MAP) Pulse Ox O2 Delivery O2 Flow Rate FiO2 09/17/19 12:23 87 20 96 Mechanical Ventilator 30 86 16 30 09/17/19 12:00 Mechanical Ventilator Mechanical Ventilator 09/17/19 12:00 30 09/17/19 12:00 97.3 80 24 153/70 (97) 94 09/17/19 11:33 83 09/17/19 11:08 76 14 30 09/17/19 10:23 73 20 98 09/17/19 10:21 71 20 98 09/17/19 08:00 Mechanical Ventilator Mechanical Ventilator 09/17/19 08:00 30 09/17/19 08:00 97.0 70 24 129/63 (85) 94 09/17/19 07:46 69 09/17/19 07:05 71 14 30 09/17/19 05:20 74 15 30 09/17/19 04:00 Mechanical Ventilator Mechanical Ventilator 09/17/19 04:00 97.6 81 24 152/83 (106) 94 09/17/19 04:00 78 09/17/19 04:00 30 09/17/19 03:15 79 18 30 09/17/19 01:22 77 17 30 09/17/19 00:00 Mechanical Ventilator Mechanical Ventilator 09/17/19 00:00 30 09/17/19 00:00 97.9 72 18 153/73 (99) 94 09/16/19 23:55 64 14 30 09/16/19 23:28 70 09/16/19 22:22 14 17 94 Mechanical Ventilator 30 70 14 30 09/16/19 20:49 73 17 30 09/16/19 20:00 Mechanical Ventilator Mechanical Ventilator 09/16/19 20:00 98.1 74 21 135/72 (93) 94 09/16/19 20:00 30 09/16/19 19:33 73 09/16/19 16:57 71 15 30 09/16/19 16:00 Mechanical Ventilator Mechanical Ventilator 09/16/19 16:00 30 09/16/19 16:00 97.0 74 21 131/75 (93) 95 09/16/19 15:42 70 09/16/19 15:10 76 21 30 09/16/19 13:26 72 17 30 09/16/19 12:19 75 09/16/19 12:00 30 09/16/19 12:00 Mechanical Ventilator Mechanical Ventilator 09/16/19 12:00 97.9 74 19 115/54 (74) 95 09/16/19 11:03 72 18 30 09/16/19 09:23 73 15 94 30 71 14 30 09/16/19 09:00 116/51 09/16/19 08:00 30 09/16/19 08:00 74 09/16/19 08:00 97.3 72 19 116/56 (76) 96 09/16/19 08:00 Mechanical Ventilator Mechanical Ventilator 09/16/19 07:34 74 17 30 09/16/19 05:30 73 19 30 09/16/19 04:00 Mechanical Ventilator Mechanical Ventilator Mechanical Ventilator 09/16/19 04:00 98.7 74 18 131/64 (86) 95 09/16/19 04:00 30 09/16/19 03:39 76 09/16/19 00:00 99.0 77 20 129/64 (85) 95 09/16/19 00:00 30 09/16/19 00:00 Mechanical Ventilator Mechanical Ventilator Mechanical Ventilator 09/15/19 23:35 76 22 96 Mechanical Ventilator 30 78 24 30 09/15/19 23:29 76 09/15/19 20:00 Mechanical Ventilator Mechanical Ventilator Mechanical Ventilator 09/15/19 20:00 30 09/15/19 20:00 98.6 72 19 105/63 (77) 95 09/15/19 19:30 72 18 30 09/15/19 19:11 72 09/15/19 17:05 71 20 30 09/15/19 16:00 30 09/15/19 16:00 Mechanical Ventilator Mechanical Ventilator Mechanical Ventilator 09/15/19 16:00 98.0 77 17 118/54 (75) 96 09/15/19 15:40 75 16 30 09/15/19 15:09 73 Intake and Output 09/16/19 09/17/19 19:00 07:00 Intake Total 860 ml 660 ml Output Total 350 ml 400 ml Balance 510 ml 260 ml Tube Feeding 660 ml 660 ml Other 200 ml Output Urine Total 350 ml 400 ml # Voids 1 # Bowel Movements 1 Labs Test 09/15/19 04:00 09/16/19 03:10 09/17/19 03:30 White Blood Count 6.6 K/UL (4.8-10.8) 7.0 K/UL (4.8-10.8) 7.0 K/UL (4.8-10.8) Red Blood Count 3.25 M/UL (4.70-6.10) 3.07 M/UL (4.70-6.10) 3.11 M/UL (4.70-6.10) Hemoglobin 10.0 G/DL (14.2-18.0) 9.7 G/DL (14.2-18.0) 9.7 G/DL (14.2-18.0) Hematocrit 29.4 % (42.0-52.0) 27.9 % (42.0-52.0) 28.5 % (42.0-52.0) Mean Corpuscular Volume 91 FL (80-99) 91 FL (80-99) 92 FL (80-99) Mean Corpuscular Hemoglobin 30.8 PG (27.0-31.0) 31.6 PG (27.0-31.0) 31.2 PG (27.0-31.0) Mean Corpuscular Hemoglobin Concent 34.0 G/DL (32.0-36.0) 34.7 G/DL (32.0-36.0) 34.1 G/DL (32.0-36.0) Red Cell Distribution Width 13.5 % (11.6-14.8) 13.7 % (11.6-14.8) 13.9 % (11.6-14.8) Platelet Count 327 K/UL (150-450) 304 K/UL (150-450) 270 K/UL (150-450) Mean Platelet Volume 5.0 FL (6.5-10.1) 4.7 FL (6.5-10.1) 5.3 FL (6.5-10.1) Neutrophils (%) (Auto) 61.7 % (45.0-75.0) 63.1 % (45.0-75.0) 61.9 % (45.0-75.0) Lymphocytes (%) (Auto) 24.9 % (20.0-45.0) 24.0 % (20.0-45.0) 26.1 % (20.0-45.0) Monocytes (%) (Auto) 6.5 % (1.0-10.0) 7.0 % (1.0-10.0) 7.5 % (1.0-10.0) Eosinophils (%) (Auto) 6.0 % (0.0-3.0) 5.3 % (0.0-3.0) 3.8 % (0.0-3.0) Basophils (%) (Auto) 0.9 % (0.0-2.0) 0.6 % (0.0-2.0) 0.7 % (0.0-2.0) Sodium Level 140 MMOL/L (136-145) 139 MMOL/L (136-145) 147 MMOL/L (136-145) Potassium Level 4.0 MMOL/L (3.5-5.1) 4.0 MMOL/L (3.5-5.1) 3.2 MMOL/L (3.5-5.1) Chloride Level 104 MMOL/L (98-107) 101 MMOL/L (98-107) 114 MMOL/L (98-107) Carbon Dioxide Level 31 MMOL/L (21-32) 32 MMOL/L (21-32) 23 MMOL/L (21-32) Anion Gap 5 mmol/L (5-15) 6 mmol/L (5-15) 10 mmol/L (5-15) Blood Urea Nitrogen 28 mg/dL (7-18) 35 mg/dL (7-18) 29 mg/dL (7-18) Creatinine 0.7 MG/DL (0.55-1.30) 0.8 MG/DL (0.55-1.30) 0.6 MG/DL (0.55-1.30) Estimat Glomerular Filtration Rate > 60 mL/min (>60) > 60 mL/min (>60) > 60 mL/min (>60) Glucose Level 110 MG/DL (74-106) 103 MG/DL (74-106) 61 MG/DL (74-106) Calcium Level 8.6 MG/DL (8.5-10.1) 8.7 MG/DL (8.5-10.1) 6.5 MG/DL (8.5-10.1) Height (Feet): 5 Height (Inches): 5.00 Weight (Pounds): 215 Objective General Appearance: no apparent distress EENT: other - Remains intubated and on ventilator ++ trach Cardiovascular: normal rate Respiratory/Chest: decreased breath sounds Abdomen: soft Objective no change North Bailey MD Sep 17, 2019 13:55
--- NOTE | 2019-09-17 14:33 | Infectious Diseases Prog Note ---
Assessment/Plan Assessment/Plan ASSESSMENT: The patient is a 79-year-old male with: Multiple reintubations, likely cannot maintain airway now SP trach Low grade temp, SP No leukocytosis Developing PNA on rx 09/13 CXR: No significant interval change in hazy basilar opacities , likely combination of small pleural effusions and atelectasis/consolidation. 08/31 CXR: There is a hazy opacity at the left lung base again noted unchanged. Mild linear densities are seen in the right midlung which may be atelectasis or scarring. 09/02 CXR: Hazy basilar opacities, most likely due to overlying soft tissue shadows but hazy infiltrates also possible. If the latter, stable on the left, new or increased on the right. 09/04: Suspected pneumonia at the left lung base 09/05 CXR: Bilateral lower lobe infiltrates/atelectasis, similar to prior. 09/08 CXR: Hazy left greater than right basilar opacity and borderline interstitial congestive changes persist. Leukocytosis; Sp Fever , sp Sepsis, Sp Pneumonia (probable asp), Sp RX -08/28 CXR: Interval removal of endotracheal tube. NG tube and left arm PICC line remain in place. Apparent worsening of aeration with increasing hazy opacities in the bilateral lower lungs which may in part be related to artifact from patient positioning however layering bilateral pleural effusions and bilateral airspace disease not excluded. -08/13 Scx: MDR-ACB (Tygacil LANI: 4) - CXR: 1. Streaky opacities in the right lower lung may represent atelectasis versus scarring. Left basilar opacity may represent atelectasis. Component of pneumonia is not excluded. Pulmonary vasculature congestion. -08/01 ucx NTD -sp cx: nl anastacio Urinary tract infection, SP Rx 08/31 SP rapid response and reintubation 08/17 Sp code blue and intubation , extubated 08/27 07/31 Sp Code blue and intubation , sp extubation 08/12 , Hyperlipidemia. COPD. History of GERD. History of encephalopathy. History of CAD/DC. History of cardiomyopathy. Hypertension. PLAN: INH colistin and bactrim #8/10 09/09 SP colistin IV #6 -08/28 SP Colistin INH (MDR-ACB) # 14 - 08/22/19 SP Merrem 10 - 3/13 SP IV Vanco # 4 -3/6 SP Zosyn and IV Vanco # 7/7 , -08/01 SP Rocephin day # - 07/31 sp sp Dox # 6 Monitor CBC. Monitor BMP. monitor temp and VS Monitor chest x-ray cont trach care CXR am DW RN Subjective Allergies: Coded Allergies: No Known Allergies (Unverified , 06/03/17) Subjective afebrile on FIo2 30% Objective Vital Signs Last 24 Hour Vital Signs Date Time Temp Pulse Resp B/P (MAP) Pulse Ox O2 Delivery O2 Flow Rate FiO2 09/17/19 12:23 87 20 96 Mechanical Ventilator 30 86 16 30 09/17/19 12:00 Mechanical Ventilator Mechanical Ventilator 09/17/19 12:00 30 09/17/19 12:00 97.3 80 24 153/70 (97) 94 09/17/19 11:33 83 09/17/19 11:08 76 14 30 09/17/19 10:23 73 20 98 09/17/19 10:21 71 20 98 09/17/19 08:00 Mechanical Ventilator Mechanical Ventilator 09/17/19 08:00 30 09/17/19 08:00 97.0 70 24 129/63 (85) 94 09/17/19 07:46 69 09/17/19 07:05 71 14 30 09/17/19 05:20 74 15 30 09/17/19 04:00 Mechanical Ventilator Mechanical Ventilator 09/17/19 04:00 97.6 81 24 152/83 (106) 94 09/17/19 04:00 78 09/17/19 04:00 30 09/17/19 03:15 79 18 30 09/17/19 01:22 77 17 30 09/17/19 00:00 Mechanical Ventilator Mechanical Ventilator 09/17/19 00:00 30 09/17/19 00:00 97.9 72 18 153/73 (99) 94 09/16/19 23:55 64 14 30 09/16/19 23:28 70 09/16/19 22:22 14 17 94 Mechanical Ventilator 30 70 14 30 09/16/19 20:49 73 17 30 09/16/19 20:00 Mechanical Ventilator Mechanical Ventilator 09/16/19 20:00 98.1 74 21 135/72 (93) 94 09/16/19 20:00 30 09/16/19 19:33 73 4/14/20 16:57 71 15 30 09/16/19 16:00 Mechanical Ventilator Mechanical Ventilator 09/16/19 16:00 30 09/16/19 16:00 97.0 74 21 131/75 (93) 95 09/16/19 15:42 70 09/16/19 15:10 76 21 30 Height (Feet): 5 Height (Inches): 5.00 Weight (Pounds): 215 Objective HEENT: Thin trach secretions. LUNGS: Bilateral breath sounds with rhonchi. CARDIAC: Regular rhythm and rate. Normal S1 and S2. ABDOMEN: Soft. EXTREMITIES: Trace edema. Laboratory Tests Test 09/17/19 03:30 White Blood Count 7.0 K/UL (4.8-10.8) Red Blood Count 3.11 M/UL (4.70-6.10) L Hemoglobin 9.7 G/DL (14.2-18.0) L Hematocrit 28.5 % (42.0-52.0) L Mean Corpuscular Volume 92 FL (80-99) Mean Corpuscular Hemoglobin 31.2 PG (27.0-31.0) H Mean Corpuscular Hemoglobin Concent 34.1 G/DL (32.0-36.0) Red Cell Distribution Width 13.9 % (11.6-14.8) Platelet Count 270 K/UL (150-450) Mean Platelet Volume 5.3 FL (6.5-10.1) L Neutrophils (%) (Auto) 61.9 % (45.0-75.0) Lymphocytes (%) (Auto) 26.1 % (20.0-45.0) Monocytes (%) (Auto) 7.5 % (1.0-10.0) Eosinophils (%) (Auto) 3.8 % (0.0-3.0) H Basophils (%) (Auto) 0.7 % (0.0-2.0) Sodium Level 147 MMOL/L (136-145) H Potassium Level 3.2 MMOL/L (3.5-5.1) L Chloride Level 114 MMOL/L (98-107) H Carbon Dioxide Level 23 MMOL/L (21-32) Anion Gap 10 mmol/L (5-15) Blood Urea Nitrogen 29 mg/dL (7-18) H Creatinine 0.6 MG/DL (0.55-1.30) Estimat Glomerular Filtration Rate > 60 mL/min (>60) Glucose Level 61 MG/DL (74-106) L Calcium Level 6.5 MG/DL (8.5-10.1) #L Current Medications Medications (Trade) Dose Ordered Sig/Amaris Route PRN Reason Start Time Stop Time Status Last Admin Dose Admin Acetaminophen (Tylenol) 650 mg Q4H PRN NG MILD PAIN/T>100.4 09/11/19 17:00 10/01/19 16:59 Amiodarone HCl (Cordarone) 200 mg DAILY NG 09/12/19 09:00 11/30/19 10:21 09/16/19 09:26 Chlorhexidine Gluconate (Kamila-Hex 2%) 1 applic DAILY@1999 TOPIC 09/11/19 20:00 09/17/19 19:59 09/16/19 21:26 Colistimethate Sodium (Colistin *inhalation use only*) 75 mg Q12HR@ INH 09/11/19 22:00 09/19/19 23:59 09/17/19 12:25 Heparin Sodium (Porcine) (Heparin 5000 units/ml) 5,000 units EVERY 12 HOURS SUBQ 09/11/19 21:00 10/16/19 10:22 09/16/19 09:30 Hydralazine HCl (Apresoline) 25 mg Q6H PRN NG SBP above 160 09/11/19 18:00 12/10/19 17:59 09/12/19 23:46 Lisinopril (PriniviL) 20 mg DAILY NG 09/15/19 09:00 10/15/19 08:59 09/15/19 08:23 Pantoprazole (Protonix) 40 mg EVERY 12 HOURS IVP 09/11/19 21:00 10/01/19 10:22 09/17/19 09:00 Potassium Chloride 100 ml @ 50 mls/hr Q2H IVPB 09/17/19 12:45 09/17/19 16:44 09/17/19 12:43 Trimethoprim/ Sulfamethoxazole (Bactrim-DS) 1 tab TWICE A DAY ORAL 09/11/19 18:00 09/19/19 23:59 09/17/19 09:00 Ritu Lozano M.D. Sep 17, 2019 14:33
[2019-09-17 16:00] VITALS: BP 165/71
[2019-09-17] MEDS: HydrALAZINE 25mg tab NG PRN (16:47)
--- NOTE | 2019-09-17 19:45 | Procedure Note ---
DATE OF PROCEDURE: 09/17/2019 SURGEON: Valente Rosado M.D. CHIEF COMPLAINT: Dysphagia. REASON FOR PROCEDURE: The procedure, risks, benefits, and possible consequences, including hemorrhage, aspiration, perforation and infection, and alternative treatments, were explained to the patient/legal guardian by Dr. Valente Rosado and the patient/legal guardian understood and accepted these risks. DESCRIPTION OF PROCEDURE: After informed consent was obtained and the patient was adequately sedated, Olympus upper endoscope was advanced from mouth into the second portion of the duodenum and retroflexion was performed in the stomach. Then under endoscopic guidance under sterile condition, a 20-Yi pull type of G-tube was successfully placed in the epigastric area. The distance from the tip of the tube to skin was about 2.5 cm in size. The patient tolerated procedure very well without any complication. SUMMARY OF FINDINGS: Status post successful PEG placement. RECOMMENDATIONS: 1. Abdominal binder. 2. Elevate the head of the bed at all times. 3. G-tube flush. 4. G-tube care. 5. Start tube feeding later today. 6. The patient received dose of antibiotics prior to this procedure. Valente Rosado M.D. DR: Timothy JOB#: [id number] CC:
[2019-09-17 20:00] VITALS: BP 132/66
[2019-09-18] VITALS: BP 139/56
[2019-09-18 04:00] VITALS: BP 148/68
[2019-09-18] MEDS ORDERED: 1/2NS w/KCl 20mEq 1000ml 1,000 ML IV SCH (04:30)
--- NOTE | 2019-09-18 05:30 | Progress Note ---
DATE: 09/17/2019 SUBJECTIVE: The patient has low-grade fever and hemodynamically stable. PHYSICAL EXAMINATION: VITAL SIGNS: Blood pressure 139/66, his pulse is 95, respirations are 23, temperature 99.9. HEENT: Eyes were normal. ENT, mucous membranes were moist and intact. NECK: Supple with no JVD without lymph nodes. Tracheostomy site is clean. LUNGS: Clear without rhonchi, rales, or wheezing. HEART: Normal sounds with irregular beat. There is near tachycardia at rest. ABDOMEN: Soft and nontender with normal bowel sounds. Gastrostomy site is clean. EXTREMITIES: Warm without cyanosis, clubbing, or edema. LABORATORY AND DIAGNOSTIC DATA: Hemoglobin is 9.7, hematocrit 28.5 with MCV of 92, WBC of 7.0, and platelets are 270. His BUN and creatinine is 29 and 0.6, respectively. His sodium is 137, potassium 3.2, chloride 114, CO2 is 23. IMPRESSION: 1. The patient underwent today upper GI endoscopy and PEG insertion. The procedure was uneventful. The patient tolerated the procedure well. 2. The patient developed low-grade fever and near tachycardia. He is currently on colistin 75 mg inhalation therapy q. 12h. and Bactrim one tablet b.id. via G-tube. Repeat laboratory tests will be done in the morning. Modesta Mulligan M.D. DR: Sravani JOB#: [id number] CC:
[2019-09-18 05:41] LABS: APPEARANCE,URINE CLEAR; BILIRUBIN, URINE 1+ (NEGATIVE); GLUCOSE, URINE (UA) NEGATIVE (NEGATIVE); KETONES,URINE 1+ (NEGATIVE); LEUKOCYTE ESTERASE ,URINE NEGATIVE (NEGATIVE); NITRITE,URINE NEGATIVE (NEGATIVE); PH,URINE 7 (4.5-8.0); PROTEIN,URINE 1+ (NEGATIVE); UROBILINOGEN,URINE 12 MG/DL (0.0-1.0)
[2019-09-18 05:51] LABS: HEMATOCRIT 30.6 % (42.0-52.0); HEMOGLOBIN 10.4 G/DL (14.2-18.0); MEAN CORPUSCULAR VOLUME 92 FL (80-99); PLATELET COUNT 325 K/UL (150-450); RED BLOOD COUNT 3.34 M/UL (4.70-6.10); RED CELL DISTRIBUTION WIDTH 13.8 % (11.6-14.8); WHITE BLOOD COUNT 14.6 K/UL (4.8-10.8)
[2019-09-18 06:11] LABS: COLOR,URINE YELLOW
[2019-09-18 07:13] LABS: ALANINE AMINOTRANSFERASE 55 U/L (12-78); ALBUMIN 2.4 G/DL (3.4-5.0); ALBUMIN/GLOBULIN RATIO 0.8 (1.0-2.7); ALKALINE PHOSPHATASE 97 U/L (46-116); ANION GAP 9 mmol/L (5-15); ASPARTATE AMINO TRANSFERASE 33 U/L (15-37); BILIRUBIN,TOTAL 0.5 MG/DL (0.2-1.0); BLOOD UREA NITROGEN 35 mg/dL (7-18); CALCIUM 8.3 MG/DL (8.5-10.1); CARBON DIOXIDE 28 MMOL/L (21-32); CHLORIDE 104 MMOL/L (98-107); CREATININE 0.8 MG/DL (0.55-1.30); PHOSPHORUS 3.9 MG/DL (2.5-4.9); POTASSIUM 5.2 MMOL/L (3.5-5.1); SODIUM 141 MMOL/L (136-145)
--- NOTE | 2019-09-18 07:45 | Progress Note ---
DATE: 09/17/2019 CARDIOLOGY PROGRESS NOTE SUBJECTIVE: The patient is status post PEG placement without complication. He has been off Plavix for several days. PHYSICAL EXAMINATION: VITAL SIGNS: T-max 100.1, blood pressure 132/66, pulse 105, respirations 23. Monitor sinus rhythm and sinus tachycardia with paroxysms of atrial fibrillation. LUNGS: Coarse breath sounds. Few rhonchi. Thin trach secretions. CARDIAC: Regular rhythm and rate. Normal S1 and S2 with a 1/6 systolic murmur at apex. ABDOMEN: Soft. EXTREMITIES: No edema. LABORATORY DATA: White count 7, hemoglobin 9.7. Sodium 147, potassium 3.2. IMPRESSION: 1. Status post PEG. 2. Dehydration. 3. Hypernatremia. 4. Hypokalemia. 5. Paroxysmal atrial fibrillation. 6. Chronic diastolic congestive heart failure. PLAN: Hypotonic IV fluids. Potassium replacement. Nutrition by feeding tube. Restart anti-platelet therapy. Saeed Sim M.D. DR: RADHA JOB#: [id number] CC:
[2019-09-18 08:00] VITALS: BP 131/82
--- NOTE | 2019-09-18 08:44 | Diagnostic Imaging Report ---
Indication: Cough Technique: One view of the chest Comparison: 09/14/2019 Findings: Hazy opacity at the left lung base is decreased from the prior exam probably reflects overlying soft tissue. Reasonably demonstrated right basilar infiltrate has markedly improved. No new infiltrates. The heart size is normal. Tracheostomy again demonstrated. Impression: Hazy left basilar opacity, decreased from prior exam, probably reflects overlapping soft tissue but residual infiltrate also possible. Right basilar infiltrate has markedly improved.
--- NOTE | 2019-09-18 09:19 | Nephrology Progress Note ---
Assessment/Plan Problem List: (1) AUREA (acute kidney injury) Assessment: Serum creatinine rising (2) Cardiopulmonary arrest (3) Respiratory failure (4) Cardiomyopathy (5) Obesity (BMI 30.0-34.9) (6) DMII (diabetes mellitus, type 2) Assessment Acute Renal Failure : AUREA Most likely due to cardiorespiratory arrest and episode of hypotension. Patient also has cardiomyopathy with Ej Fx of 40 % on admission Obese : BMI 34.4 ? DM Other Dx (1) Cardiopulmonary arrest (2) Nosocomial pneumonia (3) Acute respiratory failure (4) COPD (chronic obstructive pulmonary disease) (5) Atrial fibrillation (6) Dementia with behavioral disturbance (7) CAD (coronary artery disease) Plan Discontinue potassium and IV fluid Had tracheostomy September 09 Today's labs reviewed D5 W IV fluids for hypernatremia as needed patient's condition somewhat more stable In GUT[facility]RE[facility] Adjust blood pressure medications Previously Monitor renal parameters. Serum creatinine improved Monitor urine output. Urine output improved. Avoid nephrotoxics. Weaning as possible. Remains intubated at this time. Correct electrolyte imbalances. Change tube feeding to Glucerna. Subjective ROS Limited/Unobtainable: Yes Objective Objective Last 24 Hour Vital Signs Date Time Temp Pulse Resp B/P (MAP) Pulse Ox O2 Delivery O2 Flow Rate FiO2 09/18/19 08:00 98.1 92 20 131/82 (98) 96 09/18/19 07:44 92 09/18/19 07:22 90 20 30 09/18/19 05:15 101 25 30 09/18/19 04:00 30 09/18/19 04:00 Mechanical Ventilator Mechanical Ventilator 09/18/19 04:00 95 09/18/19 04:00 98.9 101 22 148/68 (94) 95 09/18/19 03:16 100 27 30 09/18/19 01:15 93 20 30 09/18/19 00:00 30 09/18/19 00:00 99.9 95 23 139/56 (83) 96 09/18/19 00:00 Mechanical Ventilator Mechanical Ventilator 09/18/19 00:00 93 09/17/19 23:15 95 23 30 09/17/19 21:10 97 23 99 Mechanical Ventilator 30 91 14 09/17/19 20:00 100.1 100 23 132/66 (88) 96 09/17/19 20:00 30 09/17/19 20:00 Mechanical Ventilator Mechanical Ventilator 09/17/19 20:00 105 09/17/19 19:15 103 22 30 09/17/19 16:47 165/71 09/17/19 16:00 103 09/17/19 16:00 30 09/17/19 16:00 97.9 108 24 165/71 (102) 94 09/17/19 16:00 Mechanical Ventilator Mechanical Ventilator 09/17/19 15:24 102 22 96 Mechanical Ventilator 30 86 16 30 09/17/19 12:23 87 20 96 Mechanical Ventilator 30 86 16 30 09/17/19 12:00 Mechanical Ventilator Mechanical Ventilator 09/17/19 12:00 30 09/17/19 12:00 97.3 80 24 153/70 (97) 94 09/17/19 11:33 83 09/17/19 11:08 76 14 30 09/17/19 10:23 73 20 98 09/17/19 10:21 71 20 98 Intake and Output 09/17/19 09/18/19 19:00 07:00 Intake Total 740 ml 860 ml Output Total 700 ml 500 ml Balance 40 ml 360 ml Free Water 300 ml 200 ml IV Total 200 ml Tube Feeding 120 ml 660 ml Other 120 ml Output Urine Total 700 ml 500 ml # Voids 1 # Bowel Movements 1 1 Laboratory Tests 09/18/19 04:50: White Blood Count 14.6#H, Red Blood Count 3.34L, Hemoglobin 10.4L, Hematocrit 30.6L, Mean Corpuscular Volume 92, Mean Corpuscular Hemoglobin 31.2H, Mean Corpuscular Hemoglobin Concent 34.0, Red Cell Distribution Width 13.8, Platelet Count 325, Mean Platelet Volume 5.4L, Neutrophils (%) (Auto) , Lymphocytes (%) ( Auto) , Monocytes (%) (Auto) , Eosinophils (%) (Auto) , Basophils (%) (Auto) , Sodium Level 141, Potassium Level 5.2#H, Chloride Level 104, Carbon Dioxide Level 28, Anion Gap 9, Blood Urea Nitrogen 35H, Creatinine 0.8, Estimat Glomerular Filtration Rate > 60, Glucose Level 150H, Calcium Level 8.3#L, Phosphorus Level 3.9, Magnesium Level 2.1, Total Bilirubin 0.5, Aspartate Amino Transf (AST/SGOT) 33, Alanine Aminotransferase (ALT/SGPT) 55, Alkaline Phosphatase 97, C-Reactive Protein, Quantitative 11.2H, Pro-B-Type Natriuretic Peptide 2763H, Total Protein 5.3L, Albumin 2.4L, Globulin 2.9, Albumin/Globulin Ratio 0.8L 09/18/19 05:26: Urine Color Yellow, Urine Appearance Clear, Urine pH 7, Urine Specific [place] 1.010, Urine Protein 1+H, Urine Glucose (UA) Negative, Urine Ketones 1+H, Urine Blood 4+H, Urine Nitrite Negative, Urine Bilirubin 1+H, Urine Ictotest Negative , Urine Urobilinogen 12H, Urine Leukocyte Esterase Negative, Urine RBC TntcH, Urine WBC 0-2, Urine Squamous Epithelial Cells None, Urine Bacteria Few Height (Feet): 5 Height (Inches): 5.00 Weight (Pounds): 210 General Appearance: no apparent distress EENT: other - Trached and vented Cardiovascular: tachycardia Respiratory/Chest: decreased breath sounds Abdomen: distended Objective no change Yunior Sexton MD Sep 18, 2019 09:19
[2019-09-18] MEDS: Lisinopril 20mg tab NG SCH (09:32)
[2019-09-18] MEDS: Amiodarone 200mg tab NG SCH (09:32)
[2019-09-18] MEDS: Bactrim-DS 1 tab ORAL SCH (09:33)
[2019-09-18] MEDS: Pantoprazole Inj IVP SCH ×2 (09:34→20:50)
[2019-09-18] MEDS: Heparin 5000 units/ml inj SUBQ SCH ×2 (09:38→20:51)
--- NOTE | 2019-09-18 09:55 | General Progress Note ---
Assessment/Plan Problem List: (1) UTI (urinary tract infection) ICD Codes: N39.0 - Urinary tract infection, site not specified SNOMED: 71130024 (2) Acute respiratory failure ICD Codes: J96.00 - Acute respiratory failure, unspecified whether with hypoxia or hypercapnia SNOMED: 72670255 (3) Upper respiratory infection ICD Codes: J06.9 - Acute upper respiratory infection, unspecified SNOMED: 08466069 (4) Dementia with behavioral disturbance ICD Codes: F03.91 - Unspecified dementia with behavioral disturbance SNOMED: 7436291083241 (5) Atrial fibrillation ICD Codes: I48.91 - Unspecified atrial fibrillation SNOMED: 42276246 (6) CAD (coronary artery disease) ICD Codes: I25.10 - Atherosclerotic heart disease of [place] coronary artery without angina pectoris SNOMED: 99114750 (7) COPD (chronic obstructive pulmonary disease) ICD Codes: J44.9 - Chronic obstructive pulmonary disease, unspecified SNOMED: 32311387 (8) History of hypertension ICD Codes: Z86.79 - Personal history of other diseases of the circulatory system SNOMED: 152052774 (9) Respiratory failure ICD Codes: J96.90 - Respiratory failure, unspecified, unspecified whether with hypoxia or hypercapnia SNOMED: 566570665 (10) DMII (diabetes mellitus, type 2) ICD Codes: E11.9 - Type 2 diabetes mellitus without complications SNOMED: 71567022 (11) Obesity (BMI 30.0-34.9) ICD Codes: E66.9 - Obesity, unspecified SNOMED: 584730186080268 (12) Anemia ICD Codes: D64.9 - Anemia, unspecified SNOMED: 434436207 Assessment/Plan: s/p PEG GTF GT care dc planning per primary team Subjective ROS Limited/Unobtainable: No Allergies: Coded Allergies: No Known Allergies (Unverified , 06/03/17) Objective Last 24 Hour Vital Signs Date Time Temp Pulse Resp B/P (MAP) Pulse Ox O2 Delivery O2 Flow Rate FiO2 09/18/19 09:32 131/82 09/18/19 09:02 91 20 30 09/18/19 08:00 98.1 92 20 131/82 (98) 96 09/18/19 07:44 92 09/18/19 07:22 90 20 30 09/18/19 05:15 101 25 30 09/18/19 04:00 30 09/18/19 04:00 Mechanical Ventilator Mechanical Ventilator 09/18/19 04:00 95 09/18/19 04:00 98.9 101 22 148/68 (94) 95 09/18/19 03:16 100 27 30 09/18/19 01:15 93 20 30 09/18/19 00:00 30 09/18/19 00:00 99.9 95 23 139/56 (83) 96 09/18/19 00:00 Mechanical Ventilator Mechanical Ventilator 09/18/19 00:00 93 09/17/19 23:15 95 23 30 09/17/19 21:10 97 23 99 Mechanical Ventilator 30 91 14 09/17/19 20:00 100.1 100 23 132/66 (88) 96 09/17/19 20:00 30 09/17/19 20:00 Mechanical Ventilator Mechanical Ventilator 09/17/19 20:00 105 09/17/19 19:15 103 22 30 09/17/19 16:47 165/71 09/17/19 16:00 103 09/17/19 16:00 30 09/17/19 16:00 97.9 108 24 165/71 (102) 94 09/17/19 16:00 Mechanical Ventilator Mechanical Ventilator 09/17/19 15:24 102 22 96 Mechanical Ventilator 30 86 16 30 09/17/19 12:23 87 20 96 Mechanical Ventilator 30 86 16 30 09/17/19 12:00 Mechanical Ventilator Mechanical Ventilator 09/17/19 12:00 30 09/17/19 12:00 97.3 80 24 153/70 (97) 94 09/17/19 11:33 83 09/17/19 11:08 76 14 30 09/17/19 10:23 73 20 98 09/17/19 10:21 71 20 98 Intake and Output 09/17/19 09/18/19 19:00 07:00 Intake Total 740 ml 860 ml Output Total 700 ml 500 ml Balance 40 ml 360 ml Free Water 300 ml 200 ml IV Total 200 ml Tube Feeding 120 ml 660 ml Other 120 ml Output Urine Total 700 ml 500 ml # Voids 1 # Bowel Movements 1 1 Laboratory Tests 09/18/19 04:50: White Blood Count 14.6#H, Red Blood Count 3.34L, Hemoglobin 10.4L, Hematocrit 30.6L, Mean Corpuscular Volume 92, Mean Corpuscular Hemoglobin 31.2H, Mean Corpuscular Hemoglobin Concent 34.0, Red Cell Distribution Width 13.8, Platelet Count 325, Mean Platelet Volume 5.4L, Neutrophils (%) (Auto) , Lymphocytes (%) ( Auto) , Monocytes (%) (Auto) , Eosinophils (%) (Auto) , Basophils (%) (Auto) , Sodium Level 141, Potassium Level 5.2#H, Chloride Level 104, Carbon Dioxide Level 28, Anion Gap 9, Blood Urea Nitrogen 35H, Creatinine 0.8, Estimat Glomerular Filtration Rate > 60, Glucose Level 150H, Calcium Level 8.3#L, Phosphorus Level 3.9, Magnesium Level 2.1, Total Bilirubin 0.5, Aspartate Amino Transf (AST/SGOT) 33, Alanine Aminotransferase (ALT/SGPT) 55, Alkaline Phosphatase 97, C-Reactive Protein, Quantitative 11.2H, Pro-B-Type Natriuretic Peptide 2763H, Total Protein 5.3L, Albumin 2.4L, Globulin 2.9, Albumin/Globulin Ratio 0.8L 09/18/19 05:26: Urine Color Yellow, Urine Appearance Clear, Urine pH 7, Urine Specific [place] 1.010, Urine Protein 1+H, Urine Glucose (UA) Negative, Urine Ketones 1+H, Urine Blood 4+H, Urine Nitrite Negative, Urine Bilirubin 1+H, Urine Ictotest Negative , Urine Urobilinogen 12H, Urine Leukocyte Esterase Negative, Urine RBC TntcH, Urine WBC 0-2, Urine Squamous Epithelial Cells None, Urine Bacteria Few Height (Feet): 5 Height (Inches): 5.00 Weight (Pounds): 210 General Appearance: no apparent distress EENT: normal ENT inspection Neck: supple Cardiovascular: normal rate Respiratory/Chest: decreased breath sounds Abdomen: normal bowel sounds, non tender, soft Extremities: non-tender Valente Rosado MD Sep 18, 2019 09:55
[2019-09-18] MEDS: Colistin for inhalation INH SCH ×2 (11:16→22:00)
--- NOTE | 2019-09-18 11:33 | Hematology/Onc Progress Note ---
Assessment/Plan Assessment/Plan # Anemia of chronic disease due to underlying chronic medical issues, multifactorial v Gi bleed --> Anemia workup has been ordered, rule out gi bleed --> No evidence of hemolysis is noted, peripheral smear has been reviewed. --> Hgb goal >7. Transfuse prn. --> Epogen or iron at this time is not particularly indicated --> Medications have been reviewed --> low threshold for gi evaluation in case has occult + --> hgb trend 9.4-->10->9.7-->10.4 # Leukocytosis with recentl hx Developing PNA --> s/p rx, on abx colisitn and bactrim --> as per id recs # Respiratory failure is now s/p trach placed 09/10 --> s/p multple intubations and extubations --> as per surg recs # Sepsis s/p Pneumonia (probable asp), Sp RX --> id aware # Hypomagnesemia. --> replete with mg as per nenal # paroxysmal atrial fibrillation. --> hold off on anticoag # Acute on chronic diastolic congestive heart failure mostly clinically compensated. --> as per cards recs # Severe protein-calorie malnutrition. 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 --> as per cards Appreciate consultation and candida Silveira Subjective Gastrointestinal/Abdominal: Denies: no symptoms, abdomen distended, abdominal pain, black stools, tarry stools, blood in stool, constipated, diarrhea, difficulty swallowing, nausea, poor appetite, poor fluid intake, rectal bleeding , vomiting, other Neurologic/Psychiatric: Denies: no symptoms, anxiety, depressed, emotional problems, headache, numbness, paresthesia, pre-existing deficit, seizure, tingling, tremors, weakness, other Endocrine: Denies: no symptoms, excessive sweating, flushing, intolerance to cold, intolerance to heat, increased hunger, increased thirst, increased urine, unexplained weight gain, unexplained weight loss, other Hematologic/Lymphatic: Denies: no symptoms, anemia, easy bleeding, easy bruising, adenopathy, other Allergies: Coded Allergies: No Known Allergies (Unverified , 06/03/17) Subjective 09/10 no events, is tolerating trach well, labs noted 09/[address], off plavix, for peg this week/sun, hgb 10 09/16 for egd with peg as per gi, labs noted 09/17 s/p peg, on gtube feeds, hgb is better Objective Objective Current Medications Medications (Trade) Dose Ordered Sig/Amaris Route PRN Reason Start Time Stop Time Status Last Admin Dose Admin Acetaminophen (Tylenol) 650 mg Q4H PRN NG MILD PAIN/T>100.4 09/11/19 17:00 10/01/19 16:59 Amiodarone HCl (Cordarone) 200 mg DAILY NG 09/12/19 09:00 11/30/19 10:21 09/18/19 09:32 Chlorhexidine Gluconate (Kamila-Hex 2%) 1 applic DAILY@1999 TOPIC 09/18/19 20:00 12/17/19 19:59 Clopidogrel Bisulfate (Plavix) 75 mg DAILY GT 09/18/19 09:00 10/18/19 08:59 09/18/19 09:32 Colistimethate Sodium (Colistin *inhalation use only*) 75 mg Q12HR@ INH 09/11/19 22:00 09/19/19 23:59 09/18/19 11:16 Heparin Sodium (Porcine) (Heparin 5000 units/ml) 5,000 units EVERY 12 HOURS SUBQ 09/11/19 21:00 10/16/19 10:22 09/18/19 09:38 Hydralazine HCl (Apresoline) 25 mg Q6H PRN NG SBP above 160 09/11/19 18:00 12/10/19 17:59 09/17/19 16:47 Lisinopril (PriniviL) 20 mg DAILY NG 09/15/19 09:00 10/15/19 08:59 09/18/19 09:32 Pantoprazole (Protonix) 40 mg EVERY 12 HOURS IVP 09/11/19 21:00 10/01/19 10:22 09/18/19 09:34 Sodium Chloride 1,000 ml @ 75 mls/hr [id number] IV 09/18/19 07:45 10/18/19 07:44 09/18/19 09:50 Trimethoprim/ Sulfamethoxazole (Bactrim-DS) 1 tab TWICE A DAY ORAL 09/11/19 18:00 09/19/19 23:59 09/18/19 09:33 Last 24 Hour Vital Signs Date Time Temp Pulse Resp B/P (MAP) Pulse Ox O2 Delivery O2 Flow Rate FiO2 09/18/19 11:16 84 21 99 Mechanical Ventilator 30 85 22 30 09/18/19 09:32 131/82 09/18/19 09:02 91 20 30 09/18/19 08:00 98.1 92 20 131/82 (98) 96 09/18/19 07:44 92 09/18/19 07:22 90 20 30 09/18/19 05:15 101 25 30 09/18/19 04:00 30 09/18/19 04:00 Mechanical Ventilator Mechanical Ventilator 09/18/19 04:00 95 09/18/19 04:00 98.9 101 22 148/68 (94) 95 09/18/19 03:16 100 27 30 09/18/19 01:15 93 20 30 09/18/19 00:00 30 09/18/19 00:00 99.9 95 23 139/56 (83) 96 09/18/19 00:00 Mechanical Ventilator Mechanical Ventilator 09/18/19 00:00 93 09/17/19 23:15 95 23 30 09/17/19 21:10 97 23 99 Mechanical Ventilator 30 91 14 09/17/19 20:00 100.1 100 23 132/66 (88) 96 09/17/19 20:00 30 09/17/19 20:00 Mechanical Ventilator Mechanical Ventilator 09/17/19 20:00 105 09/17/19 19:15 103 22 30 09/17/19 16:47 165/71 09/17/19 16:00 103 09/17/19 16:00 30 09/17/19 16:00 97.9 108 24 165/71 (102) 94 09/17/19 16:00 Mechanical Ventilator Mechanical Ventilator 09/17/19 15:24 102 22 96 Mechanical Ventilator 30 86 16 30 09/17/19 12:23 87 20 96 Mechanical Ventilator 30 86 16 30 09/17/19 12:00 Mechanical Ventilator Mechanical Ventilator 09/17/19 12:00 30 09/17/19 12:00 97.3 80 24 153/70 (97) 94 09/17/19 11:33 83 09/17/19 11:08 76 14 30 09/17/19 10:23 73 20 98 09/17/19 10:21 71 20 98 09/17/19 08:00 Mechanical Ventilator Mechanical Ventilator 09/17/19 08:00 30 09/17/19 08:00 97.0 70 24 129/63 (85) 94 09/17/19 07:46 69 09/17/19 07:05 71 14 30 09/17/19 05:20 74 15 30 09/17/19 04:00 Mechanical Ventilator Mechanical Ventilator 09/17/19 04:00 97.6 81 24 152/83 (106) 94 09/17/19 04:00 78 09/17/19 04:00 30 09/17/19 03:15 79 18 30 09/17/19 01:22 77 17 30 09/17/19 00:00 Mechanical Ventilator Mechanical Ventilator 09/17/19 00:00 30 09/17/19 00:00 97.9 72 18 153/73 (99) 94 09/16/19 23:55 64 14 30 09/16/19 23:28 70 09/16/19 22:22 14 17 94 Mechanical Ventilator 30 70 14 30 09/16/19 20:49 73 17 30 09/16/19 20:00 Mechanical Ventilator Mechanical Ventilator 09/16/19 20:00 98.1 74 21 135/72 (93) 94 09/16/19 20:00 30 09/16/19 19:33 73 09/16/19 16:57 71 15 30 09/16/19 16:00 Mechanical Ventilator Mechanical Ventilator 09/16/19 16:00 30 09/16/19 16:00 97.0 74 21 131/75 (93) 95 09/16/19 15:42 70 09/16/19 15:10 76 21 30 09/16/19 13:26 72 17 30 09/16/19 12:19 75 09/16/19 12:00 30 09/16/19 12:00 Mechanical Ventilator Mechanical Ventilator 09/16/19 12:00 97.9 74 19 115/54 (74) 95 Intake and Output 09/17/19 09/18/19 19:00 07:00 Intake Total 740 ml 860 ml Output Total 700 ml 500 ml Balance 40 ml 360 ml Free Water 300 ml 200 ml IV Total 200 ml Tube Feeding 120 ml 660 ml Other 120 ml Output Urine Total 700 ml 500 ml # Voids 1 # Bowel Movements 1 1 Labs Test 09/16/19 03:10 09/17/19 03:30 09/18/19 04:50 09/18/19 05:26 White Blood Count 7.0 K/UL (4.8-10.8) 7.0 K/UL (4.8-10.8) 14.6 K/UL (4.8-10.8) Red Blood Count 3.07 M/UL (4.70-6.10) 3.11 M/UL (4.70-6.10) 3.34 M/UL (4.70-6.10) Hemoglobin 9.7 G/DL (14.2-18.0) 9.7 G/DL (14.2-18.0) 10.4 G/DL (14.2-18.0) Hematocrit 27.9 % (42.0-52.0) 28.5 % (42.0-52.0) 30.6 % (42.0-52.0) Mean Corpuscular Volume 91 FL (80-99) 92 FL (80-99) 92 FL (80-99) Mean Corpuscular Hemoglobin 31.6 PG (27.0-31.0) 31.2 PG (27.0-31.0) 31.2 PG (27.0-31.0) Mean Corpuscular Hemoglobin Concent 34.7 G/DL (32.0-36.0) 34.1 G/DL (32.0-36.0) 34.0 G/DL (32.0-36.0) Red Cell Distribution Width 13.7 % (11.6-14.8) 13.9 % (11.6-14.8) 13.8 % (11.6-14.8) Platelet Count 304 K/UL (150-450) 270 K/UL (150-450) 325 K/UL (150-450) Mean Platelet Volume 4.7 FL (6.5-10.1) 5.3 FL (6.5-10.1) 5.4 FL (6.5-10.1) Neutrophils (%) (Auto) 63.1 % (45.0-75.0) 61.9 % (45.0-75.0) % (45.0-75.0) Lymphocytes (%) (Auto) 24.0 % (20.0-45.0) 26.1 % (20.0-45.0) % (20.0-45.0) Monocytes (%) (Auto) 7.0 % (1.0-10.0) 7.5 % (1.0-10.0) % (1.0-10.0) Eosinophils (%) (Auto) 5.3 % (0.0-3.0) 3.8 % (0.0-3.0) % (0.0-3.0) Basophils (%) (Auto) 0.6 % (0.0-2.0) 0.7 % (0.0-2.0) % (0.0-2.0) Sodium Level 139 MMOL/L (136-145) 147 MMOL/L (136-145) 141 MMOL/L (136-145) Potassium Level 4.0 MMOL/L (3.5-5.1) 3.2 MMOL/L (3.5-5.1) 5.2 MMOL/L (3.5-5.1) Chloride Level 101 MMOL/L (98-107) 114 MMOL/L (98-107) 104 MMOL/L (98-107) Carbon Dioxide Level 32 MMOL/L (21-32) 23 MMOL/L (21-32) 28 MMOL/L (21-32) Anion Gap 6 mmol/L (5-15) 10 mmol/L (5-15) 9 mmol/L (5-15) Blood Urea Nitrogen 35 mg/dL (7-18) 29 mg/dL (7-18) 35 mg/dL (7-18) Creatinine 0.8 MG/DL (0.55-1.30) 0.6 MG/DL (0.55-1.30) 0.8 MG/DL (0.55-1.30) Estimat Glomerular Filtration Rate > 60 mL/min (>60) > 60 mL/min (>60) > 60 mL/min (>60) Glucose Level 103 MG/DL (74-106) 61 MG/DL (74-106) 150 MG/DL (74-106) Calcium Level 8.7 MG/DL (8.5-10.1) 6.5 MG/DL (8.5-10.1) 8.3 MG/DL (8.5-10.1) Phosphorus Level 3.9 MG/DL (2.5-4.9) Magnesium Level 2.1 MG/DL (1.8-2.4) Total Bilirubin 0.5 MG/DL (0.2-1.0) Aspartate Amino Transf (AST/SGOT) 33 U/L (15-37) Alanine Aminotransferase (ALT/SGPT) 55 U/L (12-78) Alkaline Phosphatase 97 U/L (46-116) C-Reactive Protein, Quantitative 11.2 mg/dL (0.00-0.90) Pro-B-Type Natriuretic Peptide 2763 pg/mL (0-125) Total Protein 5.3 G/DL (6.4-8.2) Albumin 2.4 G/DL (3.4-5.0) Globulin 2.9 g/dL Albumin/Globulin Ratio 0.8 (1.0-2.7) Urine Color Yellow Urine Appearance Clear Urine pH 7 (4.5-8.0) Urine Specific [place] 1.010 (1.005-1.035) Urine Protein 1+ (NEGATIVE) Urine Glucose (UA) Negative (NEGATIVE) Urine Ketones 1+ (NEGATIVE) Urine Blood 4+ (NEGATIVE) Urine Nitrite Negative (NEGATIVE) Urine Bilirubin 1+ (NEGATIVE) Urine Ictotest Negative (NEGATIVE) Urine Urobilinogen 12 MG/DL (0.0-1.0) Urine Leukocyte Esterase Negative (NEGATIVE) Urine RBC Tntc /HPF (0 - 0) Urine WBC 0-2 /HPF (0 - 0) Urine Squamous Epithelial Cells None /LPF (NONE/OCC) Urine Bacteria Few /HPF (NONE) Height (Feet): 5 Height (Inches): 5.00 Weight (Pounds): 210 Objective General Appearance: no apparent distress EENT: other - Remains intubated and on ventilator ++ trach Cardiovascular: normal rate Respiratory/Chest: decreased breath sounds Abdomen: soft Objective no change [place] Bailey MD Sep 18, 2019 11:33
--- NOTE | 2019-09-18 11:49 | Pulmonolgy Critical Care Note ---
Critical Care - Asmt/Plan Problems: (1) Acute respiratory failure Assessment & Plan: got reintubated (2) Dementia with behavioral disturbance (3) Atrial fibrillation Assessment & Plan: controlled (4) COPD (chronic obstructive pulmonary disease) (5) History of hypertension (6) Cardiopulmonary arrest (7) Cardiac LV ejection fraction 40% (8) DMII (diabetes mellitus, type 2) (9) Nosocomial pneumonia Respiratory: monitor respiratory rate, adjust FIO2, CXR Cardiac: continue to monitor HR/BP Renal: F/U I&O, keep IV fluid, check electrolytes Infectious Disease: check cultures Gastrointestinal: continue feedings/current rate, abdominal imaging Endocrine: continue sliding scale insulin Hematologic: monitor H/H, transfuse if hgb<8.5 Neurologic: PRN Ativan, keep patient comfortable Prophylaxis: Protonix, Heparin Time Spent (Minutes): 40 Notes 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: 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, 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, renal Discussed with: nurses, consultants, case management coordinatoremail marketing manager - Objective Last 24 Hour Vital Signs Date Time Temp Pulse Resp B/P (MAP) Pulse Ox O2 Delivery O2 Flow Rate FiO2 09/18/19 11:16 84 21 99 Mechanical Ventilator 30 85 22 30 09/18/19 09:32 131/82 09/18/19 09:02 91 20 30 09/18/19 08:00 98.1 92 20 131/82 (98) 96 09/18/19 07:44 92 09/18/19 07:22 90 20 30 09/18/19 05:15 101 25 30 09/18/19 04:00 30 09/18/19 04:00 Mechanical Ventilator Mechanical Ventilator 09/18/19 04:00 95 09/18/19 04:00 98.9 101 22 148/68 (94) 95 09/18/19 03:16 100 27 30 09/18/19 01:15 93 20 30 09/18/19 00:00 30 09/18/19 00:00 99.9 95 23 139/56 (83) 96 09/18/19 00:00 Mechanical Ventilator Mechanical Ventilator 09/18/19 00:00 93 09/17/19 23:15 95 23 30 09/17/19 21:10 97 23 99 Mechanical Ventilator 30 91 14 09/17/19 20:00 100.1 100 23 132/66 (88) 96 09/17/19 20:00 30 09/17/19 20:00 Mechanical Ventilator Mechanical Ventilator 09/17/19 20:00 105 09/17/19 19:15 103 22 30 09/17/19 16:47 165/71 09/17/19 16:00 103 09/17/19 16:00 30 09/17/19 16:00 97.9 108 24 165/71 (102) 94 09/17/19 16:00 Mechanical Ventilator Mechanical Ventilator 09/17/19 15:24 102 22 96 Mechanical Ventilator 30 86 16 30 09/17/19 12:23 87 20 96 Mechanical Ventilator 30 86 16 30 09/17/19 12:00 Mechanical Ventilator Mechanical Ventilator 09/17/19 12:00 30 09/17/19 12:00 97.3 80 24 153/70 (97) 94 Status: awake Condition: critical, improving Neck: full ROM Lungs: clear Heart: HR/BP stable Abdomen: soft, active bowel sounds Decubiti: location Accucheck: 150 Critical Care - Subjective ROS Limited/Unobtainable: Yes Condition: critical FI02: 30 Vent Support Breath Rate: 14 Vent Support Mode: AC Vent Tidal Volume: 500 Sputum Amount: Small PEEP: 5.0 PIP: 24 Tube Feeding Amount: 60 I&O: Intake and Output 09/17/19 09/18/19 19:00 07:00 Intake Total 740 ml 860 ml Output Total 700 ml 500 ml Balance 40 ml 360 ml Free Water 300 ml 200 ml IV Total 200 ml Tube Feeding 120 ml 660 ml Other 120 ml Output Urine Total 700 ml 500 ml # Voids 1 # Bowel Movements 1 1 ET-Tube: 7.5 ET Position: 24 Labs: Laboratory Tests Test 09/18/19 04:50 09/18/19 05:26 White Blood Count 14.6 K/UL (4.8-10.8) #H Red Blood Count 3.34 M/UL (4.70-6.10) L Hemoglobin 10.4 G/DL (14.2-18.0) L Hematocrit 30.6 % (42.0-52.0) L Mean Corpuscular Volume 92 FL (80-99) Mean Corpuscular Hemoglobin 31.2 PG (27.0-31.0) H Mean Corpuscular Hemoglobin Concent 34.0 G/DL (32.0-36.0) Red Cell Distribution Width 13.8 % (11.6-14.8) Platelet Count 325 K/UL (150-450) Mean Platelet Volume 5.4 FL (6.5-10.1) L Neutrophils (%) (Auto) % (45.0-75.0) Lymphocytes (%) (Auto) % (20.0-45.0) Monocytes (%) (Auto) % (1.0-10.0) Eosinophils (%) (Auto) % (0.0-3.0) Basophils (%) (Auto) % (0.0-2.0) Sodium Level 141 MMOL/L (136-145) Potassium Level 5.2 MMOL/L (3.5-5.1) #H Chloride Level 104 MMOL/L (98-107) Carbon Dioxide Level 28 MMOL/L (21-32) Anion Gap 9 mmol/L (5-15) Blood Urea Nitrogen 35 mg/dL (7-18) H Creatinine 0.8 MG/DL (0.55-1.30) Estimat Glomerular Filtration Rate > 60 mL/min (>60) Glucose Level 150 MG/DL (74-106) H Calcium Level 8.3 MG/DL (8.5-10.1) #L Phosphorus Level 3.9 MG/DL (2.5-4.9) Magnesium Level 2.1 MG/DL (1.8-2.4) Total Bilirubin 0.5 MG/DL (0.2-1.0) Aspartate Amino Transf (AST/SGOT) 33 U/L (15-37) Alanine Aminotransferase (ALT/SGPT) 55 U/L (12-78) Alkaline Phosphatase 97 U/L (46-116) C-Reactive Protein, Quantitative 11.2 mg/dL (0.00-0.90) H Pro-B-Type Natriuretic Peptide 2763 pg/mL (0-125) H Total Protein 5.3 G/DL (6.4-8.2) L Albumin 2.4 G/DL (3.4-5.0) L Globulin 2.9 g/dL Albumin/Globulin Ratio 0.8 (1.0-2.7) L Urine Color Yellow Urine Appearance Clear Urine pH 7 (4.5-8.0) Urine Specific [place] 1.010 (1.005-1.035) Urine Protein 1+ (NEGATIVE) H Urine Glucose (UA) Negative (NEGATIVE) Urine Ketones 1+ (NEGATIVE) H Urine Blood 4+ (NEGATIVE) H Urine Nitrite Negative (NEGATIVE) Urine Bilirubin 1+ (NEGATIVE) H Urine Ictotest Negative (NEGATIVE) Urine Urobilinogen 12 MG/DL (0.0-1.0) H Urine Leukocyte Esterase Negative (NEGATIVE) Urine RBC Tntc /HPF (0 - 0) H Urine WBC 0-2 /HPF (0 - 0) Urine Squamous Epithelial Cells None /LPF (NONE/OCC) Urine Bacteria Few /HPF (NONE) Nicole Graves MD Sep 18, 2019 11:49
[2019-09-18 12:00] VITALS: BP 124/70
--- NOTE | 2019-09-18 14:16 | Surgery Progress Note ---
Surgery Progress Note Subjective Procedure Performed Tracheostomy Additional Comments s/p peg labs noted exam stable comfortable tf as tolerated Objective Last 24 Hour Vital Signs Date Time Temp Pulse Resp B/P (MAP) Pulse Ox O2 Delivery O2 Flow Rate FiO2 09/18/19 12:00 30 09/18/19 12:00 98.1 77 14 124/70 (88) 99 09/18/19 12:00 Mechanical Ventilator Mechanical Ventilator 09/18/19 11:16 84 21 99 Mechanical Ventilator 30 85 22 30 09/18/19 09:32 131/82 09/18/19 09:02 91 20 30 09/18/19 08:00 98.1 92 20 131/82 (98) 96 09/18/19 08:00 Mechanical Ventilator Mechanical Ventilator 09/18/19 08:00 30 09/18/19 07:44 92 09/18/19 07:22 90 20 30 09/18/19 05:15 101 25 30 09/18/19 04:00 30 09/18/19 04:00 Mechanical Ventilator Mechanical Ventilator 09/18/19 04:00 95 09/18/19 04:00 98.9 101 22 148/68 (94) 95 09/18/19 03:16 100 27 30 09/18/19 01:15 93 20 30 09/18/19 00:00 30 09/18/19 00:00 99.9 95 23 139/56 (83) 96 09/18/19 00:00 Mechanical Ventilator Mechanical Ventilator 09/18/19 00:00 93 09/17/19 23:15 95 23 30 09/17/19 21:10 97 23 99 Mechanical Ventilator 30 91 14 09/17/19 20:00 100.1 100 23 132/66 (88) 96 09/17/19 20:00 30 09/17/19 20:00 Mechanical Ventilator Mechanical Ventilator 09/17/19 20:00 105 09/17/19 19:15 103 22 30 09/17/19 16:47 165/71 09/17/19 16:00 103 09/17/19 16:00 30 09/17/19 16:00 97.9 108 24 165/71 (102) 94 09/17/19 16:00 Mechanical Ventilator Mechanical Ventilator 09/17/19 15:24 102 22 96 Mechanical Ventilator 30 86 16 30 I&O Intake and Output 09/17/19 09/18/19 19:00 07:00 Intake Total 740 ml 860 ml Output Total 700 ml 500 ml Balance 40 ml 360 ml Free Water 300 ml 200 ml IV Total 200 ml Tube Feeding 120 ml 660 ml Other 120 ml Output Urine Total 700 ml 500 ml # Voids 1 # Bowel Movements 1 1 Dressing: other Wound: other Drains: other Cardiovascular: RSR Respiratory: decreased breath sounds Abdomen: soft, non-tender, present bowel sounds Extremities: edema, no tenderness, no cyanosis Laboratory Tests Test 09/18/19 04:50 09/18/19 05:26 White Blood Count 14.6 K/UL (4.8-10.8) #H Red Blood Count 3.34 M/UL (4.70-6.10) L Hemoglobin 10.4 G/DL (14.2-18.0) L Hematocrit 30.6 % (42.0-52.0) L Mean Corpuscular Volume 92 FL (80-99) Mean Corpuscular Hemoglobin 31.2 PG (27.0-31.0) H Mean Corpuscular Hemoglobin Concent 34.0 G/DL (32.0-36.0) Red Cell Distribution Width 13.8 % (11.6-14.8) Platelet Count 325 K/UL (150-450) Mean Platelet Volume 5.4 FL (6.5-10.1) L Neutrophils (%) (Auto) % (45.0-75.0) Lymphocytes (%) (Auto) % (20.0-45.0) Monocytes (%) (Auto) % (1.0-10.0) Eosinophils (%) (Auto) % (0.0-3.0) Basophils (%) (Auto) % (0.0-2.0) Sodium Level 141 MMOL/L (136-145) Potassium Level 5.2 MMOL/L (3.5-5.1) #H Chloride Level 104 MMOL/L (98-107) Carbon Dioxide Level 28 MMOL/L (21-32) Anion Gap 9 mmol/L (5-15) Blood Urea Nitrogen 35 mg/dL (7-18) H Creatinine 0.8 MG/DL (0.55-1.30) Estimat Glomerular Filtration Rate > 60 mL/min (>60) Glucose Level 150 MG/DL (74-106) H Calcium Level 8.3 MG/DL (8.5-10.1) #L Phosphorus Level 3.9 MG/DL (2.5-4.9) Magnesium Level 2.1 MG/DL (1.8-2.4) Total Bilirubin 0.5 MG/DL (0.2-1.0) Aspartate Amino Transf (AST/SGOT) 33 U/L (15-37) Alanine Aminotransferase (ALT/SGPT) 55 U/L (12-78) Alkaline Phosphatase 97 U/L (46-116) C-Reactive Protein, Quantitative 11.2 mg/dL (0.00-0.90) H Pro-B-Type Natriuretic Peptide 2763 pg/mL (0-125) H Total Protein 5.3 G/DL (6.4-8.2) L Albumin 2.4 G/DL (3.4-5.0) L Globulin 2.9 g/dL Albumin/Globulin Ratio 0.8 (1.0-2.7) L Urine Color Yellow Urine Appearance Clear Urine pH 7 (4.5-8.0) Urine Specific [place] 1.010 (1.005-1.035) Urine Protein 1+ (NEGATIVE) H Urine Glucose (UA) Negative (NEGATIVE) Urine Ketones 1+ (NEGATIVE) H Urine Blood 4+ (NEGATIVE) H Urine Nitrite Negative (NEGATIVE) Urine Bilirubin 1+ (NEGATIVE) H Urine Ictotest Negative (NEGATIVE) Urine Urobilinogen 12 MG/DL (0.0-1.0) H Urine Leukocyte Esterase Negative (NEGATIVE) Urine RBC Tntc /HPF (0 - 0) H Urine WBC 0-2 /HPF (0 - 0) Urine Squamous Epithelial Cells None /LPF (NONE/OCC) Urine Bacteria Few /HPF (NONE) Plan Problems: (1) Nosocomial pneumonia (2) AUREA (acute kidney injury) (3) Cardiomyopathy (4) Obesity (BMI 30.0-34.9) (5) DMII (diabetes mellitus, type 2) (6) Cardiac LV ejection fraction 40% (7) Pulmonary edema (8) Cardiopulmonary arrest Assessment & Plan: Cardiopulmonary arrest septic requiring urgent emergency line placement for pressors and fluids and meds Please see procedure report Full examination performed no other surgical issues found at this time etiology unknown likely surgical in nature Antibiotics fluids Pressors Vent weaning trials right groin site okay. no hematoma. no bleeding left arm picc okay NG tube is present in good position. A partial left lateral decubitus view of the abdomen performed as well as a supine view. The left lateral decubitus view is not adequate as the area of interest which would be the nondependent right side of the abdomen, which is the area of interest was not imaged and is beyond the field-of -view of the x-ray. Bowel gas pattern appears nonobstructive on the basis of the partial images obtained. off pressors labs reviewed cont tube feeds Unable to wean from ventilator. Labs noted ABG noted imaging reviewed cont weaning. if possible extubate otherwise will consider trach extubated improving monitor in ICU for now downgrade re-intubated on vent support on pressors wean pressors will monitor * Interval removal of endotracheal tube. NG tube and left arm PICC line remain in place. * Apparent worsening of aeration with increasing hazy opacities in the bilateral lower lungs which may in part be related to artifact from patient positioning however layering bilateral pleural effusions and bilateral airspace disease not excluded. Follow-up recommended. trach today does not seem to be able to wean s/p trach labs noted exam stable looks more comfortable now downgrade PEG planned (9) Respiratory failure (10) History of hypertension (11) COPD (chronic obstructive pulmonary disease) (12) CAD (coronary artery disease) (13) Atrial fibrillation (14) Dementia with behavioral disturbance (15) Upper respiratory infection (16) Acute respiratory failure (17) Dyspnea (18) UTI (urinary tract infection) Prosper Hummel Sep 18, 2019 14:16
[2019-09-18 16:00] VITALS: BP 143/68
[2019-09-18 20:00] VITALS: BP 110/75
[2019-09-18] MEDS: Dyna-Hex 2% Top Sol 2oz TOPIC SCH (20:50)
[2019-09-18] MEDS ORDERED: Bactrim-DS 1 tab ORAL SCH (21:00)
[2019-09-19] VITALS: BP 120/70
[2019-09-19 04:00] VITALS: BP 149/74
[2019-09-19 06:55] LABS: BASOPHILS % (AUTO) 0.5 % (0.0-2.0); EOSINOPHILS % (AUTO) 3.2 % (0.0-3.0); HEMOGLOBIN 9.6 G/DL (14.2-18.0); LYMPHOCYTES % (AUTO) 18.7 % (20.0-45.0); MEAN CORPUSCULAR VOLUME 92 FL (80-99); MONOCYTES % (AUTO) 6.3 % (1.0-10.0); NEUTROPHILS % (AUTO) 71.3 % (45.0-75.0); PLATELET COUNT 278 K/UL (150-450); RED BLOOD COUNT 3.04 M/UL (4.70-6.10); RED CELL DISTRIBUTION WIDTH 13.7 % (11.6-14.8); WHITE BLOOD COUNT 9.7 K/UL (4.8-10.8)
[2019-09-19 07:21] LABS: ALANINE AMINOTRANSFERASE 40 U/L (12-78); ALBUMIN 2.2 G/DL (3.4-5.0); ALBUMIN/GLOBULIN RATIO 0.6 (1.0-2.7); ALKALINE PHOSPHATASE 87 U/L (46-116); ANION GAP 6 mmol/L (5-15); ASPARTATE AMINO TRANSFERASE 24 U/L (15-37); BILIRUBIN,TOTAL 0.3 MG/DL (0.2-1.0); BLOOD UREA NITROGEN 33 mg/dL (7-18); CALCIUM 8.7 MG/DL (8.5-10.1); CARBON DIOXIDE 27 MMOL/L (21-32); CHLORIDE 102 MMOL/L (98-107); CREATININE 0.8 MG/DL (0.55-1.30); POTASSIUM 4.7 MMOL/L (3.5-5.1); SODIUM 135 MMOL/L (136-145)
--- NOTE | 2019-09-19 07:48 | General Progress Note ---
Assessment/Plan Problem List: (1) UTI (urinary tract infection) ICD Codes: N39.0 - Urinary tract infection, site not specified SNOMED: 30176213 (2) Acute respiratory failure ICD Codes: J96.00 - Acute respiratory failure, unspecified whether with hypoxia or hypercapnia SNOMED: 43297145 (3) Upper respiratory infection ICD Codes: J06.9 - Acute upper respiratory infection, unspecified SNOMED: 51390609 (4) Dementia with behavioral disturbance ICD Codes: F03.91 - Unspecified dementia with behavioral disturbance SNOMED: 2813240232817 (5) Atrial fibrillation ICD Codes: I48.91 - Unspecified atrial fibrillation SNOMED: 13799606 (6) CAD (coronary artery disease) ICD Codes: I25.10 - Atherosclerotic heart disease of [place] coronary artery without angina pectoris SNOMED: 85456088 (7) COPD (chronic obstructive pulmonary disease) ICD Codes: J44.9 - Chronic obstructive pulmonary disease, unspecified SNOMED: 03387950 (8) History of hypertension ICD Codes: Z86.79 - Personal history of other diseases of the circulatory system SNOMED: 155926800 (9) Respiratory failure ICD Codes: J96.90 - Respiratory failure, unspecified, unspecified whether with hypoxia or hypercapnia SNOMED: 489593924 (10) DMII (diabetes mellitus, type 2) ICD Codes: E11.9 - Type 2 diabetes mellitus without complications SNOMED: 10297315 (11) Obesity (BMI 30.0-34.9) ICD Codes: E66.9 - Obesity, unspecified SNOMED: 604292988635826 (12) Anemia ICD Codes: D64.9 - Anemia, unspecified SNOMED: 861559115 Assessment/Plan: s/p PEG GTF GT care dc planning per primary team Subjective ROS Limited/Unobtainable: No Allergies: Coded Allergies: No Known Allergies (Unverified , 06/03/17) Objective Last 24 Hour Vital Signs Date Time Temp Pulse Resp B/P (MAP) Pulse Ox O2 Delivery O2 Flow Rate FiO2 09/19/19 07:23 80 18 30 09/19/19 04:00 81 09/19/19 04:00 30 09/19/19 04:00 Mechanical Ventilator 10.0 Mechanical Ventilator 09/19/19 04:00 97.5 87 20 149/74 (99) 98 09/19/19 02:44 83 21 30 09/19/19 00:00 30 09/19/19 00:00 82 09/19/19 00:00 98.1 84 20 120/70 (87) 100 09/19/19 00:00 Mechanical Ventilator 10.0 Mechanical Ventilator 09/18/19 22:40 85 33 99 Mechanical Ventilator 30 87 24 30 09/18/19 20:00 82 09/18/19 20:00 Mechanical Ventilator 10.0 Mechanical Ventilator 09/18/19 20:00 97.5 82 20 110/75 (87) 100 09/18/19 20:00 30 09/18/19 19:13 82 18 30 09/18/19 17:25 87 16 30 09/18/19 16:00 98.1 89 20 143/68 (93) 96 09/18/19 16:00 87 09/18/19 16:00 30 09/18/19 16:00 Mechanical Ventilator 10.0 Mechanical Ventilator 10.0 09/18/19 13:23 17 21 30 09/18/19 12:00 30 09/18/19 12:00 98.1 77 14 124/70 (88) 99 09/18/19 12:00 75 09/18/19 12:00 Mechanical Ventilator Mechanical Ventilator 09/18/19 11:16 84 21 99 Mechanical Ventilator 30 85 22 30 09/18/19 09:32 131/82 09/18/19 09:02 91 20 30 09/18/19 08:00 98.1 92 20 131/82 (98) 96 09/18/19 08:00 Mechanical Ventilator Mechanical Ventilator 09/18/19 08:00 30 Intake and Output 09/18/19 09/19/19 19:00 07:00 Intake Total 2025 ml 1655 ml Output Total 300 ml 350 ml Balance 1725 ml 1305 ml Free Water 600 ml 100 ml IV Total 525 ml 835 ml Tube Feeding 780 ml 720 ml Other 120 ml Output Urine Total 300 ml 350 ml # Bowel Movements 2 2 Laboratory Tests 09/19/19 05:40: White Blood Count 9.7, Red Blood Count 3.04L, Hemoglobin 9.6L, Hematocrit 28.0L , Mean Corpuscular Volume 92, Mean Corpuscular Hemoglobin 31.6H, Mean Corpuscular Hemoglobin Concent 34.3, Red Cell Distribution Width 13.7, Platelet Count 278, Mean Platelet Volume 5.3L, Neutrophils (%) (Auto) 71.3, Lymphocytes ( %) (Auto) 18.7L, Monocytes (%) (Auto) 6.3, Eosinophils (%) (Auto) 3.2H, Basophils (%) (Auto) 0.5, Erythrocyte Sedimentation Rate [Pending], Sodium Level 135L, Potassium Level 4.7, Chloride Level 102, Carbon Dioxide Level 27, Anion Gap 6, Blood Urea Nitrogen 33H, Creatinine 0.8, Estimat Glomerular Filtration Rate > 60, Glucose Level 133H, Calcium Level 8.7, Total Bilirubin 0.3 , Aspartate Amino Transf (AST/SGOT) 24, Alanine Aminotransferase (ALT/SGPT) 40, Alkaline Phosphatase 87, Total Protein 5.6L, Albumin 2.2L, Globulin 3.4, Albumin /Globulin Ratio 0.6L Height (Feet): 5 Height (Inches): 5.00 Weight (Pounds): 212 General Appearance: no apparent distress EENT: normal ENT inspection Neck: supple Cardiovascular: normal rate Respiratory/Chest: decreased breath sounds Abdomen: normal bowel sounds, non tender, soft Extremities: non-tender Valente Rosado MD Sep 19, 2019 07:48
[2019-09-19 08:00] VITALS: BP 146/74
--- NOTE | 2019-09-19 08:44 | Progress Note ---
DATE: 09/18/2019 CARDIOLOGY PROGRESS NOTE SUBJECTIVE: The patient is status post trach and status post PEG, on ventilator support. PHYSICAL EXAMINATION: VITAL SIGNS: Blood pressure 131/82, heart rate 92, respirations 20. Monitor sinus with paroxysms of atrial fibrillation. LUNGS: Few rhonchi. CARDIAC: Regular rhythm and rate. Normal S1, S2. ABDOMEN: Soft. G-tube intact. EXTREMITIES: No edema. LABORATORY DATA: White count 14.6, hemoglobin 10.4. Potassium 5.2, BUN 35, creatinine 0.8. Sodium 141. Urinalysis was too numerous to count red cells. Chest x-ray with decreasing infiltrates bilaterally. IMPRESSION: 1. Ischemic heart disease, status post cardiopulmonary arrest x2. 2. Acute on chronic respiratory acidosis, chronic obstructive pulmonary disease. 3. Acute on chronic systolic and diastolic congestive heart failure. 4. Paroxysmal atrial fibrillation. 5. Dehydration and hypernatremia corrected. PLAN: 1. Adjust IV fluids. Nutrition by feeding tube. 2. Antimicrobials per Infectious Disease principal consultant. 3. Amiodarone for arrhythmia suppression. 4. Titered anti-failure regimen. 5. Holding diuresis at this time. Saeed Sim M.D. DR: ENOC JOB#: [id number] CC:
[2019-09-19] MEDS ORDERED: HydrALAZINE 25mg tab GT PRN (09:00)
[2019-09-19] MEDS: Pantoprazole Inj IVP SCH ×2 (09:41→21:35)
[2019-09-19] MEDS: Heparin 5000 units/ml inj SUBQ SCH ×2 (09:42→21:36)
[2019-09-19] MEDS: Amiodarone 200mg tab GT SCH (09:43)
[2019-09-19] MEDS: Bactrim-DS 1 tab GT SCH ×2 (09:44→21:35)
[2019-09-19] MEDS: Lisinopril 20mg tab NG SCH (09:46)
--- NOTE | 2019-09-19 09:52 | Nephrology Progress Note ---
Assessment/Plan Problem List: (1) AUREA (acute kidney injury) Assessment: Serum creatinine rising (2) Cardiopulmonary arrest (3) Respiratory failure (4) Cardiomyopathy (5) Obesity (BMI 30.0-34.9) (6) DMII (diabetes mellitus, type 2) Assessment Acute Renal Failure : AUREA Most likely due to cardiorespiratory arrest and episode of hypotension. Patient also has cardiomyopathy with Ej Fx of 40 % on admission Obese : BMI 34.4 ? DM Other Dx (1) Cardiopulmonary arrest (2) Nosocomial pneumonia (3) Acute respiratory failure (4) COPD (chronic obstructive pulmonary disease) (5) Atrial fibrillation (6) Dementia with behavioral disturbance (7) CAD (coronary artery disease) Plan Discontinue potassium and IV fluid Had tracheostomy September 09 Today's labs reviewed D5 W IV fluids for hypernatremia as needed patient's condition somewhat more stable In [place] Adjust blood pressure medications Previously Monitor renal parameters. Serum creatinine improved Monitor urine output. Urine output improved. Avoid nephrotoxics. Weaning as possible. Remains intubated at this time. Correct electrolyte imbalances. Change tube feeding to Glucerna. Subjective ROS Limited/Unobtainable: No Constitutional: Reports: malaise Objective Objective Last 24 Hour Vital Signs Date Time Temp Pulse Resp B/P (MAP) Pulse Ox O2 Delivery O2 Flow Rate FiO2 09/19/19 09:02 82 18 30 09/19/19 07:50 87 09/19/19 07:23 80 18 30 09/19/19 04:00 81 09/19/19 04:00 30 09/19/19 04:00 Mechanical Ventilator 10.0 Mechanical Ventilator 09/19/19 04:00 97.5 87 20 149/74 (99) 98 09/19/19 02:44 83 21 30 09/19/19 00:00 30 09/19/19 00:00 82 09/19/19 00:00 98.1 84 20 120/70 (87) 100 09/19/19 00:00 Mechanical Ventilator 10.0 Mechanical Ventilator 09/18/19 22:40 85 33 99 Mechanical Ventilator 30 87 24 30 09/18/19 20:00 82 09/18/19 20:00 Mechanical Ventilator 10.0 Mechanical Ventilator 09/18/19 20:00 97.5 82 20 110/75 (87) 100 09/18/19 20:00 30 4/16/20 19:13 82 18 30 09/18/19 17:25 87 16 30 09/18/19 16:00 98.1 89 20 143/68 (93) 96 09/18/19 16:00 87 09/18/19 16:00 30 09/18/19 16:00 Mechanical Ventilator 10.0 Mechanical Ventilator 10.0 09/18/19 13:23 17 21 30 09/18/19 12:00 30 09/18/19 12:00 98.1 77 14 124/70 (88) 99 09/18/19 12:00 75 09/18/19 12:00 Mechanical Ventilator Mechanical Ventilator 09/18/19 11:16 84 21 99 Mechanical Ventilator 30 85 22 30 Intake and Output 09/18/19 09/19/19 19:00 07:00 Intake Total 2025 ml 1655 ml Output Total 300 ml 350 ml Balance 1725 ml 1305 ml Free Water 600 ml 100 ml IV Total 525 ml 835 ml Tube Feeding 780 ml 720 ml Other 120 ml Output Urine Total 300 ml 350 ml # Bowel Movements 2 2 Laboratory Tests 09/19/19 05:40: White Blood Count 9.7, Red Blood Count 3.04L, Hemoglobin 9.6L, Hematocrit 28.0L , Mean Corpuscular Volume 92, Mean Corpuscular Hemoglobin 31.6H, Mean Corpuscular Hemoglobin Concent 34.3, Red Cell Distribution Width 13.7, Platelet Count 278, Mean Platelet Volume 5.3L, Neutrophils (%) (Auto) 71.3, Lymphocytes ( %) (Auto) 18.7L, Monocytes (%) (Auto) 6.3, Eosinophils (%) (Auto) 3.2H, Basophils (%) (Auto) 0.5, Erythrocyte Sedimentation Rate [Pending], Sodium Level 135L, Potassium Level 4.7, Chloride Level 102, Carbon Dioxide Level 27, Anion Gap 6, Blood Urea Nitrogen 33H, Creatinine 0.8, Estimat Glomerular Filtration Rate > 60, Glucose Level 133H, Calcium Level 8.7, Total Bilirubin 0.3 , Aspartate Amino Transf (AST/SGOT) 24, Alanine Aminotransferase (ALT/SGPT) 40, Alkaline Phosphatase 87, Total Protein 5.6L, Albumin 2.2L, Globulin 3.4, Albumin /Globulin Ratio 0.6L Height (Feet): 5 Height (Inches): 5.00 Weight (Pounds): 212 General Appearance: no apparent distress Objective no change Yunior Sexton MD Sep 19, 2019 09:52
[2019-09-19 12:00] VITALS: BP 129/59
[2019-09-19] MEDS: Colistin for inhalation INH SCH ×2 (12:10→22:42)
--- NOTE | 2019-09-19 13:13 | Pulmonolgy Critical Care Note ---
Critical Care - Asmt/Plan Problems: (1) Acute respiratory failure Assessment & Plan: s/p trach (2) COPD (chronic obstructive pulmonary disease) (3) Atrial fibrillation Assessment & Plan: controlled (4) History of hypertension (5) Cardiopulmonary arrest (6) Cardiac LV ejection fraction 40% (7) DMII (diabetes mellitus, type 2) (8) Nosocomial pneumonia (9) Dementia with behavioral disturbance Respiratory: monitor respiratory rate, adjust FIO2, CXR Cardiac: continue pressors, continue to monitor HR/BP Renal: F/U I&O, check electrolytes Infectious Disease: check cultures, continue antibiotics Gastrointestinal: continue feedings/current rate Endocrine: monitor blood sugar, check HgA1C Hematologic: transfuse if hgb<8.5 Neurologic: PRN Ativan, PRN Morphine, keep patient comfortable Notes Reviewed: knockdown man, renal Discussed with: nurses, consultants, case 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 software manager - Objective Last 24 Hour Vital Signs Date Time Temp Pulse Resp B/P (MAP) Pulse Ox O2 Delivery O2 Flow Rate FiO2 09/19/19 13:09 98 25 30 09/19/19 12:09 Mechanical Ventilator 10.0 Mechanical Ventilator 09/19/19 12:00 97.5 87 20 129/59 (82) 98 09/19/19 12:00 30 09/19/19 11:00 86 20 90 Mechanical Ventilator 30 85 20 30 09/19/19 09:46 146/74 09/19/19 09:02 82 18 30 09/19/19 08:00 30 09/19/19 08:00 97.9 87 20 146/74 (98) 99 09/19/19 08:00 Mechanical Ventilator 10.0 Mechanical Ventilator 09/19/19 07:50 87 09/19/19 07:23 80 18 30 09/19/19 04:00 81 09/19/19 04:00 30 09/19/19 04:00 Mechanical Ventilator 10.0 Mechanical Ventilator 09/19/19 04:00 97.5 87 20 149/74 (99) 98 09/19/19 02:44 83 21 30 09/19/19 00:00 30 09/19/19 00:00 82 09/19/19 00:00 98.1 84 20 120/70 (87) 100 09/19/19 00:00 Mechanical Ventilator 10.0 Mechanical Ventilator 09/18/19 22:40 85 33 99 Mechanical Ventilator 30 87 24 30 09/18/19 20:00 82 09/18/19 20:00 Mechanical Ventilator 10.0 Mechanical Ventilator 09/18/19 20:00 97.5 82 20 110/75 (87) 100 09/18/19 20:00 30 09/18/19 19:13 82 18 30 09/18/19 17:25 87 16 30 09/18/19 16:00 98.1 89 20 143/68 (93) 96 09/18/19 16:00 87 09/18/19 16:00 30 09/18/19 16:00 Mechanical Ventilator 10.0 Mechanical Ventilator 10.0 09/18/19 13:23 17 21 30 Status: awake Condition: critical, improving Neck: full ROM Lungs: clear Heart: HR/BP stable Abdomen: soft, non-tender, feeding tube Extremities: no C/C/E Decubiti: location Accucheck: 150 Critical Care - Subjective ROS Limited/Unobtainable: Yes Condition: critical, improving FI02: 30 Vent Support Breath Rate: 14 Vent Support Mode: AC Vent Tidal Volume: 500 Sputum Amount: Small PEEP: 5.0 PIP: 25 Tube Feeding Amount: 60 I&O: Intake and Output 09/18/19 09/19/19 19:00 07:00 Intake Total 2025 ml 1655 ml Output Total 300 ml 350 ml Balance 1725 ml 1305 ml Free Water 600 ml 100 ml IV Total 525 ml 835 ml Tube Feeding 780 ml 720 ml Other 120 ml Output Urine Total 300 ml 350 ml # Bowel Movements 2 2 ET-Tube: 7.5 ET Position: 24 Labs: Laboratory Tests Test 09/19/19 05:40 White Blood Count 9.7 K/UL (4.8-10.8) Red Blood Count 3.04 M/UL (4.70-6.10) L Hemoglobin 9.6 G/DL (14.2-18.0) L Hematocrit 28.0 % (42.0-52.0) L Mean Corpuscular Volume 92 FL (80-99) Mean Corpuscular Hemoglobin 31.6 PG (27.0-31.0) H Mean Corpuscular Hemoglobin Concent 34.3 G/DL (32.0-36.0) Red Cell Distribution Width 13.7 % (11.6-14.8) Platelet Count 278 K/UL (150-450) Mean Platelet Volume 5.3 FL (6.5-10.1) L Neutrophils (%) (Auto) 71.3 % (45.0-75.0) Lymphocytes (%) (Auto) 18.7 % (20.0-45.0) L Monocytes (%) (Auto) 6.3 % (1.0-10.0) Eosinophils (%) (Auto) 3.2 % (0.0-3.0) H Basophils (%) (Auto) 0.5 % (0.0-2.0) Erythrocyte Sedimentation Rate 76 MM/HR (0-20) H Sodium Level 135 MMOL/L (136-145) L Potassium Level 4.7 MMOL/L (3.5-5.1) Chloride Level 102 MMOL/L (98-107) Carbon Dioxide Level 27 MMOL/L (21-32) Anion Gap 6 mmol/L (5-15) Blood Urea Nitrogen 33 mg/dL (7-18) H Creatinine 0.8 MG/DL (0.55-1.30) Estimat Glomerular Filtration Rate > 60 mL/min (>60) Glucose Level 133 MG/DL (74-106) H Calcium Level 8.7 MG/DL (8.5-10.1) Total Bilirubin 0.3 MG/DL (0.2-1.0) Aspartate Amino Transf (AST/SGOT) 24 U/L (15-37) Alanine Aminotransferase (ALT/SGPT) 40 U/L (12-78) Alkaline Phosphatase 87 U/L (46-116) Total Protein 5.6 G/DL (6.4-8.2) L Albumin 2.2 G/DL (3.4-5.0) L Globulin 3.4 g/dL Albumin/Globulin Ratio 0.6 (1.0-2.7) L Nicole Graves MD Sep 19, 2019 13:13
--- NOTE | 2019-09-19 14:26 | Infectious Diseases Prog Note ---
Assessment/Plan Assessment/Plan ASSESSMENT: The patient is a 79-year-old male with: Multiple reintubations, likely cannot maintain airway now SP trach Low grade temp, SP No leukocytosis Developing PNA on rx 09/17 CXR: Hazy left basilar opacity, decreased from prior exam, probably reflects overlapping soft tissue but residual infiltrate also possible. Right basilar infiltrate has markedly improved. 09/13 CXR: No significant interval change in hazy basilar opacities , likely combination of small pleural effusions and atelectasis/consolidation. 08/31 CXR: There is a hazy opacity at the left lung base again noted unchanged. Mild linear densities are seen in the right midlung which may be atelectasis or scarring. 09/02 CXR: Hazy basilar opacities, most likely due to overlying soft tissue shadows but hazy infiltrates also possible. If the latter, stable on the left, new or increased on the right. 09/04: Suspected pneumonia at the left lung base 09/05 CXR: Bilateral lower lobe infiltrates/atelectasis, similar to prior. 09/08 CXR: Hazy left greater than right basilar opacity and borderline interstitial congestive changes persist. Leukocytosis; Sp Fever , sp Sepsis, Sp Pneumonia (probable asp), Sp RX -08/28 CXR: Interval removal of endotracheal tube. NG tube and left arm PICC line remain in place. Apparent worsening of aeration with increasing hazy opacities in the bilateral lower lungs which may in part be related to artifact from patient positioning however layering bilateral pleural effusions and bilateral airspace disease not excluded. -08/13 Scx: MDR-ACB (Tygacil LANI: 4) - CXR: 1. Streaky opacities in the right lower lung may represent atelectasis versus scarring. Left basilar opacity may represent atelectasis. Component of pneumonia is not excluded. Pulmonary vasculature congestion. -08/01 ucx NTD -sp cx: nl anastacio Urinary tract infection, SP Rx 08/31 SP rapid response and reintubation 08/17 Sp code blue and intubation , extubated 08/27 07/31 Sp Code blue and intubation , sp extubation 08/12 , Hyperlipidemia. COPD. History of GERD. History of encephalopathy. History of CAD/AR. History of cardiomyopathy. Hypertension. PLAN: INH colistin and bactrim #10/10 09/09 SP colistin IV #6 -3/27 SP Colistin INH (MDR-ACB) # 14 - 08/22/19 SP Merrem 10 - 08/14 SP IV Vanco # 4 -08/07 SP Zosyn and IV Vanco # 7/ , -08/01 SP Rocephin day # - 07/31 sp sp Dox # 6 Monitor CBC. Monitor BMP. monitor temp and VS Monitor chest x-ray cont trach care DW RN Subjective Allergies: Coded Allergies: No Known Allergies (Unverified , 06/03/17) Subjective afebrile >36hrs leukocytosis resolved Objective Vital Signs Last 24 Hour Vital Signs Date Time Temp Pulse Resp B/P (MAP) Pulse Ox O2 Delivery O2 Flow Rate FiO2 09/19/19 13:09 98 25 30 09/19/19 12:09 Mechanical Ventilator 10.0 Mechanical Ventilator 09/19/19 12:00 97.5 87 20 129/59 (82) 98 09/19/19 12:00 30 09/19/19 11:50 86 09/19/19 11:00 86 20 90 Mechanical Ventilator 30 85 20 30 09/19/19 09:46 146/74 09/19/19 09:02 82 18 30 09/19/19 08:00 30 09/19/19 08:00 97.9 87 20 146/74 (98) 99 09/19/19 08:00 Mechanical Ventilator 10.0 Mechanical Ventilator 09/19/19 07:50 87 09/19/19 07:23 80 18 30 09/19/19 04:00 81 09/19/19 04:00 30 09/19/19 04:00 Mechanical Ventilator 10.0 Mechanical Ventilator 09/19/19 04:00 97.5 87 20 149/74 (99) 98 09/19/19 02:44 83 21 30 09/19/19 00:00 30 09/19/19 00:00 82 09/19/19 00:00 98.1 84 20 120/70 (87) 100 09/19/19 00:00 Mechanical Ventilator 10.0 Mechanical Ventilator 09/18/19 22:40 85 33 99 Mechanical Ventilator 30 87 24 30 09/18/19 20:00 82 09/18/19 20:00 Mechanical Ventilator 10.0 Mechanical Ventilator 09/18/19 20:00 97.5 82 20 110/75 (87) 100 09/18/19 20:00 30 09/18/19 19:13 82 18 30 09/18/19 17:25 87 16 30 09/18/19 16:00 98.1 89 20 143/68 (93) 96 09/18/19 16:00 87 09/18/19 16:00 30 09/18/19 16:00 Mechanical Ventilator 10.0 Mechanical Ventilator 10.0 Height (Feet): 5 Height (Inches): 5.00 Weight (Pounds): 212 Objective HEENT: Thin trach secretions. LUNGS: Bilateral breath sounds with rhonchi. CARDIAC: Regular rhythm and rate. Normal S1 and S2. ABDOMEN: Soft. EXTREMITIES: Trace edema. Laboratory Tests Test 09/19/19 05:40 White Blood Count 9.7 K/UL (4.8-10.8) Red Blood Count 3.04 M/UL (4.70-6.10) L Hemoglobin 9.6 G/DL (14.2-18.0) L Hematocrit 28.0 % (42.0-52.0) L Mean Corpuscular Volume 92 FL (80-99) Mean Corpuscular Hemoglobin 31.6 PG (27.0-31.0) H Mean Corpuscular Hemoglobin Concent 34.3 G/DL (32.0-36.0) Red Cell Distribution Width 13.7 % (11.6-14.8) Platelet Count 278 K/UL (150-450) Mean Platelet Volume 5.3 FL (6.5-10.1) L Neutrophils (%) (Auto) 71.3 % (45.0-75.0) Lymphocytes (%) (Auto) 18.7 % (20.0-45.0) L Monocytes (%) (Auto) 6.3 % (1.0-10.0) Eosinophils (%) (Auto) 3.2 % (0.0-3.0) H Basophils (%) (Auto) 0.5 % (0.0-2.0) Erythrocyte Sedimentation Rate 76 MM/HR (0-20) H Sodium Level 135 MMOL/L (136-145) L Potassium Level 4.7 MMOL/L (3.5-5.1) Chloride Level 102 MMOL/L (98-107) Carbon Dioxide Level 27 MMOL/L (21-32) Anion Gap 6 mmol/L (5-15) Blood Urea Nitrogen 33 mg/dL (7-18) H Creatinine 0.8 MG/DL (0.55-1.30) Estimat Glomerular Filtration Rate > 60 mL/min (>60) Glucose Level 133 MG/DL (74-106) H Calcium Level 8.7 MG/DL (8.5-10.1) Total Bilirubin 0.3 MG/DL (0.2-1.0) Aspartate Amino Transf (AST/SGOT) 24 U/L (15-37) Alanine Aminotransferase (ALT/SGPT) 40 U/L (12-78) Alkaline Phosphatase 87 U/L (46-116) Total Protein 5.6 G/DL (6.4-8.2) L Albumin 2.2 G/DL (3.4-5.0) L Globulin 3.4 g/dL Albumin/Globulin Ratio 0.6 (1.0-2.7) L Current Medications Medications (Trade) Dose Ordered Sig/Amaris Route PRN Reason Start Time Stop Time Status Last Admin Dose Admin Acetaminophen (Tylenol) 650 mg Q4H PRN NG MILD PAIN/T>100.4 09/11/19 17:00 10/01/19 16:59 Amiodarone HCl (Cordarone) 200 mg DAILY GT 09/19/19 09:00 11/30/19 10:21 09/19/19 09:43 Chlorhexidine Gluconate (Kamila-Hex 2%) 1 applic DAILY@2000 TOPIC 09/18/19 20:00 12/17/19 19:59 09/18/19 20:50 Clopidogrel Bisulfate (Plavix) 75 mg DAILY GT 09/18/19 09:00 10/18/19 08:59 09/19/19 09:43 Colistimethate Sodium (Colistin *inhalation use only*) 75 mg Q12HR@10,22 INH 09/11/19 22:00 09/19/19 23:59 09/19/19 12:10 Heparin Sodium (Porcine) (Heparin 5000 units/ml) 5,000 units EVERY 12 HOURS SUBQ 09/11/19 21:00 10/16/19 10:22 09/19/19 09:42 Hydralazine HCl (Apresoline) 25 mg Q6H PRN GT SBP above 160 09/19/19 09:00 7/8/20 08:59 Lisinopril (PriniviL) 20 mg DAILY NG 09/15/19 09:00 10/15/19 08:59 09/19/19 09:46 Pantoprazole (Protonix) 40 mg EVERY 12 HOURS IVP 09/11/19 21:00 10/01/19 10:22 09/19/19 09:41 Sodium Chloride 1,000 ml @ 75 mls/hr [id number] IV 09/18/19 07:45 10/18/19 07:44 09/18/19 20:52 Trimethoprim/ Sulfamethoxazole (Bactrim-DS) 1 tab Q12HR GT 09/19/19 09:00 09/19/19 20:59 09/19/19 09:44 Ritu Lozano M.D. Sep 19, 2019 14:26
[2019-09-19 16:00] VITALS: BP 129/64
--- NOTE | 2019-09-19 17:31 | Hematology/Onc Progress Note ---
Assessment/Plan Assessment/Plan # Anemia of chronic disease due to underlying chronic medical issues, multifactorial v Gi bleed --> Anemia workup has been ordered, rule out gi bleed --> No evidence of hemolysis is noted, peripheral smear has been reviewed. --> Hgb goal >7. Transfuse prn. --> Epogen or iron at this time is not particularly indicated --> Medications have been reviewed --> low threshold for gi evaluation in case has occult + --> hgb trend 9.4-->10->9.7-->10.4-->9.6 # Leukocytosis with recentl hx Developing PNA --> on abx colisitn-->bactrim --> as per id recs --> covid result pending # Respiratory failure is now s/p trach placed 09/10 --> s/p multple intubations and extubations --> as per surg recs # Sepsis s/p Pneumonia (probable asp), Sp RX --> id aware # Hypomagnesemia. --> replete with mg as per nenal # paroxysmal atrial fibrillation. --> hold off on anticoag # Acute on chronic diastolic congestive heart failure mostly clinically compensated. --> as per cards recs # Severe protein-calorie malnutrition. 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 --> as per cards Appreciate consultation and candida Rn Subjective Allergies: Coded Allergies: No Known Allergies (Unverified , 06/03/17) Subjective 09/10 no events, is tolerating trach well, labs noted 09/[address], off plavix, for peg this /sun, hgb 10 09/16 for egd with peg as per gi, labs noted 09/17 s/p peg, on gtube feeds, hgb is better 09/18 sdu, covid results pending, sodium 135, on gt bactrim Objective Objective Current Medications Medications (Trade) Dose Ordered Sig/Amaris Route PRN Reason Start Time Stop Time Status Last Admin Dose Admin Acetaminophen (Tylenol) 650 mg Q4H PRN NG MILD PAIN/T>100.4 09/11/19 17:00 10/01/19 16:59 Amiodarone HCl (Cordarone) 200 mg DAILY GT 09/19/19 09:00 11/30/19 10:21 09/19/19 09:43 Chlorhexidine Gluconate (Kamila-Hex 2%) 1 applic DAILY@2000 TOPIC 09/18/19 20:00 12/17/19 19:59 09/18/19 20:50 Clopidogrel Bisulfate (Plavix) 75 mg DAILY GT 09/18/19 09:00 10/18/19 08:59 09/19/19 09:43 Colistimethate Sodium (Colistin *inhalation use only*) 75 mg Q12HR@10,22 INH 09/11/19 22:00 09/19/19 23:59 09/19/19 12:10 Heparin Sodium (Porcine) (Heparin 5000 units/ml) 5,000 units EVERY 12 HOURS SUBQ 09/11/19 21:00 10/16/19 10:22 09/19/19 09:42 Hydralazine HCl (Apresoline) 25 mg Q6H PRN GT SBP above 160 09/19/19 09:00 12/10/19 08:59 Lisinopril (PriniviL) 20 mg DAILY NG 09/15/19 09:00 10/15/19 08:59 09/19/19 09:46 Pantoprazole (Protonix) 40 mg EVERY 12 HOURS IVP 09/11/19 21:00 10/01/19 10:22 09/19/19 09:41 Sodium Chloride 1,000 ml @ 75 mls/hr [id number] IV 09/18/19 07:45 10/18/19 07:44 09/19/19 15:57 Trimethoprim/ Sulfamethoxazole (Bactrim-DS) 1 tab Q12HR GT 09/19/19 09:00 09/19/19 23:59 09/19/19 09:44 Last 24 Hour Vital Signs Date Time Temp Pulse Resp B/P (MAP) Pulse Ox O2 Delivery O2 Flow Rate FiO2 09/19/19 16:00 84 09/19/19 16:00 30 09/19/19 16:00 Mechanical Ventilator 10.0 Mechanical Ventilator 09/19/19 16:00 97.9 85 19 129/64 (85) 97 09/19/19 15:09 98 18 30 09/19/19 13:09 98 25 30 09/19/19 12:09 Mechanical Ventilator 10.0 Mechanical Ventilator 09/19/19 12:00 97.5 87 20 129/59 (82) 98 09/19/19 12:00 30 09/19/19 11:50 86 09/19/19 11:00 86 20 90 Mechanical Ventilator 30 85 20 30 09/19/19 09:46 146/74 09/19/19 09:02 82 18 30 09/19/19 08:00 30 09/19/19 08:00 97.9 87 20 146/74 (98) 99 09/19/19 08:00 Mechanical Ventilator 10.0 Mechanical Ventilator 09/19/19 07:50 87 09/19/19 07:23 80 18 30 09/19/19 04:00 81 09/19/19 04:00 30 09/19/19 04:00 Mechanical Ventilator 10.0 Mechanical Ventilator 09/19/19 04:00 97.5 87 20 149/74 (99) 98 09/19/19 02:44 83 21 30 09/19/19 00:00 30 09/19/19 00:00 82 09/19/19 00:00 98.1 84 20 120/70 (87) 100 09/19/19 00:00 Mechanical Ventilator 10.0 Mechanical Ventilator 09/18/19 22:40 85 33 99 Mechanical Ventilator 30 87 24 30 09/18/19 20:00 82 09/18/19 20:00 Mechanical Ventilator 10.0 Mechanical Ventilator 09/18/19 20:00 97.5 82 20 110/75 (87) 100 09/18/19 20:00 30 09/18/19 19:13 82 18 30 09/18/19 17:25 87 16 30 09/18/19 16:00 98.1 89 20 143/68 (93) 96 09/18/19 16:00 87 09/18/19 16:00 30 09/18/19 16:00 Mechanical Ventilator 10.0 Mechanical Ventilator 10.0 09/18/19 13:23 17 21 30 09/18/19 12:00 30 09/18/19 12:00 98.1 77 14 124/70 (88) 99 09/18/19 12:00 75 09/18/19 12:00 Mechanical Ventilator Mechanical Ventilator 09/18/19 11:16 84 21 99 Mechanical Ventilator 30 85 22 30 09/18/19 09:32 131/82 09/18/19 09:02 91 20 30 4/16/20 08:00 98.1 92 20 131/82 (98) 96 09/18/19 08:00 Mechanical Ventilator Mechanical Ventilator 09/18/19 08:00 30 09/18/19 07:44 92 09/18/19 07:22 90 20 30 09/18/19 05:15 101 25 30 09/18/19 04:00 30 09/18/19 04:00 Mechanical Ventilator Mechanical Ventilator 09/18/19 04:00 95 09/18/19 04:00 98.9 101 22 148/68 (94) 95 09/18/19 03:16 100 27 30 09/18/19 01:15 93 20 30 09/18/19 00:00 30 09/18/19 00:00 99.9 95 23 139/56 (83) 96 09/18/19 00:00 Mechanical Ventilator Mechanical Ventilator 09/18/19 00:00 93 09/17/19 23:15 95 23 30 09/17/19 21:10 97 23 99 Mechanical Ventilator 30 91 14 09/17/19 20:00 100.1 100 23 132/66 (88) 96 09/17/19 20:00 30 09/17/19 20:00 Mechanical Ventilator Mechanical Ventilator 09/17/19 20:00 105 09/17/19 19:15 103 22 30 Intake and Output 09/18/19 09/19/19 19:00 07:00 Intake Total 2025 ml 1655 ml Output Total 300 ml 350 ml Balance 1725 ml 1305 ml Free Water 600 ml 100 ml IV Total 525 ml 835 ml Tube Feeding 780 ml 720 ml Other 120 ml Output Urine Total 300 ml 350 ml # Bowel Movements 2 2 Labs Test 09/17/19 03:30 09/18/19 04:50 09/18/19 05:26 09/19/19 05:40 White Blood Count 7.0 K/UL (4.8-10.8) 14.6 K/UL (4.8-10.8) 9.7 K/UL (4.8-10.8) Red Blood Count 3.11 M/UL (4.70-6.10) 3.34 M/UL (4.70-6.10) 3.04 M/UL (4.70-6.10) Hemoglobin 9.7 G/DL (14.2-18.0) 10.4 G/DL (14.2-18.0) 9.6 G/DL (14.2-18.0) Hematocrit 28.5 % (42.0-52.0) 30.6 % (42.0-52.0) 28.0 % (42.0-52.0) Mean Corpuscular Volume 92 FL (80-99) 92 FL (80-99) 92 FL (80-99) Mean Corpuscular Hemoglobin 31.2 PG (27.0-31.0) 31.2 PG (27.0-31.0) 31.6 PG (27.0-31.0) Mean Corpuscular Hemoglobin Concent 34.1 G/DL (32.0-36.0) 34.0 G/DL (32.0-36.0) 34.3 G/DL (32.0-36.0) Red Cell Distribution Width 13.9 % (11.6-14.8) 13.8 % (11.6-14.8) 13.7 % (11.6-14.8) Platelet Count 270 K/UL (150-450) 325 K/UL (150-450) 278 K/UL (150-450) Mean Platelet Volume 5.3 FL (6.5-10.1) 5.4 FL (6.5-10.1) 5.3 FL (6.5-10.1) Neutrophils (%) (Auto) 61.9 % (45.0-75.0) % (45.0-75.0) 71.3 % (45.0-75.0) Lymphocytes (%) (Auto) 26.1 % (20.0-45.0) % (20.0-45.0) 18.7 % (20.0-45.0) Monocytes (%) (Auto) 7.5 % (1.0-10.0) % (1.0-10.0) 6.3 % (1.0-10.0) Eosinophils (%) (Auto) 3.8 % (0.0-3.0) % (0.0-3.0) 3.2 % (0.0-3.0) Basophils (%) (Auto) 0.7 % (0.0-2.0) % (0.0-2.0) 0.5 % (0.0-2.0) Sodium Level 147 MMOL/L (136-145) 141 MMOL/L (136-145) 135 MMOL/L (136-145) Potassium Level 3.2 MMOL/L (3.5-5.1) 5.2 MMOL/L (3.5-5.1) 4.7 MMOL/L (3.5-5.1) Chloride Level 114 MMOL/L (98-107) 104 MMOL/L (98-107) 102 MMOL/L (98-107) Carbon Dioxide Level 23 MMOL/L (21-32) 28 MMOL/L (21-32) 27 MMOL/L (21-32) Anion Gap 10 mmol/L (5-15) 9 mmol/L (5-15) 6 mmol/L (5-15) Blood Urea Nitrogen 29 mg/dL (7-18) 35 mg/dL (7-18) 33 mg/dL (7-18) Creatinine 0.6 MG/DL (0.55-1.30) 0.8 MG/DL (0.55-1.30) 0.8 MG/DL (0.55-1.30) Estimat Glomerular Filtration Rate > 60 mL/min (>60) > 60 mL/min (>60) > 60 mL/min (>60) Glucose Level 61 MG/DL (74-106) 150 MG/DL (74-106) 133 MG/DL (74-106) Calcium Level 6.5 MG/DL (8.5-10.1) 8.3 MG/DL (8.5-10.1) 8.7 MG/DL (8.5-10.1) Phosphorus Level 3.9 MG/DL (2.5-4.9) Magnesium Level 2.1 MG/DL (1.8-2.4) Total Bilirubin 0.5 MG/DL (0.2-1.0) 0.3 MG/DL (0.2-1.0) Aspartate Amino Transf (AST/SGOT) 33 U/L (15-37) 24 U/L (15-37) Alanine Aminotransferase (ALT/SGPT) 55 U/L (12-78) 40 U/L (12-78) Alkaline Phosphatase 97 U/L (46-116) 87 U/L (46-116) C-Reactive Protein, Quantitative 11.2 mg/dL (0.00-0.90) Pro-B-Type Natriuretic Peptide 2763 pg/mL (0-125) Total Protein 5.3 G/DL (6.4-8.2) 5.6 G/DL (6.4-8.2) Albumin 2.4 G/DL (3.4-5.0) 2.2 G/DL (3.4-5.0) Globulin 2.9 g/dL 3.4 g/dL Albumin/Globulin Ratio 0.8 (1.0-2.7) 0.6 (1.0-2.7) Urine Color Yellow Urine Appearance Clear Urine pH 7 (4.5-8.0) Urine Specific [place] 1.010 (1.005-1.035) Urine Protein 1+ (NEGATIVE) Urine Glucose (UA) Negative (NEGATIVE) Urine Ketones 1+ (NEGATIVE) Urine Blood 4+ (NEGATIVE) Urine Nitrite Negative (NEGATIVE) Urine Bilirubin 1+ (NEGATIVE) Urine Ictotest Negative (NEGATIVE) Urine Urobilinogen 12 MG/DL (0.0-1.0) Urine Leukocyte Esterase Negative (NEGATIVE) Urine RBC Tntc /HPF (0 - 0) Urine WBC 0-2 /HPF (0 - 0) Urine Squamous Epithelial Cells None /LPF (NONE/OCC) Urine Bacteria Few /HPF (NONE) Erythrocyte Sedimentation Rate 76 MM/HR (0-20) Height (Feet): 5 Height (Inches): 5.00 Weight (Pounds): 212 Objective Physical Exam Vitals: reviewed General Appearance: no apparent distress EENT: other - Remains intubated and on ventilator ++ trach Cardiovascular: normal rate Respiratory/Chest: decreased breath sounds Abdomen: gt+ [place] MD Sep 19, 2019 17:31
[2019-09-19 20:00] VITALS: BP 154/73
--- NOTE | 2019-09-19 20:27 | Surgery Progress Note ---
Surgery Progress Note Subjective Procedure Performed Tracheostomy Additional Comments no acute events comfortable tolerating tf labs reviewed Objective Last 24 Hour Vital Signs Date Time Temp Pulse Resp B/P (MAP) Pulse Ox O2 Delivery O2 Flow Rate FiO2 09/19/19 19:30 84 16 30 09/19/19 17:29 80 19 30 09/19/19 16:00 84 09/19/19 16:00 30 09/19/19 16:00 Mechanical Ventilator 10.0 Mechanical Ventilator 09/19/19 16:00 97.9 85 19 129/64 (85) 97 09/19/19 15:09 98 18 30 09/19/19 13:09 98 25 30 09/19/19 12:09 Mechanical Ventilator 10.0 Mechanical Ventilator 09/19/19 12:00 97.5 87 20 129/59 (82) 98 09/19/19 12:00 30 09/19/19 11:50 86 09/19/19 11:00 86 20 90 Mechanical Ventilator 30 85 20 30 09/19/19 09:46 146/74 09/19/19 09:02 82 18 30 09/19/19 08:00 30 09/19/19 08:00 97.9 87 20 146/74 (98) 99 09/19/19 08:00 Mechanical Ventilator 10.0 Mechanical Ventilator 09/19/19 07:50 87 09/19/19 07:23 80 18 30 09/19/19 04:00 81 09/19/19 04:00 30 09/19/19 04:00 Mechanical Ventilator 10.0 Mechanical Ventilator 09/19/19 04:00 97.5 87 20 149/74 (99) 98 09/19/19 02:44 83 21 30 09/19/19 00:00 30 09/19/19 00:00 82 09/19/19 00:00 98.1 84 20 120/70 (87) 100 09/19/19 00:00 Mechanical Ventilator 10.0 Mechanical Ventilator 09/18/19 22:40 85 33 99 Mechanical Ventilator 30 87 24 30 I&O Intake and Output 09/18/19 09/19/19 19:00 07:00 Intake Total 2025 ml 1655 ml Output Total 300 ml 350 ml Balance 1725 ml 1305 ml Free Water 600 ml 100 ml IV Total 525 ml 835 ml Tube Feeding 780 ml 720 ml Other 120 ml Output Urine Total 300 ml 350 ml # Bowel Movements 2 2 Dressing: saturated Wound: other Drains: other Cardiovascular: RSR Respiratory: decreased breath sounds Abdomen: soft, non-tender, present bowel sounds, other Extremities: edema, no tenderness, no cyanosis Laboratory Tests Test 09/19/19 05:40 White Blood Count 9.7 K/UL (4.8-10.8) Red Blood Count 3.04 M/UL (4.70-6.10) L Hemoglobin 9.6 G/DL (14.2-18.0) L Hematocrit 28.0 % (42.0-52.0) L Mean Corpuscular Volume 92 FL (80-99) Mean Corpuscular Hemoglobin 31.6 PG (27.0-31.0) H Mean Corpuscular Hemoglobin Concent 34.3 G/DL (32.0-36.0) Red Cell Distribution Width 13.7 % (11.6-14.8) Platelet Count 278 K/UL (150-450) Mean Platelet Volume 5.3 FL (6.5-10.1) L Neutrophils (%) (Auto) 71.3 % (45.0-75.0) Lymphocytes (%) (Auto) 18.7 % (20.0-45.0) L Monocytes (%) (Auto) 6.3 % (1.0-10.0) Eosinophils (%) (Auto) 3.2 % (0.0-3.0) H Basophils (%) (Auto) 0.5 % (0.0-2.0) Erythrocyte Sedimentation Rate 76 MM/HR (0-20) H Sodium Level 135 MMOL/L (136-145) L Potassium Level 4.7 MMOL/L (3.5-5.1) Chloride Level 102 MMOL/L (98-107) Carbon Dioxide Level 27 MMOL/L (21-32) Anion Gap 6 mmol/L (5-15) Blood Urea Nitrogen 33 mg/dL (7-18) H Creatinine 0.8 MG/DL (0.55-1.30) Estimat Glomerular Filtration Rate > 60 mL/min (>60) Glucose Level 133 MG/DL (74-106) H Calcium Level 8.7 MG/DL (8.5-10.1) Total Bilirubin 0.3 MG/DL (0.2-1.0) Aspartate Amino Transf (AST/SGOT) 24 U/L (15-37) Alanine Aminotransferase (ALT/SGPT) 40 U/L (12-78) Alkaline Phosphatase 87 U/L (46-116) Total Protein 5.6 G/DL (6.4-8.2) L Albumin 2.2 G/DL (3.4-5.0) L Globulin 3.4 g/dL Albumin/Globulin Ratio 0.6 (1.0-2.7) L Plan Problems: (1) Nosocomial pneumonia (2) AUREA (acute kidney injury) (3) Cardiomyopathy (4) Obesity (BMI 30.0-34.9) (5) DMII (diabetes mellitus, type 2) (6) Cardiac LV ejection fraction 40% (7) Pulmonary edema (8) Cardiopulmonary arrest Assessment & Plan: Cardiopulmonary arrest septic requiring urgent emergency line placement for pressors and fluids and meds Please see procedure report Full examination performed no other surgical issues found at this time etiology unknown likely surgical in nature Antibiotics fluids Pressors Vent weaning trials right groin site okay. no hematoma. no bleeding left arm picc okay NG tube is present in good position. A partial left lateral decubitus view of the abdomen performed as well as a supine view. The left lateral decubitus view is not adequate as the area of interest which would be the nondependent right side of the abdomen, which is the area of interest was not imaged and is beyond the field-of -view of the x-ray. Bowel gas pattern appears nonobstructive on the basis of the partial images obtained. off pressors labs reviewed cont tube feeds Unable to wean from ventilator. Labs noted ABG noted imaging reviewed cont weaning. if possible extubate otherwise will consider trach extubated improving monitor in ICU for now downgrade re-intubated on vent support on pressors wean pressors will monitor * Interval removal of endotracheal tube. NG tube and left arm PICC line remain in place. * Apparent worsening of aeration with increasing hazy opacities in the bilateral lower lungs which may in part be related to artifact from patient positioning however layering bilateral pleural effusions and bilateral airspace disease not excluded. Follow-up recommended. trach today does not seem to be able to wean s/p trach labs noted exam stable looks more comfortable now downgrade PEG done d/c planning (9) Respiratory failure (10) History of hypertension (11) COPD (chronic obstructive pulmonary disease) (12) CAD (coronary artery disease) (13) Atrial fibrillation (14) Dementia with behavioral disturbance (15) Upper respiratory infection (16) Acute respiratory failure (17) Dyspnea (18) UTI (urinary tract infection) Prosper Hummel Sep 19, 2019 20:27
[2019-09-19] MEDS: Dyna-Hex 2% Top Sol 2oz TOPIC SCH (20:36)
[2019-09-20] VITALS: BP 150/68
--- NOTE | 2019-09-20 01:45 | Progress Note ---
DATE: 09/19/2019 SUBJECTIVE: The patient is awake, alert, afebrile, hemodynamically stable. He is attentive with normal attention span and tolerated feeding. PHYSICAL EXAMINATION: VITAL SIGNS: Blood pressure 129/69, pulse is 87, respirations of 20, and temperature 97.5. HEENT: Eyes were normal. ENT, mucous membranes were moist and intact. NECK: Supple with no JVD without lymph nodes. Tracheostomy site is clean. LUNGS: Clear without rhonchi, rales, or wheezing. HEART: Normal sounds with regular beats. ABDOMEN: Soft and nontender with normal bowel sounds. Gastrostomy site is clean. EXTREMITIES: Warm without cyanosis, clubbing, or edema. LABORATORY AND DIAGNOSTIC DATA: Hemoglobin 9.6, hematocrit 28.0 with MCV of 92, WBC of 9.2, and platelets 278. WBC yesterday was 14.5, BUN and creatinine is 35 and 0.9 respectively. Sodium is 135, potassium 4.7, chloride 102, CO2 was 27. Albumin is 2.2, total protein is 5.5. Today, the patient is afebrile and leukocytosis, afebrile with normal WBC; however, SARS-II/COVID test were requested and the patient now awaiting the result of his COVID test as he cannot be accepted to subacute unit without a negative test. Repeat laboratory tests will be done in the morning. Modesta Mulligan M.D. DR: Sravani JOB#: [id number] CC:
[2019-09-20 04:00] VITALS: BP 147/70
--- NOTE | 2019-09-20 05:00 | Progress Note ---
DATE: 09/19/2019 CARDIOLOGY PROGRESS NOTE SUBJECTIVE: The patient is on ventilator support. Monitored rhythm is sinus with paroxysms of atrial fibrillation. OBJECTIVE: VITAL SIGNS: Blood pressure 129/59, heart rate 87, respiratory rate 20, afebrile. LUNGS: Coarse breath sounds. Rhonchi. CARDIAC: Regular rhythm and rate. Normal S1, S2. ABDOMEN: Soft. EXTREMITIES: Trace edema. SKIN: G-tube intact. Trach site with no bleeding. LABORATORY AND DIAGNOSTIC DATA: White count 9.7, hemoglobin 9.6. Sodium 135, potassium 4.7, bicarb 27, BUN 33, creatinine 0.8. Chest x-ray from yesterday revealed decreasing left basilar opacity and improved right basilar infiltrate; no signs of pulmonary venous congestion. IMPRESSION: Overall improved. PLAN: 1. Continue amiodarone for arrhythmia suppression. 2. Monitor volume status and cardiorenal function. 3. Periodic diuresis based on clinical parameters. 4. Titrate antihypertensive regimen as needed. 5. Discharge planning in progress. 6. Ongoing weaning efforts. Saeed iSm M.D. DR: Alexa JOB#: [id number] CC:
--- NOTE | 2019-09-20 07:27 | General Progress Note ---
Assessment/Plan Problem List: (1) UTI (urinary tract infection) ICD Codes: N39.0 - Urinary tract infection, site not specified SNOMED: 44342016 (2) Acute respiratory failure ICD Codes: J96.00 - Acute respiratory failure, unspecified whether with hypoxia or hypercapnia SNOMED: 36161287 (3) Upper respiratory infection ICD Codes: J06.9 - Acute upper respiratory infection, unspecified SNOMED: 21097475 (4) Dementia with behavioral disturbance ICD Codes: F03.91 - Unspecified dementia with behavioral disturbance SNOMED: 4321218003345 (5) Atrial fibrillation ICD Codes: I48.91 - Unspecified atrial fibrillation SNOMED: 09807300 (6) CAD (coronary artery disease) ICD Codes: I25.10 - Atherosclerotic heart disease of [place] coronary artery without angina pectoris SNOMED: 12200580 (7) COPD (chronic obstructive pulmonary disease) ICD Codes: J44.9 - Chronic obstructive pulmonary disease, unspecified SNOMED: 69462673 (8) History of hypertension ICD Codes: Z86.79 - Personal history of other diseases of the circulatory system SNOMED: 703767952 (9) Respiratory failure ICD Codes: J96.90 - Respiratory failure, unspecified, unspecified whether with hypoxia or hypercapnia SNOMED: 633388164 (10) DMII (diabetes mellitus, type 2) ICD Codes: E11.9 - Type 2 diabetes mellitus without complications SNOMED: 64403584 (11) Obesity (BMI 30.0-34.9) ICD Codes: E66.9 - Obesity, unspecified SNOMED: 707528202927621 (12) Anemia ICD Codes: D64.9 - Anemia, unspecified SNOMED: 514168629 Assessment/Plan: s/p PEG GTF GT care dc planning per primary team Subjective ROS Limited/Unobtainable: No Allergies: Coded Allergies: No Known Allergies (Unverified , 06/03/17) Objective Last 24 Hour Vital Signs Date Time Temp Pulse Resp B/P (MAP) Pulse Ox O2 Delivery O2 Flow Rate FiO2 09/20/19 04:00 Mechanical Ventilator 10.0 Mechanical Ventilator 09/20/19 04:00 90 09/20/19 04:00 30 09/20/19 04:00 98.0 91 19 147/70 (95) 97 09/20/19 03:05 81 17 30 09/20/19 00:00 98.0 76 14 150/68 (95) 100 09/20/19 00:00 Mechanical Ventilator 10.0 Mechanical Ventilator 09/19/19 23:41 75 09/19/19 22:42 79 18 100 Mechanical Ventilator 30 81 17 30 09/19/19 20:00 Mechanical Ventilator 10.0 Mechanical Ventilator 09/19/19 20:00 97.9 81 17 154/73 (100) 97 09/19/19 20:00 30 09/19/19 19:30 84 16 30 09/19/19 19:28 85 09/19/19 17:29 80 19 30 09/19/19 16:00 84 09/19/19 16:00 30 09/19/19 16:00 Mechanical Ventilator 10.0 Mechanical Ventilator 09/19/19 16:00 97.9 85 19 129/64 (85) 97 09/19/19 15:09 98 18 30 09/19/19 13:09 98 25 30 09/19/19 12:09 Mechanical Ventilator 10.0 Mechanical Ventilator 09/19/19 12:00 97.5 87 20 129/59 (82) 98 09/19/19 12:00 30 09/19/19 11:50 86 09/19/19 11:00 86 20 90 Mechanical Ventilator 30 85 20 30 09/19/19 09:46 146/74 09/19/19 09:02 82 18 30 09/19/19 08:00 30 09/19/19 08:00 97.9 87 20 146/74 (98) 99 09/19/19 08:00 Mechanical Ventilator 10.0 Mechanical Ventilator 09/19/19 07:50 87 Intake and Output 09/19/19 09/20/19 19:00 07:00 Intake Total 1640 ml 1717.5 ml Output Total 701 ml 1000 ml Balance 939 ml 717.5 ml Free Water 200 ml 200 ml IV Total 600 ml 857.5 ml Tube Feeding 720 ml 660 ml Other 120 ml Output Urine Total 700 ml 1000 ml Stool Total 1 ml # Bowel Movements 3 1 Height (Feet): 5 Height (Inches): 5.00 Weight (Pounds): 210 General Appearance: no apparent distress EENT: normal ENT inspection Neck: supple Cardiovascular: normal rate Respiratory/Chest: decreased breath sounds Abdomen: normal bowel sounds, non tender, soft Extremities: non-tender Vosoghi,Valente MD Sep 20, 2019 07:27
[2019-09-20 07:48] LABS: BASOPHILS % (AUTO) 0.8 % (0.0-2.0); EOSINOPHILS % (AUTO) 3.2 % (0.0-3.0); HEMATOCRIT 29.4 % (42.0-52.0); LYMPHOCYTES % (AUTO) 16.8 % (20.0-45.0); MEAN CORPUSCULAR VOLUME 91 FL (80-99); MONOCYTES % (AUTO) 7.4 % (1.0-10.0); NEUTROPHILS % (AUTO) 71.8 % (45.0-75.0); PLATELET COUNT 234 K/UL (150-450); RED BLOOD COUNT 3.22 M/UL (4.70-6.10); RED CELL DISTRIBUTION WIDTH 13.7 % (11.6-14.8); WHITE BLOOD COUNT 9.8 K/UL (4.8-10.8)
[2019-09-20 08:00] VITALS: BP 152/71
[2019-09-20 08:08] LABS: ANION GAP 3 mmol/L (5-15); BLOOD UREA NITROGEN 26 mg/dL (7-18); CALCIUM 9.2 MG/DL (8.5-10.1); CARBON DIOXIDE 32 MMOL/L (21-32); CHLORIDE 101 MMOL/L (98-107); CREATININE 0.7 MG/DL (0.55-1.30); POTASSIUM 4.9 MMOL/L (3.5-5.1); SODIUM 136 MMOL/L (136-145)
[2019-09-20] MEDS: Amiodarone 200mg tab GT SCH (09:00)
[2019-09-20] MEDS: Lisinopril 20mg tab NG SCH (09:00)
[2019-09-20] MEDS: Pantoprazole Inj IVP SCH ×2 (09:00→20:17)
[2019-09-20] MEDS: Heparin 5000 units/ml inj SUBQ SCH ×2 (09:00→20:21)
--- NOTE | 2019-09-20 10:00 | Infectious Diseases Prog Note ---
Assessment/Plan Assessment/Plan ASSESSMENT: The patient is a 79-year-old male with: Multiple reintubations, likely cannot maintain airway now SP trach Low grade temp, SP No leukocytosis Developing PNA on rx 09/17 CXR: Hazy left basilar opacity, decreased from prior exam, probably reflects overlapping soft tissue but residual infiltrate also possible. Right basilar infiltrate has markedly improved. 09/13 CXR: No significant interval change in hazy basilar opacities , likely combination of small pleural effusions and atelectasis/consolidation. 08/31 CXR: There is a hazy opacity at the left lung base again noted unchanged. Mild linear densities are seen in the right midlung which may be atelectasis or scarring. 09/02 CXR: Hazy basilar opacities, most likely due to overlying soft tissue shadows but hazy infiltrates also possible. If the latter, stable on the left, new or increased on the right. 09/04: Suspected pneumonia at the left lung base 09/05 CXR: Bilateral lower lobe infiltrates/atelectasis, similar to prior. 09/08 CXR: Hazy left greater than right basilar opacity and borderline interstitial congestive changes persist. Leukocytosis; Sp Fever , sp Sepsis, Sp Pneumonia (probable asp), Sp RX -08/28 CXR: Interval removal of endotracheal tube. NG tube and left arm PICC line remain in place. Apparent worsening of aeration with increasing hazy opacities in the bilateral lower lungs which may in part be related to artifact from patient positioning however layering bilateral pleural effusions and bilateral airspace disease not excluded. -08/13 Scx: MDR-ACB (Tygacil LANI: 4) - CXR: 1. Streaky opacities in the right lower lung may represent atelectasis versus scarring. Left basilar opacity may represent atelectasis. Component of pneumonia is not excluded. Pulmonary vasculature congestion. -08/01 ucx NTD -sp cx: nl anastacio Urinary tract infection, SP Rx 08/31 SP rapid response and reintubation 08/17 Sp code blue and intubation , extubated 08/27 07/31 Sp Code blue and intubation , sp extubation 08/12 , Hyperlipidemia. COPD. History of GERD. History of encephalopathy. History of CAD/CT. History of cardiomyopathy. Hypertension. PLAN: Monitor off abx - 09/19/19 SP INH colistin and bactrim #10/ - 09/09 SP colistin IV #6 -08/28 SP Colistin INH (MDR-ACB) # 14 - 08/22/19 SP Merrem 10 - 08/14 SP IV Vanco # 4 -08/07 SP Zosyn and IV Vanco # / , -08/01 SP Rocephin day # 07/31 sp sp Dox # 6 Monitor CBC. Monitor BMP. monitor temp and VS Monitor chest x-ray cont trach care DW RN Subjective Allergies: Coded Allergies: No Known Allergies (Unverified , 06/03/17) Subjective Afebrile No Leukocytosis On vent 30% O2 Objective Vital Signs Last 24 Hour Vital Signs Date Time Temp Pulse Resp B/P (MAP) Pulse Ox O2 Delivery O2 Flow Rate FiO2 09/20/19 09:28 92 18 30 09/20/19 08:00 30 09/20/19 08:00 Mechanical Ventilator 10.0 Mechanical Ventilator 09/20/19 08:00 97.9 93 14 152/71 (98) 96 09/20/19 07:57 94 09/20/19 07:28 93 18 30 09/20/19 04:00 Mechanical Ventilator 10.0 Mechanical Ventilator 09/20/19 04:00 90 09/20/19 04:00 30 09/20/19 04:00 98.0 91 19 147/70 (95) 97 09/20/19 03:05 81 17 30 09/20/19 00:00 98.0 76 14 150/68 (95) 100 09/20/19 00:00 Mechanical Ventilator 10.0 Mechanical Ventilator 09/19/19 23:41 75 09/19/19 22:42 79 18 100 Mechanical Ventilator 30 81 17 30 09/19/19 20:00 Mechanical Ventilator 10.0 Mechanical Ventilator 09/19/19 20:00 97.9 81 17 154/73 (100) 97 09/19/19 20:00 30 09/19/19 19:30 84 16 30 09/19/19 19:28 85 09/19/19 17:29 80 19 30 09/19/19 16:00 84 09/19/19 16:00 30 09/19/19 16:00 Mechanical Ventilator 10.0 Mechanical Ventilator 09/19/19 16:00 97.9 85 19 129/64 (85) 97 09/19/19 15:09 98 18 30 09/19/19 13:09 98 25 30 09/19/19 12:09 Mechanical Ventilator 10.0 Mechanical Ventilator 09/19/19 12:00 97.5 87 20 129/59 (82) 98 09/19/19 12:00 30 09/19/19 11:50 86 09/19/19 11:00 86 20 90 Mechanical Ventilator 30 85 20 30 Height (Feet): 5 Height (Inches): 5.00 Weight (Pounds): 210 Objective Unable to examine due lack of available PPE Microbiology Date/Time Source Procedure Growth Status 09/18/19 15:15 Blood Blood Culture - Preliminary NO GROWTH AFTER 24 HOURS Resulted 09/18/19 15:00 Blood Blood Culture - Preliminary NO GROWTH AFTER 24 HOURS Resulted 09/18/19 17:20 Nasopharynx Coronavirus COVID-19 PCR ([facility]ANI) - Final Complete Laboratory Tests Test 09/20/19 07:20 White Blood Count 9.8 K/UL (4.8-10.8) Red Blood Count 3.22 M/UL (4.70-6.10) L Hemoglobin 10.0 G/DL (14.2-18.0) L Hematocrit 29.4 % (42.0-52.0) L Mean Corpuscular Volume 91 FL (80-99) Mean Corpuscular Hemoglobin 31.0 PG (27.0-31.0) Mean Corpuscular Hemoglobin Concent 33.9 G/DL (32.0-36.0) Red Cell Distribution Width 13.7 % (11.6-14.8) Platelet Count 234 K/UL (150-450) Mean Platelet Volume 6.0 FL (6.5-10.1) L Neutrophils (%) (Auto) 71.8 % (45.0-75.0) Lymphocytes (%) (Auto) 16.8 % (20.0-45.0) L Monocytes (%) (Auto) 7.4 % (1.0-10.0) Eosinophils (%) (Auto) 3.2 % (0.0-3.0) H Basophils (%) (Auto) 0.8 % (0.0-2.0) Sodium Level 136 MMOL/L (136-145) Potassium Level 4.9 MMOL/L (3.5-5.1) Chloride Level 101 MMOL/L (98-107) Carbon Dioxide Level 32 MMOL/L (21-32) Anion Gap 3 mmol/L (5-15) L Blood Urea Nitrogen 26 mg/dL (7-18) H Creatinine 0.7 MG/DL (0.55-1.30) Estimat Glomerular Filtration Rate > 60 mL/min (>60) Glucose Level 110 MG/DL (74-106) H Calcium Level 9.2 MG/DL (8.5-10.1) Current Medications Medications (Trade) Dose Ordered Sig/Amaris Route PRN Reason Start Time Stop Time Status Last Admin Dose Admin Acetaminophen (Tylenol) 650 mg Q4H PRN NG MILD PAIN/T>100.4 09/11/19 17:00 10/01/19 16:59 Amiodarone HCl (Cordarone) 200 mg DAILY GT 09/19/19 09:00 11/30/19 10:21 09/19/19 09:43 Chlorhexidine Gluconate (Kamila-Hex 2%) 1 applic DAILY@2000 TOPIC 09/18/19 20:00 12/17/19 19:59 09/19/19 20:36 Clopidogrel Bisulfate (Plavix) 75 mg DAILY GT 09/18/19 09:00 10/18/19 08:59 09/19/19 09:43 Heparin Sodium (Porcine) (Heparin 5000 units/ml) 5,000 units EVERY 12 HOURS SUBQ 09/11/19 21:00 10/16/19 10:22 09/19/19 21:36 Hydralazine HCl (Apresoline) 25 mg Q6H PRN GT SBP above 160 09/19/19 09:00 12/10/19 08:59 Lisinopril (PriniviL) 20 mg DAILY NG 09/15/19 09:00 10/15/19 08:59 09/19/19 09:46 Pantoprazole (Protonix) 40 mg EVERY 12 HOURS IVP 09/11/19 21:00 10/01/19 10:22 09/19/19 21:35 Sodium Chloride 1,000 ml @ 75 mls/hr [id number] IV 09/18/19 07:45 10/18/19 07:44 09/19/19 21:34 Saeed Goyal MD Sep 20, 2019 10:00
--- NOTE | 2019-09-20 11:26 | Nephrology Progress Note ---
Assessment/Plan Problem List: (1) AUREA (acute kidney injury) Assessment: Serum creatinine rising (2) Cardiopulmonary arrest (3) Respiratory failure (4) Cardiomyopathy (5) Obesity (BMI 30.0-34.9) (6) DMII (diabetes mellitus, type 2) Assessment Acute Renal Failure : AUREA Most likely due to cardiorespiratory arrest and episode of hypotension. Patient also has cardiomyopathy with Ej Fx of 40 % on admission Obese : BMI 34.4 ? DM Other Dx (1) Cardiopulmonary arrest (2) Nosocomial pneumonia (3) Acute respiratory failure (4) COPD (chronic obstructive pulmonary disease) (5) Atrial fibrillation (6) Dementia with behavioral disturbance (7) CAD (coronary artery disease) Plan Discontinue potassium and IV fluid Had tracheostomy September 09 Today's labs reviewed D5 W IV fluids for hypernatremia as needed patient's condition somewhat more stable In GUTIERREZ Adjust blood pressure medications Previously Monitor renal parameters. Serum creatinine improved Monitor urine output. Urine output improved. Avoid nephrotoxics. Weaning as possible. Remains intubated at this time. Correct electrolyte imbalances. Change tube feeding to Glucerna. Subjective ROS Limited/Unobtainable: Yes Objective Objective Last 24 Hour Vital Signs Date Time Temp Pulse Resp B/P (MAP) Pulse Ox O2 Delivery O2 Flow Rate FiO2 09/20/19 11:22 93 19 30 09/20/19 09:28 92 18 30 09/20/19 09:00 152/71 09/20/19 08:00 30 09/20/19 08:00 Mechanical Ventilator 10.0 Mechanical Ventilator 09/20/19 08:00 97.9 93 14 152/71 (98) 96 09/20/19 07:57 94 09/20/19 07:28 93 18 30 09/20/19 04:00 Mechanical Ventilator 10.0 Mechanical Ventilator 09/20/19 04:00 90 09/20/19 04:00 30 09/20/19 04:00 98.0 91 19 147/70 (95) 97 09/20/19 03:05 81 17 30 09/20/19 00:00 98.0 76 14 150/68 (95) 100 09/20/19 00:00 Mechanical Ventilator 10.0 Mechanical Ventilator 09/19/19 23:41 75 09/19/19 22:42 79 18 100 Mechanical Ventilator 30 81 17 30 09/19/19 20:00 Mechanical Ventilator 10.0 Mechanical Ventilator 09/19/19 20:00 97.9 81 17 154/73 (100) 97 09/19/19 20:00 30 09/19/19 19:30 84 16 30 09/19/19 19:28 85 09/19/19 17:29 80 19 30 09/19/19 16:00 84 09/19/19 16:00 30 09/19/19 16:00 Mechanical Ventilator 10.0 Mechanical Ventilator 09/19/19 16:00 97.9 85 19 129/64 (85) 97 09/19/19 15:09 98 18 30 09/19/19 13:09 98 25 30 09/19/19 12:09 Mechanical Ventilator 10.0 Mechanical Ventilator 09/19/19 12:00 97.5 87 20 129/59 (82) 98 09/19/19 12:00 30 09/19/19 11:50 86 Intake and Output 09/19/19 09/20/19 19:00 07:00 Intake Total 1640 ml 1717.5 ml Output Total 701 ml 1000 ml Balance 939 ml 717.5 ml Free Water 200 ml 200 ml IV Total 600 ml 857.5 ml Tube Feeding 720 ml 660 ml Other 120 ml Output Urine Total 700 ml 1000 ml Stool Total 1 ml # Bowel Movements 3 1 Laboratory Tests 09/20/19 07:20: White Blood Count 9.8, Red Blood Count 3.22L, Hemoglobin 10.0L, Hematocrit 29.4L , Mean Corpuscular Volume 91, Mean Corpuscular Hemoglobin 31.0, Mean Corpuscular Hemoglobin Concent 33.9, Red Cell Distribution Width 13.7, Platelet Count 234, Mean Platelet Volume 6.0L, Neutrophils (%) (Auto) 71.8, Lymphocytes ( %) (Auto) 16.8L, Monocytes (%) (Auto) 7.4, Eosinophils (%) (Auto) 3.2H, Basophils (%) (Auto) 0.8, Sodium Level 136, Potassium Level 4.9, Chloride Level 101, Carbon Dioxide Level 32, Anion Gap 3L, Blood Urea Nitrogen 26H, Creatinine 0.7, Estimat Glomerular Filtration Rate > 60, Glucose Level 110H, Calcium Level 9.2 Height (Feet): 5 Height (Inches): 5.00 Weight (Pounds): 210 General Appearance: no apparent distress Neck: other - Trach and vent Respiratory/Chest: decreased breath sounds Abdomen: distended Objective no change Yunior Sexton MD Sep 20, 2019 11:26
[2019-09-20 12:00] VITALS: BP 139/61
[2019-09-20] MEDS ORDERED: Tubing IV Secondary IV ONE (14:03)
[2019-09-20] MEDS ORDERED: 1/2 NS 1000ml IV ONE (14:03)
[2019-09-20] MEDS ORDERED: NS 275ml ONE (14:03)
--- NOTE | 2019-09-20 14:56 | Surgery Progress Note ---
Surgery Progress Note Subjective Procedure Performed Tracheostomy Additional Comments stable comfortable tolerating tf vent okay Objective Last 24 Hour Vital Signs Date Time Temp Pulse Resp B/P (MAP) Pulse Ox O2 Delivery O2 Flow Rate FiO2 09/20/19 13:20 91 23 30 09/20/19 12:04 98 09/20/19 12:03 Mechanical Ventilator 10.0 Mechanical Ventilator 09/20/19 12:00 30 09/20/19 12:00 97.9 94 14 139/61 (87) 99 09/20/19 11:22 93 19 30 09/20/19 09:28 92 18 30 09/20/19 09:00 152/71 09/20/19 08:00 30 09/20/19 08:00 Mechanical Ventilator 10.0 Mechanical Ventilator 09/20/19 08:00 97.9 93 14 152/71 (98) 96 09/20/19 07:57 94 09/20/19 07:28 93 18 30 09/20/19 04:00 Mechanical Ventilator 10.0 Mechanical Ventilator 09/20/19 04:00 90 09/20/19 04:00 30 09/20/19 04:00 98.0 91 19 147/70 (95) 97 09/20/19 03:05 81 17 30 09/20/19 00:00 98.0 76 14 150/68 (95) 100 09/20/19 00:00 Mechanical Ventilator 10.0 Mechanical Ventilator 09/19/19 23:41 75 09/19/19 22:42 79 18 100 Mechanical Ventilator 30 81 17 30 09/19/19 20:00 Mechanical Ventilator 10.0 Mechanical Ventilator 09/19/19 20:00 97.9 81 17 154/73 (100) 97 09/19/19 20:00 30 09/19/19 19:30 84 16 30 09/19/19 19:28 85 09/19/19 17:29 80 19 30 09/19/19 16:00 84 09/19/19 16:00 30 09/19/19 16:00 Mechanical Ventilator 10.0 Mechanical Ventilator 09/19/19 16:00 97.9 85 19 129/64 (85) 97 09/19/19 15:09 98 18 30 I&O Intake and Output 09/19/19 09/20/19 19:00 07:00 Intake Total 1640 ml 1717.5 ml Output Total 701 ml 1000 ml Balance 939 ml 717.5 ml Free Water 200 ml 200 ml IV Total 600 ml 857.5 ml Tube Feeding 720 ml 660 ml Other 120 ml Output Urine Total 700 ml 1000 ml Stool Total 1 ml # Bowel Movements 3 1 Dressing: saturated Wound: other Drains: other Cardiovascular: RSR Respiratory: decreased breath sounds Abdomen: soft, non-tender, present bowel sounds Extremities: no edema, no cyanosis Laboratory Tests Test 09/20/19 07:20 White Blood Count 9.8 K/UL (4.8-10.8) Red Blood Count 3.22 M/UL (4.70-6.10) L Hemoglobin 10.0 G/DL (14.2-18.0) L Hematocrit 29.4 % (42.0-52.0) L Mean Corpuscular Volume 91 FL (80-99) Mean Corpuscular Hemoglobin 31.0 PG (27.0-31.0) Mean Corpuscular Hemoglobin Concent 33.9 G/DL (32.0-36.0) Red Cell Distribution Width 13.7 % (11.6-14.8) Platelet Count 234 K/UL (150-450) Mean Platelet Volume 6.0 FL (6.5-10.1) L Neutrophils (%) (Auto) 71.8 % (45.0-75.0) Lymphocytes (%) (Auto) 16.8 % (20.0-45.0) L Monocytes (%) (Auto) 7.4 % (1.0-10.0) Eosinophils (%) (Auto) 3.2 % (0.0-3.0) H Basophils (%) (Auto) 0.8 % (0.0-2.0) Sodium Level 136 MMOL/L (136-145) Potassium Level 4.9 MMOL/L (3.5-5.1) Chloride Level 101 MMOL/L (98-107) Carbon Dioxide Level 32 MMOL/L (21-32) Anion Gap 3 mmol/L (5-15) L Blood Urea Nitrogen 26 mg/dL (7-18) H Creatinine 0.7 MG/DL (0.55-1.30) Estimat Glomerular Filtration Rate > 60 mL/min (>60) Glucose Level 110 MG/DL (74-106) H Calcium Level 9.2 MG/DL (8.5-10.1) Plan Problems: (1) Nosocomial pneumonia (2) AUREA (acute kidney injury) (3) Cardiomyopathy (4) Obesity (BMI 30.0-34.9) (5) DMII (diabetes mellitus, type 2) (6) Cardiac LV ejection fraction 40% (7) Pulmonary edema (8) Cardiopulmonary arrest Assessment & Plan: Cardiopulmonary arrest septic requiring urgent emergency line placement for pressors and fluids and meds Please see procedure report Full examination performed no other surgical issues found at this time etiology unknown likely surgical in nature Antibiotics fluids Pressors Vent weaning trials right groin site okay. no hematoma. no bleeding left arm picc okay NG tube is present in good position. A partial left lateral decubitus view of the abdomen performed as well as a supine view. The left lateral decubitus view is not adequate as the area of interest which would be the nondependent right side of the abdomen, which is the area of interest was not imaged and is beyond the field-of -view of the x-ray. Bowel gas pattern appears nonobstructive on the basis of the partial images obtained. off pressors labs reviewed cont tube feeds Unable to wean from ventilator. Labs noted ABG noted imaging reviewed cont weaning. if possible extubate otherwise will consider trach extubated improving monitor in ICU for now downgrade re-intubated on vent support on pressors wean pressors will monitor * Interval removal of endotracheal tube. NG tube and left arm PICC line remain in place. * Apparent worsening of aeration with increasing hazy opacities in the bilateral lower lungs which may in part be related to artifact from patient positioning however layering bilateral pleural effusions and bilateral airspace disease not excluded. Follow-up recommended. trach today does not seem to be able to wean s/p trach labs noted exam stable looks more comfortable now downgrade PEG done d/c planning (9) Respiratory failure (10) History of hypertension (11) COPD (chronic obstructive pulmonary disease) (12) CAD (coronary artery disease) (13) Atrial fibrillation (14) Dementia with behavioral disturbance (15) Upper respiratory infection (16) Acute respiratory failure (17) Dyspnea (18) UTI (urinary tract infection) Prosper Hummel Sep 20, 2019 14:56
[2019-09-20 16:00] VITALS: BP 137/66
[2019-09-20 20:00] VITALS: BP 149/68
[2019-09-20] MEDS: Dyna-Hex 2% Top Sol 2oz TOPIC SCH (20:17)
[2019-09-21] VITALS: BP 142/64
[2019-09-21 04:00] VITALS: BP 132/71
--- NOTE | 2019-09-21 04:45 | Progress Note ---
DATE: 09/20/2019 CARDIOLOGY PROGRESS NOTE SUBJECTIVE: The patient remains on ventilator support via tracheostomy. Monitored rhythm, sinus with paroxysms of atrial fibrillation. PHYSICAL EXAMINATION: VITAL SIGNS: Blood pressure parameters stable. Vitals reviewed. LUNGS: Coarse breath sounds. Few rhonchi. Thin secretions. CARDIAC: Regular rhythm and rate. Normal S1, S2. ABDOMEN: Soft. G-tube intact. EXTREMITIES: No edema. LABORATORY DATA: White count 9.8, hemoglobin 10. Sodium 136, potassium 4.9, bicarb 32, BUN 26, and creatinine 0.7. Most recent chest x-ray from September 17 had revealed basilar opacity on the left and improving right infiltrates. IMPRESSION: 1. Continued progress. 2. Not weanable at present. 3. Needs airway protection due to recurring asymptomatic respiratory acidosis and cardiopulmonary arrest. 4. Medication regimen reviewed and reconciled as the patient remains on amiodarone for suppression of atrial arrhythmias. Saeed Sim M.D. DR: ENOC JOB#: [id number] CC:
[2019-09-21 08:37] VITALS: BP 133/69
[2019-09-21] MEDS: Lisinopril 20mg tab NG SCH (09:00)
[2019-09-21] MEDS: Heparin 5000 units/ml inj SUBQ SCH ×2 (09:00→20:16)
[2019-09-21] MEDS: Pantoprazole Inj IVP SCH ×2 (09:00→20:14)
[2019-09-21] MEDS: Amiodarone 200mg tab GT SCH (09:00)
--- NOTE | 2019-09-21 09:42 | Nephrology Progress Note ---
Assessment/Plan Problem List: (1) AUREA (acute kidney injury) Assessment: Serum creatinine rising (2) Cardiopulmonary arrest (3) Respiratory failure (4) Cardiomyopathy (5) Obesity (BMI 30.0-34.9) (6) DMII (diabetes mellitus, type 2) Assessment Acute Renal Failure : AUREA Most likely due to cardiorespiratory arrest and episode of hypotension. Patient also has cardiomyopathy with Ej Fx of 40 % on admission Obese : BMI 34.4 ? DM Other Dx (1) Cardiopulmonary arrest (2) Nosocomial pneumonia (3) Acute respiratory failure (4) COPD (chronic obstructive pulmonary disease) (5) Atrial fibrillation (6) Dementia with behavioral disturbance (7) CAD (coronary artery disease) Plan Discontinue potassium and IV fluid Had tracheostomy September 09 Today's labs reviewed D5 W IV fluids for hypernatremia as needed patient's condition somewhat more stable In GUTIERREZ Adjust blood pressure medications Previously Monitor renal parameters. Serum creatinine improved Monitor urine output. Urine output improved. Avoid nephrotoxics. Weaning as possible. Remains intubated at this time. Correct electrolyte imbalances. Change tube feeding to Glucerna. Subjective ROS Limited/Unobtainable: Yes Objective Objective Last 24 Hour Vital Signs Date Time Temp Pulse Resp B/P (MAP) Pulse Ox O2 Delivery O2 Flow Rate FiO2 09/21/19 08:39 Mechanical Ventilator 10.0 Mechanical Ventilator 09/21/19 08:37 97.6 85 14 133/69 (90) 98 09/21/19 08:36 30 09/21/19 08:00 86 09/21/19 07:20 87 18 30 09/21/19 05:13 89 19 30 09/21/19 04:00 89 09/21/19 04:00 97.5 89 18 132/71 (91) 99 09/21/19 04:00 Mechanical Ventilator 10.0 Mechanical Ventilator 09/21/19 04:00 30 09/21/19 03:15 88 17 30 09/21/19 01:14 83 18 30 09/21/19 00:00 97.7 85 18 142/64 (90) 99 09/21/19 00:00 30 09/21/19 00:00 Mechanical Ventilator 10.0 Mechanical Ventilator 09/20/19 23:57 85 09/20/19 23:26 85 17 30 09/20/19 20:00 30 09/20/19 20:00 86 09/20/19 20:00 98.3 78 14 149/68 (95) 98 09/20/19 20:00 Mechanical Ventilator 10.0 Mechanical Ventilator 09/20/19 19:23 87 21 30 09/20/19 16:54 86 17 30 09/20/19 16:00 Mechanical Ventilator 10.0 Mechanical Ventilator 09/20/19 16:00 30 09/20/19 16:00 97.9 90 14 137/66 (89) 98 09/20/19 15:14 83 09/20/19 14:59 89 20 30 09/20/19 13:20 91 23 30 09/20/19 12:04 98 09/20/19 12:03 Mechanical Ventilator 10.0 Mechanical Ventilator 09/20/19 12:00 30 09/20/19 12:00 97.9 94 14 139/61 (87) 99 09/20/19 11:22 93 19 30 Intake and Output 09/20/19 09/21/19 19:00 07:00 Intake Total 935 ml 1745 ml Output Total 980 ml Balance -45 ml 1745 ml Free Water 200 ml 200 ml IV Total 75 ml 825 ml Tube Feeding 660 ml 720 ml Output Urine Total 980 ml # Bowel Movements 1 No labs available yet Height (Feet): 5 Height (Inches): 5.00 Weight (Pounds): 209 EENT: other - Trach and vent Cardiovascular: tachycardia - Mild Respiratory/Chest: decreased breath sounds Abdomen: absent bowel sounds Objective no change Yunior Sexton MD Sep 21, 2019 09:42
--- NOTE | 2019-09-21 10:05 | Hematology/Onc Progress Note ---
Assessment/Plan Assessment/Plan # Anemia of chronic disease due to underlying chronic medical issues, multifactorial v Gi bleed --> Anemia workup has been ordered, rule out gi bleed --> No evidence of hemolysis is noted, peripheral smear has been reviewed. --> Hgb goal >7. Transfuse prn. --> Epogen or iron at this time is not particularly indicated --> Medications have been reviewed --> low threshold for gi evaluation in case has occult + --> hgb trend 9.4-->10->9.7-->10.4-->9.6 # Leukocytosis with recentl hx Developing PNA --> on abx colisitn-->bactrim --> as per id recs --> covid 19 negative # Respiratory failure is now s/p trach placed 09/10 --> s/p multple intubations and extubations --> as per surg recs # Sepsis s/p Pneumonia (probable asp), Sp RX --> id aware # Hypomagnesemia. --> replete with mg as per nenal # paroxysmal atrial fibrillation. --> hold off on anticoag --> on plavix # Acute on chronic diastolic congestive heart failure mostly clinically compensated. --> as per cards recs # Severe protein-calorie malnutrition. 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 --> as per cards Appreciate consultation and candida Rn Subjective Allergies: Coded Allergies: No Known Allergies (Unverified , 06/03/17) Subjective 09/10 no events, is tolerating trach well, labs noted 09/[address], off plavix, for peg this /sun, hgb 10 09/16 for egd with peg as per gi, labs noted 09/17 s/p peg, on gtube feeds, hgb is better 09/18 sdu, covid results pending, sodium 135, on gt bactrim 09/20 covid 19 negative, vent, no acute distress Objective Objective Current Medications Medications (Trade) Dose Ordered Sig/[facility] Route PRN Reason Start Time Stop Time Status Last Admin Dose Admin Acetaminophen (Tylenol) 650 mg Q4H PRN NG MILD PAIN/T>100.4 09/11/19 17:00 10/01/19 16:59 Amiodarone HCl (Cordarone) 200 mg DAILY GT 09/19/19 09:00 11/30/19 10:21 09/20/19 09:00 Chlorhexidine Gluconate (Kamila-Hex 2%) 1 applic DAILY@2000 TOPIC 09/18/19 20:00 12/17/19 19:59 09/20/19 20:17 Clopidogrel Bisulfate (Plavix) 75 mg DAILY GT 09/18/19 09:00 10/18/19 08:59 09/20/19 09:00 Heparin Sodium (Porcine) (Heparin 5000 units/ml) 5,000 units EVERY 12 HOURS SUBQ 09/11/19 21:00 10/16/19 10:22 09/20/19 20:21 Hydralazine HCl (Apresoline) 25 mg Q6H PRN GT SBP above 160 09/19/19 09:00 12/10/19 08:59 Lisinopril (PriniviL) 20 mg DAILY NG 09/15/19 09:00 10/15/19 08:59 09/20/19 09:00 Pantoprazole (Protonix) 40 mg EVERY 12 HOURS IVP 09/11/19 21:00 10/01/19 10:22 09/20/19 20:17 Sodium Chloride 1,000 ml @ 75 mls/hr [id number] IV 09/18/19 07:45 10/18/19 07:44 09/21/19 01:52 Last 24 Hour Vital Signs Date Time Temp Pulse Resp B/P (MAP) Pulse Ox O2 Delivery O2 Flow Rate FiO2 09/21/19 08:39 Mechanical Ventilator 10.0 Mechanical Ventilator 09/21/19 08:37 97.6 85 14 133/69 (90) 98 09/21/19 08:36 30 09/21/19 08:00 86 09/21/19 07:20 87 18 30 09/21/19 05:13 89 19 30 09/21/19 04:00 89 09/21/19 04:00 97.5 89 18 132/71 (91) 99 09/21/19 04:00 Mechanical Ventilator 10.0 Mechanical Ventilator 09/21/19 04:00 30 09/21/19 03:15 88 17 30 09/21/19 01:14 83 18 30 09/21/19 00:00 97.7 85 18 142/64 (90) 99 09/21/19 00:00 30 09/21/19 00:00 Mechanical Ventilator 10.0 Mechanical Ventilator 09/20/19 23:57 85 09/20/19 23:26 85 17 30 09/20/19 20:00 30 09/20/19 20:00 86 09/20/19 20:00 98.3 78 14 149/68 (95) 98 09/20/19 20:00 Mechanical Ventilator 10.0 Mechanical Ventilator 09/20/19 19:23 87 21 30 09/20/19 16:54 86 17 30 09/20/19 16:00 Mechanical Ventilator 10.0 Mechanical Ventilator 09/20/19 16:00 30 09/20/19 16:00 97.9 90 14 137/66 (89) 98 09/20/19 15:14 83 09/20/19 14:59 89 20 30 09/20/19 13:20 91 23 30 09/20/19 12:04 98 09/20/19 12:03 Mechanical Ventilator 10.0 Mechanical Ventilator 09/20/19 12:00 30 09/20/19 12:00 97.9 94 14 139/61 (87) 99 09/20/19 11:22 93 19 30 09/20/19 09:28 92 18 30 09/20/19 09:00 152/71 09/20/19 08:00 30 09/20/19 08:00 Mechanical Ventilator 10.0 Mechanical Ventilator 09/20/19 08:00 97.9 93 14 152/71 (98) 96 09/20/19 07:57 94 09/20/19 07:28 93 18 30 09/20/19 04:00 Mechanical Ventilator 10.0 Mechanical Ventilator 09/20/19 04:00 90 09/20/19 04:00 30 09/20/19 04:00 98.0 91 19 147/70 (95) 97 09/20/19 03:05 81 17 30 09/20/19 00:00 98.0 76 14 150/68 (95) 100 09/20/19 00:00 Mechanical Ventilator 10.0 Mechanical Ventilator 09/19/19 23:41 75 09/19/19 22:42 79 18 100 Mechanical Ventilator 30 81 17 30 09/19/19 20:00 Mechanical Ventilator 10.0 Mechanical Ventilator 09/19/19 20:00 97.9 81 17 154/73 (100) 97 09/19/19 20:00 30 09/19/19 19:30 84 16 30 09/19/19 19:28 85 09/19/19 17:29 80 19 30 09/19/19 16:00 84 09/19/19 16:00 30 09/19/19 16:00 Mechanical Ventilator 10.0 Mechanical Ventilator 09/19/19 16:00 97.9 85 19 129/64 (85) 97 09/19/19 15:09 98 18 30 09/19/19 13:09 98 25 30 09/19/19 12:09 Mechanical Ventilator 10.0 Mechanical Ventilator 09/19/19 12:00 97.5 87 20 129/59 (82) 98 09/19/19 12:00 30 09/19/19 11:50 86 09/19/19 11:00 86 20 90 Mechanical Ventilator 30 85 20 30 Intake and Output 09/20/19 09/21/19 19:00 07:00 Intake Total 935 ml 1745 ml Output Total 980 ml Balance -45 ml 1745 ml Free Water 200 ml 200 ml IV Total 75 ml 825 ml Tube Feeding 660 ml 720 ml Output Urine Total 980 ml # Bowel Movements 1 Labs Test 09/19/19 05:40 09/20/19 07:20 White Blood Count 9.7 K/UL (4.8-10.8) 9.8 K/UL (4.8-10.8) Red Blood Count 3.04 M/UL (4.70-6.10) 3.22 M/UL (4.70-6.10) Hemoglobin 9.6 G/DL (14.2-18.0) 10.0 G/DL (14.2-18.0) Hematocrit 28.0 % (42.0-52.0) 29.4 % (42.0-52.0) Mean Corpuscular Volume 92 FL (80-99) 91 FL (80-99) Mean Corpuscular Hemoglobin 31.6 PG (27.0-31.0) 31.0 PG (27.0-31.0) Mean Corpuscular Hemoglobin Concent 34.3 G/DL (32.0-36.0) 33.9 G/DL (32.0-36.0) Red Cell Distribution Width 13.7 % (11.6-14.8) 13.7 % (11.6-14.8) Platelet Count 278 K/UL (150-450) 234 K/UL (150-450) Mean Platelet Volume 5.3 FL (6.5-10.1) 6.0 FL (6.5-10.1) Neutrophils (%) (Auto) 71.3 % (45.0-75.0) 71.8 % (45.0-75.0) Lymphocytes (%) (Auto) 18.7 % (20.0-45.0) 16.8 % (20.0-45.0) Monocytes (%) (Auto) 6.3 % (1.0-10.0) 7.4 % (1.0-10.0) Eosinophils (%) (Auto) 3.2 % (0.0-3.0) 3.2 % (0.0-3.0) Basophils (%) (Auto) 0.5 % (0.0-2.0) 0.8 % (0.0-2.0) Erythrocyte Sedimentation Rate 76 MM/HR (0-20) Sodium Level 135 MMOL/L (136-145) 136 MMOL/L (136-145) Potassium Level 4.7 MMOL/L (3.5-5.1) 4.9 MMOL/L (3.5-5.1) Chloride Level 102 MMOL/L (98-107) 101 MMOL/L (98-107) Carbon Dioxide Level 27 MMOL/L (21-32) 32 MMOL/L (21-32) Anion Gap 6 mmol/L (5-15) 3 mmol/L (5-15) Blood Urea Nitrogen 33 mg/dL (7-18) 26 mg/dL (7-18) Creatinine 0.8 MG/DL (0.55-1.30) 0.7 MG/DL (0.55-1.30) Estimat Glomerular Filtration Rate > 60 mL/min (>60) > 60 mL/min (>60) Glucose Level 133 MG/DL (74-106) 110 MG/DL (74-106) Calcium Level 8.7 MG/DL (8.5-10.1) 9.2 MG/DL (8.5-10.1) Total Bilirubin 0.3 MG/DL (0.2-1.0) Aspartate Amino Transf (AST/SGOT) 24 U/L (15-37) Alanine Aminotransferase (ALT/SGPT) 40 U/L (12-78) Alkaline Phosphatase 87 U/L (46-116) Total Protein 5.6 G/DL (6.4-8.2) Albumin 2.2 G/DL (3.4-5.0) Globulin 3.4 g/dL Albumin/Globulin Ratio 0.6 (1.0-2.7) Height (Feet): 5 Height (Inches): 5.00 Weight (Pounds): 209 Objective Physical Exam Vitals: reviewed General Appearance: no apparent distress EENT: other - Remains intubated and on ventilator ++ trach Cardiovascular: normal rate Respiratory/Chest: decreased breath sounds Abdomen: gt+ [place] MD Sep 21, 2019 10:05
[2019-09-21 10:55] LABS: EOSINOPHILS % (AUTO) 5.7 % (0.0-3.0); HEMATOCRIT 27.7 % (42.0-52.0); HEMOGLOBIN 9.3 G/DL (14.2-18.0); LYMPHOCYTES % (AUTO) 24.8 % (20.0-45.0); MEAN CORPUSCULAR VOLUME 92 FL (80-99); NEUTROPHILS % (AUTO) 60.6 % (45.0-75.0); PLATELET COUNT 204 K/UL (150-450); RED BLOOD COUNT 3.02 M/UL (4.70-6.10); RED CELL DISTRIBUTION WIDTH 13.2 % (11.6-14.8); WHITE BLOOD COUNT 7.4 K/UL (4.8-10.8)
[2019-09-21 11:11] LABS: PHOSPHORUS 3.6 MG/DL (2.5-4.9)
[2019-09-21 11:14] LABS: ALANINE AMINOTRANSFERASE 34 U/L (12-78); ALBUMIN 2.1 G/DL (3.4-5.0); ALBUMIN/GLOBULIN RATIO 0.7 (1.0-2.7); ALKALINE PHOSPHATASE 78 U/L (46-116); ANION GAP 5 mmol/L (5-15); ASPARTATE AMINO TRANSFERASE 20 U/L (15-37); BILIRUBIN,TOTAL 0.3 MG/DL (0.2-1.0); BLOOD UREA NITROGEN 19 mg/dL (7-18); CALCIUM 8.3 MG/DL (8.5-10.1); CARBON DIOXIDE 30 MMOL/L (21-32); CHLORIDE 101 MMOL/L (98-107); CREATININE 0.6 MG/DL (0.55-1.30); POTASSIUM 4.6 MMOL/L (3.5-5.1); SODIUM 136 MMOL/L (136-145)
--- NOTE | 2019-09-21 11:22 | General Progress Note ---
Assessment/Plan Problem List: (1) UTI (urinary tract infection) ICD Codes: N39.0 - Urinary tract infection, site not specified SNOMED: 58993801 (2) Acute respiratory failure ICD Codes: J96.00 - Acute respiratory failure, unspecified whether with hypoxia or hypercapnia SNOMED: 61242642 (3) Upper respiratory infection ICD Codes: J06.9 - Acute upper respiratory infection, unspecified SNOMED: 96947774 (4) Dementia with behavioral disturbance ICD Codes: F03.91 - Unspecified dementia with behavioral disturbance SNOMED: 4710564367779 (5) Atrial fibrillation ICD Codes: I48.91 - Unspecified atrial fibrillation SNOMED: 41925834 (6) CAD (coronary artery disease) ICD Codes: I25.10 - Atherosclerotic heart disease of [place] coronary artery without angina pectoris SNOMED: 16137857 (7) COPD (chronic obstructive pulmonary disease) ICD Codes: J44.9 - Chronic obstructive pulmonary disease, unspecified SNOMED: 02840263 (8) History of hypertension ICD Codes: Z86.79 - Personal history of other diseases of the circulatory system SNOMED: 680156655 (9) Respiratory failure ICD Codes: J96.90 - Respiratory failure, unspecified, unspecified whether with hypoxia or hypercapnia SNOMED: 053481601 (10) DMII (diabetes mellitus, type 2) ICD Codes: E11.9 - Type 2 diabetes mellitus without complications SNOMED: 55178250 (11) Obesity (BMI 30.0-34.9) ICD Codes: E66.9 - Obesity, unspecified SNOMED: 730959096417384 (12) Anemia ICD Codes: D64.9 - Anemia, unspecified SNOMED: 459471183 Assessment/Plan: s/p PEG GTF GT care dc planning per primary team Subjective ROS Limited/Unobtainable: No Allergies: Coded Allergies: No Known Allergies (Unverified , 06/03/17) Objective Last 24 Hour Vital Signs Date Time Temp Pulse Resp B/P (MAP) Pulse Ox O2 Delivery O2 Flow Rate FiO2 09/21/19 09:00 133/69 09/21/19 08:39 Mechanical Ventilator 10.0 Mechanical Ventilator 09/21/19 08:37 97.6 85 14 133/69 (90) 98 09/21/19 08:36 30 09/21/19 08:00 86 09/21/19 07:20 87 18 30 09/21/19 05:13 89 19 30 09/21/19 04:00 89 09/21/19 04:00 97.5 89 18 132/71 (91) 99 09/21/19 04:00 Mechanical Ventilator 10.0 Mechanical Ventilator 09/21/19 04:00 30 09/21/19 03:15 88 17 30 09/21/19 01:14 83 18 30 09/21/19 00:00 97.7 85 18 142/64 (90) 99 09/21/19 00:00 30 09/21/19 00:00 Mechanical Ventilator 10.0 Mechanical Ventilator 09/20/19 23:57 85 09/20/19 23:26 85 17 30 09/20/19 20:00 30 09/20/19 20:00 86 09/20/19 20:00 98.3 78 14 149/68 (95) 98 09/20/19 20:00 Mechanical Ventilator 10.0 Mechanical Ventilator 09/20/19 19:23 87 21 30 09/20/19 16:54 86 17 30 09/20/19 16:00 Mechanical Ventilator 10.0 Mechanical Ventilator 09/20/19 16:00 30 09/20/19 16:00 97.9 90 14 137/66 (89) 98 09/20/19 15:14 83 09/20/19 14:59 89 20 30 09/20/19 13:20 91 23 30 09/20/19 12:04 98 09/20/19 12:03 Mechanical Ventilator 10.0 Mechanical Ventilator 09/20/19 12:00 30 09/20/19 12:00 97.9 94 14 139/61 (87) 99 09/20/19 11:22 93 19 30 Intake and Output 09/20/19 09/21/19 19:00 07:00 Intake Total 935 ml 1745 ml Output Total 980 ml Balance -45 ml 1745 ml Free Water 200 ml 200 ml IV Total 75 ml 825 ml Tube Feeding 660 ml 720 ml Output Urine Total 980 ml # Bowel Movements 1 Laboratory Tests 09/21/19 10:35: White Blood Count 7.4, Red Blood Count 3.02L, Hemoglobin 9.3L, Hematocrit 27.7L , Mean Corpuscular Volume 92, Mean Corpuscular Hemoglobin 30.9, Mean Corpuscular Hemoglobin Concent 33.7, Red Cell Distribution Width 13.2, Platelet Count 204, Mean Platelet Volume 6.7, Neutrophils (%) (Auto) 60.6, Lymphocytes (% ) (Auto) 24.8, Monocytes (%) (Auto) 8.0, Eosinophils (%) (Auto) 5.7H, Basophils (%) (Auto) 1.0, Sodium Level 136, Potassium Level 4.6, Chloride Level 101, Carbon Dioxide Level 30, Anion Gap 5, Blood Urea Nitrogen 19H, Creatinine 0.6, Estimat Glomerular Filtration Rate > 60, Glucose Level 132H, Calcium Level 8.3L , Phosphorus Level 3.6, Magnesium Level 1.9, Total Bilirubin 0.3, Aspartate Amino Transf (AST/SGOT) 20, Alanine Aminotransferase (ALT/SGPT) 34, Alkaline Phosphatase 78, Total Protein 5.2L, Albumin 2.1L, Globulin 3.1, Albumin/ Globulin Ratio 0.7L Height (Feet): 5 Height (Inches): 5.00 Weight (Pounds): 209 General Appearance: no apparent distress EENT: normal ENT inspection Neck: supple Cardiovascular: normal rate Respiratory/Chest: decreased breath sounds Abdomen: normal bowel sounds, non tender, soft Extremities: non-tender Valente Rosado MD Sep 21, 2019 11:22
[2019-09-21 12:00] VITALS: BP 137/65
--- NOTE | 2019-09-21 13:28 | Surgery Progress Note ---
Surgery Progress Note Subjective Procedure Performed Tracheostomy Additional Comments no acute events labs ntoed Objective Last 24 Hour Vital Signs Date Time Temp Pulse Resp B/P (MAP) Pulse Ox O2 Delivery O2 Flow Rate FiO2 09/21/19 11:20 80 16 30 09/21/19 09:00 133/69 09/21/19 08:39 Mechanical Ventilator 10.0 Mechanical Ventilator 09/21/19 08:37 97.6 85 14 133/69 (90) 98 09/21/19 08:36 30 09/21/19 08:00 86 09/21/19 07:20 87 18 30 09/21/19 05:13 89 19 30 09/21/19 04:00 89 09/21/19 04:00 97.5 89 18 132/71 (91) 99 09/21/19 04:00 Mechanical Ventilator 10.0 Mechanical Ventilator 09/21/19 04:00 30 09/21/19 03:15 88 17 30 09/21/19 01:14 83 18 30 09/21/19 00:00 97.7 85 18 142/64 (90) 99 09/21/19 00:00 30 09/21/19 00:00 Mechanical Ventilator 10.0 Mechanical Ventilator 09/20/19 23:57 85 09/20/19 23:26 85 17 30 09/20/19 20:00 30 09/20/19 20:00 86 09/20/19 20:00 98.3 78 14 149/68 (95) 98 09/20/19 20:00 Mechanical Ventilator 10.0 Mechanical Ventilator 09/20/19 19:23 87 21 30 09/20/19 16:54 86 17 30 09/20/19 16:00 Mechanical Ventilator 10.0 Mechanical Ventilator 09/20/19 16:00 30 09/20/19 16:00 97.9 90 14 137/66 (89) 98 09/20/19 15:14 83 09/20/19 14:59 89 20 30 I&O Intake and Output 09/20/19 09/21/19 19:00 07:00 Intake Total 935 ml 1745 ml Output Total 980 ml Balance -45 ml 1745 ml Free Water 200 ml 200 ml IV Total 75 ml 825 ml Tube Feeding 660 ml 720 ml Output Urine Total 980 ml # Bowel Movements 1 Dressing: other Wound: other Cardiovascular: RSR Respiratory: decreased breath sounds Abdomen: soft, non-tender, present bowel sounds Extremities: no cyanosis Laboratory Tests Test 09/21/19 10:35 White Blood Count 7.4 K/UL (4.8-10.8) Red Blood Count 3.02 M/UL (4.70-6.10) L Hemoglobin 9.3 G/DL (14.2-18.0) L Hematocrit 27.7 % (42.0-52.0) L Mean Corpuscular Volume 92 FL (80-99) Mean Corpuscular Hemoglobin 30.9 PG (27.0-31.0) Mean Corpuscular Hemoglobin Concent 33.7 G/DL (32.0-36.0) Red Cell Distribution Width 13.2 % (11.6-14.8) Platelet Count 204 K/UL (150-450) Mean Platelet Volume 6.7 FL (6.5-10.1) Neutrophils (%) (Auto) 60.6 % (45.0-75.0) Lymphocytes (%) (Auto) 24.8 % (20.0-45.0) Monocytes (%) (Auto) 8.0 % (1.0-10.0) Eosinophils (%) (Auto) 5.7 % (0.0-3.0) H Basophils (%) (Auto) 1.0 % (0.0-2.0) Sodium Level 136 MMOL/L (136-145) Potassium Level 4.6 MMOL/L (3.5-5.1) Chloride Level 101 MMOL/L (98-107) Carbon Dioxide Level 30 MMOL/L (21-32) Anion Gap 5 mmol/L (5-15) Blood Urea Nitrogen 19 mg/dL (7-18) H Creatinine 0.6 MG/DL (0.55-1.30) Estimat Glomerular Filtration Rate > 60 mL/min (>60) Glucose Level 132 MG/DL (74-106) H Calcium Level 8.3 MG/DL (8.5-10.1) L Phosphorus Level 3.6 MG/DL (2.5-4.9) Magnesium Level 1.9 MG/DL (1.8-2.4) Total Bilirubin 0.3 MG/DL (0.2-1.0) Aspartate Amino Transf (AST/SGOT) 20 U/L (15-37) Alanine Aminotransferase (ALT/SGPT) 34 U/L (12-78) Alkaline Phosphatase 78 U/L (46-116) Total Protein 5.2 G/DL (6.4-8.2) L Albumin 2.1 G/DL (3.4-5.0) L Globulin 3.1 g/dL Albumin/Globulin Ratio 0.7 (1.0-2.7) L Plan Problems: (1) Nosocomial pneumonia (2) AUREA (acute kidney injury) (3) Cardiomyopathy (4) Obesity (BMI 30.0-34.9) (5) DMII (diabetes mellitus, type 2) (6) Cardiac LV ejection fraction 40% (7) Pulmonary edema (8) Cardiopulmonary arrest Assessment & Plan: Cardiopulmonary arrest septic requiring urgent emergency line placement for pressors and fluids and meds Please see procedure report Full examination performed no other surgical issues found at this time etiology unknown likely surgical in nature Antibiotics fluids Pressors Vent weaning trials right groin site okay. no hematoma. no bleeding left arm picc okay NG tube is present in good position. A partial left lateral decubitus view of the abdomen performed as well as a supine view. The left lateral decubitus view is not adequate as the area of interest which would be the nondependent right side of the abdomen, which is the area of interest was not imaged and is beyond the field-of -view of the x-ray. Bowel gas pattern appears nonobstructive on the basis of the partial images obtained. off pressors labs reviewed cont tube feeds Unable to wean from ventilator. Labs noted ABG noted imaging reviewed cont weaning. if possible extubate otherwise will consider trach extubated improving monitor in ICU for now downgrade re-intubated on vent support on pressors wean pressors will monitor * Interval removal of endotracheal tube. NG tube and left arm PICC line remain in place. * Apparent worsening of aeration with increasing hazy opacities in the bilateral lower lungs which may in part be related to artifact from patient positioning however layering bilateral pleural effusions and bilateral airspace disease not excluded. Follow-up recommended. trach today does not seem to be able to wean s/p trach labs noted exam stable looks more comfortable now downgrade PEG done d/c planning (9) Respiratory failure (10) History of hypertension (11) COPD (chronic obstructive pulmonary disease) (12) CAD (coronary artery disease) (13) Atrial fibrillation (14) Dementia with behavioral disturbance (15) Upper respiratory infection (16) Acute respiratory failure (17) Dyspnea (18) UTI (urinary tract infection) Prosper Hummel Sep 21, 2019 13:28
[2019-09-21] MEDS ORDERED: 1/2 NS 1000ml IV ONE (14:00)
[2019-09-21 16:00] VITALS: BP 132/61
[2019-09-21 20:00] VITALS: BP 142/65
[2019-09-21] MEDS: Dyna-Hex 2% Top Sol 2oz TOPIC SCH (20:14)
[2019-09-22] VITALS: BP 137/87
--- NOTE | 2019-09-22 03:00 | Progress Note ---
DATE: 09/21/2019 SUBJECTIVE: The patient is afebrile. Hemodynamically stable. He is alert and awake with his eye contact and he then attempts to avoid eye contact. PHYSICAL EXAMINATION: VITAL SIGNS: Blood pressure 132/61, his pulse is 80, respirations are 14, and temperature is 97.5. HEENT: Eyes were normal. ENT, mucous membranes were moist and intact. NECK: Supple with no JVD without lymph nodes. Tracheostomy site is clean. LUNGS: Clear without rhonchi, rales, or wheezing. HEART: Normal sounds with regular beat. There is no tachycardia at rest. ABDOMEN: Soft, nontender, with normal bowel sounds. Gastrostomy site is clean. EXTREMITIES: Warm without cyanosis, clubbing, or edema. LABORATORY DATA: Hemoglobin 9.3, hematocrit 27.7 with MCV of 92, WBC of 7.4, and platelets are 204. His BUN and creatinine is 19 and 0.6 respectively. His sodium is 136, potassium 4.6, chloride 101, and CO2 30. His calcium is 8.3, his phosphorus is 3.6, and his magnesium is 1.9. We are still waiting for his SARS-11/COVID-19 test, so that the patient can be discharged once the test is negative. Repeat laboratory tests will be done in the a.m. Modesta Mulligan M.D. DR: ZACK JOB#: [id number] CC:
[2019-09-22 04:00] VITALS: BP 135/78
[2019-09-22 05:12] LABS: BASOPHILS % (AUTO) 0.6 % (0.0-2.0); EOSINOPHILS % (AUTO) 5.1 % (0.0-3.0); HEMATOCRIT 26.4 % (42.0-52.0); LYMPHOCYTES % (AUTO) 29.7 % (20.0-45.0); MEAN CORPUSCULAR VOLUME 91 FL (80-99); MONOCYTES % (AUTO) 6.6 % (1.0-10.0); PLATELET COUNT 229 K/UL (150-450); RED BLOOD COUNT 2.92 M/UL (4.70-6.10); RED CELL DISTRIBUTION WIDTH 13.3 % (11.6-14.8); WHITE BLOOD COUNT 7.8 K/UL (4.8-10.8)
[2019-09-22 05:41] LABS: ANION GAP 6 mmol/L (5-15); BLOOD UREA NITROGEN 18 mg/dL (7-18); CARBON DIOXIDE 28 MMOL/L (21-32); CHLORIDE 100 MMOL/L (98-107); CREATININE 0.6 MG/DL (0.55-1.30); POTASSIUM 4.4 MMOL/L (3.5-5.1); SODIUM 134 MMOL/L (136-145)
--- NOTE | 2019-09-22 06:30 | Progress Note ---
DATE: 09/21/2019 SUBJECTIVE: The patient remains on ventilator support. COVID-19 swab is pending. Trach secretions are minimal following tracheostomy. G-tube site clean and dry. Nutrition tolerated. Monitor sinus, rare atrial arrhythmias. OBJECTIVE: VITAL SIGNS: Blood pressure 142/65, pulse 77, respiratory rate 17, afebrile. LUNGS: Coarse breath sounds. No wheezing. HEART: Regular rhythm and rate. Normal S1, S2. ABDOMEN: Soft. EXTREMITIES: No edema. LABORATORY AND DIAGNOSTIC DATA: White count 7.4, hemoglobin 9.3. Potassium 4.6, BUN 19, creatinine 0.6. Magnesium 1.9. Albumin 2.1. IMPRESSION: 1. Mild pulmonary venous congestion. 2. Respiratory failure, 3. Severe protein-calorie malnutrition. PLAN: 1. Await COVID swab. 2. Additional diuresis. 3. Other cardiovascular medications without change. 4. Continue amiodarone therapy for suppression of atrial arrhythmias. Saeed Sim M.D. DR: Bruno JOB#: [id number] CC:
[2019-09-22 08:00] VITALS: BP 129/60
[2019-09-22] MEDS: Pantoprazole Inj IVP SCH ×2 (08:42→20:42)
[2019-09-22] MEDS: Lisinopril 20mg tab NG SCH (08:43)
[2019-09-22] MEDS: Amiodarone 200mg tab GT SCH (08:43)
[2019-09-22] MEDS: Heparin 5000 units/ml inj SUBQ SCH ×2 (08:45→20:42)
--- NOTE | 2019-09-22 09:02 | General Progress Note ---
Assessment/Plan Problem List: (1) UTI (urinary tract infection) ICD Codes: N39.0 - Urinary tract infection, site not specified SNOMED: 42905614 (2) Acute respiratory failure ICD Codes: J96.00 - Acute respiratory failure, unspecified whether with hypoxia or hypercapnia SNOMED: 58680784 (3) Upper respiratory infection ICD Codes: J06.9 - Acute upper respiratory infection, unspecified SNOMED: 35781858 (4) Dementia with behavioral disturbance ICD Codes: F03.91 - Unspecified dementia with behavioral disturbance SNOMED: 2192461514752 (5) Atrial fibrillation ICD Codes: I48.91 - Unspecified atrial fibrillation SNOMED: 21865066 (6) CAD (coronary artery disease) ICD Codes: I25.10 - Atherosclerotic heart disease of [place] coronary artery without angina pectoris SNOMED: 48610554 (7) COPD (chronic obstructive pulmonary disease) ICD Codes: J44.9 - Chronic obstructive pulmonary disease, unspecified SNOMED: 42187118 (8) History of hypertension ICD Codes: Z86.79 - Personal history of other diseases of the circulatory system SNOMED: 479660742 (9) Respiratory failure ICD Codes: J96.90 - Respiratory failure, unspecified, unspecified whether with hypoxia or hypercapnia SNOMED: 324027674 (10) DMII (diabetes mellitus, type 2) ICD Codes: E11.9 - Type 2 diabetes mellitus without complications SNOMED: 37915002 (11) Obesity (BMI 30.0-34.9) ICD Codes: E66.9 - Obesity, unspecified SNOMED: 270669786596297 (12) Anemia ICD Codes: D64.9 - Anemia, unspecified SNOMED: 691165220 Assessment/Plan: s/p PEG GTF GT care dc planning per primary team Subjective ROS Limited/Unobtainable: No Allergies: Coded Allergies: No Known Allergies (Unverified , 06/03/17) Objective Last 24 Hour Vital Signs Date Time Temp Pulse Resp B/P (MAP) Pulse Ox O2 Delivery O2 Flow Rate FiO2 09/22/19 08:43 129/60 09/22/19 08:00 98.1 83 14 129/60 (83) 97 09/22/19 08:00 Mechanical Ventilator 10.0 Mechanical Ventilator 09/22/19 08:00 30 09/22/19 04:00 Mechanical Ventilator 10.0 Mechanical Ventilator 09/22/19 04:00 98.4 83 17 135/78 (97) 98 09/22/19 04:00 81 09/22/19 04:00 30 09/22/19 03:02 80 17 30 09/22/19 00:00 30 09/22/19 00:00 76 09/22/19 00:00 Mechanical Ventilator 10.0 Mechanical Ventilator 09/22/19 00:00 98.6 83 17 137/87 (104) 99 09/21/19 23:18 73 14 30 09/21/19 20:00 30 09/21/19 20:00 97.9 76 17 142/65 (90) 99 09/21/19 20:00 77 09/21/19 20:00 Mechanical Ventilator 10.0 Mechanical Ventilator 09/21/19 19:48 81 14 30 09/21/19 16:00 80 09/21/19 16:00 97.5 88 14 132/61 (84) 98 09/21/19 16:00 30 09/21/19 16:00 Mechanical Ventilator 10.0 Mechanical Ventilator 09/21/19 15:20 76 18 30 09/21/19 12:00 97.7 81 14 137/65 (89) 97 09/21/19 12:00 30 09/21/19 12:00 Mechanical Ventilator 10.0 Mechanical Ventilator 09/21/19 12:00 89 09/21/19 11:20 80 16 30 Intake and Output 09/21/19 09/22/19 19:00 07:00 Intake Total 735 ml 1610 ml Output Total 1000 ml 1200 ml Balance -265 ml 410 ml Free Water 200 ml IV Total 75 ml 750 ml Tube Feeding 660 ml 660 ml Output Urine Total 1000 ml 1200 ml # Bowel Movements 2 Laboratory Tests 09/21/19 10:35: White Blood Count 7.4, Red Blood Count 3.02L, Hemoglobin 9.3L, Hematocrit 27.7L , Mean Corpuscular Volume 92, Mean Corpuscular Hemoglobin 30.9, Mean Corpuscular Hemoglobin Concent 33.7, Red Cell Distribution Width 13.2, Platelet Count 204, Mean Platelet Volume 6.7, Neutrophils (%) (Auto) 60.6, Lymphocytes (% ) (Auto) 24.8, Monocytes (%) (Auto) 8.0, Eosinophils (%) (Auto) 5.7H, Basophils (%) (Auto) 1.0, Sodium Level 136, Potassium Level 4.6, Chloride Level 101, Carbon Dioxide Level 30, Anion Gap 5, Blood Urea Nitrogen 19H, Creatinine 0.6, Estimat Glomerular Filtration Rate > 60, Glucose Level 132H, Calcium Level 8.3L , Phosphorus Level 3.6, Magnesium Level 1.9, Total Bilirubin 0.3, Aspartate Amino Transf (AST/SGOT) 20, Alanine Aminotransferase (ALT/SGPT) 34, Alkaline Phosphatase 78, Total Protein 5.2L, Albumin 2.1L, Globulin 3.1, Albumin/ Globulin Ratio 0.7L 09/22/19 04:00: White Blood Count 7.8, Red Blood Count 2.92L, Hemoglobin 9.0L, Hematocrit 26.4L , Mean Corpuscular Volume 91, Mean Corpuscular Hemoglobin 30.9, Mean Corpuscular Hemoglobin Concent 34.1, Red Cell Distribution Width 13.3, Platelet Count 229, Mean Platelet Volume 5.7L, Neutrophils (%) (Auto) 58.0, Lymphocytes ( %) (Auto) 29.7, Monocytes (%) (Auto) 6.6, Eosinophils (%) (Auto) 5.1H, Basophils (%) (Auto) 0.6, Sodium Level 134L, Potassium Level 4.4, Chloride Level 100, Carbon Dioxide Level 28, Anion Gap 6, Blood Urea Nitrogen 18, Creatinine 0.6, Estimat Glomerular Filtration Rate > 60, Glucose Level 139H, Calcium Level 8.0L Height (Feet): 5 Height (Inches): 5.00 Weight (Pounds): 211 General Appearance: no apparent distress EENT: normal ENT inspection Neck: supple Cardiovascular: normal rate Respiratory/Chest: decreased breath sounds Abdomen: normal bowel sounds, non tender, soft Extremities: non-tender Valente Rosado MD Sep 22, 2019 09:02
--- NOTE | 2019-09-22 10:03 | Surgery Progress Note ---
Surgery Progress Note Subjective Procedure Performed Tracheostomy Additional Comments labs noted exam stable mittens because he keeps pulling at tubes Objective Last 24 Hour Vital Signs Date Time Temp Pulse Resp B/P (MAP) Pulse Ox O2 Delivery O2 Flow Rate FiO2 09/22/19 08:43 129/60 09/22/19 08:00 98.1 83 14 129/60 (83) 97 09/22/19 08:00 Mechanical Ventilator 10.0 Mechanical Ventilator 09/22/19 08:00 30 09/22/19 07:02 86 18 30 09/22/19 04:00 Mechanical Ventilator 10.0 Mechanical Ventilator 09/22/19 04:00 98.4 83 17 135/78 (97) 98 09/22/19 04:00 81 09/22/19 04:00 30 09/22/19 03:02 80 17 30 09/22/19 00:00 30 09/22/19 00:00 76 09/22/19 00:00 Mechanical Ventilator 10.0 Mechanical Ventilator 09/22/19 00:00 98.6 83 17 137/87 (104) 99 09/21/19 23:18 73 14 30 09/21/19 20:00 30 09/21/19 20:00 97.9 76 17 142/65 (90) 99 09/21/19 20:00 77 09/21/19 20:00 Mechanical Ventilator 10.0 Mechanical Ventilator 09/21/19 19:48 81 14 30 09/21/19 16:00 80 09/21/19 16:00 97.5 88 14 132/61 (84) 98 09/21/19 16:00 30 09/21/19 16:00 Mechanical Ventilator 10.0 Mechanical Ventilator 09/21/19 15:20 76 18 30 09/21/19 12:00 97.7 81 14 137/65 (89) 97 09/21/19 12:00 30 09/21/19 12:00 Mechanical Ventilator 10.0 Mechanical Ventilator 09/21/19 12:00 89 09/21/19 11:20 80 16 30 I&O Intake and Output 09/21/19 09/22/19 19:00 07:00 Intake Total 735 ml 1610 ml Output Total 1000 ml 1200 ml Balance -265 ml 410 ml Free Water 200 ml IV Total 75 ml 750 ml Tube Feeding 660 ml 660 ml Output Urine Total 1000 ml 1200 ml # Bowel Movements 2 Dressing: dry Wound: clean Cardiovascular: RSR Respiratory: clear, decreased breath sounds Abdomen: non-tender, present bowel sounds Extremities: no tenderness, no cyanosis Laboratory Tests Test 09/21/19 10:35 09/22/19 04:00 White Blood Count 7.4 K/UL (4.8-10.8) 7.8 K/UL (4.8-10.8) Red Blood Count 3.02 M/UL (4.70-6.10) L 2.92 M/UL (4.70-6.10) L Hemoglobin 9.3 G/DL (14.2-18.0) L 9.0 G/DL (14.2-18.0) L Hematocrit 27.7 % (42.0-52.0) L 26.4 % (42.0-52.0) L Mean Corpuscular Volume 92 FL (80-99) 91 FL (80-99) Mean Corpuscular Hemoglobin 30.9 PG (27.0-31.0) 30.9 PG (27.0-31.0) Mean Corpuscular Hemoglobin Concent 33.7 G/DL (32.0-36.0) 34.1 G/DL (32.0-36.0) Red Cell Distribution Width 13.2 % (11.6-14.8) 13.3 % (11.6-14.8) Platelet Count 204 K/UL (150-450) 229 K/UL (150-450) Mean Platelet Volume 6.7 FL (6.5-10.1) 5.7 FL (6.5-10.1) L Neutrophils (%) (Auto) 60.6 % (45.0-75.0) 58.0 % (45.0-75.0) Lymphocytes (%) (Auto) 24.8 % (20.0-45.0) 29.7 % (20.0-45.0) Monocytes (%) (Auto) 8.0 % (1.0-10.0) 6.6 % (1.0-10.0) Eosinophils (%) (Auto) 5.7 % (0.0-3.0) H 5.1 % (0.0-3.0) H Basophils (%) (Auto) 1.0 % (0.0-2.0) 0.6 % (0.0-2.0) Sodium Level 136 MMOL/L (136-145) 134 MMOL/L (136-145) L Potassium Level 4.6 MMOL/L (3.5-5.1) 4.4 MMOL/L (3.5-5.1) Chloride Level 101 MMOL/L (98-107) 100 MMOL/L (98-107) Carbon Dioxide Level 30 MMOL/L (21-32) 28 MMOL/L (21-32) Anion Gap 5 mmol/L (5-15) 6 mmol/L (5-15) Blood Urea Nitrogen 19 mg/dL (7-18) H 18 mg/dL (7-18) Creatinine 0.6 MG/DL (0.55-1.30) 0.6 MG/DL (0.55-1.30) Estimat Glomerular Filtration Rate > 60 mL/min (>60) > 60 mL/min (>60) Glucose Level 132 MG/DL (74-106) H 139 MG/DL (74-106) H Calcium Level 8.3 MG/DL (8.5-10.1) L 8.0 MG/DL (8.5-10.1) L Phosphorus Level 3.6 MG/DL (2.5-4.9) Magnesium Level 1.9 MG/DL (1.8-2.4) Total Bilirubin 0.3 MG/DL (0.2-1.0) Aspartate Amino Transf (AST/SGOT) 20 U/L (15-37) Alanine Aminotransferase (ALT/SGPT) 34 U/L (12-78) Alkaline Phosphatase 78 U/L (46-116) Total Protein 5.2 G/DL (6.4-8.2) L Albumin 2.1 G/DL (3.4-5.0) L Globulin 3.1 g/dL Albumin/Globulin Ratio 0.7 (1.0-2.7) L Plan Problems: (1) Nosocomial pneumonia (2) AUREA (acute kidney injury) (3) Cardiomyopathy (4) Obesity (BMI 30.0-34.9) (5) DMII (diabetes mellitus, type 2) (6) Cardiac LV ejection fraction 40% (7) Pulmonary edema (8) Cardiopulmonary arrest Assessment & Plan: Cardiopulmonary arrest septic requiring urgent emergency line placement for pressors and fluids and meds Please see procedure report Full examination performed no other surgical issues found at this time etiology unknown likely surgical in nature Antibiotics fluids Pressors Vent weaning trials right groin site okay. no hematoma. no bleeding left arm picc okay NG tube is present in good position. A partial left lateral decubitus view of the abdomen performed as well as a supine view. The left lateral decubitus view is not adequate as the area of interest which would be the nondependent right side of the abdomen, which is the area of interest was not imaged and is beyond the field-of -view of the x-ray. Bowel gas pattern appears nonobstructive on the basis of the partial images obtained. off pressors labs reviewed cont tube feeds Unable to wean from ventilator. Labs noted ABG noted imaging reviewed cont weaning. if possible extubate otherwise will consider trach extubated improving monitor in ICU for now downgrade re-intubated on vent support on pressors wean pressors will monitor * Interval removal of endotracheal tube. NG tube and left arm PICC line remain in place. * Apparent worsening of aeration with increasing hazy opacities in the bilateral lower lungs which may in part be related to artifact from patient positioning however layering bilateral pleural effusions and bilateral airspace disease not excluded. Follow-up recommended. trach today does not seem to be able to wean s/p trach labs noted exam stable looks more comfortable now downgrade PEG done d/c planning (9) Respiratory failure (10) History of hypertension (11) COPD (chronic obstructive pulmonary disease) (12) CAD (coronary artery disease) (13) Atrial fibrillation (14) Dementia with behavioral disturbance (15) Upper respiratory infection (16) Acute respiratory failure (17) Dyspnea (18) UTI (urinary tract infection) Prosper Hummel Sep 22, 2019 10:03
--- NOTE | 2019-09-22 10:42 | Nephrology Progress Note ---
Assessment/Plan Problem List: (1) AUREA (acute kidney injury) Assessment: Serum creatinine rising (2) Cardiopulmonary arrest (3) Respiratory failure (4) Cardiomyopathy (5) Obesity (BMI 30.0-34.9) (6) DMII (diabetes mellitus, type 2) Assessment Acute Renal Failure : AUREA Most likely due to cardiorespiratory arrest and episode of hypotension. Patient also has cardiomyopathy with Ej Fx of 40 % on admission Obese : BMI 34.4 ? DM Other Dx (1) Cardiopulmonary arrest (2) Nosocomial pneumonia (3) Acute respiratory failure (4) COPD (chronic obstructive pulmonary disease) (5) Atrial fibrillation (6) Dementia with behavioral disturbance (7) CAD (coronary artery disease) Plan Discontinue potassium and IV fluid Had tracheostomy September 09 Today's labs reviewed D5 W IV fluids for hypernatremia as needed patient's condition somewhat more stable In [facility] Adjust blood pressure medications Previously Monitor renal parameters. Serum creatinine improved Monitor urine output. Urine output improved. Avoid nephrotoxics. Weaning as possible. Remains intubated at this time. Correct electrolyte imbalances. Change tube feeding to Glucerna. Subjective ROS Limited/Unobtainable: Yes Objective Objective Last 24 Hour Vital Signs Date Time Temp Pulse Resp B/P (MAP) Pulse Ox O2 Delivery O2 Flow Rate FiO2 09/22/19 08:43 129/60 09/22/19 08:00 98.1 83 14 129/60 (83) 97 09/22/19 08:00 Mechanical Ventilator 10.0 Mechanical Ventilator 09/22/19 08:00 30 09/22/19 07:45 82 09/22/19 07:02 86 18 30 09/22/19 04:00 Mechanical Ventilator 10.0 Mechanical Ventilator 09/22/19 04:00 98.4 83 17 135/78 (97) 98 09/22/19 04:00 81 09/22/19 04:00 30 09/22/19 03:02 80 17 30 09/22/19 00:00 30 09/22/19 00:00 76 09/22/19 00:00 Mechanical Ventilator 10.0 Mechanical Ventilator 09/22/19 00:00 98.6 83 17 137/87 (104) 99 09/21/19 23:18 73 14 30 09/21/19 20:00 30 09/21/19 20:00 97.9 76 17 142/65 (90) 99 09/21/19 20:00 77 09/21/19 20:00 Mechanical Ventilator 10.0 Mechanical Ventilator 09/21/19 19:48 81 14 30 09/21/19 16:00 80 09/21/19 16:00 97.5 88 14 132/61 (84) 98 09/21/19 16:00 30 09/21/19 16:00 Mechanical Ventilator 10.0 Mechanical Ventilator 09/21/19 15:20 76 18 30 09/21/19 12:00 97.7 81 14 137/65 (89) 97 09/21/19 12:00 30 09/21/19 12:00 Mechanical Ventilator 10.0 Mechanical Ventilator 09/21/19 12:00 89 09/21/19 11:20 80 16 30 Intake and Output 09/21/19 09/22/19 19:00 07:00 Intake Total 735 ml 1610 ml Output Total 1000 ml 1200 ml Balance -265 ml 410 ml Free Water 200 ml IV Total 75 ml 750 ml Tube Feeding 660 ml 660 ml Output Urine Total 1000 ml 1200 ml # Bowel Movements 2 Laboratory Tests 09/22/19 04:00: White Blood Count 7.8, Red Blood Count 2.92L, Hemoglobin 9.0L, Hematocrit 26.4L , Mean Corpuscular Volume 91, Mean Corpuscular Hemoglobin 30.9, Mean Corpuscular Hemoglobin Concent 34.1, Red Cell Distribution Width 13.3, Platelet Count 229, Mean Platelet Volume 5.7L, Neutrophils (%) (Auto) 58.0, Lymphocytes ( %) (Auto) 29.7, Monocytes (%) (Auto) 6.6, Eosinophils (%) (Auto) 5.1H, Basophils (%) (Auto) 0.6, Sodium Level 134L, Potassium Level 4.4, Chloride Level 100, Carbon Dioxide Level 28, Anion Gap 6, Blood Urea Nitrogen 18, Creatinine 0.6, Estimat Glomerular Filtration Rate > 60, Glucose Level 139H, Calcium Level 8.0L Height (Feet): 5 Height (Inches): 5.00 Weight (Pounds): 211 General Appearance: no apparent distress EENT: other - Trached and vent Cardiovascular: tachycardia Respiratory/Chest: decreased breath sounds Abdomen: distended Objective no change Yunior Sexton MD Sep 22, 2019 10:42
[2019-09-22 12:00] VITALS: BP 145/75
--- NOTE | 2019-09-22 12:15 | Pulmonolgy Critical Care Note ---
Critical Care - Asmt/Plan Problems: (1) Acute respiratory failure Assessment & Plan: s/p trach (2) COPD (chronic obstructive pulmonary disease) (3) Atrial fibrillation Assessment & Plan: controlled (4) History of hypertension (5) Cardiopulmonary arrest (6) Cardiac LV ejection fraction 40% (7) DMII (diabetes mellitus, type 2) (8) Nosocomial pneumonia (9) Dementia with behavioral disturbance Respiratory: monitor respiratory rate, adjust FIO2, CXR Cardiac: continue pressors, stop pressors, continue to monitor HR/BP Infectious Disease: check cultures Endocrine: monitor blood sugar Hematologic: monitor H/H, transfuse if hgb<8.5 Neurologic: PRN Ativan, PRN Morphine, keep patient comfortable Prophylaxis: Protonix, Heparin Notes Reviewed: hammer smith, renal Discussed with: nurses, onsite case managerit program manager - Objective Last 24 Hour Vital Signs Date Time Temp Pulse Resp B/P (MAP) Pulse Ox O2 Delivery O2 Flow Rate FiO2 09/22/19 11:10 83 18 30 09/22/19 08:43 129/60 09/22/19 08:00 98.1 83 14 129/60 (83) 97 09/22/19 08:00 Mechanical Ventilator 10.0 Mechanical Ventilator 09/22/19 08:00 30 09/22/19 07:45 82 09/22/19 07:02 86 18 30 09/22/19 04:00 Mechanical Ventilator 10.0 Mechanical Ventilator 09/22/19 04:00 98.4 83 17 135/78 (97) 98 09/22/19 04:00 81 09/22/19 04:00 30 09/22/19 03:02 80 17 30 09/22/19 00:00 30 09/22/19 00:00 76 09/22/19 00:00 Mechanical Ventilator 10.0 Mechanical Ventilator 09/22/19 00:00 98.6 83 17 137/87 (104) 99 09/21/19 23:18 73 14 30 09/21/19 20:00 30 09/21/19 20:00 97.9 76 17 142/65 (90) 99 09/21/19 20:00 77 09/21/19 20:00 Mechanical Ventilator 10.0 Mechanical Ventilator 09/21/19 19:48 81 14 30 09/21/19 16:00 80 09/21/19 16:00 97.5 88 14 132/61 (84) 98 09/21/19 16:00 30 09/21/19 16:00 Mechanical Ventilator 10.0 Mechanical Ventilator 09/21/19 15:20 76 18 30 Status: awake Condition: critical HEENT: atraumatic Neck: full ROM Heart: HR/BP stable Abdomen: soft, active bowel sounds Extremities: edema Micro: Microbiology Date/Time Source Procedure Growth Status 09/20/19 12:00 Nasopharynx Coronavirus COVID-19 PCR ([facility]) - Final Complete Accucheck: 150 Critical Care - Subjective ROS Limited/Unobtainable: Yes Condition: critical, improving EKG Rhythm: Sinus Rhythm FI02: 30 Vent Support Breath Rate: 14 Vent Support Mode: AC Vent Tidal Volume: 500 Sputum Amount: Small PEEP: 5.0 PIP: 24 Tube Feeding Amount: 60 I&O: Intake and Output 09/21/19 09/22/19 19:00 07:00 Intake Total 735 ml 1610 ml Output Total 1000 ml 1200 ml Balance -265 ml 410 ml Free Water 200 ml IV Total 75 ml 750 ml Tube Feeding 660 ml 660 ml Output Urine Total 1000 ml 1200 ml # Bowel Movements 2 CXR: clear ET-Tube: 7.5 ET Position: 24 Labs: Laboratory Tests Test 09/22/19 04:00 White Blood Count 7.8 K/UL (4.8-10.8) Red Blood Count 2.92 M/UL (4.70-6.10) L Hemoglobin 9.0 G/DL (14.2-18.0) L Hematocrit 26.4 % (42.0-52.0) L Mean Corpuscular Volume 91 FL (80-99) Mean Corpuscular Hemoglobin 30.9 PG (27.0-31.0) Mean Corpuscular Hemoglobin Concent 34.1 G/DL (32.0-36.0) Red Cell Distribution Width 13.3 % (11.6-14.8) Platelet Count 229 K/UL (150-450) Mean Platelet Volume 5.7 FL (6.5-10.1) L Neutrophils (%) (Auto) 58.0 % (45.0-75.0) Lymphocytes (%) (Auto) 29.7 % (20.0-45.0) Monocytes (%) (Auto) 6.6 % (1.0-10.0) Eosinophils (%) (Auto) 5.1 % (0.0-3.0) H Basophils (%) (Auto) 0.6 % (0.0-2.0) Sodium Level 134 MMOL/L (136-145) L Potassium Level 4.4 MMOL/L (3.5-5.1) Chloride Level 100 MMOL/L (98-107) Carbon Dioxide Level 28 MMOL/L (21-32) Anion Gap 6 mmol/L (5-15) Blood Urea Nitrogen 18 mg/dL (7-18) Creatinine 0.6 MG/DL (0.55-1.30) Estimat Glomerular Filtration Rate > 60 mL/min (>60) Glucose Level 139 MG/DL (74-106) H Calcium Level 8.0 MG/DL (8.5-10.1) L Nicole Graves MD Sep 22, 2019 12:15
--- NOTE | 2019-09-22 13:10 | Infectious Diseases Prog Note ---
Assessment/Plan Assessment/Plan ASSESSMENT: The patient is a 79-year-old male with: Multiple reintubations, likely cannot maintain airway now SP trach Low grade temp, SP No leukocytosis Developing PNA on rx -COVID 19 neg x2 (09/17, 09/19) 09/17 CXR: Hazy left basilar opacity, decreased from prior exam, probably reflects overlapping soft tissue but residual infiltrate also possible. Right basilar infiltrate has markedly improved. 09/13 CXR: No significant interval change in hazy basilar opacities , likely combination of small pleural effusions and atelectasis/consolidation. 08/31 CXR: There is a hazy opacity at the left lung base again noted unchanged. Mild linear densities are seen in the right midlung which may be atelectasis or scarring. 09/02 CXR: Hazy basilar opacities, most likely due to overlying soft tissue shadows but hazy infiltrates also possible. If the latter, stable on the left, new or increased on the right. 09/04: Suspected pneumonia at the left lung base 09/05 CXR: Bilateral lower lobe infiltrates/atelectasis, similar to prior. 09/08 CXR: Hazy left greater than right basilar opacity and borderline interstitial congestive changes persist. Leukocytosis; Sp Fever , sp Sepsis, Sp Pneumonia (probable asp), Sp RX -08/28 CXR: Interval removal of endotracheal tube. NG tube and left arm PICC line remain in place. Apparent worsening of aeration with increasing hazy opacities in the bilateral lower lungs which may in part be related to artifact from patient positioning however layering bilateral pleural effusions and bilateral airspace disease not excluded. -08/13 Scx: MDR-ACB (Tygacil LANI: 4) - CXR: 1. Streaky opacities in the right lower lung may represent atelectasis versus scarring. Left basilar opacity may represent atelectasis. Component of pneumonia is not excluded. Pulmonary vasculature congestion. -08/01 ucx NTD -sp cx: nl anastacio Urinary tract infection, SP Rx 08/31 SP rapid response and reintubation 08/17 Sp code blue and intubation , extubated 08/27 07/31 Sp Code blue and intubation , sp extubation 08/12 , Hyperlipidemia. COPD. History of GERD. History of encephalopathy. History of CAD/MD. History of cardiomyopathy. Hypertension. PLAN: Monitor off abx - 09/19/19 SP INH colistin and bactrim #10/ - 09/09 SP colistin IV #6 -08/28 SP Colistin INH (MDR-ACB) # 14 - 08/22/19 SP Merrem 10 - 08/14 SP IV Vanco # 4 -08/07 SP Zosyn and IV Vanco # 7/ , -08/01 SP Rocephin day # 07/31 sp sp Dox # 6 Monitor CBC. Monitor BMP. monitor temp and VS Monitor chest x-ray cont trach care COVID19 neg x2; ok to dc isolation DW RN Subjective Allergies: Coded Allergies: No Known Allergies (Unverified , 06/03/17) Subjective afebrile no leukocytosis off abx Fio2 30% COVID neg x2 Objective Vital Signs Last 24 Hour Vital Signs Date Time Temp Pulse Resp B/P (MAP) Pulse Ox O2 Delivery O2 Flow Rate FiO2 09/22/19 11:49 80 09/22/19 11:10 83 18 30 09/22/19 08:43 129/60 09/22/19 08:00 98.1 83 14 129/60 (83) 97 09/22/19 08:00 Mechanical Ventilator 10.0 Mechanical Ventilator 09/22/19 08:00 30 09/22/19 07:45 82 09/22/19 07:02 86 18 30 09/22/19 04:00 Mechanical Ventilator 10.0 Mechanical Ventilator 09/22/19 04:00 98.4 83 17 135/78 (97) 98 09/22/19 04:00 81 09/22/19 04:00 30 09/22/19 03:02 80 17 30 09/22/19 00:00 30 09/22/19 00:00 76 09/22/19 00:00 Mechanical Ventilator 10.0 Mechanical Ventilator 09/22/19 00:00 98.6 83 17 137/87 (104) 99 09/21/19 23:18 73 14 30 09/21/19 20:00 30 09/21/19 20:00 97.9 76 17 142/65 (90) 99 09/21/19 20:00 77 09/21/19 20:00 Mechanical Ventilator 10.0 Mechanical Ventilator 09/21/19 19:48 81 14 30 09/21/19 16:00 80 09/21/19 16:00 97.5 88 14 132/61 (84) 98 09/21/19 16:00 30 09/21/19 16:00 Mechanical Ventilator 10.0 Mechanical Ventilator 09/21/19 15:20 76 18 30 Height (Feet): 5 Height (Inches): 5.00 Weight (Pounds): 211 Objective HEENT: Thin trach secretions. LUNGS: Bilateral breath sounds with rhonchi. CARDIAC: Regular rhythm and rate. Normal S1 and S2. ABDOMEN: Soft. EXTREMITIES: Trace edema. Microbiology Date/Time Source Procedure Growth Status 09/20/19 12:00 Nasopharynx Coronavirus COVID-19 PCR ([facility]) - Final Complete Laboratory Tests Test 09/22/19 04:00 White Blood Count 7.8 K/UL (4.8-10.8) Red Blood Count 2.92 M/UL (4.70-6.10) L Hemoglobin 9.0 G/DL (14.2-18.0) L Hematocrit 26.4 % (42.0-52.0) L Mean Corpuscular Volume 91 FL (80-99) Mean Corpuscular Hemoglobin 30.9 PG (27.0-31.0) Mean Corpuscular Hemoglobin Concent 34.1 G/DL (32.0-36.0) Red Cell Distribution Width 13.3 % (11.6-14.8) Platelet Count 229 K/UL (150-450) Mean Platelet Volume 5.7 FL (6.5-10.1) L Neutrophils (%) (Auto) 58.0 % (45.0-75.0) Lymphocytes (%) (Auto) 29.7 % (20.0-45.0) Monocytes (%) (Auto) 6.6 % (1.0-10.0) Eosinophils (%) (Auto) 5.1 % (0.0-3.0) H Basophils (%) (Auto) 0.6 % (0.0-2.0) Sodium Level 134 MMOL/L (136-145) L Potassium Level 4.4 MMOL/L (3.5-5.1) Chloride Level 100 MMOL/L (98-107) Carbon Dioxide Level 28 MMOL/L (21-32) Anion Gap 6 mmol/L (5-15) Blood Urea Nitrogen 18 mg/dL (7-18) Creatinine 0.6 MG/DL (0.55-1.30) Estimat Glomerular Filtration Rate > 60 mL/min (>60) Glucose Level 139 MG/DL (74-106) H Calcium Level 8.0 MG/DL (8.5-10.1) L Current Medications Medications (Trade) Dose Ordered Sig/Amaris Route PRN Reason Start Time Stop Time Status Last Admin Dose Admin Acetaminophen (Tylenol) 650 mg Q4H PRN NG MILD PAIN/T>100.4 09/11/19 17:00 10/01/19 16:59 Amiodarone HCl (Cordarone) 200 mg DAILY GT 09/19/19 09:00 11/30/19 10:21 09/22/19 08:43 Chlorhexidine Gluconate (Kamila-Hex 2%) 1 applic DAILY@2000 TOPIC 09/18/19 20:00 12/17/19 19:59 09/21/19 20:14 Clopidogrel Bisulfate (Plavix) 75 mg DAILY GT 09/18/19 09:00 10/18/19 08:59 09/22/19 08:42 Heparin Sodium (Porcine) (Heparin 5000 units/ml) 5,000 units EVERY 12 HOURS SUBQ 09/11/19 21:00 10/16/19 10:22 09/22/19 08:45 Hydralazine HCl (Apresoline) 25 mg Q6H PRN GT SBP above 160 09/19/19 09:00 12/10/19 08:59 Lisinopril (PriniviL) 20 mg DAILY NG 09/15/19 09:00 10/15/19 08:59 09/22/19 08:43 Pantoprazole (Protonix) 40 mg EVERY 12 HOURS IVP 09/11/19 21:00 10/01/19 10:22 09/22/19 08:42 Sodium Chloride 1,000 ml @ 75 mls/hr [id number] IV 09/18/19 07:45 10/18/19 07:44 09/22/19 05:33 Ritu Lozano M.D. Sep 22, 2019 13:10
--- NOTE | 2019-09-22 14:18 | Hematology/Onc Progress Note ---
Assessment/Plan Assessment/Plan # Anemia of chronic disease due to underlying chronic medical issues, multifactorial v Gi bleed --> Anemia workup has been ordered, rule out gi bleed --> No evidence of hemolysis is noted, peripheral smear has been reviewed. --> Hgb goal >7. Transfuse prn. --> Epogen or iron at this time is not particularly indicated --> Medications have been reviewed --> low threshold for gi evaluation in case has occult + --> hgb trend 9.4-->10->9.7-->10.4-->9.6 -->9 # Leukocytosis with recentl hx Developing PNA --> on abx colisitn-->bactrim --> as per id recs --> covid 19 negative # Respiratory failure is now s/p trach placed 09/10 --> s/p multple intubations and extubations --> S/p trach --> as per surg recs # Sepsis s/p Pneumonia (probable asp), Sp RX --> id aware # Hypomagnesemia. --> replete with mg as per nenal # paroxysmal atrial fibrillation. --> hold off on anticoag --> on plavix # Acute on chronic diastolic congestive heart failure mostly clinically compensated. --> as per cards recs # Severe protein-calorie malnutrition. 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 --> as per cards Appreciate consultation and candida Rn Subjective HEENT: Denies: no symptoms, eye pain, blurred vision, tearing, double vision, ear pain, ear discharge, nose pain, nose congestion, throat pain, throat swelling, mouth pain, mouth swelling, other Cardiovascular: Denies: no symptoms, chest pain, edema, irregular heart rate, lightheadedness, palpitations, syncope, other Respiratory: Denies: no symptoms, cough, shortness of breath, SOB with excertion, SOB at rest, sputum, wheezing, other Gastrointestinal/Abdominal: Denies: no symptoms, abdomen distended, abdominal pain, black stools, tarry stools, blood in stool, constipated, diarrhea, difficulty swallowing, nausea, poor appetite, poor fluid intake, rectal bleeding , vomiting, other Genitourinary: Denies: no symptoms, burning, discharge, frequency, flank pain, hematuria, incontinence, pain, urgency, other Neurologic/Psychiatric: Denies: no symptoms, anxiety, depressed, emotional problems, headache, numbness, paresthesia, pre-existing deficit, seizure, tingling, tremors, weakness, other Endocrine: Denies: no symptoms, excessive sweating, flushing, intolerance to cold, intolerance to heat, increased hunger, increased thirst, increased urine, unexplained weight gain, unexplained weight loss, other Hematologic/Lymphatic: Denies: no symptoms, anemia, easy bleeding, easy bruising, adenopathy, other Allergies: Coded Allergies: No Known Allergies (Unverified , 06/03/17) Subjective 09/10 no events, is tolerating trach well, labs noted 09/[address], off plavix, for peg this /sun, hgb 10 09/16 for egd with peg as per gi, labs noted 09/17 s/p peg, on gtube feeds, hgb is better 09/18 sdu, covid results pending, sodium 135, on gt bactrim 09/20 covid 19 negative, vent, no acute distress 09/21 no bleeding, labs have been reviewed, hgb 9 Objective Objective Current Medications Medications (Trade) Dose Ordered Sig/Amaris Route PRN Reason Start Time Stop Time Status Last Admin Dose Admin Acetaminophen (Tylenol) 650 mg Q4H PRN NG MILD PAIN/T>100.4 09/11/19 17:00 10/01/19 16:59 Amiodarone HCl (Cordarone) 200 mg DAILY GT 09/19/19 09:00 11/30/19 10:21 09/22/19 08:43 Chlorhexidine Gluconate (Kamila-Hex 2%) 1 applic DAILY@1999 TOPIC 09/18/19 20:00 12/17/19 19:59 09/21/19 20:14 Clopidogrel Bisulfate (Plavix) 75 mg DAILY GT 09/18/19 09:00 10/18/19 08:59 09/22/19 08:42 Heparin Sodium (Porcine) (Heparin 5000 units/ml) 5,000 units EVERY 12 HOURS SUBQ 09/11/19 21:00 10/16/19 10:22 09/22/19 08:45 Hydralazine HCl (Apresoline) 25 mg Q6H PRN GT SBP above 160 09/19/19 09:00 12/10/19 08:59 Lisinopril (PriniviL) 20 mg DAILY NG 09/15/19 09:00 10/15/19 08:59 09/22/19 08:43 Pantoprazole (Protonix) 40 mg EVERY 12 HOURS IVP 09/11/19 21:00 10/01/19 10:22 09/22/19 08:42 Sodium Chloride 1,000 ml @ 75 mls/hr [id number] IV 09/18/19 07:45 10/18/19 07:44 09/22/19 05:33 Last 24 Hour Vital Signs Date Time Temp Pulse Resp B/P (MAP) Pulse Ox O2 Delivery O2 Flow Rate FiO2 09/22/19 12:00 Mechanical Ventilator 10.0 Mechanical Ventilator 09/22/19 12:00 30 09/22/19 11:49 80 09/22/19 11:10 83 18 30 09/22/19 08:43 129/60 09/22/19 08:00 98.1 83 14 129/60 (83) 97 09/22/19 08:00 Mechanical Ventilator 10.0 Mechanical Ventilator 09/22/19 08:00 30 09/22/19 07:45 82 09/22/19 07:02 86 18 30 09/22/19 04:00 Mechanical Ventilator 10.0 Mechanical Ventilator 09/22/19 04:00 98.4 83 17 135/78 (97) 98 09/22/19 04:00 81 09/22/19 04:00 30 09/22/19 03:02 80 17 30 09/22/19 00:00 30 09/22/19 00:00 76 09/22/19 00:00 Mechanical Ventilator 10.0 Mechanical Ventilator 09/22/19 00:00 98.6 83 17 137/87 (104) 99 09/21/19 23:18 73 14 30 09/21/19 20:00 30 09/21/19 20:00 97.9 76 17 142/65 (90) 99 09/21/19 20:00 77 09/21/19 20:00 Mechanical Ventilator 10.0 Mechanical Ventilator 09/21/19 19:48 81 14 30 09/21/19 16:00 80 09/21/19 16:00 97.5 88 14 132/61 (84) 98 09/21/19 16:00 30 09/21/19 16:00 Mechanical Ventilator 10.0 Mechanical Ventilator 09/21/19 15:20 76 18 30 09/21/19 12:00 97.7 81 14 137/65 (89) 97 09/21/19 12:00 30 09/21/19 12:00 Mechanical Ventilator 10.0 Mechanical Ventilator 09/21/19 12:00 89 09/21/19 11:20 80 16 30 09/21/19 09:00 133/69 09/21/19 08:39 Mechanical Ventilator 10.0 Mechanical Ventilator 09/21/19 08:37 97.6 85 14 133/69 (90) 98 09/21/19 08:36 30 09/21/19 08:00 86 09/21/19 07:20 87 18 30 09/21/19 05:13 89 19 30 09/21/19 04:00 89 09/21/19 04:00 97.5 89 18 132/71 (91) 99 09/21/19 04:00 Mechanical Ventilator 10.0 Mechanical Ventilator 09/21/19 04:00 30 09/21/19 03:15 88 17 30 09/21/19 01:14 83 18 30 09/21/19 00:00 97.7 85 18 142/64 (90) 99 09/21/19 00:00 30 09/21/19 00:00 Mechanical Ventilator 10.0 Mechanical Ventilator 09/20/19 23:57 85 09/20/19 23:26 85 17 30 09/20/19 20:00 30 09/20/19 20:00 86 09/20/19 20:00 98.3 78 14 149/68 (95) 98 09/20/19 20:00 Mechanical Ventilator 10.0 Mechanical Ventilator 09/20/19 19:23 87 21 30 09/20/19 16:54 86 17 30 09/20/19 16:00 Mechanical Ventilator 10.0 Mechanical Ventilator 09/20/19 16:00 30 09/20/19 16:00 97.9 90 14 137/66 (89) 98 09/20/19 15:14 83 09/20/19 14:59 89 20 30 Intake and Output 09/21/19 09/22/19 19:00 07:00 Intake Total 735 ml 1610 ml Output Total 1000 ml 1200 ml Balance -265 ml 410 ml Free Water 200 ml IV Total 75 ml 750 ml Tube Feeding 660 ml 660 ml Output Urine Total 1000 ml 1200 ml # Bowel Movements 2 Labs Test 09/20/19 07:20 09/21/19 10:35 09/22/19 04:00 White Blood Count 9.8 K/UL (4.8-10.8) 7.4 K/UL (4.8-10.8) 7.8 K/UL (4.8-10.8) Red Blood Count 3.22 M/UL (4.70-6.10) 3.02 M/UL (4.70-6.10) 2.92 M/UL (4.70-6.10) Hemoglobin 10.0 G/DL (14.2-18.0) 9.3 G/DL (14.2-18.0) 9.0 G/DL (14.2-18.0) Hematocrit 29.4 % (42.0-52.0) 27.7 % (42.0-52.0) 26.4 % (42.0-52.0) Mean Corpuscular Volume 91 FL (80-99) 92 FL (80-99) 91 FL (80-99) Mean Corpuscular Hemoglobin 31.0 PG (27.0-31.0) 30.9 PG (27.0-31.0) 30.9 PG (27.0-31.0) Mean Corpuscular Hemoglobin Concent 33.9 G/DL (32.0-36.0) 33.7 G/DL (32.0-36.0) 34.1 G/DL (32.0-36.0) Red Cell Distribution Width 13.7 % (11.6-14.8) 13.2 % (11.6-14.8) 13.3 % (11.6-14.8) Platelet Count 234 K/UL (150-450) 204 K/UL (150-450) 229 K/UL (150-450) Mean Platelet Volume 6.0 FL (6.5-10.1) 6.7 FL (6.5-10.1) 5.7 FL (6.5-10.1) Neutrophils (%) (Auto) 71.8 % (45.0-75.0) 60.6 % (45.0-75.0) 58.0 % (45.0-75.0) Lymphocytes (%) (Auto) 16.8 % (20.0-45.0) 24.8 % (20.0-45.0) 29.7 % (20.0-45.0) Monocytes (%) (Auto) 7.4 % (1.0-10.0) 8.0 % (1.0-10.0) 6.6 % (1.0-10.0) Eosinophils (%) (Auto) 3.2 % (0.0-3.0) 5.7 % (0.0-3.0) 5.1 % (0.0-3.0) Basophils (%) (Auto) 0.8 % (0.0-2.0) 1.0 % (0.0-2.0) 0.6 % (0.0-2.0) Sodium Level 136 MMOL/L (136-145) 136 MMOL/L (136-145) 134 MMOL/L (136-145) Potassium Level 4.9 MMOL/L (3.5-5.1) 4.6 MMOL/L (3.5-5.1) 4.4 MMOL/L (3.5-5.1) Chloride Level 101 MMOL/L (98-107) 101 MMOL/L (98-107) 100 MMOL/L (98-107) Carbon Dioxide Level 32 MMOL/L (21-32) 30 MMOL/L (21-32) 28 MMOL/L (21-32) Anion Gap 3 mmol/L (5-15) 5 mmol/L (5-15) 6 mmol/L (5-15) Blood Urea Nitrogen 26 mg/dL (7-18) 19 mg/dL (7-18) 18 mg/dL (7-18) Creatinine 0.7 MG/DL (0.55-1.30) 0.6 MG/DL (0.55-1.30) 0.6 MG/DL (0.55-1.30) Estimat Glomerular Filtration Rate > 60 mL/min (>60) > 60 mL/min (>60) > 60 mL/min (>60) Glucose Level 110 MG/DL (74-106) 132 MG/DL (74-106) 139 MG/DL (74-106) Calcium Level 9.2 MG/DL (8.5-10.1) 8.3 MG/DL (8.5-10.1) 8.0 MG/DL (8.5-10.1) Phosphorus Level 3.6 MG/DL (2.5-4.9) Magnesium Level 1.9 MG/DL (1.8-2.4) Total Bilirubin 0.3 MG/DL (0.2-1.0) Aspartate Amino Transf (AST/SGOT) 20 U/L (15-37) Alanine Aminotransferase (ALT/SGPT) 34 U/L (12-78) Alkaline Phosphatase 78 U/L (46-116) Total Protein 5.2 G/DL (6.4-8.2) Albumin 2.1 G/DL (3.4-5.0) Globulin 3.1 g/dL Albumin/Globulin Ratio 0.7 (1.0-2.7) Height (Feet): 5 Height (Inches): 5.00 Weight (Pounds): 211 Objective Physical Exam Vitals: reviewed General Appearance: no apparent distress EENT: other - Remains intubated and on ventilator ++ trach Cardiovascular: normal rate Respiratory/Chest: decreased breath sounds Abdomen: gt+ [place] MD Sep 22, 2019 14:17
[2019-09-22 16:00] VITALS: BP 143/68
[2019-09-22 20:00] VITALS: BP 125/69
[2019-09-22] MEDS: Dyna-Hex 2% Top Sol 2oz TOPIC SCH (20:41)
[2019-09-23] VITALS: BP 120/63
[2019-09-23 04:00] VITALS: BP 127/60
--- NOTE | 2019-09-23 04:30 | Progress Note ---
DATE: 09/22/2019 SUBJECTIVE: Patient is afebrile and hemodynamically stable. PHYSICAL EXAMINATION: VITAL SIGNS: Blood pressure 125/69, pulse is 77, respirations 22, temperature is 98.5. HEENT: Eyes were normal. ENT, mucous membranes were moist and intact. NECK: Supple with no JVD without lymph nodes. Tracheostomy site is clean. LUNGS: Clear without rhonchi, rales, or wheezing. HEART: Normal sounds with regular beats. There is no tachycardia at rest. ABDOMEN: Soft, nontender, with normal bowel sounds. Gastrostomy site is clean. EXTREMITIES: Warm without cyanosis, clubbing, or edema. LABORATORY DATA: Hemoglobin is 9.0, hematocrit 26.4 with MCV of 91, WBC of 7.8, and platelets are 229. His BUN and creatinine are 18 and 0.6 respectively. Sodium is 134, potassium 4.4, chloride 100, CO2 is 28. IMPRESSION: Patient is in stable condition. He is waiting to be accepted to the subacute unit for the time being. He was rejected from 2 different subacute units. Repeat laboratory tests will be done in the a.m. Modesta Mulligan M.D. DR: CAROL JOB#: [id number] CC:
--- NOTE | 2019-09-23 06:18 | Hematology/Onc Progress Note ---
Assessment/Plan Assessment/Plan # Anemia of chronic disease due to underlying chronic medical issues, multifactorial v Gi bleed --> Anemia workup has been ordered, rule out gi bleed --> No evidence of hemolysis is noted, peripheral smear has been reviewed. --> Hgb goal >7. Transfuse prn. --> Epogen or iron at this time is not particularly indicated --> Medications have been reviewed --> low threshold for gi evaluation in case has occult + --> hgb trend 9.4-->10->9.7-->10.4-->9.6 -->9 # Leukocytosis with recentl hx Developing PNA --> on abx colisitn-->bactrim --> as per id recs --> covid 19 negative # Respiratory failure is now s/p trach placed 09/10 --> s/p multple intubations and extubations --> S/p trach --> as per surg recs # Sepsis s/p Pneumonia (probable asp), Sp RX --> id aware # Hypomagnesemia. --> replete with mg as per nenal # paroxysmal atrial fibrillation. --> hold off on anticoag --> on plavix # Acute on chronic diastolic congestive heart failure mostly clinically compensated. --> as per cards recs # Severe protein-calorie malnutrition. 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 --> as per cards # Dvt ppx heparin sq Appreciate consultation and candida Rn Subjective HEENT: Denies: no symptoms, eye pain, blurred vision, tearing, double vision, ear pain, ear discharge, nose pain, nose congestion, throat pain, throat swelling, mouth pain, mouth swelling, other Cardiovascular: Denies: no symptoms, chest pain, edema, irregular heart rate, lightheadedness, palpitations, syncope, other Respiratory: Denies: no symptoms, cough, shortness of breath, SOB with excertion, SOB at rest, sputum, wheezing, other Gastrointestinal/Abdominal: Denies: no symptoms, abdomen distended, abdominal pain, black stools, tarry stools, blood in stool, constipated, diarrhea, difficulty swallowing, nausea, poor appetite, poor fluid intake, rectal bleeding , vomiting, other Genitourinary: Denies: no symptoms, burning, discharge, frequency, flank pain, hematuria, incontinence, pain, urgency, other Neurologic/Psychiatric: Denies: no symptoms, anxiety, depressed, emotional problems, headache, numbness, paresthesia, pre-existing deficit, seizure, tingling, tremors, weakness, other Hematologic/Lymphatic: Denies: no symptoms, anemia, easy bleeding, easy bruising, adenopathy, other Allergies: Coded Allergies: No Known Allergies (Unverified , 06/03/17) Subjective 09/10 no events, is tolerating trach well, labs noted 09/[address], off plavix, for peg this /sun, hgb 10 09/16 for egd with peg as per gi, labs noted 09/17 s/p peg, on gtube feeds, hgb is better 09/18 sdu, covid results pending, sodium 135, on gt bactrim 09/20 covid 19 negative, vent, no acute distress 09/21 no bleeding, labs have been reviewed, hgb 9 09/22 no night sweats, no fc, labs noted, no mjaor events Objective Objective Current Medications Medications (Trade) Dose Ordered Sig/Amaris Route PRN Reason Start Time Stop Time Status Last Admin Dose Admin Acetaminophen (Tylenol) 650 mg Q4H PRN NG MILD PAIN/T>100.4 09/11/19 17:00 10/01/19 16:59 Amiodarone HCl (Cordarone) 200 mg DAILY GT 09/19/19 09:00 11/30/19 10:21 09/22/19 08:43 Chlorhexidine Gluconate (Kamila-Hex 2%) 1 applic DAILY@1999 TOPIC 09/18/19 20:00 12/17/19 19:59 09/22/19 20:41 Clopidogrel Bisulfate (Plavix) 75 mg DAILY GT 09/18/19 09:00 10/18/19 08:59 09/22/19 08:42 Heparin Sodium (Porcine) (Heparin 5000 units/ml) 5,000 units EVERY 12 HOURS SUBQ 09/11/19 21:00 10/16/19 10:22 09/22/19 20:42 Hydralazine HCl (Apresoline) 25 mg Q6H PRN GT SBP above 160 09/19/19 09:00 12/10/19 08:59 Lisinopril (PriniviL) 20 mg DAILY NG 09/15/19 09:00 10/15/19 08:59 09/22/19 08:43 Pantoprazole (Protonix) 40 mg EVERY 12 HOURS IVP 09/11/19 21:00 10/01/19 10:22 09/22/19 20:42 Sodium Chloride 1,000 ml @ 75 mls/hr [id number] IV 09/18/19 07:45 10/18/19 07:44 09/22/19 17:08 Last 24 Hour Vital Signs Date Time Temp Pulse Resp B/P (MAP) Pulse Ox O2 Delivery O2 Flow Rate FiO2 09/23/19 05:30 77 18 30 09/23/19 04:00 77 09/23/19 04:00 30 09/23/19 03:17 81 17 30 09/23/19 00:00 30 09/23/19 00:00 77 09/23/19 00:00 Mechanical Ventilator 10.0 Mechanical Ventilator 09/23/19 00:00 98.0 74 18 120/63 (82) 97 09/22/19 23:15 79 16 30 09/22/19 20:00 Mechanical Ventilator 10.0 Mechanical Ventilator 09/22/19 20:00 98.5 77 22 125/69 (87) 96 09/22/19 20:00 30 09/22/19 20:00 76 09/22/19 19:26 77 15 30 09/22/19 16:00 Mechanical Ventilator 10.0 Mechanical Ventilator 09/22/19 16:00 30 09/22/19 16:00 98.1 89 20 143/68 (93) 96 09/22/19 15:34 76 09/22/19 15:10 77 19 30 09/22/19 12:00 97.8 79 15 145/75 (98) 99 09/22/19 12:00 Mechanical Ventilator 10.0 Mechanical Ventilator 09/22/19 12:00 30 09/22/19 11:49 80 09/22/19 11:10 83 18 30 09/22/19 08:43 129/60 09/22/19 08:00 98.1 83 14 129/60 (83) 97 09/22/19 08:00 Mechanical Ventilator 10.0 Mechanical Ventilator 09/22/19 08:00 30 09/22/19 07:45 82 09/22/19 07:02 86 18 30 09/22/19 04:00 Mechanical Ventilator 10.0 Mechanical Ventilator 09/22/19 04:00 98.4 83 17 135/78 (97) 98 09/22/19 04:00 81 09/22/19 04:00 30 09/22/19 03:02 80 17 30 09/22/19 00:00 30 09/22/19 00:00 76 09/22/19 00:00 Mechanical Ventilator 10.0 Mechanical Ventilator 09/22/19 00:00 98.6 83 17 137/87 (104) 99 09/21/19 23:18 73 14 30 09/21/19 20:00 30 09/21/19 20:00 97.9 76 17 142/65 (90) 99 09/21/19 20:00 77 09/21/19 20:00 Mechanical Ventilator 10.0 Mechanical Ventilator 09/21/19 19:48 81 14 30 09/21/19 16:00 80 09/21/19 16:00 97.5 88 14 132/61 (84) 98 09/21/19 16:00 30 09/21/19 16:00 Mechanical Ventilator 10.0 Mechanical Ventilator 09/21/19 15:20 76 18 30 09/21/19 12:00 97.7 81 14 137/65 (89) 97 09/21/19 12:00 30 09/21/19 12:00 Mechanical Ventilator 10.0 Mechanical Ventilator 09/21/19 12:00 89 09/21/19 11:20 80 16 30 09/21/19 09:00 133/69 09/21/19 08:39 Mechanical Ventilator 10.0 Mechanical Ventilator 09/21/19 08:37 97.6 85 14 133/69 (90) 98 09/21/19 08:36 30 09/21/19 08:00 86 09/21/19 07:20 87 18 30 Intake and Output 09/22/19 09/23/19 19:00 07:00 Intake Total 1410 ml 1480 ml Output Total 1000 ml Balance 410 ml 1480 ml Free Water 100 ml IV Total 600 ml 750 ml Tube Feeding 720 ml 600 ml Blood Product 90 ml Other 30 ml Output Urine Total 1000 ml # Bowel Movements 3 Labs Test 09/20/19 07:20 09/21/19 10:35 09/22/19 04:00 White Blood Count 9.8 K/UL (4.8-10.8) 7.4 K/UL (4.8-10.8) 7.8 K/UL (4.8-10.8) Red Blood Count 3.22 M/UL (4.70-6.10) 3.02 M/UL (4.70-6.10) 2.92 M/UL (4.70-6.10) Hemoglobin 10.0 G/DL (14.2-18.0) 9.3 G/DL (14.2-18.0) 9.0 G/DL (14.2-18.0) Hematocrit 29.4 % (42.0-52.0) 27.7 % (42.0-52.0) 26.4 % (42.0-52.0) Mean Corpuscular Volume 91 FL (80-99) 92 FL (80-99) 91 FL (80-99) Mean Corpuscular Hemoglobin 31.0 PG (27.0-31.0) 30.9 PG (27.0-31.0) 30.9 PG (27.0-31.0) Mean Corpuscular Hemoglobin Concent 33.9 G/DL (32.0-36.0) 33.7 G/DL (32.0-36.0) 34.1 G/DL (32.0-36.0) Red Cell Distribution Width 13.7 % (11.6-14.8) 13.2 % (11.6-14.8) 13.3 % (11.6-14.8) Platelet Count 234 K/UL (150-450) 204 K/UL (150-450) 229 K/UL (150-450) Mean Platelet Volume 6.0 FL (6.5-10.1) 6.7 FL (6.5-10.1) 5.7 FL (6.5-10.1) Neutrophils (%) (Auto) 71.8 % (45.0-75.0) 60.6 % (45.0-75.0) 58.0 % (45.0-75.0) Lymphocytes (%) (Auto) 16.8 % (20.0-45.0) 24.8 % (20.0-45.0) 29.7 % (20.0-45.0) Monocytes (%) (Auto) 7.4 % (1.0-10.0) 8.0 % (1.0-10.0) 6.6 % (1.0-10.0) Eosinophils (%) (Auto) 3.2 % (0.0-3.0) 5.7 % (0.0-3.0) 5.1 % (0.0-3.0) Basophils (%) (Auto) 0.8 % (0.0-2.0) 1.0 % (0.0-2.0) 0.6 % (0.0-2.0) Sodium Level 136 MMOL/L (136-145) 136 MMOL/L (136-145) 134 MMOL/L (136-145) Potassium Level 4.9 MMOL/L (3.5-5.1) 4.6 MMOL/L (3.5-5.1) 4.4 MMOL/L (3.5-5.1) Chloride Level 101 MMOL/L (98-107) 101 MMOL/L (98-107) 100 MMOL/L (98-107) Carbon Dioxide Level 32 MMOL/L (21-32) 30 MMOL/L (21-32) 28 MMOL/L (21-32) Anion Gap 3 mmol/L (5-15) 5 mmol/L (5-15) 6 mmol/L (5-15) Blood Urea Nitrogen 26 mg/dL (7-18) 19 mg/dL (7-18) 18 mg/dL (7-18) Creatinine 0.7 MG/DL (0.55-1.30) 0.6 MG/DL (0.55-1.30) 0.6 MG/DL (0.55-1.30) Estimat Glomerular Filtration Rate > 60 mL/min (>60) > 60 mL/min (>60) > 60 mL/min (>60) Glucose Level 110 MG/DL (74-106) 132 MG/DL (74-106) 139 MG/DL (74-106) Calcium Level 9.2 MG/DL (8.5-10.1) 8.3 MG/DL (8.5-10.1) 8.0 MG/DL (8.5-10.1) Phosphorus Level 3.6 MG/DL (2.5-4.9) Magnesium Level 1.9 MG/DL (1.8-2.4) Total Bilirubin 0.3 MG/DL (0.2-1.0) Aspartate Amino Transf (AST/SGOT) 20 U/L (15-37) Alanine Aminotransferase (ALT/SGPT) 34 U/L (12-78) Alkaline Phosphatase 78 U/L (46-116) Total Protein 5.2 G/DL (6.4-8.2) Albumin 2.1 G/DL (3.4-5.0) Globulin 3.1 g/dL Albumin/Globulin Ratio 0.7 (1.0-2.7) Height (Feet): 5 Height (Inches): 5.00 Weight (Pounds): 211 Objective Physical Exam Vitals: reviewed General Appearance: no apparent distress EENT: other - Remains intubated and on ventilator ++ trach Cardiovascular: normal rate Respiratory/Chest: decreased breath sounds Abdomen: gt+ [place] Bailey MD Sep 23, 2019 06:18
--- NOTE | 2019-09-23 07:29 | Progress Note ---
DATE: 09/22/2019 CARDIOLOGY PROGRESS NOTE SUBJECTIVE: The patient remains on mechanical ventilation via tracheostomy. Monitored rhythm sinus with short runs of atrial arrhythmia and atrial ectopy. PHYSICAL EXAMINATION: VITAL SIGNS: Blood pressure 129/60, pulse 83, respirations 14, afebrile. LUNGS: Bilateral breath sounds. Thin secretions. CARDIAC: Regular rhythm and rate. Normal S1, paradoxically split S2. ABDOMEN: Soft. EXTREMITIES: No edema. No change to review of systems from my initial assessment. LABORATORY DATA: White count 7.8, hemoglobin 9. Sodium 134, potassium 4.4, BUN 18, creatinine 0.6, bicarb 28. IMPRESSION: 1. Respiratory failure, status post trach. 2. Acute on chronic systolic and diastolic congestive heart failure. 3. Paroxysmal atrial fibrillation. 4. Ischemic cardiomyopathy. 5. Hypertensive heart disease with controlled blood pressure. 6. Chronic respiratory acidosis. 7. COPD. 8. Healthcare-acquired pneumonia, status post cardiopulmonary arrest x2. PLAN: Add antimicrobials. Weaning efforts. Await COVID swab. Periodic diuresis. Saeed Sim M.D. DR: RADHA JOB#: [id number] CC:
[2019-09-23 08:00] VITALS: BP 144/71
[2019-09-23] MEDS: Amiodarone 200mg tab GT SCH (08:53)
[2019-09-23] MEDS: Lisinopril 20mg tab NG SCH (08:53)
[2019-09-23] MEDS: Pantoprazole Inj IVP SCH (08:53)
[2019-09-23] MEDS: Heparin 5000 units/ml inj SUBQ SCH (08:59)
--- NOTE | 2019-09-23 09:23 | General Progress Note ---
Assessment/Plan Problem List: (1) UTI (urinary tract infection) ICD Codes: N39.0 - Urinary tract infection, site not specified SNOMED: 33557425 (2) Acute respiratory failure ICD Codes: J96.00 - Acute respiratory failure, unspecified whether with hypoxia or hypercapnia SNOMED: 11909827 (3) Upper respiratory infection ICD Codes: J06.9 - Acute upper respiratory infection, unspecified SNOMED: 39715587 (4) Dementia with behavioral disturbance ICD Codes: F03.91 - Unspecified dementia with behavioral disturbance SNOMED: 7061791593290 (5) Atrial fibrillation ICD Codes: I48.91 - Unspecified atrial fibrillation SNOMED: 78000262 (6) CAD (coronary artery disease) ICD Codes: I25.10 - Atherosclerotic heart disease of [place] coronary artery without angina pectoris SNOMED: 27117930 (7) COPD (chronic obstructive pulmonary disease) ICD Codes: J44.9 - Chronic obstructive pulmonary disease, unspecified SNOMED: 71652335 (8) History of hypertension ICD Codes: Z86.79 - Personal history of other diseases of the circulatory system SNOMED: 845831929 (9) Respiratory failure ICD Codes: J96.90 - Respiratory failure, unspecified, unspecified whether with hypoxia or hypercapnia SNOMED: 226321611 (10) DMII (diabetes mellitus, type 2) ICD Codes: E11.9 - Type 2 diabetes mellitus without complications SNOMED: 65190375 (11) Obesity (BMI 30.0-34.9) ICD Codes: E66.9 - Obesity, unspecified SNOMED: 641876686746653 (12) Anemia ICD Codes: D64.9 - Anemia, unspecified SNOMED: 295540092 Assessment/Plan: s/p PEG GTF GT care dc planning per primary team Subjective ROS Limited/Unobtainable: No Allergies: Coded Allergies: No Known Allergies (Unverified , 06/03/17) Objective Last 24 Hour Vital Signs Date Time Temp Pulse Resp B/P (MAP) Pulse Ox O2 Delivery O2 Flow Rate FiO2 09/23/19 08:53 144/71 09/23/19 08:00 97.0 81 14 144/71 (95) 99 09/23/19 07:31 30 09/23/19 07:28 Mechanical Ventilator 10.0 Mechanical Ventilator 09/23/19 05:30 77 18 30 09/23/19 04:00 98.2 77 20 127/60 (82) 97 09/23/19 04:00 77 09/23/19 04:00 Mechanical Ventilator 10.0 Mechanical Ventilator 09/23/19 04:00 30 09/23/19 03:17 81 17 30 09/23/19 00:00 30 09/23/19 00:00 77 09/23/19 00:00 Mechanical Ventilator 10.0 Mechanical Ventilator 09/23/19 00:00 98.0 74 18 120/63 (82) 97 09/22/19 23:15 79 16 30 09/22/19 20:00 Mechanical Ventilator 10.0 Mechanical Ventilator 09/22/19 20:00 98.5 77 22 125/69 (87) 96 09/22/19 20:00 30 09/22/19 20:00 76 09/22/19 19:26 77 15 30 09/22/19 16:00 Mechanical Ventilator 10.0 Mechanical Ventilator 09/22/19 16:00 30 09/22/19 16:00 98.1 89 20 143/68 (93) 96 09/22/19 15:34 76 09/22/19 15:10 77 19 30 09/22/19 12:00 97.8 79 15 145/75 (98) 99 09/22/19 12:00 Mechanical Ventilator 10.0 Mechanical Ventilator 09/22/19 12:00 30 09/22/19 11:49 80 09/22/19 11:10 83 18 30 Intake and Output 09/22/19 09/23/19 19:00 07:00 Intake Total 1410 ml 1820 ml Output Total 1000 ml 550 ml Balance 410 ml 1270 ml Free Water 200 ml IV Total 600 ml 900 ml Tube Feeding 720 ml 660 ml Blood Product 90 ml Other 60 ml Output Urine Total 1000 ml 550 ml # Bowel Movements 3 2 Height (Feet): 5 Height (Inches): 5.00 Weight (Pounds): 208 General Appearance: no apparent distress EENT: normal ENT inspection Neck: supple Cardiovascular: normal rate Respiratory/Chest: decreased breath sounds Abdomen: normal bowel sounds, non tender, soft Extremities: non-tender Valente Rosado MD Sep 23, 2019 09:23
[2019-09-23 12:00] VITALS: BP 141/68
--- NOTE | 2019-09-23 12:04 | Pulmonolgy Critical Care Note ---
Critical Care - Asmt/Plan Problems: (1) Acute respiratory failure Assessment & Plan: s/p trach (2) COPD (chronic obstructive pulmonary disease) (3) Atrial fibrillation Assessment & Plan: controlled (4) History of hypertension (5) Cardiopulmonary arrest (6) Cardiac LV ejection fraction 40% (7) DMII (diabetes mellitus, type 2) (8) Nosocomial pneumonia (9) Dementia with behavioral disturbance Respiratory: monitor respiratory rate, adjust FIO2, CXR Cardiac: continue pressors, stop pressors, continue to monitor HR/BP Infectious Disease: continue antibiotics Gastrointestinal: continue feedings/current rate Endocrine: check TSH, check HgA1C Hematologic: monitor H/H Neurologic: PRN Ativan Affect: PRN ativan Time Spent (Minutes): 40 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, 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, 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, [employer] - Objective Last 24 Hour Vital Signs Date Time Temp Pulse Resp B/P (MAP) Pulse Ox O2 Delivery O2 Flow Rate FiO2 09/23/19 08:53 144/71 09/23/19 08:00 97.0 81 14 144/71 (95) 99 09/23/19 07:51 77 09/23/19 07:31 30 09/23/19 07:28 Mechanical Ventilator 10.0 Mechanical Ventilator 09/23/19 05:30 77 18 30 09/23/19 04:00 98.2 77 20 127/60 (82) 97 09/23/19 04:00 77 09/23/19 04:00 Mechanical Ventilator 10.0 Mechanical Ventilator 09/23/19 04:00 30 09/23/19 03:17 81 17 30 09/23/19 00:00 30 09/23/19 00:00 77 09/23/19 00:00 Mechanical Ventilator 10.0 Mechanical Ventilator 09/23/19 00:00 98.0 74 18 120/63 (82) 97 09/22/19 23:15 79 16 30 09/22/19 20:00 Mechanical Ventilator 10.0 Mechanical Ventilator 09/22/19 20:00 98.5 77 22 125/69 (87) 96 09/22/19 20:00 30 09/22/19 20:00 76 09/22/19 19:26 77 15 30 09/22/19 16:00 Mechanical Ventilator 10.0 Mechanical Ventilator 09/22/19 16:00 30 09/22/19 16:00 98.1 89 20 143/68 (93) 96 09/22/19 15:34 76 09/22/19 15:10 77 19 30 Status: awake Condition: critical HEENT: atraumatic Neck: full ROM Lungs: clear Heart: HR/BP stable Abdomen: soft Extremities: edema Accucheck: 150 Critical Care - Subjective ROS Limited/Unobtainable: Yes Condition: critical EKG Rhythm: Sinus Rhythm FI02: 30 Vent Support Breath Rate: 14 Vent Support Mode: AC Vent Tidal Volume: 500 Sputum Amount: Small PEEP: 5.0 PIP: 31 Tube Feeding Amount: 60 I&O: Intake and Output 09/22/19 09/23/19 19:00 07:00 Intake Total 1410 ml 1820 ml Output Total 1000 ml 550 ml Balance 410 ml 1270 ml Free Water 200 ml IV Total 600 ml 900 ml Tube Feeding 720 ml 660 ml Blood Product 90 ml Other 60 ml Output Urine Total 1000 ml 550 ml # Bowel Movements 3 2 ET-Tube: 7.5 ET Position: 24 Nicole Graves MD Sep 23, 2019 12:04
--- NOTE | 2019-09-23 13:29 | Nephrology Progress Note ---
Assessment/Plan Problem List: (1) AUREA (acute kidney injury) Assessment: Serum creatinine rising (2) Cardiopulmonary arrest (3) Respiratory failure (4) Cardiomyopathy (5) Obesity (BMI 30.0-34.9) (6) DMII (diabetes mellitus, type 2) Assessment Acute Renal Failure : AUREA Most likely due to cardiorespiratory arrest and episode of hypotension. Patient also has cardiomyopathy with Ej Fx of 40 % on admission Obese : BMI 34.4 ? DM Other Dx (1) Cardiopulmonary arrest (2) Nosocomial pneumonia (3) Acute respiratory failure (4) COPD (chronic obstructive pulmonary disease) (5) Atrial fibrillation (6) Dementia with behavioral disturbance (7) CAD (coronary artery disease) Plan Discontinue potassium and IV fluid Had tracheostomy September 09 Today's labs reviewed D5 W IV fluids for hypernatremia as needed patient's condition somewhat more stable In [facility] Adjust blood pressure medications Previously Monitor renal parameters. Serum creatinine improved Monitor urine output. Urine output improved. Avoid nephrotoxics. Weaning as possible. Remains intubated at this time. Correct electrolyte imbalances. Change tube feeding to Glucerna. Subjective ROS Limited/Unobtainable: Yes Objective Objective Last 24 Hour Vital Signs Date Time Temp Pulse Resp B/P (MAP) Pulse Ox O2 Delivery O2 Flow Rate FiO2 09/23/19 08:53 144/71 09/23/19 08:00 97.0 81 14 144/71 (95) 99 09/23/19 07:51 77 09/23/19 07:31 30 09/23/19 07:28 Mechanical Ventilator 10.0 Mechanical Ventilator 09/23/19 05:30 77 18 30 09/23/19 04:00 98.2 77 20 127/60 (82) 97 09/23/19 04:00 77 09/23/19 04:00 Mechanical Ventilator 10.0 Mechanical Ventilator 09/23/19 04:00 30 09/23/19 03:17 81 17 30 09/23/19 00:00 30 09/23/19 00:00 77 09/23/19 00:00 Mechanical Ventilator 10.0 Mechanical Ventilator 09/23/19 00:00 98.0 74 18 120/63 (82) 97 09/22/19 23:15 79 16 30 09/22/19 20:00 Mechanical Ventilator 10.0 Mechanical Ventilator 09/22/19 20:00 98.5 77 22 125/69 (87) 96 09/22/19 20:00 30 09/22/19 20:00 76 09/22/19 19:26 77 15 30 09/22/19 16:00 Mechanical Ventilator 10.0 Mechanical Ventilator 09/22/19 16:00 30 09/22/19 16:00 98.1 89 20 143/68 (93) 96 09/22/19 15:34 76 09/22/19 15:10 77 19 30 Intake and Output 09/22/19 09/23/19 19:00 07:00 Intake Total 1410 ml 1820 ml Output Total 1000 ml 550 ml Balance 410 ml 1270 ml Free Water 200 ml IV Total 600 ml 900 ml Tube Feeding 720 ml 660 ml Blood Product 90 ml Other 60 ml Output Urine Total 1000 ml 550 ml # Bowel Movements 3 2 Height (Feet): 5 Height (Inches): 5.00 Weight (Pounds): 208 General Appearance: no apparent distress EENT: other - Intubated and vented Cardiovascular: normal rate Respiratory/Chest: decreased breath sounds Abdomen: distended Objective no change Yunior Sexton MD Sep 23, 2019 13:29
[2019-09-23 16:00] VITALS: BP 150/74
[2019-09-23] MEDS ORDERED: 1/2 NS 1000ml IV ONE (19:57)
--- NOTE | 2019-09-24 08:15 | Progress Note ---
DATE: 09/23/2019 CARDIOLOGY PROGRESS NOTE SUBJECTIVE: The patient's condition has improved. He is being transferred to a subacute facility. PHYSICAL EXAMINATION: Vitals are stable. Blood pressure, well controlled. Monitored rhythm, sinus. No bradyarrhythmias. Less frequent episodes of atrial arrhythmias. Exam unchanged. LABORATORY DATA: Labs reviewed. The patient will remain on amiodarone for suppression of paroxysmal atrial fibrillation. IMPRESSION: 1. Stabilized for subacute facility. 2. Status post full cardiopulmonary arrest x2. 3. Acute myocardial infarction with ischemic cardiomyopathy. 4. Compensated systolic and diastolic congestive heart failure. 5. Status post tracheostomy. 6. COPD with respiratory failure. PLAN: Discharge medication regimen has been reviewed and reconciled. Saeed Sim M.D. DR: RADHA JOB#: [id number] CC:
--- NOTE | 2019-09-24 09:00 | Discharge Summary ---
DATE OF ADMISSION: 07/21/2019 DATE OF DISCHARGE: 09/23/2019 This is one admissions to [facility] of this 79-year-old patient because of fever, shortness of breath, and tachycardia. HISTORY OF PRESENT ILLNESS: Details of the event and circumstances that led the patient to be admitted to this medical unit can be found in the H and P. In brief, the patient was a resident of an extended care facility where he has been in stable condition for the last several years. He is known to have several chronic medical syndromes, but has been stable on current medication. He developed fever, tachycardia, and shortness of breath. He was transferred to [facility] and suspected to have COVID-19 syndrome. He was admitted directly to the ICU. He initially required pressor support and was placed on broad-spectrum antibiotics. He had to be intubated and placed on mechanical ventilation. Over the next several weeks, the patient was treated for bilateral pneumonia and pleural effusion. His different broad-spectrum antibiotics that include vancomycin, meropenem, amikacin, Levaquin, as well as fluconazole IV. He is progressively improved, but remained intubated because of inability to take the patient off the respirator. Over the next several weeks, the patient was completely weaned from the ventilator and was decannulated and transferred out to the [facility]. However several days after being respirator independent, he developed again respiratory failure and had to be intubated and placed again on mechanical ventilation. This is the fourth episode of such event. Finally, it came up to be that the patient is not at the present time being weaned from mechanical ventilation. He underwent tracheostomy and gastrostomy and was transferred to the [facility]. Since he is transferred to the [facility], he is afebrile, hemodynamically stable with normal respiratory rate. He is attempting to remove the tracheostomy intermittently and requires restraints intermittently as well. He was rejected by multiple subacute units because of different reasons, but finally he is being transferred now to [facility] where he will be seen as of 24 hours after discharge. His midline will be removed. He is off antibiotics. In addition, he has high blood pressure, chronic encephalopathy, dementia, mood disorder, hyperlipidemia, hypogammaglobulinemia, hypervitaminosis D, COPD, and fatty liver. Modesta Mulligan M.D. DR: Joaquin JOB#: [id number] CC:
--- NOTE | 2019-09-24 12:13 | Discharge Summary ---
Discharge Summary Discharge Summary _ DISCHARGE SUMMARY (please refer to Dr Mulligan dc summary) FINAL DIAGNOSIS Status post cardiopulmonary arrest x2 Acute hypoxemic respiratory failure requiring intubation with multiply reintubation Failure to wean Status post tracheostomy 09/09 Sepsis with shock Pneumonia , likely aspiration pneumonia UTI with Klebsiella Acute myocardial infarction with ischemic cardiomyopathy Acute kidney injury -resolved Suspected COVID 19 infection - ruled out Cardiomyopathy with EF 40% Acute on chronic systolic and diastolic congestive heart failure Paroxysmal atrial fibrillation CAD Hypertensive heart disease COPD Dysphagia Status post percutaneous endoscopic gastrostomy placement Severe protein calorie malnutrition Diabetes mellitus type 2 Anemia of chronic disease Dementia with behavioral disturbances Laura Cantu NP Sep 24, 2019 12:13
== END 2019-09-23 19:58 | DRG 5 ==
LOC: EDBD 10:37 → EMR 11:00 → 2E 13:28 → EDBEDREQ 15:32 → 2W 07-23 17:35 → 2E 07-29 18:51 → SDSOVERFLO 07-31 10:18 → 2E 07-31 10:19 → ICU 07-31 21:38 → 2W 08-16 20:32 → ICU 08-18 09:05 → 2W 08-31 18:50 → ICU 09-01 08:28 → 2W 09-11 16:30
PROC: 5A1955Z Respiratory Ventilation, Greater than 96 Consecutive Hours (ICD-10-PCS; principal; 2019-07-31)
PROC: 0BH17EZ Insertion of Endotracheal Airway into Trachea, Via Natural or Artificial Opening (ICD-10-PCS; 2019-07-31)
PROC: 5A12012 Performance of Cardiac Output, Single, Manual (ICD-10-PCS; 2019-07-31)
PROC: 06HM33Z Insertion of Infusion Device into Right Femoral Vein, Percutaneous Approach (ICD-10-PCS; 2019-08-18)
PROC: 0B110F4 Bypass Trachea to Cutaneous with Tracheostomy Device, Open Approach (ICD-10-PCS; 2019-09-10)
PROC: 0DH63UZ Insertion of Feeding Device into Stomach, Percutaneous Approach (ICD-10-PCS; 2019-09-17)
DX: J44.0 Chronic obstructive pulmonary disease with (acute) lower respiratory infection (principal); I21.4 Non-ST elevation (NSTEMI) myocardial infarction; A41.9 Sepsis, unspecified organism; J69.0 Pneumonitis due to inhalation of food and vomit; N30.90 Cystitis, unspecified without hematuria; J20.9 Acute bronchitis, unspecified; I48.0 Paroxysmal atrial fibrillation; E87.0 Hyperosmolality and hypernatremia; E86.0 Dehydration; I11.0 Hypertensive heart disease with heart failure; I50.43 Acute on chronic combined systolic (congestive) and diastolic (congestive) heart failure; R65.21 Severe sepsis with septic shock; J96.00 Acute respiratory failure, unspecified whether with hypoxia or hypercapnia; I46.8 Cardiac arrest due to other underlying condition; Z87.891 Personal history of nicotine dependence; J96.01 Acute respiratory failure with hypoxia; E78.5 Hyperlipidemia, unspecified; I25.10 Atherosclerotic heart disease of native coronary artery without angina pectoris; F03.91 Unspecified dementia, unspecified severity, with behavioral disturbance; N17.9 Acute kidney failure, unspecified; R13.10 Dysphagia, unspecified; G92 Toxic encephalopathy; I50.33 Acute on chronic diastolic (congestive) heart failure; E11.9 Type 2 diabetes mellitus without complications; D63.8 Anemia in other chronic diseases classified elsewhere; B96.1 Klebsiella pneumoniae [K. pneumoniae] as the cause of diseases classified elsewhere; F39 Unspecified mood [affective] disorder; D80.1 Nonfamilial hypogammaglobulinemia; I25.5 Ischemic cardiomyopathy; E66.9 Obesity, unspecified; Z68.30 Body mass index [BMI] 30.0-30.9, adult; I45.4 Nonspecific intraventricular block; R00.1 Bradycardia, unspecified; I16.0 Hypertensive urgency; E83.42 Hypomagnesemia
CPT/HCPCS: 36415; 36569; 36600; 71045; 74018; 76700; 76937; 80048; 80053; 80061; 80076; 80202; 80307; 81001; 81003; 82150; 82550; 82553; 82728; 82803; 82962; 82977; 83036; 83540; 83550; 83605; 83690; 83735; 83880; 83935; 84100; 84300; 84443; 84484; 84550; 85007; 85025; 85610; 85651; 85730; 86140; 86703; 86710; 86803; 87040; 87070; 87081; 87086; 87181; 87205; 87517; 87635; 92950; 93005; 93306; 94002; 94003; 94150; 94640; 94660; 94664; 96365; 99285; J0171; J0282; J2405; J3490; J7030; J7620; J8499